=== PATIENT | male | born 1955 | race Caucasian/White ===

== ENCOUNTER 2015-10-15 21:12 | Inpatient (IN) | payer MEDICAID, OTHER ==
[~2015-10-15] VITALS: Ht 188 cm; Wt 82.5 kg
[~2015-10-15 21:12] MED LIST: ATOR80TA41 PO; CARV6.25 PO; CEPH500C3 PO; CLIN150 PO; ECASA81 PO; ENAL5 PO; FURO20 PO; ISOS60 PO; KCL20 PO; LACT PO; LEVEMIR SQ; MAGN400 PO; TICA90 PO
[2015-10-15 21:17] VITALS: BP 162/108; PULSE 96; RESP 18; TEMP 97.8; O2SAT 98
[2015-10-15] MEDS ORDERED: SODIUM CHLOR 0.9% 1000 ML INJ 1,000 ML IV SCH ×2 (21:20→23:30)
[2015-10-15 21:25] VITALS: O2SAT 100
[2015-10-15 21:26] VITALS: RESP 18; O2SAT 99
[2015-10-15] MEDS ORDERED: SODIUM CHLORIDE 0.9% FLUSH 5 ML FLUSH IVF PRN (21:30)
[2015-10-15 21:33] LABS: BLOOD GAS BASE EXCESS -1.2 mmol/L (-2-2); BLOOD GAS CARBOXYHEMOGLOBIN 1.5 % (0-4); BLOOD GAS HCO3 23 mmol/L (22-26); BLOOD GAS METHEMOGLOBIN 1.9 % (0-2); BLOOD GAS O2 HGB SATURATION 94 % (90-100); BLOOD GAS OXYGEN CONTENT 14.5 Vol % (12.0-20.0); BLOOD GAS PCO2 37 mmHg (38-42); BLOOD GAS PO2 86 mmHG (61-120); BLOOD GAS TOTAL HGB 10.9 G/DL (12.0-16.0); CRITICAL VALUE NO; DRAW SITE RT RADIAL; LITER FLOW 2 L/M; NUMBER OF ARTERIAL PUNCTURES 1; OXYGEN DEVICE NASAL CANNULA; STAT YES; TEMP CORR TO 98.6; ULNAR PULSE PRESENT
[2015-10-15 21:43] LABS: BASOPHIL # 0.1 TH/MM3 (0-0.2); BASOPHIL % 0.5 % (0.0-2.0); EOSINOPHIL # 0.2 TH/MM3 (0-0.4); EOSINOPHIL % 2.4 % (0.0-4.0); HEMATOCRIT 32.4 % (39.0-51.0); HEMO FLAGS DIFF FINAL; LYMPH % 8.6 % (9.0-44.0); LYMPHOCYTE # 0.9 TH/MM3 (1.0-4.8); MEAN CORPUSCULAR HEMOGLOBIN 26.7 PG (27.0-34.0); MEAN CORPUSCULAR HGB CONC 31.8 % (32.0-36.0); MONO % 8.9 % (0.0-8.0); NEUT % 79.6 % (16.0-70.0); PLATELET COUNT 168 TH/MM3 (150-450); RED BLOOD COUNT 3.86 MIL/MM3 (4.50-5.90); RED CELL DISTRIBUTION WIDTH 15.1 % (11.6-17.2)
[2015-10-15 21:53] LABS: INTERNATIONAL NORMALIZED RATIO 1.3 RATIO; PROTHROMBIN TIME - PATIENT 13.1 SEC (9.8-11.4)
--- NOTE | 2015-10-15 21:53 | RADRPT ---
EXAM DATE/TIME: 10/15/2015 21:36 [facility] COMPARISON: CHEST SINGLE AP, September 12, 2015, 3:05. INDICATIONS : Shortness of breath. MEDICAL HISTORY : Cardiovascular disease. Congestive heart failure. Hypertension SURGICAL HISTORY : CABG. ENCOUNTER: Initial ACUITY: 1 day PAIN SCORE: 0/10 LOCATION: Bilateral chest FINDINGS: Moderate severity cardiomegaly is similar to prior examination. There is indistinctness of the centr al bronchopulmonary markings and some peribronchial thickening. No focal areas of consolidation is s een. Both hemidiaphragms are well delineated. Evidence of prior median sternotomy with displacement and discontinuity of the superior sternal wire suture. CONCLUSION: Stable cardiomegaly. Engorgement of the central bronchopulmonary markings suggests possible pulmonar y venous hypertension. No consolidative infiltrates seen. Daryl Varner MD on October 15, 2015 at 21:50 Board Certified Radiologist. This report was verified electronically.
--- NOTE | 2015-10-15 21:54 | PD ---
HPI Chief Complaint: Altered Mental Status Time Seen by Provider: 21:21 Travel History International Travel<30 days: No Contact w/Intl Traveler<30days: No Traveled to known affect area: No History of Present Illness HPI This is a 60 years old male with unknown past medical history who presents today by [facility] with complaint of altered mental status after he was found on the floor in the house by family member. Per [facility] report patient's GCS was 14 on arrival. After patient received oxygen and IV fluids he seems to improve to GCS of 15. The [facility] noted that the patient lives in very poor home environment. Strong urine smell present. Per family members patient was found on the floor next to the liter box 1 hour prior to EMS arrival. On arrival patient was awake and alert. Patient and family members are unable to specifically state how long patient being on the floor. On my evaluation patient appears awake and alert but not oriented. He does not remember the time or the mechanism of the fall. Patient denies pain. He appears to be short of breath with Kussmaul type breathing. However patient denies difficulty breathing. Per EMS report BG [id number], rest of the vital signs stable. 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 Left lower extremity with ulcer and skin bullae present, appears infected. No fevers on initial evaluation. Patient has mid chest scar possibly from previous cardiac surgery. No trauma to the head. PFSH Past Medical History Arthritis: No Asthma: No Anxiety: No Depression: No Heart Rhythm Problems: No Cancer: No Cardiovascular Problems: Yes (HTN) High Cholesterol: Yes Chest Pain: Yes Congestive Heart Failure: Yes COPD: No Cerebrovascular Accident: No Coronary Artery Disease: Yes Diabetes: Yes Diminished Hearing: No Endocrine: Yes GERD: No Genitourinary: Yes Hepatitis: No Hiatal Hernia: No Hypertension: Yes Immune Disorder: No Implanted Vascular Access Dvce: Yes Kidney Stones: Yes Musculoskeletal: No Neurologic: No Psychiatric: No Reproductive: No Respiratory: Yes Migraines: No Myocardial Infarction: Yes Renal Failure: No Seizures: No Sleep Apnea: No Thyroid Disease: No Past Surgical History Abdominal Surgery: No AICD: No Arteriovenous Shunt: No Body Medical Devices: PLASTIC IN THROAT,STERNAL WIRES Cardiac Surgery: Yes (cabg x4 2003,stent 2013) Coronary Artery Bypass Graft: Yes (x 4 02/01) Ear Surgery: No Endocrine Surgery: No Eye Surgery: No Genitourinary Surgery: No Gynecologic Surgery: No Insulin Pump: No Joint Replacement: No Neurologic Surgery: No Oral Surgery: Yes Pacemaker: No Thoracic Surgery: Yes Other Surgery: Yes (BKA right leg) Family History Family Hypercholesterolemia: Yes Social History Alcohol Use: No Tobacco Use: No Substance Use: No Allergies-Medications (Allergen,Severity, Reaction): Coded Allergies: Pen-Vee K (Verified Allergy, Severe, THROAT SWELLS, 09/12/15) Penicillin (Verified Allergy, Unknown, SWELLING, 09/12/15) Uncoded Allergies: aspartame (Adverse Reaction, Severe, severe nose bleed, 10/24/13) Reported Meds & Prescriptions Reported Meds & Active Scripts Active Lactinex (Lactobacillus Acidophilus) 1 Tab Tab 1 Tab PO BID 31 Days Lasix 20 Mg Tab (Furosemide) 20 Mg Tab 20 Mg PO BID@09,18 31 Days Lipitor 80 Mg Tab (Atorvastatin) 80 Mg Tab 80 Mg PO DAILY 31 Days Levemir (Insulin Detemir) Inj 10 Units SQ HS 31 Days Kcl 20 Meq Tab (Potassium Chloride) 20 Meq Tabcr 20 Meq PO BID 30 Days Mag-Ox 400 Mg Tab (Magnesium Oxide) 400 Mg Tab 400 Mg PO Q12HR 30 Days Vasotec 5 Mg Tab (Enalapril Maleate) 5 Mg Tab 2.5 Mg PO BID 30 Days Ecotrin (Aspirin) 81 Mg Tabec 81 Mg PO DAILY 30 Days Imdur 60 Mg (Isosorbide Mononitrate) 60 Mg Tabcr 60 Mg PO DAILY@07 30 Days Coreg 6.25 mg (Carvedilol) 6.25 Mg Tab 12.5 Mg PO Q12HR 30 Days Review of Systems ROS negative x 10: except as stated in HPI Physical Exam Narrative GENERAL: Awake, alert, semi-oriented. Very poor hygiene, strong urine smell present. Cat litter allover patient's body. Patient is in mild respiratory discomfort, he is having Kussmaul type breathing. Vital signs reviewed O2 98% on 2L oxygen. SKIN: No rashes, ecchymoses or lesions. Cool and dry. Mid chest vertical well healed scar. HEAD: Atraumatic. Normocephalic. No temporal or scalp tenderness. EYES: Pupils equal round and reactive. Extraocular motions intact. No scleral icterus. No injection or drainage. ENT: Nose without bleeding, purulent drainage or septal hematoma. Throat without erythema, tonsillar hypertrophy or exudate. Uvula midline. Airway patent. NECK: Trachea midline. No JVD or lymphadenopathy. Supple, nontender, no meningeal signs. CARDIOVASCULAR: Regular rate and rhythm without murmurs, gallops, or rubs. RESPIRATORY: Clear to auscultation. Breath sounds equal bilaterally. No wheezes , rales, or rhonchi. Heavy and fast lip breathing GASTROINTESTINAL: Abdomen obese, soft, non-tender, nondistended. No hepato- splenomegaly, or palpable masses. No guarding. MUSCULOSKELETAL: Right BKA; nonhealing open wound to anterior left lower extremity anterior johnson NEUROLOGICAL: Awake, alert, semi-oriented. He is able to state year and month, full name correctly. Unable to recall events leading to ER visit. Normal speech. Cranial nerves II-XII are grossly intact. Normal symmetrical facial movements, no facial droop. No arms drift or limbs ataxia. Normal finger to nose test bilateral. Pinprick tests normal to arms, legs and face. No dysarthria noted. Motor and sensory grossly within normal limits. Data Data Last Documented VS Vital Signs Date Time Temp Pulse Resp B/P Pulse Ox O2 Delivery O2 Flow Rate FiO2 10/15/15 21:26 18 99 Nasal Cannula 2 10/15/15 21:17 97.8 96 162/108 Orders Electrocardiogram (10/15/15 21:17) Complete Blood Count With Diff (10/15/15 21:17) Comprehensive Metabolic Panel (10/15/15 21:17) Creatine Kinase (Cpk) (10/15/15 21:17) Ckmb (Isoenzyme) Profile (10/15/15 21:17) Troponin I (10/15/15 21:17) Prothrombin Time / Inr (Pt) (10/15/15 21:17) Arterial Blood Gas (Abg) (10/15/15 21:17) Blood Culture (10/15/15 21:17) Urinalysis - C+S If Indicated (10/15/15 21:17) Thyroid Stimulating Hormone (10/15/15 21:17) Wound Culture And Gram Stain (10/15/15 21:17) Chest, Single Ap (10/15/15 21:17) Ct Brain W/O Iv Contrast(Rout) (10/15/15 21:17) Iv Access Insert/Monitor (10/15/15 21:17) Ecg Monitoring (10/15/15 21:17) Oxygen Administration (10/15/15 21:17) Oximetry (10/15/15 21:17) Lactic Acid (10/15/15 21:17) Sodium Chlor 0.9% 1000 Ml Inj (Ns 1000 M (10/15/15 21:20) Sodium Chloride 0.9% Flush (Ns Flush) (10/15/15 21:30) Cath For Specimen (10/15/15 21:21) CKMB (10/15/15 21:25) CKMB% (10/15/15 21:25) Labs Laboratory Tests Test 10/15/15 10/15/15 10/15/15 21:22 21:25 22:15 Blood Gas Puncture Site RT RADIAL Blood Gas Patient Temperature 98.6 Blood Gas HCO3 23 mmol/L Blood Gas Base Excess -1.2 mmol/L Blood Gas Oxygen Saturation 94 % Arterial Blood pH 7.41 Arterial Blood Partial 37 mmHg Pressure CO2 Arterial Blood Partial 86 mmHG Pressure O2 Arterial Blood Oxygen Content 14.5 Vol % Arterial Blood 1.5 % Carboxyhemoglobin Arterial Blood Methemoglobin 1.9 % Blood Gas Hemoglobin 10.9 G/DL Oxygen Delivery Device NASAL CANNULA Blood Gas Liter Flow 2 L/M White Blood Count 10.0 TH/MM3 Red Blood Count 3.86 MIL/MM3 Hemoglobin 10.3 GM/DL Hematocrit 32.4 % Mean Corpuscular Volume 84.0 FL Mean Corpuscular Hemoglobin 26.7 PG Mean Corpuscular Hemoglobin 31.8 % Concent Red Cell Distribution Width 15.1 % Platelet Count 168 TH/MM3 Mean Platelet Volume 8.4 FL Neutrophils (%) (Auto) 79.6 % Lymphocytes (%) (Auto) 8.6 % Monocytes (%) (Auto) 8.9 % Eosinophils (%) (Auto) 2.4 % Basophils (%) (Auto) 0.5 % Neutrophils # (Auto) 8.0 TH/MM3 Lymphocytes # (Auto) 0.9 TH/MM3 Monocytes # (Auto) 0.9 TH/MM3 Eosinophils # (Auto) 0.2 TH/MM3 Basophils # (Auto) 0.1 TH/MM3 CBC Comment DIFF FINAL Differential Comment Prothrombin Time 13.1 SEC Prothromb Time International 1.3 RATIO Ratio Sodium Level 147 MEQ/L Potassium Level 3.8 MEQ/L Chloride Level 113 MEQ/L Carbon Dioxide Level 25.6 MEQ/L Anion Gap 8 MEQ/L Blood Urea Nitrogen 22 MG/DL Creatinine 1.78 MG/DL Estimat Glomerular Filtration 39 ML/MIN Rate Random Glucose 157 MG/DL Lactic Acid Level 1.8 mmol/L Calcium Level 7.7 MG/DL Total Bilirubin 0.7 MG/DL Aspartate Amino Transf 25 U/L (AST/SGOT) Alanine Aminotransferase 19 U/L (ALT/SGPT) Alkaline Phosphatase 87 U/L Total Creatine Kinase 883 U/L Creatine Kinase MB 4.4 NG/ML Creatine Kinase MB % 0.5 % Troponin I 0.13 NG/ML Total Protein 6.1 GM/DL Albumin 2.8 GM/DL Thyroid Stimulating Hormone 2.720 uIU/ML 3rd Gen Urine Color YELLOW Urine Turbidity HAZY Urine pH 6.0 Urine Specific Bradley 1.027 Urine Protein 300 mg/dL Urine Glucose (UA) TRACE mg/dL Urine Ketones NEG mg/dL Urine Occult Blood MOD Urine Nitrite NEG Urine Bilirubin NEG Urine Urobilinogen LESS THAN 2.0 MG/DL Urine Leukocyte Esterase NEG Urine RBC 2 /hpf Urine WBC 2 /hpf Urine Squamous Epithelial 1 /hpf Cells Urine Calcium Oxalate Crystals FEW /hpf Urine Bacteria RARE /hpf Urine Hyaline Casts 10 /lpf Urine Mucus FEW /lpf Microscopic Urinalysis Comment CULT NOT INDICATED MDM Medical Decision Making Medical Screen Exam Complete: Yes Emergency Medical Condition: Yes Medical Record Reviewed: Yes Interpretation(s) Last Impressions Head CT 10/15/152116 Signed Impressions: Service Date/Time: September 21:47 - CONCLUSION: 1. No evidence of hemorrhage or mass effect. 2. Lacunar infarct right thalamus, left basal ganglia and adjacent to the left lateral ventricular body. 3. No skull fracture seen. Daryl Varner MD Chest X-Ray 10/15/152116 Signed Impressions: Service Date/Time: September 21:36 - CONCLUSION: Stable cardiomegaly. Engorgement of the central bronchopulmonary markings suggests possible pulmonary venous hypertension. No consolidative infiltrates seen. Daryl Varner MD Laboratory Tests Test 10/15/15 10/15/15 10/15/15 21:22 21:25 22:15 Blood Gas Puncture Site RT RADIAL Blood Gas Patient Temperature 98.6 Blood Gas HCO3 23 mmol/L Blood Gas Base Excess -1.2 mmol/L Blood Gas Oxygen Saturation 94 % Arterial Blood pH 7.41 Arterial Blood Partial 37 mmHg Pressure CO2 Arterial Blood Partial 86 mmHG Pressure O2 Arterial Blood Oxygen Content 14.5 Vol % Arterial Blood 1.5 % Carboxyhemoglobin Arterial Blood Methemoglobin 1.9 % Blood Gas Hemoglobin 10.9 G/DL Oxygen Delivery Device NASAL CANNULA Blood Gas Liter Flow 2 L/M White Blood Count 10.0 TH/MM3 Red Blood Count 3.86 MIL/MM3 Hemoglobin 10.3 GM/DL Hematocrit 32.4 % Mean Corpuscular Volume 84.0 FL Mean Corpuscular Hemoglobin 26.7 PG Mean Corpuscular Hemoglobin 31.8 % Concent Red Cell Distribution Width 15.1 % Platelet Count 168 TH/MM3 Mean Platelet Volume 8.4 FL Neutrophils (%) (Auto) 79.6 % Lymphocytes (%) (Auto) 8.6 % Monocytes (%) (Auto) 8.9 % Eosinophils (%) (Auto) 2.4 % Basophils (%) (Auto) 0.5 % Neutrophils # (Auto) 8.0 TH/MM3 Lymphocytes # (Auto) 0.9 TH/MM3 Monocytes # (Auto) 0.9 TH/MM3 Eosinophils # (Auto) 0.2 TH/MM3 Basophils # (Auto) 0.1 TH/MM3 CBC Comment DIFF FINAL Differential Comment Prothrombin Time 13.1 SEC Prothromb Time International 1.3 RATIO Ratio Sodium Level 147 MEQ/L Potassium Level 3.8 MEQ/L Chloride Level 113 MEQ/L Carbon Dioxide Level 25.6 MEQ/L Anion Gap 8 MEQ/L Blood Urea Nitrogen 22 MG/DL Creatinine 1.78 MG/DL Estimat Glomerular Filtration 39 ML/MIN Rate Random Glucose 157 MG/DL Lactic Acid Level 1.8 mmol/L Calcium Level 7.7 MG/DL Total Bilirubin 0.7 MG/DL Aspartate Amino Transf 25 U/L (AST/SGOT) Alanine Aminotransferase 19 U/L (ALT/SGPT) Alkaline Phosphatase 87 U/L Total Creatine Kinase 883 U/L Creatine Kinase MB 4.4 NG/ML Creatine Kinase MB % 0.5 % Troponin I 0.13 NG/ML Total Protein 6.1 GM/DL Albumin 2.8 GM/DL Thyroid Stimulating Hormone 2.720 uIU/ML 3rd Gen Urine Color YELLOW Urine Turbidity HAZY Urine pH 6.0 Urine Specific Bradley 1.027 Urine Protein 300 mg/dL Urine Glucose (UA) TRACE mg/dL Urine Ketones NEG mg/dL Urine Occult Blood MOD Urine Nitrite NEG Urine Bilirubin NEG Urine Urobilinogen LESS THAN 2.0 MG/DL Urine Leukocyte Esterase NEG Urine RBC 2 /hpf Urine WBC 2 /hpf Urine Squamous Epithelial 1 /hpf Cells Urine Calcium Oxalate Crystals FEW /hpf Urine Bacteria RARE /hpf Urine Hyaline Casts 10 /lpf Urine Mucus FEW /lpf Microscopic Urinalysis Comment CULT NOT INDICATED Differential Diagnosis Sepsis versus pneumonia versus CVA versus CHF exacerbation versus ACS versus dehydration versus electrolyte abnormalities versus intracranial abnormalities versus hypoglycemia versus rhabdomyolysis versus CKD versus UTI Narrative Course Per EMR review patient has history of diabetes, CHF, he is noncompliant with medications. He also was admitted in August of this year for the left lower extremity diabetic ulcer. Blood work initiated and includes CBC, CMP, CPK, lactic acid, blood cultures and ABG ordered. Wound cultures collected from the left lower extremity. Chest x-ray and CT head without IV contrast ordered. EKG showed sinus rhythm with ventricular rate 94, no ST elevations. ABG showed pH 7.4, carbon dioxide 37, otherwise normal. CBC revealed no leukocytosis WBC 10.0. Lactic acid 1.8. Coagulation panel unremarkable. Chest x-ray showed stable cardiomegaly, possible pulmonary hypertension. CT head with 3 areas of lacunar infarct, possibly old when compared to the previous imaging, otherwise no acute hemorrhage or mass. CPK elevated 883, troponin elevated 0.13. Creatinine seems to be at the patient 's baseline 1.78. I have discussed this case with my attending physician Dr. Momin who is aware of patient's history, findings and agreed with plan to admit patient to inpatient services for further evaluation. Admitting physician paged. Admitting Information Admitting Physician Requests: Admit Diagnosis: mild rabdo, elevated troponin, generalized weakness, fall Ameena Castillo Oct 15, 2015 21:54
[2015-10-15 22:07] LABS: ANION GAP 8 MEQ/L (5-15); AST (GOT) 25 U/L (15-37); BICARBONATE 25.6 MEQ/L (21.0-32.0); BLOOD UREA NITROGEN 22 MG/DL (7-18); CHLORIDE 113 MEQ/L (98-107); GLOMERULAR FILTRATION RATE 39 ML/MIN (>89); POTASSIUM 3.8 MEQ/L (3.5-5.1); SODIUM (NA) 147 MEQ/L (136-145)
[2015-10-15 22:17] LABS: ALKALINE PHOSPHATASE 87 U/L (45-117); ALT (GPT) 19 U/L (12-78); CREATINE KINASE 883 U/L (39-308); TOTAL BILIRUBIN ADULT 0.7 MG/DL (0.2-1.0)
--- NOTE | 2015-10-15 22:20 | RADRPT ---
EXAM DATE/TIME: 10/15/2015 21:47 [facility] COMPARISON: CT BRAIN W/O CONTRAST, December 18, 2014, 2:54. INDICATIONS : Fall last night. RADIATION DOSE: 50.12 CTDIvol (mGy) MEDICAL HISTORY : Hypertension. SURGICAL HISTORY : None. ENCOUNTER: Initial ACUITY: 1 day PAIN SCALE: 0/10 LOCATION: cranial TECHNIQUE: Multiple contiguous axial images were obtained of the head. Using automated exposure control and adj ustment of the mA and/or kV according to patient size, radiation dose was kept as low as reasonably a chievable to obtain optimal diagnostic quality images. FINDINGS: CEREBRUM: The ventricles and sulci are prominent characteristic of diffuse central and cortical atrophy, stable in severity from prior exam. There are 3 new focal areas of low density present, right medial thala mus, left basal ganglia and along the left margin of the body of the lateral ventricle causing ex vac uo enlargement of the ventricular wall; his findings suggest old infarctions which have occurred sinc e the prior examination November 2014. No evidence of acute blood products or mass effect. No extra-a xial fluid collections. POSTERIOR FOSSA: The cerebellum and brainstem are intact. The 4th ventricle is midline. The cerebellopontine angle i s unremarkable. EXTRACRANIAL: The visualized portion of the orbits is intact. Minimal mucosal thickening in both maxillary sinuses without air-fluid levels. The maxillary sinus disease is similar in appearance to prior CT. SKULL: The calvaria is intact. No evidence of skull fracture. CONCLUSION: 1. No evidence of hemorrhage or mass effect. 2. Lacunar infarct right thalamus, left basal ganglia and adjacent to the left lateral ventricular harman dy. 3. No skull fracture seen. Daryl Varner MD on October 15, 2015 at 22:14 Board Certified Radiologist. This report was verified electronically.
[2015-10-15 22:30] LABS: CKMB 4.4 NG/ML (0.5-3.6)
[2015-10-15 22:41] LABS: BACTERIA, URINE RARE /hpf; BLOOD, URINE MOD (NEG); CALCIUM OXALATE CRYSTALS,URINE FEW /hpf; COMMENT (UR) CULT NOT INDICATED; CULTURE IF INDICATED CULT NOT INDICATED; GLUCOSE,URINE TRACE mg/dL (NEG); HYALINE CAST, URINE 10 /lpf (RARE); KETONE, URINE NEG (NEG); MUCUS URINE FEW /lpf (OCC); NITRITE,URINE NEG (NEG); SQUAMOUS EPITHELIAL CELL URINE 1 /hpf (0-5); URINE COLOR YELLOW (YELLW/STRAW)
[2015-10-15 23:00] VITALS: BP 159/85; PULSE 95; RESP 18; O2SAT 93
[2015-10-15 23:19] LABS: MEAN CORPUSCULAR HGB CONC 30.7 % (32.0-36.0)
--- NOTE | 2015-10-15 23:24 | HHI.HP ---
HPI Service [facility] Primary Care Physician Unknown Admission Diagnosis mild rabdo, elevated troponin, generalized weakness, fall Diagnoses: Chief Complaint: Fall, confusion. Travel History International Travel<30 Days: No Contact w/Intl Traveler <30 Da: No Traveled to Known Affected Are: No History of Present Illness Mr. Amado is a 60 year old male with a history of ischemic cardiomyopathy (EF 35-40%), CABG, stent placement who was found on the floor by family members and subsequently brought to the ED for altered mental status. GCS 14 on arrival, improved to 15 with oxygen and IV fluids. Per EMS, patient's living condition at home is very poor. Patient is alert, oriented to self and place. He is unable to give any meaningful history. He denies any chest pain, SOB, fever, chills. On arrival, BP 162/108, RR 18, Pulse 96, T 97.8, 96-98% saturation on 2L of O2 via nasal cannula. CBC shows wbc 10, Hgb 10.3, Hct 32.4, Plt 168. BMP shows Na 147, K+ 3.8, BUN 22, Creatinine 1.78, Glucose 157, CPK 883, troponin 0.13. Head CT was unremarkable for acute findings. Cardiac history: - 12/18/2014 cardiac catheter status post stent placement 2.512 mm to proximal left circumflex - 04/30/2015 Echocardiogram EF 35-40% diffuse hypokinesis area Review of Systems ROS Limitations: Clinical Condition, Altered Mental Status (Reliable ROS cannot be obtained because patient is lethargic, drowsy. ) Past Family Social History Past Medical History Coronary artery disease Hypertension Hyperlipidemia Diabetes mellitus Congestive heart failure Obesity Peripheral arterial disease Obstructive sleep apnea Past Surgical History CABG 4 vessel Left kidney stent Patient had a trach as a child Right BKA Allergies: Coded Allergies: Pen-Vee K (Verified Allergy, Severe, THROAT SWELLS, 10/15/15) Penicillin (Verified Allergy, Unknown, SWELLING, 10/15/15) Uncoded Allergies: aspartame (Adverse Reaction, Severe, severe nose bleed, 10/24/13) Family History non contributory. Social History No tobacco, alcohol, drugs Physical Exam Vital Signs Vital Signs Date Time Temp Pulse Resp B/P Pulse Ox O2 Delivery O2 Flow Rate FiO2 10/15/15 23:00 95 18 159/85 93 Room Air 10/15/15 21:26 18 99 Nasal Cannula 2 10/15/15 21:25 98 Nasal Cannula 2 10/15/15 21:17 97.8 96 18 162/108 98 Physical Exam GENERAL: This is a well-nourished, well-developed patient, in no apparent distress. SKIN: No rashes, ecchymoses or lesions. Cool and dry. HEAD: Atraumatic. Normocephalic. No temporal or scalp tenderness. EYES: Pupils equal round and reactive. No scleral icterus. No injection or drainage. ENT: Nose without bleeding, purulent drainage or septal hematoma. Airway patent. NECK: Trachea midline. No JVD or lymphadenopathy. Supple, nontender, no meningeal signs. CARDIOVASCULAR: Regular rate and rhythm without murmurs, gallops, or rubs. RESPIRATORY: Clear to auscultation. Breath sounds equal bilaterally. No wheezes , rales, or rhonchi. GASTROINTESTINAL: Abdomen soft, non-tender, nondistended. No guarding. MUSCULOSKELETAL: Extremities without clubbing, cyanosis. Right BKA noted. Left lower ext with cellulitis, draining. NEUROLOGICAL: Awake and alert. Cranial nerves II through XII intact. No focal deficits. Normal speech. Laboratory Laboratory Tests Test 10/15/15 10/15/15 10/15/15 21:22 21:25 22:15 Blood Gas Puncture Site RT RADIAL Blood Gas Patient Temperature 98.6 Blood Gas HCO3 23 Blood Gas Base Excess -1.2 Blood Gas Oxygen Saturation 94 Arterial Blood pH 7.41 Arterial Blood Partial 37 Pressure CO2 Arterial Blood Partial 86 Pressure O2 Arterial Blood Oxygen Content 14.5 Arterial Blood 1.5 Carboxyhemoglobin Arterial Blood Methemoglobin 1.9 Blood Gas Hemoglobin 10.9 Oxygen Delivery Device NASAL CANNULA Blood Gas Liter Flow 2 White Blood Count 10.0 Red Blood Count 3.86 Hemoglobin 10.3 Hematocrit 32.4 Mean Corpuscular Volume 84.0 Mean Corpuscular Hemoglobin 26.7 Mean Corpuscular Hemoglobin 31.8 Concent Red Cell Distribution Width 15.1 Platelet Count 168 Mean Platelet Volume 8.4 Neutrophils (%) (Auto) 79.6 Lymphocytes (%) (Auto) 8.6 Monocytes (%) (Auto) 8.9 Eosinophils (%) (Auto) 2.4 Basophils (%) (Auto) 0.5 Neutrophils # (Auto) 8.0 Lymphocytes # (Auto) 0.9 Monocytes # (Auto) 0.9 Eosinophils # (Auto) 0.2 Basophils # (Auto) 0.1 CBC Comment DIFF FINAL Differential Comment Prothrombin Time 13.1 Prothromb Time International 1.3 Ratio Sodium Level 147 Potassium Level 3.8 Chloride Level 113 Carbon Dioxide Level 25.6 Anion Gap 8 Blood Urea Nitrogen 22 Creatinine 1.78 Estimat Glomerular Filtration 39 Rate Random Glucose 157 Lactic Acid Level 1.8 Calcium Level 7.7 Total Bilirubin 0.7 Aspartate Amino Transf 25 (AST/SGOT) Alanine Aminotransferase 19 (ALT/SGPT) Alkaline Phosphatase 87 Total Creatine Kinase 883 Creatine Kinase MB 4.4 Creatine Kinase MB % 0.5 Troponin I 0.13 Total Protein 6.1 Albumin 2.8 Thyroid Stimulating Hormone 2.720 3rd Gen Urine Color YELLOW Urine Turbidity HAZY Urine pH 6.0 Urine Specific [place] 1.027 Urine Protein 300 Urine Glucose (UA) TRACE Urine Ketones NEG Urine Occult Blood MOD Urine Nitrite NEG Urine Bilirubin NEG Urine Urobilinogen LESS THAN 2.0 Urine Leukocyte Esterase NEG Urine RBC 2 Urine WBC 2 Urine Squamous Epithelial 1 Cells Urine Calcium Oxalate Crystals FEW Urine Bacteria RARE Urine Hyaline Casts 10 Urine Mucus FEW Microscopic Urinalysis Comment CULT NOT INDICATED Date/Time Procedure Status Source Growth 10/15/15 21:40 Aerobic Blood Culture Received Blood Peripheral Pending 10/15/15 21:40 Anaerobic Blood Culture Received Blood Peripheral Pending 10/15/15 21:20 Gram Stain Received Wound Leg Pending 10/15/15 21:20 Wound Culture Received Wound Leg Pending Result Diagram: 10/15/15212410/15/152124 Imaging Last Impressions Head CT 10/15/152116 Signed Impressions: Service Date/Time: September 21:47 - CONCLUSION: 1. No evidence of hemorrhage or mass effect. 2. Lacunar infarct right thalamus, left basal ganglia and adjacent to the left lateral ventricular body. 3. No skull fracture seen. Daryl Varner MD Chest X-Ray 10/15/152116 Signed Impressions: Service Date/Time: September 21:36 - CONCLUSION: Stable cardiomegaly. Engorgement of the central bronchopulmonary markings suggests possible pulmonary venous hypertension. No consolidative infiltrates seen. Daryl Varner MD Assessment and Plan Problem List: (1) Altered mental status Status: Acute (2) Cellulitis Status: Acute (3) Non-ST elevation PR (NSTEMI) Status: Acute (4) Ischemic cardiomyopathy Status: Acute (5) Diabetes mellitus type 2 in obese Status: Acute (6) S/P BKA (below knee amputation) unilateral Status: Acute Assessment and Plan Mr. Amdao is a 60 year old male with a history of DM, ischemic cardiomyopathy who was brought to the hospital after he was unresponsive on the floor. CT head is unremarkable for any acute findings. Troponin 0.13. No chest pain. - Acute mental status change - Per ED, GCS improved to 15 with supportive treatments. - Patient is now alert, oriented to person and place. May benefit from placement. - Cellulitis of the left lower ext. - Purulent skin lesions on the left lower ext. - Will start patient on Vancomycin - pharmacy to dose. - NSTEMI - No chest pain. Likely due to non-cardiac reasons. We will follow two more troponins. - Diabetes mellitus - Long acting insulin and PRN sliding scale insulin. Full code. Heparin SQ. Physician Certification 2 Midnight Certification Type: Admission for Inpatient Services Order for Inpatient Services The services are ordered in accordance with Medicare regulations or non- Medicare payer requirements, as applicable. In the case of services not specified as inpatient-only, they are appropriately provided as inpatient services in accordance with the 2-midnight benchmark. Estimated LOS (days): 2 days is the estimated time the patient will need to remain in the hospital, assuming treatment plan goals are met and no additional complications. Post-Hospital Plan: Home Bacilio Carr DO Oct 15, 2015 23:24
[2015-10-15] MEDS ORDERED: ONDANSETRON HCL 4 MG/2 ML VIAL IVP PRN (23:30)
[2015-10-15] MEDS ORDERED: BISACODYL 10 MG SUPP PR PRN (23:30)
[2015-10-15] MEDS ORDERED: MAGNESIUM HYDROXIDE SUSP 30 ML CUP PO PRN (23:30)
[2015-10-15] MEDS ORDERED: SODIUM CHLORIDE 0.9% FLUSH 5 ML FLUSH FLUSH PRN (23:30)
[2015-10-15] MEDS ORDERED: NALOXONE HCL 0.4 MG/ML AMP IV PRN (23:30)
[2015-10-16] VITALS (9 sets, daily range): BP systolic 117–175; BP diastolic 67–104; PULSE 73–99; RESP 17–24; TEMP 96.2–98.4; O2SAT 96–100
--- NOTE | 2015-10-16 00:17 | PD ---
Physical Exam Date Seen by Provider: Oct 15, 2015 Narrative Please see physician emergency room physician assistant's documentation. Briefly this is a 60-year-old male who fell yesterday and unfortunately was on the floor until tonight. He presents via EMS. Data Data Last Documented VS Vital Signs Date Time Temp Pulse Resp B/P Pulse Ox O2 Delivery O2 Flow Rate FiO2 10/15/15 23:00 95 18 159/85 93 Room Air 10/15/15 21:26 2 10/15/15 21:17 97.8 Orders Electrocardiogram (10/15/15 21:17) Complete Blood Count With Diff (10/15/15 21:17) Comprehensive Metabolic Panel (10/15/15 21:17) Creatine Kinase (Cpk) (10/15/15 21:17) Ckmb (Isoenzyme) Profile (10/15/15 21:17) Troponin I (10/15/15 21:17) Prothrombin Time / Inr (Pt) (10/15/15 21:17) Arterial Blood Gas (Abg) (10/15/15 21:17) Blood Culture (10/15/15 21:17) Urinalysis - C+S If Indicated (10/15/15 21:17) Thyroid Stimulating Hormone (10/15/15 21:17) Wound Culture And Gram Stain (10/15/15 21:17) Chest, Single Ap (10/15/15 21:17) Ct Brain W/O Iv Contrast(Rout) (10/15/15 21:17) Iv Access Insert/Monitor (10/15/15 21:17) Ecg Monitoring (10/15/15 21:17) Oxygen Administration (10/15/15 21:17) Oximetry (10/15/15 21:17) Lactic Acid (10/15/15 21:17) Sodium Chlor 0.9% 1000 Ml Inj (Ns 1000 M (10/15/15 21:20) Sodium Chloride 0.9% Flush (Ns Flush) (10/15/15 21:30) Cath For Specimen (10/15/15 21:21) CKMB (10/15/15 21:25) CKMB% (10/15/15 21:25) Admit Order (Ed Use Only) (10/15/15 23:14) Labs Laboratory Tests Test 10/15/15 10/15/15 10/15/15 21:22 21:25 22:15 Blood Gas Puncture Site RT RADIAL Blood Gas Patient Temperature 98.6 Blood Gas HCO3 23 mmol/L Blood Gas Base Excess -1.2 mmol/L Blood Gas Oxygen Saturation 94 % Arterial Blood pH 7.41 Arterial Blood Partial 37 mmHg Pressure CO2 Arterial Blood Partial 86 mmHG Pressure O2 Arterial Blood Oxygen Content 14.5 Vol % Arterial Blood 1.5 % Carboxyhemoglobin Arterial Blood Methemoglobin 1.9 % Blood Gas Hemoglobin 10.9 G/DL Oxygen Delivery Device NASAL CANNULA Blood Gas Liter Flow 2 L/M White Blood Count 10.0 TH/MM3 Red Blood Count 3.86 MIL/MM3 Hemoglobin 10.3 GM/DL Hematocrit 32.4 % Mean Corpuscular Volume 84.0 FL Mean Corpuscular Hemoglobin 26.7 PG Mean Corpuscular Hemoglobin 31.8 % Concent Red Cell Distribution Width 15.1 % Platelet Count 168 TH/MM3 Mean Platelet Volume 8.4 FL Neutrophils (%) (Auto) 79.6 % Lymphocytes (%) (Auto) 8.6 % Monocytes (%) (Auto) 8.9 % Eosinophils (%) (Auto) 2.4 % Basophils (%) (Auto) 0.5 % Neutrophils # (Auto) 8.0 TH/MM3 Lymphocytes # (Auto) 0.9 TH/MM3 Monocytes # (Auto) 0.9 TH/MM3 Eosinophils # (Auto) 0.2 TH/MM3 Basophils # (Auto) 0.1 TH/MM3 CBC Comment DIFF FINAL Differential Comment Prothrombin Time 13.1 SEC Prothromb Time International 1.3 RATIO Ratio Sodium Level 147 MEQ/L Potassium Level 3.8 MEQ/L Chloride Level 113 MEQ/L Carbon Dioxide Level 25.6 MEQ/L Anion Gap 8 MEQ/L Blood Urea Nitrogen 22 MG/DL Creatinine 1.78 MG/DL Estimat Glomerular Filtration 39 ML/MIN Rate Random Glucose 157 MG/DL Lactic Acid Level 1.8 mmol/L Calcium Level 7.7 MG/DL Total Bilirubin 0.7 MG/DL Aspartate Amino Transf 25 U/L (AST/SGOT) Alanine Aminotransferase 19 U/L (ALT/SGPT) Alkaline Phosphatase 87 U/L Total Creatine Kinase 883 U/L Creatine Kinase MB 4.4 NG/ML Creatine Kinase MB % 0.5 % Troponin I 0.13 NG/ML Total Protein 6.1 GM/DL Albumin 2.8 GM/DL Thyroid Stimulating Hormone 2.720 uIU/ML 3rd Gen Urine Color YELLOW Urine Turbidity HAZY Urine pH 6.0 Urine Specific [place] 1.027 Urine Protein 300 mg/dL Urine Glucose (UA) TRACE mg/dL Urine Ketones NEG mg/dL Urine Occult Blood MOD Urine Nitrite NEG Urine Bilirubin NEG Urine Urobilinogen LESS THAN 2.0 MG/DL Urine Leukocyte Esterase NEG Urine RBC 2 /hpf Urine WBC 2 /hpf Urine Squamous Epithelial 1 /hpf Cells Urine Calcium Oxalate Crystals FEW /hpf Urine Bacteria RARE /hpf Urine Hyaline Casts 10 /lpf Urine Mucus FEW /lpf Microscopic Urinalysis Comment CULT NOT INDICATED MDM Medical Record Reviewed: Yes Differential Diagnosis EKG shows sinus rhythm with a rate of 94. No acute ST elevation CBC reviewed CMP reviewedelevated sodium, chloride, creatinine. Lactate within normal limits Total creatinine kinase elevated next line troponin 0.13 TSH within normal limits ABG reviewed Urinalysis reviewed Last [address] 10/15/152116 Signed Impressions: Service Date/Time: September 21:47 - CONCLUSION: 1. No evidence of hemorrhage or mass effect. 2. Lacunar infarct right thalamus, left basal ganglia and adjacent to the left lateral ventricular body. 3. No skull fracture seen. Daryl Varner MD Chest X-Ray 10/15/152116 Signed Impressions: Service Date/Time: September 21:36 - CONCLUSION: Stable cardiomegaly. Engorgement of the central bronchopulmonary markings suggests possible pulmonary venous hypertension. No consolidative infiltrates seen. Daryl Varner MD Narrative Course I, Dr. Momin, have reviewed the advance practice practitioner's documentation and am in agreement. I met with the patient face to face, made the diagnosis, and the medical decision making was done by me. *My assessment and Findings: This is a 60-year-old male who presents after falling and being on the floor for several hours. Patient was placed on a surveillance system monitor. IV access was established. Labs, imaging were performed. Patient was given IV fluid rehydration. He denies any chest pain or shortness of breath. He will certainly need to be admitted for further evaluation and care. Admitting Information Admitting Physician Requests: Admit Diagnosis: Mild Rhabdomyolysis, Elevated Troponin, General Weakness Ashley Momin MD Oct 16, 2015 00:17
[2015-10-16] MEDS ORDERED: ASPIRIN 325 MG TAB PO ONE (00:30)
[2015-10-16] MEDS ORDERED: hydrALAZINE HCL 20 MG/ML VIAL IV PUSH ONE (00:45)
[2015-10-16] MEDS ORDERED: SODIUM CHLOR 0.9% 1000 ML INJ 1,000 ML IV SCH (02:22)
[2015-10-16] MEDS ORDERED: Vancomycin Consult Pharmacy 1 EA XX SCH (02:30)
[2015-10-16] MEDS ORDERED: VANCOMYCIN 1,500 MG/NS 500 ML IV ONE (03:00)
[2015-10-16 03:45] LABS: AUTOMATED NEUTROPHIL # 8.4 TH/MM3 (1.8-7.7); BASOPHIL % 0.2 % (0.0-2.0); EOSINOPHIL # 0.2 TH/MM3 (0-0.4); EOSINOPHIL % 2.1 % (0.0-4.0); HEMATOCRIT 37.8 % (39.0-51.0); HEMO FLAGS DIFF FINAL; LYMPH % 6.1 % (9.0-44.0); LYMPHOCYTE # 0.6 TH/MM3 (1.0-4.8); MEAN CELL VOLUME 86.1 FL (80.0-100.0); MEAN CORPUSCULAR HEMOGLOBIN 26.5 PG (27.0-34.0); MONO % 8.1 % (0.0-8.0); NEUT % 83.5 % (16.0-70.0); PLATELET COUNT 160 TH/MM3 (150-450); RED BLOOD COUNT 4.39 MIL/MM3 (4.50-5.90); RED CELL DISTRIBUTION WIDTH 15.4 % (11.6-17.2); WHITE BLOOD COUNT 10.1 TH/MM3 (4.0-11.0)
[2015-10-16 04:16] LABS: BICARBONATE 18.5 MEQ/L (21.0-32.0); POTASSIUM 3.7 MEQ/L (3.5-5.1)
[2015-10-16] MEDS: ISOSORBIDE MONONITRATE 60 MG TAB PO SCH ×2 (06:31→08:56)
[2015-10-16] MEDS: HEPARIN SODIUM - SQ 10,000 UNITS/ML VIAL SQ SCH ×2 (08:56→23:33)
[2015-10-16] MEDS: SODIUM CHLORIDE 0.9% FLUSH 5 ML FLUSH FLUSH SCH ×2 (08:56→23:33)
[2015-10-16] MEDS: ASPIRIN EC 81 MG TABEC PO SCH (08:56)
[2015-10-16] MEDS: CARVEDILOL 12.5 MG TAB PO SCH ×2 (08:56→23:33)
[2015-10-16] MEDS: ATORVASTATIN 80 MG TAB PO SCH (08:56)
[2015-10-16] MEDS ORDERED: cefTRIAXone INJ 2,000 MG in SODIUM CHLORIDE 0.9% INJ 100 ML IV SCH (18:00)
--- NOTE | 2015-10-16 18:09 | EKG ---
Date Performed: 10/15/2015 Time Performed: 22:19:22 PTAGE: 60 years EKG: Sinus rhythm . Left anterior fascicular block IV conduction defect Possible septal infarct - age undetermined Late ral ST-T changes may be due to myocardial ischemia Since previous tracing, no significant change note d Abnormal ECG PREVIOUS TRACING : 04/29/2015 20.35 DOCTOR: Yasmine Velasquez Interpretating Date/Time 10/16/2015 18:06:56
--- NOTE | 2015-10-16 19:07 | HHI.PR ---
Subjective Remarks D/w RN, pt has been alert, though mentally slow all day. Eating/drinking well. No family has been by to see him. Patient states he lives with his sister. He denies pain. Otherwise is a poor historian. He does endorse that he feels confused. Objective Vitals Vital Signs Date Time Temp Pulse Resp B/P Pulse Ox O2 Delivery O2 Flow Rate FiO2 10/16/15 16:50 98.0 75 22 117/67 100 10/16/15 12:00 96.2 81 24 122/74 98 10/16/15 10:00 82 121/74 10/16/15 08:00 98.4 96 20 175/104 99 10/16/15 03:00 96.9 99 18 165/81 99 10/16/15 01:00 92 18 166/89 96 Nasal Cannula 2 10/15/15 23:00 95 18 159/85 93 Room Air 10/15/15 21:26 18 99 Nasal Cannula 2 10/15/15 21:25 98 Nasal Cannula 2 10/15/15 21:25 100 Nasal Cannula 2.00 10/15/15 21:17 97.8 96 18 162/108 98 I/O 10/15/15 10/15/15 10/15/15 10/16/15 10/16/15 10/16/15 07:00 15:00 23:00 07:00 15:00 23:00 Intake Total 120 ml Balance 120 ml Intake Oral 120 ml # Voids 1 2 # Bowel Movements 1 Result Diagram: 10/16/15 0329 10/16/15 0329 Objective Remarks GENERAL: Dissheveled CM patient in NAD. SKIN: Warm and dry. HEAD: Normocephalic. EYES: No scleral icterus. No injection or drainage. NECK: Supple, trachea midline. No JVD or lymphadenopathy. CARDIOVASCULAR: Regular rate and rhythm without murmurs, gallops, or rubs. RESPIRATORY: Breath sounds equal bilaterally. No accessory muscle use. GASTROINTESTINAL: Abdomen soft, non-tender, nondistended. EXTREMITIES: No cyanosis, or edema. s/p remote right BKA. LLE with 1+ edema, several shallow venous stasis ulcerations, no significant cellulitis. NEUROLOGICAL: Awake, alert, and oriented to self, year. Speech and mentation slow. Non-focal; feeding himself. Poor eye contact. A/P Problem List: (1) Cellulitis Status: Acute (2) Ischemic cardiomyopathy Status: Chronic (3) Diabetes mellitus type 2 in obese Status: Chronic (4) S/P BKA (below knee amputation) unilateral Status: Chronic (5) Acute metabolic encephalopathy Status: Acute (6) Bacteremia Status: Acute (7) Chronic systolic (congestive) heart failure Status: Chronic Assessment and Plan Mr. Amado is a 60 year old male with a history of DM, ischemic cardiomyopathy who was brought to the hospital after he was unresponsive on the floor. - Cellulitis of the left lower ext. with staph coag neg bacteremia. - Chronic venous stasis ulcers on the left lower ext. . Clinically improved today cellulitis resolving. - Cont patient on Vancomycin - pharmacy to dose. Add rocephin. -collect 2 more blood cultures today. - Acute metabolic encephalopathy - Per ED, GCS improved to 15 with supportive treatments. -CT head is unremarkable for any acute findings. - Mentation still slow today - not oriented to month/place - uncertain baseline mental status? Continue treatment of underlying medical conditions -pt states he lives with sister - will need to contact family - Mild elevation of troponin without upward trend in the setting of CKD - No chest pain. Likely due to non-cardiac reasons. - CKD stage 3 associated with T2DM - stable overnight. -Metabolic acidosis due to CKD - repeat BMP a.m. -Cardiomyopathy/chronic systolic CHF LVEF 35% on echo 03/2015 - HLIV. currently no exacerbation. - Diabetes mellitus - cont long acting insulin levemir 10 units sq hs, add novolog low SSi. -PAD Full code. Heparin SQ. Tamra Suazo MD Oct 16, 2015 19:07
[2015-10-16] MEDS: INSULIN DETEMIR 100 UNITS/ML VIAL SQ SCH (23:34)
[2015-10-16] MEDS: VANCOMYCIN INJ 1,750 MG in SODIUM CHLORID 0.9% 500 ML INJ 500 ML IV SCH (23:36)
[2015-10-17] VITALS: BP 135/85; PULSE 79; RESP 18; TEMP 98.2; O2SAT 99
[2015-10-17 04:10] VITALS: BP 118/82; PULSE 73; RESP 24; TEMP 97.8; O2SAT 98
[2015-10-17] MEDS: ISOSORBIDE MONONITRATE 60 MG TAB PO SCH (06:17)
[2015-10-17] MEDS ORDERED: DEXTROSE 50% IN WATER 50 ML VIAL(D50) IV PRN (08:15)
[2015-10-17] MEDS ORDERED: GLUCAGON 1 MG/ML VIAL IM/SQ PRN (08:15)
[2015-10-17 08:44] VITALS: BP 135/94; PULSE 78; RESP 18; TEMP 96.6; O2SAT 98
[2015-10-17] MEDS: SODIUM CHLORIDE 0.9% FLUSH 5 ML FLUSH FLUSH SCH (09:00)
[2015-10-17] MEDS: HEPARIN SODIUM - SQ 10,000 UNITS/ML VIAL SQ SCH ×2 (09:05→23:08)
[2015-10-17] MEDS: ATORVASTATIN 80 MG TAB PO SCH (09:05)
[2015-10-17] MEDS: ASPIRIN EC 81 MG TABEC PO SCH (09:05)
[2015-10-17] MEDS: CARVEDILOL 12.5 MG TAB PO SCH ×2 (09:05→23:07)
[2015-10-17] MEDS: INSULIN ASPART SUPPLEMENTAL SCALE SQ SCH ×3 (10:51→21:00)
--- NOTE | 2015-10-17 11:41 | HHI.PR ---
Subjective Remarks Patient states he feels confused. He thinks he is in [place]. VSS. Pt denies pain. Objective Vitals Vital Signs Date Time Temp Pulse Resp B/P Pulse Ox O2 Delivery O2 Flow Rate FiO2 10/17/15 08:44 96.6 78 18 135/94 98 10/17/15 04:10 97.8 73 24 118/82 98 10/17/15 00:00 98.2 79 18 135/85 99 10/16/15 20:47 98 Nasal Cannula 3.00 10/16/15 20:00 98.0 77 17 136/80 99 10/16/15 19:00 73 10/16/15 16:50 98.0 75 22 117/67 100 10/16/15 12:00 96.2 81 24 122/74 98 I/O 10/16/15 10/16/15 10/16/15 10/17/15 10/17/15 10/17/15 07:00 15:00 23:00 07:00 15:00 23:00 Intake Total 120 ml 240 ml 25 ml Balance 120 ml 240 ml 25 ml Intake Oral 120 ml 240 ml 25 ml # Voids 1 2 2 1 # Bowel Movements 1 0 Result Diagram: 10/16/15 0329 10/16/15 0329 Objective Remarks GENERAL: Dissheveled CM patient in NAD. SKIN: Warm and dry. HEAD: Normocephalic. EYES: No scleral icterus. No injection or drainage. NECK: Supple, trachea midline. No JVD or lymphadenopathy. CARDIOVASCULAR: Regular rate and rhythm without murmurs, gallops, or rubs. RESPIRATORY: Breath sounds equal bilaterally. No accessory muscle use. GASTROINTESTINAL: Abdomen soft, non-tender, nondistended. EXTREMITIES: No cyanosis, or edema. s/p remote right BKA. LLE with 1+ edema, several shallow venous stasis ulcerations on anterior calve, no significant cellulitis. NEUROLOGICAL: Awake, alert, and oriented to self, year. Speech and mentation slow. Non-focal; feeding himself. Poor eye contact. A/P Problem List: (1) Cellulitis Status: Acute (2) Ischemic cardiomyopathy Status: Chronic (3) Diabetes mellitus type 2 in obese Status: Chronic (4) S/P BKA (below knee amputation) unilateral Status: Chronic (5) Acute metabolic encephalopathy Status: Acute (6) Bacteremia Status: Acute (7) Chronic systolic (congestive) heart failure Status: Chronic Assessment and Plan Mr. Amado is a 60 year old male with a history of DM, ischemic cardiomyopathy who was brought to the hospital after he was unresponsive on the floor. - Cellulitis of the left lower ext. with staph coag neg bacteremia in 4/4 tubes. - Chronic venous stasis ulcers on the left lower ext. . Clinically improved today cellulitis resolving. - Cont patient on Vancomycin - pharmacy to dose. Add rocephin. -f/u 2 more blood cultures today. -consult infectious disease for the bacteremia - Acute metabolic encephalopathy - Per ED, GCS improved to 15 with supportive treatments. -CT head is unremarkable for any acute findings. - Mentation still slow today - not oriented to month/place - uncertain baseline mental status? Continue treatment of underlying medical conditions -pt states he lives with sister - I called his sister [employer] at number listed today - however no answer, and voicemail was full - Mild elevation of troponin without upward trend in the setting of CKD - No chest pain. Likely due to CKD. - CKD stage 3 associated with T2DM - stable. -Metabolic acidosis due to CKD -BMP pending. -Cardiomyopathy/chronic systolic CHF LVEF 35% on echo 03/2015 - HLIV. currently no exacerbation. cont coreg, asa, lipitor - Diabetes mellitus - cont long acting insulin levemir 10 units sq hs, novolog low SSi. -PAD -cont asa Full code. Heparin SQ. Tamra Suazo MD Oct 17, 2015 11:41
[2015-10-17 12:00] VITALS: BP 154/73; PULSE 76; RESP 18; TEMP 97.3; O2SAT 97
--- NOTE | 2015-10-17 12:54 | PD.CONS ---
History of Present Illness Service Infectious disease Consult Requested By Dr Dasia Suazo Reason for Consult Evaluate patient with cellulitis, and possible blood culture Primary Care Physician Unknown Diagnoses: History of Present Illness Patient seen and examined. Records reviewed. Patient is a very poor historian Patient is a 60-year-old male, lives at home with his sister, brought to the hospital after he was found on the floor. He is apparently confused and lethargic. In the ambulance patient's mental status improved somewhat after he was given some IV fluids and supplemental oxygen. There was no mention of any fever or chills or sweats at home. He was found to have some wounds in his left leg, and it's unclear as to how long he has had those wounds. He is complaining of pain in the left leg wounds. He is also complaining of some shortness of breath. Since admission he has not been febrile. His mental status shows him to be awake, but he is still very confused. He had 2 blood cultures done in the emergency room and they are now reported as growing coag- negative staph, final ID is still pending. There was a wound culture taken from the left leg and it is reported as growing staph aureus, and gram-negative rubens. Infectious disease consultation has been requested to evaluate the patient for his possible blood culture. Review of Systems Constitutional: DENIES: Fever, Chills Eyes: DENIES: Eye pain Ears, nose, mouth, throat: DENIES: Nasal discharge, Oral lesions, Throat pain, Ear Pain, Sinus Pain, Toothache Respiratory: COMPLAINS OF: Shortness of breath, DENIES: Cough Cardiovascular: DENIES: Chest pain, Palpitations Gastrointestinal: DENIES: Abdominal pain, Diarrhea, Nausea, Vomiting Genitourinary: DENIES: Dysuria Musculoskeletal: COMPLAINS OF: Muscle aches Integumentary: DENIES: Rash Neurologic: DENIES: Headache Psychiatric: COMPLAINS OF: Confusion Past Family Social History Allergies: Coded Allergies: Pen-Vee K (Verified Allergy, Severe, THROAT SWELLS, 10/15/15) Penicillin (Verified Allergy, Unknown, SWELLING, 10/15/15) Uncoded Allergies: aspartame (Adverse Reaction, Severe, severe nose bleed, 10/24/13) Past Medical History Coronary artery disease Hypertension Hyperlipidemia Diabetes mellitus Congestive heart failure Obesity Peripheral arterial disease Obstructive sleep apnea Past Surgical History CABG 4 vessel Left kidney stent Patient had a trach as a child Right BKA Active Ordered Medications Aspirin Lipitor Dulcolax Rocephin Coreg Heparin Insulin Imdur MOM Zofran Vancomycin Social History No smoking history No alcohol abuse No drug use Physical Exam Vital Signs Vital Signs Date Time Temp Pulse Resp B/P Pulse Ox O2 Delivery O2 Flow Rate FiO2 10/17/15 08:44 96.6 78 18 135/94 98 10/17/15 04:10 97.8 73 24 118/82 98 10/17/15 00:00 98.2 79 18 135/85 99 10/16/15 20:47 98 Nasal Cannula 3.00 10/16/15 20:00 98.0 77 17 136/80 99 10/16/15 19:00 73 10/16/15 16:50 98.0 75 22 117/67 100 Physical Exam GENERAL: Patient is a well-nourished, well-developed male, awake and laert, confused, looks mildly dyspneic at rest and with occasional audible wheezing SKIN: Warm and dry. No generalized rash and no evidence of embolic lesions. HEAD, EYES, EARS, NOSE AND THROAT : Atraumatic. Normocephalic. [place] conjunctiva. No petechia or subconjunctival hemorrhage. Pupils equal and round. No scleral icterus. No injection or drainage. EOM full and intact. No nasal discharge. No sinus tenderness. Poor dentition. Has moist oral mucosa. No oral lesions noted. NECK: Trachea midline. Supple and not tender, no meningeal signs. No lymphadenopathy. CARDIOVASCULAR: Regular rate and rhythm. No loud murmur, no rub heard. RESPIRATORY: Clear to auscultation. Breath sounds equal bilaterally. Has few rhonchi on the left side. Decreased breath sounds at the bases. ABDOMEN: Soft, non-tender, nondistended. Bowel sounds present and normoactive. No guarding. No rebound. No organomegaly. EXTREMITIES: No clubbing, cyanosis, or edema. No calf tenderness. He has a well-healed R BKA stump. His left foot is cool with some light purplish pinkish discoloration. He has superficial ulcers on the distal one third of his left leg anteriorly with purulent drainage. There is very mild redness around it. He also has some superficial ulcers on his left knee with a little bit of fibrous exudate noted. No significant drainage noted. No odor. NEUROLOGICAL: Awake and alert. He knows his age, doesn't know that he is at [facility], and cannot tell me the year. Cranial nerves grossly intact. Motor grossly within normal limits PSYCH: Flat affect, calm and cooperative LINE: Peripheral IV with no evidence of infection Laboratory Date/Time Procedure Status Source Growth 10/16/15 18:19 Aerobic Blood Culture - Preliminary Resulted Blood Peripheral NO GROWTH IN 1 DAY 10/16/15 18:19 Anaerobic Blood Culture - Preliminary Resulted Blood Peripheral NO GROWTH IN 1 DAY 10/15/15 21:20 Gram Stain - Final Resulted Wound Leg 10/15/15 21:20 Wound Culture - Preliminary Resulted Staphylococcus Aureus Gram Negative Rubens Result Diagram: 10/16/159 10/16/15328 Imaging RADIOLOGY STUDIES/FILMS REVIEWED Head CT 10/15/152116 Signed Impressions: Service Date/Time: September 21:47 - CONCLUSION: 1. No evidence of hemorrhage or mass effect. 2. Lacunar infarct right thalamus, left basal ganglia and adjacent to the left lateral ventricular body. 3. No skull fracture seen. Daryl Varner MD Chest X-Ray 10/15/152116 Signed Impressions: Service Date/Time: September 21:36 - CONCLUSION: Stable cardiomegaly. Engorgement of the central bronchopulmonary markings suggests possible pulmonary venous hypertension. No consolidative infiltrates seen. Daryl Varner MD Assessment and Plan Assessment and Plan IMPRESSION Positive BC x 2 with Coag Neg Staph, final ID pending, ?significance Infected superifical wounds L leg, C/S Staph aureus and GNR - ?stasis ulcers ?PVD Prob with venous insufficiency CHF, CAD SOB, ?CHF Allergy to PCN, tolerating cephalosporins RECOMMENDATION Follow cultures Continue vancomycin Change Rocephin to Cipro, since in some cases of stasis ulcers, Pseudomonas can play a role Adjust antibiotics once the wound culture is available I will order wound care to the left lower extremity wounds Further recommendations to follow once cultures are finalize I will also order chest x-ray to evaluate his shortness of breath Monitor progress I will follow along with you Thank you for this consultation Yojana Messina MD Oct 17, 2015 12:54
--- NOTE | 2015-10-17 14:03 | RADRPT ---
EXAM DATE/TIME: 10/17/2015 13:27 [facility] COMPARISON: CHEST SINGLE AP, October 15, 2015, 21:36. INDICATIONS : Shortness of breath, wheezing. MEDICAL HISTORY : Congestive heart failure. Hypercholesterolemia. Myocardial infarction. Coronaryartery disease. Hyperl ipidemia. Peripheral arterial disease. Obesity. Obstructive sleep apnea. Hypertension. Dyspnea. Renal calculi. Diabetes. SURGICAL HISTORY : CABG. Left kidney stent. ENCOUNTER: Initial ACUITY: 2 months PAIN SCORE: 0/10 LOCATION: Bilateral chest FINDINGS: Cardiomegaly and median sternotomy wires. Clear lungs. Degenerative changes of the spine. CONCLUSION: No acute disease. Justin Kaplan MD on October 17, 2015 at 14:01 Board Certified Radiologist. This report was verified electronically.
[2015-10-17] MEDS: CIPROFLOXACIN 750 MG TAB PO SCH ×2 (15:45→23:07)
[2015-10-17] MEDS: COLLAGENASE OINT 30 GM TUBE TOP SCH (15:45)
[2015-10-17 16:48] VITALS: BP 134/85; PULSE 77; RESP 18; TEMP 96.4; O2SAT 99
[2015-10-17 20:15] VITALS: BP 159/99; PULSE 79; RESP 24; TEMP 97.8; O2SAT 94
[2015-10-17] MEDS: INSULIN DETEMIR 100 UNITS/ML VIAL SQ SCH (23:08)
[2015-10-18] VITALS (7 sets, daily range): BP systolic 128–175; BP diastolic 77–104; PULSE 68–81; RESP 14–24; TEMP 96.3–98; O2SAT 94–100
[2015-10-18] MEDS: VANCOMYCIN INJ 1,750 MG in SODIUM CHLORID 0.9% 500 ML INJ 500 ML IV SCH (01:07)
[2015-10-18] MEDS: ISOSORBIDE MONONITRATE 60 MG TAB PO SCH (06:38)
[2015-10-18] MEDS: INSULIN ASPART SUPPLEMENTAL SCALE SQ SCH ×4 (07:00→21:00)
[2015-10-18] MEDS: ATORVASTATIN 80 MG TAB PO SCH (09:02)
[2015-10-18] MEDS: CIPROFLOXACIN 750 MG TAB PO SCH ×2 (09:03→20:33)
[2015-10-18] MEDS: ASPIRIN EC 81 MG TABEC PO SCH (09:03)
[2015-10-18] MEDS: CARVEDILOL 12.5 MG TAB PO SCH ×2 (09:03→20:33)
[2015-10-18] MEDS: HEPARIN SODIUM - SQ 10,000 UNITS/ML VIAL SQ SCH ×2 (09:03→20:34)
[2015-10-18] MEDS: COLLAGENASE OINT 30 GM TUBE TOP SCH (09:03)
--- NOTE | 2015-10-18 11:35 | HHI.PR ---
Subjective Remarks Patient denies pain or dyspnea today. Objective Vitals Vital Signs Date Time Temp Pulse Resp B/P Pulse Ox O2 Delivery O2 Flow Rate FiO2 10/18/15 08:38 96.5 68 18 137/89 100 10/18/15 04:00 96.8 72 20 143/81 96 10/18/15 00:00 96.3 81 24 175/104 96 10/17/15 20:38 21 10/17/15 20:15 97.8 79 24 159/99 94 10/17/15 16:48 96.4 77 18 134/85 99 10/17/15 12:00 97.3 76 18 154/73 97 I/O 10/17/15 10/17/15 10/17/15 10/18/15 10/18/15 10/18/15 07:00 15:00 23:00 07:00 15:00 23:00 Intake Total 25 ml 840 ml 480 ml 120 ml Balance 25 ml 840 ml 480 ml 120 ml Intake Oral 25 ml 840 ml 480 ml 120 ml # Voids 1 3 1 2 Result Diagram: 10/16/15 0329 10/16/15 0329 Objective Remarks GENERAL: CM patient in NAD. SKIN: Warm and dry. HEAD: Normocephalic. EYES: No scleral icterus. No injection or drainage. NECK: Supple, trachea midline. No JVD or lymphadenopathy. CARDIOVASCULAR: Regular rate and rhythm without murmurs, gallops, or rubs. RESPIRATORY: Breath sounds equal bilaterally. No accessory muscle use. GASTROINTESTINAL: Abdomen soft, non-tender, nondistended. EXTREMITIES: No cyanosis, or edema. s/p remote right BKA. LLE with 1+ edema, several shallow venous stasis ulcerations on anterior calve, no significant cellulitis. NEUROLOGICAL: Awake, alert, and oriented to place, self, year. Speech and mentation slow. Nonfocal. A/P Problem List: (1) Cellulitis Status: Acute (2) Ischemic cardiomyopathy Status: Chronic (3) Diabetes mellitus type 2 in obese Status: Chronic (4) S/P BKA (below knee amputation) unilateral Status: Chronic (5) Acute metabolic encephalopathy Status: Acute (6) Bacteremia Status: Acute (7) Chronic systolic (congestive) heart failure Status: Chronic Assessment and Plan Mr. Amado is a 60 year old male with a history of DM, ischemic cardiomyopathy who was brought to the hospital after he was unresponsive on the floor. - Cellulitis of the left lower ext. with staph coag neg bacteremia in 4/4 tubes. Staph haemolyticus in aerobic. - Chronic venous stasis ulcers on the left lower ext. . Clinically improved- cellulitis resolved. - Cont patient on Vancomycin - pharmacy to dose and cipro per ID. -f/u repeat blood cultures from 10/15 - no growth to date -wound cultures - MSSA, Serratia marcescens -consult infectious disease for the bacteremia - Acute metabolic encephalopathy - Per ED, GCS improved to 15 with supportive treatments. -CT head was unremarkable for any acute findings. - Mentation still slow today but improving, -oriented to place, but not year - uncertain baseline mental status? Continue treatment of underlying medical conditions -pt states he lives with sister and will return there at discharge- I called his sister Tigist at number listed today again - however no answer, and voicemail was full - Mild elevation of troponin without upward trend in the setting of CKD - No chest pain. Likely due to CKD. - CKD stage 3 associated with T2DM - stable. -Metabolic acidosis due to CKD -Cardiomyopathy/chronic systolic CHF LVEF 35% on echo 03/2015 - currently no exacerbation. cont coreg, asa, lipitor. - Diabetes mellitus - cont long acting insulin levemir 10 units sq hs, novolog low SSi. accucheks controlled. -PAD -cont asa Full code. Heparin SQ. Tamra Suazo MD Oct 18, 2015 11:35
--- NOTE | 2015-10-18 13:37 | HHI.IDPN ---
Subjective Subjective Remarks Notes reviewed Temps ok No new (+) BC Wound C/S with MSSA and Serratia BC with Staph hemolyticus - has diff sensitivity Not SOB CXR clear Antibiotics Vancomycin Cipro Lines Peripheral IV Past Medical History Coronary artery disease Hypertension Hyperlipidemia Diabetes mellitus Congestive heart failure Obesity Peripheral arterial disease Obstructive sleep apnea Past Surgical History CABG 4 vessel Left kidney stent Patient had a trach as a child Right BKA Allergies: Coded Allergies: Pen-Vee K (Verified Allergy, Severe, THROAT SWELLS, 10/15/15) Penicillin (Verified Allergy, Unknown, SWELLING, 10/15/15) Uncoded Allergies: aspartame (Adverse Reaction, Severe, severe nose bleed, 10/24/13) Objective . Vital Signs Date Time Temp Pulse Resp B/P Pulse Ox O2 Delivery O2 Flow Rate FiO2 10/18/15 12:50 97.3 69 14 128/77 100 10/18/15 08:38 96.5 68 18 137/89 100 10/18/15 04:00 96.8 72 20 143/81 96 10/18/15 00:00 96.3 81 24 175/104 96 10/17/15 20:38 21 10/17/15 20:15 97.8 79 24 159/99 94 10/17/15 16:48 96.4 77 18 134/85 99 10/17/15 10/17/15 10/18/15 15:00 23:00 07:00 Intake Total 840 ml 480 ml 120 ml Balance 840 ml 480 ml 120 ml Intake Oral 840 ml 480 ml 120 ml # Voids 3 1 2 . Microbiology Date/Time Procedure Status Source Growth 10/15/15 21:20 Aerobic Blood Culture - Final Complete Blood Peripheral Staphylococcus Haemolyticus 10/15/15 21:20 Anaerobic Blood Culture - Final Complete Staph Sp Coagulase Negative 10/15/15 21:20 Gram Stain - Final Complete Wound Leg 10/15/15 21:20 Wound Culture - Final Complete Staphylococcus Aureus Serratia Marcescens 10/15/15 21:40 Aerobic Blood Culture - Final Complete Blood Peripheral Staphylococcus Haemolyticus 10/15/15 21:40 Anaerobic Blood Culture - Final Complete Staph Sp Coagulase Negative 10/16/15 18:15 Aerobic Blood Culture - Preliminary Resulted Blood Peripheral NO GROWTH IN 2 DAYS 10/16/15 18:15 Anaerobic Blood Culture - Preliminary Resulted Blood Peripheral NO GROWTH IN 2 DAYS 10/16/15 18:19 Aerobic Blood Culture - Preliminary Resulted Blood Peripheral NO GROWTH IN 2 DAYS 10/16/15 18:19 Anaerobic Blood Culture - Preliminary Resulted Blood Peripheral NO GROWTH IN 2 DAYS Imaging Chest X-Ray 10/17/15 0000 Signed Impressions: Service Date/Time: Saturday, October 17, 2015 13:27 - CONCLUSION: No acute disease. Justin Kaplan MD Head CT 10/15/152116 Signed Impressions: Service Date/Time: September 21:47 - CONCLUSION: 1. No evidence of hemorrhage or mass effect. 2. Lacunar infarct right thalamus, left basal ganglia and adjacent to the left lateral ventricular body. 3. No skull fracture seen. Daryl Varner MD Physical Exam GENERAL: awake and laert, more oriented today, not SOB. SKIN: Warm and dry. No generalized rash and no evidence of embolic lesions. HEENT: [place] conjunctiva. No petechia or subconjunctival hemorrhage. No scleral icterus. Poor dentition. Has moist oral mucosa. NECK: Trachea midline. Supple and not tender, no meningeal signs. No lymphadenopathy. CARDIOVASCULAR: Regular rate and rhythm. No loud murmur, no rub heard. RESPIRATORY: Clear to auscultation. Breath sounds equal bilaterally. Decreased breath sounds at the bases. ABDOMEN: Soft, non-tender, nondistended. No guarding. No rebound. No organomegaly. EXTREMITIES: No clubbing, cyanosis, or edema. No calf tenderness. He has a well-healed R BKA stump. His left foot is cool with some light purplish pinkish discoloration. He has dry intact dressing to his L leg NEUROLOGICAL: Awake and alert. Oriented to place, time. Cranial nerves grossly intact. Motor grossly within normal limits PSYCH: calm and cooperative LINE: Peripheral IV with no evidence of infection Assessment & Plan Remarks IMPRESSION Positive BC x 2 with Staph hemolyticus, different sensitivity, prob contaminant Infected superifical wounds L leg, C/S Staph aureus and MSSA - ?stasis ulcers ?PVD Prob with venous insufficiency CHF, CAD SOB, ?CHF Allergy to PCN, tolerating cephalosporins RECOMMENDATION Follow cultures Continue vancomycin Continue Cipro Continue wound care If continues to improve, will change to oral Abx Monitor progress Yojana Messina MD Oct 18, 2015 13:37
[2015-10-18] MEDS: INSULIN DETEMIR 100 UNITS/ML VIAL SQ SCH (20:36)
[2015-10-18] MEDS ORDERED: PHARMACY ORDERED LAB XX ONE (23:45)
[2015-10-19] VITALS (8 sets, daily range): BP systolic 137–164; BP diastolic 84–101; PULSE 70–76; RESP 15–20; TEMP 95.5–97; O2SAT 90–99
[2015-10-19] MEDS: VANCOMYCIN INJ 1,750 MG in SODIUM CHLORID 0.9% 500 ML INJ 500 ML IV SCH ×3 (02:20)
[2015-10-19] MEDS: INSULIN ASPART SUPPLEMENTAL SCALE SQ SCH ×4 (06:02→21:00)
[2015-10-19] MEDS: ISOSORBIDE MONONITRATE 60 MG TAB PO SCH (06:08)
[2015-10-19] MEDS: ASPIRIN EC 81 MG TABEC PO SCH (08:37)
[2015-10-19] MEDS: CARVEDILOL 12.5 MG TAB PO SCH ×2 (08:38→22:43)
[2015-10-19] MEDS: ATORVASTATIN 80 MG TAB PO SCH (08:38)
[2015-10-19] MEDS: CIPROFLOXACIN 750 MG TAB PO SCH ×2 (08:38→22:43)
[2015-10-19] MEDS: HEPARIN SODIUM - SQ 10,000 UNITS/ML VIAL SQ SCH ×2 (08:39→22:43)
[2015-10-19] MEDS: COLLAGENASE OINT 30 GM TUBE TOP SCH (09:00)
[2015-10-19] MEDS ORDERED: RESP: ALBUTEROL 2.5 MG/IPRATROPIUM 0.5 MG NEB (SCH) NEB ONE (10:00)
--- NOTE | 2015-10-19 10:23 | HHI.PR ---
Subjective Remarks Patient's RN was concerned the patient had audible wheezing about 30 minutes ago. Sats 99% on 2 liters. Patient currently sleeping but wakes up, denies pain. Does endorse dyspnea. Objective Vitals Vital Signs Date Time Temp Pulse Resp B/P Pulse Ox O2 Delivery O2 Flow Rate FiO2 10/19/15 08:04 97.0 70 20 137/91 94 10/19/15 04:05 96.7 75 15 164/101 96 10/19/15 00:05 96.7 76 15 161/94 96 10/18/15 21:04 98 21 10/18/15 20:10 97.5 74 16 151/97 94 10/18/15 16:33 98.0 68 15 139/85 100 10/18/15 12:50 97.3 69 14 128/77 100 I/O 10/18/15 10/18/15 10/18/15 10/19/15 10/19/15 10/19/15 06:59 14:59 22:59 06:59 14:59 22:59 Intake Total 120 ml 480 ml 240 ml Balance 120 ml 480 ml 240 ml Intake Oral 120 ml 480 ml 240 ml # Voids 2 2 2 2 # Bowel Movements 0 Result Diagram: 10/16/1532810/16/15328 Objective Remarks GENERAL: CM patient in NAD. SKIN: Warm and dry. HEAD: Normocephalic. EYES: No scleral icterus. No injection or drainage. NECK: Supple, trachea midline. No JVD or lymphadenopathy. CARDIOVASCULAR: Regular rate and rhythm without murmurs, gallops, or rubs. RESPIRATORY: Breath sounds equal bilaterally. No wheezing rales or rhonchi. He is breathing deeply but does not appear to be in distress. GASTROINTESTINAL: Abdomen soft, non-tender, nondistended. EXTREMITIES: No cyanosis, or edema. s/p remote right BKA. LLE with 1+ edema, several shallow venous stasis ulcerations on anterior calve, no cellulitis. NEUROLOGICAL: Sleeping, but easily awakens, Awake, alert, and oriented to place , self. Speech and mentation slow. Nonfocal. A/P Problem List: (1) Cellulitis Status: Acute (2) Ischemic cardiomyopathy Status: Chronic (3) Diabetes mellitus type 2 in obese Status: Chronic (4) S/P BKA (below knee amputation) unilateral Status: Chronic (5) Acute metabolic encephalopathy Status: Acute (6) Bacteremia Status: Acute (7) Chronic systolic (congestive) heart failure Status: Chronic (8) Venous stasis ulcer of left lower extremity Status: Chronic (9) Shortness of breath Status: Acute Assessment and Plan Mr. Amado is a 60 year old male with a history of DM, ischemic cardiomyopathy who was brought to the hospital after he was unresponsive on the floor. - Cellulitis of the left lower ext. with staph coag neg bacteremia in 4/4 tubes. Staph haemolyticus in aerobic, contaminant likely. - Chronic venous stasis ulcers on the left lower ext. . Clinically improved- cellulitis resolved. - repeat blood cultures from 10/15 - no growth to date -wound cultures - MSSA, Serratia marcescens -Discussed with Dr. Messina/ID - DC vancomycin, treat with keflex and cipro for 10 days. -Wheezing this morning reported by RN - pt endorses dyspnea. On exam no wheezing , breathing deeply while sleeping however no apparent distress. Will check ABG and cxr. - Acute metabolic encephalopathy - improving. baseline neuro status unknown but I suspect chronic cognitive impairment. - Per ED, GCS improved to 15 with supportive treatments. -CT head was unremarkable for any acute findings. - Mentation still slow today but improving, -oriented to place, but not year - uncertain baseline mental status? Continue treatment of underlying medical conditions -pt states he lives with sister and will return there at discharge- I called his sister Tigist at number listed today again (3rd time) - however no answer, and voicemail was full - have asked CM for assistance in contacting the sister. - Mild elevation of troponin without upward trend in the setting of CKD - No chest pain. Likely due to CKD. - CKD stage 3 associated with T2DM - stable. -Metabolic acidosis due to CKD -Cardiomyopathy/chronic systolic CHF LVEF 35% on echo 03/2015 - currently no exacerbation. cont coreg, asa, lipitor. - Diabetes mellitus - cont long acting insulin levemir 10 units sq hs, novolog low SSi. accucheks controlled. -PAD -cont asa Full code. Heparin SQ. Discharge Planning SNF vs HHC tomorrow if sister can be located. Tamra Suazo MD Oct 19, 2015 10:23
[2015-10-19 10:39] LABS: BLOOD GAS BASE EXCESS -2.8 mmol/L (-2-2); BLOOD GAS CARBOXYHEMOGLOBIN 1.4 % (0-4); BLOOD GAS HCO3 21 mmol/L (22-26); BLOOD GAS METHEMOGLOBIN 0.6 % (0-2); BLOOD GAS O2 HGB SATURATION 95 % (90-100); BLOOD GAS OXYGEN CONTENT 14.6 Vol % (12.0-20.0); BLOOD GAS PCO2 35 mmHg (38-42); BLOOD GAS PO2 84 mmHg (61-120); BLOOD GAS TOTAL HGB 10.9 G/DL (12.0-16.0); CRITICAL VALUE NO; DRAW SITE RT RADIAL; FIO2 21 %; NUMBER OF ARTERIAL PUNCTURES 1; STAT YES; TEMP CORR TO 98.6; ULNAR PULSE PRESENT
--- NOTE | 2015-10-19 10:44 | RADRPT ---
EXAM DATE/TIME: 10/19/2015 10:17 [facility] COMPARISON: CHEST SINGLE AP, October 17, 2015, 13:27. INDICATIONS: Short of breath MEDICAL HISTORY: Congestive heart failure. SURGICAL HISTORY: CABG. ENCOUNTER: Subsequent ACUITY: 4 - 6 days PAIN SCORE: Non-responsive. LOCATION: Bilateral chest FINDINGS: The patient is status post sternotomy in the past. The heart size is enlarged. There is some minimal patchy density identified at the bases. The mid and upper lungs are relatively clear. CONCLUSION: 1. Cardiomegaly. 2. Minimal patchy areas of atelectasis at the bases. Camacho Santana MD on October 19, 2015 at 10:38 Board Certified Radiologist. This report was verified electronically.
[2015-10-19] MEDS ORDERED: DUONI NEB (10:59)
[2015-10-19] MEDS ORDERED: LACT PO (10:59)
[2015-10-19] MEDS ORDERED: CEPH500 PO (10:59)
[2015-10-19] MEDS ORDERED: CIPR750 PO (10:59)
--- NOTE | 2015-10-19 11:56 | HHI.IDPN ---
Subjective Subjective Remarks Notes reviewed Temps ok No new (+) BC Wound C/S with MSSA and Serratia BC with Staph hemolyticus - has diff sensitivity Lethargic Has pulled out his IV mulitple times Antibiotics Vancomycin Cipro Lines Peripheral IV Past Medical History Coronary artery disease Hypertension Hyperlipidemia Diabetes mellitus Congestive heart failure Obesity Peripheral arterial disease Obstructive sleep apnea Past Surgical History CABG 4 vessel Left kidney stent Patient had a trach as a child Right BKA Allergies: Coded Allergies: Pen-Vee K (Verified Allergy, Severe, THROAT SWELLS, 10/15/15) Penicillin (Verified Allergy, Unknown, SWELLING, 10/15/15) Uncoded Allergies: aspartame (Adverse Reaction, Severe, severe nose bleed, 10/24/13) Objective . Vital Signs Date Time Temp Pulse Resp B/P Pulse Ox O2 Delivery O2 Flow Rate FiO2 10/19/15 10:30 99 Nasal Cannula 3.00 10/19/15 08:04 97.0 70 20 137/91 94 10/19/15 04:05 96.7 75 15 164/101 96 10/19/15 00:05 96.7 76 15 161/94 96 10/18/15 21:04 98 21 10/18/15 20:10 97.5 74 16 151/97 94 10/18/15 16:33 98.0 68 15 139/85 100 10/18/15 12:50 97.3 69 14 128/77 100 10/18/15 10/18/15 10/19/15 15:00 23:00 07:00 Intake Total 480 ml 240 ml Balance 480 ml 240 ml Intake Oral 480 ml 240 ml # Voids 2 2 2 # Bowel Movements 0 . Microbiology Date/Time Procedure Status Source Growth 10/16/15 18:15 Aerobic Blood Culture - Preliminary Resulted Blood Peripheral NO GROWTH IN 3 DAYS 10/16/15 18:15 Anaerobic Blood Culture - Preliminary Resulted Blood Peripheral NO GROWTH IN 3 DAYS 10/16/15 18:19 Aerobic Blood Culture - Preliminary Resulted Blood Peripheral NO GROWTH IN 3 DAYS 10/16/15 18:19 Anaerobic Blood Culture - Preliminary Resulted Blood Peripheral NO GROWTH IN 3 DAYS Imaging Chest X-Ray 10/17/15 0000 Signed Impressions: Service Date/Time: Saturday, October 17, 2015 13:27 - CONCLUSION: No acute disease. Justin Kaplan MD Head CT 10/15/152116 Signed Impressions: Service Date/Time: September 21:47 - CONCLUSION: 1. No evidence of hemorrhage or mass effect. 2. Lacunar infarct right thalamus, left basal ganglia and adjacent to the left lateral ventricular body. 3. No skull fracture seen. Daryl Varner MD Physical Exam GENERAL: Lethargic SKIN: Warm and dry. No generalized rash and no evidence of embolic lesions. HEENT: [place] conjunctiva. No scleral icterus. Has moist oral mucosa. NECK: Supple and not tender, no meningeal signs. No lymphadenopathy. CARDIOVASCULAR: Regular rate and rhythm. No loud murmur, no rub heard. RESPIRATORY: Decreased breath sounds at the bases. ABDOMEN: Soft, non-tender, nondistended. No guarding. No rebound. No organomegaly. EXTREMITIES: No clubbing, cyanosis, or edema. No calf tenderness. He has a well-healed R BKA stump. Leg wounds better, no purulence, has red baseHis left foot is cool with some light purplish pinkish discoloration. He has dry intact dressing to his L leg LINE: Peripheral IV with no evidence of infection Assessment & Plan Remarks IMPRESSION Positive BC x 2 with Staph hemolyticus, different sensitivity, likely contaminant Infected superifical wounds L leg, C/S Staph aureus and MSSA - ?stasis ulcers ?PVD Prob with venous insufficiency CHF, CAD SOB, ?CHF Allergy to PCN, tolerating cephalosporins RECOMMENDATION Follow cultures Change to Keflex an Cipro Continue wound care Monitor progress D/W RN D/W Yojana Gagnon MD Oct 19, 2015 11:56
[2015-10-19 12:20] LABS: POTASSIUM 4.3 MEQ/L (3.5-5.1)
[2015-10-19] MEDS: RESP: ALBUTEROL 2.5 MG/IPRATROPIUM 0.5 MG NEB (SCH) NEB ×3 (13:15→19:50)
[2015-10-19] MEDS: CEPHALEXIN MONOHYDRATE 500 MG CAP PO SCH ×2 (15:28→22:43)
[2015-10-19] MEDS: SODIUM CHLORIDE 0.9% FLUSH 5 ML FLUSH FLUSH SCH (21:00)
[2015-10-19] MEDS: INSULIN DETEMIR 100 UNITS/ML VIAL SQ SCH (22:49)
[2015-10-19] MEDS ORDERED: PHARMACY ORDERED LAB XX ONE (23:45)
[2015-10-20] VITALS (10 sets, daily range): BP systolic 126–193; BP diastolic 84–100; PULSE 72–100; RESP 20–24; TEMP 92–98.1; O2SAT 92–98
[2015-10-20] MEDS: ISOSORBIDE MONONITRATE 60 MG TAB PO SCH (06:09)
[2015-10-20] MEDS: CEPHALEXIN MONOHYDRATE 500 MG CAP PO SCH ×3 (06:10→22:49)
[2015-10-20] MEDS: INSULIN ASPART SUPPLEMENTAL SCALE SQ SCH ×4 (06:13→21:00)
[2015-10-20] MEDS: RESP: ALBUTEROL 2.5 MG/IPRATROPIUM 0.5 MG NEB (SCH) NEB ×4 (08:40→19:40)
[2015-10-20] MEDS: ENALAPRIL MALEATE 2.5 MG TAB PO SCH ×2 (09:00→21:07)
[2015-10-20] MEDS: SODIUM CHLORIDE 0.9% FLUSH 5 ML FLUSH FLUSH SCH ×2 (09:00→21:00)
[2015-10-20] MEDS: COLLAGENASE OINT 30 GM TUBE TOP SCH (09:00)
--- NOTE | 2015-10-20 09:03 | HHI.PR ---
Subjective Remarks Patient laying in bed, ate breakfast. Objective Vitals Vital Signs Date Time Temp Pulse Resp B/P Pulse Ox O2 Delivery O2 Flow Rate FiO2 10/20/15 08:42 93 21 10/20/15 08:08 96.5 100 20 163/97 94 10/20/15 06:30 88 156/97 10/20/15 04:00 96.1 96 20 176/100 95 193/98 10/20/15 00:00 98.0 75 20 151/91 95 10/19/15 20:00 97.0 76 20 143/88 90 10/19/15 19:50 93 21 10/19/15 16:59 95.5 76 20 157/84 96 10/19/15 12:04 96.0 70 20 142/85 98 10/19/15 10:30 99 Nasal Cannula 3.00 I/O 10/19/15 10/19/15 10/19/15 10/20/15 10/20/15 10/20/15 07:00 15:00 23:00 07:00 15:00 23:00 Intake Total 480 ml 60 ml Balance 480 ml 60 ml Intake Oral 480 ml 60 ml # Voids 2 5 2 # Bowel Movements 0 1 Result Diagram: 10/16/15 0329 10/19/15 1144 Objective Remarks GENERAL: CM patient in NAD. SKIN: Warm and dry. HEAD: Normocephalic. EYES: No scleral icterus. No injection or drainage. NECK: Supple, trachea midline. No JVD or lymphadenopathy. CARDIOVASCULAR: Regular rate and rhythm without murmurs, gallops, or rubs. RESPIRATORY: Breath sounds equal bilaterally. No wheezing rales or rhonchi. GASTROINTESTINAL: Abdomen soft, non-tender, nondistended. EXTREMITIES: No cyanosis, or edema. s/p remote right BKA. LLE with 1+ edema, several shallow venous stasis ulcerations on anterior calve, no cellulitis. NEUROLOGICAL: Awake, alert, and oriented to self and only. Speech and mentation slow. Nonfocal. A/P Problem List: (1) Cellulitis Status: Resolved (2) Ischemic cardiomyopathy Status: Chronic (3) Diabetes mellitus type 2 in obese Status: Chronic (4) S/P BKA (below knee amputation) unilateral Status: Chronic (5) Acute metabolic encephalopathy Status: Acute (6) Bacteremia Status: Resolved (7) Chronic systolic (congestive) heart failure Status: Chronic (8) Venous stasis ulcer of left lower extremity Status: Chronic (9) Shortness of breath Status: Chronic Assessment and Plan Mr. Amado is a 60 year old male with a history of DM, ischemic cardiomyopathy who was brought to the hospital after he was unresponsive on the floor at home by a family member. - Cellulitis of the left lower ext. with staph coag neg bacteremia in 4/4 tubes. Staph haemolyticus in aerobic tubes, with different sensitivities, contaminant likely. - Chronic venous stasis ulcers on the left lower ext. . Clinically improved- cellulitis resolved. - repeat blood cultures from 10/15 - no growth to date -wound cultures - MSSA, Serratia marcescens -Discussed with Dr. Messina/ID on 10/18 - treat with keflex and cipro for 10 days (vancomycin DCed). Stop date 10/26. -Intermittent wheezing - lungs clear - has upper airway sounds. Stable on NC. Cxr - atelectasis. ABG OK. Cont duonebs. Check swallow eval. - Acute metabolic encephalopathy - improving. baseline neuro status unknown but I suspect chronic cognitive impairment/dementia. - Per ED, GCS improved to 15 with supportive treatments. -CT head was unremarkable for any acute findings. - Mentation still slow --oriented to place, but not year - uncertain baseline mental status? Continue treatment of underlying medical conditions -Unable to have MRI - due to no family being available to take history. - Mild elevation of troponin without upward trend in the setting of CKD - No chest pain. Likely due to CKD. - CKD stage 3 associated with T2DM - cr with mild increase today, repeat BMP in a.m. hold lasix. -Hypernatremia - repeat BMP in a.m. -Metabolic acidosis due to CKD -Cardiomyopathy/chronic systolic CHF LVEF 35% on echo 03/2015 - currently no exacerbation. cont coreg, asa, lipitor. resume lasix 20 mg PO BID if cr stable in a.m. - Diabetes mellitus - cont long acting insulin levemir 10 units sq hs, novolog low SSi. accucheks controlled. -PAD -cont asa Full code. Heparin SQ. Discharge Planning Can be discharged to SNF once family member (sister Tigist) can be located for consent. Multiple attempts to call her have been unsuccessful - voicemail is full. Discussed with case consultant. Problem Qualifiers (1) Cellulitis: Tamra Suazo MD Oct 20, 2015 09:02
[2015-10-20] MEDS: ASPIRIN EC 81 MG TABEC PO SCH ×2 (10:22→10:32)
[2015-10-20] MEDS: ATORVASTATIN 80 MG TAB PO SCH ×2 (10:22→10:33)
[2015-10-20] MEDS: CARVEDILOL 12.5 MG TAB PO SCH ×2 (10:22→21:08)
[2015-10-20] MEDS: HEPARIN SODIUM - SQ 10,000 UNITS/ML VIAL SQ SCH ×2 (10:23→21:08)
[2015-10-20] MEDS: CIPROFLOXACIN 750 MG TAB PO SCH ×2 (10:33→21:07)
--- NOTE | 2015-10-20 12:49 | RADRPT ---
EXAM DATE/TIME: 10/20/2015 12:10 [facility] COMPARISON: No previous studies available for comparison. INDICATIONS : Altered mental status. MEDICAL HISTORY : Hypertension. Diabetes mellitus type 2. Congestive heart failure. PVD SURGICAL HISTORY : CABG Cardiac stent, Rt BKA ENCOUNTER: Subsequent ACUITY: 1 week PAIN SCORE: Nonresponsive. LOCATION: cranial TECHNIQUE: Multiplanar, multisequence MRI of the brain was performed without contrast. FINDINGS: The diffusion restriction images demonstrate abnormal signal extending from the right cerebral pedunc le into the right thalamus. This would be consistent with an area of acute/subacute cortical infarct. There is a second punctate area of increased T2 signal within the left thalamus as well. This may re present T2 shine through as it is evident on the heavily T2-weighted image sequences however, a punct ate left thalamic infarct is not excluded. The ventricles are normal in size and configuration. No abnormal intra-or extra-axial fluid collectio ns are seen. No mass lesion is identified. The appearance of the posterior fossa is unremarkable. The visualized sinus and orbit are intact. CONCLUSION: 1. Acute cortical infarct extending from the right cerebral peduncle up through the pelvis. 2. A focal area of increased T2 signal in the left thalamus this may represent a punctate area of inf arct on the left as well. 3. Microvascular ischemic demyelinative change Tomas Clay MD on October 20, 2015 at 12:44 Board Certified Radiologist. This report was verified electronically.
[2015-10-20 14:40] LABS: BICARBONATE 26.5 MEQ/L (21.0-32.0); POTASSIUM 4.5 MEQ/L (3.5-5.1)
--- NOTE | 2015-10-20 18:26 | MB ---
cc: KAMILAH TURNER M.D. DATE OF CONSULTATION 10/20/15 REASON FOR CONSULTATION Stroke HISTORY OF PRESENT ILLNESS Mr. Amado is a 60-year-old man who has a history of ischemic cardiomyopathy who was found on the floor by family members with decreased responsiveness, came with altered minutes mental status. [place] coma scale on arrival was 14. No focal deficits identified. PAST MEDICAL HISTORY 1. Coronary artery disease, 2. Hypertension, 3. Cardiomyopathy with an EF of 35-40% 4. Coronary artery bypass graft, cardiac stent placement, 5. Hyperlipidemia, 6. Congestive heart failure 7. Sleep apnea 8. Left kidney stent 9. Right [id number] amputation ALLERGIES PEN VK PENICILLIN ASPARTAME MEDICATIONS Current medications 1. Vasotec 2.5 mg b.i.d. 2. Keflex 500 mg q.8 h. 3. Plavix 75 mg daily. 4. Cipro 750 mg q.12 h. 5. Insulin 10 units subcu q.h.s. 6. Aspirin 81 mg daily. 7. Atorvastatin 80 mg daily. 8. Coreg 12.5 mg b.i.d. 9. Subcu Heparin 5000 units b.i.d. 10. Imdur 60 mg daily. 11. Zofran p.r.n. 12. Dulcolax as needed 13. Milk of Magnesia as needed 14. Narcan as needed NEUROLOGIC EXAMINATION VITAL SIGNS: Blood pressure 126/89, pulse 72, respirations are 20, temperature is 97.2, degrees. higher cortical function - he is lethargic but arousable. Speech is extremely dysarthric with minimal speech output. He does follow simple commands. Cranial nerves: The extraocular movements are minimal. Pupils equal, reactive. There is no facial asymmetry. On motor exam, he has no gross focal deficits. Reflexes are 2+ symmetric. IMAGING STUDIES He had an MRI of the brain done today showing acute infarction in the right cerebral peduncle up to the pelvis, a small infarction in the left thalamus as probable, there is microvascular ischemic demyelinization, no evidence of any hemorrhage is seen. CT of the brain - no acute changes. He has chronic ischemic demyelinization LABORATORY DATA The white count is 10,100, hemoglobin 11.6, hematocrit 37.8%, platelet count is 160,000. Sodium is 147, potassium 4.5, chloride 114, CO2 26.5, the BUN is 38, creatinine 1.75, GFR is 40, glucose is 155, PT 13.1, INR 1.3. CARDIOLOGY STUDIES EKG - left anterior fascicular block, possible septal infarct age indeterminate. IMPRESSION Right cerebral peduncle/thalamic stroke and also possible left thalamic stroke versus artifact. The patient does have evidence of a cardiomyopathy and possible cardioembolic source. RECOMMENDATIONS For now, would continue the Plavix and aspirin therapy. I would like to get a carotid ultrasound as well as an echocardiogram. Consider long-term anticoagulation. However, because of the possibility of cardioembolic source given his cardiomyopathy, I would not anticoagulate at this time because of the potential hemorrhagic conversion of the stroke. We will also check a lipid panel. I would also like to get an MRA of the arteries in the neck and in the brain. MD ISSA [place]/ /5:41 PM /6:08 PM
[2015-10-20 20:15] LABS: HDL CHOLESTEROL 23.5 MG/DL (40.0-60.0)
[2015-10-20] MEDS: INSULIN DETEMIR 100 UNITS/ML VIAL SQ SCH (21:08)
[2015-10-21] VITALS (7 sets, daily range): BP systolic 141–180; BP diastolic 81–94; PULSE 70–76; RESP 18–22; TEMP 95.4–98.2; O2SAT 92–100
[2015-10-21] MEDS: ISOSORBIDE MONONITRATE 60 MG TAB PO SCH (05:55)
[2015-10-21] MEDS: CEPHALEXIN MONOHYDRATE 500 MG CAP PO SCH ×3 (05:55→21:36)
[2015-10-21] MEDS: INSULIN ASPART SUPPLEMENTAL SCALE SQ SCH ×4 (06:04→21:00)
[2015-10-21] MEDS ORDERED: LORazepam 2 MG/ML VIAL IV PUSH PRN (08:15)
[2015-10-21] MEDS: SODIUM CHLORIDE 0.9% FLUSH 5 ML FLUSH FLUSH SCH ×2 (09:00→21:00)
[2015-10-21] MEDS: COLLAGENASE OINT 30 GM TUBE TOP SCH (09:00)
[2015-10-21] MEDS: RESP: ALBUTEROL 2.5 MG/IPRATROPIUM 0.5 MG NEB (SCH) NEB ×4 (09:05→21:04)
[2015-10-21 09:42] LABS: BICARBONATE 27.1 MEQ/L (21.0-32.0); HDL CHOLESTEROL 26.2 MG/DL (40.0-60.0); POTASSIUM 4.4 MEQ/L (3.5-5.1)
[2015-10-21] MEDS: CARVEDILOL 12.5 MG TAB PO SCH ×2 (09:58→21:26)
[2015-10-21] MEDS: CLOPIDOGREL 75 MG TAB PO SCH (09:58)
[2015-10-21] MEDS: CIPROFLOXACIN 750 MG TAB PO SCH ×2 (09:59→21:26)
[2015-10-21] MEDS: ENALAPRIL MALEATE 2.5 MG TAB PO SCH ×2 (09:59→21:26)
[2015-10-21] MEDS: HEPARIN SODIUM - SQ 10,000 UNITS/ML VIAL SQ SCH ×2 (10:07→21:26)
[2015-10-21] MEDS ORDERED: GADOBENATE DIM PF 529 MG/ML 20ML VIAL (for RAD MRI) IV ONE (13:19)
[2015-10-21] MEDS: RESP: ALBUTEROL 2.5 MG/IPRATROPIUM 0.5 MG NEB (PRN) NEB (13:22)
--- NOTE | 2015-10-21 13:44 | RADRPT ---
EXAM DATE/TIME: 10/21/2015 12:52 [facility] COMPARISON: MRI BRAIN W/O CONTRAST, October 20, 2015, 12:10. INDICATIONS : Altered mental status. MEDICAL HISTORY : Hypertension. Diabetes mellitus type 2. Congestive heart failure. PVD SURGICAL HISTORY : CABG Cardiac stents, Rt BKA ENCOUNTER: Subsequent ACUITY: 1 week PAIN SCORE: Nonresponsive. LOCATION: cranial Please note a normal MRA of the brain does not entirely exclude the possibility of a small aneurysm, nor the possibility of distal intracranial vessel disease. TECHNIQUE: 3D time of flight MRA was performed. Source images, multiplanar STS MIP, and 3D volume MIP reconstru ctions were reviewed. FINDINGS: There is excellent visualization of the major intracranial arteries out to the second-order branch ve ssels. There is no evidence for aneurysm, vessel truncation or stenosis, and no evidence for vascula r malformation. CONCLUSION: Unremarkable MRA of the brain. Abiodun Hall MD on October 21, 2015 at 13:41 Board Certified Radiologist. This report was verified electronically.
--- NOTE | 2015-10-21 13:49 | RADRPT ---
EXAM DATE/TIME: 10/21/2015 12:52 [facility] COMPARISON: No previous studies available for comparison. INDICATIONS : Altered mental status. CONTRAST: 20 cc Omniscan (gadodiamide) IV MEDICAL HISTORY : Hypertension. Diabetes mellitus type 2. Congestive heart failure. PVD SURGICAL HISTORY : CABG CARDIAC STENT, RT BKA ENCOUNTER: Subsequent ACUITY: 1 week PAIN SCORE: Nonresponsive. LOCATION: cranial Percent stenosis is calculated using the diameter of the stenotic region over the diameter of the nor mal distal internal carotid artery. TECHNIQUE: Bolus infused MRA of the extracranial circulation was performed using a neurovascular coil. Post pro cessing was performed including rotationg subvolume maximum intensity projections of each carotid art patricia, rotating full volume maximum intensity projections of both carotid arteries, sagittal and mesa l sliding thin slab reformations of each carotid artery, and left oblique sliding thin slab reformati on through the aortic arch to include the origin of the arch branch vessels. FINDINGS: AORTIC ARCH: There is a three vessel origin of the great vessels from the aorta. No evidence of ostial narrowing. RIGHT CAROTID: The common carotid artery is intact. The carotid bulb has a normal configuration without ulceration or narrowing. The internal carotid artery lumen is smooth without stenosis. There is some tortuosity of the internal carotid artery. The external carotid artery is intact. LEFT CAROTID: The common carotid artery is intact. The carotid bulb has a normal configuration without ulceration or narrowing. The internal carotid artery lumen is smooth without stenosis. There is some tortuosity of the internal carotid artery. The external carotid artery is intact. VERTEBRALS: The vertebral arteries are patent bilaterally. Multiple nonspecific vessels are seen in the soft tiss ues posterior to the right vertebral artery. CONCLUSION: . 1. Unremarkable MRA of the carotid arteries bilaterally. 2. Nonspecific possible collateral vessels in the soft tissues posterior to the right vertebral arter y. The right verbal artery appears to be patent. If clinically indicated, a CTA could be performed fo r further evaluation. Abiodun Hall MD on October 21, 2015 at 13:42 Board Certified Radiologist. This report was verified electronically.
--- NOTE | 2015-10-21 16:16 | HHI.PR ---
Subjective Remarks tells me he feels ok. trying to sweet pickle maker food he dropped on his bed. answers no to my questions, denies any chest pain, sob,nausea or vomiting Objective Vitals Vital Signs Date Time Temp Pulse Resp B/P Pulse Ox O2 Delivery O2 Flow Rate FiO2 10/21/15 12:00 97.8 75 18 165/94 92 10/21/15 09:13 97 Nasal Cannula 2.00 10/21/15 07:57 97.9 76 20 143/89 95 10/21/15 04:49 97.0 75 22 141/84 100 10/20/15 23:48 98.1 85 20 154/86 95 10/20/15 20:10 97.4 83 21 142/84 94 10/20/15 19:42 98 Nasal Cannula 2.00 10/20/15 16:33 97.2 72 20 126/89 94 I/O 10/20/15 10/20/15 10/20/15 10/21/15 10/21/15 10/21/15 07:00 15:00 23:00 07:00 15:00 23:00 Intake Total 60 ml 360 ml 620 ml Balance 60 ml 360 ml 620 ml Intake Oral 60 ml 360 ml 620 ml # Voids 2 5 1 # Bowel Movements 1 Result Diagram: 10/21/15 0725 Imaging Last Impressions Neck Magnetic Resonance Angiography 10/21/15 0000 Signed Impressions: Service Date/Time: Wednesday, October 21, 2015 12:52 - CONCLUSION: . 1. Unremarkable MRA of the carotid arteries bilaterally. 2. Nonspecific possible collateral vessels in the soft tissues posterior to the right vertebral artery. The right verbal artery appears to be patent. If clinically indicated, a CTA could be performed for further evaluation. Abiodun Hall MD Head Magnetic Resonance Angiography 10/21/15 0000 Signed Impressions: Service Date/Time: Wednesday, October 21, 2015 12:52 - CONCLUSION: Unremarkable MRA of the brain. Abiodun Hall MD Brain MRI 10/20/15 0000 Signed Impressions: Service Date/Time: Tuesday, October 20, 2015 12:10 - CONCLUSION: 1. Acute cortical infarct extending from the right cerebral peduncle up through the pelvis. 2. A focal area of increased T2 signal in the left thalamus this may represent a punctate area of infarct on the left as well. 3. Microvascular ischemic demyelinative change Tomas Clay MD Chest X-Ray 10/19/15 0000 Signed Impressions: Service Date/Time: Monday, October 19, 2015 10:17 - CONCLUSION: 1. Cardiomegaly. 2. Minimal patchy areas of atelectasis at the bases. Camacho Santana MD Head CT 10/15/157 Signed Impressions: Service Date/Time: September 21:47 - CONCLUSION: 1. No evidence of hemorrhage or mass effect. 2. Lacunar infarct right thalamus, left basal ganglia and adjacent to the left lateral ventricular body. 3. No skull fracture seen. Daryl Varner MD Objective Remarks GENERAL: CM patient in NAD. EYES: No scleral icterus. No injection or drainage. NECK: Supple, trachea midline. No JVD or lymphadenopathy. CARDIOVASCULAR: Regular rate and rhythm without murmurs RESPIRATORY: Breath sounds equal bilaterally. No wheezing GASTROINTESTINAL: Abdomen soft, non-tender, nondistended. EXTREMITIES: No cyanosis, or edema. s/p remote right BKA. LLE with 1+ edema, several shallow venous stasis ulcerations on anterior calve, no cellulitis. dressing in place NEUROLOGICAL: Awake, alert, and oriented to self and only. Speech and mentation slow only answers w yes or no. Nonfocal. A/P Problem List: (1) Cellulitis Status: Resolved (2) Ischemic cardiomyopathy Status: Chronic (3) Diabetes mellitus type 2 in obese Status: Chronic (4) S/P BKA (below knee amputation) unilateral Status: Chronic (5) Acute metabolic encephalopathy Status: Acute (6) Bacteremia Status: Resolved (7) Chronic systolic (congestive) heart failure Status: Chronic (8) Venous stasis ulcer of left lower extremity Status: Chronic (9) Shortness of breath Status: Chronic Assessment and Plan Mr. Amado is a 60 year old male with a history of DM, ischemic cardiomyopathy who was brought to the hospital after he was unresponsive on the floor at home by a family member. - Cellulitis of the left lower ext. with staph coag neg bacteremia in 4/4 tubes. Staph haemolyticus in aerobic tubes, with different sensitivities, contaminant likely. - Chronic venous stasis ulcers on the left lower ext. . Clinically improved- cellulitis resolved. - repeat blood cultures from 10/15 - no growth to date -wound cultures - MSSA, Serratia marcescens - Dr. Messina/ID was on case and recommended treating with keflex and cipro for 10 days (vancomycin DCed). Stop date 10/26. -Intermittent wheezing - lungs clear - has upper airway sounds. Stable on NC. Cxr - atelectasis. ABG OK. Cont duonebs. Check swallow eval. - Acute metabolic encephalopathy - improving. baseline neuro status unknown but I suspect chronic cognitive impairment/dementia. - Per ED, GCS improved to 15 with supportive treatments. -CT head was unremarkable for any acute findings. - Mentation still slow --oriented to place, but not year - uncertain baseline mental status? Continue treatment of underlying medical conditions -MRI showed acute cortical infarct from right cerebral pedicle up through pelvis. MRA of head and neck unremarkable. Neurology following. on ASA and plavix - Mild elevation of troponin without upward trend in the setting of CKD - No chest pain. Likely due to CKD. - CKD stage 3 associated with T2DM - cr increased today to 1.81, hold lasix. -Hypernatremia - stable. repeat BMP in a.m. -Metabolic acidosis due to CKD -Cardiomyopathy/chronic systolic CHF LVEF 35% on echo 03/2015 - currently no exacerbation. cont coreg, asa, lipitor. hold lasix 20 mg PO BID. cautious w fluids. fluid restriction in place - Diabetes mellitus - cont long acting insulin levemir 10 units sq hs, novolog low SSi. accucheks controlled. -PAD -cont asa Full code. Heparin SQ. Discharge Planning Per CM's note, sister would like pt to be discharged home once stable. Problem Qualifiers (1) Cellulitis: Micki Gamble MD Oct 21, 2015 16:16
--- NOTE | 2015-10-21 16:40 | HHI.IDPN ---
Subjective Subjective Remarks Notes reviewed Temps ok Clinically stable No new (+) BC Wound C/S with MSSA and Serratia BC with Staph hemolyticus - has diff sensitivity Antibiotics Keflex Cipro Lines Peripheral IV Past Medical History Coronary artery disease Hypertension Hyperlipidemia Diabetes mellitus Congestive heart failure Obesity Peripheral arterial disease Obstructive sleep apnea Past Surgical History CABG 4 vessel Left kidney stent Patient had a trach as a child Right BKA Allergies: Coded Allergies: Pen-Vee K (Verified Allergy, Severe, THROAT SWELLS, 10/15/15) Penicillin (Verified Allergy, Unknown, SWELLING, 10/15/15) Uncoded Allergies: aspartame (Adverse Reaction, Severe, severe nose bleed, 10/24/13) Objective . Vital Signs Date Time Temp Pulse Resp B/P Pulse Ox O2 Delivery O2 Flow Rate FiO2 10/21/15 16:00 98.2 70 21 180/81 94 10/21/15 12:00 97.8 75 18 165/94 92 10/21/15 09:13 97 Nasal Cannula 2.00 10/21/15 07:57 97.9 76 20 143/89 95 10/21/15 04:49 97.0 75 22 141/84 100 10/20/15 23:48 98.1 85 20 154/86 95 10/20/15 20:10 97.4 83 21 142/84 94 10/20/15 19:42 98 Nasal Cannula 2.00 10/20/15 10/20/15 10/21/15 15:00 23:00 07:00 Intake Total 360 ml 620 ml Balance 360 ml 620 ml Intake Oral 360 ml 620 ml # Voids 5 1 . Laboratory Tests Test 10/20/15 10/21/15 13:07 07:25 Sodium Level 147 MEQ/L 147 MEQ/L Potassium Level 4.5 MEQ/L 4.4 MEQ/L Chloride Level 114 MEQ/L 113 MEQ/L Carbon Dioxide Level 26.5 MEQ/L 27.1 MEQ/L Anion Gap 7 MEQ/L 7 MEQ/L Blood Urea Nitrogen 38 MG/DL 38 MG/DL Creatinine 1.75 MG/DL 1.81 MG/DL Estimat Glomerular Filtration 40 ML/MIN 38 ML/MIN Rate Random Glucose 155 MG/DL 128 MG/DL Calcium Level 8.7 MG/DL 8.8 MG/DL Triglycerides Level 85 MG/DL 69 MG/DL Cholesterol Level 93 MG/DL 84 MG/DL LDL Cholesterol 53 MG/DL 44 MG/DL HDL Cholesterol 23.5 MG/DL 26.2 MG/DL Cholesterol/HDL Ratio 3.95 RATIO 3.20 RATIO Imaging Chest X-Ray 10/17/15 0000 Signed Impressions: Service Date/Time: Saturday, October 17, 2015 13:27 - CONCLUSION: No acute disease. Justin Kaplan MD Head CT 10/15/152116 Signed Impressions: Service Date/Time: September 21:47 - CONCLUSION: 1. No evidence of hemorrhage or mass effect. 2. Lacunar infarct right thalamus, left basal ganglia and adjacent to the left lateral ventricular body. 3. No skull fracture seen. Daryl Varner MD Physical Exam GENERAL: Lethargic SKIN: Warm and dry. No generalized rash HEENT: [place] conjunctiva. No scleral icterus. NECK: Supple and not tender, no meningeal signs. CARDIOVASCULAR: Regular rate and rhythm. No loud murmur, no rub heard. RESPIRATORY: Decreased breath sounds at the bases. ABDOMEN: Soft, non-tender, nondistended. No guarding. No rebound. No organomegaly. EXTREMITIES: No clubbing, cyanosis, or edema. No calf tenderness. He has a well-healed R BKA stump. Leg wounds better, no purulence, has red base LINE: Peripheral IV with no evidence of infection Assessment & Plan Remarks IMPRESSION Positive BC x 2 with Staph hemolyticus, different sensitivity, likely contaminant Infected superifical wounds L leg, C/S Staph aureus and MSSA - ?stasis ulcers ?PVD Prob with venous insufficiency CHF, CAD SOB, ?CHF Allergy to PCN, tolerating cephalosporins RECOMMENDATION Continue Keflex an Cipro - end date placed in [place] Continue wound care Clinically stable from ID standpoint I will see available prn I will be OOT 10/21-10/24 Other ID MD available if needed D/W RN D/W Yojana Gagnon MD Oct 21, 2015 16:40
--- NOTE | 2015-10-21 16:42 | EC ---
Study Study Date:10/21/2015 STUDY CONCLUSIONS SUMMARY - Procedure narrative: Transthoracic echocardiography. Image quality was very poor. Scanning was performed from the parasternal, apical, and subcostal acoustic windows. - Left ventricle: The cavity size was mildly dilated. Wall thickness was normal. Systolic function was very difficult to assess, possibly severely reduced. The ejection fraction is very roughly estimated at 35%. Wall motion was exceedingly difficult to assess. The septum appears severely hypokinetic. The anterior wall is very poorly visualized; it may be hypokinetic as well. The lateral wall is also not well visualized. The inferior and posterior menezes appear to be emma normally. - Aortic valve: Trileaflet; mild leaflet sclerosis. - Mitral valve: Trace regurgitation. - Left atrium: The atrium was mildly dilated. - Tricuspid valve: Trace regurgitation. - Pulmonary arteries: PA peak pressure: 39mm Hg (S). If LV function is below 40, please consider prescribing an ACEI or ARB or document rationale for non-use. PROCEDURE DATA STUDY STATUS: Elective. Procedure: Transthoracic echocardiography. Image quality was very poor. Scanning was performed from the parasternal, apical, and subcostal acoustic windows. Study completion: The patient tolerated the procedure well. Transthoracic echocardiography. M-mode, complete 2D, complete spectral Doppler, and color Doppler. Patient status: Inpatient. CARDIAC ANATOMY LEFT VENTRICLE: The cavity size was mildly dilated. Wall thickness was normal. Systolic function was very difficult to assess, possibly severely reduced. The ejection fraction is very roughly estimated at 35%. Wall motion was exceedingly difficult to assess. The septum appears severely hypokinetic. The anterior wall is very poorly visualized; it may be hypokinetic as well. The lateral wall is also not well visualized. The inferior and posterior menezes appear to be emma normally. AORTIC VALVE: Trileaflet; mild leaflet sclerosis. Doppler: Transvalvular velocity was within the normal range. There was no stenosis. No regurgitation. AORTA: Aortic root: The aortic root was normal in size. MITRAL VALVE: Structurally normal valve. Doppler: Transvalvular velocity was within the normal range. There was no evidence for stenosis. Trace regurgitation. Valve area by pressure half-time: 8.46cm^2. Mean gradient: 2mm Hg (D). Peak gradient: 6mm Hg (D). LEFT ATRIUM: The atrium was mildly dilated. RIGHT VENTRICLE: The cavity size was normal. Wall thickness was normal. PULMONIC VALVE: Doppler: Transvalvular velocity was within the normal range. There was no evidence for stenosis. No regurgitation. TRICUSPID VALVE: Structurally normal valve. Doppler: Transvalvular velocity was within the normal range. Trace regurgitation. PULMONARY ARTERY: The main pulmonary artery was normal-sized. Systolic pressure was within the normal range. RIGHT ATRIUM: The atrium was normal in size. PERICARDIUM: There was no pericardial effusion. SYSTEMIC VEINS: Inferior vena cava: The vessel was normal in size. BASIC MEASUREMENTS ADULT Normal Left ventricle LV internal dimension, ED, chordal level, *55.9 mm 43-52 PLAX LV posterior wall thickness, ED 11.2 mm IVS/LVPW ratio, ED 0.95 <1.3 Ventricular septum Septal thickness, ED 10.6 mm Left atrium Anterior-posterior dimension 34 mm Right ventricle RV internal dimension, ED, PLAX 19.3 mm 19-38 DOPPLER MEASUREMENTS ADULT Normal Main pulmonary artery Pressure, S *39 mm Hg =30 Aortic valve VTI, S 28.5 cm Mitral valve Peak E-wave velocity 126 cm/s Mean velocity, D 65.5 cm/s Pressure half-time 26 ms Mean gradient, D 2 mm Hg Peak gradient, D 6 mm Hg Valve area, pressure half-time 8.46 cm^2 Tricuspid valve Regurgitant peak velocity 119 cm/s Peak RV-RA gradient, S 6 mm Hg Maximal regurgitant velocity 119 cm/s Systemic veins Estimated CVP 10 mm Hg Right ventricle RV pressure, S *39 mm Hg <30 Pulmonic valve Acceleration time 120 ms LEGEND: Mean values are shown as u=mean value. Asterisk (*) rubin values outside specified normal range. Prepared and signed by Fab Melchor [id number]
[2015-10-21] MEDS: INSULIN DETEMIR 100 UNITS/ML VIAL SQ SCH (21:27)
[2015-10-22] VITALS (11 sets, daily range): BP systolic 131–155; BP diastolic 75–96; PULSE 66–95; RESP 18–28; TEMP 96.1–98.2; O2SAT 94–100
[2015-10-22] MEDS: CEPHALEXIN MONOHYDRATE 500 MG CAP PO SCH ×3 (06:42→20:43)
[2015-10-22] MEDS: ISOSORBIDE MONONITRATE 60 MG TAB PO SCH (06:49)
[2015-10-22] MEDS: INSULIN ASPART SUPPLEMENTAL SCALE SQ SCH ×4 (06:53→20:43)
[2015-10-22 08:04] LABS: AUTOMATED NEUTROPHIL # 6.4 TH/MM3 (1.8-7.7); BASOPHIL % 0.3 % (0.0-2.0); EOSINOPHIL # 0.4 TH/MM3 (0-0.4); HEMATOCRIT 30.9 % (39.0-51.0); HEMO FLAGS DIFF FINAL; LYMPH % 7.3 % (9.0-44.0); LYMPHOCYTE # 0.6 TH/MM3 (1.0-4.8); MEAN CELL VOLUME 85.1 FL (80.0-100.0); MEAN CORPUSCULAR HEMOGLOBIN 27.7 PG (27.0-34.0); MEAN CORPUSCULAR HGB CONC 32.5 % (32.0-36.0); NEUT % 79.4 % (16.0-70.0); PLATELET COUNT 169 TH/MM3 (150-450); RED BLOOD COUNT 3.63 MIL/MM3 (4.50-5.90); RED CELL DISTRIBUTION WIDTH 15.3 % (11.6-17.2); WHITE BLOOD COUNT 8.1 TH/MM3 (4.0-11.0)
[2015-10-22 08:25] LABS: BICARBONATE 28.5 MEQ/L (21.0-32.0); MAGNESIUM 1.6 MG/DL (1.5-2.5); POTASSIUM 4.6 MEQ/L (3.5-5.1)
[2015-10-22] MEDS: RESP: ALBUTEROL 2.5 MG/IPRATROPIUM 0.5 MG NEB (SCH) NEB ×4 (08:38→19:55)
[2015-10-22] MEDS: HEPARIN SODIUM - SQ 10,000 UNITS/ML VIAL SQ SCH ×2 (08:39→20:42)
[2015-10-22] MEDS: CIPROFLOXACIN 750 MG TAB PO SCH ×2 (08:42→20:43)
[2015-10-22] MEDS: ASPIRIN EC 81 MG TABEC PO SCH (08:42)
[2015-10-22] MEDS: ENALAPRIL MALEATE 2.5 MG TAB PO SCH ×2 (08:42→20:42)
[2015-10-22] MEDS: CARVEDILOL 12.5 MG TAB PO SCH ×2 (08:42→20:43)
[2015-10-22] MEDS: CLOPIDOGREL 75 MG TAB PO SCH (08:42)
[2015-10-22] MEDS: ATORVASTATIN 80 MG TAB PO SCH (08:42)
[2015-10-22] MEDS: SODIUM CHLORIDE 0.9% FLUSH 5 ML FLUSH FLUSH SCH ×2 (08:43→20:43)
[2015-10-22] MEDS: COLLAGENASE OINT 30 GM TUBE TOP SCH (08:43)
[2015-10-22] MEDS ORDERED: SODIUM CHLOR 0.45% 1000 ML INJ 1,000 ML IV SCH (13:00)
--- NOTE | 2015-10-22 13:35 | HHI.PR ---
Subjective Remarks Pt sleeping and hard to wake up however, after painful stimuli he does open his eyes and looks around. grumbles some noise. Per RN, this morning he was more alert and was doing fine. overnight he was agitated and was trying to pull of his holter monitor. thats the reason he was placed on restraints. no other concerns at this time. Objective Vitals Vital Signs Date Time Temp Pulse Resp B/P Pulse Ox O2 Delivery O2 Flow Rate FiO2 10/22/15 12:00 97.7 66 18 131/80 97 10/22/15 08:40 94 Nasal Cannula 3.00 10/22/15 08:00 98.2 75 20 148/75 98 10/22/15 04:29 96.1 72 18 139/84 100 10/22/15 00:11 97.8 73 21 141/96 95 10/21/15 21:04 97 Nasal Cannula 3.00 10/21/15 20:25 95.4 75 21 152/94 98 10/21/15 16:00 98.2 70 21 180/81 94 I/O 10/21/15 10/21/15 10/21/15 10/22/15 10/22/15 10/22/15 07:00 15:00 23:00 07:00 15:00 23:00 Intake Total 240 ml 240 ml Balance 240 ml 240 ml Intake Oral 240 ml 240 ml # Voids 1 3 2 # Bowel Movements 0 Result Diagram: 10/22/15 0738 10/22/15 0738 Imaging Last Impressions Neck Magnetic Resonance Angiography 10/21/15 0000 Signed Impressions: Service Date/Time: Wednesday, October 21, 2015 12:52 - CONCLUSION: . 1. Unremarkable MRA of the carotid arteries bilaterally. 2. Nonspecific possible collateral vessels in the soft tissues posterior to the right vertebral artery. The right verbal artery appears to be patent. If clinically indicated, a CTA could be performed for further evaluation. Abiodun Hall MD Head Magnetic Resonance Angiography 10/21/15 0000 Signed Impressions: Service Date/Time: Wednesday, October 21, 2015 12:52 - CONCLUSION: Unremarkable MRA of the brain. Abiodun Hall MD Brain MRI 10/20/15 0000 Signed Impressions: Service Date/Time: Tuesday, October 20, 2015 12:10 - CONCLUSION: 1. Acute cortical infarct extending from the right cerebral peduncle up through the pelvis. 2. A focal area of increased T2 signal in the left thalamus this may represent a punctate area of infarct on the left as well. 3. Microvascular ischemic demyelinative change Tomas Clay MD Chest X-Ray 10/19/15 0000 Signed Impressions: Service Date/Time: Monday, October 19, 2015 10:17 - CONCLUSION: 1. Cardiomegaly. 2. Minimal patchy areas of atelectasis at the bases. Camacho Santana MD Head CT 10/15/157 Signed Impressions: Service Date/Time: September 21:47 - CONCLUSION: 1. No evidence of hemorrhage or mass effect. 2. Lacunar infarct right thalamus, left basal ganglia and adjacent to the left lateral ventricular body. 3. No skull fracture seen. Daryl Varner MD Objective Remarks GENERAL: CM patient in NAD. EYES: No scleral icterus. No injection or drainage. NECK: Supple, trachea midline. No JVD or lymphadenopathy. CARDIOVASCULAR: Regular rate and rhythm without murmurs RESPIRATORY: Breath sounds equal bilaterally. No wheezing GASTROINTESTINAL: Abdomen soft, non-tender, nondistended. EXTREMITIES: No cyanosis, or edema. s/p right BKA. LLE with 1+ edema, several shallow venous stasis ulcerations on anterior calve, no cellulitis. dressing in place NEUROLOGICAL: sleepy but after painful stimuli does wake up and looks around. only mumbles at this time. moves left upper extremity w stimulation A/P Problem List: (1) Cellulitis Status: Resolved (2) Ischemic cardiomyopathy Status: Chronic (3) Diabetes mellitus type 2 in obese Status: Chronic (4) S/P BKA (below knee amputation) unilateral Status: Chronic (5) Acute metabolic encephalopathy Status: Acute (6) Bacteremia Status: Resolved (7) Chronic systolic (congestive) heart failure Status: Chronic (8) Venous stasis ulcer of left lower extremity Status: Chronic (9) Shortness of breath Status: Chronic Assessment and Plan Mr. Amado is a 60 year old male with a history of DM, ischemic cardiomyopathy who was brought to the hospital after he was unresponsive on the floor at home by a family member. - Cellulitis of the left lower ext. with staph coag neg bacteremia in 4/4 tubes. Staph haemolyticus in aerobic tubes, with different sensitivities, contaminant likely. - Chronic venous stasis ulcers on the left lower ext. . Clinically improved- cellulitis resolved. - repeat blood cultures from 10/15 - no growth to date -wound cultures - MSSA, Serratia marcescens - Dr. Messina/ID was on case and recommended treating with keflex and cipro for 10 days (vancomycin DCed). Stop date 10/26. -Intermittent wheezing - lungs clear - has upper airway sounds. Stable on NC. Cxr - atelectasis. ABG OK. Cont duonebs. Check swallow eval. - Acute metabolic encephalopathy - improving. baseline neuro status unknown but there is suspicion of chronic cognitive impairment/dementia. - Per ED, GCS improved to 15 with supportive treatments. -CT head was unremarkable for any acute findings. - uncertain baseline mental status? Continue treatment of underlying medical conditions -MRI showed acute cortical infarct from right cerebral pedicle up through pelvis. MRA of head and neck unremarkable. Neurology following. on ASA and plavix Pt had a 9 run beat of Vtach. will get a cardiology consult at this time for further recs. Will repeat MRI, STAT, as pt is difficult to arouse (has not received any sedatives) and this is new compared to yesterday when I evaluated him. - Mild elevation of troponin without upward trend in the setting of CKD - No chest pain. Likely due to CKD. - CKD stage 3 associated with T2DM - cr increased today to 1.81, hold lasix. -Hypernatremia - increased to 149. give 100ml water po TID (caution w fluids as pt's EF was 35% on ECHO) -Metabolic acidosis due to CKD -Cardiomyopathy/chronic systolic CHF LVEF 35% on echo 03/2015 - currently no exacerbation. cont coreg, asa, lipitor. hold lasix 20 mg PO BID. cautious w fluids. fluid restriction in place - Diabetes mellitus - cont long acting insulin levemir 10 units sq hs, novolog low SSi. accucheks controlled. -PAD -cont asa Full code. Heparin SQ. Discharge Planning Per CM's note, sister would like pt to be discharged home once stable. CM has been having trouble speaking w sister as apparently she no longer has a phone and will only call CM and hasn't left a new phone number for CM to reach out to her. Problem Qualifiers (1) Cellulitis: Micki Gamble MD Oct 22, 2015 13:35
--- NOTE | 2015-10-22 15:25 | RADRPT ---
EXAM DATE/TIME: 10/22/2015 14:38 [facility] COMPARISON: MRI BRAIN W/O CONTRAST, October 20, 2015, 12:10. INDICATIONS : New decreased level of consciousness. MEDICAL HISTORY : Hypertension. Diabetes mellitus type 2. Congestive heart failure. PVD SURGICAL HISTORY : CABG Coronary artery stent. Right BKA. ENCOUNTER: Subsequent ACUITY: 3 day PAIN SCORE: 0/10 LOCATION: head. TECHNIQUE: Multiplanar, multisequence MRI of the brain was performed without contrast. FINDINGS: CEREBRUM: There is mild cerebral atrophy. Image quality is degraded by motion artifact. There is increased flai r and T2 signal in the right basal ganglia associated with restricted diffusion. The signal change in the right cerebral peduncle has nearly normalized. No evidence of midline shift, mass lesion, or he morrhage. No extraaxial fluid collections are seen. The pituitary gland and suprasellar cistern are normal in configuration. WHITE MATTER: There is mild scattered periventricular and subcortical white matter signal change identical to the p rior study. POSTERIOR FOSSA: The cerebellum and brainstem demonstrate no acute finding. The 4th ventricle is midline. The cerebel lopontine angle is unremarkable. The cerebellar tonsils are normal in position. DIFFUSION IMAGING: There is a stable focal area of restricted diffusion in the left basal ganglia. EXTRACRANIAL: The visualized portions of the orbits and paranasal sinuses are unremarkable. CONCLUSION: 1. No significant interval change is identified. There is stable restricted diffusion in the left bas al ganglia representing an area of recent ischemia. There are no findings to indicate hemorrhagic tra nsformation. The previously documented signal change within the right cerebral peduncle has nearly no rmalized. 2. Stable chronic white matter changes. Camacho Culp MD on October 22, 2015 at 15:17 Board Certified Radiologist. This report was verified electronically.
--- NOTE | 2015-10-22 17:14 | MB ---
cc: ANTONIA MARTIN MD DATE OF CONSULTATION 10/22/15 REASON FOR CONSULTATION Ventricular tachycardia HISTORY OF PRESENT ILLNESS Mr. Amado is a 60-year-old man whom I am seeing for a service consultation regarding his V-tach. He has a known history of a prior coronary artery bypass graft and ischemic cardiomyopathy. The patient has today is minimally responsive and unable to give a history, thus, the history is per the records. Apparently, this admission began on 10/15/15 when he presented with mild Rhabdomyolysis and generalized weakness after a fall. This was apparently complicated by altered mental status. He was found to have purulent cellulitis of the left lower extremity and has been on antibiotics per ID. PAST MEDICAL HISTORY 1. Prior coronary artery bypass graft, subsequent stenting of the proximal circumflex in 2014 2. Systolic heart failure, 3. Ischemic cardiomyopathy with EF 35%. 4. PAD with a right BKA. 5. Hypertension, 6. Hyperlipidemia, 7. Diabetes, 8. Congestive heart failure 9. Obesity. PAST SURGICAL HISTORY 1. Coronary artery bypass graft 2. Left kidney stent 3. Right BKA ALLERGIES PEN VK PENICILLIN MEDICATIONS Current per the record. FAMILY HISTORY AND SOCIAL HISTORY AND REVIEW OF SYSTEMS Unable. PHYSICAL EXAMINATION VITAL SIGNS: 97.7, 66, 18, 131/80 GENERAL: He is minimally responsive. He is in no apparent distress. LUNGS: Bilaterally clear to auscultation. CARDIOVASCULAR: Normal S1 and S2. I did not appreciate any murmurs, rubs or gallops. ABDOMEN: Soft EXTREMITIES: The right lower extremity is amputated. CARDIOLOGY STUDIES 1. Telemetry does show multiple runs of wide complex irregular tachycardiac. This is most likely DVT given his history, though atrial fibrillation with aberrancy cannot be excluded as it is quite irregular. At this point, I would continue with medical management as she is not a revascularization candidate. He is on a beta-brown. Of note, nursing indicates that while his family does call in to check on the patient, we are able to contact them since the numbers that they leave with us do not go through. 2. Cellulitis - the patient is being continued on antibiotics through 10/26 3. Mental status changes - this is being managed by the primary team. 4. Ischemic cardiomyopathy - the patient is on a beta brown and DIALLO inhibitor. Consideration may be given towards ICD when he is able to consent and free of infection. As well, he is a poor candidate for a device secondary to long-term compliance issues. Additionally, it is difficult to discern if the patient would consider this. Ayehsa Toure/ /3:27 PM /4:55 PM
--- NOTE | 2015-10-22 18:31 | HHI.PR ---
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 Plan will require skilled nursing anticoagulation Diagnosis/Plan: Subjective Subjective Comments No acute events reported pt was lethargic earlier today but now is more alert Active Medications Current Medications Medications (Trade) Dose Ordered Sig/Estuardo Route Start Time Stop Time Status Last Admin (NS Flush) 2 ml UNSCH PRN FLUSH 10/15/15 23:30 (NS Flush) 2 ml BID FLUSH 10/16/15 09:00 10/17/15 09:00 (Zofran Inj) 4 mg Q6H PRN IVP 10/15/15 23:30 (Dulcolax Supp) 10 mg DAILY PRN MN 10/15/15 23:30 (Milk Of Magnesia Liq) 30 ml Q12H PRN PO 10/15/15 23:30 10/19/15 22:43 (Narcan Inj) 0.4 mg UNSCH PRN IV 10/15/15 23:30 (Ecotrin Ec) 81 mg DAILY PO 10/16/15 09:00 10/22/15 08:42 (Lipitor) 80 mg DAILY PO 10/16/15 09:00 10/22/15 08:42 (Coreg) 12.5 mg BID PO 10/16/15 09:00 10/22/15 08:42 (Levemir Inj) 10 units HS SQ 10/16/15 21:00 10/21/15 21:27 (Imdur) 60 mg DAILY@07 PO 10/16/15 07:00 10/22/15 06:49 (Heparin Inj) 5,000 units Q12HR SQ 10/16/15 09:00 10/22/15 08:39 (D50w (Vial) Inj) 25 ml UNSCH PRN IV 10/17/15 08:15 (Glucagon Inj) 1 mg UNSCH PRN IM/SQ 10/17/15 08:15 (Santyl Oint) 1 applic DAILY TOP 10/17/15 15:00 10/22/15 08:43 (Vasotec) 2.5 mg BID PO 10/20/15 09:00 10/22/15 08:42 (Keflex) 500 mg Q8HR PO 10/20/15 14:00 10/27/15 15:00 10/22/15 16:02 (Cipro) 750 mg Q12HR PO 10/20/15 09:00 10/27/15 19:00 10/22/15 08:42 (Plavix) 75 mg DAILY PO 10/21/15 09:00 10/22/15 08:42 (Ativan Inj) 0.5 mg ONCE PRN IV PUSH 10/21/15 08:15 10/28/15 08:14 10/21/15 12:01 Allergies Allergies Coded Allergies Pen-Vee K (Verified Allergy, Severe, THROAT SWELLS, 10/15/15) Penicillin (Verified Allergy, Unknown, SWELLING, 10/15/15) Uncoded Allergies aspartame ( Adverse Reaction, Severe, severe nose bleed, 10/24/13) Exam I&O / VS 10/21/15 10/21/15 10/22/15 15:00 23:00 07:00 Intake Total 240 ml 240 ml Balance 240 ml 240 ml Intake Oral 240 ml 240 ml # Voids 3 2 # Bowel Movements 0 Vital Signs Date Time Temp Pulse Resp B/P Pulse Ox O2 Delivery O2 Flow Rate FiO2 10/22/15 16:46 97 Nasal Cannula 2.00 10/22/15 16:00 97.8 84 19 155/89 94 10/22/15 13:40 66 10/22/15 12:00 97.7 66 18 131/80 97 10/22/15 09:00 95 10/22/15 08:40 94 Nasal Cannula 3.00 10/22/15 08:00 98.2 75 20 148/75 98 10/22/15 04:29 96.1 72 18 139/84 100 10/22/15 00:11 97.8 73 21 141/96 95 10/21/15 21:04 97 Nasal Cannula 3.00 10/21/15 20:25 95.4 75 21 152/94 98 Exam Comments alert, speech is normal, follows commands PERRL. EOM--intact no facial asymetry motor --no gross focal deficits Objective Radiology Results MRI brain today is stable with left BG/thalamic cva. improvement in changes seen in right cerebral peduncle. MRA brain and neck are normal Micro and Labs Laboratory Tests Test 10/22/15 07:38 White Blood Count 8.1 Red Blood Count 3.63 Hemoglobin 10.0 Hematocrit 30.9 Mean Corpuscular Volume 85.1 Mean Corpuscular Hemoglobin 27.7 Mean Corpuscular Hemoglobin 32.5 Concent Red Cell Distribution Width 15.3 Platelet Count 169 Mean Platelet Volume 8.1 Neutrophils (%) (Auto) 79.4 Lymphocytes (%) (Auto) 7.3 Monocytes (%) (Auto) 8.0 Eosinophils (%) (Auto) 5.0 Basophils (%) (Auto) 0.3 Neutrophils # (Auto) 6.4 Lymphocytes # (Auto) 0.6 Monocytes # (Auto) 0.6 Eosinophils # (Auto) 0.4 Basophils # (Auto) 0.0 CBC Comment DIFF FINAL Differential Comment Sodium Level 149 Potassium Level 4.6 Chloride Level 114 Carbon Dioxide Level 28.5 Anion Gap 7 Blood Urea Nitrogen 37 Creatinine 1.64 Estimat Glomerular Filtration 43 Rate Random Glucose 107 Calcium Level 8.6 Magnesium Level 1.6 Balbir Estrella PhD Oct 22, 2015 18:31
[2015-10-22] MEDS: INSULIN DETEMIR 100 UNITS/ML VIAL SQ SCH (20:43)
[2015-10-23] VITALS: BP 133/82; PULSE 70; RESP 18; TEMP 95.8; O2SAT 99
[2015-10-23] MEDS: WARFARIN SOD 5 MG TAB PO SCH (00:30)
[2015-10-23 04:00] VITALS: BP 149/95; PULSE 71; RESP 18; TEMP 95.9; O2SAT 97
[2015-10-23] MEDS: CEPHALEXIN MONOHYDRATE 500 MG CAP PO SCH ×3 (05:29→22:00)
[2015-10-23] MEDS: INSULIN ASPART SUPPLEMENTAL SCALE SQ SCH ×4 (05:30→22:00)
[2015-10-23] MEDS: ISOSORBIDE MONONITRATE 60 MG TAB PO SCH (05:30)
[2015-10-23 08:08] VITALS: BP 142/94; PULSE 76; RESP 20; TEMP 96.1; O2SAT 96
[2015-10-23 08:24] LABS: BICARBONATE 27.9 MEQ/L (21.0-32.0); MAGNESIUM 1.6 MG/DL (1.5-2.5); POTASSIUM 4.2 MEQ/L (3.5-5.1)
[2015-10-23] MEDS: RESP: ALBUTEROL 2.5 MG/IPRATROPIUM 0.5 MG NEB (SCH) NEB (08:57)
[2015-10-23 08:59] VITALS: O2SAT 99
[2015-10-23] MEDS: SODIUM CHLORIDE 0.9% FLUSH 5 ML FLUSH FLUSH SCH ×2 (09:00→21:00)
[2015-10-23] MEDS: ENALAPRIL MALEATE 2.5 MG TAB PO SCH ×2 (09:00→21:00)
[2015-10-23] MEDS: COLLAGENASE OINT 30 GM TUBE TOP SCH (09:00)
[2015-10-23] MEDS: CLOPIDOGREL 75 MG TAB PO SCH (09:43)
[2015-10-23] MEDS: HEPARIN SODIUM - SQ 10,000 UNITS/ML VIAL SQ SCH ×2 (09:44→21:00)
[2015-10-23] MEDS: ATORVASTATIN 80 MG TAB PO SCH (09:44)
[2015-10-23] MEDS: CARVEDILOL 12.5 MG TAB PO SCH ×2 (09:44→21:00)
[2015-10-23] MEDS: CIPROFLOXACIN 750 MG TAB PO SCH ×2 (09:44→21:00)
[2015-10-23] MEDS: ASPIRIN EC 81 MG TABEC PO SCH (09:44)
[2015-10-23 12:00] VITALS: BP 152/84; PULSE 77; RESP 17; TEMP 96.8; O2SAT 93
[2015-10-23] MEDS: RESP: ALBUTEROL 2.5 MG/IPRATROPIUM 0.5 MG NEB (PRN) NEB (12:03)
--- NOTE | 2015-10-23 15:14 | HHI.PR ---
Subjective Remarks Pt more alert today, trying to eat lunch. answer mainly w yes or no and denies any pain or discomfort. Objective Vitals Vital Signs Date Time Temp Pulse Resp B/P Pulse Ox O2 Delivery O2 Flow Rate FiO2 10/23/15 12:00 96.8 77 17 152/84 93 10/23/15 08:59 99 Nasal Cannula 1.00 10/23/15 08:08 96.1 76 20 142/94 96 10/23/15 04:00 95.9 71 18 149/95 97 10/23/15 00:00 95.8 70 18 133/82 99 10/22/15 20:00 96.7 80 28 149/84 96 10/22/15 19:55 98 Nasal Cannula 2.00 10/22/15 16:46 97 Nasal Cannula 2.00 10/22/15 16:00 97.8 84 19 155/89 94 I/O 10/22/15 10/22/15 10/22/15 10/23/15 10/23/15 10/23/15 07:00 15:00 23:00 07:00 15:00 23:00 Intake Total 240 ml 480 ml 150 ml 360 ml Balance 240 ml 480 ml 150 ml 360 ml Intake Oral 240 ml 480 ml 150 ml 360 ml # Voids 2 3 3 5 # Bowel Movements 0 0 0 Result Diagram: 10/22/15 0738 10/23/15 0659 Imaging Last Impressions Brain MRI 10/22/15 0000 Signed Impressions: Service Date/Time: September 14:38 - CONCLUSION: 1. No significant interval change is identified. There is stable restricted diffusion in the left basal ganglia representing an area of recent ischemia. There are no findings to indicate hemorrhagic transformation. The previously documented signal change within the right cerebral peduncle has nearly normalized. 2. Stable chronic white matter changes. Camacho Culp MD Neck Magnetic Resonance Angiography 10/21/15 0000 Signed Impressions: Service Date/Time: Wednesday, October 21, 2015 12:52 - CONCLUSION: . 1. Unremarkable MRA of the carotid arteries bilaterally. 2. Nonspecific possible collateral vessels in the soft tissues posterior to the right vertebral artery. The right verbal artery appears to be patent. If clinically indicated, a CTA could be performed for further evaluation. Abiodun Hall MD Head Magnetic Resonance Angiography 10/21/15 0000 Signed Impressions: Service Date/Time: Wednesday, October 21, 2015 12:52 - CONCLUSION: Unremarkable MRA of the brain. Abiodun Hall MD Chest X-Ray 10/19/15 0000 Signed Impressions: Service Date/Time: Monday, October 19, 2015 10:17 - CONCLUSION: 1. Cardiomegaly. 2. Minimal patchy areas of atelectasis at the bases. Camacho Santana MD Head CT 10/15/152116 Signed Impressions: Service Date/Time: September 21:47 - CONCLUSION: 1. No evidence of hemorrhage or mass effect. 2. Lacunar infarct right thalamus, left basal ganglia and adjacent to the left lateral ventricular body. 3. No skull fracture seen. Daryl Varner MD Objective Remarks GENERAL: CM patient in NAD. EYES: No scleral icterus. No injection or drainage. NECK: Supple, trachea midline. No JVD or lymphadenopathy. CARDIOVASCULAR: Regular rate and rhythm without murmurs RESPIRATORY: Breath sounds equal bilaterally. No wheezing GASTROINTESTINAL: Abdomen soft, non-tender, nondistended. EXTREMITIES: No cyanosis, or edema. s/p right BKA. LLE with 1+ edema, several shallow venous stasis ulcerations on anterior calve, no cellulitis. dressing in place NEUROLOGICAL: More alert today. moves extremities upon command A/P Problem List: (1) Cellulitis Status: Resolved (2) Ischemic cardiomyopathy Status: Chronic (3) Diabetes mellitus type 2 in obese Status: Chronic (4) S/P BKA (below knee amputation) unilateral Status: Chronic (5) Acute metabolic encephalopathy Status: Acute (6) Bacteremia Status: Resolved (7) Chronic systolic (congestive) heart failure Status: Chronic (8) Venous stasis ulcer of left lower extremity Status: Chronic (9) Shortness of breath Status: Chronic Assessment and Plan Mr. Amado is a 60 year old male with a history of DM, ischemic cardiomyopathy who was brought to the hospital after he was unresponsive on the floor at home by a family member. - Cellulitis of the left lower ext. with staph coag neg bacteremia in 4/4 tubes. Staph haemolyticus in aerobic tubes, with different sensitivities, contaminant likely. - Chronic venous stasis ulcers on the left lower ext. . Clinically improved- cellulitis resolved. - repeat blood cultures from 10/15 - no growth to date -wound cultures - MSSA, Serratia marcescens - Dr. Messina/ID was on case and recommended treating with keflex and cipro for 10 days (vancomycin DCed). Stop date 10/26. -Intermittent wheezing - resolved. - Acute metabolic encephalopathy - improving. baseline neuro status unknown but there is suspicion of chronic cognitive impairment/dementia. - Per ED, GCS improved to 15 with supportive treatments. -CT head was unremarkable for any acute findings. - uncertain baseline mental status? Continue treatment of underlying medical conditions -MRI showed acute cortical infarct from right cerebral pedicle up through pelvis. MRA of head and neck unremarkable. Neurology following. on ASA and plavix. repeat MRI brain didn't show any worsening problem Pt had a 9 run beat of Vtach. Cardiology evaluated pt and recommends medical management. - Mild elevation of troponin without upward trend in the setting of CKD - No chest pain. Likely due to CKD. - CKD stage 3 associated with T2DM - cr increased today to 1.44, continue to hold lasix. -Hypernatremia - down to 147. continue 100ml water po TID (caution w fluids as pt's EF was 35% on ECHO). Continue to Monitor Na levels -Metabolic acidosis due to CKD -Cardiomyopathy/chronic systolic CHF LVEF 35% on echo 03/2015 - currently no exacerbation. cont coreg, asa, lipitor. hold lasix 20 mg PO BID. cautious w fluids. fluid restriction in place - Diabetes mellitus - cont long acting insulin levemir 10 units sq hs, novolog low SSi. accucheks controlled. -PAD -cont asa Full code. Heparin SQ. Discharge Planning Per CM's note, family wants to take patient home. Per PT's assessment, Pt recommends rehab as he requires total assist for transfer and EZ lift as well. Continue PT while pt is here. Monitor Na levels and creatinine levels. Problem Qualifiers (1) Cellulitis: Micki Gamble MD Oct 23, 2015 15:14
--- NOTE | 2015-10-23 17:44 | HM ---
Date Performed: 10/20/2015 Time Performed: 17:40:00 HOOKUP DATE: 10/20/15 05:40:00 PM Tue ANALYSIS START TIME: 10/20/2015 5:45:00 PM ANALYSIS END TIME: 10/21/2015 4:25:26 AM PATIENT AGE: 60 PATIENT HEIGHT: 74 PATIENT WEIGHT: 274 DRUG LIST: Room 1527 PATIENT DIAGNOSIS: General Weakness/Elevated Troponin TEST NARRATIVE: The patient's average heart rate was 77 BPM. Heart rates greater than 120 B PM were noted < 1% of the time. No episodes of bradycardia were noted. No pauses exceeding 2.0 s econds were noted. 232 ventricular ectopics, which represented < 1% of the total beat count, were noted. The highest ventricular ectopic frequency occurred from 12:00 AM to 01:00 AM Wed. During th is time 32 VE(s) occurred. Ventricular ectopics were observed as 230 isolated beat(s) and as 1 coupl et(s). No runs were noted. 33 supraventricular ectopics, which represented < 1% of the total gisselle t count, were noted. The highest supraventricular ectopic frequency occurred from 10:00 PM to 11:00 PM Tue. During this time 20 SVE(s) occurred. No episodes of ST depression (defined as -1.0 mm or more) were noted in channel 1. No episodes of ST depression (defined as -1.0 mm or more) were noted in channel 2. No episodes of ST depression (defined as -1.0 mm or more) were noted in channel 3. TEST INTERPRETATION: No symptoms are noted and no significant pauses are present. The underlying rhythm is normal sinus with a range of 69 to 164 beats per minute. Occasional premature atrial and v entricular contractions are seen. Rare atrial runs are seen of up to 5 to 10 seconds. There is a 16 b eat wide complex run, which could be ventricular in origin. Signed by : Amado Johnson
--- NOTE | 2015-10-23 19:45 | HHI.PR ---
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 Plan will require penitentiary anticoagulation start coumadin and monitor inr stop plavix and aspirin when inr >2 Diagnosis/Plan: Subjective Subjective Comments No acute events reported Active Medications Current Medications Medications (Trade) Dose Ordered Sig/Estuardo Route Start Time Stop Time Status Last Admin (NS Flush) 2 ml UNSCH PRN FLUSH 10/15/15 23:30 (NS Flush) 2 ml BID FLUSH 10/16/15 09:00 10/22/15 20:43 (Zofran Inj) 4 mg Q6H PRN IVP 10/15/15 23:30 (Dulcolax Supp) 10 mg DAILY PRN MN 10/15/15 23:30 (Milk Of Magnesia Liq) 30 ml Q12H PRN PO 10/15/15 23:30 10/19/15 22:43 (Narcan Inj) 0.4 mg UNSCH PRN IV 10/15/15 23:30 (Ecotrin Ec) 81 mg DAILY PO 10/16/15 09:00 10/23/15 09:44 (Lipitor) 80 mg DAILY PO 10/16/15 09:00 10/23/15 09:44 (Coreg) 12.5 mg BID PO 10/16/15 09:00 10/23/15 09:44 (Levemir Inj) 10 units HS SQ 10/16/15 21:00 10/22/15 20:43 (Imdur) 60 mg DAILY@07 PO 10/16/15 07:00 10/23/15 05:30 (Heparin Inj) 5,000 units Q12HR SQ 10/16/15 09:00 10/23/15 09:44 (D50w (Vial) Inj) 25 ml UNSCH PRN IV 10/17/15 08:15 (Glucagon Inj) 1 mg UNSCH PRN IM/SQ 10/17/15 08:15 (Santyl Oint) 1 applic DAILY TOP 10/17/15 15:00 10/23/15 09:00 (Vasotec) 2.5 mg BID PO 10/20/15 09:00 10/23/15 09:00 (Keflex) 500 mg Q8HR PO 10/20/15 14:00 10/27/15 15:00 10/23/15 13:01 (Cipro) 750 mg Q12HR PO 10/20/15 09:00 10/27/15 19:00 10/23/15 09:44 (Plavix) 75 mg DAILY PO 10/21/15 09:00 10/23/15 09:43 Allergies Allergies Coded Allergies Pen-Vee K (Verified Allergy, Severe, THROAT SWELLS, 10/15/15) Penicillin (Verified Allergy, Unknown, SWELLING, 10/15/15) Uncoded Allergies aspartame ( Adverse Reaction, Severe, severe nose bleed, 10/24/13) Exam I&O / VS 10/22/15 10/22/15 10/23/15 15:00 23:00 07:00 Intake Total 480 ml 150 ml Balance 480 ml 150 ml Intake Oral 480 ml 150 ml # Voids 3 3 # Bowel Movements 0 0 Vital Signs Date Time Temp Pulse Resp B/P Pulse Ox O2 Delivery O2 Flow Rate FiO2 10/23/15 12:00 96.8 77 17 152/84 93 10/23/15 08:59 99 Nasal Cannula 1.00 10/23/15 08:08 96.1 76 20 142/94 96 10/23/15 04:00 95.9 71 18 149/95 97 10/23/15 00:00 95.8 70 18 133/82 99 10/22/15 20:00 96.7 80 28 149/84 96 10/22/15 19:55 98 Nasal Cannula 2.00 Exam Comments alert, speech is normal, follows commands PERRL. EOM--intact no facial asymetry motor --no gross focal deficits Objective Micro and Labs Laboratory Tests Test 10/23/15 06:59 Sodium Level 147 Potassium Level 4.2 Chloride Level 114 Carbon Dioxide Level 27.9 Anion Gap 5 Blood Urea Nitrogen 33 Creatinine 1.44 Estimat Glomerular Filtration 50 Rate Random Glucose 102 Calcium Level 8.6 Magnesium Level 1.6 Balbir Estrella PhD Oct 23, 2015 19:45
[2015-10-23 20:00] VITALS: BP 160/93; PULSE 81; RESP 20; TEMP 96.7; O2SAT 97
[2015-10-23 21:29] LABS: INTERNATIONAL NORMALIZED RATIO 1.2 RATIO; PROTHROMBIN TIME - PATIENT 12.5 SEC (9.8-11.4)
[2015-10-23] MEDS: INSULIN DETEMIR 100 UNITS/ML VIAL SQ SCH (22:00)
[2015-10-24] VITALS (8 sets, daily range): BP systolic 141–169; BP diastolic 73–102; PULSE 74–80; RESP 16–21; TEMP 95.1–97.7; O2SAT 93–97
[2015-10-24] MEDS: CEPHALEXIN MONOHYDRATE 500 MG CAP PO SCH ×3 (06:00→21:04)
[2015-10-24] MEDS: ISOSORBIDE MONONITRATE 60 MG TAB PO SCH (07:00)
[2015-10-24 07:54] LABS: INTERNATIONAL NORMALIZED RATIO 1.2 RATIO; PROTHROMBIN TIME - PATIENT 12.8 SEC (9.8-11.4)
[2015-10-24 08:07] LABS: BICARBONATE 25.5 MEQ/L (21.0-32.0); POTASSIUM 4.2 MEQ/L (3.5-5.1)
[2015-10-24] MEDS: CARVEDILOL 12.5 MG TAB PO SCH ×2 (08:36→20:53)
[2015-10-24] MEDS: ASPIRIN EC 81 MG TABEC PO SCH (08:36)
[2015-10-24] MEDS: CIPROFLOXACIN 750 MG TAB PO SCH ×2 (08:36→20:53)
[2015-10-24] MEDS: CLOPIDOGREL 75 MG TAB PO SCH (08:37)
[2015-10-24] MEDS: ENALAPRIL MALEATE 2.5 MG TAB PO SCH ×2 (08:37→20:53)
[2015-10-24] MEDS: ATORVASTATIN 80 MG TAB PO SCH (08:40)
[2015-10-24] MEDS: HEPARIN SODIUM - SQ 10,000 UNITS/ML VIAL SQ SCH ×2 (08:57→20:54)
[2015-10-24] MEDS: SODIUM CHLORIDE 0.9% FLUSH 5 ML FLUSH FLUSH SCH ×2 (08:57→20:59)
[2015-10-24] MEDS: COLLAGENASE OINT 30 GM TUBE TOP SCH (08:58)
--- NOTE | 2015-10-24 10:21 | HHI.PR ---
Subjective Remarks Mr. Amado is a 60 year old male with a history of ischemic cardiomyopathy (EF 35-40%), CABG, stent placement who was found on the floor by family members and subsequently brought to the ED for altered mental status 10/24/15-patient seen and examined; afebrile and denies any left lower extremities pain Objective Vitals Vital Signs Date Time Temp Pulse Resp B/P Pulse Ox O2 Delivery O2 Flow Rate FiO2 10/24/15 08:15 95.5 80 16 169/102 94 10/24/15 04:00 96.9 79 21 162/99 93 10/24/15 00:00 96.9 75 20 163/98 94 10/23/15 20:00 96.7 81 20 160/93 97 10/23/15 12:00 96.8 77 17 152/84 93 I/O 10/23/15 10/23/15 10/23/15 10/24/15 10/24/15 10/24/15 06:59 14:59 22:59 06:59 14:59 22:59 Intake Total 150 ml 360 ml Balance 150 ml 360 ml Intake Oral 150 ml 360 ml # Voids 5 1 1 # Bowel Movements 0 Result Diagram: 10/22/15 0738 10/24/15 0656 Imaging Last Impressions Brain MRI 10/22/15 0000 Signed Impressions: Service Date/Time: September 14:38 - CONCLUSION: 1. No significant interval change is identified. There is stable restricted diffusion in the left basal ganglia representing an area of recent ischemia. There are no findings to indicate hemorrhagic transformation. The previously documented signal change within the right cerebral peduncle has nearly normalized. 2. Stable chronic white matter changes. Camacho Culp MD Neck Magnetic Resonance Angiography 10/21/15 0000 Signed Impressions: Service Date/Time: Wednesday, October 21, 2015 12:52 - CONCLUSION: . 1. Unremarkable MRA of the carotid arteries bilaterally. 2. Nonspecific possible collateral vessels in the soft tissues posterior to the right vertebral artery. The right verbal artery appears to be patent. If clinically indicated, a CTA could be performed for further evaluation. Abiodun Hall MD Head Magnetic Resonance Angiography 10/21/15 0000 Signed Impressions: Service Date/Time: Wednesday, October 21, 2015 12:52 - CONCLUSION: Unremarkable MRA of the brain. Abiodun Hall MD Chest X-Ray 10/19/15 0000 Signed Impressions: Service Date/Time: Monday, October 19, 2015 10:17 - CONCLUSION: 1. Cardiomegaly. 2. Minimal patchy areas of atelectasis at the bases. Camacho Santana MD Head CT 10/15/15 2117 Signed Impressions: Service Date/Time: September 21:47 - CONCLUSION: 1. No evidence of hemorrhage or mass effect. 2. Lacunar infarct right thalamus, left basal ganglia and adjacent to the left lateral ventricular body. 3. No skull fracture seen. Daryl Varner MD Objective Remarks GENERAL: Well-nourished, well-developed patient. EYES: No scleral icterus. No injection or drainage. NECK: Supple, trachea midline. No JVD or lymphadenopathy. CARDIOVASCULAR: Regular rate and rhythm without murmurs RESPIRATORY: Breath sounds equal bilaterally. No wheezing GASTROINTESTINAL: Abdomen soft, non-tender, nondistended. EXTREMITIES: No cyanosis, or edema. s/p right BKA. LLE with 1+ edema, several shallow venous stasis ulcerations on anterior calve, no cellulitis. dressing in place BACK: Nontender without obvious deformity. No CVA tenderness. A/P Problem List: (1) Cellulitis Status: Resolved (2) Ischemic cardiomyopathy Status: Chronic (3) Diabetes mellitus type 2 in obese Status: Chronic (4) S/P BKA (below knee amputation) unilateral Status: Chronic (5) Acute metabolic encephalopathy Status: Acute (6) Bacteremia Status: Resolved (7) Chronic systolic (congestive) heart failure Status: Chronic (8) Venous stasis ulcer of left lower extremity Status: Chronic (9) Shortness of breath Status: Chronic Assessment and Plan 60-year-old male with - Cellulitis of the left lower ext. with staph coag neg bacteremia in 4/4 tubes. Staph haemolyticus in aerobic tubes, with different sensitivities, contaminant likely. - Chronic venous stasis ulcers on the left lower ext. . Clinically improved- cellulitis resolved. - repeat blood cultures from 10/15 - no growth to date -wound cultures - MSSA, Serratia marcescens - Dr. Messina/TISHA was on case and recommended treating with keflex and cipro for 10 days (vancomycin DCed). Stop date 10/26. -Intermittent wheezing - resolved. - Acute metabolic encephalopathy - improved. baseline neuro status unknown but there is suspicion of chronic cognitive impairment/dementia. -CT head was unremarkable for any acute findings. - Continue treatment of underlying medical conditions -MRI showed acute cortical infarct from right cerebral pedicle up through pelvis. MRA of head and neck unremarkable. Neurology following. on ASA and plavix. repeat MRI brain didn't show any worsening problem Pt had a 9 run beat of Vtach. Cardiology evaluated pt and recommends medical management. - Mild elevation of troponin without upward trend in the setting of CKD - No chest pain. Likely due to CKD. - CKD stage 3 associated with T2DM - continue to hold lasix. -Hypernatremia - down to 147. continue 100ml water po TID (caution w fluids as pt's EF was 35% on ECHO). Continue to Monitor Na levels -Metabolic acidosis due to CKD -Cardiomyopathy/chronic systolic CHF LVEF 35% on echo 03/2015 - currently no exacerbation.Increase Coreg to 25mg BID and cont asa, Lipitor. hold Lasix 20 mg PO BID. give extra Coreg 12.5mg PO X 1 now.cautious w fluids. fluid restriction in place - Diabetes mellitus - cont long acting insulin Levemir 10 units sq HS, Novolog low SSI. Accu chek controlled. -PAD -cont asa Full code. Heparin SQ. Problem Qualifiers (1) Cellulitis: Jakub Quevedo MD Oct 24, 2015 10:21
[2015-10-24] MEDS: INSULIN ASPART SUPPLEMENTAL SCALE SQ SCH ×3 (11:00→21:00)
[2015-10-24] MEDS ORDERED: CARVEDILOL 12.5 MG TAB PO ONE (11:00)
[2015-10-24] MEDS: WARFARIN SOD 5 MG TAB PO SCH (16:32)
[2015-10-24] MEDS: INSULIN DETEMIR 100 UNITS/ML VIAL SQ SCH (21:04)
[2015-10-25] VITALS (7 sets, daily range): BP systolic 149–179; BP diastolic 83–101; PULSE 73–77; RESP 16–20; TEMP 95.7–97.6; O2SAT 92–99
[2015-10-25 04:54] LABS: AUTOMATED NEUTROPHIL # 5.9 TH/MM3 (1.8-7.7); BASOPHIL % 0.4 % (0.0-2.0); EOSINOPHIL # 0.2 TH/MM3 (0-0.4); EOSINOPHIL % 2.4 % (0.0-4.0); HEMO FLAGS DIFF FINAL; LYMPH % 8.7 % (9.0-44.0); LYMPHOCYTE # 0.6 TH/MM3 (1.0-4.8); MEAN CELL VOLUME 83.9 FL (80.0-100.0); MEAN CORPUSCULAR HEMOGLOBIN 27.1 PG (27.0-34.0); MEAN CORPUSCULAR HGB CONC 32.3 % (32.0-36.0); MONO % 6.1 % (0.0-8.0); NEUT % 82.4 % (16.0-70.0); PLATELET COUNT 172 TH/MM3 (150-450); RED BLOOD COUNT 3.93 MIL/MM3 (4.50-5.90); RED CELL DISTRIBUTION WIDTH 15.2 % (11.6-17.2); WHITE BLOOD COUNT 7.2 TH/MM3 (4.0-11.0)
[2015-10-25 05:14] LABS: BICARBONATE 27.4 MEQ/L (21.0-32.0); POTASSIUM 4.2 MEQ/L (3.5-5.1)
[2015-10-25] MEDS: INSULIN ASPART SUPPLEMENTAL SCALE SQ SCH ×4 (06:18→21:00)
[2015-10-25] MEDS: CEPHALEXIN MONOHYDRATE 500 MG CAP PO SCH ×3 (06:18→20:24)
[2015-10-25] MEDS: ISOSORBIDE MONONITRATE 60 MG TAB PO SCH (06:18)
[2015-10-25] MEDS: RESP: ALBUTEROL 2.5 MG/IPRATROPIUM 0.5 MG NEB (PRN) NEB (08:14)
[2015-10-25] MEDS: ASPIRIN EC 81 MG TABEC PO SCH (08:29)
[2015-10-25] MEDS: ATORVASTATIN 80 MG TAB PO SCH (08:29)
[2015-10-25] MEDS: CARVEDILOL 12.5 MG TAB PO SCH ×2 (08:29→20:23)
[2015-10-25] MEDS: HEPARIN SODIUM - SQ 10,000 UNITS/ML VIAL SQ SCH ×2 (08:29→20:30)
[2015-10-25] MEDS: CIPROFLOXACIN 750 MG TAB PO SCH ×2 (08:30→20:24)
[2015-10-25] MEDS: ENALAPRIL MALEATE 2.5 MG TAB PO SCH ×2 (08:30→20:24)
[2015-10-25] MEDS: CLOPIDOGREL 75 MG TAB PO SCH (08:30)
[2015-10-25] MEDS: SODIUM CHLORIDE 0.9% FLUSH 5 ML FLUSH FLUSH SCH ×2 (08:31→20:30)
[2015-10-25] MEDS: COLLAGENASE OINT 30 GM TUBE TOP SCH (08:31)
--- NOTE | 2015-10-25 09:21 | HHI.PR ---
Subjective Remarks Mr. Amado is a 60 year old male with a history of ischemic cardiomyopathy (EF 35-40%), CABG, stent placement who was found on the floor by family members and subsequently brought to the ED for altered mental status 10/24/15-patient seen and examined; afebrile and denies any left lower extremities pain 10/25/15-patient seen and examined, appears short of breath and confused this morning. Afebrile Objective Vitals Vital Signs Date Time Temp Pulse Resp B/P Pulse Ox O2 Delivery O2 Flow Rate FiO2 10/25/15 08:50 96.2 77 20 173/101 99 10/25/15 08:17 96 Nasal Cannula 2.00 10/25/15 04:00 97.6 76 18 162/97 92 10/24/15 23:45 97.7 74 20 141/98 94 10/24/15 21:33 96 Nasal Cannula 2.50 10/24/15 20:09 97.3 78 18 166/101 93 10/24/15 16:39 96.0 74 20 141/73 97 10/24/15 11:50 95.1 79 20 157/97 96 I/O 10/24/15 10/24/15 10/24/15 10/25/15 10/25/15 10/25/15 07:00 15:00 23:00 07:00 15:00 23:00 Intake Total 360 ml 50 ml Balance 360 ml 50 ml Intake Oral 360 ml 50 ml # Voids 1 2 2 2 # Bowel Movements 0 0 Result Diagram: 10/25/15 0401 10/25/15 0401 Imaging Last Impressions Brain MRI 10/22/15 0000 Signed Impressions: Service Date/Time: September 14:38 - CONCLUSION: 1. No significant interval change is identified. There is stable restricted diffusion in the left basal ganglia representing an area of recent ischemia. There are no findings to indicate hemorrhagic transformation. The previously documented signal change within the right cerebral peduncle has nearly normalized. 2. Stable chronic white matter changes. Camacho Culp MD Neck Magnetic Resonance Angiography 10/21/15 0000 Signed Impressions: Service Date/Time: Wednesday, October 21, 2015 12:52 - CONCLUSION: . 1. Unremarkable MRA of the carotid arteries bilaterally. 2. Nonspecific possible collateral vessels in the soft tissues posterior to the right vertebral artery. The right verbal artery appears to be patent. If clinically indicated, a CTA could be performed for further evaluation. Abiodun Hall MD Head Magnetic Resonance Angiography 10/21/15 0000 Signed Impressions: Service Date/Time: Wednesday, October 21, 2015 12:52 - CONCLUSION: Unremarkable MRA of the brain. Abiodun Hall MD Chest X-Ray 10/19/15 0000 Signed Impressions: Service Date/Time: Monday, October 19, 2015 10:17 - CONCLUSION: 1. Cardiomegaly. 2. Minimal patchy areas of atelectasis at the bases. Camacho Santana MD Head CT 10/15/152116 Signed Impressions: Service Date/Time: September 21:47 - CONCLUSION: 1. No evidence of hemorrhage or mass effect. 2. Lacunar infarct right thalamus, left basal ganglia and adjacent to the left lateral ventricular body. 3. No skull fracture seen. Daryl Varner MD Objective Remarks GENERAL: Well-nourished, well-developed patient. EYES: No scleral icterus. No injection or drainage. NECK: Supple, trachea midline. No JVD or lymphadenopathy. CARDIOVASCULAR: Regular rate and rhythm without murmurs RESPIRATORY: Breath sounds equal bilaterally. No wheezing GASTROINTESTINAL: Abdomen soft, non-tender, nondistended. EXTREMITIES: No cyanosis, or edema. s/p right BKA. LLE with 1+ edema, several shallow venous stasis ulcerations on anterior calve, no cellulitis. dressing in place BACK: Nontender without obvious deformity. No CVA tenderness. A/P Problem List: (1) Cellulitis Status: Resolved (2) Ischemic cardiomyopathy Status: Chronic (3) Diabetes mellitus type 2 in obese Status: Chronic (4) S/P BKA (below knee amputation) unilateral Status: Chronic (5) Acute metabolic encephalopathy Status: Acute (6) Bacteremia Status: Resolved (7) Chronic systolic (congestive) heart failure Status: Chronic (8) Venous stasis ulcer of left lower extremity Status: Chronic (9) Shortness of breath Status: Chronic Assessment and Plan 60-year-old male with - Cellulitis of the left lower ext. with staph coag neg bacteremia in 4/4 tubes. Staph haemolyticus in aerobic tubes, with different sensitivities, contaminant likely. - Chronic venous stasis ulcers on the left lower ext. . Clinically improved- cellulitis resolved. - repeat blood cultures from 10/15 - no growth to date -wound cultures - MSSA, Serratia marcescens - Dr. Messina/TISHA ff; On Keflex and Cipro for 10 days (vancomycin DCed). Stop date 10/26. - Acute metabolic encephalopathy - improved. baseline neuro status unknown but there is suspicion of chronic cognitive impairment/dementia. -CT head was unremarkable for any acute findings. - Continue treatment of underlying medical conditions -MRI showed acute cortical infarct from right cerebral pedicle up through pelvis. MRA of head and neck unremarkable. Neurology following. on ASA and plavix. repeat MRI brain didn't show any worsening problem Pt had a 9 run beat of Vtach. Cardiology evaluated pt and recommends medical management. - Mild elevation of troponin without upward trend in the setting of CKD - No chest pain. Likely due to CKD. - CKD stage 3 associated with T2DM - continue to hold lasix. -Hypernatremia - down to 147. continue 100ml water po TID (caution w fluids as pt's EF was 35% on ECHO). Continue to Monitor Na levels -Metabolic acidosis due to CKD ; resolved -Cardiomyopathy/chronic systolic CHF LVEF 35% on echo 03/2015 - currently no exacerbation.on Coreg 25mg BID and cont asa, Lipitor. hold Lasix 20 mg PO BID.cautious w fluids. fluid restriction in place - Diabetes mellitus - cont long acting insulin Levemir 10 units sq HS, Novolog low SSI. Accu chek controlled. -PAD -cont asa -shortness of breath: CXR to rule out pulmonary congestion versus infiltrate, duo Neb scheduled and when necessary Full code. Heparin SQ. Problem Qualifiers (1) Cellulitis: Jkaub Quevedo MD Oct 25, 2015 09:21
[2015-10-25 10:04] LABS: INTERNATIONAL NORMALIZED RATIO 1.3 RATIO
--- NOTE | 2015-10-25 10:22 | RADRPT ---
EXAM DATE/TIME: 10/25/2015 09:35 [facility] COMPARISON: CHEST SINGLE AP, October 19, 2015, 10:17. INDICATIONS : Shortness of breath. MEDICAL HISTORY : Congestive heart failure. SURGICAL HISTORY : CABG. ENCOUNTER: Subsequent ACUITY: 2 weeks PAIN SCORE: 0/10 LOCATION: Bilateral chest FINDINGS: The heart is enlarged. Very mild interstitial edema persists. Sternal wires from previous biopsy ar e noted. There is no pneumothorax. The most superior wire is fractured. CONCLUSION: Mild to moderate congestive failure, relatively stable in the interval. Didier Clay MD FACR on October 25, 2015 at 10:13 Board Certified Radiologist. This report was verified electronically.
[2015-10-25] MEDS: RESP: ALBUTEROL 2.5 MG/IPRATROPIUM 0.5 MG NEB (SCH) NEB ×2 (13:32→19:30)
[2015-10-25] MEDS: WARFARIN SOD 5 MG TAB PO SCH (16:31)
[2015-10-25] MEDS: INSULIN DETEMIR 100 UNITS/ML VIAL SQ SCH (22:27)
[2015-10-26] VITALS (8 sets, daily range): BP systolic 140–159; BP diastolic 77–97; PULSE 63–80; RESP 18–22; TEMP 96.2–97; O2SAT 95–100
[2015-10-26] MEDS: ISOSORBIDE MONONITRATE 60 MG TAB PO SCH (05:52)
[2015-10-26] MEDS: CEPHALEXIN MONOHYDRATE 500 MG CAP PO SCH ×3 (05:52→20:52)
[2015-10-26] MEDS: INSULIN ASPART SUPPLEMENTAL SCALE SQ SCH ×4 (06:16→20:54)
[2015-10-26 07:14] LABS: INTERNATIONAL NORMALIZED RATIO 1.6 RATIO; PROTHROMBIN TIME - PATIENT 17.1 SEC (9.8-11.4)
[2015-10-26] MEDS: RESP: ALBUTEROL 2.5 MG/IPRATROPIUM 0.5 MG NEB (SCH) NEB ×3 (07:39→21:25)
[2015-10-26] MEDS: ASPIRIN EC 81 MG TABEC PO SCH (08:53)
[2015-10-26] MEDS: ATORVASTATIN 80 MG TAB PO SCH (08:53)
[2015-10-26] MEDS: CARVEDILOL 12.5 MG TAB PO SCH ×2 (08:53→20:53)
[2015-10-26] MEDS: HEPARIN SODIUM - SQ 10,000 UNITS/ML VIAL SQ SCH ×2 (08:54→20:54)
[2015-10-26] MEDS: ENALAPRIL MALEATE 2.5 MG TAB PO SCH ×2 (08:54→20:52)
[2015-10-26] MEDS: CLOPIDOGREL 75 MG TAB PO SCH (08:54)
[2015-10-26] MEDS: CIPROFLOXACIN 750 MG TAB PO SCH ×2 (08:54→20:52)
[2015-10-26] MEDS: SODIUM CHLORIDE 0.9% FLUSH 5 ML FLUSH FLUSH SCH ×2 (09:00→20:52)
[2015-10-26] MEDS: COLLAGENASE OINT 30 GM TUBE TOP SCH (09:03)
--- NOTE | 2015-10-26 09:26 | HHI.PR ---
Subjective Remarks Mr. Amado is a 60 year old male with a history of ischemic cardiomyopathy (EF 35-40%), CABG, stent placement who was found on the floor by family members and subsequently brought to the ED for altered mental status 10/24/15-patient seen and examined; afebrile and denies any left lower extremities pain 10/25/15-patient seen and examined, appears short of breath and confused this morning. Afebrile 10/26/15-patient seen and examined; appears confused, oriented to self but not to place and date. Afebrile Objective Vitals Vital Signs Date Time Temp Pulse Resp B/P Pulse Ox O2 Delivery O2 Flow Rate FiO2 10/26/15 08:00 96.5 75 22 140/77 95 10/26/15 07:39 95 21 10/26/15 04:05 96.7 68 18 159/93 97 10/26/15 00:00 96.2 71 18 141/83 98 10/25/15 20:02 96.9 73 18 179/98 95 10/25/15 19:30 92 Nasal Cannula 2.00 10/25/15 16:25 95.7 74 16 163/93 99 10/25/15 11:48 95.8 73 19 149/83 96 I/O 10/25/15 10/25/15 10/25/15 10/26/15 10/26/15 10/26/15 07:00 15:00 23:00 07:00 15:00 23:00 Intake Total 50 ml Output Total 2 ml Balance 50 ml -2 ml Intake Oral 50 ml Output Urine Total 2 ml # Voids 2 1 1 2 # Bowel Movements 0 1 0 Result Diagram: 10/25/15 0401 10/25/15 0401 Imaging Last Impressions Chest X-Ray 10/25/15 0000 Signed Impressions: Service Date/Time: Sunday, October 25, 2015 09:35 - CONCLUSION: Mild to moderate congestive failure, relatively stable in the interval. Didier Clay MD FACR Brain MRI 10/22/15 0000 Signed Impressions: Service Date/Time: September 14:38 - CONCLUSION: 1. No significant interval change is identified. There is stable restricted diffusion in the left basal ganglia representing an area of recent ischemia. There are no findings to indicate hemorrhagic transformation. The previously documented signal change within the right cerebral peduncle has nearly normalized. 2. Stable chronic white matter changes. Camacho Culp MD Neck Magnetic Resonance Angiography 10/21/15 Signed Impressions: Service Date/Time: Wednesday, October 21, 2015 12:52 - CONCLUSION: . 1. Unremarkable MRA of the carotid arteries bilaterally. 2. Nonspecific possible collateral vessels in the soft tissues posterior to the right vertebral artery. The right verbal artery appears to be patent. If clinically indicated, a CTA could be performed for further evaluation. Abiodun Hall MD Head Magnetic Resonance Angiography 10/21/15 Signed Impressions: Service Date/Time: Wednesday, October 21, 2015 12:52 - CONCLUSION: Unremarkable MRA of the brain. Abiodun Hall MD Head CT 10/15/152116 Signed Impressions: Service Date/Time: September 21:47 - CONCLUSION: 1. No evidence of hemorrhage or mass effect. 2. Lacunar infarct right thalamus, left basal ganglia and adjacent to the left lateral ventricular body. 3. No skull fracture seen. Daryl Varner MD Objective Remarks GENERAL: Well-nourished, well-developed patient. EYES: No scleral icterus. No injection or drainage. NECK: Supple, trachea midline. No JVD or lymphadenopathy. CARDIOVASCULAR: Regular rate and rhythm without murmurs RESPIRATORY: Breath sounds equal bilaterally. No wheezing GASTROINTESTINAL: Abdomen soft, non-tender, nondistended. EXTREMITIES: No cyanosis, or edema. s/p right BKA. LLE with 1+ edema, several shallow venous stasis ulcerations on anterior calve, no cellulitis. dressing in place BACK: Nontender without obvious deformity. No CVA tenderness. A/P Problem List: (1) Cellulitis Status: Resolved (2) Ischemic cardiomyopathy Status: Chronic (3) Diabetes mellitus type 2 in obese Status: Chronic (4) S/P BKA (below knee amputation) unilateral Status: Chronic (5) Acute metabolic encephalopathy Status: Acute (6) Bacteremia Status: Resolved (7) Chronic systolic (congestive) heart failure Status: Chronic (8) Venous stasis ulcer of left lower extremity Status: Chronic (9) Shortness of breath Status: Chronic Assessment and Plan 60-year-old male with - Cellulitis of the left lower ext. with staph coag neg bacteremia in 4/4 tubes. Staph haemolyticus in aerobic tubes, with different sensitivities, contaminant likely. - Chronic venous stasis ulcers on the left lower ext. . Clinically improved- cellulitis resolved. - repeat blood cultures from 10/15 - no growth to date -wound cultures - MSSA, Serratia marcescens - Dr. Messina/ID ff; On Keflex and Cipro for 10 days (vancomycin DCed). Stop date 10/26. - Acute metabolic encephalopathy - improved. baseline neuro status unknown but there is suspicion of chronic cognitive impairment/dementia. -CT head was unremarkable for any acute findings. - Continue treatment of underlying medical conditions -MRI showed acute cortical infarct from right cerebral pedicle up through pelvis. MRA of head and neck unremarkable. Neurology following. on ASA and plavix. repeat MRI brain didn't show any worsening problem Pt had a 9 run beat of Vtach. Cardiology evaluated pt and recommends medical management. - Mild elevation of troponin without upward trend in the setting of CKD - No chest pain. Likely due to CKD. - CKD stage 3 associated with T2DM - continue to hold lasix. -Hypernatremia - improving -Metabolic acidosis due to CKD ; resolved -Cardiomyopathy/chronic systolic CHF LVEF 35% on echo 03/2015 - currently no exacerbation.on Coreg 25mg BID and cont asa, Lipitor. hold Lasix 20 mg PO BID. give Lasix 40 mg IV 1 secondary to evidence of mild pulmonary congestion on chest x-ray. Restart Lasix 20 by mouth twice a day starting tomorrow 10/27/15 - Diabetes mellitus - cont long acting insulin Levemir 10 units sq HS, Novolog low SSI. Accu chek controlled. -PAD -cont asa -shortness of breath: CXR to rule out pulmonary congestion versus infiltrate, duo Neb scheduled and when necessary Encephalopathy: Check ammonia level and treat accordingly Full code. Heparin SQ. Problem Qualifiers (1) Cellulitis: Jakub Quevedo MD Oct 26, 2015 09:26
[2015-10-26] MEDS ORDERED: FUROSEMIDE 40 MG/4 ML VIAL IV PUSH ONE (09:30)
[2015-10-26] MEDS: WARFARIN SOD 5 MG TAB PO SCH (17:26)
[2015-10-26] MEDS: INSULIN DETEMIR 100 UNITS/ML VIAL SQ SCH (20:54)
[2015-10-27] VITALS (8 sets, daily range): BP systolic 131–182; BP diastolic 81–100; PULSE 70–77; RESP 18–21; TEMP 96.8–97.9; O2SAT 93–100
[2015-10-27] MEDS: CEPHALEXIN MONOHYDRATE 500 MG CAP PO SCH ×2 (06:05→14:06)
[2015-10-27] MEDS: ISOSORBIDE MONONITRATE 60 MG TAB PO SCH (06:05)
[2015-10-27] MEDS: INSULIN ASPART SUPPLEMENTAL SCALE SQ SCH ×4 (06:11→20:38)
[2015-10-27 08:08] LABS: INTERNATIONAL NORMALIZED RATIO 2.4 RATIO; PROTHROMBIN TIME - PATIENT 26.7 SEC (9.8-11.4)
[2015-10-27 08:32] LABS: ALKALINE PHOSPHATASE 151 U/L (45-117); ALT (GPT) 36 U/L (12-78); ANION GAP 9 MEQ/L (5-15); AST (GOT) 25 U/L (15-37); BICARBONATE 31.4 MEQ/L (21.0-32.0); BLOOD UREA NITROGEN 32 MG/DL (7-18); CHLORIDE 109 MEQ/L (98-107); GLOMERULAR FILTRATION RATE 41 ML/MIN (>89); SODIUM (NA) 149 MEQ/L (136-145); TOTAL BILIRUBIN ADULT 0.5 MG/DL (0.2-1.0)
[2015-10-27] MEDS: ATORVASTATIN 80 MG TAB PO SCH (08:50)
[2015-10-27] MEDS: CARVEDILOL 12.5 MG TAB PO SCH ×2 (08:50→20:34)
[2015-10-27] MEDS: CIPROFLOXACIN 750 MG TAB PO SCH (08:50)
[2015-10-27] MEDS: CLOPIDOGREL 75 MG TAB PO SCH (08:50)
[2015-10-27] MEDS: HEPARIN SODIUM - SQ 10,000 UNITS/ML VIAL SQ SCH ×2 (08:51→20:34)
[2015-10-27] MEDS: ENALAPRIL MALEATE 2.5 MG TAB PO SCH ×2 (08:51→20:34)
[2015-10-27] MEDS: SODIUM CHLORIDE 0.9% FLUSH 5 ML FLUSH FLUSH SCH ×2 (08:51→20:38)
[2015-10-27] MEDS: COLLAGENASE OINT 30 GM TUBE TOP SCH (08:51)
[2015-10-27] MEDS: ASPIRIN EC 81 MG TABEC PO SCH (08:51)
[2015-10-27] MEDS: RESP: ALBUTEROL 2.5 MG/IPRATROPIUM 0.5 MG NEB (SCH) NEB ×3 (09:00→19:38)
--- NOTE | 2015-10-27 10:14 | HHI.PR ---
Subjective Remarks Mr. Amado is a 60 year old male with a history of ischemic cardiomyopathy (EF 35-40%), CABG, stent placement who was found on the floor by family members and subsequently brought to the ED for altered mental status 10/24/15-patient seen and examined; afebrile and denies any left lower extremities pain 10/25/15-patient seen and examined, appears short of breath and confused this morning. Afebrile 10/26/15-patient seen and examined; appears confused, oriented to self but not to place and date. Afebrile 10/27/15-patient seen and examined; still confused however alert to self and place. VS stable. Aspiration? Objective Vitals Vital Signs Date Time Temp Pulse Resp B/P Pulse Ox O2 Delivery O2 Flow Rate FiO2 10/27/15 09:39 96.8 74 18 168/86 97 10/27/15 09:01 99 Nasal Cannula 4.00 10/27/15 05:45 97.0 73 21 182/100 94 10/27/15 00:30 96.9 70 20 165/99 98 10/26/15 21:25 100 Nasal Cannula 2.00 10/26/15 20:45 97.0 80 21 147/97 98 10/26/15 16:00 97.0 71 22 148/95 95 10/26/15 12:00 96.2 63 22 140/95 95 I/O 10/26/15 10/26/15 10/26/15 10/27/15 10/27/15 10/27/15 07:00 15:00 23:00 07:00 15:00 23:00 Intake Total 480 ml 400 ml 100 ml Output Total 2 ml Balance -2 ml 480 ml 400 ml 100 ml Intake Oral 480 ml 400 ml 100 ml Output Urine Total 2 ml # Voids 2 2 3 # Bowel Movements 0 0 0 Result Diagram: 10/25/15 0401 10/27/15 0644 Imaging Last Impressions Chest X-Ray 10/25/15 0000 Signed Impressions: Service Date/Time: Sunday, October 25, 2015 09:35 - CONCLUSION: Mild to moderate congestive failure, relatively stable in the interval. Didier Clay MD FACR Brain MRI 10/22/15 0000 Signed Impressions: Service Date/Time: September 14:38 - CONCLUSION: 1. No significant interval change is identified. There is stable restricted diffusion in the left basal ganglia representing an area of recent ischemia. There are no findings to indicate hemorrhagic transformation. The previously documented signal change within the right cerebral peduncle has nearly normalized. 2. Stable chronic white matter changes. Camacho Culp MD Neck Magnetic Resonance Angiography 10/21/15 0000 Signed Impressions: Service Date/Time: Wednesday, October 21, 2015 12:52 - CONCLUSION: . 1. Unremarkable MRA of the carotid arteries bilaterally. 2. Nonspecific possible collateral vessels in the soft tissues posterior to the right vertebral artery. The right verbal artery appears to be patent. If clinically indicated, a CTA could be performed for further evaluation. Abiodun Hall MD Head Magnetic Resonance Angiography 10/21/15 0000 Signed Impressions: Service Date/Time: Wednesday, October 21, 2015 12:52 - CONCLUSION: Unremarkable MRA of the brain. Abiodun Hall MD Head CT 10/15/152116 Signed Impressions: Service Date/Time: September 21:47 - CONCLUSION: 1. No evidence of hemorrhage or mass effect. 2. Lacunar infarct right thalamus, left basal ganglia and adjacent to the left lateral ventricular body. 3. No skull fracture seen. Daryl Varner MD Objective Remarks GENERAL: Well-nourished, well-developed patient. EYES: No scleral icterus. No injection or drainage. NECK: Supple, trachea midline. No JVD or lymphadenopathy. CARDIOVASCULAR: Regular rate and rhythm without murmurs RESPIRATORY: Breath sounds equal bilaterally. No wheezing GASTROINTESTINAL: Abdomen soft, non-tender, nondistended. EXTREMITIES: No cyanosis, or edema. s/p right BKA. LLE with 1+ edema, several shallow venous stasis ulcerations on anterior calve, no cellulitis. dressing in place BACK: Nontender without obvious deformity. No CVA tenderness. A/P Problem List: (1) Cellulitis Status: Resolved (2) Ischemic cardiomyopathy Status: Chronic (3) Diabetes mellitus type 2 in obese Status: Chronic (4) S/P BKA (below knee amputation) unilateral Status: Chronic (5) Acute metabolic encephalopathy Status: Acute (6) Bacteremia Status: Resolved (7) Chronic systolic (congestive) heart failure Status: Chronic (8) Venous stasis ulcer of left lower extremity Status: Chronic (9) Shortness of breath Status: Chronic Assessment and Plan 60-year-old male with - Cellulitis of the left lower ext. with staph coag neg bacteremia in 4/4 tubes. Staph haemolyticus in aerobic tubes, with different sensitivities, contaminant likely. - Chronic venous stasis ulcers on the left lower ext. . Clinically improved- cellulitis resolved. - repeat blood cultures from 10/15 - no growth to date -wound cultures - MSSA, Serratia marcescens - Dr. Messina/ID ff; On Keflex and Cipro for 10 days (vancomycin DCed). Stop date today 10/26. - Acute metabolic encephalopathy - improved. baseline neuro status unknown but there is suspicion of chronic cognitive impairment/dementia. -CT head was unremarkable for any acute findings. - Continue treatment of underlying medical conditions -MRI showed acute cortical infarct from right cerebral pedicle up through pelvis. MRA of head and neck unremarkable. Neurology following. on ASA and plavix. repeat MRI brain didn't show any worsening problem Pt had a 9 run beat of Vtach. Cardiology evaluated pt and recommends medical management. - Mild elevation of troponin without upward trend in the setting of CKD - No chest pain. Likely due to CKD. - CKD stage 3 associated with T2DM - continue to hold lasix. -Hypernatremia - improving -Metabolic acidosis due to CKD ; resolved -Cardiomyopathy/chronic systolic CHF LVEF 35% on echo 03/2015 - currently no exacerbation.on Coreg 25mg BID and cont asa, Lipitor. hold Lasix 20 mg PO BID. give Lasix 40 mg IV 1 secondary to evidence of mild pulmonary congestion on chest x-ray. Restart Lasix 20 by mouth twice a day starting tomorrow 10/27/15 - Diabetes mellitus - cont long acting insulin Levemir 10 units sq HS, Novolog low SSI. Accu chek controlled. -PAD -cont asa -shortness of breath: CXR to rule out pulmonary congestion versus infiltrate, duo Neb scheduled and when necessary Encephalopathy:may be 2/2 suspicion of chronic cognitive impairment/dementia however Mildly elevated ammonia level ; Obtain Modified barium swallow to r/o aspiration Full code. Heparin SQ. Problem Qualifiers (1) Cellulitis: Jakub Quevedo MD Oct 27, 2015 10:14
--- NOTE | 2015-10-27 11:28 | RADRPT ---
EXAM DATE/TIME: 10/27/2015 00:00 [facility] COMPARISON: No previous studies available for comparison. INDICATIONS : Dysphagia, possible aspiration. FLUORO TIME: 3.9 minutes CONTRAST: Dose as prescribed by speech pathologist. MEDICAL HISTORY : Myocardial infarction. SURGICAL HISTORY : None. ENCOUNTER: Initial ACUITY: 1 day PAIN SCORE: Non-responsive. LOCATION: esophagus. FINDINGS: A modified barium swallow was performed with speech pathology. Patient was given a variety of liquids to swallow. There was delayed swallowing mechanism with pooling in the vallecula. No evidence of penetration or a spiration. For a full detailed report, see report by the speech pathologist. CONCLUSION: Negative for penetration or aspiration. Please see speech pathology report. Tai Cohen MD on October 27, 2015 at 11:24 Board Certified Radiologist. This report was verified electronically.
[2015-10-27] MEDS: WARFARIN SOD 5 MG TAB PO SCH (16:16)
[2015-10-27] MEDS: INSULIN DETEMIR 100 UNITS/ML VIAL SQ SCH (20:34)
[2015-10-28] MEDS: ISOSORBIDE MONONITRATE 60 MG TAB PO SCH (05:55)
[2015-10-28] MEDS: INSULIN ASPART SUPPLEMENTAL SCALE SQ SCH ×4 (05:58→21:00)
[2015-10-28 07:25] LABS: AUTOMATED NEUTROPHIL # 7.3 TH/MM3 (1.8-7.7); BASOPHIL % 0.3 % (0.0-2.0); EOSINOPHIL # 0.4 TH/MM3 (0-0.4); HEMATOCRIT 34.3 % (39.0-51.0); HEMO FLAGS DIFF FINAL; LYMPHOCYTE # 0.7 TH/MM3 (1.0-4.8); MEAN CELL VOLUME 85.9 FL (80.0-100.0); MEAN CORPUSCULAR HEMOGLOBIN 27.4 PG (27.0-34.0); MEAN CORPUSCULAR HGB CONC 31.9 % (32.0-36.0); MONO % 7.3 % (0.0-8.0); NEUT % 80.4 % (16.0-70.0); PLATELET COUNT 136 TH/MM3 (150-450); RED CELL DISTRIBUTION WIDTH 15.7 % (11.6-17.2); WHITE BLOOD COUNT 9.1 TH/MM3 (4.0-11.0)
[2015-10-28 07:29] LABS: INTERNATIONAL NORMALIZED RATIO 3.1 RATIO
[2015-10-28 07:39] VITALS: O2SAT 98
[2015-10-28] MEDS: RESP: ALBUTEROL 2.5 MG/IPRATROPIUM 0.5 MG NEB (SCH) NEB ×3 (07:39→20:42)
[2015-10-28 07:51] LABS: ALKALINE PHOSPHATASE 128 U/L (45-117); ALT (GPT) 30 U/L (12-78); ANION GAP 6 MEQ/L (5-15); AST (GOT) 18 U/L (15-37); BICARBONATE 32.7 MEQ/L (21.0-32.0); BLOOD UREA NITROGEN 31 MG/DL (7-18); CHLORIDE 110 MEQ/L (98-107); GLOMERULAR FILTRATION RATE 45 ML/MIN (>89); POTASSIUM 4.2 MEQ/L (3.5-5.1); SODIUM (NA) 149 MEQ/L (136-145); TOTAL BILIRUBIN ADULT 0.3 MG/DL (0.2-1.0)
[2015-10-28 08:12] VITALS: BP 126/80; PULSE 66; RESP 14; TEMP 97.6; O2SAT 100
[2015-10-28] MEDS: ATORVASTATIN 80 MG TAB PO SCH (08:34)
[2015-10-28] MEDS: CLOPIDOGREL 75 MG TAB PO SCH (08:35)
[2015-10-28] MEDS: ENALAPRIL MALEATE 2.5 MG TAB PO SCH ×2 (08:35→21:14)
[2015-10-28] MEDS: ASPIRIN EC 81 MG TABEC PO SCH (08:35)
[2015-10-28] MEDS: CARVEDILOL 12.5 MG TAB PO SCH ×2 (08:35→21:14)
[2015-10-28] MEDS: HEPARIN SODIUM - SQ 10,000 UNITS/ML VIAL SQ SCH ×2 (08:39→21:15)
[2015-10-28] MEDS: SODIUM CHLORIDE 0.9% FLUSH 5 ML FLUSH FLUSH SCH ×2 (08:44→21:17)
--- NOTE | 2015-10-28 09:00 | HHI.PR ---
Subjective Remarks Mr. Amado is a 60 year old male with a history of ischemic cardiomyopathy (EF 35-40%), CABG, stent placement who was found on the floor by family members and subsequently brought to the ED for altered mental status 10/24/15-patient seen and examined; afebrile and denies any left lower extremities pain 10/25/15-patient seen and examined, appears short of breath and confused this morning. Afebrile 10/26/15-patient seen and examined; appears confused, oriented to self but not to place and date. Afebrile 10/27/15-patient seen and examined; still confused however alert to self and place. VS stable. Aspiration? 10/28/15-patient seen and examined; much more alert today and states he would like to go home. Afebrile. taking PO well. case discussed with RN Objective Vitals Vital Signs Date Time Temp Pulse Resp B/P Pulse Ox O2 Delivery O2 Flow Rate FiO2 10/28/15 08:12 97.6 66 14 126/80 100 10/28/15 07:39 98 Nasal Cannula 2.00 10/27/15 21:00 97.0 77 20 162/93 100 10/27/15 19:38 93 Nasal Cannula 2.00 10/27/15 15:42 97.4 73 18 131/81 99 10/27/15 12:00 97.9 70 18 150/86 97 10/27/15 09:39 96.8 74 18 168/86 97 10/27/15 09:01 99 Nasal Cannula 4.00 I/O 10/27/15 10/27/15 10/27/15 10/28/15 10/28/15 10/28/15 07:00 15:00 23:00 07:00 15:00 23:00 Intake Total 100 ml 240 ml 400 ml 0 ml Balance 100 ml 240 ml 400 ml 0 ml Intake Oral 100 ml 240 ml 400 ml 0 ml # Voids 3 2 1 # Bowel Movements 0 0 0 Result Diagram: 10/28/15 0659 10/28/1559 Imaging Last Impressions Modified Barium Swallow 10/27/15 0000 Signed Impressions: Service Date/Time: Tuesday, October 27, 2015 00:00 - CONCLUSION: Negative for penetration or aspiration. Please see speech pathology report. Tai Cohen MD Chest X-Ray 10/25/15 Signed Impressions: Service Date/Time: Sunday, October 25, 2015 09:35 - CONCLUSION: Mild to moderate congestive failure, relatively stable in the interval. Didier Clay MD FACR Brain MRI 10/22/15 Signed Impressions: Service Date/Time: September 14:38 - CONCLUSION: 1. No significant interval change is identified. There is stable restricted diffusion in the left basal ganglia representing an area of recent ischemia. There are no findings to indicate hemorrhagic transformation. The previously documented signal change within the right cerebral peduncle has nearly normalized. 2. Stable chronic white matter changes. Camacho Culp MD Neck Magnetic Resonance Angiography 10/21/15 Signed Impressions: Service Date/Time: Wednesday, October 21, 2015 12:52 - CONCLUSION: . 1. Unremarkable MRA of the carotid arteries bilaterally. 2. Nonspecific possible collateral vessels in the soft tissues posterior to the right vertebral artery. The right verbal artery appears to be patent. If clinically indicated, a CTA could be performed for further evaluation. Abiodun Hall MD Head Magnetic Resonance Angiography 10/21/15 Signed Impressions: Service Date/Time: Wednesday, October 21, 2015 12:52 - CONCLUSION: Unremarkable MRA of the brain. Abiodun Hall MD Head CT 10/15/152116 Signed Impressions: Service Date/Time: September 21:47 - CONCLUSION: 1. No evidence of hemorrhage or mass effect. 2. Lacunar infarct right thalamus, left basal ganglia and adjacent to the left lateral ventricular body. 3. No skull fracture seen. Daryl Varner MD Objective Remarks GENERAL: Well-nourished, well-developed patient. EYES: No scleral icterus. No injection or drainage. NECK: Supple, trachea midline. No JVD or lymphadenopathy. CARDIOVASCULAR: Regular rate and rhythm without murmurs RESPIRATORY: Breath sounds equal bilaterally. No wheezing GASTROINTESTINAL: Abdomen soft, non-tender, nondistended. EXTREMITIES: No cyanosis, or edema. s/p right BKA. LLE with 1+ edema, several shallow venous stasis ulcerations on anterior calve, no cellulitis. dressing in place BACK: Nontender without obvious deformity. No CVA tenderness. A/P Problem List: (1) Cellulitis Status: Resolved (2) Ischemic cardiomyopathy Status: Chronic (3) Diabetes mellitus type 2 in obese Status: Chronic (4) S/P BKA (below knee amputation) unilateral Status: Chronic (5) Acute metabolic encephalopathy Status: Acute (6) Bacteremia Status: Resolved (7) Chronic systolic (congestive) heart failure Status: Chronic (8) Venous stasis ulcer of left lower extremity Status: Chronic (9) Shortness of breath Status: Chronic (10) CVA (cerebral vascular accident) Status: Acute Assessment and Plan 60-year-old male with - Cellulitis of the left lower ext. with staph coag neg bacteremia in 4/4 tubes. Staph haemolyticus in aerobic tubes, with different sensitivities, contaminant likely. - Chronic venous stasis ulcers on the left lower ext. . Clinically improved- cellulitis resolved. - repeat blood cultures from 10/15 - no growth to date -wound cultures - MSSA, Serratia marcescens - Dr. Messina/TISHA ff; On Keflex and Cipro for 10 days (vancomycin DCed) and completed 10/26. -Bilateral CVA:MRI showed acute cortical infarct from right cerebral pedicle up through pelvis. MRA of head and neck unremarkable. Neurology following. d/c ASA and Plavix.Continue with Statin,Coumadin and monitor INR/PT - Acute metabolic encephalopathy - improved. baseline neuro status unknown but there is suspicion of chronic cognitive impairment/dementia. -CT head was unremarkable for any acute findings. - Continue treatment of underlying medical conditions -MRI showed acute cortical infarct from right cerebral pedicle up through pelvis. MRA of head and neck unremarkable. Neurology following. d/c ASA and plavix.Continue with Coumadin and monitor INR/PT Pt had a 9 run beat of Vtach. Cardiology evaluated pt and recommends medical management. - Mild elevation of troponin without upward trend in the setting of CKD - No chest pain. Likely due to CKD. - CKD stage 3 associated with T2DM - continue to hold lasix. -Hypernatremia - improving -Metabolic acidosis due to CKD ; resolved -Cardiomyopathy/chronic systolic CHF LVEF 35% on echo 03/2015 - currently no exacerbation.on Coreg 25mg BID and cont asa, Lipitor. Restart Lasix 20 by mouth twice a day - Diabetes mellitus - cont long acting insulin Levemir 10 units sq HS, Novolog low SSI. Accu chek controlled. -PAD -s/p ASA -shortness of breath: CXR to rule out pulmonary congestion versus infiltrate, duo Neb scheduled and when necessary Encephalopathy:Resolved ; Modified barium swallow 10/27/15 negative Full code. Heparin SQ. Discharge Planning discharge home with [facility] Problem Qualifiers (1) Cellulitis: Jakub Quevedo MD Oct 28, 2015 09:00
--- NOTE | 2015-10-28 09:01 | HHI.FF ---
Face to Face Verification Diagnosis: (1) Cellulitis (2) Noncompliance (3) Diabetes (4) CVA (cerebral vascular accident) Physical Therapy Order: Evaluate and Treat Home Health Nursing Order: Wound care and dressing changes Instructions: INR/PT monitoring M-W- I have seen patient Bobby Amado on 10/28/15. My clinical findings support the need for the requested home health care services because: Patient has SOB I certify that my clinical findings support that this patient is homebound because: Poor cardiac reserve Jakub Quevedo MD Oct 28, 2015 09:01
[2015-10-28] MEDS ORDERED: CLOP75 PO (09:04)
[2015-10-28] MEDS ORDERED: COUM5TAB PO (09:04)
[2015-10-28] MEDS ORDERED: CARV12.5 PO (09:04)
--- NOTE | 2015-10-28 09:56 | HHI.DS ---
Discharge Summary Admission Date Oct 15, 2015 at 23:15 Discharge Date: Oct 28, 2015 Admitting Diagnosis mild rabdo, elevated troponin, generalized weakness, fall (1) Cellulitis (2) Ischemic cardiomyopathy (3) Diabetes mellitus type 2 in obese (4) S/P BKA (below knee amputation) unilateral (5) Acute metabolic encephalopathy (6) Bacteremia (7) Chronic systolic (congestive) heart failure (8) Venous stasis ulcer of left lower extremity (9) Shortness of breath (10) CVA (cerebral vascular accident) Procedures None Brief History - From Admission Mr. Amado is a 60 year old male with a history of ischemic cardiomyopathy (EF 35-40%), CABG, stent placement who was found on the floor by family members and subsequently brought to the ED for altered mental status. GCS 14 on arrival, improved to 15 with oxygen and IV fluids. Per EMS, patient's living condition at home is very poor. Patient is alert, oriented to self and place. He is unable to give any meaningful history. He denies any chest pain, SOB, fever, chills. On arrival, BP 162/108, RR 18, Pulse 96, T 97.8, 96-98% saturation on 2L of O2 via nasal cannula. CBC shows wbc 10, Hgb 10.3, Hct 32.4, Plt 168. BMP shows Na 147, K+ 3.8, BUN 22, Creatinine 1.78, Glucose 157, CPK 883, troponin 0.13. Head CT was unremarkable for acute findings. Cardiac history: - 12/18/2014 cardiac catheter status post stent placement 2.512 mm to proximal left circumflex - 04/30/2015 Echocardiogram EF 35-40% diffuse hypokinesis area CBC/BMP: 10/28/15 0659 10/28/15 0659 Significant Findings Laboratory Tests Test 10/26/15 10/26/15 10/27/15 10/28/15 06:26 11:10 06:44 06:59 Prothrombin Time 17.1 SEC 26.7 SEC 35.0 SEC (9.8-11.4) (9.8-11.4) (9.8-11.4) Ammonia 35 MCMOL/L 35 MCMOL/L (11-32) (11-32) Sodium Level 149 MEQ/L 149 MEQ/L (136-145) (136-145) Chloride Level 109 MEQ/L 110 MEQ/L (98-107) (98-107) Blood Urea Nitrogen 32 MG/DL (7-18) 31 MG/DL (7-18) Creatinine 1.72 MG/DL 1.59 MG/DL (0.60-1.30) (0.60-1.30) Estimat Glomerular Filtration 41 ML/MIN (>89) 45 ML/MIN (>89) Rate Calcium Level 8.3 MG/DL 8.0 MG/DL (8.5-10.1) (8.5-10.1) Alkaline Phosphatase 151 U/L 128 U/L (45-117) (45-117) Albumin 3.1 GM/DL 2.9 GM/DL (3.4-5.0) (3.4-5.0) Red Blood Count 4.00 MIL/MM3 (4.50-5.90) Hemoglobin 10.9 GM/DL (13.0-17.0) Hematocrit 34.3 % (39.0-51.0) Mean Corpuscular Hemoglobin 31.9 % Concent (32.0-36.0) Platelet Count 136 TH/MM3 (150-450) Neutrophils (%) (Auto) 80.4 % (16.0-70.0) Lymphocytes (%) (Auto) 8.0 % (9.0-44.0) Lymphocytes # (Auto) 0.7 TH/MM3 (1.0-4.8) Carbon Dioxide Level 32.7 MEQ/L (21.0-32.0) Total Protein 6.2 GM/DL (6.4-8.2) Imaging Last Impressions Modified Barium Swallow 10/27/15 0000 Signed Impressions: Service Date/Time: Tuesday, October 27, 2015 00:00 - CONCLUSION: Negative for penetration or aspiration. Please see speech pathology report. Tai Cohen MD Chest X-Ray 10/25/15 0000 Signed Impressions: Service Date/Time: Sunday, October 25, 2015 09:35 - CONCLUSION: Mild to moderate congestive failure, relatively stable in the interval. Didier Clay MD FACR Brain MRI 10/22/15 0000 Signed Impressions: Service Date/Time: September 14:38 - CONCLUSION: 1. No significant interval change is identified. There is stable restricted diffusion in the left basal ganglia representing an area of recent ischemia. There are no findings to indicate hemorrhagic transformation. The previously documented signal change within the right cerebral peduncle has nearly normalized. 2. Stable chronic white matter changes. Camacho Culp MD Neck Magnetic Resonance Angiography 10/21/15 0000 Signed Impressions: Service Date/Time: Wednesday, October 21, 2015 12:52 - CONCLUSION: . 1. Unremarkable MRA of the carotid arteries bilaterally. 2. Nonspecific possible collateral vessels in the soft tissues posterior to the right vertebral artery. The right verbal artery appears to be patent. If clinically indicated, a CTA could be performed for further evaluation. Abiodun Hall MD Head Magnetic Resonance Angiography 10/21/15 Signed Impressions: Service Date/Time: Wednesday, October 21, 2015 12:52 - CONCLUSION: Unremarkable MRA of the brain. Abiodun Hall MD Head CT 10/15/152116 Signed Impressions: Service Date/Time: September 21:47 - CONCLUSION: 1. No evidence of hemorrhage or mass effect. 2. Lacunar infarct right thalamus, left basal ganglia and adjacent to the left lateral ventricular body. 3. No skull fracture seen. Daryl Varner MD PE at Discharge GENERAL: Well-nourished, well-developed patient. EYES: No scleral icterus. No injection or drainage. NECK: Supple, trachea midline. No JVD or lymphadenopathy. CARDIOVASCULAR: Regular rate and rhythm without murmurs RESPIRATORY: Breath sounds equal bilaterally. No wheezing GASTROINTESTINAL: Abdomen soft, non-tender, nondistended. EXTREMITIES: No cyanosis, or edema. s/p right BKA. LLE with 1+ edema, several shallow venous stasis ulcerations on anterior calve, no cellulitis. dressing in place BACK: Nontender without obvious deformity. No CVA tenderness. Hospital Course - Cellulitis of the left lower ext. with staph coag neg bacteremia in 4/4 tubes. Staph haemolyticus in aerobic tubes, with different sensitivities, contaminant likely. - Chronic venous stasis ulcers on the left lower ext. . Clinically improved- cellulitis resolved. - repeat blood cultures from 10/15 - no growth to date -wound cultures - MSSA, Serratia marcescens - Dr. Messina/TISHA ff; On Keflex and Cipro for 10 days (vancomycin DCed) and completed 10/26. -Bilateral CVA:MRI showed acute cortical infarct from right cerebral pedicle up through pelvis. MRA of head and neck unremarkable. Neurology following. d/c ASA and Plavix.Continue with Statin,Coumadin and monitor INR/PT - Acute metabolic encephalopathy - improved. baseline neuro status unknown but there is suspicion of chronic cognitive impairment/dementia. -CT head was unremarkable for any acute findings. - Continue treatment of underlying medical conditions -MRI showed acute cortical infarct from right cerebral pedicle up through pelvis. MRA of head and neck unremarkable. Neurology following. d/c ASA and plavix.Continue with Coumadin and monitor INR/PT Pt had a 9 run beat of Vtach. Cardiology evaluated pt and recommends medical management. - Mild elevation of troponin without upward trend in the setting of CKD - No chest pain. Likely due to CKD. - CKD stage 3 associated with T2DM - continue to hold lasix. -Hypernatremia - improving -Metabolic acidosis due to CKD ; resolved -Cardiomyopathy/chronic systolic CHF LVEF 35% on echo 03/2015 - currently no exacerbation.on Coreg 25mg BID and cont asa, Lipitor. Restart Lasix 20 by mouth twice a day - Diabetes mellitus - cont long acting insulin Levemir 10 units sq HS, Novolog low SSI. Accu chek controlled. -PAD -s/p ASA -shortness of breath: CXR to rule out pulmonary congestion versus infiltrate, duo Neb scheduled and when necessary Encephalopathy:Resolved ; Modified barium swallow 10/27/15 negative Full code. Heparin SQ Pt Condition on Discharge: Stable Discharge Disposition: Disch w/ Home Health Serv Discharge Time: <= 30 minutes Discharge Instructions DIET: Follow Instructions for: Diabetic Diet Activities you can perform: Regular-No Restrictions Follow up Referrals: PCP Follow-up - 2-3 Days New Orders: PT/INR - 2-3 Days New Medications: Albuterol/Ipratropium (Resp: Albuterol/Ipratropium 2.5 Mg/0.5 Mg) 1 Amp Nebu 1 AMPULE NEB QID NEB Dyspnea Days 30 ML Carvedilol 12.5 mg (Coreg 12.5 mg) 12.5 Mg Tab 25 MG PO BID hypertension Days 31 TAB Warfarin Sod (Coumadin) 5 Mg Tab 5 MG PO DAILY@1600 OAC Days 31 TAB Continued Medications: Atorvastatin (Lipitor 80 Mg Tab) 80 Mg Tab 80 MG PO DAILY hlp Days 31 TAB Enalapril Maleate (Vasotec 5 Mg Tab) 5 Mg Tab 2.5 MG PO BID Prevent Heart Failure Days 30 TAB Furosemide (Lasix 20 Mg Tab) 20 Mg Tab 20 MG PO BID@09,18 chf Days 31 TAB Insulin Detemir (Levemir) Inj 10 UNITS SQ HS dm2 Days 31 INJECTION Isosorbide Mononitrate (Imdur 60 Mg) 60 Mg Tabcr 60 MG PO DAILY@07 heart Days 30 TAB.SR Lactobacillus Acidophilus (Lactinex) 1 Tab Tab 1 TAB PO BID probiotics Days 31 TAB (This prescription has been renewed) Magnesium Oxide (Mag-Ox 400 Mg Tab) 400 Mg Tab 400 MG PO Q12HR Electrolyte Replacement Days 30 TAB Potassium Chloride (Kcl 20 Meq Tab) 20 Meq Tabcr 20 MEQ PO BID Electrolyte Replacement Days 30 TAB.SR Discontinued Medications: Aspirin (Ecotrin) 81 Mg Tabec 81 MG PO DAILY Prevent Blood Clot Days 30 TAB.EC Carvedilol 6.25 mg (Coreg 6.25 mg) 6.25 Mg Tab 12.5 MG PO Q12HR heart Days 30 TAB Jakub Quevedo MD Oct 28, 2015 09:56
--- NOTE | 2015-10-28 11:13 | HHI.PR ---
Addendum to Inpatient Note Addendum Reason: Additional Documentation Additional Information the family of the patient has been refusing discharge to SNF and only wants home ; however per case investigator after she talked to the Insurance who did not think this would be a safe discharge home as we have mentioned to the family; I will hold discharge home with [facility] and have PT see the patient 7days/week Jakub Quevedo MD Oct 28, 2015 11:13
[2015-10-28 12:07] VITALS: BP 136/73; PULSE 73; RESP 16; TEMP 97.3; O2SAT 95
[2015-10-28] MEDS: COLLAGENASE OINT 30 GM TUBE TOP SCH (14:00)
[2015-10-28] MEDS: WARFARIN SOD 5 MG TAB PO SCH (16:00)
[2015-10-28] MEDS ORDERED: LORazepam 1 MG TAB PO ONE (16:30)
[2015-10-28 16:37] VITALS: BP 146/94; PULSE 69; RESP 15; TEMP 96.7; O2SAT 90
[2015-10-28 20:00] VITALS: BP 167/87; PULSE 77; RESP 24; TEMP 97.1; O2SAT 92
[2015-10-28 20:42] VITALS: O2SAT 90
[2015-10-28] MEDS: INSULIN DETEMIR 100 UNITS/ML VIAL SQ SCH (21:16)
[2015-10-29] VITALS (7 sets, daily range): BP systolic 120–142; BP diastolic 64–85; PULSE 67–82; RESP 16–20; TEMP 95.5–97.3; O2SAT 92–98
[2015-10-29] MEDS: ISOSORBIDE MONONITRATE 60 MG TAB PO SCH (06:37)
[2015-10-29] MEDS: INSULIN ASPART SUPPLEMENTAL SCALE SQ SCH ×4 (06:50→22:30)
[2015-10-29 07:49] LABS: INTERNATIONAL NORMALIZED RATIO 2.4 RATIO; PROTHROMBIN TIME - PATIENT 25.8 SEC (9.8-11.4)
[2015-10-29] MEDS: RESP: ALBUTEROL 2.5 MG/IPRATROPIUM 0.5 MG NEB (SCH) NEB (08:07)
[2015-10-29] MEDS: SODIUM CHLORIDE 0.9% FLUSH 5 ML FLUSH FLUSH SCH ×2 (09:00→22:28)
[2015-10-29] MEDS: ATORVASTATIN 80 MG TAB PO SCH (09:07)
[2015-10-29] MEDS: ENALAPRIL MALEATE 2.5 MG TAB PO SCH ×2 (09:07→22:28)
[2015-10-29] MEDS: CARVEDILOL 12.5 MG TAB PO SCH ×2 (09:08→22:28)
[2015-10-29] MEDS: HEPARIN SODIUM - SQ 10,000 UNITS/ML VIAL SQ SCH ×2 (09:13→22:27)
[2015-10-29] MEDS: COLLAGENASE OINT 30 GM TUBE TOP SCH (09:13)
--- NOTE | 2015-10-29 11:55 | HHI.PR ---
Subjective Remarks Mr. Amado is a 60 year old male with a history of ischemic cardiomyopathy (EF 35-40%), CABG, stent placement who was found on the floor by family members and subsequently brought to the ED for altered mental status 10/24/15-patient seen and examined; afebrile and denies any left lower extremities pain 10/25/15-patient seen and examined, appears short of breath and confused this morning. Afebrile 10/26/15-patient seen and examined; appears confused, oriented to self but not to place and date. Afebrile 10/27/15-patient seen and examined; still confused however alert to self and place. VS stable. Aspiration? 10/28/15-patient seen and examined; much more alert today and states he would like to go home. Afebrile. taking PO well. case discussed with RN 10/29/15-patient seen and examined; patient appears confused but not agitated. + Shortness of breath; he is also bitting his tongue bleeding from the gums Objective Vitals Vital Signs Date Time Temp Pulse Resp B/P Pulse Ox O2 Delivery O2 Flow Rate FiO2 10/29/15 08:23 97.3 67 20 125/64 98 10/29/15 08:09 92 Nasal Cannula 2.00 10/29/15 06:00 97.3 67 18 123/72 98 10/29/15 00:00 97.1 67 18 120/70 97 10/28/15 20:42 90 Nasal Cannula 2.00 10/28/15 20:00 97.1 77 24 167/87 92 10/28/15 16:37 96.7 69 15 146/94 90 10/28/15 12:07 97.3 73 16 136/73 95 I/O 10/28/15 10/28/15 10/28/15 10/29/15 10/29/15 10/29/15 06:59 14:59 22:59 06:59 14:59 22:59 Intake Total 0 ml 560 ml 120 ml 50 ml Balance 0 ml 560 ml 120 ml 50 ml Intake Oral 0 ml 560 ml 120 ml 50 ml # Voids 1 4 1 1 # Bowel Movements 0 0 Result Diagram: 10/28/1559 10/28/15658 Objective Remarks GENERAL: Well-nourished, well-developed patient. EYES: No scleral icterus. No injection or drainage. NECK: Supple, trachea midline. No JVD or lymphadenopathy. CARDIOVASCULAR: Regular rate and rhythm without murmurs RESPIRATORY: Breath sounds equal bilaterally. No wheezing GASTROINTESTINAL: Abdomen soft, non-tender, nondistended. EXTREMITIES: No cyanosis, or edema. s/p right BKA. LLE with 1+ edema, several shallow venous stasis ulcerations on anterior calve, no cellulitis. dressing in place BACK: Nontender without obvious deformity. No CVA tenderness. Procedures None A/P Problem List: (1) Cellulitis Status: Resolved (2) Ischemic cardiomyopathy Status: Chronic (3) Diabetes mellitus type 2 in obese Status: Chronic (4) S/P BKA (below knee amputation) unilateral Status: Chronic (5) Acute metabolic encephalopathy Status: Acute (6) Bacteremia Status: Resolved (7) Chronic systolic (congestive) heart failure Status: Chronic (8) Venous stasis ulcer of left lower extremity Status: Chronic (9) Shortness of breath Status: Chronic (10) CVA (cerebral vascular accident) Status: Acute Assessment and Plan 60-year-old male with - Cellulitis of the left lower ext. with staph coag neg bacteremia in 4/4 tubes. Staph haemolyticus in aerobic tubes, with different sensitivities, contaminant likely. - Chronic venous stasis ulcers on the left lower ext. . Clinically improved- cellulitis resolved. -wound cultures - MSSA, Serratia marcescens - Dr. [place]/ID ff; On Keflex and Cipro for 10 days (vancomycin DCed) and completed 10/26. -Bilateral CVA:MRI showed acute cortical infarct from right cerebral pedicle up through pelvis. MRA of head and neck unremarkable. Neurology following. s/p ASA and Plavix.Continue with Statin,Coumadin and monitor INR/PT - Acute metabolic encephalopathy - baseline neuro status unknown but there is suspicion of chronic cognitive impairment/dementia. -CT head was unremarkable for any acute findings. - Check NH3 level - Mild elevation of troponin without upward trend in the setting of CKD - No chest pain. Likely due to CKD. - CKD stage 3 associated with T2DM - continue to hold lasix. -Hypernatremia - improving -Metabolic acidosis due to CKD ; resolved -Cardiomyopathy/chronic systolic CHF LVEF 35% on echo 03/2015 - currently no exacerbation.on Coreg 25mg BID and cont asa, Lipitor. Restart Lasix 20 by mouth twice a day - Diabetes mellitus - cont long acting insulin Levemir 10 units sq HS, Novolog low SSI. Accu chek controlled. -PAD -s/p ASA -shortness of breath: CXR pending to rule out pulmonary congestion versus infiltrate, duo Neb scheduled and when necessary Full code. Heparin SQ. -Physical deconditioning: PT daily Discharge Planning discharge home with [facility] Problem Qualifiers (1) Cellulitis: Jakub Quevedo MD Oct 29, 2015 11:55
[2015-10-29] MEDS ORDERED: PHENOL 1.4% SOLN 180 ML BTL MT PRN (12:00)
--- NOTE | 2015-10-29 13:03 | RADRPT ---
EXAM DATE/TIME: 10/29/2015 12:43 [facility] COMPARISON: CHEST SINGLE AP, October 15, 2015, 21:36. BA SWALLOW W/SPEECH PATHOLOGY, October 27, 2015, 0:00. INDICATIONS : Short of breath. MEDICAL HISTORY : Congestive heart failure. SURGICAL HISTORY : CABG. ENCOUNTER: Subsequent ACUITY: 1 month PAIN SCORE: Non-responsive. LOCATION: Bilateral chest FINDINGS: The examination demonstrates the heart to be mildly enlarged. Patient is post median sternotomy. Ther e is mild diffuse interstitial prominence but no overt congestive failure. No pleural effusion is see n. No focal or segmental pneumonia is present. CONCLUSION: 1. The heart is mildly enlarged. There is interstitial prominence suggesting pulmonary venous congest ion but no overt congestive failure. Chest is similar to previous exam dated 10/15/15. Tomas Clay MD on October 29, 2015 at 12:59 Board Certified Radiologist. This report was verified electronically.
[2015-10-29] MEDS ORDERED: LACTULOSE SYRUP 20 GM/30 ML CUP PO ONE ×2 (22:00→23:45)
[2015-10-29] MEDS: INSULIN DETEMIR 100 UNITS/ML VIAL SQ SCH (22:29)
[2015-10-29] MEDS ORDERED: FUROSEMIDE 40 MG/4 ML VIAL IV PUSH ONE (23:45)
[2015-10-30] VITALS (8 sets, daily range): BP systolic 130–166; BP diastolic 69–103; PULSE 75–89; RESP 20–22; TEMP 96–99.9; O2SAT 78–98
[2015-10-30] MEDS ORDERED: CALCIUM CARBONATE 500 MG CHEWABLE TAB CHEW PRN (05:30)
[2015-10-30] MEDS: INSULIN ASPART SUPPLEMENTAL SCALE SQ SCH ×4 (07:00→20:58)
[2015-10-30] MEDS: ISOSORBIDE MONONITRATE 60 MG TAB PO SCH (07:15)
[2015-10-30 08:41] LABS: AUTOMATED NEUTROPHIL # 12.6 TH/MM3 (1.8-7.7); BASOPHIL % 0.3 % (0.0-2.0); EOSINOPHIL # 0.2 TH/MM3 (0-0.4); EOSINOPHIL % 1.6 % (0.0-4.0); HEMATOCRIT 31.5 % (39.0-51.0); HEMO FLAGS DIFF FINAL; LYMPH % 4.7 % (9.0-44.0); LYMPHOCYTE # 0.7 TH/MM3 (1.0-4.8); MEAN CELL VOLUME 84.2 FL (80.0-100.0); MEAN CORPUSCULAR HEMOGLOBIN 26.2 PG (27.0-34.0); MEAN CORPUSCULAR HGB CONC 31.1 % (32.0-36.0); MONO % 4.6 % (0.0-8.0); NEUT % 88.8 % (16.0-70.0); PLATELET COUNT 134 TH/MM3 (150-450); RED BLOOD COUNT 3.74 MIL/MM3 (4.50-5.90); RED CELL DISTRIBUTION WIDTH 15.5 % (11.6-17.2); WHITE BLOOD COUNT 14.2 TH/MM3 (4.0-11.0)
[2015-10-30 08:54] LABS: INTERNATIONAL NORMALIZED RATIO 1.8 RATIO; PROTHROMBIN TIME - PATIENT 19.4 SEC (9.8-11.4)
[2015-10-30] MEDS: COLLAGENASE OINT 30 GM TUBE TOP SCH (09:00)
[2015-10-30] MEDS: SODIUM CHLORIDE 0.9% FLUSH 5 ML FLUSH FLUSH SCH ×2 (09:00→21:05)
[2015-10-30 09:12] LABS: ALKALINE PHOSPHATASE 128 U/L (45-117); ALT (GPT) 24 U/L (12-78); ANION GAP 6 MEQ/L (5-15); AST (GOT) 13 U/L (15-37); BICARBONATE 30.9 MEQ/L (21.0-32.0); BLOOD UREA NITROGEN 33 MG/DL (7-18); CHLORIDE 109 MEQ/L (98-107); GLOMERULAR FILTRATION RATE 50 ML/MIN (>89); POTASSIUM 3.8 MEQ/L (3.5-5.1); SODIUM (NA) 146 MEQ/L (136-145); TOTAL BILIRUBIN ADULT 0.6 MG/DL (0.2-1.0)
[2015-10-30] MEDS: CARVEDILOL 12.5 MG TAB PO SCH ×2 (09:21→20:57)
[2015-10-30] MEDS: ENALAPRIL MALEATE 2.5 MG TAB PO SCH ×2 (09:21→20:57)
[2015-10-30] MEDS: ATORVASTATIN 80 MG TAB PO SCH (09:21)
--- NOTE | 2015-10-30 12:38 | HHI.PR ---
Subjective Remarks Follow-up encephalopathy. Patient is awake and confused oriented to person only. His only complaint is shortness of breath currently on room air. According to nursing staff, patient was playing with his feces. Yesterday he bit his tongue as well as oxygen tubing. Unable to leave message with sister Tigist her VM has not been set up Objective Vitals Vital Signs Date Time Temp Pulse Resp B/P Pulse Ox O2 Delivery O2 Flow Rate FiO2 10/30/15 08:25 96.8 75 20 140/69 96 10/30/15 05:04 20 131/79 78 10/30/15 04:00 96.0 80 21 161/97 93 10/30/15 00:05 96.1 87 22 166/103 98 10/29/15 20:26 97.0 82 20 135/76 96 10/29/15 17:16 95.5 73 16 142/85 95 I/O 10/29/15 10/29/15 10/29/15 10/30/15 10/30/15 10/30/15 07:00 15:00 23:00 07:00 15:00 23:00 Intake Total 50 ml 480 ml 240 ml Output Total 200 ml Balance 50 ml 480 ml 40 ml Intake Oral 50 ml 480 ml 240 ml Output Urine Total 200 ml # Voids 1 1 1 3 # Bowel Movements 2 3 Result Diagram: 10/30/15 0812 10/30/15 0812 Imaging Last 48 hours Impressions Chest X-Ray 10/29/15 0000 Signed Impressions: Service Date/Time: September 12:43 - CONCLUSION: 1. The heart is mildly enlarged. There is interstitial prominence suggesting pulmonary venous congestion but no overt congestive failure. Chest is similar to previous exam dated 10/15/15. Tomas Clay MD Objective Remarks GENERAL: Well-nourished, well-developed patient in no apparent distress. SKIN: Warm and dry. HEAD: Atraumatic. Normocephalic. EYES: Pupils equal and round. No scleral icterus. No injection or drainage. ENT: No nasal bleeding or discharge. Mucous membranes pink and moist. NECK: Trachea midline. No JVD. CARDIOVASCULAR: Regular rate and rhythm. RESPIRATORY: No accessory muscle use. Decreased Breath sounds equal bilaterally. GASTROINTESTINAL: Abdomen soft, non-tender, nondistended. MUSCULOSKELETAL: Extremities without clubbing, cyanosis, or edema. Right BKA. Left leg with healing wound. No drainage NEUROLOGICAL: Awake and alert. No obvious cranial nerve deficits. Motor grossly within normal limits. Five out of 5 muscle strength in the arms and legs. Normal speech. Cooperative Procedures None A/P Problem List: (1) Cellulitis Status: Resolved (2) Ischemic cardiomyopathy Status: Chronic (3) Diabetes mellitus type 2 in obese Status: Chronic (4) S/P BKA (below knee amputation) unilateral Status: Chronic (5) Acute metabolic encephalopathy Status: Acute (6) Bacteremia Status: Resolved (7) Chronic systolic (congestive) heart failure Status: Chronic (8) Venous stasis ulcer of left lower extremity Status: Chronic (9) Shortness of breath Status: Chronic (10) CVA (cerebral vascular accident) Status: Acute Assessment and Plan 60-year-old male with Leukocytosis. No fever. Repeat chest x-ray with pulmonary congestion. Obtain urinalysis. Blood cultures if febrile. Repeat CBC in the morning Cellulitis of the left lower ext. with staph coag neg bacteremia in 4/4 tubes. Staph haemolyticus in aerobic tubes, with different sensitivities, contaminant likely. - Chronic venous stasis ulcers on the left lower ext. . Clinically improved- cellulitis resolved. -wound cultures - MSSA, Serratia marcescens - Dr. Messina/TISHA ff; On Keflex and Cipro for 10 days (vancomycin DCed) and completed 10/26. Bilateral CVA:MRI showed acute cortical infarct. MRA of head and neck unremarkable. Neurology following. s/p ASA and Plavix. Continue with Statin, Coumadin and monitor INR/PT Acute metabolic encephalopathy - baseline neuro status unknown but there is suspicion of chronic cognitive impairment/dementia. -CT head was unremarkable for any acute findings. -Mildly elevated NH3 level. Continue lactulose as needed already had 5 BM today. Check sonogram. -Consult psychiatry. Geodon as needed Mild elevation of troponin without upward trend in the setting of CKD - No chest pain. Likely due to CKD. CKD stage 3 likely diabetic nephropathy-improving. Avoid nephrotoxins Hypernatremia - improving Metabolic acidosis due to CKD ; resolved Cardiomyopathy/chronic systolic CHF LVEF 35% on echo 03/2015 - currently no exacerbation. Ct Coreg 25mg BID and enalapril. Lasix IV as needed. Cardiology following to consider AICD Diabetes mellitus A1c 7.5- cont long acting insulin Levemir 10 units sq HS, Novolog low SSI. Accu chek controlled. PAD -stable on NovoLog Physical deconditioning: PT following DVT prophylaxis with Coumadin Discharge Planning He is not stable for discharge Problem Qualifiers (1) Cellulitis: Claudio Moon MD Oct 30, 2015 12:38
[2015-10-30] MEDS ORDERED: FUROSEMIDE 20 MG/2 ML VIAL IV PUSH ONE (12:45)
[2015-10-30] MEDS ORDERED: ZIPRASIDONE MESYLATE 20 MG VIAL IM PRN (13:00)
[2015-10-30] MEDS: WARFARIN SOD 5 MG TAB PO SCH (16:21)
--- NOTE | 2015-10-30 20:03 | RADRPT ---
EXAM DATE/TIME: 10/30/2015 17:29 [facility] COMPARISON: No previous studies available for comparison. INDICATIONS : Abnormal lab values. MEDICAL HISTORY : Myocardial infarction. Hypercholesterolemia. Diabetes mellitus type 2. Hypertension. CHF. CAD. Kidney stones. SURGICAL HISTORY : CABG. Right below knee amputation. ENCOUNTER: Initial ACUITY: 1 day PAIN SCORE: Nonresponsive. LOCATION: Right upper quadrant MEASUREMENTS: LIVER: 21.8 cm length COMMON DUCT: 5 mm RIGHT KIDNEY: 12.9 x 5.3 x 6.1 cm SPLEEN: 14.9 cm length FINDINGS: LIVER: Normal echotexture without focal lesion or ductal dilatation. COMMON DUCT: No intraluminal mass or stone visualized. GALLBLADDER: Cholelithiasis with probable gallbladder sludge PANCREAS: The visualized portions are within normal limits. RIGHT KIDNEY: No hydronephrosis, stone or mass. SPLEEN: No focal lesion. CONCLUSION: 1. Cholelithiasis with probable gallbladder sludge and mild gallbladder distention. 2. Splenomegaly. Sameer Alexandra MD on October 30, 2015 at 19:58 Board Certified Radiologist. This report was verified electronically.
[2015-10-30] MEDS: INSULIN DETEMIR 100 UNITS/ML VIAL SQ SCH (20:58)
[2015-10-31] VITALS (9 sets, daily range): BP systolic 96–124; BP diastolic 60–77; PULSE 79–89; RESP 18–22; TEMP 96.8–100.6; O2SAT 93–98
[2015-10-31] MEDS: INSULIN ASPART SUPPLEMENTAL SCALE SQ SCH ×4 (06:02→21:00)
[2015-10-31] MEDS: ISOSORBIDE MONONITRATE 60 MG TAB PO SCH (06:02)
[2015-10-31] MEDS: ATORVASTATIN 80 MG TAB PO SCH (08:12)
[2015-10-31] MEDS: COLLAGENASE OINT 30 GM TUBE TOP SCH (08:13)
[2015-10-31] MEDS: CARVEDILOL 12.5 MG TAB PO SCH ×2 (08:13→22:04)
[2015-10-31] MEDS: SODIUM CHLORIDE 0.9% FLUSH 5 ML FLUSH FLUSH SCH ×2 (08:13→22:00)
[2015-10-31] MEDS: ENALAPRIL MALEATE 2.5 MG TAB PO SCH ×2 (08:13→22:04)
[2015-10-31 09:10] LABS: AUTOMATED NEUTROPHIL # 20.2 TH/MM3 (1.8-7.7); BASOPHIL % 0.1 % (0.0-2.0); EOSINOPHIL # 0.1 TH/MM3 (0-0.4); EOSINOPHIL % 0.4 % (0.0-4.0); HEMATOCRIT 28.5 % (39.0-51.0); HEMO FLAGS DIFF FINAL; LYMPH % 1.8 % (9.0-44.0); LYMPHOCYTE # 0.4 TH/MM3 (1.0-4.8); MEAN CELL VOLUME 84.6 FL (80.0-100.0); MEAN CORPUSCULAR HGB CONC 31.9 % (32.0-36.0); MONO % 4.1 % (0.0-8.0); NEUT % 93.6 % (16.0-70.0); PLATELET COUNT 109 TH/MM3 (150-450); RED BLOOD COUNT 3.37 MIL/MM3 (4.50-5.90); WHITE BLOOD COUNT 21.6 TH/MM3 (4.0-11.0)
[2015-10-31 09:12] LABS: INTERNATIONAL NORMALIZED RATIO 1.7 RATIO; PROTHROMBIN TIME - PATIENT 18.4 SEC (9.8-11.4)
[2015-10-31 09:29] LABS: BICARBONATE 32.3 MEQ/L (21.0-32.0); MAGNESIUM 1.5 MG/DL (1.5-2.5); POTASSIUM 3.6 MEQ/L (3.5-5.1)
--- NOTE | 2015-10-31 11:04 | RADRPT ---
EXAM DATE/TIME: 10/31/2015 10:47 [facility] COMPARISON: CHEST SINGLE AP, October 29, 2015, 12:43. INDICATIONS : Shortness of breath. MEDICAL HISTORY : Congestive heart failure. SURGICAL HISTORY : CABG. ENCOUNTER: Subsequent ACUITY: 3 weeks PAIN SCORE: 0/10 LOCATION: Bilateral chest FINDINGS: A single view of the chest demonstrates cardiomegaly and bibasilar densities. Diminished lung volumes . Previous CABG. The cardiomediastinal contours are unremarkable. Osseous structures are intact. CONCLUSION: Cardiomegaly with bibasilar atelectasis. Jakub Chandra MD on October 31, 2015 at 11:01 Board Certified Radiologist. This report was verified electronically.
[2015-10-31] MEDS ORDERED: RESP: ALBUTEROL 0.63 MG/3 ML NEB (PRN) NEB (11:30)
--- NOTE | 2015-10-31 14:32 | PD.CONS ---
Provisional Diagnosis Admission Date Oct 15, 2015 at 23:15 [place]. Delirium due to multiple medical issues F0.5 History of Present Illness Service Psychiatry Consult Requested By Attending Ayesha Reason for Consult Assessment Primary Care Physician Unknown HPI Patient is a 60-year-old obese white male admitted for multiple metabolic issues asked see because patient noted to been playing with feces by staff yesterday. Patient seen today with RN Ana patient is alert though diffusely confused with marked thought blocking is manipulation all of his responses. Review of the EMR shows no prior psychiatric contact. In any event concerning the multiple metabolic issues and the encephalopathic problems that he has I feel he low dose of scheduled Haldol might be beneficial with his behavior with the cancellation of the Geodon. Thanks for consult continue to follow Review of Systems Other Please see [email or web address] review of systems Past Family Social History Coded Allergies: Pen-Vee K (Verified Allergy, Severe, THROAT SWELLS, 10/15/15) Penicillin (Verified Allergy, Unknown, SWELLING, 10/15/15) Uncoded Allergies: aspartame (Adverse Reaction, Severe, severe nose bleed, 10/24/13) Past Medical History Unknown at this time Active Scripts Warfarin Sod (Coumadin)5 Mg Tab5 Mg PO DAILY@1600 31 Days Prov:Jakub Quevedo MD 10/28/15 Clopidogrel Bisulfate (Plavix)75 Mg Tab75 Mg PO DAILY 31 Days Prov:Jakub Quevedo MD 10/28/15 Carvedilol 12.5 mg (Coreg 12.5 mg)12.5 Mg Tab25 Mg PO BID 31 Days Prov:Jakub Quevedo MD 10/28/15 Ciprofloxacin (Ciprofloxacin HCl)750 Mg Yug591 Mg PO Q12HR 9 Days Prov:Tamra Suazo MD 10/19/15 Cephalexin Monohydrate (Keflex 500 mg Cap)500 Mg Vwe515 Mg PO Q8HR 9 Days Prov:Tamra Suazo MD 10/19/15 Albuterol/Ipratropium (Resp: Albuterol/Ipratropium 2.5 Mg/0.5 Mg)1 Amp Nebu1 Ampule NEB QID NEB 30 Days Prov:Tamra Suazo MD 10/19/15 Lactobacillus Acidophilus (Lactinex)1 Tab Tab1 Tab PO BID 31 Days Prov:Tamra Suazo MD 10/19/15 Furosemide (Lasix 20 Mg Tab)20 Mg Tab20 Mg PO BID@18 31 Days Prov:Jakub Quevedo MD 09/16/15 Atorvastatin (Lipitor 80 Mg Tab)80 Mg Tab80 Mg PO DAILY 31 Days Prov:Jakub Quevedo MD 09/16/15 Insulin Detemir (Levemir) Inj10 Units SQ HS 31 Days Prov:Jakub Quevedo MD 09/16/15 Potassium Chloride (Kcl 20 Meq Tab)20 Meq Tabcr20 Meq PO BID 30 Days Prov:Claudio Moon MD 05/02/15 Magnesium Oxide (Mag-Ox 400 Mg Tab)400 Mg Hcp142 Mg PO Q12HR 30 Days Prov:Claudio Moon MD 05/02/15 Enalapril Maleate (Vasotec 5 Mg Tab)5 Mg Tab2.5 Mg PO BID 30 Days Prov:Claudio Moon MD 05/02/15 Aspirin (Ecotrin)81 Mg Tabec81 Mg PO DAILY 30 Days Prov:Claudio Moon MD 05/02/15 Isosorbide Mononitrate (Imdur 60 Mg)60 Mg Tabcr60 Mg PO DAILY@07 30 Days Prov:Pastor Lu MD 12/26/14 Carvedilol 6.25 mg (Coreg 6.25 mg)6.25 Mg Tab12.5 Mg PO Q12HR 30 Days Prov:Pastor Lu MD 12/26/14 Current Medications Medications (Trade) Dose Ordered Sig/Estuardo Route Start Time Stop Time Status Last Admin (NS Flush) 2 ml UNSCH PRN FLUSH 10/15/15 23:30 (NS Flush) 2 ml BID FLUSH 10/16/15 09:00 10/31/15 08:13 (Zofran Inj) 4 mg Q6H PRN IVP 10/15/15 23:30 (Dulcolax Supp) 10 mg DAILY PRN [place] 10/15/15 23:30 (Narcan Inj) 0.4 mg UNSCH PRN IV 10/15/15 23:30 (Lipitor) 80 mg DAILY PO 10/16/15 09:00 10/31/15 08:12 (Levemir Inj) 10 units HS SQ 10/16/15 21:00 10/30/15 20:58 (Imdur) 60 mg DAILY@07 PO 10/16/15 07:00 10/31/15 06:02 (D50w (Vial) Inj) 25 ml UNSCH PRN IV 10/17/15 08:15 (Glucagon Inj) 1 mg UNSCH PRN IM/SQ 10/17/15 08:15 (Santyl Oint) 1 applic DAILY TOP 10/17/15 15:00 10/30/15 09:00 (Vasotec) 2.5 mg BID PO 10/20/15 09:00 10/30/15 20:57 (Coumadin) 5 mg DAILY@1600 PO 10/23/15 23:00 10/30/15 16:21 (Coreg) 25 mg BID PO 10/24/15 21:00 10/30/15 20:57 Phenol 2 spray 2 spray Q2H PRN MT 10/29/15 12:00 (Coumadin Consult Pharmacy) 0 ml @ 0 mls/hr UNSCH XX 10/30/15 05:30 (Tylenol) 650 mg Q4H PRN PO 10/30/15 05:30 (Colace) 100 mg BID PRN PO 10/30/15 05:30 (Tums Chew) 1,000 mg TID PRN CHEW 10/30/15 05:30 (Catapres) 0.1 mg Q6H PRN PO 10/30/15 05:30 (Geodon Inj) 10 mg BID PRN IM 10/30/15 13:00 Family History Unknown at this time that appears patient was found on the floor in his home by family member Social History See above Patient's Strengths (min. 2) Appears patient has strong family support [facility] Physical Exam Physical Exam Please see [facility] assessments Mental Status Mental Status Patient alert confused obese white male weighing calmly in bed RN present throughout session. Patient showing marked thought blocking responses are garbled and at times indecipherable. Though he does have intense eye contact with what appears to be attempts at cooperating General Marked thought blocking unintelligible responses Attitude Toward Examiner Attempting to cooperate Mood Somewhat irritable Affect increase intensity and range Speech Garbled Memory Will to ascertain due to encephalopathy Perception (Hallucinations) Unable to ascertain due to encephalopathy Thought Process Unable to ascertain due to encephalopathy appears quite confused Suicidal/Homicidal Thoughts Able to ascertain Problem List: (1) Delirium secondary to multiple medical problems ICD Code: F05 Assessment & Plan Estimated LOS: days patient appears quite delirious significant encephalopathic issues would suggest scheduled Haldol as opposed to the Geodon Discharge Planning To be determined by [facility] services Request HC Surrog/Guard Advoc?: Yes Camacho Ashraf MD Oct 31, 2015 14:31
--- NOTE | 2015-10-31 16:21 | HHI.PR ---
Subjective Remarks Follow-up encephalopathy. No bizarre behavior today. He also denies cough and shortness of breath. Discussed with RN Objective Vitals Vital Signs Date Time Temp Pulse Resp B/P Pulse Ox O2 Delivery O2 Flow Rate FiO2 10/31/15 13:34 98.7 80 22 110/77 96 10/31/15 08:39 98.4 79 20 96/65 96 10/31/15 04:10 96.8 81 18 124/69 97 10/31/15 00:20 97.0 89 22 113/60 98 10/30/15 20:10 99.9 89 20 141/73 95 10/30/15 16:24 98.5 81 20 150/81 90 I/O 10/30/15 10/30/15 10/30/15 10/31/15 10/31/15 10/31/15 07:00 15:00 23:00 07:00 15:00 23:00 Intake Total 680 ml 120 ml Balance 680 ml 120 ml Intake Oral 680 ml 120 ml # Voids 3 3 2 1 # Bowel Movements 3 3 1 Result Diagram: 10/31/15 0809 10/31/15 0809 Imaging Last Impressions Chest X-Ray 10/31/15 0000 Signed Impressions: Service Date/Time: Saturday, October 31, 2015 10:47 - CONCLUSION: Cardiomegaly with bibasilar atelectasis. Jakub Chandra MD Liver Ultrasound 10/30/15 0000 Signed Impressions: Service Date/Time: Friday, October 30, 2015 17:29 - CONCLUSION: 1. Cholelithiasis with probable gallbladder sludge and mild gallbladder distention. 2. Splenomegaly. Sameer Alexandra MD Modified Barium Swallow 10/27/15 0000 Signed Impressions: Service Date/Time: Tuesday, October 27, 2015 00:00 - CONCLUSION: Negative for penetration or aspiration. Please see speech pathology report. Tai Cohen MD Brain MRI 10/22/15 0000 Signed Impressions: Service Date/Time: September 14:38 - CONCLUSION: 1. No significant interval change is identified. There is stable restricted diffusion in the left basal ganglia representing an area of recent ischemia. There are no findings to indicate hemorrhagic transformation. The previously documented signal change within the right cerebral peduncle has nearly normalized. 2. Stable chronic white matter changes. Camacho Culp MD Neck Magnetic Resonance Angiography 10/21/15 0000 Signed Impressions: Service Date/Time: Wednesday, October 21, 2015 12:52 - CONCLUSION: . 1. Unremarkable MRA of the carotid arteries bilaterally. 2. Nonspecific possible collateral vessels in the soft tissues posterior to the right vertebral artery. The right verbal artery appears to be patent. If clinically indicated, a CTA could be performed for further evaluation. Abiodun Hall MD Head Magnetic Resonance Angiography 10/21/15 Signed Impressions: Service Date/Time: Wednesday, October 21, 2015 12:52 - CONCLUSION: Unremarkable MRA of the brain. Abiodun Hall MD Head CT 10/15/152116 Signed Impressions: Service Date/Time: September 21:47 - CONCLUSION: 1. No evidence of hemorrhage or mass effect. 2. Lacunar infarct right thalamus, left basal ganglia and adjacent to the left lateral ventricular body. 3. No skull fracture seen. Daryl Varner MD Objective Remarks GENERAL: Well-nourished, well-developed patient in no apparent distress. SKIN: Warm and dry. HEAD: Atraumatic. Normocephalic. EYES: Pupils equal and round. No scleral icterus. No injection or drainage. ENT: No nasal bleeding or discharge. Mucous membranes pink and moist. NECK: Trachea midline. No JVD. CARDIOVASCULAR: Regular rate and rhythm. RESPIRATORY: No accessory muscle use. Decreased Breath sounds equal bilaterally. GASTROINTESTINAL: Abdomen soft, non-tender, nondistended. MUSCULOSKELETAL: Extremities without clubbing, cyanosis, or edema. Right BKA. Left leg with healing wound. No drainage NEUROLOGICAL: Awake and alert. No obvious cranial nerve deficits. Motor grossly within normal limits. Five out of 5 muscle strength in the arms and legs. Normal speech. Calm and cooperative Procedures None A/P Problem List: (1) Cellulitis Status: Resolved (2) Ischemic cardiomyopathy Status: Chronic (3) Diabetes mellitus type 2 in obese Status: Chronic (4) S/P BKA (below knee amputation) unilateral Status: Chronic (5) Acute metabolic encephalopathy Status: Acute (6) Bacteremia Status: Resolved (7) Chronic systolic (congestive) heart failure Status: Chronic (8) Venous stasis ulcer of left lower extremity Status: Chronic (9) Shortness of breath Status: Chronic (10) CVA (cerebral vascular accident) Status: Acute Assessment and Plan 60-year-old male with Leukocytosis. Worse today. No fever. Repeat chest x-ray without infiltrate. Obtain urinalysis RN to do straight catheterization. Blood cultures also obtained. Repeat CBC in the morning Cellulitis of the left lower ext. with staph coag neg bacteremia in 4/4 tubes. Staph haemolyticus in aerobic tubes, with different sensitivities, contaminant likely. - Chronic venous stasis ulcers on the left lower ext. Clinically improved- cellulitis resolved. - wound cultures - MSSA, Serratia marcescens - Dr. Messina/ID ff; On Keflex and Cipro for 10 days (vancomycin DCed) and completed 10/26. Bilateral CVA:MRI showed acute cortical infarct. MRA of head and neck unremarkable. Neurology following. s/p ASA and Plavix. Continue with Statin, Coumadin and monitor INR/PT 1.7 today Acute metabolic encephalopathy - baseline neuro status unknown but there is suspicion of chronic cognitive impairment/dementia. -CT head was unremarkable for any acute findings. -Mildly elevated NH3 level. Continue lactulose. Liver sonogram with gallstone and sludge -Consulted psychiatry who started Haldol and discontinue Geodon Mild elevation of troponin without upward trend in the setting of CKD - No chest pain. Likely due to CKD. CKD stage 3 likely diabetic creatinine worse likely from diuretics yesterday. Avoid nephrotoxins. Repeat BMP in the morning Hypernatremia -stable Metabolic acidosis due to CKD ; resolved Cardiomyopathy/chronic systolic CHF LVEF 35% on echo 03/2015 - currently no exacerbation. Ct Coreg 25mg BID and enalapril. Lasix IV as needed. Cardiology following to consider AICD Diabetes mellitus A1c 7.5- cont long acting insulin Levemir 10 units sq HS, Novolog low SSI. Accu check controlled. PAD -stable on NovoLog Physical deconditioning: PT following DVT prophylaxis with Coumadin Discharge Planning He is not stable for discharge Problem Qualifiers (1) Cellulitis: Claudio Moon MD Oct 31, 2015 16:21
[2015-10-31] MEDS: RESP: ALBUTEROL 0.63 MG/3 ML NEB (SCH) NEB ×2 (16:42→19:30)
[2015-10-31 17:43] LABS: BACTERIA, URINE FEW /hpf; BLOOD, URINE NEG (NEG); COMMENT (UR) CULT NOT INDICATED; CULTURE IF INDICATED CULT NOT INDICATED; GLUCOSE,URINE NEG (NEG); KETONE, URINE NEG (NEG); NITRITE,URINE NEG (NEG); SQUAMOUS EPITHELIAL CELL URINE <1 /hpf (0-5); URINE COLOR YELLOW (YELLW/STRAW)
[2015-10-31] MEDS: NYSTATIN 100,000 U/GM PWD 15 GM BTL TOPICAL SCH (18:17)
[2015-10-31] MEDS: HALOPERIDOL 2 MG TAB PO SCH (18:18)
[2015-10-31] MEDS: WARFARIN SOD 5 MG TAB PO SCH (18:18)
--- NOTE | 2015-10-31 19:14 | RADRPT ---
EXAM DATE/TIME: 10/31/2015 18:38 [place] COMPARISON: CHEST SINGLE AP, October 31, 2015, 10:47. INDICATIONS : Shortness of breath. MEDICAL HISTORY : Congestive heart failure. SURGICAL HISTORY : CABG. ENCOUNTER: Subsequent ACUITY: 3 weeks PAIN SCORE: Non-responsive. LOCATION: Bilateral chest FINDINGS: Heart is enlarged. Mild interstitial edema is present. Minimal bibasilar parenchymal changes are no kate. Sternal wire is evident. CONCLUSION: Mild interstitial edema persists. Didier Clay MD FACR on October 31, 2015 at 19:08 Board Certified Radiologist. This report was verified electronically.
[2015-10-31] MEDS: CLINDAMYCIN INJ 600 MG in SODIUM CHLORIDE 0.9% INJ 100 ML IV SCH (20:56)
[2015-10-31] MEDS: INSULIN DETEMIR 100 UNITS/ML VIAL SQ SCH (22:05)
[2015-11-01] VITALS (8 sets, daily range): BP systolic 98–126; BP diastolic 62–81; PULSE 69–92; RESP 16–22; TEMP 95.6–99; O2SAT 93–98
[2015-11-01] MEDS: CLINDAMYCIN INJ 600 MG in SODIUM CHLORIDE 0.9% INJ 100 ML IV SCH ×4 (03:04→20:00)
[2015-11-01] MEDS: RESP: ALBUTEROL 0.63 MG/3 ML NEB (SCH) NEB ×4 (04:00→22:02)
[2015-11-01] MEDS: INSULIN ASPART SUPPLEMENTAL SCALE SQ SCH ×4 (06:31→21:00)
[2015-11-01] MEDS: ISOSORBIDE MONONITRATE 60 MG TAB PO SCH (06:31)
[2015-11-01] MEDS: CARVEDILOL 12.5 MG TAB PO SCH ×2 (08:57→22:47)
[2015-11-01] MEDS: HALOPERIDOL 2 MG TAB PO SCH ×3 (08:57→16:43)
[2015-11-01] MEDS: SODIUM CHLORIDE 0.9% FLUSH 5 ML FLUSH FLUSH SCH ×2 (08:57→21:00)
[2015-11-01] MEDS: ATORVASTATIN 80 MG TAB PO SCH (08:58)
[2015-11-01] MEDS: NYSTATIN 100,000 U/GM PWD 15 GM BTL TOPICAL SCH (08:58)
[2015-11-01] MEDS: ENALAPRIL MALEATE 2.5 MG TAB PO SCH ×2 (08:58→22:47)
[2015-11-01 09:54] LABS: AUTOMATED NEUTROPHIL # 11.8 TH/MM3 (1.8-7.7); BASOPHIL % 0.1 % (0.0-2.0); EOSINOPHIL # 0.3 TH/MM3 (0-0.4); EOSINOPHIL % 2.1 % (0.0-4.0); INTERNATIONAL NORMALIZED RATIO 1.5 RATIO; LYMPH % 5.6 % (9.0-44.0); LYMPHOCYTE # 0.8 TH/MM3 (1.0-4.8); MEAN CELL VOLUME 84.5 FL (80.0-100.0); MEAN CORPUSCULAR HGB CONC 31.9 % (32.0-36.0); MONO % 5.6 % (0.0-8.0); NEUT % 86.6 % (16.0-70.0); PLATELET COUNT 97 TH/MM3 (150-450); PROTHROMBIN TIME - PATIENT 16.3 SEC (9.8-11.4); RED BLOOD COUNT 3.08 MIL/MM3 (4.50-5.90); RED CELL DISTRIBUTION WIDTH 15.9 % (11.6-17.2); WHITE BLOOD COUNT 13.7 TH/MM3 (4.0-11.0)
[2015-11-01 09:56] LABS: HEMO FLAGS AUTO DIFF
[2015-11-01 10:10] LABS: BICARBONATE 32.9 MEQ/L (21.0-32.0); MAGNESIUM 1.6 MG/DL (1.5-2.5); POTASSIUM 3.5 MEQ/L (3.5-5.1)
[2015-11-01 10:42] LABS: SCAN/DIFF AUTO DIFF CONFIRMED
[2015-11-01] MEDS ORDERED: WARFARIN SOD 6 MG TAB PO SCH (16:00)
--- NOTE | 2015-11-01 16:05 | HHI.PR ---
Subjective Remarks Follow-up dysphagia. Patient downgraded to pured diet with nectar thick liquids per speech therapy. Appears drowsy but no cough or choking episodes. Tmax 100.6 Objective Vitals Vital Signs Date Time Temp Pulse Resp B/P Pulse Ox O2 Delivery O2 Flow Rate FiO2 11/01/15 12:29 97.4 69 16 98/62 95 11/01/15 08:44 97 Nasal Cannula 2.00 11/01/15 08:11 97.3 74 16 121/68 94 11/01/15 04:25 98.5 92 22 126/73 93 11/01/15 00:10 99.0 79 19 111/69 98 10/31/15 20:15 100.6 86 20 108/67 95 10/31/15 19:33 98 Nasal Cannula 3.00 10/31/15 18:00 93 Nasal Cannula 3.00 10/31/15 16:48 98 Nasal Cannula 3.00 10/31/15 16:31 99.3 80 20 104/67 95 I/O 10/31/15 10/31/15 10/31/15 11/01/15 11/01/15 11/01/15 07:00 15:00 23:00 07:00 15:00 23:00 Intake Total 240 ml 120 ml Balance 240 ml 120 ml Intake Oral 240 ml 120 ml # Voids 1 3 2 2 # Bowel Movements 1 0 Result Diagram: 11/01/1581211/01/15812 Objective Remarks GENERAL: Well-nourished, well-developed patient in no apparent distress. SKIN: Warm and dry. HEAD: Atraumatic. Normocephalic. EYES: Pupils equal and round. No scleral icterus. No injection or drainage. ENT: No nasal bleeding or discharge. Mucous membranes pink and moist. NECK: Trachea midline. No JVD. CARDIOVASCULAR: Regular rate and rhythm. RESPIRATORY: No accessory muscle use. Decreased Breath sounds equal bilaterally. GASTROINTESTINAL: Abdomen soft, non-tender, nondistended. MUSCULOSKELETAL: Extremities without clubbing, cyanosis, or edema. Right BKA. Left leg with healing wound. No drainage NEUROLOGICAL: Drowsy but easily arousable following commands . No obvious cranial nerve deficits. Motor grossly within normal limits. Five out of 5 muscle strength in the arms and legs. Normal speech. Calm and cooperative Procedures None A/P Problem List: (1) Cellulitis Status: Resolved (2) Ischemic cardiomyopathy Status: Chronic (3) Diabetes mellitus type 2 in obese Status: Chronic (4) S/P BKA (below knee amputation) unilateral Status: Chronic (5) Acute metabolic encephalopathy Status: Acute (6) Bacteremia Status: Resolved (7) Chronic systolic (congestive) heart failure Status: Chronic (8) Venous stasis ulcer of left lower extremity Status: Chronic (9) Shortness of breath Status: Chronic (10) CVA (cerebral vascular accident) Status: Acute Assessment and Plan 60-year-old male with Sepsis. Leukocytosis improved today. Repeat chest x-ray with no acute findings. Repeat urinalysis negative. Continue clindamycin for aspiration Cellulitis of the left lower ext. with staph coag neg bacteremia in 4/4 tubes. Staph haemolyticus in aerobic tubes, with different sensitivities, contaminant likely. - Chronic venous stasis ulcers on the left lower ext. Clinically improved- cellulitis resolved. - wound cultures - MSSA, Serratia marcescens - Dr. Messina/TISHA ff; On Keflex and Cipro for 10 days (vancomycin DCed) and completed 10/26. Bilateral CVA:MRI showed acute cortical infarct. MRA of head and neck unremarkable. Neurology following. S/p ASA and Plavix. Continue with Statin, Coumadin and monitor INR/PT keep INR between 2 and 3 Acute metabolic encephalopathy - baseline neuro status unknown but there is suspicion of chronic cognitive impairment/dementia. -CT head was unremarkable for any acute findings. -Mildly elevated NH3 level. Continue lactulose. Liver sonogram with gallstone and sludge -Consulted psychiatry who started Haldol and discontinue Geodon Mild elevation of troponin without upward trend in the setting of CKD - No chest pain. Likely due to CKD. CKD stage 3 likely diabetic creatinine worse likely from diuretics. Avoid nephrotoxins. Repeat BMP in the morning Hypernatremia -stable Metabolic acidosis due to CKD ; resolved Cardiomyopathy/chronic systolic CHF LVEF 35% on echo 03/2015 - currently no exacerbation. Ct Coreg 25mg BID and enalapril. Lasix IV as needed. Cardiology following to consider AICD Diabetes mellitus A1c 7.5- cont long acting insulin Levemir 10 units sq HS, Novolog low SSI. Accu check controlled. PAD -stable on NovoLog Physical deconditioning: PT following. Out of bed to chair 3 times a day. Fall precautions DVT prophylaxis with Coumadin Discharge Planning He is not stable for discharge Problem Qualifiers (1) Cellulitis: Claudio Moon MD Nov 01, 2015 16:04
[2015-11-01] MEDS: INSULIN DETEMIR 100 UNITS/ML VIAL SQ SCH (21:00)
[2015-11-02] VITALS (8 sets, daily range): BP systolic 121–143; BP diastolic 75–81; PULSE 70–73; RESP 16–20; TEMP 96.1–98.6; O2SAT 93–99
[2015-11-02] MEDS: CLINDAMYCIN INJ 600 MG in SODIUM CHLORIDE 0.9% INJ 100 ML IV SCH ×3 (03:00→12:32)
[2015-11-02] MEDS: RESP: ALBUTEROL 0.63 MG/3 ML NEB (SCH) NEB ×4 (03:17→21:16)
[2015-11-02] MEDS: ISOSORBIDE MONONITRATE 60 MG TAB PO SCH (05:50)
[2015-11-02] MEDS: INSULIN ASPART SUPPLEMENTAL SCALE SQ SCH ×4 (05:56→21:00)
[2015-11-02 07:00] LABS: AUTOMATED NEUTROPHIL # 6.8 TH/MM3 (1.8-7.7); BASOPHIL % 0.4 % (0.0-2.0); EOSINOPHIL # 0.4 TH/MM3 (0-0.4); EOSINOPHIL % 4.9 % (0.0-4.0); HEMATOCRIT 28.6 % (39.0-51.0); HEMO FLAGS DIFF FINAL; LYMPH % 8.2 % (9.0-44.0); LYMPHOCYTE # 0.7 TH/MM3 (1.0-4.8); MEAN CELL VOLUME 83.8 FL (80.0-100.0); MEAN CORPUSCULAR HEMOGLOBIN 27.2 PG (27.0-34.0); MEAN CORPUSCULAR HGB CONC 32.5 % (32.0-36.0); MONO % 6.7 % (0.0-8.0); NEUT % 79.8 % (16.0-70.0); PLATELET COUNT 109 TH/MM3 (150-450); RED BLOOD COUNT 3.42 MIL/MM3 (4.50-5.90); RED CELL DISTRIBUTION WIDTH 15.9 % (11.6-17.2); WHITE BLOOD COUNT 8.6 TH/MM3 (4.0-11.0)
[2015-11-02 07:03] LABS: INTERNATIONAL NORMALIZED RATIO 2.1 RATIO; PROTHROMBIN TIME - PATIENT 23.2 SEC (9.8-11.4)
[2015-11-02 07:25] LABS: BICARBONATE 29.9 MEQ/L (21.0-32.0); MAGNESIUM 1.7 MG/DL (1.5-2.5); POTASSIUM 3.8 MEQ/L (3.5-5.1)
[2015-11-02] MEDS: HALOPERIDOL 2 MG TAB PO SCH ×3 (08:18→17:08)
[2015-11-02] MEDS: CARVEDILOL 12.5 MG TAB PO SCH ×2 (08:18→22:19)
[2015-11-02] MEDS: ENALAPRIL MALEATE 2.5 MG TAB PO SCH ×2 (08:18→22:19)
[2015-11-02] MEDS: ATORVASTATIN 80 MG TAB PO SCH (08:18)
[2015-11-02] MEDS: NYSTATIN 100,000 U/GM PWD 15 GM BTL TOPICAL SCH (08:19)
[2015-11-02] MEDS: SODIUM CHLORIDE 0.9% FLUSH 5 ML FLUSH FLUSH SCH ×2 (08:19→22:19)
[2015-11-02] MEDS ORDERED: WARFARIN SOD 5 MG TAB PO SCH (16:00)
--- NOTE | 2015-11-02 16:27 | HHI.PR ---
Subjective Remarks F/u aspiration. Denies SOB and choking episodes. Bala RN Objective Vitals Vital Signs Date Time Temp Pulse Resp B/P Pulse Ox O2 Delivery O2 Flow Rate FiO2 11/02/15 16:09 98 Nasal Cannula 2.00 11/02/15 13:24 98.6 70 18 121/76 97 11/02/15 10:01 93 Nasal Cannula 2.00 11/02/15 08:36 97.6 72 19 125/75 98 11/02/15 04:15 97.9 72 20 143/81 99 11/02/15 00:30 96.1 72 20 123/78 95 11/01/15 22:03 98 Nasal Cannula 2.00 11/01/15 20:15 97.7 73 20 124/81 95 11/01/15 17:21 95.6 77 18 118/68 97 I/O 11/01/15 11/01/15 11/01/15 11/02/15 11/02/15 11/02/15 07:00 15:00 23:00 07:00 15:00 23:00 Intake Total 360 ml Balance 360 ml Intake Oral 360 ml # Voids 2 5 2 Result Diagram: 11/02/1528 11/02/15627 Objective Remarks GENERAL: Well-nourished, well-developed patient in no apparent distress. SKIN: Warm and dry. HEAD: Atraumatic. Normocephalic. EYES: Pupils equal and round. No scleral icterus. No injection or drainage. ENT: No nasal bleeding or discharge. Mucous membranes pink and moist. NECK: Trachea midline. No JVD. CARDIOVASCULAR: Regular rate and rhythm. RESPIRATORY: No accessory muscle use. Decreased Breath sounds equal bilaterally. GASTROINTESTINAL: Abdomen soft, non-tender, nondistended. MUSCULOSKELETAL: Extremities without clubbing, cyanosis, or edema. Right BKA. Left leg with healing wound. No drainage NEUROLOGICAL: Awake and alert following commands . No obvious cranial nerve deficits. Motor grossly within normal limits. Five out of 5 muscle strength in the arms and legs. Normal speech. Calm and cooperative Procedures None A/P Problem List: (1) Cellulitis Status: Resolved (2) Ischemic cardiomyopathy Status: Chronic (3) Diabetes mellitus type 2 in obese Status: Chronic (4) S/P BKA (below knee amputation) unilateral Status: Chronic (5) Acute metabolic encephalopathy Status: Acute (6) Bacteremia Status: Resolved (7) Chronic systolic (congestive) heart failure Status: Chronic (8) Venous stasis ulcer of left lower extremity Status: Chronic (9) Shortness of breath Status: Chronic (10) CVA (cerebral vascular accident) Status: Acute Assessment and Plan 60-year-old male with Sepsis. Leukocytosis improved today. Repeat chest x-ray with no acute findings. Repeat urinalysis negative. Continue clindamycin switch to po for aspiration Cellulitis of the left lower ext. with staph coag neg bacteremia in 4/4 tubes. Staph haemolyticus in aerobic tubes, with different sensitivities, contaminant likely. - Chronic venous stasis ulcers on the left lower ext. Clinically improved- cellulitis resolved. - wound cultures - MSSA, Serratia marcescens - Dr. Messina/TISHA ff; On Keflex and Cipro for 10 days (vancomycin DCed) and completed 10/26. Bilateral CVA:MRI showed acute cortical infarct. MRA of head and neck unremarkable. Neurology following. S/p ASA and Plavix. Continue with Statin, Coumadin and monitor INR/PT keep INR between 2 and 3 Acute metabolic encephalopathy - baseline neuro status unknown but there is suspicion of chronic cognitive impairment/dementia. -CT head was unremarkable for any acute findings. -Mildly elevated NH3 level. Continue lactulose. Liver sonogram with gallstone and sludge -Consulted psychiatry who started Haldol and discontinued Geodon. Improving behavior but still on restraints to prevent disruption of care Mild elevation of troponin without upward trend in the setting of CKD - No chest pain. Likely due to CKD. CKD stage 3 likely diabetic and from diuretics. Improving. Avoid nephrotoxins. Repeat BMP in the morning Hypernatremia -stable Metabolic acidosis due to CKD ; resolved Cardiomyopathy/chronic systolic CHF LVEF 35% on echo 03/2015 - currently no exacerbation. Ct Coreg 25mg BID and enalapril. Lasix IV as needed. Cardiology following to consider AICD Diabetes mellitus A1c 7.5- cont long acting insulin Levemir 10 units sq HS, Novolog low SSI. Accu check controlled. PAD -stable on NovoLog Physical deconditioning: PT following. Out of bed to chair 3 times a day. Fall precautions DVT prophylaxis with Coumadin Discharge Planning He is not stable for discharge Problem Qualifiers (1) Cellulitis: Claudio Moon MD Nov 02, 2015 16:26
[2015-11-02] MEDS: CLINDAMYCIN 150 MG CAP PO SCH ×2 (17:07→23:09)
[2015-11-02] MEDS: DOCUSATE SODIUM 100 MG CAP PO PRN (22:19)
[2015-11-02] MEDS: INSULIN DETEMIR 100 UNITS/ML VIAL SQ SCH (22:20)
[2015-11-03] VITALS (8 sets, daily range): BP systolic 133–159; BP diastolic 82–97; PULSE 68–70; RESP 14–18; TEMP 96.6–98.9; O2SAT 90–100
[2015-11-03] MEDS: RESP: ALBUTEROL 0.63 MG/3 ML NEB (SCH) NEB ×4 (05:06→21:04)
[2015-11-03] MEDS: CLINDAMYCIN 150 MG CAP PO SCH ×3 (05:32→16:55)
[2015-11-03] MEDS: ISOSORBIDE MONONITRATE 60 MG TAB PO SCH (05:32)
[2015-11-03] MEDS: INSULIN ASPART SUPPLEMENTAL SCALE SQ SCH ×4 (05:33→21:00)
[2015-11-03] MEDS ORDERED: LACTULOSE SYRUP 20 GM/30 ML CUP PO PRN (05:45)
[2015-11-03 08:35] LABS: INTERNATIONAL NORMALIZED RATIO 2.6 RATIO
[2015-11-03 08:36] LABS: PROTHROMBIN TIME - PATIENT 28.6 SEC (9.8-11.4)
[2015-11-03] MEDS: ATORVASTATIN 80 MG TAB PO SCH (08:42)
[2015-11-03] MEDS: HALOPERIDOL 2 MG TAB PO SCH ×3 (08:42→16:55)
[2015-11-03] MEDS: DOCUSATE SODIUM 50 MG/SENNA 8.6 MG TAB PO SCH ×2 (08:42→22:10)
[2015-11-03] MEDS: CARVEDILOL 12.5 MG TAB PO SCH ×2 (08:42→22:09)
[2015-11-03] MEDS: SODIUM CHLORIDE 0.9% FLUSH 5 ML FLUSH FLUSH SCH ×2 (08:43→21:00)
[2015-11-03] MEDS: ENALAPRIL MALEATE 2.5 MG TAB PO SCH ×2 (08:43→22:10)
[2015-11-03] MEDS: NYSTATIN 100,000 U/GM PWD 15 GM BTL TOPICAL SCH (08:43)
[2015-11-03 08:54] LABS: BICARBONATE 32.6 MEQ/L (21.0-32.0); MAGNESIUM 2.1 MG/DL (1.5-2.5); POTASSIUM 4.1 MEQ/L (3.5-5.1)
--- NOTE | 2015-11-03 13:09 | HHI.PR ---
Subjective Remarks Follow-up acute kidney injury. Patient voiding. He was out of bed to chair for several hours. Had a hard time waking him up. He received Haldol. Discussed with RN stable vital signs and not hypoglycemic. Also discussed with case management Objective Vitals Vital Signs Date Time Temp Pulse Resp B/P Pulse Ox O2 Delivery O2 Flow Rate FiO2 11/03/15 11:28 96.6 68 14 135/87 90 11/03/15 09:58 97 Nasal Cannula 2.00 11/03/15 08:06 98.3 70 14 159/97 90 11/03/15 04:48 97.2 69 18 135/85 98 11/03/15 00:37 97.7 69 18 133/82 98 11/02/15 20:21 97.6 73 16 142/81 95 11/02/15 16:31 98.3 71 20 121/76 95 11/02/15 16:09 98 Nasal Cannula 2.00 11/02/15 13:24 98.6 70 18 121/76 97 I/O 11/02/15 11/02/15 11/02/15 11/03/15 11/03/15 11/03/15 06:59 14:59 22:59 06:59 14:59 22:59 Intake Total 480 ml Balance 480 ml Intake Oral 480 ml # Voids 2 3 4 # Bowel Movements 0 Result Diagram: 11/02/15 0628 11/03/15 0757 Objective Remarks GENERAL: Well-nourished, well-developed patient in no apparent distress. SKIN: Warm and dry. HEAD: Atraumatic. Normocephalic. EYES: Pupils equal and round. No scleral icterus. No injection or drainage. ENT: No nasal bleeding or discharge. Mucous membranes pink and moist. NECK: Trachea midline. No JVD. CARDIOVASCULAR: Regular rate and rhythm. RESPIRATORY: No accessory muscle use. Decreased Breath sounds equal bilaterally. GASTROINTESTINAL: Abdomen soft, non-tender, nondistended. MUSCULOSKELETAL: Extremities without clubbing, cyanosis, or edema. Right BKA. Left leg with healing wound. No drainage NEUROLOGICAL: Lethargic but arousable following commands. No obvious cranial nerve deficits. Motor grossly within normal limits. Five out of 5 muscle strength in the arms and legs. Normal speech. Procedures None A/P Problem List: (1) Cellulitis Status: Resolved (2) Ischemic cardiomyopathy Status: Chronic (3) Diabetes mellitus type 2 in obese Status: Chronic (4) S/P BKA (below knee amputation) unilateral Status: Chronic (5) Acute metabolic encephalopathy Status: Acute (6) Bacteremia Status: Resolved (7) Chronic systolic (congestive) heart failure Status: Chronic (8) Venous stasis ulcer of left lower extremity Status: Chronic (9) Shortness of breath Status: Chronic (10) CVA (cerebral vascular accident) Status: Acute Assessment and Plan 60-year-old male with Sepsis. Leukocytosis improved today. Repeat chest x-ray with no acute findings. Repeat urinalysis negative. Continue clindamycin switch to po for aspiration until November 06 Cellulitis of the left lower ext. with staph coag neg bacteremia in 4/4 tubes. Staph haemolyticus in aerobic tubes, with different sensitivities, contaminant likely. - Chronic venous stasis ulcers on the left lower ext. Clinically improved- cellulitis resolved. - wound cultures - MSSA, Serratia marcescens - Dr. Mesisna/TISHA ff; On Keflex and Cipro for 10 days (vancomycin DCed) and completed 10/26. Bilateral CVA:MRI showed acute cortical infarct. MRA of head and neck unremarkable. Neurology following. S/p ASA and Plavix. Continue with Statin, Coumadin and monitor INR/PT keep INR between 2 and 3. INR 2.6 Acute metabolic encephalopathy - baseline neuro status unknown but there is suspicion of chronic cognitive impairment/dementia. -CT head was unremarkable for any acute findings. -Mildly elevated NH3 level. Continue lactulose. Liver sonogram with gallstone and sludge -Consulted psychiatry who started Haldol and discontinued Geodon. Improving behavior will discontinue restraints Mild elevation of troponin without upward trend in the setting of CKD - No chest pain. Likely due to CKD. CKD stage 4 likely diabetic and from diuretics. Improving better than baseline. Avoid nephrotoxins. Repeat BMP in the morning Hypernatremia -stable Metabolic acidosis due to CKD ; resolved Cardiomyopathy/chronic systolic CHF LVEF 35% on echo 03/2015 - currently no exacerbation. Ct Coreg 25mg BID and enalapril. Lasix IV as needed. Cardiology following to consider AICD Diabetes mellitus A1c 7.5- cont long acting insulin Levemir 10 units sq HS, Novolog low SSI. Accu check controlled. PAD -stable on NovoLog Physical deconditioning: PT following. Out of bed to chair 3 times a day. Fall precautions DVT prophylaxis with Coumadin Discharge Planning Possible discharge in the morning Problem Qualifiers (1) Cellulitis: Claudio Moon MD Nov 03, 2015 13:09
[2015-11-03] MEDS ORDERED: PERI8.6T PO (13:15)
[2015-11-03] MEDS ORDERED: COUM4TAB PO (13:15)
[2015-11-03] MEDS ORDERED: HALO2TAB PO (13:15)
[2015-11-03] MEDS ORDERED: CLIN150 PO (13:15)
[2015-11-03] MEDS ORDERED: WARFARIN SOD 3 MG TAB PO SCH (16:00)
[2015-11-04] VITALS (8 sets, daily range): BP systolic 118–169; BP diastolic 69–99; PULSE 70–91; RESP 16–22; TEMP 96–97.9; O2SAT 91–98
[2015-11-04] MEDS: CLINDAMYCIN 150 MG CAP PO SCH ×4 (00:45→17:21)
[2015-11-04] MEDS: RESP: ALBUTEROL 0.63 MG/3 ML NEB (SCH) NEB ×4 (03:23→21:26)
[2015-11-04] MEDS: INSULIN ASPART SUPPLEMENTAL SCALE SQ SCH ×4 (05:55→21:45)
[2015-11-04] MEDS: ISOSORBIDE MONONITRATE 60 MG TAB PO SCH (06:24)
[2015-11-04] MEDS: SODIUM CHLORIDE 0.9% FLUSH 5 ML FLUSH FLUSH SCH ×2 (09:00→21:00)
[2015-11-04] MEDS: ENALAPRIL MALEATE 2.5 MG TAB PO SCH ×2 (09:15→21:43)
[2015-11-04] MEDS: POLYETHYLENE GLYCOL 17 GM PKG PO SCH (09:15)
[2015-11-04] MEDS: HALOPERIDOL 2 MG TAB PO SCH ×3 (09:15→17:21)
[2015-11-04] MEDS: DOCUSATE SODIUM 50 MG/SENNA 8.6 MG TAB PO SCH ×2 (09:15→21:43)
[2015-11-04] MEDS: CARVEDILOL 12.5 MG TAB PO SCH ×2 (09:15→21:43)
[2015-11-04] MEDS: ATORVASTATIN 80 MG TAB PO SCH (09:15)
[2015-11-04] MEDS: LACTULOSE SYRUP 20 GM/30 ML CUP PO SCH (09:16)
[2015-11-04] MEDS: NYSTATIN 100,000 U/GM PWD 15 GM BTL TOPICAL SCH (09:16)
[2015-11-04 10:10] LABS: INTERNATIONAL NORMALIZED RATIO 2.6 RATIO; PROTHROMBIN TIME - PATIENT 28.5 SEC (9.8-11.4)
--- NOTE | 2015-11-04 14:57 | HHI.PR ---
Subjective Remarks Seen for encephalopathy. He is more awake today oriented to person and place. No agitation. Discussed with RN Objective Vitals Vital Signs Date Time Temp Pulse Resp B/P Pulse Ox O2 Delivery O2 Flow Rate FiO2 11/04/15 13:43 97.0 71 18 118/69 93 11/04/15 08:40 96.8 75 17 155/89 95 11/04/15 08:36 98 Nasal Cannula 2.00 11/04/15 04:28 97.7 70 20 157/89 95 11/04/15 00:04 97.9 91 22 159/99 95 11/03/15 20:50 98.9 70 18 144/89 100 11/03/15 16:39 98.3 68 16 139/82 97 11/03/15 16:21 98 Nasal Cannula 2.00 I/O 11/03/15 11/03/15 11/03/15 11/04/15 11/04/15 11/04/15 07:00 15:00 23:00 07:00 15:00 23:00 Intake Total 425 ml Output Total 350 ml Balance 75 ml Intake Oral 425 ml Output Urine Total 350 ml # Voids 4 3 # Bowel Movements 0 0 0 Result Diagram: 11/02/15 0628 11/03/15 0757 Objective Remarks GENERAL: Well-nourished, well-developed patient in no apparent distress. SKIN: Warm and dry. HEAD: Atraumatic. Normocephalic. EYES: Pupils equal and round. No scleral icterus. No injection or drainage. ENT: No nasal bleeding or discharge. Mucous membranes pink and moist. NECK: Trachea midline. No JVD. CARDIOVASCULAR: Regular rate and rhythm. RESPIRATORY: No accessory muscle use. Decreased Breath sounds equal bilaterally. GASTROINTESTINAL: Abdomen soft, non-tender, nondistended. MUSCULOSKELETAL: Extremities without clubbing, cyanosis, or edema. Right BKA. Left leg with healing wound. No drainage NEUROLOGICAL: Awake and oriented to person and place following commands. No obvious cranial nerve deficits. Motor grossly within normal limits. Five out of 5 muscle strength in the arms and legs. Normal speech. Procedures None A/P Problem List: (1) Cellulitis Status: Resolved (2) Ischemic cardiomyopathy Status: Chronic (3) Diabetes mellitus type 2 in obese Status: Chronic (4) S/P BKA (below knee amputation) unilateral Status: Chronic (5) Acute metabolic encephalopathy Status: Acute (6) Bacteremia Status: Resolved (7) Chronic systolic (congestive) heart failure Status: Chronic (8) Venous stasis ulcer of left lower extremity Status: Chronic (9) Shortness of breath Status: Chronic (10) CVA (cerebral vascular accident) Status: Acute Assessment and Plan 60-year-old male with Sepsis. Leukocytosis improved. Repeat chest x-ray with no acute findings. Repeat urinalysis negative. Continue clindamycin switched to po for aspiration until November 06 Cellulitis of the left lower ext. with staph coag neg bacteremia in 4/4 tubes. Staph haemolyticus in aerobic tubes, with different sensitivities, contaminant likely. - Chronic venous stasis ulcers on the left lower ext. Clinically improved- cellulitis resolved. - wound cultures - MSSA, Serratia marcescens - Dr. Messina/TISHA ff; On Keflex and Cipro for 10 days (vancomycin DCed) and completed 10/26. Bilateral CVA:MRI showed acute cortical infarct. MRA of head and neck unremarkable. Neurology following. S/p ASA and Plavix. Continue with Statin, Coumadin and monitor INR/PT keep INR between 2 and 3. Acute metabolic encephalopathy - baseline neuro status unknown but there is suspicion of chronic cognitive impairment/dementia. -CT head was unremarkable for any acute findings. -Mildly elevated NH3 level. Continue lactulose. Liver sonogram with gallstone and sludge -Consulted psychiatry who started Haldol and discontinued Geodon. Improving behavior discontinue the restraints since 11/03/15 Mild elevation of troponin without upward trend in the setting of CKD - No chest pain. Likely due to CKD. CKD stage 4 likely diabetic and from diuretics. Improving better than baseline. Avoid nephrotoxins. Repeat BMP Hypernatremia -stable Metabolic acidosis due to CKD ; resolved Cardiomyopathy/chronic systolic CHF LVEF 35% on echo 03/2015 - currently no exacerbation. Ct Coreg 25mg BID and enalapril. Lasix IV as needed. Cardiology following to consider AICD Diabetes mellitus A1c 7.5- cont long acting insulin Levemir 10 units sq HS, Novolog low SSI. Accu check controlled. PAD -stable on NovoLog Physical deconditioning: PT following. Out of bed to chair 3 times a day. Fall precautions DVT prophylaxis with Coumadin Discharge Planning Stable for dc to SNF pending insurance authorization Problem Qualifiers (1) Cellulitis: Claudio Moon MD Nov 04, 2015 14:57
--- NOTE | 2015-11-04 15:32 | HHI.DS ---
Discharge Summary Admission Date Oct 15, 2015 at 23:15 Discharge Date: Nov 09, 2015 Admitting Diagnosis mild rabdo, elevated troponin, generalized weakness, fall (1) Cellulitis Diagnosis: Principal (2) Ischemic cardiomyopathy Diagnosis: Principal (3) Diabetes mellitus type 2 in obese Diagnosis: Secondary (4) S/P BKA (below knee amputation) unilateral Diagnosis: Secondary (5) Acute metabolic encephalopathy Diagnosis: Principal (6) Bacteremia Diagnosis: Principal (7) Chronic systolic (congestive) heart failure Diagnosis: Principal (8) Venous stasis ulcer of left lower extremity Diagnosis: Secondary (9) Shortness of breath Diagnosis: Principal (10) CVA (cerebral vascular accident) Diagnosis: Secondary Procedures None Brief History - From Admission Mr. Amado is a 60 year old male with a history of ischemic cardiomyopathy (EF 35-40%), CABG, stent placement who was found on the floor by family members and subsequently brought to the ED for altered mental status. GCS 14 on arrival, improved to 15 with oxygen and IV fluids. Per EMS, patient's living condition at home is very poor. Patient is alert, oriented to self and place. He is unable to give any meaningful history. He denies any chest pain, SOB, fever, chills. On arrival, BP 162/108, RR 18, Pulse 96, T 97.8, 96-98% saturation on 2L of O2 via nasal cannula. CBC shows wbc 10, Hgb 10.3, Hct 32.4, Plt 168. BMP shows Na 147, K+ 3.8, BUN 22, Creatinine 1.78, Glucose 157, CPK 883, troponin 0.13. Head CT was unremarkable for acute findings. Cardiac history: - 12/18/2014 cardiac catheter status post stent placement 2.512 mm to proximal left circumflex - 04/30/2015 Echocardiogram EF 35-40% diffuse hypokinesis area CBC/BMP: 11/02/15 0628 11/03/15 0757 Significant Findings Laboratory Tests Test 11/02/15 11/03/15 11/04/15 06:28 07:57 09:02 Red Blood Count 3.42 MIL/MM3 (4.50-5.90) Hemoglobin 9.3 GM/DL (13.0-17.0) Hematocrit 28.6 % (39.0-51.0) Platelet Count 109 TH/MM3 (150-450) Neutrophils (%) (Auto) 79.8 % (16.0-70.0) Lymphocytes (%) (Auto) 8.2 % (9.0-44.0) Eosinophils (%) (Auto) 4.9 % (0.0-4.0) Lymphocytes # (Auto) 0.7 TH/MM3 (1.0-4.8) Prothrombin Time 23.2 SEC 28.6 SEC 28.5 SEC (9.8-11.4) (9.8-11.4) (9.8-11.4) Sodium Level 148 MEQ/L 148 MEQ/L (136-145) (136-145) Chloride Level 110 MEQ/L 110 MEQ/L (98-107) (98-107) Blood Urea Nitrogen 41 MG/DL (7-18) 38 MG/DL (7-18) Creatinine 1.57 MG/DL 1.54 MG/DL (0.60-1.30) (0.60-1.30) Estimat Glomerular Filtration 45 ML/MIN (>89) 46 ML/MIN (>89) Rate Calcium Level 8.0 MG/DL 8.2 MG/DL (8.5-10.1) (8.5-10.1) Carbon Dioxide Level 32.6 MEQ/L (21.0-32.0) Random Glucose 121 MG/DL (74-106) Imaging Last Impressions Chest X-Ray 10/31/15 0000 Signed Impressions: Service Date/Time: Saturday, October 31, 2015 18:38 - CONCLUSION: Mild interstitial edema persists. Didier Clay MD FACR Liver Ultrasound 10/30/15 0000 Signed Impressions: Service Date/Time: Friday, October 30, 2015 17:29 - CONCLUSION: 1. Cholelithiasis with probable gallbladder sludge and mild gallbladder distention. 2. Splenomegaly. Sameer Alexandra MD Modified Barium Swallow 10/27/15 0000 Signed Impressions: Service Date/Time: Tuesday, October 27, 2015 00:00 - CONCLUSION: Negative for penetration or aspiration. Please see speech pathology report. Tai Cohen MD Brain MRI 10/22/15 Signed Impressions: Service Date/Time: September 14:38 - CONCLUSION: 1. No significant interval change is identified. There is stable restricted diffusion in the left basal ganglia representing an area of recent ischemia. There are no findings to indicate hemorrhagic transformation. The previously documented signal change within the right cerebral peduncle has nearly normalized. 2. Stable chronic white matter changes. Camacho Culp MD Neck Magnetic Resonance Angiography 10/21/15 Signed Impressions: Service Date/Time: Wednesday, October 21, 2015 12:52 - CONCLUSION: . 1. Unremarkable MRA of the carotid arteries bilaterally. 2. Nonspecific possible collateral vessels in the soft tissues posterior to the right vertebral artery. The right verbal artery appears to be patent. If clinically indicated, a CTA could be performed for further evaluation. Abiodun Hall MD Head Magnetic Resonance Angiography 10/21/15 Signed Impressions: Service Date/Time: Wednesday, October 21, 2015 12:52 - CONCLUSION: Unremarkable MRA of the brain. Abiodun Hall MD Head CT 10/15/152116 Signed Impressions: Service Date/Time: September 21:47 - CONCLUSION: 1. No evidence of hemorrhage or mass effect. 2. Lacunar infarct right thalamus, left basal ganglia and adjacent to the left lateral ventricular body. 3. No skull fracture seen. Daryl Varner MD PE at Discharge GENERAL: Well-nourished, well-developed patient in no apparent distress. SKIN: Warm and dry. HEAD: Atraumatic. Normocephalic. EYES: Pupils equal and round. No scleral icterus. No injection or drainage. ENT: No nasal bleeding or discharge. Mucous membranes pink and moist. NECK: Trachea midline. No JVD. CARDIOVASCULAR: Regular rate and rhythm. RESPIRATORY: No accessory muscle use. Decreased Breath sounds equal bilaterally. GASTROINTESTINAL: Abdomen soft, non-tender, nondistended. MUSCULOSKELETAL: Extremities without clubbing, cyanosis, or edema. Right BKA. Left leg with healing wound. No drainage NEUROLOGICAL: Awake and oriented to person and place following commands. No obvious cranial nerve deficits. Motor grossly within normal limits. Five out of 5 muscle strength in the arms and legs. Normal speech. Hospital Course 60-year-old male with Sepsis. Leukocytosis improved. Repeat chest x-ray with no acute findings. Repeat urinalysis negative. Status post clindamycin for aspiration Cellulitis of the left lower ext. with staph coag neg bacteremia in 4/4 tubes. Staph haemolyticus in aerobic tubes, with different sensitivities, contaminant likely. - Chronic venous stasis ulcers on the left lower ext. Clinically improved- cellulitis resolved. - wound cultures - MSSA, Serratia marcescens - Dr. Messina/TISHA ff; was on Keflex and Cipro for 10 days (vancomycin DCed) and completed 10/26. Bilateral CVA:MRI showed acute cortical infarct. MRA of head and neck unremarkable. Neurology following. S/p ASA and Plavix. Continue with Statin, Coumadin and monitor INR/PT keep INR between 2 and 3. INR 2.3 Acute metabolic encephalopathy - baseline neuro status unknown but there is suspicion of chronic cognitive impairment/dementia. -CT head was unremarkable for any acute findings. -Mildly elevated NH3 level. Continue lactulose. Liver sonogram with gallstone and sludge -Consulted psychiatry who started Haldol and discontinued Geodon. Improving behavior discontinued restraints since 11/03/15 Mild elevation of troponin without upward trend in the setting of CKD - No chest pain. Likely due to CKD. CKD stage 4 likely diabetic and from diuretics. Improving better than baseline creatinine 1.27. Avoid nephrotoxins. Monitor BMP Hypernatremia -stable Metabolic acidosis due to CKD ; resolved Cardiomyopathy/chronic systolic CHF LVEF 35% on echo 03/2015. Denies shortness of breath. Compensated. Ct Coreg 25mg BID and enalapril. Lasix IV as needed. Cardiology following to consider AICD Hypertension. Improving after increasing enalapril to 5 mg twice a day. Diabetes mellitus A1c 7.5- cont long acting insulin Levemir 10 units sq HS, Novolog low SSI. Accu check controlled. PAD -stable on NovoLog Physical deconditioning: PT following. Out of bed to chair 3 times a day. Fall precautions DVT prophylaxis with Coumadin Pt Condition on Discharge: Stable Discharge Disposition: Disch w/ Home Health Serv Discharge Time: > 30 minutes Discharge Instructions DIET: Follow Instructions for: Diabetic Diet Speech Therapy-Diet Recommends: Honey Thickened Liquids, Pureed Activities you can perform: Regular-No Restrictions Activities to Avoid: Driving Follow up Referrals: PCP Follow-up - 2-3 Days New Orders: BASIC METABOLIC PROF - 2-3 Days PT/INR - 2-3 Days New Medications: Albuterol/Ipratropium (Resp: Albuterol/Ipratropium 2.5 Mg/0.5 Mg) 1 Amp Nebu 1 AMPULE NEB QID NEB Dyspnea Days 30 ML Carvedilol 12.5 mg (Coreg 12.5 mg) 12.5 Mg Tab 25 MG PO BID hypertension Days 31 TAB Clindamycin Hcl (Cleocin) 150 Mg Cap 150 MG PO Q6HR dc date 11/07/15 Infection Days 4 CAP Enalapril Maleate (Vasotec 5 Mg Tab) 5 Mg Tab 5 MG PO BID Blood Pressure Management Days 30 TAB Haloperidol (Haldol) 2 Mg Tab 2 MG PO TID Control Mood Swing Days 30 TAB Sennosides-Docusate Sodium (Haydee-Colace 8.6-50 mg) 1 Tab Tab 2 TAB PO BID Prevent Constipation Days 30 TAB Warfarin Sod (Coumadin) 4 Mg Tab 4 MG PO DAILY@16 Prevent Blood Clot Days 30 TAB Continued Medications: Atorvastatin (Lipitor 80 Mg Tab) 80 Mg Tab 80 MG PO DAILY hlp Days 31 TAB Furosemide (Lasix 20 Mg Tab) 20 Mg Tab 20 MG PO BID@09,18 chf Days 31 TAB Isosorbide Mononitrate (Imdur 60 Mg) 60 Mg Tabcr 60 MG PO DAILY@07 heart Days 30 TAB.SR Lactobacillus Acidophilus (Lactinex) 1 Tab Tab 1 TAB PO BID probiotics Days 31 TAB (This prescription has been renewed) Magnesium Oxide (Mag-Ox 400 Mg Tab) 400 Mg Tab 400 MG PO Q12HR Electrolyte Replacement Days 30 TAB Potassium Chloride (Kcl 20 Meq Tab) 20 Meq Tabcr 20 MEQ PO BID Electrolyte Replacement Days 30 TAB.SR Discontinued Medications: Aspirin (Ecotrin) 81 Mg Tabec 81 MG PO DAILY Prevent Blood Clot Days 30 TAB.EC Carvedilol 6.25 mg (Coreg 6.25 mg) 6.25 Mg Tab 12.5 MG PO Q12HR heart Days 30 TAB Enalapril Maleate (Vasotec 5 Mg Tab) 5 Mg Tab 2.5 MG PO BID Prevent Heart Failure Days 30 TAB Insulin Detemir (Levemir) Inj 10 UNITS SQ HS dm2 Days 31 INJECTION Claudio Moon MD Nov 04, 2015 15:32 Claudio Moon MD Nov 04, 2015 15:32
[2015-11-04] MEDS: WARFARIN SOD 4 MG TAB PO SCH (16:15)
[2015-11-05] VITALS (7 sets, daily range): BP systolic 144–175; BP diastolic 88–99; PULSE 68–76; RESP 18–20; TEMP 96.4–98.4; O2SAT 92–99
[2015-11-05] MEDS: CLINDAMYCIN 150 MG CAP PO SCH ×5 (00:17→23:51)
[2015-11-05] MEDS: RESP: ALBUTEROL 0.63 MG/3 ML NEB (SCH) NEB ×4 (03:58→21:29)
[2015-11-05] MEDS: ISOSORBIDE MONONITRATE 60 MG TAB PO SCH (05:50)
[2015-11-05] MEDS: INSULIN ASPART SUPPLEMENTAL SCALE SQ SCH ×4 (05:51→21:08)
[2015-11-05 08:13] LABS: INTERNATIONAL NORMALIZED RATIO 2.3 RATIO; PROTHROMBIN TIME - PATIENT 25.4 SEC (9.8-11.4)
[2015-11-05] MEDS: SODIUM CHLORIDE 0.9% FLUSH 5 ML FLUSH FLUSH SCH ×2 (09:00→21:00)
[2015-11-05] MEDS: ENALAPRIL MALEATE 5 MG TAB PO SCH ×2 (09:06→21:05)
[2015-11-05] MEDS: LACTULOSE SYRUP 20 GM/30 ML CUP PO SCH (09:06)
[2015-11-05] MEDS: ATORVASTATIN 80 MG TAB PO SCH (09:06)
[2015-11-05] MEDS: CARVEDILOL 12.5 MG TAB PO SCH ×2 (09:06→21:05)
[2015-11-05] MEDS: POLYETHYLENE GLYCOL 17 GM PKG PO SCH (09:06)
[2015-11-05] MEDS: DOCUSATE SODIUM 50 MG/SENNA 8.6 MG TAB PO SCH ×2 (09:07→21:00)
[2015-11-05] MEDS: HALOPERIDOL 2 MG TAB PO SCH ×3 (09:07→17:01)
[2015-11-05] MEDS: NYSTATIN 100,000 U/GM PWD 15 GM BTL TOPICAL SCH (09:07)
--- NOTE | 2015-11-05 10:30 | HHI.PR ---
Subjective Remarks Follow-up hypertension. BP elevated denies headache or dizziness. He is calm and participated with physical therapy states he is at baseline. Refuses to wear telemetry. Discussed with RN in dependency case manager Objective Vitals Vital Signs Date Time Temp Pulse Resp B/P Pulse Ox O2 Delivery O2 Flow Rate FiO2 11/05/15 08:00 98.4 75 20 164/94 95 11/05/15 07:34 98 Nasal Cannula 2.00 11/05/15 04:00 97.5 72 20 175/99 99 11/05/15 00:00 97.7 68 18 144/88 92 11/04/15 21:26 97 Nasal Cannula 2.00 11/04/15 20:00 97.3 70 20 155/93 91 11/04/15 16:00 96.0 72 16 169/93 96 11/04/15 13:43 97.0 71 18 118/69 93 I/O 11/04/15 11/04/15 11/04/15 11/05/15 11/05/15 11/05/15 07:00 15:00 23:00 07:00 15:00 23:00 Intake Total 720 ml 200 ml 50 ml Balance 720 ml 200 ml 50 ml Intake Oral 720 ml 200 ml 50 ml # Voids 3 1 2 1 # Bowel Movements 0 1 1 Result Diagram: 11/02/15 0628 11/03/15 0757 Objective Remarks GENERAL: Well-nourished, well-developed patient in no apparent distress on 2 L nasal cannula. SKIN: Warm and dry. HEAD: Atraumatic. Normocephalic. EYES: Pupils equal and round. No scleral icterus. No injection or drainage. ENT: No nasal bleeding or discharge. Mucous membranes pink and moist. NECK: Trachea midline. No JVD. CARDIOVASCULAR: Regular rate and rhythm. RESPIRATORY: No accessory muscle use. Decreased Breath sounds equal bilaterally. GASTROINTESTINAL: Abdomen soft, non-tender, nondistended. MUSCULOSKELETAL: Extremities without clubbing, cyanosis, or edema. Right BKA. Left leg with healing wound. No drainage NEUROLOGICAL: Awake and oriented to person and place following commands. No obvious cranial nerve deficits. Motor grossly within normal limits. Five out of 5 muscle strength in the arms and legs. Normal speech. Procedures None A/P Problem List: (1) Cellulitis Status: Resolved (2) Ischemic cardiomyopathy Status: Chronic (3) Diabetes mellitus type 2 in obese Status: Chronic (4) S/P BKA (below knee amputation) unilateral Status: Chronic (5) Acute metabolic encephalopathy Status: Acute (6) Bacteremia Status: Resolved (7) Chronic systolic (congestive) heart failure Status: Chronic (8) Venous stasis ulcer of left lower extremity Status: Chronic (9) Shortness of breath Status: Chronic (10) CVA (cerebral vascular accident) Status: Acute Assessment and Plan 60-year-old male with Sepsis. Leukocytosis improved. Repeat chest x-ray with no acute findings. Repeat urinalysis negative. Continue clindamycin switched to po for aspiration until November 06 Cellulitis of the left lower ext. with staph coag neg bacteremia in 4/4 tubes. Staph haemolyticus in aerobic tubes, with different sensitivities, contaminant likely. - Chronic venous stasis ulcers on the left lower ext. Clinically improved- cellulitis resolved. - wound cultures - MSSA, Serratia marcescens - Dr. Messina/TISHA ff; On Keflex and Cipro for 10 days (vancomycin DCed) and completed 10/26. Bilateral CVA:MRI showed acute cortical infarct. MRA of head and neck unremarkable. Neurology following. S/p ASA and Plavix. Continue with Statin, Coumadin and monitor INR/PT keep INR between 2 and 3. Acute metabolic encephalopathy - baseline neuro status unknown but there is suspicion of chronic cognitive impairment/dementia. -CT head was unremarkable for any acute findings. -Mildly elevated NH3 level. Continue lactulose. Liver sonogram with gallstone and sludge -Consulted psychiatry who started Haldol and discontinued Geodon. Improving behavior discontinued restraints since 11/03/15 Mild elevation of troponin without upward trend in the setting of CKD - No chest pain. Likely due to CKD. CKD stage 4 likely diabetic and from diuretics. Improving better than baseline. Avoid nephrotoxins. Repeat BMP in the morning Hypernatremia -stable Metabolic acidosis due to CKD ; resolved Cardiomyopathy/chronic systolic CHF LVEF 35% on echo 03/2015 - currently no exacerbation. Ct Coreg 25mg BID and enalapril. Lasix IV as needed. Cardiology following to consider AICD Hypertension. Not well controlled. Increase enalapril to 5 mg twice a day. Diabetes mellitus A1c 7.5- cont long acting insulin Levemir 10 units sq HS, Novolog low SSI. Accu check controlled. PAD -stable on NovoLog Physical deconditioning: PT following. Out of bed to chair 3 times a day. Fall precautions DVT prophylaxis with Coumadin Discharge Planning Stable for dc to SNF pending insurance authorization Problem Qualifiers (1) Cellulitis: Claudio Moon MD Nov 05, 2015 10:30
[2015-11-05] MEDS ORDERED: ENAL5 PO (10:33)
[2015-11-05] MEDS: WARFARIN SOD 4 MG TAB PO SCH (16:57)
[2015-11-06] VITALS (8 sets, daily range): BP systolic 135–196; BP diastolic 86–120; PULSE 68–80; RESP 18–22; TEMP 95.7–97.6; O2SAT 92–99
[2015-11-06] MEDS: RESP: ALBUTEROL 0.63 MG/3 ML NEB (SCH) NEB ×4 (03:44→21:28)
[2015-11-06] MEDS: INSULIN ASPART SUPPLEMENTAL SCALE SQ SCH ×4 (05:52→21:00)
[2015-11-06] MEDS: ISOSORBIDE MONONITRATE 60 MG TAB PO SCH (05:52)
[2015-11-06] MEDS: CLINDAMYCIN 150 MG CAP PO SCH ×4 (05:52→23:44)
[2015-11-06 07:43] LABS: INTERNATIONAL NORMALIZED RATIO 2.2 RATIO; PROTHROMBIN TIME - PATIENT 23.9 SEC (9.8-11.4)
[2015-11-06 08:00] LABS: BICARBONATE 31.7 MEQ/L (21.0-32.0); MAGNESIUM 1.7 MG/DL (1.5-2.5); POTASSIUM 3.8 MEQ/L (3.5-5.1)
[2015-11-06] MEDS: ATORVASTATIN 80 MG TAB PO SCH (08:26)
[2015-11-06] MEDS: CARVEDILOL 12.5 MG TAB PO SCH ×2 (08:26→21:40)
[2015-11-06] MEDS: ENALAPRIL MALEATE 5 MG TAB PO SCH ×2 (08:26→21:40)
[2015-11-06] MEDS: HALOPERIDOL 2 MG TAB PO SCH ×3 (08:26→17:23)
[2015-11-06] MEDS: DOCUSATE SODIUM 50 MG/SENNA 8.6 MG TAB PO SCH ×2 (08:26→21:40)
[2015-11-06] MEDS: LACTULOSE SYRUP 20 GM/30 ML CUP PO SCH (08:27)
[2015-11-06] MEDS: SODIUM CHLORIDE 0.9% FLUSH 5 ML FLUSH FLUSH SCH ×2 (08:27→21:00)
[2015-11-06] MEDS: POLYETHYLENE GLYCOL 17 GM PKG PO SCH (08:27)
[2015-11-06] MEDS: NYSTATIN 100,000 U/GM PWD 15 GM BTL TOPICAL SCH (08:27)
--- NOTE | 2015-11-06 11:10 | HHI.PR ---
Subjective Remarks Seen for heart failure. Complains of shortness of breath denies chest pain, fever, chills and nausea. Discussed with RN, on 2 L nasal cannula Objective Vitals Vital Signs Date Time Temp Pulse Resp B/P Pulse Ox O2 Delivery O2 Flow Rate FiO2 11/06/15 08:01 96 Nasal Cannula 2.00 11/06/15 08:00 96.9 80 20 152/87 99 11/06/15 04:00 97.3 69 18 159/88 97 11/06/15 00:00 97.6 68 20 161/98 97 11/05/15 21:31 98 Nasal Cannula 2.00 11/05/15 20:00 96.4 76 20 158/90 96 11/05/15 12:00 97.1 68 20 149/90 92 I/O 11/05/15 11/05/15 11/05/15 11/06/15 11/06/15 11/06/15 07:00 15:00 23:00 07:00 15:00 23:00 Intake Total 50 ml 360 ml 200 ml Balance 50 ml 360 ml 200 ml Intake Oral 50 ml 360 ml 200 ml # Voids 1 3 2 # Bowel Movements 1 2 Result Diagram: 11/02/15 0628 11/06/15 0537 Objective Remarks GENERAL: Well-nourished, well-developed patient in no apparent distress on 2 L nasal cannula. SKIN: Warm and dry. HEAD: Atraumatic. Normocephalic. EYES: Pupils equal and round. No scleral icterus. No injection or drainage. ENT: No nasal bleeding or discharge. Mucous membranes pink and moist. NECK: Trachea midline. No JVD. CARDIOVASCULAR: Regular rate and rhythm. RESPIRATORY: No accessory muscle use. Decreased Breath sounds equal bilaterally. GASTROINTESTINAL: Abdomen soft, non-tender, nondistended. MUSCULOSKELETAL: Extremities without clubbing, cyanosis, or edema. Right BKA. Left leg with healing wound. No drainage NEUROLOGICAL: Awake and oriented to person and place. No obvious cranial nerve deficits. Motor grossly within normal limits. Five out of 5 muscle strength in the arms and legs. Normal speech. Procedures None A/P Problem List: (1) Cellulitis Status: Resolved (2) Ischemic cardiomyopathy Status: Chronic (3) Diabetes mellitus type 2 in obese Status: Chronic (4) S/P BKA (below knee amputation) unilateral Status: Chronic (5) Acute metabolic encephalopathy Status: Acute (6) Bacteremia Status: Resolved (7) Chronic systolic (congestive) heart failure Status: Chronic (8) Venous stasis ulcer of left lower extremity Status: Chronic (9) Shortness of breath Status: Chronic (10) CVA (cerebral vascular accident) Status: Acute Assessment and Plan 60-year-old male with Sepsis. Leukocytosis improved. Repeat chest x-ray with no acute findings. Repeat urinalysis negative. Continue clindamycin switched to po for aspiration until November 06 Cellulitis of the left lower ext. with staph coag neg bacteremia in 4/4 tubes. Staph haemolyticus in aerobic tubes, with different sensitivities, contaminant likely. - Chronic venous stasis ulcers on the left lower ext. Clinically improved- cellulitis resolved. - wound cultures - MSSA, Serratia marcescens - Dr. Messina/ID ff; On Keflex and Cipro for 10 days (vancomycin DCed) and completed 10/26. Bilateral CVA:MRI showed acute cortical infarct. MRA of head and neck unremarkable. Neurology following. S/p ASA and Plavix. Continue with Statin, Coumadin and monitor INR/PT keep INR between 2 and 3. Acute metabolic encephalopathy - baseline neuro status unknown but there is suspicion of chronic cognitive impairment/dementia. -CT head was unremarkable for any acute findings. -Mildly elevated NH3 level. Continue lactulose. Liver sonogram with gallstone and sludge -Consulted psychiatry who started Haldol and discontinued Geodon. Improving behavior discontinued restraints since 11/03/15 Mild elevation of troponin without upward trend in the setting of CKD - No chest pain. Likely due to CKD. CKD stage 4 likely diabetic and from diuretics. Improving better than baseline creatinine 1.27. Avoid nephrotoxins. Monitor BMP Hypernatremia -stable Metabolic acidosis due to CKD ; resolved Cardiomyopathy/chronic systolic CHF LVEF 35% on echo 03/2015. Complaining of shortness of breath on 2 L nasal cannula. Check chest x-ray. Ct Coreg 25mg BID and enalapril. Lasix IV as needed. Cardiology following to consider AICD Hypertension. Improving after increasing enalapril to 5 mg twice a day. Diabetes mellitus A1c 7.5- cont long acting insulin Levemir 10 units sq HS, Novolog low SSI. Accu check controlled. PAD -stable on NovoLog Physical deconditioning: PT following. Out of bed to chair 3 times a day. Fall precautions DVT prophylaxis with Coumadin Discharge Planning Stable for dc to SNF pending insurance authorization Problem Qualifiers (1) Cellulitis: Claudio Moon MD Nov 06, 2015 11:10
--- NOTE | 2015-11-06 12:13 | RADRPT ---
EXAM DATE/TIME: 11/06/2015 11:35 [facility] COMPARISON: CHEST SINGLE AP, October 31, 2015, 18:38. INDICATIONS : Dyspnea. Pt. c/o shortness of breath. MEDICAL HISTORY : Congestive heart failure. SURGICAL HISTORY : CABG. ENCOUNTER: Subsequent ACUITY: 3 weeks PAIN SCORE: 0/10 LOCATION: Bilateral FINDINGS: The lungs are clear.The heart is minimally enlarged. The pulmonary vascularity is normal. There is no evidence for infiltrate or failure. The portion of the bony skeleton visualized is unremarkable. CONCLUSION: Compensated cardiomegaly, history of bypass otherwise negative. Superior most sternal wire is fractured. Didier Clay MD FACR on November 06, 2015 at 12:09 Board Certified Radiologist. This report was verified electronically.
[2015-11-06] MEDS: WARFARIN SOD 4 MG TAB PO SCH (16:33)
[2015-11-06] MEDS: cloNIDine HCL 0.1 MG TAB PO PRN (21:40)
[2015-11-07] VITALS (8 sets, daily range): BP systolic 94–188; BP diastolic 67–110; PULSE 69–76; RESP 18–20; TEMP 95.6–97.6; O2SAT 94–98
[2015-11-07] MEDS: RESP: ALBUTEROL 0.63 MG/3 ML NEB (SCH) NEB ×4 (03:09→20:39)
[2015-11-07] MEDS: INSULIN ASPART SUPPLEMENTAL SCALE SQ SCH ×4 (05:58→21:00)
[2015-11-07] MEDS: ISOSORBIDE MONONITRATE 60 MG TAB PO SCH (05:58)
[2015-11-07] MEDS: CLINDAMYCIN 150 MG CAP PO SCH ×2 (05:58→12:51)
[2015-11-07] MEDS: cloNIDine HCL 0.1 MG TAB PO PRN (06:04)
[2015-11-07] MEDS: LACTULOSE SYRUP 20 GM/30 ML CUP PO SCH (08:06)
[2015-11-07] MEDS: ENALAPRIL MALEATE 5 MG TAB PO SCH ×2 (08:06→21:04)
[2015-11-07] MEDS: ATORVASTATIN 80 MG TAB PO SCH (08:06)
[2015-11-07] MEDS: HALOPERIDOL 2 MG TAB PO SCH ×3 (08:07→17:11)
[2015-11-07] MEDS: POLYETHYLENE GLYCOL 17 GM PKG PO SCH (08:07)
[2015-11-07] MEDS: NYSTATIN 100,000 U/GM PWD 15 GM BTL TOPICAL SCH (08:07)
[2015-11-07] MEDS: CARVEDILOL 12.5 MG TAB PO SCH ×2 (08:07→21:04)
[2015-11-07] MEDS: SODIUM CHLORIDE 0.9% FLUSH 5 ML FLUSH FLUSH SCH ×2 (08:07→21:00)
[2015-11-07] MEDS: DOCUSATE SODIUM 50 MG/SENNA 8.6 MG TAB PO SCH ×2 (08:07→21:04)
[2015-11-07 08:13] LABS: INTERNATIONAL NORMALIZED RATIO 2.3 RATIO; PROTHROMBIN TIME - PATIENT 24.8 SEC (9.8-11.4)
--- NOTE | 2015-11-07 15:05 | HHI.PR ---
Subjective Remarks Seen for heart failure. Denies shortness of breath. Discussed with RN Objective Vitals Vital Signs Date Time Temp Pulse Resp B/P Pulse Ox O2 Delivery O2 Flow Rate FiO2 11/07/15 11:42 95.8 76 18 128/76 96 11/07/15 08:49 94 11/07/15 07:52 96.4 71 20 137/95 97 11/07/15 04:00 97.6 73 20 188/110 95 11/07/15 00:00 97.5 69 20 117/67 96 11/06/15 20:00 97.6 76 22 196/120 92 11/06/15 20:00 Nasal Cannula 2.00 11/06/15 15:49 98 Nasal Cannula 2.00 11/06/15 15:30 95.9 70 20 148/88 99 I/O 11/06/15 11/06/15 11/06/15 11/07/15 11/07/15 11/07/15 07:00 15:00 23:00 07:00 15:00 23:00 Intake Total 200 ml 360 ml 360 ml 120 ml 30 ml Balance 200 ml 360 ml 360 ml 120 ml 30 ml Intake Oral 200 ml 360 ml 360 ml 120 ml 30 ml IV Total 0 ml # Voids 2 2 2 2 2 # Bowel Movements 0 1 Result Diagram: 11/06/15 0537 Objective Remarks GENERAL: Well-nourished, well-developed patient in no apparent distress on room air SKIN: Warm and dry. HEAD: Atraumatic. Normocephalic. EYES: Pupils equal and round. No scleral icterus. No injection or drainage. ENT: No nasal bleeding or discharge. Mucous membranes pink and moist. NECK: Trachea midline. No JVD. CARDIOVASCULAR: Regular rate and rhythm. RESPIRATORY: No accessory muscle use. Decreased Breath sounds equal bilaterally. GASTROINTESTINAL: Abdomen soft, non-tender, nondistended. MUSCULOSKELETAL: Extremities without clubbing, cyanosis, or edema. Right BKA. Left leg with healing wound. No drainage NEUROLOGICAL: Awake and oriented to person and place. No obvious cranial nerve deficits. Motor grossly within normal limits. Five out of 5 muscle strength in the arms and legs. Normal speech. Procedures None A/P Problem List: (1) Cellulitis Status: Resolved (2) Ischemic cardiomyopathy Status: Chronic (3) Diabetes mellitus type 2 in obese Status: Chronic (4) S/P BKA (below knee amputation) unilateral Status: Chronic (5) Acute metabolic encephalopathy Status: Acute (6) Bacteremia Status: Resolved (7) Chronic systolic (congestive) heart failure Status: Chronic (8) Venous stasis ulcer of left lower extremity Status: Chronic (9) Shortness of breath Status: Chronic (10) CVA (cerebral vascular accident) Status: Acute Assessment and Plan 60-year-old male with Sepsis. Leukocytosis improved. Repeat chest x-ray with no acute findings. Repeat urinalysis negative. Continue clindamycin switched to po for aspiration until November 06 today Cellulitis of the left lower ext. with staph coag neg bacteremia in 4/4 tubes. Staph haemolyticus in aerobic tubes, with different sensitivities, contaminant likely. - Chronic venous stasis ulcers on the left lower ext. Clinically improved- cellulitis resolved. - wound cultures - MSSA, Serratia marcescens - Dr. Messina/ID ff; On Keflex and Cipro for 10 days (vancomycin DCed) and completed 10/26. Bilateral CVA:MRI showed acute cortical infarct. MRA of head and neck unremarkable. Neurology following. S/p ASA and Plavix. Continue with Statin, Coumadin and monitor INR/PT keep INR between 2 and 3. Acute metabolic encephalopathy - baseline neuro status unknown but there is suspicion of chronic cognitive impairment/dementia. -CT head was unremarkable for any acute findings. -Mildly elevated NH3 level. Continue lactulose. Liver sonogram with gallstone and sludge -Consulted psychiatry who started Haldol and discontinued Geodon. Improving behavior discontinued restraints since 11/03/15 Mild elevation of troponin without upward trend in the setting of CKD - No chest pain. Likely due to CKD. CKD stage 4 likely diabetic and from diuretics. Improving better than baseline creatinine 1.27. Avoid nephrotoxins. Monitor BMP Hypernatremia -stable Metabolic acidosis due to CKD ; resolved Cardiomyopathy/chronic systolic CHF LVEF 35% on echo 03/2015. Denies shortness of breath. Compensated. Ct Coreg 25mg BID and enalapril. Lasix IV as needed. Cardiology following to consider AICD Hypertension. Improving after increasing enalapril to 5 mg twice a day. Diabetes mellitus A1c 7.5- cont long acting insulin Levemir 10 units sq HS, Novolog low SSI. Accu check controlled. PAD -stable on NovoLog Physical deconditioning: PT following. Out of bed to chair 3 times a day. Fall precautions DVT prophylaxis with Coumadin Discharge Planning Stable for dc to SNF pending insurance authorization Problem Qualifiers (1) Cellulitis: Claudio Moon MD Nov 07, 2015 15:05
[2015-11-07] MEDS: WARFARIN SOD 4 MG TAB PO SCH (17:10)
[2015-11-08] VITALS (7 sets, daily range): BP systolic 115–162; BP diastolic 66–97; PULSE 65–81; RESP 17–20; TEMP 96–98.7; O2SAT 95–100
[2015-11-08] MEDS: RESP: ALBUTEROL 0.63 MG/3 ML NEB (SCH) NEB (04:00)
[2015-11-08 05:42] LABS: INTERNATIONAL NORMALIZED RATIO 2.3 RATIO; PROTHROMBIN TIME - PATIENT 25.2 SEC (9.8-11.4)
[2015-11-08] MEDS: ISOSORBIDE MONONITRATE 60 MG TAB PO SCH (05:43)
[2015-11-08] MEDS: INSULIN ASPART SUPPLEMENTAL SCALE SQ SCH ×4 (05:43→20:52)
[2015-11-08] MEDS: CARVEDILOL 12.5 MG TAB PO SCH ×2 (07:19→20:51)
[2015-11-08] MEDS: LACTULOSE SYRUP 20 GM/30 ML CUP PO SCH (07:19)
[2015-11-08] MEDS: ENALAPRIL MALEATE 5 MG TAB PO SCH ×2 (07:19→20:51)
[2015-11-08] MEDS: HALOPERIDOL 2 MG TAB PO SCH ×3 (07:19→17:13)
[2015-11-08] MEDS: DOCUSATE SODIUM 50 MG/SENNA 8.6 MG TAB PO SCH ×2 (07:20→20:51)
[2015-11-08] MEDS: NYSTATIN 100,000 U/GM PWD 15 GM BTL TOPICAL SCH (07:20)
[2015-11-08] MEDS: ATORVASTATIN 80 MG TAB PO SCH (07:20)
[2015-11-08] MEDS: SODIUM CHLORIDE 0.9% FLUSH 5 ML FLUSH FLUSH SCH ×2 (07:24→20:51)
[2015-11-08] MEDS: POLYETHYLENE GLYCOL 17 GM PKG PO SCH (07:24)
--- NOTE | 2015-11-08 09:31 | HHI.PR ---
Subjective Remarks Seen for heart failure. States he is doing okay. Stable on nasal cannula. Discussed with RN Objective Vitals Vital Signs Date Time Temp Pulse Resp B/P Pulse Ox O2 Delivery O2 Flow Rate FiO2 11/08/15 07:52 96.4 73 17 121/73 100 11/08/15 04:42 96.4 69 19 152/83 100 11/08/15 00:24 97.2 65 20 135/82 100 11/07/15 21:01 96.1 76 19 138/86 98 11/07/15 20:40 94 21 11/07/15 20:00 Nasal Cannula 2.00 11/07/15 15:42 95.6 72 20 146/94 94 11/07/15 11:42 95.8 76 18 128/76 96 I/O 11/07/15 11/07/15 11/07/15 11/08/15 11/08/15 11/08/15 07:00 15:00 23:00 07:00 15:00 23:00 Intake Total 120 ml 30 ml 0 ml Balance 120 ml 30 ml 0 ml Intake Oral 120 ml 30 ml IV Total 0 ml 0 ml # Voids 2 2 1 1 # Bowel Movements 1 1 Result Diagram: 11/06/15 0537 Objective Remarks GENERAL: Well-nourished, well-developed patient in no apparent distress on 1 L nasal cannula SKIN: Warm and dry. HEAD: Atraumatic. Normocephalic. EYES: Pupils equal and round. No scleral icterus. No injection or drainage. ENT: No nasal bleeding or discharge. Mucous membranes pink and moist. NECK: Trachea midline. No JVD. CARDIOVASCULAR: Regular rate and rhythm. RESPIRATORY: No accessory muscle use. Decreased Breath sounds equal bilaterally. GASTROINTESTINAL: Abdomen soft, non-tender, nondistended. MUSCULOSKELETAL: Extremities without clubbing, cyanosis, or edema. Right BKA. Left leg with healing wound. No drainage NEUROLOGICAL: Awake and oriented to person and place. No obvious cranial nerve deficits. Motor grossly within normal limits. Five out of 5 muscle strength in the arms and legs. Normal speech. Procedures None A/P Problem List: (1) Cellulitis Status: Resolved (2) Ischemic cardiomyopathy Status: Chronic (3) Diabetes mellitus type 2 in obese Status: Chronic (4) S/P BKA (below knee amputation) unilateral Status: Chronic (5) Acute metabolic encephalopathy Status: Acute (6) Bacteremia Status: Resolved (7) Chronic systolic (congestive) heart failure Status: Chronic (8) Venous stasis ulcer of left lower extremity Status: Chronic (9) Shortness of breath Status: Chronic (10) CVA (cerebral vascular accident) Status: Acute Assessment and Plan 60-year-old male with Sepsis. Leukocytosis improved. Repeat chest x-ray with no acute findings. Repeat urinalysis negative. Status post clindamycin for aspiration Cellulitis of the left lower ext. with staph coag neg bacteremia in 4/4 tubes. Staph haemolyticus in aerobic tubes, with different sensitivities, contaminant likely. - Chronic venous stasis ulcers on the left lower ext. Clinically improved- cellulitis resolved. - wound cultures - MSSA, Serratia marcescens - Dr. Messina/TISHA ff; was on Keflex and Cipro for 10 days (vancomycin DCed) and completed 10/26. Bilateral CVA:MRI showed acute cortical infarct. MRA of head and neck unremarkable. Neurology following. S/p ASA and Plavix. Continue with Statin, Coumadin and monitor INR/PT keep INR between 2 and 3. INR 2.3 Acute metabolic encephalopathy - baseline neuro status unknown but there is suspicion of chronic cognitive impairment/dementia. -CT head was unremarkable for any acute findings. -Mildly elevated NH3 level. Continue lactulose. Liver sonogram with gallstone and sludge -Consulted psychiatry who started Haldol and discontinued Geodon. Improving behavior discontinued restraints since 11/03/15 Mild elevation of troponin without upward trend in the setting of CKD - No chest pain. Likely due to CKD. CKD stage 4 likely diabetic and from diuretics. Improving better than baseline creatinine 1.27. Avoid nephrotoxins. Monitor BMP Hypernatremia -stable Metabolic acidosis due to CKD ; resolved Cardiomyopathy/chronic systolic CHF LVEF 35% on echo 03/2015. Denies shortness of breath. Compensated. Ct Coreg 25mg BID and enalapril. Lasix IV as needed. Cardiology following to consider AICD Hypertension. Improving after increasing enalapril to 5 mg twice a day. Diabetes mellitus A1c 7.5- cont long acting insulin Levemir 10 units sq HS, Novolog low SSI. Accu check controlled. PAD -stable on NovoLog Physical deconditioning: PT following. Out of bed to chair 3 times a day. Fall precautions DVT prophylaxis with Coumadin Discharge Planning Stable for dc to SNF pending insurance authorization Problem Qualifiers (1) Cellulitis: Claudio Moon MD Nov 08, 2015 09:31
[2015-11-08] MEDS: WARFARIN SOD 4 MG TAB PO SCH (16:21)
[2015-11-09] VITALS (8 sets, daily range): BP systolic 122–164; BP diastolic 70–98; PULSE 74–78; RESP 18–22; TEMP 96.5–98.6; O2SAT 95–98
[2015-11-09] MEDS: INSULIN ASPART SUPPLEMENTAL SCALE SQ SCH ×4 (05:54→20:34)
[2015-11-09] MEDS: ISOSORBIDE MONONITRATE 60 MG TAB PO SCH (06:10)
[2015-11-09 08:26] LABS: PROTHROMBIN TIME - PATIENT 31.1 SEC (9.8-11.4)
[2015-11-09 08:27] LABS: INTERNATIONAL NORMALIZED RATIO 2.8 RATIO
[2015-11-09] MEDS: POLYETHYLENE GLYCOL 17 GM PKG PO SCH (09:00)
[2015-11-09] MEDS: SODIUM CHLORIDE 0.9% FLUSH 5 ML FLUSH FLUSH SCH ×2 (09:00→20:33)
[2015-11-09] MEDS: DOCUSATE SODIUM 50 MG/SENNA 8.6 MG TAB PO SCH ×2 (09:24→20:34)
[2015-11-09] MEDS: ATORVASTATIN 80 MG TAB PO SCH (09:25)
[2015-11-09] MEDS: CARVEDILOL 12.5 MG TAB PO SCH ×2 (09:26→20:34)
[2015-11-09] MEDS: HALOPERIDOL 2 MG TAB PO SCH ×3 (09:26→20:05)
[2015-11-09] MEDS: ENALAPRIL MALEATE 5 MG TAB PO SCH ×2 (09:26→20:34)
[2015-11-09] MEDS: LACTULOSE SYRUP 20 GM/30 ML CUP PO SCH (09:27)
[2015-11-09] MEDS: NYSTATIN 100,000 U/GM PWD 15 GM BTL TOPICAL SCH (09:28)
--- NOTE | 2015-11-09 20:31 | HHI.PR ---
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 Plan will require halfway anticoagulation Diagnosis/Plan: Subjective Subjective Comments No acute events reported Active Medications Current Medications Medications (Trade) Dose Ordered Sig/Estuardo Route Start Time Stop Time Status Last Admin (NS Flush) 2 ml UNSCH PRN FLUSH 10/15/15 23:30 (NS Flush) 2 ml BID FLUSH 10/16/15 09:00 11/03/15 08:43 (Zofran Inj) 4 mg Q6H PRN IVP 10/15/15 23:30 (Dulcolax Supp) 10 mg DAILY PRN [place] 10/15/15 23:30 11/04/15 13:56 (Narcan Inj) 0.4 mg UNSCH PRN IV 10/15/15 23:30 (Lipitor) 80 mg DAILY PO 10/16/15 09:00 11/09/15 09:25 (Levemir Inj) 10 units HS SQ 10/16/15 21:00 Hold 11/02/15 22:20 (Imdur) 60 mg DAILY@07 PO 10/16/15 07:00 11/09/15 06:10 (D50w (Vial) Inj) 25 ml UNSCH PRN IV 10/17/15 08:15 (Glucagon Inj) 1 mg UNSCH PRN IM/SQ 10/17/15 08:15 (Coreg) 25 mg BID PO 10/24/15 21:00 11/09/15 09:26 Phenol 2 spray 2 spray Q2H PRN MT 10/29/15 12:00 (Coumadin Consult Pharmacy) 0 ml @ 0 mls/hr UNSCH XX 10/30/15 05:30 (Tylenol) 650 mg Q4H PRN PO 10/30/15 05:30 (Colace) 100 mg BID PRN PO 10/30/15 05:30 11/02/15 22:19 (Tums Chew) 1,000 mg TID PRN CHEW 10/30/15 05:30 (Catapres) 0.1 mg Q6H PRN PO 10/30/15 05:30 11/07/15 06:04 (Haldol) 2 mg TID PO 10/31/15 18:00 11/09/15 20:05 (Mycostatin Powder) 1 applic DAILY TOPICAL 10/31/15 18:00 11/09/15 09:28 (Haydee-Colace) 2 tab BID PO 11/03/15 09:00 11/09/15 09:24 (Lactulose Liq) 30 ml TID PRN PO 11/03/15 05:45 (Coumadin) 4 mg DAILY@16 PO 11/04/15 16:00 Hold 11/08/15 16:21 (Lactulose Liq) 30 ml DAILY PO 11/04/15 09:00 11/09/15 09:27 (Miralax) 17 gm DAILY PO 11/04/15 09:00 11/07/15 08:07 (Vasotec) 5 mg BID PO 11/05/15 09:00 11/09/15 09:26 Allergies Allergies Coded Allergies Pen-Vee K (Verified Allergy, Severe, THROAT SWELLS, 10/15/15) Penicillin (Verified Allergy, Unknown, SWELLING, 10/15/15) Uncoded Allergies aspartame ( Adverse Reaction, Severe, severe nose bleed, 10/24/13) Exam I&O / VS 11/08/15 11/08/15 11/09/15 15:00 23:00 07:00 Intake Total 120 ml Balance 120 ml Intake Oral 120 ml # Voids 3 3 # Bowel Movements 1 0 0 Vital Signs Date Time Temp Pulse Resp B/P Pulse Ox O2 Delivery O2 Flow Rate FiO2 11/09/15 19:30 Nasal Cannula 2.00 11/09/15 19:11 98 Nasal Cannula 2.00 11/09/15 16:35 98.5 74 18 133/88 98 11/09/15 12:20 96.5 74 18 122/70 98 11/09/15 09:20 Nasal Cannula 2.00 11/09/15 09:19 98 Nasal Cannula 2.00 11/09/15 08:30 97.4 75 18 131/75 97 11/09/15 04:30 98.6 77 18 164/98 95 11/09/15 00:17 98.4 74 18 156/91 98 Exam Comments alert, speech is normal, follows commands PERRL. EOM--intact no facial asymetry motor --no gross focal deficits Objective Micro and Labs Laboratory Tests Test 11/09/15 07:17 Prothrombin Time 31.1 Prothromb Time International 2.8 Ratio Sameer,Balbir A. PhD Nov 09, 2015 20:31
--- NOTE | 2015-11-09 21:05 | HHI.PR ---
Subjective Remarks Patient seen this morning. No acute complaints. Discussed with nursing. Objective Vital Signs Date Time Temp Pulse Resp B/P Pulse Ox O2 Delivery O2 Flow Rate FiO2 11/09/15 19:30 Nasal Cannula 2.00 11/09/15 19:11 98 Nasal Cannula 2.00 11/09/15 16:35 98.5 74 18 133/88 98 11/09/15 12:20 96.5 74 18 122/70 98 11/09/15 09:20 Nasal Cannula 2.00 11/09/15 09:19 98 Nasal Cannula 2.00 11/09/15 08:30 97.4 75 18 131/75 97 11/09/15 04:30 98.6 77 18 164/98 95 11/09/15 00:17 98.4 74 18 156/91 98 I/O 11/08/15 11/08/15 11/08/15 11/09/15 11/09/15 11/09/15 07:00 15:00 23:00 07:00 15:00 23:00 Intake Total 0 ml 120 ml 240 ml Output Total 200 ml Balance 0 ml 120 ml 40 ml Intake Oral 120 ml 240 ml IV Total 0 ml Output Urine Total 200 ml # Voids 1 3 3 # Bowel Movements 1 0 0 1 Result Diagram: 11/06/15 0537 A/P Assessment and Plan 60-year-old male with //Sepsis. resolved. -Leukocytosis improved. Repeat chest x-ray with no acute findings. Repeat urinalysis negative. Status post clindamycin for aspiration //Cellulitis of the left lower ext. resolved. with staph coag neg bacteremia in 4/4 tubes. Staph haemolyticus in aerobic tubes , with different sensitivities, contaminant likely. - Chronic venous stasis ulcers on the left lower ext. Clinically improved- cellulitis resolved. - wound cultures - MSSA, Serratia marcescens - Dr. Messina/ID ff; was on Keflex and Cipro for 10 days (vancomycin DCed) and completed 10/26. //Bilateral CVA:MRI showed acute cortical infarct. MRA of head and neck unremarkable. Neurology following. S/p ASA and Plavix. Continue with Statin, Coumadin and monitor INR/PT keep INR between 2 and 3. //Acute metabolic encephalopathy - baseline neuro status unknown but there is suspicion of chronic cognitive impairment/dementia. -CT head was unremarkable for any acute findings. -Mildly elevated NH3 level. Continue lactulose. Liver sonogram with gallstone and sludge -Consulted psychiatry who started Haldol and discontinued Geodon. Improving behavior discontinued restraints since 11/03/15 //Mild elevation of troponin without upward trend in the setting of CKD - No chest pain. Likely due to CKD. //CKD stage 4 likely diabetic and from diuretics. Improving better than baseline creatinine 1.27. Avoid nephrotoxins. Monitor BMP //Hypernatremia -stable //Metabolic acidosis due to CKD ; resolved //Cardiomyopathy/chronic systolic CHF LVEF 35% on echo 03/2015. Denies shortness of breath. Compensated. Ct Coreg 25mg BID and enalapril. Lasix IV as needed. -Cardiology following to consider AICD when patient is able to consent. Currently unable to consent. //Hypertension. Improving after increasing enalapril to 5 mg twice a day. //Diabetes mellitus A1c 7.5- cont long acting insulin Levemir 10 units sq HS, Novolog low SSI. Accu check controlled. //PAD -stable on NovoLog //Physical deconditioning: PT following. Out of bed to chair 3 times a day. Fall precautions //DVT prophylaxis with Coumadin Discharge Planning snf pending insurance approval. Appreciate case management assistance. Pastor Lu MD Nov 09, 2015 21:05
[2015-11-10 01:02] VITALS: BP 146/90; PULSE 71; RESP 16; TEMP 96.4; O2SAT 97
[2015-11-10] MEDS: ISOSORBIDE MONONITRATE 60 MG TAB PO SCH (06:12)
[2015-11-10] MEDS: INSULIN ASPART SUPPLEMENTAL SCALE SQ SCH ×4 (06:12→21:00)
[2015-11-10 06:25] VITALS: BP 156/92; PULSE 73; RESP 18; TEMP 95.7; O2SAT 97
[2015-11-10 08:12] VITALS: BP 152/91; PULSE 75; RESP 18; TEMP 96.2; O2SAT 98
[2015-11-10 08:30] LABS: INTERNATIONAL NORMALIZED RATIO 2.2 RATIO; PROTHROMBIN TIME - PATIENT 23.5 SEC (9.8-11.4)
[2015-11-10] MEDS: ATORVASTATIN 80 MG TAB PO SCH (08:34)
[2015-11-10] MEDS: DOCUSATE SODIUM 50 MG/SENNA 8.6 MG TAB PO SCH ×2 (08:34→21:14)
[2015-11-10] MEDS: ENALAPRIL MALEATE 5 MG TAB PO SCH ×2 (08:34→21:15)
[2015-11-10] MEDS: CARVEDILOL 12.5 MG TAB PO SCH ×2 (08:34→21:15)
[2015-11-10] MEDS: HALOPERIDOL 2 MG TAB PO SCH ×3 (08:34→18:20)
[2015-11-10] MEDS: LACTULOSE SYRUP 20 GM/30 ML CUP PO SCH (08:34)
[2015-11-10] MEDS: SODIUM CHLORIDE 0.9% FLUSH 5 ML FLUSH FLUSH SCH ×2 (08:35→21:00)
[2015-11-10] MEDS: POLYETHYLENE GLYCOL 17 GM PKG PO SCH (08:35)
[2015-11-10 11:50] VITALS: BP 132/77; PULSE 77; RESP 18; TEMP 95.5; O2SAT 93
[2015-11-10] MEDS: NYSTATIN 100,000 U/GM PWD 15 GM BTL TOPICAL SCH (13:11)
[2015-11-10 16:13] VITALS: BP 132/83; PULSE 69; RESP 17; TEMP 96.2; O2SAT 97
[2015-11-10] MEDS: WARFARIN SOD 3 MG TAB PO SCH (18:19)
[2015-11-10 20:00] VITALS: BP 146/91; PULSE 78; RESP 20; TEMP 96.6; O2SAT 96
--- NOTE | 2015-11-10 22:19 | HHI.PR ---
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 Plan will require snf anticoagulation Diagnosis/Plan: Subjective Subjective Comments No acute events reported Active Medications Current Medications Medications (Trade) Dose Ordered Sig/Estuardo Route Start Time Stop Time Status Last Admin (NS Flush) 2 ml UNSCH PRN FLUSH 10/15/15 23:30 (NS Flush) 2 ml BID FLUSH 10/16/15 09:00 11/03/15 08:43 (Zofran Inj) 4 mg Q6H PRN IVP 10/15/15 23:30 (Dulcolax Supp) 10 mg DAILY PRN [place] 10/15/15 23:30 11/04/15 13:56 (Narcan Inj) 0.4 mg UNSCH PRN IV 10/15/15 23:30 (Lipitor) 80 mg DAILY PO 10/16/15 09:00 11/10/15 08:34 (Levemir Inj) 10 units HS SQ 10/16/15 21:00 Hold 11/02/15 22:20 (Imdur) 60 mg DAILY@07 PO 10/16/15 07:00 11/10/15 06:12 (D50w (Vial) Inj) 25 ml UNSCH PRN IV 10/17/15 08:15 (Glucagon Inj) 1 mg UNSCH PRN IM/SQ 10/17/15 08:15 (Coreg) 25 mg BID PO 10/24/15 21:00 11/10/15 21:15 Phenol 2 spray 2 spray Q2H PRN MT 10/29/15 12:00 (Coumadin Consult Pharmacy) 0 ml @ 0 mls/hr UNSCH XX 10/30/15 05:30 (Tylenol) 650 mg Q4H PRN PO 10/30/15 05:30 (Colace) 100 mg BID PRN PO 10/30/15 05:30 11/02/15 22:19 (Tums Chew) 1,000 mg TID PRN CHEW 10/30/15 05:30 (Catapres) 0.1 mg Q6H PRN PO 10/30/15 05:30 11/07/15 06:04 (Haldol) 2 mg TID PO 10/31/15 18:00 11/10/15 18:20 (Mycostatin Powder) 1 applic DAILY TOPICAL 10/31/15 18:00 11/10/15 13:11 ([place]-Colace) 2 tab BID PO 11/03/15 09:00 11/10/15 21:14 (Lactulose Liq) 30 ml TID PRN PO 11/03/15 05:45 (Lactulose Liq) 30 ml DAILY PO 11/04/15 09:00 11/10/15 08:34 (Miralax) 17 gm DAILY PO 11/04/15 09:00 11/07/15 08:07 (Vasotec) 5 mg BID PO 11/05/15 09:00 11/10/15 21:15 (Coumadin) 3 mg DAILY@16 PO 11/10/15 16:00 11/10/15 18:19 Allergies Allergies Coded Allergies Pen-Vee K (Verified Allergy, Severe, THROAT SWELLS, 10/15/15) Penicillin (Verified Allergy, Unknown, SWELLING, 10/15/15) Uncoded Allergies aspartame ( Adverse Reaction, Severe, severe nose bleed, 10/24/13) Exam I&O / VS 11/09/15 11/09/15 11/10/15 15:00 23:00 07:00 Intake Total 240 ml Output Total 200 ml Balance 40 ml Intake Oral 240 ml Output Urine Total 200 ml # Voids 2 2 # Bowel Movements 1 0 1 Vital Signs Date Time Temp Pulse Resp B/P Pulse Ox O2 Delivery O2 Flow Rate FiO2 11/10/15 19:30 Nasal Cannula 2.00 11/10/15 16:13 96.2 69 17 132/83 97 11/10/15 12:25 Nasal Cannula 2.00 11/10/15 11:50 95.5 77 18 132/77 93 11/10/15 08:45 Nasal Cannula 2.00 11/10/15 08:12 96.2 75 18 152/91 98 11/10/15 06:25 95.7 73 18 156/92 97 11/10/15 01:02 96.4 71 16 146/90 97 Exam Comments alert, speech is normal, follows commands PERRL. EOM--intact no facial asymetry motor --no gross focal deficits Objective Micro and Labs Laboratory Tests Test 11/10/15 07:59 Prothrombin Time 23.5 Prothromb Time International 2.2 Ratio Balbir Estrella PhD MD Nov 10, 2015 22:19
--- NOTE | 2015-11-10 23:43 | HHI.PR ---
Subjective Remarks patient seen this afternoon. Again, no acute complaints. No chest pain or shortness of breath. Objective Vital Signs Date Time Temp Pulse Resp B/P Pulse Ox O2 Delivery O2 Flow Rate FiO2 11/10/15 20:00 96.6 78 20 146/91 96 11/10/15 19:30 Nasal Cannula 2.00 11/10/15 16:13 96.2 69 17 132/83 97 11/10/15 12:25 Nasal Cannula 2.00 11/10/15 11:50 95.5 77 18 132/77 93 11/10/15 08:45 Nasal Cannula 2.00 11/10/15 08:12 96.2 75 18 152/91 98 11/10/15 06:25 95.7 73 18 156/92 97 11/10/15 01:02 96.4 71 16 146/90 97 I/O 11/09/15 11/09/15 11/09/15 11/10/15 11/10/15 11/10/15 07:00 15:00 23:00 07:00 15:00 23:00 Intake Total 120 ml 240 ml 360 ml Output Total 200 ml Balance 120 ml 40 ml 360 ml Intake Oral 120 ml 240 ml 360 ml Output Urine Total 200 ml # Voids 3 2 2 2 # Bowel Movements 0 1 0 1 1 Result Diagram: 11/06/15 0537 Objective Remarks GENERAL: Well-nourished, well-developed patient.patient is alert, disoriented. Appears pleasant. Trying to get out of bed. Alert and nursing for assistance. SKIN: Warm and dry. HEAD: Normocephalic. EYES: No scleral icterus. No injection or drainage. NECK: Supple, trachea midline. No JVD or lymphadenopathy. CARDIOVASCULAR: Regular rate and rhythm without murmurs, gallops, or rubs. RESPIRATORY: Breath sounds equal bilaterally. No accessory muscle use. GASTROINTESTINAL: Abdomen soft, non-tender, nondistended. MUSCULOSKELETAL: No cyanosis, or edema. BACK: Nontender without obvious deformity. No CVA tenderness. A/P Assessment and Plan 60-year-old male with //Sepsis. resolved. -Leukocytosis improved. Repeat chest x-ray with no acute findings. Repeat urinalysis negative. Status post clindamycin for aspiration //Cellulitis of the left lower ext. resolved. with staph coag neg bacteremia in 4/4 tubes. Staph haemolyticus in aerobic tubes , with different sensitivities, contaminant likely. - Chronic venous stasis ulcers on the left lower ext. Clinically improved- cellulitis resolved. - wound cultures - MSSA, Serratia marcescens - Dr. Messina/ID ff; was on Keflex and Cipro for 10 days (vancomycin DCed) and completed 10/26. //Bilateral CVA:MRI showed acute cortical infarct. MRA of head and neck unremarkable. Neurology following. S/p ASA and Plavix. Continue with Statin, Coumadin and monitor INR/PT keep INR between 2 and 3. //Acute metabolic encephalopathy - baseline neuro status unknown but there is suspicion of chronic cognitive impairment/dementia. -CT head was unremarkable for any acute findings. -Mildly elevated NH3 level. Continue lactulose. Liver sonogram with gallstone and sludge -Consulted psychiatry who started Haldol and discontinued Geodon. Improving behavior discontinued restraints since 11/03/15 //Mild elevation of troponin without upward trend in the setting of CKD - No chest pain. Likely due to CKD. //CKD stage 4 likely diabetic and from diuretics. Improving better than baseline creatinine 1.27. Avoid nephrotoxins. Monitor BMP //Hypernatremia -stable //Metabolic acidosis due to CKD ; resolved //Cardiomyopathy/chronic systolic CHF LVEF 35% on echo 03/2015. Denies shortness of breath. Compensated. Ct Coreg 25mg BID and enalapril. Lasix IV as needed. -Cardiology following to consider AICD when patient is able to consent. Currently unable to consent. //Hypertension. Improving after increasing enalapril to 5 mg twice a day. //Diabetes mellitus A1c 7.5- cont long acting insulin Levemir 10 units sq HS, Novolog low SSI. Accu check controlled. //PAD -stable on NovoLog //Physical deconditioning: PT following. Out of bed to chair 3 times a day. Fall precautions //DVT prophylaxis with Coumadin Discharge Planning snf pending insurance approval. Appreciate case management assistance. Pastor Lu MD Nov 10, 2015 23:43
[2015-11-11] VITALS (8 sets, daily range): BP systolic 123–153; BP diastolic 72–93; PULSE 75–109; RESP 18–20; TEMP 95.6–96.5; O2SAT 93–99
[2015-11-11] MEDS: ISOSORBIDE MONONITRATE 60 MG TAB PO SCH (06:04)
[2015-11-11] MEDS: INSULIN ASPART SUPPLEMENTAL SCALE SQ SCH ×4 (06:07→21:00)
[2015-11-11] MEDS: SODIUM CHLORIDE 0.9% FLUSH 5 ML FLUSH FLUSH SCH ×2 (09:00→20:17)
[2015-11-11] MEDS: NYSTATIN 100,000 U/GM PWD 15 GM BTL TOPICAL SCH (09:00)
[2015-11-11 09:25] LABS: INTERNATIONAL NORMALIZED RATIO 1.8 RATIO; PROTHROMBIN TIME - PATIENT 18.7 SEC (9.8-11.4)
[2015-11-11] MEDS: LACTULOSE SYRUP 20 GM/30 ML CUP PO SCH (11:33)
[2015-11-11] MEDS: POLYETHYLENE GLYCOL 17 GM PKG PO SCH (11:34)
[2015-11-11] MEDS: ENALAPRIL MALEATE 5 MG TAB PO SCH ×2 (11:34→20:17)
[2015-11-11] MEDS: ATORVASTATIN 80 MG TAB PO SCH (11:34)
[2015-11-11] MEDS: CARVEDILOL 12.5 MG TAB PO SCH ×2 (11:34→20:17)
[2015-11-11] MEDS: HALOPERIDOL 2 MG TAB PO SCH ×3 (11:34→17:14)
[2015-11-11] MEDS: DOCUSATE SODIUM 50 MG/SENNA 8.6 MG TAB PO SCH ×2 (11:35→20:17)
[2015-11-11] MEDS: WARFARIN SOD 3 MG TAB PO SCH (17:13)
--- NOTE | 2015-11-11 23:34 | HHI.PR ---
Subjective Remarks patient seen this morning. No events overnight. Denies any acute complaints. No chest pain or shortness of breath. Objective Vital Signs Date Time Temp Pulse Resp B/P Pulse Ox O2 Delivery O2 Flow Rate FiO2 11/11/15 22:39 95 21 11/11/15 20:00 96.3 109 20 145/93 96 11/11/15 16:09 95.9 79 20 140/88 93 11/11/15 12:12 96.5 79 18 123/72 96 11/11/15 09:30 97 21 11/11/15 08:09 95.6 78 18 130/83 98 11/11/15 07:00 Nasal Cannula 2.00 11/11/15 06:15 96.5 81 18 149/91 98 11/11/15 00:41 96.3 75 20 153/90 99 I/O 11/10/15 11/10/15 11/10/15 11/11/15 11/11/15 11/11/15 07:00 15:00 23:00 07:00 15:00 23:00 Intake Total 360 ml 480 ml Balance 360 ml 480 ml Intake Oral 360 ml 480 ml # Voids 2 2 3 4 3 # Bowel Movements 1 1 0 0 1 Objective Remarks GENERAL: Well-nourished, well-developed patient.is alert, disoriented. Appears pleasant. sitting up in bed at nursing station. HEAD: Normocephalic. EYES: No scleral icterus. No injection or drainage. NECK: Supple, trachea midline. No JVD or lymphadenopathy. CARDIOVASCULAR: Regular rate and rhythm without murmurs, gallops, or rubs. RESPIRATORY: Breath sounds equal bilaterally. No accessory muscle use. GASTROINTESTINAL: Abdomen soft, non-tender, nondistended. MUSCULOSKELETAL: No cyanosis, or edema. BACK: Nontender without obvious deformity. No CVA tenderness. A/P Assessment and Plan 60-year-old male with //Sepsis. resolved. -Leukocytosis improved. Repeat chest x-ray with no acute findings. Repeat urinalysis negative. Status post clindamycin for aspiration //Cellulitis of the left lower ext. resolved. with staph coag neg bacteremia in 4/4 tubes. Staph haemolyticus in aerobic tubes , with different sensitivities, contaminant likely. - Chronic venous stasis ulcers on the left lower ext. Clinically improved- cellulitis resolved. - wound cultures - MSSA, Serratia marcescens - Dr. Messina/ID ff; was on Keflex and Cipro for 10 days (vancomycin DCed) and completed 10/26. //Bilateral CVA:MRI showed acute cortical infarct. MRA of head and neck unremarkable. Neurology following. S/p ASA and Plavix. Continue with Statin, Coumadin and monitor INR/PT keep INR between 2 and 3. //Acute metabolic encephalopathy - baseline neuro status unknown but there is suspicion of chronic cognitive impairment/dementia. -CT head was unremarkable for any acute findings. -Mildly elevated NH3 level. Continue lactulose. Liver sonogram with gallstone and sludge -Consulted psychiatry who started Haldol and discontinued Geodon. Improving behavior discontinued restraints since 11/03/15 //Mild elevation of troponin without upward trend in the setting of CKD - No chest pain. Likely due to CKD. //CKD stage 4 likely diabetic and from diuretics. Improving better than baseline creatinine 1.27. Avoid nephrotoxins. Monitor BMP //Hypernatremia -stable //Metabolic acidosis due to CKD ; resolved //Cardiomyopathy/chronic systolic CHF LVEF 35% on echo 03/2015. Denies shortness of breath. Compensated. Ct Coreg 25mg BID and enalapril. Lasix IV as needed. -Cardiology following to consider AICD when patient is able to consent. Currently unable to consent. //Hypertension. Improving after increasing enalapril to 5 mg twice a day. //Diabetes mellitus A1c 7.5- cont long acting insulin Levemir 10 units sq HS, Novolog low SSI. Accu check controlled. //PAD -stable on NovoLog //Physical deconditioning: PT following. Out of bed to chair 3 times a day. Fall precautions //DVT prophylaxis with Coumadin Discharge Planning snf pending insurance approval. Appreciate case management assistance. Pastor Lu MD Nov 11, 2015 23:34
[2015-11-12] VITALS (7 sets, daily range): BP systolic 112–173; BP diastolic 66–92; PULSE 71–82; RESP 14–20; TEMP 96.3–98; O2SAT 92–99
[2015-11-12] MEDS: ISOSORBIDE MONONITRATE 60 MG TAB PO SCH (06:12)
[2015-11-12] MEDS: INSULIN ASPART SUPPLEMENTAL SCALE SQ SCH ×5 (06:15→21:00)
[2015-11-12 08:49] LABS: INTERNATIONAL NORMALIZED RATIO 1.5 RATIO; PROTHROMBIN TIME - PATIENT 15.3 SEC (9.8-11.4)
[2015-11-12] MEDS: NYSTATIN 100,000 U/GM PWD 15 GM BTL TOPICAL SCH (09:00)
[2015-11-12] MEDS: SODIUM CHLORIDE 0.9% FLUSH 5 ML FLUSH FLUSH SCH ×2 (09:00→21:00)
[2015-11-12] MEDS: DOCUSATE SODIUM 50 MG/SENNA 8.6 MG TAB PO SCH ×2 (09:47→21:50)
[2015-11-12] MEDS: LACTULOSE SYRUP 20 GM/30 ML CUP PO SCH (09:47)
[2015-11-12] MEDS: ENALAPRIL MALEATE 5 MG TAB PO SCH ×2 (09:48→21:50)
[2015-11-12] MEDS: CARVEDILOL 12.5 MG TAB PO SCH ×2 (09:48→21:49)
[2015-11-12] MEDS: POLYETHYLENE GLYCOL 17 GM PKG PO SCH (09:48)
[2015-11-12] MEDS: HALOPERIDOL 2 MG TAB PO SCH ×2 (09:48→13:00)
[2015-11-12] MEDS: ATORVASTATIN 80 MG TAB PO SCH (09:48)
[2015-11-12] MEDS ORDERED: WARFARIN SOD 4 MG TAB PO ONE (16:00)
--- NOTE | 2015-11-12 23:52 | HHI.PR ---
Subjective Remarks patient seen this afternoon around 1 PM. Sitting up at nursing station reading newspaper. Denies any complaints. No chest pain or shortness of breath. no issues per nursing. Objective Vital Signs Date Time Temp Pulse Resp B/P Pulse Ox O2 Delivery O2 Flow Rate FiO2 11/12/15 20:00 97.1 80 17 137/85 92 11/12/15 16:07 98.0 71 20 118/74 95 11/12/15 13:55 98 21 11/12/15 11:49 98.0 82 20 112/66 99 11/12/15 07:46 96.9 78 14 116/78 98 11/12/15 04:00 96.3 80 20 94 11/12/15 00:00 96.5 75 20 173/92 95 I/O 11/11/15 11/11/15 11/11/15 11/12/15 11/12/15 11/12/15 07:00 15:00 23:00 07:00 15:00 23:00 Intake Total 480 ml 120 ml 60 ml 625 ml Output Total 200 ml 800 ml Balance 480 ml 120 ml -140 ml -175 ml Intake Oral 480 ml 120 ml 60 ml 625 ml Output Urine Total 200 ml 800 ml # Voids 4 3 2 # Bowel Movements 0 1 0 0 0 1 Objective Remarks GENERAL: Well-nourished, well-developed patient.is alert, disoriented. Appears pleasant. sitting up in recliner at nursing station HEAD: Normocephalic. EYES: No scleral icterus. No injection or drainage. NECK: Supple, trachea midline. No JVD or lymphadenopathy. CARDIOVASCULAR: Regular rate and rhythm without murmurs, gallops, or rubs. RESPIRATORY: Breath sounds equal bilaterally. No accessory muscle use. GASTROINTESTINAL: Abdomen soft, non-tender, nondistended. MUSCULOSKELETAL: No cyanosis, or edema. BACK: Nontender without obvious deformity. No CVA tenderness. A/P Assessment and Plan 60-year-old male with //Sepsis. resolved. -Leukocytosis improved. Repeat chest x-ray with no acute findings. Repeat urinalysis negative. Status post clindamycin for aspiration //Cellulitis of the left lower ext. resolved. with staph coag neg bacteremia in 4/4 tubes. Staph haemolyticus in aerobic tubes , with different sensitivities, contaminant likely. - Chronic venous stasis ulcers on the left lower ext. Clinically improved- cellulitis resolved. - wound cultures - MSSA, Serratia marcescens - Dr. Messina/ID ff; was on Keflex and Cipro for 10 days (vancomycin DCed) and completed 10/26. //Bilateral CVA:MRI showed acute cortical infarct. MRA of head and neck unremarkable. Neurology following. S/p ASA and Plavix. Continue with Statin, Coumadin and monitor INR/PT keep INR between 2 and 3. //Acute metabolic encephalopathy - baseline neuro status unknown but there is suspicion of chronic cognitive impairment/dementia. -CT head was unremarkable for any acute findings. -Mildly elevated NH3 level. Continue lactulose. Liver sonogram with gallstone and sludge -Consulted psychiatry who started Haldol and discontinued Geodon. Improving behavior discontinued restraints since 11/03/15 //Mild elevation of troponin without upward trend in the setting of CKD - No chest pain. Likely due to CKD. //CKD stage 4 likely diabetic and from diuretics. Improving better than baseline creatinine 1.27. Avoid nephrotoxins. Monitor BMP //Hypernatremia -stable //Metabolic acidosis due to CKD ; resolved //Cardiomyopathy/chronic systolic CHF LVEF 35% on echo 03/2015. Denies shortness of breath. Compensated. Ct Coreg 25mg BID and enalapril. Lasix IV as needed. -Cardiology following to consider AICD when patient is able to consent. Currently unable to consent. //Hypertension. Improving after increasing enalapril to 5 mg twice a day. //Diabetes mellitus A1c 7.5- cont long acting insulin Levemir 10 units sq HS, Novolog low SSI. Accu check controlled. //PAD -stable on NovoLog //Physical deconditioning: PT following. Out of bed to chair 3 times a day. Fall precautions //DVT prophylaxis with Coumadin Discharge Planning snf pending insurance approval. Appreciate case management assistance. Pastor Lu MD Nov 12, 2015 23:52
[2015-11-13] VITALS: BP 126/79; PULSE 74; RESP 17; TEMP 96.9; O2SAT 96
[2015-11-13 04:00] VITALS: BP 148/75; PULSE 75; RESP 17; TEMP 96.8; O2SAT 94
[2015-11-13] MEDS: INSULIN ASPART SUPPLEMENTAL SCALE SQ SCH ×4 (06:38→21:00)
[2015-11-13] MEDS: ISOSORBIDE MONONITRATE 60 MG TAB PO SCH (06:38)
[2015-11-13 08:46] VITALS: BP 110/66; PULSE 62; RESP 14; TEMP 98.6; O2SAT 92
[2015-11-13 08:53] LABS: INTERNATIONAL NORMALIZED RATIO 1.4 RATIO; PROTHROMBIN TIME - PATIENT 14.8 SEC (9.8-11.4)
[2015-11-13] MEDS: SODIUM CHLORIDE 0.9% FLUSH 5 ML FLUSH FLUSH SCH ×2 (09:00→21:00)
[2015-11-13] MEDS: POLYETHYLENE GLYCOL 17 GM PKG PO SCH ×2 (09:00→09:07)
[2015-11-13] MEDS: DOCUSATE SODIUM 50 MG/SENNA 8.6 MG TAB PO SCH ×3 (09:00→21:28)
[2015-11-13] MEDS: LACTULOSE SYRUP 20 GM/30 ML CUP PO SCH ×2 (09:00→09:07)
[2015-11-13] MEDS: CARVEDILOL 12.5 MG TAB PO SCH ×2 (09:07→21:28)
[2015-11-13] MEDS: ATORVASTATIN 80 MG TAB PO SCH (09:07)
[2015-11-13] MEDS: HALOPERIDOL 2 MG TAB PO SCH ×4 (09:08→17:03)
[2015-11-13] MEDS: NYSTATIN 100,000 U/GM PWD 15 GM BTL TOPICAL SCH (09:08)
[2015-11-13] MEDS: ENALAPRIL MALEATE 5 MG TAB PO SCH ×2 (09:08→21:28)
[2015-11-13 12:51] VITALS: BP 93/55; PULSE 78; RESP 20; TEMP 98.9; O2SAT 94
--- NOTE | 2015-11-13 15:33 | HHI.PR ---
Subjective Remarks patient seen this afternoon around noon while sitting at nursing station. Eating lunch. Denies any chest pain or shortness of breath. Objective Vital Signs Date Time Temp Pulse Resp B/P Pulse Ox O2 Delivery O2 Flow Rate FiO2 11/13/15 12:51 98.9 78 20 93/55 94 11/13/15 09:00 Room Air 11/13/15 08:46 98.6 62 14 110/66 92 11/13/15 04:00 96.8 75 17 148/75 94 11/13/15 00:00 96.9 74 17 126/79 96 11/12/15 20:00 97.1 80 17 137/85 92 11/12/15 16:07 98.0 71 20 118/74 95 I/O 11/12/15 11/12/15 11/12/15 11/13/15 11/13/15 11/13/15 06:59 14:59 22:59 06:59 14:59 22:59 Intake Total 60 ml 625 ml 120 ml 60 ml 1200 ml Output Total 200 ml 800 ml 800 ml Balance -140 ml -175 ml 120 ml 60 ml 400 ml Intake Oral 60 ml 625 ml 120 ml 60 ml 1200 ml Output Urine Total 200 ml 800 ml 800 ml # Voids 2 2 # Bowel Movements 0 0 2 1 1 Objective Remarks GENERAL: Well-nourished, well-developed patient.is alert, disoriented. Appears pleasant. sitting up in recliner at nursing station. Eating. Exam otherwise unchanged. HEAD: Normocephalic. EYES: No scleral icterus. No injection or drainage. NECK: Supple, trachea midline. No JVD or lymphadenopathy. CARDIOVASCULAR: Regular rate and rhythm without murmurs, gallops, or rubs. RESPIRATORY: Breath sounds equal bilaterally. No accessory muscle use. GASTROINTESTINAL: Abdomen soft, non-tender, nondistended. MUSCULOSKELETAL: No cyanosis, or edema. BACK: Nontender without obvious deformity. No CVA tenderness. A/P Assessment and Plan 60-year-old male with //Sepsis. resolved. -Leukocytosis improved. Repeat chest x-ray with no acute findings. Repeat urinalysis negative. Status post clindamycin for aspiration //Cellulitis of the left lower ext. resolved. with staph coag neg bacteremia in 4/4 tubes. Staph haemolyticus in aerobic tubes , with different sensitivities, contaminant likely. - Chronic venous stasis ulcers on the left lower ext. Clinically improved- cellulitis resolved. - wound cultures - MSSA, Serratia marcescens - Dr. Messina/ID ff; was on Keflex and Cipro for 10 days (vancomycin DCed) and completed 10/26. //Bilateral CVA:MRI showed acute cortical infarct. MRA of head and neck unremarkable. Neurology following. S/p ASA and Plavix. Continue with Statin, Coumadin and monitor INR/PT keep INR between 2 and 3. //Acute metabolic encephalopathy - baseline neuro status unknown but there is suspicion of chronic cognitive impairment/dementia. -CT head was unremarkable for any acute findings. -Mildly elevated NH3 level. Continue lactulose. Liver sonogram with gallstone and sludge -Consulted psychiatry who started Haldol and discontinued Geodon. Improving behavior discontinued restraints since 11/03/15 //Mild elevation of troponin without upward trend in the setting of CKD - No chest pain. Likely due to CKD. //CKD stage 4 likely diabetic and from diuretics. Improving better than baseline creatinine 1.27. Avoid nephrotoxins. Monitor BMP //Hypernatremia -stable //Metabolic acidosis due to CKD ; resolved //Cardiomyopathy/chronic systolic CHF LVEF 35% on echo 03/2015. Denies shortness of breath. Compensated. Ct Coreg 25mg BID and enalapril. Lasix IV as needed. -Cardiology following to consider AICD when patient is able to consent. Currently unable to consent. //Hypertension. Improving after increasing enalapril to 5 mg twice a day. //Diabetes mellitus A1c 7.5- cont long acting insulin Levemir 10 units sq HS, Novolog low SSI. Accu check controlled. //PAD -stable on NovoLog //Physical deconditioning: PT following. Out of bed to chair 3 times a day. Fall precautions //DVT prophylaxis with Coumadin Discharge Planning snf pending insurance approval. Appreciate case management assistance. Pastor Lu MD Nov 13, 2015 15:33
[2015-11-13 16:00] VITALS: BP 140/78; PULSE 80; RESP 16; TEMP 97.2; O2SAT 93
[2015-11-13] MEDS: WARFARIN SOD 1 MG TAB PO SCH (16:10)
[2015-11-13] MEDS: WARFARIN SOD 2.5 MG TAB PO SCH (16:10)
[2015-11-13] MEDS ORDERED: WARFARIN SOD 1 MG TAB PO ONE (16:30)
--- NOTE | 2015-11-13 17:46 | HHI.PR ---
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 Plan will require long-term anticoagulation Diagnosis/Plan: Subjective Subjective Comments No acute events reported No headache No chest pain No dyspnea Active Medications Current Medications Medications (Trade) Dose Ordered Sig/Estuardo Route Start Time Stop Time Status Last Admin (NS Flush) 2 ml UNSCH PRN FLUSH 10/15/15 23:30 (NS Flush) 2 ml BID FLUSH 10/16/15 09:00 11/11/15 09:00 (Zofran Inj) 4 mg Q6H PRN IVP 10/15/15 23:30 (Dulcolax Supp) 10 mg DAILY PRN KS 10/15/15 23:30 11/04/15 13:56 (Narcan Inj) 0.4 mg UNSCH PRN IV 10/15/15 23:30 (Lipitor) 80 mg DAILY PO 10/16/15 09:00 11/13/15 09:07 (Levemir Inj) 10 units HS SQ 10/16/15 21:00 Hold 11/02/15 22:20 (Imdur) 60 mg DAILY@07 PO 10/16/15 07:00 11/13/15 06:38 (D50w (Vial) Inj) 25 ml UNSCH PRN IV 10/17/15 08:15 (Glucagon Inj) 1 mg UNSCH PRN IM/SQ 10/17/15 08:15 (Coreg) 25 mg BID PO 10/24/15 21:00 11/13/15 09:07 Phenol 2 spray 2 spray Q2H PRN MT 10/29/15 12:00 (Coumadin Consult Pharmacy) 0 ml @ 0 mls/hr UNSCH XX 10/30/15 05:30 (Tylenol) 650 mg Q4H PRN PO 10/30/15 05:30 (Colace) 100 mg BID PRN PO 10/30/15 05:30 11/02/15 22:19 (Tums Chew) 1,000 mg TID PRN CHEW 10/30/15 05:30 (Catapres) 0.1 mg Q6H PRN PO 10/30/15 05:30 11/07/15 06:04 (Haldol) 2 mg TID PO 10/31/15 18:00 11/13/15 17:03 (Mycostatin Powder) 1 applic DAILY TOPICAL 10/31/15 18:00 11/13/15 09:08 (Haydee-Colace) 2 tab BID PO 11/03/15 09:00 11/12/15 21:50 (Lactulose Liq) 30 ml TID PRN PO 11/03/15 05:45 (Lactulose Liq) 30 ml DAILY PO 11/04/15 09:00 11/12/15 09:47 (Miralax) 17 gm DAILY PO 11/04/15 09:00 11/12/15 09:48 (Vasotec) 5 mg BID PO 11/05/15 09:00 11/13/15 09:08 (Coumadin) 2.5 mg DAILY@1600 PO 11/13/15 16:00 11/13/15 16:10 (Coumadin) 1 mg DAILY@1600 PO 11/13/15 16:00 11/13/15 16:10 Allergies Allergies Coded Allergies Pen-Vee K (Verified Allergy, Severe, THROAT SWELLS, 10/15/15) Penicillin (Verified Allergy, Unknown, SWELLING, 10/15/15) Uncoded Allergies aspartame ( Adverse Reaction, Severe, severe nose bleed, 10/24/13) Exam I&O / VS 11/12/15 11/12/15 11/13/15 14:59 22:59 06:59 Intake Total 625 ml 120 ml 60 ml Output Total 800 ml Balance -175 ml 120 ml 60 ml Intake Oral 625 ml 120 ml 60 ml Output Urine Total 800 ml # Voids 2 2 # Bowel Movements 0 2 1 Vital Signs Date Time Temp Pulse Resp B/P Pulse Ox O2 Delivery O2 Flow Rate FiO2 11/13/15 16:00 97.2 80 16 140/78 93 11/13/15 12:51 98.9 78 20 93/55 94 11/13/15 09:00 Room Air 11/13/15 08:46 98.6 62 14 110/66 92 11/13/15 04:00 96.8 75 17 148/75 94 11/13/15 00:00 96.9 74 17 126/79 96 11/12/15 20:00 97.1 80 17 137/85 92 Exam Comments alert, speech is normal, follows commands PERRL. EOM--intact no facial asymetry motor --no gross focal deficits Objective Micro and Labs Laboratory Tests Test 11/13/15 07:30 Prothrombin Time 14.8 Prothromb Time International 1.4 Ratio Balbir Estrella PhD Nov 13, 2015 17:46
[2015-11-13 20:54] VITALS: BP 120/65; PULSE 73; RESP 18; TEMP 96.9; O2SAT 97
[2015-11-14 00:07] VITALS: BP 105/69; PULSE 72; RESP 18; TEMP 96.7; O2SAT 96
[2015-11-14 04:00] VITALS: BP 126/70; PULSE 78; RESP 18; TEMP 96; O2SAT 95
[2015-11-14] MEDS: INSULIN ASPART SUPPLEMENTAL SCALE SQ SCH ×4 (06:55→20:34)
[2015-11-14] MEDS: ISOSORBIDE MONONITRATE 60 MG TAB PO SCH (06:56)
[2015-11-14 07:58] LABS: AUTOMATED NEUTROPHIL # 5.3 TH/MM3 (1.8-7.7); BASOPHIL % 0.4 % (0.0-2.0); EOSINOPHIL # 0.6 TH/MM3 (0-0.4); EOSINOPHIL % 7.1 % (0.0-4.0); HEMATOCRIT 34.5 % (39.0-51.0); HEMO FLAGS DIFF FINAL; LYMPH % 17.6 % (9.0-44.0); LYMPHOCYTE # 1.4 TH/MM3 (1.0-4.8); MEAN CELL VOLUME 82.2 FL (80.0-100.0); MEAN CORPUSCULAR HEMOGLOBIN 26.7 PG (27.0-34.0); MEAN CORPUSCULAR HGB CONC 32.5 % (32.0-36.0); MONO % 9.1 % (0.0-8.0); NEUT % 65.8 % (16.0-70.0); PLATELET COUNT 158 TH/MM3 (150-450); RED BLOOD COUNT 4.19 MIL/MM3 (4.50-5.90); RED CELL DISTRIBUTION WIDTH 16.1 % (11.6-17.2); WHITE BLOOD COUNT 8.1 TH/MM3 (4.0-11.0)
[2015-11-14 07:59] LABS: INTERNATIONAL NORMALIZED RATIO 1.6 RATIO; PROTHROMBIN TIME - PATIENT 16.4 SEC (9.8-11.4)
[2015-11-14 08:15] LABS: ALT (GPT) 16 U/L (12-78); ANION GAP 6 MEQ/L (5-15); AST (GOT) 14 U/L (15-37); BLOOD UREA NITROGEN 15 MG/DL (7-18); CHLORIDE 109 MEQ/L (98-107); GLOMERULAR FILTRATION RATE 51 ML/MIN (>89); POTASSIUM 3.7 MEQ/L (3.5-5.1); SODIUM (NA) 143 MEQ/L (136-145)
[2015-11-14 08:18] LABS: ALKALINE PHOSPHATASE 102 U/L (45-117); TOTAL BILIRUBIN ADULT 0.5 MG/DL (0.2-1.0)
[2015-11-14 08:53] VITALS: BP 139/80; PULSE 76; RESP 19; TEMP 97; O2SAT 94
[2015-11-14] MEDS: DOCUSATE SODIUM 50 MG/SENNA 8.6 MG TAB PO SCH ×2 (09:00→20:34)
[2015-11-14] MEDS: SODIUM CHLORIDE 0.9% FLUSH 5 ML FLUSH FLUSH SCH ×2 (09:00→20:35)
[2015-11-14] MEDS: NYSTATIN 100,000 U/GM PWD 15 GM BTL TOPICAL SCH (09:26)
[2015-11-14] MEDS: LACTULOSE SYRUP 20 GM/30 ML CUP PO SCH (09:26)
[2015-11-14] MEDS: ATORVASTATIN 80 MG TAB PO SCH (09:26)
[2015-11-14] MEDS: POLYETHYLENE GLYCOL 17 GM PKG PO SCH (09:26)
[2015-11-14] MEDS: CARVEDILOL 12.5 MG TAB PO SCH ×2 (09:26→20:34)
[2015-11-14] MEDS: ENALAPRIL MALEATE 5 MG TAB PO SCH ×2 (09:26→20:34)
[2015-11-14] MEDS: HALOPERIDOL 2 MG TAB PO SCH ×3 (09:26→17:07)
[2015-11-14 13:25] VITALS: BP 95/62; PULSE 71; RESP 18; TEMP 96.8; O2SAT 98
[2015-11-14] MEDS ORDERED: WARFARIN SOD 2 MG TAB PO ONE (16:00)
[2015-11-14 16:41] VITALS: BP 140/90; PULSE 75; RESP 20; TEMP 96.7; O2SAT 97
[2015-11-14] MEDS: WARFARIN SOD 2.5 MG TAB PO SCH (17:07)
--- NOTE | 2015-11-14 18:47 | HHI.PR ---
Subjective Remarks Patient seen this afternoon around 2 PM. Nothing in bed. Wakes for exam. Denies any chest pain or shortness of breath. Denies any pain. Called later by nursing report that he is trying to get out of bed, requests something at night for agitation. Seroquel at bedtime when necessary ordered. Recommend keeping patient awake with lights on, windows open entire day, then will sleep better at night. Objective Vital Signs Date Time Temp Pulse Resp B/P Pulse Ox O2 Delivery O2 Flow Rate FiO2 11/14/15 16:41 96.7 75 20 140/90 97 11/14/15 13:25 96.8 71 18 95/62 98 11/14/15 08:53 97.0 76 19 139/80 94 11/14/15 08:21 Room Air 11/14/15 04:00 96.0 78 18 126/70 95 11/14/15 00:07 96.7 72 18 105/69 96 11/13/15 20:54 96.9 73 18 120/65 97 I/O 11/13/15 11/13/15 11/13/15 11/14/15 11/14/15 11/14/15 07:00 15:00 23:00 07:00 15:00 23:00 Intake Total 60 ml 1200 ml 240 ml 250 ml 240 ml Output Total 800 ml Balance 60 ml 400 ml 240 ml 250 ml 240 ml Intake Oral 60 ml 1200 ml 240 ml 250 ml 240 ml Output Urine Total 800 ml # Voids 2 0 2 # Bowel Movements 1 1 0 0 Result Diagram: 11/14/15 0619 11/14/15618 Objective Remarks GENERAL: Well-nourished, well-developed patient.is alert, disoriented. Lying in bed. Sleeping. Wakes for exam. Exam otherwise unchanged. HEAD: Normocephalic. EYES: No scleral icterus. No injection or drainage. NECK: Supple, trachea midline. No JVD or lymphadenopathy. CARDIOVASCULAR: Regular rate and rhythm without murmurs, gallops, or rubs. RESPIRATORY: Breath sounds equal bilaterally. No accessory muscle use. GASTROINTESTINAL: Abdomen soft, non-tender, nondistended. MUSCULOSKELETAL: No cyanosis, or edema. BACK: Nontender without obvious deformity. No CVA tenderness. A/P Assessment and Plan 60-year-old male with //Sepsis. resolved. -Leukocytosis improved. Repeat chest x-ray with no acute findings. Repeat urinalysis negative. Status post clindamycin for aspiration //Cellulitis of the left lower ext. resolved. with staph coag neg bacteremia in 4/4 tubes. Staph haemolyticus in aerobic tubes , with different sensitivities, contaminant likely. - Chronic venous stasis ulcers on the left lower ext. Clinically improved- cellulitis resolved. - wound cultures - MSSA, Serratia marcescens - Dr. Messina/ID ff; was on Keflex and Cipro for 10 days (vancomycin DCed) and completed 10/26. //Bilateral CVA:MRI showed acute cortical infarct. MRA of head and neck unremarkable. Neurology following. S/p ASA and Plavix. Continue with Statin, Coumadin and monitor INR/PT keep INR between 2 and 3. //Acute metabolic encephalopathy - baseline neuro status unknown but there is suspicion of chronic cognitive impairment/dementia. -CT head was unremarkable for any acute findings. -Mildly elevated NH3 level. Continue lactulose. Liver sonogram with gallstone and sludge -Consulted psychiatry who started Haldol and discontinued Geodon. Improving behavior discontinued restraints since 11/03/15 -Added Seroquel 50 mg at bedtime when necessary on 11/13. //Mild elevation of troponin without upward trend in the setting of CKD - No chest pain. Likely due to CKD. //CKD stage 4 likely diabetic and from diuretics. Improving better than baseline creatinine 1.27. Avoid nephrotoxins. Monitor BMP //Hypernatremia -stable //Metabolic acidosis due to CKD ; resolved //Cardiomyopathy/chronic systolic CHF LVEF 35% on echo 03/2015. Denies shortness of breath. Compensated. Ct Coreg 25mg BID and enalapril. Lasix IV as needed. -Cardiology following to consider AICD when patient is able to consent. Currently unable to consent. //Hypertension. Improving after increasing enalapril to 5 mg twice a day. //Diabetes mellitus A1c 7.5- cont long acting insulin Levemir 10 units sq HS, Novolog low SSI. Accu check controlled. //PAD -stable on NovoLog //Physical deconditioning: PT following. Out of bed to chair 3 times a day. Fall precautions //DVT prophylaxis with Coumadin Discharge Planning snf pending insurance approval. Appreciate case management assistance. Pastor Lu MD Nov 14, 2015 18:47
[2015-11-14 20:00] VITALS: BP 125/75; PULSE 75; RESP 18; TEMP 98.1; O2SAT 99
[2015-11-15] VITALS: BP 118/64; PULSE 68; RESP 18; TEMP 98.3; O2SAT 96
[2015-11-15 04:00] VITALS: BP 131/90; PULSE 71; RESP 20; TEMP 96.7; O2SAT 97
[2015-11-15] MEDS: INSULIN ASPART SUPPLEMENTAL SCALE SQ SCH ×4 (05:34→20:13)
[2015-11-15 08:00] VITALS: BP 124/78; PULSE 77; RESP 20; TEMP 96.7; O2SAT 97
[2015-11-15 08:23] LABS: INTERNATIONAL NORMALIZED RATIO 1.9 RATIO; PROTHROMBIN TIME - PATIENT 20.9 SEC (9.8-11.4)
[2015-11-15] MEDS: CARVEDILOL 12.5 MG TAB PO SCH ×2 (08:54→20:13)
[2015-11-15] MEDS: HALOPERIDOL 2 MG TAB PO SCH ×3 (08:54→17:20)
[2015-11-15] MEDS: ATORVASTATIN 80 MG TAB PO SCH (08:54)
[2015-11-15] MEDS: POLYETHYLENE GLYCOL 17 GM PKG PO SCH (08:55)
[2015-11-15] MEDS: SODIUM CHLORIDE 0.9% FLUSH 5 ML FLUSH FLUSH SCH ×2 (08:55→20:13)
[2015-11-15] MEDS: ENALAPRIL MALEATE 5 MG TAB PO SCH ×2 (08:55→20:13)
[2015-11-15] MEDS: LACTULOSE SYRUP 20 GM/30 ML CUP PO SCH (08:55)
[2015-11-15] MEDS: DOCUSATE SODIUM 50 MG/SENNA 8.6 MG TAB PO SCH ×2 (08:55→20:13)
[2015-11-15] MEDS: NYSTATIN 100,000 U/GM PWD 15 GM BTL TOPICAL SCH (08:56)
[2015-11-15 12:00] VITALS: BP 96/55; PULSE 83; RESP 18; TEMP 97.6; O2SAT 95
[2015-11-15 16:00] VITALS: BP 114/61; PULSE 84; RESP 19; TEMP 96.6; O2SAT 96
[2015-11-15] MEDS ORDERED: WARFARIN SOD 2 MG TAB PO ONE (16:00)
[2015-11-15] MEDS: WARFARIN SOD 1 MG TAB PO SCH (16:00)
[2015-11-15] MEDS: WARFARIN SOD 2.5 MG TAB PO SCH (17:20)
--- NOTE | 2015-11-15 19:21 | HHI.PR ---
Subjective Remarks Patient seen this afternoon around 3 PM. Sitting up at nursing station. Denies any pain, denies chest pain or shortness of breath. Objective Vital Signs Date Time Temp Pulse Resp B/P Pulse Ox O2 Delivery O2 Flow Rate FiO2 11/15/15 16:00 96.6 84 19 114/61 96 11/15/15 12:00 97.6 83 18 96/55 95 11/15/15 08:00 96.7 77 20 124/78 97 11/15/15 04:00 96.7 71 20 131/90 97 11/15/15 00:00 98.3 68 18 118/64 96 11/14/15 20:00 98.1 75 18 125/75 99 11/14/15 19:29 Room Air I/O 11/14/15 11/14/15 11/14/15 11/15/15 11/15/15 11/15/15 07:00 15:00 23:00 07:00 15:00 23:00 Intake Total 250 ml 240 ml 120 ml 550 ml Balance 250 ml 240 ml 120 ml 550 ml Intake Oral 250 ml 240 ml 120 ml 550 ml # Voids 2 2 4 # Bowel Movements 0 1 Result Diagram: 11/14/1561811/14/15618 Objective Remarks GENERAL: Well-nourished, well-developed patient.is alert, disoriented. Sitting up at nursing station. Exam otherwise unchanged. HEAD: Normocephalic. EYES: No scleral icterus. No injection or drainage. NECK: Supple, trachea midline. No JVD or lymphadenopathy. CARDIOVASCULAR: Regular rate and rhythm without murmurs, gallops, or rubs. RESPIRATORY: Breath sounds equal bilaterally. No accessory muscle use. GASTROINTESTINAL: Abdomen soft, non-tender, nondistended. MUSCULOSKELETAL: No cyanosis, or edema. BACK: Nontender without obvious deformity. No CVA tenderness. A/P Assessment and Plan 60-year-old male with //Sepsis. resolved. -Leukocytosis improved. Repeat chest x-ray with no acute findings. Repeat urinalysis negative. Status post clindamycin for aspiration //Cellulitis of the left lower ext. resolved. with staph coag neg bacteremia in 4/4 tubes. Staph haemolyticus in aerobic tubes , with different sensitivities, contaminant likely. - Chronic venous stasis ulcers on the left lower ext. Clinically improved- cellulitis resolved. - wound cultures - MSSA, Serratia marcescens - Dr. Messina/ID ff; was on Keflex and Cipro for 10 days (vancomycin DCed) and completed 10/26. //Bilateral CVA:MRI showed acute cortical infarct. MRA of head and neck unremarkable. Neurology following. S/p ASA and Plavix. Continue with Statin, Coumadin and monitor INR/PT keep INR between 2 and 3. //Acute metabolic encephalopathy - baseline neuro status unknown but there is suspicion of chronic cognitive impairment/dementia. -CT head was unremarkable for any acute findings. -Mildly elevated NH3 level. Continue lactulose. Liver sonogram with gallstone and sludge -Consulted psychiatry who started Haldol and discontinued Geodon. Improving behavior discontinued restraints since 11/03/15 -Added Seroquel 50 mg at bedtime when necessary on 11/13. //Mild elevation of troponin without upward trend in the setting of CKD - No chest pain. Likely due to CKD. //CKD stage 4 likely diabetic and from diuretics. Improving better than baseline creatinine 1.27. Avoid nephrotoxins. Monitor BMP //Hypernatremia -stable //Metabolic acidosis due to CKD ; resolved //Cardiomyopathy/chronic systolic CHF LVEF 35% on echo 03/2015. Denies shortness of breath. Compensated. Ct Coreg 25mg BID and enalapril. Lasix IV as needed. -Cardiology following to consider AICD when patient is able to consent. Currently unable to consent. //Hypertension. Improving after increasing enalapril to 5 mg twice a day. //Diabetes mellitus A1c 7.5- cont long acting insulin Levemir 10 units sq HS, Novolog low SSI. Accu check controlled. //PAD -stable on NovoLog //Physical deconditioning: PT following. Out of bed to chair 3 times a day. Fall precautions //DVT prophylaxis with Coumadin Discharge Planning snf pending insurance approval. Appreciate case management assistance. Pastor Lu MD Nov 15, 2015 19:21
[2015-11-15 20:00] VITALS: BP 125/76; PULSE 82; RESP 18; TEMP 98; O2SAT 96
[2015-11-16 00:05] VITALS: BP 123/74; PULSE 74; RESP 18; TEMP 97; O2SAT 96
[2015-11-16 04:14] VITALS: BP 153/92; PULSE 78; RESP 18; TEMP 97.2; O2SAT 98
[2015-11-16] MEDS: INSULIN ASPART SUPPLEMENTAL SCALE SQ SCH ×4 (04:17→20:30)
[2015-11-16] MEDS: ISOSORBIDE MONONITRATE 60 MG TAB PO SCH ×2 (04:18→04:23)
[2015-11-16 08:23] VITALS: BP 144/79; PULSE 70; RESP 18; TEMP 96.6; O2SAT 96
[2015-11-16] MEDS: NYSTATIN 100,000 U/GM PWD 15 GM BTL TOPICAL SCH (09:00)
[2015-11-16] MEDS: LACTULOSE SYRUP 20 GM/30 ML CUP PO SCH (09:00)
[2015-11-16] MEDS: SODIUM CHLORIDE 0.9% FLUSH 5 ML FLUSH FLUSH SCH ×2 (09:00→21:00)
[2015-11-16] MEDS: POLYETHYLENE GLYCOL 17 GM PKG PO SCH (10:27)
[2015-11-16] MEDS: ENALAPRIL MALEATE 5 MG TAB PO SCH ×2 (10:29→23:27)
[2015-11-16] MEDS: CARVEDILOL 12.5 MG TAB PO SCH ×2 (10:29→23:26)
[2015-11-16] MEDS: ATORVASTATIN 80 MG TAB PO SCH (10:29)
[2015-11-16] MEDS: DOCUSATE SODIUM 50 MG/SENNA 8.6 MG TAB PO SCH ×2 (10:29→23:27)
[2015-11-16] MEDS: HALOPERIDOL 2 MG TAB PO SCH ×3 (10:36→17:11)
[2015-11-16 11:46] VITALS: BP 120/68; PULSE 18; RESP 18; TEMP 97; O2SAT 96
[2015-11-16] MEDS ORDERED: WARFARIN SOD 2 MG TAB PO ONE (16:00)
[2015-11-16] MEDS ORDERED: WARFARIN SOD 2.5 MG TAB PO ONE (16:00)
[2015-11-16 16:22] VITALS: BP 127/79; PULSE 74; RESP 20; TEMP 97.4; O2SAT 97
[2015-11-16] MEDS: QUEtiapine FUMARATE 25 MG TAB PO PRN (17:44)
--- NOTE | 2015-11-16 19:03 | HHI.PR ---
Subjective Remarks Patient seen this morning. Sitting up at nursing station. Denies any pain. Denies any shortness of breath. No complaints. Discussed with nursing. Objective Vital Signs Date Time Temp Pulse Resp B/P Pulse Ox O2 Delivery O2 Flow Rate FiO2 11/16/15 16:22 97.4 74 20 127/79 97 11/16/15 11:46 97.0 18 18 120/68 96 11/16/15 08:23 96.6 70 18 144/79 96 11/16/15 04:23 Room Air 11/16/15 04:14 97.2 78 18 153/92 98 11/16/15 00:05 97.0 74 18 123/74 96 11/15/15 21:18 Room Air 11/15/15 20:00 98.0 82 18 125/76 96 I/O 11/15/15 11/15/15 11/15/15 11/16/15 11/16/15 11/16/15 07:00 15:00 23:00 07:00 15:00 23:00 Intake Total 120 ml 550 ml 0 ml 0 ml 420 ml Balance 120 ml 550 ml 0 ml 0 ml 420 ml Intake Oral 120 ml 550 ml 420 ml IV Total 0 ml 0 ml # Voids 2 4 3 # Bowel Movements 1 1 Result Diagram: 11/14/1561811/14/15618 Objective Remarks GENERAL: Well-nourished, well-developed patient.is alert, disoriented. Sitting up at nursing station. Exam unchanged. HEAD: Normocephalic. EYES: No scleral icterus. No injection or drainage. NECK: Supple, trachea midline. No JVD or lymphadenopathy. CARDIOVASCULAR: Regular rate and rhythm without murmurs, gallops, or rubs. RESPIRATORY: Breath sounds equal bilaterally. No accessory muscle use. GASTROINTESTINAL: Abdomen soft, non-tender, nondistended. MUSCULOSKELETAL: No cyanosis, or edema. BACK: Nontender without obvious deformity. No CVA tenderness. A/P Assessment and Plan 60-year-old male with //Sepsis. resolved. -Leukocytosis improved. Repeat chest x-ray with no acute findings. Repeat urinalysis negative. Status post clindamycin for aspiration //Cellulitis of the left lower ext. resolved. with staph coag neg bacteremia in 4/4 tubes. Staph haemolyticus in aerobic tubes , with different sensitivities, contaminant likely. - Chronic venous stasis ulcers on the left lower ext. Clinically improved- cellulitis resolved. - wound cultures - MSSA, Serratia marcescens - Dr. Messina/ID ff; was on Keflex and Cipro for 10 days (vancomycin DCed) and completed 10/26. //Bilateral CVA:MRI showed acute cortical infarct. MRA of head and neck unremarkable. Neurology following. S/p ASA and Plavix. Continue with Statin, Coumadin and monitor INR/PT keep INR between 2 and 3. //Acute metabolic encephalopathy - baseline neuro status unknown but there is suspicion of chronic cognitive impairment/dementia. -CT head was unremarkable for any acute findings. -Mildly elevated NH3 level. Continue lactulose. Liver sonogram with gallstone and sludge -Consulted psychiatry who started Haldol and discontinued Geodon. Improving behavior discontinued restraints since 11/03/15 -Added Seroquel 50 mg at bedtime when necessary on 11/13. //Mild elevation of troponin without upward trend in the setting of CKD - No chest pain. Likely due to CKD. //CKD stage 4 likely diabetic and from diuretics. Improving better than baseline creatinine 1.27. Avoid nephrotoxins. Monitor BMP //Hypernatremia -stable //Metabolic acidosis due to CKD ; resolved //Cardiomyopathy/chronic systolic CHF LVEF 35% on echo 03/2015. Denies shortness of breath. Compensated. Ct Coreg 25mg BID and enalapril. Lasix IV as needed. -Cardiology following to consider AICD when patient is able to consent. Currently unable to consent. //Hypertension. Improving after increasing enalapril to 5 mg twice a day. //Diabetes mellitus A1c 7.5- cont long acting insulin Levemir 10 units sq HS, Novolog low SSI. Accu check controlled. //PAD -stable on NovoLog //Physical deconditioning: PT following. Out of bed to chair 3 times a day. Fall precautions //DVT prophylaxis with Coumadin Discharge Planning snf pending insurance approval. Appreciate case management assistance. Pastor Lu MD Nov 16, 2015 19:03
[2015-11-16 20:56] VITALS: BP 131/81; PULSE 77; RESP 19; TEMP 98.1; O2SAT 98
[2015-11-17] VITALS: BP 162/91; PULSE 75; RESP 18; TEMP 96.6; O2SAT 95
[2015-11-17 04:00] VITALS: BP 156/98; PULSE 79; RESP 21; TEMP 96.8; O2SAT 93
[2015-11-17] MEDS: INSULIN ASPART SUPPLEMENTAL SCALE SQ SCH ×4 (06:35→20:14)
[2015-11-17] MEDS: ISOSORBIDE MONONITRATE 60 MG TAB PO SCH (07:11)
[2015-11-17 08:26] VITALS: BP 99/61; PULSE 75; RESP 22; TEMP 96.3; O2SAT 97
[2015-11-17] MEDS: SODIUM CHLORIDE 0.9% FLUSH 5 ML FLUSH FLUSH SCH ×2 (08:29→20:09)
[2015-11-17] MEDS: DOCUSATE SODIUM 50 MG/SENNA 8.6 MG TAB PO SCH ×2 (08:32→20:10)
[2015-11-17] MEDS: HALOPERIDOL 2 MG TAB PO SCH ×3 (08:32→17:45)
[2015-11-17] MEDS: ENALAPRIL MALEATE 5 MG TAB PO SCH ×2 (08:32→20:11)
[2015-11-17] MEDS: NYSTATIN 100,000 U/GM PWD 15 GM BTL TOPICAL SCH (08:32)
[2015-11-17] MEDS: LACTULOSE SYRUP 20 GM/30 ML CUP PO SCH (08:32)
[2015-11-17] MEDS: ATORVASTATIN 80 MG TAB PO SCH (08:32)
[2015-11-17] MEDS: CARVEDILOL 12.5 MG TAB PO SCH ×2 (08:32→20:14)
[2015-11-17] MEDS: POLYETHYLENE GLYCOL 17 GM PKG PO SCH (08:32)
[2015-11-17 11:08] LABS: INTERNATIONAL NORMALIZED RATIO 2.5 RATIO; PROTHROMBIN TIME - PATIENT 27.1 SEC (9.8-11.4)
[2015-11-17 12:12] VITALS: BP 154/85; PULSE 72; RESP 22; TEMP 96.6; O2SAT 96
[2015-11-17] MEDS ORDERED: WARFARIN SOD 2.5 MG TAB PO SCH (16:00)
[2015-11-17] MEDS ORDERED: WARFARIN SOD 1 MG TAB PO SCH (16:00)
[2015-11-17] MEDS ORDERED: WARFARIN SOD 3 MG TAB PO SCH (16:00)
[2015-11-17 17:06] VITALS: BP 124/78; PULSE 78; RESP 16; TEMP 97.5; O2SAT 98
[2015-11-17] MEDS: WARFARIN SOD 2.5 MG TAB PO SCH (17:45)
--- NOTE | 2015-11-17 18:37 | HHI.PR ---
Subjective Remarks patient seen around noon today. participating with physical therapy. denies any pain. Denies any nausea. Good appetite. No issues per discussion with nursing Objective Vital Signs Date Time Temp Pulse Resp B/P Pulse Ox O2 Delivery O2 Flow Rate FiO2 11/17/15 17:06 97.5 78 16 124/78 98 11/17/15 12:12 96.6 72 22 154/85 96 11/17/15 08:26 96.3 75 22 99/61 97 11/17/15 07:33 Room Air 11/17/15 04:00 96.8 79 21 156/98 93 11/17/15 00:00 96.6 75 18 162/91 95 11/16/15 20:56 98.1 77 19 131/81 98 11/16/15 20:00 Room Air I/O 11/16/15 11/16/15 11/16/15 11/17/15 11/17/15 11/17/15 06:59 14:59 22:59 06:59 14:59 22:59 Intake Total 0 ml 420 ml 0 ml 720 ml Output Total 500 ml Balance 0 ml 420 ml 0 ml 220 ml Intake Oral 420 ml 720 ml IV Total 0 ml 0 ml Output Urine Total 500 ml # Voids 3 0 1 # Bowel Movements 1 1 Result Diagram: 11/14/1561811/14/15618 Objective Remarks GENERAL: Well-nourished, well-developed patient.is alert, disoriented. sitting up in bed. Examotherwise unchanged. HEAD: Normocephalic. EYES: No scleral icterus. No injection or drainage. NECK: Supple, trachea midline. No JVD or lymphadenopathy. CARDIOVASCULAR: Regular rate and rhythm without murmurs, gallops, or rubs. RESPIRATORY: Breath sounds equal bilaterally. No accessory muscle use. GASTROINTESTINAL: Abdomen soft, non-tender, nondistended. MUSCULOSKELETAL: No cyanosis, or edema. BACK: Nontender without obvious deformity. No CVA tenderness. A/P Assessment and Plan 60-year-old male with //Sepsis. resolved. -Leukocytosis improved. Repeat chest x-ray with no acute findings. Repeat urinalysis negative. Status post clindamycin for aspiration //Cellulitis of the left lower ext. resolved. with staph coag neg bacteremia in 4/4 tubes. Staph haemolyticus in aerobic tubes , with different sensitivities, contaminant likely. - Chronic venous stasis ulcers on the left lower ext. Clinically improved- cellulitis resolved. - wound cultures - MSSA, Serratia marcescens - Dr. Messina/ID ff; was on Keflex and Cipro for 10 days (vancomycin DCed) and completed 10/26. //Bilateral CVA:MRI showed acute cortical infarct. MRA of head and neck unremarkable. Neurology following. S/p ASA and Plavix. Continue with Statin, Coumadin and monitor INR/PT keep INR between 2 and 3. //Acute metabolic encephalopathy - baseline neuro status unknown but there is suspicion of chronic cognitive impairment/dementia. -CT head was unremarkable for any acute findings. -Mildly elevated NH3 level. Continue lactulose. Liver sonogram with gallstone and sludge -Consulted psychiatry who started Haldol and discontinued Geodon. Improving behavior discontinued restraints since 11/03/15 -Added Seroquel 50 mg at bedtime when necessary on 11/13. //Mild elevation of troponin without upward trend in the setting of CKD - No chest pain. Likely due to CKD. //CKD stage 4 likely diabetic and from diuretics. Improving better than baseline creatinine 1.27. Avoid nephrotoxins. Monitor BMP //Hypernatremia -stable //Metabolic acidosis due to CKD ; resolved //Cardiomyopathy/chronic systolic CHF LVEF 35% on echo 03/2015. Denies shortness of breath. Compensated. Ct Coreg 25mg BID and enalapril. Lasix IV as needed. -Cardiology following to consider AICD when patient is able to consent. Currently unable to consent. //Hypertension. Improving after increasing enalapril to 5 mg twice a day. //Diabetes mellitus A1c 7.5- cont long acting insulin Levemir 10 units sq HS, Novolog low SSI. Accu check controlled. //PAD -stable on NovoLog //Physical deconditioning: PT following. Out of bed to chair 3 times a day. Fall precautions //DVT prophylaxis with Coumadin Discharge Planning snf pending acceptance. Difficulties with facilities accepting insurance per case management Pastor Lu MD Nov 17, 2015 18:37
[2015-11-17] MEDS: QUEtiapine FUMARATE 25 MG TAB PO PRN (20:11)
[2015-11-17 21:45] VITALS: BP 172/94; PULSE 81; RESP 20; TEMP 97; O2SAT 96
[2015-11-18 00:45] VITALS: BP 118/83; PULSE 71; RESP 20; TEMP 96.9; O2SAT 97
[2015-11-18 05:30] VITALS: BP 150/96; PULSE 77; RESP 18; TEMP 97; O2SAT 98
[2015-11-18] MEDS: ISOSORBIDE MONONITRATE 60 MG TAB PO SCH (07:02)
[2015-11-18] MEDS: INSULIN ASPART SUPPLEMENTAL SCALE SQ SCH ×4 (07:02→21:00)
[2015-11-18 08:15] VITALS: BP 108/70; PULSE 74; RESP 18; TEMP 96.5; O2SAT 96
[2015-11-18] MEDS: DOCUSATE SODIUM 50 MG/SENNA 8.6 MG TAB PO SCH ×2 (09:00→21:36)
[2015-11-18] MEDS: ENALAPRIL MALEATE 5 MG TAB PO SCH ×2 (09:00→21:00)
[2015-11-18] MEDS: POLYETHYLENE GLYCOL 17 GM PKG PO SCH (09:00)
[2015-11-18] MEDS: CARVEDILOL 12.5 MG TAB PO SCH ×2 (09:00→21:00)
[2015-11-18] MEDS: ATORVASTATIN 80 MG TAB PO SCH (09:00)
[2015-11-18] MEDS: NYSTATIN 100,000 U/GM PWD 15 GM BTL TOPICAL SCH (09:00)
[2015-11-18] MEDS: LACTULOSE SYRUP 20 GM/30 ML CUP PO SCH (09:00)
[2015-11-18] MEDS: HALOPERIDOL 2 MG TAB PO SCH ×3 (09:00→18:49)
[2015-11-18] MEDS: SODIUM CHLORIDE 0.9% FLUSH 5 ML FLUSH FLUSH SCH ×2 (09:47→21:00)
[2015-11-18 10:57] LABS: INTERNATIONAL NORMALIZED RATIO 2.5 RATIO; PROTHROMBIN TIME - PATIENT 27.3 SEC (9.8-11.4)
[2015-11-18 12:03] VITALS: BP_SYST 72; BP_SYST 85; BP_DIAS 50; BP_DIAS 52; PULSE 76; RESP 18; TEMP 95.9; O2SAT 98
[2015-11-18] MEDS: WARFARIN SOD 2.5 MG TAB PO SCH (16:30)
[2015-11-18 16:38] VITALS: BP 128/87; PULSE 86; RESP 18; TEMP 97; O2SAT 100
--- NOTE | 2015-11-18 17:45 | HHI.PR ---
Subjective Remarks Patient seen today around noon. Sitting up in chair at nursing station. no complaints. denies pain. Objective Vital Signs Date Time Temp Pulse Resp B/P Pulse Ox O2 Delivery O2 Flow Rate FiO2 11/18/15 16:38 97.0 86 18 128/87 100 11/18/15 12:03 95.9 76 18 72/52 98 85/50 11/18/15 08:15 96.5 74 18 108/70 96 11/18/15 07:00 Room Air 11/18/15 05:30 97.0 77 18 150/96 98 11/18/15 00:45 96.9 71 20 118/83 97 11/17/15 22:30 Room Air 11/17/15 21:45 97.0 81 20 172/94 96 I/O 11/17/15 11/17/15 11/17/15 11/18/15 11/18/15 11/18/15 07:00 15:00 23:00 07:00 15:00 23:00 Intake Total 0 ml 1070 ml 100 ml 120 ml Output Total 500 ml Balance 0 ml 570 ml 100 ml 120 ml Intake Oral 1070 ml 100 ml 120 ml IV Total 0 ml Output Urine Total 500 ml # Voids 1 1 1 2 # Bowel Movements 1 0 1 Result Diagram: 11/14/1561811/14/15618 Objective Remarks GENERAL: Well-nourished, well-developed patient.is alert, disoriented. sitting up in chair at nursing station. Exam stable HEAD: Normocephalic. EYES: No scleral icterus. No injection or drainage. NECK: Supple, trachea midline. No JVD or lymphadenopathy. CARDIOVASCULAR: Regular rate and rhythm without murmurs, gallops, or rubs. RESPIRATORY: Breath sounds equal bilaterally. No accessory muscle use. GASTROINTESTINAL: Abdomen soft, non-tender, nondistended. MUSCULOSKELETAL: No cyanosis, or edema. BACK: Nontender without obvious deformity. No CVA tenderness. A/P Assessment and Plan 60-year-old male with //Sepsis. resolved. -Leukocytosis improved. Repeat chest x-ray with no acute findings. Repeat urinalysis negative. Status post clindamycin for aspiration //Cellulitis of the left lower ext. resolved. with staph coag neg bacteremia in 4/4 tubes. Staph haemolyticus in aerobic tubes , with different sensitivities, contaminant likely. - Chronic venous stasis ulcers on the left lower ext. Clinically improved- cellulitis resolved. - wound cultures - MSSA, Serratia marcescens - Dr. Messina/ID ff; was on Keflex and Cipro for 10 days (vancomycin DCed) and completed 10/26. //Bilateral CVA:MRI showed acute cortical infarct. MRA of head and neck unremarkable. Neurology following. S/p ASA and Plavix. Continue with Statin, Coumadin and monitor INR/PT keep INR between 2 and 3. //Acute metabolic encephalopathy - baseline neuro status unknown but there is suspicion of chronic cognitive impairment/dementia. -CT head was unremarkable for any acute findings. -Mildly elevated NH3 level. Continue lactulose. Liver sonogram with gallstone and sludge -Consulted psychiatry who started Haldol and discontinued Geodon. Improving behavior discontinued restraints since 11/03/15 -Added Seroquel 50 mg at bedtime when necessary on 11/13. //Mild elevation of troponin without upward trend in the setting of CKD - No chest pain. Likely due to CKD. //CKD stage 4 likely diabetic and from diuretics. Improving better than baseline creatinine 1.27. Avoid nephrotoxins. Monitor BMP //Hypernatremia -stable //Metabolic acidosis due to CKD ; resolved //Cardiomyopathy/chronic systolic CHF LVEF 35% on echo 03/2015. Denies shortness of breath. Compensated. Ct Coreg 25mg BID and enalapril. Lasix IV as needed. -Cardiology following to consider AICD when patient is able to consent. Currently unable to consent. //Hypertension. Improving after increasing enalapril to 5 mg twice a day. //Diabetes mellitus A1c 7.5- cont long acting insulin Levemir 10 units sq HS, Novolog low SSI. Accu check controlled. //PAD -stable on NovoLog //Physical deconditioning: PT following. Out of bed to chair 3 times a day. Fall precautions //DVT prophylaxis with Coumadin Discharge Planning snf pending acceptance. Difficulties with facilities accepting insurance per case management Pastor Lu MD Nov 18, 2015 17:45
[2015-11-18 20:47] VITALS: BP 101/57; PULSE 82; RESP 17; TEMP 97.6; O2SAT 99
[2015-11-19 00:41] VITALS: BP 138/78; PULSE 86; RESP 18; TEMP 97.3; O2SAT 98
[2015-11-19 04:42] VITALS: BP 126/72; PULSE 87; RESP 19; TEMP 100; O2SAT 97
[2015-11-19] MEDS: ISOSORBIDE MONONITRATE 60 MG TAB PO SCH (06:36)
[2015-11-19] MEDS: INSULIN ASPART SUPPLEMENTAL SCALE SQ SCH ×4 (06:42→20:04)
[2015-11-19] MEDS: ENALAPRIL MALEATE 5 MG TAB PO SCH ×3 (07:53→21:31)
[2015-11-19] MEDS: ATORVASTATIN 80 MG TAB PO SCH (07:54)
[2015-11-19] MEDS: HALOPERIDOL 2 MG TAB PO SCH (07:54)
[2015-11-19] MEDS: CARVEDILOL 12.5 MG TAB PO SCH ×3 (07:54→21:31)
[2015-11-19] MEDS: DOCUSATE SODIUM 50 MG/SENNA 8.6 MG TAB PO SCH ×2 (07:54→20:03)
[2015-11-19] MEDS: POLYETHYLENE GLYCOL 17 GM PKG PO SCH (07:54)
[2015-11-19] MEDS: LACTULOSE SYRUP 20 GM/30 ML CUP PO SCH (07:54)
[2015-11-19] MEDS: NYSTATIN 100,000 U/GM PWD 15 GM BTL TOPICAL SCH (07:55)
[2015-11-19] MEDS: SODIUM CHLORIDE 0.9% FLUSH 5 ML FLUSH FLUSH SCH ×2 (07:55→20:03)
[2015-11-19 08:09] VITALS: BP 116/72; PULSE 87; RESP 18; TEMP 97.3; O2SAT 93
[2015-11-19 10:12] LABS: PROTHROMBIN TIME - PATIENT 21.1 SEC (9.8-11.4)
[2015-11-19 12:11] VITALS: BP 110/71; PULSE 78; RESP 20; TEMP 97.4; O2SAT 98
[2015-11-19 16:12] VITALS: BP 110/60; PULSE 77; RESP 18; TEMP 97.1; O2SAT 98
--- NOTE | 2015-11-19 16:46 | HHI.PR ---
Subjective Remarks Mr. Amado appears to be mildly confused. However, he follows commands appropriately. No fever, chills. Tolerating diet well. Objective Vitals Vital Signs Date Time Temp Pulse Resp B/P Pulse Ox O2 Delivery O2 Flow Rate FiO2 11/19/15 12:11 97.4 78 20 110/71 98 11/19/15 08:09 97.3 87 18 116/72 93 11/19/15 07:00 Room Air 11/19/15 04:42 100.0 87 19 126/72 97 11/19/15 00:41 97.3 86 18 138/78 98 11/19/15 00:00 Room Air 11/18/15 21:00 Room Air 11/18/15 20:47 97.6 82 17 101/57 99 I/O 11/18/15 11/18/15 11/18/15 11/19/15 11/19/15 11/19/15 07:00 15:00 23:00 07:00 15:00 23:00 Intake Total 100 ml 800 ml 680 ml Balance 100 ml 800 ml 680 ml Intake Oral 100 ml 800 ml 680 ml # Voids 1 4 0 # Bowel Movements 0 1 0 Imaging Last Impressions Chest X-Ray 11/06/15 0000 Signed Impressions: Service Date/Time: Friday, November 06, 2015 11:35 - CONCLUSION: Compensated cardiomegaly, history of bypass otherwise negative. Superior most sternal wire is fractured. Didier Clay MD FACR Liver Ultrasound 10/30/15 0000 Signed Impressions: Service Date/Time: Friday, October 30, 2015 17:29 - CONCLUSION: 1. Cholelithiasis with probable gallbladder sludge and mild gallbladder distention. 2. Splenomegaly. Sameer Alexandra MD Modified Barium Swallow 10/27/15 0000 Signed Impressions: Service Date/Time: Tuesday, October 27, 2015 00:00 - CONCLUSION: Negative for penetration or aspiration. Please see speech pathology report. Tai Cohen MD Brain MRI 10/22/15 0000 Signed Impressions: Service Date/Time: September 14:38 - CONCLUSION: 1. No significant interval change is identified. There is stable restricted diffusion in the left basal ganglia representing an area of recent ischemia. There are no findings to indicate hemorrhagic transformation. The previously documented signal change within the right cerebral peduncle has nearly normalized. 2. Stable chronic white matter changes. Camacho Culp MD Neck Magnetic Resonance Angiography 10/21/15 Signed Impressions: Service Date/Time: Wednesday, October 21, 2015 12:52 - CONCLUSION: . 1. Unremarkable MRA of the carotid arteries bilaterally. 2. Nonspecific possible collateral vessels in the soft tissues posterior to the right vertebral artery. The right verbal artery appears to be patent. If clinically indicated, a CTA could be performed for further evaluation. Abiodun Hall MD Head Magnetic Resonance Angiography 10/21/15 Signed Impressions: Service Date/Time: Wednesday, October 21, 2015 12:52 - CONCLUSION: Unremarkable MRA of the brain. Abiodun Hall MD Head CT 10/15/152116 Signed Impressions: Service Date/Time: September 21:47 - CONCLUSION: 1. No evidence of hemorrhage or mass effect. 2. Lacunar infarct right thalamus, left basal ganglia and adjacent to the left lateral ventricular body. 3. No skull fracture seen. Daryl Varner MD Objective Remarks GENERAL: Well-nourished, well-developed patient. Alert, oriented to person. SKIN: Warm and dry. HEAD: Normocephalic. EYES: No scleral icterus. No injection or drainage. NECK: Supple, trachea midline. No JVD or lymphadenopathy. CARDIOVASCULAR: Regular rate and rhythm without murmurs, gallops, or rubs. RESPIRATORY: Breath sounds equal bilaterally. No accessory muscle use. GASTROINTESTINAL: Abdomen soft, non-tender, nondistended. MUSCULOSKELETAL: No cyanosis, or edema. Right sided BKA. BACK: Nontender without obvious deformity. No CVA tenderness. Procedures None A/P Problem List: (1) Cellulitis Status: Resolved (2) Ischemic cardiomyopathy Status: Chronic (3) Diabetes mellitus type 2 in obese Status: Chronic (4) S/P BKA (below knee amputation) unilateral Status: Chronic (5) Acute metabolic encephalopathy Status: Acute (6) Bacteremia Status: Resolved (7) Chronic systolic (congestive) heart failure Status: Chronic (8) Venous stasis ulcer of left lower extremity Status: Chronic (9) Shortness of breath Status: Chronic (10) CVA (cerebral vascular accident) Status: Acute Assessment and Plan 60-year-old male with - Sepsis. resolved. - Leukocytosis improved. Repeat chest x-ray with no acute findings. Repeat urinalysis negative. Status post clindamycin for aspiration - Cellulitis of the left lower ext. resolved. with staph coag neg bacteremia in 4/4 tubes. Staph haemolyticus in aerobic tubes , with different sensitivities, contaminant likely. - Chronic venous stasis ulcers on the left lower ext. Clinically improved- cellulitis resolved. - wound cultures - MSSA, Serratia marcescens - Dr. Messina/[facility] ff; was on Keflex and Cipro for 10 days (vancomycin DCed) and completed 10/26. - Bilateral CVA:MRI showed acute cortical infarct. MRA of head and neck unremarkable. Neurology following. S/p ASA and Plavix. Continue with Statin, Coumadin and monitor INR/PT keep INR between 2 and 3. - Acute metabolic encephalopathy - baseline neuro status unknown but there is suspicion of chronic cognitive impairment/dementia. -CT head was unremarkable for any acute findings. -Mildly elevated NH3 level. Continue lactulose. Liver sonogram with gallstone and sludge -Consulted psychiatry who started Haldol and discontinued Geodon. Improving behavior discontinued restraints since 11/03/15 -Added Seroquel 50 mg at bedtime when necessary on 11/13. - Mild elevation of troponin without upward trend in the setting of CKD - No chest pain. Likely due to CKD. - CKD stage 4 likely diabetic and from diuretics. Improving better than baseline creatinine 1.27. Avoid nephrotoxins. Monitor BMP - Hypernatremia -stable - Metabolic acidosis due to CKD ; resolved - Cardiomyopathy/chronic systolic CHF LVEF 35% on echo 03/2015. Denies shortness of breath. Compensated. Ct Coreg 25mg BID and enalapril. Lasix IV as needed. -Cardiology following to consider AICD when patient is able to consent. Currently unable to consent. - Hypertension. Improving after increasing enalapril to 5 mg twice a day. - Diabetes mellitus A1c 7.5- cont long acting insulin Levemir 10 units sq HS, Novolog low SSI. Accu check controlled. - PAD -stable on NovoLog - Physical deconditioning: PT following. Out of bed to chair 3 times a day. Fall precautions - DVT prophylaxis with Coumadin Discharge Planning snf pending acceptance. Difficulties with facilities accepting insurance per case management Problem Qualifiers (1) Cellulitis: Bacilio Carr 21, 2016 16:46
[2015-11-19] MEDS: WARFARIN SOD 2.5 MG TAB PO SCH (16:57)
[2015-11-19] MEDS: HALOPERIDOL 5 MG TAB PO SCH (20:32)
[2015-11-19 20:35] VITALS: BP 183/89; PULSE 83; RESP 19; TEMP 96.2; O2SAT 96
[2015-11-20 00:25] VITALS: BP 131/91; PULSE 80; RESP 19; TEMP 96.6; O2SAT 94
[2015-11-20 04:25] VITALS: BP 156/91; PULSE 87; RESP 19; TEMP 96.7; O2SAT 95
[2015-11-20] MEDS: ISOSORBIDE MONONITRATE 60 MG TAB PO SCH (06:29)
[2015-11-20] MEDS: INSULIN ASPART SUPPLEMENTAL SCALE SQ SCH ×4 (06:40→21:00)
[2015-11-20 06:49] LABS: INTERNATIONAL NORMALIZED RATIO 1.6 RATIO; PROTHROMBIN TIME - PATIENT 17.1 SEC (9.8-11.4)
[2015-11-20] MEDS: CARVEDILOL 12.5 MG TAB PO SCH ×2 (08:00→21:38)
[2015-11-20 08:11] VITALS: BP 100/55; PULSE 82; RESP 20; TEMP 95.7; O2SAT 95
[2015-11-20] MEDS: SODIUM CHLORIDE 0.9% FLUSH 5 ML FLUSH FLUSH SCH ×2 (08:45→21:00)
[2015-11-20] MEDS: HALOPERIDOL 5 MG TAB PO SCH ×2 (09:00→21:38)
[2015-11-20] MEDS: DOCUSATE SODIUM 50 MG/SENNA 8.6 MG TAB PO SCH ×2 (09:00→21:38)
[2015-11-20] MEDS: ENALAPRIL MALEATE 5 MG TAB PO SCH ×2 (09:00→21:38)
[2015-11-20] MEDS: NYSTATIN 100,000 U/GM PWD 15 GM BTL TOPICAL SCH (09:00)
[2015-11-20] MEDS: ATORVASTATIN 80 MG TAB PO SCH (09:00)
[2015-11-20] MEDS: LACTULOSE SYRUP 20 GM/30 ML CUP PO SCH (09:01)
[2015-11-20] MEDS: POLYETHYLENE GLYCOL 17 GM PKG PO SCH (09:02)
[2015-11-20 12:10] VITALS: BP 118/73; PULSE 78; RESP 20; TEMP 96.3; O2SAT 96
--- NOTE | 2015-11-20 12:24 | HHI.PR ---
Subjective Remarks Patient is doing well. No acute concerns. Waiting for a placement. Objective Vitals Vital Signs Date Time Temp Pulse Resp B/P Pulse Ox O2 Delivery O2 Flow Rate FiO2 11/20/15 08:11 95.7 82 20 100/55 95 11/20/15 07:50 Room Air 11/20/15 04:25 96.7 87 19 156/91 95 11/20/15 00:25 96.6 80 19 131/91 94 11/19/15 20:35 96.2 83 19 183/89 96 11/19/15 20:30 Room Air 11/19/15 16:12 97.1 77 18 110/60 98 I/O 11/19/15 11/19/15 11/19/15 11/20/15 11/20/15 11/20/15 07:00 15:00 23:00 07:00 15:00 23:00 Intake Total 680 ml 480 ml 580 ml 220 ml Output Total 0 ml Balance 680 ml 480 ml 580 ml 220 ml Intake Oral 680 ml 480 ml 580 ml 220 ml Output Urine Total 0 ml Bladder Scan Volume Amount 11 ml # Voids 0 3 2 3 # Bowel Movements 0 1 0 0 Objective Remarks GENERAL: Well-nourished, well-developed patient. Alert, oriented to person. SKIN: Warm and dry. HEAD: Normocephalic. EYES: No scleral icterus. No injection or drainage. NECK: Supple, trachea midline. No JVD or lymphadenopathy. CARDIOVASCULAR: Regular rate and rhythm without murmurs, gallops, or rubs. RESPIRATORY: Breath sounds equal bilaterally. No accessory muscle use. GASTROINTESTINAL: Abdomen soft, non-tender, nondistended. MUSCULOSKELETAL: No cyanosis, or edema. Right sided BKA. BACK: Nontender without obvious deformity. No CVA tenderness. Procedures None A/P Problem List: (1) Cellulitis Status: Resolved (2) Ischemic cardiomyopathy Status: Chronic (3) Diabetes mellitus type 2 in obese Status: Chronic (4) S/P BKA (below knee amputation) unilateral Status: Chronic (5) Acute metabolic encephalopathy Status: Acute (6) Bacteremia Status: Resolved (7) Chronic systolic (congestive) heart failure Status: Chronic (8) Venous stasis ulcer of left lower extremity Status: Chronic (9) Shortness of breath Status: Chronic (10) CVA (cerebral vascular accident) Status: Acute Assessment and Plan 60-year-old male with - Sepsis. resolved. - Leukocytosis improved. Repeat chest x-ray with no acute findings. Repeat urinalysis negative. Status post clindamycin for aspiration - Cellulitis of the left lower ext. resolved. with staph coag neg bacteremia in 4/4 tubes. Staph haemolyticus in aerobic tubes , with different sensitivities, contaminant likely. - Chronic venous stasis ulcers on the left lower ext. Clinically improved- cellulitis resolved. - wound cultures - MSSA, Serratia marcescens - Dr. Messina/ID ff; was on Keflex and Cipro for 10 days (vancomycin DCed) and completed 10/26. - Bilateral CVA:MRI showed acute cortical infarct. MRA of head and neck unremarkable. Neurology following. S/p ASA and Plavix. Continue with Statin, Coumadin and monitor INR/PT keep INR between 2 and 3. - Acute metabolic encephalopathy - baseline neuro status unknown but there is suspicion of chronic cognitive impairment/dementia. -CT head was unremarkable for any acute findings. -Mildly elevated NH3 level. Continue lactulose. Liver sonogram with gallstone and sludge -Consulted psychiatry who started Haldol and discontinued Geodon. Improving behavior discontinued restraints since 11/03/15 -Added Seroquel 50 mg at bedtime when necessary on 11/13. - Mild elevation of troponin without upward trend in the setting of CKD - No chest pain. Likely due to CKD. - CKD stage 4 likely diabetic and from diuretics. Improving better than baseline creatinine 1.27. Avoid nephrotoxins. Monitor BMP - Hypernatremia -stable - Metabolic acidosis due to CKD ; resolved - Cardiomyopathy/chronic systolic CHF LVEF 35% on echo 03/2015. Denies shortness of breath. Compensated. Ct Coreg 25mg BID and enalapril. Lasix IV as needed. -Cardiology following to consider AICD when patient is able to consent. Currently unable to consent. - Hypertension. Improving after increasing enalapril to 5 mg twice a day. - Diabetes mellitus A1c 7.5- cont long acting insulin Levemir 10 units sq HS, Novolog low SSI. Accu check controlled. - PAD -stable on NovoLog - Physical deconditioning: PT following. Out of bed to chair 3 times a day. Fall precautions - DVT prophylaxis with Coumadin Discharge Planning snf pending acceptance. Difficulties with facilities accepting insurance per case management Problem Qualifiers (1) Cellulitis: Bacilio Carr DO Nov 20, 2015 12:24
[2015-11-20] MEDS ORDERED: WARFARIN SOD 3 MG TAB PO SCH (16:00)
[2015-11-20 16:09] VITALS: BP 136/81; PULSE 78; RESP 22; TEMP 97; O2SAT 98
[2015-11-20 20:00] VITALS: BP 138/74; PULSE 77; RESP 20; TEMP 99.5; O2SAT 99
[2015-11-21] VITALS (7 sets, daily range): BP systolic 94–138; BP diastolic 53–87; PULSE 72–80; RESP 16–20; TEMP 96–98; O2SAT 93–100
[2015-11-21 04:44] LABS: INTERNATIONAL NORMALIZED RATIO 1.5 RATIO; PROTHROMBIN TIME - PATIENT 15.8 SEC (9.8-11.4)
[2015-11-21] MEDS: ISOSORBIDE MONONITRATE 60 MG TAB PO SCH (06:43)
[2015-11-21] MEDS: INSULIN ASPART SUPPLEMENTAL SCALE SQ SCH ×4 (06:43→22:57)
[2015-11-21] MEDS: SODIUM CHLORIDE 0.9% FLUSH 5 ML FLUSH FLUSH SCH ×2 (09:00→21:00)
[2015-11-21] MEDS: NYSTATIN 100,000 U/GM PWD 15 GM BTL TOPICAL SCH (09:00)
[2015-11-21] MEDS: ENALAPRIL MALEATE 5 MG TAB PO SCH ×4 (09:00→22:56)
[2015-11-21] MEDS: CARVEDILOL 12.5 MG TAB PO SCH ×4 (09:00→22:56)
[2015-11-21] MEDS: LACTULOSE SYRUP 20 GM/30 ML CUP PO SCH (09:27)
[2015-11-21] MEDS: ATORVASTATIN 80 MG TAB PO SCH (09:27)
[2015-11-21] MEDS: DOCUSATE SODIUM 50 MG/SENNA 8.6 MG TAB PO SCH ×2 (09:27→22:56)
[2015-11-21] MEDS: HALOPERIDOL 5 MG TAB PO SCH ×2 (09:28→21:00)
[2015-11-21] MEDS: POLYETHYLENE GLYCOL 17 GM PKG PO SCH (09:28)
--- NOTE | 2015-11-21 09:47 | HHI.PR ---
Subjective Remarks Mr. Amado has no complains, sitting by the nursing station. Tolerating diet well. Objective Vitals Vital Signs Date Time Temp Pulse Resp B/P Pulse Ox O2 Delivery O2 Flow Rate FiO2 11/21/15 09:30 72 112/68 11/21/15 08:00 96.4 73 18 116/80 97 11/21/15 04:00 96.4 76 20 138/87 96 11/21/15 00:00 96.0 77 20 102/71 97 11/20/15 20:00 99.5 77 20 138/74 99 11/20/15 19:26 Room Air 11/20/15 16:09 97.0 78 22 136/81 98 11/20/15 12:10 96.3 78 20 118/73 96 I/O 11/20/15 11/20/15 11/20/15 11/21/15 11/21/15 11/21/15 07:00 15:00 23:00 07:00 15:00 23:00 Intake Total 220 ml 480 ml 240 ml 240 ml Balance 220 ml 480 ml 240 ml 240 ml Intake Oral 220 ml 480 ml 240 ml 240 ml Bladder Scan Volume Amount 11 ml # Voids 3 3 1 2 # Bowel Movements 0 0 0 0 Imaging Last Impressions Chest X-Ray 11/06/15 0000 Signed Impressions: Service Date/Time: Friday, November 06, 2015 11:35 - CONCLUSION: Compensated cardiomegaly, history of bypass otherwise negative. Superior most sternal wire is fractured. Didier Clay MD FACR Liver Ultrasound 10/30/15 0000 Signed Impressions: Service Date/Time: Friday, October 30, 2015 17:29 - CONCLUSION: 1. Cholelithiasis with probable gallbladder sludge and mild gallbladder distention. 2. Splenomegaly. Sameer Alexandra MD Modified Barium Swallow 10/27/15 0000 Signed Impressions: Service Date/Time: Tuesday, October 27, 2015 00:00 - CONCLUSION: Negative for penetration or aspiration. Please see speech pathology report. Tai Cohen MD Brain MRI 10/22/15 0000 Signed Impressions: Service Date/Time: September 14:38 - CONCLUSION: 1. No significant interval change is identified. There is stable restricted diffusion in the left basal ganglia representing an area of recent ischemia. There are no findings to indicate hemorrhagic transformation. The previously documented signal change within the right cerebral peduncle has nearly normalized. 2. Stable chronic white matter changes. Camacho Culp MD Neck Magnetic Resonance Angiography 10/21/15 Signed Impressions: Service Date/Time: Wednesday, October 21, 2015 12:52 - CONCLUSION: . 1. Unremarkable MRA of the carotid arteries bilaterally. 2. Nonspecific possible collateral vessels in the soft tissues posterior to the right vertebral artery. The right verbal artery appears to be patent. If clinically indicated, a CTA could be performed for further evaluation. Abiodun Hall MD Head Magnetic Resonance Angiography 10/21/15 Signed Impressions: Service Date/Time: Wednesday, October 21, 2015 12:52 - CONCLUSION: Unremarkable MRA of the brain. Abiodun Hall MD Head CT 10/15/152116 Signed Impressions: Service Date/Time: September 21:47 - CONCLUSION: 1. No evidence of hemorrhage or mass effect. 2. Lacunar infarct right thalamus, left basal ganglia and adjacent to the left lateral ventricular body. 3. No skull fracture seen. Daryl Varner MD Objective Remarks GENERAL: Well-nourished, well-developed patient. Alert, oriented to person. SKIN: Warm and dry. HEAD: Normocephalic. EYES: No scleral icterus. No injection or drainage. NECK: Supple, trachea midline. No JVD or lymphadenopathy. CARDIOVASCULAR: Regular rate and rhythm without murmurs, gallops, or rubs. RESPIRATORY: Breath sounds equal bilaterally. No accessory muscle use. GASTROINTESTINAL: Abdomen soft, non-tender, nondistended. MUSCULOSKELETAL: No cyanosis, or edema. Right sided BKA. BACK: Nontender without obvious deformity. No CVA tenderness. Procedures None A/P Problem List: (1) Cellulitis Status: Resolved (2) Ischemic cardiomyopathy Status: Chronic (3) Diabetes mellitus type 2 in obese Status: Chronic (4) S/P BKA (below knee amputation) unilateral Status: Chronic (5) Acute metabolic encephalopathy Status: Acute (6) Bacteremia Status: Resolved (7) Chronic systolic (congestive) heart failure Status: Chronic (8) Venous stasis ulcer of left lower extremity Status: Chronic (9) Shortness of breath Status: Chronic (10) CVA (cerebral vascular accident) Status: Acute Assessment and Plan 60-year-old male with - Sepsis. resolved. - Leukocytosis improved. Repeat chest x-ray with no acute findings. Repeat urinalysis negative. Status post clindamycin for aspiration - Cellulitis of the left lower ext. resolved. with staph coag neg bacteremia in 4/4 tubes. Staph haemolyticus in aerobic tubes , with different sensitivities, contaminant likely. - Chronic venous stasis ulcers on the left lower ext. Clinically improved- cellulitis resolved. - wound cultures - MSSA, Serratia marcescens - Dr. Messina/TISHA ff; was on Keflex and Cipro for 10 days (vancomycin DCed) and completed 10/26. - Bilateral CVA:MRI showed acute cortical infarct. MRA of head and neck unremarkable. Neurology following. S/p ASA and Plavix. Continue with Statin, Coumadin and monitor INR/PT keep INR between 2 and 3. - Acute metabolic encephalopathy - baseline neuro status unknown but there is suspicion of chronic cognitive impairment/dementia. -CT head was unremarkable for any acute findings. -Mildly elevated NH3 level. Continue lactulose. Liver sonogram with gallstone and sludge -Consulted psychiatry who started Haldol and discontinued Geodon. Improving behavior discontinued restraints since 11/03/15 -Added Seroquel 50 mg at bedtime when necessary on 11/13. - Mild elevation of troponin without upward trend in the setting of CKD - No chest pain. Likely due to CKD. - CKD stage 4 likely diabetic and from diuretics. Improving better than baseline creatinine 1.27. Avoid nephrotoxins. Monitor BMP - Hypernatremia -stable - Metabolic acidosis due to CKD ; resolved - Cardiomyopathy/chronic systolic CHF LVEF 35% on echo 03/2015. Denies shortness of breath. Compensated. Ct Coreg 25mg BID and enalapril. Lasix IV as needed. -Cardiology following to consider AICD when patient is able to consent. Currently unable to consent. - Hypertension. Improving after increasing enalapril to 5 mg twice a day. - Diabetes mellitus A1c 7.5- cont long acting insulin Levemir 10 units sq HS, Novolog low SSI. Accu check controlled. - PAD -stable on NovoLog - Physical deconditioning: PT following. Out of bed to chair 3 times a day. Fall precautions - DVT prophylaxis with Coumadin Discharge Planning snf pending acceptance. Difficulties with facilities accepting insurance per case management Problem Qualifiers (1) Cellulitis: Bacilio Carr DO Nov 21, 2015 09:47
[2015-11-21] MEDS ORDERED: WARFARIN SOD 4 MG TAB PO ONE (16:00)
[2015-11-22 00:20] VITALS: BP 126/79; PULSE 75; RESP 20; TEMP 98.3; O2SAT 97
[2015-11-22 04:00] VITALS: BP 130/83; PULSE 72; RESP 20; TEMP 98; O2SAT 96
[2015-11-22] MEDS: INSULIN ASPART SUPPLEMENTAL SCALE SQ SCH ×3 (07:00→21:00)
[2015-11-22 07:21] LABS: INTERNATIONAL NORMALIZED RATIO 1.6 RATIO; PROTHROMBIN TIME - PATIENT 17.4 SEC (9.8-11.4)
[2015-11-22] MEDS: ISOSORBIDE MONONITRATE 60 MG TAB PO SCH (07:33)
[2015-11-22 08:20] VITALS: BP 118/71; PULSE 77; RESP 14; TEMP 96.8; O2SAT 96
[2015-11-22] MEDS: HALOPERIDOL 5 MG TAB PO SCH ×2 (09:00→23:21)
[2015-11-22] MEDS: SODIUM CHLORIDE 0.9% FLUSH 5 ML FLUSH FLUSH SCH ×2 (09:00→21:00)
[2015-11-22] MEDS: NYSTATIN 100,000 U/GM PWD 15 GM BTL TOPICAL SCH (09:00)
[2015-11-22] MEDS: DOCUSATE SODIUM 50 MG/SENNA 8.6 MG TAB PO SCH ×2 (09:54→23:21)
[2015-11-22] MEDS: LACTULOSE SYRUP 20 GM/30 ML CUP PO SCH (09:54)
[2015-11-22] MEDS: ENALAPRIL MALEATE 5 MG TAB PO SCH ×2 (09:54→23:21)
[2015-11-22] MEDS: CARVEDILOL 12.5 MG TAB PO SCH ×2 (09:54→23:20)
[2015-11-22] MEDS: POLYETHYLENE GLYCOL 17 GM PKG PO SCH (09:55)
[2015-11-22] MEDS: ATORVASTATIN 80 MG TAB PO SCH (09:55)
--- NOTE | 2015-11-22 10:36 | HHI.PR ---
Subjective Remarks Mr. Amado is doing well. No fever, chills. Denies any acute concerns. Objective Vitals Vital Signs Date Time Temp Pulse Resp B/P Pulse Ox O2 Delivery O2 Flow Rate FiO2 11/22/15 08:20 96.8 77 14 118/71 96 11/22/15 04:00 98.0 72 20 130/83 96 11/22/15 00:20 98.3 75 20 126/79 97 11/21/15 20:00 97.5 80 16 123/77 93 11/21/15 16:00 96.6 76 18 94/53 100 11/21/15 12:00 98.0 80 18 136/82 97 I/O 11/21/15 11/21/15 11/21/15 11/22/15 11/22/15 11/22/15 07:00 15:00 23:00 07:00 15:00 23:00 Intake Total 240 ml 450 ml 220 ml Balance 240 ml 450 ml 220 ml Intake Oral 240 ml 450 ml 220 ml # Voids 2 2 1 # Bowel Movements 0 0 Imaging Last Impressions Chest X-Ray 11/06/15 0000 Signed Impressions: Service Date/Time: Friday, November 06, 2015 11:35 - CONCLUSION: Compensated cardiomegaly, history of bypass otherwise negative. Superior most sternal wire is fractured. Didier Clay MD FACR Liver Ultrasound 10/30/15 0000 Signed Impressions: Service Date/Time: Friday, October 30, 2015 17:29 - CONCLUSION: 1. Cholelithiasis with probable gallbladder sludge and mild gallbladder distention. 2. Splenomegaly. Sameer Alexandra MD Modified Barium Swallow 10/27/15 0000 Signed Impressions: Service Date/Time: Tuesday, October 27, 2015 00:00 - CONCLUSION: Negative for penetration or aspiration. Please see speech pathology report. Tai Cohen MD Brain MRI 10/22/15 0000 Signed Impressions: Service Date/Time: September 14:38 - CONCLUSION: 1. No significant interval change is identified. There is stable restricted diffusion in the left basal ganglia representing an area of recent ischemia. There are no findings to indicate hemorrhagic transformation. The previously documented signal change within the right cerebral peduncle has nearly normalized. 2. Stable chronic white matter changes. Camacho Culp MD Neck Magnetic Resonance Angiography 10/21/15 0000 Signed Impressions: Service Date/Time: Wednesday, October 21, 2015 12:52 - CONCLUSION: . 1. Unremarkable MRA of the carotid arteries bilaterally. 2. Nonspecific possible collateral vessels in the soft tissues posterior to the right vertebral artery. The right verbal artery appears to be patent. If clinically indicated, a CTA could be performed for further evaluation. Abiodun Hall MD Head Magnetic Resonance Angiography 10/21/15 Signed Impressions: Service Date/Time: Wednesday, October 21, 2015 12:52 - CONCLUSION: Unremarkable MRA of the brain. Abiodun Hall MD Head CT 10/15/152116 Signed Impressions: Service Date/Time: September 21:47 - CONCLUSION: 1. No evidence of hemorrhage or mass effect. 2. Lacunar infarct right thalamus, left basal ganglia and adjacent to the left lateral ventricular body. 3. No skull fracture seen. Daryl Varner MD Objective Remarks GENERAL: Well-nourished, well-developed patient. Alert, oriented to person. SKIN: Warm and dry. HEAD: Normocephalic. EYES: No scleral icterus. No injection or drainage. NECK: Supple, trachea midline. No JVD or lymphadenopathy. CARDIOVASCULAR: Regular rate and rhythm without murmurs, gallops, or rubs. RESPIRATORY: Breath sounds equal bilaterally. No accessory muscle use. GASTROINTESTINAL: Abdomen soft, non-tender, nondistended. MUSCULOSKELETAL: No cyanosis, or edema. Right sided BKA. BACK: Nontender without obvious deformity. No CVA tenderness. Procedures None A/P Problem List: (1) Cellulitis Status: Resolved (2) Ischemic cardiomyopathy Status: Chronic (3) Diabetes mellitus type 2 in obese Status: Chronic (4) S/P BKA (below knee amputation) unilateral Status: Chronic (5) Acute metabolic encephalopathy Status: Acute (6) Bacteremia Status: Resolved (7) Chronic systolic (congestive) heart failure Status: Chronic (8) Venous stasis ulcer of left lower extremity Status: Chronic (9) Shortness of breath Status: Chronic (10) CVA (cerebral vascular accident) Status: Acute Assessment and Plan 60-year-old male with - Sepsis. resolved. - Leukocytosis improved. Repeat chest x-ray with no acute findings. Repeat urinalysis negative. Status post clindamycin for aspiration - Cellulitis of the left lower ext. resolved. with staph coag neg bacteremia in 4/4 tubes. Staph haemolyticus in aerobic tubes , with different sensitivities, contaminant likely. - Chronic venous stasis ulcers on the left lower ext. Clinically improved- cellulitis resolved. - wound cultures - MSSA, Serratia marcescens - Dr. Messina/TISHA ff; was on Keflex and Cipro for 10 days (vancomycin DCed) and completed 10/26. - Bilateral CVA:MRI showed acute cortical infarct. MRA of head and neck unremarkable. Neurology following. S/p ASA and Plavix. Continue with Statin, Coumadin and monitor INR/PT keep INR between 2 and 3. - Acute metabolic encephalopathy - baseline neuro status unknown but there is suspicion of chronic cognitive impairment/dementia. -CT head was unremarkable for any acute findings. -Mildly elevated NH3 level. Continue lactulose. Liver sonogram with gallstone and sludge -Consulted psychiatry who started Haldol and discontinued Geodon. Improving behavior discontinued restraints since 11/03/15 -Added Seroquel 50 mg at bedtime when necessary on 11/13. - Mild elevation of troponin without upward trend in the setting of CKD - No chest pain. Likely due to CKD. - CKD stage 4 likely diabetic and from diuretics. Improving better than baseline creatinine 1.27. Avoid nephrotoxins. Monitor BMP - Hypernatremia -stable - Metabolic acidosis due to CKD ; resolved - Cardiomyopathy/chronic systolic CHF LVEF 35% on echo 03/2015. Denies shortness of breath. Compensated. Ct Coreg 25mg BID and enalapril. Lasix IV as needed. -Cardiology following to consider AICD when patient is able to consent. Currently unable to consent. - Hypertension. Improving after increasing enalapril to 5 mg twice a day. - Diabetes mellitus A1c 7.5- cont long acting insulin Levemir 10 units sq HS, Novolog low SSI. Accu check controlled. - PAD -stable on NovoLog - Physical deconditioning: PT following. Out of bed to chair 3 times a day. Fall precautions - DVT prophylaxis with Coumadin Discharge Planning snf pending acceptance. Difficulties with facilities accepting insurance per case management Problem Qualifiers (1) Cellulitis: Bacilio Carr DO Nov 22, 2015 10:36
[2015-11-22 12:34] VITALS: BP 128/83; PULSE 78; RESP 15; TEMP 96.6; O2SAT 96
[2015-11-22] MEDS: HALOPERIDOL LACTATE 5 MG/ML AMP IM PRN (15:53)
[2015-11-22] MEDS: WARFARIN SOD 4 MG TAB PO SCH (15:53)
[2015-11-22] MEDS ORDERED: WARFARIN SOD 3 MG TAB PO SCH (16:00)
[2015-11-22 17:10] VITALS: BP 137/89; PULSE 76; RESP 20; TEMP 96.9; O2SAT 95
[2015-11-22 20:51] VITALS: BP 136/84; PULSE 77; RESP 18; TEMP 98.2; O2SAT 94
[2015-11-23 00:23] VITALS: BP 158/99; PULSE 81; RESP 22; TEMP 98.6; O2SAT 98
[2015-11-23 03:59] VITALS: BP 125/77; PULSE 71; RESP 20; TEMP 98.6; O2SAT 94
[2015-11-23] MEDS: INSULIN ASPART SUPPLEMENTAL SCALE SQ SCH ×4 (06:46→21:00)
[2015-11-23] MEDS: ISOSORBIDE MONONITRATE 60 MG TAB PO SCH (06:51)
[2015-11-23 08:00] VITALS: BP 124/76; PULSE 76; RESP 20; TEMP 96.6; O2SAT 98
[2015-11-23 08:34] LABS: INTERNATIONAL NORMALIZED RATIO 2.3 RATIO; PROTHROMBIN TIME - PATIENT 25.4 SEC (9.8-11.4)
[2015-11-23] MEDS: CARVEDILOL 12.5 MG TAB PO SCH ×2 (08:40→22:36)
[2015-11-23] MEDS: POLYETHYLENE GLYCOL 17 GM PKG PO SCH (08:40)
[2015-11-23] MEDS: LACTULOSE SYRUP 20 GM/30 ML CUP PO SCH (08:40)
[2015-11-23] MEDS: DOCUSATE SODIUM 50 MG/SENNA 8.6 MG TAB PO SCH ×2 (08:40→22:36)
[2015-11-23] MEDS: HALOPERIDOL 5 MG TAB PO SCH ×2 (08:41→22:36)
[2015-11-23] MEDS: ATORVASTATIN 80 MG TAB PO SCH (08:41)
[2015-11-23] MEDS: ENALAPRIL MALEATE 5 MG TAB PO SCH ×2 (08:41→21:00)
[2015-11-23] MEDS: NYSTATIN 100,000 U/GM PWD 15 GM BTL TOPICAL SCH (08:42)
[2015-11-23] MEDS: SODIUM CHLORIDE 0.9% FLUSH 5 ML FLUSH FLUSH SCH ×2 (08:42→21:00)
--- NOTE | 2015-11-23 09:58 | HHI.PR ---
Subjective Remarks Mr. Amado is doing well. No acute concerns. States he is tolerating diet well. Discussed with CM today - they are going to contact [facility] again today. Objective Vitals Vital Signs Date Time Temp Pulse Resp B/P Pulse Ox O2 Delivery O2 Flow Rate FiO2 11/23/15 08:00 96.6 76 20 124/76 98 11/23/15 03:59 98.6 71 20 125/77 94 11/23/15 00:23 98.6 81 22 158/99 98 11/22/15 20:51 98.2 77 18 136/84 94 11/22/15 17:10 96.9 76 20 137/89 95 11/22/15 12:34 96.6 78 15 128/83 96 I/O 11/22/15 11/22/15 11/22/15 11/23/15 11/23/15 11/23/15 07:00 15:00 23:00 07:00 15:00 23:00 Intake Total 220 ml 240 ml 240 ml 720 ml Balance 220 ml 240 ml 240 ml 720 ml Intake Oral 220 ml 240 ml 240 ml 720 ml # Voids 1 3 6 # Bowel Movements 2 1 Imaging Last Impressions Chest X-Ray 11/06/15 0000 Signed Impressions: Service Date/Time: Friday, November 06, 2015 11:35 - CONCLUSION: Compensated cardiomegaly, history of bypass otherwise negative. Superior most sternal wire is fractured. Didier Clay MD FACR Liver Ultrasound 10/30/15 0000 Signed Impressions: Service Date/Time: Friday, October 30, 2015 17:29 - CONCLUSION: 1. Cholelithiasis with probable gallbladder sludge and mild gallbladder distention. 2. Splenomegaly. Sameer Alexandra MD Modified Barium Swallow 10/27/15 0000 Signed Impressions: Service Date/Time: Tuesday, October 27, 2015 00:00 - CONCLUSION: Negative for penetration or aspiration. Please see speech pathology report. Tai Cohen MD Brain MRI 10/22/15 0000 Signed Impressions: Service Date/Time: September 14:38 - CONCLUSION: 1. No significant interval change is identified. There is stable restricted diffusion in the left basal ganglia representing an area of recent ischemia. There are no findings to indicate hemorrhagic transformation. The previously documented signal change within the right cerebral peduncle has nearly normalized. 2. Stable chronic white matter changes. Camacho Culp MD Neck Magnetic Resonance Angiography 10/21/15 Signed Impressions: Service Date/Time: Wednesday, October 21, 2015 12:52 - CONCLUSION: . 1. Unremarkable MRA of the carotid arteries bilaterally. 2. Nonspecific possible collateral vessels in the soft tissues posterior to the right vertebral artery. The right verbal artery appears to be patent. If clinically indicated, a CTA could be performed for further evaluation. Abiodun Hall MD Head Magnetic Resonance Angiography 10/21/15 Signed Impressions: Service Date/Time: Wednesday, October 21, 2015 12:52 - CONCLUSION: Unremarkable MRA of the brain. Abiodun Hall MD Head CT 10/15/152116 Signed Impressions: Service Date/Time: September 21:47 - CONCLUSION: 1. No evidence of hemorrhage or mass effect. 2. Lacunar infarct right thalamus, left basal ganglia and adjacent to the left lateral ventricular body. 3. No skull fracture seen. Daryl Varner MD Objective Remarks GENERAL: Well-nourished, well-developed patient. Alert, oriented to person. SKIN: Warm and dry. HEAD: Normocephalic. EYES: No scleral icterus. No injection or drainage. NECK: Supple, trachea midline. No JVD or lymphadenopathy. CARDIOVASCULAR: Regular rate and rhythm without murmurs, gallops, or rubs. RESPIRATORY: Breath sounds equal bilaterally. No accessory muscle use. GASTROINTESTINAL: Abdomen soft, non-tender, nondistended. MUSCULOSKELETAL: No cyanosis, or edema. Right sided BKA. BACK: Nontender without obvious deformity. No CVA tenderness. Procedures None A/P Problem List: (1) Cellulitis Status: Resolved (2) Ischemic cardiomyopathy Status: Chronic (3) Diabetes mellitus type 2 in obese Status: Chronic (4) S/P BKA (below knee amputation) unilateral Status: Chronic (5) Acute metabolic encephalopathy Status: Acute (6) Bacteremia Status: Resolved (7) Chronic systolic (congestive) heart failure Status: Chronic (8) Venous stasis ulcer of left lower extremity Status: Chronic (9) Shortness of breath Status: Chronic (10) CVA (cerebral vascular accident) Status: Acute Assessment and Plan 60-year-old male with - Sepsis. resolved. - Leukocytosis improved. Repeat chest x-ray with no acute findings. Repeat urinalysis negative. Status post clindamycin for aspiration - Cellulitis of the left lower ext. resolved. - with staph coag neg bacteremia in 4/4 tubes. Staph haemolyticus in aerobic tubes, with different sensitivities, contaminant likely. - Chronic venous stasis ulcers on the left lower ext. Clinically improved- cellulitis resolved. - wound cultures - MSSA, Serratia marcescens - Dr. Messina/TISHA ff; was on Keflex and Cipro for 10 days (vancomycin DCed) and completed 10/26. - Bilateral CVA:MRI showed acute cortical infarct. MRA of head and neck unremarkable. Neurology following. S/p ASA and Plavix. Continue with Statin, Coumadin and monitor INR/PT keep INR between 2 and 3. - Acute metabolic encephalopathy - baseline neuro status unknown but there is suspicion of chronic cognitive impairment/dementia. -CT head was unremarkable for any acute findings. -Mildly elevated NH3 level. Continue lactulose. Liver sonogram with gallstone and sludge -Consulted psychiatry who started Haldol and discontinued Geodon. Improving behavior discontinued restraints since 11/03/15 -Added Seroquel 50 mg at bedtime when necessary on 11/13. - Mild elevation of troponin without upward trend in the setting of CKD - No chest pain. Likely due to CKD. - CKD stage 4 likely diabetic and from diuretics. Improving better than baseline creatinine 1.27. Avoid nephrotoxins. Monitor BMP - Hypernatremia -stable - Metabolic acidosis due to CKD ; resolved - Cardiomyopathy/chronic systolic CHF LVEF 35% on echo 03/2015. Denies shortness of breath. Compensated. Ct Coreg 25mg BID and enalapril. Lasix IV as needed. -Cardiology following to consider AICD when patient is able to consent. Currently unable to consent. - Hypertension. Improving after increasing enalapril to 5 mg twice a day. - Diabetes mellitus A1c 7.5- cont long acting insulin Levemir 10 units sq HS, Novolog low SSI. Accu check controlled. - PAD -stable on NovoLog - Physical deconditioning: PT following. Out of bed to chair 3 times a day. Fall precautions - DVT prophylaxis with Coumadin Discharge Planning snf pending acceptance. DCF will be contacted again by CM today. Problem Qualifiers (1) Cellulitis: Bacilio Carr DO Nov 23, 2015 09:58
[2015-11-23 13:26] VITALS: BP 93/55; PULSE 76; RESP 20; TEMP 95.8; O2SAT 99
[2015-11-23 16:07] VITALS: BP 108/65; PULSE 78; RESP 20; TEMP 95.4; O2SAT 97
[2015-11-23] MEDS: WARFARIN SOD 4 MG TAB PO SCH (16:11)
[2015-11-23 20:30] VITALS: BP 156/91; PULSE 82; RESP 19; TEMP 97; O2SAT 98
[2015-11-23] MEDS: QUEtiapine FUMARATE 25 MG TAB PO PRN (22:37)
[2015-11-24] VITALS (7 sets, daily range): BP systolic 84–150; BP diastolic 57–89; PULSE 78–88; RESP 17–23; TEMP 96–97.8; O2SAT 96–98
[2015-11-24] MEDS: INSULIN ASPART SUPPLEMENTAL SCALE SQ SCH ×4 (06:49→21:00)
[2015-11-24] MEDS: ISOSORBIDE MONONITRATE 60 MG TAB PO SCH (06:51)
[2015-11-24] MEDS: DOCUSATE SODIUM 50 MG/SENNA 8.6 MG TAB PO SCH ×2 (08:40→21:00)
[2015-11-24] MEDS: LACTULOSE SYRUP 20 GM/30 ML CUP PO SCH (08:40)
[2015-11-24] MEDS: ATORVASTATIN 80 MG TAB PO SCH (08:40)
[2015-11-24] MEDS: HALOPERIDOL 5 MG TAB PO SCH ×2 (08:40→21:00)
[2015-11-24] MEDS: POLYETHYLENE GLYCOL 17 GM PKG PO SCH (08:40)
[2015-11-24] MEDS: SODIUM CHLORIDE 0.9% FLUSH 5 ML FLUSH FLUSH SCH ×2 (08:41→21:00)
[2015-11-24] MEDS: ENALAPRIL MALEATE 5 MG TAB PO SCH ×2 (08:41→21:14)
[2015-11-24] MEDS: CARVEDILOL 12.5 MG TAB PO SCH ×2 (08:41→21:11)
[2015-11-24] MEDS: NYSTATIN 100,000 U/GM PWD 15 GM BTL TOPICAL SCH (08:41)
[2015-11-24 09:19] LABS: INTERNATIONAL NORMALIZED RATIO 2.9 RATIO; PROTHROMBIN TIME - PATIENT 31.8 SEC (9.8-11.4)
--- NOTE | 2015-11-24 10:09 | HHI.PR ---
Subjective Remarks Ms. Amado is doing well. No acute concerns. Denies any fever, chills. Objective Vitals Vital Signs Date Time Temp Pulse Resp B/P Pulse Ox O2 Delivery O2 Flow Rate FiO2 11/24/15 07:52 97.8 80 18 94/60 96 11/24/15 05:30 97.7 88 23 150/80 96 11/24/15 00:00 96.9 80 22 144/89 96 11/23/15 20:30 97.0 82 19 156/91 98 11/23/15 16:07 95.4 78 20 108/65 97 11/23/15 13:26 95.8 76 20 93/55 99 I/O 11/23/15 11/23/15 11/23/15 11/24/15 11/24/15 11/24/15 07:00 15:00 23:00 07:00 15:00 23:00 Intake Total 720 ml 670 ml 0 ml 60 ml Balance 720 ml 670 ml 0 ml 60 ml Intake Oral 720 ml 670 ml 0 ml 60 ml # Voids 6 3 2 # Bowel Movements 1 3 1 Objective Remarks GENERAL: Well-nourished, well-developed patient. Alert, oriented to person. SKIN: Warm and dry. HEAD: Normocephalic. EYES: No scleral icterus. No injection or drainage. NECK: Supple, trachea midline. No JVD or lymphadenopathy. CARDIOVASCULAR: Regular rate and rhythm without murmurs, gallops, or rubs. RESPIRATORY: Breath sounds equal bilaterally. No accessory muscle use. GASTROINTESTINAL: Abdomen soft, non-tender, nondistended. MUSCULOSKELETAL: No cyanosis, or edema. Right sided BKA. BACK: Nontender without obvious deformity. No CVA tenderness. Procedures None A/P Problem List: (1) Cellulitis Status: Resolved (2) Ischemic cardiomyopathy Status: Chronic (3) Diabetes mellitus type 2 in obese Status: Chronic (4) S/P BKA (below knee amputation) unilateral Status: Chronic (5) Acute metabolic encephalopathy Status: Acute (6) Bacteremia Status: Resolved (7) Chronic systolic (congestive) heart failure Status: Chronic (8) Venous stasis ulcer of left lower extremity Status: Chronic (9) Shortness of breath Status: Chronic (10) CVA (cerebral vascular accident) Status: Acute Assessment and Plan 60-year-old male with - Sepsis. resolved. - Leukocytosis improved. Repeat chest x-ray with no acute findings. Repeat urinalysis negative. Status post clindamycin for aspiration - BP was on the lower side today - systolic in the 90s. Repeat BP was improved to 104 systolic. - Cellulitis of the left lower ext. resolved. - with staph coag neg bacteremia in 4/4 tubes. Staph haemolyticus in aerobic tubes, with different sensitivities, contaminant likely. - Chronic venous stasis ulcers on the left lower ext. Clinically improved- cellulitis resolved. - wound cultures - MSSA, Serratia marcescens - Dr. Messina/ID ff; was on Keflex and Cipro for 10 days (vancomycin DCed) and completed 10/26. - Bilateral CVA:MRI showed acute cortical infarct. MRA of head and neck unremarkable. Neurology following. S/p ASA and Plavix. Continue with Statin, Coumadin and monitor INR/PT keep INR between 2 and 3. - Acute metabolic encephalopathy - baseline neuro status unknown but there is suspicion of chronic cognitive impairment/dementia. -CT head was unremarkable for any acute findings. -Mildly elevated NH3 level. Continue lactulose. Liver sonogram with gallstone and sludge -Consulted psychiatry who started Haldol and discontinued Geodon. Improving behavior discontinued restraints since 11/03/15 -Added Seroquel 50 mg at bedtime when necessary on 11/13. - Mild elevation of troponin without upward trend in the setting of CKD - No chest pain. Likely due to CKD. - CKD stage 4 likely diabetic and from diuretics. Improving better than baseline creatinine 1.27. Avoid nephrotoxins. Monitor BMP - Hypernatremia -stable - Metabolic acidosis due to CKD ; resolved - Cardiomyopathy/chronic systolic CHF LVEF 35% on echo 03/2015. Denies shortness of breath. Compensated. Ct Coreg 25mg BID and enalapril. Lasix IV as needed. -Cardiology following to consider AICD when patient is able to consent. Currently unable to consent. - Hypertension. Improving after increasing enalapril to 5 mg twice a day. - Diabetes mellitus A1c 7.5- cont long acting insulin Levemir 10 units sq HS, Novolog low SSI. Accu check controlled. - PAD -stable on NovoLog - Physical deconditioning: PT following. Out of bed to chair 3 times a day. Fall precautions - DVT prophylaxis with Coumadin Discharge Planning snf pending acceptance. DCF will be contacted again by CM today. Problem Qualifiers (1) Cellulitis: Bacilio Carr DO Nov 24, 2015 10:09
[2015-11-25] VITALS: BP 123/74; PULSE 75; RESP 15; TEMP 96.9; O2SAT 96
[2015-11-25 04:30] VITALS: BP 140/84; PULSE 71; RESP 20; TEMP 97; O2SAT 99
[2015-11-25] MEDS: INSULIN ASPART SUPPLEMENTAL SCALE SQ SCH ×2 (06:32→11:00)
[2015-11-25] MEDS: ISOSORBIDE MONONITRATE 60 MG TAB PO SCH (06:32)
[2015-11-25 07:49] LABS: PROTHROMBIN TIME - PATIENT 28.9 SEC (9.8-11.4)
[2015-11-25 07:52] LABS: INTERNATIONAL NORMALIZED RATIO 2.6 RATIO
[2015-11-25 08:08] VITALS: BP 148/94; PULSE 78; RESP 17; TEMP 96; O2SAT 96
[2015-11-25] MEDS: NYSTATIN 100,000 U/GM PWD 15 GM BTL TOPICAL SCH (09:00)
[2015-11-25] MEDS: HALOPERIDOL 5 MG TAB PO SCH ×2 (09:00→20:42)
[2015-11-25] MEDS: ENALAPRIL MALEATE 5 MG TAB PO SCH ×2 (09:25→20:42)
[2015-11-25] MEDS: CARVEDILOL 12.5 MG TAB PO SCH ×2 (09:25→20:42)
[2015-11-25] MEDS: DOCUSATE SODIUM 50 MG/SENNA 8.6 MG TAB PO SCH ×2 (09:25→20:42)
[2015-11-25] MEDS: ATORVASTATIN 80 MG TAB PO SCH (09:25)
[2015-11-25] MEDS: POLYETHYLENE GLYCOL 17 GM PKG PO SCH (09:25)
[2015-11-25] MEDS: SODIUM CHLORIDE 0.9% FLUSH 5 ML FLUSH FLUSH SCH ×2 (09:26→20:42)
[2015-11-25] MEDS: LACTULOSE SYRUP 20 GM/30 ML CUP PO SCH (09:26)
--- NOTE | 2015-11-25 10:49 | HHI.PR ---
Subjective Remarks The patient has no acute complaints today. He is still pleasantly confused and only oriented to self. He has been eating and drinking well. Objective Vitals Vital Signs Date Time Temp Pulse Resp B/P Pulse Ox O2 Delivery O2 Flow Rate FiO2 11/25/15 08:08 96.0 78 17 148/94 96 11/25/15 04:30 97.0 71 20 140/84 99 11/25/15 00:00 96.9 75 15 123/74 96 11/24/15 20:00 97.6 81 18 115/71 98 11/24/15 16:00 96.8 78 19 115/72 96 11/24/15 11:54 96.0 80 17 84/57 97 93/58 I/O 11/24/15 11/24/15 11/24/15 11/25/15 11/25/15 11/25/15 07:00 15:00 23:00 07:00 15:00 23:00 Intake Total 0 ml 430 ml 400 ml 400 ml Balance 0 ml 430 ml 400 ml 400 ml Intake Oral 0 ml 430 ml 400 ml 400 ml # Voids 2 2 1 1 # Bowel Movements 1 0 1 0 Imaging Last Impressions Chest X-Ray 11/06/15 0000 Signed Impressions: Service Date/Time: Friday, November 06, 2015 11:35 - CONCLUSION: Compensated cardiomegaly, history of bypass otherwise negative. Superior most sternal wire is fractured. Didier Clay MD FACR Liver Ultrasound 10/30/15 0000 Signed Impressions: Service Date/Time: Friday, October 30, 2015 17:29 - CONCLUSION: 1. Cholelithiasis with probable gallbladder sludge and mild gallbladder distention. 2. Splenomegaly. Sameer Alexandra MD Modified Barium Swallow 10/27/15 0000 Signed Impressions: Service Date/Time: Tuesday, October 27, 2015 00:00 - CONCLUSION: Negative for penetration or aspiration. Please see speech pathology report. Tai Cohen MD Brain MRI 10/22/15 0000 Signed Impressions: Service Date/Time: September 14:38 - CONCLUSION: 1. No significant interval change is identified. There is stable restricted diffusion in the left basal ganglia representing an area of recent ischemia. There are no findings to indicate hemorrhagic transformation. The previously documented signal change within the right cerebral peduncle has nearly normalized. 2. Stable chronic white matter changes. Camacho Culp MD Neck Magnetic Resonance Angiography 10/21/15 Signed Impressions: Service Date/Time: Wednesday, October 21, 2015 12:52 - CONCLUSION: . 1. Unremarkable MRA of the carotid arteries bilaterally. 2. Nonspecific possible collateral vessels in the soft tissues posterior to the right vertebral artery. The right verbal artery appears to be patent. If clinically indicated, a CTA could be performed for further evaluation. Abiodun Hall MD Head Magnetic Resonance Angiography 10/21/15 Signed Impressions: Service Date/Time: Wednesday, October 21, 2015 12:52 - CONCLUSION: Unremarkable MRA of the brain. Abiodun Hall MD Head CT 10/15/152116 Signed Impressions: Service Date/Time: September 21:47 - CONCLUSION: 1. No evidence of hemorrhage or mass effect. 2. Lacunar infarct right thalamus, left basal ganglia and adjacent to the left lateral ventricular body. 3. No skull fracture seen. Daryl Varner MD Objective Remarks GENERAL: Well-developed well-nourished. In no acute distress. SKIN: Warm and dry. Left ankle with a superficial lesion with a clean dressing. HEENT: Normocephalic. Pupils equal and round. Mucous membranes pink and moist. CARDIOVASCULAR: Regular rate and rhythm. No murmur appreciated. RESPIRATORY: No accessory muscle use. Clear to auscultation. Breath sounds equal bilaterally. GASTROINTESTINAL: Abdomen soft, non-tender, nondistended. Bowel sounds x4. MUSCULOSKELETAL: Right BKA. No clubbing or cyanosis. No edema. NEUROLOGICAL: Awake and alert. No focal neurological deficits. Moves upper and lower extremities spontaneously. Normal speech. PSYCHIATRIC: Pleasantly confused mood and affect; insight and judgment poor. Procedures None A/P Problem List: (1) Cellulitis Status: Resolved (2) Ischemic cardiomyopathy Status: Chronic (3) Diabetes mellitus type 2 in obese Status: Chronic (4) S/P BKA (below knee amputation) unilateral Status: Chronic (5) Acute metabolic encephalopathy Status: Acute (6) Bacteremia Status: Resolved (7) Chronic systolic (congestive) heart failure Status: Chronic (8) Venous stasis ulcer of left lower extremity Status: Chronic (9) Shortness of breath Status: Chronic (10) CVA (cerebral vascular accident) Status: Acute Assessment and Plan 60-year-old male with - Sepsis. resolved. - Leukocytosis improved. Repeat chest x-ray with no acute findings. Repeat urinalysis negative. Status post clindamycin for aspiration - Cellulitis of the left lower ext. resolved. - with staph coag neg bacteremia in 4/4 tubes. Staph haemolyticus in aerobic tubes, with different sensitivities, contaminant likely. - Chronic venous stasis ulcers on the left lower ext. Clinically improved- cellulitis resolved. - wound cultures - MSSA, Serratia marcescens - Dr. Messina/ID ff; was on Keflex and Cipro for 10 days (vancomycin DCed) and completed 10/26. - Bilateral CVA:MRI showed acute cortical infarct. MRA of head and neck unremarkable. Neurology following. S/p ASA and Plavix. Continue with Statin, Coumadin and monitor INR/PT keep INR between 2 and 3. - Acute metabolic encephalopathy - baseline neuro status unknown but there is suspicion of chronic cognitive impairment/dementia. -CT head was unremarkable for any acute findings. -Mildly elevated NH3 level. Continue lactulose. Liver sonogram with gallstone and sludge -Consulted psychiatry who started Haldol and discontinued Geodon. Improving behavior discontinued restraints since 11/03/15 -Added Seroquel 50 mg at bedtime when necessary on 11/13. - Mild elevation of troponin without upward trend in the setting of CKD/CHF - No chest pain. Likely due to CKD/CHF. 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 Chronic, stable. Avoid nephrotoxins. Monitor BMP - Hypernatremia -stable - Metabolic acidosis due to CKD ; resolved - Cardiomyopathy/chronic systolic CHF LVEF 35% on echo 03/2015. Denies shortness of breath. Compensated. Ct Coreg 25mg BID and enalapril. Lasix IV as needed. -Cardiology following to consider AICD when patient is able to consent. Currently unable to consent. - Hypertension. Chronic, controlled. Continue enalapril and carvedilol - Diabetes mellitus: In August A1c 7.5. Levemir has been held since 11/01, discontinue. Patient has not required SSI for 3 days. Check hemoglobin A1c and consider discontinuing insulin. - PAD -stable. Continue above meds - Physical deconditioning: PT following. Out of bed to chair 3 times a day. Fall precautions - DVT prophylaxis with Coumadin Discussed with patient, RN, Dr. Carr Discharge Planning Patient is a difficult placement issue, discussed with case management Problem Qualifiers (1) Cellulitis: Lars Rich Nov 25, 2015 10:49 Bacilio Carr DO Nov 25, 2015 11:37
[2015-11-25 12:00] VITALS: BP 120/79; PULSE 77; RESP 18; TEMP 96.1; O2SAT 96
[2015-11-25 16:00] VITALS: BP 124/77; PULSE 76; RESP 18; TEMP 96.9; O2SAT 99
[2015-11-25] MEDS: WARFARIN SOD 4 MG TAB PO SCH (17:35)
[2015-11-25 18:44] LABS: HEMOGLOBIN A1b 0.8 %; HEMOGLOBIN LA1C 2.1 %; HEMOGLOBIN P3 4.2 %
[2015-11-25 20:28] VITALS: BP 144/95; PULSE 80; RESP 16; TEMP 98; O2SAT 93
[2015-11-26] VITALS: BP 112/75; PULSE 79; RESP 18; TEMP 97.8; O2SAT 97
[2015-11-26] MEDS: ISOSORBIDE MONONITRATE 60 MG TAB PO SCH (06:30)
[2015-11-26] MEDS: SODIUM CHLORIDE 0.9% FLUSH 5 ML FLUSH FLUSH SCH ×3 (09:00→21:00)
[2015-11-26 09:18] VITALS: BP 159/92; PULSE 76; RESP 18; TEMP 96.5; O2SAT 96
[2015-11-26] MEDS: DOCUSATE SODIUM 50 MG/SENNA 8.6 MG TAB PO SCH ×2 (09:27→22:24)
[2015-11-26] MEDS: ATORVASTATIN 80 MG TAB PO SCH (09:27)
[2015-11-26] MEDS: LACTULOSE SYRUP 20 GM/30 ML CUP PO SCH (09:28)
[2015-11-26] MEDS: HALOPERIDOL 5 MG TAB PO SCH ×2 (09:28→22:23)
[2015-11-26] MEDS: ENALAPRIL MALEATE 5 MG TAB PO SCH ×2 (09:28→22:24)
[2015-11-26] MEDS: POLYETHYLENE GLYCOL 17 GM PKG PO SCH (09:28)
[2015-11-26] MEDS: CARVEDILOL 12.5 MG TAB PO SCH ×2 (09:28→22:23)
[2015-11-26] MEDS: NYSTATIN 100,000 U/GM PWD 15 GM BTL TOPICAL SCH (09:42)
[2015-11-26 12:55] VITALS: BP 92/51; PULSE 75; RESP 18; TEMP 97.8; O2SAT 98
--- NOTE | 2015-11-26 15:17 | HHI.PR ---
Subjective Remarks Mr. Amado is doing well. No acute concerns. Tolerating diet well. No fever, chills. Objective Vitals Vital Signs Date Time Temp Pulse Resp B/P Pulse Ox O2 Delivery O2 Flow Rate FiO2 11/26/15 12:55 97.8 75 18 92/51 98 11/26/15 09:18 96.5 76 18 159/92 96 11/26/15 00:00 97.8 79 18 112/75 97 11/25/15 20:28 98.0 80 16 144/95 93 11/25/15 16:00 96.9 76 18 124/77 99 I/O 11/25/15 11/25/15 11/25/15 11/26/15 11/26/15 11/26/15 07:00 15:00 23:00 07:00 15:00 23:00 Intake Total 400 ml 480 ml 480 ml Output Total 400 ml Balance 400 ml 480 ml -400 ml 480 ml Intake Oral 400 ml 480 ml 480 ml Output Urine Total 400 ml # Voids 1 2 1 2 # Bowel Movements 0 0 1 Imaging Last Impressions Chest X-Ray 11/06/15 0000 Signed Impressions: Service Date/Time: Friday, November 06, 2015 11:35 - CONCLUSION: Compensated cardiomegaly, history of bypass otherwise negative. Superior most sternal wire is fractured. Didier Clay MD FACR Liver Ultrasound 10/30/15 0000 Signed Impressions: Service Date/Time: Friday, October 30, 2015 17:29 - CONCLUSION: 1. Cholelithiasis with probable gallbladder sludge and mild gallbladder distention. 2. Splenomegaly. Sameer Alexandra MD Modified Barium Swallow 10/27/15 0000 Signed Impressions: Service Date/Time: Tuesday, October 27, 2015 00:00 - CONCLUSION: Negative for penetration or aspiration. Please see speech pathology report. Tai Cohen MD Brain MRI 10/22/15 0000 Signed Impressions: Service Date/Time: September 14:38 - CONCLUSION: 1. No significant interval change is identified. There is stable restricted diffusion in the left basal ganglia representing an area of recent ischemia. There are no findings to indicate hemorrhagic transformation. The previously documented signal change within the right cerebral peduncle has nearly normalized. 2. Stable chronic white matter changes. Camacho Culp MD Neck Magnetic Resonance Angiography 10/21/15 0000 Signed Impressions: Service Date/Time: Wednesday, October 21, 2015 12:52 - CONCLUSION: . 1. Unremarkable MRA of the carotid arteries bilaterally. 2. Nonspecific possible collateral vessels in the soft tissues posterior to the right vertebral artery. The right verbal artery appears to be patent. If clinically indicated, a CTA could be performed for further evaluation. Abiodun Hall MD Head Magnetic Resonance Angiography 10/21/15 Signed Impressions: Service Date/Time: Wednesday, October 21, 2015 12:52 - CONCLUSION: Unremarkable MRA of the brain. Abiodun Hall MD Head CT 10/15/152116 Signed Impressions: Service Date/Time: September 21:47 - CONCLUSION: 1. No evidence of hemorrhage or mass effect. 2. Lacunar infarct right thalamus, left basal ganglia and adjacent to the left lateral ventricular body. 3. No skull fracture seen. Daryl Varner MD Objective Remarks GENERAL: Well-nourished, well-developed patient. Alert, oriented to person. SKIN: Warm and dry. HEAD: Normocephalic. EYES: No scleral icterus. No injection or drainage. NECK: Supple, trachea midline. No JVD or lymphadenopathy. CARDIOVASCULAR: Regular rate and rhythm without murmurs, gallops, or rubs. RESPIRATORY: Breath sounds equal bilaterally. No accessory muscle use. GASTROINTESTINAL: Abdomen soft, non-tender, nondistended. MUSCULOSKELETAL: No cyanosis, or edema. Right sided BKA. BACK: Nontender without obvious deformity. No CVA tenderness. Procedures None A/P Problem List: (1) Cellulitis Status: Resolved (2) Ischemic cardiomyopathy Status: Chronic (3) Diabetes mellitus type 2 in obese Status: Chronic (4) S/P BKA (below knee amputation) unilateral Status: Chronic (5) Acute metabolic encephalopathy Status: Acute (6) Bacteremia Status: Resolved (7) Chronic systolic (congestive) heart failure Status: Chronic (8) Venous stasis ulcer of left lower extremity Status: Chronic (9) Shortness of breath Status: Chronic (10) CVA (cerebral vascular accident) Status: Acute Assessment and Plan 60-year-old male with - Sepsis. resolved. - Leukocytosis improved. Repeat chest x-ray with no acute findings. Repeat urinalysis negative. Status post clindamycin for aspiration - Cellulitis of the left lower ext. resolved. - with staph coag neg bacteremia in 4/4 tubes. Staph haemolyticus in aerobic tubes, with different sensitivities, contaminant likely. - Chronic venous stasis ulcers on the left lower ext. Clinically improved- cellulitis resolved. - wound cultures - MSSA, Serratia marcescens - Dr. Messina/ID ff; was on Keflex and Cipro for 10 days (vancomycin DCed) and completed 10/26. - Bilateral CVA:MRI showed acute cortical infarct. MRA of head and neck unremarkable. Neurology following. S/p ASA and Plavix. Continue with Statin, Coumadin and monitor INR/PT keep INR between 2 and 3. - Acute metabolic encephalopathy - baseline neuro status unknown but there is suspicion of chronic cognitive impairment/dementia. -CT head was unremarkable for any acute findings. -Mildly elevated NH3 level. Continue lactulose. Liver sonogram with gallstone and sludge -Consulted psychiatry who started Haldol and discontinued Geodon. Improving behavior discontinued restraints since 11/03/15 -Added Seroquel 50 mg at bedtime when necessary on 11/13. - Mild elevation of troponin without upward trend in the setting of CKD - No chest pain. Likely due to CKD. - CKD stage 4 likely diabetic and from diuretics. Improving better than baseline creatinine 1.27. Avoid nephrotoxins. - Hypernatremia -stable - Metabolic acidosis due to CKD ; resolved - Cardiomyopathy/chronic systolic CHF LVEF 35% on echo 03/2015. Denies shortness of breath. Compensated. Ct Coreg 25mg BID and enalapril. Lasix IV as needed. -Cardiology following to consider AICD when patient is able to consent. Currently unable to consent. - Hypertension. Improving after increasing enalapril to 5 mg twice a day. - Diabetes mellitus A1c 7.5- cont long acting insulin Levemir 10 units sq HS, Novolog low SSI. Accu check controlled. - PAD -stable on NovoLog - Physical deconditioning: PT following. Out of bed to chair 3 times a day. Fall precautions - DVT prophylaxis with Coumadin Discharge Planning snf pending acceptance. DCF will be contacted again by CM today. Problem Qualifiers (1) Cellulitis: Bacilio Carr DO Nov 26, 2015 15:17
[2015-11-26] MEDS: WARFARIN SOD 4 MG TAB PO SCH (15:58)
[2015-11-26 16:00] VITALS: BP 131/85; PULSE 82; RESP 18; TEMP 96.7; O2SAT 100
[2015-11-26 20:23] VITALS: BP 149/97; PULSE 83; RESP 18; TEMP 96.8; O2SAT 98
[2015-11-27] VITALS (9 sets, daily range): BP systolic 86–162; BP diastolic 61–94; PULSE 72–77; RESP 16–20; TEMP 95.1–97.8; O2SAT 95–99
[2015-11-27] MEDS: ISOSORBIDE MONONITRATE 60 MG TAB PO SCH (06:38)
[2015-11-27] MEDS: DOCUSATE SODIUM 50 MG/SENNA 8.6 MG TAB PO SCH ×2 (09:00→23:35)
[2015-11-27] MEDS: LACTULOSE SYRUP 20 GM/30 ML CUP PO SCH (09:00)
[2015-11-27] MEDS: POLYETHYLENE GLYCOL 17 GM PKG PO SCH (09:00)
[2015-11-27] MEDS: SODIUM CHLORIDE 0.9% FLUSH 5 ML FLUSH FLUSH SCH ×2 (09:00→21:00)
[2015-11-27 09:03] LABS: INTERNATIONAL NORMALIZED RATIO 2.5 RATIO; PROTHROMBIN TIME - PATIENT 27.4 SEC (9.8-11.4)
[2015-11-27] MEDS: ATORVASTATIN 80 MG TAB PO SCH (09:07)
[2015-11-27] MEDS: ENALAPRIL MALEATE 5 MG TAB PO SCH ×2 (09:07→23:31)
[2015-11-27] MEDS: CARVEDILOL 12.5 MG TAB PO SCH ×2 (09:08→23:32)
[2015-11-27] MEDS: NYSTATIN 100,000 U/GM PWD 15 GM BTL TOPICAL SCH (09:08)
[2015-11-27] MEDS: HALOPERIDOL 5 MG TAB PO SCH ×2 (09:08→23:31)
--- NOTE | 2015-11-27 11:24 | HHI.PR ---
Subjective Remarks Mr. Amado is doing well. No acute concerns. Waiting for placement. Objective Vitals Vital Signs Date Time Temp Pulse Resp B/P Pulse Ox O2 Delivery O2 Flow Rate FiO2 11/27/15 08:27 96 11/27/15 08:00 96.5 72 19 156/92 97 11/27/15 04:56 95.3 73 19 142/88 95 11/27/15 01:41 16 154/84 98 11/27/15 00:43 97.8 77 20 162/94 97 11/26/15 20:23 96.8 83 18 149/97 98 11/26/15 16:00 96.7 82 18 131/85 100 11/26/15 12:55 97.8 75 18 92/51 98 I/O 11/26/15 11/26/15 11/26/15 11/27/15 11/27/15 11/27/15 07:00 15:00 23:00 07:00 15:00 23:00 Intake Total 480 ml Output Total 400 ml Balance -400 ml 480 ml Intake Oral 480 ml Output Urine Total 400 ml # Voids 2 1 0 # Bowel Movements 1 0 0 Objective Remarks GENERAL: Well-nourished, well-developed patient. Alert, oriented to person. SKIN: Warm and dry. HEAD: Normocephalic. EYES: No scleral icterus. No injection or drainage. NECK: Supple, trachea midline. No JVD or lymphadenopathy. CARDIOVASCULAR: Regular rate and rhythm without murmurs, gallops, or rubs. RESPIRATORY: Breath sounds equal bilaterally. No accessory muscle use. GASTROINTESTINAL: Abdomen soft, non-tender, nondistended. MUSCULOSKELETAL: No cyanosis, or edema. Right sided BKA. BACK: Nontender without obvious deformity. No CVA tenderness. Procedures None A/P Problem List: (1) Cellulitis Status: Resolved (2) Ischemic cardiomyopathy Status: Chronic (3) Diabetes mellitus type 2 in obese Status: Chronic (4) S/P BKA (below knee amputation) unilateral Status: Chronic (5) Acute metabolic encephalopathy Status: Acute (6) Bacteremia Status: Resolved (7) Chronic systolic (congestive) heart failure Status: Chronic (8) Venous stasis ulcer of left lower extremity Status: Chronic (9) Shortness of breath Status: Chronic (10) CVA (cerebral vascular accident) Status: Acute Assessment and Plan 60-year-old male with - Sepsis. resolved. - Leukocytosis improved. Repeat chest x-ray with no acute findings. Repeat urinalysis negative. Status post clindamycin for aspiration - Cellulitis of the left lower ext. resolved. - with staph coag neg bacteremia in 4/4 tubes. Staph haemolyticus in aerobic tubes, with different sensitivities, contaminant likely. - Chronic venous stasis ulcers on the left lower ext. Clinically improved- cellulitis resolved. - wound cultures - MSSA, Serratia marcescens - Dr. Messina/ID ff; was on Keflex and Cipro for 10 days (vancomycin DCed) and completed 10/26. - Bilateral CVA:MRI showed acute cortical infarct. MRA of head and neck unremarkable. Neurology following. S/p ASA and Plavix. Continue with Statin, Coumadin and monitor INR/PT keep INR between 2 and 3. - Acute metabolic encephalopathy - baseline neuro status unknown but there is suspicion of chronic cognitive impairment/dementia. -CT head was unremarkable for any acute findings. -Mildly elevated NH3 level. Continue lactulose. Liver sonogram with gallstone and sludge -Consulted psychiatry who started Haldol and discontinued Geodon. Improving behavior discontinued restraints since 11/03/15 -Added Seroquel 50 mg at bedtime when necessary on 11/13. - Mild elevation of troponin without upward trend in the setting of CKD - No chest pain. Likely due to CKD. - CKD stage 4 likely diabetic and from diuretics. Improving better than baseline creatinine 1.27. Avoid nephrotoxins. - Hypernatremia -stable - Metabolic acidosis due to CKD ; resolved - Cardiomyopathy/chronic systolic CHF LVEF 35% on echo 03/2015. Denies shortness of breath. Compensated. Ct Coreg 25mg BID and enalapril. Lasix IV as needed. -Cardiology following to consider AICD when patient is able to consent. Currently unable to consent. - Hypertension. Improving after increasing enalapril to 5 mg twice a day. - Diabetes mellitus A1c 7.5- cont long acting insulin Levemir 10 units sq HS, Novolog low SSI. Accu check controlled. - PAD -stable on NovoLog - Physical deconditioning: PT following. Out of bed to chair 3 times a day. Fall precautions - DVT prophylaxis with Coumadin Discharge Planning snf pending acceptance. DCF is involved. Problem Qualifiers (1) Cellulitis: Bacilio Carr DO Nov 27, 2015 11:24
[2015-11-27] MEDS: WARFARIN SOD 4 MG TAB PO SCH (16:11)
[2015-11-27] MEDS: DOCUSATE SODIUM 100 MG CAP PO PRN (23:31)
[2015-11-28] VITALS (7 sets, daily range): BP systolic 88–153; BP diastolic 66–90; PULSE 70–85; RESP 16–18; TEMP 96.4–97.8; O2SAT 96–100
[2015-11-28] MEDS: ISOSORBIDE MONONITRATE 60 MG TAB PO SCH (06:42)
[2015-11-28] MEDS: LACTULOSE SYRUP 20 GM/30 ML CUP PO SCH (09:00)
[2015-11-28] MEDS: NYSTATIN 100,000 U/GM PWD 15 GM BTL TOPICAL SCH (09:00)
[2015-11-28] MEDS: HALOPERIDOL 5 MG TAB PO SCH ×2 (09:00→20:28)
[2015-11-28] MEDS: POLYETHYLENE GLYCOL 17 GM PKG PO SCH (09:00)
[2015-11-28] MEDS: ATORVASTATIN 80 MG TAB PO SCH (09:50)
[2015-11-28] MEDS: ENALAPRIL MALEATE 5 MG TAB PO SCH ×2 (09:50→20:28)
[2015-11-28] MEDS: CARVEDILOL 12.5 MG TAB PO SCH ×2 (09:50→20:28)
[2015-11-28] MEDS: DOCUSATE SODIUM 50 MG/SENNA 8.6 MG TAB PO SCH ×2 (09:51→20:29)
[2015-11-28 11:03] LABS: INTERNATIONAL NORMALIZED RATIO 2.8 RATIO
--- NOTE | 2015-11-28 11:20 | HHI.PR ---
Subjective Remarks Mr. Amado reports no acute concerns. PT worked with patient today. He is tolerating diet well. Objective Vitals Vital Signs Date Time Temp Pulse Resp B/P Pulse Ox O2 Delivery O2 Flow Rate FiO2 11/28/15 08:09 96.5 75 18 135/87 96 11/28/15 04:00 96.4 71 18 139/88 97 11/28/15 01:02 73 18 142/90 97 11/28/15 00:00 96.8 81 11/27/15 21:10 96.1 73 18 149/92 98 11/27/15 20:00 96.1 77 18 149/92 98 11/27/15 16:22 95.5 74 20 104/65 97 11/27/15 12:10 95.1 75 20 86/61 99 I/O 11/27/15 11/27/15 11/27/15 11/28/15 11/28/15 11/28/15 07:00 15:00 23:00 07:00 15:00 23:00 Intake Total 270 ml 240 ml Balance 270 ml 240 ml Intake Oral 270 ml 240 ml # Voids 0 3 2 1 # Bowel Movements 0 1 1 Imaging Last Impressions Chest X-Ray 11/06/15 0000 Signed Impressions: Service Date/Time: Friday, November 06, 2015 11:35 - CONCLUSION: Compensated cardiomegaly, history of bypass otherwise negative. Superior most sternal wire is fractured. Didier Clay MD FACR Liver Ultrasound 10/30/15 0000 Signed Impressions: Service Date/Time: Friday, October 30, 2015 17:29 - CONCLUSION: 1. Cholelithiasis with probable gallbladder sludge and mild gallbladder distention. 2. Splenomegaly. Sameer Alexandra MD Modified Barium Swallow 10/27/15 0000 Signed Impressions: Service Date/Time: Tuesday, October 27, 2015 00:00 - CONCLUSION: Negative for penetration or aspiration. Please see speech pathology report. Tai Cohen MD Brain MRI 10/22/15 0000 Signed Impressions: Service Date/Time: September 14:38 - CONCLUSION: 1. No significant interval change is identified. There is stable restricted diffusion in the left basal ganglia representing an area of recent ischemia. There are no findings to indicate hemorrhagic transformation. The previously documented signal change within the right cerebral peduncle has nearly normalized. 2. Stable chronic white matter changes. Camacho Culp MD Neck Magnetic Resonance Angiography 10/21/15 Signed Impressions: Service Date/Time: Wednesday, October 21, 2015 12:52 - CONCLUSION: . 1. Unremarkable MRA of the carotid arteries bilaterally. 2. Nonspecific possible collateral vessels in the soft tissues posterior to the right vertebral artery. The right verbal artery appears to be patent. If clinically indicated, a CTA could be performed for further evaluation. Abiodun Hall MD Head Magnetic Resonance Angiography 10/21/15 Signed Impressions: Service Date/Time: Wednesday, October 21, 2015 12:52 - CONCLUSION: Unremarkable MRA of the brain. Abiodun Hall MD Head CT 10/15/152116 Signed Impressions: Service Date/Time: September 21:47 - CONCLUSION: 1. No evidence of hemorrhage or mass effect. 2. Lacunar infarct right thalamus, left basal ganglia and adjacent to the left lateral ventricular body. 3. No skull fracture seen. Daryl Varner MD Objective Remarks GENERAL: Well-nourished, well-developed patient. Alert, oriented to person. SKIN: Warm and dry. HEAD: Normocephalic. EYES: No scleral icterus. No injection or drainage. NECK: Supple, trachea midline. No JVD or lymphadenopathy. CARDIOVASCULAR: Regular rate and rhythm without murmurs, gallops, or rubs. RESPIRATORY: Breath sounds equal bilaterally. No accessory muscle use. GASTROINTESTINAL: Abdomen soft, non-tender, nondistended. MUSCULOSKELETAL: No cyanosis, or edema. Right sided BKA. BACK: Nontender without obvious deformity. No CVA tenderness. Procedures None A/P Problem List: (1) Cellulitis Status: Resolved (2) Ischemic cardiomyopathy Status: Chronic (3) Diabetes mellitus type 2 in obese Status: Chronic (4) S/P BKA (below knee amputation) unilateral Status: Chronic (5) Acute metabolic encephalopathy Status: Acute (6) Bacteremia Status: Resolved (7) Chronic systolic (congestive) heart failure Status: Chronic (8) Venous stasis ulcer of left lower extremity Status: Chronic (9) Shortness of breath Status: Chronic (10) CVA (cerebral vascular accident) Status: Acute Assessment and Plan 60-year-old male with - Sepsis. resolved. - Leukocytosis improved. Repeat chest x-ray with no acute findings. Repeat urinalysis negative. Status post clindamycin for aspiration - Cellulitis of the left lower ext. resolved. - with staph coag neg bacteremia in 4/4 tubes. Staph haemolyticus in aerobic tubes, with different sensitivities, contaminant likely. - Chronic venous stasis ulcers on the left lower ext. Clinically improved- cellulitis resolved. - wound cultures - MSSA, Serratia marcescens - Dr. Messina/TISHA ff; was on Keflex and Cipro for 10 days (vancomycin DCed) and completed 10/26. - Bilateral CVA:MRI showed acute cortical infarct. MRA of head and neck unremarkable. Neurology following. S/p ASA and Plavix. Continue with Statin, Coumadin and monitor INR/PT keep INR between 2 and 3. - Acute metabolic encephalopathy - baseline neuro status unknown but there is suspicion of chronic cognitive impairment/dementia. -CT head was unremarkable for any acute findings. -Mildly elevated NH3 level. Continue lactulose. Liver sonogram with gallstone and sludge -Consulted psychiatry who started Haldol and discontinued Geodon. Improving behavior discontinued restraints since 11/03/15 -Added Seroquel 50 mg at bedtime when necessary on 11/13. - Mild elevation of troponin without upward trend in the setting of CKD - No chest pain. Likely due to CKD. - Diabetic mellitus - Glucose was well controlled. We discontinued all insulin. - Will do BID accu-check. If needed, we will start low long acting insulin and sliding scale insulin. - CKD stage 4 likely diabetic and from diuretics. Improving better than baseline creatinine 1.27. Avoid nephrotoxins. - Hypernatremia -stable - Metabolic acidosis due to CKD ; resolved - Cardiomyopathy/chronic systolic CHF LVEF 35% on echo 03/2015. Denies shortness of breath. Compensated. Ct Coreg 25mg BID and enalapril. Lasix IV as needed. - Cardiology evaluated patient to consider AICD when patient is able to consent. Currently unable to consent. - Hypertension. Improving after increasing enalapril to 5 mg twice a day. - Physical deconditioning: PT following. Out of bed to chair 3 times a day. Fall precautions - DVT prophylaxis with Coumadin Discharge Planning snf pending acceptance. [facility] has been contacted to help with placement. Problem Qualifiers (1) Cellulitis: Bacilio Carr DO Nov 28, 2015 11:20
[2015-11-28] MEDS: WARFARIN SOD 3 MG TAB PO SCH (16:33)
[2015-11-28] MEDS: SODIUM CHLORIDE 0.9% FLUSH 5 ML FLUSH FLUSH SCH (20:29)
[2015-11-29] VITALS: BP_SYST 124; BP_SYST 145; BP_DIAS 65; BP_DIAS 86; PULSE 65; PULSE 73; RESP 18; TEMP 97.3; TEMP 97.5; O2SAT 96; O2SAT 99
[2015-11-29] MEDS: ISOSORBIDE MONONITRATE 60 MG TAB PO SCH (06:09)
[2015-11-29 08:06] VITALS: BP 143/76; PULSE 76; RESP 18; TEMP 96.7; O2SAT 96
[2015-11-29] MEDS: NYSTATIN 100,000 U/GM PWD 15 GM BTL TOPICAL SCH (09:00)
[2015-11-29] MEDS: POLYETHYLENE GLYCOL 17 GM PKG PO SCH (09:00)
--- NOTE | 2015-11-29 09:23 | HHI.PR ---
Subjective Remarks Mr. Amado is doing well. Has no acute concerns. Denies any fever, chills. Tolerating diet well. Objective Vitals Vital Signs Date Time Temp Pulse Resp B/P Pulse Ox O2 Delivery O2 Flow Rate FiO2 11/29/15 08:06 96.7 76 18 143/76 96 11/29/15 00:00 97.3 73 18 145/86 96 11/28/15 20:00 97.6 85 18 153/80 98 11/28/15 16:11 96.9 70 16 88/67 100 11/28/15 12:09 97.8 74 18 100/66 97 I/O 11/28/15 11/28/15 11/28/15 11/29/15 11/29/15 11/29/15 07:00 15:00 23:00 07:00 15:00 23:00 Intake Total 480 ml 240 ml 90 ml Balance 480 ml 240 ml 90 ml Intake Oral 480 ml 240 ml 90 ml # Voids 1 3 # Bowel Movements 0 Imaging Last Impressions Chest X-Ray 11/06/15 0000 Signed Impressions: Service Date/Time: Friday, November 06, 2015 11:35 - CONCLUSION: Compensated cardiomegaly, history of bypass otherwise negative. Superior most sternal wire is fractured. Didier Clay MD FACR Liver Ultrasound 10/30/15 0000 Signed Impressions: Service Date/Time: Friday, October 30, 2015 17:29 - CONCLUSION: 1. Cholelithiasis with probable gallbladder sludge and mild gallbladder distention. 2. Splenomegaly. Sameer Alexandra MD Modified Barium Swallow 10/27/15 0000 Signed Impressions: Service Date/Time: Tuesday, October 27, 2015 00:00 - CONCLUSION: Negative for penetration or aspiration. Please see speech pathology report. Tai Cohen MD Brain MRI 10/22/15 0000 Signed Impressions: Service Date/Time: September 14:38 - CONCLUSION: 1. No significant interval change is identified. There is stable restricted diffusion in the left basal ganglia representing an area of recent ischemia. There are no findings to indicate hemorrhagic transformation. The previously documented signal change within the right cerebral peduncle has nearly normalized. 2. Stable chronic white matter changes. Camacho Culp MD Neck Magnetic Resonance Angiography 10/21/15 0000 Signed Impressions: Service Date/Time: Wednesday, October 21, 2015 12:52 - CONCLUSION: . 1. Unremarkable MRA of the carotid arteries bilaterally. 2. Nonspecific possible collateral vessels in the soft tissues posterior to the right vertebral artery. The right verbal artery appears to be patent. If clinically indicated, a CTA could be performed for further evaluation. Abiodun Hall MD Head Magnetic Resonance Angiography 10/21/15 0000 Signed Impressions: Service Date/Time: Wednesday, October 21, 2015 12:52 - CONCLUSION: Unremarkable MRA of the brain. Abiodun Hall MD Head CT 10/15/152116 Signed Impressions: Service Date/Time: September 21:47 - CONCLUSION: 1. No evidence of hemorrhage or mass effect. 2. Lacunar infarct right thalamus, left basal ganglia and adjacent to the left lateral ventricular body. 3. No skull fracture seen. Daryl Varner MD Objective Remarks GENERAL: Well-nourished, well-developed patient. Alert, oriented to person. SKIN: Warm and dry. HEAD: Normocephalic. EYES: No scleral icterus. No injection or drainage. NECK: Supple, trachea midline. No JVD or lymphadenopathy. CARDIOVASCULAR: Regular rate and rhythm without murmurs, gallops, or rubs. RESPIRATORY: Breath sounds equal bilaterally. No accessory muscle use. GASTROINTESTINAL: Abdomen soft, non-tender, nondistended. MUSCULOSKELETAL: No cyanosis, or edema. Right sided BKA. BACK: Nontender without obvious deformity. No CVA tenderness. Procedures None A/P Problem List: (1) Cellulitis Status: Resolved (2) Ischemic cardiomyopathy Status: Chronic (3) Diabetes mellitus type 2 in obese Status: Chronic (4) S/P BKA (below knee amputation) unilateral Status: Chronic (5) Acute metabolic encephalopathy Status: Acute (6) Bacteremia Status: Resolved (7) Chronic systolic (congestive) heart failure Status: Chronic (8) Venous stasis ulcer of left lower extremity Status: Chronic (9) Shortness of breath Status: Chronic (10) CVA (cerebral vascular accident) Status: Acute Assessment and Plan 10/15/2015: Mr. Amado is a 60 year old male with a history of ischemic cardiomyopathy (EF 35-40%), CABG, stent placement who was found on the floor by family members and subsequently brought to the ED for altered mental status. - Sepsis. resolved. - Leukocytosis improved. Repeat chest x-ray with no acute findings. Repeat urinalysis negative. Status post clindamycin for aspiration - Cellulitis of the left lower ext. resolved. - with staph coag neg bacteremia in 4/4 tubes. Staph haemolyticus in aerobic tubes, with different sensitivities, contaminant likely. - Chronic venous stasis ulcers on the left lower ext. Clinically improved- cellulitis resolved. - wound cultures - MSSA, Serratia marcescens - Dr. Messina/TISHA ff; was on Keflex and Cipro for 10 days (vancomycin DCed) and completed 10/26. - Bilateral CVA:MRI showed acute cortical infarct. MRA of head and neck unremarkable. Neurology following. Was on ASA and Plavix. - Continue with Statin, Coumadin and monitor INR/PT keep INR between 2 and 3. - Acute metabolic encephalopathy - baseline neuro status unknown but there is suspicion of chronic cognitive impairment/dementia. -CT head was unremarkable for any acute findings. -Mildly elevated NH3 level. Continue lactulose. Liver sonogram with gallstone and sludge -Consulted psychiatry who started Haldol and discontinued Geodon. Improving behavior discontinued restraints since 11/03/15 -Added Seroquel 50 mg at bedtime when necessary on 11/13. - Mild elevation of troponin without upward trend in the setting of CKD - No chest pain. Likely due to CKD. - Diabetic mellitus - Glucose was well controlled. We discontinued all insulin. - Will do BID accu-check. If needed, we will start low long acting insulin and sliding scale insulin. - CKD stage 4 likely diabetic and from diuretics. Improving better than baseline creatinine 1.27. Avoid nephrotoxins. - Hypernatremia -stable - Metabolic acidosis due to CKD ; resolved - Cardiomyopathy/chronic systolic CHF LVEF 35% on echo 03/2015. Denies shortness of breath. Compensated. Continue Coreg 25mg BID and enalapril. - Cardiology evaluated patient to consider AICD when patient is able to consent. Currently unable to consent. - Hypertension. Improving after increasing enalapril to 5 mg twice a day. - Physical deconditioning: PT following. Out of bed to chair 3 times a day. Fall precautions - DVT prophylaxis with Coumadin Discharge Planning snf pending acceptance. [facility] has been contacted to help with placement. Problem Qualifiers (1) Cellulitis: Bacilio Carr DO Nov 29, 2015 09:23
[2015-11-29] MEDS: CARVEDILOL 12.5 MG TAB PO SCH ×2 (09:28→22:35)
[2015-11-29] MEDS: ATORVASTATIN 80 MG TAB PO SCH (09:28)
[2015-11-29] MEDS: DOCUSATE SODIUM 50 MG/SENNA 8.6 MG TAB PO SCH ×2 (09:29→22:36)
[2015-11-29] MEDS: LACTULOSE SYRUP 20 GM/30 ML CUP PO SCH (09:29)
[2015-11-29] MEDS: ENALAPRIL MALEATE 5 MG TAB PO SCH ×2 (09:34→21:00)
[2015-11-29] MEDS: HALOPERIDOL 5 MG TAB PO SCH ×2 (09:34→22:35)
[2015-11-29 09:44] LABS: AUTOMATED NEUTROPHIL # 9.8 TH/MM3 (1.8-7.7); BASOPHIL # 0.1 TH/MM3 (0-0.2); BASOPHIL % 0.4 % (0.0-2.0); EOSINOPHIL # 0.4 TH/MM3 (0-0.4); EOSINOPHIL % 2.9 % (0.0-4.0); HEMATOCRIT 38.8 % (39.0-51.0); HEMO FLAGS DIFF FINAL; LYMPH % 11.8 % (9.0-44.0); LYMPHOCYTE # 1.5 TH/MM3 (1.0-4.8); MEAN CELL VOLUME 80.7 FL (80.0-100.0); MEAN CORPUSCULAR HEMOGLOBIN 25.8 PG (27.0-34.0); MONO % 6.2 % (0.0-8.0); NEUT % 78.7 % (16.0-70.0); PLATELET COUNT 197 TH/MM3 (150-450); RED BLOOD COUNT 4.81 MIL/MM3 (4.50-5.90); RED CELL DISTRIBUTION WIDTH 16.3 % (11.6-17.2); WHITE BLOOD COUNT 12.4 TH/MM3 (4.0-11.0)
[2015-11-29 09:53] LABS: INTERNATIONAL NORMALIZED RATIO 3.1 RATIO; PROTHROMBIN TIME - PATIENT 34.9 SEC (9.8-11.4)
[2015-11-29 10:06] LABS: BICARBONATE 27.3 MEQ/L (21.0-32.0); POTASSIUM 4.3 MEQ/L (3.5-5.1)
[2015-11-29 12:09] VITALS: BP 71/50; PULSE 76; RESP 16; TEMP 96.2; O2SAT 97
[2015-11-29 16:11] VITALS: BP 85/58; PULSE 79; RESP 16; TEMP 96.3; O2SAT 99
[2015-11-29 20:00] VITALS: BP 128/82; PULSE 61; RESP 18; TEMP 97.9; O2SAT 96
[2015-11-29] MEDS: SODIUM CHLORIDE 0.9% FLUSH 5 ML FLUSH FLUSH SCH (21:00)
[2015-11-30] VITALS: BP 124/65; PULSE 65; RESP 18; TEMP 97.5; O2SAT 96
[2015-11-30 04:00] VITALS: BP 123/57; PULSE 58; RESP 18; TEMP 97; O2SAT 97
[2015-11-30] MEDS: ISOSORBIDE MONONITRATE 60 MG TAB PO SCH (06:36)
[2015-11-30 07:59] LABS: INTERNATIONAL NORMALIZED RATIO 2.7 RATIO; PROTHROMBIN TIME - PATIENT 29.7 SEC (9.8-11.4)
[2015-11-30] MEDS: POLYETHYLENE GLYCOL 17 GM PKG PO SCH (08:19)
[2015-11-30] MEDS: CARVEDILOL 12.5 MG TAB PO SCH ×2 (08:19→20:51)
[2015-11-30] MEDS: ENALAPRIL MALEATE 5 MG TAB PO SCH ×2 (08:19→20:52)
[2015-11-30] MEDS: ATORVASTATIN 80 MG TAB PO SCH (08:19)
[2015-11-30] MEDS: DOCUSATE SODIUM 50 MG/SENNA 8.6 MG TAB PO SCH ×2 (08:19→20:51)
[2015-11-30] MEDS: HALOPERIDOL 5 MG TAB PO SCH ×2 (08:19→20:52)
[2015-11-30] MEDS: LACTULOSE SYRUP 20 GM/30 ML CUP PO SCH (08:20)
[2015-11-30 08:31] VITALS: BP 147/85; PULSE 78; RESP 18; TEMP 96.8; O2SAT 97
[2015-11-30] MEDS: NYSTATIN 100,000 U/GM PWD 15 GM BTL TOPICAL SCH (09:00)
[2015-11-30 11:55] VITALS: BP 84/50; PULSE 77; RESP 18; TEMP 97.1; O2SAT 96
--- NOTE | 2015-11-30 15:12 | HHI.PR ---
Subjective Remarks The pt was resting comfortably in bed. No acute complaints. No concerns from nursing. Objective Vitals Vital Signs Date Time Temp Pulse Resp B/P Pulse Ox O2 Delivery O2 Flow Rate FiO2 11/30/15 11:55 97.1 77 18 84/50 96 11/30/15 08:31 96.8 78 18 147/85 97 11/30/15 04:00 97.0 58 18 123/57 97 11/30/15 00:00 97.5 65 18 124/65 96 11/29/15 20:00 97.9 61 18 128/82 96 11/29/15 16:11 96.3 79 16 85/58 99 I/O 11/29/15 11/29/15 11/29/15 11/30/15 11/30/15 11/30/15 07:00 15:00 23:00 07:00 15:00 23:00 Intake Total 90 ml 360 ml 120 ml Balance 90 ml 360 ml 120 ml Intake Oral 90 ml 360 ml 120 ml # Voids 3 3 3 # Bowel Movements 0 1 Result Diagram: 11/29/15 0842 11/29/15 0842 Imaging Last Impressions Chest X-Ray 11/06/15 0000 Signed Impressions: Service Date/Time: Friday, November 06, 2015 11:35 - CONCLUSION: Compensated cardiomegaly, history of bypass otherwise negative. Superior most sternal wire is fractured. Didier Clay MD FACR Liver Ultrasound 10/30/15 0000 Signed Impressions: Service Date/Time: Friday, October 30, 2015 17:29 - CONCLUSION: 1. Cholelithiasis with probable gallbladder sludge and mild gallbladder distention. 2. Splenomegaly. Sameer Alexandra MD Modified Barium Swallow 10/27/15 0000 Signed Impressions: Service Date/Time: Tuesday, October 27, 2015 00:00 - CONCLUSION: Negative for penetration or aspiration. Please see speech pathology report. Tai Cohen MD Brain MRI 10/22/15 0000 Signed Impressions: Service Date/Time: September 14:38 - CONCLUSION: 1. No significant interval change is identified. There is stable restricted diffusion in the left basal ganglia representing an area of recent ischemia. There are no findings to indicate hemorrhagic transformation. The previously documented signal change within the right cerebral peduncle has nearly normalized. 2. Stable chronic white matter changes. Camacho Culp MD Neck Magnetic Resonance Angiography 10/21/15 0000 Signed Impressions: Service Date/Time: Wednesday, October 21, 2015 12:52 - CONCLUSION: . 1. Unremarkable MRA of the carotid arteries bilaterally. 2. Nonspecific possible collateral vessels in the soft tissues posterior to the right vertebral artery. The right verbal artery appears to be patent. If clinically indicated, a CTA could be performed for further evaluation. Abiodun Hall MD Head Magnetic Resonance Angiography 10/21/15 0000 Signed Impressions: Service Date/Time: Wednesday, October 21, 2015 12:52 - CONCLUSION: Unremarkable MRA of the brain. Abiodun Hall MD Head CT 10/15/152116 Signed Impressions: Service Date/Time: September 21:47 - CONCLUSION: 1. No evidence of hemorrhage or mass effect. 2. Lacunar infarct right thalamus, left basal ganglia and adjacent to the left lateral ventricular body. 3. No skull fracture seen. Daryl Varner MD Objective Remarks GENERAL: Well-nourished, well-developed patient. Alert, oriented to person. SKIN: Warm and dry. HEAD: Normocephalic. EYES: No scleral icterus. No injection or drainage. NECK: Supple, trachea midline. No JVD or lymphadenopathy. CARDIOVASCULAR: Regular rate and rhythm without murmurs, gallops, or rubs. RESPIRATORY: Breath sounds equal bilaterally. No accessory muscle use. GASTROINTESTINAL: Abdomen soft, non-tender, nondistended. MUSCULOSKELETAL: No cyanosis, or edema. Right sided BKA. BACK: Nontender without obvious deformity. No CVA tenderness. Procedures None Medications and IVs Current Medications Medications (Trade) Dose Ordered Sig/Estuardo Route Start Time Stop Time Status Last Admin (NS Flush) 2 ml UNSCH PRN FLUSH 10/15/15 23:30 (NS Flush) 2 ml BID FLUSH 10/16/15 09:00 11/25/15 09:26 (Zofran Inj) 4 mg Q6H PRN IVP 10/15/15 23:30 (Dulcolax Supp) 10 mg DAILY PRN LA 10/15/15 23:30 11/04/15 13:56 (Narcan Inj) 0.4 mg UNSCH PRN IV 10/15/15 23:30 (Lipitor) 80 mg DAILY PO 10/16/15 09:00 11/30/15 08:19 (Imdur) 60 mg DAILY@07 PO 10/16/15 07:00 11/30/15 06:36 Phenol 2 spray 2 spray Q2H PRN MT 10/29/15 12:00 (Coumadin Consult Pharmacy) 0 ml @ 0 mls/hr UNSCH XX 10/30/15 05:30 (Tylenol) 650 mg Q4H PRN PO 10/30/15 05:30 (Colace) 100 mg BID PRN PO 10/30/15 05:30 11/27/15 23:31 (Tums Chew) 1,000 mg TID PRN CHEW 10/30/15 05:30 (Catapres) 0.1 mg Q6H PRN PO 10/30/15 05:30 11/07/15 06:04 (Mycostatin Powder) 1 applic DAILY TOPICAL 10/31/15 18:00 11/29/15 09:00 ([place]dee-Colace) 2 tab BID PO 11/03/15 09:00 11/30/15 08:19 (Lactulose Liq) 30 ml TID PRN PO 11/03/15 05:45 (Lactulose Liq) 30 ml DAILY PO 11/04/15 09:00 11/30/15 08:20 (Miralax) 17 gm DAILY PO 11/04/15 09:00 11/30/15 08:19 (SEROquel) 50 mg HS PRN PO 11/14/15 18:45 11/23/15 22:37 (Haldol) 5 mg BID PO 11/19/15 21:00 11/30/15 08:19 (Haldol Inj) 2 mg Q8H PRN IM 11/19/15 10:45 11/22/15 15:53 (Coreg) 25 mg BID PO 11/21/15 11:16 11/30/15 08:19 (Vasotec) 5 mg BID PO 11/21/15 11:17 11/30/15 08:19 (Coumadin) 3 mg DAILY@1600 PO 11/28/15 16:00 11/28/15 16:33 A/P Problem List: (1) Cellulitis Status: Resolved (2) Ischemic cardiomyopathy Status: Chronic (3) Diabetes mellitus type 2 in obese Status: Chronic (4) S/P BKA (below knee amputation) unilateral Status: Chronic (5) Acute metabolic encephalopathy Status: Acute (6) Bacteremia Status: Resolved (7) Chronic systolic (congestive) heart failure Status: Chronic (8) Venous stasis ulcer of left lower extremity Status: Chronic (9) Shortness of breath Status: Chronic (10) CVA (cerebral vascular accident) Status: Acute Assessment and Plan 10/15/2015: Mr. Amado is a 60 year old male with a history of ischemic cardiomyopathy (EF 35-40%), CABG, stent placement who was found on the floor by family members and subsequently brought to the ED for altered mental status. - Sepsis. resolved. - Leukocytosis improved. Repeat chest x-ray with no acute findings. Repeat urinalysis negative. Status post clindamycin for aspiration - Cellulitis of the left lower ext. resolved. - with staph coag neg bacteremia in 4/4 tubes. Staph haemolyticus in aerobic tubes, with different sensitivities, contaminant likely. - Chronic venous stasis ulcers on the left lower ext. Clinically improved- cellulitis resolved. - wound cultures - MSSA, Serratia marcescens - Dr. Messina/ID ff; was on Keflex and Cipro for 10 days (vancomycin DCed) and completed 10/26. - Bilateral CVA:MRI showed acute cortical infarct. MRA of head and neck unremarkable. Neurology following. Was on ASA and Plavix. - Continue with Statin, Coumadin and monitor INR/PT keep INR between 2 and 3. - Acute metabolic encephalopathy - baseline neuro status unknown but there is suspicion of chronic cognitive impairment/dementia. -CT head was unremarkable for any acute findings. -Mildly elevated NH3 level. Continue lactulose. Liver sonogram with gallstone and sludge -Consulted psychiatry who started Haldol and discontinued Geodon. Improving behavior discontinued restraints since 11/03/15 -Added Seroquel 50 mg at bedtime when necessary on 11/13. - Mild elevation of troponin without upward trend in the setting of CKD - No chest pain. Likely due to CKD. - Diabetic mellitus - Glucose was well controlled. We discontinued all insulin. - Will do BID accu-check. If needed, we will start low long acting insulin and sliding scale insulin. - CKD stage 4 likely diabetic and from diuretics. Improving better than baseline creatinine 1.27. Avoid nephrotoxins. - Hypernatremia -stable - Metabolic acidosis due to CKD ; resolved - Cardiomyopathy/chronic systolic CHF LVEF 35% on echo 03/2015. Denies shortness of breath. Compensated. Continue Coreg 25mg BID and enalapril. - Cardiology evaluated patient to consider AICD when patient is able to consent. Currently unable to consent. - Hypertension. Improving after increasing enalapril to 5 mg twice a day. - Physical deconditioning: PT following. Out of bed to chair 3 times a day. Fall precautions - DVT prophylaxis with Coumadin Discharge Planning Awaiting clinical improvement. Problem Qualifiers (1) Cellulitis: Thiago Parada DO Nov 30, 2015 15:12
[2015-11-30 16:31] VITALS: BP 130/80; PULSE 78; RESP 18; TEMP 96.9; O2SAT 94
[2015-11-30 20:03] VITALS: BP 145/86; PULSE 76; RESP 20; TEMP 98.2; O2SAT 99
[2015-11-30] MEDS: SODIUM CHLORIDE 0.9% FLUSH 5 ML FLUSH FLUSH SCH (20:53)
[2015-12-01 00:54] VITALS: BP 147/83; PULSE 69; RESP 20; TEMP 97.8; O2SAT 94
[2015-12-01] MEDS: ISOSORBIDE MONONITRATE 60 MG TAB PO SCH (06:09)
[2015-12-01 07:51] LABS: INTERNATIONAL NORMALIZED RATIO 2.3 RATIO; PROTHROMBIN TIME - PATIENT 24.8 SEC (9.8-11.4)
[2015-12-01 07:55] VITALS: BP 123/84; PULSE 70; RESP 17; TEMP 97.6; O2SAT 96
[2015-12-01] MEDS: HALOPERIDOL 5 MG TAB PO SCH ×2 (09:00→21:38)
[2015-12-01] MEDS: ENALAPRIL MALEATE 5 MG TAB PO SCH ×2 (09:00→21:00)
[2015-12-01] MEDS: POLYETHYLENE GLYCOL 17 GM PKG PO SCH (09:00)
[2015-12-01] MEDS: SODIUM CHLORIDE 0.9% FLUSH 5 ML FLUSH FLUSH SCH ×2 (09:00→21:00)
[2015-12-01] MEDS: LACTULOSE SYRUP 20 GM/30 ML CUP PO SCH (09:44)
[2015-12-01] MEDS: DOCUSATE SODIUM 50 MG/SENNA 8.6 MG TAB PO SCH ×2 (09:45→21:37)
[2015-12-01] MEDS: CARVEDILOL 12.5 MG TAB PO SCH ×2 (09:45→21:37)
[2015-12-01] MEDS: ATORVASTATIN 80 MG TAB PO SCH (09:45)
--- NOTE | 2015-12-01 11:52 | HHI.PR ---
Subjective Remarks The pt was sitting out in the nursing station. No complaints other than a stiff neck. He says he has been having bowel movements. Objective Vitals Vital Signs Date Time Temp Pulse Resp B/P Pulse Ox O2 Delivery O2 Flow Rate FiO2 12/01/15 07:55 97.6 70 17 123/84 96 12/01/15 00:54 97.8 69 20 147/83 94 11/30/15 20:03 98.2 76 20 145/86 99 11/30/15 16:31 96.9 78 18 130/80 94 11/30/15 11:55 97.1 77 18 84/50 96 I/O 11/30/15 11/30/15 11/30/15 12/01/15 12/01/15 12/01/15 07:00 15:00 23:00 07:00 15:00 23:00 Intake Total 120 ml Balance 120 ml Intake Oral 120 ml # Voids 3 3 # Bowel Movements 1 Result Diagram: 11/29/15 0842 11/29/15 0842 Imaging Last Impressions Chest X-Ray 11/06/15 0000 Signed Impressions: Service Date/Time: Friday, November 06, 2015 11:35 - CONCLUSION: Compensated cardiomegaly, history of bypass otherwise negative. Superior most sternal wire is fractured. Didier Clay MD FACR Liver Ultrasound 10/30/15 0000 Signed Impressions: Service Date/Time: Friday, October 30, 2015 17:29 - CONCLUSION: 1. Cholelithiasis with probable gallbladder sludge and mild gallbladder distention. 2. Splenomegaly. Sameer Alexandra MD Modified Barium Swallow 10/27/15 0000 Signed Impressions: Service Date/Time: Tuesday, October 27, 2015 00:00 - CONCLUSION: Negative for penetration or aspiration. Please see speech pathology report. Tai Cohen MD Brain MRI 10/22/15 0000 Signed Impressions: Service Date/Time: September 14:38 - CONCLUSION: 1. No significant interval change is identified. There is stable restricted diffusion in the left basal ganglia representing an area of recent ischemia. There are no findings to indicate hemorrhagic transformation. The previously documented signal change within the right cerebral peduncle has nearly normalized. 2. Stable chronic white matter changes. Camacho Culp MD Neck Magnetic Resonance Angiography 10/21/15 0000 Signed Impressions: Service Date/Time: Wednesday, October 21, 2015 12:52 - CONCLUSION: . 1. Unremarkable MRA of the carotid arteries bilaterally. 2. Nonspecific possible collateral vessels in the soft tissues posterior to the right vertebral artery. The right verbal artery appears to be patent. If clinically indicated, a CTA could be performed for further evaluation. Abiodun Hall MD Head Magnetic Resonance Angiography 10/21/15 0000 Signed Impressions: Service Date/Time: Wednesday, October 21, 2015 12:52 - CONCLUSION: Unremarkable MRA of the brain. Abiodun Hall MD Head CT 10/15/152116 Signed Impressions: Service Date/Time: September 21:47 - CONCLUSION: 1. No evidence of hemorrhage or mass effect. 2. Lacunar infarct right thalamus, left basal ganglia and adjacent to the left lateral ventricular body. 3. No skull fracture seen. Daryl Varner MD Objective Remarks GENERAL: Well-nourished, well-developed patient. Alert, oriented to person. SKIN: Warm and dry. HEAD: Normocephalic. EYES: No scleral icterus. No injection or drainage. NECK: Supple, trachea midline. No JVD or lymphadenopathy. CARDIOVASCULAR: Regular rate and rhythm without murmurs, gallops, or rubs. RESPIRATORY: Breath sounds equal bilaterally. No accessory muscle use. GASTROINTESTINAL: Abdomen soft, non-tender, nondistended. MUSCULOSKELETAL: No cyanosis, or edema. Right sided BKA. BACK: Nontender without obvious deformity. No CVA tenderness. Procedures None Medications and IVs Current Medications Medications (Trade) Dose Ordered Sig/Estuardo Route Start Time Stop Time Status Last Admin (NS Flush) 2 ml UNSCH PRN FLUSH 10/15/15 23:30 (NS Flush) 2 ml BID FLUSH 10/16/15 09:00 11/25/15 09:26 (Zofran Inj) 4 mg Q6H PRN IVP 10/15/15 23:30 (Dulcolax Supp) 10 mg DAILY PRN NM 10/15/15 23:30 11/04/15 13:56 (Narcan Inj) 0.4 mg UNSCH PRN IV 10/15/15 23:30 (Lipitor) 80 mg DAILY PO 10/16/15 09:00 8/2/16 09:45 (Imdur) 60 mg DAILY@07 PO 10/16/15 07:00 12/01/15 06:09 Phenol 2 spray 2 spray Q2H PRN MT 10/29/15 12:00 (Coumadin Consult Pharmacy) 0 ml @ 0 mls/hr UNSCH XX 10/30/15 05:30 (Tylenol) 650 mg Q4H PRN PO 10/30/15 05:30 (Colace) 100 mg BID PRN PO 10/30/15 05:30 11/27/15 23:31 (Tums Chew) 1,000 mg TID PRN CHEW 10/30/15 05:30 (Catapres) 0.1 mg Q6H PRN PO 10/30/15 05:30 11/07/15 06:04 (Mycostatin Powder) 1 applic DAILY TOPICAL 10/31/15 18:00 11/30/15 09:00 (Haydee-Colace) 2 tab BID PO 11/03/15 09:00 12/01/15 09:45 (Lactulose Liq) 30 ml TID PRN PO 11/03/15 05:45 (Lactulose Liq) 30 ml DAILY PO 11/04/15 09:00 12/01/15 09:44 (Miralax) 17 gm DAILY PO 11/04/15 09:00 11/30/15 08:19 (SEROquel) 50 mg HS PRN PO 11/14/15 18:45 11/23/15 22:37 (Haldol) 5 mg BID PO 11/19/15 21:00 12/01/15 09:00 (Haldol Inj) 2 mg Q8H PRN IM 11/19/15 10:45 11/22/15 15:53 (Coreg) 25 mg BID PO 11/21/15 11:16 12/01/15 09:45 (Vasotec) 5 mg BID PO 11/21/15 11:17 12/01/15 09:00 (Coumadin) 3 mg DAILY@1600 PO 11/28/15 16:00 11/28/15 16:33 A/P Problem List: (1) Cellulitis Status: Resolved (2) Ischemic cardiomyopathy Status: Chronic (3) Diabetes mellitus type 2 in obese Status: Chronic (4) S/P BKA (below knee amputation) unilateral Status: Chronic (5) Acute metabolic encephalopathy Status: Acute (6) Bacteremia Status: Resolved (7) Chronic systolic (congestive) heart failure Status: Chronic (8) Venous stasis ulcer of left lower extremity Status: Chronic (9) Shortness of breath Status: Chronic (10) CVA (cerebral vascular accident) Status: Acute Assessment and Plan 10/15/2015: Mr. Amado is a 60 year old male with a history of ischemic cardiomyopathy (EF 35-40%), CABG, stent placement who was found on the floor by family members and subsequently brought to the ED for altered mental status. - Sepsis. resolved. - Leukocytosis improved. Repeat chest x-ray with no acute findings. Repeat urinalysis negative. Status post clindamycin for aspiration - Cellulitis of the left lower ext. resolved. - with staph coag neg bacteremia in 4/4 tubes. Staph haemolyticus in aerobic tubes, with different sensitivities, contaminant likely. - Chronic venous stasis ulcers on the left lower ext. Clinically improved- cellulitis resolved. - wound cultures - MSSA, Serratia marcescens - Dr. Messina/TISHA ff; was on Keflex and Cipro for 10 days (vancomycin DCed) and completed 10/26. - Bilateral CVA:MRI showed acute cortical infarct. MRA of head and neck unremarkable. Neurology following. Was on ASA and Plavix. - Continue with Statin, Coumadin and monitor INR/PT keep INR between 2 and 3. - Acute metabolic encephalopathy - baseline neuro status unknown but there is suspicion of chronic cognitive impairment/dementia. -CT head was unremarkable for any acute findings. -Mildly elevated NH3 level. Continue lactulose. Liver sonogram with gallstone and sludge -Consulted psychiatry who started Haldol and discontinued Geodon. Improving behavior discontinued restraints since 11/03/15 -Added Seroquel 50 mg at bedtime when necessary on 11/13. - Mild elevation of troponin without upward trend in the setting of CKD - No chest pain. Likely due to CKD. - Diabetic mellitus - Glucose was well controlled. We discontinued all insulin. - Will do BID accu-check. If needed, we will start low long acting insulin and sliding scale insulin. - CKD stage 4 likely diabetic and from diuretics. Improving better than baseline creatinine 1.27. Avoid nephrotoxins. - Hypernatremia -stable - Metabolic acidosis due to CKD ; resolved - Cardiomyopathy/chronic systolic CHF LVEF 35% on echo 03/2015. Denies shortness of breath. Compensated. Continue Coreg 25mg BID and enalapril. - Cardiology evaluated patient to consider AICD when patient is able to consent. Currently unable to consent. - Hypertension. Improving after increasing enalapril to 5 mg twice a day. - Physical deconditioning: PT following. Out of bed to chair 3 times a day. Fall precautions - DVT prophylaxis with Coumadin Discharge Planning Awaiting clinical improvement. Problem Qualifiers (1) Cellulitis: Thiago Parada DO Dec 01, 2015 11:52
[2015-12-01 12:00] VITALS: BP_SYST 84; BP_SYST 95; BP_DIAS 51; BP_DIAS 54; PULSE 84; RESP 18; TEMP 96.5; O2SAT 94
[2015-12-01 16:00] VITALS: BP 145/90; PULSE 80; RESP 16; TEMP 96.8; O2SAT 97
[2015-12-01] MEDS: WARFARIN SOD 3 MG TAB PO SCH ×2 (17:38→17:42)
[2015-12-01] MEDS: NYSTATIN 100,000 U/GM PWD 15 GM BTL TOPICAL SCH (17:40)
[2015-12-01 20:46] VITALS: BP 133/76; PULSE 84; RESP 20; TEMP 96; O2SAT 94
[2015-12-02] VITALS: BP 136/86; PULSE 76; RESP 20; TEMP 96.9; O2SAT 99
[2015-12-02 04:25] VITALS: BP 135/87; PULSE 75; RESP 20; TEMP 96.3; O2SAT 97
[2015-12-02] MEDS: ISOSORBIDE MONONITRATE 60 MG TAB PO SCH (06:21)
[2015-12-02 08:00] VITALS: BP 165/102; PULSE 77; RESP 16; TEMP 97.3; O2SAT 95
[2015-12-02] MEDS: POLYETHYLENE GLYCOL 17 GM PKG PO SCH (08:52)
[2015-12-02] MEDS: ATORVASTATIN 80 MG TAB PO SCH (08:52)
[2015-12-02] MEDS: CARVEDILOL 12.5 MG TAB PO SCH ×2 (08:52→20:06)
[2015-12-02] MEDS: LACTULOSE SYRUP 20 GM/30 ML CUP PO SCH (08:52)
[2015-12-02] MEDS: DOCUSATE SODIUM 50 MG/SENNA 8.6 MG TAB PO SCH ×2 (08:52→20:06)
[2015-12-02] MEDS: HALOPERIDOL 5 MG TAB PO SCH ×2 (08:52→20:07)
[2015-12-02] MEDS: SODIUM CHLORIDE 0.9% FLUSH 5 ML FLUSH FLUSH SCH ×2 (08:53→20:07)
[2015-12-02] MEDS: ENALAPRIL MALEATE 5 MG TAB PO SCH ×2 (08:53→20:07)
[2015-12-02] MEDS: NYSTATIN 100,000 U/GM PWD 15 GM BTL TOPICAL SCH (08:56)
[2015-12-02 09:31] LABS: INTERNATIONAL NORMALIZED RATIO 2.2 RATIO; PROTHROMBIN TIME - PATIENT 23.7 SEC (9.8-11.4)
--- NOTE | 2015-12-02 11:02 | HHI.PR ---
Subjective Remarks Mr. Amado is a 60 year old male with a history of ischemic cardiomyopathy (EF 35-40%), CABG, stent placement who was found on the floor by family members and subsequently brought to the ED for altered mental status. 12/02/15 -Patient seen and examined. He was seen by the nursing station. No acute event overnight. Currently afebrile. Objective Vitals Vital Signs Date Time Temp Pulse Resp B/P Pulse Ox O2 Delivery O2 Flow Rate FiO2 12/02/15 08:00 97.3 77 16 165/102 95 12/02/15 04:25 96.3 75 20 135/87 97 12/02/15 00:00 96.9 76 20 136/86 99 12/01/15 20:46 96.0 84 20 133/76 94 12/01/15 16:00 96.8 80 16 145/90 97 12/01/15 12:00 96.5 84 18 95/51 94 84/54 I/O 12/01/15 12/01/15 12/01/15 12/02/15 12/02/15 12/02/15 06:59 14:59 22:59 06:59 14:59 22:59 Intake Total 240 ml 240 ml Balance 240 ml 240 ml Intake Oral 240 ml 240 ml # Voids 3 1 0 # Bowel Movements 0 1 0 Result Diagram: 11/29/15 0842 11/29/15 0842 Imaging Last Impressions Chest X-Ray 11/06/15 0000 Signed Impressions: Service Date/Time: Friday, November 06, 2015 11:35 - CONCLUSION: Compensated cardiomegaly, history of bypass otherwise negative. Superior most sternal wire is fractured. Didier lCay MD FACR Liver Ultrasound 10/30/15 0000 Signed Impressions: Service Date/Time: Friday, October 30, 2015 17:29 - CONCLUSION: 1. Cholelithiasis with probable gallbladder sludge and mild gallbladder distention. 2. Splenomegaly. Sameer Alexandra MD Modified Barium Swallow 10/27/15 0000 Signed Impressions: Service Date/Time: Tuesday, October 27, 2015 00:00 - CONCLUSION: Negative for penetration or aspiration. Please see speech pathology report. Tai Cohen MD Brain MRI 10/22/15 0000 Signed Impressions: Service Date/Time: September 14:38 - CONCLUSION: 1. No significant interval change is identified. There is stable restricted diffusion in the left basal ganglia representing an area of recent ischemia. There are no findings to indicate hemorrhagic transformation. The previously documented signal change within the right cerebral peduncle has nearly normalized. 2. Stable chronic white matter changes. Camacho Culp MD Neck Magnetic Resonance Angiography 10/21/15 0000 Signed Impressions: Service Date/Time: Wednesday, October 21, 2015 12:52 - CONCLUSION: . 1. Unremarkable MRA of the carotid arteries bilaterally. 2. Nonspecific possible collateral vessels in the soft tissues posterior to the right vertebral artery. The right verbal artery appears to be patent. If clinically indicated, a CTA could be performed for further evaluation. Abiodun Hall MD Head Magnetic Resonance Angiography 10/21/15 0000 Signed Impressions: Service Date/Time: Wednesday, October 21, 2015 12:52 - CONCLUSION: Unremarkable MRA of the brain. Abiodun Hall MD Head CT 10/15/152116 Signed Impressions: Service Date/Time: September 21:47 - CONCLUSION: 1. No evidence of hemorrhage or mass effect. 2. Lacunar infarct right thalamus, left basal ganglia and adjacent to the left lateral ventricular body. 3. No skull fracture seen. Daryl Varner MD Objective Remarks GENERAL: Well-nourished, well-developed patient. EYES: No scleral icterus. No injection or drainage. NECK: Supple, trachea midline. No JVD or lymphadenopathy. CARDIOVASCULAR: Regular rate and rhythm without murmurs RESPIRATORY: Breath sounds equal bilaterally. No wheezing GASTROINTESTINAL: Abdomen soft, non-tender, nondistended. EXTREMITIES: No cyanosis, or edema. s/p right BKA. LLE with 1+ edema, several shallow venous stasis ulcerations on anterior calve, no cellulitis. BACK: Nontender without obvious deformity. No CVA tenderness. Procedures None A/P Problem List: (1) Cellulitis Status: Resolved (2) Ischemic cardiomyopathy Status: Chronic (3) Diabetes mellitus type 2 in obese Status: Chronic (4) S/P BKA (below knee amputation) unilateral Status: Chronic (5) Acute metabolic encephalopathy Status: Acute (6) Bacteremia Status: Resolved (7) Chronic systolic (congestive) heart failure Status: Chronic (8) Venous stasis ulcer of left lower extremity Status: Chronic (9) Shortness of breath Status: Chronic (10) CVA (cerebral vascular accident) Status: Acute Assessment and Plan 60-year-old male with - Sepsis. resolved. - Leukocytosis improved. Repeat chest x-ray with no acute findings. Repeat urinalysis negative. Status post clindamycin for aspiration - Cellulitis of the left lower ext. resolved. - with staph coag neg bacteremia in 4/4 tubes. Staph haemolyticus in aerobic tubes, with different sensitivities, contaminant likely. - Chronic venous stasis ulcers on the left lower ext. Clinically improved- cellulitis resolved. - wound cultures - MSSA, Serratia marcescens - Dr. Messina/TISHA ff; was on Keflex and Cipro for 10 days (vancomycin DCed) and completed 10/26. - Bilateral CVA:MRI showed acute cortical infarct. MRA of head and neck unremarkable. Neurology following. Was on ASA and Plavix. - Continue Statin, Coumadin and monitor INR/PT keep INR between 2 and 3. - Acute metabolic encephalopathy - baseline neuro status unknown but there is suspicion of chronic cognitive impairment/dementia. -CT head was unremarkable for any acute findings. -Mildly elevated NH3 level. Continue lactulose. Liver sonogram with gallstone and sludge -Consulted psychiatry who started Haldol and discontinued Geodon. Improving behavior discontinued restraints since 11/03/15 -Added Seroquel 50 mg at bedtime when necessary on 11/13. - Mild elevation of troponin without upward trend in the setting of CKD - No chest pain. Likely due to CKD. - Diabetic mellitus - Glucose was well controlled. We discontinued all insulin. - Will do BID accu-check. If needed, we will start low long acting insulin and sliding scale insulin. - CKD stage 4 likely diabetic and from diuretics. Improving better than baseline creatinine 1.27. Avoid nephrotoxins. - Hypernatremia -stable - Metabolic acidosis due to CKD ; resolved - Cardiomyopathy/chronic systolic CHF LVEF 35% on echo 03/2015. Denies shortness of breath. Compensated. Continue Coreg 25mg BID and enalapril. - Cardiology evaluated patient to consider AICD when patient is able to consent. Currently unable to consent. - Hypertension. on Coreg 25 mg twice a day ,enalapril 5 mg twice a day. - Physical deconditioning: PT following. Out of bed to chair 3 times a day. Fall precautions - DVT prophylaxis with Coumadin Discharge Planning discharge home with [facility] Problem Qualifiers (1) Cellulitis: Jakub Quevedo MD Dec 02, 2015 11:02
[2015-12-02 12:00] VITALS: BP 90/62; PULSE 82; RESP 16; TEMP 95.8; O2SAT 95
[2015-12-02 16:00] VITALS: BP 90/57; PULSE 73; RESP 16; TEMP 96.3; O2SAT 94
[2015-12-02] MEDS: WARFARIN SOD 3 MG TAB PO SCH (16:53)
[2015-12-02 20:00] VITALS: BP 115/65; PULSE 77; RESP 21; TEMP 97.1; O2SAT 96
[2015-12-03] VITALS: BP 116/78; PULSE 80; RESP 20; TEMP 97.5; O2SAT 96
[2015-12-03 04:00] VITALS: BP 153/93; PULSE 77; RESP 20; TEMP 96.5; O2SAT 97
[2015-12-03] MEDS: ISOSORBIDE MONONITRATE 60 MG TAB PO SCH (06:13)
[2015-12-03 07:04] LABS: INTERNATIONAL NORMALIZED RATIO 2.5 RATIO; PROTHROMBIN TIME - PATIENT 27.4 SEC (9.8-11.4)
[2015-12-03 08:00] VITALS: BP 145/85; PULSE 76; RESP 16; TEMP 96.3; O2SAT 94
[2015-12-03] MEDS: ENALAPRIL MALEATE 5 MG TAB PO SCH (09:00)
[2015-12-03] MEDS: SODIUM CHLORIDE 0.9% FLUSH 5 ML FLUSH FLUSH SCH ×2 (09:00→21:00)
[2015-12-03] MEDS: POLYETHYLENE GLYCOL 17 GM PKG PO SCH (09:08)
[2015-12-03] MEDS: DOCUSATE SODIUM 50 MG/SENNA 8.6 MG TAB PO SCH ×2 (09:08→21:07)
[2015-12-03] MEDS: ATORVASTATIN 80 MG TAB PO SCH (09:08)
[2015-12-03] MEDS: LACTULOSE SYRUP 20 GM/30 ML CUP PO SCH (09:08)
[2015-12-03] MEDS: CARVEDILOL 12.5 MG TAB PO SCH ×2 (09:08→21:07)
[2015-12-03] MEDS: NYSTATIN 100,000 U/GM PWD 15 GM BTL TOPICAL SCH (09:09)
--- NOTE | 2015-12-03 09:34 | HHI.PR ---
Subjective Remarks Mr. Amado is a 60 year old male with a history of ischemic cardiomyopathy (EF 35-40%), CABG, stent placement who was found on the floor by family members and subsequently brought to the ED for altered mental status. 12/02/15 -Patient seen and examined. He was seen by the nursing station. No acute event overnight. Currently afebrile. 12/03/15-patient seen and examined. Alert and oriented 2. Patient with cloudy urine also looked episode of urinary retention. Currently afebrile. BP with some ups and low readings. Objective Vitals Vital Signs Date Time Temp Pulse Resp B/P Pulse Ox O2 Delivery O2 Flow Rate FiO2 12/03/15 08:00 96.3 76 16 145/85 94 12/03/15 04:00 96.5 77 20 153/93 97 12/03/15 00:00 97.5 80 20 116/78 96 12/02/15 20:00 97.1 77 21 115/65 96 12/02/15 16:00 96.3 73 16 90/57 94 12/02/15 12:00 95.8 82 16 90/62 95 I/O 12/02/15 12/02/15 12/02/15 12/03/15 12/03/15 12/03/15 07:00 15:00 23:00 07:00 15:00 23:00 Intake Total 240 ml 360 ml 120 ml Balance 240 ml 360 ml 120 ml Intake Oral 240 ml 360 ml 120 ml Bladder Scan Volume Amount 468 ml # Voids 0 2 1 0 # Bowel Movements 0 1 1 1 Result Diagram: 11/29/15 0842 11/29/15 0842 Objective Remarks GENERAL: Well-nourished, well-developed patient. EYES: No scleral icterus. No injection or drainage. NECK: Supple, trachea midline. No JVD or lymphadenopathy. CARDIOVASCULAR: Regular rate and rhythm without murmurs RESPIRATORY: Breath sounds equal bilaterally. No wheezing GASTROINTESTINAL: Abdomen soft, non-tender, nondistended. EXTREMITIES: No cyanosis, or edema. s/p right BKA. LLE with 1+ edema, several shallow venous stasis ulcerations on anterior calve, no cellulitis. BACK: Nontender without obvious deformity. No CVA tenderness. Procedures None A/P Problem List: (1) Cellulitis Status: Resolved (2) Ischemic cardiomyopathy Status: Chronic (3) Diabetes mellitus type 2 in obese Status: Chronic (4) S/P BKA (below knee amputation) unilateral Status: Chronic (5) Acute metabolic encephalopathy Status: Acute (6) Bacteremia Status: Resolved (7) Chronic systolic (congestive) heart failure Status: Chronic (8) Venous stasis ulcer of left lower extremity Status: Chronic (9) Shortness of breath Status: Chronic (10) CVA (cerebral vascular accident) Status: Acute Assessment and Plan 60-year-old male with - Sepsis. resolved. - Leukocytosis improved. Repeat chest x-ray with no acute findings. Repeat urinalysis negative. Status post clindamycin for aspiration - Cellulitis of the left lower ext. resolved. - with staph coag neg bacteremia in 4/4 tubes. Staph haemolyticus in aerobic tubes, with different sensitivities, contaminant likely. - Chronic venous stasis ulcers on the left lower ext. Clinically improved- cellulitis resolved. - wound cultures - MSSA, Serratia marcescens - Dr. Messina/TISHA ff; was on Keflex and Cipro for 10 days (vancomycin DCed) and completed 10/26. - Bilateral CVA:MRI showed acute cortical infarct. MRA of head and neck unremarkable. Neurology following. Was on ASA and Plavix. - Continue Statin, Coumadin and monitor INR/PT keep INR between 2 and 3. - Acute metabolic encephalopathy - baseline neuro status unknown but there is suspicion of chronic cognitive impairment/dementia. -CT head was unremarkable for any acute findings. -Mildly elevated NH3 level. Continue lactulose. Liver sonogram with gallstone and sludge -Consulted psychiatry who started Haldol and discontinued Geodon. Improving behavior discontinued restraints since 11/03/15 -Added Seroquel 50 mg at bedtime when necessary on 11/13. - Mild elevation of troponin without upward trend in the setting of CKD - No chest pain. Likely due to CKD. - Diabetic mellitus - Glucose was well controlled. We discontinued all insulin. - accu-check. If needed, we will start low long acting insulin and sliding scale insulin. - CKD stage 4 likely diabetic and from diuretics. Improving better than baseline creatinine 1.27. Avoid nephrotoxins. - Hypernatremia -stable - Metabolic acidosis due to CKD ; resolved - Cardiomyopathy/chronic systolic CHF LVEF 35% on echo 03/2015. Denies shortness of breath. Compensated. Continue Coreg 25mg BID and enalapril. - Cardiology evaluated patient to consider AICD when patient is able to consent. Currently unable to consent. - Hypertension. Currently on Coreg 25 mg twice a day ,enalapril 5 mg twice a day; however due to episode of low BPs will decrease Coreg to 12.5 mg twice a day and enalapril to 5 mg once a day. - Physical deconditioning: PT following. Out of bed to chair 3 times a day. Fall precautions -Rule out UTI: Check UA and treat accordingly. - DVT prophylaxis with Coumadin Discharge Planning discharge home with [facility] Problem Qualifiers (1) Cellulitis: Jakub Quevedo MD Dec 03, 2015 09:33
[2015-12-03] MEDS: HALOPERIDOL 5 MG TAB PO SCH ×2 (09:35→21:07)
[2015-12-03 12:00] VITALS: BP 90/52; PULSE 77; RESP 16; TEMP 95.5; O2SAT 97
[2015-12-03] MEDS: WARFARIN SOD 3 MG TAB PO SCH (15:15)
[2015-12-03 16:00] VITALS: BP 93/54; PULSE 79; RESP 16; TEMP 95.8; O2SAT 98
[2015-12-03 17:11] LABS: BLOOD, URINE NEG (NEG); CALCIUM OXALATE CRYSTALS,URINE RARE /hpf; COMMENT (UR) CULT NOT INDICATED; CULTURE IF INDICATED CULT NOT INDICATED; GLUCOSE,URINE NEG (NEG); KETONE, URINE NEG (NEG); MUCUS URINE FEW /lpf (OCC); NITRITE,URINE NEG (NEG); SQUAMOUS EPITHELIAL CELL URINE 1 /hpf (0-5); URINE COLOR YELLOW (YELLW/STRAW)
[2015-12-03 20:00] VITALS: BP 170/99; PULSE 80; RESP 18; TEMP 97; O2SAT 97
[2015-12-04] VITALS: BP 166/93; PULSE 71; RESP 16; TEMP 95.8; O2SAT 97
[2015-12-04 04:00] VITALS: BP 159/92; PULSE 73; RESP 16; TEMP 96.4; O2SAT 99
[2015-12-04] MEDS: ISOSORBIDE MONONITRATE 60 MG TAB PO SCH (06:12)
[2015-12-04] MEDS: ATORVASTATIN 80 MG TAB PO SCH (07:55)
[2015-12-04] MEDS: LACTULOSE SYRUP 20 GM/30 ML CUP PO SCH (07:55)
[2015-12-04] MEDS: DOCUSATE SODIUM 50 MG/SENNA 8.6 MG TAB PO SCH ×2 (07:55→20:11)
[2015-12-04] MEDS: HALOPERIDOL 5 MG TAB PO SCH ×2 (08:00→20:12)
[2015-12-04] MEDS: NYSTATIN 100,000 U/GM PWD 15 GM BTL TOPICAL SCH (08:03)
[2015-12-04 08:47] LABS: INTERNATIONAL NORMALIZED RATIO 2.5 RATIO; PROTHROMBIN TIME - PATIENT 27.3 SEC (9.8-11.4)
[2015-12-04 08:52] VITALS: BP 79/59; PULSE 79; RESP 17; TEMP 97.5; O2SAT 97
[2015-12-04] MEDS: POLYETHYLENE GLYCOL 17 GM PKG PO SCH (09:00)
[2015-12-04] MEDS: CARVEDILOL 12.5 MG TAB PO SCH ×2 (09:00→20:11)
[2015-12-04] MEDS: ENALAPRIL MALEATE 5 MG TAB PO SCH (09:00)
[2015-12-04] MEDS: SODIUM CHLORIDE 0.9% FLUSH 5 ML FLUSH FLUSH SCH ×2 (09:00→20:12)
--- NOTE | 2015-12-04 11:41 | HHI.PR ---
Subjective Remarks Mr. Amado is a 60 year old male with a history of ischemic cardiomyopathy (EF 35-40%), CABG, stent placement who was found on the floor by family members and subsequently brought to the ED for altered mental status. 12/02/15 -Patient seen and examined. He was seen by the nursing station. No acute event overnight. Currently afebrile. 12/03/15-patient seen and examined. Alert and oriented 2. Patient with cloudy urine also looked episode of urinary retention. Currently afebrile. BP with some ups and low readings. 12/04/15-patient seen and examined. No acute event overnight. Had low BP this morning however patient is symptomatic. Currently afebrile Objective Vitals Vital Signs Date Time Temp Pulse Resp B/P Pulse Ox O2 Delivery O2 Flow Rate FiO2 12/04/15 08:52 97.5 79 17 79/59 97 12/04/15 04:00 96.4 73 16 159/92 99 12/04/15 00:00 95.8 71 16 166/93 97 12/03/15 20:00 97.0 80 18 170/99 97 12/03/15 16:00 95.8 79 16 93/54 98 12/03/15 12:00 95.5 77 16 90/52 97 I/O 12/03/15 12/03/15 12/03/15 12/04/15 12/04/15 12/04/15 07:00 15:00 23:00 07:00 15:00 23:00 Intake Total 120 ml 120 ml 120 ml Output Total 425 ml 0 ml Balance 120 ml 120 ml -425 ml 120 ml Intake Oral 120 ml 120 ml 120 ml Output Urine Total 425 ml Stool Total 0 ml Bladder Scan Volume Amount 468 ml # Voids 0 2 2 4 # Bowel Movements 1 1 Objective Remarks GENERAL: Well-nourished, well-developed patient. EYES: No scleral icterus. No injection or drainage. NECK: Supple, trachea midline. No JVD or lymphadenopathy. CARDIOVASCULAR: Regular rate and rhythm without murmurs RESPIRATORY: Breath sounds equal bilaterally. No wheezing GASTROINTESTINAL: Abdomen soft, non-tender, nondistended. EXTREMITIES: No cyanosis, or edema. s/p right BKA. LLE with 1+ edema, several shallow venous stasis ulcerations on anterior calve, no cellulitis. BACK: Nontender without obvious deformity. No CVA tenderness. Procedures None A/P Problem List: (1) Cellulitis Status: Resolved (2) Ischemic cardiomyopathy Status: Chronic (3) Diabetes mellitus type 2 in obese Status: Chronic (4) S/P BKA (below knee amputation) unilateral Status: Chronic (5) Acute metabolic encephalopathy Status: Acute (6) Bacteremia Status: Resolved (7) Chronic systolic (congestive) heart failure Status: Chronic (8) Venous stasis ulcer of left lower extremity Status: Chronic (9) Shortness of breath Status: Chronic (10) CVA (cerebral vascular accident) Status: Acute Assessment and Plan 60-year-old male with - Sepsis. resolved. - Leukocytosis improved. Repeat chest x-ray with no acute findings. Repeat urinalysis negative. Status post clindamycin for aspiration - Cellulitis of the left lower ext. resolved. - with staph coag neg bacteremia in 4/4 tubes. Staph haemolyticus in aerobic tubes, with different sensitivities, contaminant likely. - Chronic venous stasis ulcers on the left lower ext. Clinically improved- cellulitis resolved. - wound cultures - MSSA, Serratia marcescens - Dr. Messina/ID ff; was on Keflex and Cipro for 10 days (vancomycin DCed) and completed 10/26. - Bilateral CVA:MRI showed acute cortical infarct. MRA of head and neck unremarkable. Neurology following. Was on ASA and Plavix. - Continue Statin, Coumadin and monitor INR/PT keep INR between 2 and 3. - Acute metabolic encephalopathy - baseline neuro status unknown but there is suspicion of chronic cognitive impairment/dementia. -CT head was unremarkable for any acute findings. -Mildly elevated NH3 level. Continue lactulose. Liver sonogram with gallstone and sludge -Consulted psychiatry who started Haldol and discontinued Geodon. Improving behavior discontinued restraints since 11/03/15 -Added Seroquel 50 mg at bedtime when necessary on 11/13. - Mild elevation of troponin without upward trend in the setting of CKD - No chest pain. Likely due to CKD. - Diabetic mellitus - Glucose was well controlled. We discontinued all insulin. - accu-check. If needed, we will start low long acting insulin and sliding scale insulin. - CKD stage 4 likely diabetic and from diuretics. Improving and monitor BUN and creatinine in a.m. Avoid nephrotoxins. - Hypernatremia -stable - Metabolic acidosis due to CKD ; resolved - Cardiomyopathy/chronic systolic CHF LVEF 35% on echo 03/2015. Compensated. Continue Coreg 12.5mg BID and enalapril. - Cardiology evaluated patient to consider AICD when patient is able to consent. Currently unable to consent. - Hypertension. Currently on Coreg 12.5 mg twice a day ,enalapril 5 mg daily. Continue to monitor BP - Physical deconditioning: PT following. Out of bed to chair 3 times a day. Fall precautions -Rule out UTI: Check UA and treat accordingly. - DVT prophylaxis with Coumadin Discharge Planning discharge home with [facility] Problem Qualifiers (1) Cellulitis: Jakub Quevedo MD Dec 04, 2015 11:41
[2015-12-04 12:50] VITALS: BP 93/55; PULSE 81; RESP 16; TEMP 97.7; O2SAT 96
[2015-12-04 16:35] VITALS: BP 90/63; PULSE 85; RESP 15; TEMP 98.1; O2SAT 98
[2015-12-04] MEDS: WARFARIN SOD 3 MG TAB PO SCH (16:45)
[2015-12-04 20:12] VITALS: BP 110/60; PULSE 91; RESP 16; TEMP 98.5; O2SAT 95
[2015-12-05] VITALS: BP 102/67; PULSE 89; RESP 18; TEMP 98.5; O2SAT 95
[2015-12-05 05:17] VITALS: BP 156/96; PULSE 74; RESP 18; TEMP 97; O2SAT 95
[2015-12-05] MEDS: ISOSORBIDE MONONITRATE 60 MG TAB PO SCH (06:09)
[2015-12-05 08:14] LABS: AUTOMATED NEUTROPHIL # 8.5 TH/MM3 (1.8-7.7); BASOPHIL % 0.4 % (0.0-2.0); EOSINOPHIL # 0.3 TH/MM3 (0-0.4); EOSINOPHIL % 3.1 % (0.0-4.0); HEMATOCRIT 36.1 % (39.0-51.0); HEMO FLAGS DIFF FINAL; LYMPHOCYTE # 1.5 TH/MM3 (1.0-4.8); MEAN CELL VOLUME 80.5 FL (80.0-100.0); MEAN CORPUSCULAR HEMOGLOBIN 26.3 PG (27.0-34.0); MEAN CORPUSCULAR HGB CONC 32.7 % (32.0-36.0); MONO % 7.9 % (0.0-8.0); NEUT % 75.6 % (16.0-70.0); PLATELET COUNT 164 TH/MM3 (150-450); RED BLOOD COUNT 4.48 MIL/MM3 (4.50-5.90); RED CELL DISTRIBUTION WIDTH 15.8 % (11.6-17.2); WHITE BLOOD COUNT 11.2 TH/MM3 (4.0-11.0)
[2015-12-05 08:20] LABS: INTERNATIONAL NORMALIZED RATIO 2.7 RATIO; PROTHROMBIN TIME - PATIENT 29.8 SEC (9.8-11.4)
[2015-12-05 08:31] LABS: BICARBONATE 26.8 MEQ/L (21.0-32.0); POTASSIUM 4.3 MEQ/L (3.5-5.1)
[2015-12-05 08:46] VITALS: BP 137/87; PULSE 77; RESP 18; TEMP 96.4; O2SAT 100
[2015-12-05] MEDS: ATORVASTATIN 80 MG TAB PO SCH (09:00)
[2015-12-05] MEDS: LACTULOSE SYRUP 20 GM/30 ML CUP PO SCH (09:00)
[2015-12-05] MEDS: HALOPERIDOL 5 MG TAB PO SCH ×2 (09:00→20:45)
[2015-12-05] MEDS: SODIUM CHLORIDE 0.9% FLUSH 5 ML FLUSH FLUSH SCH ×2 (09:00→20:46)
[2015-12-05] MEDS: DOCUSATE SODIUM 50 MG/SENNA 8.6 MG TAB PO SCH ×2 (09:00→20:45)
[2015-12-05] MEDS: POLYETHYLENE GLYCOL 17 GM PKG PO SCH (09:00)
[2015-12-05] MEDS: CARVEDILOL 12.5 MG TAB PO SCH ×2 (09:00→20:46)
[2015-12-05] MEDS: ENALAPRIL MALEATE 5 MG TAB PO SCH (09:00)
[2015-12-05] MEDS: NYSTATIN 100,000 U/GM PWD 15 GM BTL TOPICAL SCH (09:00)
--- NOTE | 2015-12-05 10:04 | HHI.PR ---
Subjective Remarks Mr. Amado is a 60 year old male with a history of ischemic cardiomyopathy (EF 35-40%), CABG, stent placement who was found on the floor by family members and subsequently brought to the ED for altered mental status. 12/02/15 -Patient seen and examined. He was seen by the nursing station. No acute event overnight. Currently afebrile. 12/03/15-patient seen and examined. Alert and oriented 2. Patient with cloudy urine also looked episode of urinary retention. Currently afebrile. BP with some ups and low readings. 12/04/15-patient seen and examined. No acute event overnight. Had low BP this morning however patient is symptomatic. Currently afebrile 12/05/15-patient seen and examined. BP now stable and no acute event overnight per nurse report Objective Vitals Vital Signs Date Time Temp Pulse Resp B/P Pulse Ox O2 Delivery O2 Flow Rate FiO2 12/05/15 08:46 96.4 77 18 137/87 100 12/05/15 05:17 97.0 74 18 156/96 95 12/05/15 00:00 98.5 89 18 102/67 95 12/04/15 20:12 98.5 91 16 110/60 95 12/04/15 16:35 98.1 85 15 90/63 98 12/04/15 12:50 97.7 81 16 93/55 96 I/O 12/04/15 12/04/15 12/04/15 12/05/15 12/05/15 12/05/15 07:00 15:00 23:00 07:00 15:00 23:00 Intake Total 120 ml 840 ml 200 ml Output Total 0 ml 400 ml Balance 120 ml 440 ml 200 ml Intake Oral 120 ml 840 ml 200 ml Output Urine Total 400 ml Stool Total 0 ml # Voids 4 1 2 # Bowel Movements 2 1 Result Diagram: 12/05/15 0722 12/05/15 0728 Objective Remarks GENERAL: Well-nourished, well-developed patient. EYES: No scleral icterus. No injection or drainage. NECK: Supple, trachea midline. No JVD or lymphadenopathy. CARDIOVASCULAR: Regular rate and rhythm without murmurs RESPIRATORY: Breath sounds equal bilaterally. No wheezing GASTROINTESTINAL: Abdomen soft, non-tender, nondistended. EXTREMITIES: No cyanosis, or edema. s/p right BKA. LLE with 1+ edema, several shallow venous stasis ulcerations on anterior calve, no cellulitis. BACK: Nontender without obvious deformity. No CVA tenderness. Procedures None A/P Problem List: (1) Cellulitis Status: Resolved (2) Ischemic cardiomyopathy Status: Chronic (3) Diabetes mellitus type 2 in obese Status: Chronic (4) S/P BKA (below knee amputation) unilateral Status: Chronic (5) Acute metabolic encephalopathy Status: Acute (6) Bacteremia Status: Resolved (7) Chronic systolic (congestive) heart failure Status: Chronic (8) Venous stasis ulcer of left lower extremity Status: Chronic (9) Shortness of breath Status: Chronic (10) CVA (cerebral vascular accident) Status: Acute Assessment and Plan 60-year-old male with - Sepsis. resolved. - Leukocytosis improved. Repeat chest x-ray with no acute findings. Repeat urinalysis negative. Status post clindamycin for aspiration - Cellulitis of the left lower ext. resolved. - with staph coag neg bacteremia in 4/4 tubes. Staph haemolyticus in aerobic tubes, with different sensitivities, contaminant likely. - Chronic venous stasis ulcers on the left lower ext. Clinically improved- cellulitis resolved. - wound cultures - MSSA, Serratia marcescens - Dr. Messina/TISHA ff; was on Keflex and Cipro for 10 days (vancomycin DCed) and completed 10/26. - Bilateral CVA:MRI showed acute cortical infarct. MRA of head and neck unremarkable. Neurology following. Was on ASA and Plavix. - Continue Statin, Coumadin and monitor INR/PT keep INR between 2 and 3. - Acute metabolic encephalopathy - baseline neuro status unknown but there is suspicion of chronic cognitive impairment/dementia. -CT head was unremarkable for any acute findings. -Mildly elevated NH3 level. Continue lactulose. Liver sonogram with gallstone and sludge -Consulted psychiatry who started Haldol and discontinued Geodon. Improving behavior discontinued restraints since 11/03/15 -Added Seroquel 50 mg at bedtime when necessary on 11/13. - Mild elevation of troponin without upward trend in the setting of CKD - No chest pain. Likely due to CKD. - Diabetic mellitus - Glucose was well controlled. We discontinued all insulin. - accu-check. If needed, we will start low long acting insulin and sliding scale insulin. - CKD stage 4 likely diabetic and from diuretics. Improving and monitor BUN and creatinine in a.m. Avoid nephrotoxins. - Hypernatremia -stable - Metabolic acidosis due to CKD ; resolved - Cardiomyopathy/chronic systolic CHF LVEF 35% on echo 03/2015. Compensated. Continue Coreg 12.5mg BID and enalapril. - Cardiology evaluated patient to consider AICD when patient is able to consent. Currently unable to consent. - Hypertension. Normotensive. Currently on Coreg 12.5 mg twice a day ,enalapril 5 mg daily. Continue to monitor BP - Physical deconditioning: PT following. Out of bed to chair 3 times a day. Fall precautions -Rule out UTI: Check UA and treat accordingly. - DVT prophylaxis with Coumadin Discharge Planning discharge home with [facility] Problem Qualifiers (1) Cellulitis: Jakub Quevedo MD Dec 05, 2015 10:04
[2015-12-05 12:23] VITALS: BP 92/72; PULSE 80; RESP 18; TEMP 97.8; O2SAT 100
[2015-12-05 15:55] VITALS: BP 138/82; PULSE 81; RESP 18; TEMP 97; O2SAT 98
[2015-12-05] MEDS: WARFARIN SOD 3 MG TAB PO SCH (16:19)
[2015-12-05 19:51] VITALS: BP 134/77; PULSE 78; RESP 20; TEMP 97.4; O2SAT 98
[2015-12-06] VITALS (9 sets, daily range): BP systolic 66–146; BP diastolic 50–82; PULSE 72–86; RESP 12–20; TEMP 95.7–97.7; O2SAT 93–100
[2015-12-06] MEDS: ISOSORBIDE MONONITRATE 60 MG TAB PO SCH (05:54)
[2015-12-06 08:39] LABS: INTERNATIONAL NORMALIZED RATIO 3.2 RATIO; PROTHROMBIN TIME - PATIENT 35.5 SEC (9.8-11.4)
[2015-12-06] MEDS: ATORVASTATIN 80 MG TAB PO SCH (08:47)
[2015-12-06] MEDS: SODIUM CHLORIDE 0.9% FLUSH 5 ML FLUSH FLUSH SCH ×2 (08:48→20:42)
[2015-12-06] MEDS: HALOPERIDOL 5 MG TAB PO SCH ×2 (08:48→20:42)
[2015-12-06] MEDS: POLYETHYLENE GLYCOL 17 GM PKG PO SCH (08:48)
[2015-12-06] MEDS: LACTULOSE SYRUP 20 GM/30 ML CUP PO SCH (08:48)
[2015-12-06] MEDS: CARVEDILOL 12.5 MG TAB PO SCH ×2 (08:48→20:42)
[2015-12-06] MEDS: ENALAPRIL MALEATE 5 MG TAB PO SCH (08:49)
[2015-12-06] MEDS: DOCUSATE SODIUM 50 MG/SENNA 8.6 MG TAB PO SCH ×2 (08:49→20:42)
[2015-12-06] MEDS: NYSTATIN 100,000 U/GM PWD 15 GM BTL TOPICAL SCH (08:50)
--- NOTE | 2015-12-06 09:44 | HHI.PR ---
Subjective Remarks Mr. Amado is a 60 year old male with a history of ischemic cardiomyopathy (EF 35-40%), CABG, stent placement who was found on the floor by family members and subsequently brought to the ED for altered mental status. 12/02/15 -Patient seen and examined. He was seen by the nursing station. No acute event overnight. Currently afebrile. 12/03/15-patient seen and examined. Alert and oriented 2. Patient with cloudy urine also looked episode of urinary retention. Currently afebrile. BP with some ups and low readings. 12/04/15-patient seen and examined. No acute event overnight. Had low BP this morning however patient is symptomatic. Currently afebrile 12/05/15-patient seen and examined. BP now stable and no acute event overnight per nurse report 12/06/15-patient seen and examined. Stable and no acute event overnight. Afebrile Objective Vitals Vital Signs Date Time Temp Pulse Resp B/P Pulse Ox O2 Delivery O2 Flow Rate FiO2 12/06/15 09:03 97.1 80 16 113/82 98 12/06/15 06:09 97.5 78 14 146/76 98 12/06/15 00:00 97.7 72 12 116/81 93 12/05/15 19:51 97.4 78 20 134/77 98 12/05/15 15:55 97.0 81 18 138/82 98 12/05/15 12:23 97.8 80 18 92/72 100 I/O 12/05/15 12/05/15 12/05/15 12/06/15 12/06/15 12/06/15 07:00 15:00 23:00 07:00 15:00 23:00 Intake Total 200 ml 360 ml 0 ml Balance 200 ml 360 ml 0 ml Intake Oral 200 ml 360 ml IV Total 0 ml # Voids 2 2 # Bowel Movements 1 Result Diagram: 12/05/1572112/05/15727 Objective Remarks GENERAL: Well-nourished, well-developed patient. EYES: No scleral icterus. No injection or drainage. NECK: Supple, trachea midline. No JVD or lymphadenopathy. CARDIOVASCULAR: Regular rate and rhythm without murmurs RESPIRATORY: Breath sounds equal bilaterally. No wheezing GASTROINTESTINAL: Abdomen soft, non-tender, nondistended. EXTREMITIES: No cyanosis, or edema. s/p right BKA. LLE with 1+ edema, several shallow venous stasis ulcerations on anterior calve, no cellulitis. BACK: Nontender without obvious deformity. No CVA tenderness. Procedures None A/P Problem List: (1) Cellulitis Status: Resolved (2) Ischemic cardiomyopathy Status: Chronic (3) Diabetes mellitus type 2 in obese Status: Chronic (4) S/P BKA (below knee amputation) unilateral Status: Chronic (5) Acute metabolic encephalopathy Status: Acute (6) Bacteremia Status: Resolved (7) Chronic systolic (congestive) heart failure Status: Chronic (8) Venous stasis ulcer of left lower extremity Status: Chronic (9) Shortness of breath Status: Chronic (10) CVA (cerebral vascular accident) Status: Acute Assessment and Plan 60-year-old male with - Sepsis. resolved. - Cellulitis of the left lower ext. resolved. - with staph coag neg bacteremia in 4/4 tubes. Staph haemolyticus in aerobic tubes, with different sensitivities, contaminant likely. - Chronic venous stasis ulcers on the left lower ext. Clinically improved- cellulitis resolved. - wound cultures - MSSA, Serratia marcescens - Dr. Messina/ID ff; was on Keflex and Cipro for 10 days (vancomycin DCed) and completed 10/26. - Bilateral CVA:MRI showed acute cortical infarct. MRA of head and neck unremarkable. Neurology following. Was on ASA and Plavix. - Continue Statin, Coumadin and monitor INR/PT keep INR between 2 and 3. - Acute metabolic encephalopathy - baseline neuro status unknown but there is suspicion of chronic cognitive impairment/dementia. -CT head was unremarkable for any acute findings. -Mildly elevated NH3 level. Continue lactulose. Liver sonogram with gallstone and sludge -Consulted psychiatry who started Haldol and discontinued Geodon. Improving behavior discontinued restraints since 11/03/15 -Added Seroquel 50 mg at bedtime when necessary on 11/13. - Mild elevation of troponin without upward trend in the setting of CKD - No chest pain. Likely due to CKD. - Diabetic mellitus - Glucose was well controlled. We discontinued all insulin. - accu-check. If needed, we will start low long acting insulin and sliding scale insulin. - CKD stage 4 likely diabetic and from diuretics. Improving and monitor BUN and creatinine in a.m. Avoid nephrotoxins. - Hypernatremia -stable - Metabolic acidosis due to CKD ; resolved - Cardiomyopathy/chronic systolic CHF LVEF 35% on echo 03/2015. Compensated. Continue Coreg 12.5mg BID and enalapril. - Cardiology evaluated patient to consider AICD when patient is able to consent. Currently unable to consent. - Hypertension. Normotensive. Currently on Coreg 12.5 mg twice a day ,enalapril 5 mg daily. Continue to monitor BP - Physical deconditioning: PT following. Out of bed to chair 3 times a day. Fall precautions -UA obtain however with only trace leukocyte esterase and few WBC therefore ruling out UTI. - DVT prophylaxis with Coumadin Discharge Planning discharge home with [facility] Problem Qualifiers (1) Cellulitis: Jakub Quevedo MD Dec 06, 2015 09:44
[2015-12-07 04:12] VITALS: BP 133/75; PULSE 75; RESP 20; TEMP 97.8; O2SAT 96
[2015-12-07] MEDS: ISOSORBIDE MONONITRATE 60 MG TAB PO SCH (06:19)
[2015-12-07 07:14] LABS: INTERNATIONAL NORMALIZED RATIO 2.9 RATIO; PROTHROMBIN TIME - PATIENT 32.4 SEC (9.8-11.4)
[2015-12-07 08:34] VITALS: BP 143/94; PULSE 78; RESP 19; TEMP 96.7; O2SAT 97
[2015-12-07] MEDS: NYSTATIN 100,000 U/GM PWD 15 GM BTL TOPICAL SCH (09:00)
[2015-12-07] MEDS: SODIUM CHLORIDE 0.9% FLUSH 5 ML FLUSH FLUSH SCH ×2 (09:00→21:00)
[2015-12-07] MEDS: HALOPERIDOL 5 MG TAB PO SCH ×2 (09:00→22:25)
[2015-12-07] MEDS: DOCUSATE SODIUM 50 MG/SENNA 8.6 MG TAB PO SCH ×2 (09:00→22:24)
[2015-12-07] MEDS: ENALAPRIL MALEATE 5 MG TAB PO SCH (09:00)
[2015-12-07] MEDS: LACTULOSE SYRUP 20 GM/30 ML CUP PO SCH (09:30)
[2015-12-07] MEDS: ATORVASTATIN 80 MG TAB PO SCH (09:30)
[2015-12-07] MEDS: CARVEDILOL 12.5 MG TAB PO SCH ×2 (09:30→22:24)
[2015-12-07] MEDS: POLYETHYLENE GLYCOL 17 GM PKG PO SCH (09:31)
[2015-12-07 12:00] VITALS: BP 89/54; PULSE 74; RESP 18; TEMP 95.9; O2SAT 98
--- NOTE | 2015-12-07 12:01 | HHI.PR ---
Subjective Remarks Mr. Amado is a 60 year old male with a history of ischemic cardiomyopathy (EF 35-40%), CABG, stent placement who was found on the floor by family members and subsequently brought to the ED for altered mental status. 12/02/15 -Patient seen and examined. He was seen by the nursing station. No acute event overnight. Currently afebrile. 12/03/15-patient seen and examined. Alert and oriented 2. Patient with cloudy urine also looked episode of urinary retention. Currently afebrile. BP with some ups and low readings. 12/04/15-patient seen and examined. No acute event overnight. Had low BP this morning however patient is symptomatic. Currently afebrile 12/05/15-patient seen and examined. BP now stable and no acute event overnight per nurse report 12/06/15-patient seen and examined. Stable and no acute event overnight. Afebrile 12/07/15-patient seen and examined;NOt much of an appetite; no chest pain or SOB Objective Vitals Vital Signs Date Time Temp Pulse Resp B/P Pulse Ox O2 Delivery O2 Flow Rate FiO2 12/07/15 08:34 96.7 78 19 143/94 97 12/07/15 04:12 97.8 75 20 133/75 96 12/06/15 23:55 96.3 76 18 124/69 95 12/06/15 20:00 96.8 86 20 125/71 99 12/06/15 18:20 96.1 82 14 102/70 100 12/06/15 13:58 100/80 12/06/15 13:07 88/62 12/06/15 12:45 95.7 80 16 69/50 95 66/52 I/O 12/06/15 12/06/15 12/06/15 12/07/15 12/07/15 12/07/15 07:00 15:00 23:00 07:00 15:00 23:00 Intake Total 0 ml 357 ml 240 ml Balance 0 ml 357 ml 240 ml Intake Oral 357 ml 240 ml IV Total 0 ml # Voids 1 1 Result Diagram: 12/05/1522 12/05/15 0728 Objective Remarks GENERAL: Well-nourished, well-developed patient and sitting by the nursing station EYES: No scleral icterus. No injection or drainage. NECK: Supple, trachea midline. No JVD or lymphadenopathy. CARDIOVASCULAR: Regular rate and rhythm without murmurs RESPIRATORY: Breath sounds equal bilaterally. No wheezing GASTROINTESTINAL: Abdomen soft, non-tender, nondistended. EXTREMITIES: No cyanosis, or edema. s/p right BKA. LLE with 1+ edema, several shallow venous stasis ulcerations on anterior calve, no cellulitis. BACK: Nontender without obvious deformity. No CVA tenderness. Procedures None A/P Problem List: (1) Cellulitis Status: Resolved (2) Ischemic cardiomyopathy Status: Chronic (3) Diabetes mellitus type 2 in obese Status: Chronic (4) S/P BKA (below knee amputation) unilateral Status: Chronic (5) Acute metabolic encephalopathy Status: Acute (6) Bacteremia Status: Resolved (7) Chronic systolic (congestive) heart failure Status: Chronic (8) Venous stasis ulcer of left lower extremity Status: Chronic (9) Shortness of breath Status: Chronic (10) CVA (cerebral vascular accident) Status: Acute Assessment and Plan 60-year-old male with - Sepsis. resolved. - Cellulitis of the left lower ext. resolved. - with staph coag neg bacteremia in 4/4 tubes. Staph haemolyticus in aerobic tubes, with different sensitivities, contaminant likely. - Chronic venous stasis ulcers on the left lower ext. Clinically improved- cellulitis resolved. - wound cultures - MSSA, Serratia marcescens - Dr. Messina/TISHA ff; was on Keflex and Cipro for 10 days (vancomycin DCed) and completed 10/26. - Bilateral CVA:MRI showed acute cortical infarct. MRA of head and neck unremarkable. Neurology following. Was on ASA and Plavix. - Continue Statin, Coumadin and monitor INR/PT keep INR between 2 and 3. - Acute metabolic encephalopathy - baseline neuro status unknown but there is suspicion of chronic cognitive impairment/dementia. -CT head was unremarkable for any acute findings. -Mildly elevated NH3 level. Continue lactulose. Liver sonogram with gallstone and sludge -Consulted psychiatry who started Haldol and discontinued Geodon. Improving behavior discontinued restraints since 11/03/15 -Added Seroquel 50 mg at bedtime when necessary on 11/13. - Mild elevation of troponin without upward trend in the setting of CKD - No chest pain. Likely due to CKD. - Diabetic mellitus - Glucose was well controlled. We discontinued all insulin. - accu-check. If needed, we will start low long acting insulin and sliding scale insulin. - CKD stage 4 likely diabetic and from diuretics. Improving and monitor BUN and creatinine in a.m. Avoid nephrotoxins. - Hypernatremia -stable - Metabolic acidosis due to CKD ; resolved - Cardiomyopathy/chronic systolic CHF LVEF 35% on echo 03/2015. Compensated. Continue Coreg 12.5mg BID and enalapril. - Cardiology evaluated patient to consider AICD when patient is able to consent. Currently unable to consent. - Hypertension. Normotensive. Currently on Coreg 12.5 mg twice a day ,enalapril 5 mg daily. Continue to monitor BP - Physical deconditioning: PT following. Out of bed to chair 3 times a day. Fall precautions -UA obtained however with only trace leukocyte esterase and few WBC therefore ruled out UTI. -Poor appetite:Reconsult speech therapy for swallow eval - DVT prophylaxis with Coumadin Discharge Planning discharge home with [facility] Problem Qualifiers (1) Cellulitis: Jakub Quevedo MD Dec 07, 2015 12:01
[2015-12-07 16:40] VITALS: BP 87/47; PULSE 78; RESP 18; TEMP 96.8; O2SAT 97
[2015-12-07 21:45] VITALS: BP 142/65; PULSE 74; RESP 20; TEMP 97.1; O2SAT 95
[2015-12-08 00:20] VITALS: BP 139/84; PULSE 78; RESP 16; TEMP 97.2; O2SAT 95
[2015-12-08 04:26] VITALS: BP 118/72; PULSE 69; RESP 20; TEMP 97.3; O2SAT 97
[2015-12-08] MEDS: ISOSORBIDE MONONITRATE 60 MG TAB PO SCH (06:08)
[2015-12-08 08:15] VITALS: BP 120/76; PULSE 73; RESP 18; TEMP 96.9; O2SAT 95
[2015-12-08 08:25] LABS: INTERNATIONAL NORMALIZED RATIO 2.8 RATIO
[2015-12-08] MEDS: DOCUSATE SODIUM 50 MG/SENNA 8.6 MG TAB PO SCH ×2 (09:00→21:51)
[2015-12-08] MEDS: NYSTATIN 100,000 U/GM PWD 15 GM BTL TOPICAL SCH (09:00)
[2015-12-08] MEDS: SODIUM CHLORIDE 0.9% FLUSH 5 ML FLUSH FLUSH SCH ×2 (09:00→21:49)
[2015-12-08] MEDS: ENALAPRIL MALEATE 5 MG TAB PO SCH (09:00)
[2015-12-08] MEDS: HALOPERIDOL 5 MG TAB PO SCH (09:00)
[2015-12-08] MEDS: POLYETHYLENE GLYCOL 17 GM PKG PO SCH (10:00)
[2015-12-08] MEDS: CARVEDILOL 12.5 MG TAB PO SCH ×2 (10:02→21:00)
[2015-12-08] MEDS: ATORVASTATIN 80 MG TAB PO SCH (10:02)
[2015-12-08] MEDS: LACTULOSE SYRUP 20 GM/30 ML CUP PO SCH (10:03)
[2015-12-08 12:15] VITALS: BP 97/68; PULSE 80; RESP 18; TEMP 96; O2SAT 96
--- NOTE | 2015-12-08 12:16 | HHI.PR ---
Subjective Remarks Mr. Amado is a 60 year old male with a history of ischemic cardiomyopathy (EF 35-40%), CABG, stent placement who was found on the floor by family members and subsequently brought to the ED for altered mental status. 12/02/15 -Patient seen and examined. He was seen by the nursing station. No acute event overnight. Currently afebrile. 12/03/15-patient seen and examined. Alert and oriented 2. Patient with cloudy urine also looked episode of urinary retention. Currently afebrile. BP with some ups and low readings. 12/04/15-patient seen and examined. No acute event overnight. Had low BP this morning however patient is symptomatic. Currently afebrile 12/05/15-patient seen and examined. BP now stable and no acute event overnight per nurse report 12/06/15-patient seen and examined. Stable and no acute event overnight. Afebrile 12/07/15-patient seen and examined;NOt much of an appetite; no chest pain or SOB 12/08/15-patient seen and examined; head tremors and initially thought to also have hand tremors however resolved during my exam. Low BP post treatment for hypertension. Now on regular diet past swallow eval this morning. Objective Vitals Vital Signs Date Time Temp Pulse Resp B/P Pulse Ox O2 Delivery O2 Flow Rate FiO2 12/08/15 08:15 96.9 73 18 120/76 95 12/08/15 04:26 97.3 69 20 118/72 97 12/08/15 00:20 97.2 78 16 139/84 95 12/07/15 21:45 97.1 74 20 142/65 95 12/07/15 16:40 96.8 78 18 87/47 97 I/O 12/07/15 12/07/15 12/07/15 12/08/15 12/08/15 12/08/15 07:00 15:00 23:00 07:00 15:00 23:00 Intake Total 240 ml 150 ml 270 ml 100 ml Balance 240 ml 150 ml 270 ml 100 ml Intake Oral 240 ml 150 ml 270 ml 100 ml # Voids 1 2 0 2 # Bowel Movements 0 0 Result Diagram: 12/05/15 0722 12/05/15 0728 Objective Remarks GENERAL: Well-nourished, well-developed patient and sitting by the nursing station SKIN: Scaly erythematous flakes on his face EYES: No scleral icterus. No injection or drainage. NECK: Supple, trachea midline. No JVD or lymphadenopathy. CARDIOVASCULAR: Regular rate and rhythm without murmurs RESPIRATORY: Breath sounds equal bilaterally. No wheezing GASTROINTESTINAL: Abdomen soft, non-tender, nondistended. EXTREMITIES: No cyanosis, or edema. s/p right BKA. LLE with 1+ edema, several shallow venous stasis ulcerations on anterior calve, no cellulitis. BACK: Nontender without obvious deformity. No CVA tenderness. Procedures None A/P Problem List: (1) Cellulitis Status: Resolved (2) Ischemic cardiomyopathy Status: Chronic (3) Diabetes mellitus type 2 in obese Status: Chronic (4) S/P BKA (below knee amputation) unilateral Status: Chronic (5) Acute metabolic encephalopathy Status: Acute (6) Bacteremia Status: Resolved (7) Chronic systolic (congestive) heart failure Status: Chronic (8) Venous stasis ulcer of left lower extremity Status: Chronic (9) Shortness of breath Status: Chronic (10) CVA (cerebral vascular accident) Status: Acute (11) Seborrheic dermatitis Status: Acute Assessment and Plan 60-year-old male with - Sepsis. resolved. - Cellulitis of the left lower ext. resolved. - with staph coag neg bacteremia in 4/4 tubes. Staph haemolyticus in aerobic tubes, with different sensitivities, contaminant likely. - Chronic venous stasis ulcers on the left lower ext. Clinically improved- cellulitis resolved. - wound cultures - MSSA, Serratia marcescens - Dr. Messina/TISHA ff; was on Keflex and Cipro for 10 days (vancomycin DCed) and completed 10/26. - Bilateral CVA:MRI showed acute cortical infarct. MRA of head and neck unremarkable. Neurology following. Was on ASA and Plavix. - Continue Statin, Coumadin and monitor INR/PT keep INR between 2 and 3. - Acute metabolic encephalopathy - baseline neuro status unknown but there is suspicion of chronic cognitive impairment/dementia. -CT head was unremarkable for any acute findings. -Mildly elevated NH3 level. Continue lactulose. Liver sonogram with gallstone and sludge -Hold Haldol secondary to tremors. Improving behavior discontinued restraints since 11/03/15 -Continue Seroquel 50 mg at bedtime when necessary on 11/13. - Mild elevation of troponin without upward trend in the setting of CKD - No chest pain. Likely due to CKD. - Diabetic mellitus - Glucose was well controlled. We discontinued all insulin. - accu-check. If needed, we will start low long acting insulin and sliding scale insulin. - CKD stage 4 likely diabetic and from diuretics. Improving and monitor BUN and creatinine in a.m. Avoid nephrotoxins. - Hypernatremia -stable - Metabolic acidosis due to CKD ; resolved - Cardiomyopathy/chronic systolic CHF LVEF 35% on echo 03/2015. Compensated. Continue Coreg 12.5mg BID and enalapril. - Cardiology evaluated patient to consider AICD when patient is able to consent. Currently unable to consent. - Hypertension. Normotensive. Currently on Coreg 12.5 mg twice a day ,enalapril 5 mg daily. Continue to monitor BP - Physical deconditioning: PT following. Out of bed to chair 3 times a day. Fall precautions -UA obtained however with only trace leukocyte esterase and few WBC therefore ruled out UTI. -Poor appetite: Passed swallow eval, now on regular diet -Seborrheic dermatitis: Treat with betamethasone dipropionate topical - DVT prophylaxis with Coumadin Discharge Planning discharge home with [facility] Problem Qualifiers (1) Cellulitis: Jakub Quevedo MD Dec 08, 2015 12:15
[2015-12-08 16:18] VITALS: BP 115/75; PULSE 84; RESP 18; TEMP 97.7; O2SAT 98
[2015-12-08 20:15] VITALS: BP 104/72; PULSE 85; RESP 18; TEMP 98.1; O2SAT 100
[2015-12-08] MEDS: BETAMETHASONE DIPROPIONATE 0.05% OINT 15 GM TUBE TOP SCH (21:00)
[2015-12-09] VITALS: BP 110/64; PULSE 89; RESP 18; TEMP 97; O2SAT 100
[2015-12-09 04:00] VITALS: BP 113/67; PULSE 79; RESP 18; TEMP 97; O2SAT 96
[2015-12-09] MEDS: ISOSORBIDE MONONITRATE 60 MG TAB PO SCH (06:15)
[2015-12-09 08:00] VITALS: BP 146/93; PULSE 80; RESP 18; TEMP 96.9; O2SAT 97
[2015-12-09 08:35] LABS: INTERNATIONAL NORMALIZED RATIO 2.2 RATIO; PROTHROMBIN TIME - PATIENT 23.7 SEC (9.8-11.4)
[2015-12-09] MEDS: NYSTATIN 100,000 U/GM PWD 15 GM BTL TOPICAL SCH (09:00)
[2015-12-09] MEDS: BETAMETHASONE DIPROPIONATE 0.05% OINT 15 GM TUBE TOP SCH ×2 (09:00→21:00)
[2015-12-09] MEDS: ENALAPRIL MALEATE 5 MG TAB PO SCH (09:00)
[2015-12-09] MEDS: POLYETHYLENE GLYCOL 17 GM PKG PO SCH (09:00)
[2015-12-09] MEDS: SODIUM CHLORIDE 0.9% FLUSH 5 ML FLUSH FLUSH SCH ×2 (09:00→21:00)
[2015-12-09] MEDS: DOCUSATE SODIUM 50 MG/SENNA 8.6 MG TAB PO SCH ×2 (09:49→21:01)
[2015-12-09] MEDS: ATORVASTATIN 80 MG TAB PO SCH (09:49)
[2015-12-09] MEDS: LACTULOSE SYRUP 20 GM/30 ML CUP PO SCH (09:49)
[2015-12-09] MEDS: CARVEDILOL 12.5 MG TAB PO SCH ×2 (09:49→21:01)
--- NOTE | 2015-12-09 11:27 | HHI.PR ---
Subjective Remarks Mr. Amado is a 60 year old male with a history of ischemic cardiomyopathy (EF 35-40%), CABG, stent placement who was found on the floor by family members and subsequently brought to the ED for altered mental status. 12/02/15 -Patient seen and examined. He was seen by the nursing station. No acute event overnight. Currently afebrile. 12/03/15-patient seen and examined. Alert and oriented 2. Patient with cloudy urine also looked episode of urinary retention. Currently afebrile. BP with some ups and low readings. 12/04/15-patient seen and examined. No acute event overnight. Had low BP this morning however patient is symptomatic. Currently afebrile 12/05/15-patient seen and examined. BP now stable and no acute event overnight per nurse report 12/06/15-patient seen and examined. Stable and no acute event overnight. Afebrile 12/07/15-patient seen and examined;NOt much of an appetite; no chest pain or SOB 12/08/15-patient seen and examined; head tremors and initially thought to also have hand tremors however resolved during my exam. Low BP post treatment for hypertension. Now on regular diet past swallow eval this morning. 12/09/15-patient seen and examined; head and hand tremor resolved. BP within normal limit. Currently afebrile. Objective Vitals Vital Signs Date Time Temp Pulse Resp B/P Pulse Ox O2 Delivery O2 Flow Rate FiO2 12/09/15 08:00 96.9 80 18 146/93 97 12/09/15 04:00 97.0 79 18 113/67 96 12/09/15 00:00 97.0 89 18 110/64 100 12/08/15 20:15 98.1 85 18 104/72 100 12/08/15 16:18 97.7 84 18 115/75 98 12/08/15 12:15 96.0 80 18 97/68 96 I/O 12/08/15 12/08/15 12/08/15 12/09/15 12/09/15 12/09/15 07:00 15:00 23:00 07:00 15:00 23:00 Intake Total 100 ml 480 ml 720 ml Output Total 0 ml Balance 100 ml 480 ml 720 ml Intake Oral 100 ml 480 ml 720 ml Output Urine Total 0 ml # Voids 2 2 1 # Bowel Movements 0 0 Result Diagram: 12/05/15 0722 12/05/15 0728 Objective Remarks GENERAL: Well-nourished, well-developed patient and sitting by the nursing station SKIN: Scaly erythematous flakes on his face EYES: No scleral icterus. No injection or drainage. NECK: Supple, trachea midline. No JVD or lymphadenopathy. CARDIOVASCULAR: Regular rate and rhythm without murmurs RESPIRATORY: Breath sounds equal bilaterally. No wheezing GASTROINTESTINAL: Abdomen soft, non-tender, nondistended. EXTREMITIES: No cyanosis, or edema. s/p right BKA. LLE with 1+ edema, several shallow venous stasis ulcerations on anterior calve, no cellulitis. BACK: Nontender without obvious deformity. No CVA tenderness. Procedures None A/P Problem List: (1) Cellulitis Status: Resolved (2) Ischemic cardiomyopathy Status: Chronic (3) Diabetes mellitus type 2 in obese Status: Chronic (4) S/P BKA (below knee amputation) unilateral Status: Chronic (5) Acute metabolic encephalopathy Status: Acute (6) Bacteremia Status: Resolved (7) Chronic systolic (congestive) heart failure Status: Chronic (8) Venous stasis ulcer of left lower extremity Status: Chronic (9) Shortness of breath Status: Chronic (10) CVA (cerebral vascular accident) Status: Acute (11) Seborrheic dermatitis Status: Acute Assessment and Plan 60-year-old male with - Sepsis. resolved. - Cellulitis of the left lower ext. resolved. - with staph coag neg bacteremia in 4/4 tubes. Staph haemolyticus in aerobic tubes, with different sensitivities, contaminant likely. - Chronic venous stasis ulcers on the left lower ext. Clinically improved- cellulitis resolved. - wound cultures - MSSA, Serratia marcescens - Dr. Messina/ID ff; was on Keflex and Cipro for 10 days (vancomycin DCed) and completed 10/26. - Bilateral CVA:MRI showed acute cortical infarct. MRA of head and neck unremarkable. Neurology following. Was on ASA and Plavix. - Continue Statin, Coumadin and monitor INR/PT keep INR between 2 and 3. - Acute metabolic encephalopathy - baseline neuro status unknown but there is suspicion of chronic cognitive impairment/dementia. -CT head was unremarkable for any acute findings. -Mildly elevated NH3 level. Continue lactulose. Liver sonogram with gallstone and sludge -Hold Haldol secondary to tremors. Improving behavior discontinued restraints since 11/03/15 -Continue Seroquel 50 mg at bedtime when necessary on 11/13. - Mild elevation of troponin without upward trend in the setting of CKD - No chest pain. Likely due to CKD. - Diabetic mellitus - Glucose was well controlled. We discontinued all insulin. - accu-check. If needed, we will start low long acting insulin and sliding scale insulin. - CKD stage 4 likely diabetic and from diuretics. Improving and monitor BUN and creatinine in a.m. Avoid nephrotoxins. - Hypernatremia -stable - Metabolic acidosis due to CKD ; resolved - Cardiomyopathy/chronic systolic CHF LVEF 35% on echo 03/2015. Compensated. Continue Coreg 12.5mg BID and enalapril. - Cardiology evaluated patient to consider AICD when patient is able to consent. Currently unable to consent. - Hypertension. Normotensive. Currently on Coreg 12.5 mg twice a day ,enalapril 5 mg daily. Continue to monitor BP - Physical deconditioning: PT following. Out of bed to chair 3 times a day. Fall precautions -UA obtained however with only trace leukocyte esterase and few WBC therefore ruled out UTI. -Poor appetite: Passed swallow eval, now on regular diet -Seborrheic dermatitis: Continue with betamethasone dipropionate topical - DVT prophylaxis with Coumadin Discharge Planning discharge home with [facility] Problem Qualifiers (1) Cellulitis: Jakub Quevedo MD Dec 09, 2015 11:27
[2015-12-09 12:00] VITALS: BP 148/95; PULSE 87; RESP 20; TEMP 97.6; O2SAT 95
[2015-12-09 16:00] VITALS: BP 116/53; PULSE 83; RESP 20; TEMP 97; O2SAT 96
[2015-12-09] MEDS ORDERED: WARFARIN SOD 2 MG TAB PO SCH (16:00)
[2015-12-09 20:00] VITALS: BP 105/67; PULSE 76; RESP 18; TEMP 96.9; O2SAT 97
[2015-12-10] VITALS: BP 120/68; PULSE 78; RESP 18; TEMP 97; O2SAT 97
[2015-12-10 04:00] VITALS: BP 125/76; PULSE 73; RESP 18; TEMP 97.3; O2SAT 97
[2015-12-10] MEDS: ISOSORBIDE MONONITRATE 60 MG TAB PO SCH (06:08)
[2015-12-10] MEDS: DOCUSATE SODIUM 50 MG/SENNA 8.6 MG TAB PO SCH ×2 (07:55→23:15)
[2015-12-10] MEDS: LACTULOSE SYRUP 20 GM/30 ML CUP PO SCH (07:56)
[2015-12-10] MEDS: CARVEDILOL 12.5 MG TAB PO SCH ×2 (07:56→23:15)
[2015-12-10] MEDS: ATORVASTATIN 80 MG TAB PO SCH (07:56)
[2015-12-10] MEDS: ENALAPRIL MALEATE 5 MG TAB PO SCH (07:56)
[2015-12-10] MEDS: BETAMETHASONE DIPROPIONATE 0.05% OINT 15 GM TUBE TOP SCH ×2 (07:57→23:17)
[2015-12-10] MEDS: POLYETHYLENE GLYCOL 17 GM PKG PO SCH (07:57)
[2015-12-10] MEDS: NYSTATIN 100,000 U/GM PWD 15 GM BTL TOPICAL SCH (07:57)
[2015-12-10] MEDS: SODIUM CHLORIDE 0.9% FLUSH 5 ML FLUSH FLUSH SCH ×2 (07:57→21:00)
[2015-12-10 08:43] VITALS: BP 118/70; PULSE 103; RESP 20; TEMP 96.7; O2SAT 97
[2015-12-10 09:13] LABS: INTERNATIONAL NORMALIZED RATIO 1.5 RATIO; PROTHROMBIN TIME - PATIENT 15.9 SEC (9.8-11.4)
--- NOTE | 2015-12-10 09:59 | HHI.PR ---
Subjective Remarks Mr. Amado is a 60 year old male with a history of ischemic cardiomyopathy (EF 35-40%), CABG, stent placement who was found on the floor by family members and subsequently brought to the ED for altered mental status. 12/02/15 -Patient seen and examined. He was seen by the nursing station. No acute event overnight. Currently afebrile. 12/03/15-patient seen and examined. Alert and oriented 2. Patient with cloudy urine also looked episode of urinary retention. Currently afebrile. BP with some ups and low readings. 12/04/15-patient seen and examined. No acute event overnight. Had low BP this morning however patient is symptomatic. Currently afebrile 12/05/15-patient seen and examined. BP now stable and no acute event overnight per nurse report 12/06/15-patient seen and examined. Stable and no acute event overnight. Afebrile 12/07/15-patient seen and examined;NOt much of an appetite; no chest pain or SOB 12/08/15-patient seen and examined; head tremors and initially thought to also have hand tremors however resolved during my exam. Low BP post treatment for hypertension. Now on regular diet past swallow eval this morning. 12/09/15-patient seen and examined; head and hand tremor resolved. BP within normal limit. Currently afebrile. 12/10/15-patient seen and examined. No acute event overnight and stable Objective Vitals Vital Signs Date Time Temp Pulse Resp B/P Pulse Ox O2 Delivery O2 Flow Rate FiO2 12/10/15 08:43 96.7 103 20 118/70 97 12/10/15 04:00 97.3 73 18 125/76 97 12/10/15 00:00 97.0 78 18 120/68 97 12/09/15 20:00 96.9 76 18 105/67 97 12/09/15 16:00 97.0 83 20 116/53 96 12/09/15 12:00 97.6 87 20 148/95 95 I/O 12/09/15 12/09/15 12/09/15 12/10/15 12/10/15 12/10/15 07:00 15:00 23:00 07:00 15:00 23:00 Intake Total 960 ml 240 ml Balance 960 ml 240 ml Intake Oral 960 ml 240 ml # Voids 1 7 2 # Bowel Movements 2 Objective Remarks GENERAL: Well-nourished, well-developed patient and sitting by the nursing station SKIN: Scaly erythematous flakes on his face EYES: No scleral icterus. No injection or drainage. NECK: Supple, trachea midline. No JVD or lymphadenopathy. CARDIOVASCULAR: Regular rate and rhythm without murmurs RESPIRATORY: Breath sounds equal bilaterally. No wheezing GASTROINTESTINAL: Abdomen soft, non-tender, nondistended. EXTREMITIES: No cyanosis, or edema. s/p right BKA. LLE with 1+ edema, several shallow venous stasis ulcerations on anterior calve, no cellulitis. BACK: Nontender without obvious deformity. No CVA tenderness. Procedures None A/P Problem List: (1) Cellulitis Status: Resolved (2) Ischemic cardiomyopathy Status: Chronic (3) Diabetes mellitus type 2 in obese Status: Chronic (4) S/P BKA (below knee amputation) unilateral Status: Chronic (5) Acute metabolic encephalopathy Status: Acute (6) Bacteremia Status: Resolved (7) Chronic systolic (congestive) heart failure Status: Chronic (8) Venous stasis ulcer of left lower extremity Status: Chronic (9) Shortness of breath Status: Chronic (10) CVA (cerebral vascular accident) Status: Acute (11) Seborrheic dermatitis Status: Acute Assessment and Plan 60-year-old male with - Sepsis. resolved. - Cellulitis of the left lower ext. resolved. - with staph coag neg bacteremia in 4/4 tubes. Staph haemolyticus in aerobic tubes, with different sensitivities, contaminant likely. - Chronic venous stasis ulcers on the left lower ext. Clinically improved- cellulitis resolved. - wound cultures - MSSA, Serratia marcescens - Dr. Messina/TISHA ff; was on Keflex and Cipro for 10 days (vancomycin DCed) and completed 10/26. - Bilateral CVA:MRI showed acute cortical infarct. MRA of head and neck unremarkable. Neurology following. Was on ASA and Plavix. - Continue Statin, Coumadin and monitor INR/PT keep INR between 2 and 3. - Acute metabolic encephalopathy - baseline neuro status unknown but there is suspicion of chronic cognitive impairment/dementia. -CT head was unremarkable for any acute findings. -Mildly elevated NH3 level. Continue lactulose. Liver sonogram with gallstone and sludge -Hold Haldol secondary to tremors. Improving behavior discontinued restraints since 11/03/15 -Continue Seroquel 50 mg at bedtime when necessary on 11/13. - Mild elevation of troponin without upward trend in the setting of CKD - No chest pain. Likely due to CKD. - Diabetic mellitus - Glucose was well controlled. We discontinued all insulin. - accu-check. If needed, we will start low long acting insulin and sliding scale insulin. - CKD stage 4 likely diabetic and from diuretics. Improving and monitor BUN and creatinine in a.m. Avoid nephrotoxins. - Hypernatremia -stable - Metabolic acidosis due to CKD ; resolved - Cardiomyopathy/chronic systolic CHF LVEF 35% on echo 03/2015. Compensated. Continue Coreg 12.5mg BID and enalapril. - Cardiology evaluated patient to consider AICD when patient is able to consent. Currently unable to consent. - Hypertension. Normotensive. Currently on Coreg 12.5 mg twice a day ,enalapril 5 mg daily. Continue to monitor BP - Physical deconditioning: PT following. Out of bed to chair 3 times a day. Fall precautions -UA obtained however with only trace leukocyte esterase and few WBC therefore ruled out UTI. -Poor appetite: Passed swallow eval, now on regular diet -Seborrheic dermatitis: Continue with betamethasone dipropionate topical - DVT prophylaxis with Coumadin Discharge Planning discharge home with [facility] Problem Qualifiers (1) Cellulitis: Jakub Quevedo MD Dec 10, 2015 09:59
[2015-12-10 11:58] VITALS: BP 99/67; PULSE 85; RESP 20; TEMP 97.7; O2SAT 99
[2015-12-10 15:54] VITALS: BP 138/77; PULSE 82; RESP 20; TEMP 97.2; O2SAT 96
[2015-12-10] MEDS ORDERED: WARFARIN SOD 3 MG TAB PO SCH (16:00)
[2015-12-10 20:35] VITALS: BP 158/89; PULSE 72; RESP 20; TEMP 98.6; O2SAT 97
[2015-12-11] VITALS (7 sets, daily range): BP systolic 99–178; BP diastolic 66–108; PULSE 72–84; RESP 20; TEMP 96–98.5; O2SAT 94–98
[2015-12-11] MEDS: ISOSORBIDE MONONITRATE 60 MG TAB PO SCH (05:54)
[2015-12-11 07:18] LABS: INTERNATIONAL NORMALIZED RATIO 1.3 RATIO; PROTHROMBIN TIME - PATIENT 13.8 SEC (9.8-11.4)
[2015-12-11] MEDS: ATORVASTATIN 80 MG TAB PO SCH (07:59)
[2015-12-11] MEDS: CARVEDILOL 12.5 MG TAB PO SCH ×2 (07:59→21:35)
[2015-12-11] MEDS: POLYETHYLENE GLYCOL 17 GM PKG PO SCH (08:00)
[2015-12-11] MEDS: DOCUSATE SODIUM 50 MG/SENNA 8.6 MG TAB PO SCH ×2 (08:00→21:35)
[2015-12-11] MEDS: NYSTATIN 100,000 U/GM PWD 15 GM BTL TOPICAL SCH (08:00)
[2015-12-11] MEDS: LACTULOSE SYRUP 20 GM/30 ML CUP PO SCH (08:00)
[2015-12-11] MEDS: ENALAPRIL MALEATE 5 MG TAB PO SCH (08:00)
[2015-12-11] MEDS: SODIUM CHLORIDE 0.9% FLUSH 5 ML FLUSH FLUSH SCH ×2 (08:01→21:00)
[2015-12-11] MEDS: BETAMETHASONE DIPROPIONATE 0.05% OINT 15 GM TUBE TOP SCH ×2 (08:01→21:36)
--- NOTE | 2015-12-11 10:08 | HHI.PR ---
Subjective Remarks Mr. Amado is a 60 year old male with a history of ischemic cardiomyopathy (EF 35-40%), CABG, stent placement who was found on the floor by family members and subsequently brought to the ED for altered mental status. 12/02/15 -Patient seen and examined. He was seen by the nursing station. No acute event overnight. Currently afebrile. 12/03/15-patient seen and examined. Alert and oriented 2. Patient with cloudy urine also looked episode of urinary retention. Currently afebrile. BP with some ups and low readings. 12/04/15-patient seen and examined. No acute event overnight. Had low BP this morning however patient is symptomatic. Currently afebrile 12/05/15-patient seen and examined. BP now stable and no acute event overnight per nurse report 12/06/15-patient seen and examined. Stable and no acute event overnight. Afebrile 12/07/15-patient seen and examined;NOt much of an appetite; no chest pain or SOB 12/08/15-patient seen and examined; head tremors and initially thought to also have hand tremors however resolved during my exam. Low BP post treatment for hypertension. Now on regular diet past swallow eval this morning. 12/09/15-patient seen and examined; head and hand tremor resolved. BP within normal limit. Currently afebrile. 12/10/15-patient seen and examined. No acute event overnight and stable 12/11/15-patient seen and examined; complains of nausea but no emesis. BP stable Objective Vitals Vital Signs Date Time Temp Pulse Resp B/P Pulse Ox O2 Delivery O2 Flow Rate FiO2 12/11/15 08:28 96.0 72 20 178/108 95 12/11/15 04:00 96.7 74 20 160/88 94 12/11/15 01:27 151/95 12/11/15 00:00 98.5 82 20 162/101 96 12/10/15 20:35 98.6 72 20 158/89 97 12/10/15 15:54 97.2 82 20 138/77 96 12/10/15 11:58 97.7 85 20 99/67 99 I/O 12/10/15 12/10/15 12/10/15 12/11/15 12/11/15 12/11/15 06:59 14:59 22:59 06:59 14:59 22:59 Intake Total 240 ml 480 ml 120 ml 240 ml Balance 240 ml 480 ml 120 ml 240 ml Intake Oral 240 ml 480 ml 120 ml 240 ml # Voids 2 4 1 # Bowel Movements 1 1 Objective Remarks GENERAL: Well-nourished, well-developed patient and sitting by the nursing station SKIN: Scaly erythematous flakes on his face EYES: No scleral icterus. No injection or drainage. NECK: Supple, trachea midline. No JVD or lymphadenopathy. CARDIOVASCULAR: Regular rate and rhythm without murmurs RESPIRATORY: Breath sounds equal bilaterally. No wheezing GASTROINTESTINAL: Abdomen soft, non-tender, nondistended. EXTREMITIES: No cyanosis, or edema. s/p right BKA. LLE with 1+ edema, several shallow venous stasis ulcerations on anterior calve, no cellulitis. BACK: Nontender without obvious deformity. No CVA tenderness. Procedures None A/P Problem List: (1) Cellulitis Status: Resolved (2) Ischemic cardiomyopathy Status: Chronic (3) Diabetes mellitus type 2 in obese Status: Chronic (4) S/P BKA (below knee amputation) unilateral Status: Chronic (5) Acute metabolic encephalopathy Status: Acute (6) Bacteremia Status: Resolved (7) Chronic systolic (congestive) heart failure Status: Chronic (8) Venous stasis ulcer of left lower extremity Status: Chronic (9) Shortness of breath Status: Chronic (10) CVA (cerebral vascular accident) Status: Acute (11) Seborrheic dermatitis Status: Acute Assessment and Plan 60-year-old male with - Sepsis. resolved. - Cellulitis of the left lower ext. resolved. - with staph coag neg bacteremia in 4/4 tubes. Staph haemolyticus in aerobic tubes, with different sensitivities, contaminant likely. - Chronic venous stasis ulcers on the left lower ext. Clinically improved- cellulitis resolved. - wound cultures - MSSA, Serratia marcescens - Dr. Messina/TISHA ff; was on Keflex and Cipro for 10 days (vancomycin DCed) and completed 10/26. - Bilateral CVA:MRI showed acute cortical infarct. MRA of head and neck unremarkable. Neurology following. Was on ASA and Plavix. - Continue Statin, Coumadin and monitor INR/PT keep INR between 2 and 3. - Acute metabolic encephalopathy - baseline neuro status unknown but there is suspicion of chronic cognitive impairment/dementia. -CT head was unremarkable for any acute findings. -Mildly elevated NH3 level. Continue lactulose. Liver sonogram with gallstone and sludge -Hold Haldol secondary to tremors. Improving behavior discontinued restraints since 11/03/15 -Continue Seroquel 50 mg at bedtime when necessary on 11/13. - Mild elevation of troponin without upward trend in the setting of CKD - No chest pain. Likely due to CKD. - Diabetic mellitus - Glucose was well controlled. We discontinued all insulin. - accu-check. If needed, we will start low long acting insulin and sliding scale insulin. - CKD stage 4 likely diabetic and from diuretics. Improving and monitor BUN and creatinine in a.m. Avoid nephrotoxins. - Hypernatremia -stable - Metabolic acidosis due to CKD ; resolved - Cardiomyopathy/chronic systolic CHF LVEF 35% on echo 03/2015. Compensated. Continue Coreg 12.5mg BID and enalapril. - Cardiology evaluated patient to consider AICD when patient is able to consent. Currently unable to consent. - Hypertension. Normotensive. Currently on Coreg 12.5 mg twice a day ,enalapril 5 mg daily. Continue to monitor BP - Physical deconditioning: PT following. Out of bed to chair 3 times a day. Fall precautions -UA obtained however with only trace leukocyte esterase and few WBC therefore ruled out UTI. -Poor appetite: Passed swallow eval, now on regular diet -Nausea: Continue anti-emetic. -Seborrheic dermatitis: Continue with betamethasone dipropionate topical - DVT prophylaxis with Coumadin Discharge Planning discharge home with [facility] Problem Qualifiers (1) Cellulitis: Jakub Quevedo MD Dec 11, 2015 09:31
[2015-12-11] MEDS ORDERED: WARFARIN SOD 2 MG TAB PO SCH (16:00)
[2015-12-11] MEDS ORDERED: WARFARIN SOD 4 MG TAB PO SCH (16:00)
[2015-12-12] VITALS (7 sets, daily range): BP systolic 119–157; BP diastolic 69–93; PULSE 76–80; RESP 17–20; TEMP 97.1–98.1; O2SAT 95–99
[2015-12-12] MEDS: ISOSORBIDE MONONITRATE 60 MG TAB PO SCH (06:04)
[2015-12-12] MEDS: CARVEDILOL 12.5 MG TAB PO SCH ×2 (08:09→20:54)
[2015-12-12] MEDS: LACTULOSE SYRUP 20 GM/30 ML CUP PO SCH (08:09)
[2015-12-12] MEDS: DOCUSATE SODIUM 50 MG/SENNA 8.6 MG TAB PO SCH ×2 (08:09→20:54)
[2015-12-12] MEDS: ATORVASTATIN 80 MG TAB PO SCH (08:09)
[2015-12-12] MEDS: POLYETHYLENE GLYCOL 17 GM PKG PO SCH (08:09)
[2015-12-12] MEDS: ENALAPRIL MALEATE 5 MG TAB PO SCH (08:09)
[2015-12-12] MEDS: SODIUM CHLORIDE 0.9% FLUSH 5 ML FLUSH FLUSH SCH ×2 (08:12→20:54)
[2015-12-12] MEDS: NYSTATIN 100,000 U/GM PWD 15 GM BTL TOPICAL SCH (08:12)
[2015-12-12] MEDS: BETAMETHASONE DIPROPIONATE 0.05% OINT 15 GM TUBE TOP SCH ×2 (08:12→20:54)
[2015-12-12 08:27] LABS: INTERNATIONAL NORMALIZED RATIO 1.3 RATIO; PROTHROMBIN TIME - PATIENT 13.3 SEC (9.8-11.4)
--- NOTE | 2015-12-12 09:58 | HHI.PR ---
Subjective Remarks Mr. Amado is a 60 year old male with a history of ischemic cardiomyopathy (EF 35-40%), CABG, stent placement who was found on the floor by family members and subsequently brought to the ED for altered mental status. 12/02/15 -Patient seen and examined. He was seen by the nursing station. No acute event overnight. Currently afebrile. 12/03/15-patient seen and examined. Alert and oriented 2. Patient with cloudy urine also looked episode of urinary retention. Currently afebrile. BP with some ups and low readings. 12/04/15-patient seen and examined. No acute event overnight. Had low BP this morning however patient is symptomatic. Currently afebrile 12/05/15-patient seen and examined. BP now stable and no acute event overnight per nurse report 12/06/15-patient seen and examined. Stable and no acute event overnight. Afebrile 12/07/15-patient seen and examined;NOt much of an appetite; no chest pain or SOB 12/08/15-patient seen and examined; head tremors and initially thought to also have hand tremors however resolved during my exam. Low BP post treatment for hypertension. Now on regular diet past swallow eval this morning. 12/09/15-patient seen and examined; head and hand tremor resolved. BP within normal limit. Currently afebrile. 12/10/15-patient seen and examined. No acute event overnight and stable 12/11/15-patient seen and examined; complains of nausea but no emesis. BP stable 12/12/15-patient seen and examined; BP Labile; and denies any chest pain or shortness of breath. Afebrile and no acute event overnight Objective Vitals Vital Signs Date Time Temp Pulse Resp B/P Pulse Ox O2 Delivery O2 Flow Rate FiO2 12/12/15 08:08 97.8 78 17 142/92 96 12/12/15 04:00 97.3 78 20 157/93 96 12/12/15 00:00 98.0 79 20 156/87 95 12/11/15 20:00 96.3 80 20 143/88 95 12/11/15 16:15 98.1 84 20 105/66 98 12/11/15 12:05 98.3 79 20 99/67 95 I/O 8/1212/11/15 12/11/15 12/12/15 12/12/15 12/12/15 07:00 15:00 23:00 07:00 15:00 23:00 Intake Total 240 ml 900 ml 60 ml Balance 240 ml 900 ml 60 ml Intake Oral 240 ml 900 ml 60 ml # Voids 1 3 2 # Bowel Movements 1 1 1 Objective Remarks GENERAL: Well-nourished, well-developed patient and sitting by the nursing station SKIN: Scaly erythematous flakes on his face EYES: No scleral icterus. No injection or drainage. NECK: Supple, trachea midline. No JVD or lymphadenopathy. CARDIOVASCULAR: Regular rate and rhythm without murmurs RESPIRATORY: Breath sounds equal bilaterally. No wheezing GASTROINTESTINAL: Abdomen soft, non-tender, nondistended. EXTREMITIES: No cyanosis, or edema. s/p right BKA. LLE with 1+ edema, several shallow venous stasis ulcerations on anterior calve, no cellulitis. BACK: Nontender without obvious deformity. No CVA tenderness. Procedures None A/P Problem List: (1) Cellulitis Status: Resolved (2) Ischemic cardiomyopathy Status: Chronic (3) Diabetes mellitus type 2 in obese Status: Chronic (4) S/P BKA (below knee amputation) unilateral Status: Chronic (5) Acute metabolic encephalopathy Status: Acute (6) Bacteremia Status: Resolved (7) Chronic systolic (congestive) heart failure Status: Chronic (8) Venous stasis ulcer of left lower extremity Status: Chronic (9) Shortness of breath Status: Chronic (10) CVA (cerebral vascular accident) Status: Acute (11) Seborrheic dermatitis Status: Acute Assessment and Plan 60-year-old male with - Sepsis. resolved. - Cellulitis of the left lower ext. resolved. - with staph coag neg bacteremia in 4/4 tubes. Staph haemolyticus in aerobic tubes, with different sensitivities, contaminant likely. - Chronic venous stasis ulcers on the left lower ext. Clinically improved- cellulitis resolved. - wound cultures - MSSA, Serratia marcescens - Dr. Messina/TISHA ff; was on Keflex and Cipro for 10 days (vancomycin DCed) and completed 10/26. - Bilateral CVA:MRI showed acute cortical infarct. MRA of head and neck unremarkable. Neurology following. Was on ASA and Plavix. - Continue Statin, Coumadin and monitor INR/PT keep INR between 2 and 3. - Acute metabolic encephalopathy - baseline neuro status unknown but there is suspicion of chronic cognitive impairment/dementia. -CT head was unremarkable for any acute findings. -Mildly elevated NH3 level. Continue lactulose. Liver sonogram with gallstone and sludge -Hold Haldol secondary to tremors. Improving behavior discontinued restraints since 11/03/15 -Continue Seroquel 50 mg at bedtime when necessary on 11/13. - Mild elevation of troponin without upward trend in the setting of CKD - No chest pain. Likely due to CKD. - Diabetic mellitus - Glucose was well controlled. We discontinued all insulin. - accu-check. If needed, we will start low long acting insulin and sliding scale insulin. - CKD stage 4 likely diabetic and from diuretics. Improving and monitor BUN and creatinine in a.m. Avoid nephrotoxins. - Hypernatremia -stable - Metabolic acidosis due to CKD ; resolved - Cardiomyopathy/chronic systolic CHF LVEF 35% on echo 03/2015. Compensated. Continue Coreg 12.5mg BID and enalapril. - Cardiology evaluated patient to consider AICD when patient is able to consent. Currently unable to consent. - Hypertension. BP Labile. Increase Coreg to 25 mg twice a day , continue enalapril 5 mg daily. We will give extra Coreg 12.5 mg 1 now today. Continue to monitor BP - Physical deconditioning: PT following. Out of bed to chair 3 times a day. Fall precautions -UA obtained however with only trace leukocyte esterase and few WBC therefore ruled out UTI. -Poor appetite: Passed swallow eval, now on regular diet -Nausea: Continue anti-emetic. -Seborrheic dermatitis: Continue with betamethasone dipropionate topical - DVT prophylaxis with Coumadin Check CBC, BMP in a.m. Problem Qualifiers (1) Cellulitis: Jakub Quevedo MD Dec 12, 2015 09:58
[2015-12-12] MEDS ORDERED: CARVEDILOL 12.5 MG TAB PO ONE (10:00)
[2015-12-12] MEDS ORDERED: WARFARIN SOD 3 MG TAB PO SCH (16:00)
[2015-12-12] MEDS ORDERED: WARFARIN SOD 5 MG TAB PO ONE (16:00)
[2015-12-13 00:25] VITALS: BP 137/78; PULSE 83; RESP 19; TEMP 98.1; O2SAT 97
[2015-12-13 04:10] VITALS: BP 139/90; PULSE 79; RESP 19; TEMP 96.3; O2SAT 96
[2015-12-13] MEDS: ISOSORBIDE MONONITRATE 60 MG TAB PO SCH (05:32)
[2015-12-13 07:22] LABS: AUTOMATED NEUTROPHIL # 7.9 TH/MM3 (1.8-7.7); BASOPHIL # 0.1 TH/MM3 (0-0.2); BASOPHIL % 0.6 % (0.0-2.0); EOSINOPHIL # 0.4 TH/MM3 (0-0.4); EOSINOPHIL % 3.5 % (0.0-4.0); HEMATOCRIT 37.1 % (39.0-51.0); HEMO FLAGS DIFF FINAL; LYMPH % 16.3 % (9.0-44.0); LYMPHOCYTE # 1.8 TH/MM3 (1.0-4.8); MEAN CELL VOLUME 80.7 FL (80.0-100.0); MEAN CORPUSCULAR HEMOGLOBIN 26.3 PG (27.0-34.0); MEAN CORPUSCULAR HGB CONC 32.6 % (32.0-36.0); MONO % 6.7 % (0.0-8.0); NEUT % 72.9 % (16.0-70.0); PLATELET COUNT 172 TH/MM3 (150-450); RED BLOOD COUNT 4.59 MIL/MM3 (4.50-5.90); RED CELL DISTRIBUTION WIDTH 16.6 % (11.6-17.2); WHITE BLOOD COUNT 10.8 TH/MM3 (4.0-11.0)
[2015-12-13 07:38] LABS: INTERNATIONAL NORMALIZED RATIO 1.5 RATIO; PROTHROMBIN TIME - PATIENT 16.1 SEC (9.8-11.4)
[2015-12-13 07:50] LABS: BICARBONATE 25.4 MEQ/L (21.0-32.0); POTASSIUM 4.3 MEQ/L (3.5-5.1)
[2015-12-13 08:05] VITALS: BP 101/67; PULSE 83; RESP 18; TEMP 96.7; O2SAT 99
[2015-12-13] MEDS: CARVEDILOL 12.5 MG TAB PO SCH ×2 (08:08→22:42)
[2015-12-13] MEDS: ENALAPRIL MALEATE 5 MG TAB PO SCH (08:08)
[2015-12-13] MEDS: SODIUM CHLORIDE 0.9% FLUSH 5 ML FLUSH FLUSH SCH ×2 (08:08→21:00)
[2015-12-13] MEDS: POLYETHYLENE GLYCOL 17 GM PKG PO SCH (08:09)
[2015-12-13] MEDS: ATORVASTATIN 80 MG TAB PO SCH (08:09)
[2015-12-13] MEDS: DOCUSATE SODIUM 50 MG/SENNA 8.6 MG TAB PO SCH ×2 (08:09→22:42)
[2015-12-13] MEDS: NYSTATIN 100,000 U/GM PWD 15 GM BTL TOPICAL SCH (08:15)
[2015-12-13] MEDS: BETAMETHASONE DIPROPIONATE 0.05% OINT 15 GM TUBE TOP SCH ×2 (08:15→21:00)
[2015-12-13] MEDS: LACTULOSE SYRUP 20 GM/30 ML CUP PO SCH (08:15)
--- NOTE | 2015-12-13 10:44 | HHI.PR ---
Subjective Remarks Mr. Amado is a 60 year old male with a history of ischemic cardiomyopathy (EF 35-40%), CABG, stent placement who was found on the floor by family members and subsequently brought to the ED for altered mental status. 12/02/15 -Patient seen and examined. He was seen by the nursing station. No acute event overnight. Currently afebrile. 12/03/15-patient seen and examined. Alert and oriented 2. Patient with cloudy urine also looked episode of urinary retention. Currently afebrile. BP with some ups and low readings. 12/04/15-patient seen and examined. No acute event overnight. Had low BP this morning however patient is symptomatic. Currently afebrile 12/05/15-patient seen and examined. BP now stable and no acute event overnight per nurse report 12/06/15-patient seen and examined. Stable and no acute event overnight. Afebrile 12/07/15-patient seen and examined;NOt much of an appetite; no chest pain or SOB 12/08/15-patient seen and examined; head tremors and initially thought to also have hand tremors however resolved during my exam. Low BP post treatment for hypertension. Now on regular diet past swallow eval this morning. 12/09/15-patient seen and examined; head and hand tremor resolved. BP within normal limit. Currently afebrile. 12/10/15-patient seen and examined. No acute event overnight and stable 12/11/15-patient seen and examined; complains of nausea but no emesis. BP stable 12/12/15-patient seen and examined; BP Labile; and denies any chest pain or shortness of breath. Afebrile and no acute event overnight 12/13/15-patient seen and examined; currently normotensive and afebrile; no acute event overnight and resting comfortably in bed Objective Vitals Vital Signs Date Time Temp Pulse Resp B/P Pulse Ox O2 Delivery O2 Flow Rate FiO2 12/13/15 08:05 96.7 83 18 101/67 99 12/13/15 04:10 96.3 79 19 139/90 96 12/13/15 00:25 98.1 83 19 137/78 97 12/12/15 20:26 97.3 80 19 148/69 97 12/12/15 16:00 97.1 80 19 119/78 97 12/12/15 12:46 76 129/80 95 12/12/15 12:00 98.1 76 20 131/79 99 I/O 12/12/15 12/12/15 12/12/15 12/13/15 12/13/15 12/13/15 07:00 15:00 23:00 07:00 15:00 23:00 Intake Total 60 ml 480 ml 760 ml Balance 60 ml 480 ml 760 ml Intake Oral 60 ml 480 ml 760 ml # Voids 2 3 4 # Bowel Movements 1 0 0 Result Diagram: 12/13/15 0712/13/15700 Objective Remarks GENERAL: Well-nourished, well-developed patient and resting in bed SKIN: Scaly erythematous flakes on his face EYES: No scleral icterus. No injection or drainage. NECK: Supple, trachea midline. No JVD or lymphadenopathy. CARDIOVASCULAR: Regular rate and rhythm without murmurs RESPIRATORY: Breath sounds equal bilaterally. No wheezing GASTROINTESTINAL: Abdomen soft, non-tender, nondistended. EXTREMITIES: No cyanosis, or edema. s/p right BKA. LLE with 1+ edema, several shallow venous stasis ulcerations on anterior calve, no cellulitis. BACK: Nontender without obvious deformity. No CVA tenderness. Procedures None A/P Problem List: (1) Cellulitis Status: Resolved (2) Ischemic cardiomyopathy Status: Chronic (3) Diabetes mellitus type 2 in obese Status: Chronic (4) S/P BKA (below knee amputation) unilateral Status: Chronic (5) Acute metabolic encephalopathy Status: Resolved (6) Bacteremia Status: Resolved (7) Chronic systolic (congestive) heart failure Status: Chronic (8) Venous stasis ulcer of left lower extremity Status: Chronic (9) Shortness of breath Status: Chronic (10) CVA (cerebral vascular accident) Status: Chronic (11) Seborrheic dermatitis Status: Resolved Assessment and Plan 60-year-old male with - Sepsis. resolved. - Cellulitis of the left lower ext. resolved. - with staph coag neg bacteremia in 4/4 tubes. Staph haemolyticus in aerobic tubes, with different sensitivities, contaminant likely. - Chronic venous stasis ulcers on the left lower ext. Clinically improved- cellulitis resolved. - wound cultures - MSSA, Serratia marcescens - Dr. Dimayuga/ID ff; was on Keflex and Cipro for 10 days (vancomycin DCed) and completed 10/26. - Bilateral CVA:MRI showed acute cortical infarct. MRA of head and neck unremarkable. Neurology following. Was on ASA and Plavix. - Continue Statin, Coumadin and monitor INR/PT keep INR between 2 and 3. - Acute metabolic encephalopathy - baseline neuro status unknown but there is suspicion of chronic cognitive impairment/dementia. -CT head was unremarkable for any acute findings. -Mildly elevated NH3 level. Continue lactulose. Liver sonogram with gallstone and sludge -Hold Haldol secondary to tremors. Improving behavior discontinued restraints since 11/03/15 -Continue Seroquel 50 mg at bedtime when necessary on 11/13. - Mild elevation of troponin without upward trend in the setting of CKD - No chest pain. Likely due to CKD. Now stable - Diabetic mellitus - Glucose was well controlled. We discontinued all insulin. - accu-check. If needed, we will start low long acting insulin and sliding scale insulin. - Acute on CKD stage 4 likely diabetic and from diuretics. Start Gentle IV fluid hydration and monitor BUN and creatinine. Avoid nephrotoxins. - Hypernatremia -stable - Metabolic acidosis due to CKD ; resolved - Cardiomyopathy/chronic systolic CHF LVEF 35% on echo 03/2015. Compensated. Continue Coreg 12.5mg BID and enalapril. - Cardiology evaluated patient to consider AICD when patient is able to consent. Currently unable to consent. - Hypertension. Currently normotensive on Coreg 25 mg twice a day , enalapril 5 mg daily. Continue to monitor BP - Physical deconditioning: PT following. Out of bed to chair 3 times a day. Fall precautions -UA obtained however with only trace leukocyte esterase and few WBC therefore ruled out UTI. -Poor appetite: Passed swallow eval, now on regular diet -Seborrheic dermatitis: Improving, Continue with betamethasone dipropionate topical - DVT prophylaxis with Coumadin Problem Qualifiers (1) Cellulitis: Jakub Quevedo MD Dec 13, 2015 10:44
[2015-12-13 12:16] VITALS: BP 92/65; PULSE 85; RESP 18; TEMP 97.4; O2SAT 95
[2015-12-13] MEDS: SODIUM CHLOR 0.9% 1000 ML INJ 1,000 ML IV SCH ×2 (13:56→16:19)
[2015-12-13 16:00] VITALS: BP 106/58; PULSE 79; RESP 19; TEMP 97.8; O2SAT 94
[2015-12-13] MEDS ORDERED: WARFARIN SOD 5 MG TAB PO ONE (16:00)
[2015-12-13 20:15] VITALS: BP 139/90; PULSE 93; RESP 17; TEMP 97.4; O2SAT 93
[2015-12-14 00:35] VITALS: BP 131/85; PULSE 78; RESP 17; TEMP 96; O2SAT 97
[2015-12-14] MEDS: SODIUM CHLOR 0.9% 1000 ML INJ 1,000 ML IV SCH ×3 (02:33→23:40)
[2015-12-14 04:25] VITALS: BP 139/67; PULSE 77; RESP 17; TEMP 97.4; O2SAT 96
[2015-12-14] MEDS: ISOSORBIDE MONONITRATE 60 MG TAB PO SCH (06:19)
[2015-12-14 08:39] VITALS: BP 110/63; PULSE 78; RESP 18; TEMP 97; O2SAT 95
[2015-12-14 08:49] LABS: INTERNATIONAL NORMALIZED RATIO 1.8 RATIO; PROTHROMBIN TIME - PATIENT 19.6 SEC (9.8-11.4)
[2015-12-14 08:54] LABS: POTASSIUM 4.2 MEQ/L (3.5-5.1)
[2015-12-14] MEDS: ENALAPRIL MALEATE 5 MG TAB PO SCH ×2 (09:00→23:37)
[2015-12-14] MEDS: POLYETHYLENE GLYCOL 17 GM PKG PO SCH (09:00)
[2015-12-14] MEDS: CARVEDILOL 12.5 MG TAB PO SCH ×2 (09:55→23:37)
[2015-12-14] MEDS: DOCUSATE SODIUM 50 MG/SENNA 8.6 MG TAB PO SCH ×2 (09:55→23:37)
[2015-12-14] MEDS: ATORVASTATIN 80 MG TAB PO SCH (09:55)
[2015-12-14] MEDS: SODIUM CHLORIDE 0.9% FLUSH 5 ML FLUSH FLUSH SCH ×2 (09:56→21:00)
[2015-12-14] MEDS: LACTULOSE SYRUP 20 GM/30 ML CUP PO SCH (09:56)
[2015-12-14] MEDS: NYSTATIN 100,000 U/GM PWD 15 GM BTL TOPICAL SCH (09:59)
--- NOTE | 2015-12-14 12:20 | HHI.PR ---
Subjective Remarks Patient seen and examined at the nurse's station. Discussed with RN, patient is sometimes confused, no acute issues. He is eating lunch and is upset that he got finished today. He remains pleasantly confused. He has no complaints today. He denies any fevers or chills. Objective Vitals Vital Signs Date Time Temp Pulse Resp B/P Pulse Ox O2 Delivery O2 Flow Rate FiO2 12/14/15 08:39 97.0 78 18 110/63 95 12/14/15 04:25 97.4 77 17 139/67 96 12/14/15 00:35 96.0 78 17 131/85 97 12/13/15 20:15 97.4 93 17 139/90 93 12/13/15 16:00 97.8 79 19 106/58 94 12/13/15 12:16 97.4 85 18 92/65 95 I/O 12/13/15 12/13/15 12/13/15 12/14/15 12/14/15 12/14/15 07:00 15:00 23:00 07:00 15:00 23:00 Intake Total 760 ml 600 ml 1536 ml 1007 ml Balance 760 ml 600 ml 1536 ml 1007 ml Intake Oral 760 ml 600 ml 680 ml 120 ml IV Total 856 ml 887 ml # Voids 4 3 2 2 # Bowel Movements 0 0 1 1 Result Diagram: 12/13/15 0701 12/14/15 0655 Objective Remarks GENERAL: Well-developed well-nourished. In no acute distress. SKIN: Warm and dry. HEENT: Normocephalic. Pupils equal and round. Mucous membranes pink and moist. CARDIOVASCULAR: Regular rate and rhythm. No murmur appreciated. RESPIRATORY: No accessory muscle use. Clear to auscultation. Breath sounds equal bilaterally. GASTROINTESTINAL: Abdomen soft, non-tender, nondistended. Bowel sounds x4. MUSCULOSKELETAL: Right BKA. No clubbing or cyanosis. No edema. NEUROLOGICAL: Awake and alert. No focal neurological deficits. Moves upper and lower extremities spontaneously. Normal speech. PSYCHIATRIC: Pleasantly confused mood and affect; insight and judgment poor. Procedures None A/P Problem List: (1) Cellulitis Status: Resolved (2) Ischemic cardiomyopathy Status: Chronic (3) Diabetes mellitus type 2 in obese Status: Chronic (4) S/P BKA (below knee amputation) unilateral Status: Chronic (5) Acute metabolic encephalopathy Status: Resolved (6) Bacteremia Status: Resolved (7) Chronic systolic (congestive) heart failure Status: Chronic (8) Venous stasis ulcer of left lower extremity Status: Chronic (9) Shortness of breath Status: Chronic (10) CVA (cerebral vascular accident) Status: Chronic (11) Seborrheic dermatitis Status: Resolved Assessment and Plan 60-year-old male with - Sepsis. resolved. Repeat blood cultures from 10/15 and 10/30 with no growth. - Cellulitis of the left lower ext. resolved. - with staph coag neg bacteremia in 4/4 tubes. Staph haemolyticus in aerobic tubes, with different sensitivities, contaminant likely. - Chronic venous stasis ulcers on the left lower ext. Clinically improved- cellulitis resolved. - wound cultures - MSSA, Serratia marcescens - Dr. Messina/ID ff; was on Keflex and Cipro for 10 days (vancomycin DCed) and completed 10/26. - Bilateral CVA:MRI showed acute cortical infarct. MRA of head and neck unremarkable. Neurology following. S/p ASA and Plavix. Continue with Statin. Continue Coumadin and monitor INR/PT keep INR between 2 and 3, pharmacy consulted for assistance with management. - Acute metabolic encephalopathy - baseline neuro status unknown but there is suspicion of chronic cognitive impairment/dementia. -CT head was unremarkable for any acute findings. -Mildly elevated NH3 level. Continue lactulose. Liver sonogram with gallstone and sludge -Consulted psychiatry who started Haldol and discontinued Geodon. Improving behavior discontinued restraints since 11/03/15 -Continue Seroquel 50 mg at bedtime when necessary added on 11/13. - Mild elevation of troponin without upward trend in the setting of CKD/CHF - No chest pain. Likely due to CKD/CHF. 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 Chronic, stable. Avoid nephrotoxins. Monitor BMP - Hypernatremia -stable - Metabolic acidosis due to CKD ; resolved - Cardiomyopathy/chronic systolic CHF LVEF 35% on echo 03/2015. Denies shortness of breath. Compensated. Ct Coreg 25mg BID and enalapril. Lasix IV as needed. -Cardiology following to consider AICD when patient is able to consent. Currently unable to consent. - Hypertension. Chronic, controlled. Continue enalapril and carvedilol - Diabetic mellitus - Glucose was well controlled. We discontinued all insulin. - accu-check. If needed, we will start low long acting insulin and sliding scale insulin. - PAD -stable. Continue above meds - Physical deconditioning: PT following. Out of bed to chair 3 times a day. Fall precautions - DVT prophylaxis with Coumadin Discharge Planning Patient is a difficult placement issue,case management assisting Problem Qualifiers (1) Cellulitis: Lars Rich Dec 14, 2015 12:20 Jennifer Sánchez MD Dec 14, 2015 13:44
[2015-12-14 12:46] VITALS: BP 98/76; PULSE 83; RESP 18; TEMP 98; O2SAT 95
[2015-12-14] MEDS ORDERED: POLYETHYLENE GLYCOL 17 GM PKG PO PRN (17:00)
[2015-12-14 18:45] VITALS: BP 127/79; PULSE 80; RESP 18; TEMP 96.9; O2SAT 96
[2015-12-14 20:00] VITALS: BP 129/69; PULSE 84; RESP 20; TEMP 98.7; O2SAT 98
[2015-12-14] MEDS: BETAMETHASONE DIPROPIONATE 0.05% OINT 15 GM TUBE TOP SCH (23:38)
[2015-12-15] VITALS (7 sets, daily range): BP systolic 93–163; BP diastolic 53–92; PULSE 72–79; RESP 17–20; TEMP 95.5–98.4; O2SAT 95–99
[2015-12-15] MEDS: SODIUM CHLOR 0.9% 1000 ML INJ 1,000 ML IV SCH ×3 (02:45→23:29)
[2015-12-15 06:07] LABS: INTERNATIONAL NORMALIZED RATIO 2.3 RATIO; PROTHROMBIN TIME - PATIENT 25.1 SEC (9.8-11.4)
[2015-12-15] MEDS: ISOSORBIDE MONONITRATE 60 MG TAB PO SCH (06:15)
[2015-12-15] MEDS: NYSTATIN 100,000 U/GM PWD 15 GM BTL TOPICAL SCH (09:00)
[2015-12-15] MEDS: BETAMETHASONE DIPROPIONATE 0.05% OINT 15 GM TUBE TOP SCH ×2 (09:00→23:35)
[2015-12-15] MEDS ORDERED: PILL SPLITTER OTHER PRN (09:15)
[2015-12-15] MEDS: SODIUM CHLORIDE 0.9% FLUSH 5 ML FLUSH FLUSH SCH ×2 (09:17→23:23)
[2015-12-15] MEDS: DOCUSATE SODIUM 50 MG/SENNA 8.6 MG TAB PO SCH ×2 (09:17→23:23)
[2015-12-15] MEDS: LACTULOSE SYRUP 20 GM/30 ML CUP PO SCH (09:17)
[2015-12-15] MEDS: ATORVASTATIN 80 MG TAB PO SCH (09:17)
[2015-12-15] MEDS: CARVEDILOL 12.5 MG TAB PO SCH ×2 (09:23→23:23)
--- NOTE | 2015-12-15 14:24 | HHI.PR ---
Subjective Remarks Patient sleeping in bed upon arrival. No issues reported. He's been eating and drinking well. Denies any fevers or chills. Denies any pain. Objective Vitals Vital Signs Date Time Temp Pulse Resp B/P Pulse Ox O2 Delivery O2 Flow Rate FiO2 12/15/15 12:00 98.4 72 18 93/53 99 12/15/15 08:51 97.1 72 18 146/85 97 12/15/15 06:24 96.2 72 20 163/92 95 12/15/15 00:00 97.2 79 20 147/86 96 12/14/15 20:00 98.7 84 20 129/69 98 12/14/15 18:45 96.9 80 18 127/79 96 I/O 12/14/15 12/14/15 12/14/15 12/15/15 12/15/15 12/15/15 07:00 15:00 23:00 07:00 15:00 23:00 Intake Total 1007 ml 1160 ml 240 ml Balance 1007 ml 1160 ml 240 ml Intake Oral 120 ml 720 ml 240 ml IV Total 887 ml 440 ml # Voids 2 1 3 3 # Bowel Movements 1 2 0 0 Result Diagram: 12/13/15 0701 12/14/15 0655 Objective Remarks GENERAL: Well-developed well-nourished. In no acute distress. SKIN: Warm and dry. Scaly skin of the face. Left lower extremity with a few small shallow ulcerations. HEENT: Normocephalic. Pupils equal and round. Mucous membranes pink and moist. CARDIOVASCULAR: Regular rate and rhythm. No murmur appreciated. RESPIRATORY: No accessory muscle use. Clear to auscultation. Breath sounds equal bilaterally. GASTROINTESTINAL: Abdomen soft, non-tender, nondistended. Bowel sounds x4. MUSCULOSKELETAL: Right BKA. No clubbing or cyanosis. No edema. NEUROLOGICAL: Awake and alert. No focal neurological deficits. Moves upper and lower extremities spontaneously. Normal speech. PSYCHIATRIC: Pleasantly confused mood and affect; insight and judgment poor. Procedures None A/P Problem List: (1) Cellulitis Status: Resolved (2) Ischemic cardiomyopathy Status: Chronic (3) Diabetes mellitus type 2 in obese Status: Chronic (4) S/P BKA (below knee amputation) unilateral Status: Chronic (5) Acute metabolic encephalopathy Status: Resolved (6) Bacteremia Status: Resolved (7) Chronic systolic (congestive) heart failure Status: Chronic (8) Venous stasis ulcer of left lower extremity Status: Chronic (9) Shortness of breath Status: Chronic (10) CVA (cerebral vascular accident) Status: Chronic (11) Seborrheic dermatitis Status: Resolved Assessment and Plan 60-year-old male with - Sepsis. resolved. Repeat blood cultures from 10/15 and 10/30 with no growth. - Cellulitis of the left lower ext. resolved. - with staph coag neg bacteremia in 4/4 tubes. Staph haemolyticus in aerobic tubes, with different sensitivities, contaminant likely. - Chronic venous stasis ulcers on the left lower ext. Clinically improved- cellulitis resolved. - wound cultures - MSSA, Serratia marcescens - Dr. Messina/TISHA ff; was on Keflex and Cipro for 10 days (vancomycin DCed) and completed 10/26. - Bilateral CVA:MRI showed acute cortical infarct. MRA of head and neck unremarkable. Neurology following. S/p ASA and Plavix. Continue with Statin. Continue Coumadin and monitor INR/PT keep INR between 2 and 3, pharmacy consulted for assistance with management. - Acute metabolic encephalopathy - baseline neuro status unknown but there is suspicion of chronic cognitive impairment/dementia. -CT head was unremarkable for any acute findings. -Mildly elevated NH3 level. Continue lactulose. Liver sonogram with gallstone and sludge -Consulted psychiatry who started Haldol and discontinued Geodon. Improving behavior discontinued restraints since 11/03/15 -Continue Seroquel 50 mg at bedtime when necessary added on 11/13. - Mild elevation of troponin without upward trend in the setting of CKD/CHF - No chest pain. Likely due to CKD/CHF. 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 Chronic, stable. Avoid nephrotoxins. Monitor BMP - Hypernatremia -stable - Metabolic acidosis due to CKD ; resolved - Cardiomyopathy/chronic systolic CHF LVEF 35% on echo 03/2015. Denies shortness of breath. Compensated. Ct Coreg 25mg BID and enalapril. Lasix IV as needed. -Cardiology following to consider AICD when patient is able to consent. Currently unable to consent. - Hypertension. Chronic, controlled. Continue enalapril and carvedilol - Diabetic mellitus - Glucose was well controlled. We discontinued all insulin. - accu-check. If needed, we will start low long acting insulin and sliding scale insulin. - PAD -stable. Continue above meds - Physical deconditioning: PT following. Out of bed to chair 3 times a day. Fall precautions - DVT prophylaxis with Coumadin Discharge Planning Patient is a difficult placement issue,case management assisting Problem Qualifiers (1) Cellulitis: Lars Rich Dec 15, 2015 14:24
[2015-12-15] MEDS ORDERED: WARFARIN SOD 1 MG TAB PO SCH (16:00)
[2015-12-15] MEDS: ENALAPRIL MALEATE 5 MG TAB PO SCH (23:23)
[2015-12-16] MEDS: SODIUM CHLOR 0.9% 1000 ML INJ 1,000 ML IV SCH ×3 (04:26→18:45)
[2015-12-16 04:37] VITALS: BP 118/70; PULSE 70; RESP 18; TEMP 98.6; O2SAT 96
[2015-12-16 06:08] LABS: INTERNATIONAL NORMALIZED RATIO 2.2 RATIO; PROTHROMBIN TIME - PATIENT 23.8 SEC (9.8-11.4)
[2015-12-16] MEDS: ISOSORBIDE MONONITRATE 60 MG TAB PO SCH (06:32)
[2015-12-16] MEDS: CARVEDILOL 12.5 MG TAB PO SCH ×2 (07:58→22:28)
[2015-12-16] MEDS: DOCUSATE SODIUM 50 MG/SENNA 8.6 MG TAB PO SCH ×2 (07:58→22:28)
[2015-12-16] MEDS: LACTULOSE SYRUP 20 GM/30 ML CUP PO SCH (07:59)
[2015-12-16] MEDS: ATORVASTATIN 80 MG TAB PO SCH (07:59)
[2015-12-16] MEDS: SODIUM CHLORIDE 0.9% FLUSH 5 ML FLUSH FLUSH SCH ×2 (07:59→22:29)
[2015-12-16 08:00] VITALS: BP 142/83; PULSE 76; RESP 20; TEMP 96.8; O2SAT 99
[2015-12-16] MEDS: NYSTATIN 100,000 U/GM PWD 15 GM BTL TOPICAL SCH (09:00)
[2015-12-16] MEDS: BETAMETHASONE DIPROPIONATE 0.05% OINT 15 GM TUBE TOP SCH ×2 (09:00→22:30)
[2015-12-16 12:00] VITALS: BP 140/68; PULSE 75; RESP 20; TEMP 98.2; O2SAT 96
--- NOTE | 2015-12-16 14:09 | HHI.PR ---
Subjective Remarks Follow up for CVA with encephalopathy. The patient is seen lying in bed with eyes closed, opens upon me entering the room. States he's tired today so he decided to lay down for a nap. He ate lunch, tolerated well. He has no medical complaints including no pain, headache, cough, chest pain, shortness of breath, or abdominal complaints. However has not had a BM in 2 days, he states sometimes he goes 2-3 days without a BM. He denies any abdominal pain, nausea, vomiting. Objective Vitals Vital Signs Date Time Temp Pulse Resp B/P Pulse Ox O2 Delivery O2 Flow Rate FiO2 12/16/15 12:00 98.2 75 20 140/68 96 12/16/15 08:00 96.8 76 20 142/83 99 12/16/15 04:37 98.6 70 18 118/70 96 12/15/15 23:19 95.5 72 20 97/ 95 12/15/15 20:21 97.9 75 20 112/72 98 12/15/15 15:23 96.3 73 17 139/81 97 I/O 12/15/15 12/15/15 12/15/15 12/16/15 12/16/15 12/16/15 07:00 15:00 23:00 07:00 15:00 23:00 Intake Total 480 ml 600 ml Balance 480 ml 600 ml Intake Oral 480 ml 600 ml # Voids 3 2 5 # Bowel Movements 0 0 0 Result Diagram: 12/13/15 0701 12/14/15 0655 Imaging Last Impressions Chest X-Ray 11/06/15 0000 Signed Impressions: Service Date/Time: Friday, November 06, 2015 11:35 - CONCLUSION: Compensated cardiomegaly, history of bypass otherwise negative. Superior most sternal wire is fractured. Didier Clay MD FACR Liver Ultrasound 10/30/15 0000 Signed Impressions: Service Date/Time: Friday, October 30, 2015 17:29 - CONCLUSION: 1. Cholelithiasis with probable gallbladder sludge and mild gallbladder distention. 2. Splenomegaly. Sameer Alexandra MD Modified Barium Swallow 10/27/15 0000 Signed Impressions: Service Date/Time: Tuesday, October 27, 2015 00:00 - CONCLUSION: Negative for penetration or aspiration. Please see speech pathology report. Tai Cohen MD Brain MRI 10/22/15 Signed Impressions: Service Date/Time: September 14:38 - CONCLUSION: 1. No significant interval change is identified. There is stable restricted diffusion in the left basal ganglia representing an area of recent ischemia. There are no findings to indicate hemorrhagic transformation. The previously documented signal change within the right cerebral peduncle has nearly normalized. 2. Stable chronic white matter changes. Camacho Culp MD Neck Magnetic Resonance Angiography 10/21/15 Signed Impressions: Service Date/Time: Wednesday, October 21, 2015 12:52 - CONCLUSION: . 1. Unremarkable MRA of the carotid arteries bilaterally. 2. Nonspecific possible collateral vessels in the soft tissues posterior to the right vertebral artery. The right verbal artery appears to be patent. If clinically indicated, a CTA could be performed for further evaluation. Abiodun Hall MD Head Magnetic Resonance Angiography 10/21/15 Signed Impressions: Service Date/Time: Wednesday, October 21, 2015 12:52 - CONCLUSION: Unremarkable MRA of the brain. Abiodun Hall MD Head CT 10/15/152116 Signed Impressions: Service Date/Time: September 21:47 - CONCLUSION: 1. No evidence of hemorrhage or mass effect. 2. Lacunar infarct right thalamus, left basal ganglia and adjacent to the left lateral ventricular body. 3. No skull fracture seen. Daryl Varner MD Objective Remarks GENERAL: Well-nourished, well-developed elderly bearded male patient in [facility]. SKIN: Warm and dry. No rash. LLE with few superficial ulcerations, healing, with scabs. HEAD: Normocephalic. Atraumatic. NECK: Supple. Trachea midline. CARDIOVASCULAR: Regular rate and rhythm. S1, S2 noted. No murmur appreciated. RESPIRATORY: No accessory muscle use. Clear to auscultation. Breath sounds equal bilaterally. GASTROINTESTINAL: Abdomen soft, non-tender, nondistended. Normoactive bowel sounds x4. MUSCULOSKELETAL: Chronic Right BKA. Extremities without clubbing, cyanosis, or edema. NEUROLOGICAL: Awake and alert. No obvious cranial nerve deficits. Motor grossly within normal limits. 5/5 muscle strength in bilateral upper and lower extremities. Normal speech. PSYCHIATRIC: Appropriate mood and affect; insight and judgment poor. Procedures None Medications and IVs Current Medications Medications (Trade) Dose Ordered Sig/Estuardo Route Start Time Stop Time Status Last Admin (NS Flush) 2 ml UNSCH PRN FLUSH 10/15/15 23:30 (NS Flush) 2 ml BID FLUSH 10/16/15 09:00 12/16/15 07:59 (Zofran Inj) 4 mg Q6H PRN IVP 10/15/15 23:30 (Dulcolax Supp) [address] 10/15/15 23:30 11/04/15 13:56 (Narcan Inj) 0.4 mg UNSCH PRN IV 10/15/15 23:30 (Lipitor) 80 mg DAILY PO 10/16/15 09:00 12/16/15 07:59 (Imdur) 60 mg DAILY@07 PO 10/16/15 07:00 12/16/15 06:32 Phenol 2 spray 2 spray Q2H PRN MT 10/29/15 12:00 (Coumadin Consult Pharmacy) 0 ml @ 0 mls/hr UNSCH XX 10/30/15 05:30 (Tylenol) 650 mg Q4H PRN PO 10/30/15 05:30 (Colace) 100 mg BID PRN PO 10/30/15 05:30 11/27/15 23:31 (Tums Chew) 1,000 mg TID PRN CHEW 10/30/15 05:30 (Catapres) 0.1 mg Q6H PRN PO 10/30/15 05:30 11/07/15 06:04 (Mycostatin Powder) 1 applic DAILY TOPICAL 10/31/15 18:00 12/16/15 09:00 (Haydee-Colace) 2 tab BID PO 11/03/15 09:00 12/16/15 07:58 (Lactulose Liq) 30 ml TID PRN PO 11/03/15 05:45 (Lactulose Liq) 30 ml DAILY PO 11/04/15 09:00 12/16/15 07:59 (SEROquel) 50 mg HS PRN PO 11/14/15 18:45 11/23/15 22:37 (Haldol) 5 mg BID PO 11/19/15 21:00 Hold 12/08/15 09:00 (Haldol Inj) 2 mg Q8H PRN IM 11/19/15 10:45 11/22/15 15:53 (Diprosone 0.05% Ointment) 1 applic BID TOP 12/08/15 12:30 12/16/15 09:00 Carvedilol 25 mg 25 mg BID PO 12/12/15 21:00 12/16/15 07:58 (NS 1000 ml Inj) 1,000 ml @ 125 mls/hr Q8H IV 12/13/15 10:45 12/16/15 10:45 (Vasotec) 5 mg HS PO 12/14/15 21:00 12/15/15 23:23 (Miralax) 17 gm DAILY PRN PO 12/14/15 17:00 (Coumadin) 3 mg DAILY@16 PO 12/16/15 16:00 (Pill Splitter) 1 ea UNSCH PRN OTHER 12/15/15 09:15 Urinary Catheter: No Vascular Central Line Catheter: No A/P Problem List: (1) Cellulitis Status: Resolved (2) Ischemic cardiomyopathy Status: Chronic (3) Diabetes mellitus type 2 in obese Status: Chronic (4) S/P BKA (below knee amputation) unilateral Status: Chronic (5) Acute metabolic encephalopathy Status: Resolved (6) Bacteremia Status: Resolved (7) Chronic systolic (congestive) heart failure Status: Chronic (8) Venous stasis ulcer of left lower extremity Status: Chronic (9) Shortness of breath Status: Chronic (10) CVA (cerebral vascular accident) Status: Chronic (11) Seborrheic dermatitis Status: Resolved Assessment and Plan 60-year-old male with - Sepsis secondary to cellulitis and bacteremia. S/p IV abx. - Repeat blood cultures from 10/15 and 10/30 with no growth. - Resolved. - Cellulitis of the left lower extremity - with staph coag neg bacteremia in 4/4 tubes. Staph haemolyticus in aerobic tubes, with different sensitivities, contaminant likely. - Chronic venous stasis ulcers on the left lower ext. Clinically improved- cellulitis resolved. - wound cultures - MSSA, Serratia marcescens - Dr. Messina/ID ff; was on Keflex and Cipro for 10 days (vancomycin DCed) and completed 10/26. - Resolved. - Bilateral CVA:MRI showed acute cortical infarct. MRA of head and neck unremarkable. Neurology following. S/p ASA and Plavix. -Continue with Statin. -Continue Coumadin and monitor INR/PT keep INR between 2 and 3, pharmacy consulted for assistance with management. - Acute metabolic encephalopathy - baseline neuro status unknown but there is suspicion of chronic cognitive impairment/dementia. -CT head was unremarkable for any acute findings. -Mildly elevated NH3 level. Continue lactulose. Liver sonogram with gallstone and sludge -Consulted psychiatry who started Haldol and discontinued Geodon. Improving behavior discontinued restraints since 11/03/15 -Continue Seroquel 50 mg at bedtime prn added on 11/13. - Mild elevation of troponin without upward trend in the setting of CKD/CHF - No chest pain. -Likely due to CKD/CHF. 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 Chronic, stable. -Avoid nephrotoxins. -Monitor BMP - Hypernatremia - Na 147 upon arrival -Na 143 now, resolved. - Metabolic acidosis due to CKD ; resolved - Cardiomyopathy/chronic systolic CHF LVEF 35% on echo 03/2015. Denies shortness of breath. Compensated. Ct Coreg 25mg BID and enalapril. Lasix IV as needed. -Cardiology following to consider AICD when patient is able to consent. -Currently unable to consent. - Hypertension. Chronic, controlled. Continue enalapril and carvedilol - Diabetic mellitus - Glucose was well controlled. We discontinued all insulin. -accu-checks discontinued as patient's blood sugar well controlled and Hgb A1c 6.9. -continue diet control - PAD -stable. Continue above meds - Physical deconditioning: PT following. Out of bed to chair 3 times a day. Fall precautions - DVT prophylaxis with Coumadin Discharge Planning Patient is difficult discharge, heel caser assisting. Problem Qualifiers (1) Cellulitis: Rosaura Patel PA-C Dec 16, 2015 14:09 Micki Gamble MD Dec 17, 2015 16:12
[2015-12-16] MEDS: WARFARIN SOD 3 MG TAB PO SCH (15:14)
[2015-12-16 16:00] VITALS: BP 139/90; PULSE 73; RESP 20; TEMP 97.3; O2SAT 99
[2015-12-16 20:14] VITALS: BP 154/84; PULSE 78; RESP 20; TEMP 98.2; O2SAT 97
[2015-12-16] MEDS: ENALAPRIL MALEATE 5 MG TAB PO SCH (22:28)
[2015-12-17 00:26] VITALS: BP 167/98; PULSE 75; RESP 20; TEMP 97.6; O2SAT 97
[2015-12-17] MEDS: SODIUM CHLOR 0.9% 1000 ML INJ 1,000 ML IV SCH (02:45)
[2015-12-17 04:00] VITALS: BP 149/91; PULSE 72; RESP 18; TEMP 96.2; O2SAT 95
[2015-12-17] MEDS: ISOSORBIDE MONONITRATE 60 MG TAB PO SCH (06:17)
[2015-12-17 07:57] VITALS: BP 178/106; PULSE 76; RESP 15; TEMP 96.3; O2SAT 98
[2015-12-17 08:06] LABS: INTERNATIONAL NORMALIZED RATIO 2.3 RATIO; PROTHROMBIN TIME - PATIENT 25.1 SEC (9.8-11.4)
[2015-12-17] MEDS ORDERED: ENAL5 PO (08:09)
[2015-12-17] MEDS ORDERED: LACT20SO4 PO (08:09)
[2015-12-17] MEDS ORDERED: BETA.05%T TOP (08:09)
[2015-12-17] MEDS ORDERED: WARF3 PO (08:09)
[2015-12-17] MEDS ORDERED: NYSTT TOPICAL (08:09)
[2015-12-17] MEDS ORDERED: LASI20TA PO (08:11)
[2015-12-17] MEDS: BETAMETHASONE DIPROPIONATE 0.05% OINT 15 GM TUBE TOP SCH ×2 (09:00→20:28)
[2015-12-17] MEDS: NYSTATIN 100,000 U/GM PWD 15 GM BTL TOPICAL SCH (09:00)
[2015-12-17] MEDS: LACTULOSE SYRUP 20 GM/30 ML CUP PO SCH (09:00)
[2015-12-17] MEDS: DOCUSATE SODIUM 50 MG/SENNA 8.6 MG TAB PO SCH ×2 (09:00→20:26)
[2015-12-17] MEDS: SODIUM CHLORIDE 0.9% FLUSH 5 ML FLUSH FLUSH SCH ×2 (09:00→20:26)
[2015-12-17] MEDS: ATORVASTATIN 80 MG TAB PO SCH (09:00)
[2015-12-17] MEDS: CARVEDILOL 12.5 MG TAB PO SCH ×2 (09:00→20:26)
--- NOTE | 2015-12-17 11:14 | HHI.PR ---
Subjective Remarks Follow up for CVA with encephalopathy. Patient seen with Ezio RN and MEDICINE ASSISTANT at bedside. The patient has no medical complaints, denies fevers, headache, cough, congestion, chest pain, shortness of breath, or abdominal pains. He states he is eating well. Vital signs stable. Objective Vitals Vital Signs Date Time Temp Pulse Resp B/P Pulse Ox O2 Delivery O2 Flow Rate FiO2 12/17/15 07:57 96.3 76 15 178/106 98 12/17/15 04:00 96.2 72 18 149/91 95 12/17/15 00:26 97.6 75 20 167/98 97 12/16/15 20:14 98.2 78 20 154/84 97 12/16/15 16:00 97.3 73 20 139/90 99 12/16/15 12:00 98.2 75 20 140/68 96 I/O 12/16/15 12/16/15 12/16/15 12/17/15 12/17/15 12/17/15 07:00 15:00 23:00 07:00 15:00 23:00 Intake Total 600 ml 360 ml 120 ml 120 ml Balance 600 ml 360 ml 120 ml 120 ml Intake Oral 600 ml 360 ml 120 ml 120 ml # Voids 5 1 1 2 # Bowel Movements 0 0 0 Result Diagram: 12/13/15 0701 12/14/15 0655 Imaging Last Impressions Chest X-Ray 11/06/15 0000 Signed Impressions: Service Date/Time: Friday, November 06, 2015 11:35 - CONCLUSION: Compensated cardiomegaly, history of bypass otherwise negative. Superior most sternal wire is fractured. Didier Clay MD FACR Liver Ultrasound 10/30/15 0000 Signed Impressions: Service Date/Time: Friday, October 30, 2015 17:29 - CONCLUSION: 1. Cholelithiasis with probable gallbladder sludge and mild gallbladder distention. 2. Splenomegaly. Sameer Alexandra MD Modified Barium Swallow 10/27/15 0000 Signed Impressions: Service Date/Time: Tuesday, October 27, 2015 00:00 - CONCLUSION: Negative for penetration or aspiration. Please see speech pathology report. Tai Cohen MD Brain MRI 10/22/15 0000 Signed Impressions: Service Date/Time: September 14:38 - CONCLUSION: 1. No significant interval change is identified. There is stable restricted diffusion in the left basal ganglia representing an area of recent ischemia. There are no findings to indicate hemorrhagic transformation. The previously documented signal change within the right cerebral peduncle has nearly normalized. 2. Stable chronic white matter changes. Camacho Culp MD Neck Magnetic Resonance Angiography 10/21/15 0000 Signed Impressions: Service Date/Time: Wednesday, October 21, 2015 12:52 - CONCLUSION: . 1. Unremarkable MRA of the carotid arteries bilaterally. 2. Nonspecific possible collateral vessels in the soft tissues posterior to the right vertebral artery. The right verbal artery appears to be patent. If clinically indicated, a CTA could be performed for further evaluation. Abiodun Hall MD Head Magnetic Resonance Angiography 10/21/15 0000 Signed Impressions: Service Date/Time: Wednesday, October 21, 2015 12:52 - CONCLUSION: Unremarkable MRA of the brain. Abiodun Hall MD Head CT 10/15/152116 Signed Impressions: Service Date/Time: September 21:47 - CONCLUSION: 1. No evidence of hemorrhage or mass effect. 2. Lacunar infarct right thalamus, left basal ganglia and adjacent to the left lateral ventricular body. 3. No skull fracture seen. Daryl Varner MD Objective Remarks GENERAL: Well-nourished, well-developed elderly bearded male patient in [facility]. SKIN: Warm and dry. No rash. LLE with few superficial ulcerations, healing, with scabs. HEAD: Normocephalic. Atraumatic. NECK: Supple. Trachea midline. CARDIOVASCULAR: Regular rate and rhythm. S1, S2 noted. No murmur appreciated. RESPIRATORY: No accessory muscle use. Clear to auscultation. Breath sounds equal bilaterally. GASTROINTESTINAL: Abdomen soft, non-tender, nondistended. Normoactive bowel sounds x4. MUSCULOSKELETAL: Chronic Right BKA. Extremities without clubbing, cyanosis, or edema. NEUROLOGICAL: Awake and alert. No obvious cranial nerve deficits. Motor grossly within normal limits. 5/5 muscle strength in bilateral upper and lower extremities. Normal speech. PSYCHIATRIC: Appropriate mood and affect; insight and judgment poor. Procedures None Medications and IVs Current Medications Medications (Trade) Dose Ordered Sig/Estuardo Route Start Time Stop Time Status Last Admin (NS Flush) 2 ml UNSCH PRN FLUSH 10/15/15 23:30 (NS Flush) 2 ml BID FLUSH 10/16/15 09:00 12/16/15 22:29 (Zofran Inj) 4 mg Q6H PRN IVP 10/15/15 23:30 (Dulcolax Supp) 10 mg DAILY PRN WA 10/15/15 23:30 11/04/15 13:56 (Narcan Inj) 0.4 mg UNSCH PRN IV 10/15/15 23:30 (Lipitor) 80 mg DAILY PO 10/16/15 09:00 12/16/15 07:59 (Imdur) 60 mg DAILY@07 PO 10/16/15 07:00 12/17/15 06:17 Phenol 2 spray 2 spray Q2H PRN MT 10/29/15 12:00 (Coumadin Consult Pharmacy) 0 ml @ 0 mls/hr UNSCH XX 10/30/15 05:30 (Tylenol) 650 mg Q4H PRN PO 10/30/15 05:30 (Colace) 100 mg BID PRN PO 10/30/15 05:30 11/27/15 23:31 (Tums Chew) 1,000 mg TID PRN CHEW 10/30/15 05:30 (Catapres) 0.1 mg Q6H PRN PO 10/30/15 05:30 11/07/15 06:04 (Mycostatin Powder) 1 applic DAILY TOPICAL 10/31/15 18:00 12/16/15 09:00 (Haydee-Colace) 2 tab BID PO 11/03/15 09:00 12/16/15 22:28 (Lactulose Liq) 30 ml TID PRN PO 11/03/15 05:45 (Lactulose Liq) 30 ml DAILY PO 11/04/15 09:00 12/16/15 07:59 (SEROquel) 50 mg HS PRN PO 11/14/15 18:45 11/23/15 22:37 (Haldol) 5 mg BID PO 11/19/15 21:00 Hold 12/08/15 09:00 (Haldol Inj) 2 mg Q8H PRN IM 11/19/15 10:45 11/22/15 15:53 (Diprosone 0.05% Ointment) 1 applic BID TOP 12/08/15 12:30 12/16/15 22:30 Carvedilol 25 mg 25 mg BID PO 12/12/15 21:00 12/16/15 22:28 (NS 1000 ml Inj) 1,000 ml @ 125 mls/hr Q8H IV 12/13/15 10:45 12/16/15 10:45 (Vasotec) 5 mg HS PO 12/14/15 21:00 12/16/15 22:28 (Miralax) 17 gm DAILY PRN PO 12/14/15 17:00 (Coumadin) 3 mg DAILY@16 PO 12/16/15 16:00 12/16/15 15:14 (Pill Splitter) 1 ea UNSCH PRN OTHER 12/15/15 09:15 Urinary Catheter: No Vascular Central Line Catheter: No A/P Problem List: (1) Cellulitis Status: Resolved (2) Ischemic cardiomyopathy Status: Chronic (3) Diabetes mellitus type 2 in obese Status: Chronic (4) S/P BKA (below knee amputation) unilateral Status: Chronic (5) Acute metabolic encephalopathy Status: Resolved (6) Bacteremia Status: Resolved (7) Chronic systolic (congestive) heart failure Status: Chronic (8) Venous stasis ulcer of left lower extremity Status: Chronic (9) Shortness of breath Status: Chronic (10) CVA (cerebral vascular accident) Status: Chronic (11) Seborrheic dermatitis Status: Resolved Assessment and Plan 60-year-old male with - Sepsis secondary to cellulitis and bacteremia. S/p IV abx. - Repeat blood cultures from 10/15 and 10/30 with no growth. - Resolved. - Cellulitis of the left lower extremity - with staph coag neg bacteremia in 4/4 tubes. Staph haemolyticus in aerobic tubes, with different sensitivities, contaminant likely. - Chronic venous stasis ulcers on the left lower ext. Clinically improved- cellulitis resolved. - wound cultures - MSSA, Serratia marcescens - Dr. Messina/TISHA ff; was on Keflex and Cipro for 10 days (vancomycin DCed) and completed 10/26. - Resolved. - Bilateral CVA:MRI showed acute cortical infarct. MRA of head and neck unremarkable. Neurology following. S/p ASA and Plavix. -Continue with Statin. -Continue Coumadin and monitor INR/PT keep INR between 2 and 3, pharmacy consulted for assistance with management. - Acute metabolic encephalopathy - baseline neuro status unknown but there is suspicion of chronic cognitive impairment/dementia. -CT head was unremarkable for any acute findings. -Mildly elevated NH3 level. Continue lactulose. Liver sonogram with gallstone and sludge -Consulted psychiatry who started Haldol and discontinued Geodon. Improving behavior discontinued restraints since 11/03/15 -Continue Seroquel 50 mg at bedtime prn added on 11/13 however patient has not taken this since 11/22 -resolved. - Mild elevation of troponin without upward trend in the setting of CKD/CHF - No chest pain. -Likely due to CKD/CHF. 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 Chronic, stable. -Avoid nephrotoxins. -Monitor BMP - Hypernatremia - Na 147 upon arrival -Na 143 now, resolved. - Metabolic acidosis due to CKD ; resolved - Cardiomyopathy/chronic systolic CHF LVEF 35% on echo 03/2015. Denies shortness of breath. Compensated. Ct Coreg 25mg BID and enalapril. Lasix as needed. -Cardiology following to consider AICD when patient is able to consent. -Currently unable to consent. - Hypertension. Chronic, controlled. Continue enalapril and carvedilol - Diabetic mellitus - Glucose was well controlled. We discontinued all insulin. -accu-checks discontinued as patient's blood sugar well controlled and Hgb A1c 6.9. -continue diet control - PAD -stable. Continue above meds - Physical deconditioning: PT following. Out of bed to chair 3 times a day. Fall precautions - DVT prophylaxis with Coumadin Discharge Planning Discussed with case management, possible discharge to [facility] today. Discussed with Dr. Gamble, [id number] signed and prescriptions updated today. 1210hrs: Discussed again with case mgr Tia, plan for discharge to [facility] likely tomorrow. She requested I hold off on the discharge order until this is finalized. Another CM will follow up tomorrow morning. Problem Qualifiers (1) Cellulitis: Rosaura Patel PA-C Dec 17, 2015 11:14 Micki Gamble MD Dec 17, 2015 16:17
[2015-12-17 12:02] VITALS: BP 101/61; PULSE 82; RESP 17; TEMP 96.7; O2SAT 98
[2015-12-17] MEDS: WARFARIN SOD 3 MG TAB PO SCH (16:00)
[2015-12-17 16:46] VITALS: BP 122/66; PULSE 78; RESP 15; TEMP 96.5; O2SAT 94
[2015-12-17] MEDS: HALOPERIDOL LACTATE 5 MG/ML AMP IM PRN (17:56)
[2015-12-17 20:00] VITALS: BP 143/87; PULSE 79; RESP 19; TEMP 98; O2SAT 96
[2015-12-17] MEDS: ENALAPRIL MALEATE 5 MG TAB PO SCH (20:26)
[2015-12-18] VITALS (7 sets, daily range): BP systolic 115–164; BP diastolic 76–97; PULSE 72–80; RESP 18–22; TEMP 96.5–97.7; O2SAT 96–98
[2015-12-18] MEDS: ISOSORBIDE MONONITRATE 60 MG TAB PO SCH (06:19)
[2015-12-18 07:19] LABS: PROTHROMBIN TIME - PATIENT 21.4 SEC (9.8-11.4)
[2015-12-18] MEDS: LACTULOSE SYRUP 20 GM/30 ML CUP PO SCH (09:00)
[2015-12-18] MEDS: SODIUM CHLORIDE 0.9% FLUSH 5 ML FLUSH FLUSH SCH ×2 (09:00→21:00)
[2015-12-18] MEDS: CARVEDILOL 12.5 MG TAB PO SCH ×2 (09:46→22:22)
[2015-12-18] MEDS: ATORVASTATIN 80 MG TAB PO SCH (09:46)
[2015-12-18] MEDS: DOCUSATE SODIUM 50 MG/SENNA 8.6 MG TAB PO SCH ×2 (09:46→22:23)
[2015-12-18] MEDS: NYSTATIN 100,000 U/GM PWD 15 GM BTL TOPICAL SCH (09:57)
[2015-12-18] MEDS: BETAMETHASONE DIPROPIONATE 0.05% OINT 15 GM TUBE TOP SCH ×2 (09:57→21:00)
--- NOTE | 2015-12-18 12:25 | HHI.DS ---
Discharge Summary Admission Date Oct 15, 2015 at 23:15 Discharge Date: Dec 18, 2015 Admitting Diagnosis mild rabdo, elevated troponin, generalized weakness, fall (1) Cellulitis Diagnosis: Principal (2) Ischemic cardiomyopathy Diagnosis: Secondary (3) Diabetes mellitus type 2 in obese Diagnosis: Secondary (4) S/P BKA (below knee amputation) unilateral Diagnosis: Secondary (5) Acute metabolic encephalopathy Diagnosis: Principal (6) Bacteremia Diagnosis: Principal (7) Chronic systolic (congestive) heart failure Diagnosis: Secondary (8) Venous stasis ulcer of left lower extremity Diagnosis: Secondary (9) CVA (cerebral vascular accident) Diagnosis: Secondary (10) Seborrheic dermatitis Diagnosis: Secondary Procedures None Brief History - From Admission Mr. Amado is a 60 year old male with a history of ischemic cardiomyopathy (EF 35-40%), CABG, stent placement who was found on the floor by family members and subsequently brought to the ED for altered mental status. GCS 14 on arrival, improved to 15 with oxygen and IV fluids. Per EMS, patient's living condition at home is very poor. Patient is alert, oriented to self and place. He is unable to give any meaningful history. He denies any chest pain, SOB, fever, chills. On arrival, BP 162/108, RR 18, Pulse 96, T 97.8, 96-98% saturation on 2L of O2 via nasal cannula. CBC shows wbc 10, Hgb 10.3, Hct 32.4, Plt 168. BMP shows Na 147, K+ 3.8, BUN 22, Creatinine 1.78, Glucose 157, CPK 883, troponin 0.13. Head CT was unremarkable for acute findings. Cardiac history: - 12/18/2014 cardiac catheter status post stent placement 2.512 mm to proximal left circumflex - 04/30/2015 Echocardiogram EF 35-40% diffuse hypokinesis area CBC/BMP: 12/14/15 0655 Significant Findings Laboratory Tests Test 12/16/15 12/17/15 12/18/15 05:43 07:35 06:55 Prothrombin Time 23.8 SEC 25.1 SEC 21.4 SEC (9.8-11.4) (9.8-11.4) (9.8-11.4) PE at Discharge GENERAL: Well-nourished, well-developed elderly bearded male patient in [place]. SKIN: Warm and dry. No rash. LLE with few superficial ulcerations, healing, with scabs. HEAD: Normocephalic. Atraumatic. NECK: Supple. Trachea midline. CARDIOVASCULAR: Regular rate and rhythm. S1, S2 noted. No murmur appreciated. RESPIRATORY: No accessory muscle use. Clear to auscultation. Breath sounds equal bilaterally. GASTROINTESTINAL: Abdomen soft, non-tender, nondistended. Normoactive bowel sounds x4. MUSCULOSKELETAL: Chronic Right BKA. Extremities without clubbing, cyanosis, or edema. NEUROLOGICAL: Awake and alert. No obvious cranial nerve deficits. Motor grossly within normal limits. 5/5 muscle strength in bilateral upper and lower extremities. Normal speech. PSYCHIATRIC: Appropriate mood and affect; insight and judgment poor. Pt update on day of discharge The patient is doing well today. No acute complaints. Agreeable to go to SNF. Plan of care discussed with RN, case management, and Dr. Gamble. Hospital Course 60-year-old male with - Sepsis secondary to cellulitis and bacteremia. S/p IV abx. - Repeat blood cultures from 10/15 and 10/30 with no growth. - Resolved. - Cellulitis of the left lower extremity - with staph coag neg bacteremia in 4/4 tubes. Staph haemolyticus in aerobic tubes, with different sensitivities, contaminant likely. - Chronic venous stasis ulcers on the left lower ext. Clinically improved- cellulitis resolved. - wound cultures - MSSA, Serratia marcescens - Dr. Messina/ID ff; was on Keflex and Cipro for 10 days (vancomycin DCed) and completed 10/26. - Resolved. - Bilateral CVA:MRI showed acute cortical infarct. MRA of head and neck unremarkable. Neurology following. S/p ASA and Plavix. -Continue with Statin. -Continue Coumadin 3 mg daily and monitor INR/PT keep INR between 2 and 3, pharmacy consulted for assistance with management. - Acute metabolic encephalopathy - baseline neuro status unknown but there is suspicion of chronic cognitive impairment/dementia. -CT head was unremarkable for any acute findings. -Mildly elevated NH3 level. Continue lactulose. Liver sonogram with gallstone and sludge -Consulted psychiatry who started Haldol and discontinued Geodon. Improving behavior discontinued restraints since 11/03/15 -Continue Seroquel 50 mg at bedtime prn added on 11/13 however patient has not taken this since 11/22 -resolved. - Mild elevation of troponin without upward trend in the setting of CKD/CHF - No chest pain. -Likely due to CKD/CHF. 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 Chronic, stable. -Avoid nephrotoxins. -Monitor BMP - Hypernatremia - Na 147 upon arrival -Na 143 now, resolved. - Metabolic acidosis due to CKD ; resolved - Cardiomyopathy/chronic systolic CHF LVEF 35% on echo 03/2015. Denies shortness of breath. Compensated. Ct Coreg 25mg BID and enalapril. Lasix as needed. -Cardiology following to consider AICD when patient is able to consent. -Currently unable to consent. - Hypertension. Chronic, controlled. Continue enalapril and carvedilol - Diabetic mellitus - Glucose was well controlled. We discontinued all insulin. -accu-checks discontinued as patient's blood sugar well controlled and Hgb A1c 6.9. -continue diet control - PAD -stable. Continue above meds - Physical deconditioning: PT following. Out of bed to chair 3 times a day. Fall precautions Pt Condition on Discharge: Stable Discharge Disposition: Discharge to SNF Discharge Time: > 30 minutes Discharge Instructions DIET: Follow Instructions for: Diabetic Diet Speech Therapy-Diet Recommends: Mechanical Soft, Chopped Meat w/Gravy Additional Diet Instructions: 2 g of sodium daily Fluid Restrictions: 1.5L/day Activities you can perform: Regular-No Restrictions Activities to Avoid: Driving Follow up Referrals: PCP Follow-up - 2-3 Days New Orders: BASIC METABOLIC PROF - 2-3 Days PT/INR - 2-3 Days New Medications: Furosemide (Lasix) 20 Mg Tab 20 MG PO DAILY PRN SHORTNESS OF BREATH Days 30 Ref 0 TAB Betamethasone Dip (Diprosone 0.05% Ointment) 15 Applic/15 Gm Oint 1 APPLIC TOP BID Days 10 TUBE Carvedilol 12.5 mg (Coreg 12.5 mg) 12.5 Mg Tab 25 MG PO BID hypertension Days 31 TAB Enalapril Maleate (Vasotec 5 Mg Tab) 5 Mg Tab 5 MG PO HS Blood Pressure Management Days 30 TAB Lactulose (Lactulose) 30 Ml Syrp 30 ML PO DAILY Days 30 ML Nystatin (Nystop) 15 Applic/15 Gm Powd 1 APPLIC TOPICAL DAILY Days 20 CONTAINER Sennosides-Docusate Sodium (Haydee-Colace 8.6-50 mg) 1 Tab Tab 2 TAB PO BID Prevent Constipation Days 30 TAB Warfarin Sod (Coumadin) 3 Mg Tab 3 MG PO DAILY@16 Days 30 TAB Continued Medications: Atorvastatin (Lipitor 80 Mg Tab) 80 Mg Tab 80 MG PO DAILY hlp Days 31 TAB Isosorbide Mononitrate (Imdur 60 Mg) 60 Mg Tabcr 60 MG PO DAILY@07 heart Days 30 TAB.SR Lactobacillus Acidophilus (Lactinex) 1 Tab Tab 1 TAB PO BID probiotics Days 31 TAB (This prescription has been renewed) Discontinued Medications: Aspirin (Ecotrin) 81 Mg Tabec 81 MG PO DAILY Prevent Blood Clot Days 30 TAB.EC Carvedilol 6.25 mg (Coreg 6.25 mg) 6.25 Mg Tab 12.5 MG PO Q12HR heart Days 30 TAB Enalapril Maleate (Vasotec 5 Mg Tab) 5 Mg Tab 2.5 MG PO BID Prevent Heart Failure Days 30 TAB Furosemide (Lasix 20 Mg Tab) 20 Mg Tab 20 MG PO BID@09,18 chf Days 31 TAB Insulin Detemir (Levemir) Inj 10 UNITS SQ HS dm2 Days 31 INJECTION Magnesium Oxide (Mag-Ox 400 Mg Tab) 400 Mg Tab 400 MG PO Q12HR Electrolyte Replacement Days 30 TAB Potassium Chloride (Kcl 20 Meq Tab) 20 Meq Tabcr 20 MEQ PO BID Electrolyte Replacement Days 30 TAB.SR Lars Rich Dec 18, 2015 12:25 Micki Gamble MD Dec 18, 2015 17:36
[2015-12-18] MEDS: WARFARIN SOD 3 MG TAB PO SCH (16:38)
[2015-12-18] MEDS: ENALAPRIL MALEATE 5 MG TAB PO SCH (22:23)
[2015-12-19 04:07] VITALS: BP 170/85; PULSE 76; RESP 18; TEMP 97.2; O2SAT 98
[2015-12-19] MEDS: ISOSORBIDE MONONITRATE 60 MG TAB PO SCH (05:44)
[2015-12-19 07:41] LABS: PROTHROMBIN TIME - PATIENT 21.9 SEC (9.8-11.4)
[2015-12-19 08:00] VITALS: BP 128/80; PULSE 72; RESP 22; TEMP 98; O2SAT 96
[2015-12-19] MEDS: LACTULOSE SYRUP 20 GM/30 ML CUP PO SCH (09:09)
[2015-12-19] MEDS: BETAMETHASONE DIPROPIONATE 0.05% OINT 15 GM TUBE TOP SCH ×2 (09:10→21:40)
[2015-12-19] MEDS: NYSTATIN 100,000 U/GM PWD 15 GM BTL TOPICAL SCH (09:10)
[2015-12-19] MEDS: DOCUSATE SODIUM 50 MG/SENNA 8.6 MG TAB PO SCH ×2 (09:10→21:40)
[2015-12-19] MEDS: CARVEDILOL 12.5 MG TAB PO SCH ×2 (09:10→21:40)
[2015-12-19] MEDS: ATORVASTATIN 80 MG TAB PO SCH (09:10)
[2015-12-19] MEDS: SODIUM CHLORIDE 0.9% FLUSH 5 ML FLUSH FLUSH SCH ×2 (09:11→21:00)
[2015-12-19] MEDS: HALOPERIDOL LACTATE 5 MG/ML AMP IM PRN (11:45)
[2015-12-19 12:00] VITALS: BP 102/62; PULSE 79; RESP 22; TEMP 97.8; O2SAT 97
--- NOTE | 2015-12-19 13:02 | HHI.PR ---
Subjective Remarks Apparently the patient was not able to be sent to SNF yesterday secondary to a paperwork issue. Discussed with RN, and the patient issues. The patient states he is doing "lousy" currently because he needs to have a bowel movement and needs some help. Otherwise the patient has no acute complaints today. Objective Vitals Vital Signs Date Time Temp Pulse Resp B/P Pulse Ox O2 Delivery O2 Flow Rate FiO2 12/19/15 08:00 98.0 72 22 128/80 96 12/19/15 04:07 97.2 76 18 170/85 98 12/18/15 23:00 97.5 80 19 142/90 96 12/18/15 19:20 97.2 78 18 143/76 96 12/18/15 16:00 96.5 79 20 115/79 98 I/O 12/18/15 12/18/15 12/18/15 12/19/15 12/19/15 12/19/15 07:00 15:00 23:00 07:00 15:00 23:00 Intake Total 100 ml 480 ml Output Total 500 ml 250 ml Balance -400 ml 230 ml Intake Oral 100 ml 480 ml Output Urine Total 500 ml 250 ml # Voids 1 1 # Bowel Movements 1 Objective Remarks GENERAL: Well-developed well-nourished. In no acute distress. SKIN: Warm and dry. Scaly skin of the face. Left lower extremity with a few small shallow ulcerations. HEENT: Normocephalic. Pupils equal and round. Mucous membranes pink and moist. CARDIOVASCULAR: Regular rate and rhythm. No murmur appreciated. RESPIRATORY: No accessory muscle use. Clear to auscultation. Breath sounds equal bilaterally. GASTROINTESTINAL: Abdomen soft, non-tender, nondistended. Bowel sounds x4. MUSCULOSKELETAL: Right BKA. No clubbing or cyanosis. No edema. NEUROLOGICAL: Awake and alert. No focal neurological deficits. Moves upper and lower extremities spontaneously. Normal speech. PSYCHIATRIC: Pleasantly confused mood and affect; insight and judgment poor. Procedures None A/P Problem List: (1) Cellulitis Status: Resolved (2) Ischemic cardiomyopathy Status: Chronic (3) Diabetes mellitus type 2 in obese Status: Chronic (4) S/P BKA (below knee amputation) unilateral Status: Chronic (5) Acute metabolic encephalopathy Status: Resolved (6) Bacteremia Status: Resolved (7) Chronic systolic (congestive) heart failure Status: Chronic (8) Venous stasis ulcer of left lower extremity Status: Chronic (9) CVA (cerebral vascular accident) Status: Chronic (10) Seborrheic dermatitis Status: Resolved Assessment and Plan 60-year-old male with - Sepsis secondary to cellulitis and bacteremia. S/p IV abx. - Repeat blood cultures from 10/15 and 10/30 with no growth. - Resolved. - Cellulitis of the left lower extremity - with staph coag neg bacteremia in 4/4 tubes. Staph haemolyticus in aerobic tubes, with different sensitivities, contaminant likely. - Chronic venous stasis ulcers on the left lower ext. Clinically improved- cellulitis resolved. - wound cultures - MSSA, Serratia marcescens - Dr. Messina/TISHA ff; was on Keflex and Cipro for 10 days (vancomycin DCed) and completed 10/26. - Resolved. - Bilateral CVA:MRI showed acute cortical infarct. MRA of head and neck unremarkable. Neurology following. S/p ASA and Plavix. -Continue with Statin. -Continue Coumadin 3 mg daily and monitor INR/PT keep INR between 2 and 3, pharmacy consulted for assistance with management. - Acute metabolic encephalopathy - baseline neuro status unknown but there is suspicion of chronic cognitive impairment/dementia. -CT head was unremarkable for any acute findings. -Mildly elevated NH3 level. Continue lactulose. Liver sonogram with gallstone and sludge -Consulted psychiatry who started Haldol and discontinued Geodon. Improving behavior discontinued restraints since 11/03/15 -Continue Seroquel 50 mg at bedtime prn added on 11/13 however patient has not taken this since 11/22 -resolved. - Mild elevation of troponin without upward trend in the setting of CKD/CHF - No chest pain. -Likely due to CKD/CHF. 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 Chronic, stable. -Avoid nephrotoxins. -Monitor BMP - Hypernatremia - Na 147 upon arrival -Na 143 now, resolved. - Metabolic acidosis due to CKD ; resolved - Cardiomyopathy/chronic systolic CHF LVEF 35% on echo 03/2015. Denies shortness of breath. Compensated. Ct Coreg 25mg BID and enalapril. Lasix as needed. -Cardiology following to consider AICD when patient is able to consent. -Currently unable to consent. - Hypertension. Chronic, controlled. Continue enalapril and carvedilol - Diabetic mellitus - Glucose was well controlled. We discontinued all insulin. -accu-checks discontinued as patient's blood sugar well controlled and Hgb A1c 6.9. -continue diet control - PAD -stable. Continue above meds - Physical deconditioning: PT following. Out of bed to chair 3 times a day. Fall precautions - DVT prophylaxis with Coumadin Discharge Planning Discharge to SNF when arranged. Problem Qualifiers (1) Cellulitis: Lars Rich Dec 19, 2015 13:02 Micki Gamble MD Dec 19, 2015 13:14
[2015-12-19 16:00] VITALS: BP 156/92; PULSE 83; RESP 20; TEMP 98; O2SAT 99
[2015-12-19] MEDS: WARFARIN SOD 3 MG TAB PO SCH (16:42)
[2015-12-19 20:00] VITALS: BP 147/76; PULSE 83; RESP 18; TEMP 98.4; O2SAT 93
[2015-12-19] MEDS: ENALAPRIL MALEATE 5 MG TAB PO SCH (21:40)
[2015-12-20] VITALS: BP 144/82; PULSE 77; RESP 18; TEMP 97.3; O2SAT 95
[2015-12-20 04:00] VITALS: BP 129/77; PULSE 77; RESP 18; TEMP 97.7; O2SAT 94
[2015-12-20] MEDS: ISOSORBIDE MONONITRATE 60 MG TAB PO SCH (06:20)
[2015-12-20 07:32] LABS: INTERNATIONAL NORMALIZED RATIO 1.9 RATIO; PROTHROMBIN TIME - PATIENT 20.5 SEC (9.8-11.4)
[2015-12-20] MEDS: DOCUSATE SODIUM 50 MG/SENNA 8.6 MG TAB PO SCH ×2 (09:00→21:41)
[2015-12-20] MEDS: LACTULOSE SYRUP 20 GM/30 ML CUP PO SCH (09:00)
[2015-12-20] MEDS: SODIUM CHLORIDE 0.9% FLUSH 5 ML FLUSH FLUSH SCH ×2 (09:00→21:00)
[2015-12-20 09:05] VITALS: BP 123/86; PULSE 78; RESP 18; TEMP 96.6; O2SAT 96
[2015-12-20] MEDS: CARVEDILOL 12.5 MG TAB PO SCH ×2 (09:08→21:41)
[2015-12-20] MEDS: ATORVASTATIN 80 MG TAB PO SCH (09:08)
[2015-12-20] MEDS: NYSTATIN 100,000 U/GM PWD 15 GM BTL TOPICAL SCH (09:09)
[2015-12-20] MEDS: BETAMETHASONE DIPROPIONATE 0.05% OINT 15 GM TUBE TOP SCH ×2 (09:09→21:41)
--- NOTE | 2015-12-20 11:39 | HHI.PR ---
Subjective Remarks No acute events overnight. The patient just reports being sleepy this morning, states he was up for breakfast today, also had a BM this morning. Denies any medical complaints. Awaiting placement. Vital signs stable. Objective Vitals Vital Signs Date Time Temp Pulse Resp B/P Pulse Ox O2 Delivery O2 Flow Rate FiO2 12/20/15 09:05 96.6 78 18 123/86 96 12/20/15 04:00 97.7 77 18 129/77 94 12/20/15 00:00 97.3 77 18 144/82 95 12/19/15 20:00 98.4 83 18 147/76 93 12/19/15 16:00 98.0 83 20 156/92 99 12/19/15 12:00 97.8 79 22 102/62 97 I/O 12/19/15 12/19/15 12/19/15 12/20/15 12/20/15 12/20/15 07:00 15:00 23:00 07:00 15:00 23:00 Intake Total 320 ml 120 ml 60 ml Balance 320 ml 120 ml 60 ml Intake Oral 320 ml 120 ml 60 ml # Voids 3 0 1 # Bowel Movements 0 0 0 Imaging Last Impressions Chest X-Ray 11/06/15 0000 Signed Impressions: Service Date/Time: Friday, November 06, 2015 11:35 - CONCLUSION: Compensated cardiomegaly, history of bypass otherwise negative. Superior most sternal wire is fractured. Didier Clay MD FACR Liver Ultrasound 10/30/15 0000 Signed Impressions: Service Date/Time: Friday, October 30, 2015 17:29 - CONCLUSION: 1. Cholelithiasis with probable gallbladder sludge and mild gallbladder distention. 2. Splenomegaly. Sameer Alexandra MD Modified Barium Swallow 10/27/15 0000 Signed Impressions: Service Date/Time: Tuesday, October 27, 2015 00:00 - CONCLUSION: Negative for penetration or aspiration. Please see speech pathology report. Tai Cohen MD Brain MRI 10/22/15 0000 Signed Impressions: Service Date/Time: September 14:38 - CONCLUSION: 1. No significant interval change is identified. There is stable restricted diffusion in the left basal ganglia representing an area of recent ischemia. There are no findings to indicate hemorrhagic transformation. The previously documented signal change within the right cerebral peduncle has nearly normalized. 2. Stable chronic white matter changes. Camacho Culp MD Neck Magnetic Resonance Angiography 10/21/15 0000 Signed Impressions: Service Date/Time: Wednesday, October 21, 2015 12:52 - CONCLUSION: . 1. Unremarkable MRA of the carotid arteries bilaterally. 2. Nonspecific possible collateral vessels in the soft tissues posterior to the right vertebral artery. The right verbal artery appears to be patent. If clinically indicated, a CTA could be performed for further evaluation. Abiodun Hall MD Head Magnetic Resonance Angiography 10/21/15 Signed Impressions: Service Date/Time: Wednesday, October 21, 2015 12:52 - CONCLUSION: Unremarkable MRA of the brain. Abiodun Hall MD Head CT 10/15/152116 Signed Impressions: Service Date/Time: September 21:47 - CONCLUSION: 1. No evidence of hemorrhage or mass effect. 2. Lacunar infarct right thalamus, left basal ganglia and adjacent to the left lateral ventricular body. 3. No skull fracture seen. Daryl Varner MD Objective Remarks GENERAL: Well-nourished, well-developed elderly male patient in [facility]. SKIN: Warm and dry. No rash. HEAD: Normocephalic. Atraumatic. NECK: Supple. Trachea midline. CARDIOVASCULAR: Regular rate and rhythm. S1, S2 noted. No murmur appreciated. RESPIRATORY: No accessory muscle use. Clear to auscultation. Breath sounds equal bilaterally. GASTROINTESTINAL: Abdomen soft, non-tender, nondistended. Normoactive bowel sounds x4. MUSCULOSKELETAL: Chronic Right BKA. Extremities without clubbing, cyanosis, or edema. NEUROLOGICAL: Awake and alert. No obvious cranial nerve deficits. Motor grossly within normal limits. Moves all extremities spontaneously. Normal speech. PSYCHIATRIC: Appropriate mood and affect; insight and judgment poor. Procedures None Medications and IVs Current Medications Medications (Trade) Dose Ordered Sig/Estuardo Route Start Time Stop Time Status Last Admin (NS Flush) 2 ml UNSCH PRN FLUSH 10/15/15 23:30 (NS Flush) 2 ml BID FLUSH 10/16/15 09:00 12/19/15 09:11 (Zofran Inj) 4 mg Q6H PRN IVP 10/15/15 23:30 (Dulcolax Supp) 10 mg DAILY PRN [place] 10/15/15 23:30 11/04/15 13:56 (Narcan Inj) 0.4 mg UNSCH PRN IV 10/15/15 23:30 (Lipitor) 80 mg DAILY PO 10/16/15 09:00 12/20/15 09:08 (Imdur) 60 mg DAILY@07 PO 10/16/15 07:00 12/20/15 06:20 Phenol 2 spray 2 spray Q2H PRN MT 10/29/15 12:00 (Coumadin Consult Pharmacy) 0 ml @ 0 mls/hr UNSCH XX 10/30/15 05:30 (Tylenol) 650 mg Q4H PRN PO 10/30/15 05:30 (Colace) 100 mg BID PRN PO 10/30/15 05:30 11/27/15 23:31 (Tums Chew) 1,000 mg TID PRN CHEW 10/30/15 05:30 (Catapres) 0.1 mg Q6H PRN PO 10/30/15 05:30 11/07/15 06:04 (Mycostatin Powder) 1 applic DAILY TOPICAL 10/31/15 18:00 12/20/15 09:09 (Haydee-Colace) 2 tab BID PO 11/03/15 09:00 12/19/15 21:40 (Lactulose Liq) 30 ml TID PRN PO 11/03/15 05:45 (Lactulose Liq) 30 ml DAILY PO 11/04/15 09:00 12/19/15 09:09 (SEROquel) 50 mg HS PRN PO 11/14/15 18:45 11/23/15 22:37 (Haldol) 5 mg BID PO 11/19/15 21:00 Hold 12/08/15 09:00 (Haldol Inj) 2 mg Q8H PRN IM 11/19/15 10:45 12/19/15 11:45 (Diprosone 0.05% Ointment) 1 applic BID TOP 12/08/15 12:30 12/20/15 09:09 (Coreg) 25 mg BID PO 12/12/15 21:00 12/20/15 09:08 (Vasotec) 5 mg HS PO 12/14/15 21:00 12/19/15 21:40 (Miralax) 17 gm DAILY PRN PO 12/14/15 17:00 (Coumadin) 3 mg DAILY@16 PO 12/16/15 16:00 12/19/15 16:42 (Pill Splitter) 1 ea UNSCH PRN OTHER 12/15/15 09:15 Urinary Catheter: No Vascular Central Line Catheter: No A/P Problem List: (1) Cellulitis Status: Resolved (2) Ischemic cardiomyopathy Status: Chronic (3) Diabetes mellitus type 2 in obese Status: Chronic (4) S/P BKA (below knee amputation) unilateral Status: Chronic (5) Acute metabolic encephalopathy Status: Resolved (6) Bacteremia Status: Resolved (7) Chronic systolic (congestive) heart failure Status: Chronic (8) Venous stasis ulcer of left lower extremity Status: Chronic (9) CVA (cerebral vascular accident) Status: Chronic (10) Seborrheic dermatitis Status: Resolved Assessment and Plan 60-year-old male with - Sepsis secondary to cellulitis and bacteremia. S/p IV abx. - Repeat blood cultures from 10/15 and 10/30 with no growth. - Resolved. - Cellulitis of the left lower extremity - with staph coag neg bacteremia in 4/4 tubes. Staph haemolyticus in aerobic tubes, with different sensitivities, contaminant likely. - Chronic venous stasis ulcers on the left lower ext. Clinically improved- cellulitis resolved. - wound cultures - MSSA, Serratia marcescens - Dr. Messina/ID ff; was on Keflex and Cipro for 10 days (vancomycin DCed) and completed 10/26. - Resolved. - Bilateral CVA:MRI showed acute cortical infarct. MRA of head and neck unremarkable. Neurology following. S/p ASA and Plavix. -Continue with Statin. -Continue Coumadin and monitor INR/PT keep INR between 2 and 3, pharmacy consulted for assistance with management. - Acute metabolic encephalopathy - baseline neuro status unknown but there is suspicion of chronic cognitive impairment/dementia. -CT head was unremarkable for any acute findings. -Mildly elevated NH3 level. Continue lactulose. Liver sonogram with gallstone and sludge -Consulted psychiatry who started Haldol and discontinued Geodon. Improving behavior discontinued restraints since 11/03/15 -Continue Seroquel 50 mg at bedtime prn added on 11/13 however patient has not taken this since 11/22 -resolved. - Mild elevation of troponin without upward trend in the setting of CKD/CHF - No chest pain. -Likely due to CKD/CHF. 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 Chronic, stable. -Avoid nephrotoxins. -Monitor BMP - Hypernatremia - Na 147 upon arrival -Na 143 now, resolved. - Metabolic acidosis due to CKD ; resolved - Cardiomyopathy/chronic systolic CHF LVEF 35% on echo 03/2015. Denies shortness of breath. Compensated. Ct Coreg 25mg BID and enalapril. Lasix as needed. -Cardiology following to consider AICD when patient is able to consent. -Currently unable to consent. - Hypertension. Chronic, controlled. Continue enalapril and carvedilol - Diabetic mellitus - Glucose was well controlled. We discontinued all insulin. -accu-checks discontinued as patient's blood sugar well controlled and Hgb A1c 6.9. -continue diet control - PAD -stable. Continue above meds - Physical deconditioning: PT following. Out of bed to chair 3 times a day. Fall precautions - DVT prophylaxis with Coumadin Discharge Planning Case management assisting with discharge plans. Apparently the patient was denied at [facility]. Problem Qualifiers (1) Cellulitis: Rosaura Patel PA-C Dec 20, 2015 11:39 Micki Gamble MD Dec 20, 2015 13:31
[2015-12-20 14:34] VITALS: BP 138/85; PULSE 74; RESP 19; TEMP 96.8; O2SAT 95
[2015-12-20] MEDS: WARFARIN SOD 3 MG TAB PO SCH (16:00)
[2015-12-20 16:43] VITALS: BP 156/87; PULSE 80; RESP 18; TEMP 98.2; O2SAT 95
[2015-12-20 20:00] VITALS: BP 142/87; PULSE 78; RESP 18; TEMP 97.3; O2SAT 95
[2015-12-20] MEDS: ENALAPRIL MALEATE 5 MG TAB PO SCH (21:40)
[2015-12-21] VITALS: BP 150/86; PULSE 77; RESP 18; TEMP 97.9; O2SAT 97
[2015-12-21 04:00] VITALS: BP 152/84; PULSE 78; RESP 20; TEMP 97.4; O2SAT 95
[2015-12-21] MEDS: ISOSORBIDE MONONITRATE 60 MG TAB PO SCH (06:16)
[2015-12-21 08:00] VITALS: BP 161/68; PULSE 86; RESP 22; TEMP 98.1; O2SAT 96
[2015-12-21 08:21] LABS: INTERNATIONAL NORMALIZED RATIO 1.5 RATIO; PROTHROMBIN TIME - PATIENT 16.1 SEC (9.8-11.4)
[2015-12-21] MEDS: LACTULOSE SYRUP 20 GM/30 ML CUP PO SCH (08:38)
[2015-12-21] MEDS: CARVEDILOL 12.5 MG TAB PO SCH ×2 (08:38→20:06)
[2015-12-21] MEDS: ATORVASTATIN 80 MG TAB PO SCH (08:38)
[2015-12-21] MEDS: DOCUSATE SODIUM 50 MG/SENNA 8.6 MG TAB PO SCH ×2 (08:38→20:07)
[2015-12-21] MEDS: BETAMETHASONE DIPROPIONATE 0.05% OINT 15 GM TUBE TOP SCH ×2 (08:40→20:07)
[2015-12-21] MEDS: SODIUM CHLORIDE 0.9% FLUSH 5 ML FLUSH FLUSH SCH ×2 (08:40→20:08)
[2015-12-21] MEDS: NYSTATIN 100,000 U/GM PWD 15 GM BTL TOPICAL SCH (08:40)
[2015-12-21 12:00] VITALS: BP 94/64; PULSE 75; RESP 17; TEMP 95.6; O2SAT 98
--- NOTE | 2015-12-21 13:08 | HHI.PR ---
Subjective Remarks The patient is seen sitting upright in chair at nurses station eating lunch, [employer] assisting. No acute events overnight. He has no specific medical complaints. Denies headache, chest pain, shortness of breath, abdominal or urinary complaints. Objective Vitals Vital Signs Date Time Temp Pulse Resp B/P Pulse Ox O2 Delivery O2 Flow Rate FiO2 12/21/15 12:00 95.6 75 17 94/64 98 12/21/15 08:00 98.1 86 22 161/68 96 12/21/15 04:00 97.4 78 20 152/84 95 12/21/15 00:00 97.9 77 18 150/86 97 12/20/15 20:00 97.3 78 18 142/87 95 12/20/15 16:43 98.2 80 18 156/87 95 12/20/15 14:34 96.8 74 19 138/85 95 I/O 12/20/15 12/20/15 12/20/15 12/21/15 12/21/15 12/21/15 07:00 15:00 23:00 07:00 15:00 23:00 Intake Total 60 ml 240 ml 240 ml 60 ml Balance 60 ml 240 ml 240 ml 60 ml Intake Oral 60 ml 240 ml 240 ml 60 ml # Voids 1 2 2 2 # Bowel Movements 0 1 0 0 Imaging Last Impressions Chest X-Ray 11/06/15 0000 Signed Impressions: Service Date/Time: Friday, November 06, 2015 11:35 - CONCLUSION: Compensated cardiomegaly, history of bypass otherwise negative. Superior most sternal wire is fractured. Didier Clay MD FACR Liver Ultrasound 10/30/15 0000 Signed Impressions: Service Date/Time: Friday, October 30, 2015 17:29 - CONCLUSION: 1. Cholelithiasis with probable gallbladder sludge and mild gallbladder distention. 2. Splenomegaly. Sameer Alexandra MD Modified Barium Swallow 10/27/15 0000 Signed Impressions: Service Date/Time: Tuesday, October 27, 2015 00:00 - CONCLUSION: Negative for penetration or aspiration. Please see speech pathology report. Tai Cohen MD Brain MRI 10/22/15 0000 Signed Impressions: Service Date/Time: September 14:38 - CONCLUSION: 1. No significant interval change is identified. There is stable restricted diffusion in the left basal ganglia representing an area of recent ischemia. There are no findings to indicate hemorrhagic transformation. The previously documented signal change within the right cerebral peduncle has nearly normalized. 2. Stable chronic white matter changes. Camacho Culp MD Neck Magnetic Resonance Angiography 10/21/15 0000 Signed Impressions: Service Date/Time: Wednesday, October 21, 2015 12:52 - CONCLUSION: . 1. Unremarkable MRA of the carotid arteries bilaterally. 2. Nonspecific possible collateral vessels in the soft tissues posterior to the right vertebral artery. The right verbal artery appears to be patent. If clinically indicated, a CTA could be performed for further evaluation. Abiodun Hall MD Head Magnetic Resonance Angiography 10/21/15 Signed Impressions: Service Date/Time: Wednesday, October 21, 2015 12:52 - CONCLUSION: Unremarkable MRA of the brain. Abiodun Hall MD Head CT 10/15/152116 Signed Impressions: Service Date/Time: September 21:47 - CONCLUSION: 1. No evidence of hemorrhage or mass effect. 2. Lacunar infarct right thalamus, left basal ganglia and adjacent to the left lateral ventricular body. 3. No skull fracture seen. Daryl Varner MD Objective Remarks GENERAL: Well-nourished, well-developed elderly male patient in [facility]. SKIN: Warm and dry. No rash. HEAD: Normocephalic. Atraumatic. CARDIOVASCULAR: Regular rate and rhythm. S1, S2 noted. No murmur appreciated. RESPIRATORY: No accessory muscle use. Clear to auscultation. Breath sounds equal bilaterally. GASTROINTESTINAL: Abdomen soft, non-tender, nondistended. Normoactive bowel sounds x4. MUSCULOSKELETAL: Chronic Right BKA. Extremities without clubbing, cyanosis, or edema. NEUROLOGICAL: Awake and alert. No obvious cranial nerve deficits. Motor grossly within normal limits. Moves all extremities spontaneously. Normal speech. PSYCHIATRIC: Appropriate mood and affect; insight and judgment poor. Procedures None Medications and IVs Current Medications Medications (Trade) Dose Ordered Sig/Estuardo Route Start Time Stop Time Status Last Admin (NS Flush) 2 ml UNSCH PRN FLUSH 10/15/15 23:30 (NS Flush) 2 ml BID FLUSH 10/16/15 09:00 12/21/15 08:40 (Zofran Inj) 4 mg Q6H PRN IVP 10/15/15 23:30 (Dulcolax Supp) 10 mg DAILY PRN NC 10/15/15 23:30 11/04/15 13:56 (Narcan Inj) 0.4 mg UNSCH PRN IV 10/15/15 23:30 (Lipitor) 80 mg DAILY PO 10/16/15 09:00 12/21/15 08:38 (Imdur) 60 mg DAILY@07 PO 10/16/15 07:00 12/21/15 06:16 Phenol 2 spray 2 spray Q2H PRN MT 10/29/15 12:00 (Coumadin Consult Pharmacy) 0 ml @ 0 mls/hr UNSCH XX 10/30/15 05:30 (Tylenol) 650 mg Q4H PRN PO 10/30/15 05:30 (Colace) 100 mg BID PRN PO 10/30/15 05:30 11/27/15 23:31 (Tums Chew) 1,000 mg TID PRN CHEW 10/30/15 05:30 (Catapres) 0.1 mg Q6H PRN PO 10/30/15 05:30 11/07/15 06:04 (Mycostatin Powder) 1 applic DAILY TOPICAL 10/31/15 18:00 12/21/15 08:40 (Haydee-Colace) 2 tab BID PO 11/03/15 09:00 12/21/15 08:38 (Lactulose Liq) 30 ml TID PRN PO 11/03/15 05:45 (Lactulose Liq) 30 ml DAILY PO 11/04/15 09:00 12/21/15 08:38 (SEROquel) 50 mg HS PRN PO 11/14/15 18:45 11/23/15 22:37 (Haldol) 5 mg BID PO 11/19/15 21:00 Hold 12/08/15 09:00 (Haldol Inj) 2 mg Q8H PRN IM 11/19/15 10:45 12/19/15 11:45 (Diprosone 0.05% Ointment) 1 applic BID TOP 12/08/15 12:30 12/21/15 08:40 (Coreg) 25 mg BID PO 12/12/15 21:00 12/21/15 08:38 (Vasotec) 5 mg HS PO 12/14/15 21:00 12/20/15 21:40 (Miralax) 17 gm DAILY PRN PO 12/14/15 17:00 (Coumadin) 3 mg DAILY@16 PO 12/16/15 16:00 12/19/15 16:42 (Pill Splitter) 1 ea UNSCH PRN OTHER 12/15/15 09:15 Urinary Catheter: No A/P Problem List: (1) Cellulitis Status: Resolved (2) Ischemic cardiomyopathy Status: Chronic (3) Diabetes mellitus type 2 in obese Status: Chronic (4) S/P BKA (below knee amputation) unilateral Status: Chronic (5) Acute metabolic encephalopathy Status: Resolved (6) Bacteremia Status: Resolved (7) Chronic systolic (congestive) heart failure Status: Chronic (8) Venous stasis ulcer of left lower extremity Status: Chronic (9) CVA (cerebral vascular accident) Status: Chronic (10) Seborrheic dermatitis Status: Resolved Assessment and Plan 60-year-old male with - Sepsis secondary to cellulitis and bacteremia. S/p IV abx. - Repeat blood cultures from 10/15 and 10/30 with no growth. - Resolved. - Cellulitis of the left lower extremity - with staph coag neg bacteremia in 4/4 tubes. Staph haemolyticus in aerobic tubes, with different sensitivities, contaminant likely. - Chronic venous stasis ulcers on the left lower ext. Clinically improved- cellulitis resolved. - wound cultures - MSSA, Serratia marcescens - Dr. Messina/TISHA ff; was on Keflex and Cipro for 10 days (vancomycin DCed) and completed 10/26. - Resolved. - Bilateral CVA:MRI showed acute cortical infarct. MRA of head and neck unremarkable. Neurology following. S/p ASA and Plavix. -Continue with Statin. -Continue Coumadin and monitor INR/PT keep INR between 2 and 3, pharmacy consulted for assistance with management. - Acute metabolic encephalopathy - baseline neuro status unknown but there is suspicion of chronic cognitive impairment/dementia. -CT head was unremarkable for any acute findings. -Mildly elevated NH3 level. Continue lactulose. Liver sonogram with gallstone and sludge -Consulted psychiatry who started Haldol and discontinued Geodon. Improving behavior discontinued restraints since 11/03/15 -Continue Seroquel 50 mg at bedtime prn added on 11/13 however patient has not taken this since 11/22 -resolved. - Mild elevation of troponin without upward trend in the setting of CKD/CHF - No chest pain. -Likely due to CKD/CHF. 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 Chronic, stable. -Avoid nephrotoxins. -Monitor BMP - Hypernatremia - Na 147 upon arrival -Na 143 now, resolved. - Metabolic acidosis due to CKD ; resolved - Cardiomyopathy/chronic systolic CHF LVEF 35% on echo 03/2015. Denies shortness of breath. Compensated. Ct Coreg 25mg BID and enalapril. Lasix as needed. -Cardiology following to consider AICD when patient is able to consent. -Currently unable to consent. - Hypertension. Chronic, controlled. Continue enalapril and carvedilol - Diabetic mellitus - Glucose was well controlled. We discontinued all insulin. -accu-checks discontinued as patient's blood sugar well controlled and Hgb A1c 6.9. -continue diet control - PAD -stable. Continue above meds - Physical deconditioning: PT following. Out of bed to chair 3 times a day. Fall precautions - DVT prophylaxis with Coumadin Discharge Planning Case management assisting with discharge plans. Apparently the patient was denied at [facility]. Problem Qualifiers (1) Cellulitis: Rosaura Patel PA-C Dec 21, 2015 13:08 Micki Gamble MD Dec 21, 2015 14:06
[2015-12-21 16:00] VITALS: BP 123/80; PULSE 75; RESP 16; TEMP 97.4; O2SAT 94
[2015-12-21] MEDS: WARFARIN SOD 3 MG TAB PO SCH (16:00)
[2015-12-21 20:00] VITALS: BP 150/95; PULSE 75; RESP 15; TEMP 97.7; O2SAT 94
[2015-12-21] MEDS: ENALAPRIL MALEATE 5 MG TAB PO SCH (20:06)
[2015-12-22 01:00] VITALS: BP 152/86; PULSE 76; RESP 15; TEMP 97; O2SAT 91
[2015-12-22] MEDS: ISOSORBIDE MONONITRATE 60 MG TAB PO SCH (05:29)
[2015-12-22 08:00] VITALS: BP 107/69; PULSE 85; RESP 18; TEMP 97; O2SAT 96
[2015-12-22] MEDS: SODIUM CHLORIDE 0.9% FLUSH 5 ML FLUSH FLUSH SCH ×2 (08:29→21:00)
[2015-12-22] MEDS: BETAMETHASONE DIPROPIONATE 0.05% OINT 15 GM TUBE TOP SCH ×2 (08:29→20:16)
[2015-12-22] MEDS: ATORVASTATIN 80 MG TAB PO SCH (08:29)
[2015-12-22] MEDS: CARVEDILOL 12.5 MG TAB PO SCH ×2 (08:29→20:14)
[2015-12-22] MEDS: DOCUSATE SODIUM 50 MG/SENNA 8.6 MG TAB PO SCH ×2 (08:29→20:15)
[2015-12-22] MEDS: LACTULOSE SYRUP 20 GM/30 ML CUP PO SCH (08:29)
[2015-12-22] MEDS: NYSTATIN 100,000 U/GM PWD 15 GM BTL TOPICAL SCH (08:30)
[2015-12-22 09:19] LABS: INTERNATIONAL NORMALIZED RATIO 1.4 RATIO; PROTHROMBIN TIME - PATIENT 14.9 SEC (9.8-11.4)
[2015-12-22 12:00] VITALS: BP 101/62; PULSE 90; RESP 18; TEMP 95.8; O2SAT 98
--- NOTE | 2015-12-22 13:18 | HHI.PR ---
Subjective Remarks The patient is seen sitting upright in chair at the nurses station. Ate lunch, tells me he ate potatoes but cannot recall the rest of his meal. He has been playing cards at the nurses station. RN reports he is much more alert and interactive than in previous weeks. Vitals signs stable. No acute events overnight. Objective Vitals Vital Signs Date Time Temp Pulse Resp B/P Pulse Ox O2 Delivery O2 Flow Rate FiO2 12/22/15 08:00 97.0 85 18 107/69 96 12/22/15 01:00 97.0 76 15 152/86 91 12/21/15 20:00 97.7 75 15 150/95 94 12/21/15 16:00 97.4 75 16 123/80 94 I/O 12/21/15 12/21/15 12/21/15 12/22/15 12/22/15 12/22/15 06:59 14:59 22:59 06:59 14:59 22:59 Intake Total 60 ml 240 ml Balance 60 ml 240 ml Intake Oral 60 ml 240 ml # Voids 2 3 # Bowel Movements 0 0 Imaging Last Impressions Chest X-Ray 11/06/15 0000 Signed Impressions: Service Date/Time: Friday, November 06, 2015 11:35 - CONCLUSION: Compensated cardiomegaly, history of bypass otherwise negative. Superior most sternal wire is fractured. Didier Clay MD FACR Liver Ultrasound 10/30/15 0000 Signed Impressions: Service Date/Time: Friday, October 30, 2015 17:29 - CONCLUSION: 1. Cholelithiasis with probable gallbladder sludge and mild gallbladder distention. 2. Splenomegaly. Sameer Alexandra MD Modified Barium Swallow 10/27/15 0000 Signed Impressions: Service Date/Time: Tuesday, October 27, 2015 00:00 - CONCLUSION: Negative for penetration or aspiration. Please see speech pathology report. Tai Cohen MD Brain MRI 10/22/15 0000 Signed Impressions: Service Date/Time: September 14:38 - CONCLUSION: 1. No significant interval change is identified. There is stable restricted diffusion in the left basal ganglia representing an area of recent ischemia. There are no findings to indicate hemorrhagic transformation. The previously documented signal change within the right cerebral peduncle has nearly normalized. 2. Stable chronic white matter changes. Camacho Culp MD Neck Magnetic Resonance Angiography 10/21/15 0000 Signed Impressions: Service Date/Time: Wednesday, October 21, 2015 12:52 - CONCLUSION: . 1. Unremarkable MRA of the carotid arteries bilaterally. 2. Nonspecific possible collateral vessels in the soft tissues posterior to the right vertebral artery. The right verbal artery appears to be patent. If clinically indicated, a CTA could be performed for further evaluation. Abiodun Hall MD Head Magnetic Resonance Angiography 10/21/15 0000 Signed Impressions: Service Date/Time: Wednesday, October 21, 2015 12:52 - CONCLUSION: Unremarkable MRA of the brain. Abiodun Hall MD Head CT 10/15/152116 Signed Impressions: Service Date/Time: September 21:47 - CONCLUSION: 1. No evidence of hemorrhage or mass effect. 2. Lacunar infarct right thalamus, left basal ganglia and adjacent to the left lateral ventricular body. 3. No skull fracture seen. Daryl Varner MD Objective Remarks GENERAL: Well-nourished, well-developed elderly male patient in [facility]. SKIN: Warm and dry. No rash. HEAD: Normocephalic. Atraumatic. CARDIOVASCULAR: Regular rate and rhythm. S1, S2 noted. No murmur appreciated. RESPIRATORY: No accessory muscle use. Clear to auscultation. Breath sounds equal bilaterally. GASTROINTESTINAL: Abdomen soft, non-tender, nondistended. Normoactive bowel sounds x4. MUSCULOSKELETAL: Chronic Right BKA. Extremities without clubbing, cyanosis, or edema. NEUROLOGICAL: Awake and alert. No obvious cranial nerve deficits. Motor grossly within normal limits. Moves all extremities spontaneously. Normal speech. PSYCHIATRIC: Appropriate mood and affect; insight and judgment limited. Procedures None Medications and IVs Current Medications Medications (Trade) Dose Ordered Sig/Estuardo Route Start Time Stop Time Status Last Admin (NS Flush) 2 ml UNSCH PRN FLUSH 10/15/15 23:30 (NS Flush) 2 ml BID FLUSH 10/16/15 09:00 12/21/15 08:40 (Zofran Inj) 4 mg Q6H PRN IVP 10/15/15 23:30 (Dulcolax Supp) 10 mg DAILY PRN DE 10/15/15 23:30 11/04/15 13:56 (Narcan Inj) 0.4 mg UNSCH PRN IV 10/15/15 23:30 (Lipitor) 80 mg DAILY PO 10/16/15 09:00 12/22/15 08:29 (Imdur) 60 mg DAILY@07 PO 10/16/15 07:00 12/22/15 05:29 Phenol 2 spray 2 spray Q2H PRN MT 10/29/15 12:00 (Coumadin Consult Pharmacy) 0 ml @ 0 mls/hr UNSCH XX 10/30/15 05:30 (Tylenol) 650 mg Q4H PRN PO 10/30/15 05:30 (Colace) 100 mg BID PRN PO 10/30/15 05:30 11/27/15 23:31 (Tums Chew) 1,000 mg TID PRN CHEW 10/30/15 05:30 (Catapres) 0.1 mg Q6H PRN PO 10/30/15 05:30 11/07/15 06:04 (Mycostatin Powder) 1 applic DAILY TOPICAL 10/31/15 18:00 12/22/15 08:30 (Haydee-Colace) 2 tab BID PO 11/03/15 09:00 12/22/15 08:29 (Lactulose Liq) 30 ml TID PRN PO 11/03/15 05:45 (Lactulose Liq) 30 ml DAILY PO 11/04/15 09:00 12/22/15 08:29 (SEROquel) 50 mg HS PRN PO 11/14/15 18:45 11/23/15 22:37 (Haldol) 5 mg BID PO 11/19/15 21:00 Hold 12/08/15 09:00 (Haldol Inj) 2 mg Q8H PRN IM 11/19/15 10:45 12/19/15 11:45 (Diprosone 0.05% Ointment) 1 applic BID TOP 12/08/15 12:30 12/22/15 08:29 (Coreg) 25 mg BID PO 12/12/15 21:00 12/21/15 20:06 (Vasotec) 5 mg HS PO 12/14/15 21:00 12/21/15 20:06 (Miralax) 17 gm DAILY PRN PO 12/14/15 17:00 (Coumadin) 3 mg DAILY@16 PO 12/16/15 16:00 12/21/15 16:00 (Pill Splitter) 1 ea UNSCH PRN OTHER 12/15/15 09:15 Urinary Catheter: No Vascular Central Line Catheter: No A/P Problem List: (1) Cellulitis Status: Resolved (2) Ischemic cardiomyopathy Status: Chronic (3) Diabetes mellitus type 2 in obese Status: Chronic (4) S/P BKA (below knee amputation) unilateral Status: Chronic (5) Acute metabolic encephalopathy Status: Resolved (6) Bacteremia Status: Resolved (7) Chronic systolic (congestive) heart failure Status: Chronic (8) Venous stasis ulcer of left lower extremity Status: Chronic (9) CVA (cerebral vascular accident) Status: Chronic (10) Seborrheic dermatitis Status: Resolved Assessment and Plan 60-year-old male with - Sepsis secondary to cellulitis and bacteremia. S/p IV abx. - Repeat blood cultures from 10/15 and 10/30 with no growth. - Resolved. - Cellulitis of the left lower extremity - with staph coag neg bacteremia in 4/4 tubes. Staph haemolyticus in aerobic tubes, with different sensitivities, contaminant likely. - Chronic venous stasis ulcers on the left lower ext. Clinically improved- cellulitis resolved. - wound cultures - MSSA, Serratia marcescens - Dr. Messina/TISHA ff; was on Keflex and Cipro for 10 days (vancomycin DCed) and completed 10/26. - Resolved. - Bilateral CVA:MRI showed acute cortical infarct. MRA of head and neck unremarkable. Neurology following. S/p ASA and Plavix. -Continue with Statin. -Continue Coumadin and monitor INR/PT keep INR between 2 and 3, pharmacy consulted for assistance with management. - Acute metabolic encephalopathy - baseline neuro status unknown but there is suspicion of chronic cognitive impairment/dementia. -CT head was unremarkable for any acute findings. -Mildly elevated NH3 level. Continue lactulose. Liver sonogram with gallstone and sludge -Consulted psychiatry who started Haldol and discontinued Geodon. Improving behavior discontinued restraints since 11/03/15 -Continue Seroquel 50 mg at bedtime prn added on 11/13 however patient has not taken this since 11/22 -resolved. - Mild elevation of troponin without upward trend in the setting of CKD/CHF - No chest pain. -Likely due to CKD/CHF. 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 Chronic, stable. -Avoid nephrotoxins. -Monitor BMP - Hypernatremia - Na 147 upon arrival -Na 143 now, resolved. - Metabolic acidosis due to CKD ; resolved - Cardiomyopathy/chronic systolic CHF LVEF 35% on echo 03/2015. Denies shortness of breath. Compensated. Ct Coreg 25mg BID and enalapril. Lasix as needed. -Cardiology following to consider AICD when patient is able to consent. -Currently unable to consent. - Hypertension. Chronic, controlled. Continue enalapril and carvedilol - Diabetic mellitus - Glucose was well controlled. We discontinued all insulin. -accu-checks discontinued as patient's blood sugar well controlled and Hgb A1c 6.9. -continue diet control - PAD -stable. Continue above meds - Physical deconditioning: PT following. Out of bed to chair 3 times a day. Fall precautions. Needs rehab placement. - DVT prophylaxis with Coumadin Discharge Planning Case management assisting with discharge plans, needs placement. Problem Qualifiers (1) Cellulitis: Rosaura Patel PA-C Dec 22, 2015 13:18
[2015-12-22] MEDS: HALOPERIDOL LACTATE 5 MG/ML AMP IM PRN (14:43)
[2015-12-22 16:00] VITALS: BP 106/69; PULSE 89; RESP 18; TEMP 96.5; O2SAT 98
[2015-12-22] MEDS: WARFARIN SOD 3 MG TAB PO SCH (16:07)
[2015-12-22] MEDS: ENALAPRIL MALEATE 5 MG TAB PO SCH (20:15)
[2015-12-22 20:33] VITALS: BP 149/85; PULSE 76; RESP 19; TEMP 98.7; O2SAT 100
[2015-12-23 00:02] VITALS: BP 165/90; PULSE 75; RESP 19; TEMP 98.9; O2SAT 96
[2015-12-23 04:25] VITALS: BP 158/54; PULSE 80; RESP 19; TEMP 96.5; O2SAT 99
[2015-12-23] MEDS: ISOSORBIDE MONONITRATE 60 MG TAB PO SCH (05:18)
[2015-12-23 06:24] LABS: INTERNATIONAL NORMALIZED RATIO 1.3 RATIO; PROTHROMBIN TIME - PATIENT 13.9 SEC (9.8-11.4)
[2015-12-23 08:00] VITALS: BP 109/62; PULSE 68; RESP 20; TEMP 97.1; O2SAT 94
[2015-12-23] MEDS: SODIUM CHLORIDE 0.9% FLUSH 5 ML FLUSH FLUSH SCH ×2 (09:00→21:00)
[2015-12-23] MEDS: BETAMETHASONE DIPROPIONATE 0.05% OINT 15 GM TUBE TOP SCH ×2 (09:00→21:32)
[2015-12-23] MEDS: NYSTATIN 100,000 U/GM PWD 15 GM BTL TOPICAL SCH (09:00)
[2015-12-23] MEDS: LACTULOSE SYRUP 20 GM/30 ML CUP PO SCH (09:59)
[2015-12-23] MEDS: DOCUSATE SODIUM 50 MG/SENNA 8.6 MG TAB PO SCH ×2 (09:59→21:27)
[2015-12-23] MEDS: ATORVASTATIN 80 MG TAB PO SCH (09:59)
[2015-12-23] MEDS: CARVEDILOL 12.5 MG TAB PO SCH ×2 (09:59→21:26)
[2015-12-23 12:00] VITALS: BP 105/70; PULSE 68; RESP 18; TEMP 97.8; O2SAT 98
--- NOTE | 2015-12-23 14:04 | HHI.PR ---
Subjective Remarks F/u for encephalopathy. The pt states he is doing "lousy" today because we will not let him go home to pay his rent. Once redirected, he is agreeable for SNF placement. He denies any acute medical c/o today. D/w RN, no issues. D/w case management, awaiting SNF approval and pt's sister to sign the paperwork for SNF. Objective Vitals Vital Signs Date Time Temp Pulse Resp B/P Pulse Ox O2 Delivery O2 Flow Rate FiO2 12/23/15 12:00 97.8 68 18 105/70 98 12/23/15 08:00 97.1 68 20 109/62 94 12/23/15 04:25 96.5 80 19 158/54 99 12/23/15 00:02 98.9 75 19 165/90 96 12/22/15 20:33 98.7 76 19 149/85 100 12/22/15 16:00 96.5 89 18 106/69 98 I/O 12/22/15 12/22/15 12/22/15 12/23/15 12/23/15 12/23/15 07:00 15:00 23:00 07:00 15:00 23:00 Intake Total 240 ml 380 ml 330 ml Balance 240 ml 380 ml 330 ml Intake Oral 240 ml 380 ml 330 ml # Voids 2 2 2 # Bowel Movements 0 0 Objective Remarks GENERAL: Well-developed well-nourished. In no acute distress. SKIN: Warm and dry. Scaly skin of the face. Left lower extremity with a few small shallow ulcerations. HEENT: Normocephalic. Pupils equal and round. Mucous membranes pink and moist. CARDIOVASCULAR: Regular rate and rhythm. No murmur appreciated. RESPIRATORY: No accessory muscle use. Clear to auscultation. Breath sounds equal bilaterally. GASTROINTESTINAL: Abdomen soft, non-tender, nondistended. Bowel sounds x4. MUSCULOSKELETAL: Right BKA. No clubbing or cyanosis. No edema. NEUROLOGICAL: Awake and alert. No focal neurological deficits. Moves upper and lower extremities spontaneously. Normal speech. PSYCHIATRIC: Pleasantly confused mood and affect; insight and judgment poor. Procedures None A/P Problem List: (1) Cellulitis Status: Resolved (2) Ischemic cardiomyopathy Status: Chronic (3) Diabetes mellitus type 2 in obese Status: Chronic (4) S/P BKA (below knee amputation) unilateral Status: Chronic (5) Acute metabolic encephalopathy Status: Resolved (6) Bacteremia Status: Resolved (7) Chronic systolic (congestive) heart failure Status: Chronic (8) Venous stasis ulcer of left lower extremity Status: Chronic (9) CVA (cerebral vascular accident) Status: Chronic (10) Seborrheic dermatitis Status: Resolved Assessment and Plan 60-year-old male with - Sepsis secondary to cellulitis and bacteremia. S/p IV abx. - Repeat blood cultures from 10/15 and 10/30 with no growth. - Resolved. - Cellulitis of the left lower extremity - with staph coag neg bacteremia in 4/4 tubes. Staph haemolyticus in aerobic tubes, with different sensitivities, contaminant likely. - Chronic venous stasis ulcers on the left lower ext. Clinically improved- cellulitis resolved. - wound cultures - MSSA, Serratia marcescens - Dr. Messina/TISHA ff; was on Keflex and Cipro for 10 days (vancomycin DCed) and completed 10/26. - Resolved. - Bilateral CVA:MRI showed acute cortical infarct. MRA of head and neck unremarkable. Neurology following. S/p ASA and Plavix. -Continue with Statin. -Continue Coumadin 3 mg daily and monitor INR/PT keep INR between 2 and 3, pharmacy consulted for assistance with management. - Acute metabolic encephalopathy - baseline neuro status unknown but there is suspicion of chronic cognitive impairment/dementia. -CT head was unremarkable for any acute findings. -Mildly elevated NH3 level. Continue lactulose. Liver sonogram with gallstone and sludge -Consulted psychiatry who started Haldol and discontinued Geodon. Improving behavior discontinued restraints since 11/03/15 -Continue Seroquel 50 mg at bedtime prn added on 11/13 however patient has not taken this since 11/22 -resolved. - Mild elevation of troponin without upward trend in the setting of CKD/CHF - No chest pain. -Likely due to CKD/CHF. 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 Chronic, stable. -Avoid nephrotoxins. -Monitor BMP - Hypernatremia - Na 147 upon arrival -Na 143 now, resolved. - Metabolic acidosis due to CKD ; resolved - Cardiomyopathy/chronic systolic CHF LVEF 35% on echo 03/2015. Denies shortness of breath. Compensated. Ct Coreg 25mg BID and enalapril. Lasix as needed. -Cardiology following to consider AICD when patient is able to consent. -Currently unable to consent. - Hypertension. Chronic, controlled. Continue enalapril and carvedilol - Diabetic mellitus - Glucose was well controlled. We discontinued all insulin. -accu-checks discontinued as patient's blood sugar well controlled and Hgb A1c 6.9. -continue diet control - PAD -stable. Continue above meds - Physical deconditioning: PT following. Out of bed to chair 3 times a day. Fall precautions - DVT prophylaxis with Coumadin Discharge Planning Discharge to SNF when arranged. Problem Qualifiers (1) Cellulitis: Lars Rich Dec 23, 2015 14:04
[2015-12-23 16:00] VITALS: BP 136/75; PULSE 86; RESP 19; TEMP 97.8; O2SAT 95
[2015-12-23] MEDS ORDERED: WARFARIN SOD 5 MG TAB PO SCH (16:00)
[2015-12-23 20:45] VITALS: BP 123/67; PULSE 79; RESP 20; TEMP 96.5; O2SAT 98
[2015-12-23] MEDS: ENALAPRIL MALEATE 5 MG TAB PO SCH (21:26)
[2015-12-24 00:19] VITALS: BP 120/78; PULSE 71; RESP 17; TEMP 98.9; O2SAT 97
[2015-12-24 04:25] VITALS: BP 135/84; PULSE 77; RESP 19; TEMP 96.6; O2SAT 97
[2015-12-24] MEDS: ISOSORBIDE MONONITRATE 60 MG TAB PO SCH (06:16)
[2015-12-24 08:04] LABS: INTERNATIONAL NORMALIZED RATIO 1.4 RATIO; PROTHROMBIN TIME - PATIENT 14.8 SEC (9.8-11.4)
[2015-12-24 08:40] VITALS: BP 124/78; PULSE 79; RESP 16; TEMP 96.5; O2SAT 97
--- NOTE | 2015-12-24 08:52 | HHI.PR ---
Subjective Remarks Mr. Amado is a 60 year old male with a history of ischemic cardiomyopathy (EF 35-40%), CABG, stent placement who was found on the floor by family members and subsequently brought to the ED for altered mental status Follow-up encephalopathy 12/24/15-patient seen and examined, no acute event overnight and currently afebrile. Patient is currently laying in bed Objective Vitals Vital Signs Date Time Temp Pulse Resp B/P Pulse Ox O2 Delivery O2 Flow Rate FiO2 12/24/15 08:40 96.5 79 16 124/78 97 12/24/15 04:25 96.6 77 19 135/84 97 12/24/15 00:19 98.9 71 17 120/78 97 12/23/15 20:45 96.5 79 20 123/67 98 12/23/15 16:00 97.8 86 19 136/75 95 12/23/15 12:00 97.8 68 18 105/70 98 I/O 12/23/15 12/23/15 12/23/15 12/24/15 12/24/15 12/24/15 06:59 14:59 22:59 06:59 14:59 22:59 Intake Total 330 ml 360 ml 650 ml 380 ml Balance 330 ml 360 ml 650 ml 380 ml Intake Oral 330 ml 360 ml 650 ml 380 ml # Voids 2 2 3 2 # Bowel Movements 0 0 0 Objective Remarks GENERAL: Well-nourished, well-developed patient and laying in bed SKIN: Scaly erythematous flakes on his face EYES: No scleral icterus. No injection or drainage. NECK: Supple, trachea midline. No JVD or lymphadenopathy. CARDIOVASCULAR: Regular rate and rhythm without murmurs RESPIRATORY: Breath sounds equal bilaterally. No wheezing GASTROINTESTINAL: Abdomen soft, non-tender, nondistended. EXTREMITIES: No cyanosis, or edema. s/p right BKA. LLE with 1+ edema, several shallow venous stasis ulcerations on anterior calve, no cellulitis. BACK: Nontender without obvious deformity. No CVA tenderness. Procedures None A/P Problem List: (1) Cellulitis Status: Resolved (2) Ischemic cardiomyopathy Status: Chronic (3) Diabetes mellitus type 2 in obese Status: Chronic (4) S/P BKA (below knee amputation) unilateral Status: Chronic (5) Acute metabolic encephalopathy Status: Resolved (6) Bacteremia Status: Resolved (7) Chronic systolic (congestive) heart failure Status: Chronic (8) Venous stasis ulcer of left lower extremity Status: Chronic (9) CVA (cerebral vascular accident) Status: Chronic (10) Seborrheic dermatitis Status: Resolved Assessment and Plan 60-year-old male with - Sepsis. resolved. - Cellulitis of the left lower ext. resolved. - with staph coag neg bacteremia in 4/4 tubes. Staph haemolyticus in aerobic tubes, with different sensitivities, contaminant likely. - Chronic venous stasis ulcers on the left lower ext. Clinically improved- cellulitis resolved. - wound cultures - MSSA, Serratia marcescens - Completed course of antibiotics - Bilateral CVA:MRI showed acute cortical infarct. MRA of head and neck unremarkable. Neurology following. Was on ASA and Plavix. - Continue Statin, Coumadin and monitor INR/PT keep INR between 2 and 3. - Acute metabolic encephalopathy - baseline neuro status unknown but there is suspicion of chronic cognitive impairment/dementia. -CT head was unremarkable for any acute findings. -Mildly elevated NH3 level. Continue lactulose. Liver sonogram with gallstone and sludge -Continue Seroquel 50 mg at bedtime when necessary on 11/13. - Diabetic mellitus - Glucose was well controlled. We discontinued all insulin. - accu-check. If needed, we will start low long acting insulin and sliding scale insulin. - Acute on CKD stage 4 likely diabetic and from diuretics. Stable and monitor BUN and creatinine. Avoid nephrotoxins. - Hypernatremia -stable - Metabolic acidosis due to CKD ; resolved - Cardiomyopathy/chronic systolic CHF LVEF 35% on echo 03/2015. Compensated. Continue Coreg 12.5mg BID and enalapril. - Cardiology evaluated patient to consider AICD when patient is able to consent. Currently unable to consent. - Hypertension. Currently normotensive on Coreg 25 mg twice a day , enalapril 5 mg daily. Continue to monitor BP - Physical deconditioning: PT following. Out of bed to chair 3 times a day. Fall precautions -Seborrheic dermatitis: Resolved with betamethasone dipropionate topical - DVT prophylaxis with Coumadin Discharge Planning Awaiting placement to SNF Problem Qualifiers (1) Cellulitis: Jakub Quevedo MD Dec 24, 2015 08:52
[2015-12-24] MEDS: SODIUM CHLORIDE 0.9% FLUSH 5 ML FLUSH FLUSH SCH ×2 (09:00→21:39)
[2015-12-24] MEDS: NYSTATIN 100,000 U/GM PWD 15 GM BTL TOPICAL SCH (09:00)
[2015-12-24] MEDS: LACTULOSE SYRUP 20 GM/30 ML CUP PO SCH (09:35)
[2015-12-24] MEDS: CARVEDILOL 12.5 MG TAB PO SCH ×2 (09:35→21:39)
[2015-12-24] MEDS: BETAMETHASONE DIPROPIONATE 0.05% OINT 15 GM TUBE TOP SCH ×2 (09:36→21:40)
[2015-12-24] MEDS: DOCUSATE SODIUM 50 MG/SENNA 8.6 MG TAB PO SCH ×2 (09:36→21:39)
[2015-12-24] MEDS: ATORVASTATIN 80 MG TAB PO SCH (09:36)
[2015-12-24 13:13] VITALS: BP 125/77; PULSE 76; RESP 16; TEMP 96.6; O2SAT 98
[2015-12-24] MEDS ORDERED: WARFARIN SOD 5 MG TAB PO SCH (16:00)
[2015-12-24] MEDS ORDERED: WARFARIN SOD 3 MG TAB PO SCH (16:00)
[2015-12-24 16:38] VITALS: BP_SYST 133; BP_SYST 155; BP_DIAS 81; PULSE 75; RESP 16; TEMP 98.1; O2SAT 95
[2015-12-24 20:00] VITALS: BP 109/66; PULSE 79; RESP 18; TEMP 96.5; O2SAT 99
[2015-12-24] MEDS: ENALAPRIL MALEATE 5 MG TAB PO SCH (21:39)
[2015-12-25] VITALS (7 sets, daily range): BP systolic 116–162; BP diastolic 73–99; PULSE 69–76; RESP 16–20; TEMP 96.7–98.2; O2SAT 96–98
[2015-12-25] MEDS: ISOSORBIDE MONONITRATE 60 MG TAB PO SCH (06:01)
[2015-12-25 08:37] LABS: INTERNATIONAL NORMALIZED RATIO 1.5 RATIO; PROTHROMBIN TIME - PATIENT 15.9 SEC (9.8-11.4)
[2015-12-25] MEDS: BETAMETHASONE DIPROPIONATE 0.05% OINT 15 GM TUBE TOP SCH ×2 (09:00→22:08)
[2015-12-25] MEDS: NYSTATIN 100,000 U/GM PWD 15 GM BTL TOPICAL SCH (09:00)
[2015-12-25] MEDS: SODIUM CHLORIDE 0.9% FLUSH 5 ML FLUSH FLUSH SCH ×2 (09:00→21:00)
--- NOTE | 2015-12-25 09:24 | HHI.PR ---
Subjective Remarks Mr. Amado is a 60 year old male with a history of ischemic cardiomyopathy (EF 35-40%), CABG, stent placement who was found on the floor by family members and subsequently brought to the ED for altered mental status Follow-up encephalopathy 12/24/15-patient seen and examined, no acute event overnight and currently afebrile. Patient is currently laying in bed 12/25/15-patient seen and examined; stable and no complaint.Afebrile Objective Vitals Vital Signs Date Time Temp Pulse Resp B/P Pulse Ox O2 Delivery O2 Flow Rate FiO2 12/25/15 09:13 96.8 76 16 125/79 97 12/25/15 06:46 97.5 73 18 124/84 97 12/25/15 00:00 98.2 74 20 116/73 97 12/24/15 20:00 96.5 79 18 109/66 99 12/24/15 16:38 98.1 75 16 133/81 95 12/24/15 13:13 96.6 76 16 125/77 98 I/O 12/24/15 12/24/15 12/24/15 12/25/15 12/25/15 12/25/15 07:00 15:00 23:00 07:00 15:00 23:00 Intake Total 380 ml 240 ml 480 ml Balance 380 ml 240 ml 480 ml Intake Oral 380 ml 240 ml 480 ml # Voids 2 1 3 2 # Bowel Movements 0 1 0 0 Objective Remarks GENERAL: Well-nourished, well-developed patient and laying in bed SKIN: Scaly erythematous flakes on his face EYES: No scleral icterus. No injection or drainage. NECK: Supple, trachea midline. No JVD or lymphadenopathy. CARDIOVASCULAR: Regular rate and rhythm without murmurs RESPIRATORY: Breath sounds equal bilaterally. No wheezing GASTROINTESTINAL: Abdomen soft, non-tender, nondistended. EXTREMITIES: No cyanosis, or edema. s/p right BKA. LLE with 1+ edema, several shallow venous stasis ulcerations on anterior calve, no cellulitis. BACK: Nontender without obvious deformity. No CVA tenderness. Procedures None A/P Problem List: (1) Cellulitis Status: Resolved (2) Ischemic cardiomyopathy Status: Chronic (3) Diabetes mellitus type 2 in obese Status: Chronic (4) S/P BKA (below knee amputation) unilateral Status: Chronic (5) Acute metabolic encephalopathy Status: Resolved (6) Bacteremia Status: Resolved (7) Chronic systolic (congestive) heart failure Status: Chronic (8) Venous stasis ulcer of left lower extremity Status: Chronic (9) CVA (cerebral vascular accident) Status: Chronic (10) Seborrheic dermatitis Status: Resolved Assessment and Plan 60-year-old male with - Sepsis. resolved. - Cellulitis of the left lower ext. resolved. - with staph coag neg bacteremia in 4/4 tubes. Staph haemolyticus in aerobic tubes, with different sensitivities, contaminant likely. - Chronic venous stasis ulcers on the left lower ext. Clinically improved- cellulitis resolved. - wound cultures - MSSA, Serratia marcescens - Completed course of antibiotics - Bilateral CVA:MRI showed acute cortical infarct. MRA of head and neck unremarkable. Neurology following. Was on ASA and Plavix. - Continue Statin, Coumadin and monitor INR/PT keep INR between 2 and 3. - Acute metabolic encephalopathy - baseline neuro status unknown but there is suspicion of chronic cognitive impairment/dementia. -CT head was unremarkable for any acute findings. -Mildly elevated NH3 level. Continue lactulose. Liver sonogram with gallstone and sludge -Continue Seroquel 50 mg at bedtime when necessary on 11/13. - Diabetic mellitus - Glucose was well controlled. We discontinued all insulin. - accu-check. If needed, we will start low long acting insulin and sliding scale insulin. - Acute on CKD stage 4 likely diabetic and from diuretics. Stable and monitor BUN and creatinine. Avoid nephrotoxins. - Hypernatremia -stable - Metabolic acidosis due to CKD ; resolved - Cardiomyopathy/chronic systolic CHF LVEF 35% on echo 03/2015. Compensated. Continue Coreg 12.5mg BID and enalapril. - Cardiology evaluated patient to consider AICD when patient is able to consent. Currently unable to consent. - Hypertension. Currently normotensive on Coreg 25 mg twice a day , enalapril 5 mg daily. Continue to monitor BP - Physical deconditioning: PT following. Out of bed to chair 3 times a day. Fall precautions -Seborrheic dermatitis: Resolved with betamethasone dipropionate topical - DVT prophylaxis with Coumadin Discharge Planning Awaiting placement to SNF Problem Qualifiers (1) Cellulitis: Jakub Quevedo MD Dec 25, 2015 09:24
[2015-12-25] MEDS: CARVEDILOL 12.5 MG TAB PO SCH ×2 (10:09→22:08)
[2015-12-25] MEDS: ATORVASTATIN 80 MG TAB PO SCH (10:10)
[2015-12-25] MEDS: LACTULOSE SYRUP 20 GM/30 ML CUP PO SCH (10:10)
[2015-12-25] MEDS: DOCUSATE SODIUM 50 MG/SENNA 8.6 MG TAB PO SCH ×2 (10:10→22:08)
[2015-12-25] MEDS ORDERED: WARFARIN SOD 3 MG TAB PO SCH (16:00)
[2015-12-25] MEDS ORDERED: WARFARIN SOD 5 MG TAB PO SCH (16:00)
[2015-12-25] MEDS: ENALAPRIL MALEATE 5 MG TAB PO SCH (22:08)
[2015-12-26 00:48] VITALS: BP 153/84; PULSE 74; RESP 20; TEMP 96.2; O2SAT 95
[2015-12-26 04:58] VITALS: BP 187/105; PULSE 76; RESP 20; TEMP 96.3; O2SAT 97
[2015-12-26] MEDS: ISOSORBIDE MONONITRATE 60 MG TAB PO SCH (06:31)
[2015-12-26 08:00] VITALS: BP 167/102; PULSE 76; RESP 18; TEMP 97.1; O2SAT 96
[2015-12-26 08:26] LABS: INTERNATIONAL NORMALIZED RATIO 1.8 RATIO; PROTHROMBIN TIME - PATIENT 19.4 SEC (9.8-11.4)
[2015-12-26] MEDS: NYSTATIN 100,000 U/GM PWD 15 GM BTL TOPICAL SCH (09:00)
[2015-12-26] MEDS: SODIUM CHLORIDE 0.9% FLUSH 5 ML FLUSH FLUSH SCH ×2 (09:00→21:00)
[2015-12-26] MEDS: LACTULOSE SYRUP 20 GM/30 ML CUP PO SCH ×2 (09:00→09:40)
[2015-12-26] MEDS: BETAMETHASONE DIPROPIONATE 0.05% OINT 15 GM TUBE TOP SCH ×2 (09:00→21:54)
[2015-12-26] MEDS: DOCUSATE SODIUM 50 MG/SENNA 8.6 MG TAB PO SCH ×2 (09:40→21:00)
[2015-12-26] MEDS: CARVEDILOL 12.5 MG TAB PO SCH ×2 (09:40→21:54)
[2015-12-26] MEDS: ATORVASTATIN 80 MG TAB PO SCH (09:40)
--- NOTE | 2015-12-26 09:41 | HHI.PR ---
Subjective Remarks Mr. Amado is a 60 year old male with a history of ischemic cardiomyopathy (EF 35-40%), CABG, stent placement who was found on the floor by family members and subsequently brought to the ED for altered mental status Follow-up encephalopathy 12/24/15-patient seen and examined, no acute event overnight and currently afebrile. Patient is currently laying in bed 12/25/15-patient seen and examined; stable and no complaint.Afebrile 12/26/15-patient seen and examined; BP slightly up, denies any chest pain or shortness of breath. No acute event overnight and currently afebrile Objective Vitals Vital Signs Date Time Temp Pulse Resp B/P Pulse Ox O2 Delivery O2 Flow Rate FiO2 12/26/15 08:00 97.1 76 18 167/102 96 12/26/15 04:58 96.3 76 20 187/105 97 12/26/15 00:48 96.2 74 20 153/84 95 12/25/15 20:46 97.5 69 20 135/82 96 12/25/15 17:13 96.7 76 16 162/99 96 12/25/15 13:15 97.0 74 16 118/73 96 12/25/15 11:19 98 I/O 12/25/15 12/25/15 12/25/15 12/26/15 12/26/15 12/26/15 06:59 14:59 22:59 06:59 14:59 22:59 Intake Total 360 ml Balance 360 ml Intake Oral 360 ml # Voids 3 0 2 # Bowel Movements 1 Objective Remarks GENERAL: Well-nourished, well-developed patient and laying in bed SKIN: Scaly erythematous flakes on his face EYES: No scleral icterus. No injection or drainage. NECK: Supple, trachea midline. No JVD or lymphadenopathy. CARDIOVASCULAR: Regular rate and rhythm without murmurs RESPIRATORY: Breath sounds equal bilaterally. No wheezing GASTROINTESTINAL: Abdomen soft, non-tender, nondistended. EXTREMITIES: No cyanosis, or edema. s/p right BKA. LLE with 1+ edema, several shallow venous stasis ulcerations on anterior calve, no cellulitis. BACK: Nontender without obvious deformity. No CVA tenderness. Procedures None A/P Problem List: (1) Cellulitis Status: Resolved (2) Ischemic cardiomyopathy Status: Chronic (3) Diabetes mellitus type 2 in obese Status: Chronic (4) S/P BKA (below knee amputation) unilateral Status: Chronic (5) Acute metabolic encephalopathy Status: Resolved (6) Bacteremia Status: Resolved (7) Chronic systolic (congestive) heart failure Status: Chronic (8) Venous stasis ulcer of left lower extremity Status: Chronic (9) CVA (cerebral vascular accident) Status: Chronic (10) Seborrheic dermatitis Status: Resolved Assessment and Plan 60-year-old male with - Sepsis. resolved. - Cellulitis of the left lower ext. resolved. - with staph coag neg bacteremia in 4/4 tubes. Staph haemolyticus in aerobic tubes, with different sensitivities, contaminant likely. - Chronic venous stasis ulcers on the left lower ext. Clinically improved- cellulitis resolved. - wound cultures - MSSA, Serratia marcescens - Completed course of antibiotics - Bilateral CVA:MRI showed acute cortical infarct. MRA of head and neck unremarkable. Neurology following. Was on ASA and Plavix. - Continue Statin, Coumadin and monitor INR/PT keep INR between 2 and 3. - Acute metabolic encephalopathy - baseline neuro status unknown but there is suspicion of chronic cognitive impairment/dementia. -CT head was unremarkable for any acute findings. -Mildly elevated NH3 level. Continue lactulose. Liver sonogram with gallstone and sludge -Continue Seroquel 50 mg at bedtime when necessary on 11/13. - Diabetic mellitus - Glucose was well controlled. We discontinued all insulin. - accu-check. If needed, we will start low long acting insulin and sliding scale insulin. - Acute on CKD stage 4 likely diabetic and from diuretics. Stable and monitor BUN and creatinine. Avoid nephrotoxins. - Hypernatremia -stable - Metabolic acidosis due to CKD ; resolved - Cardiomyopathy/chronic systolic CHF LVEF 35% on echo 03/2015. Compensated. Continue Coreg 12.5mg BID and enalapril. - Cardiology evaluated patient to consider AICD when patient is able to consent. Currently unable to consent. - Hypertension. Labile BP; on Coreg 25 mg twice a day , enalapril 5 mg daily. Will increase enalapril to 5 mg twice a day. Continue to monitor BP - Physical deconditioning: PT following. Out of bed to chair 3 times a day. Fall precautions -Seborrheic dermatitis: Resolved with betamethasone dipropionate topical - DVT prophylaxis with Coumadin Discharge Planning Awaiting placement to SNF Problem Qualifiers (1) Cellulitis: Jakub Quevedo MD Dec 26, 2015 09:41
[2015-12-26] MEDS ORDERED: ENALAPRIL MALEATE 5 MG TAB PO ONE (10:30)
[2015-12-26 12:00] VITALS: BP 101/65; PULSE 76; RESP 19; TEMP 96.4; O2SAT 99
[2015-12-26 16:00] VITALS: BP 134/85; PULSE 76; RESP 18; TEMP 97.5; O2SAT 98
[2015-12-26] MEDS ORDERED: WARFARIN SOD 5 MG TAB PO ONE (16:00)
[2015-12-26 20:45] VITALS: BP 138/91; PULSE 78; RESP 17; TEMP 96.8; O2SAT 95
[2015-12-26] MEDS: ENALAPRIL MALEATE 5 MG TAB PO SCH (21:54)
[2015-12-27] VITALS: BP 151/90; PULSE 79; RESP 16; TEMP 96.2; O2SAT 95
[2015-12-27 04:00] VITALS: BP 140/97; PULSE 73; RESP 17; TEMP 96.8; O2SAT 96
[2015-12-27] MEDS: ISOSORBIDE MONONITRATE 60 MG TAB PO SCH (06:23)
[2015-12-27 07:39] LABS: INTERNATIONAL NORMALIZED RATIO 2.2 RATIO; PROTHROMBIN TIME - PATIENT 23.4 SEC (9.8-11.4)
[2015-12-27 08:00] VITALS: BP 99/60; PULSE 75; RESP 18; TEMP 95.5; O2SAT 96
[2015-12-27] MEDS: CARVEDILOL 12.5 MG TAB PO SCH ×2 (08:37→22:18)
[2015-12-27] MEDS: ENALAPRIL MALEATE 5 MG TAB PO SCH ×2 (08:37→22:17)
[2015-12-27] MEDS: SODIUM CHLORIDE 0.9% FLUSH 5 ML FLUSH FLUSH SCH ×2 (09:00→21:00)
[2015-12-27] MEDS: NYSTATIN 100,000 U/GM PWD 15 GM BTL TOPICAL SCH (09:00)
[2015-12-27] MEDS: BETAMETHASONE DIPROPIONATE 0.05% OINT 15 GM TUBE TOP SCH ×2 (09:00→22:18)
--- NOTE | 2015-12-27 09:11 | HHI.PR ---
Subjective Remarks Mr. Amado is a 60 year old male with a history of ischemic cardiomyopathy (EF 35-40%), CABG, stent placement who was found on the floor by family members and subsequently brought to the ED for altered mental status Follow-up encephalopathy 12/24/15-patient seen and examined, no acute event overnight and currently afebrile. Patient is currently laying in bed 12/25/15-patient seen and examined; stable and no complaint.Afebrile 12/26/15-patient seen and examined; BP slightly up, denies any chest pain or shortness of breath. No acute event overnight and currently afebrile 12/27/15-patient seen and examined; stable and no complaints. Afebrile in no acute event overnight Objective Vitals Vital Signs Date Time Temp Pulse Resp B/P Pulse Ox O2 Delivery O2 Flow Rate FiO2 12/27/15 08:00 95.5 75 18 99/60 96 12/27/15 04:00 96.8 73 17 140/97 96 12/27/15 00:00 96.2 79 16 151/90 95 12/26/15 20:45 96.8 78 17 138/91 95 12/26/15 16:00 97.5 76 18 134/85 98 12/26/15 12:00 96.4 76 19 101/65 99 I/O 12/26/15 12/26/15 12/26/15 12/27/15 12/27/15 12/27/15 07:00 15:00 23:00 07:00 15:00 23:00 Intake Total 360 ml 240 ml 120 ml Output Total 1 ml Balance 359 ml 240 ml 120 ml Intake Oral 360 ml 240 ml 120 ml Stool Total 1 ml # Voids 2 4 2 2 # Bowel Movements 1 1 1 Objective Remarks GENERAL: Well-nourished, well-developed patient and laying in bed SKIN: Scaly erythematous flakes on his face EYES: No scleral icterus. No injection or drainage. NECK: Supple, trachea midline. No JVD or lymphadenopathy. CARDIOVASCULAR: Regular rate and rhythm without murmurs RESPIRATORY: Breath sounds equal bilaterally. No wheezing GASTROINTESTINAL: Abdomen soft, non-tender, nondistended. EXTREMITIES: No cyanosis, or edema. s/p right BKA. LLE with 1+ edema, several shallow venous stasis ulcerations on anterior calve, no cellulitis. BACK: Nontender without obvious deformity. No CVA tenderness. Procedures None A/P Problem List: (1) Cellulitis Status: Resolved (2) Ischemic cardiomyopathy Status: Chronic (3) Diabetes mellitus type 2 in obese Status: Chronic (4) S/P BKA (below knee amputation) unilateral Status: Chronic (5) Acute metabolic encephalopathy Status: Resolved (6) Bacteremia Status: Resolved (7) Chronic systolic (congestive) heart failure Status: Chronic (8) Venous stasis ulcer of left lower extremity Status: Chronic (9) CVA (cerebral vascular accident) Status: Chronic (10) Seborrheic dermatitis Status: Resolved Assessment and Plan 60-year-old male with - Sepsis. resolved. - Cellulitis of the left lower ext. resolved. - with staph coag neg bacteremia in 4/4 tubes. Staph haemolyticus in aerobic tubes, with different sensitivities, contaminant likely. - Chronic venous stasis ulcers on the left lower ext. Clinically improved- cellulitis resolved. - wound cultures - MSSA, Serratia marcescens - Completed course of antibiotics - Bilateral CVA:MRI showed acute cortical infarct. MRA of head and neck unremarkable. Neurology following. Was on ASA and Plavix. - Continue Statin, Coumadin and monitor INR/PT keep INR between 2 and 3. - Acute metabolic encephalopathy - baseline neuro status unknown but there is suspicion of chronic cognitive impairment/dementia. -CT head was unremarkable for any acute findings. -Mildly elevated NH3 level. Continue lactulose. Liver sonogram with gallstone and sludge -Continue Seroquel 50 mg at bedtime when necessary on 11/13. - Diabetic mellitus - Glucose was well controlled. We discontinued all insulin. - accu-check. If needed, we will start low long acting insulin and sliding scale insulin. - Acute on CKD stage 4 likely diabetic and from diuretics. Stable and monitor BUN and creatinine. Avoid nephrotoxins. - Hypernatremia -stable - Metabolic acidosis due to CKD ; resolved - Cardiomyopathy/chronic systolic CHF LVEF 35% on echo 03/2015. Compensated. Continue Coreg 12.5mg BID and enalapril. - Cardiology evaluated patient to consider AICD when patient is able to consent. Currently unable to consent. - Hypertension. Normotensive on on Coreg 25 mg twice a day , enalapril 5 mg twice a day. Continue to monitor BP - Physical deconditioning: PT following. Out of bed to chair 3 times a day. Fall precautions -Seborrheic dermatitis: Resolved with betamethasone dipropionate topical - DVT prophylaxis with Coumadin Discharge Planning Awaiting placement to SNF Problem Qualifiers (1) Cellulitis: Jakub Quevedo MD Dec 27, 2015 09:11
[2015-12-27] MEDS: DOCUSATE SODIUM 50 MG/SENNA 8.6 MG TAB PO SCH ×2 (09:37→21:00)
[2015-12-27] MEDS: ATORVASTATIN 80 MG TAB PO SCH (09:38)
[2015-12-27] MEDS: LACTULOSE SYRUP 20 GM/30 ML CUP PO SCH (09:38)
[2015-12-27 12:00] VITALS: BP 121/78; PULSE 73; RESP 18; TEMP 96.7; O2SAT 98
[2015-12-27 16:00] VITALS: BP 108/68; PULSE 64; RESP 18; TEMP 97.7; O2SAT 97
[2015-12-27] MEDS: WARFARIN SOD 4 MG TAB PO SCH (16:00)
[2015-12-28] VITALS: BP_SYST 143; BP_SYST 170; BP_DIAS 79; BP_DIAS 93; PULSE 76; PULSE 84; RESP 17; RESP 20; TEMP 97.8; TEMP 98.2; O2SAT 98
[2015-12-28 04:00] VITALS: BP 159/95; PULSE 130; RESP 20; TEMP 96.2; O2SAT 95
[2015-12-28] MEDS: ISOSORBIDE MONONITRATE 60 MG TAB PO SCH (06:26)
[2015-12-28 07:44] LABS: INTERNATIONAL NORMALIZED RATIO 2.1 RATIO; PROTHROMBIN TIME - PATIENT 22.4 SEC (9.8-11.4)
[2015-12-28 08:00] VITALS: BP 145/84; PULSE 75; RESP 16; TEMP 97; O2SAT 100
[2015-12-28] MEDS: SODIUM CHLORIDE 0.9% FLUSH 5 ML FLUSH FLUSH SCH ×2 (09:00→21:00)
[2015-12-28] MEDS: BETAMETHASONE DIPROPIONATE 0.05% OINT 15 GM TUBE TOP SCH ×2 (09:00→21:53)
[2015-12-28] MEDS: LACTULOSE SYRUP 20 GM/30 ML CUP PO SCH (09:00)
[2015-12-28] MEDS: NYSTATIN 100,000 U/GM PWD 15 GM BTL TOPICAL SCH (09:00)
--- NOTE | 2015-12-28 09:58 | HHI.PR ---
Subjective Remarks Mr. Amado is a 60 year old male with a history of ischemic cardiomyopathy (EF 35-40%), CABG, stent placement who was found on the floor by family members and subsequently brought to the ED for altered mental status Follow-up encephalopathy 12/24/15-patient seen and examined, no acute event overnight and currently afebrile. Patient is currently laying in bed 12/25/15-patient seen and examined; stable and no complaint.Afebrile 12/26/15-patient seen and examined; BP slightly up, denies any chest pain or shortness of breath. No acute event overnight and currently afebrile 12/27/15-patient seen and examined; stable and no complaints. Afebrile in no acute event overnight 12/28/15-patient seen and examined. No change. Vitals stable Objective Vitals Vital Signs Date Time Temp Pulse Resp B/P Pulse Ox O2 Delivery O2 Flow Rate FiO2 12/28/15 08:00 97.0 75 16 145/84 100 12/28/15 04:00 96.2 130 20 159/95 95 12/28/15 00:00 98.2 76 17 170/93 98 12/28/15 00:00 97.8 84 20 143/79 12/27/15 16:00 97.7 64 18 108/68 97 12/27/15 12:00 96.7 73 18 121/78 98 I/O 12/27/15 12/27/15 12/27/15 12/28/15 12/28/15 12/28/15 07:00 15:00 23:00 07:00 15:00 23:00 Intake Total 120 ml 480 ml 240 ml Output Total 900 ml Balance 120 ml 480 ml 240 ml -900 ml Intake Oral 120 ml 480 ml 240 ml Output Urine Total 900 ml # Voids 2 3 1 # Bowel Movements 1 0 1 Objective Remarks GENERAL: Well-nourished, well-developed patient and laying in bed SKIN: Scaly erythematous flakes on his face EYES: No scleral icterus. No injection or drainage. NECK: Supple, trachea midline. No JVD or lymphadenopathy. CARDIOVASCULAR: Regular rate and rhythm without murmurs RESPIRATORY: Breath sounds equal bilaterally. No wheezing GASTROINTESTINAL: Abdomen soft, non-tender, nondistended. EXTREMITIES: No cyanosis, or edema. s/p right BKA. LLE with 1+ edema, several shallow venous stasis ulcerations on anterior calve, no cellulitis. BACK: Nontender without obvious deformity. No CVA tenderness. Procedures None A/P Problem List: (1) Cellulitis Status: Resolved (2) Ischemic cardiomyopathy Status: Chronic (3) Diabetes mellitus type 2 in obese Status: Chronic (4) S/P BKA (below knee amputation) unilateral Status: Chronic (5) Acute metabolic encephalopathy Status: Resolved (6) Bacteremia Status: Resolved (7) Chronic systolic (congestive) heart failure Status: Chronic (8) Venous stasis ulcer of left lower extremity Status: Chronic (9) CVA (cerebral vascular accident) Status: Chronic (10) Seborrheic dermatitis Status: Resolved Assessment and Plan 60-year-old male with - Sepsis. resolved. - Cellulitis of the left lower ext. resolved. - with staph coag neg bacteremia in 4/4 tubes. Staph haemolyticus in aerobic tubes, with different sensitivities, contaminant likely. - Chronic venous stasis ulcers on the left lower ext. Clinically improved- cellulitis resolved. - wound cultures - MSSA, Serratia marcescens - Completed course of antibiotics - Bilateral CVA:MRI showed acute cortical infarct. MRA of head and neck unremarkable. Neurology following. Was on ASA and Plavix. - Continue Statin, Coumadin and monitor INR/PT keep INR between 2 and 3. - Acute metabolic encephalopathy - baseline neuro status unknown but there is suspicion of chronic cognitive impairment/dementia. -CT head was unremarkable for any acute findings. -Mildly elevated NH3 level. Continue lactulose. Liver sonogram with gallstone and sludge -Continue Seroquel 50 mg at bedtime when necessary on 11/13. - Diabetic mellitus - Glucose was well controlled. We discontinued all insulin. - accu-check. If needed, we will start low long acting insulin and sliding scale insulin. - Acute on CKD stage 4 likely diabetic and from diuretics. Stable and monitor BUN and creatinine. Avoid nephrotoxins. - Hypernatremia -stable - Metabolic acidosis due to CKD ; resolved - Cardiomyopathy/chronic systolic CHF LVEF 35% on echo 03/2015. Compensated. Continue Coreg 12.5mg BID and enalapril. - Cardiology evaluated patient to consider AICD when patient is able to consent. Currently unable to consent. - Hypertension. Normotensive on on Coreg 25 mg twice a day , enalapril 5 mg twice a day. Continue to monitor BP - Physical deconditioning: PT following. Out of bed to chair 3 times a day. Fall precautions -Seborrheic dermatitis: Resolved with betamethasone dipropionate topical - DVT prophylaxis with Coumadin Discharge Planning Awaiting placement to SNF Problem Qualifiers (1) Cellulitis: Jakub Quevedo MD Dec 28, 2015 09:58
[2015-12-28] MEDS: DOCUSATE SODIUM 50 MG/SENNA 8.6 MG TAB PO SCH ×2 (11:07→21:50)
[2015-12-28] MEDS: CARVEDILOL 12.5 MG TAB PO SCH ×2 (11:07→21:00)
[2015-12-28] MEDS: ENALAPRIL MALEATE 5 MG TAB PO SCH ×2 (11:07→21:00)
[2015-12-28] MEDS: ATORVASTATIN 80 MG TAB PO SCH (11:07)
[2015-12-28 12:00] VITALS: BP 82/55; PULSE 85; RESP 16; TEMP 96.7; O2SAT 99
[2015-12-28] MEDS: WARFARIN SOD 4 MG TAB PO SCH (16:38)
[2015-12-28 16:55] VITALS: BP 130/81; PULSE 76; RESP 16; TEMP 97.8; O2SAT 96
[2015-12-28 20:00] VITALS: BP 104/56; PULSE 80; RESP 18; TEMP 97.6; O2SAT 97
[2015-12-29 00:42] VITALS: BP 130/70; PULSE 76; RESP 18; TEMP 97.1; O2SAT 98
[2015-12-29 04:04] VITALS: BP 156/84; PULSE 71; RESP 16; TEMP 96.8; O2SAT 94
[2015-12-29] MEDS: ISOSORBIDE MONONITRATE 60 MG TAB PO SCH (06:36)
[2015-12-29 08:00] VITALS: BP 169/98; PULSE 77; RESP 16; TEMP 95.9; O2SAT 96
[2015-12-29 08:22] LABS: INTERNATIONAL NORMALIZED RATIO 2.2 RATIO; PROTHROMBIN TIME - PATIENT 23.9 SEC (9.8-11.4)
--- NOTE | 2015-12-29 08:52 | HHI.PR ---
Subjective Remarks Mr. Amado is a 60 year old male with a history of ischemic cardiomyopathy (EF 35-40%), CABG, stent placement who was found on the floor by family members and subsequently brought to the ED for altered mental status Follow-up encephalopathy 12/24/15-patient seen and examined, no acute event overnight and currently afebrile. Patient is currently laying in bed 12/25/15-patient seen and examined; stable and no complaint.Afebrile 12/26/15-patient seen and examined; BP slightly up, denies any chest pain or shortness of breath. No acute event overnight and currently afebrile 12/27/15-patient seen and examined; stable and no complaints. Afebrile in no acute event overnight 12/28/15-patient seen and examined. No change. Vitals stable 12/29/15-patient seen and examined; He is asking me if I could talk to his sister in order for him to be discharged home. No other issues Objective Vitals Vital Signs Date Time Temp Pulse Resp B/P Pulse Ox O2 Delivery O2 Flow Rate FiO2 12/29/15 04:04 96.8 71 16 156/84 94 12/29/15 00:42 97.1 76 18 130/70 98 12/28/15 20:00 97.6 80 18 104/56 97 12/28/15 16:55 97.8 76 16 130/81 96 12/28/15 12:00 96.7 85 16 82/55 99 I/O 12/28/15 12/28/15 12/28/15 12/29/15 12/29/15 12/29/15 06:59 14:59 22:59 06:59 14:59 22:59 Intake Total 240 ml 240 ml Output Total 900 ml Balance -900 ml 240 ml 240 ml Intake Oral 240 ml 240 ml Output Urine Total 900 ml # Voids 1 2 # Bowel Movements 1 Objective Remarks GENERAL: Well-nourished, well-developed patient and laying in bed SKIN: Scaly erythematous flakes on his face EYES: No scleral icterus. No injection or drainage. NECK: Supple, trachea midline. No JVD or lymphadenopathy. CARDIOVASCULAR: Regular rate and rhythm without murmurs RESPIRATORY: Breath sounds equal bilaterally. No wheezing GASTROINTESTINAL: Abdomen soft, non-tender, nondistended. EXTREMITIES: No cyanosis, or edema. s/p right BKA. LLE with 1+ edema, several shallow venous stasis ulcerations on anterior calve, no cellulitis. BACK: Nontender without obvious deformity. No CVA tenderness. Procedures None A/P Problem List: (1) Cellulitis Status: Resolved (2) Ischemic cardiomyopathy Status: Chronic (3) Diabetes mellitus type 2 in obese Status: Chronic (4) S/P BKA (below knee amputation) unilateral Status: Chronic (5) Acute metabolic encephalopathy Status: Resolved (6) Bacteremia Status: Resolved (7) Chronic systolic (congestive) heart failure Status: Chronic (8) Venous stasis ulcer of left lower extremity Status: Chronic (9) CVA (cerebral vascular accident) Status: Chronic (10) Seborrheic dermatitis Status: Resolved Assessment and Plan 60-year-old male with - Sepsis. resolved. - Cellulitis of the left lower ext. resolved. - with staph coag neg bacteremia in 4/4 tubes. Staph haemolyticus in aerobic tubes, with different sensitivities, contaminant likely. - Chronic venous stasis ulcers on the left lower ext. Clinically improved- cellulitis resolved. - wound cultures - MSSA, Serratia marcescens - Completed course of antibiotics - Bilateral CVA:MRI showed acute cortical infarct. MRA of head and neck unremarkable. Neurology following. Was on ASA and Plavix. - Continue Statin, Coumadin and monitor INR/PT keep INR between 2 and 3. - Acute metabolic encephalopathy - baseline neuro status unknown but there is suspicion of chronic cognitive impairment/dementia. -CT head was unremarkable for any acute findings. -Mildly elevated NH3 level. Continue lactulose. Liver sonogram with gallstone and sludge -Continue Seroquel 50 mg at bedtime when necessary on 11/13. - Diabetic mellitus - Glucose was well controlled. We discontinued all insulin. - accu-check. If needed, we will start low long acting insulin and sliding scale insulin. - Acute on CKD stage 4 likely diabetic and from diuretics. Stable and monitor BUN and creatinine. Avoid nephrotoxins. - Hypernatremia -stable - Metabolic acidosis due to CKD ; resolved - Cardiomyopathy/chronic systolic CHF LVEF 35% on echo 03/2015. Compensated. Continue Coreg 12.5mg BID and enalapril. - Cardiology evaluated patient to consider AICD when patient is able to consent. Currently unable to consent. - Hypertension. Normotensive on on Coreg 25 mg twice a day , enalapril 5 mg twice a day. Continue to monitor BP - Physical deconditioning: PT following. Out of bed to chair 3 times a day. Fall precautions -Seborrheic dermatitis: Resolved with betamethasone dipropionate topical - DVT prophylaxis with Coumadin Discharge Planning Awaiting placement to SNF Problem Qualifiers (1) Cellulitis: Jakub Quevedo MD Dec 29, 2015 08:52
[2015-12-29] MEDS: LACTULOSE SYRUP 20 GM/30 ML CUP PO SCH ×2 (09:00→09:07)
[2015-12-29] MEDS: SODIUM CHLORIDE 0.9% FLUSH 5 ML FLUSH FLUSH SCH ×2 (09:00→21:00)
[2015-12-29] MEDS: CARVEDILOL 12.5 MG TAB PO SCH ×2 (09:07→21:16)
[2015-12-29] MEDS: ENALAPRIL MALEATE 5 MG TAB PO SCH ×2 (09:07→21:16)
[2015-12-29] MEDS: ATORVASTATIN 80 MG TAB PO SCH (09:07)
[2015-12-29] MEDS: DOCUSATE SODIUM 50 MG/SENNA 8.6 MG TAB PO SCH ×2 (09:07→21:00)
[2015-12-29] MEDS: BETAMETHASONE DIPROPIONATE 0.05% OINT 15 GM TUBE TOP SCH ×2 (09:08→21:17)
[2015-12-29] MEDS: NYSTATIN 100,000 U/GM PWD 15 GM BTL TOPICAL SCH (09:09)
[2015-12-29 12:00] VITALS: BP 160/95; PULSE 75; RESP 18; TEMP 97.6; O2SAT 95
[2015-12-29 16:00] VITALS: BP 109/65; PULSE 89; RESP 18; TEMP 96.7; O2SAT 97
[2015-12-29] MEDS: WARFARIN SOD 4 MG TAB PO SCH ×2 (16:00→18:49)
[2015-12-29 20:00] VITALS: BP 134/81; PULSE 74; RESP 20; TEMP 97.4; O2SAT 99
[2015-12-30 00:22] VITALS: BP 136/88; PULSE 69; RESP 18; TEMP 96.6; O2SAT 97
[2015-12-30 05:43] VITALS: BP 130/76; PULSE 84; RESP 20; TEMP 96.3; O2SAT 97
[2015-12-30] MEDS: ISOSORBIDE MONONITRATE 60 MG TAB PO SCH (06:29)
[2015-12-30] MEDS: SODIUM CHLORIDE 0.9% FLUSH 5 ML FLUSH FLUSH SCH ×2 (07:34→21:00)
[2015-12-30] MEDS: ATORVASTATIN 80 MG TAB PO SCH (07:35)
[2015-12-30] MEDS: ENALAPRIL MALEATE 5 MG TAB PO SCH ×2 (07:35→21:00)
[2015-12-30] MEDS: CARVEDILOL 12.5 MG TAB PO SCH ×2 (07:35→21:00)
[2015-12-30] MEDS: DOCUSATE SODIUM 50 MG/SENNA 8.6 MG TAB PO SCH ×2 (07:36→22:05)
[2015-12-30] MEDS: LACTULOSE SYRUP 20 GM/30 ML CUP PO SCH (07:36)
[2015-12-30] MEDS: BETAMETHASONE DIPROPIONATE 0.05% OINT 15 GM TUBE TOP SCH ×2 (07:38→21:00)
[2015-12-30] MEDS: NYSTATIN 100,000 U/GM PWD 15 GM BTL TOPICAL SCH (07:39)
[2015-12-30 08:55] LABS: INTERNATIONAL NORMALIZED RATIO 2.3 RATIO; PROTHROMBIN TIME - PATIENT 25.7 SEC (9.8-11.4)
[2015-12-30 08:56] VITALS: BP 123/84; PULSE 79; RESP 20; TEMP 96.5; O2SAT 97
--- NOTE | 2015-12-30 10:30 | HHI.PR ---
Subjective Remarks Mr. Amado is a 60 year old male with a history of ischemic cardiomyopathy (EF 35-40%), CABG, stent placement who was found on the floor by family members and subsequently brought to the ED for altered mental status Follow-up encephalopathy 12/24/15-patient seen and examined, no acute event overnight and currently afebrile. Patient is currently laying in bed 12/25/15-patient seen and examined; stable and no complaint.Afebrile 12/26/15-patient seen and examined; BP slightly up, denies any chest pain or shortness of breath. No acute event overnight and currently afebrile 12/27/15-patient seen and examined; stable and no complaints. Afebrile in no acute event overnight 12/28/15-patient seen and examined. No change. Vitals stable 12/29/15-patient seen and examined; He is asking me if I could talk to his sister in order for him to be discharged home. No other issues 12/30/15-patient seen and examined. BP well controlled. No other issues Objective Vitals Vital Signs Date Time Temp Pulse Resp B/P Pulse Ox O2 Delivery O2 Flow Rate FiO2 12/30/15 08:56 96.5 79 20 123/84 97 12/30/15 05:43 96.3 84 20 130/76 97 12/30/15 00:22 96.6 69 18 136/88 97 12/29/15 20:00 97.4 74 20 134/81 99 12/29/15 16:00 96.7 89 18 109/65 97 12/29/15 12:00 97.6 75 18 160/95 95 I/O 12/29/15 12/29/15 12/29/15 12/30/15 12/30/15 12/30/15 07:00 15:00 23:00 07:00 15:00 23:00 Intake Total 480 ml 300 ml Output Total 275 ml Balance 205 ml 300 ml Intake Oral 480 ml 300 ml Output Urine Total 275 ml # Voids 3 2 1 # Bowel Movements 1 0 0 Objective Remarks GENERAL: Well-nourished, well-developed patient and laying in bed SKIN: Scaly erythematous flakes on his face EYES: No scleral icterus. No injection or drainage. NECK: Supple, trachea midline. No JVD or lymphadenopathy. CARDIOVASCULAR: Regular rate and rhythm without murmurs RESPIRATORY: Breath sounds equal bilaterally. No wheezing GASTROINTESTINAL: Abdomen soft, non-tender, nondistended. EXTREMITIES: No cyanosis, or edema. s/p right BKA. LLE with 1+ edema, several shallow venous stasis ulcerations on anterior calve, no cellulitis. BACK: Nontender without obvious deformity. No CVA tenderness. Procedures None A/P Problem List: (1) Cellulitis Status: Resolved (2) Ischemic cardiomyopathy Status: Chronic (3) Diabetes mellitus type 2 in obese Status: Chronic (4) S/P BKA (below knee amputation) unilateral Status: Chronic (5) Acute metabolic encephalopathy Status: Resolved (6) Bacteremia Status: Resolved (7) Chronic systolic (congestive) heart failure Status: Chronic (8) Venous stasis ulcer of left lower extremity Status: Chronic (9) CVA (cerebral vascular accident) Status: Chronic (10) Seborrheic dermatitis Status: Resolved Assessment and Plan 60-year-old male with - Sepsis. resolved. - Cellulitis of the left lower ext. resolved. - with staph coag neg bacteremia in 4/4 tubes. Staph haemolyticus in aerobic tubes, with different sensitivities, contaminant likely. - Chronic venous stasis ulcers on the left lower ext. Clinically improved- cellulitis resolved. - wound cultures - MSSA, Serratia marcescens - Completed course of antibiotics - Bilateral CVA:MRI showed acute cortical infarct. MRA of head and neck unremarkable. Neurology following. Was on ASA and Plavix. - Continue Statin, Coumadin and monitor INR/PT keep INR between 2 and 3. - Acute metabolic encephalopathy - baseline neuro status unknown but there is suspicion of chronic cognitive impairment/dementia. -CT head was unremarkable for any acute findings. -Mildly elevated NH3 level. Continue lactulose. Liver sonogram with gallstone and sludge -Continue Seroquel 50 mg at bedtime when necessary on 11/13. - Diabetic mellitus - Glucose was well controlled. We discontinued all insulin. - accu-check. If needed, we will start low long acting insulin and sliding scale insulin. - Acute on CKD stage 4 likely diabetic and from diuretics. Stable and monitor BUN and creatinine. Avoid nephrotoxins. - Hypernatremia -stable - Metabolic acidosis due to CKD ; resolved - Cardiomyopathy/chronic systolic CHF LVEF 35% on echo 03/2015. Compensated. Continue Coreg 12.5mg BID and enalapril. - Cardiology evaluated patient to consider AICD when patient is able to consent. Currently unable to consent. - Hypertension. Normotensive on on Coreg 25 mg twice a day , enalapril 5 mg twice a day. Continue to monitor BP - Physical deconditioning: PT following. Out of bed to chair 3 times a day. Fall precautions -Seborrheic dermatitis: Resolved with betamethasone dipropionate topical - DVT prophylaxis with Coumadin Discharge Planning Awaiting placement to SNF Problem Qualifiers (1) Cellulitis: Jakub Queveod MD Dec 30, 2015 10:30
[2015-12-30] MEDS ORDERED: ONDANSETRON ODT 4 MG TAB PO PRN (11:00)
[2015-12-30 12:40] VITALS: BP 85/58; PULSE 74; RESP 20; TEMP 97.2; O2SAT 98
[2015-12-30 16:56] VITALS: BP 107/62; PULSE 85; RESP 20; TEMP 97.3; O2SAT 98
[2015-12-30 20:00] VITALS: BP 100/67; PULSE 91; RESP 19; TEMP 97.8; O2SAT 98
[2015-12-31] VITALS: BP 104/56; PULSE 74; RESP 20; TEMP 97.6; O2SAT 96
[2015-12-31 06:08] VITALS: BP 132/83; PULSE 81; RESP 20; TEMP 96.2; O2SAT 93
[2015-12-31] MEDS: ISOSORBIDE MONONITRATE 60 MG TAB PO SCH (06:11)
[2015-12-31 07:49] LABS: INTERNATIONAL NORMALIZED RATIO 2.6 RATIO; PROTHROMBIN TIME - PATIENT 28.4 SEC (9.8-11.4)
[2015-12-31 08:42] VITALS: BP 117/72; PULSE 77; RESP 18; TEMP 95.8; O2SAT 97
[2015-12-31] MEDS: NYSTATIN 100,000 U/GM PWD 15 GM BTL TOPICAL SCH ×2 (09:00→22:43)
[2015-12-31] MEDS: BETAMETHASONE DIPROPIONATE 0.05% OINT 15 GM TUBE TOP SCH ×2 (09:00→22:43)
[2015-12-31] MEDS: SODIUM CHLORIDE 0.9% FLUSH 5 ML FLUSH FLUSH SCH ×2 (09:00→21:00)
[2015-12-31] MEDS: ATORVASTATIN 80 MG TAB PO SCH (09:57)
[2015-12-31] MEDS: ENALAPRIL MALEATE 5 MG TAB PO SCH ×2 (09:57→22:43)
[2015-12-31] MEDS: LACTULOSE SYRUP 20 GM/30 ML CUP PO SCH (09:57)
[2015-12-31] MEDS: DOCUSATE SODIUM 50 MG/SENNA 8.6 MG TAB PO SCH ×2 (09:58→22:42)
[2015-12-31] MEDS: CARVEDILOL 12.5 MG TAB PO SCH ×2 (09:58→22:42)
--- NOTE | 2015-12-31 11:26 | HHI.PR ---
Subjective Remarks Mr. Amado is a 60 year old male with a history of ischemic cardiomyopathy (EF 35-40%), CABG, stent placement who was found on the floor by family members and subsequently brought to the ED for altered mental status Follow-up encephalopathy 12/24/15-patient seen and examined, no acute event overnight and currently afebrile. Patient is currently laying in bed 12/25/15-patient seen and examined; stable and no complaint.Afebrile 12/26/15-patient seen and examined; BP slightly up, denies any chest pain or shortness of breath. No acute event overnight and currently afebrile 12/27/15-patient seen and examined; stable and no complaints. Afebrile in no acute event overnight 12/28/15-patient seen and examined. No change. Vitals stable 12/29/15-patient seen and examined; He is asking me if I could talk to his sister in order for him to be discharged home. No other issues 12/30/15-patient seen and examined. BP well controlled. No other issues 12/31/15-patient seen and examined. Resting and no acute event overnight. Currently afebrile. BP in range. Objective Vitals Vital Signs Date Time Temp Pulse Resp B/P Pulse Ox O2 Delivery O2 Flow Rate FiO2 12/31/15 08:42 95.8 77 18 117/72 97 12/31/15 06:08 96.2 81 20 132/83 93 12/31/15 00:00 97.6 74 20 104/56 96 12/30/15 20:00 97.8 91 19 100/67 98 12/30/15 16:56 97.3 85 20 107/62 98 12/30/15 12:40 97.2 74 20 85/58 98 I/O 12/30/15 12/30/15 12/30/15 12/31/15 12/31/15 12/31/15 07:00 15:00 23:00 07:00 15:00 23:00 Intake Total 240 ml Output Total 35 ml 2 ml 200 ml Balance 205 ml -2 ml -200 ml Intake Oral 240 ml Output Urine Total 35 ml 2 ml 200 ml # Voids 2 2 # Bowel Movements 0 0 0 Objective Remarks GENERAL: Well-nourished, well-developed patient and laying in bed SKIN: Scaly erythematous flakes on his face EYES: No scleral icterus. No injection or drainage. NECK: Supple, trachea midline. No JVD or lymphadenopathy. CARDIOVASCULAR: Regular rate and rhythm without murmurs RESPIRATORY: Breath sounds equal bilaterally. No wheezing GASTROINTESTINAL: Abdomen soft, non-tender, nondistended. EXTREMITIES: No cyanosis, or edema. s/p right BKA. LLE with 1+ edema, several shallow venous stasis ulcerations on anterior calve, no cellulitis. BACK: Nontender without obvious deformity. No CVA tenderness. Procedures None A/P Problem List: (1) Cellulitis Status: Resolved (2) Ischemic cardiomyopathy Status: Chronic (3) Diabetes mellitus type 2 in obese Status: Chronic (4) S/P BKA (below knee amputation) unilateral Status: Chronic (5) Acute metabolic encephalopathy Status: Resolved (6) Bacteremia Status: Resolved (7) Chronic systolic (congestive) heart failure Status: Chronic (8) Venous stasis ulcer of left lower extremity Status: Chronic (9) CVA (cerebral vascular accident) Status: Chronic (10) Seborrheic dermatitis Status: Resolved Assessment and Plan 60-year-old male with - Sepsis. resolved. - Cellulitis of the left lower ext. resolved. - with staph coag neg bacteremia in 4/4 tubes. Staph haemolyticus in aerobic tubes, with different sensitivities, contaminant likely. - Chronic venous stasis ulcers on the left lower ext. Clinically improved- cellulitis resolved. - wound cultures - MSSA, Serratia marcescens - Completed course of antibiotics - Bilateral CVA:MRI showed acute cortical infarct. MRA of head and neck unremarkable. Neurology following. Was on ASA and Plavix. - Continue Statin, Coumadin and monitor INR/PT keep INR between 2 and 3. - Acute metabolic encephalopathy - baseline neuro status unknown but there is suspicion of chronic cognitive impairment/dementia. -CT head was unremarkable for any acute findings. -Mildly elevated NH3 level. Continue lactulose. Liver sonogram with gallstone and sludge -Continue Seroquel 50 mg at bedtime when necessary on 11/13. - Diabetic mellitus - Glucose was well controlled. We discontinued all insulin. - accu-check. If needed, we will start low long acting insulin and sliding scale insulin. - Acute on CKD stage 4 likely diabetic and from diuretics. Stable and monitor BUN and creatinine. Avoid nephrotoxins. - Hypernatremia -stable - Metabolic acidosis due to CKD ; resolved - Cardiomyopathy/chronic systolic CHF LVEF 35% on echo 03/2015. Compensated. Continue Coreg 12.5mg BID and enalapril. - Cardiology evaluated patient to consider AICD when patient is able to consent. Currently unable to consent. - Hypertension. Normotensive on on Coreg 25 mg twice a day , enalapril 5 mg twice a day. Continue to monitor BP - Physical deconditioning: PT following. Out of bed to chair 3 times a day. Fall precautions -Seborrheic dermatitis: Resolved with betamethasone dipropionate topical - DVT prophylaxis with Coumadin Discharge Planning Awaiting placement to SNF Problem Qualifiers (1) Cellulitis: Jakub Quevedo MD Dec 31, 2015 11:26
[2015-12-31 12:24] VITALS: BP 149/90; PULSE 78; RESP 18; TEMP 96.8; O2SAT 98
[2015-12-31] MEDS ORDERED: WARFARIN SOD 3 MG TAB PO SCH (16:00)
[2015-12-31 16:38] VITALS: BP 122/77; PULSE 72; RESP 18; TEMP 96; O2SAT 95
[2015-12-31 20:00] VITALS: BP 123/78; PULSE 75; RESP 20; TEMP 96.7; O2SAT 95
[2016-01-01] VITALS: BP 122/64; PULSE 75; RESP 20; TEMP 96.6; O2SAT 97
[2016-01-01] MEDS: ISOSORBIDE MONONITRATE 60 MG TAB PO SCH (06:30)
[2016-01-01 06:32] VITALS: BP 137/86; PULSE 73; RESP 20; TEMP 96.6; O2SAT 95
[2016-01-01 07:26] LABS: PROTHROMBIN TIME - PATIENT 21.5 SEC (9.8-11.4)
[2016-01-01 08:00] VITALS: BP 153/87; PULSE 82; RESP 18; TEMP 98.2; O2SAT 96
[2016-01-01] MEDS: BETAMETHASONE DIPROPIONATE 0.05% OINT 15 GM TUBE TOP SCH ×2 (09:00→21:18)
[2016-01-01] MEDS: SODIUM CHLORIDE 0.9% FLUSH 5 ML FLUSH FLUSH SCH ×2 (09:00→21:00)
[2016-01-01] MEDS: ENALAPRIL MALEATE 5 MG TAB PO SCH ×2 (09:08→21:00)
[2016-01-01] MEDS: LACTULOSE SYRUP 20 GM/30 ML CUP PO SCH (09:08)
[2016-01-01] MEDS: ATORVASTATIN 80 MG TAB PO SCH (09:08)
[2016-01-01] MEDS: DOCUSATE SODIUM 50 MG/SENNA 8.6 MG TAB PO SCH ×2 (09:08→21:18)
[2016-01-01] MEDS: CARVEDILOL 12.5 MG TAB PO SCH ×2 (09:08→21:18)
--- NOTE | 2016-01-01 10:36 | HHI.PR ---
Subjective Remarks Mr. Amado is a 60 year old male with a history of ischemic cardiomyopathy (EF 35-40%), CABG, stent placement who was found on the floor by family members and subsequently brought to the ED for altered mental status Follow-up encephalopathy 12/24/15-patient seen and examined, no acute event overnight and currently afebrile. Patient is currently laying in bed 12/25/15-patient seen and examined; stable and no complaint.Afebrile 12/26/15-patient seen and examined; BP slightly up, denies any chest pain or shortness of breath. No acute event overnight and currently afebrile 12/27/15-patient seen and examined; stable and no complaints. Afebrile in no acute event overnight 12/28/15-patient seen and examined. No change. Vitals stable 12/29/15-patient seen and examined; He is asking me if I could talk to his sister in order for him to be discharged home. No other issues 12/30/15-patient seen and examined. BP well controlled. No other issues 12/31/15-patient seen and examined. Resting and no acute event overnight. Currently afebrile. BP in range. 01/01/16-patient seen and examined. States he feels lousy and would like to be discharged home. Vitals stable. Objective Vitals Vital Signs Date Time Temp Pulse Resp B/P Pulse Ox O2 Delivery O2 Flow Rate FiO2 01/01/16 08:00 98.2 82 18 153/87 96 01/01/16 06:32 96.6 73 20 137/86 95 01/01/16 00:00 96.6 75 20 122/64 97 12/31/15 20:00 96.7 75 20 123/78 95 12/31/15 16:38 96.0 72 18 122/77 95 12/31/15 12:24 96.8 78 18 149/90 98 I/O 12/31/15 12/31/15 12/31/15 01/01/16 01/01/16 01/01/16 07:00 15:00 23:00 07:00 15:00 23:00 Intake Total 240 ml 120 ml Output Total 200 ml 200 ml Balance -200 ml 240 ml 120 ml -200 ml Intake Oral 240 ml 120 ml Output Urine Total 200 ml 200 ml # Voids 2 2 2 # Bowel Movements 0 0 0 Objective Remarks GENERAL: Well-nourished, well-developed patient and laying in bed SKIN: Scaly erythematous flakes on his face EYES: No scleral icterus. No injection or drainage. NECK: Supple, trachea midline. No JVD or lymphadenopathy. CARDIOVASCULAR: Regular rate and rhythm without murmurs RESPIRATORY: Breath sounds equal bilaterally. No wheezing GASTROINTESTINAL: Abdomen soft, non-tender, nondistended. EXTREMITIES: No cyanosis, or edema. s/p right BKA. LLE with 1+ edema, several shallow venous stasis ulcerations on anterior calve, no cellulitis. BACK: Nontender without obvious deformity. No CVA tenderness. Procedures None A/P Problem List: (1) Cellulitis Status: Resolved (2) Ischemic cardiomyopathy Status: Chronic (3) Diabetes mellitus type 2 in obese Status: Chronic (4) S/P BKA (below knee amputation) unilateral Status: Chronic (5) Acute metabolic encephalopathy Status: Resolved (6) Bacteremia Status: Resolved (7) Chronic systolic (congestive) heart failure Status: Chronic (8) Venous stasis ulcer of left lower extremity Status: Chronic (9) CVA (cerebral vascular accident) Status: Chronic (10) Seborrheic dermatitis Status: Resolved Assessment and Plan 60-year-old male with - Sepsis. resolved. - Cellulitis of the left lower ext. resolved. - with staph coag neg bacteremia in 4/4 tubes. Staph haemolyticus in aerobic tubes, with different sensitivities, contaminant likely. - Chronic venous stasis ulcers on the left lower ext. Clinically improved- cellulitis resolved. - wound cultures - MSSA, Serratia marcescens - Completed course of antibiotics - Bilateral CVA:MRI showed acute cortical infarct. MRA of head and neck unremarkable. Neurology following. Was on ASA and Plavix. - Continue Statin, Coumadin and monitor INR/PT keep INR between 2 and 3. - Acute metabolic encephalopathy - baseline neuro status unknown but there is suspicion of chronic cognitive impairment/dementia. -CT head was unremarkable for any acute findings. -Mildly elevated NH3 level. Continue lactulose. Liver sonogram with gallstone and sludge -Continue Seroquel 50 mg at bedtime when necessary on 11/13. - Diabetic mellitus - Glucose was well controlled. We discontinued all insulin. - accu-check. If needed, we will start low long acting insulin and sliding scale insulin. - Acute on CKD stage 4 likely diabetic and from diuretics. Stable and monitor BUN and creatinine. Avoid nephrotoxins. - Hypernatremia -stable - Metabolic acidosis due to CKD ; resolved - Cardiomyopathy/chronic systolic CHF LVEF 35% on echo 03/2015. Compensated. Continue Coreg 12.5mg BID and enalapril. - Cardiology evaluated patient to consider AICD when patient is able to consent. Currently unable to consent. - Hypertension. Normotensive on on Coreg 25 mg twice a day , enalapril 5 mg twice a day. Continue to monitor BP - Physical deconditioning: PT following. Out of bed to chair 3 times a day. Fall precautions -Seborrheic dermatitis: Resolved with betamethasone dipropionate topical - DVT prophylaxis with Coumadin Discharge Planning Awaiting placement to SNF Problem Qualifiers (1) Cellulitis: Jakub Quevedo MD Jan 01, 2016 10:36
[2016-01-01 12:00] VITALS: BP 131/79; PULSE 86; RESP 18; TEMP 97.9; O2SAT 96
[2016-01-01 16:00] VITALS: BP 137/68; PULSE 68; RESP 17; TEMP 97.8; O2SAT 96
[2016-01-01] MEDS: WARFARIN SOD 4 MG TAB PO SCH (17:01)
[2016-01-01 20:56] VITALS: BP 103/66; PULSE 80; RESP 20; TEMP 97.4; O2SAT 96
[2016-01-02 00:42] VITALS: BP 108/64; PULSE 72; RESP 20; TEMP 97.9; O2SAT 95
[2016-01-02 04:53] VITALS: BP 158/91; PULSE 75; RESP 20; TEMP 96.7; O2SAT 98
[2016-01-02] MEDS: ISOSORBIDE MONONITRATE 60 MG TAB PO SCH (06:01)
--- NOTE | 2016-01-02 07:43 | HHI.PR ---
Subjective Remarks Mr. Amado is a 60 year old male with a history of ischemic cardiomyopathy (EF 35-40%), CABG, stent placement who was found on the floor by family members and subsequently brought to the ED for altered mental status Follow-up encephalopathy 12/24/15-patient seen and examined, no acute event overnight and currently afebrile. Patient is currently laying in bed 12/25/15-patient seen and examined; stable and no complaint.Afebrile 12/26/15-patient seen and examined; BP slightly up, denies any chest pain or shortness of breath. No acute event overnight and currently afebrile 12/27/15-patient seen and examined; stable and no complaints. Afebrile in no acute event overnight 12/28/15-patient seen and examined. No change. Vitals stable 12/29/15-patient seen and examined; He is asking me if I could talk to his sister in order for him to be discharged home. No other issues 12/30/15-patient seen and examined. BP well controlled. No other issues 12/31/15-patient seen and examined. Resting and no acute event overnight. Currently afebrile. BP in range. 01/01/16-patient seen and examined. States he feels lousy and would like to be discharged home. Vitals stable. 01/02/16-patient seen and examined, stable in no acute event overnight. Afebrile and denies any chest pain or shortness of breath. Objective Vitals Vital Signs Date Time Temp Pulse Resp B/P Pulse Ox O2 Delivery O2 Flow Rate FiO2 01/02/16 04:53 96.7 75 20 158/91 98 01/02/16 00:42 97.9 72 20 108/64 95 01/01/16 20:56 97.4 80 20 103/66 96 01/01/16 16:00 97.8 68 17 137/68 96 01/01/16 12:00 97.9 86 18 131/79 96 01/01/16 08:00 98.2 82 18 153/87 96 I/O 01/01/16 01/01/16 01/01/16 01/02/16 01/02/16 01/02/16 07:00 15:00 23:00 07:00 15:00 23:00 Intake Total 120 ml Output Total 200 ml 200 ml Balance -200 ml -200 ml 120 ml Intake Oral 120 ml Output Urine Total 200 ml 200 ml # Voids 0 # Bowel Movements 0 1 Objective Remarks GENERAL: Well-nourished, well-developed patient and laying in bed SKIN: Scaly erythematous flakes on his face EYES: No scleral icterus. No injection or drainage. NECK: Supple, trachea midline. No JVD or lymphadenopathy. CARDIOVASCULAR: Regular rate and rhythm without murmurs RESPIRATORY: Breath sounds equal bilaterally. No wheezing GASTROINTESTINAL: Abdomen soft, non-tender, nondistended. EXTREMITIES: No cyanosis, or edema. s/p right BKA. LLE with 1+ edema, several shallow venous stasis ulcerations on anterior calve, no cellulitis. BACK: Nontender without obvious deformity. No CVA tenderness. Procedures None A/P Problem List: (1) Cellulitis Status: Resolved (2) Ischemic cardiomyopathy Status: Chronic (3) Diabetes mellitus type 2 in obese Status: Chronic (4) S/P BKA (below knee amputation) unilateral Status: Chronic (5) Acute metabolic encephalopathy Status: Resolved (6) Bacteremia Status: Resolved (7) Chronic systolic (congestive) heart failure Status: Chronic (8) Venous stasis ulcer of left lower extremity Status: Chronic (9) CVA (cerebral vascular accident) Status: Chronic (10) Seborrheic dermatitis Status: Resolved Assessment and Plan 60-year-old male with - Sepsis. resolved. - Cellulitis of the left lower ext. resolved. - with staph coag neg bacteremia in 4/4 tubes. Staph haemolyticus in aerobic tubes, with different sensitivities, contaminant likely. - Chronic venous stasis ulcers on the left lower ext. Clinically improved- cellulitis resolved. - wound cultures - MSSA, Serratia marcescens - Completed course of antibiotics - Bilateral CVA:MRI showed acute cortical infarct. MRA of head and neck unremarkable. Neurology following. Was on ASA and Plavix. - Continue Statin, Coumadin and monitor INR/PT keep INR between 2 and 3. - Acute metabolic encephalopathy - baseline neuro status unknown but there is suspicion of chronic cognitive impairment/dementia. -CT head was unremarkable for any acute findings. -Mildly elevated NH3 level. Continue lactulose. Liver sonogram with gallstone and sludge -Continue Seroquel 50 mg at bedtime when necessary on 7/16. - Diabetic mellitus - Glucose was well controlled. We discontinued all insulin. - accu-check. If needed, we will start low long acting insulin and sliding scale insulin. - Acute on CKD stage 4 likely diabetic and from diuretics. Stable and monitor BUN and creatinine. Avoid nephrotoxins. - Hypernatremia -stable - Metabolic acidosis due to CKD ; resolved - Cardiomyopathy/chronic systolic CHF LVEF 35% on echo 03/2015. Compensated. Continue Coreg 12.5mg BID and enalapril. - Cardiology evaluated patient to consider AICD when patient is able to consent. Currently unable to consent. - Hypertension. Normotensive on on Coreg 25 mg twice a day , enalapril 5 mg twice a day. Continue to monitor BP - Physical deconditioning: PT following. Out of bed to chair 3 times a day. Fall precautions -Seborrheic dermatitis: Resolved with betamethasone dipropionate topical - DVT prophylaxis with Coumadin Discharge Planning Awaiting placement to SNF Problem Qualifiers (1) Cellulitis: Jakub Quevedo MD Jan 02, 2016 07:43
[2016-01-02 08:00] VITALS: BP 135/82; PULSE 71; RESP 17; TEMP 97.5; O2SAT 96
[2016-01-02 08:20] LABS: PROTHROMBIN TIME - PATIENT 22.1 SEC (9.8-11.4)
[2016-01-02] MEDS: DOCUSATE SODIUM 50 MG/SENNA 8.6 MG TAB PO SCH ×2 (09:00→21:25)
[2016-01-02] MEDS: SODIUM CHLORIDE 0.9% FLUSH 5 ML FLUSH FLUSH SCH ×2 (09:00→21:00)
[2016-01-02] MEDS: LACTULOSE SYRUP 20 GM/30 ML CUP PO SCH (09:00)
[2016-01-02] MEDS: ATORVASTATIN 80 MG TAB PO SCH (09:28)
[2016-01-02] MEDS: ENALAPRIL MALEATE 5 MG TAB PO SCH ×2 (09:28→21:25)
[2016-01-02] MEDS: NYSTATIN 100,000 U/GM PWD 15 GM BTL TOPICAL SCH (09:28)
[2016-01-02] MEDS: CARVEDILOL 12.5 MG TAB PO SCH ×2 (09:28→21:25)
[2016-01-02] MEDS: BETAMETHASONE DIPROPIONATE 0.05% OINT 15 GM TUBE TOP SCH ×2 (09:29→21:26)
[2016-01-02 12:00] VITALS: BP 118/69; PULSE 74; RESP 19; TEMP 97.7; O2SAT 95
[2016-01-02] MEDS: WARFARIN SOD 4 MG TAB PO SCH (15:19)
[2016-01-02 16:00] VITALS: BP 113/81; PULSE 77; RESP 19; TEMP 95.7; O2SAT 98
[2016-01-02 20:00] VITALS: BP 120/72; PULSE 86; RESP 18; TEMP 97; O2SAT 97
[2016-01-03 00:20] VITALS: BP 141/93; PULSE 84; RESP 20; TEMP 98.1; O2SAT 92
[2016-01-03 04:00] VITALS: BP 134/85; PULSE 83; RESP 20; TEMP 98.2; O2SAT 95
[2016-01-03] MEDS: ISOSORBIDE MONONITRATE 60 MG TAB PO SCH (06:31)
--- NOTE | 2016-01-03 06:41 | HHI.PR ---
Subjective Remarks Mr. Amado is a 60 year old male with a history of ischemic cardiomyopathy (EF 35-40%), CABG, stent placement who was found on the floor by family members and subsequently brought to the ED for altered mental status Follow-up encephalopathy 12/24/15-patient seen and examined, no acute event overnight and currently afebrile. Patient is currently laying in bed 12/25/15-patient seen and examined; stable and no complaint.Afebrile 12/26/15-patient seen and examined; BP slightly up, denies any chest pain or shortness of breath. No acute event overnight and currently afebrile 12/27/15-patient seen and examined; stable and no complaints. Afebrile in no acute event overnight 12/28/15-patient seen and examined. No change. Vitals stable 12/29/15-patient seen and examined; He is asking me if I could talk to his sister in order for him to be discharged home. No other issues 12/30/15-patient seen and examined. BP well controlled. No other issues 12/31/15-patient seen and examined. Resting and no acute event overnight. Currently afebrile. BP in range. 01/01/16-patient seen and examined. States he feels lousy and would like to be discharged home. Vitals stable. 01/02/16-patient seen and examined, stable in no acute event overnight. Afebrile and denies any chest pain or shortness of breath. 01/03/16-patient seen and examined. No complaint and no change. Stable and afebrile. Objective Vitals Vital Signs Date Time Temp Pulse Resp B/P Pulse Ox O2 Delivery O2 Flow Rate FiO2 01/03/16 04:00 98.2 83 20 134/85 95 01/03/16 00:20 98.1 84 20 141/93 92 01/02/16 20:00 97.0 86 18 120/72 97 01/02/16 20:00 97.0 86 18 120/72 97 01/02/16 16:00 95.7 77 19 113/81 98 01/02/16 12:00 97.7 74 19 118/69 95 01/02/16 08:00 97.5 71 17 135/82 96 I/O 9/3/16 9/07/1401/02/16 01/03/16 01/03/16 01/03/16 07:00 15:00 23:00 07:00 15:00 23:00 Intake Total 120 ml 480 ml 240 ml 80 ml Output Total 275 ml Balance 120 ml 480 ml 240 ml -195 ml Intake Oral 120 ml 480 ml 240 ml 80 ml Output Urine Total 275 ml # Voids 0 2 1 # Bowel Movements 1 Objective Remarks GENERAL: Well-nourished, well-developed patient and laying in bed SKIN: Scaly erythematous flakes on his face EYES: No scleral icterus. No injection or drainage. NECK: Supple, trachea midline. No JVD or lymphadenopathy. CARDIOVASCULAR: Regular rate and rhythm without murmurs RESPIRATORY: Breath sounds equal bilaterally. No wheezing GASTROINTESTINAL: Abdomen soft, non-tender, nondistended. EXTREMITIES: No cyanosis, or edema. s/p right BKA. LLE with 1+ edema, several shallow venous stasis ulcerations on anterior calve, no cellulitis. BACK: Nontender without obvious deformity. No CVA tenderness. Procedures None A/P Problem List: (1) Cellulitis Status: Resolved (2) Ischemic cardiomyopathy Status: Chronic (3) Diabetes mellitus type 2 in obese Status: Chronic (4) S/P BKA (below knee amputation) unilateral Status: Chronic (5) Acute metabolic encephalopathy Status: Resolved (6) Bacteremia Status: Resolved (7) Chronic systolic (congestive) heart failure Status: Chronic (8) Venous stasis ulcer of left lower extremity Status: Chronic (9) CVA (cerebral vascular accident) Status: Chronic (10) Seborrheic dermatitis Status: Resolved Assessment and Plan 60-year-old male with - Sepsis. resolved. - Cellulitis of the left lower ext. resolved. - with staph coag neg bacteremia in 4/4 tubes. Staph haemolyticus in aerobic tubes, with different sensitivities, contaminant likely. - Chronic venous stasis ulcers on the left lower ext. Clinically improved- cellulitis resolved. - wound cultures - MSSA, Serratia marcescens - Completed course of antibiotics - Bilateral CVA:MRI showed acute cortical infarct. MRA of head and neck unremarkable. Neurology following. Was on ASA and Plavix. - Continue Statin, Coumadin and monitor INR/PT keep INR between 2 and 3. - Acute metabolic encephalopathy - baseline neuro status unknown but there is suspicion of chronic cognitive impairment/dementia. -CT head was unremarkable for any acute findings. -Mildly elevated NH3 level. Continue lactulose. Liver sonogram with gallstone and sludge -Continue Seroquel 50 mg at bedtime when necessary on 11/13. - Diabetic mellitus - Glucose was well controlled. We discontinued all insulin. - accu-check. If needed, we will start low long acting insulin and sliding scale insulin. - Acute on CKD stage 4 likely diabetic and from diuretics. Stable and monitor BUN and creatinine. Avoid nephrotoxins. - Hypernatremia -stable - Metabolic acidosis due to CKD ; resolved - Cardiomyopathy/chronic systolic CHF LVEF 35% on echo 03/2015. Compensated. Continue Coreg 12.5mg BID and enalapril. - Cardiology evaluated patient to consider AICD when patient is able to consent. Currently unable to consent. - Hypertension. Normotensive on on Coreg 25 mg twice a day , enalapril 5 mg twice a day. Continue to monitor BP - Physical deconditioning: PT following. Out of bed to chair 3 times a day. Fall precautions -Seborrheic dermatitis: Resolved with betamethasone dipropionate topical - DVT prophylaxis with Coumadin Discharge Planning Awaiting placement to SNF Problem Qualifiers (1) Cellulitis: Jakub Quevedo MD Jan 03, 2016 06:41
[2016-01-03 07:26] LABS: PROTHROMBIN TIME - PATIENT 21.1 SEC (9.8-11.4)
[2016-01-03] MEDS: CARVEDILOL 12.5 MG TAB PO SCH ×2 (08:51→20:43)
[2016-01-03] MEDS: DOCUSATE SODIUM 50 MG/SENNA 8.6 MG TAB PO SCH ×2 (08:51→20:43)
[2016-01-03] MEDS: SODIUM CHLORIDE 0.9% FLUSH 5 ML FLUSH FLUSH SCH ×2 (08:51→20:43)
[2016-01-03] MEDS: ENALAPRIL MALEATE 5 MG TAB PO SCH ×2 (08:51→20:43)
[2016-01-03] MEDS: ATORVASTATIN 80 MG TAB PO SCH (08:51)
[2016-01-03] MEDS: LACTULOSE SYRUP 20 GM/30 ML CUP PO SCH (08:51)
[2016-01-03] MEDS: NYSTATIN 100,000 U/GM PWD 15 GM BTL TOPICAL SCH (08:52)
[2016-01-03] MEDS: BETAMETHASONE DIPROPIONATE 0.05% OINT 15 GM TUBE TOP SCH ×2 (08:52→20:44)
[2016-01-03 09:54] VITALS: BP 95/56; PULSE 74; RESP 20; TEMP 96.7; O2SAT 95
[2016-01-03 13:25] VITALS: BP 105/69; PULSE 79; RESP 20; TEMP 95.7
[2016-01-03] MEDS: WARFARIN SOD 4 MG TAB PO SCH (16:04)
[2016-01-03 16:23] VITALS: BP 129/82; PULSE 72; RESP 17; TEMP 97.9; O2SAT 95
[2016-01-03 20:00] VITALS: BP 105/67; PULSE 73; RESP 20; TEMP 96.5; O2SAT 97
[2016-01-04] VITALS: BP 137/69; PULSE 71; RESP 20; TEMP 96.1; O2SAT 96
[2016-01-04 04:00] VITALS: BP 158/95; PULSE 70; RESP 20; TEMP 95.9; O2SAT 97
[2016-01-04] MEDS: ISOSORBIDE MONONITRATE 60 MG TAB PO SCH (05:32)
[2016-01-04 08:07] VITALS: BP 134/84; PULSE 73; RESP 17; TEMP 95.7; O2SAT 98
[2016-01-04] MEDS: LACTULOSE SYRUP 20 GM/30 ML CUP PO SCH (08:30)
[2016-01-04] MEDS: ENALAPRIL MALEATE 5 MG TAB PO SCH ×2 (08:30→21:19)
[2016-01-04] MEDS: CARVEDILOL 12.5 MG TAB PO SCH ×2 (08:30→21:19)
[2016-01-04] MEDS: SODIUM CHLORIDE 0.9% FLUSH 5 ML FLUSH FLUSH SCH ×2 (08:30→21:00)
[2016-01-04] MEDS: ATORVASTATIN 80 MG TAB PO SCH (08:30)
[2016-01-04] MEDS: DOCUSATE SODIUM 50 MG/SENNA 8.6 MG TAB PO SCH ×2 (08:30→21:19)
[2016-01-04] MEDS: NYSTATIN 100,000 U/GM PWD 15 GM BTL TOPICAL SCH (08:31)
[2016-01-04] MEDS: BETAMETHASONE DIPROPIONATE 0.05% OINT 15 GM TUBE TOP SCH ×2 (08:32→21:20)
[2016-01-04 08:39] LABS: AUTOMATED NEUTROPHIL # 6.8 TH/MM3 (1.8-7.7); BASOPHIL % 0.4 % (0.0-2.0); EOSINOPHIL # 0.3 TH/MM3 (0-0.4); EOSINOPHIL % 3.5 % (0.0-4.0); HEMATOCRIT 34.2 % (39.0-51.0); HEMO FLAGS DIFF FINAL; LYMPH % 15.4 % (9.0-44.0); LYMPHOCYTE # 1.4 TH/MM3 (1.0-4.8); MEAN CELL VOLUME 80.2 FL (80.0-100.0); MEAN CORPUSCULAR HEMOGLOBIN 27.1 PG (27.0-34.0); MEAN CORPUSCULAR HGB CONC 33.8 % (32.0-36.0); MONO % 8.5 % (0.0-8.0); NEUT % 72.2 % (16.0-70.0); PLATELET COUNT 176 TH/MM3 (150-450); RED BLOOD COUNT 4.27 MIL/MM3 (4.50-5.90); RED CELL DISTRIBUTION WIDTH 17.4 % (11.6-17.2); WHITE BLOOD COUNT 9.4 TH/MM3 (4.0-11.0)
[2016-01-04 08:48] LABS: INTERNATIONAL NORMALIZED RATIO 1.5 RATIO; PROTHROMBIN TIME - PATIENT 15.8 SEC (9.8-11.4)
[2016-01-04 09:03] LABS: BICARBONATE 23.3 MEQ/L (21.0-32.0); POTASSIUM 4.2 MEQ/L (3.5-5.1)
--- NOTE | 2016-01-04 10:40 | HHI.PR ---
Subjective Remarks Seen today in follow-up for discharge planning. Patient status post cerebrovascular accident and with significant cognitive impairment. He is unable to go home and we're awaiting placement plans for this patient. Objective Vitals Vital Signs Date Time Temp Pulse Resp B/P Pulse Ox O2 Delivery O2 Flow Rate FiO2 01/04/16 08:07 95.7 73 17 134/84 98 01/04/16 04:00 95.9 70 20 158/95 97 01/04/16 00:00 96.1 71 20 137/69 96 01/03/16 20:00 96.5 73 20 105/67 97 01/03/16 16:23 97.9 72 17 129/82 95 01/03/16 13:25 95.7 79 20 105/69 I/O 01/03/16 01/03/16 01/03/16 01/04/16 01/04/16 01/04/16 07:00 15:00 23:00 07:00 15:00 23:00 Intake Total 80 ml 960 ml 120 ml 0 ml Output Total 275 ml 400 ml 0 ml Balance -195 ml 960 ml -280 ml 0 ml Intake Oral 80 ml 960 ml 120 ml 0 ml Output Urine Total 275 ml 400 ml 0 ml # Bowel Movements 0 Result Diagram: 01/04/1681601/04/16816 Objective Remarks GENERAL: This is a well-nourished, well-developed patient, in no apparent distress. CARDIOVASCULAR: Regular rate and rhythm without murmurs, gallops, or rubs. RESPIRATORY: Clear to auscultation. Breath sounds equal bilaterally. No wheezes , rales, or rhonchi. GASTROINTESTINAL: Abdomen soft, non-tender, nondistended. Normal active bowel sounds MUSCULOSKELETAL: Extremities without clubbing, cyanosis, or edema. NEURO: Alert, Procedures None A/P Assessment and Plan Patient is a 60-year-old gentleman was admitted to the hospital 10/14 with acute cortical infarct. 1. Acute cortical infarct, continue Coumadin. INR 1.5 today. Patient has been dismissed from physical therapy as he has reached maximum benefit 2. Hypertension, continue enalapril and Carbo Dial, currently controlled 3. Ischemic cardiomyopathy with an EF of 35%. Continue Coreg, imdur and enalapril, follow fluid balance. Lasix as needed. Consider AICD if patient able to consent (currently unable) 4. CKD, at baseline, continue to avoid nephrotoxic drugs 5. Diabetes mellitus type 2, currently controlled on diet, and globin A1c 6.9 Med list reviewed Discharge Planning Patient will need long-term care, case management aware barriers to discharge Trisha Lim MD Jan 04, 2016 10:40
[2016-01-04 12:23] VITALS: BP 135/80; PULSE 74; RESP 16; TEMP 96.7; O2SAT 96
[2016-01-04] MEDS ORDERED: WARFARIN SOD 6 MG TAB PO SCH (16:00)
[2016-01-04 16:06] VITALS: BP 124/79; PULSE 75; RESP 14; TEMP 96.9; O2SAT 98
[2016-01-04 19:56] VITALS: BP 133/74; PULSE 84; RESP 18; TEMP 97.6; O2SAT 95
[2016-01-05] VITALS (8 sets, daily range): BP systolic 117–152; BP diastolic 72–93; PULSE 72–94; RESP 17–20; TEMP 96–97.5; O2SAT 94–100
[2016-01-05] MEDS: ISOSORBIDE MONONITRATE 60 MG TAB PO SCH ×2 (06:42→06:45)
[2016-01-05] MEDS: NYSTATIN 100,000 U/GM PWD 15 GM BTL TOPICAL SCH (09:00)
[2016-01-05] MEDS: SODIUM CHLORIDE 0.9% FLUSH 5 ML FLUSH FLUSH SCH ×2 (09:00→21:00)
[2016-01-05] MEDS: DOCUSATE SODIUM 50 MG/SENNA 8.6 MG TAB PO SCH ×2 (09:00→22:56)
[2016-01-05] MEDS: BETAMETHASONE DIPROPIONATE 0.05% OINT 15 GM TUBE TOP SCH ×2 (09:00→22:57)
[2016-01-05 09:05] LABS: INTERNATIONAL NORMALIZED RATIO 1.5 RATIO; PROTHROMBIN TIME - PATIENT 16.1 SEC (9.8-11.4)
[2016-01-05] MEDS: CARVEDILOL 12.5 MG TAB PO SCH ×2 (09:26→22:56)
[2016-01-05] MEDS: ATORVASTATIN 80 MG TAB PO SCH (09:26)
[2016-01-05] MEDS: LACTULOSE SYRUP 20 GM/30 ML CUP PO SCH (09:26)
[2016-01-05] MEDS: ENALAPRIL MALEATE 5 MG TAB PO SCH ×2 (09:26→22:56)
--- NOTE | 2016-01-05 12:02 | HHI.PR ---
Subjective Remarks Follow up for CVA, awaiting safe discharge plan arrangements. The patient is seen sleeping in bed today, easily awakens to voice, however not talkative with me today. Denies any medical complaints by shaking his head "no". RN reports the patient has been grumpy lately, has stated that he's tired of being in the hospital. Otherwise no acute events. Vital signs stable. He's eating and drinking well. Objective Vitals Vital Signs Date Time Temp Pulse Resp B/P Pulse Ox O2 Delivery O2 Flow Rate FiO2 01/05/16 08:00 97.4 79 18 131/77 100 01/05/16 04:00 96.9 72 18 152/93 97 01/05/16 00:00 96.7 84 18 133/80 98 01/04/16 19:56 97.6 84 18 133/74 95 01/04/16 16:06 96.9 75 14 124/79 98 01/04/16 12:23 96.7 74 16 135/80 96 I/O 01/04/16 01/04/16 01/04/16 01/05/16 01/05/16 01/05/16 07:00 15:00 23:00 07:00 15:00 23:00 Intake Total 0 ml 1100 ml 680 ml 60 ml Output Total 0 ml Balance 0 ml 1100 ml 680 ml 60 ml Intake Oral 0 ml 1100 ml 680 ml 60 ml Output Urine Total 0 ml # Voids 2 2 1 # Bowel Movements 0 0 0 Result Diagram: 01/04/16 0817 01/04/16 0817 Imaging Last Impressions Chest X-Ray 11/06/15 0000 Signed Impressions: Service Date/Time: Friday, November 06, 2015 11:35 - CONCLUSION: Compensated cardiomegaly, history of bypass otherwise negative. Superior most sternal wire is fractured. Didier Clay MD FACR Liver Ultrasound 10/30/15 0000 Signed Impressions: Service Date/Time: Friday, October 30, 2015 17:29 - CONCLUSION: 1. Cholelithiasis with probable gallbladder sludge and mild gallbladder distention. 2. Splenomegaly. Sameer Alexandra MD Modified Barium Swallow 10/27/15 0000 Signed Impressions: Service Date/Time: Tuesday, October 27, 2015 00:00 - CONCLUSION: Negative for penetration or aspiration. Please see speech pathology report. Tai Cohen MD Brain MRI 10/22/15 0000 Signed Impressions: Service Date/Time: September 14:38 - CONCLUSION: 1. No significant interval change is identified. There is stable restricted diffusion in the left basal ganglia representing an area of recent ischemia. There are no findings to indicate hemorrhagic transformation. The previously documented signal change within the right cerebral peduncle has nearly normalized. 2. Stable chronic white matter changes. Camacho Culp MD Neck Magnetic Resonance Angiography 10/21/15 0000 Signed Impressions: Service Date/Time: Wednesday, October 21, 2015 12:52 - CONCLUSION: . 1. Unremarkable MRA of the carotid arteries bilaterally. 2. Nonspecific possible collateral vessels in the soft tissues posterior to the right vertebral artery. The right verbal artery appears to be patent. If clinically indicated, a CTA could be performed for further evaluation. Abiodun Hall MD Head Magnetic Resonance Angiography 10/21/15 Signed Impressions: Service Date/Time: Wednesday, October 21, 2015 12:52 - CONCLUSION: Unremarkable MRA of the brain. Abiodun Hall MD Head CT 10/15/152116 Signed Impressions: Service Date/Time: September 21:47 - CONCLUSION: 1. No evidence of hemorrhage or mass effect. 2. Lacunar infarct right thalamus, left basal ganglia and adjacent to the left lateral ventricular body. 3. No skull fracture seen. Daryl Varner MD Objective Remarks GENERAL: Well-nourished, well-developed elderly male patient in [facility]. SKIN: Warm and dry. No rash. HEAD: Normocephalic. Atraumatic. CARDIOVASCULAR: Regular rate and rhythm. S1, S2 noted. No murmur appreciated. RESPIRATORY: No accessory muscle use. Clear to auscultation. Breath sounds equal bilaterally. GASTROINTESTINAL: Abdomen soft, non-tender, nondistended. Normoactive bowel sounds x4. MUSCULOSKELETAL: Chronic Right BKA. Extremities without clubbing, cyanosis, or edema. NEUROLOGICAL: Awake and alert. No obvious cranial nerve deficits. Motor grossly within normal limits. Moves all extremities spontaneously. PSYCHIATRIC: Appropriate mood and affect; insight and judgment limited. Procedures None Medications and IVs Current Medications Medications (Trade) Dose Ordered Sig/Estuardo Route Start Time Stop Time Status Last Admin (NS Flush) 2 ml UNSCH PRN FLUSH 10/15/15 23:30 (NS Flush) 2 ml BID FLUSH 10/16/15 09:00 12/30/15 07:34 (Lipitor) 80 mg DAILY PO 10/16/15 09:00 01/05/16 09:26 Isosorbide Mononitrate 60 mg 60 mg DAILY@07 PO 10/16/15 07:00 01/04/16 05:32 (Coumadin Consult Pharmacy) 0 ml @ 0 mls/hr UNSCH XX 10/30/15 05:30 (Tylenol) 650 mg Q4H PRN PO 10/30/15 05:30 (Tums Chew) 1,000 mg TID PRN CHEW 10/30/15 05:30 (Catapres) 0.1 mg Q6H PRN PO 10/30/15 05:30 11/07/15 06:04 (Mycostatin Powder) 1 applic DAILY TOPICAL 10/31/15 18:00 01/05/16 09:00 (Haydee-Colace) 2 tab BID PO 11/03/15 09:00 01/05/16 09:00 (Lactulose Liq) 30 ml DAILY PO 11/04/15 09:00 01/05/16 09:26 (Diprosone 0.05% Ointment) 1 applic BID TOP 12/08/15 12:30 01/05/16 09:00 (Coreg) 25 mg BID PO 12/12/15 21:00 01/05/16 09:26 (Miralax) 17 gm DAILY PRN PO 12/14/15 17:00 (Pill Splitter) 1 ea UNSCH PRN OTHER 12/15/15 09:15 (Vasotec) 5 mg BID PO 12/26/15 21:00 01/05/16 09:26 (Zofran Odt) 4 mg Q4H PRN PO 12/30/15 11:00 (Coumadin) 4 mg DAILY@16 PO 01/06/16 16:00 (Coumadin) 6 mg ONCE PO 01/05/16 16:00 01/05/16 21:00 Urinary Catheter: No A/P Problem List: (1) Cellulitis Status: Resolved (2) Ischemic cardiomyopathy Status: Chronic (3) Diabetes mellitus type 2 in obese Status: Chronic (4) S/P BKA (below knee amputation) unilateral Status: Chronic (5) Acute metabolic encephalopathy Status: Resolved (6) Bacteremia Status: Resolved (7) Chronic systolic (congestive) heart failure Status: Chronic (8) Venous stasis ulcer of left lower extremity Status: Chronic (9) CVA (cerebral vascular accident) Status: Chronic (10) Seborrheic dermatitis Status: Resolved Assessment and Plan 60-year-old male with: - Bilateral CVA: MRI 10/20/15 showed Acute Cortical Infarct. MRA of head and neck unremarkable. Neurology following. Continue Statin and Coumadin. Keep INR between 2-3, pharmacy consulted for assistance with management. - Sepsis secondary to cellulitis and bacteremia. S/p IV abx. Repeat blood cultures from 10/15 and 10/30 with no growth. Resolved. - Cellulitis of LLE: Chronic venous stasis ulcers on LLE. Wound cultures MSSA, Serratia marcescens. Dr. Messina/ID ff; was on Keflex and Cipro for 10 days, completed 10/26. Resolved. - Acute metabolic encephalopathy - baseline neuro status unknown but there is suspicion of chronic cognitive impairment/dementia. CT head negative. Mildly elevated NH3 level, Continue lactulose. Improving behavior discontinued restraints since 11/03/15. Resolved. - Mild elevation of troponin without upward trend in the setting of CKD/CHF - No chest pain. Likely due to CKD/CHF. 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 Chronic, stable. Avoid nephrotoxins. - Hypernatremia - Na 147 upon arrival. Na 143 now, Resolved. - Metabolic acidosis due to CKD ; resolved - Cardiomyopathy/chronic systolic CHF: LVEF 35% on echo 03/2015. Compensated. Ct Coreg 25mg BID and enalapril. Lasix as needed. Cardiology considered AICD when patient is able to consent (currently unable). - Hypertension. Chronic, controlled. Continue enalapril and carvedilol - Diabetic mellitus - Glucose was well controlled. Discontinued all insulin. Diabetic diet. Accu-checks discontinued as patient's blood sugar well controlled , Hgb A1c 6.9. - PAD -stable. Continue above meds - Physical deconditioning: PT following. Out of bed to chair 3 times a day. Fall precautions. Needs rehab placement. - DVT prophylaxis with Coumadin Discharge Planning Case management assisting with discharge plans, needs placement. Problem Qualifiers (1) Cellulitis: Rosaura Patel PA-C Jan 05, 2016 12:02 Trisha Lim MD Jan 05, 2016 13:27
--- NOTE | 2016-01-05 14:00 | HHI.PR ---
Addendum To [facility] Progress Not Reason for addendum: Additonal documentation (1 discuss with case management with family (Mable/Tigist at [phone]) I did discuss the severity of his debilitation from the stroke and the need for skilled long-term care. The family is unwilling to agree to this he may be a candidate for discharge to hospice care.) Trisha Lim MD Jan 05, 2016 13:59
[2016-01-05] MEDS ORDERED: WARFARIN SOD 6 MG TAB PO SCH (16:00)
[2016-01-05] MEDS ORDERED: WARFARIN SOD 4 MG TAB PO SCH (16:00)
[2016-01-06 04:53] VITALS: BP 129/93; PULSE 85; RESP 18; TEMP 96.6; O2SAT 97
[2016-01-06] MEDS: ISOSORBIDE MONONITRATE 60 MG TAB PO SCH (06:33)
[2016-01-06 08:00] VITALS: BP 112/72; PULSE 79; RESP 18; TEMP 96.2; O2SAT 97
[2016-01-06] MEDS: SODIUM CHLORIDE 0.9% FLUSH 5 ML FLUSH FLUSH SCH ×2 (09:00→21:00)
[2016-01-06] MEDS: NYSTATIN 100,000 U/GM PWD 15 GM BTL TOPICAL SCH (09:00)
[2016-01-06] MEDS: BETAMETHASONE DIPROPIONATE 0.05% OINT 15 GM TUBE TOP SCH (09:00)
[2016-01-06] MEDS: DOCUSATE SODIUM 50 MG/SENNA 8.6 MG TAB PO SCH ×2 (09:57→21:00)
[2016-01-06] MEDS: LACTULOSE SYRUP 20 GM/30 ML CUP PO SCH (09:57)
[2016-01-06] MEDS: ENALAPRIL MALEATE 5 MG TAB PO SCH (09:57)
[2016-01-06] MEDS: ATORVASTATIN 80 MG TAB PO SCH (09:57)
[2016-01-06] MEDS: CARVEDILOL 12.5 MG TAB PO SCH (09:57)
[2016-01-06 11:07] LABS: INTERNATIONAL NORMALIZED RATIO 1.9 RATIO; PROTHROMBIN TIME - PATIENT 20.1 SEC (9.8-11.4)
--- NOTE | 2016-01-06 11:29 | HHI.PR ---
Subjective Remarks Patient seen and evaluated in follow-up for stroke with significant cognitive impairment. Still working on discharge planning. Discussed with sister yesterday Objective Vitals Vital Signs Date Time Temp Pulse Resp B/P Pulse Ox O2 Delivery O2 Flow Rate FiO2 01/06/16 08:00 96.2 79 18 112/72 97 01/06/16 04:53 96.6 85 18 129/93 97 01/05/16 23:16 96.0 94 20 94 01/05/16 20:39 97.3 75 17 136/82 96 01/05/16 17:33 97.5 78 18 137/87 97 01/05/16 13:26 97.4 75 18 117/72 95 I/O 01/05/16 01/05/16 01/05/16 01/06/16 01/06/16 01/06/16 07:00 15:00 23:00 07:00 15:00 23:00 Intake Total 60 ml 120 ml 400 ml Balance 60 ml 120 ml 400 ml Intake Oral 60 ml 120 ml 400 ml # Voids 1 2 3 # Bowel Movements 0 1 0 Result Diagram: 01/04/1681601/04/1617 Objective Remarks GENERAL: This is a well-nourished, well-developed patient, in no apparent distress. CARDIOVASCULAR: Regular rate and rhythm without murmurs, gallops, or rubs. RESPIRATORY: Clear to auscultation. Breath sounds equal bilaterally. No wheezes , rales, or rhonchi. GASTROINTESTINAL: Abdomen soft, non-tender, nondistended. Normal active bowel sounds MUSCULOSKELETAL: Extremities without clubbing, cyanosis, or edema. NEURO: Alert, Procedures None A/P Assessment and Plan Hospital day 83 for this unfortunate gentleman. Patient is a 60-year-old gentleman was admitted to the hospital 10/14 with acute cortical infarct. 1. Acute cortical infarct, continue Coumadin. INR 1.5 today. Patient has been dismissed from physical therapy as he has reached maximum benefit 2. Hypertension, continue enalapril and Carbo Dial, currently controlled 3. Ischemic cardiomyopathy with an EF of 35%. Continue Coreg, imdur and enalapril, follow fluid balance. Lasix as needed. Consider AICD if patient able to consent (currently unable) 4. CKD, at baseline, continue to avoid nephrotoxic drugs 5. Diabetes mellitus type 2, currently controlled on diet, and globin A1c 6.9 Discharge Planning Patient will need long-term care, case management aware barriers to discharge Trisha Lim MD Jan 06, 2016 11:29
[2016-01-06 12:00] VITALS: BP 95/52; PULSE 81; RESP 16; TEMP 95.5; O2SAT 95
[2016-01-06] MEDS: WARFARIN SOD 4 MG TAB PO SCH (15:33)
[2016-01-06 16:00] VITALS: BP 111/70; PULSE 77; RESP 16; TEMP 96.2; O2SAT 96
[2016-01-06 20:45] VITALS: BP 127/62; PULSE 80; RESP 20; TEMP 96.9; O2SAT 98
[2016-01-07] MEDS: CARVEDILOL 12.5 MG TAB PO SCH ×3 (00:04→21:50)
[2016-01-07] MEDS: ENALAPRIL MALEATE 5 MG TAB PO SCH ×3 (00:05→21:50)
[2016-01-07] MEDS: BETAMETHASONE DIPROPIONATE 0.05% OINT 15 GM TUBE TOP SCH ×3 (00:07→21:00)
[2016-01-07 00:59] VITALS: BP 155/76; PULSE 84; RESP 20; TEMP 97.2; O2SAT 96
[2016-01-07 04:50] VITALS: BP 158/93; PULSE 74; RESP 20; TEMP 96.5; O2SAT 96
[2016-01-07] MEDS: ISOSORBIDE MONONITRATE 60 MG TAB PO SCH (06:54)
[2016-01-07 08:12] VITALS: BP 108/72; PULSE 72; RESP 14; TEMP 96.1; O2SAT 96
[2016-01-07] MEDS: ATORVASTATIN 80 MG TAB PO SCH (08:50)
[2016-01-07] MEDS: SODIUM CHLORIDE 0.9% FLUSH 5 ML FLUSH FLUSH SCH ×2 (08:50→21:00)
[2016-01-07] MEDS: LACTULOSE SYRUP 20 GM/30 ML CUP PO SCH ×2 (08:50→09:00)
[2016-01-07] MEDS: DOCUSATE SODIUM 50 MG/SENNA 8.6 MG TAB PO SCH ×2 (08:50→21:50)
[2016-01-07] MEDS: NYSTATIN 100,000 U/GM PWD 15 GM BTL TOPICAL SCH (08:50)
[2016-01-07 09:48] LABS: INTERNATIONAL NORMALIZED RATIO 2.1 RATIO; PROTHROMBIN TIME - PATIENT 22.7 SEC (9.8-11.4)
--- NOTE | 2016-01-07 11:56 | HHI.PR ---
Subjective Remarks Patient seen and evaluated in follow-up for stroke and discharge planning. Discussed with [facility] nurse and no events and no complaints and no change condition. Objective Vitals Vital Signs Date Time Temp Pulse Resp B/P Pulse Ox O2 Delivery O2 Flow Rate FiO2 01/07/16 08:12 96.1 72 14 108/72 96 01/07/16 04:50 96.5 74 20 158/93 96 01/07/16 00:59 97.2 84 20 155/76 96 01/06/16 20:45 96.9 80 20 127/62 98 01/06/16 16:00 96.2 77 16 111/70 96 01/06/16 12:00 95.5 81 16 95/52 95 I/O 01/06/16 01/06/16 01/06/16 01/07/16 01/07/16 01/07/16 07:00 15:00 23:00 07:00 15:00 23:00 Intake Total 400 ml 720 ml 240 ml Balance 400 ml 720 ml 240 ml Intake Oral 400 ml 720 ml 240 ml # Voids 3 3 2 # Bowel Movements 0 1 1 1 Result Diagram: 01/04/1681601/04/16816 Objective Remarks GENERAL: This is a well-nourished, well-developed patient, in no apparent distress. CARDIOVASCULAR: Regular rate and rhythm without murmurs, gallops, or rubs. RESPIRATORY: Clear to auscultation. Breath sounds equal bilaterally. No wheezes , rales, or rhonchi. Procedures None A/P Problem List: (1) Cellulitis Status: Resolved (2) Ischemic cardiomyopathy Status: Chronic (3) Diabetes mellitus type 2 in obese Status: Chronic (4) S/P BKA (below knee amputation) unilateral Status: Chronic (5) Acute metabolic encephalopathy Status: Resolved (6) Bacteremia Status: Resolved (7) Chronic systolic (congestive) heart failure Status: Chronic (8) Venous stasis ulcer of left lower extremity Status: Chronic (9) CVA (cerebral vascular accident) Status: Chronic (10) Seborrheic dermatitis Status: Resolved Assessment and Plan Hospital day 84 for this unfortunate gentleman. Patient is a 60-year-old gentleman was admitted to the hospital 10/14 with acute cortical infarct. 1. Acute cortical infarct, continue Coumadin. INR 2.1 today. Patient has been dismissed from physical therapy as he has reached maximum benefit 2. Hypertension, continue enalapril and Carbo Dial, currently controlled 3. Ischemic cardiomyopathy with an EF of 35%. Continue Coreg, imdur and enalapril, follow fluid balance. Lasix as needed. Consider AICD if patient able to consent (currently unable) 4. CKD, at baseline, continue to avoid nephrotoxic drugs 5. Diabetes mellitus type 2, currently controlled on diet, and globin A1c 6.9 Discharge Planning Patient will need long-term care, case management aware barriers to discharge Problem Qualifiers (1) Cellulitis: Trisha Lim MD Jan 07, 2016 11:56
[2016-01-07 12:13] VITALS: BP 112/65; PULSE 73; RESP 18; TEMP 94.5; O2SAT 96
[2016-01-07] MEDS: WARFARIN SOD 4 MG TAB PO SCH (16:06)
[2016-01-07 16:59] VITALS: BP 138/76; PULSE 79; RESP 16; TEMP 96.9; O2SAT 98
[2016-01-07 20:00] VITALS: BP 130/68; PULSE 84; RESP 20; TEMP 97.5; O2SAT 99
[2016-01-08] VITALS (7 sets, daily range): BP systolic 106–174; BP diastolic 68–96; PULSE 71–86; RESP 16–20; TEMP 95.4–97.7; O2SAT 80–98
[2016-01-08] MEDS: ISOSORBIDE MONONITRATE 60 MG TAB PO SCH (06:13)
[2016-01-08 08:00] LABS: INTERNATIONAL NORMALIZED RATIO 2.1 RATIO; PROTHROMBIN TIME - PATIENT 23.2 SEC (9.8-11.4)
[2016-01-08] MEDS: ATORVASTATIN 80 MG TAB PO SCH (09:00)
[2016-01-08] MEDS: NYSTATIN 100,000 U/GM PWD 15 GM BTL TOPICAL SCH (09:00)
[2016-01-08] MEDS: ENALAPRIL MALEATE 5 MG TAB PO SCH ×2 (09:00→21:47)
[2016-01-08] MEDS: DOCUSATE SODIUM 50 MG/SENNA 8.6 MG TAB PO SCH ×2 (09:00→21:47)
[2016-01-08] MEDS: CARVEDILOL 12.5 MG TAB PO SCH ×2 (09:00→21:48)
[2016-01-08] MEDS: BETAMETHASONE DIPROPIONATE 0.05% OINT 15 GM TUBE TOP SCH ×2 (09:00→21:00)
[2016-01-08] MEDS: SODIUM CHLORIDE 0.9% FLUSH 5 ML FLUSH FLUSH SCH ×2 (09:00→21:00)
[2016-01-08] MEDS: LACTULOSE SYRUP 20 GM/30 ML CUP PO SCH (09:00)
--- NOTE | 2016-01-08 11:15 | HHI.PR ---
Subjective Remarks Patient is seen and evaluated today in follow-up for stroke and discharge planning. No new events. Patient home and resting Objective Vitals Vital Signs Date Time Temp Pulse Resp B/P Pulse Ox O2 Delivery O2 Flow Rate FiO2 01/08/16 08:00 95.4 79 18 106/68 94 01/08/16 04:00 97.2 72 20 138/83 98 01/08/16 00:24 97.5 71 20 122/76 97 01/07/16 20:00 97.5 84 20 130/68 99 01/07/16 16:59 96.9 79 16 138/76 98 01/07/16 12:13 94.5 73 18 112/65 96 I/O 01/07/16 01/07/16 01/07/16 01/08/16 01/08/16 01/08/16 07:00 15:00 23:00 07:00 15:00 23:00 Intake Total 400 ml 120 ml Output Total 200 ml 200 ml Balance 400 ml -80 ml -200 ml Intake Oral 400 ml 120 ml Output Urine Total 200 ml 200 ml # Voids 1 # Bowel Movements 1 2 0 0 Result Diagram: 01/04/1681601/04/16816 Objective Remarks GENERAL: This is a well-nourished, well-developed patient, in no apparent distress. CARDIOVASCULAR: Regular rate and rhythm without murmurs, gallops, or rubs. RESPIRATORY: Clear to auscultation. Breath sounds equal bilaterally. No wheezes , rales, or rhonchi. Procedures None A/P Assessment and Plan Hospital day 85 for this unfortunate gentleman. Patient is a 60-year-old gentleman was admitted to the hospital 10/14 with acute cortical infarct. 1. Acute cortical infarct, continue Coumadin. INR 2.1 today. Patient has been dismissed from physical therapy as he has reached maximum benefit 2. Hypertension, continue enalapril and Carbo Dial, currently controlled 3. Ischemic cardiomyopathy with an EF of 35%. Continue Coreg, imdur and enalapril, follow fluid balance. Lasix as needed. Consider AICD if patient able to consent (currently unable) 4. CKD, at baseline, continue to avoid nephrotoxic drugs 5. Diabetes mellitus type 2, currently controlled on diet, and globin A1c 6.9 Discharge Planning Patient will need long-term care, case management aware barriers to discharge Trisha Lim MD Jan 08, 2016 11:15
[2016-01-08] MEDS: WARFARIN SOD 4 MG TAB PO SCH (16:13)
[2016-01-09 00:50] VITALS: BP 140/87; PULSE 70; RESP 18; TEMP 96.7; O2SAT 97
[2016-01-09 04:43] VITALS: BP 141/85; PULSE 67; RESP 18; TEMP 97.8; O2SAT 95
[2016-01-09] MEDS: ISOSORBIDE MONONITRATE 60 MG TAB PO SCH (05:40)
[2016-01-09 08:25] VITALS: BP 135/81; PULSE 71; RESP 18; TEMP 97.1; O2SAT 98
[2016-01-09] MEDS: LACTULOSE SYRUP 20 GM/30 ML CUP PO SCH (09:00)
[2016-01-09] MEDS: BETAMETHASONE DIPROPIONATE 0.05% OINT 15 GM TUBE TOP SCH ×2 (09:00→20:07)
[2016-01-09] MEDS: SODIUM CHLORIDE 0.9% FLUSH 5 ML FLUSH FLUSH SCH ×2 (09:00→20:06)
[2016-01-09] MEDS: DOCUSATE SODIUM 50 MG/SENNA 8.6 MG TAB PO SCH ×2 (09:32→20:06)
[2016-01-09] MEDS: ENALAPRIL MALEATE 5 MG TAB PO SCH ×2 (09:32→20:06)
[2016-01-09] MEDS: NYSTATIN 100,000 U/GM PWD 15 GM BTL TOPICAL SCH (09:32)
[2016-01-09] MEDS: CARVEDILOL 12.5 MG TAB PO SCH ×2 (09:32→20:06)
[2016-01-09] MEDS: ATORVASTATIN 80 MG TAB PO SCH (09:32)
[2016-01-09 09:47] LABS: INTERNATIONAL NORMALIZED RATIO 2.1 RATIO; PROTHROMBIN TIME - PATIENT 22.8 SEC (9.8-11.4)
--- NOTE | 2016-01-09 11:07 | HHI.PR ---
Subjective Remarks Patient seen and evaluated in follow-up for discharge planning after stroke with severe debilitation. No new complaints today. Doing well on room more alert today Objective Vitals Vital Signs Date Time Temp Pulse Resp B/P Pulse Ox O2 Delivery O2 Flow Rate FiO2 01/09/16 08:25 97.1 71 18 135/81 98 01/09/16 04:43 97.8 67 18 141/85 95 01/09/16 00:50 96.7 70 18 140/87 97 01/08/16 20:00 97.7 75 16 130/86 97 01/08/16 17:00 152/87 80 01/08/16 16:00 96.9 86 16 174/96 97 01/08/16 12:00 97.5 81 18 171/86 96 I/O 01/08/16 01/08/16 01/08/16 01/09/16 01/09/16 01/09/16 07:00 15:00 23:00 07:00 15:00 23:00 Output Total 200 ml Balance -200 ml Output Urine Total 200 ml # Bowel Movements 0 Objective Remarks GENERAL: This is a well-nourished, well-developed patient, in no apparent distress. CARDIOVASCULAR: Regular rate and rhythm without murmurs, gallops, or rubs. RESPIRATORY: Clear to auscultation. Breath sounds equal bilaterally. No wheezes , rales, or rhonchi. GASTROINTESTINAL: Abdomen soft, non-tender, nondistended. Normal active bowel sounds MUSCULOSKELETAL: right BKA, Extremities without clubbing, cyanosis, or edema. NEURO: Alert & Oriented to person, situation Procedures None A/P Assessment and Plan Hospital day 86 for this unfortunate gentleman. Patient is a 60-year-old gentleman was admitted to the hospital 10/14 with acute cortical infarct. 1. Acute cortical infarct, continue Coumadin. INR 2.1 today. Patient has been dismissed from physical therapy as he has reached maximum benefit 2. Hypertension, continue enalapril and Carbo Dial, currently controlled 3. Ischemic cardiomyopathy with an EF of 35%. Continue Coreg, imdur and enalapril, follow fluid balance. Lasix as needed. Consider AICD if patient able to consent (currently unable) 4. CKD, at baseline, continue to avoid nephrotoxic drugs 5. Diabetes mellitus type 2, currently controlled on diet, and globin A1c 6.9 Discharge Planning Patient will need long-term care, case management aware barriers to discharge Trisha Lim MD Jan 09, 2016 11:06
[2016-01-09 12:31] VITALS: BP 125/80; PULSE 79; RESP 17; TEMP 97.1; O2SAT 97
[2016-01-09 16:00] VITALS: BP 109/73; PULSE 78; RESP 18; TEMP 98.1; O2SAT 96
[2016-01-09] MEDS: WARFARIN SOD 4 MG TAB PO SCH (16:36)
[2016-01-09 20:00] VITALS: BP 137/89; PULSE 77; RESP 18; TEMP 97.6; O2SAT 96
[2016-01-10] VITALS (8 sets, daily range): BP systolic 73–144; BP diastolic 55–87; PULSE 71–86; RESP 18; TEMP 96.8–98; O2SAT 95–98
[2016-01-10] MEDS: ISOSORBIDE MONONITRATE 60 MG TAB PO SCH (05:13)
[2016-01-10] MEDS: SODIUM CHLORIDE 0.9% FLUSH 5 ML FLUSH FLUSH SCH ×2 (08:14→20:27)
[2016-01-10] MEDS: LACTULOSE SYRUP 20 GM/30 ML CUP PO SCH ×2 (08:16→08:24)
[2016-01-10] MEDS: ATORVASTATIN 80 MG TAB PO SCH (08:17)
[2016-01-10] MEDS: BETAMETHASONE DIPROPIONATE 0.05% OINT 15 GM TUBE TOP SCH ×2 (08:17→20:27)
[2016-01-10] MEDS: DOCUSATE SODIUM 50 MG/SENNA 8.6 MG TAB PO SCH ×2 (08:17→20:27)
[2016-01-10] MEDS: NYSTATIN 100,000 U/GM PWD 15 GM BTL TOPICAL SCH (08:17)
[2016-01-10] MEDS: CARVEDILOL 12.5 MG TAB PO SCH ×2 (08:17→20:27)
[2016-01-10] MEDS: ENALAPRIL MALEATE 5 MG TAB PO SCH ×2 (08:17→20:26)
[2016-01-10 09:55] LABS: INTERNATIONAL NORMALIZED RATIO 2.4 RATIO; PROTHROMBIN TIME - PATIENT 25.9 SEC (9.8-11.4)
--- NOTE | 2016-01-10 09:56 | HHI.PR ---
Subjective Remarks Patient seen today in follow-up for discharge planning, no new events. Patient seen with [facility] for personal hygiene. Objective Vitals Vital Signs Date Time Temp Pulse Resp B/P Pulse Ox O2 Delivery O2 Flow Rate FiO2 01/10/16 08:11 96.8 75 18 120/78 98 01/10/16 04:00 98.0 71 18 144/79 98 01/10/16 00:00 97.3 72 18 128/86 95 01/09/16 20:00 97.6 77 18 137/89 96 01/09/16 16:00 98.1 78 18 109/73 96 01/09/16 12:31 97.1 79 17 125/80 97 I/O 01/09/16 01/09/16 01/09/16 01/10/16 01/10/16 01/10/16 07:00 15:00 23:00 07:00 15:00 23:00 Intake Total 480 ml 360 ml Output Total 300 ml Balance 180 ml 360 ml Intake Oral 480 ml 360 ml Output Urine Total 300 ml # Voids 3 Objective Remarks GENERAL: This is a well-nourished, well-developed patient, in no apparent distress. CARDIOVASCULAR: Regular rate and rhythm without murmurs, gallops, or rubs. RESPIRATORY: Clear to auscultation. Breath sounds equal bilaterally. No wheezes , rales, or rhonchi. GASTROINTESTINAL: Abdomen soft, non-tender, nondistended. Normal active bowel sounds MUSCULOSKELETAL: right BKA, Extremities without clubbing, cyanosis, or edema. NEURO: Alert & Oriented to person, situation Procedures None A/P Assessment and Plan Hospital day 87 for this unfortunate gentleman. Patient is a 60-year-old gentleman was admitted to the hospital 10/14 with acute cortical infarct. 1. Acute cortical infarct, continue Coumadin. INR 2.1 today. Patient has been dismissed from physical therapy as he has reached maximum benefit 2. Hypertension, continue enalapril and Carbo Dial, currently controlled 3. Ischemic cardiomyopathy with an EF of 35%. Continue Coreg, imdur and enalapril, follow fluid balance. Lasix as needed. Consider AICD if patient able to consent (currently unable) 4. CKD, at baseline, continue to avoid nephrotoxic drugs 5. Diabetes mellitus type 2, currently controlled on diet, and globin A1c 6.9 Discharge Planning Patient will need long-term care, case management aware barriers to discharge Trisha Lim MD Jan 10, 2016 09:56
[2016-01-10] MEDS: WARFARIN SOD 4 MG TAB PO SCH (17:33)
[2016-01-11] VITALS: BP 137/72; PULSE 72; RESP 18; TEMP 97; O2SAT 98
[2016-01-11 04:00] VITALS: BP 156/82; PULSE 77; RESP 18; TEMP 97.4; O2SAT 96
[2016-01-11 08:00] VITALS: BP 121/74; PULSE 79; RESP 18; TEMP 99.1; O2SAT 97
[2016-01-11] MEDS: SODIUM CHLORIDE 0.9% FLUSH 5 ML FLUSH FLUSH SCH (09:00)
[2016-01-11] MEDS: ENALAPRIL MALEATE 5 MG TAB PO SCH (09:00)
[2016-01-11] MEDS: LACTULOSE SYRUP 20 GM/30 ML CUP PO SCH (09:25)
[2016-01-11] MEDS: CARVEDILOL 12.5 MG TAB PO SCH ×2 (09:26→22:23)
[2016-01-11] MEDS: NYSTATIN 100,000 U/GM PWD 15 GM BTL TOPICAL SCH (09:26)
[2016-01-11] MEDS: ATORVASTATIN 80 MG TAB PO SCH (09:26)
[2016-01-11] MEDS: DOCUSATE SODIUM 50 MG/SENNA 8.6 MG TAB PO SCH ×2 (09:26→22:23)
[2016-01-11] MEDS: BETAMETHASONE DIPROPIONATE 0.05% OINT 15 GM TUBE TOP SCH ×2 (09:27→22:23)
[2016-01-11 10:54] LABS: INTERNATIONAL NORMALIZED RATIO 2.2 RATIO; PROTHROMBIN TIME - PATIENT 24.3 SEC (9.8-11.4)
[2016-01-11 12:00] VITALS: BP 133/81; PULSE 80; RESP 18; TEMP 98.4; O2SAT 96
--- NOTE | 2016-01-11 13:32 | HHI.PR ---
Subjective Remarks Patient seen and evaluated today in follow up for low BP. Better today with meds adjustment. Patient comfortable. Objective Vitals Vital Signs Date Time Temp Pulse Resp B/P Pulse Ox O2 Delivery O2 Flow Rate FiO2 01/11/16 12:00 98.4 80 18 133/81 96 01/11/16 08:00 99.1 79 18 121/74 97 01/11/16 04:00 97.4 77 18 156/82 96 01/11/16 00:00 97.0 72 18 137/72 98 01/10/16 20:00 97.1 74 18 142/71 98 01/10/16 16:00 97.8 73 18 110/72 97 I/O 01/10/16 01/10/16 01/10/16 01/11/16 01/11/16 01/11/16 07:00 15:00 23:00 07:00 15:00 23:00 Intake Total 360 ml 360 ml 480 ml 120 ml Output Total 300 ml Balance 360 ml 60 ml 480 ml 120 ml Intake Oral 360 ml 360 ml 480 ml 120 ml Output Urine Total 300 ml # Voids 3 3 2 # Bowel Movements 1 1 Objective Remarks GENERAL: This is a well-nourished, well-developed patient, in no apparent distress. CARDIOVASCULAR: Regular rate and rhythm without murmurs, gallops, or rubs. RESPIRATORY: Clear to auscultation. Breath sounds equal bilaterally. No wheezes , rales, or rhonchi. GASTROINTESTINAL: Abdomen soft, non-tender, nondistended. Normal active bowel sounds MUSCULOSKELETAL: right BKA, Extremities without clubbing, cyanosis, or edema. NEURO: Alert & Oriented to person, situation Procedures None A/P Problem List: (1) Cellulitis Status: Resolved (2) Ischemic cardiomyopathy Status: Chronic (3) Diabetes mellitus type 2 in obese Status: Chronic (4) S/P BKA (below knee amputation) unilateral Status: Chronic (5) Acute metabolic encephalopathy Status: Resolved (6) Bacteremia Status: Resolved (7) Chronic systolic (congestive) heart failure Status: Chronic (8) Venous stasis ulcer of left lower extremity Status: Chronic (9) CVA (cerebral vascular accident) Status: Chronic (10) Seborrheic dermatitis Status: Resolved Assessment and Plan Hospital day 88 for this unfortunate gentleman. Patient is a 60-year-old gentleman was admitted to the hospital 6/16 with acute cortical infarct. 1. Acute cortical infarct, continue Coumadin. INR 2.2 today. recheck weekly.Patient has been dismissed from physical therapy as he has reached maximum benefit 2. Hypertension, continue to adjust meds due to orthostatic hypotension 3. Ischemic cardiomyopathy with an EF of 35%. Continue Coreg, imdur and enalapril, follow fluid balance. Lasix as needed. Consider AICD if patient able to consent (currently unable) 4. CKD, at baseline, continue to avoid nephrotoxic drugs 5. Diabetes mellitus type 2, currently controlled on diet, and Hg A1c 6.9 Discharge Planning Patient will need long-term care, case management aware barriers to discharge Problem Qualifiers (1) Cellulitis: Trisha Lim MD Jan 11, 2016 13:32
[2016-01-11 16:00] VITALS: BP 128/80; PULSE 76; RESP 20; TEMP 96; O2SAT 95
[2016-01-11] MEDS: WARFARIN SOD 4 MG TAB PO SCH (16:17)
[2016-01-11 20:05] VITALS: BP 124/72; PULSE 72; RESP 20; TEMP 97.9; O2SAT 98
[2016-01-11] MEDS: ISOSORBIDE MONONITRATE 60 MG TAB PO SCH (22:23)
[2016-01-12] VITALS: BP 110/71; PULSE 71; RESP 20; TEMP 96.3; O2SAT 100
[2016-01-12 03:55] VITALS: BP 160/87; PULSE 75; RESP 19; TEMP 97.1; O2SAT 99
[2016-01-12 08:06] VITALS: BP 149/88; PULSE 74; RESP 20; TEMP 96.3; O2SAT 95
[2016-01-12] MEDS: NYSTATIN 100,000 U/GM PWD 15 GM BTL TOPICAL SCH (09:00)
[2016-01-12] MEDS: SODIUM CHLORIDE 0.9% FLUSH 5 ML FLUSH FLUSH SCH ×2 (09:00→21:00)
[2016-01-12] MEDS: BETAMETHASONE DIPROPIONATE 0.05% OINT 15 GM TUBE TOP SCH ×2 (09:00→21:56)
[2016-01-12] MEDS: CARVEDILOL 12.5 MG TAB PO SCH ×2 (10:19→21:55)
[2016-01-12] MEDS: ATORVASTATIN 80 MG TAB PO SCH (10:19)
[2016-01-12] MEDS: ENALAPRIL MALEATE 2.5 MG TAB PO SCH (10:19)
[2016-01-12] MEDS: DOCUSATE SODIUM 50 MG/SENNA 8.6 MG TAB PO SCH ×2 (10:19→21:56)
[2016-01-12] MEDS: LACTULOSE SYRUP 20 GM/30 ML CUP PO SCH (10:20)
--- NOTE | 2016-01-12 10:42 | HHI.PR ---
Subjective Remarks Pt doing well. Denies any chest pain, SOB, nausea or vomiting. wondering when he will be discharged. Objective Vitals Vital Signs Date Time Temp Pulse Resp B/P Pulse Ox O2 Delivery O2 Flow Rate FiO2 01/12/16 08:06 96.3 74 20 149/88 95 01/12/16 03:55 97.1 75 19 160/87 99 01/12/16 00:00 96.3 71 20 110/71 100 01/11/16 20:05 97.9 72 20 124/72 98 01/11/16 16:00 96.0 76 20 128/80 95 01/11/16 12:00 98.4 80 18 133/81 96 I/O 01/11/16 01/11/16 01/11/16 01/12/16 01/12/16 01/12/16 06:59 14:59 22:59 06:59 14:59 22:59 Intake Total 120 ml 360 ml 360 ml Balance 120 ml 360 ml 360 ml Intake Oral 120 ml 360 ml 360 ml IV Total 0 ml # Voids 2 0 # Bowel Movements 1 2 0 Imaging Last Impressions Chest X-Ray 11/06/15 0000 Signed Impressions: Service Date/Time: Friday, November 06, 2015 11:35 - CONCLUSION: Compensated cardiomegaly, history of bypass otherwise negative. Superior most sternal wire is fractured. iDdier Clay MD FACR Liver Ultrasound 10/30/15 0000 Signed Impressions: Service Date/Time: Friday, October 30, 2015 17:29 - CONCLUSION: 1. Cholelithiasis with probable gallbladder sludge and mild gallbladder distention. 2. Splenomegaly. Sameer Alexandra MD Modified Barium Swallow 10/27/15 0000 Signed Impressions: Service Date/Time: Tuesday, October 27, 2015 00:00 - CONCLUSION: Negative for penetration or aspiration. Please see speech pathology report. Tai Cohen MD Brain MRI 10/22/15 0000 Signed Impressions: Service Date/Time: September 14:38 - CONCLUSION: 1. No significant interval change is identified. There is stable restricted diffusion in the left basal ganglia representing an area of recent ischemia. There are no findings to indicate hemorrhagic transformation. The previously documented signal change within the right cerebral peduncle has nearly normalized. 2. Stable chronic white matter changes. Camacho Culp MD Neck Magnetic Resonance Angiography 10/21/15 0000 Signed Impressions: Service Date/Time: Wednesday, October 21, 2015 12:52 - CONCLUSION: . 1. Unremarkable MRA of the carotid arteries bilaterally. 2. Nonspecific possible collateral vessels in the soft tissues posterior to the right vertebral artery. The right verbal artery appears to be patent. If clinically indicated, a CTA could be performed for further evaluation. Abiodun Hall MD Head Magnetic Resonance Angiography 10/21/15 0000 Signed Impressions: Service Date/Time: Wednesday, October 21, 2015 12:52 - CONCLUSION: Unremarkable MRA of the brain. Abiodun Hall MD Head CT 10/15/152116 Signed Impressions: Service Date/Time: September 21:47 - CONCLUSION: 1. No evidence of hemorrhage or mass effect. 2. Lacunar infarct right thalamus, left basal ganglia and adjacent to the left lateral ventricular body. 3. No skull fracture seen. Daryl Varner MD Objective Remarks GENERAL: This is a well-nourished, well-developed patient, in no apparent distress. CARDIOVASCULAR: Regular rate and rhythm without murmurs. RESPIRATORY: Clear to auscultation. Breath sounds equal bilaterally. No wheezes. GASTROINTESTINAL: Abdomen soft, non-tender, nondistended. Normal active bowel sounds MUSCULOSKELETAL: right BKA, Extremities without edema. NEURO: Alert & Oriented to person, situation Procedures None A/P Problem List: (1) Cellulitis Status: Resolved (2) Ischemic cardiomyopathy Status: Chronic (3) Diabetes mellitus type 2 in obese Status: Chronic (4) S/P BKA (below knee amputation) unilateral Status: Chronic (5) Acute metabolic encephalopathy Status: Resolved (6) Bacteremia Status: Resolved (7) Chronic systolic (congestive) heart failure Status: Chronic (8) Venous stasis ulcer of left lower extremity Status: Chronic (9) CVA (cerebral vascular accident) Status: Chronic (10) Seborrheic dermatitis Status: Resolved Assessment and Plan Hospital day 89 for this unfortunate gentleman. Patient is a 60-year-old gentleman was admitted to the hospital 10/14 with acute cortical infarct. 1. Acute cortical infarct, continue Coumadin. INR 2.2 yesterday. recheck weekly.Patient has been dismissed from physical therapy as he has reached maximum benefit 2. Hypertension, continue to adjust meds due to orthostatic hypotension 3. Ischemic cardiomyopathy with an EF of 35%. Continue Coreg, imdur and enalapril, follow fluid balance. Lasix as needed. Consider AICD if patient able to consent (currently unable) 4. CKD, at baseline, continue to avoid nephrotoxic drugs 5. Diabetes mellitus type 2, currently controlled on diet, and Hg A1c 6.9 Discharge Planning Patient will need long-term care, case management aware barriers to discharge. I did discuss w CM today and still no placement yet. Appreciate assistance Problem Qualifiers (1) Cellulitis: Micki Gamble MD Jan 12, 2016 10:42
[2016-01-12 11:53] VITALS: BP 145/91; PULSE 80; RESP 20; TEMP 96.3; O2SAT 97
[2016-01-12] MEDS: WARFARIN SOD 4 MG TAB PO SCH (16:00)
[2016-01-12 20:10] VITALS: BP 107/66; PULSE 73; RESP 19; TEMP 97.9; O2SAT 20; O2SAT 98
[2016-01-12] MEDS: ISOSORBIDE MONONITRATE 60 MG TAB PO SCH (21:56)
[2016-01-13] VITALS (7 sets, daily range): BP systolic 124–136; BP diastolic 70–82; PULSE 70–75; RESP 18; TEMP 96–98.1; O2SAT 96–100
[2016-01-13] MEDS: LACTULOSE SYRUP 20 GM/30 ML CUP PO SCH (08:52)
[2016-01-13] MEDS: DOCUSATE SODIUM 50 MG/SENNA 8.6 MG TAB PO SCH ×2 (08:52→21:55)
[2016-01-13] MEDS: SODIUM CHLORIDE 0.9% FLUSH 5 ML FLUSH FLUSH SCH (08:52)
[2016-01-13] MEDS: ENALAPRIL MALEATE 2.5 MG TAB PO SCH (08:53)
[2016-01-13] MEDS: ATORVASTATIN 80 MG TAB PO SCH (08:53)
[2016-01-13] MEDS: CARVEDILOL 12.5 MG TAB PO SCH ×2 (08:53→21:55)
[2016-01-13] MEDS: BETAMETHASONE DIPROPIONATE 0.05% OINT 15 GM TUBE TOP SCH ×2 (08:53→21:56)
[2016-01-13] MEDS: NYSTATIN 100,000 U/GM PWD 15 GM BTL TOPICAL SCH (08:54)
--- NOTE | 2016-01-13 14:02 | HHI.PR ---
Subjective Remarks Feels ok, no concerns, at lunch. no chest pain, SOB, n/v. Pt watching cartoons Objective Vitals Vital Signs Date Time Temp Pulse Resp B/P Pulse Ox O2 Delivery O2 Flow Rate FiO2 01/13/16 12:00 96.0 73 18 127/82 96 01/13/16 08:41 98 01/13/16 08:00 96.2 75 18 125/70 99 01/13/16 04:31 98.1 72 18 124/72 96 01/13/16 00:05 97.8 70 18 130/75 96 01/12/16 20:10 97.9 73 19 107/66 98 I/O 01/12/16 01/12/16 01/12/16 01/13/16 01/13/16 01/13/16 07:00 15:00 23:00 07:00 15:00 23:00 Intake Total 960 ml Balance 960 ml Intake Oral 960 ml # Voids 1 Imaging Last Impressions Chest X-Ray 11/06/15 0000 Signed Impressions: Service Date/Time: Friday, November 06, 2015 11:35 - CONCLUSION: Compensated cardiomegaly, history of bypass otherwise negative. Superior most sternal wire is fractured. Didier Clay MD FACR Liver Ultrasound 10/30/15 0000 Signed Impressions: Service Date/Time: Friday, October 30, 2015 17:29 - CONCLUSION: 1. Cholelithiasis with probable gallbladder sludge and mild gallbladder distention. 2. Splenomegaly. Sameer Alexandra MD Modified Barium Swallow 10/27/15 0000 Signed Impressions: Service Date/Time: Tuesday, October 27, 2015 00:00 - CONCLUSION: Negative for penetration or aspiration. Please see speech pathology report. Tai Cohen MD Brain MRI 10/22/15 0000 Signed Impressions: Service Date/Time: September 14:38 - CONCLUSION: 1. No significant interval change is identified. There is stable restricted diffusion in the left basal ganglia representing an area of recent ischemia. There are no findings to indicate hemorrhagic transformation. The previously documented signal change within the right cerebral peduncle has nearly normalized. 2. Stable chronic white matter changes. Camacho Culp MD Neck Magnetic Resonance Angiography 10/21/15 0000 Signed Impressions: Service Date/Time: Wednesday, October 21, 2015 12:52 - CONCLUSION: . 1. Unremarkable MRA of the carotid arteries bilaterally. 2. Nonspecific possible collateral vessels in the soft tissues posterior to the right vertebral artery. The right verbal artery appears to be patent. If clinically indicated, a CTA could be performed for further evaluation. Abiodun Hall MD Head Magnetic Resonance Angiography 10/21/15 0000 Signed Impressions: Service Date/Time: Wednesday, October 21, 2015 12:52 - CONCLUSION: Unremarkable MRA of the brain. Abiodun Hall MD Head CT 10/15/152116 Signed Impressions: Service Date/Time: September 21:47 - CONCLUSION: 1. No evidence of hemorrhage or mass effect. 2. Lacunar infarct right thalamus, left basal ganglia and adjacent to the left lateral ventricular body. 3. No skull fracture seen. Daryl Varner MD Objective Remarks GENERAL: This is a well-nourished, well-developed patient, in no apparent distress. CARDIOVASCULAR: Regular rate and rhythm without murmurs. RESPIRATORY: Clear to auscultation. Breath sounds equal bilaterally. No wheezes. GASTROINTESTINAL: Abdomen soft, non-tender, nondistended. Normal active bowel sounds MUSCULOSKELETAL: right BKA, Extremities without edema. NEURO: Alert & Oriented to person, situation Procedures None A/P Problem List: (1) Cellulitis Status: Resolved (2) Ischemic cardiomyopathy Status: Chronic (3) Diabetes mellitus type 2 in obese Status: Chronic (4) S/P BKA (below knee amputation) unilateral Status: Chronic (5) Acute metabolic encephalopathy Status: Resolved (6) Bacteremia Status: Resolved (7) Chronic systolic (congestive) heart failure Status: Chronic (8) Venous stasis ulcer of left lower extremity Status: Chronic (9) CVA (cerebral vascular accident) Status: Chronic (10) Seborrheic dermatitis Status: Resolved Assessment and Plan Hospital day 90 for this unfortunate gentleman. Patient is a 60-year-old gentleman was admitted to the hospital 10/14 with acute cortical infarct. 1. Acute cortical infarct, continue Coumadin. INR 2.2 01/10. recheck weekly.Patient has been dismissed from physical therapy as he has reached maximum benefit 2. Hypertension, continue to adjust meds due to orthostatic hypotension 3. Ischemic cardiomyopathy with an EF of 35%. Continue Coreg, imdur and enalapril, follow fluid balance. Lasix as needed. Consider AICD if patient able to consent (currently unable) 4. CKD, at baseline, continue to avoid nephrotoxic drugs 5. Diabetes mellitus type 2, currently controlled on diet, and Hg A1c 6.9 Discharge Planning Patient will need long-term care, case management aware barriers to discharge. I did discuss w CM today and still no placement yet. Appreciate assistance Problem Qualifiers (1) Cellulitis: Micki Gamble MD Jan 13, 2016 14:02
[2016-01-13] MEDS: WARFARIN SOD 4 MG TAB PO SCH (15:46)
[2016-01-13] MEDS: EUCERIN CREAM 120 GM JAR TOPICAL SCH (21:55)
[2016-01-13] MEDS: ISOSORBIDE MONONITRATE 60 MG TAB PO SCH (21:56)
[2016-01-14] VITALS (7 sets, daily range): BP systolic 80–122; BP diastolic 52–79; PULSE 75–86; RESP 17–20; TEMP 96.8–97.3; O2SAT 94–99
[2016-01-14] MEDS: NYSTATIN 100,000 U/GM PWD 15 GM BTL TOPICAL SCH (09:00)
[2016-01-14] MEDS: SODIUM CHLORIDE 0.9% FLUSH 5 ML FLUSH FLUSH SCH ×2 (09:00→21:06)
[2016-01-14] MEDS: BETAMETHASONE DIPROPIONATE 0.05% OINT 15 GM TUBE TOP SCH ×2 (09:00→21:02)
[2016-01-14 09:46] LABS: INTERNATIONAL NORMALIZED RATIO 1.8 RATIO; PROTHROMBIN TIME - PATIENT 18.9 SEC (9.8-11.4)
[2016-01-14] MEDS: ATORVASTATIN 80 MG TAB PO SCH (10:04)
[2016-01-14] MEDS: CARVEDILOL 12.5 MG TAB PO SCH ×2 (10:04→21:02)
[2016-01-14] MEDS: LACTULOSE SYRUP 20 GM/30 ML CUP PO SCH (10:04)
[2016-01-14] MEDS: ENALAPRIL MALEATE 2.5 MG TAB PO SCH (10:05)
[2016-01-14] MEDS: DOCUSATE SODIUM 50 MG/SENNA 8.6 MG TAB PO SCH ×2 (10:05→21:00)
[2016-01-14] MEDS: EUCERIN CREAM 120 GM JAR TOPICAL SCH ×2 (10:07→21:04)
--- NOTE | 2016-01-14 14:08 | HHI.PR ---
Addendum to Inpatient Note Addendum Reason: Additional Documentation Additional Information Pt has no complaints. Not interested in his lunch for now. Denies any CP/SOB/N/V Exam unchanged from yesterday Plan same as yesterday. discussed w CM regarding d/c planning and still no placement available. Micki Gamble MD Jan 14, 2016 14:08
[2016-01-14] MEDS: WARFARIN SOD 5 MG TAB PO SCH (16:00)
[2016-01-14] MEDS ORDERED: WARFARIN SOD 2 MG TAB PO ONE (16:00)
[2016-01-14] MEDS: ISOSORBIDE MONONITRATE 60 MG TAB PO SCH (21:02)
[2016-01-15] VITALS: BP 113/73; PULSE 74; RESP 18; TEMP 97; O2SAT 93
[2016-01-15 04:00] VITALS: BP 113/72; PULSE 74; RESP 20; TEMP 97; O2SAT 96
[2016-01-15 08:00] VITALS: BP 108/68; PULSE 75; RESP 17; TEMP 98.6; O2SAT 95
[2016-01-15] MEDS: SODIUM CHLORIDE 0.9% FLUSH 5 ML FLUSH FLUSH SCH ×2 (09:00→21:00)
[2016-01-15] MEDS: BETAMETHASONE DIPROPIONATE 0.05% OINT 15 GM TUBE TOP SCH ×2 (09:00→21:00)
[2016-01-15] MEDS: NYSTATIN 100,000 U/GM PWD 15 GM BTL TOPICAL SCH (09:00)
[2016-01-15] MEDS: ATORVASTATIN 80 MG TAB PO SCH (09:00)
[2016-01-15] MEDS: DOCUSATE SODIUM 50 MG/SENNA 8.6 MG TAB PO SCH ×2 (09:46→21:00)
[2016-01-15] MEDS: LACTULOSE SYRUP 20 GM/30 ML CUP PO SCH (09:46)
[2016-01-15] MEDS: EUCERIN CREAM 120 GM JAR TOPICAL SCH ×2 (09:47→21:00)
[2016-01-15] MEDS: ENALAPRIL MALEATE 2.5 MG TAB PO SCH (09:47)
[2016-01-15] MEDS: CARVEDILOL 12.5 MG TAB PO SCH ×2 (09:47→20:40)
[2016-01-15 12:00] VITALS: BP 131/82; PULSE 74; RESP 18; TEMP 97.6; O2SAT 96
--- NOTE | 2016-01-15 13:32 | HHI.PR ---
Subjective Remarks Follow-up for INR INR subtherapeutic, no bleeding, no complaints. No chest pain or shortness of breath. Stable. Objective Vitals Vital Signs Date Time Temp Pulse Resp B/P Pulse Ox O2 Delivery O2 Flow Rate FiO2 01/15/16 12:00 97.6 74 18 131/82 96 01/15/16 08:00 98.6 75 17 108/68 95 01/15/16 04:00 97.0 74 20 113/72 96 01/15/16 00:00 97.0 74 18 113/73 93 01/14/16 20:00 97.0 85 20 112/79 97 01/14/16 16:36 97.3 75 18 107/73 99 I/O 01/14/16 01/14/16 01/14/16 01/15/16 01/15/16 01/15/16 07:00 15:00 23:00 07:00 15:00 23:00 Intake Total 360 ml 220 ml Output Total 300 ml Balance 60 ml 220 ml Intake Oral 360 ml 220 ml Output Urine Total 300 ml # Voids 2 # Bowel Movements 1 2 Objective Remarks GENERAL: Not in distress, calm. CARDIOVASCULAR: Regular rate and rhythm without murmurs. RESPIRATORY: Clear to auscultation. Breath sounds equal bilaterally. No wheezes. GASTROINTESTINAL: Abdomen soft, non-tender, nondistended. MUSCULOSKELETAL: right BKA, Extremities without edema. NEURO: Alert & Oriented to person, and place but not to time, moves extremities. Procedures None A/P Problem List: (1) Cellulitis Status: Resolved (2) Ischemic cardiomyopathy Status: Chronic (3) Diabetes mellitus type 2 in obese Status: Chronic (4) S/P BKA (below knee amputation) unilateral Status: Chronic (5) Acute metabolic encephalopathy Status: Resolved (6) Bacteremia Status: Resolved (7) Chronic systolic (congestive) heart failure Status: Chronic (8) Venous stasis ulcer of left lower extremity Status: Chronic (9) CVA (cerebral vascular accident) Status: Chronic (10) Seborrheic dermatitis Status: Resolved Assessment and Plan Hospital day 90 for this unfortunate gentleman. Patient is a 60-year-old gentleman was admitted to the hospital 10/14 with acute cortical infarct. 1. Acute cortical infarct, continue Coumadin. INR subtherapeutic, recheck INR tomorrow. If stable, may Recheck weekly.Patient has been dismissed from physical therapy as he has reached maximum benefit 2. Hypertension, continue to adjust meds due to orthostatic hypotension 3. Ischemic cardiomyopathy with an EF of 35%. Continue Coreg, imdur and enalapril, follow fluid balance. Lasix as needed. Consider AICD if patient able to consent (currently unable) 4. CKD, at baseline, continue to avoid nephrotoxic drugs 5. Diabetes mellitus type 2, currently controlled on diet, and Hg A1c 6.9 Discharge Planning Patient will need long-term care, case management aware barriers to discharge. I did discuss w CM today and still no placement yet. Appreciate assistance Problem Qualifiers (1) Cellulitis: Marino Benitez MD Jan 15, 2016 13:32
[2016-01-15 15:20] VITALS: BP 143/86; PULSE 73; RESP 17; TEMP 96.5; O2SAT 96
[2016-01-15] MEDS: WARFARIN SOD 5 MG TAB PO SCH (16:41)
[2016-01-15 20:00] VITALS: BP 143/84; PULSE 79; RESP 20; TEMP 97.4; O2SAT 95
[2016-01-15] MEDS: ISOSORBIDE MONONITRATE 60 MG TAB PO SCH (20:40)
[2016-01-16] VITALS: BP 107/74; PULSE 72; RESP 20; TEMP 96.9; O2SAT 93
[2016-01-16 04:00] VITALS: BP 126/79; PULSE 72; RESP 20; TEMP 96.5; O2SAT 95
[2016-01-16 06:40] LABS: PROTHROMBIN TIME - PATIENT 22.1 SEC (9.8-11.4)
[2016-01-16 08:00] VITALS: BP 128/79; PULSE 72; RESP 20; TEMP 97.4; O2SAT 98
[2016-01-16] MEDS: BETAMETHASONE DIPROPIONATE 0.05% OINT 15 GM TUBE TOP SCH ×2 (09:00→21:51)
[2016-01-16] MEDS: NYSTATIN 100,000 U/GM PWD 15 GM BTL TOPICAL SCH (09:00)
[2016-01-16] MEDS: SODIUM CHLORIDE 0.9% FLUSH 5 ML FLUSH FLUSH SCH ×2 (09:00→21:00)
[2016-01-16] MEDS: EUCERIN CREAM 120 GM JAR TOPICAL SCH ×2 (09:00→21:52)
[2016-01-16] MEDS: ATORVASTATIN 80 MG TAB PO SCH (10:08)
[2016-01-16] MEDS: DOCUSATE SODIUM 50 MG/SENNA 8.6 MG TAB PO SCH ×2 (10:08→21:48)
[2016-01-16] MEDS: CARVEDILOL 12.5 MG TAB PO SCH ×2 (10:09→21:48)
[2016-01-16] MEDS: ENALAPRIL MALEATE 2.5 MG TAB PO SCH (10:09)
[2016-01-16] MEDS: LACTULOSE SYRUP 20 GM/30 ML CUP PO SCH (10:09)
[2016-01-16 12:00] VITALS: BP 128/80; PULSE 76; RESP 20; TEMP 97; O2SAT 95
--- NOTE | 2016-01-16 13:16 | HHI.PR ---
Subjective Remarks Follow CVA No overnight events, eating lunch. Objective Vitals Vital Signs Date Time Temp Pulse Resp B/P Pulse Ox O2 Delivery O2 Flow Rate FiO2 01/16/16 12:00 97.0 76 20 128/80 95 01/16/16 08:00 97.4 72 20 128/79 98 01/16/16 04:00 96.5 72 20 126/79 95 01/16/16 00:00 96.9 72 20 107/74 93 01/15/16 20:00 97.4 79 20 143/84 95 01/15/16 15:20 96.5 73 17 143/86 96 I/O 01/15/16 01/15/16 01/15/16 01/16/16 01/16/16 01/16/16 07:00 15:00 23:00 07:00 15:00 23:00 Intake Total 240 ml 360 ml Output Total 200 ml Balance 40 ml 360 ml Intake Oral 240 ml 360 ml Output Urine Total 200 ml # Voids 2 3 # Bowel Movements 2 0 Objective Remarks GENERAL: Not in distress, calm. CARDIOVASCULAR: Regular rate and rhythm without murmurs. RESPIRATORY: Clear to auscultation. Breath sounds equal bilaterally. No wheezes. GASTROINTESTINAL: Abdomen soft, non-tender, nondistended. MUSCULOSKELETAL: right BKA, Extremities without edema. NEURO: Alert & Oriented to person, and place but not to time, moves extremities. Procedures None A/P Problem List: (1) Cellulitis Status: Resolved (2) Ischemic cardiomyopathy Status: Chronic (3) Diabetes mellitus type 2 in obese Status: Chronic (4) S/P BKA (below knee amputation) unilateral Status: Chronic (5) Acute metabolic encephalopathy Status: Resolved (6) Bacteremia Status: Resolved (7) Chronic systolic (congestive) heart failure Status: Chronic (8) Venous stasis ulcer of left lower extremity Status: Chronic (9) CVA (cerebral vascular accident) Status: Chronic (10) Seborrheic dermatitis Status: Resolved Assessment and Plan Hospital day 90 for this unfortunate gentleman. Patient is a 60-year-old gentleman was admitted to the hospital 10/14 with acute cortical infarct. 1. Acute cortical infarct, continue Coumadin. INR subtherapeutic, recheck INR tomorrow. If stable, may Recheck weekly.Patient has been dismissed from physical therapy as he has reached maximum benefit 2. Hypertension, continue to adjust meds due to orthostatic hypotension 3. Ischemic cardiomyopathy with an EF of 35%. Continue Coreg, imdur and enalapril, follow fluid balance. Lasix as needed. Consider AICD if patient able to consent (currently unable) 4. CKD, at baseline, continue to avoid nephrotoxic drugs 5. Diabetes mellitus type 2, currently controlled on diet, and Hg A1c 6.9 01/16/16 No overnight events, no complaints. No chest pain or shortness of breath. No change in management. As above. Discharge Planning Patient will need long-term care, case management aware barriers to discharge. I did discuss w CM today and still no placement yet. Appreciate assistance Problem Qualifiers (1) Cellulitis: Marino Benitez MD Jan 16, 2016 13:16
[2016-01-16 16:00] VITALS: BP 158/87; PULSE 81; RESP 20; TEMP 97.4; O2SAT 95
[2016-01-16] MEDS: WARFARIN SOD 5 MG TAB PO SCH (17:40)
[2016-01-16 20:00] VITALS: BP 127/74; PULSE 74; RESP 20; TEMP 96.3; O2SAT 97
[2016-01-16] MEDS: ISOSORBIDE MONONITRATE 60 MG TAB PO SCH (21:47)
[2016-01-17 00:25] VITALS: BP 106/68; PULSE 75; RESP 20; TEMP 96; O2SAT 94
[2016-01-17 05:42] VITALS: BP 103/65; PULSE 73; RESP 20; TEMP 96.5; O2SAT 96
[2016-01-17 07:57] VITALS: BP 124/77; PULSE 75; RESP 16; TEMP 96.1; O2SAT 95
[2016-01-17] MEDS: SODIUM CHLORIDE 0.9% FLUSH 5 ML FLUSH FLUSH SCH ×2 (09:00→21:00)
[2016-01-17] MEDS: BETAMETHASONE DIPROPIONATE 0.05% OINT 15 GM TUBE TOP SCH ×2 (09:34→21:36)
[2016-01-17] MEDS: CARVEDILOL 12.5 MG TAB PO SCH ×2 (09:34→21:37)
[2016-01-17] MEDS: DOCUSATE SODIUM 50 MG/SENNA 8.6 MG TAB PO SCH ×2 (09:34→21:37)
[2016-01-17] MEDS: LACTULOSE SYRUP 20 GM/30 ML CUP PO SCH (09:34)
[2016-01-17] MEDS: ENALAPRIL MALEATE 2.5 MG TAB PO SCH (09:34)
[2016-01-17] MEDS: EUCERIN CREAM 120 GM JAR TOPICAL SCH ×2 (09:34→21:36)
[2016-01-17] MEDS: ATORVASTATIN 80 MG TAB PO SCH (09:34)
[2016-01-17] MEDS: NYSTATIN 100,000 U/GM PWD 15 GM BTL TOPICAL SCH (09:34)
--- NOTE | 2016-01-17 11:35 | HHI.PR ---
Subjective Remarks No overnight events, a breakfast. Sleepy but arousable. Objective Vitals Vital Signs Date Time Temp Pulse Resp B/P Pulse Ox O2 Delivery O2 Flow Rate FiO2 01/17/16 07:57 96.1 75 16 124/77 95 01/17/16 05:42 96.5 73 20 103/65 96 01/17/16 00:25 96.0 75 20 106/68 94 01/16/16 20:00 96.3 74 20 127/74 97 01/16/16 16:00 97.4 81 20 158/87 95 01/16/16 12:00 97.0 76 20 128/80 95 I/O 01/16/16 01/16/16 01/16/16 01/17/16 01/17/16 01/17/16 07:00 15:00 23:00 07:00 15:00 23:00 Intake Total 360 ml 480 ml 240 ml Output Total 400 ml 200 ml 200 ml Balance 360 ml 80 ml 40 ml -200 ml Intake Oral 360 ml 480 ml 240 ml Output Urine Total 400 ml 200 ml 200 ml # Voids 3 # Bowel Movements 0 0 0 Objective Remarks GENERAL: Not in distress, calm. CARDIOVASCULAR: Regular rate and rhythm without murmurs. RESPIRATORY: Clear to auscultation. Breath sounds equal bilaterally. No wheezes. GASTROINTESTINAL: Abdomen soft, non-tender MUSCULOSKELETAL: right BKA, Extremities without edema. NEURO: Alert & Oriented to person, and place but not to time, moves extremities. Procedures None A/P Problem List: (1) Cellulitis Status: Resolved (2) Ischemic cardiomyopathy Status: Chronic (3) Diabetes mellitus type 2 in obese Status: Chronic (4) S/P BKA (below knee amputation) unilateral Status: Chronic (5) Acute metabolic encephalopathy Status: Resolved (6) Bacteremia Status: Resolved (7) Chronic systolic (congestive) heart failure Status: Chronic (8) Venous stasis ulcer of left lower extremity Status: Chronic (9) CVA (cerebral vascular accident) Status: Chronic (10) Seborrheic dermatitis Status: Resolved Assessment and Plan Hospital day 90 for this unfortunate gentleman. Patient is a 60-year-old gentleman was admitted to the hospital 10/14 with acute cortical infarct. 1. Acute cortical infarct, continue Coumadin. INR subtherapeutic, recheck INR tomorrow. If stable, may Recheck weekly.Patient has been dismissed from physical therapy as he has reached maximum benefit 2. Hypertension, continue to adjust meds due to orthostatic hypotension 3. Ischemic cardiomyopathy with an EF of 35%. Continue Coreg, imdur and enalapril, follow fluid balance. Lasix as needed. Consider AICD if patient able to consent (currently unable) 4. CKD, at baseline, continue to avoid nephrotoxic drugs 5. Diabetes mellitus type 2, currently controlled on diet, and Hg A1c 6.9 01/16/16 No overnight events, no complaints. No chest pain or shortness of breath. No change in management. As above. 01/17/16 No overnight events, a breakfast. Sleepy but arousable. No change in management, awaiting placement Discharge Planning Patient will need long-term care, case management aware barriers to discharge. I did discuss w CM today and still no placement yet. Appreciate assistance Problem Qualifiers (1) Cellulitis: Marino Benitez MD Jan 17, 2016 11:35
[2016-01-17 12:00] VITALS: BP 134/77; PULSE 66; RESP 18; TEMP 97.8; O2SAT 95
[2016-01-17 16:00] VITALS: BP 164/88; PULSE 81; RESP 17; TEMP 98.1; O2SAT 97
[2016-01-17] MEDS: WARFARIN SOD 5 MG TAB PO SCH (16:00)
[2016-01-17 20:00] VITALS: BP 153/86; PULSE 85; RESP 18; TEMP 97.8; O2SAT 97
[2016-01-17] MEDS: ISOSORBIDE MONONITRATE 60 MG TAB PO SCH (21:37)
[2016-01-18] VITALS (7 sets, daily range): BP systolic 94–164; BP diastolic 60–94; PULSE 71–84; RESP 16–19; TEMP 96.8–98.6; O2SAT 93–97
[2016-01-18] MEDS: ATORVASTATIN 80 MG TAB PO SCH (08:47)
[2016-01-18] MEDS: CARVEDILOL 12.5 MG TAB PO SCH ×2 (08:47→20:29)
[2016-01-18] MEDS: LACTULOSE SYRUP 20 GM/30 ML CUP PO SCH (08:47)
[2016-01-18] MEDS: DOCUSATE SODIUM 50 MG/SENNA 8.6 MG TAB PO SCH ×2 (08:47→20:29)
[2016-01-18] MEDS: ENALAPRIL MALEATE 2.5 MG TAB PO SCH (08:47)
[2016-01-18] MEDS: BETAMETHASONE DIPROPIONATE 0.05% OINT 15 GM TUBE TOP SCH ×2 (08:48→20:30)
[2016-01-18] MEDS: SODIUM CHLORIDE 0.9% FLUSH 5 ML FLUSH FLUSH SCH ×2 (08:48→20:29)
[2016-01-18] MEDS: NYSTATIN 100,000 U/GM PWD 15 GM BTL TOPICAL SCH (08:48)
[2016-01-18] MEDS: EUCERIN CREAM 120 GM JAR TOPICAL SCH ×2 (08:48→20:30)
[2016-01-18 10:49] LABS: INTERNATIONAL NORMALIZED RATIO 1.8 RATIO; PROTHROMBIN TIME - PATIENT 19.6 SEC (9.8-11.4)
--- NOTE | 2016-01-18 14:49 | HHI.PR ---
Subjective Remarks Patient seen today around 11 AM. He denies any pain. Says he feels well. Discussed with nursing. No acute issues. Objective Vital Signs Date Time Temp Pulse Resp B/P Pulse Ox O2 Delivery O2 Flow Rate FiO2 01/18/16 12:30 96.8 71 19 124/61 96 01/18/16 07:59 97.8 75 16 121/71 96 01/18/16 04:00 97.3 75 16 94/60 95 01/18/16 00:20 97.8 84 16 134/83 96 01/17/16 20:00 97.8 85 18 153/86 97 01/17/16 16:00 98.1 81 17 164/88 97 I/O 01/17/16 01/17/16 01/17/16 01/18/16 01/18/16 01/18/16 07:00 15:00 23:00 07:00 15:00 23:00 Intake Total 480 ml 240 ml 100 ml Output Total 200 ml 450 ml 200 ml Balance -200 ml 30 ml 40 ml 100 ml Intake Oral 480 ml 240 ml 100 ml Output Urine Total 200 ml 450 ml 200 ml # Voids 2 # Bowel Movements 0 0 Objective Remarks GENERAL: Sitting up in bed. Appears comfortable. Alert and oriented to person and place, not to date or year. SKIN: Warm and dry. HEAD: Normocephalic. EYES: No scleral icterus. No injection or drainage. NECK: Supple, trachea midline. No JVD. CARDIOVASCULAR: Regular rate and rhythm without murmurs, gallops, or rubs. RESPIRATORY: Breath sounds equal bilaterally. No accessory muscle use. GASTROINTESTINAL: Abdomen soft, non-tender, nondistended. MUSCULOSKELETAL: No cyanosis, or edema. Right below the knee amputation, healed well. No peripheral edema. No active cellulitis. Signs of chronic venous stasis. BACK: Nontender without obvious deformity. No CVA tenderness. A/P Assessment and Plan 60-year-old male hospital day 90. Admitted 10/14 with acute cortical infarct. //Bilateral CVA:MRI showed acute cortical infarct. MRA of head and neck unremarkable. //Suspected dementia - S/p ASA and Plavix. Continue with Statin, Coumadin and monitor INR/PT keep INR between 2 and 3. -Discharged from physical therapy as he has reached maximum benefit area Continue to transfer with nursing as able. //Ischemic Cardiomyopathy/chronic systolic CHF LVEF 35% on echo 03/2015. Denies shortness of breath. Compensated. -Continue Coreg, Imdur, enalapril. -Could consider AICD if patient is able to consent. -Currently unable to consent. -Continue to follow fluid status. //Hypertension. -Currently stable on current regimen. Continue to monitor. //Diabetes mellitus A1c 6.9. -Controlled on diet alone. //Chronic kidney disease. STAGE 4. At baseline. -Avoid nephrotoxic drugs. Monitor intermittently. //DVT prophylaxis with Coumadin Discharge Planning Discussed case with case management today. Has not been accepted to long-term care yet. Appreciate case management assistance. Pastor Lu MD Jan 18, 2016 14:49
[2016-01-18] MEDS: WARFARIN SOD 5 MG TAB PO SCH (15:28)
[2016-01-18] MEDS: ISOSORBIDE MONONITRATE 60 MG TAB PO SCH (20:29)
[2016-01-19 04:37] VITALS: BP 115/71; PULSE 73; RESP 18; TEMP 97.1; O2SAT 94
[2016-01-19] MEDS: ENALAPRIL MALEATE 2.5 MG TAB PO SCH (07:55)
[2016-01-19] MEDS: CARVEDILOL 12.5 MG TAB PO SCH ×2 (07:55→21:44)
[2016-01-19] MEDS: ATORVASTATIN 80 MG TAB PO SCH (07:56)
[2016-01-19] MEDS: EUCERIN CREAM 120 GM JAR TOPICAL SCH ×2 (07:56→21:44)
[2016-01-19] MEDS: DOCUSATE SODIUM 50 MG/SENNA 8.6 MG TAB PO SCH ×2 (07:56→21:44)
[2016-01-19] MEDS: BETAMETHASONE DIPROPIONATE 0.05% OINT 15 GM TUBE TOP SCH ×2 (07:56→21:44)
[2016-01-19] MEDS: NYSTATIN 100,000 U/GM PWD 15 GM BTL TOPICAL SCH (07:56)
[2016-01-19] MEDS: LACTULOSE SYRUP 20 GM/30 ML CUP PO SCH (07:56)
[2016-01-19 08:00] VITALS: BP 108/69; PULSE 72; RESP 20; TEMP 96.6; O2SAT 96
[2016-01-19 08:41] LABS: INTERNATIONAL NORMALIZED RATIO 2.3 RATIO; PROTHROMBIN TIME - PATIENT 24.7 SEC (9.8-11.4)
[2016-01-19] MEDS: SODIUM CHLORIDE 0.9% FLUSH 5 ML FLUSH FLUSH SCH ×2 (09:00→21:00)
[2016-01-19 12:00] VITALS: BP 147/83; PULSE 70; RESP 18; TEMP 95.5; O2SAT 96
[2016-01-19] MEDS: WARFARIN SOD 5 MG TAB PO SCH (15:57)
[2016-01-19 16:00] VITALS: BP 137/87; PULSE 75; RESP 20; TEMP 98.3; O2SAT 98
--- NOTE | 2016-01-19 17:36 | HHI.PR ---
Subjective Remarks Patient seen today around noon. Says he is feeling well. Denies any chest pain or shortness of breath. Discussed with nursing. No acute issues. Objective Vital Signs Date Time Temp Pulse Resp B/P Pulse Ox O2 Delivery O2 Flow Rate FiO2 01/19/16 16:00 98.3 75 20 137/87 98 01/19/16 12:00 95.5 70 18 147/83 96 01/19/16 08:00 96.6 72 20 108/69 96 01/19/16 04:37 97.1 73 18 115/71 94 01/18/16 23:39 97.6 73 18 118/78 93 01/18/16 19:57 97.4 77 18 136/94 95 I/O 01/18/16 01/18/16 01/18/16 01/19/16 01/19/16 01/19/16 07:00 15:00 23:00 07:00 15:00 23:00 Intake Total 100 ml 240 ml Output Total 400 ml 200 ml 200 ml 600 ml Balance 100 ml -400 ml -200 ml -200 ml -360 ml Intake Oral 100 ml 240 ml Output Urine Total 400 ml 200 ml 200 ml 600 ml # Voids 2 0 # Bowel Movements 1 0 1 Objective Remarks GENERAL: Sitting up in bed. Appears comfortable. Alert and oriented to person and place, not to date or year. Exam is unchanged from previously. SKIN: Warm and dry. HEAD: Normocephalic. EYES: No scleral icterus. No injection or drainage. NECK: Supple, trachea midline. No JVD. CARDIOVASCULAR: Regular rate and rhythm without murmurs, gallops, or rubs. RESPIRATORY: Breath sounds equal bilaterally. No accessory muscle use. GASTROINTESTINAL: Abdomen soft, non-tender, nondistended. MUSCULOSKELETAL: No cyanosis, or edema. Right below the knee amputation, healed well. No peripheral edema. No active cellulitis. Signs of chronic venous stasis. BACK: Nontender without obvious deformity. No CVA tenderness. A/P Assessment and Plan 60-year-old male hospital day 90. Admitted 10/14 with acute cortical infarct. //Bilateral CVA:MRI showed acute cortical infarct. MRA of head and neck unremarkable. //Suspected dementia - S/p ASA and Plavix. Continue with Statin, Coumadin and monitor INR/PT keep INR between 2 and 3. -Discharged from physical therapy as he has reached maximum benefit area Continue to transfer with nursing as able. //Ischemic Cardiomyopathy/chronic systolic CHF LVEF 35% on echo 03/2015. Denies shortness of breath. Compensated. -Continue Coreg, Imdur, enalapril. -Could consider AICD if patient is able to consent. -Currently unable to consent. -Continue to follow fluid status. //Hypertension. -Currently stable on current regimen. Continue to monitor. //Diabetes mellitus A1c 6.9. -Controlled on diet alone. //Chronic kidney disease. STAGE 4. At baseline. -Avoid nephrotoxic drugs. Monitor intermittently. //DVT prophylaxis with Coumadin 01/18. No acute changes. Case management working on discharge. Appreciate assistance. Discharge Planning Discussed case with case management today. Has not been accepted to long-term care yet. Appreciate case management assistance. Pastor Lu MD Jan 19, 2016 17:35
[2016-01-19 20:00] VITALS: BP 150/83; PULSE 80; RESP 17; TEMP 98.1; O2SAT 96
[2016-01-19] MEDS: ISOSORBIDE MONONITRATE 60 MG TAB PO SCH (21:44)
[2016-01-20 00:19] VITALS: BP 114/65; PULSE 71; RESP 18; TEMP 97.1; O2SAT 93
[2016-01-20 04:00] VITALS: BP 113/67; PULSE 72; RESP 18; TEMP 97.1; O2SAT 98
[2016-01-20 08:41] LABS: INTERNATIONAL NORMALIZED RATIO 2.4 RATIO; PROTHROMBIN TIME - PATIENT 26.9 SEC (9.8-11.4)
[2016-01-20 08:46] VITALS: BP 143/86; PULSE 71; RESP 18; TEMP 95.6; O2SAT 97
[2016-01-20] MEDS: CARVEDILOL 12.5 MG TAB PO SCH ×2 (10:37→22:39)
[2016-01-20] MEDS: ENALAPRIL MALEATE 2.5 MG TAB PO SCH (10:38)
[2016-01-20] MEDS: ATORVASTATIN 80 MG TAB PO SCH (10:38)
[2016-01-20] MEDS: EUCERIN CREAM 120 GM JAR TOPICAL SCH ×2 (10:40→22:45)
[2016-01-20] MEDS: BETAMETHASONE DIPROPIONATE 0.05% OINT 15 GM TUBE TOP SCH ×2 (10:40→22:44)
[2016-01-20] MEDS: NYSTATIN 100,000 U/GM PWD 15 GM BTL TOPICAL SCH (10:40)
[2016-01-20] MEDS: LACTULOSE SYRUP 20 GM/30 ML CUP PO SCH (10:41)
[2016-01-20] MEDS: DOCUSATE SODIUM 50 MG/SENNA 8.6 MG TAB PO SCH ×2 (10:41→22:38)
[2016-01-20] MEDS: SODIUM CHLORIDE 0.9% FLUSH 5 ML FLUSH FLUSH SCH ×2 (10:42→21:00)
[2016-01-20 12:39] VITALS: BP 148/91; PULSE 73; RESP 18; TEMP 97.6; O2SAT 98
--- NOTE | 2016-01-20 14:31 | HHI.PR ---
Subjective Remarks Follow up for CVA, awaiting placement. The patient is seen lying in bed, resting , easily awakens to voice. He has no medical complaints. He states he is eating well. Denies any nausea, abdominal pain, or constipation. Denies fevers or chills. Denies cough, chest pain, or shortness of breath. Vital signs stable. Objective Vitals Vital Signs Date Time Temp Pulse Resp B/P Pulse Ox O2 Delivery O2 Flow Rate FiO2 01/20/16 12:39 97.6 73 18 148/91 98 01/20/16 08:46 95.6 71 18 143/86 97 01/20/16 04:00 97.1 72 18 113/67 98 01/20/16 00:19 97.1 71 18 114/65 93 01/19/16 20:00 98.1 80 17 150/83 96 01/19/16 16:00 98.3 75 20 137/87 98 I/O 01/19/16 01/19/16 01/19/16 01/20/16 01/20/16 01/20/16 07:00 15:00 23:00 07:00 15:00 23:00 Intake Total 240 ml 240 ml 120 ml Output Total 200 ml 600 ml 200 ml 200 ml Balance -200 ml -360 ml 40 ml -80 ml Intake Oral 240 ml 240 ml 120 ml Output Urine Total 200 ml 600 ml 200 ml 200 ml # Voids 1 # Bowel Movements 1 0 Imaging Last Impressions Chest X-Ray 11/06/15 0000 Signed Impressions: Service Date/Time: Friday, November 06, 2015 11:35 - CONCLUSION: Compensated cardiomegaly, history of bypass otherwise negative. Superior most sternal wire is fractured. Didier Clay MD FACR Liver Ultrasound 10/30/15 0000 Signed Impressions: Service Date/Time: Friday, October 30, 2015 17:29 - CONCLUSION: 1. Cholelithiasis with probable gallbladder sludge and mild gallbladder distention. 2. Splenomegaly. Sameer Alexandra MD Modified Barium Swallow 10/27/15 0000 Signed Impressions: Service Date/Time: Tuesday, October 27, 2015 00:00 - CONCLUSION: Negative for penetration or aspiration. Please see speech pathology report. Tai Cohen MD Brain MRI 10/22/15 0000 Signed Impressions: Service Date/Time: September 14:38 - CONCLUSION: 1. No significant interval change is identified. There is stable restricted diffusion in the left basal ganglia representing an area of recent ischemia. There are no findings to indicate hemorrhagic transformation. The previously documented signal change within the right cerebral peduncle has nearly normalized. 2. Stable chronic white matter changes. Camacho Culp MD Neck Magnetic Resonance Angiography 10/21/15 0000 Signed Impressions: Service Date/Time: Wednesday, October 21, 2015 12:52 - CONCLUSION: . 1. Unremarkable MRA of the carotid arteries bilaterally. 2. Nonspecific possible collateral vessels in the soft tissues posterior to the right vertebral artery. The right verbal artery appears to be patent. If clinically indicated, a CTA could be performed for further evaluation. Abiodun Hall MD Head Magnetic Resonance Angiography 10/21/15 0000 Signed Impressions: Service Date/Time: Wednesday, October 21, 2015 12:52 - CONCLUSION: Unremarkable MRA of the brain. Abiodun Hall MD Head CT 10/15/152116 Signed Impressions: Service Date/Time: September 21:47 - CONCLUSION: 1. No evidence of hemorrhage or mass effect. 2. Lacunar infarct right thalamus, left basal ganglia and adjacent to the left lateral ventricular body. 3. No skull fracture seen. Daryl Varner MD Objective Remarks GENERAL: Well-nourished, well-developed elderly male patient in [facility]. SKIN: Warm and dry. No rash. HEAD: Normocephalic. Atraumatic. CARDIOVASCULAR: Regular rate and rhythm. S1, S2 noted. No murmur appreciated. RESPIRATORY: No accessory muscle use. Clear to auscultation. Breath sounds equal bilaterally. GASTROINTESTINAL: Abdomen soft, non-tender, nondistended. Normoactive bowel sounds x4. MUSCULOSKELETAL: Chronic Right BKA, well-healed. Extremities without clubbing, cyanosis, or edema. NEUROLOGICAL: Awake and alert, oriented to person and place, not month/year. No obvious cranial nerve deficits. Motor grossly within normal limits. Moves all extremities spontaneously. PSYCHIATRIC: Appropriate mood and affect; insight and judgment limited. Procedures None Medications and IVs Current Medications Medications (Trade) Dose Ordered Sig/Estuardo Route Start Time Stop Time Status Last Admin (NS Flush) 2 ml UNSCH PRN FLUSH 10/15/15 23:30 (NS Flush) 2 ml BID FLUSH 10/16/15 09:00 01/20/16 10:42 Atorvastatin Calcium 80 mg 80 mg DAILY PO 10/16/15 09:00 01/20/16 10:38 (Coumadin Consult Pharmacy) 0 ml @ 0 mls/hr UNSCH XX 10/30/15 05:30 (Tylenol) 650 mg Q4H PRN PO 10/30/15 05:30 (Tums Chew) 1,000 mg TID PRN CHEW 10/30/15 05:30 (Catapres) 0.1 mg Q6H PRN PO 10/30/15 05:30 11/07/15 06:04 (Mycostatin Powder) 1 applic DAILY TOPICAL 10/31/15 18:00 01/20/16 10:40 (Haydee-Colace) 2 tab BID PO 11/03/15 09:00 01/20/16 10:41 (Lactulose Liq) 30 ml DAILY PO 11/04/15 09:00 01/20/16 10:41 (Diprosone 0.05% Ointment) 1 applic BID TOP 12/08/15 12:30 01/20/16 10:40 (Coreg) 25 mg BID PO 12/12/15 21:00 01/20/16 10:37 (Miralax) 17 gm DAILY PRN PO 12/14/15 17:00 (Pill Splitter) 1 ea UNSCH PRN OTHER 12/15/15 09:15 (Zofran Odt) 4 mg Q4H PRN PO 12/30/15 11:00 (Imdur) 60 mg HS PO 01/11/16 21:00 01/19/16 21:44 (Vasotec) 2.5 mg DAILY PO 01/12/16 09:00 01/20/16 10:38 (Eucerin Cream) 1 applic Q12HR TOPICAL 01/13/16 21:00 01/20/16 10:40 (Coumadin) 5 mg DAILY@16 PO 01/14/16 16:00 01/19/16 15:57 Urinary Catheter: No Vascular Central Line Catheter: No A/P Problem List: (1) Cellulitis Status: Resolved (2) Ischemic cardiomyopathy Status: Chronic (3) Diabetes mellitus type 2 in obese Status: Chronic (4) S/P BKA (below knee amputation) unilateral Status: Chronic (5) Acute metabolic encephalopathy Status: Resolved (6) Bacteremia Status: Resolved (7) Chronic systolic (congestive) heart failure Status: Chronic (8) Venous stasis ulcer of left lower extremity Status: Chronic (9) CVA (cerebral vascular accident) Status: Chronic (10) Seborrheic dermatitis Status: Resolved Assessment and Plan 60-year-old male admitted 10/14 with acute cortical infarct Bilateral CVA with Suspected Dementia: MRI 10/20/15 showed Acute Cortical Infarct. MRA of head and neck unremarkable. -S/p ASA and Plavix. Continue with Statin, Coumadin and monitor INR/PT, keep INR between 2 and 3. -Discharged from physical therapy as he has reached maximum benefit here -Continue to transfer with nursing as able Ischemic Cardiomyopathy/chronic systolic CHF LVEF 35% on echo 03/2015. Denies shortness of breath. Compensated. -Continue Coreg, Imdur, enalapril. -Could consider AICD if patient is able to consent however currently unable -Continue to follow fluid status. CKD stage 4: suspect diabetic nephropathy. Chronic, stable. -Avoid nephrotoxins. -Monitor with BMP periodically Hypertension. Chronic, controlled. -Continue enalapril and carvedilol. -Continue to monitor BP and adjust antihypertensives as needed. Diabetic mellitus: Glucose was well controlled on diet alone. Discontinued all insulin. Accu-checks discontinued as patient's blood sugar well controlled, Hgb A1c 6.9. -diabetic diet Sepsis secondary to cellulitis and bacteremia. S/p IV abx. Repeat blood cultures from 10/15 and 10/30 with no growth. Resolved. Cellulitis of LLE: Chronic venous stasis ulcers on LLE. Wound cultures MSSA, Serratia marcescens. Dr. Messina/ID ff; was on Keflex and Cipro for 10 days, completed 10/26. Resolved. PAD -stable. Continue above meds DVT prophylaxis with Coumadin Discharge Planning Case management assisting with discharge planning, needs placement. Problem Qualifiers (1) Cellulitis: oRsaura Patel PA-C Jan 20, 2016 14:31
[2016-01-20] MEDS: WARFARIN SOD 5 MG TAB PO SCH (16:00)
[2016-01-20 16:17] VITALS: BP 121/73; PULSE 74; RESP 16; TEMP 96.8; O2SAT 98
[2016-01-20 20:00] VITALS: BP 121/71; PULSE 72; RESP 20; TEMP 96.5; O2SAT 96
[2016-01-20] MEDS: ISOSORBIDE MONONITRATE 60 MG TAB PO SCH (22:39)
[2016-01-21 00:14] VITALS: BP_SYST 65; PULSE 73; RESP 20; TEMP 96.1; O2SAT 97
[2016-01-21 04:00] VITALS: BP 119/76; PULSE 73; RESP 20; TEMP 96.6; O2SAT 96
[2016-01-21 07:48] LABS: INTERNATIONAL NORMALIZED RATIO 2.2 RATIO; PROTHROMBIN TIME - PATIENT 24.3 SEC (9.8-11.4)
[2016-01-21 08:06] VITALS: BP 101/64; PULSE 72; RESP 18; TEMP 96.8; O2SAT 96
[2016-01-21] MEDS: CARVEDILOL 12.5 MG TAB PO SCH ×2 (10:22→21:00)
[2016-01-21] MEDS: LACTULOSE SYRUP 20 GM/30 ML CUP PO SCH (10:22)
[2016-01-21] MEDS: DOCUSATE SODIUM 50 MG/SENNA 8.6 MG TAB PO SCH ×2 (10:23→21:00)
[2016-01-21] MEDS: ENALAPRIL MALEATE 2.5 MG TAB PO SCH (10:23)
[2016-01-21] MEDS: ATORVASTATIN 80 MG TAB PO SCH (10:23)
[2016-01-21] MEDS: EUCERIN CREAM 120 GM JAR TOPICAL SCH ×2 (10:24→23:50)
[2016-01-21] MEDS: NYSTATIN 100,000 U/GM PWD 15 GM BTL TOPICAL SCH (10:24)
[2016-01-21] MEDS: SODIUM CHLORIDE 0.9% FLUSH 5 ML FLUSH FLUSH SCH ×2 (10:24→21:00)
[2016-01-21] MEDS: BETAMETHASONE DIPROPIONATE 0.05% OINT 15 GM TUBE TOP SCH ×2 (10:24→23:51)
--- NOTE | 2016-01-21 11:13 | HHI.PR ---
Subjective Remarks Follow up for CVA, awaiting placement. The patient states he feels "lousy" today , when asked why, he states because he's not taking any medications because he' s nauseous. Denies fever/chills, vomiting, abdominal pain, constipation or diarrhea. Last BM 2 days ago, patient states this is normal for him. RN reports he did refuse medications today even after offering zofran for his nausea. LANGUAGE ASSISTANT also reporting the patient only wants to eat soup, refusing to eat anything else. No other medical complaints reported at this time. Objective Vitals Vital Signs Date Time Temp Pulse Resp B/P Pulse Ox O2 Delivery O2 Flow Rate FiO2 01/21/16 08:06 96.8 72 18 101/64 96 01/21/16 04:00 96.6 73 20 119/76 96 01/21/16 00:14 96.1 73 20 65/ 97 01/20/16 20:00 96.5 72 20 121/71 96 01/20/16 16:17 96.8 74 16 121/73 98 01/20/16 12:39 97.6 73 18 148/91 98 I/O 01/20/16 01/20/16 01/20/16 01/21/16 01/21/16 01/21/16 07:00 15:00 23:00 07:00 15:00 23:00 Intake Total 120 ml 240 ml 240 ml 60 ml Output Total 200 ml 200 ml Balance -80 ml 40 ml 240 ml 60 ml Intake Oral 120 ml 240 ml 240 ml 60 ml Output Urine Total 200 ml 200 ml # Voids 1 1 1 # Bowel Movements 0 0 0 Imaging Last Impressions Chest X-Ray 11/06/15 0000 Signed Impressions: Service Date/Time: Friday, November 06, 2015 11:35 - CONCLUSION: Compensated cardiomegaly, history of bypass otherwise negative. Superior most sternal wire is fractured. Didier Clay MD FACR Liver Ultrasound 10/30/15 0000 Signed Impressions: Service Date/Time: Friday, October 30, 2015 17:29 - CONCLUSION: 1. Cholelithiasis with probable gallbladder sludge and mild gallbladder distention. 2. Splenomegaly. Sameer Alexandra MD Modified Barium Swallow 10/27/15 0000 Signed Impressions: Service Date/Time: Tuesday, October 27, 2015 00:00 - CONCLUSION: Negative for penetration or aspiration. Please see speech pathology report. Tai Cohen MD Brain MRI 10/22/15 0000 Signed Impressions: Service Date/Time: September 14:38 - CONCLUSION: 1. No significant interval change is identified. There is stable restricted diffusion in the left basal ganglia representing an area of recent ischemia. There are no findings to indicate hemorrhagic transformation. The previously documented signal change within the right cerebral peduncle has nearly normalized. 2. Stable chronic white matter changes. Camacho Culp MD Neck Magnetic Resonance Angiography 10/21/15 0000 Signed Impressions: Service Date/Time: Wednesday, October 21, 2015 12:52 - CONCLUSION: . 1. Unremarkable MRA of the carotid arteries bilaterally. 2. Nonspecific possible collateral vessels in the soft tissues posterior to the right vertebral artery. The right verbal artery appears to be patent. If clinically indicated, a CTA could be performed for further evaluation. Abiodun Hall MD Head Magnetic Resonance Angiography 10/21/15 Signed Impressions: Service Date/Time: Wednesday, October 21, 2015 12:52 - CONCLUSION: Unremarkable MRA of the brain. Abiodun Hall MD Head CT 10/15/152116 Signed Impressions: Service Date/Time: September 21:47 - CONCLUSION: 1. No evidence of hemorrhage or mass effect. 2. Lacunar infarct right thalamus, left basal ganglia and adjacent to the left lateral ventricular body. 3. No skull fracture seen. Daryl Varner MD Objective Remarks GENERAL: Well-nourished, well-developed elderly male patient in [facility]. SKIN: Warm and dry. No rash. HEAD: Normocephalic. Atraumatic. CARDIOVASCULAR: Regular rate and rhythm. S1, S2 noted. No murmur appreciated. RESPIRATORY: No accessory muscle use. Clear to auscultation. Breath sounds equal bilaterally. GASTROINTESTINAL: Abdomen soft, non-tender, nondistended. Normoactive bowel sounds x4. MUSCULOSKELETAL: Chronic Right BKA, well-healed. Extremities without clubbing, cyanosis, or edema. NEUROLOGICAL: Awake and alert, oriented to person and place, not month/year. No obvious cranial nerve deficits. Motor grossly within normal limits. Moves all extremities spontaneously. PSYCHIATRIC: Appropriate mood and affect; insight and judgment limited. Procedures None Medications and IVs Current Medications Medications (Trade) Dose Ordered Sig/Estuardo Route Start Time Stop Time Status Last Admin (NS Flush) 2 ml UNSCH PRN FLUSH 10/15/15 23:30 (NS Flush) 2 ml BID FLUSH 10/16/15 09:00 01/21/16 10:24 Atorvastatin Calcium 80 mg 80 mg DAILY PO 10/16/15 09:00 01/21/16 10:23 (Coumadin Consult Pharmacy) 0 ml @ 0 mls/hr UNSCH XX 10/30/15 05:30 (Tylenol) 650 mg Q4H PRN PO 10/30/15 05:30 (Tums Chew) 1,000 mg TID PRN CHEW 10/30/15 05:30 (Catapres) 0.1 mg Q6H PRN PO 10/30/15 05:30 11/07/15 06:04 (Mycostatin Powder) 1 applic DAILY TOPICAL 10/31/15 18:00 01/21/16 10:24 (Haydee-Colace) 2 tab BID PO 11/03/15 09:00 01/21/16 10:23 (Lactulose Liq) 30 ml DAILY PO 11/04/15 09:00 01/21/16 10:22 (Diprosone 0.05% Ointment) 1 applic BID TOP 12/08/15 12:30 01/21/16 10:24 (Coreg) 25 mg BID PO 12/12/15 21:00 01/21/16 10:22 (Miralax) 17 gm DAILY PRN PO 12/14/15 17:00 (Pill Splitter) 1 ea UNSCH PRN OTHER 12/15/15 09:15 (Zofran Odt) 4 mg Q4H PRN PO 12/30/15 11:00 (Imdur) 60 mg HS PO 01/11/16 21:00 01/20/16 22:39 (Vasotec) 2.5 mg DAILY PO 01/12/16 09:00 01/21/16 10:23 (Eucerin Cream) 1 applic Q12HR TOPICAL 01/13/16 21:00 01/21/16 10:24 (Coumadin) 5 mg DAILY@16 PO 01/14/16 16:00 01/19/16 15:57 Urinary Catheter: No Vascular Central Line Catheter: No A/P Problem List: (1) Cellulitis Status: Resolved (2) Ischemic cardiomyopathy Status: Chronic (3) Diabetes mellitus type 2 in obese Status: Chronic (4) S/P BKA (below knee amputation) unilateral Status: Chronic (5) Acute metabolic encephalopathy Status: Resolved (6) Bacteremia Status: Resolved (7) Chronic systolic (congestive) heart failure Status: Chronic (8) Venous stasis ulcer of left lower extremity Status: Chronic (9) CVA (cerebral vascular accident) Status: Chronic (10) Seborrheic dermatitis Status: Resolved Assessment and Plan 60-year-old male admitted 10/14 with acute cortical infarct Bilateral CVA with Suspected Dementia: MRI 10/20/15 showed Acute Cortical Infarct. MRA of head and neck unremarkable. -S/p ASA and Plavix. Continue with Statin, Coumadin and monitor INR/PT, keep INR between 2 and 3. -Discharged from physical therapy as he has reached maximum benefit here -Continue to transfer with nursing as able Ischemic Cardiomyopathy/chronic systolic CHF LVEF 35% on echo 03/2015. Denies shortness of breath. Compensated. -Continue Coreg, Imdur, enalapril. -Could consider AICD if patient is able to consent however currently unable -Continue to follow fluid status. CKD stage 4: suspect diabetic nephropathy. Chronic, stable. -Avoid nephrotoxins. -Monitor with BMP periodically Hypertension. Chronic, controlled. -Continue enalapril and carvedilol. -Continue to monitor BP and adjust antihypertensives as needed. Diabetic mellitus: Glucose was well controlled on diet alone. Discontinued all insulin. Accu-checks discontinued as patient's blood sugar well controlled, Hgb A1c 6.9. -diabetic diet Sepsis secondary to cellulitis and bacteremia. S/p IV abx. Repeat blood cultures from 10/15 and 10/30 with no growth. Resolved. Cellulitis of LLE: Chronic venous stasis ulcers on LLE. Wound cultures MSSA, Serratia marcescens. Dr. Messina/ID ff; was on Keflex and Cipro for 10 days, completed 10/26. Resolved. PAD -stable. Continue above meds Poor Oral Intake: new today 01/20. Discussed with RN and LANGUAGE ASSISTANT. Patient only wants to eat soup and is refusing all medications. Reinforced to the patient that the medications are very important for his heart however still refusing. -check CBC/BMP tomorrow am -monitor INR, may need to give Lovenox, today INR therapeutic if patient continues to refuse Coumadin -consider consulting psychiatry DVT prophylaxis with Coumadin Discharge Planning Case management assisting with discharge planning, needs placement. Problem Qualifiers (1) Cellulitis: Rosaura Patel PA-C Jan 21, 2016 11:13
[2016-01-21 12:35] VITALS: BP 140/86; PULSE 77; RESP 19; TEMP 97.4; O2SAT 96
[2016-01-21 15:38] VITALS: BP 124/83; PULSE 73; RESP 19; TEMP 95.7; O2SAT 96
[2016-01-21] MEDS: WARFARIN SOD 5 MG TAB PO SCH (16:00)
[2016-01-21 20:00] VITALS: BP 168/95; PULSE 86; RESP 20; TEMP 96.5; O2SAT 99
[2016-01-21] MEDS: ISOSORBIDE MONONITRATE 60 MG TAB PO SCH (21:00)
[2016-01-22] VITALS: BP 156/93; PULSE 75; RESP 18; TEMP 97; O2SAT 98
[2016-01-22 04:00] VITALS: BP 157/89; PULSE 73; RESP 18; TEMP 96.3; O2SAT 97
[2016-01-22 08:06] VITALS: BP 145/95; PULSE 75; RESP 19; TEMP 95.1; O2SAT 96
[2016-01-22 08:18] LABS: AUTOMATED NEUTROPHIL # 6.3 TH/MM3 (1.8-7.7); BASOPHIL % 0.4 % (0.0-2.0); EOSINOPHIL # 0.3 TH/MM3 (0-0.4); EOSINOPHIL % 3.9 % (0.0-4.0); HEMATOCRIT 33.8 % (39.0-51.0); HEMO FLAGS DIFF FINAL; LYMPH % 16.9 % (9.0-44.0); LYMPHOCYTE # 1.5 TH/MM3 (1.0-4.8); MEAN CELL VOLUME 78.9 FL (80.0-100.0); MEAN CORPUSCULAR HEMOGLOBIN 27.6 PG (27.0-34.0); MONO % 8.5 % (0.0-8.0); NEUT % 70.3 % (16.0-70.0); PLATELET COUNT 167 TH/MM3 (150-450); RED BLOOD COUNT 4.29 MIL/MM3 (4.50-5.90); RED CELL DISTRIBUTION WIDTH 16.7 % (11.6-17.2)
[2016-01-22] MEDS: CARVEDILOL 12.5 MG TAB PO SCH ×3 (08:21→22:22)
[2016-01-22] MEDS: SODIUM CHLORIDE 0.9% FLUSH 5 ML FLUSH FLUSH SCH ×2 (08:21→21:00)
[2016-01-22] MEDS: LACTULOSE SYRUP 20 GM/30 ML CUP PO SCH (08:21)
[2016-01-22] MEDS: ATORVASTATIN 80 MG TAB PO SCH ×2 (08:21→11:49)
[2016-01-22] MEDS: DOCUSATE SODIUM 50 MG/SENNA 8.6 MG TAB PO SCH ×3 (08:21→21:00)
[2016-01-22] MEDS: ENALAPRIL MALEATE 2.5 MG TAB PO SCH ×2 (08:22→11:49)
[2016-01-22] MEDS: BETAMETHASONE DIPROPIONATE 0.05% OINT 15 GM TUBE TOP SCH ×2 (08:23→21:00)
[2016-01-22] MEDS: EUCERIN CREAM 120 GM JAR TOPICAL SCH ×3 (08:24→21:00)
[2016-01-22] MEDS: NYSTATIN 100,000 U/GM PWD 15 GM BTL TOPICAL SCH (08:24)
[2016-01-22 08:50] LABS: BICARBONATE 24.7 MEQ/L (21.0-32.0)
[2016-01-22 11:31] LABS: PROTHROMBIN TIME - PATIENT 21.2 SEC (9.8-11.4)
[2016-01-22 11:37] VITALS: BP 150/85; PULSE 77; RESP 20; TEMP 97.2; O2SAT 94
[2016-01-22] MEDS: WARFARIN SOD 5 MG TAB PO SCH (15:10)
[2016-01-22 15:48] VITALS: BP 120/75; PULSE 76; RESP 18; TEMP 97.2; O2SAT 94
[2016-01-22 20:00] VITALS: BP 130/73; PULSE 78; RESP 18; TEMP 98.6; O2SAT 97
--- NOTE | 2016-01-22 22:09 | HHI.PR ---
Subjective Remarks patient seen today around 11 AM. Discussed with nursing. He has been refusing his medications. I discussed this further with patient. He says he is refusing his medications because he has an uncomfortable feeling in his lower abdomen in the suprapubic region. He denies any difficulty urinating. Denies any dysuria. Bladder scan ordered and discussed with nursing. No bowel movement since 01/18. discussed with patient that in his medications are not causing any uncomfortable feeling in his lower abdomen, and he agreed to take his medications. He took all his medications this morning except for lactulose. Cathartics ordered. Objective Vital Signs Date Time Temp Pulse Resp B/P Pulse Ox O2 Delivery O2 Flow Rate FiO2 01/22/16 20:00 98.6 78 18 130/73 97 01/22/16 15:48 97.2 76 18 120/75 94 01/22/16 11:37 97.2 77 20 150/85 94 01/22/16 08:06 95.1 75 19 145/95 96 01/22/16 04:00 96.3 73 18 157/89 97 01/22/16 00:00 97.0 75 18 156/93 98 I/O 01/21/16 01/21/16 01/21/16 01/22/16 01/22/16 01/22/16 07:00 15:00 23:00 07:00 15:00 23:00 Intake Total 60 ml 360 ml 120 ml 120 ml 360 ml Output Total 200 ml 325 ml 200 ml Balance 60 ml 160 ml 120 ml 120 ml 35 ml -200 ml Intake Oral 60 ml 360 ml 120 ml 120 ml 360 ml Output Urine Total 200 ml 325 ml 200 ml # Voids 1 0 0 1 2 # Bowel Movements 0 0 0 Result Diagram: 01/22/1630 01/22/16 0630 Objective Remarks GENERAL: Sitting up in bed. Appears comfortable. Alert and oriented to person and place, not to date or year. SKIN: Warm and dry. HEAD: Normocephalic. EYES: No scleral icterus. No injection or drainage. NECK: Supple, trachea midline. No JVD. CARDIOVASCULAR: Regular rate and rhythm without murmurs, gallops, or rubs. RESPIRATORY: Breath sounds equal bilaterally. No accessory muscle use. GASTROINTESTINAL: Abdomen soft, non-tender, nondistended. positive bowel sounds. No rebound or guarding. MUSCULOSKELETAL: No cyanosis, or edema. Right below the knee amputation, healed well. No peripheral edema. No active cellulitis. Signs of chronic venous stasis. BACK: Nontender without obvious deformity. No CVA tenderness. A/P Assessment and Plan 60-year-old male hospital day 90. Admitted 10/14 with acute cortical infarct. //Bilateral CVA:MRI showed acute cortical infarct. MRA of head and neck unremarkable. //Suspected dementia - S/p ASA and Plavix. Continue with Statin, Coumadin and monitor INR/PT keep INR between 2 and 3. -Discharged from physical therapy as he has reached maximum benefit area Continue to transfer with nursing as able. //Ischemic Cardiomyopathy/chronic systolic CHF LVEF 35% on echo 03/2015. Denies shortness of breath. Compensated. -Continue Coreg, Imdur, enalapril. -Could consider AICD if patient is able to consent. -Currently unable to consent. -Continue to follow fluid status. //Hypertension. -Currently stable on current regimen. Continue to monitor. //Diabetes mellitus A1c 6.9. -Controlled on diet alone. //Chronic kidney disease. STAGE 4. At baseline. -Avoid nephrotoxic drugs. Monitor intermittently. //patient refusing medications on 01/21. Resolved in the morning after reasoning with the patient.refusing further medications. Patient does have history of agitation and psychotic behavior in the past. We will start Seroquel //lower abdominal pain. Benign exam.. possibly secondary to constipation. cathartics ordered.Ordered bladder scan, post void residualnot resulted yet. //DVT prophylaxis with Coumadin 01/18. No acute changes. Case management working on discharge. Appreciate assistance. Discharge Planning Has not been accepted to long-term care yet. Appreciate case management assistance. Pastor Lu MD Jan 22, 2016 22:09
[2016-01-22] MEDS ORDERED: DOCUSATE SODIUM 50 MG/SENNA 8.6 MG TAB PO ONE (22:15)
[2016-01-22] MEDS: ISOSORBIDE MONONITRATE 60 MG TAB PO SCH (22:22)
[2016-01-23 01:00] VITALS: BP 71/55; PULSE 80; RESP 20; TEMP 97; O2SAT 95
[2016-01-23 06:00] VITALS: BP 107/70; PULSE 74; RESP 20; TEMP 98; O2SAT 96
[2016-01-23 08:00] VITALS: BP 97/60; PULSE 74; RESP 18; TEMP 97.2; O2SAT 95
[2016-01-23] MEDS: CARVEDILOL 12.5 MG TAB PO SCH ×2 (08:07→21:13)
[2016-01-23] MEDS: ENALAPRIL MALEATE 2.5 MG TAB PO SCH (08:07)
[2016-01-23] MEDS: ATORVASTATIN 80 MG TAB PO SCH (08:09)
[2016-01-23] MEDS: BETAMETHASONE DIPROPIONATE 0.05% OINT 15 GM TUBE TOP SCH ×2 (08:10→21:15)
[2016-01-23] MEDS: DOCUSATE SODIUM 50 MG/SENNA 8.6 MG TAB PO SCH ×2 (08:10→21:13)
[2016-01-23] MEDS: NYSTATIN 100,000 U/GM PWD 15 GM BTL TOPICAL SCH (08:10)
[2016-01-23] MEDS: LACTULOSE SYRUP 20 GM/30 ML CUP PO SCH ×2 (08:10→08:15)
[2016-01-23] MEDS: QUEtiapine FUMARATE 25 MG TAB PO SCH ×2 (08:10→21:13)
[2016-01-23] MEDS: EUCERIN CREAM 120 GM JAR TOPICAL SCH ×2 (08:10→21:14)
[2016-01-23] MEDS: SODIUM CHLORIDE 0.9% FLUSH 5 ML FLUSH FLUSH SCH ×2 (08:15→21:00)
[2016-01-23 09:47] LABS: INTERNATIONAL NORMALIZED RATIO 1.8 RATIO; PROTHROMBIN TIME - PATIENT 19.7 SEC (9.8-11.4)
[2016-01-23 12:00] VITALS: BP 95/58; PULSE 71; RESP 17; TEMP 97.4; O2SAT 98
--- NOTE | 2016-01-23 14:54 | HHI.PR ---
Subjective Remarks Follow for CVA No overnight events, no complaints. Mental status about the same, no improvement. Objective Vitals Vital Signs Date Time Temp Pulse Resp B/P Pulse Ox O2 Delivery O2 Flow Rate FiO2 01/23/16 12:00 97.4 71 17 95/58 98 01/23/16 08:00 97.2 74 18 97/60 95 01/23/16 06:00 98.0 74 20 107/70 96 01/23/16 01:00 97.0 80 20 71/55 95 01/22/16 20:00 98.6 78 18 130/73 97 01/22/16 15:48 97.2 76 18 120/75 94 I/O 01/22/16 01/22/16 01/22/16 01/23/16 01/23/16 01/23/16 07:00 15:00 23:00 07:00 15:00 23:00 Intake Total 120 ml 360 ml 370 ml Output Total 325 ml 200 ml Balance 120 ml 35 ml -200 ml 370 ml Intake Oral 120 ml 360 ml 370 ml Output Urine Total 325 ml 200 ml # Voids 1 2 3 # Bowel Movements 0 Result Diagram: 01/22/1630 01/22/16 0630 Objective Remarks GENERAL: Not in distress, calm. CARDIOVASCULAR: Regular rate and rhythm without murmurs. RESPIRATORY: Clear to auscultation. Breath sounds equal bilaterally. No wheezes. GASTROINTESTINAL: Abdomen soft, non-tender MUSCULOSKELETAL: right BKA, Extremities without edema. NEURO: Alert & Oriented to person, and place but not to time, moves extremities. Sleeping but easily arousable. Procedures None A/P Problem List: (1) Cellulitis Status: Resolved (2) Ischemic cardiomyopathy Status: Chronic (3) Diabetes mellitus type 2 in obese Status: Chronic (4) S/P BKA (below knee amputation) unilateral Status: Chronic (5) Acute metabolic encephalopathy Status: Resolved (6) Bacteremia Status: Resolved (7) Chronic systolic (congestive) heart failure Status: Chronic (8) Venous stasis ulcer of left lower extremity Status: Chronic (9) CVA (cerebral vascular accident) Status: Chronic (10) Seborrheic dermatitis Status: Resolved Assessment and Plan 60-year-old male hospital day 90. Admitted 10/14 with acute cortical infarct. Bilateral CVA:MRI showed acute cortical infarct. MRA of head and neck unremarkable. Suspected dementia - S/p ASA and Plavix. Continue with Statin, Coumadin and monitor INR/PT keep INR between 2 and 3. Subtherapeutic today. -Discharged from physical therapy as he has reached maximum benefit area Continue to transfer with nursing as able. Ischemic Cardiomyopathy/chronic systolic CHF LVEF 35% on echo 03/2015. Denies shortness of breath. Compensated. -Continue Coreg, Imdur, enalapril. -Could consider AICD if patient is able to consent. -Currently unable to consent. -Continue to follow fluid status. Hypertension. -Currently stable on current regimen. Continue to monitor. Diabetes mellitus A1c 6.9. -Controlled on diet alone. Chronic kidney disease. STAGE 4. At baseline. -Avoid nephrotoxic drugs. Monitor intermittently. Agitation and psychotic behavior-patient sometimes refusing medications, continue Seroquel for now. lower abdominal pain. Benign exam, resolved DVT prophylaxis with Coumadin Discharge Planning Patient will need long-term care, case management aware barriers to discharge. Problem Qualifiers (1) Cellulitis: Marino Benitez MD Jan 23, 2016 14:53
[2016-01-23] MEDS: WARFARIN SOD 5 MG TAB PO SCH (15:54)
[2016-01-23 16:00] VITALS: BP 127/79; PULSE 73; RESP 17; TEMP 96.6; O2SAT 92
[2016-01-23] MEDS ORDERED: WARFARIN SOD 1 MG TAB PO ONE (16:00)
[2016-01-23 20:00] VITALS: BP 163/103; PULSE 76; RESP 18; TEMP 97; O2SAT 97
[2016-01-23] MEDS: ISOSORBIDE MONONITRATE 60 MG TAB PO SCH (21:13)
[2016-01-23] MEDS: cloNIDine HCL 0.1 MG TAB PO PRN (21:13)
[2016-01-24 00:50] VITALS: BP 85/57; PULSE 68; RESP 20; TEMP 97.2; O2SAT 93
[2016-01-24 04:00] VITALS: BP 127/78; PULSE 70; RESP 18; TEMP 98; O2SAT 94
[2016-01-24 07:43] LABS: INTERNATIONAL NORMALIZED RATIO 1.9 RATIO; PROTHROMBIN TIME - PATIENT 20.8 SEC (9.8-11.4)
[2016-01-24] MEDS: SODIUM CHLORIDE 0.9% FLUSH 5 ML FLUSH FLUSH SCH ×2 (07:57→21:10)
[2016-01-24] MEDS: CARVEDILOL 12.5 MG TAB PO SCH ×2 (07:58→21:10)
[2016-01-24] MEDS: QUEtiapine FUMARATE 25 MG TAB PO SCH ×2 (07:58→21:10)
[2016-01-24] MEDS: ENALAPRIL MALEATE 2.5 MG TAB PO SCH (07:58)
[2016-01-24] MEDS: LACTULOSE SYRUP 20 GM/30 ML CUP PO SCH (07:58)
[2016-01-24] MEDS: DOCUSATE SODIUM 50 MG/SENNA 8.6 MG TAB PO SCH ×2 (07:59→21:10)
[2016-01-24] MEDS: ATORVASTATIN 80 MG TAB PO SCH (07:59)
[2016-01-24 08:00] VITALS: BP 138/86; PULSE 61; RESP 18; TEMP 98.2; O2SAT 99
[2016-01-24] MEDS: BETAMETHASONE DIPROPIONATE 0.05% OINT 15 GM TUBE TOP SCH ×2 (08:06→21:11)
[2016-01-24] MEDS: NYSTATIN 100,000 U/GM PWD 15 GM BTL TOPICAL SCH (08:06)
[2016-01-24] MEDS: EUCERIN CREAM 120 GM JAR TOPICAL SCH ×2 (08:06→21:11)
--- NOTE | 2016-01-24 11:15 | HHI.PR ---
Subjective Remarks Follow-up for CVA. The patient has no acute complaints. He denies any pain. He states he's been eating and drinking well. Denies any abdominal discomfort. Discussed with RN, the patient had a bowel movement this morning, no other issues. Objective Vitals Vital Signs Date Time Temp Pulse Resp B/P Pulse Ox O2 Delivery O2 Flow Rate FiO2 01/24/16 08:00 98.2 61 18 138/86 99 01/24/16 04:00 98.0 70 18 127/78 94 01/24/16 00:50 97.2 68 20 85/57 93 01/23/16 20:00 97.0 76 18 163/103 97 01/23/16 16:00 96.6 73 17 127/79 92 01/23/16 12:00 97.4 71 17 95/58 98 I/O 01/23/16 01/23/16 01/23/16 01/24/16 01/24/16 01/24/16 07:00 15:00 23:00 07:00 15:00 23:00 Intake Total 370 ml 200 ml Balance 370 ml 200 ml Intake Oral 370 ml 200 ml # Voids 3 1 Result Diagram: 01/22/1662901/22/16 0630 Objective Remarks GENERAL: Well-developed well-nourished. In no acute distress. SKIN: Warm and dry. Scaly skin of the face. HEENT: Normocephalic. Pupils equal and round. CARDIOVASCULAR: Regular rate and rhythm. No murmur appreciated. RESPIRATORY: No accessory muscle use. Clear to auscultation. Breath sounds equal bilaterally. GASTROINTESTINAL: Abdomen soft, non-tender, nondistended. Bowel sounds x4. MUSCULOSKELETAL: Right BKA. No clubbing or cyanosis. No edema. NEUROLOGICAL: Awake and alert. Moves upper and lower extremities spontaneously. Normal speech. PSYCHIATRIC: Pleasantly confused mood and affect; insight and judgment poor. Procedures None A/P Problem List: (1) Cellulitis Status: Resolved (2) Ischemic cardiomyopathy Status: Chronic (3) Diabetes mellitus type 2 in obese Status: Chronic (4) S/P BKA (below knee amputation) unilateral Status: Chronic (5) Acute metabolic encephalopathy Status: Resolved (6) Bacteremia Status: Resolved (7) Chronic systolic (congestive) heart failure Status: Chronic (8) Venous stasis ulcer of left lower extremity Status: Chronic (9) CVA (cerebral vascular accident) Status: Chronic (10) Seborrheic dermatitis Status: Resolved Assessment and Plan 60-year-old male with Admitted 10/14 with acute cortical infarct - Bilateral CVA:MRI showed acute cortical infarct. MRA of head and neck unremarkable. Neurology following. S/p ASA and Plavix. -Continue with Statin. -Continue Coumadin 3 mg daily and monitor INR/PT keep INR between 2 and 3, pharmacy consulted for assistance with management. -PT signed off. Continue OT and transfer with nursing as able Ischemic Cardiomyopathy/chronic systolic CHF LVEF 35% on echo 03/2015. Denies shortness of breath. Compensated. -Continue Coreg, Imdur, enalapril. -Could consider AICD if patient is able to consent. -Currently unable to consent. -Fluid and sodium restrictions, follow volume status. 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 -Avoid nephrotoxins. -Monitor BMP intermittently - Diabetic mellitus - Glucose was well controlled. We discontinued all insulin. -accu-checks discontinued as patient's blood sugar well controlled and Hgb A1c 6.9. -continue diet control - PAD -stable. Continue above meds Intermittent agitation -tolerating Seroquel Constipation-on cathartics and laxity of daily. MiraLAX as needed. -Bowel movement 01/23 - DVT prophylaxis with Coumadin Discharge Planning Discharge to SNF when arranged. Problem Qualifiers (1) Cellulitis: (2) S/P BKA (below knee amputation) unilateral: Qualified Code: Z89.511 - S/P BKA (below knee amputation) unilateral, right (3) CVA (cerebral vascular accident): Qualified Code: I63.9 - Cerebrovascular accident (CVA), unspecified mechanism Lars Rich Jan 24, 2016 11:15
[2016-01-24 12:00] VITALS: BP 93/58; PULSE 73; RESP 18; TEMP 96.4; O2SAT 98
[2016-01-24] MEDS: WARFARIN SOD 5 MG TAB PO SCH (15:41)
[2016-01-24 16:00] VITALS: BP 95/64; PULSE 81; RESP 18; TEMP 98; O2SAT 99
[2016-01-24] MEDS ORDERED: WARFARIN SOD 1 MG TAB PO ONE (16:00)
[2016-01-24] MEDS: ISOSORBIDE MONONITRATE 60 MG TAB PO SCH (21:10)
[2016-01-25] VITALS (7 sets, daily range): BP systolic 123–139; BP diastolic 74–88; PULSE 68–86; RESP 16–20; TEMP 96.4–98.7; O2SAT 97–99
[2016-01-25] MEDS: DOCUSATE SODIUM 50 MG/SENNA 8.6 MG TAB PO SCH ×2 (09:01→20:32)
[2016-01-25] MEDS: LACTULOSE SYRUP 20 GM/30 ML CUP PO SCH (09:01)
[2016-01-25] MEDS: ENALAPRIL MALEATE 2.5 MG TAB PO SCH (09:01)
[2016-01-25] MEDS: ATORVASTATIN 80 MG TAB PO SCH (09:01)
[2016-01-25] MEDS: QUEtiapine FUMARATE 25 MG TAB PO SCH ×2 (09:01→20:32)
[2016-01-25] MEDS: CARVEDILOL 12.5 MG TAB PO SCH ×2 (09:01→20:32)
[2016-01-25 09:34] LABS: INTERNATIONAL NORMALIZED RATIO 2.3 RATIO; PROTHROMBIN TIME - PATIENT 24.9 SEC (9.8-11.4)
--- NOTE | 2016-01-25 14:23 | HHI.PR ---
Subjective Remarks Follow up for CVA, awaiting placement. The patient has no complaints today. Denies any headache, lightheadedness, chest pain, cough, shortness of breath, or abdominal complaints. He reports a BM last night, stool formed, no diarrhea. He is eating well and taking his medications per the nurse. Vital signs stable. Objective Vitals Vital Signs Date Time Temp Pulse Resp B/P Pulse Ox O2 Delivery O2 Flow Rate FiO2 01/25/16 12:04 96.8 68 18 126/83 99 01/25/16 07:29 96.4 72 20 136/88 99 01/25/16 04:00 97.0 79 18 139/86 97 01/25/16 02:00 97.0 79 18 139/86 97 01/25/16 00:00 98.7 86 16 131/74 98 01/24/16 16:00 98.0 81 18 95/64 99 I/O 01/24/16 01/24/16 01/24/16 01/25/16 01/25/16 01/25/16 07:00 15:00 23:00 07:00 15:00 23:00 Intake Total 680 ml 175 ml Balance 680 ml 175 ml Intake Oral 680 ml 175 ml # Voids 1 1 0 # Bowel Movements 1 1 Result Diagram: 01/22/1630 01/22/16 0630 Objective Remarks GENERAL: Well-nourished, well-developed elderly male patient in [facility]. SKIN: Warm and dry. No rash. HEAD: Normocephalic. Atraumatic. CARDIOVASCULAR: Regular rate and rhythm. S1, S2 noted. No murmur appreciated. RESPIRATORY: No accessory muscle use. Clear to auscultation. Breath sounds equal bilaterally. GASTROINTESTINAL: Abdomen soft, non-tender, nondistended. Normoactive bowel sounds x4. MUSCULOSKELETAL: Chronic Right BKA, well-healed. Extremities without clubbing, cyanosis, or edema. NEUROLOGICAL: Awake and alert, oriented to person and place, not month/year. No obvious cranial nerve deficits. Motor grossly within normal limits. Moves all extremities spontaneously. PSYCHIATRIC: Appropriate mood and affect; insight and judgment limited. Procedures None Medications and IVs Current Medications Medications (Trade) Dose Ordered Sig/Estuardo Route Start Time Stop Time Status Last Admin (NS Flush) 2 ml UNSCH PRN FLUSH 10/15/15 23:30 (NS Flush) 2 ml BID FLUSH 10/16/15 09:00 01/24/16 21:10 Atorvastatin Calcium 80 mg 80 mg DAILY PO 10/16/15 09:00 01/25/16 09:01 (Coumadin Consult Pharmacy) 0 ml @ 0 mls/hr UNSCH XX 10/30/15 05:30 (Tylenol) 650 mg Q4H PRN PO 10/30/15 05:30 (Tums Chew) 1,000 mg TID PRN CHEW 10/30/15 05:30 (Catapres) 0.1 mg Q6H PRN PO 10/30/15 05:30 01/23/16 21:13 (Mycostatin Powder) 1 applic DAILY TOPICAL 10/31/15 18:00 01/24/16 08:06 (Haydee-Colace) 2 tab BID PO 11/03/15 09:00 01/25/16 09:01 (Lactulose Liq) 30 ml DAILY PO 11/04/15 09:00 01/25/16 09:01 (Diprosone 0.05% Ointment) 1 applic BID TOP 12/08/15 12:30 01/24/16 21:11 (Coreg) 25 mg BID PO 12/12/15 21:00 01/25/16 09:01 (Miralax) 17 gm DAILY PRN PO 12/14/15 17:00 01/24/16 07:59 (Pill Splitter) 1 ea UNSCH PRN OTHER 12/15/15 09:15 (Zofran Odt) 4 mg Q4H PRN PO 12/30/15 11:00 (Imdur) 60 mg HS PO 01/11/16 21:00 01/24/16 21:10 (Vasotec) 2.5 mg DAILY PO 01/12/16 09:00 01/25/16 09:01 (Eucerin Cream) 1 applic Q12HR TOPICAL 01/13/16 21:00 01/24/16 21:11 (Coumadin) 5 mg DAILY@16 PO 01/14/16 16:00 01/24/16 15:41 (SEROquel) 25 mg BID PO 01/23/16 09:00 01/25/16 09:01 Urinary Catheter: No Vascular Central Line Catheter: No A/P Problem List: (1) Cellulitis Status: Resolved (2) Ischemic cardiomyopathy Status: Chronic (3) Diabetes mellitus type 2 in obese Status: Chronic (4) S/P BKA (below knee amputation) unilateral Status: Chronic (5) Acute metabolic encephalopathy Status: Resolved (6) Bacteremia Status: Resolved (7) Chronic systolic (congestive) heart failure Status: Chronic (8) Venous stasis ulcer of left lower extremity Status: Chronic (9) CVA (cerebral vascular accident) Status: Chronic (10) Seborrheic dermatitis Status: Resolved Assessment and Plan 60-year-old male admitted 10/14 with acute cortical infarct Bilateral CVA with Suspected Dementia: MRI 10/20/15 showed Acute Cortical Infarct. MRA of head and neck unremarkable. S/p ASA and Plavix. -Continue with Statin, Coumadin and monitor INR/PT, keep INR between 2 and 3. -Discharged from physical therapy as he has reached maximum benefit here -Continue OT and transfer with nursing as able Ischemic Cardiomyopathy/chronic systolic CHF LVEF 35% on echo 03/2015. Denies shortness of breath. Compensated. -Continue Coreg, Imdur, enalapril. -Could consider AICD if patient is able to consent however currently unable -Fluid and sodium restrictions, follow volume status. CKD stage 4: suspect diabetic nephropathy. Chronic, stable. -Avoid nephrotoxins. -Monitor with BMP periodically Hypertension. Chronic, controlled. -Continue enalapril and carvedilol. -Continue to monitor BP and adjust antihypertensives as needed. Diabetic mellitus: Glucose was well controlled on diet alone. Discontinued all insulin. -Accu-checks discontinued as patient's blood sugar well controlled, Hgb A1c 6.9. -diabetic diet Sepsis secondary to cellulitis and bacteremia. S/p IV abx. Repeat blood cultures from 10/15 and 10/30 with no growth. Resolved. Cellulitis of LLE: Chronic venous stasis ulcers on LLE. Wound cultures MSSA, Serratia marcescens. Dr. Messina/TISHA ff; was on Keflex and Cipro for 10 days, completed 10/26. Resolved. PAD -stable. Continue above meds Intermittent Agitation: patient intermittently refusing meds, however now resolved. -doing well, continue on seroquel Constipation-on cathartics and laxity of daily. MiraLAX as needed. -Bowel movement 01/24 DVT prophylaxis with Coumadin Discharge Planning Case management assisting with discharge planning, needs placement. Problem Qualifiers (1) Cellulitis: (2) S/P BKA (below knee amputation) unilateral: Qualified Code: Z89.511 - S/P BKA (below knee amputation) unilateral, right (3) CVA (cerebral vascular accident): Qualified Code: I63.9 - Cerebrovascular accident (CVA), unspecified mechanism Rosaura Patel PA-C Jan 25, 2016 14:22
[2016-01-25] MEDS: WARFARIN SOD 5 MG TAB PO SCH (15:22)
[2016-01-25] MEDS: ISOSORBIDE MONONITRATE 60 MG TAB PO SCH (20:32)
[2016-01-25] MEDS: SODIUM CHLORIDE 0.9% FLUSH 5 ML FLUSH FLUSH SCH (20:44)
[2016-01-25] MEDS: EUCERIN CREAM 120 GM JAR TOPICAL SCH (21:00)
[2016-01-25] MEDS: BETAMETHASONE DIPROPIONATE 0.05% OINT 15 GM TUBE TOP SCH (21:00)
[2016-01-26 00:09] VITALS: BP 100/63; PULSE 75; RESP 18; TEMP 96.2; O2SAT 96
[2016-01-26 05:15] VITALS: BP 87/52; PULSE 71; RESP 18; TEMP 97.4; O2SAT 98
[2016-01-26] MEDS: DOCUSATE SODIUM 50 MG/SENNA 8.6 MG TAB PO SCH ×2 (07:52→20:45)
[2016-01-26] MEDS: ATORVASTATIN 80 MG TAB PO SCH (07:53)
[2016-01-26] MEDS: LACTULOSE SYRUP 20 GM/30 ML CUP PO SCH (07:54)
[2016-01-26] MEDS: QUEtiapine FUMARATE 25 MG TAB PO SCH ×2 (07:54→20:45)
[2016-01-26] MEDS: ENALAPRIL MALEATE 2.5 MG TAB PO SCH (07:55)
[2016-01-26] MEDS: CARVEDILOL 12.5 MG TAB PO SCH ×2 (07:55→20:45)
[2016-01-26] MEDS: SODIUM CHLORIDE 0.9% FLUSH 5 ML FLUSH FLUSH SCH ×3 (07:55→20:46)
[2016-01-26] MEDS: EUCERIN CREAM 120 GM JAR TOPICAL SCH ×2 (07:56→20:46)
[2016-01-26] MEDS: BETAMETHASONE DIPROPIONATE 0.05% OINT 15 GM TUBE TOP SCH ×2 (07:56→20:46)
[2016-01-26] MEDS: NYSTATIN 100,000 U/GM PWD 15 GM BTL TOPICAL SCH (07:57)
[2016-01-26 08:00] VITALS: BP 131/81; PULSE 72; RESP 18; TEMP 96; O2SAT 98
[2016-01-26 08:46] LABS: INTERNATIONAL NORMALIZED RATIO 2.3 RATIO; PROTHROMBIN TIME - PATIENT 25.7 SEC (9.8-11.4)
[2016-01-26 12:00] VITALS: BP 133/80; PULSE 70; RESP 18; TEMP 96; O2SAT 97
--- NOTE | 2016-01-26 14:14 | HHI.PR ---
Subjective Remarks Follow up for CVA, awaiting placement. The patient states he is not having a good day because he was told that the hospital is out of ice cream. He otherwise denies any other medical complaints. He is tolerating his meals. Denies chest pain, cough, SOB, abdominal pain, nausea, or constipation. Discussed with RN who will try to provide ice cream. Objective Vitals Vital Signs Date Time Temp Pulse Resp B/P Pulse Ox O2 Delivery O2 Flow Rate FiO2 01/26/16 12:00 96.0 70 18 133/80 97 01/26/16 08:00 96.0 72 18 131/81 98 01/26/16 05:15 97.4 71 18 87/52 98 01/26/16 00:09 96.2 75 18 100/63 96 01/25/16 20:14 97.5 75 18 128/82 97 01/25/16 16:07 96.9 72 18 123/75 97 I/O 01/25/16 01/25/16 01/25/16 01/26/16 01/26/16 01/26/16 07:00 15:00 23:00 07:00 15:00 23:00 Intake Total 480 ml 240 ml Output Total 200 ml 200 ml Balance 480 ml 40 ml -200 ml Intake Oral 480 ml 240 ml Output Urine Total 200 ml 200 ml # Voids 0 1 # Bowel Movements 0 Result Diagram: 01/22/16 0630 01/22/16 0630 Objective Remarks GENERAL: Well-nourished, well-developed elderly male patient in [facility]. SKIN: Warm and dry. No rash. Mild superficial abrasion to left distal anterior johnson, covered with Tegaderm, no surrounding warmth or erythema. HEAD: Normocephalic. Atraumatic. CARDIOVASCULAR: Regular rate and rhythm. S1, S2 noted. No murmur appreciated. RESPIRATORY: No accessory muscle use. Clear to auscultation. Breath sounds equal bilaterally. GASTROINTESTINAL: Abdomen soft, non-tender, nondistended. Normoactive bowel sounds x4. MUSCULOSKELETAL: Chronic Right BKA, well-healed. Extremities without clubbing, cyanosis, or edema. NEUROLOGICAL: Awake and alert, oriented to person and place, not month/year. No obvious cranial nerve deficits. Motor grossly within normal limits. Moves all extremities spontaneously. PSYCHIATRIC: Appropriate mood and affect; insight and judgment limited. Procedures None Medications and IVs Current Medications Medications (Trade) Dose Ordered Sig/Estuardo Route Start Time Stop Time Status Last Admin (NS Flush) 2 ml UNSCH PRN FLUSH 10/15/15 23:30 (NS Flush) 2 ml BID FLUSH 10/16/15 09:00 01/24/16 21:10 Atorvastatin Calcium 80 mg 80 mg DAILY PO 10/16/15 09:00 01/26/16 07:53 (Coumadin Consult Pharmacy) 0 ml @ 0 mls/hr UNSCH XX 10/30/15 05:30 (Tylenol) 650 mg Q4H PRN PO 10/30/15 05:30 (Tums Chew) 1,000 mg TID PRN CHEW 10/30/15 05:30 (Catapres) 0.1 mg Q6H PRN PO 10/30/15 05:30 01/23/16 21:13 (Mycostatin Powder) 1 applic DAILY TOPICAL 10/31/15 18:00 01/26/16 07:57 (Haydee-Colace) 2 tab BID PO 11/03/15 09:00 01/26/16 07:52 (Lactulose Liq) 30 ml DAILY PO 11/04/15 09:00 01/25/16 09:01 (Diprosone 0.05% Ointment) 1 applic BID TOP 12/08/15 12:30 01/26/16 07:56 (Coreg) 25 mg BID PO 12/12/15 21:00 01/26/16 07:55 (Miralax) 17 gm DAILY PRN PO 12/14/15 17:00 01/24/16 07:59 (Pill Splitter) 1 ea UNSCH PRN OTHER 12/15/15 09:15 (Zofran Odt) 4 mg Q4H PRN PO 12/30/15 11:00 (Imdur) 60 mg HS PO 01/11/16 21:00 01/25/16 20:32 (Vasotec) 2.5 mg DAILY PO 01/12/16 09:00 01/26/16 07:55 (Eucerin Cream) 1 applic Q12HR TOPICAL 01/13/16 21:00 01/26/16 07:56 (Coumadin) 5 mg DAILY@16 PO 01/14/16 16:00 01/25/16 15:22 (SEROquel) 25 mg BID PO 01/23/16 09:00 01/26/16 07:54 Urinary Catheter: No Vascular Central Line Catheter: No A/P Problem List: (1) Cellulitis Status: Resolved (2) Ischemic cardiomyopathy Status: Chronic (3) Diabetes mellitus type 2 in obese Status: Chronic (4) S/P BKA (below knee amputation) unilateral Status: Chronic (5) Acute metabolic encephalopathy Status: Resolved (6) Bacteremia Status: Resolved (7) Chronic systolic (congestive) heart failure Status: Chronic (8) Venous stasis ulcer of left lower extremity Status: Chronic (9) CVA (cerebral vascular accident) Status: Chronic (10) Seborrheic dermatitis Status: Resolved Assessment and Plan 60-year-old male admitted 10/14 with acute cortical infarct Bilateral CVA with Suspected Dementia: MRI 10/20/15 showed Acute Cortical Infarct. MRA of head and neck unremarkable. S/p ASA and Plavix. -Continue with Statin, Coumadin and monitor INR/PT, keep INR between 2 and 3. -Discharged from physical therapy as he has reached maximum benefit here -Continue OT and transfer with nursing as able Ischemic Cardiomyopathy/chronic systolic CHF LVEF 35% on echo 03/2015. Denies shortness of breath. Compensated. -Continue Coreg, Imdur, enalapril. -Could consider AICD if patient is able to consent however currently unable -Fluid and sodium restrictions, follow volume status. CKD stage 4: suspect diabetic nephropathy. Chronic, stable. -Avoid nephrotoxins. -Monitor with BMP periodically Hypertension. Chronic, controlled. -Continue enalapril and carvedilol. -Continue to monitor BP and adjust antihypertensives as needed. Diabetic mellitus: Glucose was well controlled on diet alone. Discontinued all insulin. -Accu-checks discontinued as patient's blood sugar well controlled, Hgb A1c 6.9. -diabetic diet Sepsis secondary to cellulitis and bacteremia. S/p IV abx. Repeat blood cultures from 10/15 and 10/30 with no growth. Resolved. Cellulitis of LLE: Chronic venous stasis ulcers on LLE. Wound cultures MSSA, Serratia marcescens. Dr. Messina/[facility] ff; was on Keflex and Cipro for 10 days, completed 10/26. Resolved. PAD -stable. Continue above meds Intermittent Agitation: patient intermittently refusing meds, however now resolved. -doing well, continue on seroquel Constipation-on cathartics and laxity of daily. MiraLAX as needed. -continue to monitor for bowel movements DVT prophylaxis with Coumadin Discharge Planning Case management assisting with discharge planning, needs placement. Problem Qualifiers (1) Cellulitis: (2) S/P BKA (below knee amputation) unilateral: Qualified Code: Z89.511 - S/P BKA (below knee amputation) unilateral, right (3) CVA (cerebral vascular accident): Qualified Code: I63.9 - Cerebrovascular accident (CVA), unspecified mechanism Rosaura Patel PA-C Jan 26, 2016 14:14
[2016-01-26 16:00] VITALS: BP 127/68; PULSE 78; RESP 20; TEMP 97.2; O2SAT 98
[2016-01-26] MEDS: WARFARIN SOD 5 MG TAB PO SCH (16:05)
[2016-01-26 20:00] VITALS: BP 138/82; PULSE 75; RESP 17; TEMP 96.8; O2SAT 98
[2016-01-26] MEDS: ISOSORBIDE MONONITRATE 60 MG TAB PO SCH (20:44)
[2016-01-27] VITALS (7 sets, daily range): BP systolic 92–154; BP diastolic 53–90; PULSE 63–79; RESP 16–20; TEMP 95.9–97.9; O2SAT 92–100
[2016-01-27] MEDS: NYSTATIN 100,000 U/GM PWD 15 GM BTL TOPICAL SCH (09:00)
[2016-01-27] MEDS: SODIUM CHLORIDE 0.9% FLUSH 5 ML FLUSH FLUSH SCH ×2 (09:00→21:00)
[2016-01-27] MEDS: LACTULOSE SYRUP 20 GM/30 ML CUP PO SCH (09:00)
[2016-01-27] MEDS: BETAMETHASONE DIPROPIONATE 0.05% OINT 15 GM TUBE TOP SCH ×2 (09:00→22:17)
[2016-01-27] MEDS: EUCERIN CREAM 120 GM JAR TOPICAL SCH ×2 (09:00→22:16)
[2016-01-27] MEDS: ATORVASTATIN 80 MG TAB PO SCH (09:36)
[2016-01-27] MEDS: ENALAPRIL MALEATE 2.5 MG TAB PO SCH (09:36)
[2016-01-27] MEDS: QUEtiapine FUMARATE 25 MG TAB PO SCH ×2 (09:36→22:18)
[2016-01-27] MEDS: CARVEDILOL 12.5 MG TAB PO SCH ×2 (09:36→21:00)
[2016-01-27] MEDS: DOCUSATE SODIUM 50 MG/SENNA 8.6 MG TAB PO SCH ×2 (09:37→21:00)
[2016-01-27 09:52] LABS: PROTHROMBIN TIME - PATIENT 22.1 SEC (9.8-11.4)
--- NOTE | 2016-01-27 11:08 | HHI.PR ---
Subjective Remarks Follow-up for CVA, awaiting placement. The patient is doing well today. He has no complaints this time. He got to eat ice cream this morning. Objective Vitals Vital Signs Date Time Temp Pulse Resp B/P Pulse Ox O2 Delivery O2 Flow Rate FiO2 01/27/16 08:00 96.1 74 20 154/90 96 01/27/16 07:57 92 01/27/16 04:00 97.9 63 18 100/53 98 01/27/16 00:11 96.8 79 16 92/60 96 01/26/16 20:00 96.8 75 17 138/82 98 01/26/16 16:00 97.2 78 20 127/68 98 01/26/16 12:00 96.0 70 18 133/80 97 I/O 01/26/16 01/26/16 01/26/16 01/27/16 01/27/16 01/27/16 07:00 15:00 23:00 07:00 15:00 23:00 Intake Total 478 ml 120 ml Output Total 200 ml 200 ml 300 ml Balance -200 ml 278 ml -180 ml Intake Oral 478 ml 120 ml Output Urine Total 200 ml 200 ml 300 ml # Voids 0 # Bowel Movements 0 Objective Remarks GENERAL: Well-developed well-nourished. In no acute distress. SKIN: Warm and dry. Scaly skin of the face. Mild superficial abrasion to left distal anterior johnson, covered with Tegaderm, no surrounding warmth or erythema. HEENT: Normocephalic. Pupils equal and round. CARDIOVASCULAR: Regular rate and rhythm. No murmur appreciated. RESPIRATORY: No accessory muscle use. Clear to auscultation. Breath sounds equal bilaterally. GASTROINTESTINAL: Abdomen soft, non-tender, nondistended. Bowel sounds x4. MUSCULOSKELETAL: Right BKA. No clubbing or cyanosis. No edema. NEUROLOGICAL: Awake and alert. Moves upper and lower extremities spontaneously. Normal speech. PSYCHIATRIC: Pleasantly confused mood and affect; insight and judgment poor. Procedures None A/P Problem List: (1) Cellulitis Status: Resolved (2) Ischemic cardiomyopathy Status: Chronic (3) Diabetes mellitus type 2 in obese Status: Chronic (4) S/P BKA (below knee amputation) unilateral Status: Chronic (5) Acute metabolic encephalopathy Status: Resolved (6) Bacteremia Status: Resolved (7) Chronic systolic (congestive) heart failure Status: Chronic (8) Venous stasis ulcer of left lower extremity Status: Chronic (9) CVA (cerebral vascular accident) Status: Chronic (10) Seborrheic dermatitis Status: Resolved Assessment and Plan 60-year-old male with Admitted 10/14 with acute cortical infarct - Bilateral CVA:MRI showed acute cortical infarct. MRA of head and neck unremarkable. Neurology following. S/p ASA and Plavix. -Continue with Statin. -Continue Coumadin 3 mg daily and monitor INR/PT keep INR between 2 and 3, pharmacy consulted for assistance with management. -Discharged from physical therapy as he has reached maximum benefit here. Continue OT and transfer with nursing as able Ischemic Cardiomyopathy/chronic systolic CHF LVEF 35% on echo 03/2015. Denies shortness of breath. Compensated. -Continue Coreg, Imdur, enalapril. -Could consider AICD if patient is able to consent, however patient is currently unable to consent -Fluid and sodium restrictions, follow volume status. 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 -Avoid nephrotoxins. -Monitor BMP intermittently - Diabetic mellitus - Glucose was well controlled. All insulin discontinued. -accu-checks discontinued as patient's blood sugar well controlled and Hgb A1c 6.9. -continue diet control - PAD -stable. Continue above meds Intermittent agitation -Doing well, tolerating Seroquel Constipation-on cathartics and laxity to daily. MiraLAX as needed. -Monitor - DVT prophylaxis with Coumadin Discharge Planning Discharge to SNF when arranged. Problem Qualifiers (1) Cellulitis: (2) S/P BKA (below knee amputation) unilateral: Qualified Code: Z89.511 - S/P BKA (below knee amputation) unilateral, right (3) CVA (cerebral vascular accident): Qualified Code: I63.9 - Cerebrovascular accident (CVA), unspecified mechanism Lars Rich Jan 27, 2016 11:07
[2016-01-27] MEDS: WARFARIN SOD 5 MG TAB PO SCH (18:29)
[2016-01-27] MEDS: ISOSORBIDE MONONITRATE 60 MG TAB PO SCH (21:00)
[2016-01-28 00:08] VITALS: BP 157/98; PULSE 65; RESP 20; TEMP 97.2; O2SAT 95
[2016-01-28 04:54] VITALS: BP 158/95; PULSE 75; RESP 18; TEMP 96.9; O2SAT 97
[2016-01-28 07:55] LABS: INTERNATIONAL NORMALIZED RATIO 2.1 RATIO; PROTHROMBIN TIME - PATIENT 22.2 SEC (9.8-11.4)
[2016-01-28 08:20] VITALS: BP 173/96; PULSE 79; RESP 20; TEMP 96.9; O2SAT 98
[2016-01-28] MEDS: QUEtiapine FUMARATE 25 MG TAB PO SCH ×2 (09:00→21:49)
[2016-01-28] MEDS: DOCUSATE SODIUM 50 MG/SENNA 8.6 MG TAB PO SCH ×2 (09:00→21:49)
[2016-01-28] MEDS: SODIUM CHLORIDE 0.9% FLUSH 5 ML FLUSH FLUSH SCH ×2 (09:00→21:00)
[2016-01-28] MEDS: LACTULOSE SYRUP 20 GM/30 ML CUP PO SCH (09:00)
[2016-01-28] MEDS: ATORVASTATIN 80 MG TAB PO SCH (09:00)
[2016-01-28] MEDS: ENALAPRIL MALEATE 2.5 MG TAB PO SCH (10:18)
[2016-01-28] MEDS: CARVEDILOL 12.5 MG TAB PO SCH ×2 (10:18→21:49)
[2016-01-28] MEDS: BETAMETHASONE DIPROPIONATE 0.05% OINT 15 GM TUBE TOP SCH ×2 (10:23→21:50)
[2016-01-28] MEDS: EUCERIN CREAM 120 GM JAR TOPICAL SCH ×2 (10:24→21:50)
[2016-01-28] MEDS: NYSTATIN 100,000 U/GM PWD 15 GM BTL TOPICAL SCH (10:24)
[2016-01-28 12:00] VITALS: BP 152/89; PULSE 80; RESP 20; TEMP 96.4; O2SAT 98
--- NOTE | 2016-01-28 12:36 | HHI.PR ---
Subjective Remarks Follow-up for CVA. The patient has no acute complaints today. He denies any pain, has been eating well, normal BMs. RN reports that patient has been intermittently refusing some of his medications. The patient states he doesn't want take any medications because some make him nauseated. He also refuses any nausea medication. He denies any vomiting. After further discussion, he does agree to take some medication that'll help prevent another stroke. Objective Vitals Vital Signs Date Time Temp Pulse Resp B/P Pulse Ox O2 Delivery O2 Flow Rate FiO2 01/28/16 08:20 96.9 79 20 173/96 98 01/28/16 04:54 96.9 75 18 158/95 97 01/28/16 00:08 97.2 65 20 157/98 95 01/27/16 20:54 97.5 75 18 130/75 98 01/27/16 15:04 96.3 69 20 124/82 98 I/O 01/27/16 01/27/16 01/27/16 01/28/16 01/28/16 01/28/16 07:00 15:00 23:00 07:00 15:00 23:00 Intake Total 360 ml Output Total 200 ml Balance 360 ml -200 ml Intake Oral 360 ml Output Urine Total 200 ml # Voids 0 0 # Bowel Movements 0 0 Objective Remarks GENERAL: Well-developed well-nourished. In no acute distress. SKIN: Warm and dry. Scaly skin of the face. Mild superficial abrasion to left distal anterior johnson, covered with Tegaderm, no surrounding warmth or erythema. HEENT: Normocephalic. Pupils equal and round. CARDIOVASCULAR: Regular rate and rhythm. No murmur appreciated. RESPIRATORY: No accessory muscle use. Clear to auscultation. Breath sounds equal bilaterally. GASTROINTESTINAL: Abdomen soft, non-tender, nondistended. Bowel sounds x4. MUSCULOSKELETAL: Right BKA. No clubbing or cyanosis. No edema. NEUROLOGICAL: Awake and alert. Moves upper and lower extremities spontaneously. Normal speech. PSYCHIATRIC: Pleasantly confused mood and affect; insight and judgment poor. Procedures None A/P Problem List: (1) Cellulitis Status: Resolved (2) Ischemic cardiomyopathy Status: Chronic (3) Diabetes mellitus type 2 in obese Status: Chronic (4) S/P BKA (below knee amputation) unilateral Status: Chronic (5) Acute metabolic encephalopathy Status: Resolved (6) Bacteremia Status: Resolved (7) Chronic systolic (congestive) heart failure Status: Chronic (8) Venous stasis ulcer of left lower extremity Status: Chronic (9) CVA (cerebral vascular accident) Status: Chronic (10) Seborrheic dermatitis Status: Resolved Assessment and Plan 60-year-old male with Admitted 10/14 with acute cortical infarct - Bilateral CVA:MRI showed acute cortical infarct. MRA of head and neck unremarkable. Neurology following. S/p ASA and Plavix. -Continue with Statin. -Continue Coumadin 3 mg daily and monitor INR/PT keep INR between 2 and 3, pharmacy consulted for assistance with management. -Discharged from physical therapy as he has reached maximum benefit here. Continue OT and transfer with nursing as able Ischemic Cardiomyopathy/chronic systolic CHF LVEF 35% on echo 03/2015. Denies shortness of breath. Compensated. -Continue Coreg, Imdur, enalapril. -Could consider AICD if patient is able to consent, however patient is currently unable to consent -Fluid and sodium restrictions, follow volume status. 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 -Avoid nephrotoxins. -Monitor BMP intermittently - Diabetic mellitus - Glucose was well controlled. All insulin discontinued. -accu-checks discontinued as patient's blood sugar well controlled and Hgb A1c 6.9. -continue diet control - PAD -stable. Continue above meds Intermittent agitation -Continue Seroquel -01/27 strongly emphasized compliance with medications Constipation-on cathartics and laxity to daily. MiraLAX as needed. -Monitor - DVT prophylaxis with Coumadin Discharge Planning Discharge to SNF when arranged. Discussed with case management. Problem Qualifiers (1) Cellulitis: (2) S/P BKA (below knee amputation) unilateral: Qualified Code: Z89.511 - S/P BKA (below knee amputation) unilateral, right (3) CVA (cerebral vascular accident): Qualified Code: I63.9 - Cerebrovascular accident (CVA), unspecified mechanism Lars Rich Jan 28, 2016 12:36
[2016-01-28 16:04] VITALS: BP 120/87; PULSE 72; RESP 20; TEMP 95.5; O2SAT 98
[2016-01-28] MEDS: WARFARIN SOD 5 MG TAB PO SCH (17:49)
[2016-01-28 20:00] VITALS: BP 125/82; PULSE 80; RESP 18; TEMP 97.3; O2SAT 96
[2016-01-28] MEDS: ISOSORBIDE MONONITRATE 60 MG TAB PO SCH (21:50)
[2016-01-29] VITALS: BP 152/97; PULSE 72; RESP 18; TEMP 97.3; O2SAT 96
[2016-01-29 05:19] VITALS: BP 123/73; PULSE 67; RESP 18; TEMP 97.3; O2SAT 99
[2016-01-29 07:54] LABS: INTERNATIONAL NORMALIZED RATIO 2.1 RATIO
[2016-01-29 08:07] VITALS: BP 133/85; PULSE 65; RESP 18; TEMP 95.7; O2SAT 98
[2016-01-29] MEDS: QUEtiapine FUMARATE 25 MG TAB PO SCH ×2 (09:00→21:43)
[2016-01-29] MEDS: LACTULOSE SYRUP 20 GM/30 ML CUP PO SCH (09:00)
[2016-01-29] MEDS: EUCERIN CREAM 120 GM JAR TOPICAL SCH ×2 (09:00→21:45)
[2016-01-29] MEDS: NYSTATIN 100,000 U/GM PWD 15 GM BTL TOPICAL SCH (09:00)
[2016-01-29] MEDS: ATORVASTATIN 80 MG TAB PO SCH (09:00)
[2016-01-29] MEDS: DOCUSATE SODIUM 50 MG/SENNA 8.6 MG TAB PO SCH ×2 (09:00→21:43)
[2016-01-29] MEDS: BETAMETHASONE DIPROPIONATE 0.05% OINT 15 GM TUBE TOP SCH ×2 (09:00→21:45)
[2016-01-29] MEDS: CARVEDILOL 12.5 MG TAB PO SCH ×2 (09:00→21:43)
[2016-01-29] MEDS: SODIUM CHLORIDE 0.9% FLUSH 5 ML FLUSH FLUSH SCH ×2 (09:00→21:00)
[2016-01-29 12:10] VITALS: BP 145/84; PULSE 66; RESP 20; TEMP 95.6; O2SAT 98
[2016-01-29] MEDS: ENALAPRIL MALEATE 2.5 MG TAB PO SCH (15:29)
[2016-01-29] MEDS: WARFARIN SOD 5 MG TAB PO SCH (15:29)
[2016-01-29 16:00] VITALS: BP 141/87; PULSE 71; RESP 18; TEMP 96.7; O2SAT 98
--- NOTE | 2016-01-29 16:13 | HHI.PR ---
Subjective Remarks Follow up for CVA. The patient states he feels "lousy" today. States he didn't get any ice cream today. He continues to refuse some of his medications intermittently. Again discussed importance of him taking his medications regularly. He agrees to keep taking his meds. Otherwise, he denies any other medical complaints, denies fevers/chills, headache, chest pain, shortness of breath, abdominal pain, constipation or diarrhea. Objective Vitals Vital Signs Date Time Temp Pulse Resp B/P Pulse Ox O2 Delivery O2 Flow Rate FiO2 01/29/16 12:10 95.6 66 20 145/84 98 01/29/16 08:07 95.7 65 18 133/85 98 01/29/16 05:19 97.3 67 18 123/73 99 01/29/16 00:00 97.3 72 18 152/97 96 01/28/16 20:00 97.3 80 18 125/82 96 I/O 01/28/16 01/28/16 01/28/16 01/29/16 01/29/16 01/29/16 07:00 15:00 23:00 07:00 15:00 23:00 Intake Total 420 ml 240 ml 240 ml Output Total 200 ml 750 ml 200 ml 250 ml Balance -200 ml -330 ml 40 ml -10 ml Intake Oral 420 ml 240 ml 240 ml Output Urine Total 200 ml 750 ml 200 ml 250 ml # Voids 0 # Bowel Movements 0 0 0 0 Objective Remarks GENERAL: Well-nourished, well-developed elderly male patient in [facility]. SKIN: Warm and dry. No rash. Mild superficial abrasion to left distal anterior johnson, covered with Tegaderm, no surrounding warmth or erythema. HEAD: Normocephalic. Atraumatic. CARDIOVASCULAR: Regular rate and rhythm. S1, S2 noted. No murmur appreciated. RESPIRATORY: No accessory muscle use. Clear to auscultation. Breath sounds equal bilaterally. GASTROINTESTINAL: Abdomen soft, non-tender, nondistended. Normoactive bowel sounds x4. MUSCULOSKELETAL: Chronic Right BKA, well-healed. Extremities without clubbing, cyanosis, or edema. NEUROLOGICAL: Awake and alert, oriented to person and place, not month/year. No obvious cranial nerve deficits. Motor grossly within normal limits. Moves all extremities spontaneously. PSYCHIATRIC: Pleasant. Appropriate mood and affect; insight and judgment limited. Procedures None Medications and IVs Current Medications Medications (Trade) Dose Ordered Sig/Estuardo Route Start Time Stop Time Status Last Admin (NS Flush) 2 ml UNSCH PRN FLUSH 10/15/15 23:30 (NS Flush) 2 ml BID FLUSH 10/16/15 09:00 01/24/16 21:10 Atorvastatin Calcium 80 mg 80 mg DAILY PO 10/16/15 09:00 01/27/16 09:36 (Coumadin Consult Pharmacy) 0 ml @ 0 mls/hr UNSCH XX 10/30/15 05:30 (Tylenol) 650 mg Q4H PRN PO 10/30/15 05:30 (Tums Chew) 1,000 mg TID PRN CHEW 10/30/15 05:30 (Catapres) 0.1 mg Q6H PRN PO 10/30/15 05:30 01/23/16 21:13 (Mycostatin Powder) 1 applic DAILY TOPICAL 10/31/15 18:00 01/28/16 10:24 (Haydee-Colace) 2 tab BID PO 11/03/15 09:00 01/28/16 21:49 (Lactulose Liq) 30 ml DAILY PO 11/04/15 09:00 01/25/16 09:01 (Diprosone 0.05% Ointment) 1 applic BID TOP 12/08/15 12:30 01/28/16 21:50 (Coreg) 25 mg BID PO 12/12/15 21:00 01/28/16 21:49 (Miralax) 17 gm DAILY PRN PO 12/14/15 17:00 01/24/16 07:59 (Pill Splitter) 1 ea UNSCH PRN OTHER 12/15/15 09:15 (Zofran Odt) 4 mg Q4H PRN PO 12/30/15 11:00 (Imdur) 60 mg HS PO 01/11/16 21:00 01/28/16 21:50 (Vasotec) 2.5 mg DAILY PO 01/12/16 09:00 01/29/16 15:29 (Eucerin Cream) 1 applic Q12HR TOPICAL 01/13/16 21:00 01/28/16 21:50 (Coumadin) 5 mg DAILY@16 PO 9/15/16 16:00 01/29/16 15:29 (SEROquel) 25 mg BID PO 01/23/16 09:00 01/28/16 21:49 Urinary Catheter: No Vascular Central Line Catheter: No A/P Problem List: (1) Cellulitis ICD Code: L03.90 Status: Resolved (2) Ischemic cardiomyopathy ICD Code: I25.5 Status: Chronic (3) Diabetes mellitus type 2 in obese ICD Code: E11.9 Status: Chronic (4) S/P BKA (below knee amputation) unilateral ICD Code: Z89.519 Status: Chronic (5) Acute metabolic encephalopathy ICD Code: G93.41 Status: Resolved (6) Bacteremia ICD Code: R78.81 Status: Resolved (7) Chronic systolic (congestive) heart failure ICD Code: I50.22 Status: Chronic (8) Venous stasis ulcer of left lower extremity ICD Code: I83.029 Status: Chronic (9) CVA (cerebral vascular accident) ICD Code: I63.9 Status: Chronic (10) Seborrheic dermatitis ICD Code: L21.9 Status: Resolved Assessment and Plan 60-year-old male admitted 10/14 with acute cortical infarct Bilateral CVA with Suspected Dementia: MRI 10/20/15 showed Acute Cortical Infarct. MRA of head and neck unremarkable. S/p ASA and Plavix. -Continue with Statin, Coumadin and monitor INR/PT, keep INR between 2 and 3 (pharmacy assisting) -Discharged from physical therapy as he has reached maximum benefit here -Continue OT and transfer with nursing as able Ischemic Cardiomyopathy/chronic systolic CHF LVEF 35% on echo 03/2015. Denies shortness of breath. Compensated. -Continue Coreg, Imdur, enalapril. -Could consider AICD if patient is able to consent however currently unable -Fluid and sodium restrictions, follow volume status. CKD stage 4: suspect diabetic nephropathy. Chronic, stable. -Avoid nephrotoxins. -Monitor with BMP periodically Hypertension. Chronic, controlled. -Continue enalapril and carvedilol. -Continue to monitor BP and adjust antihypertensives as needed. Diabetic mellitus: Glucose was well controlled on diet alone. Discontinued all insulin. -Accu-checks discontinued as patient's blood sugar well controlled, Hgb A1c 6.9. -diabetic diet Sepsis secondary to cellulitis and bacteremia. S/p IV abx. Repeat blood cultures from 10/15 and 10/30 with no growth. Resolved. Cellulitis of LLE: Chronic venous stasis ulcers on LLE. Wound cultures MSSA, Serratia marcescens. Dr. Messina/TISHA ff; was on Keflex and Cipro for 10 days, completed 10/26. Resolved. PAD -stable. Continue above meds Intermittent Agitation: patient intermittently refusing meds, however now resolved. -doing well, continue on seroquel -01/28 again discussed importance of compliance with medications Constipation-on cathartics and laxity of daily. MiraLAX as needed. -continue to monitor for bowel movements DVT prophylaxis with Coumadin Discharge Planning Case management assisting with discharge planning, needs placement. Problem Qualifiers (1) Cellulitis: (2) S/P BKA (below knee amputation) unilateral: Qualified Code: Z89.511 - S/P BKA (below knee amputation) unilateral, right (3) CVA (cerebral vascular accident): Qualified Code: I63.9 - Cerebrovascular accident (CVA), unspecified mechanism Rosaura Patel PA-C Jan 29, 2016 16:13
[2016-01-29 20:00] VITALS: BP 170/96; PULSE 75; RESP 18; TEMP 97.6; O2SAT 99
[2016-01-29] MEDS: ISOSORBIDE MONONITRATE 60 MG TAB PO SCH (21:43)
[2016-01-30 00:12] VITALS: BP 133/88; PULSE 77; RESP 18; TEMP 97.4; O2SAT 97
[2016-01-30 04:28] VITALS: BP 100/77; PULSE 68; RESP 18; TEMP 97.6; O2SAT 93
[2016-01-30 06:41] LABS: INTERNATIONAL NORMALIZED RATIO 2.4 RATIO; PROTHROMBIN TIME - PATIENT 26.1 SEC (9.8-11.4)
[2016-01-30 08:38] VITALS: BP 132/84; PULSE 66; RESP 18; TEMP 97.2; O2SAT 99
[2016-01-30] MEDS: SODIUM CHLORIDE 0.9% FLUSH 5 ML FLUSH FLUSH SCH ×2 (09:00→21:00)
[2016-01-30] MEDS: ENALAPRIL MALEATE 2.5 MG TAB PO SCH (09:25)
[2016-01-30] MEDS: CARVEDILOL 12.5 MG TAB PO SCH ×2 (09:25→21:25)
[2016-01-30] MEDS: DOCUSATE SODIUM 50 MG/SENNA 8.6 MG TAB PO SCH ×2 (09:25→21:25)
[2016-01-30] MEDS: LACTULOSE SYRUP 20 GM/30 ML CUP PO SCH (09:25)
[2016-01-30] MEDS: ATORVASTATIN 80 MG TAB PO SCH (09:25)
[2016-01-30] MEDS: QUEtiapine FUMARATE 25 MG TAB PO SCH ×2 (09:25→21:25)
[2016-01-30] MEDS: BETAMETHASONE DIPROPIONATE 0.05% OINT 15 GM TUBE TOP SCH ×2 (09:26→21:28)
[2016-01-30] MEDS: EUCERIN CREAM 120 GM JAR TOPICAL SCH ×2 (09:26→21:28)
[2016-01-30] MEDS: NYSTATIN 100,000 U/GM PWD 15 GM BTL TOPICAL SCH (09:26)
[2016-01-30 12:00] VITALS: BP 144/96; PULSE 73; RESP 20; TEMP 96.3; O2SAT 97
--- NOTE | 2016-01-30 13:13 | HHI.PR ---
Subjective Remarks Follow up for CVA. The patient again states he feels "lousy" today. When asked why, he states "because they tell me I can't do things". CUSTOMER ADVISOR reports patient trying to get out of bed on his own to get some pants from the closet however there were no pants in the closet. The patient states he is eating well, happy now that he is getting ice cream. However, he reports no BM in 3 days, and actual last documented BM was on 01/23. Patient receives lactulose every morning with no relief. Will change Miralax from prn to scheduled and order Milk of Mag prn. The patient denies any abdominal pain, nausea, or vomiting. He has no other medical complaints at this time. Objective Vitals Vital Signs Date Time Temp Pulse Resp B/P Pulse Ox O2 Delivery O2 Flow Rate FiO2 01/30/16 12:00 96.3 73 20 144/96 97 01/30/16 08:38 97.2 66 18 132/84 99 01/30/16 04:28 97.6 68 18 100/77 93 01/30/16 00:12 97.4 77 18 133/88 97 01/29/16 20:00 97.6 75 18 170/96 99 01/29/16 16:00 96.7 71 18 141/87 98 I/O 01/29/16 01/29/16 01/29/16 01/30/16 01/30/16 01/30/16 07:00 15:00 23:00 07:00 15:00 23:00 Intake Total 240 ml 360 ml 120 ml Output Total 250 ml 300 ml 300 ml Balance -10 ml 360 ml 120 ml -300 ml -300 ml Intake Oral 240 ml 360 ml 120 ml Output Urine Total 250 ml 300 ml 300 ml # Voids 3 0 # Bowel Movements 0 0 0 Objective Remarks GENERAL: Well-nourished, well-developed elderly male patient in [facility]. SKIN: Warm and dry. No rash. Mild superficial abrasion to left distal anterior johnson, covered with Tegaderm, no surrounding warmth or erythema. HEAD: Normocephalic. Atraumatic. CARDIOVASCULAR: Regular rate and rhythm. S1, S2 noted. No murmur appreciated. RESPIRATORY: No accessory muscle use. Clear to auscultation. Breath sounds equal bilaterally. GASTROINTESTINAL: Abdomen soft, non-tender, nondistended. Normoactive bowel sounds x4. MUSCULOSKELETAL: Chronic Right BKA, well-healed. Extremities without clubbing, cyanosis, or edema. NEUROLOGICAL: Awake and alert, oriented to person and place, not month/year. No obvious cranial nerve deficits. Motor grossly within normal limits. Moves all extremities spontaneously. PSYCHIATRIC: Pleasant. Appropriate mood and affect; insight and judgment limited. Procedures None Medications and IVs Current Medications Medications (Trade) Dose Ordered Sig/Estuardo Route Start Time Stop Time Status Last Admin (NS Flush) 2 ml UNSCH PRN FLUSH 10/15/15 23:30 (NS Flush) 2 ml BID FLUSH 10/16/15 09:00 01/24/16 21:10 Atorvastatin Calcium 80 mg 80 mg DAILY PO 10/16/15 09:00 01/30/16 09:25 (Coumadin Consult Pharmacy) 0 ml @ 0 mls/hr UNSCH XX 10/30/15 05:30 (Tylenol) 650 mg Q4H PRN PO 10/30/15 05:30 (Tums Chew) 1,000 mg TID PRN CHEW 10/30/15 05:30 (Catapres) 0.1 mg Q6H PRN PO 10/30/15 05:30 01/23/16 21:13 (Mycostatin Powder) 1 applic DAILY TOPICAL 10/31/15 18:00 01/30/16 09:26 (Geni-Colace) 2 tab BID PO 11/03/15 09:00 01/30/16 09:25 (Lactulose Liq) 30 ml DAILY PO 11/04/15 09:00 01/30/16 09:25 (Diprosone 0.05% Ointment) 1 applic BID TOP 12/08/15 12:30 01/30/16 09:26 (Coreg) 25 mg BID PO 12/12/15 21:00 01/30/16 09:25 (Miralax) 17 gm DAILY PRN PO 12/14/15 17:00 01/24/16 07:59 (Pill Splitter) 1 ea UNSCH PRN OTHER 12/15/15 09:15 (Zofran Odt) 4 mg Q4H PRN PO 12/30/15 11:00 (Imdur) 60 mg HS PO 01/11/16 21:00 01/29/16 21:43 (Vasotec) 2.5 mg DAILY PO 01/12/16 09:00 01/30/16 09:25 (Eucerin Cream) 1 applic Q12HR TOPICAL 01/13/16 21:00 01/30/16 09:26 (Coumadin) 5 mg DAILY@16 PO 01/14/16 16:00 01/29/16 15:29 (SEROquel) 25 mg BID PO 01/23/16 09:00 01/30/16 09:25 Urinary Catheter: No Vascular Central Line Catheter: No A/P Problem List: (1) Cellulitis ICD Code: L03.90 Status: Resolved (2) Ischemic cardiomyopathy ICD Code: I25.5 Status: Chronic (3) Diabetes mellitus type 2 in obese ICD Code: E11.9 Status: Chronic (4) S/P BKA (below knee amputation) unilateral ICD Code: Z89.519 Status: Chronic (5) Acute metabolic encephalopathy ICD Code: G93.41 Status: Resolved (6) Bacteremia ICD Code: R78.81 Status: Resolved (7) Chronic systolic (congestive) heart failure ICD Code: I50.22 Status: Chronic (8) Venous stasis ulcer of left lower extremity ICD Code: I83.029 Status: Chronic (9) CVA (cerebral vascular accident) ICD Code: I63.9 Status: Chronic (10) Seborrheic dermatitis ICD Code: L21.9 Status: Resolved Assessment and Plan 60-year-old male admitted 10/14 with acute cortical infarct Bilateral CVA with Suspected Dementia: MRI 10/20/15 showed Acute Cortical Infarct. MRA of head and neck unremarkable. S/p ASA and Plavix. -Continue with Statin, Coumadin and monitor INR/PT, keep INR between 2 and 3 (pharmacy assisting) -Discharged from physical therapy as he has reached maximum benefit here -Continue OT and transfer with nursing as able Ischemic Cardiomyopathy/chronic systolic CHF LVEF 35% on echo 03/2015. Denies shortness of breath. Compensated. -Continue Coreg, Imdur, enalapril. -Could consider AICD if patient is able to consent however currently unable -Fluid and sodium restrictions, follow volume status. CKD stage 4: suspect diabetic nephropathy. Chronic, stable. -Avoid nephrotoxins. -Monitor with BMP periodically Hypertension. Chronic, controlled. -Continue enalapril and carvedilol. -Continue to monitor BP and adjust antihypertensives as needed. Diabetic mellitus: Glucose was well controlled on diet alone. Discontinued all insulin. -Accu-checks discontinued as patient's blood sugar well controlled, Hgb A1c 6.9. -diabetic diet Sepsis secondary to cellulitis and bacteremia. S/p IV abx. Repeat blood cultures from 10/15 and 10/30 with no growth. Resolved. Cellulitis of LLE: Chronic venous stasis ulcers on LLE. Wound cultures MSSA, Serratia marcescens. Dr. Messina/[facility] ff; was on Keflex and Cipro for 10 days, completed 10/26. Resolved. PAD -stable. Continue above meds Intermittent Agitation: patient intermittently refusing meds, however now resolved. -doing well, continue on seroquel -01/28 again discussed importance of compliance with medications Constipation-on cathartics and laxity of daily. MiraLAX as needed. -01/29, no BM in at least 3 days per patient, none documented since 01/23. Receiving geni-colace bid and lactulose daily, however will schedule Miralax daily and added Milk of Mag prn. DVT prophylaxis with Coumadin Discharge Planning Case management assisting with discharge planning, needs placement. Problem Qualifiers (1) Cellulitis: (2) S/P BKA (below knee amputation) unilateral: Qualified Code: Z89.511 - S/P BKA (below knee amputation) unilateral, right (3) CVA (cerebral vascular accident): Qualified Code: I63.9 - Cerebrovascular accident (CVA), unspecified mechanism Rosaura Patel PA-C Jan 30, 2016 13:13
[2016-01-30] MEDS: POLYETHYLENE GLYCOL 17 GM PKG PO SCH (15:00)
[2016-01-30] MEDS: WARFARIN SOD 5 MG TAB PO SCH (15:00)
[2016-01-30 15:57] VITALS: BP 150/83; PULSE 73; RESP 20; TEMP 96.7; O2SAT 96
[2016-01-30] MEDS: MAGNESIUM HYDROXIDE SUSP 30 ML CUP PO PRN (16:42)
[2016-01-30 20:51] VITALS: BP 106/68; PULSE 80; RESP 20; TEMP 98.5; O2SAT 98
[2016-01-30] MEDS: ISOSORBIDE MONONITRATE 60 MG TAB PO SCH (21:25)
[2016-01-31 00:53] VITALS: BP 108/64; PULSE 76; RESP 18; TEMP 98.6; O2SAT 98
[2016-01-31 04:27] VITALS: BP 102/58; PULSE 72; RESP 16; TEMP 96.6; O2SAT 96
[2016-01-31 07:21] LABS: INTERNATIONAL NORMALIZED RATIO 2.7 RATIO; PROTHROMBIN TIME - PATIENT 29.5 SEC (9.8-11.4)
[2016-01-31 08:00] VITALS: BP 105/69; PULSE 71; RESP 20; TEMP 96.2; O2SAT 94
[2016-01-31] MEDS: SODIUM CHLORIDE 0.9% FLUSH 5 ML FLUSH FLUSH SCH ×2 (08:16→21:00)
[2016-01-31] MEDS: QUEtiapine FUMARATE 25 MG TAB PO SCH ×2 (08:16→22:26)
[2016-01-31] MEDS: DOCUSATE SODIUM 50 MG/SENNA 8.6 MG TAB PO SCH ×2 (08:16→22:20)
[2016-01-31] MEDS: ATORVASTATIN 80 MG TAB PO SCH (08:16)
[2016-01-31] MEDS: POLYETHYLENE GLYCOL 17 GM PKG PO SCH (08:16)
[2016-01-31] MEDS: NYSTATIN 100,000 U/GM PWD 15 GM BTL TOPICAL SCH (08:17)
[2016-01-31] MEDS: ENALAPRIL MALEATE 2.5 MG TAB PO SCH (08:17)
[2016-01-31] MEDS: EUCERIN CREAM 120 GM JAR TOPICAL SCH ×2 (08:17→22:23)
[2016-01-31] MEDS: BETAMETHASONE DIPROPIONATE 0.05% OINT 15 GM TUBE TOP SCH ×2 (08:17→22:23)
[2016-01-31] MEDS: LACTULOSE SYRUP 20 GM/30 ML CUP PO SCH (08:18)
[2016-01-31] MEDS: CARVEDILOL 12.5 MG TAB PO SCH ×2 (08:20→21:00)
[2016-01-31 12:00] VITALS: BP 92/64; PULSE 75; RESP 20; TEMP 96.9; O2SAT 96
--- NOTE | 2016-01-31 13:59 | HHI.PR ---
Subjective Remarks Follow-up for CVA. The patient has no acute complaints today except that he wants to get out of here, he does not really elaborate. No change. Objective Vitals Vital Signs Date Time Temp Pulse Resp B/P Pulse Ox O2 Delivery O2 Flow Rate FiO2 01/31/16 12:00 96.9 75 20 92/64 96 01/31/16 08:00 96.2 71 20 105/69 94 01/31/16 04:27 96.6 72 16 102/58 96 01/31/16 00:53 98.6 76 18 108/64 98 01/30/16 20:51 98.5 80 20 106/68 98 01/30/16 15:57 96.7 73 20 150/83 96 I/O 01/30/16 01/30/16 01/30/16 01/31/16 01/31/16 01/31/16 07:00 15:00 23:00 07:00 15:00 23:00 Intake Total 120 ml 100 ml 0 ml Output Total 300 ml 300 ml 150 ml Balance -300 ml -180 ml -50 ml 0 ml Intake Oral 120 ml 100 ml 0 ml Output Urine Total 300 ml 300 ml 150 ml # Voids 0 0 # Bowel Movements 0 0 Objective Remarks GENERAL: Well-developed well-nourished. In no acute distress. SKIN: Warm and dry. Scaly skin of the face. HEENT: Normocephalic. Pupils equal and round. CARDIOVASCULAR: Regular rate and rhythm. No murmur appreciated. RESPIRATORY: No accessory muscle use. Clear to auscultation. Breath sounds equal bilaterally. GASTROINTESTINAL: Abdomen soft, non-tender, nondistended. Bowel sounds x4. MUSCULOSKELETAL: Right BKA. No clubbing or cyanosis. No edema. NEUROLOGICAL: Awake and alert. Moves upper and lower extremities spontaneously. Normal speech. PSYCHIATRIC: Pleasantly confused mood and affect; insight and judgment poor. Procedures None A/P Problem List: (1) Cellulitis ICD Code: L03.90 Status: Resolved (2) Ischemic cardiomyopathy ICD Code: I25.5 Status: Chronic (3) Diabetes mellitus type 2 in obese ICD Code: E11.9 Status: Chronic (4) S/P BKA (below knee amputation) unilateral ICD Code: Z89.519 Status: Chronic (5) Acute metabolic encephalopathy ICD Code: G93.41 Status: Resolved (6) Bacteremia ICD Code: R78.81 Status: Resolved (7) Chronic systolic (congestive) heart failure ICD Code: I50.22 Status: Chronic (8) Venous stasis ulcer of left lower extremity ICD Code: I83.029 Status: Chronic (9) CVA (cerebral vascular accident) ICD Code: I63.9 Status: Chronic (10) Seborrheic dermatitis ICD Code: L21.9 Status: Resolved Assessment and Plan 60-year-old male with Admitted 10/14 with acute cortical infarct - Bilateral CVA:MRI showed acute cortical infarct. MRA of head and neck unremarkable. Neurology following. S/p ASA and Plavix. -Continue with Statin. -Continue Coumadin 3 mg daily and monitor INR/PT keep INR between 2 and 3, pharmacy consulted for assistance with management. -Discharged from physical therapy as he has reached maximum benefit here. Continue OT and transfer with nursing as able Ischemic Cardiomyopathy/chronic systolic CHF LVEF 35% on echo 03/2015. Denies shortness of breath. Compensated. -Continue Coreg, Imdur, enalapril. -Could consider AICD if patient is able to consent, however patient is currently unable to consent -Fluid and sodium restrictions, follow volume status. 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 -Avoid nephrotoxins. -Monitor BMP intermittently - Diabetic mellitus - Glucose was well controlled. All insulin discontinued. -accu-checks discontinued as patient's blood sugar well controlled and Hgb A1c 6.9. -continue diet control - PAD -stable. Continue above meds Intermittent agitation -Continue Seroquel -01/30 currently the patient is taking his medications Constipation-on cathartics and laxatives daily. Milk of magnesia as needed. -BM recorded on 10/29. Continue to monitor - DVT prophylaxis with Coumadin Discharge Planning Discharge to SNF when arranged. Problem Qualifiers (1) Cellulitis: (2) S/P BKA (below knee amputation) unilateral: Qualified Code: Z89.511 - S/P BKA (below knee amputation) unilateral, right (3) CVA (cerebral vascular accident): Qualified Code: I63.9 - Cerebrovascular accident (CVA), unspecified mechanism Lars Rich Jan 31, 2016 13:59
[2016-01-31] MEDS: MAGNESIUM HYDROXIDE SUSP 30 ML CUP PO PRN (15:43)
[2016-01-31] MEDS: WARFARIN SOD 5 MG TAB PO SCH (15:44)
[2016-01-31 15:51] VITALS: BP 94/65; PULSE 53; RESP 18; TEMP 98.4; O2SAT 93
[2016-01-31 20:25] VITALS: BP 104/75; PULSE 78; RESP 18; TEMP 99; O2SAT 97
[2016-01-31] MEDS: ISOSORBIDE MONONITRATE 60 MG TAB PO SCH (21:00)
[2016-02-01 00:13] VITALS: BP 119/66; PULSE 88; RESP 20; TEMP 97.2; O2SAT 99
[2016-02-01 04:00] VITALS: BP 98/66; PULSE 66; RESP 18; TEMP 96.1; O2SAT 100
[2016-02-01 08:09] LABS: INTERNATIONAL NORMALIZED RATIO 2.7 RATIO; PROTHROMBIN TIME - PATIENT 29.8 SEC (9.8-11.4)
[2016-02-01 08:20] VITALS: BP 125/62; PULSE 73; RESP 16; TEMP 96.5; O2SAT 99
[2016-02-01] MEDS: NYSTATIN 100,000 U/GM PWD 15 GM BTL TOPICAL SCH (09:00)
[2016-02-01] MEDS: SODIUM CHLORIDE 0.9% FLUSH 5 ML FLUSH FLUSH SCH ×2 (09:00→21:00)
[2016-02-01] MEDS: LACTULOSE SYRUP 20 GM/30 ML CUP PO SCH (09:00)
[2016-02-01] MEDS: BETAMETHASONE DIPROPIONATE 0.05% OINT 15 GM TUBE TOP SCH ×2 (09:00→21:19)
[2016-02-01] MEDS: EUCERIN CREAM 120 GM JAR TOPICAL SCH ×2 (09:00→21:20)
[2016-02-01] MEDS: ENALAPRIL MALEATE 2.5 MG TAB PO SCH (09:49)
[2016-02-01] MEDS: ATORVASTATIN 80 MG TAB PO SCH (09:49)
[2016-02-01] MEDS: QUEtiapine FUMARATE 25 MG TAB PO SCH ×2 (09:49→21:19)
[2016-02-01] MEDS: CARVEDILOL 12.5 MG TAB PO SCH ×2 (09:49→21:18)
[2016-02-01] MEDS: POLYETHYLENE GLYCOL 17 GM PKG PO SCH (09:50)
[2016-02-01] MEDS: DOCUSATE SODIUM 50 MG/SENNA 8.6 MG TAB PO SCH ×2 (09:50→21:19)
[2016-02-01 12:34] VITALS: BP 137/74; PULSE 75; RESP 17; TEMP 98.2; O2SAT 96
--- NOTE | 2016-02-01 13:13 | HHI.PR ---
Subjective Remarks Follow-up for CVA. The patient has no acute complaints today. He states that he's been out of bed with nursing. He states she's been eating and stooling well. Objective Vitals Vital Signs Date Time Temp Pulse Resp B/P Pulse Ox O2 Delivery O2 Flow Rate FiO2 02/01/16 12:34 98.2 75 17 137/74 96 02/01/16 08:20 96.5 73 16 125/62 99 02/01/16 04:00 96.1 66 18 98/66 100 02/01/16 00:13 97.2 88 20 119/66 99 01/31/16 20:25 99.0 78 18 104/75 97 01/31/16 15:51 98.4 53 18 94/65 93 I/O 01/31/16 01/31/16 01/31/16 02/01/16 02/01/16 02/01/16 07:00 15:00 23:00 07:00 15:00 23:00 Intake Total 0 ml 240 ml Output Total 200 ml 200 ml Balance 0 ml 40 ml -200 ml Intake Oral 0 ml 240 ml Output Urine Total 200 ml Emesis 200 ml # Voids 0 # Bowel Movements 0 1 Objective Remarks GENERAL: Well-developed well-nourished. In no acute distress. SKIN: Warm and dry. Scaly skin of the face. HEENT: Normocephalic. Pupils equal and round. CARDIOVASCULAR: Regular rate and rhythm. No murmur appreciated. RESPIRATORY: No accessory muscle use. Clear to auscultation. Breath sounds equal bilaterally. GASTROINTESTINAL: Abdomen soft, non-tender, nondistended. Bowel sounds x4. MUSCULOSKELETAL: Right BKA. No clubbing or cyanosis. No edema. NEUROLOGICAL: Awake and alert. Moves upper and lower extremities spontaneously. Normal speech. PSYCHIATRIC: Pleasantly confused mood and affect; insight and judgment poor. Procedures None A/P Problem List: (1) Cellulitis ICD Code: L03.90 Status: Resolved (2) Ischemic cardiomyopathy ICD Code: I25.5 Status: Chronic (3) Diabetes mellitus type 2 in obese ICD Code: E11.9 Status: Chronic (4) S/P BKA (below knee amputation) unilateral ICD Code: Z89.519 Status: Chronic (5) Acute metabolic encephalopathy ICD Code: G93.41 Status: Resolved (6) Bacteremia ICD Code: R78.81 Status: Resolved (7) Chronic systolic (congestive) heart failure ICD Code: I50.22 Status: Chronic (8) Venous stasis ulcer of left lower extremity ICD Code: I83.029 Status: Chronic (9) CVA (cerebral vascular accident) ICD Code: I63.9 Status: Chronic (10) Seborrheic dermatitis ICD Code: L21.9 Status: Resolved Assessment and Plan 60-year-old male with Admitted 10/14 with acute cortical infarct - Bilateral CVA:MRI showed acute cortical infarct. MRA of head and neck unremarkable. Neurology following. S/p ASA and Plavix. -Continue with Statin. -Continue Coumadin 3 mg daily and monitor INR/PT keep INR between 2 and 3, pharmacy consulted for assistance with management. -Discharged from PT and OT as he has reached maximum benefit here. Out of bed with nursing as able Ischemic Cardiomyopathy/chronic systolic CHF LVEF 35% on echo 03/2015. Denies shortness of breath. Compensated. -Continue Coreg, Imdur, enalapril. -Could consider AICD if patient is able to consent, however patient is currently unable to consent -Fluid and sodium restrictions, follow volume status. 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 -Avoid nephrotoxins. -Monitor BMP intermittently - Diabetic mellitus - Glucose was well controlled. All insulin discontinued. -accu-checks discontinued as patient's blood sugar well controlled and Hgb A1c 6.9. -continue diet control - PAD -stable. Continue above meds Intermittent agitation -Continue Seroquel -01/31 compliant with meds today Constipation-on cathartics and laxatives daily. Milk of magnesia as needed. -BM recorded on 10/29. Continue to monitor - DVT prophylaxis with Coumadin Discharge Planning Discharge to SNF when arranged. Problem Qualifiers (1) Cellulitis: (2) S/P BKA (below knee amputation) unilateral: Qualified Code: Z89.511 - S/P BKA (below knee amputation) unilateral, right (3) CVA (cerebral vascular accident): Qualified Code: I63.9 - Cerebrovascular accident (CVA), unspecified mechanism Lars Rich Feb 01, 2016 13:13
[2016-02-01] MEDS: WARFARIN SOD 5 MG TAB PO SCH ×2 (16:00→17:43)
[2016-02-01 16:46] VITALS: BP 93/58; PULSE 72; RESP 17; TEMP 97.6; O2SAT 97
[2016-02-01 20:27] VITALS: BP 131/75; PULSE 76; RESP 18; TEMP 97.9; O2SAT 95
[2016-02-01] MEDS: ISOSORBIDE MONONITRATE 60 MG TAB PO SCH (21:18)
[2016-02-02 00:07] VITALS: BP 130/64; PULSE 69; RESP 19; TEMP 98.1; O2SAT 95
[2016-02-02 05:00] VITALS: BP 148/89; PULSE 69; RESP 19; TEMP 97.7; O2SAT 94
[2016-02-02 06:22] LABS: INTERNATIONAL NORMALIZED RATIO 2.3 RATIO; PROTHROMBIN TIME - PATIENT 24.8 SEC (9.8-11.4)
[2016-02-02 08:00] VITALS: BP 151/89; PULSE 70; RESP 18; TEMP 97.1; O2SAT 95
[2016-02-02] MEDS: DOCUSATE SODIUM 50 MG/SENNA 8.6 MG TAB PO SCH ×2 (08:31→22:32)
[2016-02-02] MEDS: QUEtiapine FUMARATE 25 MG TAB PO SCH ×2 (08:31→22:32)
[2016-02-02] MEDS: POLYETHYLENE GLYCOL 17 GM PKG PO SCH (08:31)
[2016-02-02] MEDS: ENALAPRIL MALEATE 2.5 MG TAB PO SCH (08:31)
[2016-02-02] MEDS: CARVEDILOL 12.5 MG TAB PO SCH ×2 (08:31→22:32)
[2016-02-02] MEDS: ATORVASTATIN 80 MG TAB PO SCH (08:31)
[2016-02-02] MEDS: SODIUM CHLORIDE 0.9% FLUSH 5 ML FLUSH FLUSH SCH ×2 (08:32→21:00)
[2016-02-02] MEDS: LACTULOSE SYRUP 20 GM/30 ML CUP PO SCH (08:32)
[2016-02-02] MEDS: BETAMETHASONE DIPROPIONATE 0.05% OINT 15 GM TUBE TOP SCH ×2 (09:00→22:33)
[2016-02-02] MEDS: EUCERIN CREAM 120 GM JAR TOPICAL SCH ×2 (09:00→22:33)
[2016-02-02] MEDS: NYSTATIN 100,000 U/GM PWD 15 GM BTL TOPICAL SCH (09:00)
--- NOTE | 2016-02-02 09:37 | HHI.PR ---
Subjective Remarks no complains, smiling and interactive voiding and moving bowels spontaneously Objective Vitals Vital Signs Date Time Temp Pulse Resp B/P Pulse Ox O2 Delivery O2 Flow Rate FiO2 02/02/16 08:00 97.1 70 18 151/89 95 02/02/16 05:00 97.7 69 19 148/89 94 02/02/16 00:07 98.1 69 19 130/64 95 02/01/16 20:27 97.9 76 18 131/75 95 02/01/16 16:46 97.6 72 17 93/58 97 02/01/16 12:34 98.2 75 17 137/74 96 I/O 02/01/16 02/01/16 02/01/16 02/02/16 02/02/16 02/02/16 07:00 15:00 23:00 07:00 15:00 23:00 Intake Total 480 ml Output Total 950 ml 500 ml Balance 480 ml -950 ml -500 ml Intake Oral 480 ml Output Urine Total 950 ml 500 ml # Voids 3 1 # Bowel Movements 0 Imaging Last Impressions Chest X-Ray 11/06/15 0000 Signed Impressions: Service Date/Time: Friday, November 06, 2015 11:35 - CONCLUSION: Compensated cardiomegaly, history of bypass otherwise negative. Superior most sternal wire is fractured. Didier Clay MD FACR Liver Ultrasound 10/30/15 0000 Signed Impressions: Service Date/Time: Friday, October 30, 2015 17:29 - CONCLUSION: 1. Cholelithiasis with probable gallbladder sludge and mild gallbladder distention. 2. Splenomegaly. Sameer Alexandra MD Modified Barium Swallow 10/27/15 0000 Signed Impressions: Service Date/Time: Tuesday, October 27, 2015 00:00 - CONCLUSION: Negative for penetration or aspiration. Please see speech pathology report. Tai Cohen MD Brain MRI 10/22/15 0000 Signed Impressions: Service Date/Time: September 14:38 - CONCLUSION: 1. No significant interval change is identified. There is stable restricted diffusion in the left basal ganglia representing an area of recent ischemia. There are no findings to indicate hemorrhagic transformation. The previously documented signal change within the right cerebral peduncle has nearly normalized. 2. Stable chronic white matter changes. Camacho Culp MD Neck Magnetic Resonance Angiography 10/21/15 0000 Signed Impressions: Service Date/Time: Wednesday, October 21, 2015 12:52 - CONCLUSION: . 1. Unremarkable MRA of the carotid arteries bilaterally. 2. Nonspecific possible collateral vessels in the soft tissues posterior to the right vertebral artery. The right verbal artery appears to be patent. If clinically indicated, a CTA could be performed for further evaluation. Abiodun Hall MD Head Magnetic Resonance Angiography 10/21/15 Signed Impressions: Service Date/Time: Wednesday, October 21, 2015 12:52 - CONCLUSION: Unremarkable MRA of the brain. Abiodun Hall MD Head CT 10/15/152116 Signed Impressions: Service Date/Time: September 21:47 - CONCLUSION: 1. No evidence of hemorrhage or mass effect. 2. Lacunar infarct right thalamus, left basal ganglia and adjacent to the left lateral ventricular body. 3. No skull fracture seen. Daryl Varner MD Objective Remarks GENERAL: awake and alert SKIN: Warm and dry. HEAD: Normocephalic. EYES: No scleral icterus. No injection or drainage. NECK: Supple, trachea midline. No JVD or lymphadenopathy. CARDIOVASCULAR: Regular rate and rhythm without murmurs, gallops, or rubs. RESPIRATORY: Breath sounds equal bilaterally. No accessory muscle use. GASTROINTESTINAL: Abdomen soft, non-tender, nondistended. MUSCULOSKELETAL: right BKA stump well healed, left tibial surface with small erythematous area BACK: Nontender without obvious deformity. No CVA tenderness. Procedures None A/P Problem List: (1) Cellulitis ICD Code: L03.90 Status: Resolved (2) Ischemic cardiomyopathy ICD Code: I25.5 Status: Chronic (3) Diabetes mellitus type 2 in obese ICD Code: E11.9 Status: Chronic (4) S/P BKA (below knee amputation) unilateral ICD Code: Z89.519 Status: Chronic (5) Acute metabolic encephalopathy ICD Code: G93.41 Status: Resolved (6) Bacteremia ICD Code: R78.81 Status: Resolved (7) Chronic systolic (congestive) heart failure ICD Code: I50.22 Status: Chronic (8) Venous stasis ulcer of left lower extremity ICD Code: I83.029 Status: Chronic (9) CVA (cerebral vascular accident) ICD Code: I63.9 Status: Chronic (10) Seborrheic dermatitis ICD Code: L21.9 Status: Resolved Assessment and Plan 60-year-old male with Admitted 10/14 with acute cortical infarct - Bilateral CVA:MRI showed acute cortical infarct. MRA of head and neck unremarkable. Neurology following. S/p ASA and Plavix. -Continue with Statin. -Continue Coumadin 3 mg daily and monitor INR/PT keep INR between 2 and 3, pharmacy ff -Discharged from PT and OT as he has reached maximum benefit here. Out of bed with nursing as able Ischemic Cardiomyopathy/chronic systolic CHF LVEF 35% on echo 03/2015. Denies shortness of breath. Compensated. -Continue Coreg, Imdur, enalapril. -Could consider AICD if patient is able to consent, however patient is currently unable to consent -Fluid and sodium restrictions, follow volume status. 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 -Avoid nephrotoxins. -Monitor BMP intermittently - left tibial surface- with superficial wound with mild erythema Bacitracin bid - Diabetic mellitus - Glucose was well controlled. All insulin discontinued. -accu-checks discontinued as patient's blood sugar well controlled and Hgb A1c 6.9. -continue diet control - PAD -stable. Continue above meds - Intermittent agitation -Continue Seroquel Constipation-on cathartics and laxatives daily. Milk of magnesia as needed. -BM recorded on 10/29. Continue to monitor - DVT prophylaxis - patient on Coumadin Problem Qualifiers (1) Cellulitis: (2) S/P BKA (below knee amputation) unilateral: Qualified Code: Z89.511 - S/P BKA (below knee amputation) unilateral, right (3) CVA (cerebral vascular accident): Qualified Code: I63.9 - Cerebrovascular accident (CVA), unspecified mechanism Chinyere Soriano MD Feb 02, 2016 09:37
[2016-02-02] MEDS: BACITRACIN TOP OINT 15 GM TUBE TOP SCH ×3 (11:00→22:33)
[2016-02-02 12:00] VITALS: BP 139/89; PULSE 66; RESP 20; TEMP 95.5; O2SAT 98
[2016-02-02 16:00] VITALS: BP 148/87; PULSE 70; RESP 18; TEMP 96.1; O2SAT 98
[2016-02-02] MEDS: WARFARIN SOD 5 MG TAB PO SCH (16:00)
[2016-02-02 20:00] VITALS: BP 153/89; PULSE 72; RESP 18; TEMP 98.4; O2SAT 94; O2SAT 98
[2016-02-02] MEDS: ISOSORBIDE MONONITRATE 60 MG TAB PO SCH (22:32)
[2016-02-03 01:00] VITALS: BP 115/80; PULSE 75; RESP 19; TEMP 96.9; O2SAT 97
[2016-02-03 04:00] VITALS: BP 110/68
[2016-02-03] MEDS: BACITRACIN TOP OINT 15 GM TUBE TOP SCH ×3 (06:17→22:04)
[2016-02-03 08:43] VITALS: BP 99/64; PULSE 101; RESP 20; TEMP 96.5; O2SAT 96
[2016-02-03] MEDS: SODIUM CHLORIDE 0.9% FLUSH 5 ML FLUSH FLUSH SCH ×2 (09:00→21:00)
[2016-02-03] MEDS: ATORVASTATIN 80 MG TAB PO SCH (09:37)
[2016-02-03] MEDS: POLYETHYLENE GLYCOL 17 GM PKG PO SCH (09:37)
[2016-02-03] MEDS: CARVEDILOL 12.5 MG TAB PO SCH ×2 (09:37→22:04)
[2016-02-03] MEDS: LACTULOSE SYRUP 20 GM/30 ML CUP PO SCH (09:37)
[2016-02-03] MEDS: DOCUSATE SODIUM 50 MG/SENNA 8.6 MG TAB PO SCH ×2 (09:37→21:00)
[2016-02-03] MEDS: ENALAPRIL MALEATE 2.5 MG TAB PO SCH (09:37)
[2016-02-03] MEDS: QUEtiapine FUMARATE 25 MG TAB PO SCH ×2 (09:37→22:03)
[2016-02-03] MEDS: NYSTATIN 100,000 U/GM PWD 15 GM BTL TOPICAL SCH (09:38)
[2016-02-03] MEDS: EUCERIN CREAM 120 GM JAR TOPICAL SCH ×2 (09:38→22:04)
[2016-02-03] MEDS: BETAMETHASONE DIPROPIONATE 0.05% OINT 15 GM TUBE TOP SCH ×2 (09:38→22:04)
[2016-02-03 12:00] VITALS: BP 84/58; PULSE 79; RESP 20; TEMP 97.8; O2SAT 97
[2016-02-03] MEDS: WARFARIN SOD 5 MG TAB PO SCH (16:00)
[2016-02-03 16:05] VITALS: BP 88/61; PULSE 73; RESP 20; TEMP 97; O2SAT 98
--- NOTE | 2016-02-03 16:12 | HHI.PR ---
Subjective Remarks Follow up for CVA, awaiting placement. The patient is seen sleeping in bed. He has no medical complaints. States he's eating well. Having BMs. He's taking his medications. BP low, will place hold parameters on medications. Objective Vitals Vital Signs Date Time Temp Pulse Resp B/P Pulse Ox O2 Delivery O2 Flow Rate FiO2 02/03/16 16:05 97.0 73 20 88/61 98 02/03/16 12:00 97.8 79 20 84/58 97 02/03/16 08:43 96.5 101 20 99/64 96 02/03/16 04:00 110/68 Manual Cuff/Palpation Automatic Cuff 02/03/16 01:00 96.9 75 19 115/80 97 02/02/16 20:00 98.4 72 18 153/89 98 I/O 02/02/16 02/02/16 02/02/16 02/03/16 02/03/16 02/03/16 07:00 15:00 23:00 07:00 15:00 23:00 Intake Total 480 ml 380 ml Output Total 500 ml 200 ml 950 ml 175 ml Balance -500 ml 280 ml -950 ml 205 ml Intake Oral 480 ml 380 ml Output Urine Total 500 ml 200 ml 950 ml 175 ml # Voids 1 # Bowel Movements 0 3 Objective Remarks GENERAL: Well-nourished, well-developed elderly male patient in [facility]. SKIN: Warm and dry. No rash. Mild superficial abrasion to left distal anterior johnson, covered with Tegaderm, no surrounding warmth or erythema. HEAD: Normocephalic. Atraumatic. CARDIOVASCULAR: Regular rate and rhythm. S1, S2 noted. No murmur appreciated. RESPIRATORY: No accessory muscle use. Clear to auscultation. Breath sounds equal bilaterally. GASTROINTESTINAL: Abdomen soft, non-tender, nondistended. Normoactive bowel sounds x4. MUSCULOSKELETAL: Chronic Right BKA, well-healed. Extremities without clubbing, cyanosis, or edema. NEUROLOGICAL: Awake and alert, oriented to person and place, not month/year. No obvious cranial nerve deficits. Motor grossly within normal limits. Moves all extremities spontaneously. PSYCHIATRIC: Pleasant. Appropriate mood and affect; insight and judgment limited. Procedures None Medications and IVs Current Medications Medications (Trade) Dose Ordered Sig/Estuardo Route Start Time Stop Time Status Last Admin (NS Flush) 2 ml UNSCH PRN FLUSH 10/15/15 23:30 (NS Flush) 2 ml BID FLUSH 10/16/15 09:00 01/24/16 21:10 Atorvastatin Calcium 80 mg 80 mg DAILY PO 10/16/15 09:00 02/03/16 09:37 (Coumadin Consult Pharmacy) 0 ml @ 0 mls/hr UNSCH XX 10/30/15 05:30 (Tylenol) 650 mg Q4H PRN PO 10/30/15 05:30 (Tums Chew) 1,000 mg TID PRN CHEW 10/30/15 05:30 (Catapres) 0.1 mg Q6H PRN PO 10/30/15 05:30 01/23/16 21:13 (Mycostatin Powder) 1 applic DAILY TOPICAL 10/31/15 18:00 02/03/16 09:38 (Haydee-Colace) 2 tab BID PO 11/03/15 09:00 02/03/16 09:37 (Lactulose Liq) 30 ml DAILY PO 11/04/15 09:00 02/03/16 09:37 (Diprosone 0.05% Ointment) 1 applic BID TOP 12/08/15 12:30 02/03/16 09:38 (Coreg) 25 mg BID PO 12/12/15 21:00 02/03/16 09:37 (Pill Splitter) 1 ea UNSCH PRN OTHER 12/15/15 09:15 (Zofran Odt) 4 mg Q4H PRN PO 12/30/15 11:00 (Imdur) 60 mg HS PO 01/11/16 21:00 02/02/16 22:32 (Vasotec) 2.5 mg DAILY PO 01/12/16 09:00 02/03/16 09:37 (Eucerin Cream) 1 applic Q12HR TOPICAL 01/13/16 21:00 02/03/16 09:38 (Coumadin) 5 mg DAILY@16 PO 01/14/16 16:00 02/02/16 16:00 (SEROquel) 25 mg BID PO 01/23/16 09:00 02/03/16 09:37 (Miralax) 17 gm DAILY PO 01/30/16 13:30 02/03/16 09:37 (Milk Of Magnesia Liq) 30 ml Q6H PRN PO 01/30/16 13:15 01/31/16 15:43 (Baciguent Oint) 1 applic Q8HR TOP 02/02/16 11:00 02/03/16 14:03 Urinary Catheter: No Vascular Central Line Catheter: No A/P Problem List: (1) Cellulitis ICD Code: L03.90 Status: Resolved (2) Ischemic cardiomyopathy ICD Code: I25.5 Status: Chronic (3) Diabetes mellitus type 2 in obese ICD Code: E11.9 Status: Chronic (4) S/P BKA (below knee amputation) unilateral ICD Code: Z89.519 Status: Chronic (5) Acute metabolic encephalopathy ICD Code: G93.41 Status: Resolved (6) Bacteremia ICD Code: R78.81 Status: Resolved (7) Chronic systolic (congestive) heart failure ICD Code: I50.22 Status: Chronic (8) Venous stasis ulcer of left lower extremity ICD Code: I83.029 Status: Chronic (9) CVA (cerebral vascular accident) ICD Code: I63.9 Status: Chronic (10) Seborrheic dermatitis ICD Code: L21.9 Status: Resolved Assessment and Plan 60-year-old male admitted 10/14 with acute cortical infarct Bilateral CVA with Suspected Dementia: MRI 10/20/15 showed Acute Cortical Infarct. MRA of head and neck unremarkable. S/p ASA and Plavix. -Continue with Statin, Coumadin and monitor INR/PT, keep INR between 2 and 3 (pharmacy assisting) -Discharged from PT and OT as he has reached maximum benefit here -Continue transfers with nursing as able, up to chair tid Ischemic Cardiomyopathy/chronic systolic CHF LVEF 35% on echo 03/2015. Denies shortness of breath. Compensated. -Continue Coreg, Imdur, enalapril. -Could consider AICD if patient is able to consent however currently unable -Fluid and sodium restrictions, follow volume status. CKD stage 4: suspect diabetic nephropathy. Chronic, stable. -Avoid nephrotoxins. -Monitor with BMP periodically Hypertension. Chronic, controlled. -Continue enalapril and carvedilol. -Continue to monitor BP and adjust antihypertensives as needed. Diabetic mellitus: Glucose was well controlled on diet alone. Discontinued all insulin. -Accu-checks discontinued as patient's blood sugar well controlled, Hgb A1c 6.9. -diabetic diet Sepsis secondary to cellulitis and bacteremia. S/p IV abx. Repeat blood cultures from 10/15 and 10/30 with no growth. Resolved. Cellulitis of LLE: Chronic venous stasis ulcers on LLE. Wound cultures MSSA, Serratia marcescens. Dr. Messina/ID ff; was on Keflex and Cipro for 10 days, completed 10/26. Resolved. PAD -stable. Continue above meds Intermittent Agitation: patient intermittently refusing meds, however now resolved. -doing well, continue on seroquel -01/28 again discussed importance of compliance with medications Constipation-on Haydee-Colace and MiraLAX daily. Milk of mag prn. Having bowel movements. Resolved for now. Left Anterior Tibial Superficial Abrasion: has some mild erythema -Bacitracin bid -Monitor for improvement DVT prophylaxis with Coumadin Discharge Planning Case management assisting with discharge planning, needs placement. Problem Qualifiers (1) Cellulitis: (2) S/P BKA (below knee amputation) unilateral: Qualified Code: Z89.511 - S/P BKA (below knee amputation) unilateral, right (3) CVA (cerebral vascular accident): Qualified Code: I63.9 - Cerebrovascular accident (CVA), unspecified mechanism Rosaura Patel PA-C Feb 03, 2016 16:12
[2016-02-03 20:00] VITALS: BP 123/72; PULSE 81; RESP 20; TEMP 95.8; O2SAT 99
[2016-02-03] MEDS: ISOSORBIDE MONONITRATE 60 MG TAB PO SCH (22:04)
[2016-02-04 00:28] VITALS: BP 100/59; PULSE 74; RESP 18; TEMP 96.2; O2SAT 97
[2016-02-04 04:16] VITALS: BP 115/71; PULSE 70; RESP 18; TEMP 96.1; O2SAT 96
[2016-02-04] MEDS: BACITRACIN TOP OINT 15 GM TUBE TOP SCH ×3 (05:02→20:59)
[2016-02-04 07:30] LABS: INTERNATIONAL NORMALIZED RATIO 1.8 RATIO; PROTHROMBIN TIME - PATIENT 19.6 SEC (9.8-11.4)
[2016-02-04 08:21] VITALS: BP 150/81; PULSE 70; RESP 18; TEMP 97.3; O2SAT 95
[2016-02-04] MEDS: SODIUM CHLORIDE 0.9% FLUSH 5 ML FLUSH FLUSH SCH ×2 (08:44→20:50)
[2016-02-04] MEDS: LACTULOSE SYRUP 20 GM/30 ML CUP PO SCH (08:46)
[2016-02-04] MEDS: CARVEDILOL 12.5 MG TAB PO SCH ×2 (08:46→20:49)
[2016-02-04] MEDS: POLYETHYLENE GLYCOL 17 GM PKG PO SCH (08:46)
[2016-02-04] MEDS: DOCUSATE SODIUM 50 MG/SENNA 8.6 MG TAB PO SCH ×2 (08:47→20:56)
[2016-02-04] MEDS: QUEtiapine FUMARATE 25 MG TAB PO SCH ×2 (08:47→20:50)
[2016-02-04] MEDS: ENALAPRIL MALEATE 2.5 MG TAB PO SCH (08:53)
[2016-02-04] MEDS: EUCERIN CREAM 120 GM JAR TOPICAL SCH ×2 (08:53→20:58)
[2016-02-04] MEDS: ATORVASTATIN 80 MG TAB PO SCH (08:54)
[2016-02-04] MEDS: NYSTATIN 100,000 U/GM PWD 15 GM BTL TOPICAL SCH ×2 (08:54→09:00)
[2016-02-04] MEDS: BETAMETHASONE DIPROPIONATE 0.05% OINT 15 GM TUBE TOP SCH ×2 (08:54→20:58)
--- NOTE | 2016-02-04 09:56 | HHI.PR ---
Subjective Remarks no complains of headache, fecer or chills, no leg pains Objective Vitals Vital Signs Date Time Temp Pulse Resp B/P Pulse Ox O2 Delivery O2 Flow Rate FiO2 02/04/16 08:21 97.3 70 18 150/81 95 02/04/16 04:16 96.1 70 18 115/71 96 02/04/16 00:28 96.2 74 18 100/59 97 02/03/16 20:00 95.8 81 20 123/72 99 02/03/16 16:05 97.0 73 20 88/61 98 02/03/16 12:00 97.8 79 20 84/58 97 I/O 02/03/16 02/03/16 02/03/16 02/04/16 02/04/16 02/04/16 07:00 15:00 23:00 07:00 15:00 23:00 Intake Total 380 ml 480 ml Output Total 950 ml 175 ml Balance -950 ml 205 ml 480 ml Intake Oral 380 ml 480 ml Output Urine Total 950 ml 175 ml # Voids 2 # Bowel Movements 3 0 Imaging Last Impressions Chest X-Ray 11/06/15 0000 Signed Impressions: Service Date/Time: Friday, November 06, 2015 11:35 - CONCLUSION: Compensated cardiomegaly, history of bypass otherwise negative. Superior most sternal wire is fractured. Didier Clay MD FACR Liver Ultrasound 10/30/15 0000 Signed Impressions: Service Date/Time: Friday, October 30, 2015 17:29 - CONCLUSION: 1. Cholelithiasis with probable gallbladder sludge and mild gallbladder distention. 2. Splenomegaly. Sameer Alexandra MD Modified Barium Swallow 10/27/15 0000 Signed Impressions: Service Date/Time: Tuesday, October 27, 2015 00:00 - CONCLUSION: Negative for penetration or aspiration. Please see speech pathology report. Tai Cohen MD Brain MRI 10/22/15 0000 Signed Impressions: Service Date/Time: September 14:38 - CONCLUSION: 1. No significant interval change is identified. There is stable restricted diffusion in the left basal ganglia representing an area of recent ischemia. There are no findings to indicate hemorrhagic transformation. The previously documented signal change within the right cerebral peduncle has nearly normalized. 2. Stable chronic white matter changes. Camacho Culp MD Neck Magnetic Resonance Angiography 10/21/15 0000 Signed Impressions: Service Date/Time: Wednesday, October 21, 2015 12:52 - CONCLUSION: . 1. Unremarkable MRA of the carotid arteries bilaterally. 2. Nonspecific possible collateral vessels in the soft tissues posterior to the right vertebral artery. The right verbal artery appears to be patent. If clinically indicated, a CTA could be performed for further evaluation. Abiodun Hall MD Head Magnetic Resonance Angiography 10/21/15 0000 Signed Impressions: Service Date/Time: Wednesday, October 21, 2015 12:52 - CONCLUSION: Unremarkable MRA of the brain. Abiodun Hall MD Head CT 10/15/152116 Signed Impressions: Service Date/Time: September 21:47 - CONCLUSION: 1. No evidence of hemorrhage or mass effect. 2. Lacunar infarct right thalamus, left basal ganglia and adjacent to the left lateral ventricular body. 3. No skull fracture seen. Daryl Varner MD Objective Remarks GENERAL: awake and alert SKIN: Warm and dry. HEAD: Normocephalic. EYES: No scleral icterus. No injection or drainage. NECK: Supple, trachea midline. No JVD or lymphadenopathy. CARDIOVASCULAR: Regular rate and rhythm without murmurs, gallops, or rubs. RESPIRATORY: Breath sounds equal bilaterally. No accessory muscle use. GASTROINTESTINAL: Abdomen soft, non-tender, nondistended. MUSCULOSKELETAL: right BKA stump well healed, left tibial surface with small erythematous area BACK: Nontender without obvious deformity. No CVA tenderness. Procedures None A/P Problem List: (1) Cellulitis ICD Code: L03.90 Status: Resolved (2) Ischemic cardiomyopathy ICD Code: I25.5 Status: Chronic (3) Diabetes mellitus type 2 in obese ICD Code: E11.9 Status: Chronic (4) S/P BKA (below knee amputation) unilateral ICD Code: Z89.519 Status: Chronic (5) Acute metabolic encephalopathy ICD Code: G93.41 Status: Resolved (6) Bacteremia ICD Code: R78.81 Status: Resolved (7) Chronic systolic (congestive) heart failure ICD Code: I50.22 Status: Chronic (8) Venous stasis ulcer of left lower extremity ICD Code: I83.029 Status: Chronic (9) CVA (cerebral vascular accident) ICD Code: I63.9 Status: Chronic (10) Seborrheic dermatitis ICD Code: L21.9 Status: Resolved Assessment and Plan 60-year-old male with Admitted 10/14 with acute cortical infarct - Bilateral CVA:MRI showed acute cortical infarct. MRA of head and neck unremarkable. Neurology following. S/p ASA and Plavix. -Continue with Statin. -Continue Coumadin 3 mg daily and monitor INR/PT keep INR between 2 and 3, Pharmacy ff- subtherapeutic today -Discharged from PT and OT as he has reached maximum benefit here. Out of bed with nursing as able Ischemic Cardiomyopathy/chronic systolic CHF LVEF 35% on echo 03/2015. Denies shortness of breath. Compensated. -Continue Coreg, Imdur, enalapril. -Could consider AICD if patient is able to consent, however patient is currently unable to consent -Fluid and sodium restrictions, follow volume status. 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 -Avoid nephrotoxins. -Monitor BMP intermittently - left tibial surface- with superficial wound with mild erythema Bacitracin bid - Diabetic mellitus - Glucose was well controlled. All insulin discontinued. -accu-checks discontinued as patient's blood sugar well controlled and Hgb A1c 6.9. -continue diet control - PAD -stable. Continue above meds - Intermittent agitation- improved -Continue Seroquel Constipation-on cathartics and laxatives daily. Milk of magnesia as needed. Continue to monitor - DVT prophylaxis - patient on Coumadin Problem Qualifiers (1) Cellulitis: (2) S/P BKA (below knee amputation) unilateral: Qualified Code: Z89.511 - S/P BKA (below knee amputation) unilateral, right (3) CVA (cerebral vascular accident): Qualified Code: I63.9 - Cerebrovascular accident (CVA), unspecified mechanism Chinyere Soriano MD Feb 04, 2016 09:55
[2016-02-04 11:33] VITALS: BP 110/70; PULSE 69; RESP 18; TEMP 95.7; O2SAT 98
[2016-02-04 15:47] VITALS: BP 93/59; PULSE 66; RESP 16; TEMP 96.8; O2SAT 97
[2016-02-04] MEDS: WARFARIN SOD 5 MG TAB PO SCH (16:00)
[2016-02-04 20:00] VITALS: BP 154/89; PULSE 69; RESP 20; TEMP 95.8; O2SAT 97
[2016-02-04] MEDS: ISOSORBIDE MONONITRATE 60 MG TAB PO SCH (20:50)
[2016-02-05] VITALS: BP 115/65; PULSE 70; RESP 20; TEMP 96.6; O2SAT 98
[2016-02-05 04:00] VITALS: BP 111/58; PULSE 69; RESP 20; TEMP 96; O2SAT 96
[2016-02-05] MEDS: BACITRACIN TOP OINT 15 GM TUBE TOP SCH ×3 (05:57→20:27)
[2016-02-05 07:52] VITALS: BP 111/55; PULSE 68; RESP 16; TEMP 95.6; O2SAT 98
[2016-02-05] MEDS: SODIUM CHLORIDE 0.9% FLUSH 5 ML FLUSH FLUSH SCH ×2 (09:00→20:12)
[2016-02-05] MEDS: LACTULOSE SYRUP 20 GM/30 ML CUP PO SCH (09:00)
[2016-02-05] MEDS: POLYETHYLENE GLYCOL 17 GM PKG PO SCH (09:00)
[2016-02-05] MEDS: ATORVASTATIN 80 MG TAB PO SCH (09:05)
[2016-02-05] MEDS: CARVEDILOL 12.5 MG TAB PO SCH ×2 (09:06→20:12)
[2016-02-05] MEDS: ENALAPRIL MALEATE 2.5 MG TAB PO SCH (09:06)
[2016-02-05] MEDS: DOCUSATE SODIUM 50 MG/SENNA 8.6 MG TAB PO SCH ×2 (09:07→20:30)
[2016-02-05] MEDS: QUEtiapine FUMARATE 25 MG TAB PO SCH ×2 (09:07→20:12)
[2016-02-05] MEDS: BETAMETHASONE DIPROPIONATE 0.05% OINT 15 GM TUBE TOP SCH ×2 (09:09→20:27)
[2016-02-05] MEDS: EUCERIN CREAM 120 GM JAR TOPICAL SCH ×2 (09:09→20:27)
[2016-02-05] MEDS: NYSTATIN 100,000 U/GM PWD 15 GM BTL TOPICAL SCH (09:09)
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
[2016-02-05 11:41] VITALS: BP 92/50; PULSE 76; RESP 20; TEMP 96.4; O2SAT 96
[2016-02-05 15:40] VITALS: BP 105/59; PULSE 73; RESP 20; TEMP 96.9; O2SAT 95
[2016-02-05] MEDS: WARFARIN SOD 5 MG TAB PO SCH (16:00)
[2016-02-05 20:00] VITALS: BP 134/78; PULSE 76; RESP 18; TEMP 98.2; O2SAT 93
[2016-02-05] MEDS: ISOSORBIDE MONONITRATE 60 MG TAB PO SCH (20:12)
[2016-02-06] VITALS: BP 102/68; PULSE 74; RESP 18; TEMP 96.6; O2SAT 96
[2016-02-06 04:00] VITALS: BP 137/74; PULSE 73; RESP 18; TEMP 98; O2SAT 97
[2016-02-06] MEDS: BACITRACIN TOP OINT 15 GM TUBE TOP SCH ×3 (06:23→23:02)
[2016-02-06 08:00] VITALS: BP 128/78; PULSE 97; RESP 18; TEMP 98.1; O2SAT 98
[2016-02-06 08:27] LABS: INTERNATIONAL NORMALIZED RATIO 2.3 RATIO; PROTHROMBIN TIME - PATIENT 25.4 SEC (9.8-11.4)
[2016-02-06] MEDS: NYSTATIN 100,000 U/GM PWD 15 GM BTL TOPICAL SCH ×2 (09:00→11:03)
[2016-02-06] MEDS: SODIUM CHLORIDE 0.9% FLUSH 5 ML FLUSH FLUSH SCH ×2 (09:00→21:00)
[2016-02-06] MEDS: LACTULOSE SYRUP 20 GM/30 ML CUP PO SCH (09:00)
[2016-02-06] MEDS: POLYETHYLENE GLYCOL 17 GM PKG PO SCH (09:00)
[2016-02-06] MEDS: DOCUSATE SODIUM 50 MG/SENNA 8.6 MG TAB PO SCH ×2 (09:00→23:00)
[2016-02-06] MEDS: QUEtiapine FUMARATE 25 MG TAB PO SCH ×2 (11:01→23:00)
[2016-02-06] MEDS: ATORVASTATIN 80 MG TAB PO SCH (11:01)
[2016-02-06] MEDS: CARVEDILOL 12.5 MG TAB PO SCH ×2 (11:02→23:00)
[2016-02-06] MEDS: ENALAPRIL MALEATE 2.5 MG TAB PO SCH (11:02)
[2016-02-06] MEDS: EUCERIN CREAM 120 GM JAR TOPICAL SCH ×2 (11:03→23:02)
[2016-02-06] MEDS: BETAMETHASONE DIPROPIONATE 0.05% OINT 15 GM TUBE TOP SCH ×2 (11:03→23:02)
[2016-02-06 11:58] VITALS: BP 150/77; PULSE 79; RESP 18; TEMP 97.8; O2SAT 96
[2016-02-06 16:00] VITALS: BP 148/68; PULSE 74; RESP 18; TEMP 97.6; O2SAT 98
[2016-02-06] MEDS: WARFARIN SOD 5 MG TAB PO SCH (16:00)
--- NOTE | 2016-02-06 17:15 | HHI.PR ---
Subjective Remarks status unchanged Objective Vitals Vital Signs Date Time Temp Pulse Resp B/P Pulse Ox O2 Delivery O2 Flow Rate FiO2 02/06/16 16:00 97.6 74 18 148/68 98 02/06/16 11:58 97.8 79 18 150/77 96 02/06/16 08:00 98.1 97 18 128/78 98 02/06/16 04:00 98.0 73 18 137/74 97 02/06/16 00:00 96.6 74 18 102/68 96 02/05/16 20:00 98.2 76 18 134/78 93 I/O 02/05/16 02/05/16 02/05/16 02/06/16 02/06/16 02/06/16 07:00 15:00 23:00 07:00 15:00 23:00 Intake Total 480 ml 120 ml Output Total 500 ml 200 ml 450 ml Balance -20 ml -80 ml -450 ml Intake Oral 480 ml 120 ml Output Urine Total 500 ml 200 ml 450 ml Imaging Last Impressions Chest X-Ray 11/06/15 0000 Signed Impressions: Service Date/Time: Friday, November 06, 2015 11:35 - CONCLUSION: Compensated cardiomegaly, history of bypass otherwise negative. Superior most sternal wire is fractured. Didier Clay MD FACR Liver Ultrasound 10/30/15 0000 Signed Impressions: Service Date/Time: Friday, October 30, 2015 17:29 - CONCLUSION: 1. Cholelithiasis with probable gallbladder sludge and mild gallbladder distention. 2. Splenomegaly. Sameer Alexandra MD Modified Barium Swallow 10/27/15 0000 Signed Impressions: Service Date/Time: Tuesday, October 27, 2015 00:00 - CONCLUSION: Negative for penetration or aspiration. Please see speech pathology report. Tai Cohen MD Brain MRI 10/22/15 0000 Signed Impressions: Service Date/Time: September 14:38 - CONCLUSION: 1. No significant interval change is identified. There is stable restricted diffusion in the left basal ganglia representing an area of recent ischemia. There are no findings to indicate hemorrhagic transformation. The previously documented signal change within the right cerebral peduncle has nearly normalized. 2. Stable chronic white matter changes. Camacho Culp MD Neck Magnetic Resonance Angiography 10/21/15 0000 Signed Impressions: Service Date/Time: Wednesday, October 21, 2015 12:52 - CONCLUSION: . 1. Unremarkable MRA of the carotid arteries bilaterally. 2. Nonspecific possible collateral vessels in the soft tissues posterior to the right vertebral artery. The right verbal artery appears to be patent. If clinically indicated, a CTA could be performed for further evaluation. Abiodun Hall MD Head Magnetic Resonance Angiography 10/21/15 0000 Signed Impressions: Service Date/Time: Wednesday, October 21, 2015 12:52 - CONCLUSION: Unremarkable MRA of the brain. Abiodun Hall MD Head CT 10/15/152116 Signed Impressions: Service Date/Time: September 21:47 - CONCLUSION: 1. No evidence of hemorrhage or mass effect. 2. Lacunar infarct right thalamus, left basal ganglia and adjacent to the left lateral ventricular body. 3. No skull fracture seen. Daryl Varner MD Objective Remarks GENERAL: awake and alert, oriented to person SKIN: Warm and dry. HEAD: Normocephalic. EYES: No scleral icterus. No injection or drainage. NECK: Supple, trachea midline. No JVD or lymphadenopathy. CARDIOVASCULAR: Regular rate and rhythm without murmurs, gallops, or rubs. RESPIRATORY: Breath sounds equal bilaterally. No accessory muscle use. GASTROINTESTINAL: Abdomen soft, non-tender, nondistended. MUSCULOSKELETAL: right BKA stump well healed, left tibial surface with small erythematous area- improved - healed, good range of motions both knees BACK: Nontender without obvious deformity. No CVA tenderness. Procedures None A/P Problem List: (1) Cellulitis ICD Code: L03.90 Status: Resolved (2) Ischemic cardiomyopathy ICD Code: I25.5 Status: Chronic (3) Diabetes mellitus type 2 in obese ICD Code: E11.9 Status: Chronic (4) S/P BKA (below knee amputation) unilateral ICD Code: Z89.519 Status: Chronic (5) Acute metabolic encephalopathy ICD Code: G93.41 Status: Resolved (6) Bacteremia ICD Code: R78.81 Status: Resolved (7) Chronic systolic (congestive) heart failure ICD Code: I50.22 Status: Chronic (8) Venous stasis ulcer of left lower extremity ICD Code: I83.029 Status: Chronic (9) CVA (cerebral vascular accident) ICD Code: I63.9 Status: Chronic (10) Seborrheic dermatitis ICD Code: L21.9 Status: Resolved Assessment and Plan 60-year-old male with Admitted 10/14 with acute cortical infarct - Bilateral CVA:MRI showed acute cortical infarct. MRA of head and neck unremarkable. Neurology following. S/p ASA and Plavix. -Continue with Statin. -Continue Coumadin 3 mg daily and monitor INR/PT keep INR between 2 and 3, Pharmacy ff- -Discharged from PT and OT as he has reached maximum benefit here. Out of bed with nursing as able Ischemic Cardiomyopathy/chronic systolic CHF LVEF 35% on echo 03/2015. Denies shortness of breath. Compensated. -Continue Coreg, Imdur, enalapril. -Could consider AICD if patient is able to consent, however patient is currently unable to consent -Fluid and sodium restrictions, follow volume status. 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 -Avoid nephrotoxins. -Monitor BMP intermittently - left tibial surface- with superficial wound with mild erythema- improving Bacitracin bid - Diabetic mellitus - Glucose was well controlled. All insulin discontinued. -accu-checks discontinued as patient's blood sugar well controlled and Hgb A1c 6.9. -continue diet control - PAD -stable. Continue above meds - Intermittent agitation- improved -Continue Seroquel Constipation-on cathartics and laxatives daily. Milk of magnesia as needed. Continue to monitor - DVT prophylaxis - patient on Coumadin Problem Qualifiers (1) Cellulitis: (2) S/P BKA (below knee amputation) unilateral: Qualified Code: Z89.511 - S/P BKA (below knee amputation) unilateral, right (3) CVA (cerebral vascular accident): Qualified Code: I63.9 - Cerebrovascular accident (CVA), unspecified mechanism Chinyere Soriano MD Feb 06, 2016 17:15
[2016-02-06 19:30] VITALS: BP 115/77; PULSE 82; RESP 20; TEMP 97; O2SAT 98
[2016-02-06] MEDS: ISOSORBIDE MONONITRATE 60 MG TAB PO SCH (23:00)
[2016-02-07] VITALS (7 sets, daily range): BP systolic 92–122; BP diastolic 58–71; PULSE 68–82; RESP 18–20; TEMP 97–98.1; O2SAT 96–98
[2016-02-07] MEDS: BACITRACIN TOP OINT 15 GM TUBE TOP SCH ×3 (07:06→22:32)
[2016-02-07] MEDS: QUEtiapine FUMARATE 25 MG TAB PO SCH ×2 (08:41→22:31)
[2016-02-07] MEDS: LACTULOSE SYRUP 20 GM/30 ML CUP PO SCH (08:41)
[2016-02-07] MEDS: ATORVASTATIN 80 MG TAB PO SCH (08:41)
[2016-02-07] MEDS: ENALAPRIL MALEATE 2.5 MG TAB PO SCH ×2 (08:41→08:47)
[2016-02-07] MEDS: DOCUSATE SODIUM 50 MG/SENNA 8.6 MG TAB PO SCH ×2 (08:41→22:32)
[2016-02-07] MEDS: SODIUM CHLORIDE 0.9% FLUSH 5 ML FLUSH FLUSH SCH ×2 (08:41→21:00)
[2016-02-07] MEDS: POLYETHYLENE GLYCOL 17 GM PKG PO SCH (08:41)
[2016-02-07] MEDS: CARVEDILOL 12.5 MG TAB PO SCH ×2 (08:41→22:31)
[2016-02-07] MEDS: EUCERIN CREAM 120 GM JAR TOPICAL SCH ×2 (08:42→22:32)
[2016-02-07] MEDS: BETAMETHASONE DIPROPIONATE 0.05% OINT 15 GM TUBE TOP SCH ×2 (08:42→22:32)
[2016-02-07] MEDS: NYSTATIN 100,000 U/GM PWD 15 GM BTL TOPICAL SCH (08:42)
--- NOTE | 2016-02-07 11:21 | HHI.PR ---
Subjective Remarks states he feels lousy but denies any pain Objective Vitals Vital Signs Date Time Temp Pulse Resp B/P Pulse Ox O2 Delivery O2 Flow Rate FiO2 02/07/16 08:06 98.1 73 18 99/61 96 02/07/16 06:41 70 19 98/61 98 02/07/16 04:00 97.0 68 20 92/58 98 02/07/16 00:00 97.0 82 18 121/71 97 02/06/16 19:30 97.0 82 20 115/77 98 02/06/16 16:00 97.6 74 18 148/68 98 02/06/16 11:58 97.8 79 18 150/77 96 I/O 02/06/16 02/06/16 02/06/16 02/07/16 02/07/16 02/07/16 07:00 15:00 23:00 07:00 15:00 23:00 Intake Total 480 ml Output Total 450 ml 800 ml Balance -450 ml 480 ml -800 ml Intake Oral 480 ml Output Urine Total 450 ml 800 ml # Voids 3 3 # Bowel Movements 0 Imaging Last Impressions Chest X-Ray 11/06/15 0000 Signed Impressions: Service Date/Time: Friday, November 06, 2015 11:35 - CONCLUSION: Compensated cardiomegaly, history of bypass otherwise negative. Superior most sternal wire is fractured. Didier Clay MD FACR Liver Ultrasound 10/30/15 0000 Signed Impressions: Service Date/Time: Friday, October 30, 2015 17:29 - CONCLUSION: 1. Cholelithiasis with probable gallbladder sludge and mild gallbladder distention. 2. Splenomegaly. Sameer Alexandra MD Modified Barium Swallow 10/27/15 0000 Signed Impressions: Service Date/Time: Tuesday, October 27, 2015 00:00 - CONCLUSION: Negative for penetration or aspiration. Please see speech pathology report. Tai Cohen MD Brain MRI 10/22/15 0000 Signed Impressions: Service Date/Time: September 14:38 - CONCLUSION: 1. No significant interval change is identified. There is stable restricted diffusion in the left basal ganglia representing an area of recent ischemia. There are no findings to indicate hemorrhagic transformation. The previously documented signal change within the right cerebral peduncle has nearly normalized. 2. Stable chronic white matter changes. Camacho Culp MD Neck Magnetic Resonance Angiography 10/21/15 0000 Signed Impressions: Service Date/Time: Wednesday, October 21, 2015 12:52 - CONCLUSION: . 1. Unremarkable MRA of the carotid arteries bilaterally. 2. Nonspecific possible collateral vessels in the soft tissues posterior to the right vertebral artery. The right verbal artery appears to be patent. If clinically indicated, a CTA could be performed for further evaluation. Abiodun Hall MD Head Magnetic Resonance Angiography 10/21/15 0000 Signed Impressions: Service Date/Time: Wednesday, October 21, 2015 12:52 - CONCLUSION: Unremarkable MRA of the brain. Abiodun Hall MD Head CT 10/15/152116 Signed Impressions: Service Date/Time: September 21:47 - CONCLUSION: 1. No evidence of hemorrhage or mass effect. 2. Lacunar infarct right thalamus, left basal ganglia and adjacent to the left lateral ventricular body. 3. No skull fracture seen. Daryl Varner MD Objective Remarks GENERAL: awake and alert, oriented to person and year SKIN: Warm and dry. HEAD: Normocephalic. EYES: No scleral icterus. No injection or drainage. NECK: Supple, trachea midline. No JVD or lymphadenopathy. CARDIOVASCULAR: Regular rate and rhythm without murmurs, gallops, or rubs. RESPIRATORY: Breath sounds equal bilaterally. No accessory muscle use. GASTROINTESTINAL: Abdomen soft, non-tender, nondistended. MUSCULOSKELETAL: right BKA stump well healed, left tibial surface with small erythematous area- improved - healed, good range of motions both knees posterior aspect of the left leg- mild erythema BACK: Nontender without obvious deformity. No CVA tenderness. Procedures None A/P Problem List: (1) Cellulitis ICD Code: L03.90 Status: Resolved (2) Ischemic cardiomyopathy ICD Code: I25.5 Status: Chronic (3) Diabetes mellitus type 2 in obese ICD Code: E11.9 Status: Chronic (4) S/P BKA (below knee amputation) unilateral ICD Code: Z89.519 Status: Chronic (5) Acute metabolic encephalopathy ICD Code: G93.41 Status: Resolved (6) Bacteremia ICD Code: R78.81 Status: Resolved (7) Chronic systolic (congestive) heart failure ICD Code: I50.22 Status: Chronic (8) Venous stasis ulcer of left lower extremity ICD Code: I83.029 Status: Chronic (9) CVA (cerebral vascular accident) ICD Code: I63.9 Status: Chronic (10) Seborrheic dermatitis ICD Code: L21.9 Status: Resolved Assessment and Plan 60-year-old male with Admitted 10/14 with acute cortical infarct - Bilateral CVA:MRI showed acute cortical infarct. MRA of head and neck unremarkable. Neurology following. S/p ASA and Plavix. -Continue with Statin. -Continue Coumadin 3 mg daily and monitor INR/PT keep INR between 2 and 3, Pharmacy ff- -Discharged from PT and OT as he has reached maximum benefit here. Out of bed with nursing as able Ischemic Cardiomyopathy/chronic systolic CHF LVEF 35% on echo 03/2015. Denies shortness of breath. Compensated. -Continue Coreg, Imdur, enalapril. -Could consider AICD if patient is able to consent, however patient is currently unable to consent -Fluid and sodium restrictions, follow volume status. 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 -Avoid nephrotoxins. -Monitor BMP intermittently - left tibial surface- with superficial wound - improving posterior aspect with erythema- avoid pressure Bacitracin bid discussed with him- avoid pressure- elevate leg consider starting an antibiotic if no improvement - Diabetic mellitus - Glucose was well controlled. All insulin discontinued. -accu-checks discontinued as patient's blood sugar well controlled and Hgb A1c 6.9. -continue diet control - PAD -stable. Continue above meds - Intermittent agitation- improved -Continue Seroquel Constipation-on cathartics and laxatives daily. Milk of magnesia as needed. Continue to monitor - DVT prophylaxis - patient on Coumadin Problem Qualifiers (1) Cellulitis: (2) S/P BKA (below knee amputation) unilateral: Qualified Code: Z89.511 - S/P BKA (below knee amputation) unilateral, right (3) CVA (cerebral vascular accident): Qualified Code: I63.9 - Cerebrovascular accident (CVA), unspecified mechanism Chinyere Soriano MD Feb 07, 2016 11:21
[2016-02-07] MEDS: WARFARIN SOD 5 MG TAB PO SCH (16:59)
[2016-02-07] MEDS: ISOSORBIDE MONONITRATE 60 MG TAB PO SCH (22:31)
[2016-02-08] VITALS (7 sets, daily range): BP systolic 106–140; BP diastolic 54–83; PULSE 63–78; RESP 16–20; TEMP 96.7–98.1; O2SAT 96–100
[2016-02-08] MEDS: BACITRACIN TOP OINT 15 GM TUBE TOP SCH ×3 (06:06→21:44)
[2016-02-08] MEDS: SODIUM CHLORIDE 0.9% FLUSH 5 ML FLUSH FLUSH SCH ×2 (09:00→21:00)
[2016-02-08] MEDS: LACTULOSE SYRUP 20 GM/30 ML CUP PO SCH ×2 (09:00→09:03)
[2016-02-08] MEDS: ENALAPRIL MALEATE 2.5 MG TAB PO SCH (09:03)
[2016-02-08] MEDS: POLYETHYLENE GLYCOL 17 GM PKG PO SCH (09:03)
[2016-02-08] MEDS: QUEtiapine FUMARATE 25 MG TAB PO SCH ×2 (09:03→21:43)
[2016-02-08] MEDS: DOCUSATE SODIUM 50 MG/SENNA 8.6 MG TAB PO SCH ×2 (09:03→21:43)
[2016-02-08] MEDS: CARVEDILOL 12.5 MG TAB PO SCH ×2 (09:03→21:43)
[2016-02-08] MEDS: ATORVASTATIN 80 MG TAB PO SCH (09:03)
[2016-02-08] MEDS: BETAMETHASONE DIPROPIONATE 0.05% OINT 15 GM TUBE TOP SCH ×2 (09:06→21:44)
[2016-02-08] MEDS: EUCERIN CREAM 120 GM JAR TOPICAL SCH ×2 (09:06→21:44)
[2016-02-08] MEDS: NYSTATIN 100,000 U/GM PWD 15 GM BTL TOPICAL SCH (09:06)
[2016-02-08 10:16] LABS: INTERNATIONAL NORMALIZED RATIO 2.4 RATIO; PROTHROMBIN TIME - PATIENT 25.8 SEC (9.8-11.4)
--- NOTE | 2016-02-08 16:19 | HHI.PR ---
Subjective Remarks no pain complains but states "I dont care, feel lousy" Objective Vitals Vital Signs Date Time Temp Pulse Resp B/P Pulse Ox O2 Delivery O2 Flow Rate FiO2 02/08/16 12:00 97.7 70 18 106/54 98 02/08/16 08:01 98.1 63 16 136/78 96 02/08/16 07:56 96 02/08/16 04:00 97.6 67 20 121/71 96 02/08/16 00:00 97.4 78 18 123/68 99 02/07/16 20:45 97.6 78 18 120/66 98 02/07/16 20:00 97.9 81 18 122/67 98 I/O 02/07/16 02/07/16 02/07/16 02/08/16 02/08/16 02/08/16 07:00 15:00 23:00 07:00 15:00 23:00 Intake Total 60 ml 60 ml 360 ml Output Total 800 ml Balance -800 ml 60 ml 60 ml 360 ml Intake Oral 60 ml 60 ml 360 ml IV Total 0 ml Output Urine Total 800 ml # Voids 3 2 Imaging Last Impressions Chest X-Ray 11/06/15 0000 Signed Impressions: Service Date/Time: Friday, November 06, 2015 11:35 - CONCLUSION: Compensated cardiomegaly, history of bypass otherwise negative. Superior most sternal wire is fractured. Didier Clay MD FACR Liver Ultrasound 10/30/15 0000 Signed Impressions: Service Date/Time: Friday, October 30, 2015 17:29 - CONCLUSION: 1. Cholelithiasis with probable gallbladder sludge and mild gallbladder distention. 2. Splenomegaly. Sameer Alexandra MD Modified Barium Swallow 10/27/15 0000 Signed Impressions: Service Date/Time: Tuesday, October 27, 2015 00:00 - CONCLUSION: Negative for penetration or aspiration. Please see speech pathology report. Tai Cohen MD Brain MRI 10/22/15 0000 Signed Impressions: Service Date/Time: September 14:38 - CONCLUSION: 1. No significant interval change is identified. There is stable restricted diffusion in the left basal ganglia representing an area of recent ischemia. There are no findings to indicate hemorrhagic transformation. The previously documented signal change within the right cerebral peduncle has nearly normalized. 2. Stable chronic white matter changes. Camacho Culp MD Neck Magnetic Resonance Angiography 10/21/15 0000 Signed Impressions: Service Date/Time: Wednesday, October 21, 2015 12:52 - CONCLUSION: . 1. Unremarkable MRA of the carotid arteries bilaterally. 2. Nonspecific possible collateral vessels in the soft tissues posterior to the right vertebral artery. The right verbal artery appears to be patent. If clinically indicated, a CTA could be performed for further evaluation. Abiodun Hall MD Head Magnetic Resonance Angiography 10/21/15 0000 Signed Impressions: Service Date/Time: Wednesday, October 21, 2015 12:52 - CONCLUSION: Unremarkable MRA of the brain. Abiodun Hall MD Head CT 10/15/152116 Signed Impressions: Service Date/Time: September 21:47 - CONCLUSION: 1. No evidence of hemorrhage or mass effect. 2. Lacunar infarct right thalamus, left basal ganglia and adjacent to the left lateral ventricular body. 3. No skull fracture seen. Daryl Varner MD Objective Remarks GENERAL: awake and alert, oriented x 3 SKIN: Warm and dry. HEAD: Normocephalic. EYES: No scleral icterus. No injection or drainage. NECK: Supple, trachea midline. No JVD or lymphadenopathy. CARDIOVASCULAR: Regular rate and rhythm without murmurs, gallops, or rubs. RESPIRATORY: Breath sounds equal bilaterally. No accessory muscle use. GASTROINTESTINAL: Abdomen soft, non-tender, nondistended. MUSCULOSKELETAL: right BKA stump well healed, left tibial surface with small erythematous area- improved - healed, good range of motions both knees posterior aspect of the left leg- mild erythema BACK: Nontender without obvious deformity. No CVA tenderness. Procedures None A/P Problem List: (1) Cellulitis ICD Code: L03.90 Status: Resolved (2) Ischemic cardiomyopathy ICD Code: I25.5 Status: Chronic (3) Diabetes mellitus type 2 in obese ICD Code: E11.9 Status: Chronic (4) S/P BKA (below knee amputation) unilateral ICD Code: Z89.519 Status: Chronic (5) Acute metabolic encephalopathy ICD Code: G93.41 Status: Resolved (6) Bacteremia ICD Code: R78.81 Status: Resolved (7) Chronic systolic (congestive) heart failure ICD Code: I50.22 Status: Chronic (8) Venous stasis ulcer of left lower extremity ICD Code: I83.029 Status: Chronic (9) CVA (cerebral vascular accident) ICD Code: I63.9 Status: Chronic (10) Seborrheic dermatitis ICD Code: L21.9 Status: Resolved Assessment and Plan 60-year-old male with Admitted 10/14 with acute cortical infarct - Bilateral CVA:MRI showed acute cortical infarct. MRA of head and neck unremarkable. Neurology following. S/p ASA and Plavix. -Continue with Statin. -Continue Coumadin 3 mg daily and monitor INR/PT keep INR between 2 and 3, Pharmacy ff- -Discharged from PT and OT as he has reached maximum benefit here. Out of bed with nursing as able Ischemic Cardiomyopathy/chronic systolic CHF LVEF 35% on echo 03/2015. Denies shortness of breath. Compensated. -Continue Coreg, Imdur, enalapril. -Could consider AICD if patient is able to consent, however patient is currently unable to consent -Fluid and sodium restrictions, follow volume status. 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 -Avoid nephrotoxins. -Monitor BMP intermittently - left tibial surface- with superficial wound - improving posterior aspect with erythema- avoid pressure Bacitracin bid discussed with him- avoid pressure- elevate leg - Diabetic mellitus - Glucose was well controlled. All insulin discontinued. -accu-checks discontinued as patient's blood sugar well controlled and Hgb A1c 6.9. -continue diet control - PAD -stable. Continue above meds - Intermittent agitation- improved -Continue Seroquel Constipation-on cathartics and laxatives daily. Milk of magnesia as needed. Continue to monitor - DVT prophylaxis - patient on Coumadin DC planning- [facility] Problem Qualifiers (1) Cellulitis: (2) S/P BKA (below knee amputation) unilateral: Qualified Code: Z89.511 - S/P BKA (below knee amputation) unilateral, right (3) CVA (cerebral vascular accident): Qualified Code: I63.9 - Cerebrovascular accident (CVA), unspecified mechanism Chinyere Soriano MD Feb 08, 2016 16:19
[2016-02-08] MEDS: WARFARIN SOD 5 MG TAB PO SCH (16:28)
[2016-02-08] MEDS: ISOSORBIDE MONONITRATE 60 MG TAB PO SCH (21:43)
[2016-02-09] VITALS: BP 90/52; PULSE 75; RESP 18; TEMP 96.6; O2SAT 96
[2016-02-09 04:00] VITALS: BP 105/66; PULSE 69; RESP 18; TEMP 96.4; O2SAT 99
[2016-02-09] MEDS: BACITRACIN TOP OINT 15 GM TUBE TOP SCH ×3 (05:38→21:10)
[2016-02-09 07:56] VITALS: BP 96/61; PULSE 73; RESP 16; TEMP 97; O2SAT 98
[2016-02-09] MEDS: CARVEDILOL 12.5 MG TAB PO SCH ×2 (08:43→21:07)
[2016-02-09] MEDS: QUEtiapine FUMARATE 25 MG TAB PO SCH ×2 (08:44→21:07)
[2016-02-09] MEDS: ENALAPRIL MALEATE 2.5 MG TAB PO SCH (08:44)
[2016-02-09] MEDS: DOCUSATE SODIUM 50 MG/SENNA 8.6 MG TAB PO SCH ×2 (08:44→21:07)
[2016-02-09] MEDS: LACTULOSE SYRUP 20 GM/30 ML CUP PO SCH (08:45)
[2016-02-09] MEDS: ATORVASTATIN 80 MG TAB PO SCH (08:45)
[2016-02-09] MEDS: POLYETHYLENE GLYCOL 17 GM PKG PO SCH (08:45)
[2016-02-09] MEDS: SODIUM CHLORIDE 0.9% FLUSH 5 ML FLUSH FLUSH SCH ×2 (08:46→21:00)
[2016-02-09] MEDS: EUCERIN CREAM 120 GM JAR TOPICAL SCH ×2 (08:50→21:10)
[2016-02-09] MEDS: BETAMETHASONE DIPROPIONATE 0.05% OINT 15 GM TUBE TOP SCH ×2 (08:50→21:11)
[2016-02-09] MEDS: NYSTATIN 100,000 U/GM PWD 15 GM BTL TOPICAL SCH (08:50)
[2016-02-09 11:34] VITALS: BP 124/75; PULSE 76; RESP 18; TEMP 98.1; O2SAT 99
--- NOTE | 2016-02-09 13:02 | HHI.PR ---
Subjective Remarks pleasant and cooperative today oriented x 3- states his anme, "[place]", "2016" ff commands Objective Vitals Vital Signs Date Time Temp Pulse Resp B/P Pulse Ox O2 Delivery O2 Flow Rate FiO2 02/09/16 11:34 98.1 76 18 124/75 99 02/09/16 07:56 97.0 73 16 96/61 98 02/09/16 04:00 96.4 69 18 105/66 99 02/09/16 00:00 96.6 75 18 90/52 96 02/08/16 20:00 97.6 72 18 140/83 100 02/08/16 16:00 96.7 76 18 123/76 96 I/O 02/08/16 02/08/16 02/08/16 02/09/16 02/09/16 02/09/16 07:00 15:00 23:00 07:00 15:00 23:00 Intake Total 360 ml 480 ml 120 ml Output Total 200 ml Balance 360 ml 280 ml 120 ml Intake Oral 360 ml 480 ml 120 ml Output Urine Total 200 ml # Voids 2 1 # Bowel Movements 0 0 Imaging Last Impressions Chest X-Ray 11/06/15 0000 Signed Impressions: Service Date/Time: Friday, November 06, 2015 11:35 - CONCLUSION: Compensated cardiomegaly, history of bypass otherwise negative. Superior most sternal wire is fractured. Didier Clay MD FACR Liver Ultrasound 10/30/15 0000 Signed Impressions: Service Date/Time: Friday, October 30, 2015 17:29 - CONCLUSION: 1. Cholelithiasis with probable gallbladder sludge and mild gallbladder distention. 2. Splenomegaly. Sameer Alexandra MD Modified Barium Swallow 10/27/15 0000 Signed Impressions: Service Date/Time: Tuesday, October 27, 2015 00:00 - CONCLUSION: Negative for penetration or aspiration. Please see speech pathology report. Tai Cohen MD Brain MRI 10/22/15 0000 Signed Impressions: Service Date/Time: September 14:38 - CONCLUSION: 1. No significant interval change is identified. There is stable restricted diffusion in the left basal ganglia representing an area of recent ischemia. There are no findings to indicate hemorrhagic transformation. The previously documented signal change within the right cerebral peduncle has nearly normalized. 2. Stable chronic white matter changes. Camacho Culp MD Neck Magnetic Resonance Angiography 10/21/15 0000 Signed Impressions: Service Date/Time: Wednesday, October 21, 2015 12:52 - CONCLUSION: . 1. Unremarkable MRA of the carotid arteries bilaterally. 2. Nonspecific possible collateral vessels in the soft tissues posterior to the right vertebral artery. The right verbal artery appears to be patent. If clinically indicated, a CTA could be performed for further evaluation. Abiodun Hall MD Head Magnetic Resonance Angiography 10/21/15 0000 Signed Impressions: Service Date/Time: Wednesday, October 21, 2015 12:52 - CONCLUSION: Unremarkable MRA of the brain. Abiodun Hall MD Head CT 10/15/152116 Signed Impressions: Service Date/Time: September 21:47 - CONCLUSION: 1. No evidence of hemorrhage or mass effect. 2. Lacunar infarct right thalamus, left basal ganglia and adjacent to the left lateral ventricular body. 3. No skull fracture seen. Daryl Varner MD Objective Remarks GENERAL: awake and alert, oriented x 3 SKIN: Warm and dry. HEAD: Normocephalic. EYES: No scleral icterus. No injection or drainage. NECK: Supple, trachea midline. No JVD or lymphadenopathy. CARDIOVASCULAR: Regular rate and rhythm without murmurs, gallops, or rubs. RESPIRATORY: Breath sounds equal bilaterally. No accessory muscle use. GASTROINTESTINAL: Abdomen soft, non-tender, nondistended. MUSCULOSKELETAL: right BKA stump well healed, left tibial surface with small erythematous area- improved - healed, good range of motions both knees posterior aspect of the left leg- mild erythema- improving BACK: Nontender without obvious deformity. No CVA tenderness. Procedures None A/P Problem List: (1) Cellulitis ICD Code: L03.90 Status: Resolved (2) Ischemic cardiomyopathy ICD Code: I25.5 Status: Chronic (3) Diabetes mellitus type 2 in obese ICD Code: E11.9 Status: Chronic (4) S/P BKA (below knee amputation) unilateral ICD Code: Z89.519 Status: Chronic (5) Acute metabolic encephalopathy ICD Code: G93.41 Status: Resolved (6) Bacteremia ICD Code: R78.81 Status: Resolved (7) Chronic systolic (congestive) heart failure ICD Code: I50.22 Status: Chronic (8) Venous stasis ulcer of left lower extremity ICD Code: I83.029 Status: Chronic (9) CVA (cerebral vascular accident) ICD Code: I63.9 Status: Chronic (10) Seborrheic dermatitis ICD Code: L21.9 Status: Resolved Assessment and Plan 60-year-old male with Admitted 10/14 with acute cortical infarct - Bilateral CVA:MRI showed acute cortical infarct. MRA of head and neck unremarkable. Neurology following. S/p ASA and Plavix. -Continue with Statin. -Continue Coumadin 3 mg daily and monitor INR/PT keep INR between 2 and 3, Pharmacy ff- -Discharged from PT and OT as he has reached maximum benefit here. Out of bed with nursing as able Ischemic Cardiomyopathy/chronic systolic CHF LVEF 35% on echo 03/2015. Denies shortness of breath. Compensated. -Continue Coreg, Imdur, enalapril. -Could consider AICD if patient is able to consent, however patient is currently unable to consent -Fluid and sodium restrictions, follow volume status. 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 -Avoid nephrotoxins. -Monitor BMP intermittently - left tibial surface- with superficial wound - improving posterior aspect with erythema- avoid pressure Bacitracin bid discussed with him- avoid pressure- elevate leg - Diabetic mellitus - Glucose was well controlled. All insulin discontinued. -accu-checks discontinued as patient's blood sugar well controlled and Hgb A1c 6.9. -continue diet control - PAD -stable. Continue above meds - Intermittent agitation- improved -Continue Seroquel- adjust Constipation-on cathartics and laxatives daily. Milk of magnesia as needed. Continue to monitor - DVT prophylaxis - patient on Coumadin DC planning- [facility] Problem Qualifiers (1) Cellulitis: (2) S/P BKA (below knee amputation) unilateral: Qualified Code: Z89.511 - S/P BKA (below knee amputation) unilateral, right (3) CVA (cerebral vascular accident): Qualified Code: I63.9 - Cerebrovascular accident (CVA), unspecified mechanism Chinyere Sroiano MD Feb 09, 2016 13:02
[2016-02-09] MEDS: WARFARIN SOD 5 MG TAB PO SCH ×2 (16:00→21:07)
[2016-02-09 16:25] VITALS: BP 125/81; PULSE 74; RESP 18; TEMP 96.9; O2SAT 96
[2016-02-09 20:48] VITALS: BP 133/85; PULSE 73; RESP 18; TEMP 97.8; O2SAT 98
[2016-02-09] MEDS: ISOSORBIDE MONONITRATE 60 MG TAB PO SCH (21:07)
[2016-02-10] VITALS (7 sets, daily range): BP systolic 104–166; BP diastolic 59–88; PULSE 66–96; RESP 15–20; TEMP 96.4–98.2; O2SAT 96–99
[2016-02-10] MEDS: BACITRACIN TOP OINT 15 GM TUBE TOP SCH ×3 (06:43→22:00)
[2016-02-10 07:42] LABS: INTERNATIONAL NORMALIZED RATIO 2.5 RATIO; PROTHROMBIN TIME - PATIENT 27.2 SEC (9.8-11.4)
[2016-02-10] MEDS: CARVEDILOL 12.5 MG TAB PO SCH ×2 (09:00→21:00)
[2016-02-10] MEDS: POLYETHYLENE GLYCOL 17 GM PKG PO SCH (09:00)
[2016-02-10] MEDS: ENALAPRIL MALEATE 2.5 MG TAB PO SCH (09:00)
[2016-02-10] MEDS: NYSTATIN 100,000 U/GM PWD 15 GM BTL TOPICAL SCH (09:00)
[2016-02-10] MEDS: ATORVASTATIN 80 MG TAB PO SCH (09:00)
[2016-02-10] MEDS: DOCUSATE SODIUM 50 MG/SENNA 8.6 MG TAB PO SCH ×2 (09:00→21:00)
[2016-02-10] MEDS: LACTULOSE SYRUP 20 GM/30 ML CUP PO SCH (09:00)
[2016-02-10] MEDS: EUCERIN CREAM 120 GM JAR TOPICAL SCH ×2 (09:00→21:00)
[2016-02-10] MEDS: SODIUM CHLORIDE 0.9% FLUSH 5 ML FLUSH FLUSH SCH ×2 (09:00→21:00)
[2016-02-10] MEDS: QUEtiapine FUMARATE 25 MG TAB PO SCH ×2 (09:00→21:00)
[2016-02-10] MEDS: BETAMETHASONE DIPROPIONATE 0.05% OINT 15 GM TUBE TOP SCH ×2 (09:00→21:00)
--- NOTE | 2016-02-10 11:08 | HHI.PR ---
Subjective Remarks Patient has no new complaints. He knows he is in a hospital but could not tell me which hospital. He believes it's 1916 and the month is "20". No other issues overnight. Objective Vitals Vital Signs Date Time Temp Pulse Resp B/P Pulse Ox O2 Delivery O2 Flow Rate FiO2 02/10/16 09:07 96.6 72 18 116/65 98 02/10/16 04:03 96.6 70 18 109/64 96 02/10/16 01:14 97.8 71 18 109/59 96 02/09/16 20:48 97.8 73 18 133/85 98 02/09/16 16:25 96.9 74 18 125/81 96 02/09/16 11:34 98.1 76 18 124/75 99 I/O 02/09/16 02/09/16 02/09/16 02/10/16 02/10/16 02/10/16 07:00 15:00 23:00 07:00 15:00 23:00 Intake Total 120 ml 720 ml Output Total 650 ml 400 ml Balance 120 ml 70 ml -400 ml Intake Oral 120 ml 720 ml Output Urine Total 650 ml 400 ml # Voids 1 1 # Bowel Movements 0 1 1 Imaging Last Impressions Chest X-Ray 11/06/15 0000 Signed Impressions: Service Date/Time: Friday, November 06, 2015 11:35 - CONCLUSION: Compensated cardiomegaly, history of bypass otherwise negative. Superior most sternal wire is fractured. Didier Clay MD FACR Liver Ultrasound 10/30/15 0000 Signed Impressions: Service Date/Time: Friday, October 30, 2015 17:29 - CONCLUSION: 1. Cholelithiasis with probable gallbladder sludge and mild gallbladder distention. 2. Splenomegaly. Sameer Alexandra MD Modified Barium Swallow 10/27/15 0000 Signed Impressions: Service Date/Time: Tuesday, October 27, 2015 00:00 - CONCLUSION: Negative for penetration or aspiration. Please see speech pathology report. Tai Cohen MD Brain MRI 10/22/15 0000 Signed Impressions: Service Date/Time: September 14:38 - CONCLUSION: 1. No significant interval change is identified. There is stable restricted diffusion in the left basal ganglia representing an area of recent ischemia. There are no findings to indicate hemorrhagic transformation. The previously documented signal change within the right cerebral peduncle has nearly normalized. 2. Stable chronic white matter changes. Camacho Culp MD Neck Magnetic Resonance Angiography 10/21/15 0000 Signed Impressions: Service Date/Time: Wednesday, October 21, 2015 12:52 - CONCLUSION: . 1. Unremarkable MRA of the carotid arteries bilaterally. 2. Nonspecific possible collateral vessels in the soft tissues posterior to the right vertebral artery. The right verbal artery appears to be patent. If clinically indicated, a CTA could be performed for further evaluation. Abiodun Hall MD Head Magnetic Resonance Angiography 10/21/15 Signed Impressions: Service Date/Time: Wednesday, October 21, 2015 12:52 - CONCLUSION: Unremarkable MRA of the brain. Abiodun Hall MD Head CT 10/15/152116 Signed Impressions: Service Date/Time: September 21:47 - CONCLUSION: 1. No evidence of hemorrhage or mass effect. 2. Lacunar infarct right thalamus, left basal ganglia and adjacent to the left lateral ventricular body. 3. No skull fracture seen. Daryl Varner MD Objective Remarks GENERAL: Well-nourished male in no acute distress. CARDIOVASCULAR: Regular rate and rhythm without murmurs, gallops, or rubs. RESPIRATORY: Breath sounds equal bilaterally. No accessory muscle use. GASTROINTESTINAL: Abdomen soft, non-tender, nondistended. MUSCULOSKELETAL: right BKA stump well healed. Neuro/Psych: Alert of self and location but confused about dates and situation. Procedures None A/P Problem List: (1) Cellulitis ICD Code: L03.90 Status: Resolved (2) Ischemic cardiomyopathy ICD Code: I25.5 Status: Chronic (3) Diabetes mellitus type 2 in obese ICD Code: E11.9 Status: Chronic (4) S/P BKA (below knee amputation) unilateral ICD Code: Z89.519 Status: Chronic (5) Acute metabolic encephalopathy ICD Code: G93.41 Status: Resolved (6) Bacteremia ICD Code: R78.81 Status: Resolved (7) Chronic systolic (congestive) heart failure ICD Code: I50.22 Status: Chronic (8) Venous stasis ulcer of left lower extremity ICD Code: I83.029 Status: Chronic (9) CVA (cerebral vascular accident) ICD Code: I63.9 Status: Chronic (10) Seborrheic dermatitis ICD Code: L21.9 Status: Resolved Assessment and Plan 60-year-old male with admitted 10/14 with acute cortical infarct. Patient remains with significant cognitive deficit. - Bilateral CVA:MRI showed acute cortical infarct. MRA of head and neck unremarkable. Neurology following. S/p ASA and Plavix. -Continue with Statin. -Continue Coumadin 3 mg daily and monitor INR/PT keep INR between 2 and 3, Pharmacy ff- -Discharged from PT and OT as he has reached maximum benefit here. Out of bed with nursing as able Ischemic Cardiomyopathy/chronic systolic CHF LVEF 35% on echo 03/2015. Denies shortness of breath. Compensated. -Continue Coreg, Imdur, enalapril. -Could consider AICD if patient is able to consent, however patient is currently unable to consent -Fluid and sodium restrictions, follow volume status. 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 -Avoid nephrotoxins. -Monitor BMP intermittently - left tibial surface- with superficial wound - improving posterior aspect with erythema- avoid pressure Bacitracin bid discussed with him- avoid pressure- elevate leg - Diabetic mellitus - Glucose was well controlled. All insulin discontinued. -accu-checks discontinued as patient's blood sugar well controlled and Hgb A1c 6.9. -continue diet control - PAD -stable. Continue above meds - Intermittent agitation- improved -Continue Seroquel- adjust Constipation-on cathartics and laxatives daily. Milk of magnesia as needed. Continue to monitor - DVT prophylaxis - patient on Coumadin Problem Qualifiers (1) Cellulitis: (2) S/P BKA (below knee amputation) unilateral: Qualified Code: Z89.511 - S/P BKA (below knee amputation) unilateral, right (3) CVA (cerebral vascular accident): Qualified Code: I63.9 - Cerebrovascular accident (CVA), unspecified mechanism Tika Robles MD Feb 10, 2016 11:08
[2016-02-10] MEDS: WARFARIN SOD 5 MG TAB PO SCH (16:00)
[2016-02-10] MEDS: ISOSORBIDE MONONITRATE 60 MG TAB PO SCH (21:00)
[2016-02-11 01:18] VITALS: BP 148/91; PULSE 73; RESP 18; TEMP 98.8; O2SAT 98
[2016-02-11 04:06] VITALS: BP 142/80; PULSE 76; RESP 18; TEMP 98.3; O2SAT 100
[2016-02-11] MEDS: BACITRACIN TOP OINT 15 GM TUBE TOP SCH ×3 (06:00→22:00)
[2016-02-11 08:24] VITALS: BP 129/84; PULSE 76; RESP 17; TEMP 97.6; O2SAT 97
[2016-02-11] MEDS: NYSTATIN 100,000 U/GM PWD 15 GM BTL TOPICAL SCH (09:00)
[2016-02-11] MEDS: SODIUM CHLORIDE 0.9% FLUSH 5 ML FLUSH FLUSH SCH ×2 (09:00→21:00)
[2016-02-11] MEDS: BETAMETHASONE DIPROPIONATE 0.05% OINT 15 GM TUBE TOP SCH ×2 (09:00→21:00)
[2016-02-11] MEDS: EUCERIN CREAM 120 GM JAR TOPICAL SCH ×2 (09:00→21:00)
[2016-02-11] MEDS: QUEtiapine FUMARATE 25 MG TAB PO SCH ×2 (09:20→18:00)
[2016-02-11] MEDS: CARVEDILOL 12.5 MG TAB PO SCH ×2 (09:20→21:00)
[2016-02-11] MEDS: ENALAPRIL MALEATE 2.5 MG TAB PO SCH (09:20)
[2016-02-11] MEDS: LACTULOSE SYRUP 20 GM/30 ML CUP PO SCH (09:20)
[2016-02-11] MEDS: POLYETHYLENE GLYCOL 17 GM PKG PO SCH (09:20)
[2016-02-11] MEDS: DOCUSATE SODIUM 50 MG/SENNA 8.6 MG TAB PO SCH ×2 (09:20→21:00)
[2016-02-11] MEDS: ATORVASTATIN 80 MG TAB PO SCH (09:21)
--- NOTE | 2016-02-11 11:56 | HHI.PR ---
Subjective Remarks Patient more agitated today per RN. He is seen laying in bed. Still confused. Objective Vitals Vital Signs Date Time Temp Pulse Resp B/P Pulse Ox O2 Delivery O2 Flow Rate FiO2 02/11/16 08:24 97.6 76 17 129/84 97 02/11/16 04:06 98.3 76 18 142/80 100 02/11/16 01:18 98.8 73 18 148/91 98 02/10/16 21:51 97.8 75 20 147/88 98 02/10/16 18:33 96.5 76 18 166/69 99 02/10/16 13:30 96.4 66 18 144/88 97 I/O 02/10/16 02/10/16 02/10/16 02/11/16 02/11/16 02/11/16 06:59 14:59 22:59 06:59 14:59 22:59 Intake Total 120 ml 220 ml 0 ml Output Total 300 ml 250 ml Balance -180 ml -30 ml 0 ml Intake Oral 120 ml 220 ml 0 ml Output Urine Total 300 ml 250 ml # Voids 1 0 # Bowel Movements 1 0 0 Objective Remarks GENERAL: Well-nourished male in no acute distress. CARDIOVASCULAR: Regular rate and rhythm without murmurs, gallops, or rubs. RESPIRATORY: Breath sounds equal bilaterally. No accessory muscle use. GASTROINTESTINAL: Abdomen soft, non-tender, nondistended. MUSCULOSKELETAL: right BKA stump well healed. Neuro/Psych: Alert of self and location but confused about dates and situation. Procedures None A/P Problem List: (1) Cellulitis ICD Code: L03.90 Status: Resolved (2) Ischemic cardiomyopathy ICD Code: I25.5 Status: Chronic (3) Diabetes mellitus type 2 in obese ICD Code: E11.9 Status: Chronic (4) S/P BKA (below knee amputation) unilateral ICD Code: Z89.519 Status: Chronic (5) Acute metabolic encephalopathy ICD Code: G93.41 Status: Resolved (6) Bacteremia ICD Code: R78.81 Status: Resolved (7) Chronic systolic (congestive) heart failure ICD Code: I50.22 Status: Chronic (8) Venous stasis ulcer of left lower extremity ICD Code: I83.029 Status: Chronic (9) CVA (cerebral vascular accident) ICD Code: I63.9 Status: Chronic (10) Seborrheic dermatitis ICD Code: L21.9 Status: Resolved Assessment and Plan 60-year-old male with admitted 10/14 with acute cortical infarct. Patient remains with significant cognitive deficit. - Bilateral CVA:MRI showed acute cortical infarct. MRA of head and neck unremarkable. Neurology following. S/p ASA and Plavix. -Continue with Statin. -Continue Coumadin 3 mg daily and monitor INR/PT keep INR between 2 and 3, Pharmacy ff- -Discharged from PT and OT as he has reached maximum benefit here. Out of bed with nursing as able Ischemic Cardiomyopathy/chronic systolic CHF LVEF 35% on echo 03/2015. Denies shortness of breath. Compensated. -Continue Coreg, Imdur, enalapril. -Could consider AICD if patient is able to consent, however patient is currently unable to consent -Fluid and sodium restrictions, follow volume status. 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 -Avoid nephrotoxins. -Monitor BMP intermittently - left tibial surface- with superficial wound - improving posterior aspect with erythema- avoid pressure Bacitracin bid discussed with him- avoid pressure- elevate leg - Diabetic mellitus - Glucose was well controlled. All insulin discontinued. -accu-checks discontinued as patient's blood sugar well controlled and Hgb A1c 6.9. -continue diet control - PAD -stable. Continue above meds - Intermittent agitation- -Continue Seroquel- Increase to 25 mg TID. Constipation-on cathartics and laxatives daily. Milk of magnesia as needed. Continue to monitor - DVT prophylaxis - patient on Coumadin Problem Qualifiers (1) Cellulitis: (2) S/P BKA (below knee amputation) unilateral: Qualified Code: Z89.511 - S/P BKA (below knee amputation) unilateral, right (3) CVA (cerebral vascular accident): Qualified Code: I63.9 - Cerebrovascular accident (CVA), unspecified mechanism Tika Robles MD Feb 11, 2016 11:56
[2016-02-11 12:07] VITALS: BP 128/80; PULSE 80; RESP 16; TEMP 96.4; O2SAT 96
[2016-02-11] MEDS: WARFARIN SOD 5 MG TAB PO SCH (16:00)
[2016-02-11 16:11] VITALS: BP 144/84; PULSE 85; RESP 17; TEMP 97.8; O2SAT 97
[2016-02-11] MEDS: ISOSORBIDE MONONITRATE 60 MG TAB PO SCH (21:00)
[2016-02-12] VITALS: BP 129/79; PULSE 74; RESP 16; TEMP 97; O2SAT 97
[2016-02-12 04:00] VITALS: BP 138/91; PULSE 72; RESP 18; TEMP 97; O2SAT 98
[2016-02-12] MEDS: BACITRACIN TOP OINT 15 GM TUBE TOP SCH ×3 (06:00→21:49)
[2016-02-12 07:29] LABS: INTERNATIONAL NORMALIZED RATIO 2.1 RATIO; PROTHROMBIN TIME - PATIENT 22.2 SEC (9.8-11.4)
[2016-02-12 08:02] VITALS: BP 126/77; PULSE 72; RESP 18; TEMP 96.8; O2SAT 98
[2016-02-12] MEDS: ENALAPRIL MALEATE 2.5 MG TAB PO SCH (09:00)
[2016-02-12] MEDS: DOCUSATE SODIUM 50 MG/SENNA 8.6 MG TAB PO SCH ×2 (09:00→21:00)
[2016-02-12] MEDS: POLYETHYLENE GLYCOL 17 GM PKG PO SCH (09:00)
[2016-02-12] MEDS: QUEtiapine FUMARATE 25 MG TAB PO SCH ×3 (09:00→18:00)
[2016-02-12] MEDS: SODIUM CHLORIDE 0.9% FLUSH 5 ML FLUSH FLUSH SCH ×2 (09:00→21:00)
[2016-02-12] MEDS: LACTULOSE SYRUP 20 GM/30 ML CUP PO SCH (09:00)
--- NOTE | 2016-02-12 09:32 | HHI.PR ---
Subjective Remarks Patient states GI of an upset stomach yesterday after eating eggs. He is feeling much better now. No other complaints. Objective Vitals Vital Signs Date Time Temp Pulse Resp B/P Pulse Ox O2 Delivery O2 Flow Rate FiO2 02/12/16 08:02 96.8 72 18 126/77 98 02/12/16 04:00 97.0 72 18 138/91 98 02/12/16 00:00 97.0 74 16 129/79 97 02/11/16 16:11 97.8 85 17 144/84 97 02/11/16 12:07 96.4 80 16 128/80 96 I/O 02/11/16 02/11/16 02/11/16 02/12/16 02/12/16 02/12/16 07:00 15:00 23:00 07:00 15:00 23:00 Intake Total 0 ml 360 ml 450 ml 240 ml Output Total 300 ml 400 ml Balance 0 ml 60 ml 50 ml 240 ml Intake Oral 0 ml 360 ml 450 ml 240 ml Output Urine Total 300 ml 400 ml # Voids 0 2 # Bowel Movements 0 0 0 Imaging Last Impressions Chest X-Ray 11/06/15 0000 Signed Impressions: Service Date/Time: Friday, November 06, 2015 11:35 - CONCLUSION: Compensated cardiomegaly, history of bypass otherwise negative. Superior most sternal wire is fractured. Didier Clay MD FACR Liver Ultrasound 10/30/15 0000 Signed Impressions: Service Date/Time: Friday, October 30, 2015 17:29 - CONCLUSION: 1. Cholelithiasis with probable gallbladder sludge and mild gallbladder distention. 2. Splenomegaly. Sameer Alexandra MD Modified Barium Swallow 10/27/15 0000 Signed Impressions: Service Date/Time: Tuesday, October 27, 2015 00:00 - CONCLUSION: Negative for penetration or aspiration. Please see speech pathology report. Tai Cohen MD Brain MRI 10/22/15 0000 Signed Impressions: Service Date/Time: September 14:38 - CONCLUSION: 1. No significant interval change is identified. There is stable restricted diffusion in the left basal ganglia representing an area of recent ischemia. There are no findings to indicate hemorrhagic transformation. The previously documented signal change within the right cerebral peduncle has nearly normalized. 2. Stable chronic white matter changes. Camacho Culp MD Neck Magnetic Resonance Angiography 10/21/15 0000 Signed Impressions: Service Date/Time: Wednesday, October 21, 2015 12:52 - CONCLUSION: . 1. Unremarkable MRA of the carotid arteries bilaterally. 2. Nonspecific possible collateral vessels in the soft tissues posterior to the right vertebral artery. The right verbal artery appears to be patent. If clinically indicated, a CTA could be performed for further evaluation. Abiodun Hall MD Head Magnetic Resonance Angiography 10/21/15 Signed Impressions: Service Date/Time: Wednesday, October 21, 2015 12:52 - CONCLUSION: Unremarkable MRA of the brain. Abiodun Hall MD Head CT 10/15/152116 Signed Impressions: Service Date/Time: September 21:47 - CONCLUSION: 1. No evidence of hemorrhage or mass effect. 2. Lacunar infarct right thalamus, left basal ganglia and adjacent to the left lateral ventricular body. 3. No skull fracture seen. Daryl Varner MD Objective Remarks GENERAL: Well-nourished male in no acute distress. CARDIOVASCULAR: Regular rate and rhythm without murmurs, gallops, or rubs. RESPIRATORY: Breath sounds equal bilaterally. No accessory muscle use. GASTROINTESTINAL: Abdomen soft, non-tender, nondistended. MUSCULOSKELETAL: right BKA stump well healed. Neuro/Psych: Alert of self and location but confused about dates and situation. Procedures None A/P Problem List: (1) Cellulitis ICD Code: L03.90 Status: Resolved (2) Ischemic cardiomyopathy ICD Code: I25.5 Status: Chronic (3) Diabetes mellitus type 2 in obese ICD Code: E11.9 Status: Chronic (4) S/P BKA (below knee amputation) unilateral ICD Code: Z89.519 Status: Chronic (5) Acute metabolic encephalopathy ICD Code: G93.41 Status: Resolved (6) Bacteremia ICD Code: R78.81 Status: Resolved (7) Chronic systolic (congestive) heart failure ICD Code: I50.22 Status: Chronic (8) Venous stasis ulcer of left lower extremity ICD Code: I83.029 Status: Chronic (9) CVA (cerebral vascular accident) ICD Code: I63.9 Status: Chronic (10) Seborrheic dermatitis ICD Code: L21.9 Status: Resolved Assessment and Plan 60-year-old male with admitted 10/14 with acute cortical infarct. Patient remains with significant cognitive deficit. - Bilateral CVA:MRI showed acute cortical infarct. MRA of head and neck unremarkable. Neurology following. S/p ASA and Plavix. -Continue with Statin. -Continue Coumadin 3 mg daily and monitor INR/PT keep INR between 2 and 3, Pharmacy ff- -Discharged from PT and OT as he has reached maximum benefit here. Out of bed with nursing as able Ischemic Cardiomyopathy/chronic systolic CHF LVEF 35% on echo 03/2015. Denies shortness of breath. Compensated. -Continue Coreg, Imdur, enalapril. -Could consider AICD if patient is able to consent, however patient is currently unable to consent -Fluid and sodium restrictions, follow volume status. 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 -Avoid nephrotoxins. -Monitor BMP intermittently - left tibial surface- with superficial wound - improving posterior aspect with erythema- avoid pressure Bacitracin bid discussed with him- avoid pressure- elevate leg - Diabetic mellitus - Glucose was well controlled. All insulin discontinued. -accu-checks discontinued as patient's blood sugar well controlled and Hgb A1c 6.9. -continue diet control - PAD -stable. Continue above meds - Intermittent agitation- -Continue Seroquel- Increase to 25 mg TID. Constipation-on cathartics and laxatives daily. Milk of magnesia as needed. Continue to monitor - DVT prophylaxis - patient on Coumadin Discharge Planning Needs placement. Case management following. Problem Qualifiers (1) Cellulitis: (2) S/P BKA (below knee amputation) unilateral: Qualified Code: Z89.511 - S/P BKA (below knee amputation) unilateral, right (3) CVA (cerebral vascular accident): Qualified Code: I63.9 - Cerebrovascular accident (CVA), unspecified mechanism Tika Robles MD Feb 12, 2016 09:32
[2016-02-12] MEDS: CARVEDILOL 12.5 MG TAB PO SCH ×2 (10:29→21:49)
[2016-02-12] MEDS: ATORVASTATIN 80 MG TAB PO SCH (10:29)
[2016-02-12] MEDS: EUCERIN CREAM 120 GM JAR TOPICAL SCH ×2 (10:30→21:49)
[2016-02-12] MEDS: BETAMETHASONE DIPROPIONATE 0.05% OINT 15 GM TUBE TOP SCH ×2 (10:30→21:49)
[2016-02-12] MEDS: NYSTATIN 100,000 U/GM PWD 15 GM BTL TOPICAL SCH (10:30)
[2016-02-12 11:55] VITALS: BP 134/81; PULSE 76; RESP 18; TEMP 95.9; O2SAT 99
[2016-02-12 15:53] VITALS: BP 135/84; PULSE 76; RESP 18; TEMP 98; O2SAT 98
[2016-02-12] MEDS: WARFARIN SOD 5 MG TAB PO SCH (16:00)
[2016-02-12 20:00] VITALS: BP 146/88; PULSE 89; RESP 18; TEMP 97.6; O2SAT 95
[2016-02-12] MEDS: ISOSORBIDE MONONITRATE 60 MG TAB PO SCH (21:49)
[2016-02-13 00:16] VITALS: BP 102/60; PULSE 85; RESP 18; TEMP 97.5; O2SAT 93
[2016-02-13 04:00] VITALS: BP 137/84; PULSE 81; RESP 18; TEMP 97.4; O2SAT 97
[2016-02-13] MEDS: BACITRACIN TOP OINT 15 GM TUBE TOP SCH ×3 (05:39→22:05)
[2016-02-13 08:16] VITALS: BP 106/70; PULSE 70; RESP 20; TEMP 96; O2SAT 100
[2016-02-13] MEDS: LACTULOSE SYRUP 20 GM/30 ML CUP PO SCH (09:00)
[2016-02-13] MEDS: POLYETHYLENE GLYCOL 17 GM PKG PO SCH ×2 (09:00→09:18)
[2016-02-13] MEDS: ATORVASTATIN 80 MG TAB PO SCH (09:17)
[2016-02-13] MEDS: ENALAPRIL MALEATE 2.5 MG TAB PO SCH (09:17)
[2016-02-13] MEDS: DOCUSATE SODIUM 50 MG/SENNA 8.6 MG TAB PO SCH ×2 (09:17→22:10)
[2016-02-13] MEDS: QUEtiapine FUMARATE 25 MG TAB PO SCH ×3 (09:17→17:40)
[2016-02-13] MEDS: CARVEDILOL 12.5 MG TAB PO SCH ×2 (09:18→21:00)
[2016-02-13] MEDS: NYSTATIN 100,000 U/GM PWD 15 GM BTL TOPICAL SCH (09:18)
[2016-02-13] MEDS: EUCERIN CREAM 120 GM JAR TOPICAL SCH ×2 (09:18→22:06)
[2016-02-13] MEDS: SODIUM CHLORIDE 0.9% FLUSH 5 ML FLUSH FLUSH SCH ×2 (09:20→21:00)
[2016-02-13] MEDS: BETAMETHASONE DIPROPIONATE 0.05% OINT 15 GM TUBE TOP SCH ×2 (09:22→22:06)
[2016-02-13 12:30] VITALS: BP 111/74; PULSE 73; RESP 20; TEMP 96.1; O2SAT 98
--- NOTE | 2016-02-13 13:06 | HHI.PR ---
Subjective Remarks Patient fell out of bed last night. No injuries reported. He is sleeping today and not want to be bothered. Objective Vitals Vital Signs Date Time Temp Pulse Resp B/P Pulse Ox O2 Delivery O2 Flow Rate FiO2 02/13/16 12:30 96.1 73 20 111/74 98 02/13/16 08:16 96.0 70 20 106/70 100 02/13/16 04:00 97.4 81 18 137/84 97 02/13/16 00:16 97.5 85 18 102/60 93 02/12/16 20:00 97.6 89 18 146/88 95 02/12/16 15:53 98.0 76 18 135/84 98 I/O 02/12/16 02/12/16 02/12/16 02/13/16 02/13/16 02/13/16 07:00 15:00 23:00 07:00 15:00 23:00 Intake Total 720 ml 360 ml 1230 ml Output Total 550 ml 300 ml 200 ml Balance 170 ml 60 ml 1030 ml Intake Oral 720 ml 360 ml 1230 ml Output Urine Total 550 ml 300 ml 200 ml # Voids 2 3 # Bowel Movements 0 Objective Remarks GENERAL: Well-nourished male in no acute distress. CARDIOVASCULAR: Regular rate and rhythm without murmurs, gallops, or rubs. RESPIRATORY: Breath sounds equal bilaterally. No accessory muscle use. GASTROINTESTINAL: Abdomen soft, non-tender, nondistended. MUSCULOSKELETAL: right BKA stump well healed. Neuro/Psych: Alert of self and location but confused about dates and situation. Procedures None A/P Problem List: (1) Cellulitis ICD Code: L03.90 Status: Resolved (2) Ischemic cardiomyopathy ICD Code: I25.5 Status: Chronic (3) Diabetes mellitus type 2 in obese ICD Code: E11.9 Status: Chronic (4) S/P BKA (below knee amputation) unilateral ICD Code: Z89.519 Status: Chronic (5) Acute metabolic encephalopathy ICD Code: G93.41 Status: Resolved (6) Bacteremia ICD Code: R78.81 Status: Resolved (7) Chronic systolic (congestive) heart failure ICD Code: I50.22 Status: Chronic (8) Venous stasis ulcer of left lower extremity ICD Code: I83.029 Status: Chronic (9) CVA (cerebral vascular accident) ICD Code: I63.9 Status: Chronic (10) Seborrheic dermatitis ICD Code: L21.9 Status: Resolved Assessment and Plan 60-year-old male with admitted 10/14 with acute cortical infarct. Patient remains with significant cognitive deficit. - Bilateral CVA:MRI showed acute cortical infarct. MRA of head and neck unremarkable. Neurology following. S/p ASA and Plavix. -Continue with Statin. -Continue Coumadin 3 mg daily and monitor INR/PT keep INR between 2 and 3, Pharmacy ff- -Discharged from PT and OT as he has reached maximum benefit here. Out of bed with nursing only. Patient was counseled to not get out of bed on his own. Ischemic Cardiomyopathy/chronic systolic CHF LVEF 35% on echo 03/2015. Denies shortness of breath. Compensated. -Continue Coreg, Imdur, enalapril. -Could consider AICD if patient is able to consent, however patient is currently unable to consent -Fluid and sodium restrictions, follow volume status. 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 -Avoid nephrotoxins. -Monitor BMP intermittently - left tibial surface- with superficial wound - improving posterior aspect with erythema- avoid pressure Bacitracin bid discussed with him- avoid pressure- elevate leg - Diabetic mellitus - Glucose was well controlled. All insulin discontinued. -accu-checks discontinued as patient's blood sugar well controlled and Hgb A1c 6.9. -continue diet control - PAD -stable. Continue above meds - Intermittent agitation- -Continue Seroquel- Increase to 25 mg TID. Constipation-on cathartics and laxatives daily. Milk of magnesia as needed. Continue to monitor - DVT prophylaxis - patient on Coumadin Discharge Planning Needs placement. Case management following. Problem Qualifiers (1) Cellulitis: (2) S/P BKA (below knee amputation) unilateral: Qualified Code: Z89.511 - S/P BKA (below knee amputation) unilateral, right (3) CVA (cerebral vascular accident): Qualified Code: I63.9 - Cerebrovascular accident (CVA), unspecified mechanism Tika Robles MD Feb 13, 2016 13:06
[2016-02-13] MEDS: WARFARIN SOD 5 MG TAB PO SCH (15:45)
[2016-02-13 16:00] VITALS: BP 106/67; PULSE 66; RESP 17; TEMP 97.1; O2SAT 97
[2016-02-13 20:46] VITALS: BP 99/61; PULSE 66; RESP 18; TEMP 98.8; O2SAT 99
[2016-02-13] MEDS: ISOSORBIDE MONONITRATE 60 MG TAB PO SCH (21:00)
[2016-02-14 00:09] VITALS: BP 113/74; PULSE 67; RESP 18; TEMP 96.5; O2SAT 99
[2016-02-14 04:32] VITALS: BP 104/62; PULSE 66; RESP 20; TEMP 96.7; O2SAT 97
[2016-02-14] MEDS: BACITRACIN TOP OINT 15 GM TUBE TOP SCH ×3 (06:03→22:16)
[2016-02-14 08:43] LABS: INTERNATIONAL NORMALIZED RATIO 1.7 RATIO; PROTHROMBIN TIME - PATIENT 17.8 SEC (9.8-11.4)
[2016-02-14] MEDS: POLYETHYLENE GLYCOL 17 GM PKG PO SCH (09:00)
[2016-02-14] MEDS: LACTULOSE SYRUP 20 GM/30 ML CUP PO SCH (09:00)
[2016-02-14] MEDS: QUEtiapine FUMARATE 25 MG TAB PO SCH ×5 (09:00→18:00)
[2016-02-14] MEDS: DOCUSATE SODIUM 50 MG/SENNA 8.6 MG TAB PO SCH ×3 (09:00→22:14)
[2016-02-14] MEDS: SODIUM CHLORIDE 0.9% FLUSH 5 ML FLUSH FLUSH SCH ×2 (09:08→21:00)
[2016-02-14] MEDS: ENALAPRIL MALEATE 2.5 MG TAB PO SCH (09:09)
[2016-02-14] MEDS: ATORVASTATIN 80 MG TAB PO SCH (09:10)
[2016-02-14] MEDS: CARVEDILOL 12.5 MG TAB PO SCH ×2 (09:10→22:13)
[2016-02-14] MEDS: NYSTATIN 100,000 U/GM PWD 15 GM BTL TOPICAL SCH (09:11)
[2016-02-14] MEDS: EUCERIN CREAM 120 GM JAR TOPICAL SCH ×2 (09:11→22:16)
[2016-02-14] MEDS: BETAMETHASONE DIPROPIONATE 0.05% OINT 15 GM TUBE TOP SCH ×2 (09:11→22:16)
[2016-02-14 09:24] VITALS: BP 128/72; PULSE 98; RESP 16; TEMP 97.2; O2SAT 98
[2016-02-14 13:07] VITALS: BP 120/71; PULSE 90; RESP 16; TEMP 97.9; O2SAT 98
[2016-02-14 16:33] VITALS: BP 120/75; PULSE 91; RESP 16; TEMP 97.2
[2016-02-14] MEDS: WARFARIN SOD 5 MG TAB PO SCH (16:51)
--- NOTE | 2016-02-14 16:51 | HHI.PR ---
Subjective Remarks No significant change in clinical status. He reports that he is feeling okay. Objective Vitals Vital Signs Date Time Temp Pulse Resp B/P Pulse Ox O2 Delivery O2 Flow Rate FiO2 02/14/16 16:33 97.2 91 16 120/75 02/14/16 13:07 97.9 90 16 120/71 98 02/14/16 09:24 97.2 98 16 128/72 98 02/14/16 04:32 96.7 66 20 104/62 97 02/14/16 00:09 96.5 67 18 113/74 99 02/13/16 20:46 98.8 66 18 99/61 99 I/O 02/13/16 02/13/16 02/13/16 02/14/16 02/14/16 02/14/16 07:00 15:00 23:00 07:00 15:00 23:00 Intake Total 1230 ml 240 ml 480 ml 0 ml 120 ml 360 ml Output Total 200 ml 250 ml 150 ml Balance 1030 ml -10 ml 480 ml 0 ml 120 ml 210 ml Intake Oral 1230 ml 240 ml 480 ml 0 ml 120 ml 360 ml Output Urine Total 200 ml 250 ml 150 ml # Voids 3 0 0 # Bowel Movements 0 0 Objective Remarks GENERAL: Well-nourished male in no acute distress. CARDIOVASCULAR: Regular rate and rhythm without murmurs, gallops, or rubs. RESPIRATORY: Breath sounds equal bilaterally. No accessory muscle use. GASTROINTESTINAL: Abdomen soft, non-tender, nondistended. MUSCULOSKELETAL: right BKA stump well healed. Neuro/Psych: Alert of self and location but confused about dates and situation. Procedures None A/P Problem List: (1) Cellulitis ICD Code: L03.90 Status: Resolved (2) Ischemic cardiomyopathy ICD Code: I25.5 Status: Chronic (3) Diabetes mellitus type 2 in obese ICD Code: E11.9 Status: Chronic (4) S/P BKA (below knee amputation) unilateral ICD Code: Z89.519 Status: Chronic (5) Acute metabolic encephalopathy ICD Code: G93.41 Status: Resolved (6) Bacteremia ICD Code: R78.81 Status: Resolved (7) Chronic systolic (congestive) heart failure ICD Code: I50.22 Status: Chronic (8) Venous stasis ulcer of left lower extremity ICD Code: I83.029 Status: Chronic (9) CVA (cerebral vascular accident) ICD Code: I63.9 Status: Chronic (10) Seborrheic dermatitis ICD Code: L21.9 Status: Resolved Assessment and Plan 60-year-old male with admitted 10/14 with acute cortical infarct. Patient remains with significant cognitive deficit. - Bilateral CVA:MRI showed acute cortical infarct. MRA of head and neck unremarkable. Neurology following. S/p ASA and Plavix. -Continue with Statin. -Continue Coumadin 3 mg daily and monitor INR/PT keep INR between 2 and 3, Pharmacy ff- -Discharged from PT and OT as he has reached maximum benefit here. Out of bed with nursing only. Patient was counseled to not get out of bed on his own. Ischemic Cardiomyopathy/chronic systolic CHF LVEF 35% on echo 03/2015. Denies shortness of breath. Compensated. -Continue Coreg, Imdur, enalapril. -Could consider AICD if patient is able to consent, however patient is currently unable to consent -Fluid and sodium restrictions, follow volume status. 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 -Avoid nephrotoxins. -Monitor BMP intermittently - left tibial surface- with superficial wound - improving posterior aspect with erythema- avoid pressure Bacitracin bid discussed with him- avoid pressure- elevate leg - Diabetic mellitus - Glucose was well controlled. All insulin discontinued. -accu-checks discontinued as patient's blood sugar well controlled and Hgb A1c 6.9. -continue diet control - PAD -stable. Continue above meds - Intermittent agitation- -Continue Seroquel- Increase to 25 mg TID. Constipation-on cathartics and laxatives daily. Milk of magnesia as needed. Continue to monitor - DVT prophylaxis - patient on Coumadin Discharge Planning Needs placement. Case management following. Problem Qualifiers (1) Cellulitis: (2) S/P BKA (below knee amputation) unilateral: Qualified Code: Z89.511 - S/P BKA (below knee amputation) unilateral, right (3) CVA (cerebral vascular accident): Qualified Code: I63.9 - Cerebrovascular accident (CVA), unspecified mechanism Tika Robles MD Feb 14, 2016 16:51
[2016-02-14 20:06] VITALS: BP 130/80; PULSE 82; RESP 18; TEMP 98.1; O2SAT 98
[2016-02-14] MEDS: ISOSORBIDE MONONITRATE 60 MG TAB PO SCH (22:13)
[2016-02-15 00:06] VITALS: BP 127/79; PULSE 78; RESP 18; TEMP 97.6; O2SAT 98
[2016-02-15 05:01] VITALS: BP 116/69; PULSE 70; RESP 18; TEMP 98.3; O2SAT 96
[2016-02-15] MEDS: BACITRACIN TOP OINT 15 GM TUBE TOP SCH ×3 (05:56→21:59)
[2016-02-15 08:33] VITALS: BP 128/77; PULSE 70; RESP 17; TEMP 96.5; O2SAT 98
[2016-02-15] MEDS: BETAMETHASONE DIPROPIONATE 0.05% OINT 15 GM TUBE TOP SCH ×2 (09:00→21:00)
[2016-02-15] MEDS: LACTULOSE SYRUP 20 GM/30 ML CUP PO SCH (09:00)
[2016-02-15] MEDS: NYSTATIN 100,000 U/GM PWD 15 GM BTL TOPICAL SCH (09:00)
[2016-02-15] MEDS: SODIUM CHLORIDE 0.9% FLUSH 5 ML FLUSH FLUSH SCH (09:00)
[2016-02-15] MEDS: EUCERIN CREAM 120 GM JAR TOPICAL SCH ×2 (09:00→21:00)
[2016-02-15] MEDS: ATORVASTATIN 80 MG TAB PO SCH (10:00)
[2016-02-15] MEDS: QUEtiapine FUMARATE 25 MG TAB PO SCH ×3 (10:00→18:00)
[2016-02-15] MEDS: POLYETHYLENE GLYCOL 17 GM PKG PO SCH (10:00)
[2016-02-15] MEDS: DOCUSATE SODIUM 50 MG/SENNA 8.6 MG TAB PO SCH ×2 (10:01→21:58)
[2016-02-15] MEDS: CARVEDILOL 12.5 MG TAB PO SCH ×2 (10:01→21:57)
[2016-02-15] MEDS: ENALAPRIL MALEATE 2.5 MG TAB PO SCH (10:02)
[2016-02-15 12:47] VITALS: BP 99/51; PULSE 76; RESP 16; TEMP 96.6; O2SAT 96
[2016-02-15] MEDS: WARFARIN SOD 5 MG TAB PO SCH (15:58)
[2016-02-15 16:57] VITALS: BP 94/56; PULSE 73; RESP 17; TEMP 97; O2SAT 99
--- NOTE | 2016-02-15 17:09 | HHI.PR ---
Subjective Remarks No change in the patients clinical status. He states that he is doing okay. Still confused. Objective Vitals Vital Signs Date Time Temp Pulse Resp B/P Pulse Ox O2 Delivery O2 Flow Rate FiO2 02/15/16 16:57 97.0 73 17 94/56 99 02/15/16 12:47 96.6 76 16 99/51 96 02/15/16 08:33 96.5 70 17 128/77 98 02/15/16 05:01 98.3 70 18 116/69 96 02/15/16 00:06 97.6 78 18 127/79 98 02/14/16 20:06 98.1 82 18 130/80 98 I/O 02/14/16 02/14/16 02/14/16 02/15/16 02/15/16 02/15/16 07:00 15:00 23:00 07:00 15:00 23:00 Intake Total 0 ml 120 ml 840 ml 0 ml 60 ml Output Total 575 ml Balance 0 ml 120 ml 265 ml 0 ml 60 ml Intake Oral 0 ml 120 ml 840 ml 0 ml 60 ml Output Urine Total 575 ml # Voids 0 0 # Bowel Movements 0 0 0 Objective Remarks GENERAL: Well-nourished male in no acute distress. CARDIOVASCULAR: Regular rate and rhythm without murmurs, gallops, or rubs. RESPIRATORY: Breath sounds equal bilaterally. No accessory muscle use. GASTROINTESTINAL: Abdomen soft, non-tender, nondistended. MUSCULOSKELETAL: right BKA stump well healed. Neuro/Psych: Alert of self and location but confused about dates and situation. Procedures None A/P Problem List: (1) Cellulitis ICD Code: L03.90 Status: Resolved (2) Ischemic cardiomyopathy ICD Code: I25.5 Status: Chronic (3) Diabetes mellitus type 2 in obese ICD Code: E11.9 Status: Chronic (4) S/P BKA (below knee amputation) unilateral ICD Code: Z89.519 Status: Chronic (5) Acute metabolic encephalopathy ICD Code: G93.41 Status: Resolved (6) Bacteremia ICD Code: R78.81 Status: Resolved (7) Chronic systolic (congestive) heart failure ICD Code: I50.22 Status: Chronic (8) Venous stasis ulcer of left lower extremity ICD Code: I83.029 Status: Chronic (9) CVA (cerebral vascular accident) ICD Code: I63.9 Status: Chronic (10) Seborrheic dermatitis ICD Code: L21.9 Status: Resolved Assessment and Plan 60-year-old male with admitted 10/14 with acute cortical infarct. Patient remains with significant cognitive deficit. - Bilateral CVA:MRI showed acute cortical infarct. MRA of head and neck unremarkable. Neurology following. S/p ASA and Plavix. -Continue with Statin. -Continue Coumadin 3 mg daily and monitor INR/PT keep INR between 2 and 3, Pharmacy ff- -Discharged from PT and OT as he has reached maximum benefit here. Out of bed with nursing only. Patient was counseled to not get out of bed on his own. Fall risk due to cognitive deficit Ischemic Cardiomyopathy/chronic systolic CHF LVEF 35% on echo 03/2015. Denies shortness of breath. Compensated. -Continue Coreg, Imdur, enalapril. -Could consider AICD if patient is able to consent, however patient is currently unable to consent -Fluid and sodium restrictions, follow volume status. 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 -Avoid nephrotoxins. -Monitor BMP intermittently - left tibial surface- with superficial wound - improving posterior aspect with erythema- avoid pressure Bacitracin bid discussed with him- avoid pressure- elevate leg - Diabetic mellitus - Glucose was well controlled. All insulin discontinued. -accu-checks discontinued as patient's blood sugar well controlled and Hgb A1c 6.9. -continue diet control - PAD -stable. Continue above meds - Intermittent agitation- -Continue Seroquel- Increase to 25 mg TID. Constipation-on cathartics and laxatives daily. Milk of magnesia as needed. Continue to monitor - DVT prophylaxis - patient on Coumadin Discharge Planning Needs placement. Case management following. Problem Qualifiers (1) Cellulitis: (2) S/P BKA (below knee amputation) unilateral: Qualified Code: Z89.511 - S/P BKA (below knee amputation) unilateral, right (3) CVA (cerebral vascular accident): Qualified Code: I63.9 - Cerebrovascular accident (CVA), unspecified mechanism Tika Robles MD Feb 15, 2016 17:09
[2016-02-15 20:00] VITALS: BP 116/68; PULSE 72; RESP 18; TEMP 96.9; O2SAT 98
[2016-02-15] MEDS: ISOSORBIDE MONONITRATE 60 MG TAB PO SCH (21:57)
[2016-02-16] VITALS: BP 93/66; PULSE 66; RESP 20; TEMP 95.8; O2SAT 98
[2016-02-16 05:30] VITALS: BP 102/62; PULSE 69; RESP 20; TEMP 97.5; O2SAT 94
[2016-02-16 07:45] VITALS: BP 127/64; PULSE 67; RESP 20; TEMP 96; O2SAT 98
[2016-02-16 08:49] LABS: INTERNATIONAL NORMALIZED RATIO 1.4 RATIO; PROTHROMBIN TIME - PATIENT 14.8 SEC (9.8-11.4)
[2016-02-16] MEDS: SODIUM CHLORIDE 0.9% FLUSH 5 ML FLUSH FLUSH SCH ×2 (09:00→21:00)
[2016-02-16] MEDS: DOCUSATE SODIUM 50 MG/SENNA 8.6 MG TAB PO SCH ×2 (09:26→21:25)
[2016-02-16] MEDS: LACTULOSE SYRUP 20 GM/30 ML CUP PO SCH (09:26)
[2016-02-16] MEDS: ENALAPRIL MALEATE 2.5 MG TAB PO SCH (09:26)
[2016-02-16] MEDS: POLYETHYLENE GLYCOL 17 GM PKG PO SCH (09:26)
[2016-02-16] MEDS: CARVEDILOL 12.5 MG TAB PO SCH ×2 (09:26→21:24)
[2016-02-16] MEDS: QUEtiapine FUMARATE 25 MG TAB PO SCH ×3 (09:26→17:27)
[2016-02-16] MEDS: ATORVASTATIN 80 MG TAB PO SCH (09:26)
[2016-02-16] MEDS: EUCERIN CREAM 120 GM JAR TOPICAL SCH ×2 (09:27→21:26)
[2016-02-16] MEDS: NYSTATIN 100,000 U/GM PWD 15 GM BTL TOPICAL SCH (09:27)
[2016-02-16] MEDS: BETAMETHASONE DIPROPIONATE 0.05% OINT 15 GM TUBE TOP SCH ×2 (09:28→21:27)
[2016-02-16 12:00] VITALS: BP 103/66; PULSE 66; RESP 20; TEMP 96.4; O2SAT 98
[2016-02-16] MEDS: BACITRACIN TOP OINT 15 GM TUBE TOP SCH ×2 (13:28→21:26)
--- NOTE | 2016-02-16 13:52 | HHI.PR ---
Subjective Remarks No change in clinical status. Patient says he feels lousy as usual but cannot offer any specific complaints. Objective Vitals Vital Signs Date Time Temp Pulse Resp B/P Pulse Ox O2 Delivery O2 Flow Rate FiO2 02/16/16 12:00 96.4 66 20 103/66 98 02/16/16 07:45 96.0 67 20 127/64 98 02/16/16 05:30 97.5 69 20 102/62 94 02/16/16 00:00 95.8 66 20 93/66 98 02/15/16 20:00 96.9 72 18 116/68 98 02/15/16 16:57 97.0 73 17 94/56 99 I/O 02/15/16 02/15/16 02/15/16 02/16/16 02/16/16 02/16/16 07:00 15:00 23:00 07:00 15:00 23:00 Intake Total 0 ml 60 ml 120 ml Output Total 0 ml 0 ml Balance 0 ml 60 ml 120 ml 0 ml Intake Oral 0 ml 60 ml 120 ml Output Urine Total 0 ml 0 ml # Voids 0 # Bowel Movements 0 0 Objective Remarks GENERAL: Well-nourished male in no acute distress. CARDIOVASCULAR: Regular rate and rhythm without murmurs, gallops, or rubs. RESPIRATORY: Breath sounds equal bilaterally. No accessory muscle use. GASTROINTESTINAL: Abdomen soft, non-tender, nondistended. MUSCULOSKELETAL: right BKA stump well healed. Neuro/Psych: Alert of self and location but confused about dates and situation. Procedures None A/P Problem List: (1) Cellulitis ICD Code: L03.90 Status: Resolved (2) Ischemic cardiomyopathy ICD Code: I25.5 Status: Chronic (3) Diabetes mellitus type 2 in obese ICD Code: E11.9 Status: Chronic (4) S/P BKA (below knee amputation) unilateral ICD Code: Z89.519 Status: Chronic (5) Acute metabolic encephalopathy ICD Code: G93.41 Status: Resolved (6) Bacteremia ICD Code: R78.81 Status: Resolved (7) Chronic systolic (congestive) heart failure ICD Code: I50.22 Status: Chronic (8) Venous stasis ulcer of left lower extremity ICD Code: I83.029 Status: Chronic (9) CVA (cerebral vascular accident) ICD Code: I63.9 Status: Chronic (10) Seborrheic dermatitis ICD Code: L21.9 Status: Resolved Assessment and Plan 60-year-old male with admitted 10/14 with acute cortical infarct. Patient remains with significant cognitive deficit. - Bilateral CVA:MRI showed acute cortical infarct. MRA of head and neck unremarkable. Neurology following. S/p ASA and Plavix. -Continue with Statin. -Continue Coumadin 3 mg daily and monitor INR/PT keep INR between 2 and 3, Pharmacy ff- -Discharged from PT and OT as he has reached maximum benefit here. Out of bed with nursing only. Patient was counseled to not get out of bed on his own. Fall risk due to cognitive deficit Ischemic Cardiomyopathy/chronic systolic CHF LVEF 35% on echo 03/2015. Denies shortness of breath. Compensated. -Continue Coreg, Imdur, enalapril. -Could consider AICD if patient is able to consent, however patient is currently unable to consent -Fluid and sodium restrictions, follow volume status. 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 -Avoid nephrotoxins. -Monitor BMP intermittently - left tibial surface- with superficial wound - improving posterior aspect with erythema- avoid pressure Bacitracin bid discussed with him- avoid pressure- elevate leg - Diabetic mellitus - Glucose was well controlled. All insulin discontinued. -accu-checks discontinued as patient's blood sugar well controlled and Hgb A1c 6.9. -continue diet control - PAD -stable. Continue above meds - Intermittent agitation- -Continue Seroquel- Increase to 25 mg TID. Constipation-on cathartics and laxatives daily. Milk of magnesia as needed. Continue to monitor - DVT prophylaxis - patient on Coumadin Discharge Planning Needs placement. Case management following. Problem Qualifiers (1) Cellulitis: (2) S/P BKA (below knee amputation) unilateral: Qualified Code: Z89.511 - S/P BKA (below knee amputation) unilateral, right (3) CVA (cerebral vascular accident): Qualified Code: I63.9 - Cerebrovascular accident (CVA), unspecified mechanism Tika Robles MD Feb 16, 2016 13:52
[2016-02-16 16:00] VITALS: BP 125/79; PULSE 69; RESP 20; TEMP 96.6; O2SAT 97
[2016-02-16] MEDS ORDERED: WARFARIN SOD 2.5 MG TAB PO SCH (16:00)
[2016-02-16] MEDS: WARFARIN SOD 5 MG TAB PO SCH (17:27)
[2016-02-16 20:00] VITALS: BP 118/73; PULSE 74; RESP 17; TEMP 96.9; O2SAT 99
[2016-02-16] MEDS: ISOSORBIDE MONONITRATE 60 MG TAB PO SCH (21:31)
[2016-02-17] VITALS: BP 86/58; PULSE 71; RESP 16; TEMP 97.4; O2SAT 94
[2016-02-17 04:00] VITALS: BP 100/72; PULSE 74; RESP 18; TEMP 97.1; O2SAT 97
[2016-02-17] MEDS: BACITRACIN TOP OINT 15 GM TUBE TOP SCH ×3 (06:43→21:53)
[2016-02-17 07:16] LABS: INTERNATIONAL NORMALIZED RATIO 1.4 RATIO; PROTHROMBIN TIME - PATIENT 14.7 SEC (9.8-11.4)
[2016-02-17] MEDS: ENALAPRIL MALEATE 2.5 MG TAB PO SCH (09:00)
[2016-02-17] MEDS: SODIUM CHLORIDE 0.9% FLUSH 5 ML FLUSH FLUSH SCH (09:00)
[2016-02-17 09:03] VITALS: BP 116/78; PULSE 72; RESP 15; TEMP 96.5; O2SAT 98
[2016-02-17] MEDS: POLYETHYLENE GLYCOL 17 GM PKG PO SCH (09:16)
[2016-02-17] MEDS: DOCUSATE SODIUM 50 MG/SENNA 8.6 MG TAB PO SCH ×2 (09:17→21:48)
[2016-02-17] MEDS: QUEtiapine FUMARATE 25 MG TAB PO SCH ×3 (09:17→17:11)
[2016-02-17] MEDS: CARVEDILOL 12.5 MG TAB PO SCH ×2 (09:17→21:47)
[2016-02-17] MEDS: ATORVASTATIN 40 MG TAB PO SCH (09:17)
[2016-02-17] MEDS: LACTULOSE SYRUP 20 GM/30 ML CUP PO SCH (09:17)
[2016-02-17] MEDS: EUCERIN CREAM 120 GM JAR TOPICAL SCH ×2 (09:22→21:53)
[2016-02-17] MEDS: BETAMETHASONE DIPROPIONATE 0.05% OINT 15 GM TUBE TOP SCH ×2 (09:22→21:52)
[2016-02-17] MEDS: NYSTATIN 100,000 U/GM PWD 15 GM BTL TOPICAL SCH ×2 (12:00→21:48)
--- NOTE | 2016-02-17 12:06 | HHI.PR ---
Subjective Remarks 61-year-old male who originally presented to the hospital because he was found on the floor by family members and brought to the hospital for altered mental status. Patient was found to have bilateral cerebral vascular accidents. Patient had workup and MRI confirmed CVA. Patient had full workup performed, neurology did follow patient recommended long-term anticoagulation. Patient was started on Coumadin, pharmacy is managing Coumadin dosing. Patient with chronic cognitive abnormalities since stroke. Case management has working diligently to find placement for discharge. However, they have been unsuccessful in locating a facility that would accept the patient or insurance. For that reason it was recommended that the patient be transferred to [place] for long-term care. Upon evaluating the patient he is orientated to person only. He states that even eating well, states that he would have a bowel movement, however medical records indicate no bowel movement in 7 days. Objective Vitals Vital Signs Date Time Temp Pulse Resp B/P Pulse Ox O2 Delivery O2 Flow Rate FiO2 02/17/16 09:03 96.5 72 15 116/78 98 02/17/16 04:00 97.1 74 18 100/72 97 02/17/16 00:00 97.4 71 16 86/58 94 02/16/16 20:00 96.9 74 17 118/73 99 02/16/16 16:00 96.6 69 20 125/79 97 02/16/16 12:00 96.4 66 20 103/66 98 I/O 02/16/16 02/16/16 02/16/16 02/17/16 02/17/16 02/17/16 07:00 15:00 23:00 07:00 15:00 23:00 Intake Total 600 ml 450 ml 590 ml Output Total 0 ml 250 ml 0 ml Balance 0 ml 350 ml 450 ml 590 ml Intake Oral 600 ml 450 ml 590 ml Output Urine Total 0 ml 250 ml 0 ml # Bowel Movements 0 0 0 Objective Remarks GENERAL: Well-developed, well-nourished, in no acute distress. alert and orientated to person only HEENT: Head is normocephalic without any lesions or masses noted. Facial features are symmetric. Eyes: Pupils equal round reactive to light. Extraocular muscles are intact. Conjunctivae were clear. NECK: Supple without any masses. Trachea midline no deviation. No JVD, CARDIAC: Regular rhythm, regular rate. S1/S2 are heard. No murmurs gallops or rubs. LUNGS: Clear to auscultation bilaterally. No wheeze, rhonchi or rales. No use of accessory muscles on inspiration or expiration. ABDOMEN: Soft, nontender. Nondistended. Bowel sounds heard in all 4 quadrants. No organomegaly or masses. Negative rebound, negative guarding. Patient has erythema in inguinal folds EXTREMITIES: No edema, pulses are equal bilaterally. No cyanosis or clubbing. Right [id number] amputation. Left foot and Multi-Podus boot, patient does have multiple skin tears, dry skin flaking off. NEUROLOGY: Mood and affect appear appropriate. Cranial nerves II through XII grossly intact. Moving all extremities, speech is clear Procedures None Urinary Catheter: No Vascular Central Line Catheter: No A/P Assessment and Plan 60-year-old male with admitted 10/14 with acute cortical infarct. Patient remains with significant cognitive deficit. Bilateral cerebrovascular accident, with persistent cognitive defect -MRI showed acute cortical infarct of the right cerebral peduncle to the pelvis , left thalamus punctate area of infarct -Neurology last seen patient on 11/13/15, recommended long-term anticoagulation -Continue with Statin. -Continue Coumadin 5 mg daily and monitor INR/PT keep INR between 2 and 3, pharmacy consult for dosing -Discharged from PT and OT as he has reached maximum benefit here. -Out of bed with nursing only. Patient was counseled to not get out of bed on his own. Fall risk due to cognitive deficit Ischemic Cardiomyopathy/chronic systolic CHF LVEF 35% on echo 03/2015. Denies shortness of breath. Compensated. -Continue Coreg, Imdur, enalapril. -Could consider AICD if patient is able to consent, however patient is currently unable to consent -Fluid and sodium restrictions, follow volume status. 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 -Avoid nephrotoxins. -Monitor BMP intermittently left tibial surface- with superficial wound - improving -posterior aspect with erythema avoid pressure Bacitracin bid Bacteremia with Staphylococcus hemolyticus, from wounds. Resolved -Follow blood cultures have been negative since 10/16/15 -Status post Keflex and Cipro management -Infectious disease managed patient Tinea cruris -Start nystatin powder twice daily for a week Diabetic mellitus - Glucose was well controlled. All insulin discontinued. -accu-checks discontinued as patient's blood sugar well controlled and Hgb A1c 6.9. -continue diet control Peripheral arterial disease-stable. -Continue anticoagulation Intermittent agitation- -Continue Seroquel 25 mg TID. May continue to adjust if needed Constipation, no documented bowel movement in 7 days -Obtain abdominal x-ray -Milk of magnesia as needed. -MiraLAX, lactulose, Haydee-Colace daily DVT prophylaxis - patient on Coumadin Discharge Planning Case management arranging discharge planning to longterm facility once a finding facility that'll accept the patient/insurance Truman Fulton Feb 17, 2016 12:06 Trisha Lim MD Feb 17, 2016 16:44
--- NOTE | 2016-02-17 13:54 | RADHPO ---
EXAM DATE/TIME: 02/17/2016 12:13 [facility] COMPARISON: No previous studies available for comparison. INDICATIONS : Constipation. MEDICAL HISTORY : Renal calculi. Congestive heart failure. Diabetic. CAD. SURGICAL HISTORY : CABG. ENCOUNTER: Subsequent ACUITY: 4 - 6 months PAIN SCORE: 0/10 LOCATION: abdomen FINDINGS: Supine view of the abdomen was performed. There is minimally prominent small bowel upper abdomen. Th ere is scattered stool in the colon. No free air seen. Prominent spurring is seen in the lumbar spine . No abnormal calcifications are seen. CONCLUSION: Moderate amount stool in the colon especially on the left side. There are some minimally prominent se gments of small bowel in the upper abdomen. Camacho Santana MD on February 17, 2016 at 13:47 Board Certified Radiologist. This report was verified electronically.
[2016-02-17 14:20] VITALS: BP 121/82; PULSE 74; RESP 15; TEMP 97.3; O2SAT 99
[2016-02-17] MEDS ORDERED: WARFARIN SOD 7.5 MG TAB PO ONE (16:00)
[2016-02-17 17:35] VITALS: BP 121/83; PULSE 73; RESP 15; TEMP 96.8; O2SAT 97
[2016-02-17 20:00] VITALS: BP 129/85; PULSE 75; RESP 20; TEMP 97.4; O2SAT 99
[2016-02-17] MEDS: ISOSORBIDE MONONITRATE 60 MG TAB PO SCH (21:48)
[2016-02-18] MEDS: BACITRACIN TOP OINT 15 GM TUBE TOP SCH ×3 (05:38→19:56)
[2016-02-18 07:17] LABS: INTERNATIONAL NORMALIZED RATIO 1.4 RATIO; PROTHROMBIN TIME - PATIENT 14.3 SEC (9.8-11.4)
[2016-02-18] MEDS: BETAMETHASONE DIPROPIONATE 0.05% OINT 15 GM TUBE TOP SCH ×2 (09:00→19:57)
[2016-02-18] MEDS: ENALAPRIL MALEATE 2.5 MG TAB PO SCH (09:00)
[2016-02-18] MEDS: CARVEDILOL 12.5 MG TAB PO SCH ×2 (09:21→19:56)
[2016-02-18] MEDS: ATORVASTATIN 40 MG TAB PO SCH (09:21)
[2016-02-18] MEDS: POLYETHYLENE GLYCOL 17 GM PKG PO SCH (09:21)
[2016-02-18] MEDS: LACTULOSE SYRUP 20 GM/30 ML CUP PO SCH (09:21)
[2016-02-18] MEDS: DOCUSATE SODIUM 50 MG/SENNA 8.6 MG TAB PO SCH ×2 (09:21→19:56)
[2016-02-18] MEDS: NYSTATIN 100,000 U/GM PWD 15 GM BTL TOPICAL SCH ×2 (09:22→19:56)
[2016-02-18] MEDS: EUCERIN CREAM 120 GM JAR TOPICAL SCH ×2 (09:22→19:57)
[2016-02-18] MEDS: QUEtiapine FUMARATE 25 MG TAB PO SCH ×2 (09:22→12:34)
--- NOTE | 2016-02-18 10:37 | HHI.PR ---
Subjective Remarks No acute complaints. Objective Vitals Vital Signs Date Time Temp Pulse Resp B/P Pulse Ox O2 Delivery O2 Flow Rate FiO2 02/17/16 20:00 97.4 75 20 129/85 99 Manual Cuff/Auscultation 02/17/16 17:35 96.8 73 15 121/83 97 02/17/16 14:20 97.3 74 15 121/82 99 I/O 02/17/16 02/17/16 02/17/16 02/18/16 02/18/16 02/18/16 07:00 15:00 23:00 07:00 15:00 23:00 Intake Total 590 ml 800 ml 60 ml Output Total 225 ml 275 ml Balance 590 ml 575 ml -215 ml Intake Oral 590 ml 800 ml 60 ml Output Urine Total 225 ml 275 ml # Voids 2 # Bowel Movements 0 Imaging Last Impressions Abdomen X-Ray 02/17/16 0000 Signed Impressions: Service Date/Time: Wednesday, February 17, 2016 12:13 - CONCLUSION: Moderate amount stool in the colon especially on the left side. There are some minimally prominent segments of small bowel in the upper abdomen. Camacho Santana MD Chest X-Ray 11/06/15 0000 Signed Impressions: Service Date/Time: Friday, November 06, 2015 11:35 - CONCLUSION: Compensated cardiomegaly, history of bypass otherwise negative. Superior most sternal wire is fractured. Didier Clay MD FACR Liver Ultrasound 10/30/15 0000 Signed Impressions: Service Date/Time: Friday, October 30, 2015 17:29 - CONCLUSION: 1. Cholelithiasis with probable gallbladder sludge and mild gallbladder distention. 2. Splenomegaly. Sameer Alexandra MD Modified Barium Swallow 10/27/15 0000 Signed Impressions: Service Date/Time: Tuesday, October 27, 2015 00:00 - CONCLUSION: Negative for penetration or aspiration. Please see speech pathology report. Tai Cohen MD Brain MRI 10/22/15 0000 Signed Impressions: Service Date/Time: September 14:38 - CONCLUSION: 1. No significant interval change is identified. There is stable restricted diffusion in the left basal ganglia representing an area of recent ischemia. There are no findings to indicate hemorrhagic transformation. The previously documented signal change within the right cerebral peduncle has nearly normalized. 2. Stable chronic white matter changes. Camacho Culp MD Neck Magnetic Resonance Angiography 10/21/15 0000 Signed Impressions: Service Date/Time: Wednesday, October 21, 2015 12:52 - CONCLUSION: . 1. Unremarkable MRA of the carotid arteries bilaterally. 2. Nonspecific possible collateral vessels in the soft tissues posterior to the right vertebral artery. The right verbal artery appears to be patent. If clinically indicated, a CTA could be performed for further evaluation. Abiodun Hall MD Head Magnetic Resonance Angiography 10/21/15 Signed Impressions: Service Date/Time: Wednesday, October 21, 2015 12:52 - CONCLUSION: Unremarkable MRA of the brain. Abiodun Hall MD Head CT [id number]/[id number] Signed Impressions: Service Date/Time: September 21:47 - CONCLUSION: 1. No evidence of hemorrhage or mass effect. 2. Lacunar infarct right thalamus, left basal ganglia and adjacent to the left lateral ventricular body. 3. No skull fracture seen. Daryl Varner MD Objective Remarks GENERAL: Well-nourished, well-developed male in no apparent distress. SKIN: Warm and dry. CARDIOVASCULAR: Regular rate and rhythm. RESPIRATORY: No accessory muscle use. Clear to auscultation. Breath sounds equal bilaterally. GASTROINTESTINAL: Normoactive bowel sounds. Abdomen soft, non-tender, nondistended. MUSCULOSKELETAL: Foam boot over L heel. NEUROLOGICAL: Awake and alert. Partially oriented. Normal speech. PSYCHIATRIC: Appropriate mood and affect. Procedures None Urinary Catheter: No Vascular Central Line Catheter: No A/P Problem List: (1) Cellulitis ICD Code: L03.90 Status: Resolved (2) Ischemic cardiomyopathy ICD Code: I25.5 Status: Chronic (3) Diabetes mellitus type 2 in obese ICD Code: E11.9 Status: Chronic (4) S/P BKA (below knee amputation) unilateral ICD Code: Z89.519 Status: Chronic (5) Acute metabolic encephalopathy ICD Code: G93.41 Status: Resolved (6) Bacteremia ICD Code: R78.81 Status: Resolved (7) Chronic systolic (congestive) heart failure ICD Code: I50.22 Status: Chronic (8) Venous stasis ulcer of left lower extremity ICD Code: I83.029 Status: Chronic (9) CVA (cerebral vascular accident) ICD Code: I63.9 Status: Chronic (10) Seborrheic dermatitis ICD Code: L21.9 Status: Resolved Assessment and Plan 60-year-old male with admitted 10/14 with acute cortical infarct. Patient remains with significant cognitive deficit. Bilateral cerebrovascular accident, with persistent cognitive defect -MRI showed acute cortical infarct of the right cerebral peduncle to the pelvis , left thalamus punctate area of infarct -Neurology last seen patient on 11/13/15, recommended long-term anticoagulation -Continue with Statin. -Continue Coumadin 5 mg daily and monitor INR/PT keep INR between 2 and 3, pharmacy consult for dosing; INR 1.4 today. -Discharged from PT and OT as he has reached maximum benefit here. -Out of bed with nursing only. Patient was counseled to not get out of bed on his own. Fall risk due to cognitive deficit Ischemic Cardiomyopathy/chronic systolic CHF LVEF 35% on echo 03/2015. Denies shortness of breath. Compensated. -Continue Coreg, Imdur, enalapril. -Could consider AICD if patient is able to consent, however patient is currently unable to consent -Fluid and sodium restrictions, follow volume status. Chronic kidney disease stage 3/4. -Avoid nephrotoxins. -New BMP today shows acute worsening with BUN 55 and Cr 2.0, prerenal. Will encourage by mouth hydration although still keep within 1500 mL/day limit due to CHF. Monitor BMP. left tibial surface- with superficial wound - improving -posterior aspect with erythema avoid pressure Bacitracin bid Bacteremia with Staphylococcus hemolyticus, from wounds. Resolved -Follow blood cultures have been negative since 10/16/15 -Status post Keflex and Cipro management -Infectious disease managed patient Tinea cruris -Nystatin powder twice daily for a week Diabetic mellitus - Glucose was well controlled. All insulin discontinued. -Accu-checks discontinued as patient's blood sugar well controlled and Hgb A1c 6.9. -continue diet control Peripheral arterial disease-stable. -Continue anticoagulation Intermittent agitation- -Continue Seroquel 25 mg TID. May continue to adjust if needed Constipation: no documented bowel movement in 8 days -Abdominal x-ray with moderate amount of stool in the colon on the left side; minimally prominent segments of small bowel in the upper abdomen -Milk of magnesia as needed. -MiraLAX, lactulose, Haydee-Colace scheduled daily but with no improvement -One time dose of magnesium citrate and Dulcolax suppository is ordered. Will avoid Fleets enema due to worsening renal function. DVT prophylaxis - patient on Coumadin Discharge Planning Have to have accepting SNF in order to get Medicaid. Case management following. Problem Qualifiers (1) Cellulitis: (2) S/P BKA (below knee amputation) unilateral: Qualified Code: Z89.511 - S/P BKA (below knee amputation) unilateral, right (3) CVA (cerebral vascular accident): Qualified Code: I63.9 - Cerebrovascular accident (CVA), unspecified mechanism Jennifer Mae Feb 18, 2016 10:36
[2016-02-18 10:53] LABS: POTASSIUM 4.5 MEQ/L (3.5-5.1)
[2016-02-18] MEDS ORDERED: BISACODYL 10 MG SUPP PR ONE (11:00)
[2016-02-18] MEDS ORDERED: WARFARIN SOD 2.5 MG TAB PO ONE (12:00)
[2016-02-18] MEDS ORDERED: MAGNESIUM CITRATE SOLN 300 ML BTL PO ONE (12:30)
--- NOTE | 2016-02-18 15:21 | HHI.PYPN ---
Subjective Remarks Patient was seen and reevaluated in the medical floor. Chart was extensively review, case was discussed with primary medical team and nursing staff. On evaluation patient is irritable, sarcastic, oppositional, but with redirection he can answer some questions and provides some information. He says that he feels fine, describes mood as normal. He reports good sleep, good appetite, fair level of energy. He denies suicidal or homicidal ideation. He denies anxiety and perceptual disturbances. No paranoia, delusions, aggressive behavior, agitation, internal preoccupation observe. Patient is disoriented in time and place. He thinks we are [place] in 1957. He would not cooperate with Mini-Mental state. As per nursing staff, Patient has been medication compliant , at times can be condensing and verbally hostile. Review of Systems Constitutional: DENIES: Diaphoretic episodes, Fatigue, Fever, Weight gain, Weight loss, Chills, Dizziness, Change in appetite, Night Sweats Ears, nose, mouth, throat: DENIES: Tinnitus, Hearing loss, Vertigo, Nasal discharge, Oral lesions, Throat pain, Hoarseness, Ear Pain, Running Nose, Epistaxis, Sinus Pain, Toothache, Odynophagia Respiratory: DENIES: Apneas, Cough, Snoring, Wheezing, Hemoptysis, Sputum production, Shortness of breath Cardiovascular: DENIES: Chest pain, Palpitations, Syncope, Dyspnea on Exertion , PND, Lower Extremity Edema, Orthopnea, Claudication Gastrointestinal: DENIES: Abdominal pain, Black stools, Bloody stools, Constipation, Diarrhea, Nausea, Vomiting, Difficulty Swallowing, Anorexia Musculoskeletal: DENIES: Joint pain, Muscle aches, Stiffness, Joint Swelling, Back pain, Neck pain Integumentary: DENIES: Abnormal pigmentation, Nail changes, Pruritus, Rash Neurologic: COMPLAINS OF: Abnormal gait Psychiatric: DENIES: Anxiety, Confusion, Mood changes, Depression, Hallucinations, Agitation, Suicidal Ideation, Homicidal Ideation, Delusions Objective Alert: Yes [place]: Person Mood: Angry, Oppositional Affect: Restricted Memory Intact: Remote, Comment (impaired) Hallucinations: Other (he denies) Delusions: No Delusion Type: Other (none) Suicidal: Ideation (he denies) Homicidal: Ideation (he denies) Insight/Judgement Poor Labs Test 02/18/16 06:00 Prothrombin Time 14.3 SEC Prothromb Time International 1.4 RATIO Ratio Sodium Level 141 MEQ/L Potassium Level 4.5 MEQ/L Chloride Level 109 MEQ/L Carbon Dioxide Level 24.0 MEQ/L Anion Gap 8 MEQ/L Blood Urea Nitrogen 55 MG/DL Creatinine 2.00 MG/DL Estimat Glomerular Filtration 34 ML/MIN Rate Random Glucose 106 MG/DL Calcium Level 8.5 MG/DL Vitals/IOs Vital Signs Date Time Temp Pulse Resp B/P Pulse Ox O2 Delivery O2 Flow Rate FiO2 02/17/16 20:00 97.4 75 20 129/85 99 Manual Cuff/Auscultation Intake and Output 02/17/16 02/17/16 02/18/16 08:00 16:00 00:00 Intake Total 590 ml 800 ml Output Total 225 ml Balance 590 ml 575 ml Problem List: (1) Delirium secondary to multiple medical problems Assessment & Plan: Evaluation patient scan of oppositional, persisting, irritable, he is disoriented in time and place, Mini-Mental state was unable to performed, but is evident the patient has severe cognitive impairment. Irritability, agitation, aggressive behavior are potential manifestations of acute delirium and neurocognitive impairment. We will increase the Seroquel to 50 mg in the morning and 100 mg at night. Patient does not need any immediate psychiatric intervention at this moment. There is no psychiatric indication for permanent placement in a living facility. ICD Code: F05 Assessment & Plan Estimated LOS: days Request HC Surrog/Guard Advoc?: Yes Ab Beard MD Feb 18, 2016 15:21
[2016-02-18] MEDS: WARFARIN SOD 5 MG TAB PO SCH (16:15)
[2016-02-18 17:52] VITALS: BP 123/80; PULSE 76; RESP 14; TEMP 96.4; O2SAT 98
[2016-02-18] MEDS: QUEtiapine FUMARATE 100 MG TAB PO SCH (19:55)
[2016-02-18] MEDS: ISOSORBIDE MONONITRATE 60 MG TAB PO SCH (19:56)
[2016-02-18 20:00] VITALS: BP 123/82; PULSE 72; RESP 20; TEMP 97.4; O2SAT 97
[2016-02-19 05:35] LABS: POTASSIUM 4.4 MEQ/L (3.5-5.1)
[2016-02-19 05:38] LABS: BICARBONATE 21.6 MEQ/L (21.0-32.0)
[2016-02-19] MEDS: BACITRACIN TOP OINT 15 GM TUBE TOP SCH ×3 (06:19→20:51)
[2016-02-19 08:00] VITALS: BP 101/65; PULSE 68; RESP 19; TEMP 97; O2SAT 94
[2016-02-19] MEDS: ENALAPRIL MALEATE 2.5 MG TAB PO SCH (09:00)
[2016-02-19] MEDS: CARVEDILOL 12.5 MG TAB PO SCH ×2 (09:00→20:50)
[2016-02-19] MEDS: BETAMETHASONE DIPROPIONATE 0.05% OINT 15 GM TUBE TOP SCH ×2 (09:00→21:00)
[2016-02-19] MEDS: LACTULOSE SYRUP 20 GM/30 ML CUP PO SCH (09:51)
[2016-02-19] MEDS: POLYETHYLENE GLYCOL 17 GM PKG PO SCH (09:51)
[2016-02-19] MEDS: QUEtiapine FUMARATE 25 MG TAB PO SCH (09:51)
[2016-02-19] MEDS: ATORVASTATIN 40 MG TAB PO SCH (09:51)
[2016-02-19] MEDS: DOCUSATE SODIUM 50 MG/SENNA 8.6 MG TAB PO SCH ×2 (09:51→20:50)
[2016-02-19] MEDS: EUCERIN CREAM 120 GM JAR TOPICAL SCH ×2 (09:52→20:51)
[2016-02-19] MEDS: NYSTATIN 100,000 U/GM PWD 15 GM BTL TOPICAL SCH ×2 (09:52→20:51)
[2016-02-19] MEDS: WARFARIN SOD 5 MG TAB PO SCH (15:17)
--- NOTE | 2016-02-19 15:41 | HHI.PR ---
Subjective Remarks Late entry. Patient evaluated this morning. No acute complaints. Objective Vitals Vital Signs Date Time Temp Pulse Resp B/P Pulse Ox O2 Delivery O2 Flow Rate FiO2 02/19/16 08:00 97.0 68 19 101/65 94 02/18/16 20:00 97.4 72 20 123/82 97 02/18/16 17:52 96.4 76 14 123/80 98 I/O 02/18/16 02/18/16 02/18/16 02/19/16 02/19/16 02/19/16 06:59 14:59 22:59 06:59 14:59 22:59 Intake Total 60 ml 860 ml 0 ml Output Total 275 ml 275 ml 400 ml Balance -215 ml 585 ml -400 ml Intake Oral 60 ml 860 ml 0 ml Output Urine Total 275 ml 275 ml 400 ml # Voids 8 1 # Bowel Movements 0 2 0 Result Diagram: 02/19/16 0507 Objective Remarks GENERAL: Well-nourished, well-developed male in no apparent distress. SKIN: Warm and dry. Scabbed wound L johnson. CARDIOVASCULAR: Regular rate and rhythm. RESPIRATORY: No accessory muscle use. Clear to auscultation. Breath sounds equal bilaterally. GASTROINTESTINAL: Abdomen soft, non-tender, nondistended. MUSCULOSKELETAL: Foam boot over L heel. NEUROLOGICAL: Awake and alert. Normal speech. PSYCHIATRIC: Appropriate mood and affect. Procedures None Urinary Catheter: No Vascular Central Line Catheter: No A/P Problem List: (1) Cellulitis ICD Code: L03.90 Status: Resolved (2) Ischemic cardiomyopathy ICD Code: I25.5 Status: Chronic (3) Diabetes mellitus type 2 in obese ICD Code: E11.9 Status: Chronic (4) S/P BKA (below knee amputation) unilateral ICD Code: Z89.519 Status: Chronic (5) Acute metabolic encephalopathy ICD Code: G93.41 Status: Resolved (6) Bacteremia ICD Code: R78.81 Status: Resolved (7) Chronic systolic (congestive) heart failure ICD Code: I50.22 Status: Chronic (8) Venous stasis ulcer of left lower extremity ICD Code: I83.029 Status: Chronic (9) CVA (cerebral vascular accident) ICD Code: I63.9 Status: Chronic (10) Seborrheic dermatitis ICD Code: L21.9 Status: Resolved Assessment and Plan 60-year-old male with admitted 10/14 with acute cortical infarct. Patient remains with significant cognitive deficit. Bilateral cerebrovascular accident, with persistent cognitive defect -MRI showed acute cortical infarct of the right cerebral peduncle to the pelvis , left thalamus punctate area of infarct -Neurology last seen patient on 11/13/15, recommended long-term anticoagulation -Continue with Statin. -Continue Coumadin 5 mg daily and monitor INR/PT keep INR between 2 and 3, pharmacy consult for dosing; INR 1.4 today. -Discharged from PT and OT as he has reached maximum benefit here. -Out of bed with nursing only. Patient was counseled to not get out of bed on his own. Fall risk due to cognitive deficit Ischemic Cardiomyopathy/chronic systolic CHF LVEF 35% on echo 03/2015. Denies shortness of breath. Compensated. -Continue Coreg, Imdur, enalapril. -Could consider AICD if patient is able to consent, however patient is currently unable to consent -Fluid and sodium restrictions, follow volume status. Chronic kidney disease stage 3/4. -Avoid nephrotoxins. -BMP 02/17 with acute worsening with BUN 55 and Cr 2.0, prerenal. BUN stable today and Cr improved to 1.80. Encourage by mouth hydration although still keep within 1500 mL/day limit due to CHF. Monitor BMP. Patient is not on diuretics. left tibial surface- with superficial wound - improving -posterior aspect with erythema avoid pressure Bacitracin bid Bacteremia with Staphylococcus hemolyticus, from wounds. Resolved -Follow blood cultures have been negative since 10/16/15 -Status post Keflex and Cipro management -Infectious disease managed patient Tinea cruris -Nystatin powder twice daily for a week Diabetic mellitus - Glucose was well controlled. All insulin discontinued. -Accu-checks discontinued as patient's blood sugar well controlled and Hgb A1c 6.9. -continue diet control Peripheral arterial disease-stable. -Continue anticoagulation Intermittent agitation- -Psychiatry reevaluated the patient on 02/17 and increased Seroquel to 50 mg in the morning and 100 mg qhs. Constipation: no documented bowel movement in 8 days -Abdominal x-ray with moderate amount of stool in the colon on the left side; minimally prominent segments of small bowel in the upper abdomen -Milk of magnesia as needed. -MiraLAX, lactulose, Haydee-Colace scheduled daily -One time dose of magnesium citrate and Dulcolax suppository were ordered yesterday resulting in 2 bowel movements. Monitor. Avoid Fleet's enema use due to renal function. DVT prophylaxis - patient on Coumadin Discharge Planning Have to have accepting SNF in order to get Medicaid. Case management following. Problem Qualifiers (1) Cellulitis: (2) S/P BKA (below knee amputation) unilateral: Qualified Code: Z89.511 - S/P BKA (below knee amputation) unilateral, right (3) CVA (cerebral vascular accident): Qualified Code: I63.9 - Cerebrovascular accident (CVA), unspecified mechanism Jennifer Mae Feb 19, 2016 15:41 Trisha Lim MD Feb 21, 2016 06:16
[2016-02-19 20:00] VITALS: BP 112/79; PULSE 77; RESP 18; TEMP 97.4; O2SAT 97
[2016-02-19] MEDS: QUEtiapine FUMARATE 100 MG TAB PO SCH (20:50)
[2016-02-19] MEDS: ISOSORBIDE MONONITRATE 60 MG TAB PO SCH (20:51)
[2016-02-20] MEDS: BACITRACIN TOP OINT 15 GM TUBE TOP SCH ×3 (05:57→22:00)
[2016-02-20 07:38] LABS: INTERNATIONAL NORMALIZED RATIO 1.5 RATIO; POTASSIUM 4.4 MEQ/L (3.5-5.1); PROTHROMBIN TIME - PATIENT 15.4 SEC (9.8-11.4)
[2016-02-20 07:42] LABS: BICARBONATE 22.7 MEQ/L (21.0-32.0)
[2016-02-20] MEDS: LACTULOSE SYRUP 20 GM/30 ML CUP PO SCH (07:56)
[2016-02-20] MEDS: QUEtiapine FUMARATE 25 MG TAB PO SCH (07:56)
[2016-02-20] MEDS: DOCUSATE SODIUM 50 MG/SENNA 8.6 MG TAB PO SCH ×2 (07:57→22:44)
[2016-02-20] MEDS: POLYETHYLENE GLYCOL 17 GM PKG PO SCH (07:57)
[2016-02-20] MEDS: ATORVASTATIN 40 MG TAB PO SCH (07:57)
[2016-02-20] MEDS: ENALAPRIL MALEATE 2.5 MG TAB PO SCH (07:57)
[2016-02-20] MEDS: CARVEDILOL 12.5 MG TAB PO SCH ×2 (07:57→22:44)
[2016-02-20] MEDS: NYSTATIN 100,000 U/GM PWD 15 GM BTL TOPICAL SCH ×2 (07:58→22:45)
[2016-02-20] MEDS: EUCERIN CREAM 120 GM JAR TOPICAL SCH ×2 (07:58→22:45)
[2016-02-20 08:00] VITALS: BP 165/102; PULSE 72; RESP 18; TEMP 97.4; O2SAT 98
--- NOTE | 2016-02-20 08:52 | HHI.PR ---
Subjective Remarks No acute complaints. No change in clinical status. Objective Vitals Vital Signs Date Time Temp Pulse Resp B/P Pulse Ox O2 Delivery O2 Flow Rate FiO2 02/19/16 20:00 97.4 77 18 112/79 97 I/O 02/19/16 02/19/16 02/19/16 02/20/16 02/20/16 02/20/16 07:00 15:00 23:00 07:00 15:00 23:00 Intake Total 0 ml 480 ml Output Total 400 ml 1 ml Balance -400 ml 479 ml Intake Oral 0 ml 480 ml IV Total 0 ml Output Urine Total 400 ml Stool Total 1 ml # Voids 1 2 2 # Bowel Movements 0 0 1 Result Diagram: 02/20/16 0630 Objective Remarks GENERAL: Well-nourished, well-developed male in no apparent distress. SKIN: Warm and dry. Scabbed wound L johnson. CARDIOVASCULAR: Regular rate and rhythm. RESPIRATORY: No accessory muscle use. Clear to auscultation. Breath sounds equal bilaterally. GASTROINTESTINAL: Abdomen soft, non-tender, nondistended. MUSCULOSKELETAL: Foam boot over L heel. Right BKA noted. No right lower extremity swelling. NEUROLOGICAL: Awake and alert. Normal speech. PSYCHIATRIC: Appropriate mood and affect. Procedures None Urinary Catheter: No Vascular Central Line Catheter: No A/P Problem List: (1) Cellulitis ICD Code: L03.90 Status: Resolved (2) Ischemic cardiomyopathy ICD Code: I25.5 Status: Chronic (3) Diabetes mellitus type 2 in obese ICD Code: E11.9 Status: Chronic (4) S/P BKA (below knee amputation) unilateral ICD Code: Z89.519 Status: Chronic (5) Acute metabolic encephalopathy ICD Code: G93.41 Status: Resolved (6) Bacteremia ICD Code: R78.81 Status: Resolved (7) Chronic systolic (congestive) heart failure ICD Code: I50.22 Status: Chronic (8) Venous stasis ulcer of left lower extremity ICD Code: I83.029 Status: Chronic (9) CVA (cerebral vascular accident) ICD Code: I63.9 Status: Chronic (10) Seborrheic dermatitis ICD Code: L21.9 Status: Resolved Assessment and Plan 60-year-old male with admitted 10/14 with acute cortical infarct. Patient remains with significant cognitive deficit. Bilateral cerebrovascular accident, with persistent cognitive defect -MRI showed acute cortical infarct of the right cerebral peduncle to the pelvis , left thalamus punctate area of infarct -Neurology last seen patient on 11/13/15, recommended long-term anticoagulation -Continue with Statin. -Continue Coumadin daily and monitor INR/PT keep INR between 2 and 3, pharmacy consult for dosing; INR 1.5 today. Coumadin dose increased today. -Discharged from PT and OT as he has reached maximum benefit here. -Out of bed with nursing only. Patient was counseled to not get out of bed on his own. Fall risk due to cognitive deficit Ischemic Cardiomyopathy/chronic systolic CHF LVEF 35% on echo 03/2015. Denies shortness of breath. Compensated. -Continue Coreg, Imdur, enalapril. -Could consider AICD if patient is able to consent, however patient is currently unable to consent -Fluid and sodium restrictions, follow volume status. Chronic kidney disease stage 3/4. -Avoid nephrotoxins. -BMP 02/17 with acute worsening with BUN 55 and Cr 2.0, prerenal. BUN/Cr improved today to 51/1.70. Nursing order to encourage by mouth hydration although still keep within 1500 mL/day limit due to CHF. Avoid IVF if possible. Recheck BMP tomorrow. Patient is not on diuretics. left tibial surface- with superficial wound - improving -posterior aspect with erythema avoid pressure Bacitracin bid Bacteremia with Staphylococcus hemolyticus, from wounds. Resolved -Follow blood cultures have been negative since 10/16/15 -Status post Keflex and Cipro management -Infectious disease managed patient Tinea cruris -Nystatin powder twice daily for a week Diabetic mellitus - Glucose was well controlled. All insulin discontinued. -Accu-checks discontinued as patient's blood sugar well controlled and Hgb A1c 6.9. -continue diet control Peripheral arterial disease-stable. -Continue anticoagulation Intermittent agitation- -Psychiatry reevaluated the patient on 02/17 and increased Seroquel to 50 mg in the morning and 100 mg qhs. Constipation: Improved -Abdominal x-ray 02/16 with moderate amount of stool in the colon on the left side; minimally prominent segments of small bowel in the upper abdomen -Milk of magnesia as needed. -MiraLAX, lactulose, Haydee-Colace scheduled daily -One time dose of magnesium citrate and Dulcolax suppository were administered on 02/17. Patient has had 3 BMs in past 48 hours. Monitor. DVT prophylaxis - patient on Coumadin Discharge Planning Have to have accepting SNF in order to get Medicaid, and must have someone to sign him in. Case management following. Problem Qualifiers (1) Cellulitis: (2) S/P BKA (below knee amputation) unilateral: Qualified Code: Z89.511 - S/P BKA (below knee amputation) unilateral, right (3) CVA (cerebral vascular accident): Qualified Code: I63.9 - Cerebrovascular accident (CVA), unspecified mechanism Jennifer Mae Feb 20, 2016 08:52 Trisha Lim MD Feb 21, 2016 06:17
[2016-02-20] MEDS: BETAMETHASONE DIPROPIONATE 0.05% OINT 15 GM TUBE TOP SCH ×2 (09:00→21:00)
[2016-02-20] MEDS ORDERED: WARFARIN SOD 2.5 MG TAB PO ONE (16:00)
[2016-02-20] MEDS: WARFARIN SOD 5 MG TAB PO SCH (17:23)
[2016-02-20 20:00] VITALS: BP 138/88; PULSE 72; RESP 18; TEMP 97.9; O2SAT 98
[2016-02-20] MEDS: ISOSORBIDE MONONITRATE 60 MG TAB PO SCH (22:44)
[2016-02-20] MEDS: QUEtiapine FUMARATE 100 MG TAB PO SCH (22:44)
[2016-02-21] VITALS: BP 101/77; PULSE 68; RESP 18; TEMP 96.2; O2SAT 96
[2016-02-21 07:17] LABS: POTASSIUM 4.4 MEQ/L (3.5-5.1)
[2016-02-21 07:18] LABS: INTERNATIONAL NORMALIZED RATIO 1.4 RATIO; PROTHROMBIN TIME - PATIENT 14.7 SEC (9.8-11.4)
[2016-02-21 07:19] LABS: BICARBONATE 23.6 MEQ/L (21.0-32.0)
[2016-02-21] MEDS: DOCUSATE SODIUM 50 MG/SENNA 8.6 MG TAB PO SCH ×2 (07:52→22:30)
[2016-02-21] MEDS: QUEtiapine FUMARATE 25 MG TAB PO SCH (07:52)
[2016-02-21] MEDS: ENALAPRIL MALEATE 2.5 MG TAB PO SCH (07:52)
[2016-02-21] MEDS: CARVEDILOL 12.5 MG TAB PO SCH ×2 (07:52→22:30)
[2016-02-21] MEDS: ATORVASTATIN 40 MG TAB PO SCH (07:53)
[2016-02-21] MEDS: BACITRACIN TOP OINT 15 GM TUBE TOP SCH ×2 (07:53→14:00)
[2016-02-21] MEDS: LACTULOSE SYRUP 20 GM/30 ML CUP PO SCH (07:53)
[2016-02-21] MEDS: POLYETHYLENE GLYCOL 17 GM PKG PO SCH (07:53)
[2016-02-21] MEDS: BETAMETHASONE DIPROPIONATE 0.05% OINT 15 GM TUBE TOP SCH ×2 (07:54→22:33)
[2016-02-21 08:00] VITALS: BP 105/78; PULSE 67; RESP 19; TEMP 97.6; O2SAT 96
[2016-02-21] MEDS: EUCERIN CREAM 120 GM JAR TOPICAL SCH ×2 (09:00→22:33)
[2016-02-21] MEDS: NYSTATIN 100,000 U/GM PWD 15 GM BTL TOPICAL SCH ×2 (09:00→22:33)
--- NOTE | 2016-02-21 09:50 | HHI.PR ---
Subjective Remarks States he was good until I turned the volume of the tv down. No other complaints. No change in clinical status. Objective Vitals Vital Signs Date Time Temp Pulse Resp B/P Pulse Ox O2 Delivery O2 Flow Rate FiO2 02/21/16 08:00 97.6 67 19 105/78 96 02/21/16 00:00 96.2 68 18 101/77 96 02/20/16 20:00 97.9 72 18 138/88 98 I/O 02/20/16 02/20/16 02/20/16 02/21/16 02/21/16 02/21/16 06:59 14:59 22:59 06:59 14:59 22:59 Intake Total 600 ml Output Total 550 ml Balance 50 ml Intake Oral 600 ml Output Urine Total 550 ml # Voids 2 # Bowel Movements 1 0 Result Diagram: 02/21/16 0600 Objective Remarks GENERAL: Well-nourished, well-developed male in no apparent distress. SKIN: Warm and dry. CARDIOVASCULAR: Regular rate and rhythm. RESPIRATORY: Limited anterior exam. No accessory muscle use. Clear to auscultation. Breath sounds equal bilaterally. GASTROINTESTINAL: Abdomen soft, non-tender, nondistended. MUSCULOSKELETAL: Foam boot over L heel. Right BKA noted. No lower extremity swelling. NEUROLOGICAL: Awake and alert. Normal speech. PSYCHIATRIC: Appropriate mood and affect. Procedures None Urinary Catheter: No Vascular Central Line Catheter: No A/P Problem List: (1) Cellulitis ICD Code: L03.90 Status: Resolved (2) Ischemic cardiomyopathy ICD Code: I25.5 Status: Chronic (3) Diabetes mellitus type 2 in obese ICD Code: E11.9 Status: Chronic (4) S/P BKA (below knee amputation) unilateral ICD Code: Z89.519 Status: Chronic (5) Acute metabolic encephalopathy ICD Code: G93.41 Status: Resolved (6) Bacteremia ICD Code: R78.81 Status: Resolved (7) Chronic systolic (congestive) heart failure ICD Code: I50.22 Status: Chronic (8) Venous stasis ulcer of left lower extremity ICD Code: I83.029 Status: Chronic (9) CVA (cerebral vascular accident) ICD Code: I63.9 Status: Chronic (10) Seborrheic dermatitis ICD Code: L21.9 Status: Resolved Assessment and Plan 60-year-old male with admitted 10/14 with acute cortical infarct. Patient remains with significant cognitive deficit. Bilateral cerebrovascular accident, with persistent cognitive defect -MRI showed acute cortical infarct of the right cerebral peduncle to the pelvis , left thalamus punctate area of infarct -Neurology last seen patient on 11/13/15, recommended long-term anticoagulation -Continue with Statin. -Continue 5 mg Coumadin daily and monitor INR/PT keep INR between 2 and 3. INR still low at 1.4 today s/p extra 2.5 mg dose administered yesterday. Pharmacy dosing coumadin. -Discharged from PT and OT as he has reached maximum benefit here. -Out of bed with nursing only. Patient was counseled to not get out of bed on his own. Fall risk due to cognitive deficit Ischemic Cardiomyopathy/chronic systolic CHF LVEF 35% on echo 03/2015. Denies shortness of breath. Compensated. -Continue Coreg, Imdur, enalapril. -Could consider AICD if patient is able to consent, however patient is currently unable to consent -Fluid and sodium restrictions, follow volume status. Chronic kidney disease stage 3/4. -Avoid nephrotoxins. -BMP 02/17 with acute worsening with BUN 55 and Cr 2.0, prerenal. BUN/Cr continuing to improve at 41/1.60 today. Nursing order to encourage by mouth hydration although still keep within 1500 mL/day limit due to CHF. Avoid IVF if possible. Patient is not on diuretics. left tibial surface- with superficial wound - improving -posterior aspect with erythema avoid pressure Bacitracin bid Bacteremia with Staphylococcus hemolyticus, from wounds. Resolved -Follow blood cultures have been negative since 10/16/15 -Status post Keflex and Cipro management -Infectious disease managed patient Tinea cruris -Nystatin powder twice daily for a week Diabetic mellitus - Glucose was well controlled. All insulin discontinued. -Accu-checks discontinued as patient's blood sugar well controlled and Hgb A1c 6.9. -continue diet control Peripheral arterial disease-stable. -Continue anticoagulation Intermittent agitation- -Psychiatry reevaluated the patient on 02/17 and increased Seroquel to 50 mg in the morning and 100 mg qhs. Constipation: Improved -Abdominal x-ray 02/16 with moderate amount of stool in the colon on the left side; minimally prominent segments of small bowel in the upper abdomen -Milk of magnesia as needed. -MiraLAX, lactulose, Haydee-Colace scheduled daily -One time dose of magnesium citrate and Dulcolax suppository were administered on 02/17 with 3 BMs following. Continue to monitor for recurrence. DVT prophylaxis -patient on Coumadin Discharge Planning Have to have accepting SNF in order to get Medicaid, and must have someone to sign him in. Case management following. Problem Qualifiers (1) Cellulitis: (2) S/P BKA (below knee amputation) unilateral: Qualified Code: Z89.511 - S/P BKA (below knee amputation) unilateral, right (3) CVA (cerebral vascular accident): Qualified Code: I63.9 - Cerebrovascular accident (CVA), unspecified mechanism Jennifer Mae Feb 21, 2016 09:50
[2016-02-21] MEDS: WARFARIN SOD 5 MG TAB PO SCH (14:39)
[2016-02-21] MEDS ORDERED: WARFARIN SOD 4 MG TAB PO ONE (16:00)
[2016-02-21 20:00] VITALS: BP 105/75; PULSE 81; RESP 18; TEMP 97.8; O2SAT 98
[2016-02-21] MEDS: ISOSORBIDE MONONITRATE 60 MG TAB PO SCH (22:30)
[2016-02-21] MEDS: QUEtiapine FUMARATE 100 MG TAB PO SCH (22:30)
[2016-02-22 07:00] LABS: INTERNATIONAL NORMALIZED RATIO 1.9 RATIO; PROTHROMBIN TIME - PATIENT 20.1 SEC (9.8-11.4)
[2016-02-22 08:25] VITALS: BP 125/81; PULSE 79; RESP 18; TEMP 98; O2SAT 98
[2016-02-22] MEDS: CARVEDILOL 12.5 MG TAB PO SCH ×2 (08:25→21:18)
[2016-02-22] MEDS: ENALAPRIL MALEATE 2.5 MG TAB PO SCH (08:25)
[2016-02-22] MEDS: ATORVASTATIN 40 MG TAB PO SCH (08:25)
[2016-02-22] MEDS: DOCUSATE SODIUM 50 MG/SENNA 8.6 MG TAB PO SCH ×2 (08:25→21:18)
[2016-02-22] MEDS: POLYETHYLENE GLYCOL 17 GM PKG PO SCH (08:25)
[2016-02-22] MEDS: EUCERIN CREAM 120 GM JAR TOPICAL SCH ×2 (08:26→21:21)
[2016-02-22] MEDS: NYSTATIN 100,000 U/GM PWD 15 GM BTL TOPICAL SCH ×2 (08:27→21:21)
[2016-02-22] MEDS: LACTULOSE SYRUP 20 GM/30 ML CUP PO SCH (08:39)
--- NOTE | 2016-02-22 10:25 | HHI.PR ---
Subjective Remarks No acute complaints. No change in clinical status. Objective Vitals Vital Signs Date Time Temp Pulse Resp B/P Pulse Ox O2 Delivery O2 Flow Rate FiO2 02/22/16 08:25 98.0 79 18 125/81 98 02/21/16 20:00 97.8 81 18 105/75 98 I/O 02/21/16 02/21/16 02/21/16 02/22/16 02/22/16 02/22/16 07:00 15:00 23:00 07:00 15:00 23:00 Intake Total 960 ml Output Total 600 ml 800 ml 850 ml Balance -600 ml 160 ml -850 ml Intake Oral 960 ml Output Urine Total 600 ml 800 ml 850 ml # Bowel Movements 0 Result Diagram: 02/21/16 0600 Objective Remarks GENERAL: Well-nourished, well-developed male in no apparent distress. SKIN: Warm and dry. CARDIOVASCULAR: Regular rate and rhythm. RESPIRATORY: Limited anterior exam. No accessory muscle use. Clear to auscultation. Breath sounds equal bilaterally. GASTROINTESTINAL: Abdomen soft, non-tender, nondistended. MUSCULOSKELETAL: Right BKA noted. No left lower extremity swelling. NEUROLOGICAL: Awake and alert. Normal speech. PSYCHIATRIC: Appropriate mood and affect. Procedures None Urinary Catheter: No Vascular Central Line Catheter: No A/P Problem List: (1) Cellulitis ICD Code: L03.90 Status: Resolved (2) Ischemic cardiomyopathy ICD Code: I25.5 Status: Chronic (3) Diabetes mellitus type 2 in obese ICD Code: E11.9 Status: Chronic (4) S/P BKA (below knee amputation) unilateral ICD Code: Z89.519 Status: Chronic (5) Acute metabolic encephalopathy ICD Code: G93.41 Status: Resolved (6) Bacteremia ICD Code: R78.81 Status: Resolved (7) Chronic systolic (congestive) heart failure ICD Code: I50.22 Status: Chronic (8) Venous stasis ulcer of left lower extremity ICD Code: I83.029 Status: Chronic (9) CVA (cerebral vascular accident) ICD Code: I63.9 Status: Chronic (10) Seborrheic dermatitis ICD Code: L21.9 Status: Resolved Assessment and Plan 60-year-old male with admitted 10/14 with acute cortical infarct. Patient remains with significant cognitive deficit. Bilateral cerebrovascular accident, with persistent cognitive defect -MRI showed acute cortical infarct of the right cerebral peduncle to the pelvis , left thalamus punctate area of infarct -Neurology last seen patient on 11/13/15, recommended long-term anticoagulation -Continue with Statin. -Continue Coumadin daily and monitor INR/PT keep INR between 2 and 3. INR improved to 1.9 today. Pharmacy dosing Coumadin. -Discharged from PT and OT as he has reached maximum benefit here. -Out of bed with nursing only. Patient was counseled to not get out of bed on his own. Fall risk due to cognitive deficit Ischemic Cardiomyopathy/chronic systolic CHF LVEF 35% on echo 03/2015. Denies shortness of breath. Compensated. -Continue Coreg, Imdur, enalapril. -Could consider AICD if patient is able to consent, however patient is currently unable to consent -Fluid and sodium restrictions, follow volume status. Chronic kidney disease stage 3/4. -Avoid nephrotoxins. -BMP 02/17 with acute worsening with BUN 55 and Cr 2.0, prerenal. BUN/Cr 02/20 at 41/1.60, likely baseline. Encourage by mouth hydration although still keep within 1500 mL/day limit due to CHF. left tibial surface- with superficial wound - improving -posterior aspect with erythema avoid pressure Bacitracin bid Bacteremia with Staphylococcus hemolyticus, from wounds. Resolved -Follow blood cultures have been negative since 10/16/15 -Status post Keflex and Cipro management -Infectious disease managed patient Tinea cruris -Nystatin powder twice daily for a week Diabetic mellitus - Glucose was well controlled. All insulin discontinued. -Accu-checks discontinued as patient's blood sugar well controlled and Hgb A1c 6.9. -continue diet control Peripheral arterial disease-stable. -Continue anticoagulation Intermittent agitation- -Psychiatry reevaluated the patient on 02/17 and increased Seroquel to 50 mg in the morning and 100 mg qhs. Constipation: Improved -Abdominal x-ray 02/16 with moderate amount of stool in the colon on the left side; minimally prominent segments of small bowel in the upper abdomen -MiraLAX and Haydee-Colace scheduled daily. Refusing scheduled Lactulose. -Milk of magnesia as needed. -One time dose of magnesium citrate and Dulcolax suppository were administered on 02/17 with 3 BMs following. -No BMs in the past 2 days. Will add Dulcolax suppository prn. DVT prophylaxis -patient on Coumadin Discharge Planning Have to have accepting SNF in order to get Medicaid, and must have someone to sign him in. Case management following. Problem Qualifiers (1) Cellulitis: (2) S/P BKA (below knee amputation) unilateral: Qualified Code: Z89.511 - S/P BKA (below knee amputation) unilateral, right (3) CVA (cerebral vascular accident): Qualified Code: I63.9 - Cerebrovascular accident (CVA), unspecified mechanism Jennifer Mae Feb 22, 2016 10:25
[2016-02-22] MEDS ORDERED: MAGNESIUM HYDROXIDE SUSP 30 ML CUP PO PRN (10:30)
[2016-02-22] MEDS: BETAMETHASONE DIPROPIONATE 0.05% OINT 15 GM TUBE TOP SCH ×2 (11:44→21:21)
[2016-02-22] MEDS: QUEtiapine FUMARATE 25 MG TAB PO SCH (11:44)
[2016-02-22] MEDS: BACITRACIN TOP OINT 15 GM TUBE TOP SCH ×2 (14:52→21:21)
[2016-02-22] MEDS: WARFARIN SOD 5 MG TAB PO SCH (16:00)
[2016-02-22 20:00] VITALS: BP 125/71; PULSE 78; RESP 20; TEMP 97.1; O2SAT 100
[2016-02-22] MEDS: ISOSORBIDE MONONITRATE 60 MG TAB PO SCH (21:18)
[2016-02-22] MEDS: QUEtiapine FUMARATE 100 MG TAB PO SCH (21:18)
[2016-02-23] MEDS: BACITRACIN TOP OINT 15 GM TUBE TOP SCH ×3 (06:08→23:00)
[2016-02-23 06:50] LABS: INTERNATIONAL NORMALIZED RATIO 2.4 RATIO; PROTHROMBIN TIME - PATIENT 26.6 SEC (9.8-11.4)
--- NOTE | 2016-02-23 08:37 | HHI.PR ---
Subjective Remarks Patient seen and examined today. Patient denies any new complaints. No change in clinical status. Objective Vitals Vital Signs Date Time Temp Pulse Resp B/P Pulse Ox O2 Delivery O2 Flow Rate FiO2 02/22/16 20:00 97.1 78 20 125/71 100 I/O 02/22/16 02/22/16 02/22/16 02/23/16 02/23/16 02/23/16 06:59 14:59 22:59 06:59 14:59 22:59 Intake Total 480 ml Output Total 850 ml 325 ml Balance -850 ml 480 ml -325 ml Intake Oral 480 ml Output Urine Total 850 ml 325 ml # Voids 3 # Bowel Movements 0 Result Diagram: 02/21/16 0600 Objective Remarks GENERAL: Well-developed, well-nourished, in no acute distress. alert and orientated to person HEENT: Head is normocephalic without any lesions or masses noted. Facial features are symmetric. Eyes: Pupils equal round reactive to light. Extraocular muscles are intact. Conjunctivae were clear. NECK: Supple without any masses. Trachea midline no deviation. No JVD, CARDIAC: Regular rhythm, regular rate. S1/S2 are heard. No murmurs gallops or rubs. LUNGS: Clear to auscultation bilaterally. No wheeze, rhonchi or rales. No use of accessory muscles on inspiration or expiration. ABDOMEN: Soft, nontender. Nondistended. Bowel sounds heard in all 4 quadrants. No organomegaly or masses. Negative rebound, negative guarding. Patient has erythema in inguinal folds EXTREMITIES: No edema, pulses are equal bilaterally. No cyanosis or clubbing. Right [id number]-[id number] amputation. Left foot and Multi-Podus boot, patient does have multiple skin tears, dry skin flaking off. NEUROLOGY: Mood and affect appear appropriate. Cranial nerves II through XII grossly intact. Moving all extremities, speech is clear Procedures None Urinary Catheter: No Vascular Central Line Catheter: No A/P Assessment and Plan 60-year-old male with admitted 10/14 with acute cortical infarct. Patient remains with significant cognitive deficit. Bilateral cerebrovascular accident, with persistent cognitive defect -MRI showed acute cortical infarct of the right cerebral peduncle to the pelvis , left thalamus punctate area of infarct -Neurology last seen patient on 11/13/15, recommended long-term anticoagulation -Continue with Statin. -Continue Coumadin 5 mg daily and monitor INR/PT keep INR between 2 and 3, pharmacy consult for dosing. INR today 2.4 -Discharged from PT and OT as he has reached maximum benefit here. -Out of bed with nursing only. Patient was counseled to not get out of bed on his own. Fall risk due to cognitive deficit Ischemic Cardiomyopathy/chronic systolic CHF LVEF 35% on echo 03/2015. Denies shortness of breath. Compensated. -Continue Coreg, Imdur, enalapril. -Could consider AICD if patient is able to consent, however patient is currently unable to consent -Fluid and sodium restrictions, follow volume status. 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 -Avoid nephrotoxins. -Monitor BMP intermittently left tibial surface- with superficial wound - improving -posterior aspect with erythema avoid pressure Bacitracin bid Bacteremia with Staphylococcus hemolyticus, from wounds. Resolved -Follow blood cultures have been negative since 10/16/15 -Status post Keflex and Cipro management -Infectious disease managed patient Tinea cruris -Nystatin powder twice daily for a week Diabetic mellitus - Glucose was well controlled. All insulin discontinued. -accu-checks discontinued as patient's blood sugar well controlled and Hgb A1c 6.9. -continue diet control Peripheral arterial disease-stable. -Continue anticoagulation Intermittent agitation- -Continue Seroquel 50 mg in the morning and 100 mg at night -Psychiatry reevaluated the patient on 02/17 Constipation, no documented bowel movement in 3 days -Abdominal x-ray 02/16 indicates moderate amount of stool in the colon on the left side. -Milk of magnesia as needed. -MiraLAX, lactulose, Haydee-Colace daily. Patient refusing lactulose, MiraLAX -Dulcolax as needed DVT prophylaxis - patient on Coumadin Discharge Planning Case management arranging discharge planning to longterm facility once a finding facility that'll accept the patient/insurance. Has accepting SNF in order to get Medicaid, and must have someone to sign him in. Case management following. Truman Fulton Feb 23, 2016 08:37
[2016-02-23] MEDS: QUEtiapine FUMARATE 25 MG TAB PO SCH (09:00)
[2016-02-23] MEDS: BETAMETHASONE DIPROPIONATE 0.05% OINT 15 GM TUBE TOP SCH ×2 (09:00→23:07)
[2016-02-23 10:08] VITALS: BP 110/91; PULSE 78; RESP 17; TEMP 98.2; O2SAT 96
[2016-02-23] MEDS: POLYETHYLENE GLYCOL 17 GM PKG PO SCH (10:40)
[2016-02-23] MEDS: LACTULOSE SYRUP 20 GM/30 ML CUP PO SCH (10:41)
[2016-02-23] MEDS: ATORVASTATIN 40 MG TAB PO SCH (10:41)
[2016-02-23] MEDS: ENALAPRIL MALEATE 2.5 MG TAB PO SCH (10:41)
[2016-02-23] MEDS: CARVEDILOL 12.5 MG TAB PO SCH ×2 (10:41→22:59)
[2016-02-23] MEDS: DOCUSATE SODIUM 50 MG/SENNA 8.6 MG TAB PO SCH ×2 (10:41→22:59)
[2016-02-23] MEDS: EUCERIN CREAM 120 GM JAR TOPICAL SCH ×2 (10:43→23:06)
[2016-02-23] MEDS: NYSTATIN 100,000 U/GM PWD 15 GM BTL TOPICAL SCH ×2 (10:43→23:12)
[2016-02-23] MEDS: WARFARIN SOD 5 MG TAB PO SCH (16:00)
[2016-02-23 20:00] VITALS: BP 134/82; PULSE 77; RESP 20; TEMP 96.9; O2SAT 98
[2016-02-23] MEDS: ISOSORBIDE MONONITRATE 60 MG TAB PO SCH (22:59)
[2016-02-23] MEDS: QUEtiapine FUMARATE 100 MG TAB PO SCH (22:59)
[2016-02-24] MEDS: BACITRACIN TOP OINT 15 GM TUBE TOP SCH ×3 (05:39→20:40)
[2016-02-24 08:44] LABS: INTERNATIONAL NORMALIZED RATIO 2.4 RATIO; PROTHROMBIN TIME - PATIENT 26.8 SEC (9.8-11.4)
[2016-02-24] MEDS: EUCERIN CREAM 120 GM JAR TOPICAL SCH ×2 (09:00→20:40)
[2016-02-24] MEDS: LACTULOSE SYRUP 20 GM/30 ML CUP PO SCH ×2 (09:00→12:30)
[2016-02-24] MEDS: QUEtiapine FUMARATE 25 MG TAB PO SCH (09:00)
[2016-02-24] MEDS: POLYETHYLENE GLYCOL 17 GM PKG PO SCH (09:00)
[2016-02-24] MEDS: ATORVASTATIN 40 MG TAB PO SCH ×2 (09:00→12:31)
[2016-02-24] MEDS: BETAMETHASONE DIPROPIONATE 0.05% OINT 15 GM TUBE TOP SCH ×2 (09:00→20:41)
[2016-02-24] MEDS: CARVEDILOL 12.5 MG TAB PO SCH ×3 (09:00→20:37)
[2016-02-24] MEDS: ENALAPRIL MALEATE 2.5 MG TAB PO SCH ×2 (09:00→12:30)
[2016-02-24] MEDS: DOCUSATE SODIUM 50 MG/SENNA 8.6 MG TAB PO SCH ×3 (09:00→20:37)
[2016-02-24] MEDS: NYSTATIN 100,000 U/GM PWD 15 GM BTL TOPICAL SCH (09:00)
--- NOTE | 2016-02-24 09:04 | HHI.PR ---
Subjective Remarks Patient seen and examined today. Patient denies any new complaints. No change in clinical status. Objective Vitals Vital Signs Date Time Temp Pulse Resp B/P Pulse Ox O2 Delivery O2 Flow Rate FiO2 02/23/16 20:00 96.9 77 20 134/82 98 02/23/16 10:08 98.2 78 17 110/91 96 I/O 02/23/16 02/23/16 02/23/16 02/24/16 02/24/16 02/24/16 07:00 15:00 23:00 07:00 15:00 23:00 Intake Total 240 ml 120 ml Output Total 325 ml 600 ml Balance -325 ml 240 ml -480 ml Intake Oral 240 ml 120 ml Output Urine Total 325 ml 600 ml # Voids 3 3 # Bowel Movements 0 0 0 Result Diagram: 02/21/16 0600 Objective Remarks GENERAL: Well-developed, well-nourished, in no acute distress. alert and orientated to person HEENT: Head is normocephalic without any lesions or masses noted. Facial features are symmetric. Eyes: Pupils equal round reactive to light. Extraocular muscles are intact. Conjunctivae were clear. NECK: Supple without any masses. Trachea midline no deviation. No JVD, CARDIAC: Regular rhythm, regular rate. S1/S2 are heard. No murmurs gallops or rubs. LUNGS: Clear to auscultation bilaterally. No wheeze, rhonchi or rales. No use of accessory muscles on inspiration or expiration. ABDOMEN: Soft, nontender. Nondistended. Bowel sounds heard in all 4 quadrants. No organomegaly or masses. Negative rebound, negative guarding. Patient has erythema in inguinal folds EXTREMITIES: No edema, pulses are equal bilaterally. No cyanosis or clubbing. Right [id number]-[id number] amputation. Left foot and Multi-Podus boot, patient does have multiple skin tears, dry skin flaking off. NEUROLOGY: Mood and affect appear appropriate. Cranial nerves II through XII grossly intact. Moving all extremities, speech is clear Procedures None Urinary Catheter: No Vascular Central Line Catheter: No A/P Assessment and Plan 60-year-old male with admitted 10/14 with acute cortical infarct. Patient remains with significant cognitive deficit. Bilateral cerebrovascular accident, with persistent cognitive defect -MRI showed acute cortical infarct of the right cerebral peduncle to the pelvis , left thalamus punctate area of infarct -Neurology last seen patient on 11/13/15, recommended long-term anticoagulation -Continue with Statin. -Continue Coumadin 5 mg daily and monitor INR/PT keep INR between 2 and 3, pharmacy consult for dosing. INR today 2.4 -Discharged from PT and OT as he has reached maximum benefit here. -Out of bed with nursing only. Patient was counseled to not get out of bed on his own. Fall risk due to cognitive deficit Ischemic Cardiomyopathy/chronic systolic CHF LVEF 35% on echo 03/2015. Denies shortness of breath. Compensated. -Continue Coreg, Imdur, enalapril. -Could consider AICD if patient is able to consent, however patient is currently unable to consent -Fluid and sodium restrictions, follow volume status. 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 -Avoid nephrotoxins. -Monitor BMP intermittently left tibial surface- with superficial wound - improving -posterior aspect with erythema avoid pressure Bacitracin bid Bacteremia with Staphylococcus hemolyticus, from wounds. Resolved -Follow blood cultures have been negative since 10/16/15 -Status post Keflex and Cipro management -Infectious disease managed patient Tinea cruris -Nystatin powder twice daily for a week Diabetic mellitus - Glucose was well controlled. All insulin discontinued. -accu-checks discontinued as patient's blood sugar well controlled and Hgb A1c 6.9. -continue diet control Peripheral arterial disease-stable. -Continue anticoagulation Intermittent agitation- -Continue Seroquel 50 mg in the morning and 100 mg at night -Psychiatry reevaluated the patient on 02/17 Constipation, no documented bowel movement in 4 days -Abdominal x-ray 02/16 indicates moderate amount of stool in the colon on the left side. -Milk of magnesia as needed. -MiraLAX, lactulose, Haydee-Colace daily, lactulose, MiraLAX -Dulcolax as needed DVT prophylaxis - patient on Coumadin Discharge Planning Case management arranging discharge planning to shelter facility once a finding facility that'll accept the patient/insurance. Has accepting SNF in order to get Medicaid, and must have someone to sign him in. Case management following. Truman Fulton Feb 24, 2016 09:04
[2016-02-24 14:08] VITALS: BP 142/91; PULSE 84; RESP 17; TEMP 98.5; O2SAT 98
[2016-02-24] MEDS: WARFARIN SOD 5 MG TAB PO SCH (16:00)
[2016-02-24] MEDS: QUEtiapine FUMARATE 100 MG TAB PO SCH (20:37)
[2016-02-24] MEDS: ISOSORBIDE MONONITRATE 60 MG TAB PO SCH (20:37)
[2016-02-25 00:26] VITALS: BP 132/57; PULSE 64; RESP 24; TEMP 96.5; O2SAT 96
[2016-02-25 04:00] VITALS: BP 132/57; PULSE 64; RESP 24; TEMP 96.5; O2SAT 96
[2016-02-25] MEDS: BACITRACIN TOP OINT 15 GM TUBE TOP SCH ×3 (05:23→21:26)
[2016-02-25 08:00] VITALS: BP 139/87; PULSE 73; RESP 16; TEMP 97.1; O2SAT 100
[2016-02-25] MEDS: DOCUSATE SODIUM 50 MG/SENNA 8.6 MG TAB PO SCH ×2 (08:42→21:25)
[2016-02-25] MEDS: LACTULOSE SYRUP 20 GM/30 ML CUP PO SCH (08:42)
[2016-02-25] MEDS: ENALAPRIL MALEATE 2.5 MG TAB PO SCH (08:43)
[2016-02-25] MEDS: CARVEDILOL 12.5 MG TAB PO SCH ×2 (08:43→21:00)
[2016-02-25] MEDS: ATORVASTATIN 40 MG TAB PO SCH (08:43)
[2016-02-25] MEDS: POLYETHYLENE GLYCOL 17 GM PKG PO SCH (08:43)
[2016-02-25] MEDS: EUCERIN CREAM 120 GM JAR TOPICAL SCH ×2 (09:00→21:26)
[2016-02-25] MEDS: BETAMETHASONE DIPROPIONATE 0.05% OINT 15 GM TUBE TOP SCH ×2 (09:00→21:26)
[2016-02-25] MEDS: QUEtiapine FUMARATE 25 MG TAB PO SCH (09:00)
--- NOTE | 2016-02-25 09:19 | HHI.PR ---
Subjective Remarks Patient seen and examined today. Patient denies any new complaints. Patient states he had a bowel movement yesterday. Nursing staff indicates that patient has been pocketing his medications in volume at the wall. She indicates that he spit his pills at her yesterday. Nursing also indicates the patient has not had a bowel movement. Objective Vitals Vital Signs Date Time Temp Pulse Resp B/P Pulse Ox O2 Delivery O2 Flow Rate FiO2 02/25/16 08:00 97.1 73 16 139/87 100 02/25/16 04:00 96.5 64 24 132/57 96 02/25/16 00:26 96.5 64 24 132/57 96 02/24/16 14:08 98.5 84 17 142/91 98 I/O 02/24/16 02/24/16 02/24/16 02/25/16 02/25/16 02/25/16 07:00 15:00 23:00 07:00 15:00 23:00 Intake Total 120 ml 700 ml 120 ml Output Total 600 ml 1100 ml 275 ml Balance -480 ml -400 ml -155 ml Intake Oral 120 ml 700 ml 120 ml Output Urine Total 600 ml 1100 ml 275 ml # Bowel Movements 0 Result Diagram: 02/21/16 0600 Objective Remarks GENERAL: Well-developed, well-nourished, in no acute distress. alert and orientated to person HEENT: Head is normocephalic without any lesions or masses noted. Facial features are symmetric. Eyes: Pupils equal round reactive to light. Extraocular muscles are intact. Conjunctivae were clear. NECK: Supple without any masses. Trachea midline no deviation. No JVD, CARDIAC: Regular rhythm, regular rate. S1/S2 are heard. No murmurs gallops or rubs. LUNGS: Clear to auscultation bilaterally. No wheeze, rhonchi or rales. No use of accessory muscles on inspiration or expiration. ABDOMEN: Soft, nontender. Nondistended. Bowel sounds heard in all 4 quadrants. No organomegaly or masses. Negative rebound, negative guarding. Patient has erythema in inguinal folds EXTREMITIES: No edema, pulses are equal bilaterally. No cyanosis or clubbing. Right xcwyd-[id number] amputation. Left foot and Multi-Podus boot, patient does have multiple skin tears, dry skin flaking off. NEUROLOGY: Mood and affect appear appropriate. Cranial nerves II through XII grossly intact. Moving all extremities, speech is clear Procedures None Urinary Catheter: No Vascular Central Line Catheter: No A/P Assessment and Plan 60-year-old male with admitted 10/14 with acute cortical infarct. Patient remains with significant cognitive deficit. Bilateral cerebrovascular accident, with persistent cognitive defect -MRI showed acute cortical infarct of the right cerebral peduncle to the pelvis , left thalamus punctate area of infarct -Neurology last seen patient on 11/13/15, recommended long-term anticoagulation -Continue with Statin. -Continue Coumadin 5 mg daily and monitor INR/PT keep INR between 2 and 3, pharmacy consult for dosing. INR 2.4 -Discharged from PT and OT as he has reached maximum benefit here. -Out of bed with nursing only. Patient was counseled to not get out of bed on his own. Fall risk due to cognitive deficit Ischemic Cardiomyopathy/chronic systolic CHF LVEF 35% on echo 03/2015. Denies shortness of breath. Compensated. -Continue Coreg, Imdur, enalapril. -Could consider AICD if patient is able to consent, however patient is currently unable to consent -Fluid and sodium restrictions, follow volume status. 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 -Avoid nephrotoxins. -Monitor BMP intermittently left tibial surface- with superficial wound - improving -posterior aspect with erythema avoid pressure Bacitracin bid Bacteremia with Staphylococcus hemolyticus, from wounds. Resolved -Follow blood cultures have been negative since 10/16/15 -Status post Keflex and Cipro management -Infectious disease managed patient Tinea cruris -Nystatin powder twice daily for a week Diabetic mellitus - Glucose was well controlled. All insulin discontinued. -accu-checks discontinued as patient's blood sugar well controlled and Hgb A1c 6.9. -continue diet control Peripheral arterial disease-stable. -Continue anticoagulation Intermittent agitation- -Continue Seroquel 50 mg in the morning and 100 mg at night -Psychiatry reevaluated the patient on 02/17 Constipation, no documented bowel movement in 5 days -Abdominal x-ray 02/16 indicates moderate amount of stool in the colon on the left side. -Milk of magnesia as needed. -MiraLAX, lactulose, Haydee-Colace daily, lactulose, MiraLAX -Dulcolax as needed DVT prophylaxis - patient on Coumadin Discharge Planning Case management arranging discharge planning to group home facility once a finding facility that'll accept the patient/insurance. Has accepting SNF in order to get Medicaid, and must have someone to sign him in. Case management following. 02/23 Pt remains in the hospital due to lack of accepting facility. Although pt has [facility] Medicaid for discharge plans, there is no SNF benefit, thus pt will have to be accepted [facility] pending. CM discussed pt with Codey Rich CM who is complex facilities planner. He is currently working on placement. CM following. Truman Fulton Feb 25, 2016 09:19
[2016-02-25] MEDS: WARFARIN SOD 5 MG TAB PO SCH (17:52)
[2016-02-25 20:00] VITALS: BP 102/62; PULSE 79; RESP 20; TEMP 98.2; O2SAT 99
[2016-02-25] MEDS: QUEtiapine FUMARATE 100 MG TAB PO SCH (21:25)
[2016-02-25] MEDS: ISOSORBIDE MONONITRATE 60 MG TAB PO SCH (21:26)
[2016-02-26] MEDS: BACITRACIN TOP OINT 15 GM TUBE TOP SCH ×3 (05:26→22:00)
[2016-02-26 08:00] VITALS: BP 120/69; PULSE 75; RESP 18; TEMP 96.9; O2SAT 96
[2016-02-26] MEDS: LACTULOSE SYRUP 20 GM/30 ML CUP PO SCH (08:50)
[2016-02-26] MEDS: POLYETHYLENE GLYCOL 17 GM PKG PO SCH (08:50)
[2016-02-26] MEDS: DOCUSATE SODIUM 50 MG/SENNA 8.6 MG TAB PO SCH ×2 (08:51→21:55)
[2016-02-26] MEDS: CARVEDILOL 12.5 MG TAB PO SCH ×2 (08:51→21:55)
[2016-02-26] MEDS: ATORVASTATIN 40 MG TAB PO SCH (08:51)
[2016-02-26] MEDS: ENALAPRIL MALEATE 2.5 MG TAB PO SCH (08:51)
[2016-02-26] MEDS: QUEtiapine FUMARATE 25 MG TAB PO SCH (08:51)
[2016-02-26] MEDS: EUCERIN CREAM 120 GM JAR TOPICAL SCH ×2 (09:01→21:56)
[2016-02-26] MEDS: BETAMETHASONE DIPROPIONATE 0.05% OINT 15 GM TUBE TOP SCH ×2 (09:01→21:55)
--- NOTE | 2016-02-26 09:15 | HHI.PR ---
Subjective Remarks Patient seen and examined today. Patient denies any new complaints. No change in clinical status. Objective Vitals Vital Signs Date Time Temp Pulse Resp B/P Pulse Ox O2 Delivery O2 Flow Rate FiO2 02/25/16 20:00 98.2 79 20 102/62 99 I/O 02/25/16 02/25/16 02/25/16 02/26/16 02/26/16 02/26/16 07:00 15:00 23:00 07:00 15:00 23:00 Intake Total 120 ml 660 ml 330 ml 60 ml Output Total 275 ml 750 ml 575 ml Balance -155 ml -90 ml -245 ml 60 ml Intake Oral 120 ml 660 ml 330 ml 60 ml Output Urine Total 275 ml 750 ml 575 ml # Voids 2 1 # Bowel Movements 1 0 Objective Remarks GENERAL: Well-developed, well-nourished, in no acute distress. alert and orientated to person HEENT: Head is normocephalic without any lesions or masses noted. Facial features are symmetric. Eyes: Pupils equal round reactive to light. Extraocular muscles are intact. Conjunctivae were clear. NECK: Supple without any masses. Trachea midline no deviation. No JVD, CARDIAC: Regular rhythm, regular rate. S1/S2 are heard. No murmurs gallops or rubs. LUNGS: Clear to auscultation bilaterally. No wheeze, rhonchi or rales. No use of accessory muscles on inspiration or expiration. ABDOMEN: Soft, nontender. Nondistended. Bowel sounds heard in all 4 quadrants. No organomegaly or masses. Negative rebound, negative guarding. Patient has erythema in inguinal folds EXTREMITIES: No edema, pulses are equal bilaterally. No cyanosis or clubbing. Right [id number]-[id number] amputation. Left foot and Multi-Podus boot, patient does have multiple skin tears, dry skin flaking off. NEUROLOGY: Mood and affect appear appropriate. Cranial nerves II through XII grossly intact. Moving all extremities, speech is clear Procedures None Urinary Catheter: No Vascular Central Line Catheter: No A/P Assessment and Plan 60-year-old male with admitted 10/14 with acute cortical infarct. Patient remains with significant cognitive deficit. Bilateral cerebrovascular accident, with persistent cognitive defect -MRI showed acute cortical infarct of the right cerebral peduncle to the pelvis , left thalamus punctate area of infarct -Neurology last seen patient on 11/13/15, recommended long-term anticoagulation -Continue with Statin. -Continue Coumadin 5 mg daily and monitor INR/PT keep INR between 2 and 3, pharmacy consult for dosing. INR 2.4 -Discharged from PT and OT as he has reached maximum benefit here. -Out of bed with nursing only. Patient was counseled to not get out of bed on his own. Fall risk due to cognitive deficit Ischemic Cardiomyopathy/chronic systolic CHF LVEF 35% on echo 03/2015. Denies shortness of breath. Compensated. -Continue Coreg, Imdur, enalapril. -Could consider AICD if patient is able to consent, however patient is currently unable to consent -Fluid and sodium restrictions, follow volume status. 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 -Avoid nephrotoxins. -Monitor BMP intermittently left tibial surface- with superficial wound - improving -posterior aspect with erythema avoid pressure Bacitracin bid Bacteremia with Staphylococcus hemolyticus, from wounds. Resolved -Follow blood cultures have been negative since 10/16/15 -Status post Keflex and Cipro management -Infectious disease managed patient Tinea cruris -Nystatin powder twice daily for a week Diabetic mellitus - Glucose was well controlled. All insulin discontinued. -accu-checks discontinued as patient's blood sugar well controlled and Hgb A1c 6.9. -continue diet control Peripheral arterial disease-stable. -Continue anticoagulation Intermittent agitation- -Continue Seroquel 50 mg in the morning and 100 mg at night -Psychiatry reevaluated the patient on 02/17 Constipation, documented bowel movement today -Abdominal x-ray 02/16 indicates moderate amount of stool in the colon on the left side. -Milk of magnesia as needed. -MiraLAX, lactulose, Haydee-Colace daily, lactulose, MiraLAX -Dulcolax as needed DVT prophylaxis - patient on Coumadin Discharge Planning Case management arranging discharge planning to [facility] facility once a finding facility that'll accept the patient/insurance. Has accepting SNF in order to get Medicaid, and must have someone to sign him in. Case management following. 02/23 Pt remains in the hospital due to lack of accepting facility. Although pt has [facility] Medicaid for discharge plans, there is no SNF benefit, thus pt will have to be accepted [facility] pending. CM discussed pt with Codey Rich CM who is complex funeral planner. He is currently working on placement. CM following. Truman Fulton Feb 26, 2016 09:15
[2016-02-26 12:00] VITALS: BP 124/70; PULSE 72; RESP 18; TEMP 97; O2SAT 96
[2016-02-26 16:00] VITALS: BP 118/70; PULSE 74; RESP 18; TEMP 97; O2SAT 96
[2016-02-26] MEDS: WARFARIN SOD 5 MG TAB PO SCH (16:54)
[2016-02-26 20:00] VITALS: BP 124/79; PULSE 83; RESP 18; TEMP 96.3; O2SAT 98
--- NOTE | 2016-02-26 20:52 | RADHPO ---
EXAM DATE/TIME: 02/26/2016 20:28 [place] COMPARISON: MRI BRAIN W/O CONTRAST, October 22, 2015, 14:38. CT BRAIN W/O CONTRAST, October 15, 2015, 21:47. INDICATIONS : Fall. Patient on blood thinners. RADIATION DOSE: 63.66 CTDIvol (mGy) MEDICAL HISTORY : Hypertension. Diabetes. SURGICAL HISTORY : None. ENCOUNTER: Initial ACUITY: 1 day PAIN SCALE: 5/10 LOCATION: cranial TECHNIQUE: Multiple contiguous axial images were obtained of the head. Using automated exposure control and adj ustment of the mA and/or kV according to patient size, radiation dose was kept as low as reasonably a chievable to obtain optimal diagnostic quality images. FINDINGS: CEREBRUM: The ventricles are normal for age. No evidence of midline shift, mass lesion, hemorrhage or acute in farction. No extra-axial fluid collections are seen. Old lacunar infarcts are seen of the bilateral basal ganglia. POSTERIOR FOSSA: The cerebellum and brainstem are intact. The 4th ventricle is midline. The cerebellopontine angle i s unremarkable. EXTRACRANIAL: The visualized portion of the orbits is intact. SKULL: The calvaria is intact. No evidence of skull fracture. CONCLUSION: No bleed or other acute intracranial abnormality demonstrated. Old ischemic changes. Camacho Lyon MD on February 26, 2016 at 20:49 Board Certified Radiologist. This report was verified electronically.
[2016-02-26] MEDS: ISOSORBIDE MONONITRATE 60 MG TAB PO SCH (21:54)
[2016-02-26] MEDS: QUEtiapine FUMARATE 100 MG TAB PO SCH (21:55)
[2016-02-27] MEDS: BACITRACIN TOP OINT 15 GM TUBE TOP SCH ×3 (06:14→20:48)
[2016-02-27 07:34] LABS: INTERNATIONAL NORMALIZED RATIO 2.4 RATIO; PROTHROMBIN TIME - PATIENT 26.3 SEC (9.8-11.4)
--- NOTE | 2016-02-27 08:12 | HHI.PR ---
Subjective Remarks Patient seen and examined today. Patient denies any new complaints. No change in clinical status. Objective Vitals Vital Signs Date Time Temp Pulse Resp B/P Pulse Ox O2 Delivery O2 Flow Rate FiO2 02/26/16 20:00 96.3 83 18 124/79 98 02/26/16 16:00 97.0 74 18 118/70 96 02/26/16 12:00 97.0 72 18 124/70 96 I/O 02/26/16 02/26/16 02/26/16 02/27/16 02/27/16 02/27/16 07:00 15:00 23:00 07:00 15:00 23:00 Intake Total 60 ml 0 ml 240 ml 120 ml Balance 60 ml 0 ml 240 ml 120 ml Intake Oral 60 ml 240 ml 120 ml IV Total 0 ml # Voids 1 0 1 # Bowel Movements 0 1 0 Objective Remarks GENERAL: Well-developed, well-nourished, in no acute distress. alert and orientated to person HEENT: Head is normocephalic without any lesions or masses noted. Facial features are symmetric. Eyes: Pupils equal round reactive to light. Extraocular muscles are intact. Conjunctivae were clear. NECK: Supple without any masses. Trachea midline no deviation. No JVD, CARDIAC: Regular rhythm, regular rate. S1/S2 are heard. No murmurs gallops or rubs. LUNGS: Clear to auscultation bilaterally. No wheeze, rhonchi or rales. No use of accessory muscles on inspiration or expiration. ABDOMEN: Soft, nontender. Nondistended. Bowel sounds heard in all 4 quadrants. No organomegaly or masses. Negative rebound, negative guarding. Patient has erythema in inguinal folds EXTREMITIES: No edema, pulses are equal bilaterally. No cyanosis or clubbing. Right [id number]-hcrl amputation. Left foot and Multi-Podus boot, patient does have multiple skin tears, dry skin flaking off. NEUROLOGY: Mood and affect appear appropriate. Cranial nerves II through XII grossly intact. Moving all extremities, speech is clear Procedures None Urinary Catheter: No Vascular Central Line Catheter: No A/P Assessment and Plan 60-year-old male with admitted 10/14 with acute cortical infarct. Patient remains with significant cognitive deficit. Bilateral cerebrovascular accident, with persistent cognitive defect -MRI showed acute cortical infarct of the right cerebral peduncle to the pelvis , left thalamus punctate area of infarct -Neurology last seen patient on 11/13/15, recommended long-term anticoagulation -Continue with Statin. -Continue Coumadin 5 mg daily and monitor INR/PT keep INR between 2 and 3, pharmacy consult for dosing. INR 2.4 -Reconsult PT/OT, patient will require intermittent therapy while he remains in the hospital so he does not decompensate -Out of bed with nursing only. Patient was counseled to not get out of bed on his own. Fall risk due to cognitive deficit Ischemic Cardiomyopathy/chronic systolic CHF LVEF 35% on echo 03/2015. Denies shortness of breath. Compensated. -Continue Coreg, Imdur, enalapril. -Could consider AICD if patient is able to consent, however patient is currently unable to consent -Fluid and sodium restrictions, follow volume status. 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 -Avoid nephrotoxins. -Monitor BMP intermittently left tibial surface- with superficial wound - improving -posterior aspect with erythema avoid pressure Bacitracin bid Bacteremia with Staphylococcus hemolyticus, from wounds. Resolved -Follow blood cultures have been negative since 10/16/15 -Status post Keflex and Cipro management -Infectious disease managed patient Tinea cruris -Nystatin powder twice daily for a week Diabetic mellitus - Glucose was well controlled. All insulin discontinued. -accu-checks discontinued as patient's blood sugar well controlled and Hgb A1c 6.9. -continue diet control Peripheral arterial disease-stable. -Continue anticoagulation Intermittent agitation- -Continue Seroquel 50 mg in the morning and 100 mg at night -Psychiatry reevaluated the patient on 02/17 Constipation, documented bowel movement today -Abdominal x-ray 02/16 indicates moderate amount of stool in the colon on the left side. -Milk of magnesia as needed. -MiraLAX, lactulose, Haydee-Colace daily, lactulose, MiraLAX -Dulcolax as needed DVT prophylaxis - patient on Coumadin Discharge Planning Case management arranging discharge planning to [facility] once a finding facility that'll accept the patient/insurance. Has accepting SNF in order to get Medicaid, and must have someone to sign him in. Case management following. 02/23 Pt remains in the hospital due to lack of accepting facility. Although pt has [facility] Medicaid for discharge plans, there is no SNF benefit, thus pt will have to be accepted ICP pending. CM discussed pt with Codey Rich CM who is complex workforce planner. He is currently working on placement. CM following. Truman Fulton Feb 27, 2016 08:12
[2016-02-27 08:58] VITALS: BP 106/69; PULSE 80; RESP 15; TEMP 97; O2SAT 96
[2016-02-27] MEDS: LACTULOSE SYRUP 20 GM/30 ML CUP PO SCH ×2 (09:00→09:58)
[2016-02-27] MEDS: EUCERIN CREAM 120 GM JAR TOPICAL SCH ×2 (09:00→20:47)
[2016-02-27] MEDS: ENALAPRIL MALEATE 2.5 MG TAB PO SCH (09:00)
[2016-02-27] MEDS: BETAMETHASONE DIPROPIONATE 0.05% OINT 15 GM TUBE TOP SCH ×2 (09:00→20:45)
[2016-02-27] MEDS: DOCUSATE SODIUM 50 MG/SENNA 8.6 MG TAB PO SCH ×3 (09:00→20:39)
[2016-02-27] MEDS: CARVEDILOL 12.5 MG TAB PO SCH ×2 (09:54→20:39)
[2016-02-27] MEDS: ATORVASTATIN 40 MG TAB PO SCH (09:55)
[2016-02-27] MEDS: QUEtiapine FUMARATE 25 MG TAB PO SCH (09:57)
[2016-02-27] MEDS: POLYETHYLENE GLYCOL 17 GM PKG PO SCH (09:58)
[2016-02-27] MEDS: WARFARIN SOD 5 MG TAB PO SCH (16:00)
[2016-02-27 20:00] VITALS: BP 131/87; PULSE 78; RESP 16; TEMP 98.7; O2SAT 97
[2016-02-27] MEDS: QUEtiapine FUMARATE 100 MG TAB PO SCH (20:39)
[2016-02-27] MEDS: ISOSORBIDE MONONITRATE 60 MG TAB PO SCH (20:39)
[2016-02-28] MEDS: BACITRACIN TOP OINT 15 GM TUBE TOP SCH ×3 (05:13→22:00)
[2016-02-28 08:00] VITALS: BP 118/79; PULSE 65; RESP 18; TEMP 96.9; O2SAT 99
--- NOTE | 2016-02-28 08:52 | HHI.PR ---
Subjective Remarks Patient seen and examined today. Patient denies any new complaints. No change in clinical status. Objective Vitals Vital Signs Date Time Temp Pulse Resp B/P Pulse Ox O2 Delivery O2 Flow Rate FiO2 02/27/16 20:00 98.7 78 16 131/87 97 02/27/16 08:58 97.0 80 15 106/69 96 I/O 02/27/16 02/27/16 02/27/16 02/28/16 02/28/16 02/28/16 07:00 15:00 23:00 07:00 15:00 23:00 Intake Total 120 ml 700 ml Output Total 225 ml 350 ml Balance 120 ml 475 ml -350 ml Intake Oral 120 ml 700 ml Output Urine Total 225 ml 350 ml # Voids 1 1 # Bowel Movements 0 Objective Remarks GENERAL: Well-developed, well-nourished, in no acute distress. alert and orientated to person HEENT: Head is normocephalic without any lesions or masses noted. Facial features are symmetric. Extraocular muscles are intact. Conjunctivae were clear. NECK: Supple without any masses. Trachea midline no deviation. No JVD, CARDIAC: Regular rhythm, regular rate. S1/S2 are heard. No murmurs gallops or rubs. LUNGS: Clear to auscultation bilaterally. No wheeze, rhonchi or rales. No use of accessory muscles on inspiration or expiration. ABDOMEN: Soft, nontender. Nondistended. Bowel sounds heard in all 4 quadrants. No organomegaly or masses. Negative rebound, negative guarding. Patient has erythema in inguinal folds EXTREMITIES: No edema, pulses are equal bilaterally. No cyanosis or clubbing. Right ailwz-php-vihe amputation. Left foot and Multi-Podus boot, patient does have multiple skin tears, dry skin flaking off. NEUROLOGY: Mood and affect appear appropriate. Cranial nerves II through XII grossly intact. Moving all extremities, speech is clear Procedures None Urinary Catheter: No Vascular Central Line Catheter: No A/P Assessment and Plan 60-year-old male with admitted 10/14 with acute cortical infarct. Patient remains with significant cognitive deficit. Bilateral cerebrovascular accident, with persistent cognitive defect -MRI showed acute cortical infarct of the right cerebral peduncle to the pelvis , left thalamus punctate area of infarct -Neurology last seen patient on 11/13/15, recommended long-term anticoagulation -Continue with Statin. -Continue Coumadin 5 mg daily and monitor INR/PT keep INR between 2 and 3, pharmacy consult for dosing. INR 2.4 -Reconsult PT/OT, patient will require intermittent therapy while he remains in the hospital so he does not decompensate -Out of bed with nursing only. Patient was counseled to not get out of bed on his own. Fall risk due to cognitive deficit Ischemic Cardiomyopathy/chronic systolic CHF LVEF 35% on echo 03/2015. Denies shortness of breath. Compensated. -Continue Coreg, Imdur, enalapril. -Could consider AICD if patient is able to consent, however patient is currently unable to consent -Fluid and sodium restrictions, follow volume status. 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 -Avoid nephrotoxins. -Monitor BMP intermittently left tibial surface- with superficial wound - improving -posterior aspect with erythema avoid pressure Bacitracin bid Bacteremia with Staphylococcus hemolyticus, from wounds. Resolved -Follow blood cultures have been negative since 10/16/15 -Status post Keflex and Cipro management -Infectious disease managed patient Tinea cruris -Nystatin powder twice daily for a week Diabetic mellitus - Glucose was well controlled. All insulin discontinued. -accu-checks discontinued as patient's blood sugar well controlled and Hgb A1c 6.9. -continue diet control Peripheral arterial disease-stable. -Continue anticoagulation Intermittent agitation- -Continue Seroquel 50 mg in the morning and 100 mg at night -Psychiatry reevaluated the patient on 02/17 Constipation, -Abdominal x-ray 02/16 indicates moderate amount of stool in the colon on the left side. -Milk of magnesia as needed. -MiraLAX, lactulose, Haydee-Colace daily, lactulose, MiraLAX -Dulcolax as needed DVT prophylaxis - patient on Coumadin Discharge Planning Case management arranging discharge planning to detention facility once a finding facility that'll accept the patient/insurance. Has accepting SNF in order to get Medicaid, and must have someone to sign him in. Case management following. 02/23 Pt remains in the hospital due to lack of accepting facility. Although pt has [facility] Medicaid for discharge plans, there is no SNF benefit, thus pt will have to be accepted ICP pending. CM discussed pt with Codey Rich CM who is complex regional planner. He is currently working on placement. CM following. Truman Fulton Feb 28, 2016 08:51
[2016-02-28] MEDS: LACTULOSE SYRUP 20 GM/30 ML CUP PO SCH (09:00)
[2016-02-28] MEDS: ATORVASTATIN 40 MG TAB PO SCH (09:57)
[2016-02-28] MEDS: POLYETHYLENE GLYCOL 17 GM PKG PO SCH (09:57)
[2016-02-28] MEDS: CARVEDILOL 12.5 MG TAB PO SCH ×2 (09:58→21:00)
[2016-02-28] MEDS: DOCUSATE SODIUM 50 MG/SENNA 8.6 MG TAB PO SCH ×2 (09:58→21:00)
[2016-02-28] MEDS: ENALAPRIL MALEATE 2.5 MG TAB PO SCH (09:58)
[2016-02-28] MEDS: QUEtiapine FUMARATE 25 MG TAB PO SCH (09:58)
[2016-02-28] MEDS: EUCERIN CREAM 120 GM JAR TOPICAL SCH ×2 (10:00→21:00)
[2016-02-28] MEDS: BETAMETHASONE DIPROPIONATE 0.05% OINT 15 GM TUBE TOP SCH ×2 (10:00→21:00)
[2016-02-28] MEDS: WARFARIN SOD 5 MG TAB PO SCH (17:13)
[2016-02-28 20:00] VITALS: BP 148/87; PULSE 79; RESP 20; TEMP 98.1; O2SAT 96
[2016-02-28] MEDS: ISOSORBIDE MONONITRATE 60 MG TAB PO SCH (21:00)
[2016-02-28] MEDS: QUEtiapine FUMARATE 100 MG TAB PO SCH (21:00)
[2016-02-29] MEDS: BACITRACIN TOP OINT 15 GM TUBE TOP SCH ×3 (05:35→20:49)
[2016-02-29 08:00] VITALS: BP 153/96; PULSE 74; RESP 20; TEMP 97.3; O2SAT 98
--- NOTE | 2016-02-29 08:01 | HHI.PR ---
Subjective Remarks Patient seen and examined today. Patient denies any new complaints. Patient states that he wants to get out of here. No change in clinical status Objective Vitals Vital Signs Date Time Temp Pulse Resp B/P Pulse Ox O2 Delivery O2 Flow Rate FiO2 02/28/16 20:00 98.1 79 20 148/87 96 02/28/16 08:00 96.9 65 18 118/79 99 I/O 02/28/16 02/28/16 02/28/16 02/29/16 02/29/16 02/29/16 07:00 15:00 23:00 07:00 15:00 23:00 Intake Total 625 ml Output Total 350 ml 850 ml 200 ml 250 ml Balance -350 ml -225 ml -200 ml -250 ml Intake Oral 625 ml IV Total 0 ml Output Urine Total 350 ml 850 ml 200 ml 250 ml # Bowel Movements 0 Objective Remarks GENERAL: Well-developed, well-nourished, in no acute distress. alert and orientated to person HEENT: Head is normocephalic without any lesions or masses noted. Facial features are symmetric. Extraocular muscles are intact. Conjunctivae were clear. NECK: Supple without any masses. Trachea midline no deviation. No JVD, CARDIAC: Regular rhythm, regular rate. S1/S2 are heard. No murmurs gallops or rubs. LUNGS: Clear to auscultation bilaterally. No wheeze, rhonchi or rales. No use of accessory muscles on inspiration or expiration. ABDOMEN: Soft, nontender. Nondistended. Bowel sounds heard in all 4 quadrants. No organomegaly or masses. Negative rebound, negative guarding. Patient has erythema in inguinal folds EXTREMITIES: No edema, pulses are equal bilaterally. No cyanosis or clubbing. Right tzvof-kih-fyon amputation. Left foot and Multi-Podus boot, patient does have multiple skin tears, dry skin flaking off. NEUROLOGY: Mood and affect appear appropriate. Cranial nerves II through XII grossly intact. Moving all extremities, speech is clear Procedures None Urinary Catheter: No Vascular Central Line Catheter: No A/P Assessment and Plan 60-year-old male with admitted 10/14 with acute cortical infarct. Patient remains with significant cognitive deficit. Bilateral cerebrovascular accident, with persistent cognitive defect -MRI showed acute cortical infarct of the right cerebral peduncle to the pelvis , left thalamus punctate area of infarct -Neurology last seen patient on 11/13/15, recommended long-term anticoagulation -Continue with Statin. -Continue Coumadin 5 mg daily and monitor INR/PT keep INR between 2 and 3, pharmacy consult for dosing. INR 2.4 -Reconsult PT/OT, patient will require intermittent therapy while he remains in the hospital so he does not decompensate -Out of bed with nursing only. Patient was counseled to not get out of bed on his own. Fall risk due to cognitive deficit Ischemic Cardiomyopathy/chronic systolic CHF LVEF 35% on echo 03/2015. Denies shortness of breath. Compensated. -Continue Coreg, Imdur, enalapril. -Could consider AICD if patient is able to consent, however patient is currently unable to consent -Fluid and sodium restrictions, follow volume status. 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 -Avoid nephrotoxins. -Monitor BMP intermittently left tibial surface- with superficial wound - improving -posterior aspect with erythema avoid pressure Bacitracin bid Bacteremia with Staphylococcus hemolyticus, from wounds. Resolved -Follow blood cultures have been negative since 10/16/15 -Status post Keflex and Cipro management -Infectious disease managed patient Diabetic mellitus - Glucose was well controlled. All insulin discontinued. -accu-checks discontinued as patient's blood sugar well controlled and Hgb A1c 6.9. -continue diet control Peripheral arterial disease-stable. -Continue anticoagulation Intermittent agitation- -Continue Seroquel 50 mg in the morning and 100 mg at night -Psychiatry reevaluated the patient on 02/17 Constipation, -Abdominal x-ray 02/16 indicates moderate amount of stool in the colon on the left side. -Milk of magnesia as needed. -MiraLAX, lactulose, Haydee-Colace daily, lactulose, MiraLAX -Dulcolax as needed DVT prophylaxis - patient on Coumadin Discharge Planning Case management arranging discharge planning to [facility] facility once a finding facility that'll accept the patient/insurance. Has accepting SNF in order to get Medicaid, and must have someone to sign him in. Case management following. 02/23 Pt remains in the hospital due to lack of accepting facility. Although pt has [facility] Medicaid for discharge plans, there is no SNF benefit, thus pt will have to be accepted [facility] pending. CM discussed pt with Codey Rich CM who is complex conservation planner. He is currently working on placement. CM following. Truman Fulton Feb 29, 2016 08:01
[2016-02-29] MEDS: ATORVASTATIN 40 MG TAB PO SCH (08:34)
[2016-02-29] MEDS: CARVEDILOL 12.5 MG TAB PO SCH ×2 (08:34→20:47)
[2016-02-29] MEDS: LACTULOSE SYRUP 20 GM/30 ML CUP PO SCH (08:34)
[2016-02-29] MEDS: ENALAPRIL MALEATE 2.5 MG TAB PO SCH (08:35)
[2016-02-29] MEDS: QUEtiapine FUMARATE 25 MG TAB PO SCH (08:35)
[2016-02-29] MEDS: POLYETHYLENE GLYCOL 17 GM PKG PO SCH (08:35)
[2016-02-29] MEDS: DOCUSATE SODIUM 50 MG/SENNA 8.6 MG TAB PO SCH ×2 (08:35→20:47)
[2016-02-29] MEDS: EUCERIN CREAM 120 GM JAR TOPICAL SCH ×2 (10:51→20:49)
[2016-02-29] MEDS: BETAMETHASONE DIPROPIONATE 0.05% OINT 15 GM TUBE TOP SCH ×2 (10:51→20:49)
[2016-02-29] MEDS: WARFARIN SOD 5 MG TAB PO SCH (14:40)
[2016-02-29 20:00] VITALS: BP 134/78; PULSE 85; RESP 18; TEMP 97.6; O2SAT 99
[2016-02-29] MEDS: ISOSORBIDE MONONITRATE 60 MG TAB PO SCH (20:47)
[2016-02-29] MEDS: QUEtiapine FUMARATE 100 MG TAB PO SCH (20:48)
[2016-03-01] MEDS: BACITRACIN TOP OINT 15 GM TUBE TOP SCH ×3 (05:38→20:42)
[2016-03-01 06:57] LABS: INTERNATIONAL NORMALIZED RATIO 1.3 RATIO; PROTHROMBIN TIME - PATIENT 13.1 SEC (9.8-11.4)
[2016-03-01 08:41] VITALS: BP 156/94; PULSE 73; RESP 18; TEMP 97; O2SAT 98
[2016-03-01] MEDS: DOCUSATE SODIUM 50 MG/SENNA 8.6 MG TAB PO SCH ×2 (09:00→20:40)
[2016-03-01] MEDS: BETAMETHASONE DIPROPIONATE 0.05% OINT 15 GM TUBE TOP SCH ×2 (09:00→20:42)
[2016-03-01] MEDS: CARVEDILOL 12.5 MG TAB PO SCH ×2 (09:00→20:40)
[2016-03-01] MEDS: ATORVASTATIN 40 MG TAB PO SCH (09:00)
[2016-03-01] MEDS: LACTULOSE SYRUP 20 GM/30 ML CUP PO SCH (09:00)
[2016-03-01] MEDS: EUCERIN CREAM 120 GM JAR TOPICAL SCH ×2 (09:00→20:42)
[2016-03-01] MEDS: ENALAPRIL MALEATE 2.5 MG TAB PO SCH (09:00)
[2016-03-01] MEDS: QUEtiapine FUMARATE 25 MG TAB PO SCH (09:00)
[2016-03-01] MEDS: POLYETHYLENE GLYCOL 17 GM PKG PO SCH (09:00)
--- NOTE | 2016-03-01 10:43 | HHI.PR ---
Subjective Remarks No acute complaints. No change in clinical status. Objective Vitals Vital Signs Date Time Temp Pulse Resp B/P Pulse Ox O2 Delivery O2 Flow Rate FiO2 03/01/16 08:41 97.0 73 18 156/94 98 02/29/16 20:00 97.6 85 18 134/78 99 I/O 02/29/16 02/29/16 02/29/16 03/01/16 03/01/16 03/01/16 06:59 14:59 22:59 06:59 14:59 22:59 Intake Total 930 ml 560 ml 240 ml Output Total 250 ml 150 ml 350 ml Balance -250 ml 930 ml 410 ml -110 ml Intake Oral 930 ml 560 ml 240 ml Output Urine Total 250 ml 150 ml 350 ml # Voids 2 1 Objective Remarks GENERAL: Well-nourished, well-developed male in no apparent distress. SKIN: Warm and dry. [place] scars to the left anterior tibia. Scabbed wound to left anterior knee. CARDIOVASCULAR: Regular rate and rhythm. RESPIRATORY: Limited anterior exam. No accessory muscle use. Clear to auscultation. Breath sounds equal bilaterally. GASTROINTESTINAL: Abdomen soft, non-tender, nondistended. MUSCULOSKELETAL: Right BKA noted without acute abnormalities. No left lower extremity swelling. NEUROLOGICAL: Awake and alert. Normal speech. Procedures None Urinary Catheter: No Vascular Central Line Catheter: No A/P Problem List: (1) Cellulitis ICD Code: L03.90 Status: Resolved (2) Ischemic cardiomyopathy ICD Code: I25.5 Status: Chronic (3) Diabetes mellitus type 2 in obese ICD Code: E11.9 Status: Chronic (4) S/P BKA (below knee amputation) unilateral ICD Code: Z89.519 Status: Chronic (5) Acute metabolic encephalopathy ICD Code: G93.41 Status: Resolved (6) Bacteremia ICD Code: R78.81 Status: Resolved (7) Chronic systolic (congestive) heart failure ICD Code: I50.22 Status: Chronic (8) Venous stasis ulcer of left lower extremity ICD Code: I83.029 Status: Chronic (9) CVA (cerebral vascular accident) ICD Code: I63.9 Status: Chronic (10) Seborrheic dermatitis ICD Code: L21.9 Status: Resolved Assessment and Plan 60-year-old male with admitted 10/14 with acute cortical infarct. Patient remains with significant cognitive deficit. Bilateral cerebrovascular accident, with persistent cognitive defect -MRI showed acute cortical infarct of the right cerebral peduncle to the pelvis , left thalamus punctate area of infarct -Neurology last seen patient on 11/13/15, recommended long-term anticoagulation -Continue with Statin. -Continue Coumadin daily and monitor INR/PT keep INR between 2 and 3. INR decreased to 1.3 today. Pharmacy dosing Coumadin. -Discharged from PT and OT as he has reached maximum benefit here. -Out of bed with nursing only. Patient was counseled to not get out of bed on his own. Fall risk due to cognitive deficit Ischemic Cardiomyopathy/chronic systolic CHF LVEF 35% on echo 03/2015. Denies shortness of breath. Compensated. -Continue Coreg, Imdur, enalapril. -Could consider AICD if patient is able to consent, however patient is currently unable to consent -Fluid and sodium restrictions, follow volume status. Chronic kidney disease stage 3/4. -Avoid nephrotoxins. -BMP 02/17 with acute worsening with BUN 55 and Cr 2.0, prerenal. BUN/Cr 02/20 at 41/1.60, likely baseline. Encouraged by mouth hydration although still keep within 1500 mL/day limit due to CHF. left tibial surface- with superficial wound - improving -posterior aspect with erythema avoid pressure Bacitracin bid Bacteremia with Staphylococcus hemolyticus, from wounds. Resolved -Follow blood cultures have been negative since 10/16/15 -Status post Keflex and Cipro management -Infectious disease managed patient Tinea cruris -Nystatin powder twice daily for a week Diabetic mellitus - Glucose was well controlled. All insulin discontinued. -Accu-checks discontinued as patient's blood sugar well controlled and Hgb A1c 6.9. -continue diet control Peripheral arterial disease-stable. -Continue anticoagulation Intermittent agitation- -Psychiatry reevaluated the patient on 02/17 and increased Seroquel to 50 mg in the morning and 100 mg qhs. Constipation: -Abdominal x-ray 02/16 with moderate amount of stool in the colon on the left side; minimally prominent segments of small bowel in the upper abdomen -Improved after medication, but now refusing scheduled MiraLAX, Haydee-Colace, and Lactulose. -Last BM documented 02/26; will encourage use of medication -Milk of magnesia, Dulcolax suppository as needed. DVT prophylaxis -patient on Coumadin Discharge Planning Have to have accepting SNF in order to get Medicaid, and must have someone to sign him in. Case management following. PT at rehab recommended. OT recommends 3-1 bedside commode, shower bench, and long-term care facility with restorative services. Problem Qualifiers (1) Cellulitis: (2) S/P BKA (below knee amputation) unilateral: Qualified Code: Z89.511 - S/P BKA (below knee amputation) unilateral, right (3) CVA (cerebral vascular accident): Qualified Code: I63.9 - Cerebrovascular accident (CVA), unspecified mechanism Jennifer Mae Mar 01, 2016 10:43
[2016-03-01] MEDS: WARFARIN SOD 5 MG TAB PO SCH (16:00)
[2016-03-01 20:00] VITALS: BP 146/93; PULSE 81; RESP 20; TEMP 98.4; O2SAT 97
[2016-03-01] MEDS: ISOSORBIDE MONONITRATE 60 MG TAB PO SCH (20:40)
[2016-03-01] MEDS: QUEtiapine FUMARATE 100 MG TAB PO SCH (20:41)
[2016-03-02] MEDS: BACITRACIN TOP OINT 15 GM TUBE TOP SCH ×3 (05:06→21:25)
[2016-03-02] MEDS: BETAMETHASONE DIPROPIONATE 0.05% OINT 15 GM TUBE TOP SCH ×2 (09:00→21:00)
[2016-03-02] MEDS: EUCERIN CREAM 120 GM JAR TOPICAL SCH ×2 (09:00→21:25)
--- NOTE | 2016-03-02 09:59 | HHI.PR ---
Subjective Remarks No acute complaints. Patient has been refusing his laxatives and when I asked him why he states he does not like how they make him feel but does not refer to any particular symptoms. He denies feeling constipated. Last bowel movement documented was 02/26. Objective Vitals Vital Signs Date Time Temp Pulse Resp B/P Pulse Ox O2 Delivery O2 Flow Rate FiO2 03/01/16 20:00 98.4 81 20 146/93 97 I/O 03/01/16 03/01/16 03/01/16 03/02/16 03/02/16 03/02/16 07:00 15:00 23:00 07:00 15:00 23:00 Intake Total 240 ml 740 ml 240 ml Output Total 350 ml 400 ml 600 ml Balance -110 ml 340 ml -360 ml Intake Oral 240 ml 740 ml 240 ml Output Urine Total 350 ml 400 ml 600 ml # Voids 2 2 # Bowel Movements 0 0 Imaging Last Impressions Head CT 02/26/16 0000 Signed Impressions: Service Date/Time: Friday, February 26, 2016 20:28 - CONCLUSION: No bleed or other acute intracranial abnormality demonstrated. Old ischemic changes. Camacho Lyon MD Abdomen X-Ray 02/17/16 0000 Signed Impressions: Service Date/Time: Wednesday, February 17, 2016 12:13 - CONCLUSION: Moderate amount stool in the colon especially on the left side. There are some minimally prominent segments of small bowel in the upper abdomen. Camacho Santana MD Chest X-Ray 11/06/15 0000 Signed Impressions: Service Date/Time: Friday, November 06, 2015 11:35 - CONCLUSION: Compensated cardiomegaly, history of bypass otherwise negative. Superior most sternal wire is fractured. Didier Clay MD FACR Liver Ultrasound 10/30/15 0000 Signed Impressions: Service Date/Time: Friday, October 30, 2015 17:29 - CONCLUSION: 1. Cholelithiasis with probable gallbladder sludge and mild gallbladder distention. 2. Splenomegaly. Sameer Alexandra MD Modified Barium Swallow 10/27/15 0000 Signed Impressions: Service Date/Time: Tuesday, October 27, 2015 00:00 - CONCLUSION: Negative for penetration or aspiration. Please see speech pathology report. Tai Cohen MD Brain MRI 10/22/15 0000 Signed Impressions: Service Date/Time: September 14:38 - CONCLUSION: 1. No significant interval change is identified. There is stable restricted diffusion in the left basal ganglia representing an area of recent ischemia. There are no findings to indicate hemorrhagic transformation. The previously documented signal change within the right cerebral peduncle has nearly normalized. 2. Stable chronic white matter changes. Camacho Culp MD Neck Magnetic Resonance Angiography 10/21/15 0000 Signed Impressions: Service Date/Time: Wednesday, October 21, 2015 12:52 - CONCLUSION: . 1. Unremarkable MRA of the carotid arteries bilaterally. 2. Nonspecific possible collateral vessels in the soft tissues posterior to the right vertebral artery. The right verbal artery appears to be patent. If clinically indicated, a CTA could be performed for further evaluation. Abiodun Hall MD Head Magnetic Resonance Angiography 10/21/15 0000 Signed Impressions: Service Date/Time: Wednesday, October 21, 2015 12:52 - CONCLUSION: Unremarkable MRA of the brain. Abiodun Hall MD Objective Remarks GENERAL: Well-nourished, well-developed male in no apparent distress sitting in recliner. SKIN: Warm and dry. CARDIOVASCULAR: Regular rate and rhythm. RESPIRATORY: No accessory muscle use. Clear to auscultation. Breath sounds equal bilaterally. GASTROINTESTINAL: Abdomen soft, non-tender, nondistended. NEUROLOGICAL: Awake and alert. Normal speech. Procedures None A/P Problem List: (1) Cellulitis ICD Code: L03.90 Status: Resolved (2) Ischemic cardiomyopathy ICD Code: I25.5 Status: Chronic (3) Diabetes mellitus type 2 in obese ICD Code: E11.9 Status: Chronic (4) S/P BKA (below knee amputation) unilateral ICD Code: Z89.519 Status: Chronic (5) Acute metabolic encephalopathy ICD Code: G93.41 Status: Resolved (6) Bacteremia ICD Code: R78.81 Status: Resolved (7) Chronic systolic (congestive) heart failure ICD Code: I50.22 Status: Chronic (8) Venous stasis ulcer of left lower extremity ICD Code: I83.029 Status: Chronic (9) CVA (cerebral vascular accident) ICD Code: I63.9 Status: Chronic (10) Seborrheic dermatitis ICD Code: L21.9 Status: Resolved Assessment and Plan 60-year-old male with admitted 6/16 with acute cortical infarct. Patient remains with significant cognitive deficit. Bilateral cerebrovascular accident, with persistent cognitive defect -MRI showed acute cortical infarct of the right cerebral peduncle to the pelvis , left thalamus punctate area of infarct -Neurology last seen patient on 11/13/15, recommended long-term anticoagulation -Continue with Statin. -Continue Coumadin daily and monitor INR/PT keep INR between 2 and 3. INR subtherapeutic yesterday. Pharmacy dosing Coumadin. -Discharged from PT and OT as he has reached maximum benefit here. -Out of bed with nursing only. Patient was counseled to not get out of bed on his own. Fall risk due to cognitive deficit Ischemic Cardiomyopathy/chronic systolic CHF LVEF 35% on echo 03/2015. Denies shortness of breath. Compensated. -Continue Coreg, Imdur, enalapril. -Could consider AICD if patient is able to consent, however patient is currently unable to consent -Fluid and sodium restrictions, follow volume status. Chronic kidney disease stage 3/4. -Avoid nephrotoxins. -BMP 02/17 with acute worsening with BUN 55 and Cr 2.0, prerenal. BUN/Cr 02/20 at 41/1.60, likely baseline. Encouraged by mouth hydration although still keep within 1500 mL/day limit due to CHF. left tibial surface- with superficial wound - improving -posterior aspect with erythema avoid pressure Bacitracin bid Bacteremia with Staphylococcus hemolyticus, from wounds. Resolved -Follow blood cultures have been negative since 10/16/15 -Status post Keflex and Cipro management -Infectious disease managed patient Tinea cruris -S/p Nystatin powder Diabetic mellitus - Glucose was well controlled. All insulin discontinued. -Accu-checks discontinued as patient's blood sugar well controlled and Hgb A1c 6.9. -continue diet control Peripheral arterial disease-stable. -Continue anticoagulation Intermittent agitation- -Psychiatry reevaluated the patient on 02/17 and increased Seroquel to 50 mg in the morning and 100 mg qhs. Constipation: -Abdominal x-ray 02/16 with moderate amount of stool in the colon on the left side; minimally prominent segments of small bowel in the upper abdomen -Improved after medication, but refused scheduled MiraLAX, Haydee-Colace, and Lactulose yesterday. -Last BM documented 02/26; I counseled patient today on importance of taking laxatives and he will try to take them today. -Milk of magnesia, Dulcolax suppository as needed. DVT prophylaxis -patient on Coumadin Discharge Planning Have to have accepting SNF in order to get Medicaid, and must have someone to sign him in. Case management following. PT at rehab recommended. OT recommends 3-1 bedside commode, shower bench, and long-term care facility with restorative services. Problem Qualifiers (1) Cellulitis: (2) S/P BKA (below knee amputation) unilateral: Qualified Code: Z89.511 - S/P BKA (below knee amputation) unilateral, right (3) CVA (cerebral vascular accident): Qualified Code: I63.9 - Cerebrovascular accident (CVA), unspecified mechanism Jennifer Mae Mar 02, 2016 09:59
[2016-03-02] MEDS: CARVEDILOL 12.5 MG TAB PO SCH ×2 (10:49→21:00)
[2016-03-02] MEDS: POLYETHYLENE GLYCOL 17 GM PKG PO SCH (10:49)
[2016-03-02] MEDS: LACTULOSE SYRUP 20 GM/30 ML CUP PO SCH (10:49)
[2016-03-02] MEDS: ATORVASTATIN 40 MG TAB PO SCH (10:49)
[2016-03-02] MEDS: ENALAPRIL MALEATE 2.5 MG TAB PO SCH (10:49)
[2016-03-02] MEDS: DOCUSATE SODIUM 50 MG/SENNA 8.6 MG TAB PO SCH ×2 (10:49→21:23)
[2016-03-02] MEDS: QUEtiapine FUMARATE 25 MG TAB PO SCH (10:49)
[2016-03-02 12:00] VITALS: BP 133/76; PULSE 86; RESP 18; TEMP 98.3; O2SAT 99
[2016-03-02] MEDS: WARFARIN SOD 5 MG TAB PO SCH ×2 (16:00→17:45)
[2016-03-02 20:00] VITALS: BP 100/66; PULSE 74; RESP 20; TEMP 97.9; O2SAT 99
[2016-03-02] MEDS: ISOSORBIDE MONONITRATE 60 MG TAB PO SCH (21:00)
[2016-03-02] MEDS: QUEtiapine FUMARATE 100 MG TAB PO SCH (21:23)
[2016-03-03] MEDS: BACITRACIN TOP OINT 15 GM TUBE TOP SCH ×3 (06:00→20:56)
[2016-03-03 06:36] LABS: INTERNATIONAL NORMALIZED RATIO 1.1 RATIO; PROTHROMBIN TIME - PATIENT 12.6 SEC (9.8-11.6)
[2016-03-03] MEDS: POLYETHYLENE GLYCOL 17 GM PKG PO SCH (09:00)
[2016-03-03] MEDS: QUEtiapine FUMARATE 25 MG TAB PO SCH (09:00)
[2016-03-03] MEDS: CARVEDILOL 12.5 MG TAB PO SCH ×2 (09:00→20:55)
[2016-03-03] MEDS: ATORVASTATIN 40 MG TAB PO SCH (09:00)
[2016-03-03] MEDS: DOCUSATE SODIUM 50 MG/SENNA 8.6 MG TAB PO SCH ×2 (09:00→20:55)
[2016-03-03] MEDS: ENALAPRIL MALEATE 2.5 MG TAB PO SCH (09:00)
[2016-03-03] MEDS: EUCERIN CREAM 120 GM JAR TOPICAL SCH ×2 (09:00→20:55)
[2016-03-03] MEDS: BETAMETHASONE DIPROPIONATE 0.05% OINT 15 GM TUBE TOP SCH ×2 (09:00→20:56)
[2016-03-03] MEDS: LACTULOSE SYRUP 20 GM/30 ML CUP PO SCH (09:00)
[2016-03-03] MEDS ORDERED: Custom Consult Pharmacy 1 EA OTHER SCH (11:00)
[2016-03-03] MEDS: ENOXAPARIN SODIUM 100 MG/ML SYRINGE SQ SCH (12:00)
[2016-03-03 18:18] VITALS: BP 121/80; PULSE 80; RESP 18; TEMP 97.9; O2SAT 99
--- NOTE | 2016-03-03 18:47 | HHI.PR ---
Subjective Remarks Late entry. Patient evaluated early this morning. Patient has refused to take his warfarin on several occasions. When I ask him why, he states it makes him nauseous and had vomiting but he is not a great historian and is trying to sleep while I'm talking to him. He said the same thing about the laxatives on a prior evaluation. Objective Vitals Vital Signs Date Time Temp Pulse Resp B/P Pulse Ox O2 Delivery O2 Flow Rate FiO2 03/03/16 18:18 97.9 80 18 121/80 99 03/02/16 20:00 97.9 74 20 100/66 99 I/O 03/02/16 03/02/16 03/02/16 03/03/16 03/03/16 03/03/16 07:00 15:00 23:00 07:00 15:00 23:00 Intake Total 240 ml 450 ml 0 ml 0 ml 440 ml Output Total 600 ml 0 ml 0 ml 500 ml Balance -360 ml 450 ml 0 ml 0 ml -60 ml Intake Oral 240 ml 450 ml 0 ml 0 ml 440 ml Output Urine Total 600 ml 0 ml 0 ml 500 ml # Voids 2 3 0 0 # Bowel Movements 0 0 0 0 Objective Remarks GENERAL: Well-nourished, well-developed male in no apparent distress. SKIN: Warm and dry. CARDIOVASCULAR: Regular rate and rhythm. RESPIRATORY: Limited anterior exam. No accessory muscle use. Clear to auscultation. Breath sounds equal bilaterally. GASTROINTESTINAL: Abdomen soft, non-tender, nondistended. NEUROLOGICAL: Normal speech. Procedures None Urinary Catheter: No Vascular Central Line Catheter: No A/P Problem List: (1) Cellulitis ICD Code: L03.90 Status: Resolved (2) Ischemic cardiomyopathy ICD Code: I25.5 Status: Chronic (3) Diabetes mellitus type 2 in obese ICD Code: E11.9 Status: Chronic (4) S/P BKA (below knee amputation) unilateral ICD Code: Z89.519 Status: Chronic (5) Acute metabolic encephalopathy ICD Code: G93.41 Status: Resolved (6) Bacteremia ICD Code: R78.81 Status: Resolved (7) Chronic systolic (congestive) heart failure ICD Code: I50.22 Status: Chronic (8) Venous stasis ulcer of left lower extremity ICD Code: I83.029 Status: Chronic (9) CVA (cerebral vascular accident) ICD Code: I63.9 Status: Chronic (10) Seborrheic dermatitis ICD Code: L21.9 Status: Resolved Assessment and Plan 60-year-old male with admitted 10/14 with acute cortical infarct. Patient remains with significant cognitive deficit. Bilateral cerebrovascular accident, with persistent cognitive defect -MRI showed acute cortical infarct of the right cerebral peduncle to the pelvis , left thalamus punctate area of infarct -Neurology last seen patient on 11/13/15, recommended long-term anticoagulation -Continue with Statin. -Discharged from PT and OT as he has reached maximum benefit here. -Out of bed with nursing only. Patient was counseled to not get out of bed on his own. Fall risk due to cognitive deficit -Patient has been on Coumadin, but has been refusing doses and INR is subtherapeutic. I spoke with pharmacist. Patient will be switched to Lovenox with renal dosing 90 mg subcutaneous daily. Ischemic Cardiomyopathy/chronic systolic CHF LVEF 35% on echo 03/2015. Denies shortness of breath. Compensated. -Continue Coreg, Imdur, enalapril. -Could consider AICD if patient is able to consent, however patient is currently unable to consent -Fluid and sodium restrictions, follow volume status. Chronic kidney disease stage 3/4. -Avoid nephrotoxins. -BMP 02/17 with acute worsening with BUN 55 and Cr 2.0, prerenal. BUN/Cr 02/20 at 41/1.60, likely baseline. Encouraged by mouth hydration although still keep within 1500 mL/day limit due to CHF. Medication noncompliance: Patient refuses all of his medications today. Discussed with Dr. Moon. Will order am CBC, BMP, and UA to rule out infection. Will reconsult psychiatry. left tibial surface- with superficial wound - improving -posterior aspect with erythema avoid pressure Bacitracin bid Bacteremia with Staphylococcus hemolyticus, from wounds. Resolved -Follow blood cultures have been negative since 10/16/15 -Status post Keflex and Cipro management -Infectious disease managed patient Tinea cruris -S/p Nystatin powder Diabetic mellitus - Glucose was well controlled. All insulin discontinued. -Accu-checks discontinued as patient's blood sugar well controlled and Hgb A1c 6.9. -continue diet control Peripheral arterial disease-stable. -Continue anticoagulation Intermittent agitation- -Psychiatry reevaluated the patient on 02/17 and increased Seroquel to 50 mg in the morning and 100 mg qhs. Constipation: -Abdominal x-ray 02/16 with moderate amount of stool in the colon on the left side; minimally prominent segments of small bowel in the upper abdomen -MiraLAX, Haydee-Colace, and Lactulose scheduled. -Milk of magnesia, Dulcolax suppository as needed. DVT prophylaxis -patient on Coumadin Discharge Planning Have to have accepting SNF in order to get Medicaid, and must have someone to sign him in. Case management following. PT at rehab recommended. OT recommends 3-1 bedside commode, shower bench, and long-term care facility with restorative services. Problem Qualifiers (1) Cellulitis: (2) S/P BKA (below knee amputation) unilateral: Qualified Code: Z89.511 - S/P BKA (below knee amputation) unilateral, right (3) CVA (cerebral vascular accident): Qualified Code: I63.9 - Cerebrovascular accident (CVA), unspecified mechanism Jennifer Mae Mar 03, 2016 18:46
[2016-03-03 20:00] VITALS: BP 123/76; PULSE 78; RESP 20; TEMP 97.5; O2SAT 99
[2016-03-03] MEDS: ISOSORBIDE MONONITRATE 60 MG TAB PO SCH (20:55)
[2016-03-03] MEDS: QUEtiapine FUMARATE 100 MG TAB PO SCH (20:55)
[2016-03-03 21:38] LABS: BLOOD, URINE NEG (NEG); GLUCOSE,URINE NEG (NEG); KETONE, URINE NEG (NEG); NITRITE,URINE NEG (NEG); PH, URINE 5.5 (5.0-8.5)
[2016-03-03 21:42] LABS: COMMENT (UR) CULT NOT INDICATED; CULTURE IF INDICATED CULT NOT INDICATED; RBC, URINE 0-2 /hpf (0-3); SQUAMOUS EPITHELIAL CELL URINE 0-5 /hpf (0-5); URINE COLOR YELLOW (YELLW/STRAW); WBC, URINE 0-2 /hpf (0-5)
[2016-03-04] MEDS: BACITRACIN TOP OINT 15 GM TUBE TOP SCH ×3 (05:43→21:20)
[2016-03-04 07:03] LABS: AUTOMATED NEUTROPHIL # 5.6 TH/MM3 (1.8-7.7); BASOPHIL % 0.4 % (0.0-2.0); EOSINOPHIL # 0.4 TH/MM3 (0-0.4); EOSINOPHIL % 4.4 % (0.0-4.0); HEMATOCRIT 26.4 % (39.0-51.0); HEMO FLAGS DIFF FINAL; LYMPH % 19.7 % (9.0-44.0); LYMPHOCYTE # 1.6 TH/MM3 (1.0-4.8); MEAN CELL VOLUME 84.3 FL (80.0-100.0); MEAN CORPUSCULAR HEMOGLOBIN 28.9 PG (27.0-34.0); MEAN CORPUSCULAR HGB CONC 34.3 % (32.0-36.0); MONO % 7.9 % (0.0-8.0); NEUT % 67.6 % (16.0-70.0); PLATELET COUNT 180 TH/MM3 (150-450); RED BLOOD COUNT 3.13 MIL/MM3 (4.50-5.90); RED CELL DISTRIBUTION WIDTH 14.4 % (11.6-17.2); WHITE BLOOD COUNT 8.2 TH/MM3 (4.0-11.0)
[2016-03-04 07:05] LABS: POTASSIUM 4.6 MEQ/L (3.5-5.1)
[2016-03-04 07:06] LABS: INTERNATIONAL NORMALIZED RATIO 1.1 RATIO; PROTHROMBIN TIME - PATIENT 12.4 SEC (9.8-11.6)
[2016-03-04 07:09] LABS: BICARBONATE 25.2 MEQ/L (21.0-32.0)
[2016-03-04] MEDS: CARVEDILOL 12.5 MG TAB PO SCH ×2 (08:08→21:20)
[2016-03-04] MEDS: ATORVASTATIN 40 MG TAB PO SCH (08:08)
[2016-03-04] MEDS: LACTULOSE SYRUP 20 GM/30 ML CUP PO SCH (08:08)
[2016-03-04] MEDS: QUEtiapine FUMARATE 25 MG TAB PO SCH (08:08)
[2016-03-04] MEDS: ENALAPRIL MALEATE 2.5 MG TAB PO SCH (08:08)
[2016-03-04] MEDS: POLYETHYLENE GLYCOL 17 GM PKG PO SCH (08:08)
[2016-03-04] MEDS: DOCUSATE SODIUM 50 MG/SENNA 8.6 MG TAB PO SCH ×2 (08:08→21:20)
[2016-03-04] MEDS: EUCERIN CREAM 120 GM JAR TOPICAL SCH ×2 (08:28→21:20)
[2016-03-04] MEDS: BETAMETHASONE DIPROPIONATE 0.05% OINT 15 GM TUBE TOP SCH ×2 (08:28→21:21)
[2016-03-04] MEDS: ENOXAPARIN SODIUM 100 MG/ML SYRINGE SQ SCH (11:15)
--- NOTE | 2016-03-04 11:31 | HHI.PYPN ---
Subjective Remarks Patient was seen and reevaluated in the medical floor in [place]. Case was discussed with primary medical team and nursing staff. Since yesterday patient has been refusing to take by mouth medication. Evaluation patient was found sleeping, arousable, superficially cooperative. He says that he feels fine, describes mood as ok. He reports good sleep, good appetite, fair level of energy. He denies suicidal or homicidal ideation. He denies anxiety and perceptual disturbances. No paranoia, delusions, aggressive behavior, agitation , internal preoccupation observe. Patient is disoriented in time and place. He states that he has been refusing his medication because medications aren't giving him nausea. When asked about which medications given and nausea, he says I don't know. Patient is unable to clarify what time, severity, intensity of nausea and other potential side effects. Review of Systems Other No significant changes since 02/18/2016 Objective Alert: Yes [place]: Person Mood: Angry, Calm Affect: Restricted Memory Intact: Remote, Comment (impaired) Hallucinations: Other (he denies) Delusions: No Delusion Type: Other (none) Suicidal: Ideation (he denies) Homicidal: Ideation (he denies) Insight/Judgement Poor Labs Test 03/03/16 03/04/16 20:30 06:15 Urine Color YELLOW Urine Turbidity CLEAR Urine pH 5.5 Urine Specific [place] 1.016 Urine Protein NEG mg/dL Urine Glucose (UA) NEG mg/dL Urine Ketones NEG mg/dL Urine Occult Blood NEG Urine Nitrite NEG Urine Bilirubin NEG Urine Leukocyte Esterase NEG Urine RBC 0-2 /hpf Urine WBC 0-2 /hpf Urine Squamous Epithelial 0-5 /hpf Cells Urine Bacteria NONE /hpf Microscopic Urinalysis Comment CULT NOT INDICATED White Blood Count 8.2 TH/MM3 Red Blood Count 3.13 MIL/MM3 Hemoglobin 9.1 GM/DL Hematocrit 26.4 % Mean Corpuscular Volume 84.3 FL Mean Corpuscular Hemoglobin 28.9 PG Mean Corpuscular Hemoglobin 34.3 % Concent Red Cell Distribution Width 14.4 % Platelet Count 180 TH/MM3 Mean Platelet Volume 7.1 FL Neutrophils (%) (Auto) 67.6 % Lymphocytes (%) (Auto) 19.7 % Monocytes (%) (Auto) 7.9 % Eosinophils (%) (Auto) 4.4 % Basophils (%) (Auto) 0.4 % Neutrophils # (Auto) 5.6 TH/MM3 Lymphocytes # (Auto) 1.6 TH/MM3 Monocytes # (Auto) 0.6 TH/MM3 Eosinophils # (Auto) 0.4 TH/MM3 Basophils # (Auto) 0.0 TH/MM3 CBC Comment DIFF FINAL Differential Comment Prothrombin Time 12.4 SEC Prothromb Time International 1.1 RATIO Ratio Sodium Level 143 MEQ/L Potassium Level 4.6 MEQ/L Chloride Level 110 MEQ/L Carbon Dioxide Level 25.2 MEQ/L Anion Gap 8 MEQ/L Blood Urea Nitrogen 37 MG/DL Creatinine 1.90 MG/DL Estimat Glomerular Filtration 36 ML/MIN Rate Random Glucose 87 MG/DL Calcium Level 8.6 MG/DL Vitals/IOs Vital Signs Date Time Temp Pulse Resp B/P Pulse Ox O2 Delivery O2 Flow Rate FiO2 03/03/16 20:00 97.5 78 20 123/76 99 Intake and Output 03/03/16 03/03/16 03/04/16 08:00 16:00 00:00 Intake Total 0 ml 680 ml Output Total 0 ml 500 ml Balance 0 ml 180 ml Problem List: (1) Delirium secondary to multiple medical problems Assessment & Plan: Note mood symptoms, anxiety, perceptual disturbances, agitation or aggressive behavior observed. Patient denies suicidal homicidal ideation. No changes in psychotropics, continues. Since patient has a gross cognitive impairment secondary to dementia and is unable to express understanding, appreciation of his medical illnesses and a clear choice, he does not have decision-making capacity to refuse medication. Recommend to reach healthcare by proxy or decision-making subrogate in order to clarify the name of treatment-medications. Would use alternative IM/IV medication in patient continues to. ICD Code: F05 Assessment & Plan Estimated LOS: days Request HC Surrog/Guard Advoc?: Yes Ab Beard MD Mar 04, 2016 11:31
[2016-03-04 15:22] VITALS: BP 108/65; PULSE 80; RESP 14; TEMP 96.9; O2SAT 99
--- NOTE | 2016-03-04 17:40 | HHI.PR ---
Subjective Remarks Late entry. Patient evaluated early this morning. Follow-up for patient with history of bilateral CVA, and persistent cognitive deficit. Patient has no acute complaints. Objective Vitals Vital Signs Date Time Temp Pulse Resp B/P Pulse Ox O2 Delivery O2 Flow Rate FiO2 03/04/16 15:22 96.9 80 14 108/65 99 03/03/16 20:00 97.5 78 20 123/76 99 03/03/16 18:18 97.9 80 18 121/80 99 I/O 03/03/16 03/03/16 03/03/16 03/04/16 03/04/16 03/04/16 07:00 15:00 23:00 07:00 15:00 23:00 Intake Total 0 ml 680 ml 240 ml Output Total 0 ml 500 ml Balance 0 ml 180 ml 240 ml Intake Oral 0 ml 680 ml 240 ml Output Urine Total 0 ml 500 ml # Voids 0 3 3 # Bowel Movements 0 0 0 Result Diagram: 03/04/1661403/04/16614 Objective Remarks GENERAL: Well-nourished, well-developed male in no apparent distress. SKIN: Warm and dry. CARDIOVASCULAR: Regular rate and rhythm. RESPIRATORY: Limited anterior exam. No accessory muscle use. Clear to auscultation. Breath sounds equal bilaterally. GASTROINTESTINAL: Abdomen soft, non-tender, nondistended. NEUROLOGICAL: Normal speech. Procedures None Urinary Catheter: No Vascular Central Line Catheter: No A/P Problem List: (1) Cellulitis ICD Code: L03.90 Status: Resolved (2) Ischemic cardiomyopathy ICD Code: I25.5 Status: Chronic (3) Diabetes mellitus type 2 in obese ICD Code: E11.9 Status: Chronic (4) S/P BKA (below knee amputation) unilateral ICD Code: Z89.519 Status: Chronic (5) Acute metabolic encephalopathy ICD Code: G93.41 Status: Resolved (6) Bacteremia ICD Code: R78.81 Status: Resolved (7) Chronic systolic (congestive) heart failure ICD Code: I50.22 Status: Chronic (8) Venous stasis ulcer of left lower extremity ICD Code: I83.029 Status: Chronic (9) CVA (cerebral vascular accident) ICD Code: I63.9 Status: Chronic (10) Seborrheic dermatitis ICD Code: L21.9 Status: Resolved Assessment and Plan 60-year-old male with admitted 6/16 with acute cortical infarct. Patient remains with significant cognitive deficit. Bilateral cerebrovascular accident, with persistent cognitive defect -MRI showed acute cortical infarct of the right cerebral peduncle to the pelvis , left thalamus punctate area of infarct -Neurology last seen patient on 11/13/15, recommended long-term anticoagulation -Continue with Statin. -Discharged from PT and OT as he has reached maximum benefit here. -Out of bed with nursing only. Patient was counseled to not get out of bed on his own. Fall risk due to cognitive deficit -Patient has been on Coumadin, but was refusing doses and INR is subtherapeutic. I spoke with pharmacist. Patient was switched to Lovenox with renal dosing 90 mg subcutaneous daily. Ischemic Cardiomyopathy/chronic systolic CHF LVEF 35% on echo 03/2015. Denies shortness of breath. Compensated. -Continue Coreg, Imdur, enalapril. -Could consider AICD if patient is able to consent, however patient is currently unable to consent -Fluid and sodium restrictions, follow volume status. Chronic kidney disease stage 3/4. -Avoid nephrotoxins. -BMP 02/17 with acute worsening with BUN 55 and Cr 2.0, prerenal. BUN/Cr 02/20 at 41/1.60, likely baseline. Encouraged by mouth hydration although still keep within 1500 mL/day limit due to CHF. New BMP with improved BUN of 37 but acutely worse Cr of 1.90. Medication noncompliance: Patient has been refusing the majority of his medications. Discussed with Dr. Moon. CBC with normal white blood cell count. UA 03/03 negative for infection. Psychiatry was consulted. I spoke with Dr. Beard, psychiatrist she states the patient is unable to make his own medical decisions. Advises IM or IV medications if necessary since the patient is refusing the majority of his po medications although he took his Seroquel this morning. -I tried to contact the patient's sister who is the POA but was unable to reach her. I spoke with Codey Rich, the case management associate who states that she does not have a phone and he has to call the sister's neighbor in order to speak with her. He states he is supposed to be meeting with sister and patient on Monday. He states that DCF was involved and stated that sister is able to make medical decisions, but he believes that she lacks comprehension. We will have to determine if patient's sister is competent to remain the patient's POA and make the patient's medical decisions. If not he will require a guardian. Will need to discuss possibility of an NG tube for medications versus hospice. Will still refrain from restarting Coumadin at this time since the patient will not take po meds. Patient did take his Imdur last night, but if refuses, will need to start on Nitropaste. Anemia: Hemoglobin is decreased at 9.1, previously 11.8 on 01/21. Although MCV normal at 84.3. left tibial surface- with superficial wound - improving -posterior aspect with erythema avoid pressure Bacitracin bid Bacteremia with Staphylococcus hemolyticus, from wounds. Resolved -Follow blood cultures have been negative since 10/16/15 -Status post Keflex and Cipro management -Infectious disease managed patient Tinea cruris -S/p Nystatin powder Diabetic mellitus - Glucose was well controlled. All insulin discontinued. -Accu-checks discontinued as patient's blood sugar well controlled and Hgb A1c 6.9. -continue diet control Peripheral arterial disease-stable. -Continue anticoagulation Intermittent agitation- -Psychiatry reevaluated the patient on 02/17 and increased Seroquel to 50 mg in the morning and 100 mg qhs. Constipation: -Abdominal x-ray 02/16 with moderate amount of stool in the colon on the left side; minimally prominent segments of small bowel in the upper abdomen -MiraLAX, Haydee-Colace, and Lactulose scheduled. -Milk of magnesia, Dulcolax suppository as needed. DVT prophylaxis -patient on Lovenox Discharge Planning Have to have accepting SNF in order to get Medicaid, and must have someone to sign him in. Case management following. PT at rehab recommended. OT recommends 3-1 bedside commode, shower bench, and long-term care facility with restorative services. Problem Qualifiers (1) Cellulitis: (2) S/P BKA (below knee amputation) unilateral: Qualified Code: Z89.511 - S/P BKA (below knee amputation) unilateral, right (3) CVA (cerebral vascular accident): Qualified Code: I63.9 - Cerebrovascular accident (CVA), unspecified mechanism Jennifer Mae Mar 04, 2016 17:39 Claudio Moon MD Mar 04, 2016 18:34
[2016-03-04 20:00] VITALS: BP 97/67; PULSE 78; RESP 18; TEMP 97.9; O2SAT 97
[2016-03-04] MEDS: QUEtiapine FUMARATE 100 MG TAB PO SCH (21:20)
[2016-03-04] MEDS: ISOSORBIDE MONONITRATE 60 MG TAB PO SCH (21:20)
[2016-03-05] VITALS: BP 97/67; PULSE 78; RESP 18; TEMP 97.9; O2SAT 97
[2016-03-05] MEDS: BACITRACIN TOP OINT 15 GM TUBE TOP SCH ×3 (06:00→22:14)
[2016-03-05 07:21] LABS: HEMATOCRIT 27.7 % (39.0-51.0); MEAN CELL VOLUME 84.3 FL (80.0-100.0); MEAN CORPUSCULAR HEMOGLOBIN 28.2 PG (27.0-34.0); MEAN CORPUSCULAR HGB CONC 33.4 % (32.0-36.0); PLATELET COUNT 178 TH/MM3 (150-450); RED BLOOD COUNT 3.29 MIL/MM3 (4.50-5.90); RED CELL DISTRIBUTION WIDTH 14.2 % (11.6-17.2); REVIEW FLAG FINAL; WHITE BLOOD COUNT 8.2 TH/MM3 (4.0-11.0)
[2016-03-05 08:00] VITALS: BP 103/64; PULSE 80; RESP 18; TEMP 97.9; O2SAT 98
[2016-03-05] MEDS: ENALAPRIL MALEATE 2.5 MG TAB PO SCH (09:00)
[2016-03-05] MEDS: CARVEDILOL 12.5 MG TAB PO SCH ×2 (09:00→22:13)
[2016-03-05] MEDS: DOCUSATE SODIUM 50 MG/SENNA 8.6 MG TAB PO SCH ×2 (09:42→22:13)
[2016-03-05] MEDS: ATORVASTATIN 40 MG TAB PO SCH (09:42)
[2016-03-05] MEDS: LACTULOSE SYRUP 20 GM/30 ML CUP PO SCH (09:42)
[2016-03-05] MEDS: QUEtiapine FUMARATE 25 MG TAB PO SCH (09:42)
[2016-03-05] MEDS: POLYETHYLENE GLYCOL 17 GM PKG PO SCH (09:42)
[2016-03-05] MEDS: EUCERIN CREAM 120 GM JAR TOPICAL SCH ×2 (09:43→22:13)
[2016-03-05] MEDS: BETAMETHASONE DIPROPIONATE 0.05% OINT 15 GM TUBE TOP SCH ×2 (09:44→21:00)
[2016-03-05] MEDS: ENOXAPARIN SODIUM 100 MG/ML SYRINGE SQ SCH (14:51)
--- NOTE | 2016-03-05 15:15 | HHI.PR ---
Subjective Remarks Follow-up for cognitive deficit s/p CVA, CKD, medication non-compliance. No acute complaints. No change in clinical status. Objective Vitals Vital Signs Date Time Temp Pulse Resp B/P Pulse Ox O2 Delivery O2 Flow Rate FiO2 03/05/16 08:00 97.9 80 18 103/64 98 03/05/16 00:00 97.9 78 18 97/67 97 03/04/16 20:00 97.9 78 18 97/67 97 03/04/16 15:22 96.9 80 14 108/65 99 I/O 03/04/16 03/04/16 03/04/16 03/05/16 03/05/16 03/05/16 07:00 15:00 23:00 07:00 15:00 23:00 Intake Total 240 ml 800 ml 240 ml Output Total 750 ml 400 ml Balance 240 ml 800 ml -510 ml -400 ml Intake Oral 240 ml 800 ml 240 ml Output Urine Total 750 ml 400 ml # Voids 3 3 3 # Bowel Movements 0 1 0 Result Diagram: 03/05/16 0537 03/05/16 0537 Objective Remarks GENERAL: Well-nourished, well-developed male in no apparent distress. SKIN: Warm and dry. CARDIOVASCULAR: Regular rate and rhythm. RESPIRATORY: Limited anterior exam. No accessory muscle use. Clear to auscultation. Breath sounds equal bilaterally. RR normal. GASTROINTESTINAL: Abdomen soft, non-tender, nondistended. NEUROLOGICAL: Does not speak much. Procedures None Urinary Catheter: No Vascular Central Line Catheter: No A/P Problem List: (1) Cellulitis ICD Code: L03.90 Status: Resolved (2) Ischemic cardiomyopathy ICD Code: I25.5 Status: Chronic (3) Diabetes mellitus type 2 in obese ICD Code: E11.9 Status: Chronic (4) S/P BKA (below knee amputation) unilateral ICD Code: Z89.519 Status: Chronic (5) Acute metabolic encephalopathy ICD Code: G93.41 Status: Resolved (6) Bacteremia ICD Code: R78.81 Status: Resolved (7) Chronic systolic (congestive) heart failure ICD Code: I50.22 Status: Chronic (8) Venous stasis ulcer of left lower extremity ICD Code: I83.029 Status: Chronic (9) CVA (cerebral vascular accident) ICD Code: I63.9 Status: Chronic (10) Seborrheic dermatitis ICD Code: L21.9 Status: Resolved (11) Anemia ICD Code: D64.9 Status: Chronic Assessment and Plan 60-year-old male with admitted 10/14 with acute cortical infarct. Patient remains with significant cognitive deficit. Bilateral cerebrovascular accident, with persistent cognitive defect -MRI showed acute cortical infarct of the right cerebral peduncle to the pelvis , left thalamus punctate area of infarct -Neurology last seen patient on 11/13/15, recommended long-term anticoagulation -Continue with Statin. -Discharged from PT and OT as he has reached maximum benefit here. -Out of bed with nursing only. Patient was counseled to not get out of bed on his own. Fall risk due to cognitive deficit -Patient was on Coumadin, but was refusing doses (c/o nausea, vomiting) and INR was subtherapeutic. I spoke with pharmacist. Patient was switched to Lovenox with renal dosing 90 mg subcutaneous daily. Pharmacy consulted to monitor renal function. Ischemic Cardiomyopathy/chronic systolic CHF LVEF 35% on echo 03/2015. Denies shortness of breath. Compensated. -Continue Coreg, Imdur, enalapril. -Could consider AICD if patient is able to consent, however patient is currently unable to consent -Fluid and sodium restrictions, follow volume status. Chronic kidney disease stage 3/4. -Avoid nephrotoxins. -BMP 02/17 with acute worsening with BUN 55 and Cr 2.0, prerenal. Improved but then worsened again with Cr 1.9 on 03/04-->improved 1.8 today. Medication noncompliance: Patient was refusing the majority of his medications, but took most of them today including the Lovenox. Will refrain from restarting Coumadin as patient reported nausea vomiting although he reported the same adverse reaction to laxatives. If Coumadin is restarted, will wait until compliance with medications including Lovenox is consistently occurring. -Psychiatry was consulted. I spoke with Dr. Beard, psychiatrist who states the patient is unable to make his own medical decisions. Advises IM or IV medications if necessary. -I tried to contact the patient's sister who is the POA but was unable to reach her. I spoke with Codey Rich, the binder caser who states that she does not have a phone and he has to call the sister's neighbor in order to speak with her. He states he is supposed to be meeting with sister and patient on Monday. He states that DCF was involved and stated that sister is able to make medical decisions, but he believes that she lacks comprehension. We will have to determine if patient's sister is competent to remain the patient's POA and make the patient's medical decisions. If not he will require a guardian. Will need to discuss possibility of an NG tube for medications versus hospice if he again becomes non-compliant. Anemia: Hemoglobin is decreased at 9.1-->9.3 today, previously 11.8 on 01/21. MCV normal. Likely anemia of chronic disease due to CKD. -Although unlikely to be iron deficiency could be early stage and due to acute worsening will order iron studies as well as TSH. left tibial surface- with superficial wound - improving -posterior aspect with erythema avoid pressure Bacitracin bid Bacteremia with Staphylococcus hemolyticus, from wounds. Resolved -Follow blood cultures have been negative since 10/16/15 -Status post Keflex and Cipro management -Infectious disease managed patient Tinea cruris -S/p Nystatin powder Diabetic mellitus - Glucose was well controlled. All insulin discontinued. -Accu-checks discontinued as patient's blood sugar well controlled and Hgb A1c 6.9. -continue diet control Peripheral arterial disease-stable. -Continue anticoagulation Intermittent agitation- -Psychiatry reevaluated the patient on 02/17 and increased Seroquel to 50 mg in the morning and 100 mg qhs. Constipation: -Abdominal x-ray 02/16 with moderate amount of stool in the colon on the left side; minimally prominent segments of small bowel in the upper abdomen -MiraLAX, Haydee-Colace, and Lactulose scheduled. -Milk of magnesia, Dulcolax suppository as needed. DVT prophylaxis -patient on Lovenox Discharge Planning Have to have accepting SNF in order to get Medicaid, and must have someone to sign him in. Case management following. PT at rehab recommended. OT recommends 3-1 bedside commode, shower bench, and long-term care facility with restorative services. Problem Qualifiers (1) Cellulitis: (2) S/P BKA (below knee amputation) unilateral: Qualified Code: Z89.511 - S/P BKA (below knee amputation) unilateral, right (3) CVA (cerebral vascular accident): Qualified Code: I63.9 - Cerebrovascular accident (CVA), unspecified mechanism Jennifer Mae Mar 05, 2016 15:15
[2016-03-05 20:00] VITALS: BP 118/78; PULSE 84; RESP 18; TEMP 98.1; O2SAT 84
[2016-03-05 21:08] LABS: FERRITIN 345 NG/ML (26-388); TRANSFERRIN IRON PROFILE 166 MG/DL (200-360)
[2016-03-05] MEDS: QUEtiapine FUMARATE 100 MG TAB PO SCH (22:12)
[2016-03-05] MEDS: ISOSORBIDE MONONITRATE 60 MG TAB PO SCH (22:13)
[2016-03-06] MEDS: BACITRACIN TOP OINT 15 GM TUBE TOP SCH ×3 (06:00→20:20)
[2016-03-06 08:00] VITALS: BP 126/88; PULSE 68; RESP 17; TEMP 97; O2SAT 94
[2016-03-06] MEDS: LACTULOSE SYRUP 20 GM/30 ML CUP PO SCH (08:29)
[2016-03-06] MEDS: POLYETHYLENE GLYCOL 17 GM PKG PO SCH (08:29)
[2016-03-06] MEDS: DOCUSATE SODIUM 50 MG/SENNA 8.6 MG TAB PO SCH ×2 (08:30→20:19)
[2016-03-06] MEDS: ENALAPRIL MALEATE 2.5 MG TAB PO SCH (08:30)
[2016-03-06] MEDS: QUEtiapine FUMARATE 25 MG TAB PO SCH (08:30)
[2016-03-06] MEDS: CARVEDILOL 12.5 MG TAB PO SCH ×2 (08:31→20:19)
[2016-03-06] MEDS: ATORVASTATIN 40 MG TAB PO SCH (08:31)
[2016-03-06] MEDS: EUCERIN CREAM 120 GM JAR TOPICAL SCH ×2 (08:32→20:20)
[2016-03-06] MEDS: FERROUS SULFATE 325 MG (65 MG ELEMENTAL IRON) TAB PO SCH (08:37)
[2016-03-06] MEDS: BETAMETHASONE DIPROPIONATE 0.05% OINT 15 GM TUBE TOP SCH ×2 (09:00→20:21)
--- NOTE | 2016-03-06 11:40 | HHI.PR ---
Subjective Remarks Follow-up for cognitive deficit status post bilateral CVA, CKD, medication non- compliance. No acute complaints. No change in clinical status. Objective Vitals Vital Signs Date Time Temp Pulse Resp B/P Pulse Ox O2 Delivery O2 Flow Rate FiO2 03/06/16 08:00 97.0 68 17 126/88 94 03/05/16 20:00 98.1 84 18 118/78 84 I/O 03/05/16 03/05/16 03/05/16 03/06/16 03/06/16 03/06/16 07:00 15:00 23:00 07:00 15:00 23:00 Intake Total 240 ml Output Total 750 ml 400 ml Balance -510 ml -400 ml Intake Oral 240 ml Output Urine Total 750 ml 400 ml # Voids 3 # Bowel Movements 0 Result Diagram: 03/05/16 0537 03/06/16 0748 Imaging Last Impressions Head CT 02/26/16 0000 Signed Impressions: Service Date/Time: Friday, February 26, 2016 20:28 - CONCLUSION: No bleed or other acute intracranial abnormality demonstrated. Old ischemic changes. Camacho Lyon MD Abdomen X-Ray 02/17/16 0000 Signed Impressions: Service Date/Time: Wednesday, February 17, 2016 12:13 - CONCLUSION: Moderate amount stool in the colon especially on the left side. There are some minimally prominent segments of small bowel in the upper abdomen. Camacho Santana MD Chest X-Ray 11/06/15 0000 Signed Impressions: Service Date/Time: Friday, November 06, 2015 11:35 - CONCLUSION: Compensated cardiomegaly, history of bypass otherwise negative. Superior most sternal wire is fractured. Didier Clay MD FACR Liver Ultrasound 10/30/15 0000 Signed Impressions: Service Date/Time: Friday, October 30, 2015 17:29 - CONCLUSION: 1. Cholelithiasis with probable gallbladder sludge and mild gallbladder distention. 2. Splenomegaly. Sameer Alexandra MD Modified Barium Swallow 10/27/15 0000 Signed Impressions: Service Date/Time: Tuesday, October 27, 2015 00:00 - CONCLUSION: Negative for penetration or aspiration. Please see speech pathology report. Tai Cohen MD Brain MRI 10/22/15 0000 Signed Impressions: Service Date/Time: September 14:38 - CONCLUSION: 1. No significant interval change is identified. There is stable restricted diffusion in the left basal ganglia representing an area of recent ischemia. There are no findings to indicate hemorrhagic transformation. The previously documented signal change within the right cerebral peduncle has nearly normalized. 2. Stable chronic white matter changes. Camacho Culp MD Neck Magnetic Resonance Angiography 10/21/15 0000 Signed Impressions: Service Date/Time: Wednesday, October 21, 2015 12:52 - CONCLUSION: . 1. Unremarkable MRA of the carotid arteries bilaterally. 2. Nonspecific possible collateral vessels in the soft tissues posterior to the right vertebral artery. The right verbal artery appears to be patent. If clinically indicated, a CTA could be performed for further evaluation. Abiodun Hall MD Head Magnetic Resonance Angiography 10/21/15 0000 Signed Impressions: Service Date/Time: Wednesday, October 21, 2015 12:52 - CONCLUSION: Unremarkable MRA of the brain. Abiodun Hall MD Objective Remarks GENERAL: Well-nourished, well-developed male in no apparent distress. SKIN: Warm and dry. L tibial surface healed with large area of pink scarring. CARDIOVASCULAR: Regular rate and rhythm. RESPIRATORY: Limited anterior exam. No accessory muscle use. Clear to auscultation. Breath sounds equal bilaterally. RR normal. GASTROINTESTINAL: Abdomen soft, non-tender, nondistended. MUSCULOSKELETAL: Right BKA without acute abnormality. NEUROLOGICAL: Awake and alert. Procedures None Urinary Catheter: No Vascular Central Line Catheter: No A/P Problem List: (1) Cellulitis ICD Code: L03.90 Status: Resolved (2) Ischemic cardiomyopathy ICD Code: I25.5 Status: Chronic (3) Diabetes mellitus type 2 in obese ICD Code: E11.9 Status: Chronic (4) S/P BKA (below knee amputation) unilateral ICD Code: Z89.519 Status: Chronic (5) Acute metabolic encephalopathy ICD Code: G93.41 Status: Resolved (6) Bacteremia ICD Code: R78.81 Status: Resolved (7) Chronic systolic (congestive) heart failure ICD Code: I50.22 Status: Chronic (8) Venous stasis ulcer of left lower extremity ICD Code: I83.029 Status: Chronic (9) CVA (cerebral vascular accident) ICD Code: I63.9 Status: Chronic (10) Seborrheic dermatitis ICD Code: L21.9 Status: Resolved (11) Anemia ICD Code: D64.9 Status: Chronic Assessment and Plan 60-year-old male with admitted 10/14 with acute cortical infarct. Patient remains with significant cognitive deficit. Bilateral cerebrovascular accident, with persistent cognitive defect -MRI showed acute cortical infarct of the right cerebral peduncle to the pelvis , left thalamus punctate area of infarct -Neurology last seen patient on 11/13/15, recommended long-term anticoagulation -Continue with Statin. -Discharged from PT and OT as he has reached maximum benefit here. -Out of bed with nursing only. Patient was counseled to not get out of bed on his own. Fall risk due to cognitive deficit -Patient was on Coumadin, but was refusing doses (c/o nausea, vomiting) and INR was subtherapeutic. I spoke with pharmacist. Patient was switched to Lovenox with renal dosing 90 mg subcutaneous daily. Pharmacy consulted to monitor renal function. Ischemic Cardiomyopathy/chronic systolic CHF LVEF 35% on echo 03/2015. Denies shortness of breath. Compensated. -Continue Coreg, Imdur, enalapril. -Could consider AICD if patient is able to consent, however patient is currently unable to consent -Fluid and sodium restrictions, follow volume status. Chronic kidney disease stage 3/4. -Avoid nephrotoxins. -BMP 02/17 with acute worsening with BUN 55 and Cr 2.0, prerenal. Improved but then worsened again with Cr 1.9 on 03/04-->stable at 1.8 today. Medication noncompliance: Patient was refusing the majority of his medications, so psychiatry was consulted. -I spoke with Dr. Beard, psychiatrist who states the patient is unable to make his own medical decisions. Advises IM or IV medications if necessary. -Patient has been compliant with his medications today aside from Lovenox. -Will refrain from restarting Coumadin as patient reported nausea vomiting although he reported the same adverse reaction to laxatives. If Coumadin is restarted, will wait until compliance with medications including Lovenox is consistently occurring. -I tried to contact the patient's sister who is the POA but was unable to reach her. I spoke with Codey Rich, the corrections caseworker who states that she does not have a phone and he has to call the sister's neighbor in order to speak with her. He states he is supposed to be meeting with sister and patient on Wednesday 03/07. He states that DCF was involved and stated that sister is able to make medical decisions, but he believes that she lacks comprehension. We will have to determine if patient's sister is competent to remain the patient's POA and make the patient's medical decisions. If not he will require a guardian. Will need to discuss possibility of an NG tube for medications versus hospice if he again becomes non-compliant. Anemia: Hemoglobin decreased to 9.3, previously 11.8 on 01/21. MCV normal. Decreased RBC count. RDW normal. Likely anemia of chronic disease due to CKD. -Iron studies reviewed with low Iron of 45, TIBC of 232, and % saturation of 19.4, with normal ferritin 345. This confirms ACD. Discussed with Dr. Moon who believes there may be an iron deficiency component as well. Patient to be started on Ferrous sulfate 325 mg by mouth daily. -Hemoccult ordered. left tibial surface- with superficial wound - improving -posterior aspect with erythema avoid pressure Bacitracin bid Bacteremia with Staphylococcus hemolyticus, from wounds. Resolved -Follow blood cultures have been negative since 10/16/15 -Status post Keflex and Cipro management -Infectious disease managed patient Tinea cruris -S/p Nystatin powder Diabetic mellitus - Glucose was well controlled. All insulin discontinued. -Accu-checks discontinued as patient's blood sugar well controlled and Hgb A1c 6.9. -continue diet control Peripheral arterial disease-stable. -Continue anticoagulation Intermittent agitation- -Psychiatry reevaluated the patient on 02/17 and increased Seroquel to 50 mg in the morning and 100 mg qhs. Constipation: -Abdominal x-ray 02/16 with moderate amount of stool in the colon on the left side; minimally prominent segments of small bowel in the upper abdomen -MiraLAX, Haydee-Colace, and Lactulose scheduled. -Milk of magnesia, Dulcolax suppository as needed. DVT prophylaxis -patient on Lovenox Discharge Planning Have to have accepting SNF in order to get Medicaid, and must have someone to sign him in. Case management following. PT at rehab recommended. OT recommends 3-1 bedside commode, shower bench, and long-term care facility with restorative services. Problem Qualifiers (1) Cellulitis: (2) S/P BKA (below knee amputation) unilateral: Qualified Code: Z89.511 - S/P BKA (below knee amputation) unilateral, right (3) CVA (cerebral vascular accident): Qualified Code: I63.9 - Cerebrovascular accident (CVA), unspecified mechanism Jennifer Mae Mar 06, 2016 11:40
[2016-03-06] MEDS: ENOXAPARIN SODIUM 100 MG/ML SYRINGE SQ SCH (12:00)
[2016-03-06 20:00] VITALS: BP 132/79; PULSE 69; RESP 18; TEMP 96.5; O2SAT 98
[2016-03-06] MEDS: QUEtiapine FUMARATE 100 MG TAB PO SCH (20:19)
[2016-03-06] MEDS: ISOSORBIDE MONONITRATE 60 MG TAB PO SCH (20:19)
[2016-03-07] VITALS: BP 128/82; PULSE 72; RESP 18; TEMP 97.8; O2SAT 97
[2016-03-07] MEDS: BACITRACIN TOP OINT 15 GM TUBE TOP SCH ×3 (06:27→22:20)
[2016-03-07 07:03] LABS: PROTHROMBIN TIME - PATIENT 11.4 SEC (9.8-11.6)
[2016-03-07] MEDS: EUCERIN CREAM 120 GM JAR TOPICAL SCH ×2 (09:00→22:20)
[2016-03-07] MEDS: DOCUSATE SODIUM 50 MG/SENNA 8.6 MG TAB PO SCH ×2 (09:00→22:19)
[2016-03-07] MEDS: LACTULOSE SYRUP 20 GM/30 ML CUP PO SCH (09:27)
[2016-03-07] MEDS: CARVEDILOL 12.5 MG TAB PO SCH ×2 (09:27→22:20)
[2016-03-07] MEDS: FERROUS SULFATE 325 MG (65 MG ELEMENTAL IRON) TAB PO SCH (09:27)
[2016-03-07] MEDS: ENALAPRIL MALEATE 2.5 MG TAB PO SCH (09:27)
[2016-03-07] MEDS: ATORVASTATIN 40 MG TAB PO SCH (09:27)
[2016-03-07] MEDS: QUEtiapine FUMARATE 25 MG TAB PO SCH (09:27)
[2016-03-07] MEDS: POLYETHYLENE GLYCOL 17 GM PKG PO SCH (09:29)
[2016-03-07 10:11] VITALS: BP 136/82; PULSE 75; RESP 15; TEMP 98.1; O2SAT 97
[2016-03-07] MEDS: ENOXAPARIN SODIUM 100 MG/ML SYRINGE SQ SCH (11:06)
[2016-03-07] MEDS ORDERED: LORazepam 2 MG/ML VIAL IV PUSH PRN (14:00)
--- NOTE | 2016-03-07 14:04 | HHI.PR ---
Subjective Remarks No acute complaints. Patient was trying to get out of the bed prior to my evaluation. I was informed By RN and CHARGEMASTER ANALYST that he keeps continuing to do this. When I asked the patient why he is trying to get up he says there is something interesting outside. Objective Vitals Vital Signs Date Time Temp Pulse Resp B/P Pulse Ox O2 Delivery O2 Flow Rate FiO2 03/07/16 10:11 98.1 75 15 136/82 97 03/07/16 00:00 97.8 72 18 128/82 97 03/06/16 20:00 96.5 69 18 132/79 98 Result Diagram: 03/05/16 0537 03/07/16 0615 Imaging Last Impressions Head CT 02/26/16 0000 Signed Impressions: Service Date/Time: Friday, February 26, 2016 20:28 - CONCLUSION: No bleed or other acute intracranial abnormality demonstrated. Old ischemic changes. Camacho Lyon MD Abdomen X-Ray 02/17/16 0000 Signed Impressions: Service Date/Time: Wednesday, February 17, 2016 12:13 - CONCLUSION: Moderate amount stool in the colon especially on the left side. There are some minimally prominent segments of small bowel in the upper abdomen. Camacho Santana MD Chest X-Ray 11/06/15 0000 Signed Impressions: Service Date/Time: Friday, November 06, 2015 11:35 - CONCLUSION: Compensated cardiomegaly, history of bypass otherwise negative. Superior most sternal wire is fractured. Didier Clay MD FACR Liver Ultrasound 10/30/15 0000 Signed Impressions: Service Date/Time: Friday, October 30, 2015 17:29 - CONCLUSION: 1. Cholelithiasis with probable gallbladder sludge and mild gallbladder distention. 2. Splenomegaly. Sameer Alexandra MD Modified Barium Swallow 10/27/15 0000 Signed Impressions: Service Date/Time: Tuesday, October 27, 2015 00:00 - CONCLUSION: Negative for penetration or aspiration. Please see speech pathology report. Tai Cohen MD Brain MRI 10/22/15 0000 Signed Impressions: Service Date/Time: September 14:38 - CONCLUSION: 1. No significant interval change is identified. There is stable restricted diffusion in the left basal ganglia representing an area of recent ischemia. There are no findings to indicate hemorrhagic transformation. The previously documented signal change within the right cerebral peduncle has nearly normalized. 2. Stable chronic white matter changes. Camacho Culp MD Neck Magnetic Resonance Angiography 10/21/15 0000 Signed Impressions: Service Date/Time: Wednesday, October 21, 2015 12:52 - CONCLUSION: . 1. Unremarkable MRA of the carotid arteries bilaterally. 2. Nonspecific possible collateral vessels in the soft tissues posterior to the right vertebral artery. The right verbal artery appears to be patent. If clinically indicated, a CTA could be performed for further evaluation. Abiodun Hall MD Head Magnetic Resonance Angiography 10/21/15 0000 Signed Impressions: Service Date/Time: Wednesday, October 21, 2015 12:52 - CONCLUSION: Unremarkable MRA of the brain. Abiodun Hall MD Objective Remarks GENERAL: Well-nourished, well-developed male in no apparent distress. SKIN: Warm and dry. CARDIOVASCULAR: Regular rate and rhythm. RESPIRATORY: Limited anterior exam. No accessory muscle use. Clear to auscultation. Breath sounds equal bilaterally. RR normal. GASTROINTESTINAL: Abdomen soft, non-tender, nondistended. NEUROLOGICAL: Awake and alert. Procedures None Urinary Catheter: No Vascular Central Line Catheter: No A/P Problem List: (1) Cellulitis ICD Code: L03.90 Status: Resolved (2) Ischemic cardiomyopathy ICD Code: I25.5 Status: Chronic (3) Diabetes mellitus type 2 in obese ICD Code: E11.9 Status: Chronic (4) S/P BKA (below knee amputation) unilateral ICD Code: Z89.519 Status: Chronic (5) Acute metabolic encephalopathy ICD Code: G93.41 Status: Resolved (6) Bacteremia ICD Code: R78.81 Status: Resolved (7) Chronic systolic (congestive) heart failure ICD Code: I50.22 Status: Chronic (8) Venous stasis ulcer of left lower extremity ICD Code: I83.029 Status: Chronic (9) CVA (cerebral vascular accident) ICD Code: I63.9 Status: Chronic (10) Seborrheic dermatitis ICD Code: L21.9 Status: Resolved (11) Anemia ICD Code: D64.9 Status: Chronic Assessment and Plan 60-year-old male with admitted 10/14 with acute cortical infarct. Patient remains with significant cognitive deficit. Bilateral cerebrovascular accident, with persistent cognitive defect -MRI showed acute cortical infarct of the right cerebral peduncle to the pelvis , left thalamus punctate area of infarct -Neurology last seen patient on 11/13/15, recommended long-term anticoagulation -Continue with Statin. -Discharged from PT and OT as he has reached maximum benefit here. -Out of bed with nursing only. Patient was counseled to not get out of bed on his own. Fall risk due to cognitive deficit -Patient was on Coumadin, but was refusing doses (c/o nausea, vomiting) and INR was subtherapeutic. I spoke with pharmacist. Patient was switched to Lovenox with renal dosing 90 mg subcutaneous daily. Pharmacy consulted to monitor renal function. Ischemic Cardiomyopathy/chronic systolic CHF LVEF 35% on echo 03/2015. Denies shortness of breath. Compensated. -Continue Coreg, Imdur, enalapril. -Could consider AICD if patient is able to consent, however patient is currently unable to consent -Fluid and sodium restrictions, follow volume status. Chronic kidney disease stage 3/4. -Avoid nephrotoxins. -BMP 02/17 with acute worsening with BUN 55 and Cr 2.0, prerenal. Improved but then worsened again with Cr 1.9 on 03/04-->BUN/Cr improved to 33/1.8 today. Medication noncompliance: Patient was refusing the majority of his medications, so psychiatry was consulted. -I spoke with Dr. Beard, psychiatrist who states the patient is unable to make his own medical decisions. Advises IM or IV medications if necessary. -Patient has been compliant with his medications today including Lovenox. -Dr. Moon restarted warfarin today, pharmacy consulted. -I tried to contact the patient's sister who is the POA but was unable to reach her. I spoke with Codey Rich, the manager rn case who states that she does not have a phone and he has to call the sister's neighbor in order to speak with her. He states he is supposed to be meeting with sister and patient on Wednesday 03/07. He states that DCF was involved and stated that sister is able to make medical decisions, but he believes that she lacks comprehension. We will have to determine if patient's sister is competent to remain the patient's POA and make the patient's medical decisions. If not he will require a guardian. Will need to discuss possibility of an NG tube for medications versus hospice if he again becomes non-compliant. Anemia: Hemoglobin had decreased to 9.3, previously 11.8 on 01/21. MCV normal. Decreased RBC count. RDW normal. Likely anemia of chronic disease due to CKD. -Iron studies reviewed with low Iron of 45, TIBC of 232, and % saturation of 19.4, with normal ferritin 345. This confirms ACD. Discussed with Dr. Moon who believes there may be an iron deficiency component as well. Patient to be started on Ferrous sulfate 325 mg by mouth daily. -Hemoccult ordered but never obtained, but hemoglobin improved to 10.1 today. left tibial surface- with superficial wound - improving -posterior aspect with erythema avoid pressure Bacitracin bid Bacteremia with Staphylococcus hemolyticus, from wounds. Resolved -Follow blood cultures have been negative since 10/16/15 -Status post Keflex and Cipro management -Infectious disease managed patient Tinea cruris -S/p Nystatin powder Diabetic mellitus - Glucose was well controlled. All insulin discontinued. -Accu-checks discontinued as patient's blood sugar well controlled and Hgb A1c 6.9. -continue diet control Peripheral arterial disease-stable. -Continue anticoagulation Intermittent agitation- -Psychiatry reevaluated the patient on 02/17 and increased Seroquel to 50 mg in the morning and 100 mg qhs. -Per RN, patient has been trying to get up OOB by himself multiple times which I have witnessed. Molina edmondson ordered. -Dr. Moon has ordered Ativan only as needed. Will avoid Haldol use at this time as patient is already on Seroquel. -CBC, CMP, UA ordered to rule out infection. WBC normal. Electrolytes normal. LFTs normal. UA pending. Constipation: -Abdominal x-ray 02/16 with moderate amount of stool in the colon on the left side; minimally prominent segments of small bowel in the upper abdomen -MiraLAX, Haydee-Colace, and Lactulose scheduled. -Milk of magnesia, Dulcolax suppository as needed. DVT prophylaxis -patient on Lovenox Discharge Planning Have to have accepting SNF in order to get Medicaid, and must have someone to sign him in. Case management following. PT at rehab recommended. OT recommends 3-1 bedside commode, shower bench, and long-term care facility with restorative services. Problem Qualifiers (1) Cellulitis: (2) S/P BKA (below knee amputation) unilateral: Qualified Code: Z89.511 - S/P BKA (below knee amputation) unilateral, right (3) CVA (cerebral vascular accident): Qualified Code: I63.9 - Cerebrovascular accident (CVA), unspecified mechanism Jennifer Mae Mar 07, 2016 14:04
[2016-03-07 14:54] LABS: CHLORIDE 109 MEQ/L (98-107); POTASSIUM 4.9 MEQ/L (3.5-5.1); SODIUM (NA) 142 MEQ/L (136-145)
[2016-03-07 14:58] LABS: ANION GAP 7 MEQ/L (5-15); BICARBONATE 26.5 MEQ/L (21.0-32.0); BLOOD UREA NITROGEN 33 MG/DL (7-18)
[2016-03-07 15:00] LABS: ALT (GPT) 16 U/L (12-78); AUTOMATED NEUTROPHIL # 6.2 TH/MM3 (1.8-7.7); BASOPHIL % 0.4 % (0.0-2.0); EOSINOPHIL # 0.3 TH/MM3 (0-0.4); EOSINOPHIL % 3.4 % (0.0-4.0); HEMATOCRIT 29.6 % (39.0-51.0); HEMO FLAGS DIFF FINAL; LYMPH % 13.1 % (9.0-44.0); LYMPHOCYTE # 1.1 TH/MM3 (1.0-4.8); MEAN CELL VOLUME 83.5 FL (80.0-100.0); MEAN CORPUSCULAR HEMOGLOBIN 28.5 PG (27.0-34.0); MEAN CORPUSCULAR HGB CONC 34.1 % (32.0-36.0); MONO % 6.9 % (0.0-8.0); NEUT % 76.2 % (16.0-70.0); PLATELET COUNT 201 TH/MM3 (150-450); RED BLOOD COUNT 3.55 MIL/MM3 (4.50-5.90); RED CELL DISTRIBUTION WIDTH 14.1 % (11.6-17.2); WHITE BLOOD COUNT 8.2 TH/MM3 (4.0-11.0)
[2016-03-07 15:01] LABS: AST (GOT) 15 U/L (15-37); GLOMERULAR FILTRATION RATE 39 ML/MIN (>89)
[2016-03-07 15:02] LABS: TOTAL BILIRUBIN ADULT 0.5 MG/DL (0.2-1.0)
[2016-03-07 15:04] LABS: ALKALINE PHOSPHATASE 94 U/L (45-117)
[2016-03-07] MEDS: WARFARIN SOD 5 MG TAB PO SCH (16:14)
[2016-03-07] MEDS: BETAMETHASONE DIPROPIONATE 0.05% OINT 15 GM TUBE TOP SCH ×2 (16:30→21:00)
[2016-03-07 17:16] LABS: BLOOD, URINE NEG (NEG); GLUCOSE,URINE NEG (NEG); KETONE, URINE NEG (NEG); NITRITE,URINE NEG (NEG); PH, URINE 5.5 (5.0-8.5)
[2016-03-07 17:20] LABS: METHOD OF COLLECTION CLEAN CATCH; URINE COLOR YELLOW (YELLW/STRAW)
[2016-03-07 17:46] LABS: BACTERIA, URINE MOD /hpf; COMMENT (UR) CULTURE INDICATED; COMMENT2 (UR) MUCOUS PRESENT; CULTURE IF INDICATED CULTURE INDICATED; HYALINE CAST, URINE 0-2 /lpf (RARE); RBC, URINE 0-3 /hpf (0-3); URIC ACID CRYSTALS, URINE MOD /hpf
[2016-03-07 20:00] VITALS: BP 133/77; PULSE 80; RESP 20; TEMP 96; O2SAT 96
[2016-03-07] MEDS: ISOSORBIDE MONONITRATE 60 MG TAB PO SCH (22:19)
[2016-03-07] MEDS: QUEtiapine FUMARATE 100 MG TAB PO SCH (22:20)
[2016-03-08 06:42] LABS: INTERNATIONAL NORMALIZED RATIO 1.1 RATIO
[2016-03-08] MEDS: BACITRACIN TOP OINT 15 GM TUBE TOP SCH ×3 (06:57→22:10)
--- NOTE | 2016-03-08 08:39 | HHI.PR ---
Subjective Remarks Patient seen and examined today. Patient not indicate any new complaints. No change in clinical status. Objective Vitals Vital Signs Date Time Temp Pulse Resp B/P Pulse Ox O2 Delivery O2 Flow Rate FiO2 03/07/16 20:00 96.0 80 20 133/77 96 03/07/16 10:11 98.1 75 15 136/82 97 I/O 03/07/16 03/07/16 03/07/16 03/08/16 03/08/16 03/08/16 07:00 15:00 23:00 07:00 15:00 23:00 Intake Total 60 ml Output Total 300 ml Balance -240 ml Intake Oral 60 ml Output Urine Total 300 ml # Voids 1 # Bowel Movements 0 Result Diagram: 03/07/16 1437 03/08/16 0525 Objective Remarks GENERAL: Well-developed, well-nourished, in no acute distress. alert and orientated to person HEENT: Head is normocephalic without any lesions or masses noted. Facial features are symmetric. Extraocular muscles are intact. Conjunctivae were clear. NECK: Supple without any masses. Trachea midline no deviation. No JVD, CARDIAC: Regular rhythm, regular rate. S1/S2 are heard. No murmurs gallops or rubs. LUNGS: Clear to auscultation bilaterally. No wheeze, rhonchi or rales. No use of accessory muscles on inspiration or expiration. ABDOMEN: Soft, nontender. Nondistended. Bowel sounds heard in all 4 quadrants. No organomegaly or masses. Negative rebound, negative guarding. Patient has erythema in inguinal folds EXTREMITIES: No edema, pulses are equal bilaterally. No cyanosis or clubbing. Right [id number] amputation. Left foot and Multi-Podus boot, patient does have multiple skin tears, dry skin flaking off. NEUROLOGY: Mood and affect appear appropriate. Cranial nerves II through XII grossly intact. Moving all extremities, speech is clear Procedures None Urinary Catheter: No Vascular Central Line Catheter: No A/P Assessment and Plan 60-year-old male with admitted 10/14 with acute cortical infarct. Patient remains with significant cognitive deficit. Bilateral cerebrovascular accident, with persistent cognitive defect -MRI showed acute cortical infarct of the right cerebral peduncle to the pelvis , left thalamus punctate area of infarct -Neurology last seen patient on 11/13/15, recommended long-term anticoagulation -Continue with Statin. -Continue Coumadin 5 mg daily and monitor INR/PT keep INR between 2 and 3, pharmacy consult for dosing. INR 1.3, patient started on Lovenox by pharmacy -Reconsulted PT/OT, patient will require intermittent therapy while he remains in the hospital so he does not decompensate -Out of bed with nursing only. Patient was counseled to not get out of bed on his own. Fall risk due to cognitive deficit Ischemic Cardiomyopathy/chronic systolic CHF LVEF 35% on echo 03/2015. Denies shortness of breath. Compensated. -Continue Coreg, Imdur, enalapril. -Could consider AICD if patient is able to consent, however patient is currently unable to consent -Fluid and sodium restrictions, follow volume status. 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 -Avoid nephrotoxins. -Monitor BMP intermittently left tibial surface- with superficial wound - improving -posterior aspect with erythema avoid pressure Bacitracin bid Medication noncompliance, intermittent Case discussed with psychiatry, case management We'll discuss with nursing staff, this has been a long-term issue and nursing staff has been able to put his medications in applesauce and orange juice, and the patient takes the medications when done that way. Patient did take all his medications yesterday. Anemia with iron deficiency, hemoglobin stable since admission Iron studies indicate iron 45, TIBC 232, ferritin 345 Patient started on ferrous sulfate 325 mg daily Continue monitor CBC intermittently Bacteremia with Staphylococcus hemolyticus, from wounds. Resolved -Follow blood cultures have been negative since 10/16/15 -Status post Keflex and Cipro management -Infectious disease managed patient Diabetic mellitus - Glucose was well controlled. All insulin discontinued. -accu-checks discontinued as patient's blood sugar well controlled and Hgb A1c 6.9. -continue diet control Peripheral arterial disease-stable. -Continue anticoagulation Intermittent agitation- workup done to rule out infectious source causing change in mentation -Continue Seroquel 50 mg in the morning and 100 mg at night -Psychiatry reevaluated the patient on 02/17 -Workup negative thus far except for leukocytes in the urine, however has increased epithelial cells indicating contamination. Await culture report before starting antibiotics Constipation, -Abdominal x-ray 02/16 indicates moderate amount of stool in the colon on the left side. -Milk of magnesia as needed. -MiraLAX, lactulose, Haydee-Colace daily, lactulose, MiraLAX -Dulcolax as needed DVT prophylaxis - patient on Coumadin Discharge Planning Case management arranging discharge [facility] jail facility once a finding facility that'll accept the patient/insurance. Has accepting SNF in order to get Medicaid, and must have someone to sign him in. Case management following. 02/23 Pt remains in the hospital due to lack of accepting facility. Although pt has [facility] Medicaid for discharge plans, there is no SNF benefit, thus pt will have to be accepted ICP pending. CM discussed pt with Codey Rich CM who is complex category planner. He is currently working on placement. CM following. Truman Fulton Mar 08, 2016 08:39
[2016-03-08] MEDS: EUCERIN CREAM 120 GM JAR TOPICAL SCH ×2 (09:00→22:10)
[2016-03-08] MEDS: BETAMETHASONE DIPROPIONATE 0.05% OINT 15 GM TUBE TOP SCH ×2 (09:00→22:09)
[2016-03-08] MEDS: POLYETHYLENE GLYCOL 17 GM PKG PO SCH (13:00)
[2016-03-08] MEDS: ENOXAPARIN SODIUM 100 MG/ML SYRINGE SQ SCH (13:00)
[2016-03-08] MEDS: CARVEDILOL 12.5 MG TAB PO SCH ×2 (13:01→22:09)
[2016-03-08] MEDS: FERROUS SULFATE 325 MG (65 MG ELEMENTAL IRON) TAB PO SCH (13:01)
[2016-03-08] MEDS: DOCUSATE SODIUM 50 MG/SENNA 8.6 MG TAB PO SCH ×2 (13:01→22:09)
[2016-03-08] MEDS: QUEtiapine FUMARATE 25 MG TAB PO SCH (13:01)
[2016-03-08] MEDS: ENALAPRIL MALEATE 2.5 MG TAB PO SCH (13:02)
[2016-03-08] MEDS: ATORVASTATIN 40 MG TAB PO SCH (13:02)
[2016-03-08] MEDS: LACTULOSE SYRUP 20 GM/30 ML CUP PO SCH (13:02)
[2016-03-08 13:17] VITALS: BP 129/90; PULSE 70; RESP 15; TEMP 96.3; O2SAT 97
[2016-03-08] MEDS: WARFARIN SOD 5 MG TAB PO SCH (16:27)
[2016-03-08 20:00] VITALS: BP 130/80; PULSE 70; RESP 20; TEMP 98.2; O2SAT 98
[2016-03-08] MEDS: QUEtiapine FUMARATE 100 MG TAB PO SCH (22:09)
[2016-03-08] MEDS: ISOSORBIDE MONONITRATE 60 MG TAB PO SCH (22:09)
[2016-03-09] MEDS: BACITRACIN TOP OINT 15 GM TUBE TOP SCH ×3 (06:00→20:57)
[2016-03-09 06:51] LABS: INTERNATIONAL NORMALIZED RATIO 1.1 RATIO; PROTHROMBIN TIME - PATIENT 12.1 SEC (9.8-11.6)
[2016-03-09 07:45] LABS: AUTOMATED NEUTROPHIL # 5.6 TH/MM3 (1.8-7.7); BASOPHIL % 0.6 % (0.0-2.0); EOSINOPHIL # 0.3 TH/MM3 (0-0.4); EOSINOPHIL % 3.7 % (0.0-4.0); HEMATOCRIT 26.2 % (39.0-51.0); HEMO FLAGS DIFF FINAL; LYMPH % 16.5 % (9.0-44.0); LYMPHOCYTE # 1.2 TH/MM3 (1.0-4.8); MEAN CELL VOLUME 83.9 FL (80.0-100.0); MEAN CORPUSCULAR HEMOGLOBIN 28.3 PG (27.0-34.0); MEAN CORPUSCULAR HGB CONC 33.8 % (32.0-36.0); MONO % 7.1 % (0.0-8.0); NEUT % 72.1 % (16.0-70.0); PLATELET COUNT 183 TH/MM3 (150-450); RED BLOOD COUNT 3.13 MIL/MM3 (4.50-5.90); WHITE BLOOD COUNT 7.6 TH/MM3 (4.0-11.0)
[2016-03-09 07:50] LABS: CHLORIDE 110 MEQ/L (98-107); POTASSIUM 4.7 MEQ/L (3.5-5.1); SODIUM (NA) 143 MEQ/L (136-145)
[2016-03-09 07:55] LABS: ANION GAP 7 MEQ/L (5-15); BICARBONATE 26.2 MEQ/L (21.0-32.0); BLOOD UREA NITROGEN 37 MG/DL (7-18)
[2016-03-09 07:58] LABS: ALT (GPT) 15 U/L (12-78); AST (GOT) 12 U/L (15-37); GLOMERULAR FILTRATION RATE 32 ML/MIN (>89)
[2016-03-09 07:59] LABS: TOTAL BILIRUBIN ADULT 0.3 MG/DL (0.2-1.0)
--- NOTE | 2016-03-09 07:59 | HHI.PR ---
Subjective Remarks Patient seen and examined today. Patient had been becoming more lethargic lately, nursing staff states that patient had decreased urinary output is only 75 cc overnight. He is not been eating and drinking. Objective Vitals Vital Signs Date Time Temp Pulse Resp B/P Pulse Ox O2 Delivery O2 Flow Rate FiO2 03/08/16 20:00 98.2 70 20 130/80 98 03/08/16 13:17 96.3 70 15 129/90 97 I/O 03/08/16 03/08/16 03/08/16 03/09/16 03/09/16 03/09/16 07:00 15:00 23:00 07:00 15:00 23:00 Intake Total 650 ml 120 ml 0 ml Output Total 75 ml 0 ml Balance 650 ml 45 ml 0 ml Intake Oral 650 ml 120 ml 0 ml Output Urine Total 75 ml 0 ml # Voids 1 1 0 # Bowel Movements 0 0 0 Result Diagram: 03/09/16 0555 03/09/16 0555 Objective Remarks GENERAL: Well-developed, well-nourished, in no acute distress. Lethargic and orientated to person HEENT: Head is normocephalic without any lesions or masses noted. Facial features are symmetric. Extraocular muscles are intact. Conjunctivae were clear. NECK: Supple without any masses. Trachea midline no deviation. No JVD, CARDIAC: Regular rhythm, regular rate. S1/S2 are heard. No murmurs gallops or rubs. LUNGS: Clear to auscultation bilaterally. No wheeze, rhonchi or rales. No use of accessory muscles on inspiration or expiration. ABDOMEN: Soft, nontender. Nondistended. Bowel sounds heard in all 4 quadrants. No organomegaly or masses. Negative rebound, negative guarding. EXTREMITIES: No edema, pulses are equal bilaterally. No cyanosis or clubbing. Right [id number] amputation. Left foot and Multi-Podus boot, NEUROLOGY: Mood and affect appear appropriate. Cranial nerves II through XII grossly intact. Moving all extremities, speech is clear Procedures None Urinary Catheter: No Vascular Central Line Catheter: No A/P Assessment and Plan 60-year-old male with admitted 10/14 with acute cortical infarct. Patient remains with significant cognitive deficit. Metabolic/infection encephalopathy -Patient with decreased mental status, increased lethargy, not eating or drinking as much, refusing to take medications -Etiology could include a combination of dehydration, worsening renal failure, urinary tract infection -Obtain CBC, CMP, ammonia level -Start IV fluids Urinary tract infection -Urine culture indicates greater than 100,000 gram-negative hector -Start Rocephin 1 g IV daily Bilateral cerebrovascular accident, with persistent cognitive defect -MRI showed acute cortical infarct of the right cerebral peduncle to the pelvis , left thalamus punctate area of infarct -Neurology last seen patient on 11/13/15, recommended long-term anticoagulation -Continue with Statin. -Continue Coumadin 5 mg daily and monitor INR/PT keep INR between 2 and 3, pharmacy consult for dosing. INR 1.1, patient started on Lovenox by pharmacy -Reconsulted PT/OT, patient will require intermittent therapy while he remains in the hospital so he does not decompensate -Out of bed with nursing only. Patient was counseled to not get out of bed on his own. Fall risk due to cognitive deficit Ischemic Cardiomyopathy/chronic systolic CHF LVEF 35% on echo 03/2015. Denies shortness of breath. Compensated. -Continue Coreg, Imdur, enalapril. -Could consider AICD if patient is able to consent, however patient is currently unable to consent -Fluid and sodium restrictions, follow volume status. Chronic kidney disease stage 3/4. Worsening -Likely due to poor by mouth intake -Avoid nephrotoxins. -Monitor BMP intermittently left tibial surface- with superficial wound - improving -posterior aspect with erythema avoid pressure Bacitracin bid Medication noncompliance, intermittent Case discussed with psychiatry, case management We'll discuss with nursing staff, this has been a long-term issue and nursing staff has been able to put his medications in applesauce and orange juice, and the patient takes the medications when done that way. Patient did take all his medications yesterday. Anemia with iron deficiency, hemoglobin stable since admission Iron studies indicate iron 45, TIBC 232, ferritin 345 Patient started on ferrous sulfate 325 mg daily Continue monitor CBC intermittently Bacteremia with Staphylococcus hemolyticus, from wounds. Resolved -Follow blood cultures have been negative since 10/16/15 -Status post Keflex and Cipro management -Infectious disease managed patient Diabetic mellitus - Glucose was well controlled. All insulin discontinued. -accu-checks discontinued as patient's blood sugar well controlled and Hgb A1c 6.9. -continue diet control Peripheral arterial disease-stable. -Continue anticoagulation Intermittent agitation- workup done to rule out infectious source causing change in mentation -Continue Seroquel 50 mg in the morning and 100 mg at night -Psychiatry reevaluated the patient on 02/17 -Workup negative thus far except for leukocytes in the urine, however has increased epithelial cells indicating contamination. Await culture report before starting antibiotics Constipation, -Abdominal x-ray 02/16 indicates moderate amount of stool in the colon on the left side. -Milk of magnesia as needed. -MiraLAX, lactulose, Haydee-Colace daily, lactulose, MiraLAX -Dulcolax as needed DVT prophylaxis - patient on Coumadin Discharge Planning Case management arranging discharge planning to jail facility once a finding facility that'll accept the patient/insurance. Has accepting SNF in order to get Medicaid, and must have someone to sign him in. Case management following. 02/23 Pt remains in the hospital due to lack of accepting facility. Although pt has [facility] Medicaid for discharge plans, there is no SNF benefit, thus pt will have to be accepted ICP pending. CM discussed pt with Codey Rich CM who is complex internet media planner. He is currently working on placement. CM following. Truman Fulton Mar 09, 2016 07:59
[2016-03-09 08:00] VITALS: BP 114/73; PULSE 71; RESP 18; TEMP 97.9; O2SAT 97
[2016-03-09 08:01] LABS: ALKALINE PHOSPHATASE 82 U/L (45-117)
[2016-03-09] MEDS: POLYETHYLENE GLYCOL 17 GM PKG PO SCH (08:04)
[2016-03-09] MEDS: CARVEDILOL 12.5 MG TAB PO SCH ×2 (08:04→20:52)
[2016-03-09] MEDS: LACTULOSE SYRUP 20 GM/30 ML CUP PO SCH ×3 (08:04→09:00)
[2016-03-09] MEDS: FERROUS SULFATE 325 MG (65 MG ELEMENTAL IRON) TAB PO SCH (08:05)
[2016-03-09] MEDS: ENALAPRIL MALEATE 2.5 MG TAB PO SCH (08:05)
[2016-03-09] MEDS: DOCUSATE SODIUM 50 MG/SENNA 8.6 MG TAB PO SCH ×2 (08:05→20:52)
[2016-03-09] MEDS: QUEtiapine FUMARATE 25 MG TAB PO SCH (08:05)
[2016-03-09] MEDS: BETAMETHASONE DIPROPIONATE 0.05% OINT 15 GM TUBE TOP SCH ×2 (08:06→20:57)
[2016-03-09] MEDS: ATORVASTATIN 40 MG TAB PO SCH (08:06)
[2016-03-09] MEDS: EUCERIN CREAM 120 GM JAR TOPICAL SCH ×2 (08:06→20:57)
[2016-03-09] MEDS: cefTRIAXone INJ 1,000 MG in SODIUM CHLORIDE 0.9% INJ 100 ML IV SCH (08:59)
[2016-03-09] MEDS: SODIUM CHLOR 0.9% 1000 ML INJ 1,000 ML IV SCH ×2 (08:59→15:28)
[2016-03-09] MEDS: ENOXAPARIN SODIUM 100 MG/ML SYRINGE SQ SCH (11:53)
[2016-03-09] MEDS ORDERED: WARFARIN SOD 7.5 MG TAB PO ONE (16:00)
[2016-03-09] MEDS: BISACODYL 10 MG SUPP PR PRN (16:16)
[2016-03-09] MEDS: QUEtiapine FUMARATE 100 MG TAB PO SCH (20:52)
[2016-03-09] MEDS: ISOSORBIDE MONONITRATE 60 MG TAB PO SCH (20:52)
[2016-03-10] MEDS: SODIUM CHLOR 0.9% 1000 ML INJ 1,000 ML IV SCH ×2 (04:21→10:09)
[2016-03-10 04:26] VITALS: BP 137/87; PULSE 74; RESP 18; TEMP 97.4; O2SAT 97
[2016-03-10 06:03] LABS: AUTOMATED NEUTROPHIL # 4.8 TH/MM3 (1.8-7.7); BASOPHIL % 0.4 % (0.0-2.0); EOSINOPHIL # 0.3 TH/MM3 (0-0.4); EOSINOPHIL % 4.2 % (0.0-4.0); HEMATOCRIT 26.6 % (39.0-51.0); HEMO FLAGS DIFF FINAL; LYMPH % 18.3 % (9.0-44.0); LYMPHOCYTE # 1.2 TH/MM3 (1.0-4.8); MEAN CELL VOLUME 84.8 FL (80.0-100.0); MONO % 7.6 % (0.0-8.0); NEUT % 69.5 % (16.0-70.0); PLATELET COUNT 187 TH/MM3 (150-450); RED BLOOD COUNT 3.14 MIL/MM3 (4.50-5.90); WHITE BLOOD COUNT 6.8 TH/MM3 (4.0-11.0)
[2016-03-10 06:14] LABS: POTASSIUM 4.7 MEQ/L (3.5-5.1)
[2016-03-10 06:15] LABS: INTERNATIONAL NORMALIZED RATIO 1.3 RATIO; PROTHROMBIN TIME - PATIENT 14.4 SEC (9.8-11.6)
[2016-03-10 06:18] LABS: MAGNESIUM 1.6 MG/DL (1.5-2.5)
[2016-03-10] MEDS: BACITRACIN TOP OINT 15 GM TUBE TOP SCH ×3 (06:35→20:50)
[2016-03-10 08:00] VITALS: BP 120/74; PULSE 80; RESP 18; TEMP 98.2; O2SAT 96
[2016-03-10] MEDS: POLYETHYLENE GLYCOL 17 GM PKG PO SCH (09:00)
[2016-03-10] MEDS: DOCUSATE SODIUM 50 MG/SENNA 8.6 MG TAB PO SCH ×2 (09:00→20:45)
--- NOTE | 2016-03-10 09:48 | HHI.PR ---
Subjective Remarks Patient seen and examined today. Patient is mildly more alert today than yesterday. Objective Vitals Vital Signs Date Time Temp Pulse Resp B/P Pulse Ox O2 Delivery O2 Flow Rate FiO2 03/10/16 08:00 98.2 80 18 120/74 96 03/10/16 04:26 97.4 74 18 137/87 97 I/O 03/09/16 03/09/16 03/09/16 03/10/16 03/10/16 03/10/16 07:00 15:00 23:00 07:00 15:00 23:00 Intake Total 0 ml 720 ml 1765 ml Output Total 0 ml 400 ml 700 ml Balance 0 ml -400 ml 20 ml 1765 ml Intake Oral 0 ml 720 ml 240 ml IV Total 1525 ml Output Urine Total 0 ml 400 ml 600 ml Stool Total 100 ml # Voids 0 4 5 # Bowel Movements 0 1 0 Result Diagram: 03/10/16 0533 03/10/16 0533 Objective Remarks GENERAL: Well-developed, well-nourished, in no acute distress. Lethargic and orientated to person HEENT: Head is normocephalic without any lesions or masses noted. Facial features are symmetric. Extraocular muscles are intact. Conjunctivae were clear. NECK: Supple without any masses. Trachea midline no deviation. No JVD, CARDIAC: Regular rhythm, regular rate. S1/S2 are heard. No murmurs gallops or rubs. LUNGS: Clear to auscultation bilaterally. No wheeze, rhonchi or rales. No use of accessory muscles on inspiration or expiration. ABDOMEN: Soft, nontender. Nondistended. Bowel sounds heard in all 4 quadrants. No organomegaly or masses. Negative rebound, negative guarding. EXTREMITIES: No edema, pulses are equal bilaterally. No cyanosis or clubbing. Right [id number] amputation. Left foot and Multi-Podus boot, NEUROLOGY: Mood and affect appear appropriate. Cranial nerves II through XII grossly intact. Moving all extremities, speech is clear Procedures None Urinary Catheter: No Vascular Central Line Catheter: No A/P Assessment and Plan 60-year-old male with admitted 10/14 with acute cortical infarct. Patient remains with significant cognitive deficit. Metabolic/infection encephalopathy, minimally improved -Patient with decreased mental status, increased lethargy, not eating or drinking as much, refusing to take medications -Etiology could include a combination of dehydration, worsening renal failure, urinary tract infection -Laboratory studies indicate mild worsening renal function -Continue IV fluids Urinary tract infection -Urine culture indicates Klebsiella pneumonia, Pseudomonas species -Continue Rocephin 1 g IV daily Bilateral cerebrovascular accident, with persistent cognitive defect -MRI showed acute cortical infarct of the right cerebral peduncle to the pelvis , left thalamus punctate area of infarct -Neurology last seen patient on 11/13/15, recommended long-term anticoagulation -Continue with Statin. -Continue Coumadin 5 mg daily and monitor INR/PT keep INR between 2 and 3, pharmacy consult for dosing. INR 1.1, patient started on Lovenox by pharmacy -Reconsulted PT/OT, patient will require intermittent therapy while he remains in the hospital so he does not decompensate -Out of bed with nursing only. Patient was counseled to not get out of bed on his own. Fall risk due to cognitive deficit Ischemic Cardiomyopathy/chronic systolic CHF LVEF 35% on echo 03/2015. Denies shortness of breath. Compensated. -Continue Coreg, Imdur, enalapril. -Could consider AICD if patient is able to consent, however patient is currently unable to consent -Fluid and sodium restrictions, follow volume status. Chronic kidney disease stage 3/4. Worsening -Likely due to poor by mouth intake, encourage water intake -Avoid nephrotoxins. -Monitor BMP intermittently left tibial surface- with superficial wound - improving -posterior aspect with erythema avoid pressure Bacitracin bid Medication noncompliance, intermittent Case discussed with psychiatry, case management We'll discuss with nursing staff, this has been a long-term issue and nursing staff has been able to put his medications in applesauce and orange juice, and the patient takes the medications when done that way. Patient did take all his medications yesterday. Anemia with iron deficiency, hemoglobin stable since admission Iron studies indicate iron 45, TIBC 232, ferritin 345 Patient started on ferrous sulfate 325 mg daily Continue monitor CBC intermittently Bacteremia with Staphylococcus hemolyticus, from wounds. Resolved -Follow blood cultures have been negative since 10/16/15 -Status post Keflex and Cipro management -Infectious disease managed patient Diabetic mellitus - Glucose was well controlled. All insulin discontinued. -accu-checks discontinued as patient's blood sugar well controlled and Hgb A1c 6.9. -continue diet control Peripheral arterial disease-stable. -Continue anticoagulation Intermittent agitation- workup done to rule out infectious source causing change in mentation -Continue Seroquel 50 mg in the morning and 100 mg at night -Psychiatry reevaluated the patient on 02/17 -Workup negative thus far except for leukocytes in the urine, however has increased epithelial cells indicating contamination. Await culture report before starting antibiotics Constipation, -Abdominal x-ray 02/16 indicates moderate amount of stool in the colon on the left side. -Milk of magnesia as needed. -MiraLAX, lactulose, Haydee-Colace daily, lactulose, MiraLAX -Dulcolax as needed DVT prophylaxis - patient on Coumadin Discharge Planning Case management arranging discharge planning to assisted facility once a finding facility that'll accept the patient/insurance. Has accepting SNF in order to get Medicaid, and must have someone to sign him in. Case management following. 02/23 Pt remains in the hospital due to lack of accepting facility. Although pt has [facility] Medicaid for discharge plans, there is no SNF benefit, thus pt will have to be accepted [facility] pending. CM discussed pt with Codey Rich CM who is complex community development planner. He is currently working on placement. CM following. Truman Fulton Mar 10, 2016 09:48
[2016-03-10] MEDS: LACTULOSE SYRUP 20 GM/30 ML CUP PO SCH (10:06)
[2016-03-10] MEDS: ATORVASTATIN 40 MG TAB PO SCH (10:06)
[2016-03-10] MEDS: CARVEDILOL 12.5 MG TAB PO SCH ×2 (10:06→20:45)
[2016-03-10] MEDS: FERROUS SULFATE 325 MG (65 MG ELEMENTAL IRON) TAB PO SCH (10:06)
[2016-03-10] MEDS: cefTRIAXone INJ 1,000 MG in SODIUM CHLORIDE 0.9% INJ 100 ML IV SCH (10:06)
[2016-03-10] MEDS: QUEtiapine FUMARATE 25 MG TAB PO SCH (10:06)
[2016-03-10] MEDS: ENALAPRIL MALEATE 2.5 MG TAB PO SCH (10:06)
[2016-03-10] MEDS: EUCERIN CREAM 120 GM JAR TOPICAL SCH ×2 (10:08→20:50)
[2016-03-10] MEDS: BETAMETHASONE DIPROPIONATE 0.05% OINT 15 GM TUBE TOP SCH ×2 (10:08→20:49)
[2016-03-10] MEDS: ENOXAPARIN SODIUM 100 MG/ML SYRINGE SQ SCH (10:13)
[2016-03-10] MEDS ORDERED: WARFARIN SOD 5 MG TAB PO SCH (16:00)
[2016-03-10] MEDS ORDERED: WARFARIN SOD 7.5 MG TAB PO ONE (16:00)
[2016-03-10 20:00] VITALS: BP 175/117; PULSE 90; RESP 18; TEMP 98.2; O2SAT 96
[2016-03-10] MEDS: ISOSORBIDE MONONITRATE 60 MG TAB PO SCH (20:44)
[2016-03-10] MEDS: QUEtiapine FUMARATE 100 MG TAB PO SCH (20:45)
[2016-03-11] MEDS: BACITRACIN TOP OINT 15 GM TUBE TOP SCH ×3 (05:50→21:08)
[2016-03-11 06:36] LABS: INTERNATIONAL NORMALIZED RATIO 1.6 RATIO; PROTHROMBIN TIME - PATIENT 17.9 SEC (9.8-11.6)
--- NOTE | 2016-03-11 07:59 | HHI.PR ---
Subjective Remarks Patient seen and examined today. Patient appears to be more alert today. Denies any new complaints. Objective Vitals Vital Signs Date Time Temp Pulse Resp B/P Pulse Ox O2 Delivery O2 Flow Rate FiO2 03/10/16 20:00 98.2 90 18 175/117 96 03/10/16 08:00 98.2 80 18 120/74 96 I/O 03/10/16 03/10/16 03/10/16 03/11/16 03/11/16 03/11/16 07:00 15:00 23:00 07:00 15:00 23:00 Intake Total 1765 ml 480 ml 800 ml Output Total 750 ml Balance 1765 ml 480 ml 50 ml Intake Oral 240 ml 480 ml IV Total 1525 ml 800 ml Output Urine Total 750 ml # Voids 5 3 # Bowel Movements 0 Result Diagram: 03/10/16 0533 03/10/16532 Objective Remarks GENERAL: Well-developed, well-nourished, in no acute distress. Alert and orientated to person HEENT: Head is normocephalic without any lesions or masses noted. Facial features are symmetric. Extraocular muscles are intact. Conjunctivae were clear. NECK: Supple without any masses. Trachea midline no deviation. No JVD, CARDIAC: Regular rhythm, regular rate. S1/S2 are heard. No murmurs gallops or rubs. LUNGS: Clear to auscultation bilaterally. No wheeze, rhonchi or rales. No use of accessory muscles on inspiration or expiration. ABDOMEN: Soft, nontender. Nondistended. Bowel sounds heard in all 4 quadrants. No organomegaly or masses. Negative rebound, negative guarding. EXTREMITIES: No edema, pulses are equal bilaterally. No cyanosis or clubbing. Right [id number] amputation. Left foot and Multi-Podus boot, NEUROLOGY: Mood and affect appear appropriate. Cranial nerves II through XII grossly intact. Moving all extremities, speech is clear Procedures None Urinary Catheter: No Vascular Central Line Catheter: No A/P Assessment and Plan 60-year-old male with admitted 10/14 with acute cortical infarct. Patient remains with significant cognitive deficit. Metabolic/infection encephalopathy, improving -Patient mentation is improving -Etiology included a combination of dehydration, worsening renal failure, urinary tract infection -Laboratory studies indicate mild worsening renal function -Continue IV fluids Urinary tract infection -Urine culture indicates Klebsiella pneumonia, Pseudomonas species -Continue Rocephin 1 g IV daily for 10 days Bilateral cerebrovascular accident, with persistent cognitive defect -MRI showed acute cortical infarct of the right cerebral peduncle to the pelvis , left thalamus punctate area of infarct -Neurology last seen patient on 11/13/15, recommended long-term anticoagulation -Continue with Statin. -Continue Coumadin 5 mg daily and monitor INR/PT keep INR between 2 and 3, pharmacy consult for dosing. INR 1.6, patient started on Lovenox by pharmacy -Reconsulted PT/OT, patient will require intermittent therapy while he remains in the hospital so he does not decompensate -Out of bed with nursing only. Patient was counseled to not get out of bed on his own. Fall risk due to cognitive deficit Ischemic Cardiomyopathy/chronic systolic CHF LVEF 35% on echo 03/2015. Denies shortness of breath. Compensated. -Continue Coreg, Imdur, enalapril. -Could consider AICD if patient is able to consent, however patient is currently unable to consent -Fluid and sodium restrictions, follow volume status. Chronic kidney disease stage 3/4. Worsening -Likely due to poor by mouth intake, encourage water intake -Avoid nephrotoxins. -Monitor BMP intermittently left tibial surface- with superficial wound - improving -posterior aspect with erythema avoid pressure Bacitracin bid Medication noncompliance, intermittent Case discussed with psychiatry, case management We'll discuss with nursing staff, this has been a long-term issue and nursing staff has been able to put his medications in applesauce and orange juice, and the patient takes the medications when done that way. Patient did take all his medications yesterday. Anemia with iron deficiency, hemoglobin stable since admission Iron studies indicate iron 45, TIBC 232, ferritin 345 Patient started on ferrous sulfate 325 mg daily Continue monitor CBC intermittently Bacteremia with Staphylococcus hemolyticus, from wounds. Resolved -Follow blood cultures have been negative since 10/16/15 -Status post Keflex and Cipro management -Infectious disease managed patient Diabetic mellitus - Glucose was well controlled. All insulin discontinued. -accu-checks discontinued as patient's blood sugar well controlled and Hgb A1c 6.9. -continue diet control Peripheral arterial disease-stable. -Continue anticoagulation Intermittent agitation- workup done to rule out infectious source causing change in mentation -Continue Seroquel 50 mg in the morning and 100 mg at night -Psychiatry reevaluated the patient on 02/17 -Workup negative thus far except for leukocytes in the urine, however has increased epithelial cells indicating contamination. Await culture report before starting antibiotics Constipation, -Abdominal x-ray 02/16 indicates moderate amount of stool in the colon on the left side. -Milk of magnesia as needed. -MiraLAX, lactulose, Haydee-Colace daily, lactulose, MiraLAX -Dulcolax as needed DVT prophylaxis - patient on Coumadin Discharge Planning Case management arranging discharge planning to halfway facility once a finding facility that'll accept the patient/insurance. Has accepting SNF in order to get Medicaid, and must have someone to sign him in. Case management following. 03/10/16 PATIENT REMAINS HOSPITALIZED DUE TO INABILITY TO PLACE PATIENT. EVEN THOUGH HE HAS [facility] INSURANCE, HE HAS NO SNF BENEFITS. PATIENT WOULD HAVE TO BE APPROVED FOR [facility] MEDICAID PENDING TO ENTER A FACILITY. AMBER HAS HAD AN ACUTE CORTICAL INFARCT AND HAS SIGNIFICANT COGNITIVE DEFICITS. EVELIA BEAUCHAMP LPN, CM IS WORKING ON SKILLED FACILITY PLACEMENT FOR PATIENT. AT THIS POINT PATIENT DOES NOT HAVE A RESPONSIBLE ALLIANCE PARTY TO SIGN HIM INTO A FACILITY. Truman Fulton Mar 11, 2016 07:58
[2016-03-11 08:00] VITALS: BP 151/96; PULSE 69; RESP 16; TEMP 96.9; O2SAT 98
[2016-03-11] MEDS: POLYETHYLENE GLYCOL 17 GM PKG PO SCH (09:00)
[2016-03-11] MEDS: ENALAPRIL MALEATE 2.5 MG TAB PO SCH (09:12)
[2016-03-11] MEDS: CARVEDILOL 12.5 MG TAB PO SCH ×2 (09:12→21:02)
[2016-03-11] MEDS: DOCUSATE SODIUM 50 MG/SENNA 8.6 MG TAB PO SCH ×2 (09:13→21:02)
[2016-03-11] MEDS: FERROUS SULFATE 325 MG (65 MG ELEMENTAL IRON) TAB PO SCH (09:14)
[2016-03-11] MEDS: QUEtiapine FUMARATE 25 MG TAB PO SCH (09:14)
[2016-03-11] MEDS: ATORVASTATIN 40 MG TAB PO SCH (09:15)
[2016-03-11] MEDS: cefTRIAXone INJ 1,000 MG in SODIUM CHLORIDE 0.9% INJ 100 ML IV SCH (09:17)
[2016-03-11] MEDS: LACTULOSE SYRUP 20 GM/30 ML CUP PO SCH (09:18)
[2016-03-11] MEDS: EUCERIN CREAM 120 GM JAR TOPICAL SCH ×2 (09:18→21:08)
[2016-03-11] MEDS: BETAMETHASONE DIPROPIONATE 0.05% OINT 15 GM TUBE TOP SCH ×2 (09:18→21:08)
[2016-03-11] MEDS: ENOXAPARIN SODIUM 100 MG/ML SYRINGE SQ SCH (09:19)
[2016-03-11] MEDS: SODIUM CHLOR 0.9% 1000 ML INJ 1,000 ML IV SCH ×3 (09:19→19:06)
[2016-03-11] MEDS: WARFARIN SOD 5 MG TAB PO SCH (16:36)
[2016-03-11] MEDS: QUEtiapine FUMARATE 100 MG TAB PO SCH (21:02)
[2016-03-11] MEDS: ISOSORBIDE MONONITRATE 60 MG TAB PO SCH (21:02)
[2016-03-12] MEDS: SODIUM CHLOR 0.9% 1000 ML INJ 1,000 ML IV SCH ×2 (05:26→12:01)
[2016-03-12] MEDS: BACITRACIN TOP OINT 15 GM TUBE TOP SCH ×3 (05:27→22:37)
[2016-03-12 07:14] LABS: INTERNATIONAL NORMALIZED RATIO 1.7 RATIO; PROTHROMBIN TIME - PATIENT 19.4 SEC (9.8-11.6)
--- NOTE | 2016-03-12 07:22 | HHI.PR ---
Subjective Remarks Patient seen and examined today, discussed with nursing staff, patient's mentation much improved, back to baseline with not taking his meds and spitting on nursing staff. Objective Vitals Vital Signs Date Time Temp Pulse Resp B/P Pulse Ox O2 Delivery O2 Flow Rate FiO2 03/11/16 08:00 96.9 69 16 151/96 98 I/O 03/11/16 03/11/16 03/11/16 03/12/16 03/12/16 03/12/16 06:59 14:59 22:59 06:59 14:59 22:59 Intake Total 690 ml 330 ml 400 ml Output Total 100 ml Balance 690 ml 230 ml 400 ml Intake Oral 690 ml 330 ml IV Total 400 ml Output Urine Total 100 ml # Voids 2 1 Result Diagram: 03/10/1653203/10/16532 Objective Remarks GENERAL: Well-developed, well-nourished, in no acute distress. Alert and orientated to person HEENT: Head is normocephalic without any lesions or masses noted. Facial features are symmetric. Extraocular muscles are intact. Conjunctivae were clear. NECK: Supple without any masses. Trachea midline no deviation. No JVD, CARDIAC: Regular rhythm, regular rate. S1/S2 are heard. No murmurs gallops or rubs. LUNGS: Clear to auscultation bilaterally. No wheeze, rhonchi or rales. No use of accessory muscles on inspiration or expiration. ABDOMEN: Soft, nontender. Nondistended. Bowel sounds heard in all 4 quadrants. No organomegaly or masses. Negative rebound, negative guarding. EXTREMITIES: No edema, pulses are equal bilaterally. No cyanosis or clubbing. Right [id number]-[id number] amputation. Left foot and Multi-Podus boot, NEUROLOGY: Mood and affect appear appropriate. Cranial nerves II through XII grossly intact. Moving all extremities, speech is clear Procedures None Urinary Catheter: No Vascular Central Line Catheter: No A/P Assessment and Plan 60-year-old male with admitted 10/14 with acute cortical infarct. Patient remains with significant cognitive deficit. Urinary tract infection -Urine culture indicates Klebsiella pneumonia, Pseudomonas species -Continue Rocephin 1 g IV daily for 10 days Bilateral cerebrovascular accident, with persistent cognitive defect -MRI showed acute cortical infarct of the right cerebral peduncle to the pelvis , left thalamus punctate area of infarct -Neurology last seen patient on 11/13/15, recommended long-term anticoagulation -Continue with Statin. -Continue Coumadin 5 mg daily and monitor INR/PT keep INR between 2 and 3, pharmacy consult for dosing. INR 1.6, patient started on Lovenox by pharmacy -Reconsulted PT/OT, patient will require intermittent therapy while he remains in the hospital so he does not decompensate -Out of bed with nursing only. Patient was counseled to not get out of bed on his own. Fall risk due to cognitive deficit Metabolic/infection encephalopathy, resolved -Patient mentation back to baseline -Etiology included a combination of dehydration, worsening renal failure, urinary tract infection -Laboratory studies indicated mild worsening renal function -Continue IV fluids Ischemic Cardiomyopathy/chronic systolic CHF LVEF 35% on echo 03/2015. Denies shortness of breath. Compensated. -Continue Coreg, Imdur, enalapril. -Could consider AICD if patient is able to consent, however patient is currently unable to consent -Fluid and sodium restrictions, follow volume status. Chronic kidney disease stage 3/4. Worsening -Likely due to poor by mouth intake, encourage water intake -Avoid nephrotoxins. -Monitor BMP intermittently left tibial surface- with superficial wound - improving -posterior aspect with erythema avoid pressure Bacitracin bid Medication noncompliance, intermittent Case discussed with psychiatry, case management We'll discuss with nursing staff, this has been a long-term issue and nursing staff has been able to put his medications in applesauce and orange juice, and the patient takes the medications when done that way. Patient did take all his medications yesterday. Anemia with iron deficiency, hemoglobin stable since admission Iron studies indicate iron 45, TIBC 232, ferritin 345 Patient started on ferrous sulfate 325 mg daily Continue monitor CBC intermittently Bacteremia with Staphylococcus hemolyticus, from wounds. Resolved -Follow blood cultures have been negative since 10/16/15 -Status post Keflex and Cipro management -Infectious disease managed patient Diabetic mellitus - Glucose was well controlled. All insulin discontinued. -accu-checks discontinued as patient's blood sugar well controlled and Hgb A1c 6.9. -continue diet control Peripheral arterial disease-stable. -Continue anticoagulation Intermittent agitation- workup done to rule out infectious source causing change in mentation -Continue Seroquel 50 mg in the morning and 100 mg at night -Psychiatry reevaluated the patient on 02/17 -Workup negative thus far except for leukocytes in the urine, however has increased epithelial cells indicating contamination. Await culture report before starting antibiotics Constipation, -Abdominal x-ray 02/16 indicates moderate amount of stool in the colon on the left side. -Milk of magnesia as needed. -MiraLAX, lactulose, Haydee-Colace daily, lactulose, MiraLAX -Dulcolax as needed DVT prophylaxis - patient on Coumadin Discharge Planning Case management arranging discharge planning to [facility] facility once a finding facility that'll accept the patient/insurance. Has accepting SNF in order to get Medicaid, and must have someone to sign him in. Case management following. 03/10/16 PATIENT REMAINS HOSPITALIZED DUE TO INABILITY TO PLACE PATIENT. EVEN THOUGH HE HAS [facility] INSURANCE, HE HAS NO SNF BENEFITS. PATIENT WOULD HAVE TO BE APPROVED FOR [facility] MEDICAID PENDING TO ENTER A FACILITY. AMBER HAS HAD AN ACUTE CORTICAL INFARCT AND HAS SIGNIFICANT COGNITIVE DEFICITS. EVELIA BEAUCHAMP LPN, CM IS WORKING ON SKILLED FACILITY PLACEMENT FOR PATIENT. AT THIS POINT PATIENT DOES NOT HAVE A RESPONSIBLE GREEN PARTY TO SIGN HIM INTO A FACILITY. Truman Fulton Mar 12, 2016 07:22
[2016-03-12 07:43] LABS: POTASSIUM 4.5 MEQ/L (3.5-5.1)
[2016-03-12 07:46] LABS: BICARBONATE 24.5 MEQ/L (21.0-32.0)
[2016-03-12 08:00] VITALS: BP 128/85; PULSE 81; RESP 17; TEMP 97.6; O2SAT 94
[2016-03-12] MEDS: cefTRIAXone INJ 1,000 MG in SODIUM CHLORIDE 0.9% INJ 100 ML IV SCH (08:00)
[2016-03-12] MEDS: EUCERIN CREAM 120 GM JAR TOPICAL SCH ×2 (09:00→22:36)
[2016-03-12] MEDS: BETAMETHASONE DIPROPIONATE 0.05% OINT 15 GM TUBE TOP SCH ×2 (09:00→22:34)
[2016-03-12] MEDS: POLYETHYLENE GLYCOL 17 GM PKG PO SCH (10:00)
[2016-03-12] MEDS: LACTULOSE SYRUP 20 GM/30 ML CUP PO SCH (10:00)
[2016-03-12] MEDS: CARVEDILOL 12.5 MG TAB PO SCH ×2 (10:01→22:33)
[2016-03-12] MEDS: DOCUSATE SODIUM 50 MG/SENNA 8.6 MG TAB PO SCH ×2 (10:01→22:33)
[2016-03-12] MEDS: ATORVASTATIN 40 MG TAB PO SCH (10:01)
[2016-03-12] MEDS: FERROUS SULFATE 325 MG (65 MG ELEMENTAL IRON) TAB PO SCH (10:01)
[2016-03-12] MEDS: QUEtiapine FUMARATE 25 MG TAB PO SCH (10:01)
[2016-03-12] MEDS: ENALAPRIL MALEATE 2.5 MG TAB PO SCH (10:01)
[2016-03-12] MEDS: ENOXAPARIN SODIUM 100 MG/ML SYRINGE SQ SCH (11:24)
[2016-03-12] MEDS: WARFARIN SOD 5 MG TAB PO SCH (15:40)
[2016-03-12 20:00] VITALS: BP 150/93; PULSE 79; RESP 19; TEMP 98; O2SAT 97
[2016-03-12] MEDS: ISOSORBIDE MONONITRATE 60 MG TAB PO SCH (22:32)
[2016-03-12] MEDS: QUEtiapine FUMARATE 100 MG TAB PO SCH (22:32)
[2016-03-13] MEDS: SODIUM CHLOR 0.9% 1000 ML INJ 1,000 ML IV SCH (05:48)
[2016-03-13] MEDS: BACITRACIN TOP OINT 15 GM TUBE TOP SCH ×3 (05:48→20:48)
[2016-03-13 07:26] LABS: INTERNATIONAL NORMALIZED RATIO 1.7 RATIO; PROTHROMBIN TIME - PATIENT 19.8 SEC (9.8-11.6)
[2016-03-13 08:00] VITALS: BP 142/95; PULSE 76; RESP 18; TEMP 98.8; O2SAT 100
--- NOTE | 2016-03-13 08:27 | HHI.PR ---
Subjective Remarks Patient seen and examined today. Patient mental status is much improved. Back to baseline. Objective Vitals Vital Signs Date Time Temp Pulse Resp B/P Pulse Ox O2 Delivery O2 Flow Rate FiO2 03/12/16 20:00 98.0 79 19 150/93 97 I/O 03/12/16 03/12/16 03/12/16 03/13/16 03/13/16 03/13/16 07:00 15:00 23:00 07:00 15:00 23:00 Intake Total 400 ml 280 ml 240 ml 120 ml Output Total 700 ml 400 ml Balance 400 ml -420 ml -160 ml 120 ml Intake Oral 280 ml 240 ml 120 ml IV Total 400 ml 0 ml Output Urine Total 700 ml 400 ml # Voids 2 1 # Bowel Movements 0 1 Result Diagram: 03/10/16 0533 03/12/16 0642 Objective Remarks GENERAL: Well-developed, well-nourished, in no acute distress. Alert and orientated to person HEENT: Head is normocephalic without any lesions or masses noted. Facial features are symmetric. Extraocular muscles are intact. Conjunctivae were clear. NECK: Supple without any masses. Trachea midline no deviation. No JVD, CARDIAC: Regular rhythm, regular rate. S1/S2 are heard. No murmurs gallops or rubs. LUNGS: Clear to auscultation bilaterally. No wheeze, rhonchi or rales. No use of accessory muscles on inspiration or expiration. ABDOMEN: Soft, nontender. Nondistended. Bowel sounds heard in all 4 quadrants. No organomegaly or masses. Negative rebound, negative guarding. EXTREMITIES: No edema, pulses are equal bilaterally. No cyanosis or clubbing. Right ifjoe-vbh-wsui amputation. Left foot and Multi-Podus boot, NEUROLOGY: Mood and affect appear appropriate. Cranial nerves II through XII grossly intact. Moving all extremities, speech is clear Procedures None Urinary Catheter: No Vascular Central Line Catheter: No A/P Assessment and Plan 60-year-old male with admitted 10/14 with acute cortical infarct. Patient remains with significant cognitive deficit. Urinary tract infection -Urine culture indicates Klebsiella pneumonia, Pseudomonas species -Continue Rocephin 1 g IV daily for 10 days Bilateral cerebrovascular accident, with persistent cognitive defect -MRI showed acute cortical infarct of the right cerebral peduncle to the pelvis , left thalamus punctate area of infarct -Neurology last seen patient on 11/13/15, recommended long-term anticoagulation -Continue with Statin. -Continue Coumadin 5 mg daily and monitor INR/PT keep INR between 2 and 3, pharmacy consult for dosing. INR 1.7, patient started on Lovenox by pharmacy -Reconsulted PT/OT, patient will require intermittent therapy while he remains in the hospital so he does not decompensate -Out of bed with nursing only. Patient was counseled to not get out of bed on his own. Fall risk due to cognitive deficit Metabolic/infection encephalopathy, resolved -Patient mentation back to baseline -Etiology included a combination of dehydration, worsening renal failure, urinary tract infection -Laboratory studies indicated mild worsening renal function -Continue IV fluids Ischemic Cardiomyopathy/chronic systolic CHF LVEF 35% on echo 03/2015. Denies shortness of breath. Compensated. -Continue Coreg, Imdur, enalapril. -Could consider AICD if patient is able to consent, however patient is currently unable to consent -Fluid and sodium restrictions, follow volume status. Chronic kidney disease stage 3/4. Back to baseline -Likely due to poor by mouth intake, encourage water intake -Avoid nephrotoxins. -Monitor BMP intermittently left tibial surface- with superficial wound - improving -posterior aspect with erythema avoid pressure Bacitracin bid Medication noncompliance, intermittent Case discussed with psychiatry, case management We'll discuss with nursing staff, this has been a long-term issue and nursing staff has been able to put his medications in applesauce and orange juice, and the patient takes the medications when done that way. Patient did take all his medications yesterday. Anemia with iron deficiency, hemoglobin stable since admission Iron studies indicate iron 45, TIBC 232, ferritin 345 Patient started on ferrous sulfate 325 mg daily Continue monitor CBC intermittently Bacteremia with Staphylococcus hemolyticus, from wounds. Resolved -Follow blood cultures have been negative since 10/16/15 -Status post Keflex and Cipro management -Infectious disease managed patient Diabetic mellitus - Glucose was well controlled. All insulin discontinued. -accu-checks discontinued as patient's blood sugar well controlled and Hgb A1c 6.9. -continue diet control Peripheral arterial disease-stable. -Continue anticoagulation Intermittent agitation- workup done to rule out infectious source causing change in mentation -Continue Seroquel 50 mg in the morning and 100 mg at night -Psychiatry reevaluated the patient on 02/17 -Workup negative thus far except for leukocytes in the urine, however has increased epithelial cells indicating contamination. Await culture report before starting antibiotics Constipation, -Abdominal x-ray 02/16 indicates moderate amount of stool in the colon on the left side. -Milk of magnesia as needed. -MiraLAX, lactulose, Haydee-Colace daily, lactulose, MiraLAX -Dulcolax as needed DVT prophylaxis - patient on Coumadin Discharge Planning Case management arranging discharge planning to nursing home facility once a finding facility that'll accept the patient/insurance. Has accepting SNF in order to get Medicaid, and must have someone to sign him in. Case management following. 03/10/16 PATIENT REMAINS HOSPITALIZED DUE TO INABILITY TO PLACE PATIENT. EVEN THOUGH HE HAS [facility] INSURANCE, HE HAS NO SNF BENEFITS. PATIENT WOULD HAVE TO BE APPROVED FOR [facility] MEDICAID PENDING TO ENTER A FACILITY. AMBER HAS HAD AN ACUTE CORTICAL INFARCT AND HAS SIGNIFICANT COGNITIVE DEFICITS. EVELIA BEAUCHAMP LPN, CM IS WORKING ON SKILLED FACILITY PLACEMENT FOR PATIENT. AT THIS POINT PATIENT DOES NOT HAVE A RESPONSIBLE GREEN PARTY TO SIGN HIM INTO A FACILITY. Truman Fulton Mar 13, 2016 08:27
[2016-03-13] MEDS: LACTULOSE SYRUP 20 GM/30 ML CUP PO SCH (09:00)
[2016-03-13] MEDS: cefTRIAXone INJ 1,000 MG in SODIUM CHLORIDE 0.9% INJ 100 ML IV SCH (09:58)
[2016-03-13] MEDS: FERROUS SULFATE 325 MG (65 MG ELEMENTAL IRON) TAB PO SCH (10:00)
[2016-03-13] MEDS: CARVEDILOL 12.5 MG TAB PO SCH ×2 (10:00→20:33)
[2016-03-13] MEDS: ENALAPRIL MALEATE 2.5 MG TAB PO SCH (10:00)
[2016-03-13] MEDS: DOCUSATE SODIUM 50 MG/SENNA 8.6 MG TAB PO SCH ×2 (10:00→20:49)
[2016-03-13] MEDS: POLYETHYLENE GLYCOL 17 GM PKG PO SCH (10:00)
[2016-03-13] MEDS: ATORVASTATIN 40 MG TAB PO SCH (10:00)
[2016-03-13] MEDS: EUCERIN CREAM 120 GM JAR TOPICAL SCH ×2 (10:01→20:48)
[2016-03-13] MEDS: QUEtiapine FUMARATE 25 MG TAB PO SCH (10:01)
[2016-03-13] MEDS: BETAMETHASONE DIPROPIONATE 0.05% OINT 15 GM TUBE TOP SCH ×2 (10:02→20:42)
[2016-03-13] MEDS ORDERED: WARFARIN SOD 2 MG TAB PO ONE (12:00)
[2016-03-13] MEDS: ENOXAPARIN SODIUM 100 MG/ML SYRINGE SQ SCH (12:42)
[2016-03-13] MEDS: WARFARIN SOD 5 MG TAB PO SCH (18:04)
[2016-03-13] MEDS: LORazepam 1 MG TAB PO PRN (18:04)
[2016-03-13 20:00] VITALS: BP 155/97; PULSE 84; RESP 20; TEMP 98.6; O2SAT 99
[2016-03-13] MEDS: CIPROFLOXACIN 250 MG TAB PO SCH (20:48)
[2016-03-13] MEDS: ISOSORBIDE MONONITRATE 60 MG TAB PO SCH (20:48)
[2016-03-13] MEDS: QUEtiapine FUMARATE 100 MG TAB PO SCH (20:49)
[2016-03-14] MEDS: BACITRACIN TOP OINT 15 GM TUBE TOP SCH ×2 (06:10→14:00)
[2016-03-14 08:00] VITALS: BP 144/91; PULSE 67; RESP 20; TEMP 96.6; O2SAT 99
[2016-03-14] MEDS: QUEtiapine FUMARATE 25 MG TAB PO SCH (08:24)
[2016-03-14] MEDS: CARVEDILOL 12.5 MG TAB PO SCH (08:25)
[2016-03-14] MEDS: DOCUSATE SODIUM 50 MG/SENNA 8.6 MG TAB PO SCH (08:25)
[2016-03-14] MEDS: LACTULOSE SYRUP 20 GM/30 ML CUP PO SCH (08:25)
[2016-03-14] MEDS: FERROUS SULFATE 325 MG (65 MG ELEMENTAL IRON) TAB PO SCH (08:25)
[2016-03-14] MEDS: ATORVASTATIN 40 MG TAB PO SCH (08:26)
[2016-03-14] MEDS: ENALAPRIL MALEATE 2.5 MG TAB PO SCH (08:26)
[2016-03-14] MEDS: POLYETHYLENE GLYCOL 17 GM PKG PO SCH (08:27)
[2016-03-14 08:48] LABS: INTERNATIONAL NORMALIZED RATIO 1.7 RATIO; PROTHROMBIN TIME - PATIENT 19.6 SEC (9.8-11.6)
--- NOTE | 2016-03-14 08:56 | HHI.PR ---
Subjective Remarks Patient seen and examined today. Patient denies any new complaints. 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 He can get himself out of this restraints, wrist restraints, get out of bed. They' re requesting posy bed. Objective Vitals Vital Signs Date Time Temp Pulse Resp B/P Pulse Ox O2 Delivery O2 Flow Rate FiO2 03/14/16 08:00 96.6 67 20 144/91 99 03/13/16 20:00 98.6 84 20 155/97 99 I/O 03/13/16 03/13/16 03/13/16 03/14/16 03/14/16 03/14/16 07:00 15:00 23:00 07:00 15:00 23:00 Intake Total 120 ml 60 ml 0 ml Output Total 225 ml 0 ml Balance 120 ml -165 ml 0 ml Intake Oral 120 ml 60 ml 0 ml Output Urine Total 225 ml 0 ml # Voids 1 1 # Bowel Movements 1 0 0 Result Diagram: 03/10/16 0533 03/12/16 0642 Objective Remarks GENERAL: Well-developed, well-nourished, in no acute distress. Alert and orientated to person HEENT: Head is normocephalic without any lesions or masses noted. Facial features are symmetric. Extraocular muscles are intact. Conjunctivae were clear. NECK: Supple without any masses. Trachea midline no deviation. No JVD, CARDIAC: Regular rhythm, regular rate. S1/S2 are heard. No murmurs gallops or rubs. LUNGS: Clear to auscultation bilaterally. No wheeze, rhonchi or rales. No use of accessory muscles on inspiration or expiration. ABDOMEN: Soft, nontender. Nondistended. Bowel sounds heard in all 4 quadrants. No organomegaly or masses. Negative rebound, negative guarding. EXTREMITIES: No edema, pulses are equal bilaterally. No cyanosis or clubbing. Right [id number] amputation. Left foot and Multi-Podus boot, NEUROLOGY: Mood and affect appear appropriate. Cranial nerves II through XII grossly intact. Moving all extremities, speech is clear Procedures None Urinary Catheter: No Vascular Central Line Catheter: No A/P Assessment and Plan 60-year-old male with admitted 10/14 with acute cortical infarct. Patient remains with significant cognitive deficit. Urinary tract infection -Urine culture indicates Klebsiella pneumonia, Pseudomonas species -Continue Rocephin 1 g IV daily for 10 days Bilateral cerebrovascular accident, with persistent cognitive defect -MRI showed acute cortical infarct of the right cerebral peduncle to the pelvis , left thalamus punctate area of infarct -Neurology last seen patient on 11/13/15, recommended long-term anticoagulation -Continue with Statin. -Continue Coumadin 5 mg daily and monitor INR/PT keep INR between 2 and 3, pharmacy consult for dosing. INR 1.7, patient started on Lovenox by pharmacy -Reconsulted PT/OT, patient will require intermittent therapy while he remains in the hospital so he does not decompensate -Out of bed with nursing only. Patient was counseled to not get out of bed on his own. Fall risk due to cognitive deficit -[place] been ordered -Psychiatry reconsulted for evaluation and appreciate recommendations on patient 's cognition, agitation -Increase Seroquel to 100 mg twice daily Metabolic/infection encephalopathy, resolved -Patient mentation back to baseline -Etiology included a combination of dehydration, worsening renal failure, urinary tract infection -Laboratory studies indicated mild worsening renal function -Continue IV fluids Ischemic Cardiomyopathy/chronic systolic CHF LVEF 35% on echo 03/2015. Denies shortness of breath. Compensated. -Continue Coreg, Imdur, enalapril. -Could consider AICD if patient is able to consent, however patient is currently unable to consent -Fluid and sodium restrictions, follow volume status. Chronic kidney disease stage 3/4. Back to baseline -Likely due to poor by mouth intake, encourage water intake -Avoid nephrotoxins. -Monitor BMP intermittently left tibial surface- with superficial wound - improving -posterior aspect with erythema avoid pressure Bacitracin bid Medication noncompliance, intermittent Case discussed with psychiatry, case management We'll discuss with nursing staff, this has been a long-term issue and nursing staff has been able to put his medications in applesauce and orange juice, and the patient takes the medications when done that way. Patient did take all his medications yesterday. Anemia with iron deficiency, hemoglobin stable since admission Iron studies indicate iron 45, TIBC 232, ferritin 345 Patient started on ferrous sulfate 325 mg daily Continue monitor CBC intermittently Bacteremia with Staphylococcus hemolyticus, from wounds. Resolved -Follow blood cultures have been negative since 10/16/15 -Status post Keflex and Cipro management -Infectious disease managed patient Diabetic mellitus - Glucose was well controlled. All insulin discontinued. -accu-checks discontinued as patient's blood sugar well controlled and Hgb A1c 6.9. -continue diet control Peripheral arterial disease-stable. -Continue anticoagulation Intermittent agitation- workup done to rule out infectious source causing change in mentation -Continue Seroquel 50 mg in the morning and 100 mg at night -Psychiatry reevaluated the patient on 02/17 -Workup negative thus far except for leukocytes in the urine, however has increased epithelial cells indicating contamination. Await culture report before starting antibiotics Constipation, -Abdominal x-ray 02/16 indicates moderate amount of stool in the colon on the left side. -Milk of magnesia as needed. -MiraLAX, lactulose, Haydee-Colace daily, lactulose, MiraLAX -Dulcolax as needed DVT prophylaxis - patient on Coumadin Discharge Planning Case management arranging discharge planning to retirement facility once a finding facility that'll accept the patient/insurance. Has accepting SNF in order to get Medicaid, and must have someone to sign him in. Case management following. 03/10/16 PATIENT REMAINS HOSPITALIZED DUE TO INABILITY TO PLACE PATIENT. EVEN THOUGH HE HAS [facility] INSURANCE, HE HAS NO SNF BENEFITS. PATIENT WOULD HAVE TO BE APPROVED FOR [facility] MEDICAID PENDING TO ENTER A FACILITY. AMBER HAS HAD AN ACUTE CORTICAL INFARCT AND HAS SIGNIFICANT COGNITIVE DEFICITS. EVELIA BEAUCHAMP LPN, CM IS WORKING ON SKILLED FACILITY PLACEMENT FOR PATIENT. AT THIS POINT PATIENT DOES NOT HAVE A RESPONSIBLE REPUBLICAN TO SIGN HIM INTO A FACILITY. Truman Fulton Mar 14, 2016 08:56
[2016-03-14] MEDS ORDERED: DILTIAZEM 125 MG/NS 100 ML IV SCH ×2 (09:00)
[2016-03-14] MEDS: EUCERIN CREAM 120 GM JAR TOPICAL SCH (09:00)
[2016-03-14] MEDS: CIPROFLOXACIN 250 MG TAB PO SCH (09:00)
[2016-03-14] MEDS: BETAMETHASONE DIPROPIONATE 0.05% OINT 15 GM TUBE TOP SCH (09:00)
[2016-03-14] MEDS: ENOXAPARIN SODIUM 100 MG/ML SYRINGE SQ SCH (12:00)
[2016-03-14] MEDS ORDERED: HALOPERIDOL LACTATE 5 MG/ML AMP IM PRN (14:00)
--- NOTE | 2016-03-14 14:12 | HHI.PYPN ---
Subjective Remarks Patient was examined and reevaluated at bedside, chart review, case discussed with nurse in charge. On evaluation patient continues to be confused, disoriented in time and place, he says that he is [place] he wished to go down and take his car to drive to [facility]. He describes his mood as fine, states that he is "here and enjoy cartoons in TV", no agitation, aggressive behavior, behavioral dysregulation is observed at this moment. Review of Systems Other No significant changes since 03/04/2016 Objective Alert: Yes [place]: Person Mood: Angry, Calm Affect: Restricted Memory Intact: Remote, Comment (impaired) Hallucinations: Other (he denies) Delusions: No Delusion Type: Other (none) Suicidal: Ideation (he denies) Homicidal: Ideation (he denies) Insight/Judgement Poor Labs Test 03/14/16 08:20 Prothrombin Time 19.6 SEC Prothromb Time International 1.7 RATIO Ratio Vitals/IOs Vital Signs Date Time Temp Pulse Resp B/P Pulse Ox O2 Delivery O2 Flow Rate FiO2 03/14/16 08:00 96.6 67 20 144/91 99 Intake and Output 03/13/16 03/13/16 03/14/16 08:00 16:00 00:00 Intake Total 120 ml 60 ml Output Total 225 ml Balance 120 ml -165 ml Problem List: (1) Delirium secondary to multiple medical problems Assessment & Plan: Patient continue to have episodes of aggressive behavior dysregulation, agitation in the context of severe cognitive impairment. At the moment of the evaluation today patient was calm, watching TV, pleasantly demented. As per nurse, at baseline, patient is usually like this, but at times , like this morning, wanted to leave the bed and wanted to leave the hospital. He took his Seroquel 100 mg and since then has been calm. We'll increase Seroquel 150 at bedtime and 100 mg a.m for behavior control, will add Haldol 2 mg IM every 8 hours when necessary aggressive behavior and agitation. Make sure QT interval is no longer than 480 ms. ICD Code: F05 Assessment & Plan Estimated LOS: days Request HC Surrog/Guard Advoc?: Yes Ab Beard MD Mar 14, 2016 14:12
[2016-03-14] MEDS: WARFARIN SOD 6 MG TAB PO SCH (16:00)
[2016-03-14 20:00] VITALS: BP 145/93; PULSE 77; RESP 20; TEMP 98; O2SAT 91
[2016-03-15] MEDS: CIPROFLOXACIN 250 MG TAB PO SCH ×3 (00:01→21:51)
[2016-03-15] MEDS: ISOSORBIDE MONONITRATE 60 MG TAB PO SCH ×2 (00:01→21:52)
[2016-03-15] MEDS: LORazepam 1 MG TAB PO PRN ×2 (00:01→10:07)
[2016-03-15] MEDS: CARVEDILOL 12.5 MG TAB PO SCH ×3 (00:01→21:51)
[2016-03-15] MEDS: QUEtiapine FUMARATE 100 MG TAB PO SCH ×2 (00:01→21:52)
[2016-03-15] MEDS: EUCERIN CREAM 120 GM JAR TOPICAL SCH ×3 (00:08→21:58)
[2016-03-15] MEDS: BACITRACIN TOP OINT 15 GM TUBE TOP SCH ×4 (00:09→21:59)
[2016-03-15] MEDS: BETAMETHASONE DIPROPIONATE 0.05% OINT 15 GM TUBE TOP SCH ×3 (00:09→21:59)
[2016-03-15 06:48] LABS: INTERNATIONAL NORMALIZED RATIO 1.9 RATIO; PROTHROMBIN TIME - PATIENT 21.3 SEC (9.8-11.6)
[2016-03-15 07:44] VITALS: BP 150/99; PULSE 71; RESP 20; TEMP 96.4; O2SAT 99
[2016-03-15] MEDS: LACTULOSE SYRUP 20 GM/30 ML CUP PO SCH (08:14)
[2016-03-15] MEDS: POLYETHYLENE GLYCOL 17 GM PKG PO SCH (08:14)
[2016-03-15] MEDS: ENALAPRIL MALEATE 2.5 MG TAB PO SCH (08:14)
[2016-03-15] MEDS: FERROUS SULFATE 325 MG (65 MG ELEMENTAL IRON) TAB PO SCH (08:14)
[2016-03-15] MEDS: DOCUSATE SODIUM 50 MG/SENNA 8.6 MG TAB PO SCH ×3 (08:15→21:52)
[2016-03-15] MEDS: QUEtiapine FUMARATE 25 MG TAB PO SCH (08:15)
[2016-03-15] MEDS: ATORVASTATIN 40 MG TAB PO SCH (08:15)
[2016-03-15] MEDS: ENOXAPARIN SODIUM 100 MG/ML SYRINGE SQ SCH (12:04)
--- NOTE | 2016-03-15 14:27 | HHI.PR ---
Subjective Remarks BP noted to be elevated Patient denies cp/sob denies diarrhea denies fevers/chills Objective Vitals Vital Signs Date Time Temp Pulse Resp B/P Pulse Ox O2 Delivery O2 Flow Rate FiO2 03/15/16 07:44 96.4 71 20 150/99 99 03/14/16 20:00 98.0 77 20 145/93 91 I/O 03/14/16 03/14/16 03/14/16 03/15/16 03/15/16 03/15/16 06:59 14:59 22:59 06:59 14:59 22:59 Intake Total 0 ml 330 ml 1600 ml 760 ml 980 ml Output Total 0 ml Balance 0 ml 330 ml 1600 ml 760 ml 980 ml Intake Oral 0 ml 330 ml 1600 ml 760 ml 980 ml IV Total 0 ml 0 ml Output Urine Total 0 ml # Voids 2 2 1 2 # Bowel Movements 0 0 0 Result Diagram: 03/12/16 0642 Imaging Last Impressions Head CT 02/26/16 0000 Signed Impressions: Service Date/Time: Friday, February 26, 2016 20:28 - CONCLUSION: No bleed or other acute intracranial abnormality demonstrated. Old ischemic changes. Camacho Lyon MD Abdomen X-Ray 02/17/16 0000 Signed Impressions: Service Date/Time: Wednesday, February 17, 2016 12:13 - CONCLUSION: Moderate amount stool in the colon especially on the left side. There are some minimally prominent segments of small bowel in the upper abdomen. Camacho Santana MD Chest X-Ray 11/06/15 0000 Signed Impressions: Service Date/Time: Friday, November 06, 2015 11:35 - CONCLUSION: Compensated cardiomegaly, history of bypass otherwise negative. Superior most sternal wire is fractured. Didier Clay MD FACR Liver Ultrasound 10/30/15 0000 Signed Impressions: Service Date/Time: Friday, October 30, 2015 17:29 - CONCLUSION: 1. Cholelithiasis with probable gallbladder sludge and mild gallbladder distention. 2. Splenomegaly. Sameer Alexandra MD Modified Barium Swallow 10/27/15 0000 Signed Impressions: Service Date/Time: Tuesday, October 27, 2015 00:00 - CONCLUSION: Negative for penetration or aspiration. Please see speech pathology report. Tai Cohen MD Brain MRI 10/22/15 0000 Signed Impressions: Service Date/Time: September 14:38 - CONCLUSION: 1. No significant interval change is identified. There is stable restricted diffusion in the left basal ganglia representing an area of recent ischemia. There are no findings to indicate hemorrhagic transformation. The previously documented signal change within the right cerebral peduncle has nearly normalized. 2. Stable chronic white matter changes. Camacho Culp MD Neck Magnetic Resonance Angiography 10/21/15 0000 Signed Impressions: Service Date/Time: Wednesday, October 21, 2015 12:52 - CONCLUSION: . 1. Unremarkable MRA of the carotid arteries bilaterally. 2. Nonspecific possible collateral vessels in the soft tissues posterior to the right vertebral artery. The right verbal artery appears to be patent. If clinically indicated, a CTA could be performed for further evaluation. Abiodun Hall MD Head Magnetic Resonance Angiography 10/21/15 0000 Signed Impressions: Service Date/Time: Wednesday, October 21, 2015 12:52 - CONCLUSION: Unremarkable MRA of the brain. Abiodun Hall MD Objective Remarks GENERAL: Well-developed, well-nourished, in no acute distress. NAD. Alert to person. HEENT: Head is normocephalic without any lesions or masses noted. Facial features are symmetric. Extraocular muscles are intact. Conjunctivae were clear. NECK: Supple without any masses. Trachea midline no deviation. No JVD, CARDIAC: Regular rhythm, regular rate. S1/S2 are heard. No murmurs gallops or rubs. LUNGS: Clear to auscultation bilaterally. No wheeze, rhonchi or rales. No use of accessory muscles on inspiration or expiration. ABDOMEN: Soft, nontender. Nondistended. Bowel sounds heard in all 4 quadrants. No organomegaly or masses. Negative rebound, negative guarding. EXTREMITIES: No edema, pulses are equal bilaterally. No cyanosis or clubbing. Right [id number] amputation. Left foot and Multi-Podus boot, NEUROLOGY: Mood and affect appear appropriate. Cranial nerves II through XII grossly intact. Moving all extremities, speech is clear Procedures None Medications and IVs Current Medications Medications (Trade) Dose Ordered Sig/Estuardo Route Start Time Stop Time Status Last Admin (Tylenol) 650 mg Q4H PRN PO 10/30/15 05:30 (Tums Chew) 1,000 mg TID PRN CHEW 10/30/15 05:30 (Haydee-Colace) 2 tab BID PO 11/03/15 09:00 03/15/16 08:15 (Lactulose Liq) 30 ml DAILY PO 11/04/15 09:00 03/15/16 08:14 (Diprosone 0.05% Ointment) 1 applic BID TOP 12/08/15 12:30 03/15/16 08:16 (Coreg) 25 mg BID PO 12/12/15 21:00 03/15/16 08:14 (Pill Splitter) 1 ea UNSCH PRN OTHER 12/15/15 09:15 (Zofran Odt) 4 mg Q4H PRN PO 12/30/15 11:00 (Imdur) 60 mg HS PO 01/11/16 21:00 03/15/16 00:01 (Vasotec) 2.5 mg DAILY PO 01/12/16 09:00 03/15/16 08:14 (Eucerin Cream) 1 applic Q12HR TOPICAL 01/13/16 21:00 03/15/16 08:16 (Miralax) 17 gm DAILY PO 01/30/16 13:30 03/15/16 08:14 (Baciguent Oint) 1 applic Q8HR TOP 02/02/16 11:00 03/15/16 06:04 (Lipitor) 80 mg DAILY PO 02/17/16 09:00 03/15/16 08:15 (Dulcolax Supp) [address] 02/22/16 10:30 03/09/16 16:16 Enoxaparin Sodium 90 mg 90 mg Q24H SQ 03/03/16 12:00 03/15/16 12:04 (Custom Consult Pharmacy) 0 ml @ 0 mls/hr UNSCH OTHER 03/03/16 11:00 Ferrous Sulfate 325 mg 325 mg DAILY PO 03/06/16 09:00 03/15/16 08:14 (Coumadin Consult Pharmacy) 0 ml @ 0 mls/hr UNSCH OTHER 03/07/16 05:45 (SEROquel) 100 mg DAILY PO 03/14/16 09:00 03/15/16 08:15 (Cipro) 250 mg Q12HR PO 03/13/16 21:00 03/19/16 20:59 03/15/16 08:14 (Ativan) 1 mg Q8H PRN PO 03/13/16 17:45 03/15/16 10:07 (Coumadin) 6 mg DAILY@16 PO 03/14/16 16:00 03/14/16 16:00 (Haldol Inj) 2 mg Q8HR PRN IM 03/14/16 14:00 (SEROquel) 150 mg HS PO 03/14/16 21:00 03/15/16 00:01 Urinary Catheter: No Vascular Central Line Catheter: No A/P Problem List: (1) Cellulitis ICD Code: L03.90 Status: Resolved (2) Ischemic cardiomyopathy ICD Code: I25.5 Status: Chronic (3) Diabetes mellitus type 2 in obese ICD Code: E11.9 Status: Chronic (4) S/P BKA (below knee amputation) unilateral ICD Code: Z89.519 Status: Chronic (5) Acute metabolic encephalopathy ICD Code: G93.41 Status: Resolved (6) Bacteremia ICD Code: R78.81 Status: Resolved (7) Chronic systolic (congestive) heart failure ICD Code: I50.22 Status: Chronic (8) Venous stasis ulcer of left lower extremity ICD Code: I83.029 Status: Chronic (9) CVA (cerebral vascular accident) ICD Code: I63.9 Status: Chronic (10) Seborrheic dermatitis ICD Code: L21.9 Status: Resolved (11) Anemia ICD Code: D64.9 Status: Chronic Assessment and Plan 60-year-old male with admitted 10/14 with acute cortical infarct. Patient remains with significant cognitive deficit. Urinary tract infection -Urine culture indicates Klebsiella pneumonia, Pseudomonas species -Patient started on Ciprofloxacin - continue for a total of 10 days. Bilateral cerebrovascular accident, with persistent cognitive defect -MRI showed acute cortical infarct of the right cerebral peduncle to the pelvis , left thalamus punctate area of infarct -Neurology last seen patient on 11/13/15, recommended long-term anticoagulation -Continue with Statin. -Continue Coumadin 5 mg daily and monitor INR/PT keep INR between 2 and 3, pharmacy consult for dosing. INR 1.7, patient started on Lovenox by pharmacy -Reconsulted PT/OT, patient will require intermittent therapy while he remains in the hospital so he does not decompensate -Out of bed with nursing only. Patient was counseled to not get out of bed on his own. Fall risk due to cognitive deficit -Psychiatry reconsulted for evaluation and appreciate recommendations on patient 's cognition, agitation -Increase Seroquel to 100 mg twice daily 03/15 continue on restraint with a [place] bed. Metabolic/infection encephalopathy, resolved -Patient mentation back to baseline -Etiology included a combination of dehydration, worsening renal failure, urinary tract infection -Laboratory studies indicated mild worsening renal function Ischemic Cardiomyopathy/chronic systolic CHF LVEF 35% on echo 03/2015. Denies shortness of breath. Compensated. -Continue Coreg, Imdur, enalapril. -Could consider AICD if patient is able to consent, however patient is currently unable to consent -Fluid and sodium restrictions, follow volume status. Chronic kidney disease stage 3/4. Back to baseline -Likely due to poor by mouth intake, encourage water intake -Avoid nephrotoxins. -Monitor BMP intermittently. 03/15 . Creatinine improving. Down to 1.50 today. Remove fluid restriction. left tibial surface- with superficial wound - improving -posterior aspect with erythema avoid pressure Bacitracin bid Medication noncompliance, intermittent Case discussed with psychiatry, case management We'll discuss with nursing staff, this has been a long-term issue and nursing staff has been able to put his medications in applesauce and orange juice, and the patient takes the medications when done that way. Patient did take all his medications yesterday. 03/15 Patient took all medications today. Anemia with iron deficiency, hemoglobin stable since admission Iron studies indicate iron 45, TIBC 232, ferritin 345 Patient started on ferrous sulfate 325 mg daily Continue monitor CBC intermittently Bacteremia with Staphylococcus hemolyticus, from wounds. Resolved -Follow blood cultures have been negative since 10/16/15 -Status post Keflex and Cipro management -Infectious disease managed patient Diabetic mellitus - Glucose was well controlled. All insulin discontinued. -accu-checks discontinued as patient's blood sugar well controlled and Hgb A1c 6.9. -continue diet control Peripheral arterial disease-stable. -Continue anticoagulation Intermittent agitation- workup done to rule out infectious source causing change in mentation -Continue Seroquel 50 mg in the morning and 100 mg at night -Psychiatry reevaluated the patient on 02/17 Constipation, -Abdominal x-ray 02/16 indicates moderate amount of stool in the colon on the left side. -Milk of magnesia as needed. -MiraLAX, lactulose, Haydee-Colace daily, lactulose, MiraLAX -Dulcolax as needed Hypertension - 03/15Patient currently on lisinopril 2.5 mg by mouth daily, carvedilol 25 mg by mouth twice a day. Blood pressure uncontrolled with systolic blood pressure in the 150s. I will start the patient on amlodipine 10 mg by mouth daily. DVT prophylaxis - patient on Coumadin Problem Qualifiers (1) Cellulitis: (2) S/P BKA (below knee amputation) unilateral: Qualified Code: Z89.511 - S/P BKA (below knee amputation) unilateral, right (3) CVA (cerebral vascular accident): Qualified Code: I63.9 - Cerebrovascular accident (CVA), unspecified mechanism Mil Smith MD Mar 15, 2016 14:27
[2016-03-15] MEDS ORDERED: amLODIPine BESYLATE 5 MG TAB PO SCH (15:30)
[2016-03-15] MEDS ORDERED: HYDROmorphone HCL PF 1 MG/ML VIAL IV PUSH PRN (15:30)
[2016-03-15] MEDS ORDERED: MORPHINE SULFATE 4 MG/ML INJ IV PUSH PRN (15:30)
[2016-03-15] MEDS: WARFARIN SOD 6 MG TAB PO SCH (16:47)
[2016-03-15 22:02] VITALS: BP 161/90; PULSE 72; RESP 18; TEMP 99.4; O2SAT 98
[2016-03-16] MEDS: BACITRACIN TOP OINT 15 GM TUBE TOP SCH ×3 (05:29→21:00)
[2016-03-16 06:43] LABS: INTERNATIONAL NORMALIZED RATIO 1.7 RATIO; PROTHROMBIN TIME - PATIENT 18.8 SEC (9.8-11.6)
[2016-03-16 09:00] VITALS: BP 140/84; PULSE 80; RESP 18; TEMP 97.8; O2SAT 100
[2016-03-16] MEDS: BETAMETHASONE DIPROPIONATE 0.05% OINT 15 GM TUBE TOP SCH ×2 (09:00→21:00)
[2016-03-16] MEDS: CIPROFLOXACIN 250 MG TAB PO SCH ×2 (09:00→20:59)
[2016-03-16] MEDS: EUCERIN CREAM 120 GM JAR TOPICAL SCH ×2 (09:00→21:00)
[2016-03-16] MEDS: ENALAPRIL MALEATE 2.5 MG TAB PO SCH (09:27)
[2016-03-16] MEDS: POLYETHYLENE GLYCOL 17 GM PKG PO SCH (09:27)
[2016-03-16] MEDS: LACTULOSE SYRUP 20 GM/30 ML CUP PO SCH (09:28)
[2016-03-16] MEDS: QUEtiapine FUMARATE 25 MG TAB PO SCH (09:28)
[2016-03-16] MEDS: ATORVASTATIN 40 MG TAB PO SCH (09:28)
[2016-03-16] MEDS: CARVEDILOL 12.5 MG TAB PO SCH ×2 (09:28→20:59)
[2016-03-16] MEDS: FERROUS SULFATE 325 MG (65 MG ELEMENTAL IRON) TAB PO SCH (09:29)
[2016-03-16] MEDS: DOCUSATE SODIUM 50 MG/SENNA 8.6 MG TAB PO SCH ×2 (09:29→20:59)
[2016-03-16] MEDS: ENOXAPARIN SODIUM 100 MG/ML SYRINGE SQ SCH (10:15)
--- NOTE | 2016-03-16 12:53 | HHI.PR ---
Subjective Remarks Patient has no complaints denies cp/sob eating well BP noted to be elevated Objective Vitals Vital Signs Date Time Temp Pulse Resp B/P Pulse Ox O2 Delivery O2 Flow Rate FiO2 03/16/16 09:00 97.8 80 18 140/84 100 03/15/16 22:02 99.4 72 18 161/90 98 I/O 03/15/16 03/15/16 03/15/16 03/16/16 03/16/16 03/16/16 07:00 15:00 23:00 07:00 15:00 23:00 Intake Total 760 ml 980 ml 480 ml 0 ml Output Total 100 ml Balance 760 ml 980 ml 380 ml 0 ml Intake Oral 760 ml 980 ml 480 ml IV Total 0 ml 0 ml 0 ml Output Urine Total 100 ml # Voids 1 2 1 1 # Bowel Movements 0 Result Diagram: 03/12/16 0642 Objective Remarks GENERAL: Well-developed, well-nourished, in no acute distress. NAD. Alert to person. HEENT: Head is normocephalic without any lesions or masses noted. Facial features are symmetric. Extraocular muscles are intact. Conjunctivae were clear. NECK: Supple without any masses. Trachea midline no deviation. No JVD, CARDIAC: Regular rhythm, regular rate. S1/S2 are heard. No murmurs gallops or rubs. LUNGS: Clear to auscultation bilaterally. No wheeze, rhonchi or rales. No use of accessory muscles on inspiration or expiration. ABDOMEN: Soft, nontender. Nondistended. Bowel sounds heard in all 4 quadrants. No organomegaly or masses. Negative rebound, negative guarding. EXTREMITIES: No edema, pulses are equal bilaterally. No cyanosis or clubbing. Right [id number] amputation. Left foot and Multi-Podus boot, NEUROLOGY: Mood and affect appear appropriate. Cranial nerves II through XII grossly intact. Moving all extremities, speech is clear Procedures None Medications and IVs Current Medications Medications (Trade) Dose Ordered Sig/Estuardo Route Start Time Stop Time Status Last Admin (Tylenol) 650 mg Q4H PRN PO 10/30/15 05:30 (Tums Chew) 1,000 mg TID PRN CHEW 10/30/15 05:30 (Haydee-Colace) 2 tab BID PO 11/03/15 09:00 03/16/16 20:59 (Lactulose Liq) 30 ml DAILY PO 11/04/15 09:00 03/16/16 09:28 (Diprosone 0.05% Ointment) 1 applic BID TOP 12/08/15 12:30 03/16/16 21:00 (Coreg) 25 mg BID PO 12/12/15 21:00 03/16/16 20:59 (Pill Splitter) 1 ea UNSCH PRN OTHER 12/15/15 09:15 (Zofran Odt) 4 mg Q4H PRN PO 12/30/15 11:00 (Imdur) 60 mg HS PO 01/11/16 21:00 03/16/16 20:59 (Vasotec) 2.5 mg DAILY PO 01/12/16 09:00 03/16/16 09:27 (Eucerin Cream) 1 applic Q12HR TOPICAL 01/13/16 21:00 03/16/16 21:00 (Miralax) 17 gm DAILY PO 01/30/16 13:30 03/16/16 09:27 (Baciguent Oint) 1 applic Q8HR TOP 02/02/16 11:00 03/16/16 21:00 (Lipitor) 80 mg DAILY PO 02/17/16 09:00 03/16/16 09:28 (Dulcolax Supp) 10 mg DAILY PRN VA 02/22/16 10:30 03/09/16 16:16 Enoxaparin Sodium 90 mg 90 mg Q24H SQ 03/03/16 12:00 03/16/16 10:15 (Custom Consult Pharmacy) 0 ml @ 0 mls/hr UNSCH OTHER 03/03/16 11:00 Ferrous Sulfate 325 mg 325 mg DAILY PO 03/06/16 09:00 03/16/16 09:29 (Coumadin Consult Pharmacy) 0 ml @ 0 mls/hr UNSCH OTHER 03/07/16 05:45 (SEROquel) 100 mg DAILY PO 03/14/16 09:00 03/16/16 09:28 (Cipro) 250 mg Q12HR PO 03/13/16 21:00 03/19/16 20:59 03/16/16 20:59 (Ativan) 1 mg Q8H PRN PO 03/13/16 17:45 03/15/16 10:07 (Haldol Inj) 2 mg Q8HR PRN IM 03/14/16 14:00 (SEROquel) 150 mg HS PO 03/14/16 21:00 03/16/16 20:59 (Norvasc) 10 mg DAILY PO 03/16/16 09:00 03/16/16 09:29 (Coumadin) 7.5 mg DAILY@16 PO 03/16/16 16:00 03/16/16 16:00 A/P Problem List: (1) Cellulitis ICD Code: L03.90 Status: Resolved (2) Ischemic cardiomyopathy ICD Code: I25.5 Status: Chronic (3) Diabetes mellitus type 2 in obese ICD Code: E11.9 Status: Chronic (4) S/P BKA (below knee amputation) unilateral ICD Code: Z89.519 Status: Chronic (5) Acute metabolic encephalopathy ICD Code: G93.41 Status: Resolved (6) Bacteremia ICD Code: R78.81 Status: Resolved (7) Chronic systolic (congestive) heart failure ICD Code: I50.22 Status: Chronic (8) Venous stasis ulcer of left lower extremity ICD Code: I83.029 Status: Chronic (9) CVA (cerebral vascular accident) ICD Code: I63.9 Status: Chronic (10) Seborrheic dermatitis ICD Code: L21.9 Status: Resolved (11) Anemia ICD Code: D64.9 Status: Chronic Assessment and Plan 60-year-old male with admitted 10/14 with acute cortical infarct. Patient remains with significant cognitive deficit. Urinary tract infection -Urine culture indicates Klebsiella pneumonia, Pseudomonas species -Patient started on Ciprofloxacin - continue for a total of 10 days. Bilateral cerebrovascular accident, with persistent cognitive defect -MRI showed acute cortical infarct of the right cerebral peduncle to the pelvis , left thalamus punctate area of infarct -Neurology last seen patient on 11/13/15, recommended long-term anticoagulation -Continue with Statin. -Continue Coumadin 5 mg daily and monitor INR/PT keep INR between 2 and 3, pharmacy consult for dosing. INR 1.7, patient started on Lovenox by pharmacy -Reconsulted PT/OT, patient will require intermittent therapy while he remains in the hospital so he does not decompensate -Out of bed with nursing only. Patient was counseled to not get out of bed on his own. Fall risk due to cognitive deficit -Psychiatry reconsulted for evaluation and appreciate recommendations on patient 's cognition, agitation -Increase Seroquel to 100 mg twice daily 03/15 continue on restraint with a [place] bed. Metabolic/infection encephalopathy, resolved -Patient mentation back to baseline -Etiology included a combination of dehydration, worsening renal failure, urinary tract infection -Laboratory studies indicated mild worsening renal function Ischemic Cardiomyopathy/chronic systolic CHF LVEF 35% on echo 03/2015. Denies shortness of breath. Compensated. -Continue Coreg, Imdur, enalapril. -Could consider AICD if patient is able to consent, however patient is currently unable to consent -Fluid and sodium restrictions, follow volume status. Chronic kidney disease stage 3/4. Back to baseline -Likely due to poor by mouth intake, encourage water intake -Avoid nephrotoxins. -Monitor BMP intermittently. 03/15 . Creatinine improving. Down to 1.50 today. Remove fluid restriction. left tibial surface- with superficial wound - improving -posterior aspect with erythema avoid pressure Bacitracin bid Medication noncompliance, intermittent Case discussed with psychiatry, case management We'll discuss with nursing staff, this has been a long-term issue and nursing staff has been able to put his medications in applesauce and orange juice, and the patient takes the medications when done that way. Patient did take all his medications yesterday. 03/15 Patient took all medications today. Anemia with iron deficiency, hemoglobin stable since admission Iron studies indicate iron 45, TIBC 232, ferritin 345 Patient started on ferrous sulfate 325 mg daily Continue monitor CBC intermittently Bacteremia with Staphylococcus hemolyticus, from wounds. Resolved -Follow blood cultures have been negative since 10/16/15 -Status post Keflex and Cipro management -Infectious disease managed patient Diabetic mellitus - Glucose was well controlled. All insulin discontinued. -accu-checks discontinued as patient's blood sugar well controlled and Hgb A1c 6.9. -continue diet control Peripheral arterial disease-stable. -Continue anticoagulation Intermittent agitation- workup done to rule out infectious source causing change in mentation -Continue Seroquel 50 mg in the morning and 100 mg at night -Psychiatry reevaluated the patient on 02/17 Constipation, -Abdominal x-ray 02/16 indicates moderate amount of stool in the colon on the left side. -Milk of magnesia as needed. -MiraLAX, lactulose, Haydee-Colace daily, lactulose, MiraLAX -Dulcolax as needed Hypertension - 03/15Patient currently on lisinopril 2.5 mg by mouth daily, carvedilol 25 mg by mouth twice a day. Blood pressure uncontrolled with systolic blood pressure in the 150s. I will start the patient on amlodipine 10 mg by mouth daily. DVT prophylaxis - patient on Coumadin Problem Qualifiers (1) Cellulitis: (2) S/P BKA (below knee amputation) unilateral: Qualified Code: Z89.511 - S/P BKA (below knee amputation) unilateral, right (3) CVA (cerebral vascular accident): Qualified Code: I63.9 - Cerebrovascular accident (CVA), unspecified mechanism Mil Smith MD Mar 16, 2016 12:53
[2016-03-16] MEDS: WARFARIN SOD 7.5 MG TAB PO SCH (16:00)
[2016-03-16 20:00] VITALS: BP 126/81; PULSE 75; RESP 18; TEMP 96.3; O2SAT 96
[2016-03-16] MEDS: QUEtiapine FUMARATE 100 MG TAB PO SCH (20:59)
[2016-03-16] MEDS: ISOSORBIDE MONONITRATE 60 MG TAB PO SCH (20:59)
[2016-03-17] MEDS: BACITRACIN TOP OINT 15 GM TUBE TOP SCH ×3 (06:00→20:10)
[2016-03-17 06:36] LABS: INTERNATIONAL NORMALIZED RATIO 1.9 RATIO; PROTHROMBIN TIME - PATIENT 21.4 SEC (9.8-11.6)
[2016-03-17] MEDS: LACTULOSE SYRUP 20 GM/30 ML CUP PO SCH (09:00)
[2016-03-17] MEDS: BETAMETHASONE DIPROPIONATE 0.05% OINT 15 GM TUBE TOP SCH ×2 (09:00→20:10)
[2016-03-17] MEDS: QUEtiapine FUMARATE 25 MG TAB PO SCH (10:20)
[2016-03-17] MEDS: FERROUS SULFATE 325 MG (65 MG ELEMENTAL IRON) TAB PO SCH (10:20)
[2016-03-17] MEDS: POLYETHYLENE GLYCOL 17 GM PKG PO SCH (10:20)
[2016-03-17] MEDS: ENALAPRIL MALEATE 2.5 MG TAB PO SCH (10:20)
[2016-03-17] MEDS: DOCUSATE SODIUM 50 MG/SENNA 8.6 MG TAB PO SCH ×2 (10:20→20:10)
[2016-03-17] MEDS: ATORVASTATIN 40 MG TAB PO SCH (10:20)
[2016-03-17] MEDS: CARVEDILOL 12.5 MG TAB PO SCH ×2 (10:20→20:10)
[2016-03-17] MEDS: ENOXAPARIN SODIUM 100 MG/ML SYRINGE SQ SCH (10:21)
[2016-03-17] MEDS: EUCERIN CREAM 120 GM JAR TOPICAL SCH ×2 (10:22→20:10)
[2016-03-17] MEDS: CIPROFLOXACIN 250 MG TAB PO SCH ×2 (10:30→20:10)
[2016-03-17 12:14] VITALS: BP 152/95; PULSE 76; RESP 16; TEMP 96.9; O2SAT 97
--- NOTE | 2016-03-17 12:21 | HHI.PR ---
Subjective Remarks patient has no complaints denies cp/sob afebrile no major overnight events Objective Vitals Vital Signs Date Time Temp Pulse Resp B/P Pulse Ox O2 Delivery O2 Flow Rate FiO2 03/17/16 12:14 96.9 76 16 152/95 97 03/16/16 20:00 96.3 75 18 126/81 96 I/O 03/16/16 03/16/16 03/16/16 03/17/16 03/17/16 03/17/16 06:59 14:59 22:59 06:59 14:59 22:59 Intake Total 0 ml 550 ml 450 ml Balance 0 ml 550 ml 450 ml Intake Oral 550 ml 450 ml IV Total 0 ml # Voids 1 2 # Bowel Movements 0 Imaging Last Impressions Head CT 02/26/16 0000 Signed Impressions: Service Date/Time: Friday, February 26, 2016 20:28 - CONCLUSION: No bleed or other acute intracranial abnormality demonstrated. Old ischemic changes. Camacho Lyon MD Abdomen X-Ray 02/17/16 0000 Signed Impressions: Service Date/Time: Wednesday, February 17, 2016 12:13 - CONCLUSION: Moderate amount stool in the colon especially on the left side. There are some minimally prominent segments of small bowel in the upper abdomen. Camacho Santana MD Chest X-Ray 11/06/15 0000 Signed Impressions: Service Date/Time: Friday, November 06, 2015 11:35 - CONCLUSION: Compensated cardiomegaly, history of bypass otherwise negative. Superior most sternal wire is fractured. Didier Clay MD FACR Liver Ultrasound 10/30/15 0000 Signed Impressions: Service Date/Time: Friday, October 30, 2015 17:29 - CONCLUSION: 1. Cholelithiasis with probable gallbladder sludge and mild gallbladder distention. 2. Splenomegaly. Sameer Alexandra MD Modified Barium Swallow 10/27/15 0000 Signed Impressions: Service Date/Time: Tuesday, October 27, 2015 00:00 - CONCLUSION: Negative for penetration or aspiration. Please see speech pathology report. Tai Cohen MD Brain MRI 10/22/15 0000 Signed Impressions: Service Date/Time: September 14:38 - CONCLUSION: 1. No significant interval change is identified. There is stable restricted diffusion in the left basal ganglia representing an area of recent ischemia. There are no findings to indicate hemorrhagic transformation. The previously documented signal change within the right cerebral peduncle has nearly normalized. 2. Stable chronic white matter changes. Camacho Culp MD Neck Magnetic Resonance Angiography 10/21/15 0000 Signed Impressions: Service Date/Time: Wednesday, October 21, 2015 12:52 - CONCLUSION: . 1. Unremarkable MRA of the carotid arteries bilaterally. 2. Nonspecific possible collateral vessels in the soft tissues posterior to the right vertebral artery. The right verbal artery appears to be patent. If clinically indicated, a CTA could be performed for further evaluation. Abiodun Hall MD Head Magnetic Resonance Angiography 10/21/15 0000 Signed Impressions: Service Date/Time: Wednesday, October 21, 2015 12:52 - CONCLUSION: Unremarkable MRA of the brain. Abiodun Hall MD Objective Remarks GENERAL: Well-developed, well-nourished, in no acute distress. NAD. Alert to person. HEENT: Head is normocephalic without any lesions or masses noted. Facial features are symmetric. Extraocular muscles are intact. Conjunctivae were clear. NECK: Supple without any masses. Trachea midline no deviation. No JVD, CARDIAC: Regular rhythm, regular rate. S1/S2 are heard. No murmurs gallops or rubs. LUNGS: Clear to auscultation bilaterally. No wheeze, rhonchi or rales. No use of accessory muscles on inspiration or expiration. ABDOMEN: Soft, nontender. Nondistended. Bowel sounds heard in all 4 quadrants. No organomegaly or masses. Negative rebound, negative guarding. EXTREMITIES: No edema, pulses are equal bilaterally. No cyanosis or clubbing. Right [id number]-[id number]-[id number] amputation. Left foot and Multi-Podus boot, NEUROLOGY: Mood and affect appear appropriate. Cranial nerves II through XII grossly intact. Moving all extremities, speech is clear Procedures None Urinary Catheter: No Vascular Central Line Catheter: No A/P Problem List: (1) Cellulitis ICD Code: L03.90 Status: Resolved (2) Ischemic cardiomyopathy ICD Code: I25.5 Status: Chronic (3) Diabetes mellitus type 2 in obese ICD Code: E11.9 Status: Chronic (4) S/P BKA (below knee amputation) unilateral ICD Code: Z89.519 Status: Chronic (5) Acute metabolic encephalopathy ICD Code: G93.41 Status: Resolved (6) Bacteremia ICD Code: R78.81 Status: Resolved (7) Chronic systolic (congestive) heart failure ICD Code: I50.22 Status: Chronic (8) Venous stasis ulcer of left lower extremity ICD Code: I83.029 Status: Chronic (9) CVA (cerebral vascular accident) ICD Code: I63.9 Status: Chronic (10) Seborrheic dermatitis ICD Code: L21.9 Status: Resolved (11) Anemia ICD Code: D64.9 Status: Chronic Assessment and Plan 60-year-old male with admitted 10/14 with acute cortical infarct. Patient remains with significant cognitive deficit. Urinary tract infection -Urine culture indicates Klebsiella pneumonia, Pseudomonas species -Patient started on Ciprofloxacin - continue for a total of 10 days. Bilateral cerebrovascular accident, with persistent cognitive defect -MRI showed acute cortical infarct of the right cerebral peduncle to the pelvis , left thalamus punctate area of infarct -Neurology last seen patient on 11/13/15, recommended long-term anticoagulation -Continue with Statin. -Continue Coumadin 5 mg daily and monitor INR/PT keep INR between 2 and 3, pharmacy consult for dosing. INR 1.7, patient started on Lovenox by pharmacy -Reconsulted PT/OT, patient will require intermittent therapy while he remains in the hospital so he does not decompensate -Out of bed with nursing only. Patient was counseled to not get out of bed on his own. Fall risk due to cognitive deficit -Psychiatry reconsulted for evaluation and appreciate recommendations on patient 's cognition, agitation -Increase Seroquel to 100 mg twice daily 03/15 continue on restraint with a [place] bed. 03/17 Patient's behavior seems to be improved. will DC mino bed and see how patient does. Metabolic/infection encephalopathy, resolved -Patient mentation back to baseline -Etiology included a combination of dehydration, worsening renal failure, urinary tract infection -Laboratory studies indicated mild worsening renal function Ischemic Cardiomyopathy/chronic systolic CHF LVEF 35% on echo 03/2015. Denies shortness of breath. Compensated. -Continue Coreg, Imdur, enalapril. -Could consider AICD if patient is able to consent, however patient is currently unable to consent -Fluid and sodium restrictions, follow volume status. Chronic kidney disease stage 3/4. Back to baseline -Likely due to poor by mouth intake, encourage water intake -Avoid nephrotoxins. -Monitor BMP intermittently. 03/15 . Creatinine improving. Down to 1.50 today. Remove fluid restriction. left tibial surface- with superficial wound - improving -posterior aspect with erythema avoid pressure Bacitracin bid Medication noncompliance, intermittent Case discussed with psychiatry, case management We'll discuss with nursing staff, this has been a long-term issue and nursing staff has been able to put his medications in applesauce and orange juice, and the patient takes the medications when done that way. Patient did take all his medications yesterday. 03/15 Patient took all medications today. Anemia with iron deficiency, hemoglobin stable since admission Iron studies indicate iron 45, TIBC 232, ferritin 345 Patient started on ferrous sulfate 325 mg daily Continue monitor CBC intermittently Bacteremia with Staphylococcus hemolyticus, from wounds. Resolved -Follow blood cultures have been negative since 10/16/15 -Status post Keflex and Cipro management -Infectious disease managed patient Diabetic mellitus - Glucose was well controlled. All insulin discontinued. -accu-checks discontinued as patient's blood sugar well controlled and Hgb A1c 6.9. -continue diet control Peripheral arterial disease-stable. -Continue anticoagulation Intermittent agitation- workup done to rule out infectious source causing change in mentation -Continue Seroquel 50 mg in the morning and 100 mg at night -Psychiatry reevaluated the patient on 02/17 Constipation, -Abdominal x-ray 02/16 indicates moderate amount of stool in the colon on the left side. -Milk of magnesia as needed. -MiraLAX, lactulose, Haydee-Colace daily, lactulose, MiraLAX -Dulcolax as needed Hypertension - 03/15Patient currently on lisinopril 2.5 mg by mouth daily, carvedilol 25 mg by mouth twice a day. Blood pressure uncontrolled with systolic blood pressure in the 150s. I will start the patient on amlodipine 10 mg by mouth daily. - 03/17 the pressure seems to be stable. Continue lisinopril, carvedilol and amlodipine. DVT prophylaxis - patient on Coumadin Problem Qualifiers (1) Cellulitis: (2) S/P BKA (below knee amputation) unilateral: Qualified Code: Z89.511 - S/P BKA (below knee amputation) unilateral, right (3) CVA (cerebral vascular accident): Qualified Code: I63.9 - Cerebrovascular accident (CVA), unspecified mechanism Mil Smith MD Mar 17, 2016 12:21
[2016-03-17] MEDS: WARFARIN SOD 7.5 MG TAB PO SCH ×2 (15:51→15:52)
[2016-03-17 20:00] VITALS: BP 142/91; PULSE 79; RESP 20; TEMP 97.4; O2SAT 98
[2016-03-17] MEDS: ISOSORBIDE MONONITRATE 60 MG TAB PO SCH (20:09)
[2016-03-17] MEDS: QUEtiapine FUMARATE 100 MG TAB PO SCH (20:10)
[2016-03-18] MEDS: BACITRACIN TOP OINT 15 GM TUBE TOP SCH ×3 (06:00→21:38)
[2016-03-18 07:42] LABS: INTERNATIONAL NORMALIZED RATIO 2.1 RATIO; PROTHROMBIN TIME - PATIENT 24.4 SEC (9.8-11.6)
[2016-03-18 08:00] VITALS: BP 136/80; PULSE 78; RESP 17; TEMP 98.2; O2SAT 95
[2016-03-18] MEDS: BETAMETHASONE DIPROPIONATE 0.05% OINT 15 GM TUBE TOP SCH ×2 (09:00→21:00)
[2016-03-18] MEDS: LACTULOSE SYRUP 20 GM/30 ML CUP PO SCH (09:00)
[2016-03-18] MEDS: ATORVASTATIN 40 MG TAB PO SCH (10:25)
[2016-03-18] MEDS: ENALAPRIL MALEATE 2.5 MG TAB PO SCH (10:25)
[2016-03-18] MEDS: POLYETHYLENE GLYCOL 17 GM PKG PO SCH (10:25)
[2016-03-18] MEDS: FERROUS SULFATE 325 MG (65 MG ELEMENTAL IRON) TAB PO SCH (10:25)
[2016-03-18] MEDS: DOCUSATE SODIUM 50 MG/SENNA 8.6 MG TAB PO SCH ×2 (10:25→21:35)
[2016-03-18] MEDS: CIPROFLOXACIN 250 MG TAB PO SCH ×2 (10:26→21:33)
[2016-03-18] MEDS: CARVEDILOL 12.5 MG TAB PO SCH ×2 (10:26→21:33)
[2016-03-18] MEDS: QUEtiapine FUMARATE 25 MG TAB PO SCH (10:26)
[2016-03-18] MEDS: EUCERIN CREAM 120 GM JAR TOPICAL SCH ×2 (10:27→21:38)
[2016-03-18] MEDS: ENOXAPARIN SODIUM 100 MG/ML SYRINGE SQ SCH (12:41)
--- NOTE | 2016-03-18 19:39 | HHI.PR ---
Subjective Remarks Entry patient seen earlier at 12 AM. No major overnight events. As per Norris patient refusing warfarin Patient denies chest pain or shortness of breath Objective Vitals Vital Signs Date Time Temp Pulse Resp B/P Pulse Ox O2 Delivery O2 Flow Rate FiO2 03/18/16 08:00 98.2 78 17 136/80 95 03/17/16 20:00 97.4 79 20 142/91 98 I/O 03/17/16 03/17/16 03/17/16 03/18/16 03/18/16 03/18/16 07:00 15:00 23:00 07:00 15:00 23:00 Intake Total 1200 ml 240 ml 240 ml Balance 1200 ml 240 ml 240 ml Intake Oral 1200 ml 240 ml 240 ml # Voids 3 1 # Bowel Movements 0 0 Imaging Last Impressions Head CT 02/26/16 0000 Signed Impressions: Service Date/Time: Friday, February 26, 2016 20:28 - CONCLUSION: No bleed or other acute intracranial abnormality demonstrated. Old ischemic changes. Camacho Lyon MD Abdomen X-Ray 02/17/16 0000 Signed Impressions: Service Date/Time: Wednesday, February 17, 2016 12:13 - CONCLUSION: Moderate amount stool in the colon especially on the left side. There are some minimally prominent segments of small bowel in the upper abdomen. Camacho Santana MD Chest X-Ray 11/06/15 0000 Signed Impressions: Service Date/Time: Friday, November 06, 2015 11:35 - CONCLUSION: Compensated cardiomegaly, history of bypass otherwise negative. Superior most sternal wire is fractured. Didier Clay MD FACR Liver Ultrasound 10/30/15 0000 Signed Impressions: Service Date/Time: Friday, October 30, 2015 17:29 - CONCLUSION: 1. Cholelithiasis with probable gallbladder sludge and mild gallbladder distention. 2. Splenomegaly. Sameer Alexandra MD Modified Barium Swallow 10/27/15 0000 Signed Impressions: Service Date/Time: Tuesday, October 27, 2015 00:00 - CONCLUSION: Negative for penetration or aspiration. Please see speech pathology report. Tai Cohen MD Brain MRI 10/22/15 0000 Signed Impressions: Service Date/Time: September 14:38 - CONCLUSION: 1. No significant interval change is identified. There is stable restricted diffusion in the left basal ganglia representing an area of recent ischemia. There are no findings to indicate hemorrhagic transformation. The previously documented signal change within the right cerebral peduncle has nearly normalized. 2. Stable chronic white matter changes. Camacho Culp MD Neck Magnetic Resonance Angiography 10/21/15 0000 Signed Impressions: Service Date/Time: Wednesday, October 21, 2015 12:52 - CONCLUSION: . 1. Unremarkable MRA of the carotid arteries bilaterally. 2. Nonspecific possible collateral vessels in the soft tissues posterior to the right vertebral artery. The right verbal artery appears to be patent. If clinically indicated, a CTA could be performed for further evaluation. Abiodun Hall MD Head Magnetic Resonance Angiography 10/21/15 0000 Signed Impressions: Service Date/Time: Wednesday, October 21, 2015 12:52 - CONCLUSION: Unremarkable MRA of the brain. Abiodun Hall MD Objective Remarks GENERAL: Well-developed, well-nourished, in no acute distress. NAD. Alert to person. HEENT: Head is normocephalic without any lesions or masses noted. Facial features are symmetric. Extraocular muscles are intact. Conjunctivae were clear. NECK: Supple without any masses. Trachea midline no deviation. No JVD, CARDIAC: Regular rhythm, regular rate. S1/S2 are heard. No murmurs gallops or rubs. LUNGS: Clear to auscultation bilaterally. No wheeze, rhonchi or rales. No use of accessory muscles on inspiration or expiration. ABDOMEN: Soft, nontender. Nondistended. Bowel sounds heard in all 4 quadrants. No organomegaly or masses. Negative rebound, negative guarding. EXTREMITIES: No edema, pulses are equal bilaterally. No cyanosis or clubbing. Right [id number] amputation. Left foot and Multi-Podus boot, NEUROLOGY: Mood and affect appear appropriate. Cranial nerves II through XII grossly intact. Moving all extremities, speech is clear Procedures None Medications and IVs Current Medications Medications (Trade) Dose Ordered Sig/Estuardo Route Start Time Stop Time Status Last Admin (Tylenol) 650 mg Q4H PRN PO 10/30/15 05:30 (Tums Chew) 1,000 mg TID PRN CHEW 10/30/15 05:30 (Haydee-Colace) 2 tab BID PO 11/03/15 09:00 11/18/16 10:25 (Lactulose Liq) 30 ml DAILY PO 11/04/15 09:00 03/16/16 09:28 (Diprosone 0.05% Ointment) 1 applic BID TOP 12/08/15 12:30 03/16/16 21:00 (Coreg) 25 mg BID PO 12/12/15 21:00 03/18/16 10:26 (Pill Splitter) 1 ea UNSCH PRN OTHER 12/15/15 09:15 03/17/16 10:25 (Zofran Odt) 4 mg Q4H PRN PO 12/30/15 11:00 (Imdur) 60 mg HS PO 01/11/16 21:00 03/17/16 20:09 (Vasotec) 2.5 mg DAILY PO 01/12/16 09:00 03/18/16 10:25 (Eucerin Cream) 1 applic Q12HR TOPICAL 01/13/16 21:00 03/18/16 10:27 (Miralax) 17 gm DAILY PO 01/30/16 13:30 03/18/16 10:25 (Baciguent Oint) 1 applic Q8HR TOP 02/02/16 11:00 03/18/16 12:42 (Lipitor) 80 mg DAILY PO 02/17/16 09:00 03/18/16 10:25 (Dulcolax Supp) 10 mg DAILY PRN AK 02/22/16 10:30 03/09/16 16:16 Enoxaparin Sodium 90 mg 90 mg Q24H SQ 03/03/16 12:00 Hold 03/18/16 12:41 (Custom Consult Pharmacy) 0 ml @ 0 mls/hr UNSCH OTHER 03/03/16 11:00 Ferrous Sulfate 325 mg 325 mg DAILY PO 03/06/16 09:00 03/18/16 10:25 (Coumadin Consult Pharmacy) 0 ml @ 0 mls/hr UNSCH OTHER 03/07/16 05:45 (SEROquel) 100 mg DAILY PO 03/14/16 09:00 03/18/16 10:26 (Cipro) 250 mg Q12HR PO 03/13/16 21:00 03/19/16 20:59 03/18/16 10:26 (Ativan) 1 mg Q8H PRN PO 03/13/16 17:45 03/15/16 10:07 (Haldol Inj) 2 mg Q8HR PRN IM 03/14/16 14:00 (SEROquel) 150 mg HS PO 03/14/16 21:00 03/17/16 20:10 (Norvasc) 10 mg DAILY PO 03/16/16 09:00 03/18/16 10:25 (Coumadin) 5 mg DAILY@16 PO 03/19/16 16:00 Urinary Catheter: No Vascular Central Line Catheter: No A/P Problem List: (1) Cellulitis ICD Code: L03.90 Status: Resolved (2) Ischemic cardiomyopathy ICD Code: I25.5 Status: Chronic (3) Diabetes mellitus type 2 in obese ICD Code: E11.9 Status: Chronic (4) S/P BKA (below knee amputation) unilateral ICD Code: Z89.519 Status: Chronic (5) Acute metabolic encephalopathy ICD Code: G93.41 Status: Resolved (6) Bacteremia ICD Code: R78.81 Status: Resolved (7) Chronic systolic (congestive) heart failure ICD Code: I50.22 Status: Chronic (8) Venous stasis ulcer of left lower extremity ICD Code: I83.029 Status: Chronic (9) CVA (cerebral vascular accident) ICD Code: I63.9 Status: Chronic (10) Seborrheic dermatitis ICD Code: L21.9 Status: Resolved (11) Anemia ICD Code: D64.9 Status: Chronic Assessment and Plan 60-year-old male with admitted 10/14 with acute cortical infarct. Patient remains with significant cognitive deficit. Urinary tract infection -Urine culture indicates Klebsiella pneumonia, Pseudomonas species -Patient started on Ciprofloxacin - continue for a total of 10 days. Bilateral cerebrovascular accident, with persistent cognitive defect -MRI showed acute cortical infarct of the right cerebral peduncle to the pelvis , left thalamus punctate area of infarct -Neurology last seen patient on 11/13/15, recommended long-term anticoagulation -Continue with Statin. -Continue Coumadin 5 mg daily and monitor INR/PT keep INR between 2 and 3, pharmacy consult for dosing. -Reconsulted PT/OT, patient will require intermittent therapy while he remains in the hospital so he does not decompensate -Out of bed with nursing only. Patient was counseled to not get out of bed on his own. Fall risk due to cognitive deficit -Psychiatry reconsulted for evaluation and appreciate recommendations on patient 's cognition, agitation -Increase Seroquel to 100 mg twice daily 03/15 continue on restraint with a [place] bed. 03/17 Patient's behavior seems to be improved. will DC mino bed and see how patient does. 03/18 patient not able to be calm without [place] bed. As per RN student requiring [place] bed Due to fall risk. INR 2.1. Patient is refusing warfarin, I discussed with the patient importance of him in compliant with taking warfarin, stated he was, take his warfarin. Continue to monitor PT/INR if it falls below 2 then he will need to be placed again on Lovenox. Metabolic/infection encephalopathy, resolved -Patient mentation back to baseline -Etiology included a combination of dehydration, worsening renal failure, urinary tract infection -Laboratory studies indicated mild worsening renal function Ischemic Cardiomyopathy/chronic systolic CHF LVEF 35% on echo 03/2015. Denies shortness of breath. Compensated. -Continue Coreg, Imdur, enalapril. -Could consider AICD if patient is able to consent, however patient is currently unable to consent -Fluid and sodium restrictions, follow volume status. Chronic kidney disease stage 3/4. Back to baseline -Likely due to poor by mouth intake, encourage water intake -Avoid nephrotoxins. -Monitor BMP intermittently. 03/15 . Creatinine improving. Down to 1.50 today. Remove fluid restriction. left tibial surface- with superficial wound - improving -posterior aspect with erythema avoid pressure Bacitracin bid Medication noncompliance, intermittent Case discussed with psychiatry, case management We'll discuss with nursing staff, this has been a long-term issue and nursing staff has been able to put his medications in applesauce and orange juice, and the patient takes the medications when done that way. Patient did take all his medications yesterday. 03/15 Patient took all medications today. Anemia with iron deficiency, hemoglobin stable since admission Iron studies indicate iron 45, TIBC 232, ferritin 345 Patient started on ferrous sulfate 325 mg daily Continue monitor CBC intermittently Bacteremia with Staphylococcus hemolyticus, from wounds. Resolved -Follow blood cultures have been negative since 10/16/15 -Status post Keflex and Cipro management -Infectious disease managed patient Diabetic mellitus - Glucose was well controlled. All insulin discontinued. -accu-checks discontinued as patient's blood sugar well controlled and Hgb A1c 6.9. -continue diet control Peripheral arterial disease-stable. -Continue anticoagulation Intermittent agitation- workup done to rule out infectious source causing change in mentation -Continue Seroquel 50 mg in the morning and 100 mg at night -Psychiatry reevaluated the patient on 02/17 Constipation, -Abdominal x-ray 02/16 indicates moderate amount of stool in the colon on the left side. -Milk of magnesia as needed. -MiraLAX, lactulose, Haydee-Colace daily, lactulose, MiraLAX -Dulcolax as needed Hypertension - 03/15Patient currently on lisinopril 2.5 mg by mouth daily, carvedilol 25 mg by mouth twice a day. Blood pressure uncontrolled with systolic blood pressure in the 150s. I will start the patient on amlodipine 10 mg by mouth daily. - 03/17 the pressure seems to be stable. Continue lisinopril, carvedilol and amlodipine. DVT prophylaxis - patient on Coumadin Problem Qualifiers (1) Cellulitis: (2) S/P BKA (below knee amputation) unilateral: Qualified Code: Z89.511 - S/P BKA (below knee amputation) unilateral, right (3) CVA (cerebral vascular accident): Qualified Code: I63.9 - Cerebrovascular accident (CVA), unspecified mechanism Mil Smith MD Mar 18, 2016 19:39
[2016-03-18 20:00] VITALS: BP 124/86; PULSE 73; RESP 18; TEMP 96.6; O2SAT 97
[2016-03-18] MEDS: ISOSORBIDE MONONITRATE 60 MG TAB PO SCH (21:35)
[2016-03-18] MEDS: QUEtiapine FUMARATE 100 MG TAB PO SCH (21:36)
[2016-03-19] MEDS: BACITRACIN TOP OINT 15 GM TUBE TOP SCH ×3 (06:20→21:54)
[2016-03-19 08:04] LABS: INTERNATIONAL NORMALIZED RATIO 1.8 RATIO; PROTHROMBIN TIME - PATIENT 20.9 SEC (9.8-11.6)
[2016-03-19 08:10] VITALS: BP 121/80; PULSE 73; RESP 14; TEMP 97.5; O2SAT 98
[2016-03-19] MEDS: BETAMETHASONE DIPROPIONATE 0.05% OINT 15 GM TUBE TOP SCH ×2 (09:00→21:00)
[2016-03-19] MEDS: LACTULOSE SYRUP 20 GM/30 ML CUP PO SCH (09:00)
[2016-03-19] MEDS: POLYETHYLENE GLYCOL 17 GM PKG PO SCH (09:20)
[2016-03-19] MEDS: ENALAPRIL MALEATE 2.5 MG TAB PO SCH (09:21)
[2016-03-19] MEDS: CIPROFLOXACIN 250 MG TAB PO SCH (09:22)
[2016-03-19] MEDS: DOCUSATE SODIUM 50 MG/SENNA 8.6 MG TAB PO SCH ×2 (09:22→21:48)
[2016-03-19] MEDS: ATORVASTATIN 40 MG TAB PO SCH (09:23)
[2016-03-19] MEDS: CARVEDILOL 12.5 MG TAB PO SCH ×2 (09:24→21:49)
[2016-03-19] MEDS: QUEtiapine FUMARATE 25 MG TAB PO SCH (09:25)
[2016-03-19] MEDS: FERROUS SULFATE 325 MG (65 MG ELEMENTAL IRON) TAB PO SCH (09:27)
[2016-03-19] MEDS: EUCERIN CREAM 120 GM JAR TOPICAL SCH ×2 (09:28→21:54)
--- NOTE | 2016-03-19 11:24 | HHI.PR ---
Subjective Remarks No major overnight events. Refused to take his warfarin. Denies any complaints Still requiring the mino bed denies cp/sob Objective Vitals Vital Signs Date Time Temp Pulse Resp B/P Pulse Ox O2 Delivery O2 Flow Rate FiO2 03/19/16 08:10 97.5 73 14 121/80 98 03/18/16 20:00 96.6 73 18 124/86 97 I/O 03/18/16 03/18/16 03/18/16 03/19/16 03/19/16 03/19/16 07:00 15:00 23:00 07:00 15:00 23:00 Intake Total 240 ml 240 ml Output Total 0 ml 100 ml Balance 240 ml 240 ml -100 ml Intake Oral 240 ml 240 ml Output Urine Total 0 ml 100 ml # Voids 1 # Bowel Movements 0 0 Imaging Last Impressions Head CT 02/26/16 0000 Signed Impressions: Service Date/Time: Friday, February 26, 2016 20:28 - CONCLUSION: No bleed or other acute intracranial abnormality demonstrated. Old ischemic changes. Camacho Lyon MD Abdomen X-Ray 02/17/16 0000 Signed Impressions: Service Date/Time: Wednesday, February 17, 2016 12:13 - CONCLUSION: Moderate amount stool in the colon especially on the left side. There are some minimally prominent segments of small bowel in the upper abdomen. Camacho Santana MD Chest X-Ray 11/06/15 0000 Signed Impressions: Service Date/Time: Friday, November 06, 2015 11:35 - CONCLUSION: Compensated cardiomegaly, history of bypass otherwise negative. Superior most sternal wire is fractured. Didier Clay MD FACR Liver Ultrasound 10/30/15 0000 Signed Impressions: Service Date/Time: Friday, October 30, 2015 17:29 - CONCLUSION: 1. Cholelithiasis with probable gallbladder sludge and mild gallbladder distention. 2. Splenomegaly. Sameer Alexandra MD Modified Barium Swallow 10/27/15 0000 Signed Impressions: Service Date/Time: Tuesday, October 27, 2015 00:00 - CONCLUSION: Negative for penetration or aspiration. Please see speech pathology report. Tai Cohen MD Brain MRI 10/22/15 0000 Signed Impressions: Service Date/Time: September 14:38 - CONCLUSION: 1. No significant interval change is identified. There is stable restricted diffusion in the left basal ganglia representing an area of recent ischemia. There are no findings to indicate hemorrhagic transformation. The previously documented signal change within the right cerebral peduncle has nearly normalized. 2. Stable chronic white matter changes. Camacho Culp MD Neck Magnetic Resonance Angiography 10/21/15 0000 Signed Impressions: Service Date/Time: Wednesday, October 21, 2015 12:52 - CONCLUSION: . 1. Unremarkable MRA of the carotid arteries bilaterally. 2. Nonspecific possible collateral vessels in the soft tissues posterior to the right vertebral artery. The right verbal artery appears to be patent. If clinically indicated, a CTA could be performed for further evaluation. Abiodun Hall MD Head Magnetic Resonance Angiography 10/21/15 0000 Signed Impressions: Service Date/Time: Wednesday, October 21, 2015 12:52 - CONCLUSION: Unremarkable MRA of the brain. Abiodun Hall MD Objective Remarks GENERAL: Well-developed, well-nourished, in no acute distress. NAD. Alert to person. HEENT: Head is normocephalic without any lesions or masses noted. Facial features are symmetric. Extraocular muscles are intact. Conjunctivae were clear. NECK: Supple without any masses. Trachea midline no deviation. No JVD, CARDIAC: Regular rhythm, regular rate. S1/S2 are heard. No murmurs gallops or rubs. LUNGS: Clear to auscultation bilaterally. No wheeze, rhonchi or rales. No use of accessory muscles on inspiration or expiration. ABDOMEN: Soft, nontender. Nondistended. Bowel sounds heard in all 4 quadrants. No organomegaly or masses. Negative rebound, negative guarding. EXTREMITIES: No edema, pulses are equal bilaterally. No cyanosis or clubbing. Right [id number] amputation. Left foot and Multi-Podus boot, NEUROLOGY: Mood and affect appear appropriate. Cranial nerves II through XII grossly intact. Moving all extremities, speech is clear Procedures None Medications and IVs Current Medications Medications (Trade) Dose Ordered Sig/Estuardo Route Start Time Stop Time Status Last Admin (Tylenol) 650 mg Q4H PRN PO 10/30/15 05:30 (Tums Chew) 1,000 mg TID PRN CHEW 10/30/15 05:30 (Haydee-Colace) 2 tab BID PO 11/03/15 09:00 03/19/16 09:22 (Lactulose Liq) 30 ml DAILY PO 11/04/15 09:00 03/16/16 09:28 (Diprosone 0.05% Ointment) 1 applic BID TOP 12/08/15 12:30 03/16/16 21:00 (Coreg) 25 mg BID PO 12/12/15 21:00 03/19/16 09:24 (Pill Splitter) 1 ea UNSCH PRN OTHER 12/15/15 09:15 03/17/16 10:25 (Zofran Odt) 4 mg Q4H PRN PO 12/30/15 11:00 (Imdur) 60 mg HS PO 01/11/16 21:00 03/18/16 21:35 (Vasotec) 2.5 mg DAILY PO 01/12/16 09:00 03/19/16 09:21 (Eucerin Cream) 1 applic Q12HR TOPICAL 01/13/16 21:00 03/19/16 09:28 (Miralax) 17 gm DAILY PO 01/30/16 13:30 03/19/16 09:20 (Baciguent Oint) 1 applic Q8HR TOP 02/02/16 11:00 03/19/16 12:45 (Lipitor) 80 mg DAILY PO 02/17/16 09:00 03/19/16 09:23 (Dulcolax Supp) 10 mg DAILY PRN AK 02/22/16 10:30 03/09/16 16:16 Enoxaparin Sodium 90 mg 90 mg Q24H SQ 03/03/16 12:00 03/19/16 12:45 (Custom Consult Pharmacy) 0 ml @ 0 mls/hr UNSCH OTHER 03/03/16 11:00 Ferrous Sulfate 325 mg 325 mg DAILY PO 03/06/16 09:00 03/19/16 09:27 (Coumadin Consult Pharmacy) 0 ml @ 0 mls/hr UNSCH OTHER 03/07/16 05:45 (SEROquel) 100 mg DAILY PO 03/14/16 09:00 03/19/16 09:25 (Cipro) 250 mg Q12HR PO 03/13/16 21:00 03/19/16 20:59 03/19/16 09:22 (Ativan) 1 mg Q8H PRN PO 03/13/16 17:45 03/15/16 10:07 (Haldol Inj) 2 mg Q8HR PRN IM 03/14/16 14:00 (SEROquel) 150 mg HS PO 03/14/16 21:00 03/18/16 21:36 (Norvasc) 10 mg DAILY PO 03/16/16 09:00 03/19/16 09:23 (Coumadin) 5 mg DAILY@16 PO 03/19/16 16:00 Urinary Catheter: No Vascular Central Line Catheter: No A/P Problem List: (1) Cellulitis ICD Code: L03.90 Status: Resolved (2) Ischemic cardiomyopathy ICD Code: I25.5 Status: Chronic (3) Diabetes mellitus type 2 in obese ICD Code: E11.9 Status: Chronic (4) S/P BKA (below knee amputation) unilateral ICD Code: Z89.519 Status: Chronic (5) Acute metabolic encephalopathy ICD Code: G93.41 Status: Resolved (6) Bacteremia ICD Code: R78.81 Status: Resolved (7) Chronic systolic (congestive) heart failure ICD Code: I50.22 Status: Chronic (8) Venous stasis ulcer of left lower extremity ICD Code: I83.029 Status: Chronic (9) CVA (cerebral vascular accident) ICD Code: I63.9 Status: Chronic (10) Seborrheic dermatitis ICD Code: L21.9 Status: Resolved (11) Anemia ICD Code: D64.9 Status: Chronic Assessment and Plan 60-year-old male with admitted 10/14 with acute cortical infarct. Patient remains with significant cognitive deficit. Urinary tract infection -Urine culture indicates Klebsiella pneumonia, Pseudomonas species -Patient started on Ciprofloxacin - continue for a total of 10 days. Bilateral cerebrovascular accident, with persistent cognitive defect -MRI showed acute cortical infarct of the right cerebral peduncle to the pelvis , left thalamus punctate area of infarct -Neurology last seen patient on 11/13/15, recommended long-term anticoagulation -Continue with Statin. -Continue Coumadin 5 mg daily and monitor INR/PT keep INR between 2 and 3, pharmacy consult for dosing. -Reconsulted PT/OT, patient will require intermittent therapy while he remains in the hospital so he does not decompensate -Out of bed with nursing only. Patient was counseled to not get out of bed on his own. Fall risk due to cognitive deficit -Psychiatry reconsulted for evaluation and appreciate recommendations on patient 's cognition, agitation -Increase Seroquel to 100 mg twice daily 03/15 continue on restraint with a [place] bed. 03/17 Patient's behavior seems to be improved. will DC mino bed and see how patient does. 03/18 patient not able to be calm without [place] bed. As per RN student requiring [place] bed Due to fall risk. INR 2.1. Patient is refusing warfarin, I discussed with the patient importance of him in compliant with taking warfarin, stated he was, take his warfarin. Continue to monitor PT/INR if it falls below 2 then he will need to be placed again on Lovenox. 03/19 INR 1.8 today. Patient refuses to take his Coumadin. I will resume Lovenox at therapeutic dose. Metabolic/infection encephalopathy, resolved -Patient mentation back to baseline -Etiology included a combination of dehydration, worsening renal failure, urinary tract infection -Laboratory studies indicated mild worsening renal function Ischemic Cardiomyopathy/chronic systolic CHF LVEF 35% on echo 03/2015. Denies shortness of breath. Compensated. -Continue Coreg, Imdur, enalapril. -Could consider AICD if patient is able to consent, however patient is currently unable to consent -Fluid and sodium restrictions, follow volume status. Chronic kidney disease stage 3/4. Back to baseline -Likely due to poor by mouth intake, encourage water intake -Avoid nephrotoxins. -Monitor BMP intermittently. 03/15 . Creatinine improving. Down to 1.50 today. Remove fluid restriction. left tibial surface- with superficial wound - improving -posterior aspect with erythema avoid pressure Bacitracin bid Medication noncompliance, intermittent Case discussed with psychiatry, case management We'll discuss with nursing staff, this has been a long-term issue and nursing staff has been able to put his medications in applesauce and orange juice, and the patient takes the medications when done that way. Patient did take all his medications yesterday. 03/15 Patient took all medications today. Anemia with iron deficiency, hemoglobin stable since admission Iron studies indicate iron 45, TIBC 232, ferritin 345 Patient started on ferrous sulfate 325 mg daily Continue monitor CBC intermittently Bacteremia with Staphylococcus hemolyticus, from wounds. Resolved -Follow blood cultures have been negative since 10/16/15 -Status post Keflex and Cipro management -Infectious disease managed patient Diabetic mellitus - Glucose was well controlled. All insulin discontinued. -accu-checks discontinued as patient's blood sugar well controlled and Hgb A1c 6.9. -continue diet control Peripheral arterial disease-stable. -Continue anticoagulation Intermittent agitation- workup done to rule out infectious source causing change in mentation -Continue Seroquel 50 mg in the morning and 100 mg at night -Psychiatry reevaluated the patient on 02/17 Constipation, -Abdominal x-ray 02/16 indicates moderate amount of stool in the colon on the left side. -Milk of magnesia as needed. -MiraLAX, lactulose, Haydee-Colace daily, lactulose, MiraLAX -Dulcolax as needed Hypertension - 03/15Patient currently on lisinopril 2.5 mg by mouth daily, carvedilol 25 mg by mouth twice a day. Blood pressure uncontrolled with systolic blood pressure in the 150s. I will start the patient on amlodipine 10 mg by mouth daily. - 03/17 the pressure seems to be stable. Continue lisinopril, carvedilol and amlodipine. DVT prophylaxis - patient on Coumadin Problem Qualifiers (1) Cellulitis: (2) S/P BKA (below knee amputation) unilateral: Qualified Code: Z89.511 - S/P BKA (below knee amputation) unilateral, right (3) CVA (cerebral vascular accident): Qualified Code: I63.9 - Cerebrovascular accident (CVA), unspecified mechanism Mil Smith MD Mar 19, 2016 11:24
[2016-03-19] MEDS: ENOXAPARIN SODIUM 100 MG/ML SYRINGE SQ SCH (12:45)
[2016-03-19] MEDS ORDERED: WARFARIN SOD 5 MG TAB PO SCH (16:00)
[2016-03-19] MEDS: QUEtiapine FUMARATE 100 MG TAB PO SCH (21:48)
[2016-03-19] MEDS: ISOSORBIDE MONONITRATE 60 MG TAB PO SCH (21:49)
[2016-03-19 22:04] VITALS: BP 143/79; PULSE 70; RESP 18; TEMP 97.9; O2SAT 97
[2016-03-20] MEDS: BACITRACIN TOP OINT 15 GM TUBE TOP SCH ×3 (05:33→22:00)
[2016-03-20 07:39] LABS: INTERNATIONAL NORMALIZED RATIO 1.6 RATIO; PROTHROMBIN TIME - PATIENT 18.4 SEC (9.8-11.6)
[2016-03-20 08:10] VITALS: BP 133/73; PULSE 77; RESP 16; TEMP 98; O2SAT 95
[2016-03-20] MEDS: BETAMETHASONE DIPROPIONATE 0.05% OINT 15 GM TUBE TOP SCH ×2 (09:00→21:00)
[2016-03-20] MEDS: LACTULOSE SYRUP 20 GM/30 ML CUP PO SCH (09:00)
[2016-03-20] MEDS: ENALAPRIL MALEATE 2.5 MG TAB PO SCH (09:09)
[2016-03-20] MEDS: FERROUS SULFATE 325 MG (65 MG ELEMENTAL IRON) TAB PO SCH (09:09)
[2016-03-20] MEDS: CARVEDILOL 12.5 MG TAB PO SCH ×2 (09:10→21:00)
[2016-03-20] MEDS: DOCUSATE SODIUM 50 MG/SENNA 8.6 MG TAB PO SCH ×2 (09:10→21:00)
[2016-03-20] MEDS: ATORVASTATIN 40 MG TAB PO SCH (09:11)
[2016-03-20] MEDS: QUEtiapine FUMARATE 25 MG TAB PO SCH (09:11)
[2016-03-20] MEDS: EUCERIN CREAM 120 GM JAR TOPICAL SCH ×2 (09:14→21:00)
[2016-03-20] MEDS: POLYETHYLENE GLYCOL 17 GM PKG PO SCH (09:15)
--- NOTE | 2016-03-20 11:43 | HHI.PR ---
Subjective Remarks no major overnight events patient denies cp/sob had episode of epistaxis yesterday - however this has resolved stable vital signs Objective Vitals Vital Signs Date Time Temp Pulse Resp B/P Pulse Ox O2 Delivery O2 Flow Rate FiO2 03/20/16 08:10 98.0 77 16 133/73 95 03/19/16 22:04 97.9 70 18 143/79 97 I/O 03/19/16 03/19/16 03/19/16 03/20/16 03/20/16 03/20/16 07:00 15:00 23:00 07:00 15:00 23:00 Output Total 100 ml 250 ml 700 ml Balance -100 ml -250 ml -700 ml Output Urine Total 100 ml 250 ml 700 ml # Voids 1 2 1 # Bowel Movements 0 1 Imaging Last Impressions Head CT 02/26/16 0000 Signed Impressions: Service Date/Time: Friday, February 26, 2016 20:28 - CONCLUSION: No bleed or other acute intracranial abnormality demonstrated. Old ischemic changes. Camacho Lyon MD Abdomen X-Ray 02/17/16 0000 Signed Impressions: Service Date/Time: Wednesday, February 17, 2016 12:13 - CONCLUSION: Moderate amount stool in the colon especially on the left side. There are some minimally prominent segments of small bowel in the upper abdomen. Camacho Santana MD Chest X-Ray 11/06/15 0000 Signed Impressions: Service Date/Time: Friday, November 06, 2015 11:35 - CONCLUSION: Compensated cardiomegaly, history of bypass otherwise negative. Superior most sternal wire is fractured. Didier Clay MD FACR Liver Ultrasound 10/30/15 0000 Signed Impressions: Service Date/Time: Friday, October 30, 2015 17:29 - CONCLUSION: 1. Cholelithiasis with probable gallbladder sludge and mild gallbladder distention. 2. Splenomegaly. Sameer Alexandra MD Modified Barium Swallow 10/27/15 0000 Signed Impressions: Service Date/Time: Tuesday, October 27, 2015 00:00 - CONCLUSION: Negative for penetration or aspiration. Please see speech pathology report. Tai Cohen MD Brain MRI 10/22/15 0000 Signed Impressions: Service Date/Time: September 14:38 - CONCLUSION: 1. No significant interval change is identified. There is stable restricted diffusion in the left basal ganglia representing an area of recent ischemia. There are no findings to indicate hemorrhagic transformation. The previously documented signal change within the right cerebral peduncle has nearly normalized. 2. Stable chronic white matter changes. Camacho Culp MD Neck Magnetic Resonance Angiography 10/21/15 0000 Signed Impressions: Service Date/Time: Wednesday, October 21, 2015 12:52 - CONCLUSION: . 1. Unremarkable MRA of the carotid arteries bilaterally. 2. Nonspecific possible collateral vessels in the soft tissues posterior to the right vertebral artery. The right verbal artery appears to be patent. If clinically indicated, a CTA could be performed for further evaluation. Abiodun Hall MD Head Magnetic Resonance Angiography 10/21/15 0000 Signed Impressions: Service Date/Time: Wednesday, October 21, 2015 12:52 - CONCLUSION: Unremarkable MRA of the brain. Abiodun Hall MD Objective Remarks GENERAL: Well-developed, well-nourished, in no acute distress. NAD. Alert to person. HEENT: Head is normocephalic without any lesions or masses noted. Facial features are symmetric. Extraocular muscles are intact. Conjunctivae were clear. NECK: Supple without any masses. Trachea midline no deviation. No JVD, CARDIAC: Regular rhythm, regular rate. S1/S2 are heard. No murmurs gallops or rubs. LUNGS: Clear to auscultation bilaterally. No wheeze, rhonchi or rales. No use of accessory muscles on inspiration or expiration. ABDOMEN: Soft, nontender. Nondistended. Bowel sounds heard in all 4 quadrants. No organomegaly or masses. Negative rebound, negative guarding. EXTREMITIES: No edema, pulses are equal bilaterally. No cyanosis or clubbing. Right [id number] amputation. Left foot and Multi-Podus boot, NEUROLOGY: Mood and affect appear appropriate. Cranial nerves II through XII grossly intact. Moving all extremities, speech is clear Procedures None Medications and IVs Current Medications Medications (Trade) Dose Ordered Sig/Estuardo Route Start Time Stop Time Status Last Admin (Tylenol) 650 mg Q4H PRN PO 10/30/15 05:30 (Tums Chew) 1,000 mg TID PRN CHEW 10/30/15 05:30 (Haydee-Colace) 2 tab BID PO 11/03/15 09:00 11/20/16 09:10 (Lactulose Liq) 30 ml DAILY PO 11/04/15 09:00 03/16/16 09:28 (Diprosone 0.05% Ointment) 1 applic BID TOP 12/08/15 12:30 03/16/16 21:00 (Coreg) 25 mg BID PO 12/12/15 21:00 03/20/16 09:10 (Pill Splitter) 1 ea UNSCH PRN OTHER 12/15/15 09:15 03/17/16 10:25 (Zofran Odt) 4 mg Q4H PRN PO 12/30/15 11:00 (Imdur) 60 mg HS PO 01/11/16 21:00 03/19/16 21:49 (Vasotec) 2.5 mg DAILY PO 01/12/16 09:00 03/20/16 09:09 (Eucerin Cream) 1 applic Q12HR TOPICAL 01/13/16 21:00 03/20/16 09:14 (Miralax) 17 gm DAILY PO 01/30/16 13:30 03/20/16 09:15 (Baciguent Oint) 1 applic Q8HR TOP 02/02/16 11:00 03/20/16 12:01 (Lipitor) 80 mg DAILY PO 02/17/16 09:00 03/20/16 09:11 (Dulcolax Supp) 10 mg DAILY PRN MO 02/22/16 10:30 03/09/16 16:16 Enoxaparin Sodium 90 mg 90 mg Q24H SQ 03/03/16 12:00 03/20/16 12:01 (Custom Consult Pharmacy) 0 ml @ 0 mls/hr UNSCH OTHER 03/03/16 11:00 Ferrous Sulfate 325 mg 325 mg DAILY PO 03/06/16 09:00 03/20/16 09:09 (Coumadin Consult Pharmacy) 0 ml @ 0 mls/hr UNSCH OTHER 03/07/16 05:45 (SEROquel) 100 mg DAILY PO 03/14/16 09:00 03/20/16 09:11 (Ativan) 1 mg Q8H PRN PO 03/13/16 17:45 03/15/16 10:07 (Haldol Inj) 2 mg Q8HR PRN IM 03/14/16 14:00 (SEROquel) 150 mg HS PO 03/14/16 21:00 03/19/16 21:48 (Norvasc) 10 mg DAILY PO 03/16/16 09:00 03/20/16 09:09 (Coumadin) 5 mg DAILY@16 PO 03/21/16 16:00 (Coumadin) 6 mg ONCE ONCE PO 03/20/16 16:00 03/20/16 16:01 Urinary Catheter: No Vascular Central Line Catheter: No A/P Problem List: (1) Cellulitis ICD Code: L03.90 Status: Resolved (2) Ischemic cardiomyopathy ICD Code: I25.5 Status: Chronic (3) Diabetes mellitus type 2 in obese ICD Code: E11.9 Status: Chronic (4) S/P BKA (below knee amputation) unilateral ICD Code: Z89.519 Status: Chronic (5) Acute metabolic encephalopathy ICD Code: G93.41 Status: Resolved (6) Bacteremia ICD Code: R78.81 Status: Resolved (7) Chronic systolic (congestive) heart failure ICD Code: I50.22 Status: Chronic (8) Venous stasis ulcer of left lower extremity ICD Code: I83.029 Status: Chronic (9) CVA (cerebral vascular accident) ICD Code: I63.9 Status: Chronic (10) Seborrheic dermatitis ICD Code: L21.9 Status: Resolved (11) Anemia ICD Code: D64.9 Status: Chronic Assessment and Plan 60-year-old male with admitted 10/14 with acute cortical infarct. Patient remains with significant cognitive deficit. Urinary tract infection -Urine culture indicates Klebsiella pneumonia, Pseudomonas species -Patient started on Ciprofloxacin - continue for a total of 10 days. Bilateral cerebrovascular accident, with persistent cognitive defect -MRI showed acute cortical infarct of the right cerebral peduncle to the pelvis , left thalamus punctate area of infarct -Neurology last seen patient on 11/13/15, recommended long-term anticoagulation -Continue with Statin. -Continue Coumadin 5 mg daily and monitor INR/PT keep INR between 2 and 3, pharmacy consult for dosing. -Reconsulted PT/OT, patient will require intermittent therapy while he remains in the hospital so he does not decompensate -Out of bed with nursing only. Patient was counseled to not get out of bed on his own. Fall risk due to cognitive deficit -Psychiatry reconsulted for evaluation and appreciate recommendations on patient 's cognition, agitation -Increase Seroquel to 100 mg twice daily 03/15 continue on restraint with a [place] bed. 03/17 Patient's behavior seems to be improved. will DC mino bed and see how patient does. 03/18 patient not able to be calm without [place] bed. As per RN student requiring [place] bed Due to fall risk. INR 2.1. Patient is refusing warfarin, I discussed with the patient importance of him in compliant with taking warfarin, stated he was, take his warfarin. Continue to monitor PT/INR if it falls below 2 then he will need to be placed again on Lovenox. 03/19 INR 1.8 today. Patient refuses to take his Coumadin. I will resume Lovenox at therapeutic dose. Metabolic/infection encephalopathy, resolved -Patient mentation back to baseline -Etiology included a combination of dehydration, worsening renal failure, urinary tract infection -Laboratory studies indicated mild worsening renal function Ischemic Cardiomyopathy/chronic systolic CHF LVEF 35% on echo 03/2015. Denies shortness of breath. Compensated. -Continue Coreg, Imdur, enalapril. -Could consider AICD if patient is able to consent, however patient is currently unable to consent -Fluid and sodium restrictions, follow volume status. Chronic kidney disease stage 3/4. Back to baseline -Likely due to poor by mouth intake, encourage water intake -Avoid nephrotoxins. -Monitor BMP intermittently. 03/15 . Creatinine improving. Down to 1.50 today. Remove fluid restriction. left tibial surface- with superficial wound - improving -posterior aspect with erythema avoid pressure Bacitracin bid Medication noncompliance, intermittent Case discussed with psychiatry, case management We'll discuss with nursing staff, this has been a long-term issue and nursing staff has been able to put his medications in applesauce and orange juice, and the patient takes the medications when done that way. Patient did take all his medications yesterday. 03/15 Patient took all medications today. Anemia with iron deficiency, hemoglobin stable since admission Iron studies indicate iron 45, TIBC 232, ferritin 345 Patient started on ferrous sulfate 325 mg daily Continue monitor CBC intermittently Bacteremia with Staphylococcus hemolyticus, from wounds. Resolved -Follow blood cultures have been negative since 10/16/15 -Status post Keflex and Cipro management -Infectious disease managed patient Diabetic mellitus - Glucose was well controlled. All insulin discontinued. -accu-checks discontinued as patient's blood sugar well controlled and Hgb A1c 6.9. -continue diet control Peripheral arterial disease-stable. -Continue anticoagulation Intermittent agitation- workup done to rule out infectious source causing change in mentation -Continue Seroquel 50 mg in the morning and 100 mg at night -Psychiatry reevaluated the patient on 02/17 Constipation, -Abdominal x-ray 02/16 indicates moderate amount of stool in the colon on the left side. -Milk of magnesia as needed. -MiraLAX, lactulose, Haydee-Colace daily, lactulose, MiraLAX -Dulcolax as needed Hypertension - 03/15Patient currently on lisinopril 2.5 mg by mouth daily, carvedilol 25 mg by mouth twice a day. Blood pressure uncontrolled with systolic blood pressure in the 150s. I will start the patient on amlodipine 10 mg by mouth daily. - 03/17 the pressure seems to be stable. Continue lisinopril, carvedilol and amlodipine. 03/20 Epistaxis - Check CBC to monitor hemoglobin. Likely due to nose picking. DVT prophylaxis - patient on Coumadin Problem Qualifiers (1) Cellulitis: (2) S/P BKA (below knee amputation) unilateral: Qualified Code: Z89.511 - S/P BKA (below knee amputation) unilateral, right (3) CVA (cerebral vascular accident): Qualified Code: I63.9 - Cerebrovascular accident (CVA), unspecified mechanism Mil Smith MD Mar 20, 2016 11:43
[2016-03-20] MEDS: ENOXAPARIN SODIUM 100 MG/ML SYRINGE SQ SCH (12:01)
[2016-03-20] MEDS ORDERED: WARFARIN SOD 6 MG TAB PO ONE (16:00)
[2016-03-20 20:00] VITALS: BP 149/76; PULSE 79; RESP 18; TEMP 98.2; O2SAT 99
[2016-03-20] MEDS: ISOSORBIDE MONONITRATE 60 MG TAB PO SCH (21:00)
[2016-03-20] MEDS: QUEtiapine FUMARATE 100 MG TAB PO SCH (21:00)
[2016-03-21] VITALS: BP 149/76; PULSE 79; RESP 18; TEMP 98.2; O2SAT 99
[2016-03-21] MEDS: BACITRACIN TOP OINT 15 GM TUBE TOP SCH ×3 (06:37→21:21)
[2016-03-21 08:31] LABS: HEMATOCRIT 30.5 % (39.0-51.0); MEAN CELL VOLUME 84.2 FL (80.0-100.0); MEAN CORPUSCULAR HEMOGLOBIN 27.6 PG (27.0-34.0); MEAN CORPUSCULAR HGB CONC 32.8 % (32.0-36.0); PLATELET COUNT 201 TH/MM3 (150-450); RED BLOOD COUNT 3.62 MIL/MM3 (4.50-5.90); RED CELL DISTRIBUTION WIDTH 13.9 % (11.6-17.2); REVIEW FLAG FINAL
[2016-03-21 08:38] LABS: POTASSIUM 4.1 MEQ/L (3.5-5.1)
[2016-03-21 08:41] LABS: BICARBONATE 25.3 MEQ/L (21.0-32.0); INTERNATIONAL NORMALIZED RATIO 1.7 RATIO; PROTHROMBIN TIME - PATIENT 19.2 SEC (9.8-11.6)
[2016-03-21] MEDS: ENALAPRIL MALEATE 2.5 MG TAB PO SCH ×2 (09:00→09:57)
[2016-03-21] MEDS: ATORVASTATIN 40 MG TAB PO SCH ×2 (09:00→09:57)
[2016-03-21] MEDS: QUEtiapine FUMARATE 25 MG TAB PO SCH ×2 (09:00→09:58)
[2016-03-21] MEDS: POLYETHYLENE GLYCOL 17 GM PKG PO SCH (09:00)
[2016-03-21] MEDS: BETAMETHASONE DIPROPIONATE 0.05% OINT 15 GM TUBE TOP SCH ×2 (09:00→21:00)
[2016-03-21] MEDS: FERROUS SULFATE 325 MG (65 MG ELEMENTAL IRON) TAB PO SCH ×2 (09:00→09:57)
[2016-03-21] MEDS: LACTULOSE SYRUP 20 GM/30 ML CUP PO SCH (09:00)
[2016-03-21] MEDS: DOCUSATE SODIUM 50 MG/SENNA 8.6 MG TAB PO SCH ×2 (09:00→21:20)
[2016-03-21] MEDS: EUCERIN CREAM 120 GM JAR TOPICAL SCH ×2 (09:00→21:21)
[2016-03-21] MEDS: CARVEDILOL 12.5 MG TAB PO SCH ×3 (09:00→21:20)
[2016-03-21 10:29] VITALS: BP 149/87; PULSE 85; RESP 20; TEMP 97.2; O2SAT 95
[2016-03-21] MEDS: ENOXAPARIN SODIUM 100 MG/ML SYRINGE SQ SCH (15:47)
[2016-03-21] MEDS ORDERED: WARFARIN SOD 5 MG TAB PO SCH (16:00)
--- NOTE | 2016-03-21 16:14 | HHI.PR ---
Subjective Remarks Follow-up for persistent cognitive deficit s/p CVA, hypertension. No acute complaints. Objective Vitals Vital Signs Date Time Temp Pulse Resp B/P Pulse Ox O2 Delivery O2 Flow Rate FiO2 03/21/16 10:29 97.2 85 20 149/87 95 03/21/16 00:00 98.2 79 18 149/76 99 03/20/16 20:00 98.2 79 18 149/76 99 I/O 03/20/16 03/20/16 03/20/16 03/21/16 03/21/16 03/21/16 06:59 14:59 22:59 06:59 14:59 22:59 Intake Total 600 ml Output Total 700 ml 350 ml Balance -700 ml -350 ml 600 ml Intake Oral 600 ml Output Urine Total 700 ml 350 ml # Voids 1 3 3 4 # Bowel Movements 0 1 Result Diagram: 03/21/16 0800 03/21/16 0800 Objective Remarks GENERAL: Well-nourished, well-developed male in no apparent distress in Dexter bed. SKIN: Warm and dry. CARDIOVASCULAR: Regular rate and rhythm. RESPIRATORY: Limited anterior exam. No accessory muscle use. Clear to auscultation. Breath sounds equal bilaterally. RR normal. GASTROINTESTINAL: Abdomen soft, non-tender, nondistended. MUSCULOSKELETAL: Right BKA stump. No lower extremity edema. NEUROLOGICAL: Awake and alert. PSYCHIATRIC: Calm mood. Appropriate. Procedures None Urinary Catheter: No Vascular Central Line Catheter: No A/P Problem List: (1) Cellulitis ICD Code: L03.90 Status: Resolved (2) Ischemic cardiomyopathy ICD Code: I25.5 Status: Chronic (3) Diabetes mellitus type 2 in obese ICD Code: E11.9 Status: Chronic (4) S/P BKA (below knee amputation) unilateral ICD Code: Z89.519 Status: Chronic (5) Acute metabolic encephalopathy ICD Code: G93.41 Status: Resolved (6) Bacteremia ICD Code: R78.81 Status: Resolved (7) Chronic systolic (congestive) heart failure ICD Code: I50.22 Status: Chronic (8) Venous stasis ulcer of left lower extremity ICD Code: I83.029 Status: Chronic (9) CVA (cerebral vascular accident) ICD Code: I63.9 Status: Chronic (10) Seborrheic dermatitis ICD Code: L21.9 Status: Resolved (11) Anemia ICD Code: D64.9 Status: Chronic (12) HTN (hypertension) ICD Code: I10 Status: Acute Assessment and Plan 60-year-old male with admitted 10/14 with acute cortical infarct. Patient remains with significant cognitive deficit. Bilateral cerebrovascular accident, with persistent cognitive defect -MRI showed acute cortical infarct of the right cerebral peduncle to the pelvis , left thalamus punctate area of infarct -Neurology last seen patient on 11/13/15, recommended long-term anticoagulation -Continue with Statin. -Discharged from PT and OT as he has reached maximum benefit here. -Out of bed with nursing only. Patient was counseled to not get out of bed on his own. Fall risk due to cognitive deficit -Patient was refusing warfarin doses and INR was subtherapeutic. Patient was switched to Lovenox with renal dosing 90 mg subcutaneous daily. Pharmacy consulted to monitor renal function. Warfarin was then restarted and patient has been more compliant. Still receiving Lovenox as INR today is 1.7. Check INR daily. Discontinue Lovenox when therapeutic. Ischemic Cardiomyopathy/chronic systolic CHF LVEF 35% on echo 03/2015. Denies shortness of breath. Compensated. -Continue medications as below. -Could consider AICD if patient is able to consent, however patient is currently unable to consent -Sodium restrictions, follow volume status. Hypertension: SBP was running in the 150's so Amlodipine 10 mg daily was initiated. BP this morning 149/87, but he has intermittent normal BP. - Continue Lisinopril 2.5 daily, carvedilol 25 bid, Imdur 60 daily, and amlodipine 10 mg daily. If continues to be elevated may need to add another medication. Have to be cautious with increasing Lisinopril due to Cr level. Chronic kidney disease stage 3/4. -Avoid nephrotoxins. -BMP 03/21 with acutely worse BUN 20 (03/12)-->34 today, but only mildly worse Cr 1.5-->1.6. -Encourage po hydration, being cautious of CHF. Medication noncompliance: Patient was refusing the majority of his medications, so psychiatry was consulted. -I spoke with Dr. Beard, psychiatrist who states the patient is unable to make his own medical decisions. Advises IM or IV medications if necessary. -Patient refused his Seroquel and Imdur last night. He refuses his scheduled laxatives. He has been compliant with his warfarin and Lovenox today. Anemia: Likely anemia of chronic disease due to CKD. Hemoglobin improved to 10. -Iron of 45, TIBC of 232, and % saturation of 19.4, with normal ferritin 345. -Discussed with attending who believes there may be an iron deficiency component as well. Continue Ferrous sulfate 325 mg by mouth daily. left tibial surface- with superficial wound - improving -posterior aspect with erythema avoid pressure Bacitracin bid Bacteremia with Staphylococcus hemolyticus, from wounds. Resolved -Follow blood cultures have been negative since 10/16/15 -Status post Keflex and Cipro management -Infectious disease managed patient Tinea cruris -S/p Nystatin powder Diabetic mellitus - Glucose was well controlled. All insulin discontinued. -Accu-checks discontinued as patient's blood sugar well controlled and Hgb A1c 6.9. -continue diet control Peripheral arterial disease-stable. -Continue anticoagulation Intermittent agitation: -Psychiatry reevaluated the patient on 02/17 and increased Seroquel to 50 mg in the morning and 100 mg qhs. -Per RN, patient was trying to get up OOB by himself multiple times which I have witnessed. Dexter vest ordered-->Dexter bed. -Ativan and Haldol prn Constipation: Had 1 BM over the past 24 hours. -Abdominal x-ray 02/16 with moderate amount of stool in the colon on the left side; minimally prominent segments of small bowel in the upper abdomen -Patient refused scheduled MiraLAX, Haydee-Colace, and Lactulose today. Encourage use. -Continue Dulcolax suppository as needed. DVT prophylaxis -patient on Lovenox Discharge Planning Have to have accepting SNF in order to get Medicaid, and must have someone to sign him in. Case management following. PT at rehab recommended. OT recommends 3-1 bedside commode, shower bench, and long-term care facility with restorative services. Problem Qualifiers (1) Cellulitis: (2) S/P BKA (below knee amputation) unilateral: Qualified Code: Z89.511 - S/P BKA (below knee amputation) unilateral, right (3) CVA (cerebral vascular accident): Qualified Code: I63.9 - Cerebrovascular accident (CVA), unspecified mechanism Jennifer Mae Mar 21, 2016 16:14 Jennifer Mae Mar 21, 2016 16:14
[2016-03-21 20:00] VITALS: BP 145/82; PULSE 80; RESP 18; TEMP 97.1; O2SAT 96
[2016-03-21] MEDS: QUEtiapine FUMARATE 100 MG TAB PO SCH (21:20)
[2016-03-21] MEDS: ISOSORBIDE MONONITRATE 60 MG TAB PO SCH (21:20)
[2016-03-22] MEDS: BACITRACIN TOP OINT 15 GM TUBE TOP SCH (06:00)
[2016-03-22] MEDS: ENALAPRIL MALEATE 2.5 MG TAB PO SCH (09:00)
[2016-03-22] MEDS: BETAMETHASONE DIPROPIONATE 0.05% OINT 15 GM TUBE TOP SCH (09:00)
[2016-03-22] MEDS: CARVEDILOL 12.5 MG TAB PO SCH ×2 (09:00→20:54)
--- NOTE | 2016-03-22 10:16 | HHI.PR ---
Subjective Remarks Patient seen and examined today. Patient denies any new complaints. Patient still requiring [place] bed Objective Vitals Vital Signs Date Time Temp Pulse Resp B/P Pulse Ox O2 Delivery O2 Flow Rate FiO2 03/21/16 20:00 97.1 80 18 145/82 96 03/21/16 10:29 97.2 85 20 149/87 95 I/O 03/21/16 03/21/16 03/21/16 03/22/16 03/22/16 03/22/16 06:59 14:59 22:59 06:59 14:59 22:59 Intake Total 600 ml Balance 600 ml Intake Oral 600 ml # Voids 3 4 # Bowel Movements 0 1 Result Diagram: 03/21/16 0800 03/21/16 0800 Objective Remarks GENERAL: Well-developed, well-nourished, in no acute distress. Alert and orientated to person HEENT: Head is normocephalic without any lesions or masses noted. Facial features are symmetric. Extraocular muscles are intact. Conjunctivae were clear. NECK: Supple without any masses. Trachea midline no deviation. No JVD, CARDIAC: Regular rhythm, regular rate. S1/S2 are heard. No murmurs gallops or rubs. LUNGS: Clear to auscultation bilaterally. No wheeze, rhonchi or rales. No use of accessory muscles on inspiration or expiration. ABDOMEN: Soft, nontender. Nondistended. Bowel sounds heard in all 4 quadrants. No organomegaly or masses. Negative rebound, negative guarding. EXTREMITIES: No edema, pulses are equal bilaterally. No cyanosis or clubbing. Right [id number] amputation. Left foot and Multi-Podus boot, NEUROLOGY: Mood and affect appear appropriate. Cranial nerves II through XII grossly intact. Moving all extremities, speech is clear Procedures None Urinary Catheter: No Vascular Central Line Catheter: No A/P Assessment and Plan 60-year-old male with admitted 10/14 with acute cortical infarct. Patient remains with significant cognitive deficit. Bilateral cerebrovascular accident, with persistent cognitive defect -MRI showed acute cortical infarct of the right cerebral peduncle to the pelvis , left thalamus punctate area of infarct -Neurology last seen patient on 11/13/15, recommended long-term anticoagulation -Continue with Statin. -Continue Coumadin 5 mg daily and monitor INR/PT keep INR between 2 and 3, pharmacy consult for dosing. INR 1.7, patient started on Lovenox by pharmacy -Reconsulted PT/OT, patient will require intermittent therapy while he remains in the hospital so he does not decompensate -Out of bed with nursing only. Patient was counseled to not get out of bed on his own. Fall risk due to cognitive deficit -[place] been ordered -Psychiatry reconsulted for evaluation and appreciate recommendations on patient 's cognition, agitation -Increase Seroquel to 100 mg twice daily Hypertension: Systolic blood pressure 121-149 Amlodipine 10 mg daily Lisinopril 2.5 daily, increase to 5 mg daily carvedilol 25 bid, Imdur 60 daily Metabolic/infection encephalopathy, resolved -Patient mentation back to baseline -Etiology included a combination of dehydration, worsening renal failure, urinary tract infection -Laboratory studies indicated mild worsening renal function -Continue IV fluids Urinary tract infection, resolved -Urine culture indicates Klebsiella pneumonia, Pseudomonas species -Complete Rocephin, Cipro Ischemic Cardiomyopathy/chronic systolic CHF LVEF 35% on echo 03/2015. Denies shortness of breath. Compensated. -Continue Coreg, Imdur, enalapril. -Could consider AICD if patient is able to consent, however patient is currently unable to consent -Fluid and sodium restrictions, follow volume status. Chronic kidney disease stage 3/4. Back to baseline -Likely due to poor by mouth intake, encourage water intake -Avoid nephrotoxins. -Monitor BMP intermittently left tibial surface- with superficial wound - improving -posterior aspect with erythema avoid pressure Bacitracin bid Medication noncompliance, intermittent Case discussed with psychiatry, case management We'll discuss with nursing staff, this has been a long-term issue and nursing staff has been able to put his medications in applesauce and orange juice, and the patient takes the medications when done that way. Patient did take all his medications yesterday. Anemia with iron deficiency, hemoglobin stable since admission Iron studies indicate iron 45, TIBC 232, ferritin 345 Patient started on ferrous sulfate 325 mg daily Continue monitor CBC intermittently Bacteremia with Staphylococcus hemolyticus, from wounds. Resolved -Follow blood cultures have been negative since 10/16/15 -Status post Keflex and Cipro management -Infectious disease managed patient Diabetic mellitus - Glucose was well controlled. All insulin discontinued. -accu-checks discontinued as patient's blood sugar well controlled and Hgb A1c 6.9. -continue diet control Peripheral arterial disease-stable. -Continue anticoagulation Intermittent agitation- workup done to rule out infectious source causing change in mentation -Continue Seroquel 100 mg in the morning and 150 mg at night -Psychiatry reevaluated the patient on 02/17 -Workup negative thus far except for leukocytes in the urine, however has increased epithelial cells indicating contamination. Await culture report before starting antibiotics Constipation, -Abdominal x-ray 02/16 indicates moderate amount of stool in the colon on the left side. -Milk of magnesia as needed. -MiraLAX, lactulose, Haydee-Colace daily, lactulose, MiraLAX -Dulcolax as needed DVT prophylaxis - patient on Coumadin Discharge Planning Case management arranging discharge planning to [facility] facility once a finding facility that'll accept the patient/insurance. Has accepting SNF in order to get Medicaid, and must have someone to sign him in. Case management following. 03/10/16 PATIENT REMAINS HOSPITALIZED DUE TO INABILITY TO PLACE PATIENT. EVEN THOUGH HE HAS [facility] INSURANCE, HE HAS NO SNF BENEFITS. PATIENT WOULD HAVE TO BE APPROVED FOR [facility] MEDICAID PENDING TO ENTER A FACILITY. [facility] HAS HAD AN ACUTE CORTICAL INFARCT AND HAS SIGNIFICANT COGNITIVE DEFICITS. EVELIA BEAUCHAMP LPN, CM IS WORKING ON SKILLED FACILITY PLACEMENT FOR PATIENT. AT THIS POINT PATIENT DOES NOT HAVE A RESPONSIBLE DEMOCRAT TO SIGN HIM INTO A FACILITY. Truman Fulton Mar 22, 2016 10:16 Pastor Lu MD Mar 22, 2016 17:17
[2016-03-22] MEDS: QUEtiapine FUMARATE 25 MG TAB PO SCH (11:43)
[2016-03-22] MEDS: ATORVASTATIN 40 MG TAB PO SCH (11:43)
[2016-03-22] MEDS: DOCUSATE SODIUM 50 MG/SENNA 8.6 MG TAB PO SCH ×2 (11:43→20:54)
[2016-03-22] MEDS: FERROUS SULFATE 325 MG (65 MG ELEMENTAL IRON) TAB PO SCH (11:43)
[2016-03-22] MEDS: LACTULOSE SYRUP 20 GM/30 ML CUP PO SCH (11:43)
[2016-03-22] MEDS: EUCERIN CREAM 120 GM JAR TOPICAL SCH ×2 (11:44→21:00)
[2016-03-22] MEDS: POLYETHYLENE GLYCOL 17 GM PKG PO SCH (11:44)
[2016-03-22] MEDS: ENOXAPARIN SODIUM 100 MG/ML SYRINGE SQ SCH (11:48)
[2016-03-22 13:51] VITALS: BP 99/56; PULSE 67; RESP 15; TEMP 96.7; O2SAT 94
[2016-03-22] MEDS ORDERED: WARFARIN SOD 7.5 MG TAB PO SCH (16:00)
[2016-03-22 20:00] VITALS: BP 149/90; PULSE 91; RESP 20; TEMP 98.1; O2SAT 97
[2016-03-22] MEDS: QUEtiapine FUMARATE 100 MG TAB PO SCH (20:53)
[2016-03-22] MEDS: ISOSORBIDE MONONITRATE 60 MG TAB PO SCH (20:54)
[2016-03-23 08:07] LABS: PROTHROMBIN TIME - PATIENT 22.5 SEC (9.8-11.6)
[2016-03-23 08:20] VITALS: BP 138/80; PULSE 78; RESP 18; TEMP 98.1; O2SAT 95
--- NOTE | 2016-03-23 08:24 | HHI.PR ---
Subjective Remarks Patient seen and examined today. Patient denies any new complaints. No change in clinical status. Objective Vitals Vital Signs Date Time Temp Pulse Resp B/P Pulse Ox O2 Delivery O2 Flow Rate FiO2 03/22/16 20:00 98.1 91 20 149/90 97 03/22/16 13:51 96.7 67 15 99/56 94 I/O 03/22/16 03/22/16 03/22/16 03/23/16 03/23/16 03/23/16 07:00 15:00 23:00 07:00 15:00 23:00 Intake Total 400 ml 240 ml 240 ml Output Total 250 ml Balance 150 ml 240 ml 240 ml Intake Oral 400 ml 240 ml 240 ml Output Urine Total 250 ml # Voids 1 2 # Bowel Movements 0 0 Result Diagram: 03/21/16 0800 03/21/16 0800 Objective Remarks GENERAL: Well-developed, well-nourished, in no acute distress. Alert and orientated to person HEENT: Head is normocephalic without any lesions or masses noted. Facial features are symmetric. Extraocular muscles are intact. Conjunctivae were clear. NECK: Supple without any masses. Trachea midline no deviation. No JVD, CARDIAC: Regular rhythm, regular rate. S1/S2 are heard. No murmurs gallops or rubs. LUNGS: Clear to auscultation bilaterally. No wheeze, rhonchi or rales. No use of accessory muscles on inspiration or expiration. ABDOMEN: Soft, nontender. Nondistended. Bowel sounds heard in all 4 quadrants. No organomegaly or masses. Negative rebound, negative guarding. EXTREMITIES: No edema, pulses are equal bilaterally. No cyanosis or clubbing. Right hwehv-srt-jegk amputation. Left foot and Multi-Podus boot, NEUROLOGY: Mood and affect appear appropriate. Cranial nerves II through XII grossly intact. Moving all extremities, speech is clear Procedures None Urinary Catheter: No Vascular Central Line Catheter: No A/P Assessment and Plan 60-year-old male with admitted 10/14 with acute cortical infarct. Patient remains with significant cognitive deficit. Bilateral cerebrovascular accident, with persistent cognitive defect -MRI showed acute cortical infarct of the right cerebral peduncle to the pelvis , left thalamus punctate area of infarct -Neurology last seen patient on 11/13/15, recommended long-term anticoagulation -Continue with Statin. -Continue Coumadin 5 mg daily and monitor INR/PT keep INR between 2 and 3, pharmacy consult for dosing. INR 1.7, patient started on Lovenox by pharmacy -Reconsulted PT/OT, patient will require intermittent therapy while he remains in the hospital so he does not decompensate -Out of bed with nursing only. Patient was counseled to not get out of bed on his own. Fall risk due to cognitive deficit -[place] been ordered -Psychiatry reconsulted for evaluation and appreciate recommendations on patient 's cognition, agitation -Seroquel 100 mg daily and 150 mg at bedtime Hypertension: Systolic blood pressure 63842 Amlodipine 10 mg daily Lisinopril 5 mg daily carvedilol 25 bid, Imdur 60 daily Metabolic/infection encephalopathy, resolved -Patient mentation back to baseline -Etiology included a combination of dehydration, worsening renal failure, urinary tract infection -Laboratory studies indicated mild worsening renal function -Continue IV fluids Urinary tract infection, resolved -Urine culture indicates Klebsiella pneumonia, Pseudomonas species -Complete Rocephin, Cipro Ischemic Cardiomyopathy/chronic systolic CHF LVEF 35% on echo 03/2015. Denies shortness of breath. Compensated. -Continue Coreg, Imdur, enalapril. -Could consider AICD if patient is able to consent, however patient is currently unable to consent -Fluid and sodium restrictions, follow volume status. Chronic kidney disease stage 3/4. Back to baseline -Likely due to poor by mouth intake, encourage water intake -Avoid nephrotoxins. -Monitor BMP intermittently left tibial surface- with superficial wound - improving -posterior aspect with erythema avoid pressure Bacitracin bid Medication noncompliance, intermittent Case discussed with psychiatry, case management We'll discuss with nursing staff, this has been a long-term issue and nursing staff has been able to put his medications in applesauce and orange juice, and the patient takes the medications when done that way. Patient did take all his medications yesterday. Anemia with iron deficiency, hemoglobin stable since admission Iron studies indicate iron 45, TIBC 232, ferritin 345 Patient started on ferrous sulfate 325 mg daily Continue monitor CBC intermittently Bacteremia with Staphylococcus hemolyticus, from wounds. Resolved -Follow blood cultures have been negative since 10/16/15 -Status post Keflex and Cipro management -Infectious disease managed patient Diabetic mellitus - Glucose was well controlled. All insulin discontinued. -accu-checks discontinued as patient's blood sugar well controlled and Hgb A1c 6.9. -continue diet control Peripheral arterial disease-stable. -Continue anticoagulation Intermittent agitation- workup done to rule out infectious source causing change in mentation -Continue Seroquel 100 mg in the morning and 150 mg at night -Psychiatry reevaluated the patient on 02/17 Constipation, -Abdominal x-ray 02/16 indicates moderate amount of stool in the colon on the left side. -Milk of magnesia as needed. -MiraLAX, lactulose, Haydee-Colace daily, lactulose, MiraLAX -Dulcolax as needed DVT prophylaxis - patient on Coumadin Discharge Planning Patient is medically stable and has been cleared for discharge from medical perspective. Case management [facility] once a finding facility that'll accept the patient/insurance. Has accepting SNF in order to get Medicaid, and must have someone to sign him in. Case management following. 03/23/16 0649 FOLLOWING TO FIND PLACEMENT FOR COLLECTIONS OFFICER. SISTER WILLING TO ASSIST PATIENT NEEDS TO BE CLEARED TO D/C. AND NEED ACCEPTING SNF. EVELIA BEAUCHAMP LPN/Truman Gaytan Mar 23, 2016 08:24
[2016-03-23] MEDS: QUEtiapine FUMARATE 25 MG TAB PO SCH (09:00)
[2016-03-23] MEDS: EUCERIN CREAM 120 GM JAR TOPICAL SCH ×2 (09:00→20:25)
[2016-03-23] MEDS: LACTULOSE SYRUP 20 GM/30 ML CUP PO SCH (10:00)
[2016-03-23] MEDS: ENALAPRIL MALEATE 5 MG TAB PO SCH (10:00)
[2016-03-23] MEDS: ATORVASTATIN 40 MG TAB PO SCH (10:01)
[2016-03-23] MEDS: CARVEDILOL 12.5 MG TAB PO SCH ×2 (10:01→20:23)
[2016-03-23] MEDS: FERROUS SULFATE 325 MG (65 MG ELEMENTAL IRON) TAB PO SCH (10:01)
[2016-03-23] MEDS: DOCUSATE SODIUM 50 MG/SENNA 8.6 MG TAB PO SCH ×2 (10:01→20:22)
[2016-03-23] MEDS: POLYETHYLENE GLYCOL 17 GM PKG PO SCH (10:02)
[2016-03-23] MEDS: ENOXAPARIN SODIUM 100 MG/ML SYRINGE SQ SCH (12:27)
[2016-03-23] MEDS ORDERED: WARFARIN SOD 6 MG TAB PO SCH (16:00)
[2016-03-23 20:00] VITALS: BP 137/80; PULSE 87; RESP 19; TEMP 97.4; O2SAT 97
[2016-03-23] MEDS: QUEtiapine FUMARATE 100 MG TAB PO SCH (20:23)
[2016-03-23] MEDS: ISOSORBIDE MONONITRATE 60 MG TAB PO SCH (20:24)
[2016-03-24 07:50] LABS: INTERNATIONAL NORMALIZED RATIO 2.2 RATIO; PROTHROMBIN TIME - PATIENT 24.9 SEC (9.8-11.6)
[2016-03-24 08:28] VITALS: BP 122/77; PULSE 77; RESP 14; TEMP 99.1; O2SAT 98
[2016-03-24] MEDS: FERROUS SULFATE 325 MG (65 MG ELEMENTAL IRON) TAB PO SCH (08:28)
[2016-03-24] MEDS: CARVEDILOL 12.5 MG TAB PO SCH ×2 (08:28→21:35)
[2016-03-24] MEDS: DOCUSATE SODIUM 50 MG/SENNA 8.6 MG TAB PO SCH ×2 (08:29→21:35)
[2016-03-24] MEDS: LACTULOSE SYRUP 20 GM/30 ML CUP PO SCH (08:29)
[2016-03-24] MEDS: ENALAPRIL MALEATE 5 MG TAB PO SCH (08:29)
[2016-03-24] MEDS: ATORVASTATIN 40 MG TAB PO SCH (08:29)
[2016-03-24] MEDS: POLYETHYLENE GLYCOL 17 GM PKG PO SCH (08:36)
[2016-03-24] MEDS: EUCERIN CREAM 120 GM JAR TOPICAL SCH ×2 (08:36→21:35)
--- NOTE | 2016-03-24 08:40 | HHI.PR ---
Subjective Remarks Patient seen and examined today. Patient denies any new complaints. No change in clinical status. Awaiting case hardener discharge planning Objective Vitals Vital Signs Date Time Temp Pulse Resp B/P Pulse Ox O2 Delivery O2 Flow Rate FiO2 03/24/16 08:28 99.1 77 14 122/77 98 03/23/16 20:00 97.4 87 19 137/80 97 I/O 03/23/16 03/23/16 03/23/16 03/24/16 03/24/16 03/24/16 07:00 15:00 23:00 07:00 15:00 23:00 Intake Total 240 ml 1020 ml 240 ml Output Total 300 ml Balance 240 ml 720 ml 240 ml Intake Oral 240 ml 1020 ml 240 ml Output Urine Total 300 ml # Voids 2 2 # Bowel Movements 1 0 Result Diagram: 03/21/16 0800 03/21/16 0800 Objective Remarks GENERAL: Well-developed, well-nourished, in no acute distress. Alert and orientated to person HEENT: Head is normocephalic without any lesions or masses noted. Facial features are symmetric. Extraocular muscles are intact. Conjunctivae were clear. NECK: Supple without any masses. Trachea midline no deviation. No JVD, CARDIAC: Regular rhythm, regular rate. S1/S2 are heard. No murmurs gallops or rubs. LUNGS: Clear to auscultation bilaterally. No wheeze, rhonchi or rales. No use of accessory muscles on inspiration or expiration. ABDOMEN: Soft, nontender. Nondistended. Bowel sounds heard in all 4 quadrants. No organomegaly or masses. Negative rebound, negative guarding. EXTREMITIES: No edema, pulses are equal bilaterally. No cyanosis or clubbing. Right oicjf-wjy-rwqw amputation. Left foot and Multi-Podus boot, NEUROLOGY: Mood and affect appear appropriate. Cranial nerves II through XII grossly intact. Moving all extremities, speech is clear Procedures None Urinary Catheter: No Vascular Central Line Catheter: No A/P Assessment and Plan 60-year-old male with admitted 10/14 with acute cortical infarct. Patient remains with significant cognitive deficit. Bilateral cerebrovascular accident, with persistent cognitive defect -MRI showed acute cortical infarct of the right cerebral peduncle to the pelvis , left thalamus punctate area of infarct -Neurology last seen patient on 11/13/15, recommended long-term anticoagulation -Continue with Statin. -Continue Coumadin 5 mg daily and monitor INR/PT keep INR between 2 and 3, pharmacy consult for dosing. INR 2.2, patient started on Lovenox by pharmacy -Reconsulted PT/OT, patient will require intermittent therapy while he remains in the hospital so he does not decompensate -Out of bed with nursing only. Patient was counseled to not get out of bed on his own. Fall risk due to cognitive deficit -[place] bed -Psychiatry reconsulted for evaluation and appreciate recommendations on patient 's cognition, agitation -Seroquel 100 mg daily and 150 mg at bedtime Hypertension: Systolic blood pressure 122-138 Amlodipine 10 mg daily Lisinopril 5 mg daily carvedilol 25 bid, Imdur 60 daily Metabolic/infection encephalopathy, resolved -Patient mentation back to baseline -Etiology included a combination of dehydration, worsening renal failure, urinary tract infection Urinary tract infection, resolved -Urine culture indicates Klebsiella pneumonia, Pseudomonas species -Complete Rocephin, Cipro Ischemic Cardiomyopathy/chronic systolic CHF LVEF 35% on echo 03/2015. Denies shortness of breath. Compensated. -Continue Coreg, Imdur, enalapril. -Could consider AICD if patient is able to consent, however patient is currently unable to consent -Fluid and sodium restrictions, follow volume status. Chronic kidney disease stage 3/4. Back to baseline -Avoid nephrotoxins. -Monitor BMP intermittently left tibial surface- with superficial wound -resolved Medication noncompliance, intermittent Case discussed with psychiatry, case management Discussed with nursing staff, this has been a long-term issue and nursing staff has been able to put his medications in applesauce and orange juice, and the patient takes the medications when done that way. Anemia with iron deficiency, hemoglobin stable since admission Iron studies indicate iron 45, TIBC 232, ferritin 345 Continue ferrous sulfate 325 mg daily Continue monitor CBC intermittently Bacteremia with Staphylococcus hemolyticus, from wounds. Resolved -Follow blood cultures have been negative since 10/16/15 -Status post Keflex and Cipro management -Infectious disease managed patient Diabetic mellitus - Glucose was well controlled. All insulin discontinued. -accu-checks discontinued as patient's blood sugar well controlled and Hgb A1c 6.9. -continue diet control Peripheral arterial disease-stable. -Continue anticoagulation Intermittent agitation- workup done to rule out infectious source causing change in mentation -Continue Seroquel 100 mg in the morning and 150 mg at night -Psychiatry reevaluated the patient on 02/17 Constipation, patient having bowel movement every other day -Abdominal x-ray 02/16 indicates moderate amount of stool in the colon on the left side. -Milk of magnesia as needed. -MiraLAX, lactulose, Haydee-Colace daily, lactulose, MiraLAX -Dulcolax as needed DVT prophylaxis - patient on Coumadin Discharge Planning Patient is medically stable and has been cleared for discharge from medical perspective. Case management arranging discharge planning to [facility] facility once a finding facility that'll accept the patient/insurance. Has accepting SNF in order to get Medicaid, and must have someone to sign him in. Case management following. 03/23/16 0649 FOLLOWING TO FIND PLACEMENT FOR RETIREMENT. SISTER WILLING TO ASSIST PATIENT NEEDS TO BE CLEARED TO D/C. AND NEED ACCEPTING SNF. EVELIA BEAUCHAMP LPN/Truman Gaytan Mar 24, 2016 08:40
[2016-03-24] MEDS: QUEtiapine FUMARATE 100 MG TAB PO SCH ×2 (09:30→21:34)
[2016-03-24] MEDS ORDERED: WARFARIN SOD 5 MG TAB PO SCH (16:00)
[2016-03-24 20:00] VITALS: BP 144/86; PULSE 80; RESP 20; TEMP 96.6; O2SAT 96
[2016-03-24] MEDS: ISOSORBIDE MONONITRATE 60 MG TAB PO SCH (21:34)
[2016-03-25 07:29] LABS: PROTHROMBIN TIME - PATIENT 22.8 SEC (9.8-11.6)
[2016-03-25 08:00] VITALS: BP 138/80; PULSE 82; RESP 18; TEMP 97.8; O2SAT 97
[2016-03-25] MEDS: CARVEDILOL 12.5 MG TAB PO SCH ×2 (09:00→21:12)
[2016-03-25] MEDS: EUCERIN CREAM 120 GM JAR TOPICAL SCH ×2 (09:00→21:15)
[2016-03-25] MEDS: POLYETHYLENE GLYCOL 17 GM PKG PO SCH (10:11)
[2016-03-25] MEDS: LACTULOSE SYRUP 20 GM/30 ML CUP PO SCH (10:12)
[2016-03-25] MEDS: QUEtiapine FUMARATE 100 MG TAB PO SCH ×2 (10:12→21:09)
[2016-03-25] MEDS: ENALAPRIL MALEATE 5 MG TAB PO SCH (10:12)
[2016-03-25] MEDS: DOCUSATE SODIUM 50 MG/SENNA 8.6 MG TAB PO SCH ×2 (10:12→21:13)
[2016-03-25] MEDS: ATORVASTATIN 40 MG TAB PO SCH (10:12)
[2016-03-25] MEDS: FERROUS SULFATE 325 MG (65 MG ELEMENTAL IRON) TAB PO SCH (10:13)
--- NOTE | 2016-03-25 11:26 | HHI.PR ---
Subjective Remarks Patient seen and examined today. Patient denies any new complaints. No change in clinical status. Awaiting case management for discharge planning Objective Vitals Vital Signs Date Time Temp Pulse Resp B/P Pulse Ox O2 Delivery O2 Flow Rate FiO2 03/25/16 08:00 97.8 82 18 138/80 97 03/24/16 20:00 96.6 80 20 144/86 96 I/O 03/24/16 03/24/16 03/24/16 03/25/16 03/25/16 03/25/16 06:59 14:59 22:59 06:59 14:59 22:59 Intake Total 240 ml 800 ml Balance 240 ml 800 ml Intake Oral 240 ml 800 ml # Voids 2 4 2 # Bowel Movements 0 0 Result Diagram: 03/21/16 0800 03/21/16 0800 Objective Remarks GENERAL: Well-developed, well-nourished, in no acute distress. Alert and orientated to person HEENT: Head is normocephalic without any lesions or masses noted. Facial features are symmetric. Extraocular muscles are intact. Conjunctivae were clear. NECK: Supple without any masses. Trachea midline no deviation. No JVD, CARDIAC: Regular rhythm, regular rate. S1/S2 are heard. No murmurs gallops or rubs. LUNGS: Clear to auscultation bilaterally. No wheeze, rhonchi or rales. No use of accessory muscles on inspiration or expiration. ABDOMEN: Soft, nontender. Nondistended. Bowel sounds heard in all 4 quadrants. No organomegaly or masses. Negative rebound, negative guarding. EXTREMITIES: No edema, pulses are equal bilaterally. No cyanosis or clubbing. Right qmqqf-biy-rmsi amputation. Left foot and Multi-Podus boot, NEUROLOGY: Mood and affect appear appropriate. Cranial nerves II through XII grossly intact. Moving all extremities, speech is clear Procedures None Urinary Catheter: No Vascular Central Line Catheter: No A/P Assessment and Plan 60-year-old male with admitted 10/14 with acute cortical infarct. Patient remains with significant cognitive deficit. Bilateral cerebrovascular accident, with persistent cognitive defect -MRI showed acute cortical infarct of the right cerebral peduncle to the pelvis , left thalamus punctate area of infarct -Neurology last seen patient on 11/13/15, recommended long-term anticoagulation -Continue with Statin. -Continue Coumadin 5 mg daily and monitor INR/PT keep INR between 2 and 3, pharmacy consult for dosing. INR 2.0, -Reconsulted PT/OT, patient will require intermittent therapy while he remains in the hospital so he does not decompensate -Out of bed with nursing only. Patient was counseled to not get out of bed on his own. Fall risk due to cognitive deficit -[place] bed, vest restraints while in chair -Psychiatry reconsulted for evaluation and appreciate recommendations on patient 's cognition, agitation -Seroquel 100 mg daily and 150 mg at bedtime Hypertension: Systolic blood pressure 122-144 Amlodipine 10 mg daily Lisinopril 5 mg daily carvedilol 25 bid, Imdur 60 daily Metabolic/infection encephalopathy, resolved -Patient mentation back to baseline -Etiology included a combination of dehydration, worsening renal failure, urinary tract infection Urinary tract infection, resolved -Urine culture indicates Klebsiella pneumonia, Pseudomonas species -Complete Rocephin, Cipro Ischemic Cardiomyopathy/chronic systolic CHF LVEF 35% on echo 03/2015. Denies shortness of breath. Compensated. -Continue Coreg, Imdur, enalapril. -Could consider AICD if patient is able to consent, however patient is currently unable to consent -Fluid and sodium restrictions, follow volume status. Chronic kidney disease stage 3/4. Back to baseline -Avoid nephrotoxins. -Monitor BMP intermittently left tibial surface- with superficial wound -resolved Medication noncompliance, intermittent Case discussed with psychiatry, case management Discussed with nursing staff, this has been a long-term issue and nursing staff has been able to put his medications in applesauce and orange juice, and the patient takes the medications when done that way. Anemia with iron deficiency, hemoglobin stable since admission Iron studies indicate iron 45, TIBC 232, ferritin 345 Continue ferrous sulfate 325 mg daily Continue monitor CBC intermittently Bacteremia with Staphylococcus hemolyticus, from wounds. Resolved -Follow blood cultures have been negative since 10/16/15 -Status post Keflex and Cipro management -Infectious disease managed patient Diabetic mellitus - Glucose was well controlled. All insulin discontinued. -accu-checks discontinued as patient's blood sugar well controlled and Hgb A1c 6.9. -continue diet control Peripheral arterial disease-stable. -Continue anticoagulation Intermittent agitation- workup done to rule out infectious source causing change in mentation, improved -Continue Seroquel 100 mg in the morning and 150 mg at night -Psychiatry reevaluated the patient on 02/17 Constipation, patient having bowel movement every other day -Abdominal x-ray 02/16 indicates moderate amount of stool in the colon on the left side. -Milk of magnesia as needed. -MiraLAX, lactulose, Haydee-Colace daily, lactulose, MiraLAX -Dulcolax as needed DVT prophylaxis - patient on Coumadin Discharge Planning Patient is medically stable and has been cleared for discharge from medical perspective. Case management arranging discharge planning to care home facility once a finding facility that'll accept the patient/insurance. Has accepting SNF in order to get Medicaid, and must have someone to sign him in. Case management following. 03/23/16 0649 FOLLOWING TO FIND PLACEMENT FOR [facility]. SISTER WILLING TO ASSIST PATIENT NEEDS TO BE CLEARED TO D/C. AND NEED ACCEPTING SNF. EVELIA BEAUCHAMP LPN/Truman Gaytan Mar 25, 2016 11:26
[2016-03-25] MEDS: WARFARIN SOD 6 MG TAB PO SCH (16:18)
[2016-03-25 20:00] VITALS: BP 121/79; PULSE 77; RESP 18; TEMP 98.1; O2SAT 98
[2016-03-25] MEDS: ISOSORBIDE MONONITRATE 60 MG TAB PO SCH (21:11)
[2016-03-26 06:57] LABS: INTERNATIONAL NORMALIZED RATIO 2.2 RATIO; PROTHROMBIN TIME - PATIENT 24.7 SEC (9.8-11.6)
[2016-03-26 08:00] VITALS: BP 130/81; PULSE 96; RESP 17; TEMP 98; O2SAT 96
[2016-03-26] MEDS: ENALAPRIL MALEATE 5 MG TAB PO SCH ×2 (09:00→12:29)
[2016-03-26] MEDS: QUEtiapine FUMARATE 100 MG TAB PO SCH ×3 (09:00→20:20)
[2016-03-26] MEDS: ATORVASTATIN 40 MG TAB PO SCH ×2 (09:00→12:28)
[2016-03-26] MEDS: FERROUS SULFATE 325 MG (65 MG ELEMENTAL IRON) TAB PO SCH ×2 (09:00→12:29)
[2016-03-26] MEDS: EUCERIN CREAM 120 GM JAR TOPICAL SCH ×2 (09:00→20:25)
[2016-03-26] MEDS: LACTULOSE SYRUP 20 GM/30 ML CUP PO SCH (09:00)
[2016-03-26] MEDS: CARVEDILOL 12.5 MG TAB PO SCH ×3 (09:00→20:19)
[2016-03-26] MEDS: POLYETHYLENE GLYCOL 17 GM PKG PO SCH ×2 (09:00→12:29)
[2016-03-26] MEDS: DOCUSATE SODIUM 50 MG/SENNA 8.6 MG TAB PO SCH ×3 (09:00→20:20)
--- NOTE | 2016-03-26 09:41 | HHI.PR ---
Subjective Remarks No acute complaints. No change in clinical status. Objective Vitals Vital Signs Date Time Temp Pulse Resp B/P Pulse Ox O2 Delivery O2 Flow Rate FiO2 03/26/16 08:00 98.0 96 17 130/81 96 03/25/16 20:00 98.1 77 18 121/79 98 I/O 03/25/16 03/25/16 03/25/16 03/26/16 03/26/16 03/26/16 07:00 15:00 23:00 07:00 15:00 23:00 Intake Total 650 ml 1060 ml 60 ml Output Total 0 ml Balance 650 ml 1060 ml 60 ml Intake Oral 650 ml 1060 ml 60 ml Stool Total 0 ml # Voids 2 3 5 2 # Bowel Movements 0 1 0 Objective Remarks GENERAL: Well-nourished, well-developed male in no apparent distress in [place] bed. SKIN: Warm and dry. CARDIOVASCULAR: Regular rate and rhythm. RESPIRATORY: Limited anterior exam. No accessory muscle use. Clear to auscultation. RR normal. GASTROINTESTINAL: Abdomen soft, non-tender, nondistended. MUSCULOSKELETAL: Right BKA stump. No lower extremity edema. NEUROLOGICAL: Sleeping when I enter the room, but arouses to voice. Procedures None Urinary Catheter: No Vascular Central Line Catheter: No A/P Problem List: (1) Cellulitis ICD Code: L03.90 Status: Resolved (2) Ischemic cardiomyopathy ICD Code: I25.5 Status: Chronic (3) Diabetes mellitus type 2 in obese ICD Code: E11.9 Status: Chronic (4) S/P BKA (below knee amputation) unilateral ICD Code: Z89.519 Status: Chronic (5) Acute metabolic encephalopathy ICD Code: G93.41 Status: Resolved (6) Bacteremia ICD Code: R78.81 Status: Resolved (7) Chronic systolic (congestive) heart failure ICD Code: I50.22 Status: Chronic (8) Venous stasis ulcer of left lower extremity ICD Code: I83.029 Status: Chronic (9) CVA (cerebral vascular accident) ICD Code: I63.9 Status: Chronic (10) Seborrheic dermatitis ICD Code: L21.9 Status: Resolved (11) Anemia ICD Code: D64.9 Status: Chronic (12) HTN (hypertension) ICD Code: I10 Status: Acute (13) UTI (urinary tract infection) ICD Code: N39.0 Status: Resolved Assessment and Plan 60-year-old male with admitted 10/14 with acute cortical infarct. Patient remains with significant cognitive deficit. Bilateral cerebrovascular accident, with persistent cognitive defect -MRI showed acute cortical infarct of the right cerebral peduncle to the pelvis , left thalamus punctate area of infarct -Neurology last seen patient on 11/13/15, recommended long-term anticoagulation -Continue with Statin. -PT/OT reconsulted. -Out of bed with nursing only. Patient was counseled to not get out of bed on his own. Fall risk due to cognitive deficit -Patient was refusing warfarin doses and INR was subtherapeutic. Patient was switched to Lovenox with renal dosing 90 mg subcutaneous daily. Pharmacy consulted to monitor renal function. Warfarin was then restarted and patient has been more compliant with it. INR is now therapeutic. Lovenox was discontinued. Ischemic Cardiomyopathy/chronic systolic CHF LVEF 35% on echo 03/2015. Denies shortness of breath. Compensated. -Continue medications as below. -Could consider AICD if patient is able to consent, however patient is currently unable to consent -Sodium restrictions, follow volume status. Metabolic/infection encephalopathy, resolved -Patient mentation back to baseline -Etiology included a combination of dehydration, worsening renal failure, urinary tract infection Urinary tract infection, resolved -Urine culture indicates Klebsiella pneumonia, Pseudomonas species -Completed Ngozi Bowman Hypertension: BP good this morning. -Lisinopril 2.5 daily -Carvedilol 25 bid -Imdur 60 daily -Amlodipine 10 mg daily Chronic kidney disease stage 3/4. -Avoid nephrotoxins. -BMP 03/21 with Cr 1.6 stable. -Encourage po hydration, being cautious of CHF. Medication noncompliance: Patient was refusing the majority of his medications, so psychiatry was consulted. -Dr. Beard, psychiatrist states the patient is unable to make his own medical decisions. Advises IM or IV medications if necessary. -Patient still intermittently refusing his medications. Compliance encouraged. Will monitor. Anemia: Likely anemia of chronic disease due to CKD. Hemoglobin improved to 10. -Iron of 45, TIBC of 232, and % saturation of 19.4, with normal ferritin 345. -Discussed with attending who believes there may be an iron deficiency component as well. Continue Ferrous sulfate 325 mg by mouth daily. left tibial surface- with superficial wound - improving -posterior aspect with erythema avoid pressure Bacitracin bid Bacteremia with Staphylococcus hemolyticus, from wounds. Resolved -Follow blood cultures have been negative since 10/16/15 -Status post Keflex and Cipro management -Infectious disease managed patient Tinea cruris -S/p Nystatin powder Diabetic mellitus - Glucose was well controlled. All insulin discontinued. -Accu-checks discontinued as patient's blood sugar well controlled and Hgb A1c 6.9. -continue diet control Peripheral arterial disease-stable. -Continue anticoagulation Intermittent agitation: -Psychiatry reevaluated the patient on 02/17 and increased Seroquel doses. -Patient was endangering himself by trying to get out of bed with lower leg amputation. Knott bed currently. -Ativan and Haldol prn Constipation: Had 1 BM over the past 24 hours. -Abdominal x-ray 02/16 with moderate amount of stool in the colon on the left side; minimally prominent segments of small bowel in the upper abdomen -MiraLAX, Haydee-Colace, and Lactulose. -Continue Dulcolax suppository as needed. DVT prophylaxis -patient on Lovenox Discharge Planning Awaiting placement. PT at rehab recommended. OT recommends 3-1 bedside commode , shower bench, and long-term care facility with restorative services. Problem Qualifiers (1) Cellulitis: (2) S/P BKA (below knee amputation) unilateral: Qualified Code: Z89.511 - S/P BKA (below knee amputation) unilateral, right (3) CVA (cerebral vascular accident): Qualified Code: I63.9 - Cerebrovascular accident (CVA), unspecified mechanism Jennifer Mae Mar 26, 2016 09:41
[2016-03-26] MEDS: WARFARIN SOD 6 MG TAB PO SCH ×2 (16:00→17:16)
[2016-03-26 20:00] VITALS: BP 140/82; PULSE 91; RESP 18; TEMP 97.5; O2SAT 97
[2016-03-26] MEDS: ISOSORBIDE MONONITRATE 60 MG TAB PO SCH (20:20)
[2016-03-27 08:00] VITALS: BP 111/81; PULSE 74; RESP 20; TEMP 95.8; O2SAT 92
[2016-03-27 08:11] LABS: PROTHROMBIN TIME - PATIENT 22.9 SEC (9.8-11.6)
[2016-03-27] MEDS: FERROUS SULFATE 325 MG (65 MG ELEMENTAL IRON) TAB PO SCH (09:00)
[2016-03-27] MEDS: ATORVASTATIN 40 MG TAB PO SCH (09:00)
[2016-03-27] MEDS: LACTULOSE SYRUP 20 GM/30 ML CUP PO SCH (09:00)
[2016-03-27] MEDS: ENALAPRIL MALEATE 5 MG TAB PO SCH (09:00)
[2016-03-27] MEDS: CARVEDILOL 12.5 MG TAB PO SCH ×2 (09:00→21:18)
[2016-03-27] MEDS: QUEtiapine FUMARATE 100 MG TAB PO SCH ×2 (09:00→21:18)
[2016-03-27] MEDS: DOCUSATE SODIUM 50 MG/SENNA 8.6 MG TAB PO SCH ×2 (09:00→21:19)
[2016-03-27] MEDS: POLYETHYLENE GLYCOL 17 GM PKG PO SCH (09:00)
--- NOTE | 2016-03-27 09:49 | HHI.PR ---
Subjective Remarks No acute complaints. No change in clinical status. Objective Vitals Vital Signs Date Time Temp Pulse Resp B/P Pulse Ox O2 Delivery O2 Flow Rate FiO2 03/27/16 08:00 95.8 74 20 111/81 92 03/26/16 20:00 97.5 91 18 140/82 97 I/O 03/26/16 03/26/16 03/26/16 03/27/16 03/27/16 03/27/16 06:59 14:59 22:59 06:59 14:59 22:59 Intake Total 60 ml 420 ml 60 ml 60 ml Output Total 0 ml 300 ml Balance 60 ml 420 ml -240 ml 60 ml Intake Oral 60 ml 420 ml 60 ml 60 ml Output Urine Total 300 ml Stool Total 0 ml # Voids 2 0 3 # Bowel Movements 0 0 Objective Remarks GENERAL: Well-nourished, well-developed male in no apparent distress in [place] bed. SKIN: Warm and dry. CARDIOVASCULAR: Regular rate and rhythm. RESPIRATORY: Limited anterior exam. No accessory muscle use. Clear to auscultation. RR normal. NEUROLOGICAL: Awake and alert. Procedures None Urinary Catheter: No Vascular Central Line Catheter: No A/P Problem List: (1) Cellulitis ICD Code: L03.90 Status: Resolved (2) Ischemic cardiomyopathy ICD Code: I25.5 Status: Chronic (3) Diabetes mellitus type 2 in obese ICD Code: E11.9 Status: Chronic (4) S/P BKA (below knee amputation) unilateral ICD Code: Z89.519 Status: Chronic (5) Acute metabolic encephalopathy ICD Code: G93.41 Status: Resolved (6) Bacteremia ICD Code: R78.81 Status: Resolved (7) Chronic systolic (congestive) heart failure ICD Code: I50.22 Status: Chronic (8) Venous stasis ulcer of left lower extremity ICD Code: I83.029 Status: Chronic (9) CVA (cerebral vascular accident) ICD Code: I63.9 Status: Chronic (10) Seborrheic dermatitis ICD Code: L21.9 Status: Resolved (11) Anemia ICD Code: D64.9 Status: Chronic (12) HTN (hypertension) ICD Code: I10 Status: Acute (13) UTI (urinary tract infection) ICD Code: N39.0 Status: Resolved Assessment and Plan 60-year-old male with admitted 10/14 with acute cortical infarct. Patient remains with significant cognitive deficit. Bilateral cerebrovascular accident, with persistent cognitive defect -MRI showed acute cortical infarct of the right cerebral peduncle to the pelvis , left thalamus punctate area of infarct -Neurology last seen patient on 11/13/15, recommended long-term anticoagulation -Continue with Statin. -PT/OT reconsulted. -Out of bed with nursing only. Patient was counseled to not get out of bed on his own. Fall risk due to cognitive deficit -Patient was refusing warfarin doses and INR was subtherapeutic. Patient was switched to Lovenox with renal dosing 90 mg subcutaneous daily. Pharmacy consulted to monitor renal function. Warfarin was then restarted as patient became more compliant. INR is now therapeutic and Lovenox was discontinued, but patient again refused warfarin yesterday. If patient refuses today, INR will likely become subtherapeutic and Lovenox will need to be restarted. Monitor INR. Ischemic Cardiomyopathy/chronic systolic CHF LVEF 35% on echo 03/2015. Denies shortness of breath. Compensated. -Continue medications as below. -Could consider AICD if patient is able to consent, however patient is currently unable to consent -Sodium restrictions, follow volume status. Metabolic/infection encephalopathy, resolved -Patient mentation back to baseline -Etiology included a combination of dehydration, worsening renal failure, urinary tract infection Urinary tract infection, resolved -Urine culture indicates Klebsiella pneumonia, Pseudomonas species -Completed Rocephin Cipro Hypertension: BP good this morning. -Lisinopril 2.5 daily -Carvedilol 25 bid -Imdur 60 daily -Amlodipine 10 mg daily Chronic kidney disease stage 3/4. -Avoid nephrotoxins. -BMP 03/21 with Cr 1.6 stable. -Encourage po hydration, being cautious of CHF. Medication noncompliance: Patient was refusing the majority of his medications, so psychiatry was consulted. -Dr. Beard, psychiatrist states the patient is unable to make his own medical decisions. Advises IM or IV medications if necessary. -Patient still intermittently refusing his medications. Compliance encouraged. Will monitor. Anemia: Likely anemia of chronic disease due to CKD. Hemoglobin improved to 10. -Iron of 45, TIBC of 232, and % saturation of 19.4, with normal ferritin 345. -Discussed with attending who believes there may be an iron deficiency component as well. Continue Ferrous sulfate 325 mg by mouth daily. left tibial surface- with superficial wound - improving -posterior aspect with erythema avoid pressure Bacitracin bid Bacteremia with Staphylococcus hemolyticus, from wounds. Resolved -Follow blood cultures have been negative since 10/16/15 -Status post Keflex and Cipro management -Infectious disease managed patient Tinea cruris -S/p Nystatin powder Diabetic mellitus - Glucose was well controlled. All insulin discontinued. -Accu-checks discontinued as patient's blood sugar well controlled and Hgb A1c 6.9. -continue diet control Peripheral arterial disease-stable. -Continue anticoagulation Intermittent agitation: -Psychiatry reevaluated the patient on 02/17 and increased Seroquel doses. -Patient was endangering himself by trying to get out of bed with lower leg amputation. [facility] bed currently. -Ativan and Haldol prn Constipation: -Abdominal x-ray 02/16 with moderate amount of stool in the colon on the left side; minimally prominent segments of small bowel in the upper abdomen -MiraLAX, Haydee-Colace, and Lactulose. -Continue Dulcolax suppository as needed. DVT prophylaxis -patient on Lovenox Discharge Planning Awaiting placement. PT at rehab recommended. OT recommends 3-1 bedside commode , shower bench, and long-term care facility with restorative services. Problem Qualifiers (1) Cellulitis: (2) S/P BKA (below knee amputation) unilateral: Qualified Code: Z89.511 - S/P BKA (below knee amputation) unilateral, right (3) CVA (cerebral vascular accident): Qualified Code: I63.9 - Cerebrovascular accident (CVA), unspecified mechanism Jennifer Mae Mar 27, 2016 09:49
[2016-03-27] MEDS: EUCERIN CREAM 120 GM JAR TOPICAL SCH ×2 (11:22→21:20)
[2016-03-27] MEDS: WARFARIN SOD 6 MG TAB PO SCH (16:36)
[2016-03-27 21:00] VITALS: BP 127/87; PULSE 84; RESP 18; TEMP 98.2; O2SAT 97
[2016-03-27] MEDS: ISOSORBIDE MONONITRATE 60 MG TAB PO SCH (21:19)
[2016-03-28 07:53] LABS: INTERNATIONAL NORMALIZED RATIO 1.4 RATIO; PROTHROMBIN TIME - PATIENT 16.2 SEC (9.8-11.6)
[2016-03-28 08:30] VITALS: BP 124/84; PULSE 71; RESP 18; TEMP 96.1; O2SAT 96
[2016-03-28] MEDS: POLYETHYLENE GLYCOL 17 GM PKG PO SCH (09:00)
[2016-03-28] MEDS: EUCERIN CREAM 120 GM JAR TOPICAL SCH ×2 (09:00→21:12)
--- NOTE | 2016-03-28 09:40 | HHI.PR ---
Subjective Remarks Follow-up for persistent cognitive deficit, medication noncompliance. No acute complaints. Objective Vitals Vital Signs Date Time Temp Pulse Resp B/P Pulse Ox O2 Delivery O2 Flow Rate FiO2 03/28/16 08:30 96.1 71 18 124/84 96 03/27/16 21:00 98.2 84 18 127/87 97 I/O 03/27/16 03/27/16 03/27/16 03/28/16 03/28/16 03/28/16 06:59 14:59 22:59 06:59 14:59 22:59 Intake Total 60 ml 720 ml Output Total 450 ml 600 ml Balance 60 ml 270 ml -600 ml Intake Oral 60 ml 720 ml Output Urine Total 450 ml 600 ml # Voids 3 3 1 # Bowel Movements 0 0 Objective Remarks GENERAL: Well-nourished, well-developed male in no apparent distress in [place] bed. SKIN: Warm and dry. CARDIOVASCULAR: Regular rate and rhythm. RESPIRATORY: Limited anterior exam. No accessory muscle use. Clear to auscultation. GASTROINTESTINAL: Abdomen soft, non-tender, non-distended. NEUROLOGICAL: Awake and alert. Procedures None Urinary Catheter: No Vascular Central Line Catheter: No A/P Problem List: (1) Cellulitis ICD Code: L03.90 Status: Resolved (2) Ischemic cardiomyopathy ICD Code: I25.5 Status: Chronic (3) Diabetes mellitus type 2 in obese ICD Code: E11.9 Status: Chronic (4) S/P BKA (below knee amputation) unilateral ICD Code: Z89.519 Status: Chronic (5) Acute metabolic encephalopathy ICD Code: G93.41 Status: Resolved (6) Bacteremia ICD Code: R78.81 Status: Resolved (7) Chronic systolic (congestive) heart failure ICD Code: I50.22 Status: Chronic (8) Venous stasis ulcer of left lower extremity ICD Code: I83.029 Status: Chronic (9) CVA (cerebral vascular accident) ICD Code: I63.9 Status: Chronic (10) Seborrheic dermatitis ICD Code: L21.9 Status: Resolved (11) Anemia ICD Code: D64.9 Status: Chronic (12) HTN (hypertension) ICD Code: I10 Status: Acute (13) UTI (urinary tract infection) ICD Code: N39.0 Status: Resolved Assessment and Plan 60-year-old male with admitted 10/14 with acute cortical infarct. Patient remains with significant cognitive deficit. Bilateral cerebrovascular accident, with persistent cognitive defect -MRI showed acute cortical infarct of the right cerebral peduncle to the pelvis , left thalamus punctate area of infarct -Neurology last seen patient on 11/13/15, recommended long-term anticoagulation -Continue with Statin. -PT/OT reconsulted. -Out of bed with nursing only. Patient was counseled to not get out of bed on his own. Fall risk due to cognitive deficit -Patient was refusing warfarin doses and INR was subtherapeutic. Patient was switched to Lovenox with renal dosing 90 mg subcutaneous daily. Warfarin was then restarted, but the patient again is intermittently noncompliant. He did not take warfarin yesterday. INR is now subtherapeutic at 1.4. Pharmacy to monitor dosing. If patient continues to be noncompliant, will have to restart Lovenox. I informed the patient of this. -RN informed to take patient out of [facility] during the day to avoid rhabdo. Ischemic Cardiomyopathy/chronic systolic CHF LVEF 35% on echo 03/2015. Denies shortness of breath. Compensated. -Continue medications as below. -Could consider AICD if patient is able to consent, however patient is currently unable to consent -Sodium restrictions, follow volume status. Metabolic/infection encephalopathy, resolved -Patient mentation back to baseline -Etiology included a combination of dehydration, worsening renal failure, urinary tract infection Urinary tract infection, resolved -Urine culture indicates Klebsiella pneumonia, Pseudomonas species -Completed Rocephin, Cipro Hypertension: BP good this morning. -Lisinopril 2.5 daily -Carvedilol 25 bid -Imdur 60 daily -Amlodipine 10 mg daily Chronic kidney disease stage 3/4. -Avoid nephrotoxins. -BMP 03/21 with Cr 1.6 stable. -Encourage po hydration, being cautious of CHF. Medication noncompliance: Patient was refusing the majority of his medications, so psychiatry was consulted. -Dr. Beard, psychiatrist states the patient is unable to make his own medical decisions. Advises IM or IV medications if necessary. -Patient still intermittently refusing his medications. Compliance encouraged. Will monitor. Anemia: Likely anemia of chronic disease due to CKD. Hemoglobin improved to 10. -Iron of 45, TIBC of 232, and % saturation of 19.4, with normal ferritin 345. -Discussed with attending who believes there may be an iron deficiency component as well. Continue Ferrous sulfate 325 mg by mouth daily. left tibial surface- with superficial wound - improving -posterior aspect with erythema avoid pressure Bacitracin bid Bacteremia with Staphylococcus hemolyticus, from wounds. Resolved -Follow blood cultures have been negative since 10/16/15 -Status post Keflex and Cipro management -Infectious disease managed patient Tinea cruris -S/p Nystatin powder Diabetic mellitus - Glucose was well controlled. All insulin discontinued. -Accu-checks discontinued as patient's blood sugar well controlled and Hgb A1c 6.9. -continue diet control Peripheral arterial disease-stable. -Continue anticoagulation Intermittent agitation: -Psychiatry reevaluated the patient on 02/17 and increased Seroquel doses. -Patient was endangering himself by trying to get out of bed with lower leg amputation. [facility] bed currently. -Ativan and Haldol prn Constipation: -Abdominal x-ray 02/16 with moderate amount of stool in the colon on the left side; minimally prominent segments of small bowel in the upper abdomen -MiraLAX, Haydee-Colace, and Lactulose. -Continue Dulcolax suppository as needed. DVT prophylaxis -patient on Lovenox Discharge Planning Awaiting placement. PT at rehab recommended. OT recommends 3-1 bedside commode , shower bench, and long-term care facility with restorative services. Problem Qualifiers (1) Cellulitis: (2) S/P BKA (below knee amputation) unilateral: Qualified Code: Z89.511 - S/P BKA (below knee amputation) unilateral, right (3) CVA (cerebral vascular accident): Qualified Code: I63.9 - Cerebrovascular accident (CVA), unspecified mechanism Jennifer Mae Mar 28, 2016 09:40
[2016-03-28] MEDS: ENALAPRIL MALEATE 5 MG TAB PO SCH (09:56)
[2016-03-28] MEDS: DOCUSATE SODIUM 50 MG/SENNA 8.6 MG TAB PO SCH ×3 (09:56→21:00)
[2016-03-28] MEDS: QUEtiapine FUMARATE 100 MG TAB PO SCH ×2 (09:56→20:53)
[2016-03-28] MEDS: FERROUS SULFATE 325 MG (65 MG ELEMENTAL IRON) TAB PO SCH (09:57)
[2016-03-28] MEDS: CARVEDILOL 12.5 MG TAB PO SCH ×2 (09:57→20:53)
[2016-03-28] MEDS: ATORVASTATIN 40 MG TAB PO SCH (09:57)
[2016-03-28] MEDS: LACTULOSE SYRUP 20 GM/30 ML CUP PO SCH (09:58)
[2016-03-28] MEDS: WARFARIN SOD 6 MG TAB PO SCH ×2 (17:09→20:54)
[2016-03-28 20:00] VITALS: BP 130/88; PULSE 71; RESP 18; TEMP 97.6; O2SAT 99
[2016-03-28] MEDS: ISOSORBIDE MONONITRATE 60 MG TAB PO SCH (20:53)
[2016-03-29 05:36] LABS: INTERNATIONAL NORMALIZED RATIO 1.4 RATIO; PROTHROMBIN TIME - PATIENT 15.5 SEC (9.8-11.6)
[2016-03-29] MEDS: DOCUSATE SODIUM 50 MG/SENNA 8.6 MG TAB PO SCH ×2 (09:00→20:50)
[2016-03-29] MEDS: ATORVASTATIN 40 MG TAB PO SCH (09:00)
[2016-03-29] MEDS: FERROUS SULFATE 325 MG (65 MG ELEMENTAL IRON) TAB PO SCH (09:00)
[2016-03-29] MEDS: LACTULOSE SYRUP 20 GM/30 ML CUP PO SCH (09:00)
[2016-03-29] MEDS: EUCERIN CREAM 120 GM JAR TOPICAL SCH ×2 (09:00→20:52)
[2016-03-29] MEDS: CARVEDILOL 12.5 MG TAB PO SCH ×2 (09:00→20:51)
[2016-03-29] MEDS: POLYETHYLENE GLYCOL 17 GM PKG PO SCH (09:00)
[2016-03-29] MEDS: QUEtiapine FUMARATE 100 MG TAB PO SCH ×2 (09:00→20:50)
[2016-03-29] MEDS: ENALAPRIL MALEATE 5 MG TAB PO SCH (09:00)
[2016-03-29 09:46] VITALS: BP 93/61; PULSE 72; RESP 16; TEMP 98.4; O2SAT 96
--- NOTE | 2016-03-29 10:05 | HHI.PR ---
Subjective Remarks Follow-up for persisting cognitive deficit, medication noncompliance. The RN informs me the patient refused his warfarin again yesterday but states he took his nighttime medications and requests that the warfarin be changed to nighttime. Objective Vitals Vital Signs Date Time Temp Pulse Resp B/P Pulse Ox O2 Delivery O2 Flow Rate FiO2 03/29/16 09:46 98.4 72 16 93/61 96 03/28/16 20:00 97.6 71 18 130/88 99 I/O 03/28/16 03/28/16 03/28/16 03/29/16 03/29/16 03/29/16 06:59 14:59 22:59 06:59 14:59 22:59 Intake Total 480 ml 400 ml Output Total 400 ml Balance 80 ml 400 ml Intake Oral 480 ml 400 ml Output Urine Total 400 ml # Voids 1 2 1 # Bowel Movements 0 Objective Remarks GENERAL: Well-nourished, well-developed male in no apparent distress in [place] bed. SKIN: Warm and dry. CARDIOVASCULAR: Regular rate and rhythm. RESPIRATORY: Limited anterior exam. No accessory muscle use. Clear to auscultation. GASTROINTESTINAL: Normoactive bowel sounds. Abdomen soft, non-tender, non- distended. MUSCULOSKELETAL: R BKA noted. No lower extremity edema bilaterally. NEUROLOGICAL: Awake and alert. Follows commands. Procedures None Urinary Catheter: No Vascular Central Line Catheter: No A/P Problem List: (1) Cellulitis ICD Code: L03.90 Status: Resolved (2) Ischemic cardiomyopathy ICD Code: I25.5 Status: Chronic (3) Diabetes mellitus type 2 in obese ICD Code: E11.9 Status: Chronic (4) S/P BKA (below knee amputation) unilateral ICD Code: Z89.519 Status: Chronic (5) Acute metabolic encephalopathy ICD Code: G93.41 Status: Resolved (6) Bacteremia ICD Code: R78.81 Status: Resolved (7) Chronic systolic (congestive) heart failure ICD Code: I50.22 Status: Chronic (8) Venous stasis ulcer of left lower extremity ICD Code: I83.029 Status: Chronic (9) CVA (cerebral vascular accident) ICD Code: I63.9 Status: Chronic (10) Seborrheic dermatitis ICD Code: L21.9 Status: Resolved (11) Anemia ICD Code: D64.9 Status: Chronic (12) HTN (hypertension) ICD Code: I10 Status: Acute (13) UTI (urinary tract infection) ICD Code: N39.0 Status: Resolved Assessment and Plan 60-year-old male with admitted 10/14 with acute cortical infarct. Patient remains with significant cognitive deficit. Bilateral cerebrovascular accident, with persistent cognitive defect -MRI showed acute cortical infarct of the right cerebral peduncle to the pelvis , left thalamus punctate area of infarct -Neurology last seen patient on 11/13/15, recommended long-term anticoagulation -Continue with Statin. -PT/OT reconsulted. -Out of bed with nursing only. Patient was counseled to not get out of bed on his own. Fall risk due to cognitive deficit -Patient was refusing warfarin doses and INR was subtherapeutic. Patient was switched to Lovenox with renal dosing 90 mg subcutaneous daily. Warfarin was then restarted, but the patient again is intermittently noncompliant. INR is now subtherapeutic at 1.4. Pharmacy to monitor dosing. RN states patient takes nighttime meds so warfarin will be changed to qhs. If patient continues to be noncompliant, will have to restart Lovenox. I informed the patient of this. -RN informed to take patient out of [facility] during the day to avoid rhabdo. Ischemic Cardiomyopathy/chronic systolic CHF LVEF 35% on echo 03/2015. Denies shortness of breath. Compensated. -Continue medications as below. -Could consider AICD if patient is able to consent, however patient is currently unable to consent -Sodium restrictions, follow volume status. Metabolic/infection encephalopathy, resolved -Patient mentation back to baseline -Etiology included a combination of dehydration, worsening renal failure, urinary tract infection Urinary tract infection, resolved -Urine culture indicates Klebsiella pneumonia, Pseudomonas species -Completed Rocephin, Cipro Hypertension: Patient actually hypotensive this morning with BP 93/61, map 72, and he did not take his carvedilol this morning. Monitor. -Lisinopril 2.5 daily -Carvedilol 25 bid -Imdur 60 daily -Amlodipine 10 mg daily Chronic kidney disease stage 3/4. -Avoid nephrotoxins. -BMP 03/21 with Cr 1.6 stable. -Encourage po hydration, being cautious of CHF. Medication noncompliance: Patient was refusing the majority of his medications, so psychiatry was consulted. -Dr. Beard, psychiatrist states the patient is unable to make his own medical decisions. Advises IM or IV medications if necessary. -Patient still intermittently refusing his medications. Compliance encouraged. Will monitor. Anemia: Likely anemia of chronic disease due to CKD. Hemoglobin improved to 10. -Iron of 45, TIBC of 232, and % saturation of 19.4, with normal ferritin 345. -Discussed with attending who believes there may be an iron deficiency component as well. Continue Ferrous sulfate 325 mg by mouth daily. left tibial surface- with superficial wound - improving -posterior aspect with erythema avoid pressure Bacitracin bid Bacteremia with Staphylococcus hemolyticus, from wounds. Resolved -Follow blood cultures have been negative since 10/16/15 -Status post Keflex and Cipro management -Infectious disease managed patient Tinea cruris -S/p Nystatin powder Diabetic mellitus - Glucose was well controlled. All insulin discontinued. -Accu-checks discontinued as patient's blood sugar well controlled and Hgb A1c 6.9. -continue diet control Peripheral arterial disease-stable. -Continue anticoagulation Intermittent agitation: -Psychiatry reevaluated the patient on 02/17 and increased Seroquel doses. -Patient was endangering himself by trying to get out of bed with lower leg amputation. [facility] bed currently. -Ativan and Haldol prn Constipation: -Abdominal x-ray 02/16 with moderate amount of stool in the colon on the left side; minimally prominent segments of small bowel in the upper abdomen -MiraLAX, Haydee-Colace, and Lactulose. -Continue Dulcolax suppository as needed. DVT prophylaxis -patient on Lovenox Discharge Planning Awaiting placement. PT at rehab recommended. OT recommends 3-1 bedside commode , shower bench, and long-term care facility with restorative services. Problem Qualifiers (1) Cellulitis: (2) S/P BKA (below knee amputation) unilateral: Qualified Code: Z89.511 - S/P BKA (below knee amputation) unilateral, right (3) CVA (cerebral vascular accident): Qualified Code: I63.9 - Cerebrovascular accident (CVA), unspecified mechanism Jennifer Mae Mar 29, 2016 10:05
[2016-03-29 20:00] VITALS: BP 149/86; PULSE 84; RESP 18; TEMP 97.6; O2SAT 100
[2016-03-29] MEDS: ISOSORBIDE MONONITRATE 60 MG TAB PO SCH (20:50)
[2016-03-29] MEDS ORDERED: WARFARIN SOD 6 MG TAB PO SCH (21:00)
[2016-03-30 06:44] LABS: INTERNATIONAL NORMALIZED RATIO 1.4 RATIO; PROTHROMBIN TIME - PATIENT 16.2 SEC (9.8-11.6)
[2016-03-30] MEDS: ATORVASTATIN 40 MG TAB PO SCH (08:09)
[2016-03-30] MEDS: POLYETHYLENE GLYCOL 17 GM PKG PO SCH (08:09)
[2016-03-30] MEDS: LACTULOSE SYRUP 20 GM/30 ML CUP PO SCH (08:09)
[2016-03-30] MEDS: CARVEDILOL 12.5 MG TAB PO SCH ×2 (08:09→22:28)
[2016-03-30] MEDS: QUEtiapine FUMARATE 100 MG TAB PO SCH ×2 (08:10→22:27)
[2016-03-30] MEDS: FERROUS SULFATE 325 MG (65 MG ELEMENTAL IRON) TAB PO SCH (08:10)
[2016-03-30] MEDS: DOCUSATE SODIUM 50 MG/SENNA 8.6 MG TAB PO SCH ×2 (08:10→22:22)
[2016-03-30] MEDS: ENALAPRIL MALEATE 5 MG TAB PO SCH (08:15)
[2016-03-30] MEDS: EUCERIN CREAM 120 GM JAR TOPICAL SCH ×2 (08:16→22:29)
--- NOTE | 2016-03-30 11:04 | HHI.PR ---
Subjective Remarks Follow-up for persistent cognitive deficit, medication noncompliance. No acute complaints. Objective Vitals Vital Signs Date Time Temp Pulse Resp B/P Pulse Ox O2 Delivery O2 Flow Rate FiO2 03/29/16 20:00 97.6 84 18 149/86 100 I/O 03/29/16 03/29/16 03/29/16 03/30/16 03/30/16 03/30/16 07:00 15:00 23:00 07:00 15:00 23:00 Intake Total 840 ml 780 ml 80 ml Output Total 350 ml Balance 840 ml 430 ml 80 ml Intake Oral 840 ml 780 ml 80 ml Output Urine Total 350 ml # Voids 1 3 1 Objective Remarks GENERAL: Well-nourished, well-developed male in no apparent distress in [place] bed. SKIN: Warm and dry. CARDIOVASCULAR: Regular rate and rhythm. RESPIRATORY: Limited anterior exam. No accessory muscle use. Clear to auscultation. GASTROINTESTINAL: Normoactive bowel sounds. Abdomen soft, non-tender, non- distended. NEUROLOGICAL: Awake and alert. Procedures None Urinary Catheter: No Vascular Central Line Catheter: No A/P Problem List: (1) Cellulitis ICD Code: L03.90 Status: Resolved (2) Ischemic cardiomyopathy ICD Code: I25.5 Status: Chronic (3) Diabetes mellitus type 2 in obese ICD Code: E11.9 Status: Chronic (4) S/P BKA (below knee amputation) unilateral ICD Code: Z89.519 Status: Chronic (5) Acute metabolic encephalopathy ICD Code: G93.41 Status: Resolved (6) Bacteremia ICD Code: R78.81 Status: Resolved (7) Chronic systolic (congestive) heart failure ICD Code: I50.22 Status: Chronic (8) Venous stasis ulcer of left lower extremity ICD Code: I83.029 Status: Chronic (9) CVA (cerebral vascular accident) ICD Code: I63.9 Status: Chronic (10) Seborrheic dermatitis ICD Code: L21.9 Status: Chronic (11) Anemia ICD Code: D64.9 Status: Chronic (12) HTN (hypertension) ICD Code: I10 Status: Acute (13) UTI (urinary tract infection) ICD Code: N39.0 Status: Resolved Assessment and Plan 60-year-old male with admitted 10/14 with acute cortical infarct. Patient remains with significant cognitive deficit. Bilateral cerebrovascular accident, with persistent cognitive defect -MRI showed acute cortical infarct of the right cerebral peduncle to the pelvis , left thalamus punctate area of infarct -Neurology last seen patient on 11/13/15, recommended long-term anticoagulation -Continue with Statin. -PT/OT reconsulted. -Out of bed with nursing only. Patient was counseled to not get out of bed on his own. Fall risk due to cognitive deficit -Patient was refusing warfarin doses and INR was subtherapeutic. Patient was switched to Lovenox with renal dosing 90 mg subcutaneous daily. Warfarin was then restarted, but the patient again is intermittently noncompliant. INR is now subtherapeutic at 1.4. RN states patient takes nighttime meds so warfarin was changed to qhs and the patient was compliant with medication last night. Pharmacy to adjust dosing. -RN informed to take patient out of [place] during the day to avoid rhabdo. Ischemic Cardiomyopathy/chronic systolic CHF LVEF 35% on echo 03/2015. Denies shortness of breath. Compensated. -Continue medications as below. -Could consider AICD if patient is able to consent, however patient is currently unable to consent -Sodium restrictions, follow volume status. Metabolic/infection encephalopathy, resolved -Patient mentation back to baseline -Etiology included a combination of dehydration, worsening renal failure, urinary tract infection Urinary tract infection, resolved -Urine culture indicates Klebsiella pneumonia, Pseudomonas species -Completed Rocephin, Cipro Hypertension: -Lisinopril 2.5 daily -Carvedilol 25 bid -Imdur 60 daily -Amlodipine 10 mg daily Chronic kidney disease stage 3/4. -Avoid nephrotoxins. -BMP 03/21 with Cr 1.6 stable. -Encourage po hydration, being cautious of CHF. Medication noncompliance: Patient was refusing the majority of his medications, so psychiatry was consulted. -Dr. Beard, psychiatrist states the patient is unable to make his own medical decisions. Advises IM or IV medications if necessary. -Patient still intermittently refusing his medications. Compliance encouraged. Will monitor. He took all of his medications today. Anemia: Likely anemia of chronic disease due to CKD. Hemoglobin improved to 10. -Iron of 45, TIBC of 232, and % saturation of 19.4, with normal ferritin 345. -Discussed with attending who believes there may be an iron deficiency component as well. Continue Ferrous sulfate 325 mg by mouth daily. left tibial surface- with superficial wound - improving -posterior aspect with erythema avoid pressure Bacitracin bid Bacteremia with Staphylococcus hemolyticus, from wounds. Resolved -Follow blood cultures have been negative since 10/16/15 -Status post Keflex and Cipro management -Infectious disease managed patient Tinea cruris -S/p Nystatin powder Diabetic mellitus - Glucose was well controlled. All insulin discontinued. -Accu-checks discontinued as patient's blood sugar well controlled and Hgb A1c 6.9. -continue diet control Peripheral arterial disease-stable. -Continue anticoagulation Intermittent agitation: -Psychiatry reevaluated the patient on 02/17 and increased Seroquel doses. -Patient was endangering himself by trying to get out of bed with lower leg amputation. [place] bed currently. -Ativan and Haldol prn Constipation: -Abdominal x-ray 02/16 with moderate amount of stool in the colon on the left side; minimally prominent segments of small bowel in the upper abdomen -MiraLAX, Haydee-Colace, and Lactulose. -Continue Dulcolax suppository as needed. DVT prophylaxis -patient on Lovenox Discharge Planning Awaiting placement. PT at rehab recommended. OT recommends 3-1 bedside commode , shower bench, and long-term care facility with restorative services. Problem Qualifiers (1) Cellulitis: (2) S/P BKA (below knee amputation) unilateral: Qualified Code: Z89.511 - S/P BKA (below knee amputation) unilateral, right (3) CVA (cerebral vascular accident): Qualified Code: I63.9 - Cerebrovascular accident (CVA), unspecified mechanism Jennifer Mae Mar 30, 2016 11:04
[2016-03-30 14:53] VITALS: BP 101/70; PULSE 80; RESP 14; TEMP 96.1; O2SAT 98
[2016-03-30 20:00] VITALS: BP 146/92; PULSE 79; RESP 20; TEMP 97.2; O2SAT 99
[2016-03-30] MEDS ORDERED: WARFARIN SOD 10 MG TAB PO ONE (21:00)
[2016-03-30] MEDS: ISOSORBIDE MONONITRATE 60 MG TAB PO SCH (22:25)
[2016-03-31 05:25] LABS: INTERNATIONAL NORMALIZED RATIO 1.4 RATIO; PROTHROMBIN TIME - PATIENT 15.7 SEC (9.8-11.6)
[2016-03-31] MEDS: QUEtiapine FUMARATE 100 MG TAB PO SCH ×2 (07:54→20:24)
[2016-03-31] MEDS: DOCUSATE SODIUM 50 MG/SENNA 8.6 MG TAB PO SCH ×2 (07:54→20:23)
[2016-03-31] MEDS: ATORVASTATIN 40 MG TAB PO SCH (07:54)
[2016-03-31] MEDS: LACTULOSE SYRUP 20 GM/30 ML CUP PO SCH (07:54)
[2016-03-31] MEDS: ENALAPRIL MALEATE 5 MG TAB PO SCH (07:54)
[2016-03-31] MEDS: POLYETHYLENE GLYCOL 17 GM PKG PO SCH (07:54)
[2016-03-31] MEDS: CARVEDILOL 12.5 MG TAB PO SCH ×2 (07:55→20:23)
[2016-03-31] MEDS: EUCERIN CREAM 120 GM JAR TOPICAL SCH ×2 (07:55→20:27)
[2016-03-31] MEDS: FERROUS SULFATE 325 MG (65 MG ELEMENTAL IRON) TAB PO SCH (07:55)
[2016-03-31 08:00] VITALS: BP 103/75; PULSE 76; RESP 20; TEMP 96.3; O2SAT 99
--- NOTE | 2016-03-31 11:05 | HHI.PR ---
Subjective Remarks Follow-up for persistent cognitive deficit. No acute complaints. No change in clinical status. Objective Vitals Vital Signs Date Time Temp Pulse Resp B/P Pulse Ox O2 Delivery O2 Flow Rate FiO2 03/31/16 08:00 96.3 76 20 103/75 99 03/30/16 20:00 97.2 79 20 146/92 99 03/30/16 14:53 96.1 80 14 101/70 98 I/O 03/30/16 03/30/16 03/30/16 03/31/16 03/31/16 03/31/16 06:59 14:59 22:59 06:59 14:59 22:59 Intake Total 80 ml 1720 ml 120 ml Output Total 400 ml Balance 80 ml 1320 ml 120 ml Intake Oral 80 ml 1720 ml 120 ml Output Urine Total 400 ml # Voids 1 7 3 # Bowel Movements 1 0 Objective Remarks GENERAL: Well-nourished, well-developed male in no apparent distress sitting in recliner eating. SKIN: Warm and dry. CARDIOVASCULAR: Regular rate and rhythm. RESPIRATORY: Limited anterior exam. No accessory muscle use. Clear to auscultation. GASTROINTESTINAL: Abdomen soft, non-tender, non-distended. NEUROLOGICAL: Awake and alert. Procedures None A/P Problem List: (1) Cellulitis ICD Code: L03.90 Status: Resolved (2) Ischemic cardiomyopathy ICD Code: I25.5 Status: Chronic (3) Diabetes mellitus type 2 in obese ICD Code: E11.9 Status: Chronic (4) S/P BKA (below knee amputation) unilateral ICD Code: Z89.519 Status: Chronic (5) Acute metabolic encephalopathy ICD Code: G93.41 Status: Resolved (6) Bacteremia ICD Code: R78.81 Status: Resolved (7) Chronic systolic (congestive) heart failure ICD Code: I50.22 Status: Chronic (8) Venous stasis ulcer of left lower extremity ICD Code: I83.029 Status: Chronic (9) CVA (cerebral vascular accident) ICD Code: I63.9 Status: Chronic (10) Seborrheic dermatitis ICD Code: L21.9 Status: Chronic (11) Anemia ICD Code: D64.9 Status: Chronic (12) HTN (hypertension) ICD Code: I10 Status: Acute (13) UTI (urinary tract infection) ICD Code: N39.0 Status: Resolved Assessment and Plan 60-year-old male with admitted 10/14 with acute cortical infarct. Patient remains with significant cognitive deficit. Bilateral cerebrovascular accident, with persistent cognitive defect -MRI showed acute cortical infarct of the right cerebral peduncle to the pelvis , left thalamus punctate area of infarct -Neurology last seen patient on 11/13/15, recommended long-term anticoagulation -Continue with Statin. -PT/OT reconsulted. -Out of bed with nursing only. Patient was counseled to not get out of bed on his own. Fall risk due to cognitive deficit -Patient was refusing warfarin doses and INR was subtherapeutic. Patient was switched to Lovenox with renal dosing 90 mg subcutaneous daily. Warfarin was then restarted, but the patient again is intermittently noncompliant. INR is still subtherapeutic at 1.4. Patient has been compliant with warfarin since it now given at night. Pharmacy to adjust dosing. -RN informed to take patient out of [place] during the day to avoid rhabdo. Ischemic Cardiomyopathy/chronic systolic CHF LVEF 35% on echo 03/2015. Denies shortness of breath. Compensated. -Continue medications as below. -Could consider AICD if patient is able to consent, however patient is currently unable to consent -Sodium restrictions, follow volume status. Metabolic/infection encephalopathy, resolved -Patient mentation back to baseline -Etiology included a combination of dehydration, worsening renal failure, urinary tract infection Urinary tract infection, resolved -Urine culture indicates Klebsiella pneumonia, Pseudomonas species -Completed Rocephin Cipro Hypertension: -Lisinopril 2.5 daily -Carvedilol 25 bid -Imdur 60 daily -Amlodipine 10 mg daily Chronic kidney disease stage 3/4. -Avoid nephrotoxins. -BMP 03/21 with Cr 1.6 stable. -Encourage po hydration, being cautious of CHF. Medication noncompliance: Patient was refusing the majority of his medications, so psychiatry was consulted. -Dr. Beard, psychiatrist states the patient is unable to make his own medical decisions. Advises IM or IV medications if necessary. -Patient still intermittently refusing his medications. Compliance encouraged. Will monitor. He took all of his medications today. Anemia: Likely anemia of chronic disease due to CKD. Hemoglobin improved to 10. -Iron of 45, TIBC of 232, and % saturation of 19.4, with normal ferritin 345. -Discussed with attending who believes there may be an iron deficiency component as well. Continue Ferrous sulfate 325 mg by mouth daily. left tibial surface- with superficial wound - improving -posterior aspect with erythema avoid pressure Bacitracin bid Bacteremia with Staphylococcus hemolyticus, from wounds. Resolved -Follow blood cultures have been negative since 10/16/15 -Status post Keflex and Cipro management -Infectious disease managed patient Tinea cruris -S/p Nystatin powder Diabetic mellitus - Glucose was well controlled. All insulin discontinued. -Accu-checks discontinued as patient's blood sugar well controlled and Hgb A1c 6.9. -continue diet control Peripheral arterial disease-stable. -Continue anticoagulation Intermittent agitation: -Psychiatry reevaluated the patient on 02/17 and increased Seroquel doses. -Patient was endangering himself by trying to get out of bed with lower leg amputation. [place] bed currently. -Ativan and Haldol prn Constipation: -Abdominal x-ray 02/16 with moderate amount of stool in the colon on the left side; minimally prominent segments of small bowel in the upper abdomen -MiraLAX, Haydee-Colace, and Lactulose. -Continue Dulcolax suppository as needed. DVT prophylaxis -patient on Lovenox Discharge Planning Awaiting placement. PT at rehab recommended. OT recommends 3-1 bedside commode , shower bench, and long-term care facility with restorative services. Problem Qualifiers (1) Cellulitis: (2) S/P BKA (below knee amputation) unilateral: Qualified Code: Z89.511 - S/P BKA (below knee amputation) unilateral, right (3) CVA (cerebral vascular accident): Qualified Code: I63.9 - Cerebrovascular accident (CVA), unspecified mechanism Jennifer Mae Mar 31, 2016 11:05
[2016-03-31 20:00] VITALS: BP 121/75; PULSE 88; RESP 18; TEMP 97.5; O2SAT 98
[2016-03-31] MEDS: ISOSORBIDE MONONITRATE 60 MG TAB PO SCH (20:23)
[2016-03-31] MEDS: WARFARIN SOD 6 MG TAB PO SCH (20:23)
[2016-03-31] MEDS ORDERED: WARFARIN SOD 4 MG TAB PO ONE (21:00)
[2016-04-01 06:40] LABS: INTERNATIONAL NORMALIZED RATIO 1.7 RATIO; PROTHROMBIN TIME - PATIENT 19.6 SEC (9.8-11.6)
[2016-04-01] MEDS: POLYETHYLENE GLYCOL 17 GM PKG PO SCH (07:59)
[2016-04-01 08:00] VITALS: BP 121/82; PULSE 81; RESP 16; TEMP 97; O2SAT 100
[2016-04-01] MEDS: CARVEDILOL 12.5 MG TAB PO SCH ×2 (08:00→19:49)
[2016-04-01] MEDS: ATORVASTATIN 40 MG TAB PO SCH (08:00)
[2016-04-01] MEDS: LACTULOSE SYRUP 20 GM/30 ML CUP PO SCH (08:00)
[2016-04-01] MEDS: QUEtiapine FUMARATE 100 MG TAB PO SCH ×2 (08:00→19:49)
[2016-04-01] MEDS: FERROUS SULFATE 325 MG (65 MG ELEMENTAL IRON) TAB PO SCH (08:00)
[2016-04-01] MEDS: DOCUSATE SODIUM 50 MG/SENNA 8.6 MG TAB PO SCH ×2 (08:00→19:50)
[2016-04-01] MEDS: ENALAPRIL MALEATE 5 MG TAB PO SCH (08:00)
[2016-04-01] MEDS: EUCERIN CREAM 120 GM JAR TOPICAL SCH ×2 (08:00→19:50)
--- NOTE | 2016-04-01 10:21 | HHI.PR ---
Subjective Remarks No acute complaints. No change in clinical status. Objective Vitals Vital Signs Date Time Temp Pulse Resp B/P Pulse Ox O2 Delivery O2 Flow Rate FiO2 04/01/16 08:00 97.0 81 16 121/82 100 03/31/16 20:00 97.5 88 18 121/75 98 I/O 03/31/16 03/31/16 03/31/16 04/01/16 04/01/16 04/01/16 07:00 15:00 23:00 07:00 15:00 23:00 Intake Total 120 ml 360 ml 0 ml 420 ml Balance 120 ml 360 ml 0 ml 420 ml Intake Oral 120 ml 360 ml 0 ml 420 ml # Voids 3 1 0 2 # Bowel Movements 0 0 0 0 Objective Remarks GENERAL: Well-nourished, well-developed male in no apparent distress sitting in recliner. SKIN: Warm and dry. CARDIOVASCULAR: Regular rate and rhythm. RESPIRATORY: Limited anterior exam. No accessory muscle use. Clear to auscultation. GASTROINTESTINAL: Abdomen soft, non-tender, non-distended. NEUROLOGICAL: Awake and alert. Procedures None Urinary Catheter: No Vascular Central Line Catheter: No A/P Problem List: (1) Cellulitis ICD Code: L03.90 Status: Resolved (2) Ischemic cardiomyopathy ICD Code: I25.5 Status: Chronic (3) Diabetes mellitus type 2 in obese ICD Code: E11.9 Status: Chronic (4) S/P BKA (below knee amputation) unilateral ICD Code: Z89.519 Status: Chronic (5) Acute metabolic encephalopathy ICD Code: G93.41 Status: Resolved (6) Bacteremia ICD Code: R78.81 Status: Resolved (7) Chronic systolic (congestive) heart failure ICD Code: I50.22 Status: Chronic (8) Venous stasis ulcer of left lower extremity ICD Code: I83.029 Status: Chronic (9) CVA (cerebral vascular accident) ICD Code: I63.9 Status: Chronic (10) Seborrheic dermatitis ICD Code: L21.9 Status: Chronic (11) Anemia ICD Code: D64.9 Status: Chronic (12) HTN (hypertension) ICD Code: I10 Status: Acute (13) UTI (urinary tract infection) ICD Code: N39.0 Status: Resolved Assessment and Plan 60-year-old male with admitted 6/16 with acute cortical infarct. Patient remains with significant cognitive deficit. Bilateral cerebrovascular accident, with persistent cognitive defect -MRI showed acute cortical infarct of the right cerebral peduncle to the pelvis , left thalamus punctate area of infarct -Neurology last seen patient on 11/13/15, recommended long-term anticoagulation -Continue with Statin. -PT/OT reconsulted. -Out of bed with nursing only. Patient was counseled to not get out of bed on his own. Fall risk due to cognitive deficit -Patient was refusing warfarin doses and INR was subtherapeutic. Patient was switched to Lovenox with renal dosing 90 mg subcutaneous daily. Warfarin was then restarted, but the patient again is intermittently noncompliant.Patient has been compliant with warfarin since it now given at night. INR is improved but still subtherapeutic at 1.7. Pharmacy to adjust dosing. -RN informed to take patient out of [place] during the day to avoid rhabdo. Ischemic Cardiomyopathy/chronic systolic CHF LVEF 35% on echo 03/2015. Denies shortness of breath. Compensated. -Continue medications as below. -Could consider AICD if patient is able to consent, however patient is currently unable to consent -Sodium restrictions, follow volume status. Metabolic/infection encephalopathy, resolved -Patient mentation back to baseline -Etiology included a combination of dehydration, worsening renal failure, urinary tract infection Urinary tract infection, resolved -Urine culture indicates Klebsiella pneumonia, Pseudomonas species -Completed Rocephin, Cipro Hypertension: -Lisinopril 2.5 daily -Carvedilol 25 bid -Imdur 60 daily -Amlodipine 10 mg daily Chronic kidney disease stage 3/4. -Avoid nephrotoxins. -BMP 03/21 with Cr 1.6 stable. -Encourage po hydration, being cautious of CHF. Medication noncompliance: Patient was refusing the majority of his medications, so psychiatry was consulted. -Dr. Beard, psychiatrist states the patient is unable to make his own medical decisions. Advises IM or IV medications if necessary. -Patient still intermittently refusing his medications. Compliance encouraged. Will monitor. Anemia: Likely anemia of chronic disease due to CKD. Hemoglobin improved to 10. -Iron of 45, TIBC of 232, and % saturation of 19.4, with normal ferritin 345. -Discussed with attending who believes there may be an iron deficiency component as well. Continue Ferrous sulfate 325 mg by mouth daily. left tibial surface- with superficial wound - improving -posterior aspect with erythema avoid pressure Bacitracin bid Bacteremia with Staphylococcus hemolyticus, from wounds. Resolved -Follow blood cultures have been negative since 10/16/15 -Status post Keflex and Cipro management -Infectious disease managed patient Tinea cruris -S/p treatment Diabetic mellitus - Glucose was well controlled. All insulin discontinued. -Accu-checks discontinued as patient's blood sugar well controlled and Hgb A1c 6.9. -Continue diet control Peripheral arterial disease-stable. -Continue anticoagulation Intermittent agitation: -Psychiatry reevaluated the patient on 02/17 and increased Seroquel doses. -Patient was endangering himself by trying to get out of bed with lower leg amputation. [place] bed currently. -Ativan and Haldol prn Constipation: -Abdominal x-ray 02/16 with moderate amount of stool in the colon on the left side; minimally prominent segments of small bowel in the upper abdomen -MiraLAX, Haydee-Colace, and Lactulose. -Continue Dulcolax suppository as needed. DVT prophylaxis -patient on Lovenox Discharge Planning Awaiting placement. PT at rehab recommended. OT recommends 3-1 bedside commode , shower bench, and long-term care facility with restorative services. Problem Qualifiers (1) Cellulitis: (2) S/P BKA (below knee amputation) unilateral: Qualified Code: Z89.511 - S/P BKA (below knee amputation) unilateral, right (3) CVA (cerebral vascular accident): Qualified Code: I63.9 - Cerebrovascular accident (CVA), unspecified mechanism Jennifer Mae Apr 01, 2016 10:21
[2016-04-01] MEDS: ISOSORBIDE MONONITRATE 60 MG TAB PO SCH (19:48)
[2016-04-01] MEDS: WARFARIN SOD 6 MG TAB PO SCH (19:48)
[2016-04-01 20:00] VITALS: BP 115/76; PULSE 92; RESP 20; TEMP 98.5; O2SAT 99
[2016-04-01] MEDS ORDERED: WARFARIN SOD 4 MG TAB PO ONE (21:00)
[2016-04-02 08:45] VITALS: BP 113/75; PULSE 80; RESP 20; TEMP 98.3; O2SAT 94
[2016-04-02] MEDS: CARVEDILOL 12.5 MG TAB PO SCH ×2 (08:48→20:50)
[2016-04-02] MEDS: FERROUS SULFATE 325 MG (65 MG ELEMENTAL IRON) TAB PO SCH (08:49)
[2016-04-02] MEDS: DOCUSATE SODIUM 50 MG/SENNA 8.6 MG TAB PO SCH ×2 (08:49→20:49)
[2016-04-02] MEDS: POLYETHYLENE GLYCOL 17 GM PKG PO SCH (08:49)
[2016-04-02] MEDS: EUCERIN CREAM 120 GM JAR TOPICAL SCH ×2 (08:49→20:51)
[2016-04-02] MEDS: ATORVASTATIN 40 MG TAB PO SCH (08:49)
[2016-04-02] MEDS: LACTULOSE SYRUP 20 GM/30 ML CUP PO SCH (08:49)
[2016-04-02] MEDS: ENALAPRIL MALEATE 5 MG TAB PO SCH (08:49)
[2016-04-02] MEDS: QUEtiapine FUMARATE 100 MG TAB PO SCH ×2 (08:49→20:50)
[2016-04-02 12:37] LABS: INTERNATIONAL NORMALIZED RATIO 2.2 RATIO; PROTHROMBIN TIME - PATIENT 24.7 SEC (9.8-11.6)
--- NOTE | 2016-04-02 13:53 | HHI.PR ---
Subjective Remarks Patient states he is "lousy" and when I ask why he states "everything". Objective Vitals Vital Signs Date Time Temp Pulse Resp B/P Pulse Ox O2 Delivery O2 Flow Rate FiO2 04/02/16 08:45 98.3 80 20 113/75 94 04/01/16 20:00 98.5 92 20 115/76 99 I/O 04/01/16 04/01/16 04/01/16 04/02/16 04/02/16 04/02/16 06:59 14:59 22:59 06:59 14:59 22:59 Intake Total 420 ml 360 ml 60 ml Output Total 600 ml 150 ml Balance 420 ml -240 ml -90 ml Intake Oral 420 ml 360 ml 60 ml Output Urine Total 600 ml 150 ml # Voids 2 2 # Bowel Movements 0 0 1 Objective Remarks GENERAL: Well-nourished, well-developed male in no apparent distress sitting in recliner. SKIN: Warm and dry. Abrasion right knee. [place] healed skin over L tibia. CARDIOVASCULAR: Regular rate and rhythm. RESPIRATORY: Limited anterior exam. No accessory muscle use. Clear to auscultation. GASTROINTESTINAL: Normoactive bowel sounds. Abdomen soft, non-tender, non- distended. MUSCULOSKELETAL: Right BKA. No lower extremity edema. NEUROLOGICAL: Awake and alert. Procedures None Urinary Catheter: No Vascular Central Line Catheter: No A/P Problem List: (1) Cellulitis ICD Code: L03.90 Status: Resolved (2) Ischemic cardiomyopathy ICD Code: I25.5 Status: Chronic (3) Diabetes mellitus type 2 in obese ICD Code: E11.9 Status: Chronic (4) S/P BKA (below knee amputation) unilateral ICD Code: Z89.519 Status: Chronic (5) Acute metabolic encephalopathy ICD Code: G93.41 Status: Resolved (6) Bacteremia ICD Code: R78.81 Status: Resolved (7) Chronic systolic (congestive) heart failure ICD Code: I50.22 Status: Chronic (8) Venous stasis ulcer of left lower extremity ICD Code: I83.029 Status: Chronic (9) CVA (cerebral vascular accident) ICD Code: I63.9 Status: Chronic (10) Seborrheic dermatitis ICD Code: L21.9 Status: Chronic (11) Anemia ICD Code: D64.9 Status: Chronic (12) HTN (hypertension) ICD Code: I10 Status: Acute (13) UTI (urinary tract infection) ICD Code: N39.0 Status: Resolved Assessment and Plan 60-year-old male with admitted 10/14 with acute cortical infarct. Patient remains with significant cognitive deficit. Bilateral cerebrovascular accident, with persistent cognitive defect -MRI showed acute cortical infarct of the right cerebral peduncle to the pelvis , left thalamus punctate area of infarct -Neurology last seen patient on 11/13/15, recommended long-term anticoagulation -Continue with Statin. -PT/OT reconsulted. -Out of bed with nursing only. Patient was counseled to not get out of bed on his own. Fall risk due to cognitive deficit -Patient was refusing warfarin doses and INR was subtherapeutic. Patient was switched to Lovenox with renal dosing 90 mg subcutaneous daily. Warfarin was then restarted; patient has been compliant with warfarin since it now given at night. INR is now therapeutic at 2.2. Monitor INR. Pharmacy to adjust dosing. -RN informed to take patient out of [place] during the day to avoid rhabdo. Ischemic Cardiomyopathy/chronic systolic CHF LVEF 35% on echo 03/2015. Denies shortness of breath. Compensated. -Continue medications as below. -Could consider AICD if patient is able to consent, however patient is currently unable to consent -Sodium restrictions, follow volume status. Metabolic/infection encephalopathy, resolved -Patient mentation back to baseline -Etiology included a combination of dehydration, worsening renal failure, urinary tract infection Urinary tract infection, resolved -Urine culture indicates Klebsiella pneumonia, Pseudomonas species -Completed Rocephin, Cipro Hypertension: -Lisinopril 2.5 daily -Carvedilol 25 bid -Imdur 60 daily -Amlodipine 10 mg daily Chronic kidney disease stage 3/4. -Avoid nephrotoxins. -BMP 03/21 with Cr 1.6 stable. -Encourage po hydration, being cautious of CHF. Medication noncompliance: Patient was refusing the majority of his medications, so psychiatry was consulted. -Dr. Beard, psychiatrist states the patient is unable to make his own medical decisions. Advises IM or IV medications if necessary. -Patient still intermittently refusing his medications. Compliance encouraged. Will monitor. Anemia: Likely anemia of chronic disease due to CKD. Hemoglobin improved to 10. -Iron of 45, TIBC of 232, and % saturation of 19.4, with normal ferritin 345. -Discussed with attending who believes there may be an iron deficiency component as well. Continue Ferrous sulfate 325 mg by mouth daily. left tibial surface- with superficial wound - improving -posterior aspect with erythema avoid pressure Bacitracin bid Bacteremia with Staphylococcus hemolyticus, from wounds. Resolved -Follow blood cultures have been negative since 10/16/15 -Status post Keflex and Cipro management -Infectious disease managed patient Tinea cruris -S/p treatment Diabetic mellitus - Glucose was well controlled. All insulin discontinued. -Accu-checks discontinued as patient's blood sugar well controlled and Hgb A1c 6.9. -Continue diet control Peripheral arterial disease-stable. -Continue anticoagulation Intermittent agitation: -Psychiatry reevaluated the patient on 02/17 and increased Seroquel doses. -Patient was endangering himself by trying to get out of bed with lower leg amputation. [place] bed currently. -Ativan and Haldol prn Constipation: -Abdominal x-ray 02/16 with moderate amount of stool in the colon on the left side; minimally prominent segments of small bowel in the upper abdomen -MiraLAX, Haydee-Colace, and Lactulose. -Continue Dulcolax suppository as needed. DVT prophylaxis -patient on Lovenox Discharge Planning Awaiting placement. PT at rehab recommended. OT recommends 3-1 bedside commode , shower bench, and long-term care facility with restorative services. Problem Qualifiers (1) Cellulitis: (2) S/P BKA (below knee amputation) unilateral: Qualified Code: Z89.511 - S/P BKA (below knee amputation) unilateral, right (3) CVA (cerebral vascular accident): Qualified Code: I63.9 - Cerebrovascular accident (CVA), unspecified mechanism Jennifer Mae Apr 02, 2016 13:53
[2016-04-02 20:00] VITALS: BP 102/69; PULSE 80; RESP 18; TEMP 97.6; O2SAT 96
[2016-04-02] MEDS: WARFARIN SOD 6 MG TAB PO SCH (20:49)
[2016-04-02] MEDS: ISOSORBIDE MONONITRATE 60 MG TAB PO SCH (20:49)
[2016-04-03 09:00] VITALS: BP 133/89; PULSE 72; RESP 16; TEMP 97.7; O2SAT 95
[2016-04-03] MEDS: EUCERIN CREAM 120 GM JAR TOPICAL SCH ×2 (09:00→21:15)
[2016-04-03] MEDS: CARVEDILOL 12.5 MG TAB PO SCH ×2 (09:17→21:00)
[2016-04-03] MEDS: LACTULOSE SYRUP 20 GM/30 ML CUP PO SCH (09:17)
[2016-04-03] MEDS: FERROUS SULFATE 325 MG (65 MG ELEMENTAL IRON) TAB PO SCH (09:17)
[2016-04-03] MEDS: QUEtiapine FUMARATE 100 MG TAB PO SCH ×2 (09:17→21:13)
[2016-04-03] MEDS: ATORVASTATIN 40 MG TAB PO SCH (09:17)
[2016-04-03] MEDS: POLYETHYLENE GLYCOL 17 GM PKG PO SCH (09:18)
[2016-04-03] MEDS: DOCUSATE SODIUM 50 MG/SENNA 8.6 MG TAB PO SCH ×2 (09:18→21:12)
[2016-04-03] MEDS: ENALAPRIL MALEATE 5 MG TAB PO SCH (09:22)
[2016-04-03 09:38] LABS: INTERNATIONAL NORMALIZED RATIO 2.1 RATIO; PROTHROMBIN TIME - PATIENT 23.6 SEC (9.8-11.6)
--- NOTE | 2016-04-03 11:28 | HHI.PR ---
Subjective Remarks Patient seen and examined today. Patient denies any new complaints. No change in clinical status. Objective Vitals Vital Signs Date Time Temp Pulse Resp B/P Pulse Ox O2 Delivery O2 Flow Rate FiO2 04/03/16 09:00 97.7 72 16 133/89 95 04/02/16 20:00 97.6 80 18 102/69 96 I/O 04/02/16 04/02/16 04/02/16 04/03/16 04/03/16 04/03/16 06:59 14:59 22:59 06:59 14:59 22:59 Intake Total 60 ml 0 ml 0 ml Output Total 150 ml Balance -90 ml 0 ml 0 ml Intake Oral 60 ml IV Total 0 ml 0 ml Output Urine Total 150 ml # Voids 2 3 1 # Bowel Movements 1 0 Objective Remarks GENERAL: Well-developed, well-nourished, in no acute distress. Alert and orientated to person HEENT: Head is normocephalic without any lesions or masses noted. Facial features are symmetric. Extraocular muscles are intact. Conjunctivae were clear. NECK: Supple without any masses. Trachea midline no deviation. No JVD, CARDIAC: Regular rhythm, regular rate. S1/S2 are heard. No murmurs gallops or rubs. LUNGS: Clear to auscultation bilaterally. No wheeze, rhonchi or rales. No use of accessory muscles on inspiration or expiration. ABDOMEN: Soft, nontender. Nondistended. Bowel sounds heard in all 4 quadrants. No organomegaly or masses. Negative rebound, negative guarding. EXTREMITIES: No edema, pulses are equal bilaterally. No cyanosis or clubbing. 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 Left foot and Multi-Podus boot, NEUROLOGY: Mood and affect appear appropriate. Cranial nerves II through XII grossly intact. Moving all extremities, speech is clear Procedures None Urinary Catheter: No Vascular Central Line Catheter: No A/P Assessment and Plan 60-year-old male with admitted 10/14 with acute cortical infarct. Patient remains with significant cognitive deficit. Bilateral cerebrovascular accident, with persistent cognitive defect -MRI showed acute cortical infarct of the right cerebral peduncle to the pelvis , left thalamus punctate area of infarct -Neurology last seen patient on 11/13/15, recommended long-term anticoagulation -Continue with Statin. -Continue Coumadin 5 mg daily and monitor INR/PT keep INR between 2 and 3, pharmacy consult for dosing. INR 2.1, -Reconsulted PT/OT, patient will require intermittent therapy while he remains in the hospital so he does not decompensate -Out of bed with nursing only. Patient was counseled to not get out of bed on his own. Fall risk due to cognitive deficit -[place] bed, vest restraints while in chair -Psychiatry reconsulted for evaluation and appreciate recommendations on patient 's cognition, agitation -Seroquel 100 mg daily and 150 mg at bedtime Hypertension: Systolic blood pressure 102-133, stable Amlodipine 10 mg daily Lisinopril 5 mg daily carvedilol 25 bid, Imdur 60 daily Ischemic Cardiomyopathy/chronic systolic CHF LVEF 35% on echo 03/2015. Denies shortness of breath. Compensated. -Continue Coreg, Imdur, enalapril. -Could consider AICD if patient is able to consent, however patient is currently unable to consent -Fluid and sodium restrictions, follow volume status. Chronic kidney disease stage 3/4. Stable -Avoid nephrotoxins. -Monitor BMP intermittently Anemia with iron deficiency, hemoglobin stable since admission Iron studies indicate iron 45, TIBC 232, ferritin 345 Continue ferrous sulfate 325 mg daily Continue monitor CBC intermittently Bacteremia with Staphylococcus hemolyticus, from wounds. Resolved -Follow blood cultures have been negative since 10/16/15 -Status post Keflex and Cipro management -Infectious disease managed patient Diabetic mellitus - Glucose was well controlled. All insulin discontinued. -accu-checks discontinued as patient's blood sugar well controlled and Hgb A1c 6.9. -continue diet control Peripheral arterial disease-stable. -Continue anticoagulation Intermittent agitation- workup done to rule out infectious source causing change in mentation, improved -Continue Seroquel 100 mg in the morning and 150 mg at night -Psychiatry reevaluated the patient on 02/17 Constipation, patient having bowel movement every other day -Abdominal x-ray 02/16 indicates moderate amount of stool in the colon on the left side. -Milk of magnesia as needed. -MiraLAX, lactulose, Haydee-Colace daily, lactulose, MiraLAX -Dulcolax as needed DVT prophylaxis - patient on Coumadin Discharge Planning Patient is medically stable and has been cleared for discharge from medical perspective. Case management arranging discharge planning to long-term facility once a finding facility that'll accept the patient/insurance. Has accepting SNF in order to get Medicaid, and must have someone to sign him in. Case management following. 03/23/16 0649 FOLLOWING TO FIND PLACEMENT FOR [employer] [employer] COORDINATOR. SISTER WILLING TO ASSIST PATIENT NEEDS TO BE CLEARED TO D/C. AND NEED ACCEPTING SNF. EVELIA BEAUCHAMP LPN/Truman Gaytan Apr 03, 2016 11:28
[2016-04-03 20:00] VITALS: BP_SYST 102; BP_SYST 117; BP_DIAS 74; BP_DIAS 77; PULSE 103; PULSE 85; RESP 18; TEMP 97.2; TEMP 98.2; O2SAT 96; O2SAT 97
[2016-04-03] MEDS: ISOSORBIDE MONONITRATE 60 MG TAB PO SCH (21:00)
[2016-04-03] MEDS: WARFARIN SOD 6 MG TAB PO SCH (21:14)
[2016-04-04 06:17] LABS: INTERNATIONAL NORMALIZED RATIO 2.1 RATIO; PROTHROMBIN TIME - PATIENT 24.4 SEC (9.8-11.6)
[2016-04-04] MEDS: POLYETHYLENE GLYCOL 17 GM PKG PO SCH (08:43)
[2016-04-04] MEDS: LACTULOSE SYRUP 20 GM/30 ML CUP PO SCH (08:44)
[2016-04-04] MEDS: CARVEDILOL 12.5 MG TAB PO SCH ×2 (08:44→20:52)
[2016-04-04] MEDS: FERROUS SULFATE 325 MG (65 MG ELEMENTAL IRON) TAB PO SCH (08:44)
[2016-04-04] MEDS: ENALAPRIL MALEATE 5 MG TAB PO SCH (08:45)
[2016-04-04] MEDS: QUEtiapine FUMARATE 100 MG TAB PO SCH ×2 (08:45→20:53)
[2016-04-04] MEDS: DOCUSATE SODIUM 50 MG/SENNA 8.6 MG TAB PO SCH ×2 (08:45→20:52)
[2016-04-04] MEDS: ATORVASTATIN 40 MG TAB PO SCH (08:46)
[2016-04-04] MEDS: EUCERIN CREAM 120 GM JAR TOPICAL SCH ×2 (08:51→20:54)
--- NOTE | 2016-04-04 09:13 | HHI.PR ---
Subjective Remarks Patient seen and examined today. Patient denies any new complaints. No change in clinical status. Objective Vitals Vital Signs Date Time Temp Pulse Resp B/P Pulse Ox O2 Delivery O2 Flow Rate FiO2 04/03/16 20:00 97.2 85 18 102/77 97 I/O 04/03/16 04/03/16 04/03/16 04/04/16 04/04/16 04/04/16 06:59 14:59 22:59 06:59 14:59 22:59 Intake Total 0 ml 0 ml 550 ml 150 ml Output Total 750 ml Balance 0 ml 0 ml 550 ml -600 ml Intake Oral 550 ml 150 ml IV Total 0 ml 0 ml Output Urine Total 750 ml # Voids 1 2 4 2 # Bowel Movements 0 Objective Remarks GENERAL: Well-developed, well-nourished, in no acute distress. Alert and orientated to person HEENT: Head is normocephalic without any lesions or masses noted. Facial features are symmetric. Extraocular muscles are intact. Conjunctivae were clear. NECK: Supple without any masses. Trachea midline no deviation. No JVD, CARDIAC: Regular rhythm, regular rate. S1/S2 are heard. No murmurs gallops or rubs. LUNGS: Clear to auscultation bilaterally. No wheeze, rhonchi or rales. No use of accessory muscles on inspiration or expiration. ABDOMEN: Soft, nontender. Nondistended. Bowel sounds heard in all 4 quadrants. No organomegaly or masses. Negative rebound, negative guarding. EXTREMITIES: No edema, pulses are equal bilaterally. No cyanosis or clubbing. Right dvebh-qnf-josr amputation. Left foot and Multi-Podus boot, NEUROLOGY: Mood and affect appear appropriate. Cranial nerves II through XII grossly intact. Moving all extremities, speech is clear Procedures None Urinary Catheter: No Vascular Central Line Catheter: No A/P Assessment and Plan 60-year-old male with admitted 10/14 with acute cortical infarct. Patient remains with significant cognitive deficit. Bilateral cerebrovascular accident, with persistent cognitive defect -MRI showed acute cortical infarct of the right cerebral peduncle to the pelvis , left thalamus punctate area of infarct -Neurology last seen patient on 11/13/15, recommended long-term anticoagulation -Continue with Statin. -Continue Coumadin 5 mg daily and monitor INR/PT keep INR between 2 and 3, pharmacy consult for dosing. INR 2.1, -Reconsulted PT/OT, patient will require intermittent therapy while he remains in the hospital so he does not decompensate -Out of bed with nursing only. Patient was counseled to not get out of bed on his own. Fall risk due to cognitive deficit -[place] bed, vest restraints while in chair -Psychiatry reconsulted for evaluation and appreciate recommendations on patient 's cognition, agitation -Seroquel 100 mg daily and 150 mg at bedtime Hypertension: Systolic blood pressure 102-133, stable Amlodipine 10 mg daily Lisinopril 5 mg daily carvedilol 25 bid, Imdur 60 daily Ischemic Cardiomyopathy/chronic systolic CHF LVEF 35% on echo 03/2015. Denies shortness of breath. Compensated. -Continue Coreg, Imdur, enalapril. -Could consider AICD if patient is able to consent, however patient is currently unable to consent -Fluid and sodium restrictions, follow volume status. Chronic kidney disease stage 3/4. Stable -Avoid nephrotoxins. -Monitor BMP intermittently Anemia with iron deficiency, hemoglobin stable since admission Iron studies indicate iron 45, TIBC 232, ferritin 345 Continue ferrous sulfate 325 mg daily Continue monitor CBC intermittently Bacteremia with Staphylococcus hemolyticus, from wounds. Resolved -Follow blood cultures have been negative since 10/16/15 -Status post Keflex and Cipro management -Infectious disease managed patient Diabetic mellitus - Glucose was well controlled. All insulin discontinued. -accu-checks discontinued as patient's blood sugar well controlled and Hgb A1c 6.9. -continue diet control Peripheral arterial disease-stable. -Continue anticoagulation Intermittent agitation- workup done to rule out infectious source causing change in mentation, improved -Continue Seroquel 100 mg in the morning and 150 mg at night -Psychiatry reevaluated the patient on 02/17 Constipation, patient having bowel movement every other day -Abdominal x-ray 02/16 indicates moderate amount of stool in the colon on the left side. -Milk of magnesia as needed. -MiraLAX, lactulose, Haydee-Colace daily, lactulose, MiraLAX -Dulcolax as needed DVT prophylaxis - patient on Coumadin Discharge Planning Patient is medically stable and has been cleared for discharge from medical perspective. Case management arranging discharge planning to nursing home facility once a finding facility that'll accept the patient/insurance. Has accepting SNF in order to get Medicaid, and must have someone to sign him in. Case management following. 03/23/16 0649 FOLLOWING TO FIND PLACEMENT FOR [facility]. SISTER WILLING TO ASSIST PATIENT NEEDS TO BE CLEARED TO D/C. AND NEED ACCEPTING SNF. EVELIA BEAUCHAMP LPN/Truman Gaytan Apr 04, 2016 09:13
[2016-04-04 09:34] VITALS: BP 144/100; PULSE 81; RESP 15; TEMP 97.7; O2SAT 98
[2016-04-04 20:00] VITALS: BP 140/93; PULSE 83; RESP 18; TEMP 98.9; O2SAT 98
[2016-04-04] MEDS: WARFARIN SOD 6 MG TAB PO SCH (20:52)
[2016-04-04] MEDS: ISOSORBIDE MONONITRATE 60 MG TAB PO SCH (20:53)
[2016-04-05 06:10] LABS: INTERNATIONAL NORMALIZED RATIO 2.4 RATIO; PROTHROMBIN TIME - PATIENT 27.6 SEC (9.8-11.6)
[2016-04-05 08:00] VITALS: BP 132/74; PULSE 80; RESP 19; TEMP 96.9; O2SAT 96
[2016-04-05] MEDS: EUCERIN CREAM 120 GM JAR TOPICAL SCH ×2 (08:36→21:31)
[2016-04-05] MEDS: CARVEDILOL 12.5 MG TAB PO SCH ×2 (08:38→21:25)
[2016-04-05] MEDS: ATORVASTATIN 40 MG TAB PO SCH (08:38)
[2016-04-05] MEDS: ENALAPRIL MALEATE 5 MG TAB PO SCH (08:38)
[2016-04-05] MEDS: QUEtiapine FUMARATE 100 MG TAB PO SCH ×2 (08:38→21:24)
[2016-04-05] MEDS: FERROUS SULFATE 325 MG (65 MG ELEMENTAL IRON) TAB PO SCH (08:38)
[2016-04-05] MEDS: DOCUSATE SODIUM 50 MG/SENNA 8.6 MG TAB PO SCH ×2 (08:39→21:25)
[2016-04-05] MEDS: LACTULOSE SYRUP 20 GM/30 ML CUP PO SCH (08:39)
[2016-04-05] MEDS: POLYETHYLENE GLYCOL 17 GM PKG PO SCH (08:39)
--- NOTE | 2016-04-05 10:05 | HHI.PR ---
Subjective Remarks Patient seen and examined today. Patient denies any new complaints. No change in clinical status. Objective Vitals Vital Signs Date Time Temp Pulse Resp B/P Pulse Ox O2 Delivery O2 Flow Rate FiO2 04/05/16 08:00 96.9 80 19 132/74 96 04/04/16 20:00 98.9 83 18 140/93 98 I/O 04/04/16 04/04/16 04/04/16 04/05/16 04/05/16 04/05/16 07:00 15:00 23:00 07:00 15:00 23:00 Intake Total 150 ml 1010 ml 0 ml Output Total 750 ml Balance -600 ml 1010 ml 0 ml Intake Oral 150 ml 1010 ml 0 ml Output Urine Total 750 ml # Voids 2 5 1 # Bowel Movements 0 1 0 Objective Remarks GENERAL: Well-developed, well-nourished, in no acute distress. Alert and orientated to person HEENT: Head is normocephalic without any lesions or masses noted. Facial features are symmetric. Extraocular muscles are intact. Conjunctivae were clear. NECK: Supple without any masses. Trachea midline no deviation. No JVD, CARDIAC: Regular rhythm, regular rate. S1/S2 are heard. No murmurs gallops or rubs. LUNGS: Clear to auscultation bilaterally. No wheeze, rhonchi or rales. No use of accessory muscles on inspiration or expiration. ABDOMEN: Soft, nontender. Nondistended. Bowel sounds heard in all 4 quadrants. No organomegaly or masses. Negative rebound, negative guarding. EXTREMITIES: No edema, pulses are equal bilaterally. No cyanosis or clubbing. Right divcy-wtm-itgw amputation. Left foot and Multi-Podus boot, NEUROLOGY: Mood and affect appear appropriate. Cranial nerves II through XII grossly intact. Moving all extremities, speech is clear Procedures None Urinary Catheter: No Vascular Central Line Catheter: No A/P Assessment and Plan 60-year-old male with admitted 10/14 with acute cortical infarct. Patient remains with significant cognitive deficit. Bilateral cerebrovascular accident, with persistent cognitive defect -MRI showed acute cortical infarct of the right cerebral peduncle to the pelvis , left thalamus punctate area of infarct -Neurology last seen patient on 11/13/15, recommended long-term anticoagulation -Continue with Statin. -Continue Coumadin 5 mg daily and monitor INR/PT keep INR between 2 and 3, pharmacy consult for dosing. INR 2.4, -Reconsulted PT/OT, patient will require intermittent therapy while he remains in the hospital so he does not decompensate -Out of bed with nursing only. Patient was counseled to not get out of bed on his own. Fall risk due to cognitive deficit -[place] bed, vest restraints while in chair -Psychiatry reconsulted for evaluation and appreciate recommendations on patient 's cognition, agitation -Seroquel 100 mg daily and 150 mg at bedtime Hypertension: Systolic blood pressure 102-133, stable Amlodipine 10 mg daily Lisinopril 5 mg daily carvedilol 25 bid, Imdur 60 daily Ischemic Cardiomyopathy/chronic systolic CHF LVEF 35% on echo 03/2015. Denies shortness of breath. Compensated. -Continue Coreg, Imdur, enalapril. -Could consider AICD if patient is able to consent, however patient is currently unable to consent -Fluid and sodium restrictions, follow volume status. Chronic kidney disease stage 3/4. Stable -Avoid nephrotoxins. -Monitor BMP intermittently Anemia with iron deficiency, hemoglobin stable since admission Iron studies indicate iron 45, TIBC 232, ferritin 345 Continue ferrous sulfate 325 mg daily Continue monitor CBC intermittently Bacteremia with Staphylococcus hemolyticus, from wounds. Resolved -Follow blood cultures have been negative since 10/16/15 -Status post Keflex and Cipro management -Infectious disease managed patient Diabetic mellitus - Glucose was well controlled. All insulin discontinued. -accu-checks discontinued as patient's blood sugar well controlled and Hgb A1c 6.9. -continue diet control Peripheral arterial disease-stable. -Continue anticoagulation Intermittent agitation- workup done to rule out infectious source causing change in mentation, improved -Continue Seroquel 100 mg in the morning and 150 mg at night -Psychiatry reevaluated the patient on 02/17 Constipation, patient having bowel movement every 2-3 days -Abdominal x-ray 02/16 indicates moderate amount of stool in the colon on the left side. -Milk of magnesia as needed. -MiraLAX, lactulose, Haydee-Colace daily, lactulose, MiraLAX -Dulcolax as needed DVT prophylaxis - patient on Coumadin Discharge Planning Patient is medically stable and has been cleared for discharge from medical perspective. Case management arranging discharge planning to nursing home facility once a finding facility that'll accept the patient/insurance. Has accepting SNF in order to get Medicaid, and must have someone to sign him in. Case management following. 03/23/16 0649 FOLLOWING TO FIND PLACEMENT FOR ASSISTED. SISTER WILLING TO ASSIST PATIENT NEEDS TO BE CLEARED TO D/C. AND NEED ACCEPTING SNF. EVELIA BEAUCHAMP LPN/Truman Gaytan Apr 05, 2016 10:05
[2016-04-05 20:00] VITALS: BP 120/76; PULSE 80; RESP 20; TEMP 98.7; O2SAT 98
[2016-04-05] MEDS: ISOSORBIDE MONONITRATE 60 MG TAB PO SCH (21:26)
[2016-04-05] MEDS: WARFARIN SOD 6 MG TAB PO SCH (21:34)
[2016-04-06 06:03] LABS: INTERNATIONAL NORMALIZED RATIO 2.5 RATIO; PROTHROMBIN TIME - PATIENT 28.3 SEC (9.8-11.6)
[2016-04-06 08:00] VITALS: BP 110/79; PULSE 73; RESP 18; TEMP 97.4; O2SAT 98
[2016-04-06] MEDS: ENALAPRIL MALEATE 5 MG TAB PO SCH (09:00)
--- NOTE | 2016-04-06 09:22 | HHI.PR ---
Subjective Remarks Patient seen and examined today. Patient denies any new complaints. No change in clinical status. Objective Vitals Vital Signs Date Time Temp Pulse Resp B/P Pulse Ox O2 Delivery O2 Flow Rate FiO2 04/06/16 08:00 97.4 73 18 110/79 98 04/05/16 20:00 98.7 80 20 120/76 98 I/O 04/05/16 04/05/16 04/05/16 04/06/16 04/06/16 04/06/16 06:59 14:59 22:59 06:59 14:59 22:59 Intake Total 0 ml 840 ml 120 ml 120 ml Balance 0 ml 840 ml 120 ml 120 ml Intake Oral 0 ml 840 ml 120 ml 120 ml # Voids 1 3 3 2 # Bowel Movements 0 0 0 0 Objective Remarks GENERAL: Well-developed, well-nourished, in no acute distress. Alert and orientated to person HEENT: Head is normocephalic without any lesions or masses noted. Facial features are symmetric. Extraocular muscles are intact. Conjunctivae were clear. NECK: Supple without any masses. Trachea midline no deviation. No JVD, CARDIAC: Regular rhythm, regular rate. S1/S2 are heard. No murmurs gallops or rubs. LUNGS: Clear to auscultation bilaterally. No wheeze, rhonchi or rales. No use of accessory muscles on inspiration or expiration. ABDOMEN: Soft, nontender. Nondistended. Bowel sounds heard in all 4 quadrants. No organomegaly or masses. Negative rebound, negative guarding. EXTREMITIES: No edema, pulses are equal bilaterally. No cyanosis or clubbing. Right rcxmw-jcc-pdxt amputation. Left foot and Multi-Podus boot, NEUROLOGY: Mood and affect appear appropriate. Cranial nerves II through XII grossly intact. Moving all extremities, speech is clear Procedures None Urinary Catheter: No Vascular Central Line Catheter: No A/P Assessment and Plan 60-year-old male with admitted 10/14 with acute cortical infarct. Patient remains with significant cognitive deficit. Bilateral cerebrovascular accident, with persistent cognitive defect -MRI showed acute cortical infarct of the right cerebral peduncle to the pelvis , left thalamus punctate area of infarct -Neurology last seen patient on 11/13/15, recommended long-term anticoagulation -Continue with Statin. -Continue Coumadin 5 mg daily and monitor INR/PT keep INR between 2 and 3, pharmacy consult for dosing. INR 2.4, -Reconsulted PT/OT, patient will require intermittent therapy while he remains in the hospital so he does not decompensate -Out of bed with nursing only. Patient was counseled to not get out of bed on his own. Fall risk due to cognitive deficit -[place] bed, vest restraints while in chair -Psychiatry reconsulted for evaluation and appreciate recommendations on patient 's cognition, agitation -Seroquel 100 mg daily and 150 mg at bedtime Hypertension: Systolic blood pressure 102-133, stable Amlodipine 10 mg daily Lisinopril 5 mg daily carvedilol 25 bid, Imdur 60 daily Ischemic Cardiomyopathy/chronic systolic CHF LVEF 35% on echo 03/2015. Denies shortness of breath. Compensated. -Continue Coreg, Imdur, enalapril. -Could consider AICD if patient is able to consent, however patient is currently unable to consent -Fluid and sodium restrictions, follow volume status. Chronic kidney disease stage 3/4. Stable -Avoid nephrotoxins. -Monitor BMP intermittently Anemia with iron deficiency, hemoglobin stable since admission Iron studies indicate iron 45, TIBC 232, ferritin 345 Continue ferrous sulfate 325 mg daily Continue monitor CBC intermittently Bacteremia with Staphylococcus hemolyticus, from wounds. Resolved -Follow blood cultures have been negative since 10/16/15 -Status post Keflex and Cipro management -Infectious disease managed patient Diabetic mellitus - Glucose was well controlled. All insulin discontinued. -accu-checks discontinued as patient's blood sugar well controlled and Hgb A1c 6.9. -continue diet control Peripheral arterial disease-stable. -Continue anticoagulation Intermittent agitation- workup done to rule out infectious source causing change in mentation, improved -Continue Seroquel 100 mg in the morning and 150 mg at night -Psychiatry reevaluated the patient on 02/17 Constipation, patient having bowel movement every 2-3 days -Abdominal x-ray 02/16 indicates moderate amount of stool in the colon on the left side. -Milk of magnesia as needed. -MiraLAX, lactulose, Haydee-Colace daily, lactulose, MiraLAX -Dulcolax as needed DVT prophylaxis - patient on Coumadin Discharge Planning Patient is medically stable and has been cleared for discharge from medical perspective. Case management arranging discharge planning to [facility] facility once a finding facility that'll accept the patient/insurance. Has accepting SNF in order to get Medicaid, and must have someone to sign him in. Case management following. 03/31/16 1322 FOLLOWING FOR ABILITY TO PALCE PATIENT IN [facility] CARE SETTING NEED TO HAVE PATIENT CLEARED TO DO SO, FINDING AN ACCEPTING FACILITY WILL BE A CHALLENGE BUT WILL CONT TO WORK ON THIS EVELIA BEAUCHAMP LPN/Truman Gaytan Apr 06, 2016 09:22
[2016-04-06] MEDS: POLYETHYLENE GLYCOL 17 GM PKG PO SCH (09:27)
[2016-04-06] MEDS: LACTULOSE SYRUP 20 GM/30 ML CUP PO SCH (09:27)
[2016-04-06] MEDS: ATORVASTATIN 40 MG TAB PO SCH (09:28)
[2016-04-06] MEDS: DOCUSATE SODIUM 50 MG/SENNA 8.6 MG TAB PO SCH ×2 (09:30→20:00)
[2016-04-06] MEDS: FERROUS SULFATE 325 MG (65 MG ELEMENTAL IRON) TAB PO SCH (09:30)
[2016-04-06] MEDS: QUEtiapine FUMARATE 100 MG TAB PO SCH ×2 (09:30→20:00)
[2016-04-06] MEDS: CARVEDILOL 12.5 MG TAB PO SCH ×2 (09:30→20:00)
[2016-04-06] MEDS: EUCERIN CREAM 120 GM JAR TOPICAL SCH ×2 (10:15→20:01)
[2016-04-06 20:00] VITALS: BP 120/69; PULSE 70; RESP 16; TEMP 98.9; O2SAT 95
[2016-04-06] MEDS: WARFARIN SOD 6 MG TAB PO SCH (20:00)
[2016-04-06] MEDS: ISOSORBIDE MONONITRATE 60 MG TAB PO SCH (20:00)
[2016-04-07 08:00] VITALS: BP 128/63; PULSE 76; RESP 20; TEMP 98; O2SAT 96
[2016-04-07 08:02] LABS: INTERNATIONAL NORMALIZED RATIO 2.7 RATIO
--- NOTE | 2016-04-07 08:33 | HHI.PR ---
Subjective Remarks Patient seen and examined today. Patient denies any new complaints. No change in clinical status. Objective Vitals Vital Signs Date Time Temp Pulse Resp B/P Pulse Ox O2 Delivery O2 Flow Rate FiO2 04/06/16 20:00 98.9 70 16 120/69 95 I/O 04/06/16 04/06/16 04/06/16 04/07/16 04/07/16 04/07/16 06:59 14:59 22:59 06:59 14:59 22:59 Intake Total 120 ml 480 ml 420 ml 0 ml Balance 120 ml 480 ml 420 ml 0 ml Intake Oral 120 ml 480 ml 420 ml 0 ml IV Total 0 ml # Voids 2 2 2 0 # Bowel Movements 0 1 1 0 Objective Remarks GENERAL: Well-developed, well-nourished, in no acute distress. Alert and orientated to person HEENT: Head is normocephalic without any lesions or masses noted. Facial features are symmetric. Extraocular muscles are intact. Conjunctivae were clear. NECK: Supple without any masses. Trachea midline no deviation. No JVD, CARDIAC: Regular rhythm, regular rate. S1/S2 are heard. No murmurs gallops or rubs. LUNGS: Clear to auscultation bilaterally. No wheeze, rhonchi or rales. No use of accessory muscles on inspiration or expiration. ABDOMEN: Soft, nontender. Nondistended. Bowel sounds heard in all 4 quadrants. No organomegaly or masses. Negative rebound, negative guarding. EXTREMITIES: No edema, pulses are equal bilaterally. No cyanosis or clubbing. Right whcbe-gcy-zdri amputation. Left foot and Multi-Podus boot, NEUROLOGY: Mood and affect appear appropriate. Cranial nerves II through XII grossly intact. Moving all extremities, speech is clear Procedures None Urinary Catheter: No Vascular Central Line Catheter: No A/P Assessment and Plan 60-year-old male with admitted 10/14 with acute cortical infarct. Patient remains with significant cognitive deficit. Bilateral cerebrovascular accident, with persistent cognitive defect -MRI showed acute cortical infarct of the right cerebral peduncle to the pelvis , left thalamus punctate area of infarct -Neurology last seen patient on 11/13/15, recommended long-term anticoagulation -Continue with Statin. -Continue Coumadin 5 mg daily and monitor INR/PT keep INR between 2 and 3, pharmacy consult for dosing. INR 2.7, -Reconsulted PT/OT, patient will require intermittent therapy while he remains in the hospital so he does not decompensate -Out of bed with nursing only. Patient was counseled to not get out of bed on his own. Fall risk due to cognitive deficit -[place] bed, vest restraints while in chair -Psychiatry reconsulted for evaluation and appreciate recommendations on patient 's cognition, agitation -Seroquel 100 mg daily and 150 mg at bedtime Hypertension: Systolic blood pressure 102-133, stable Amlodipine 10 mg daily Lisinopril 5 mg daily carvedilol 25 bid, Imdur 60 daily Ischemic Cardiomyopathy/chronic systolic CHF LVEF 35% on echo 03/2015. Denies shortness of breath. Compensated. -Continue Coreg, Imdur, enalapril. -Could consider AICD if patient is able to consent, however patient is currently unable to consent -Fluid and sodium restrictions, follow volume status. Chronic kidney disease stage 3/4. Stable -Avoid nephrotoxins. -Monitor BMP intermittently Anemia with iron deficiency, hemoglobin stable since admission Iron studies indicate iron 45, TIBC 232, ferritin 345 Continue ferrous sulfate 325 mg daily Continue monitor CBC intermittently Bacteremia with Staphylococcus hemolyticus, from wounds. Resolved -Follow blood cultures have been negative since 10/16/15 -Status post Keflex and Cipro management -Infectious disease managed patient Diabetic mellitus - Glucose was well controlled. All insulin discontinued. -accu-checks discontinued as patient's blood sugar well controlled and Hgb A1c 6.9. -continue diet control Peripheral arterial disease-stable. -Continue anticoagulation Intermittent agitation- workup done to rule out infectious source causing change in mentation, improved -Continue Seroquel 100 mg in the morning and 150 mg at night -Psychiatry reevaluated the patient on 02/17 Constipation, patient having bowel movement every 2-3 days -Abdominal x-ray 02/16 indicates moderate amount of stool in the colon on the left side. -Milk of magnesia as needed. -MiraLAX, lactulose, Haydee-Colace daily, lactulose, MiraLAX -Dulcolax as needed DVT prophylaxis - patient on Coumadin Discharge Planning Patient is medically stable and has been cleared for discharge from medical perspective. Case management arranging discharge planning to retirement facility once a finding facility that'll accept the patient/insurance. Has accepting SNF in order to get Medicaid, and must have someone to sign him in. Case management following. 04/06/16 PATIENT HAS SIGNIFICANT PERSISTENT COGNITIVE DEFICIT A RESULT OF ACUTE CORTICAL INFARCT. PATIENT NOT ABLE TO SIGN HIMSELF INTO A FACILITY AND WILL NEED RESPONSIBLE [employer] TO DO SO WHEN A FACILITY IS FOUND THAT WILL ACCEPT HIM. IN THE MEANTIME PATIENT IS WORKING WITH PHYSICAL THERAPY WITH EXERCISES AND STANDING RIGHT AMPUTATION AND LEFT LEG WEIGHT BEARING TOLERATED. NO NEW CHANGES IN FINDING FACILITY TO ACCEPT PATIENT. Truman Fulton Apr 07, 2016 08:33
[2016-04-07] MEDS: CARVEDILOL 12.5 MG TAB PO SCH ×2 (08:36→19:29)
[2016-04-07] MEDS: FERROUS SULFATE 325 MG (65 MG ELEMENTAL IRON) TAB PO SCH (08:36)
[2016-04-07] MEDS: POLYETHYLENE GLYCOL 17 GM PKG PO SCH (08:37)
[2016-04-07] MEDS: ATORVASTATIN 40 MG TAB PO SCH (08:37)
[2016-04-07] MEDS: QUEtiapine FUMARATE 100 MG TAB PO SCH ×2 (08:37→19:28)
[2016-04-07] MEDS: ENALAPRIL MALEATE 5 MG TAB PO SCH (08:37)
[2016-04-07] MEDS: LACTULOSE SYRUP 20 GM/30 ML CUP PO SCH (08:37)
[2016-04-07] MEDS: DOCUSATE SODIUM 50 MG/SENNA 8.6 MG TAB PO SCH ×2 (08:37→19:28)
[2016-04-07] MEDS: EUCERIN CREAM 120 GM JAR TOPICAL SCH ×2 (09:00→19:32)
[2016-04-07] MEDS: ISOSORBIDE MONONITRATE 60 MG TAB PO SCH (19:28)
[2016-04-07] MEDS: WARFARIN SOD 5 MG TAB PO SCH (19:29)
[2016-04-07 20:00] VITALS: BP 89/59; PULSE 84; RESP 16; TEMP 98.5; O2SAT 98
[2016-04-08 07:15] VITALS: BP 131/84; PULSE 78; RESP 20; TEMP 98.3; O2SAT 96
[2016-04-08] MEDS: FERROUS SULFATE 325 MG (65 MG ELEMENTAL IRON) TAB PO SCH (07:45)
[2016-04-08] MEDS: POLYETHYLENE GLYCOL 17 GM PKG PO SCH (07:45)
[2016-04-08] MEDS: QUEtiapine FUMARATE 100 MG TAB PO SCH ×2 (07:45→20:35)
[2016-04-08] MEDS: ENALAPRIL MALEATE 5 MG TAB PO SCH (07:45)
[2016-04-08] MEDS: DOCUSATE SODIUM 50 MG/SENNA 8.6 MG TAB PO SCH ×2 (07:45→20:40)
[2016-04-08] MEDS: LACTULOSE SYRUP 20 GM/30 ML CUP PO SCH (07:45)
[2016-04-08] MEDS: ATORVASTATIN 40 MG TAB PO SCH (07:46)
[2016-04-08] MEDS: CARVEDILOL 12.5 MG TAB PO SCH ×2 (07:57→20:35)
[2016-04-08] MEDS: EUCERIN CREAM 120 GM JAR TOPICAL SCH ×2 (08:02→20:40)
--- NOTE | 2016-04-08 08:07 | HHI.PR ---
Subjective Remarks Patient seen and examined today. Patient is much more alert. Patient states that he does not want to be in the [place] bed anymore. Objective Vitals Vital Signs Date Time Temp Pulse Resp B/P Pulse Ox O2 Delivery O2 Flow Rate FiO2 04/07/16 20:00 98.5 84 16 89/59 98 I/O 04/07/16 04/07/16 04/07/16 04/08/16 04/08/16 04/08/16 06:59 14:59 22:59 06:59 14:59 22:59 Intake Total 0 ml 1000 ml 0 ml 0 ml Balance 0 ml 1000 ml 0 ml 0 ml Intake Oral 0 ml 1000 ml 0 ml IV Total 0 ml # Voids 0 5 0 0 # Bowel Movements 0 1 0 0 Objective Remarks GENERAL: Well-developed, well-nourished, in no acute distress. Alert and orientated to person HEENT: Head is normocephalic without any lesions or masses noted. Facial features are symmetric. Extraocular muscles are intact. Conjunctivae were clear. NECK: Supple without any masses. Trachea midline no deviation. No JVD, CARDIAC: Regular rhythm, regular rate. S1/S2 are heard. No murmurs gallops or rubs. LUNGS: Clear to auscultation bilaterally. No wheeze, rhonchi or rales. No use of accessory muscles on inspiration or expiration. ABDOMEN: Soft, nontender. Nondistended. Bowel sounds heard in all 4 quadrants. No organomegaly or masses. Negative rebound, negative guarding. EXTREMITIES: No edema, pulses are equal bilaterally. No cyanosis or clubbing. Right lsgyz-slq-nwkf amputation. Left foot and Multi-Podus boot, NEUROLOGY: Mood and affect appear appropriate. Cranial nerves II through XII grossly intact. Moving all extremities, speech is clear Procedures None Urinary Catheter: No Vascular Central Line Catheter: No A/P Assessment and Plan 60-year-old male with admitted 10/14 with acute cortical infarct. Patient remains with significant cognitive deficit. Bilateral cerebrovascular accident, with persistent cognitive defect -MRI showed acute cortical infarct of the right cerebral peduncle to the pelvis , left thalamus punctate area of infarct -Neurology last seen patient on 11/13/15, recommended long-term anticoagulation -Continue with Statin. -Continue Coumadin 5 mg daily and monitor INR/PT keep INR between 2 and 3, pharmacy consult for dosing. INR 2.7, -Reconsulted PT/OT, patient will require intermittent therapy while he remains in the hospital so he does not decompensate -Out of bed with nursing only. Patient was counseled to not get out of bed on his own. Fall risk due to cognitive deficit -[place] bed, vest restraints while in chair, will discuss with nursing staff to possibly get him out of the [place] bed at this time and see how he does. -Psychiatry reconsulted for evaluation and appreciate recommendations on patient 's cognition, agitation -Seroquel 100 mg daily and 150 mg at bedtime Hypertension: Systolic blood pressure 102-133, stable Amlodipine 10 mg daily Lisinopril 5 mg daily carvedilol 25 bid, Imdur 60 daily Ischemic Cardiomyopathy/chronic systolic CHF LVEF 35% on echo 03/2015. Denies shortness of breath. Compensated. -Continue Coreg, Imdur, enalapril. -Could consider AICD if patient is able to consent, however patient is currently unable to consent -Fluid and sodium restrictions, follow volume status. Chronic kidney disease stage 3/4. Stable -Avoid nephrotoxins. -Monitor BMP intermittently Anemia with iron deficiency, hemoglobin stable since admission Iron studies indicate iron 45, TIBC 232, ferritin 345 Continue ferrous sulfate 325 mg daily Continue monitor CBC intermittently Bacteremia with Staphylococcus hemolyticus, from wounds. Resolved -Follow blood cultures have been negative since 10/16/15 -Status post Keflex and Cipro management -Infectious disease managed patient Diabetic mellitus - Glucose was well controlled. All insulin discontinued. -accu-checks discontinued as patient's blood sugar well controlled and Hgb A1c 6.9. -continue diet control Peripheral arterial disease-stable. -Continue anticoagulation Intermittent agitation- workup done to rule out infectious source causing change in mentation, improved -Continue Seroquel 100 mg in the morning and 150 mg at night -Psychiatry reevaluated the patient on 02/17 Constipation, patient having bowel movement every 2-3 days -Abdominal x-ray 02/16 indicates moderate amount of stool in the colon on the left side. -Milk of magnesia as needed. -MiraLAX, lactulose, Haydee-Colace daily, lactulose, MiraLAX -Dulcolax as needed DVT prophylaxis - patient on Coumadin Discharge Planning Patient is medically stable and has been cleared for discharge from medical perspective. Case management arranging discharge planning to residential facility once a finding facility that'll accept the patient/insurance. Has accepting SNF in order to get Medicaid, and must have someone to sign him in. Case management following. 04/06/16 PATIENT HAS SIGNIFICANT PERSISTENT COGNITIVE DEFICIT A RESULT OF ACUTE CORTICAL INFARCT. PATIENT NOT ABLE TO SIGN HIMSELF INTO A FACILITY AND WILL NEED RESPONSIBLE LIBERTARIAN TO DO SO WHEN A FACILITY IS FOUND THAT WILL ACCEPT HIM. IN THE MEANTIME PATIENT IS WORKING WITH PHYSICAL THERAPY WITH EXERCISES AND STANDING RIGHT AMPUTATION AND LEFT LEG WEIGHT BEARING TOLERATED. NO NEW CHANGES IN FINDING FACILITY TO ACCEPT PATIENT. Truman Fulton Apr 08, 2016 08:07
[2016-04-08 09:46] LABS: INTERNATIONAL NORMALIZED RATIO 2.5 RATIO; PROTHROMBIN TIME - PATIENT 28.3 SEC (9.8-11.6)
[2016-04-08 19:58] VITALS: BP 128/85; PULSE 87; RESP 16; TEMP 99.1; O2SAT 98
[2016-04-08] MEDS: WARFARIN SOD 5 MG TAB PO SCH (20:34)
[2016-04-08] MEDS: ISOSORBIDE MONONITRATE 60 MG TAB PO SCH (20:35)
[2016-04-08] MEDS: ACETAMINOPHEN 325 MG TAB PO PRN (20:39)
[2016-04-09 07:05] LABS: INTERNATIONAL NORMALIZED RATIO 2.1 RATIO; PROTHROMBIN TIME - PATIENT 24.2 SEC (9.8-11.6)
[2016-04-09 07:15] VITALS: BP 105/66; PULSE 76; RESP 20; TEMP 97.7; O2SAT 97
--- NOTE | 2016-04-09 08:28 | HHI.PR ---
Subjective Remarks Patient examined today. Patient denies any new complaints. No change in clinical status Objective Vitals Vital Signs Date Time Temp Pulse Resp B/P Pulse Ox O2 Delivery O2 Flow Rate FiO2 04/08/16 21:54 20 04/08/16 19:58 99.1 87 16 128/85 98 I/O 04/08/16 04/08/16 04/08/16 04/09/16 04/09/16 04/09/16 07:00 15:00 23:00 07:00 15:00 23:00 Intake Total 0 ml 240 ml 0 ml Balance 0 ml 240 ml 0 ml Intake Oral 0 ml 240 ml 0 ml Oral Supplement 0 ml IV Total 0 ml # Breastfeedings 0 # Voids 0 2 1 # Bowel Movements 0 0 Objective Remarks GENERAL: Well-developed, well-nourished, in no acute distress. Alert and orientated to person HEENT: Head is normocephalic without any lesions or masses noted. Facial features are symmetric. Extraocular muscles are intact. Conjunctivae were clear. NECK: Supple without any masses. Trachea midline no deviation. No JVD, CARDIAC: Regular rhythm, regular rate. S1/S2 are heard. No murmurs gallops or rubs. LUNGS: Clear to auscultation bilaterally. No wheeze, rhonchi or rales. No use of accessory muscles on inspiration or expiration. ABDOMEN: Soft, nontender. Nondistended. Bowel sounds heard in all 4 quadrants. No organomegaly or masses. Negative rebound, negative guarding. EXTREMITIES: No edema, pulses are equal bilaterally. No cyanosis or clubbing. Right ncpqa-osx-pzef amputation. Left foot and Multi-Podus boot, NEUROLOGY: Mood and affect appear appropriate. Cranial nerves II through XII grossly intact. Moving all extremities, speech is clear Procedures None Urinary Catheter: No Vascular Central Line Catheter: No A/P Assessment and Plan 60-year-old male with admitted 10/14 with acute cortical infarct. Patient remains with significant cognitive deficit. Bilateral cerebrovascular accident, with Intermittent and persistent cognitive defect -MRI showed acute cortical infarct of the right cerebral peduncle to the pelvis , left thalamus punctate area of infarct -Neurology last seen patient on 11/13/15, recommended long-term anticoagulation -Continue with Statin. -Continue Coumadin 5 mg daily and monitor INR/PT keep INR between 2 and 3, pharmacy consult for dosing. INR 2.1, -Reconsulted PT/OT, patient will require intermittent therapy while he remains in the hospital so he does not decompensate -Out of bed with nursing only. Patient was counseled to not get out of bed on his own. Fall risk due to cognitive deficit -[place] bed, vest restraints while in chair, will discuss with nursing staff to possibly get him out of the [place] bed at this time and see how he does. -Psychiatry reconsulted 02/17 for evaluation and appreciate recommendations on patient's cognition, agitation -Seroquel 100 mg daily and 150 mg at bedtime Hypertension: Systolic blood pressure, mildly labile Amlodipine 10 mg daily Lisinopril 5 mg daily carvedilol 25 bid, Imdur 60 daily Ischemic Cardiomyopathy/chronic systolic CHF LVEF 35% on echo 03/2015. Denies shortness of breath. Compensated. -Continue Coreg, Imdur, enalapril. -Could consider AICD if patient is able to consent, however patient is currently unable to consent -Fluid and sodium restrictions, follow volume status. Chronic kidney disease stage 3/4. Stable -Avoid nephrotoxins. -Monitor BMP intermittently Anemia with iron deficiency, hemoglobin stable since admission Iron studies indicate iron 45, TIBC 232, ferritin 345 Continue ferrous sulfate 325 mg daily Continue monitor CBC intermittently Diabetic mellitus - Glucose was well controlled. All insulin discontinued. -accu-checks discontinued as patient's blood sugar well controlled and Hgb A1c 6.9. -continue diet control Peripheral arterial disease-stable. -Continue anticoagulation Constipation, patient having bowel movement every 2-3 days -Abdominal x-ray 02/16 indicates moderate amount of stool in the colon on the left side. -Milk of magnesia as needed. -MiraLAX, lactulose, Haydee-Colace daily, lactulose, MiraLAX -Dulcolax as needed DVT prophylaxis - patient on Coumadin Discharge Planning Patient is medically stable and has been cleared for discharge from medical perspective. Case management arranging discharge planning to long-term facility once a finding facility that'll accept the patient/insurance. Has accepting SNF in order to get Medicaid, and must have someone to sign him in. Case management following. 04/06/16 PATIENT HAS SIGNIFICANT PERSISTENT COGNITIVE DEFICIT A RESULT OF ACUTE CORTICAL INFARCT. PATIENT NOT ABLE TO SIGN HIMSELF INTO A FACILITY AND WILL NEED RESPONSIBLE LIBERTARIAN TO DO SO WHEN A FACILITY IS FOUND THAT WILL ACCEPT HIM. IN THE MEANTIME PATIENT IS WORKING WITH PHYSICAL THERAPY WITH EXERCISES AND STANDING RIGHT AMPUTATION AND LEFT LEG WEIGHT BEARING TOLERATED. NO NEW CHANGES IN FINDING FACILITY TO ACCEPT PATIENT. Truman Fulton Apr 09, 2016 08:27
[2016-04-09] MEDS: POLYETHYLENE GLYCOL 17 GM PKG PO SCH (10:17)
[2016-04-09] MEDS: QUEtiapine FUMARATE 100 MG TAB PO SCH ×2 (10:17→20:50)
[2016-04-09] MEDS: FERROUS SULFATE 325 MG (65 MG ELEMENTAL IRON) TAB PO SCH (10:17)
[2016-04-09] MEDS: DOCUSATE SODIUM 50 MG/SENNA 8.6 MG TAB PO SCH ×2 (10:17→20:49)
[2016-04-09] MEDS: CARVEDILOL 12.5 MG TAB PO SCH ×2 (10:17→20:49)
[2016-04-09] MEDS: ENALAPRIL MALEATE 5 MG TAB PO SCH (10:17)
[2016-04-09] MEDS: LACTULOSE SYRUP 20 GM/30 ML CUP PO SCH (10:17)
[2016-04-09] MEDS: ATORVASTATIN 40 MG TAB PO SCH (10:17)
[2016-04-09] MEDS: EUCERIN CREAM 120 GM JAR TOPICAL SCH ×2 (10:22→20:51)
[2016-04-09] MEDS: ISOSORBIDE MONONITRATE 60 MG TAB PO SCH (20:49)
[2016-04-09] MEDS: WARFARIN SOD 6 MG TAB PO SCH (20:50)
[2016-04-09 21:46] VITALS: BP 141/87; PULSE 81; RESP 18; TEMP 98.9; O2SAT 97
[2016-04-10 07:23] LABS: INTERNATIONAL NORMALIZED RATIO 1.9 RATIO; PROTHROMBIN TIME - PATIENT 21.1 SEC (9.8-11.6)
[2016-04-10 08:00] VITALS: BP 129/74; PULSE 72; RESP 18; TEMP 95.7; O2SAT 97
[2016-04-10] MEDS: POLYETHYLENE GLYCOL 17 GM PKG PO SCH (08:15)
[2016-04-10] MEDS: EUCERIN CREAM 120 GM JAR TOPICAL SCH ×2 (08:16→20:30)
[2016-04-10] MEDS: LACTULOSE SYRUP 20 GM/30 ML CUP PO SCH (08:17)
[2016-04-10] MEDS: DOCUSATE SODIUM 50 MG/SENNA 8.6 MG TAB PO SCH ×2 (08:17→20:28)
[2016-04-10] MEDS: ATORVASTATIN 40 MG TAB PO SCH (08:17)
[2016-04-10] MEDS: CARVEDILOL 12.5 MG TAB PO SCH ×2 (08:17→20:33)
[2016-04-10] MEDS: FERROUS SULFATE 325 MG (65 MG ELEMENTAL IRON) TAB PO SCH (08:17)
[2016-04-10] MEDS: ENALAPRIL MALEATE 5 MG TAB PO SCH (08:18)
[2016-04-10] MEDS: QUEtiapine FUMARATE 100 MG TAB PO SCH ×2 (08:18→20:28)
--- NOTE | 2016-04-10 09:48 | HHI.PR ---
Subjective Remarks Patient seen and examined today. Patient denies any new complaints. No change in clinical status. Objective Vitals Vital Signs Date Time Temp Pulse Resp B/P Pulse Ox O2 Delivery O2 Flow Rate FiO2 04/10/16 08:00 95.7 72 18 129/74 97 04/09/16 21:46 98.9 81 18 141/87 97 I/O 04/09/16 04/09/16 04/09/16 04/10/16 04/10/16 04/10/16 07:00 15:00 23:00 07:00 15:00 23:00 Intake Total 0 ml 800 ml 10 ml Output Total 400 ml Balance 0 ml 400 ml 10 ml Intake Oral 0 ml 800 ml 10 ml Oral Supplement 0 ml IV Total 0 ml Output Urine Total 400 ml # Breastfeedings 0 # Voids 1 2 # Bowel Movements 0 0 Objective Remarks GENERAL: Well-developed, well-nourished, in no acute distress. Alert and orientated to person HEENT: Head is normocephalic without any lesions or masses noted. Facial features are symmetric. Extraocular muscles are intact. Conjunctivae were clear. NECK: Supple without any masses. Trachea midline no deviation. No JVD, CARDIAC: Regular rhythm, regular rate. S1/S2 are heard. No murmurs gallops or rubs. LUNGS: Clear to auscultation bilaterally. No wheeze, rhonchi or rales. No use of accessory muscles on inspiration or expiration. ABDOMEN: Soft, nontender. Nondistended. Bowel sounds heard in all 4 quadrants. No organomegaly or masses. Negative rebound, negative guarding. EXTREMITIES: No edema, pulses are equal bilaterally. No cyanosis or clubbing. Right snaqe-qbx-liki amputation. Left foot and Multi-Podus boot, NEUROLOGY: Mood and affect appear appropriate. Cranial nerves II through XII grossly intact. Moving all extremities, speech is clear Procedures None Urinary Catheter: No Vascular Central Line Catheter: No A/P Assessment and Plan 60-year-old male with admitted 10/14 with acute cortical infarct. Patient remains with significant cognitive deficit. Bilateral cerebrovascular accident, with Intermittent and persistent cognitive defect -MRI showed acute cortical infarct of the right cerebral peduncle to the pelvis , left thalamus punctate area of infarct -Neurology last seen patient on 11/13/15, recommended long-term anticoagulation -Continue with Statin. -Continue Coumadin 5 mg daily and monitor INR/PT keep INR between 2 and 3, pharmacy consult for dosing. INR 1.9, -Reconsulted PT/OT, patient will require intermittent therapy while he remains in the hospital so he does not decompensate -Out of bed with nursing only. Patient was counseled to not get out of bed on his own. Fall risk due to cognitive deficit -[place] bed, vest restraints while in chair, will discuss with nursing staff to possibly get him out of the [place] bed at this time and see how he does. -Psychiatry reconsulted 02/17 for evaluation and appreciate recommendations on patient's cognition, agitation -Seroquel 100 mg daily and 150 mg at bedtime Hypertension: mildly labile Amlodipine 10 mg daily Lisinopril 5 mg daily carvedilol 25 bid, Imdur 60 daily Ischemic Cardiomyopathy/chronic systolic CHF LVEF 35% on echo 03/2015. Denies shortness of breath. Compensated. -Continue Coreg, Imdur, enalapril. -Could consider AICD if patient is able to consent, however patient is currently unable to consent -Fluid and sodium restrictions, follow volume status. Chronic kidney disease stage 3/4. Stable -Avoid nephrotoxins. -Monitor BMP intermittently Anemia with iron deficiency, hemoglobin stable since admission Iron studies indicate iron 45, TIBC 232, ferritin 345 Continue ferrous sulfate 325 mg daily Continue monitor CBC intermittently Diabetic mellitus - Glucose was well controlled. All insulin discontinued. -accu-checks discontinued as patient's blood sugar well controlled and Hgb A1c 6.9. -continue diet control Peripheral arterial disease-stable. -Continue anticoagulation Constipation, patient having bowel movement every 2-3 days -Abdominal x-ray 02/16 indicates moderate amount of stool in the colon on the left side. -Milk of magnesia as needed. -MiraLAX, lactulose, Haydee-Colace daily, lactulose, MiraLAX -Dulcolax as needed DVT prophylaxis - patient on Coumadin Discharge Planning Patient is medically stable and has been cleared for discharge from medical perspective. Case management arranging discharge planning to detention facility once a finding facility that'll accept the patient/insurance. Has accepting SNF in order to get Medicaid, and must have someone to sign him in. Case management following. 04/06/16 PATIENT HAS SIGNIFICANT PERSISTENT COGNITIVE DEFICIT A RESULT OF ACUTE CORTICAL INFARCT. PATIENT NOT ABLE TO SIGN HIMSELF INTO A FACILITY AND WILL NEED RESPONSIBLE [employer] TO DO SO WHEN A FACILITY IS FOUND THAT WILL ACCEPT HIM. IN THE MEANTIME PATIENT IS WORKING WITH PHYSICAL THERAPY WITH EXERCISES AND STANDING RIGHT AMPUTATION AND LEFT LEG WEIGHT BEARING TOLERATED. NO NEW CHANGES IN FINDING FACILITY TO ACCEPT PATIENT. Truman Fulton Apr 10, 2016 09:48
[2016-04-10] MEDS: WARFARIN SOD 6 MG TAB PO SCH (20:27)
[2016-04-10] MEDS: ISOSORBIDE MONONITRATE 60 MG TAB PO SCH (20:33)
[2016-04-10] MEDS ORDERED: WARFARIN SOD 1 MG TAB PO ONE (21:00)
[2016-04-10 21:39] VITALS: BP 100/63; PULSE 78; RESP 16; TEMP 97.8; O2SAT 98
[2016-04-11 08:00] VITALS: BP 119/76; PULSE 77; RESP 20; TEMP 97.8; O2SAT 99
[2016-04-11 08:07] LABS: INTERNATIONAL NORMALIZED RATIO 1.7 RATIO; PROTHROMBIN TIME - PATIENT 19.7 SEC (9.8-11.6)
[2016-04-11] MEDS: DOCUSATE SODIUM 50 MG/SENNA 8.6 MG TAB PO SCH ×2 (08:56→21:00)
[2016-04-11] MEDS: QUEtiapine FUMARATE 100 MG TAB PO SCH ×2 (08:56→21:08)
[2016-04-11] MEDS: ATORVASTATIN 40 MG TAB PO SCH (08:57)
[2016-04-11] MEDS: FERROUS SULFATE 325 MG (65 MG ELEMENTAL IRON) TAB PO SCH (08:57)
[2016-04-11] MEDS: CARVEDILOL 12.5 MG TAB PO SCH ×2 (08:57→21:08)
[2016-04-11] MEDS: POLYETHYLENE GLYCOL 17 GM PKG PO SCH (08:57)
[2016-04-11] MEDS: LACTULOSE SYRUP 20 GM/30 ML CUP PO SCH (08:57)
[2016-04-11] MEDS: EUCERIN CREAM 120 GM JAR TOPICAL SCH ×2 (08:58→21:00)
--- NOTE | 2016-04-11 09:46 | HHI.PR ---
Subjective Remarks Patient seen and examined today. Patient denies any new complaints. No change in clinical status. Objective Vitals Vital Signs Date Time Temp Pulse Resp B/P Pulse Ox O2 Delivery O2 Flow Rate FiO2 04/11/16 08:00 97.8 77 20 119/76 99 04/10/16 21:39 97.8 78 16 100/63 98 I/O 04/10/16 04/10/16 04/10/16 04/11/16 04/11/16 04/11/16 07:00 15:00 23:00 07:00 15:00 23:00 Intake Total 10 ml 600 ml Balance 10 ml 600 ml Intake Oral 10 ml 600 ml # Voids 1 1 2 # Bowel Movements 0 Objective Remarks GENERAL: Well-developed, well-nourished, in no acute distress. Alert and orientated to person HEENT: Head is normocephalic without any lesions or masses noted. Facial features are symmetric. Extraocular muscles are intact. Conjunctivae were clear. NECK: Supple without any masses. Trachea midline no deviation. No JVD, CARDIAC: Regular rhythm, regular rate. S1/S2 are heard. No murmurs gallops or rubs. LUNGS: Clear to auscultation bilaterally. No wheeze, rhonchi or rales. No use of accessory muscles on inspiration or expiration. ABDOMEN: Soft, nontender. Nondistended. Bowel sounds heard in all 4 quadrants. No organomegaly or masses. Negative rebound, negative guarding. EXTREMITIES: No edema, pulses are equal bilaterally. No cyanosis or clubbing. Right dekvw-laq-kdsk amputation. Left foot and Multi-Podus boot, NEUROLOGY: Mood and affect appear appropriate. Cranial nerves II through XII grossly intact. Moving all extremities, speech is clear Procedures None Urinary Catheter: No Vascular Central Line Catheter: No A/P Assessment and Plan 60-year-old male with admitted 10/14 with acute cortical infarct. Patient remains with significant cognitive deficit. Bilateral cerebrovascular accident, with Intermittent and persistent cognitive defect -MRI showed acute cortical infarct of the right cerebral peduncle to the pelvis , left thalamus punctate area of infarct -Neurology last seen patient on 11/13/15, recommended long-term anticoagulation -Continue with Statin. -Continue Coumadin 5 mg daily and monitor INR/PT keep INR between 2 and 3, pharmacy consult for dosing. INR 1.7, -Reconsulted PT/OT, patient will require intermittent therapy while he remains in the hospital so he does not decompensate -Out of bed with nursing only. Patient was counseled to not get out of bed on his own. Fall risk due to cognitive deficit -[facility] bed, vest restraints while in chair, will discuss with nursing staff to possibly get him out of the [facility] bed at this time and see how he does. -Psychiatry reconsulted 02/17 for evaluation and appreciate recommendations on patient's cognition, agitation -Seroquel 100 mg daily and 150 mg at bedtime Hypertension: mildly labile Amlodipine 10 mg daily Lisinopril 5 mg daily carvedilol 25 bid, Imdur 60 daily Ischemic Cardiomyopathy/chronic systolic CHF LVEF 35% on echo 03/2015. Denies shortness of breath. Compensated. -Continue Coreg, Imdur, enalapril. -Could consider AICD if patient is able to consent, however patient is currently unable to consent -Fluid and sodium restrictions, follow volume status. Chronic kidney disease stage 3/4. Stable -Avoid nephrotoxins. -Monitor BMP intermittently Anemia with iron deficiency, hemoglobin stable since admission Iron studies indicate iron 45, TIBC 232, ferritin 345 Continue ferrous sulfate 325 mg daily Continue monitor CBC intermittently Diabetic mellitus - Glucose was well controlled. All insulin discontinued. -accu-checks discontinued as patient's blood sugar well controlled and Hgb A1c 6.9. -continue diet control Peripheral arterial disease-stable. -Continue anticoagulation Constipation, patient having bowel movement every 2-3 days -Abdominal x-ray 02/16 indicates moderate amount of stool in the colon on the left side. -Milk of magnesia as needed. -MiraLAX, lactulose, Haydee-Colace daily, lactulose, MiraLAX -Dulcolax as needed DVT prophylaxis - patient on Coumadin Discharge Planning Patient is medically stable and has been cleared for discharge from medical perspective. Case management arranging discharge planning to longterm facility once a finding facility that'll accept the patient/insurance. Has accepting SNF in order to get Medicaid, and must have someone to sign him in. Case management following. 04/06/16 PATIENT HAS SIGNIFICANT PERSISTENT COGNITIVE DEFICIT A RESULT OF ACUTE CORTICAL INFARCT. PATIENT NOT ABLE TO SIGN HIMSELF INTO A FACILITY AND WILL NEED RESPONSIBLE DEMOCRAT TO DO SO WHEN A FACILITY IS FOUND THAT WILL ACCEPT HIM. IN THE MEANTIME PATIENT IS WORKING WITH PHYSICAL THERAPY WITH EXERCISES AND STANDING RIGHT AMPUTATION AND LEFT LEG WEIGHT BEARING TOLERATED. NO NEW CHANGES IN FINDING FACILITY TO ACCEPT PATIENT. Truman Fulton Apr 11, 2016 09:46
[2016-04-11 12:02] VITALS: BP 121/81; PULSE 78
[2016-04-11] MEDS: ENALAPRIL MALEATE 5 MG TAB PO SCH (12:02)
[2016-04-11 20:00] VITALS: BP 121/80; PULSE 78; RESP 14; TEMP 97.6; O2SAT 98
[2016-04-11] MEDS ORDERED: WARFARIN SOD 1 MG TAB PO ONE (21:00)
[2016-04-11] MEDS: WARFARIN SOD 6 MG TAB PO SCH (21:07)
[2016-04-11] MEDS: ISOSORBIDE MONONITRATE 60 MG TAB PO SCH (21:08)
[2016-04-12 08:00] VITALS: BP 128/76; PULSE 79; RESP 17; TEMP 97.6; O2SAT 95
[2016-04-12 08:07] LABS: INTERNATIONAL NORMALIZED RATIO 1.5 RATIO; PROTHROMBIN TIME - PATIENT 16.8 SEC (9.8-11.6)
[2016-04-12] MEDS: FERROUS SULFATE 325 MG (65 MG ELEMENTAL IRON) TAB PO SCH (08:30)
[2016-04-12] MEDS: ATORVASTATIN 40 MG TAB PO SCH (08:30)
[2016-04-12] MEDS: POLYETHYLENE GLYCOL 17 GM PKG PO SCH (08:30)
[2016-04-12] MEDS: CARVEDILOL 12.5 MG TAB PO SCH ×2 (08:30→20:18)
[2016-04-12] MEDS: QUEtiapine FUMARATE 100 MG TAB PO SCH ×2 (08:30→20:19)
[2016-04-12] MEDS: DOCUSATE SODIUM 50 MG/SENNA 8.6 MG TAB PO SCH ×2 (08:30→20:18)
[2016-04-12] MEDS: ENALAPRIL MALEATE 5 MG TAB PO SCH (08:30)
[2016-04-12] MEDS: LACTULOSE SYRUP 20 GM/30 ML CUP PO SCH (08:31)
[2016-04-12] MEDS: EUCERIN CREAM 120 GM JAR TOPICAL SCH ×2 (08:31→20:19)
--- NOTE | 2016-04-12 15:19 | HHI.PR ---
Subjective Remarks Follow-up for persistent cognitive deficit. No acute complaints. Patient states he is "alright". Objective Vitals Vital Signs Date Time Temp Pulse Resp B/P Pulse Ox O2 Delivery O2 Flow Rate FiO2 04/12/16 08:00 97.6 79 17 128/76 95 04/11/16 20:00 97.6 78 14 121/80 98 I/O 04/11/16 04/11/16 04/11/16 04/12/16 04/12/16 04/12/16 07:00 15:00 23:00 07:00 15:00 23:00 Intake Total 930 ml 240 ml 60 ml 420 ml Balance 930 ml 240 ml 60 ml 420 ml Intake Oral 930 ml 240 ml 60 ml 420 ml IV Total 0 ml # Voids 2 2 3 3 # Bowel Movements 1 Objective Remarks GENERAL: Well-nourished, well-developed male in no apparent distress sitting in recliner. SKIN: Warm and dry. [place] healed skin over L tibia. Flaky skin over face. CARDIOVASCULAR: Regular rate and rhythm. RESPIRATORY: Limited anterior exam. No accessory muscle use. Clear to auscultation. GASTROINTESTINAL: Abdomen soft, non-tender, non-distended. MUSCULOSKELETAL: Right BKA. No lower extremity edema. NEUROLOGICAL: Awake and alert. Procedures None Urinary Catheter: No Vascular Central Line Catheter: No A/P Problem List: (1) Cellulitis ICD Code: L03.90 Status: Resolved (2) Ischemic cardiomyopathy ICD Code: I25.5 Status: Chronic (3) Diabetes mellitus type 2 in obese ICD Code: E11.9 Status: Chronic (4) S/P BKA (below knee amputation) unilateral ICD Code: Z89.519 Status: Chronic (5) Acute metabolic encephalopathy ICD Code: G93.41 Status: Resolved (6) Bacteremia ICD Code: R78.81 Status: Resolved (7) Chronic systolic (congestive) heart failure ICD Code: I50.22 Status: Chronic (8) Venous stasis ulcer of left lower extremity ICD Code: I83.029 Status: Chronic (9) CVA (cerebral vascular accident) ICD Code: I63.9 Status: Chronic (10) Seborrheic dermatitis ICD Code: L21.9 Status: Chronic (11) Anemia ICD Code: D64.9 Status: Chronic (12) HTN (hypertension) ICD Code: I10 Status: Acute (13) UTI (urinary tract infection) ICD Code: N39.0 Status: Resolved Assessment and Plan 60-year-old male with admitted 10/14 with acute cortical infarct. Patient remains with significant cognitive deficit. Bilateral cerebrovascular accident, with Intermittent and persistent cognitive defect -MRI showed acute cortical infarct of the right cerebral peduncle to the pelvis , left thalamus punctate area of infarct -Neurology last seen patient on 11/13/15, recommended long-term anticoagulation -Continue with Statin. -Continue Coumadin 5 mg daily and monitor INR/PT keep INR between 2 and 3, pharmacy consult for dosing. INR 1.5. -Reconsulted PT/OT, patient will require intermittent therapy while he remains in the hospital so he does not decompensate -Out of bed with nursing only. Patient was counseled to not get out of bed on his own. Fall risk due to cognitive deficit -[facility] bed, vest restraints while in chair, will discuss with nursing staff to possibly get him out of the [facility] bed at this time and see how he does. -Psychiatry reconsulted 02/17 for evaluation and appreciate recommendations on patient's cognition, agitation, and medication non-compliance -Seroquel 100 mg daily and 150 mg at bedtime Hypertension: mildly labile Amlodipine 10 mg daily Lisinopril 5 mg daily carvedilol 25 bid, Imdur 60 daily Ischemic Cardiomyopathy/chronic systolic CHF LVEF 35% on echo 03/2015. Denies shortness of breath. Compensated. -Continue Coreg, Imdur, enalapril. -Could consider AICD if patient is able to consent, however patient is currently unable to consent -Fluid and sodium restrictions, follow volume status. Chronic kidney disease stage 3/4. Stable -Avoid nephrotoxins. -Monitor BMP intermittently Anemia with iron deficiency, hemoglobin stable since admission Iron studies indicate iron 45, TIBC 232, ferritin 345 Continue ferrous sulfate 325 mg daily Continue monitor CBC intermittently Diabetic mellitus - Glucose was well controlled. All insulin discontinued. -Accu-checks discontinued as patient's blood sugar well controlled and Hgb A1c 6.9. -continue diet control Peripheral arterial disease-stable. -Continue anticoagulation Constipation, patient having bowel movement every few days -Abdominal x-ray 02/16 indicates moderate amount of stool in the colon on the left side. -Milk of magnesia as needed. -MiraLAX, lactulose, Haydee-Colace daily, lactulose, MiraLAX -Dulcolax as needed DVT prophylaxis - patient on Coumadin Discharge Planning Awaiting placement. PT at rehab recommended. OT recommends 3-1 bedside commode , shower bench, and long-term care facility with restorative services. Problem Qualifiers (1) Cellulitis: (2) S/P BKA (below knee amputation) unilateral: Qualified Code: Z89.511 - S/P BKA (below knee amputation) unilateral, right (3) CVA (cerebral vascular accident): Qualified Code: I63.9 - Cerebrovascular accident (CVA), unspecified mechanism Jennifer Mae Apr 12, 2016 15:19 Bacilio Carr DO Apr 13, 2016 01:46 -Ativan and Haldol prn Constipation: -Abdominal x-ray 02/16 with moderate amount of stool in the colon on the left side; minimally prominent segments of small bowel in the upper abdomen -MiraLAX, Haydee-Colace, and Lactulose. -Continue Dulcolax suppository as needed. DVT prophylaxis -patient on Lovenox Discharge Planning Awaiting placement. PT at rehab recommended. OT recommends 3-1 bedside commode , shower bench, and long-term care facility with restorative services. Problem Qualifiers (1) Cellulitis: (2) S/P BKA (below knee amputation) unilateral: Qualified Code: Z89.511 - S/P BKA (below knee amputation) unilateral, right (3) CVA (cerebral vascular accident): Qualified Code: I63.9 - Cerebrovascular accident (CVA), unspecified mechanism Jennifer Mae Apr 12, 2016 15:19
[2016-04-12 20:00] VITALS: BP 109/71; PULSE 86; RESP 18; TEMP 96.6; O2SAT 99
[2016-04-12] MEDS: ISOSORBIDE MONONITRATE 60 MG TAB PO SCH (20:18)
[2016-04-12] MEDS: WARFARIN SOD 6 MG TAB PO SCH (20:19)
[2016-04-12] MEDS ORDERED: WARFARIN SOD 2 MG TAB PO ONE (21:00)
[2016-04-13 06:05] LABS: INTERNATIONAL NORMALIZED RATIO 1.5 RATIO; PROTHROMBIN TIME - PATIENT 17.4 SEC (9.8-11.6)
[2016-04-13 08:00] VITALS: BP 132/76; PULSE 69; RESP 18; TEMP 95.9; O2SAT 96
[2016-04-13] MEDS: CARVEDILOL 12.5 MG TAB PO SCH ×2 (08:58→20:31)
[2016-04-13] MEDS: FERROUS SULFATE 325 MG (65 MG ELEMENTAL IRON) TAB PO SCH (08:58)
[2016-04-13] MEDS: ATORVASTATIN 40 MG TAB PO SCH (08:58)
[2016-04-13] MEDS: POLYETHYLENE GLYCOL 17 GM PKG PO SCH (08:58)
[2016-04-13] MEDS: LACTULOSE SYRUP 20 GM/30 ML CUP PO SCH (08:58)
[2016-04-13] MEDS: ENALAPRIL MALEATE 5 MG TAB PO SCH (08:58)
[2016-04-13] MEDS: DOCUSATE SODIUM 50 MG/SENNA 8.6 MG TAB PO SCH ×2 (08:58→20:32)
[2016-04-13] MEDS: QUEtiapine FUMARATE 100 MG TAB PO SCH ×2 (08:58→20:31)
[2016-04-13] MEDS: EUCERIN CREAM 120 GM JAR TOPICAL SCH ×2 (08:59→20:32)
--- NOTE | 2016-04-13 14:44 | HHI.PR ---
Subjective Remarks No acute complaints. No change clinical status. Objective Vitals Vital Signs Date Time Temp Pulse Resp B/P Pulse Ox O2 Delivery O2 Flow Rate FiO2 04/13/16 08:00 95.9 69 18 132/76 96 04/12/16 20:00 96.6 86 18 109/71 99 I/O 04/12/16 04/12/16 04/12/16 04/13/16 04/13/16 04/13/16 07:00 15:00 23:00 07:00 15:00 23:00 Intake Total 60 ml 420 ml 0 ml Balance 60 ml 420 ml 0 ml Intake Oral 60 ml 420 ml IV Total 0 ml 0 ml # Voids 3 Objective Remarks GENERAL: Well-nourished, well-developed male in no apparent distress sleeping in [place]. SKIN: Warm and dry. Flaky skin over face. CARDIOVASCULAR: Regular rate and rhythm. RESPIRATORY: Limited anterior exam. No accessory muscle use. Clear to auscultation. GASTROINTESTINAL: Abdomen soft, non-tender, non-distended. NEUROLOGICAL: Awake and alert. Procedures None Urinary Catheter: No Vascular Central Line Catheter: No A/P Problem List: (1) Cellulitis ICD Code: L03.90 Status: Resolved (2) Ischemic cardiomyopathy ICD Code: I25.5 Status: Chronic (3) Diabetes mellitus type 2 in obese ICD Code: E11.9 Status: Chronic (4) S/P BKA (below knee amputation) unilateral ICD Code: Z89.519 Status: Chronic (5) Acute metabolic encephalopathy ICD Code: G93.41 Status: Resolved (6) Bacteremia ICD Code: R78.81 Status: Resolved (7) Chronic systolic (congestive) heart failure ICD Code: I50.22 Status: Chronic (8) Venous stasis ulcer of left lower extremity ICD Code: I83.029 Status: Chronic (9) CVA (cerebral vascular accident) ICD Code: I63.9 Status: Chronic (10) Seborrheic dermatitis ICD Code: L21.9 Status: Chronic (11) Anemia ICD Code: D64.9 Status: Chronic (12) HTN (hypertension) ICD Code: I10 Status: Acute (13) UTI (urinary tract infection) ICD Code: N39.0 Status: Resolved Assessment and Plan 60-year-old male with admitted 10/14 with acute cortical infarct. Patient remains with significant cognitive deficit. Bilateral cerebrovascular accident, with Intermittent and persistent cognitive defect -MRI showed acute cortical infarct of the right cerebral peduncle to the pelvis , left thalamus punctate area of infarct -Neurology last seen patient on 11/13/15, recommended long-term anticoagulation -Continue with Statin. -Continue Coumadin 5 mg daily and monitor INR/PT keep INR between 2 and 3, pharmacy consult for dosing. INR 1.5, but patient has been compliant with medication. -Reconsulted PT/OT, patient will require intermittent therapy while he remains in the hospital so he does not decompensate -Out of bed with nursing only. Patient was counseled to not get out of bed on his own. Fall risk due to cognitive deficit -[facility] bed, vest restraints while in chair, will discuss with nursing staff to possibly get him out of the [facility] bed at this time and see how he does. -Psychiatry reconsulted 02/17 for evaluation and appreciate recommendations on patient's cognition, agitation, and medication non-compliance -Seroquel 100 mg daily and 150 mg at bedtime Hypertension: mildly labile Amlodipine 10 mg daily Lisinopril 5 mg daily carvedilol 25 bid, Imdur 60 daily Ischemic Cardiomyopathy/chronic systolic CHF LVEF 35% on echo 03/2015. Denies shortness of breath. Compensated. -Continue Coreg, Imdur, enalapril. -Could consider AICD if patient is able to consent, however patient is currently unable to consent -Fluid and sodium restrictions, follow volume status. Chronic kidney disease stage 3/4. Stable -Avoid nephrotoxins. -Monitor BMP intermittently Anemia with iron deficiency, hemoglobin stable since admission Iron studies indicate iron 45, TIBC 232, ferritin 345 Continue ferrous sulfate 325 mg daily Continue monitor CBC intermittently Diabetic mellitus - Glucose was well controlled. All insulin discontinued. -Accu-checks discontinued as patient's blood sugar well controlled and Hgb A1c 6.9. -continue diet control Peripheral arterial disease-stable. -Continue anticoagulation Constipation, patient having bowel movement every few days -Abdominal x-ray 02/16 indicates moderate amount of stool in the colon on the left side. -Milk of magnesia as needed. -MiraLAX, lactulose, Haydee-Colace daily, lactulose, MiraLAX -Dulcolax as needed DVT prophylaxis - patient on Coumadin Discharge Planning Awaiting placement. PT at rehab recommended. OT recommends 3-1 bedside commode , shower bench, and long-term care facility with restorative services. Problem Qualifiers (1) Cellulitis: (2) S/P BKA (below knee amputation) unilateral: Qualified Code: Z89.511 - S/P BKA (below knee amputation) unilateral, right (3) CVA (cerebral vascular accident): Qualified Code: I63.9 - Cerebrovascular accident (CVA), unspecified mechanism Jennifer Mae Apr 13, 2016 14:44 Bacilio Carr DO Apr 14, 2016 00:57
[2016-04-13 20:00] VITALS: BP 124/83; PULSE 82; RESP 18; TEMP 96.1; O2SAT 98
[2016-04-13] MEDS: ISOSORBIDE MONONITRATE 60 MG TAB PO SCH (20:31)
[2016-04-13] MEDS ORDERED: WARFARIN SOD 10 MG TAB PO ONE (21:00)
[2016-04-14 08:00] VITALS: BP 151/100; PULSE 97; RESP 18; TEMP 95.8; O2SAT 95
[2016-04-14] MEDS: CARVEDILOL 12.5 MG TAB PO SCH ×2 (08:33→21:06)
[2016-04-14] MEDS: LACTULOSE SYRUP 20 GM/30 ML CUP PO SCH (08:33)
[2016-04-14] MEDS: QUEtiapine FUMARATE 100 MG TAB PO SCH ×2 (08:33→21:01)
[2016-04-14] MEDS: POLYETHYLENE GLYCOL 17 GM PKG PO SCH (08:33)
[2016-04-14] MEDS: ENALAPRIL MALEATE 5 MG TAB PO SCH (08:33)
[2016-04-14] MEDS: EUCERIN CREAM 120 GM JAR TOPICAL SCH ×2 (08:33→21:00)
[2016-04-14] MEDS: FERROUS SULFATE 325 MG (65 MG ELEMENTAL IRON) TAB PO SCH (08:33)
[2016-04-14] MEDS: DOCUSATE SODIUM 50 MG/SENNA 8.6 MG TAB PO SCH ×2 (08:33→21:01)
[2016-04-14] MEDS: ATORVASTATIN 40 MG TAB PO SCH (08:33)
[2016-04-14 09:31] LABS: INTERNATIONAL NORMALIZED RATIO 1.8 RATIO; PROTHROMBIN TIME - PATIENT 20.7 SEC (9.8-11.6)
--- NOTE | 2016-04-14 10:56 | HHI.PR ---
Subjective Remarks No acute complaints. No change in clinical status. Objective Vitals Vital Signs Date Time Temp Pulse Resp B/P Pulse Ox O2 Delivery O2 Flow Rate FiO2 04/14/16 08:00 95.8 97 18 151/100 95 04/13/16 20:00 96.1 82 18 124/83 98 I/O 04/13/16 04/13/16 04/13/16 04/14/16 04/14/16 04/14/16 07:00 15:00 23:00 07:00 15:00 23:00 Intake Total 480 ml Balance 480 ml Intake Oral 480 ml IV Total 0 ml # Voids 2 # Bowel Movements 0 Objective Remarks GENERAL: Well-nourished, well-developed male in no apparent distress in recliner in day room. SKIN: Warm and dry. Flaky skin and red patches of the face and neck. CARDIOVASCULAR: Regular rate and rhythm. RESPIRATORY: Limited anterior exam. No accessory muscle use. Clear to auscultation. GASTROINTESTINAL: Abdomen soft, non-tender, non-distended. NEUROLOGICAL: Awake and alert. Procedures None Urinary Catheter: No Vascular Central Line Catheter: No A/P Problem List: (1) Cellulitis ICD Code: L03.90 Status: Resolved (2) Ischemic cardiomyopathy ICD Code: I25.5 Status: Chronic (3) Diabetes mellitus type 2 in obese ICD Code: E11.9 Status: Chronic (4) S/P BKA (below knee amputation) unilateral ICD Code: Z89.519 Status: Chronic (5) Acute metabolic encephalopathy ICD Code: G93.41 Status: Resolved (6) Bacteremia ICD Code: R78.81 Status: Resolved (7) Chronic systolic (congestive) heart failure ICD Code: I50.22 Status: Chronic (8) Venous stasis ulcer of left lower extremity ICD Code: I83.029 Status: Chronic (9) CVA (cerebral vascular accident) ICD Code: I63.9 Status: Chronic (10) Seborrheic dermatitis ICD Code: L21.9 Status: Chronic (11) Anemia ICD Code: D64.9 Status: Chronic (12) HTN (hypertension) ICD Code: I10 Status: Acute (13) UTI (urinary tract infection) ICD Code: N39.0 Status: Resolved Assessment and Plan 60-year-old male with admitted 10/14 with acute cortical infarct. Patient remains with significant cognitive deficit. Bilateral cerebrovascular accident, with Intermittent and persistent cognitive defect -MRI showed acute cortical infarct of the right cerebral peduncle to the pelvis , left thalamus punctate area of infarct -Neurology last seen patient on 11/13/15, recommended long-term anticoagulation -Continue with Statin. -Continue Coumadin 5 mg daily and monitor INR/PT keep INR between 2 and 3, pharmacy consult for dosing. INR 1.8, but patient has been compliant with medication. Ensure patient is adherent with Coumadin diet. -Reconsulted PT/OT, patient will require intermittent therapy while he remains in the hospital so he does not decompensate -Out of bed with nursing only. Patient was counseled to not get out of bed on his own. Fall risk due to cognitive deficit -[facility] bed, vest restraints while in chair, will discuss with nursing staff to possibly get him out of the [facility] bed at this time and see how he does. -Psychiatry reconsulted 02/17 for evaluation and appreciate recommendations on patient's cognition, agitation, and medication non-compliance -Seroquel 100 mg daily and 150 mg at bedtime Hypertension: labile; Isolated elevated BP of 151/100 this morning. Amlodipine 10 mg daily Lisinopril 5 mg daily carvedilol 25 bid, Imdur 60 daily Monitor Ischemic Cardiomyopathy/chronic systolic CHF LVEF 35% on echo 03/2015. Denies shortness of breath. Compensated. -Continue Coreg, Imdur, enalapril. -Could consider AICD if patient is able to consent, however patient is currently unable to consent -Fluid and sodium restrictions, follow volume status. Chronic kidney disease stage 3/4. Stable -Avoid nephrotoxins. -Monitor BMP periodically Anemia with iron deficiency, hemoglobin stable since admission Iron studies indicate iron 45, TIBC 232, ferritin 345 Continue ferrous sulfate 325 mg daily Continue monitor CBC periodically Diabetic mellitus - Glucose was well controlled. All insulin discontinued. -Accu-checks discontinued as patient's blood sugar well controlled and Hgb A1c 6.9. -continue diet control Peripheral arterial disease-stable. -Continue anticoagulation Seborrheic dermatitis: Patient has significant dermatitis to the face which is chronic but he is not on current treatment. -Will order hydrocortisone cream 1% to apply to the face daily. Infrequent dosing should likely not cause significant rise in BGLs. Constipation, patient having bowel movement every few days -Abdominal x-ray 02/16 indicates moderate amount of stool in the colon on the left side. -Milk of magnesia as needed. -MiraLAX, lactulose, Hadyee-Colace daily, lactulose, MiraLAX -Dulcolax as needed DVT prophylaxis - patient on Coumadin Discharge Planning Awaiting placement. PT at rehab recommended. OT recommends 3-1 bedside commode , shower bench, and long-term care facility with restorative services. Problem Qualifiers (1) Cellulitis: (2) S/P BKA (below knee amputation) unilateral: Qualified Code: Z89.511 - S/P BKA (below knee amputation) unilateral, right (3) CVA (cerebral vascular accident): Qualified Code: I63.9 - Cerebrovascular accident (CVA), unspecified mechanism Jennifer Mae Apr 14, 2016 10:56 am Bacilio Carr DO Apr 14, 2016 6:47 pm
[2016-04-14 20:00] VITALS: BP 110/80; PULSE 88; RESP 19; TEMP 97.8; O2SAT 97
[2016-04-14] MEDS ORDERED: WARFARIN SOD 4 MG TAB PO ONE (21:00)
[2016-04-14] MEDS: WARFARIN SOD 6 MG TAB PO SCH (21:00)
[2016-04-14] MEDS: ISOSORBIDE MONONITRATE 60 MG TAB PO SCH (21:02)
[2016-04-15 04:42] LABS: INTERNATIONAL NORMALIZED RATIO 1.9 RATIO; PROTHROMBIN TIME - PATIENT 21.9 SEC (9.8-11.6)
[2016-04-15] MEDS: POLYETHYLENE GLYCOL 17 GM PKG PO SCH (07:52)
[2016-04-15] MEDS: ATORVASTATIN 40 MG TAB PO SCH (07:53)
[2016-04-15] MEDS: DOCUSATE SODIUM 50 MG/SENNA 8.6 MG TAB PO SCH ×2 (07:53→20:55)
[2016-04-15] MEDS: ENALAPRIL MALEATE 5 MG TAB PO SCH (07:53)
[2016-04-15] MEDS: EUCERIN CREAM 120 GM JAR TOPICAL SCH ×2 (07:54→20:56)
[2016-04-15] MEDS: LACTULOSE SYRUP 20 GM/30 ML CUP PO SCH (07:54)
[2016-04-15] MEDS: CARVEDILOL 12.5 MG TAB PO SCH ×2 (07:54→20:55)
[2016-04-15] MEDS: QUEtiapine FUMARATE 100 MG TAB PO SCH ×2 (07:54→20:55)
[2016-04-15] MEDS: FERROUS SULFATE 325 MG (65 MG ELEMENTAL IRON) TAB PO SCH (07:54)
[2016-04-15 08:00] VITALS: BP 118/84; PULSE 74; RESP 18; TEMP 97.9; O2SAT 98
[2016-04-15] MEDS: HYDROCORTISONE 1% CREAM 30 GM TOPICAL SCH (08:56)
--- NOTE | 2016-04-15 10:05 | HHI.PR ---
Subjective Remarks No acute complaints. No change in clinical status. RN informed me patient is to be moved back down to the 3rd floor and taken out of [place] bed, but I am unsure who gave this order. Objective Vitals Vital Signs Date Time Temp Pulse Resp B/P Pulse Ox O2 Delivery O2 Flow Rate FiO2 04/15/16 08:00 97.9 74 18 118/84 98 04/14/16 20:00 97.8 88 19 110/80 97 I/O 04/14/16 04/14/16 04/14/16 04/15/16 04/15/16 04/15/16 07:00 15:00 23:00 07:00 15:00 23:00 Intake Total 480 ml 60 ml 120 ml Balance 480 ml 60 ml 120 ml Intake Oral 480 ml 60 ml 120 ml # Voids 2 0 3 # Bowel Movements 0 0 1 Objective Remarks GENERAL: Well-nourished, well-developed male in no apparent distress in recliner in day room. SKIN: Warm and dry. There is less flaky skin and erythema to the face this morning. CARDIOVASCULAR: Regular rate and rhythm. RESPIRATORY: Limited anterior exam. No accessory muscle use. Clear to auscultation. GASTROINTESTINAL: Normoactive bowel sounds. Abdomen soft, non-tender, non- distended. NEUROLOGICAL: Awake and alert. Procedures None Urinary Catheter: No Vascular Central Line Catheter: No A/P Problem List: (1) Cellulitis ICD Code: L03.90 Status: Resolved (2) Ischemic cardiomyopathy ICD Code: I25.5 Status: Chronic (3) Diabetes mellitus type 2 in obese ICD Code: E11.9 Status: Chronic (4) S/P BKA (below knee amputation) unilateral ICD Code: Z89.519 Status: Chronic (5) Acute metabolic encephalopathy ICD Code: G93.41 Status: Resolved (6) Bacteremia ICD Code: R78.81 Status: Resolved (7) Chronic systolic (congestive) heart failure ICD Code: I50.22 Status: Chronic (8) Venous stasis ulcer of left lower extremity ICD Code: I83.029 Status: Chronic (9) CVA (cerebral vascular accident) ICD Code: I63.9 Status: Chronic (10) Seborrheic dermatitis ICD Code: L21.9 Status: Chronic (11) Anemia ICD Code: D64.9 Status: Chronic (12) HTN (hypertension) ICD Code: I10 Status: Acute (13) UTI (urinary tract infection) ICD Code: N39.0 Status: Resolved Assessment and Plan 60-year-old male with admitted 10/14 with acute cortical infarct. Patient remains with significant cognitive deficit. Bilateral cerebrovascular accident, with Intermittent and persistent cognitive defect -MRI showed acute cortical infarct of the right cerebral peduncle to the pelvis , left thalamus punctate area of infarct -Neurology last seen patient on 11/13/15, recommended long-term anticoagulation -Continue with Statin. -Continue Coumadin 5 mg daily and monitor INR/PT keep INR between 2 and 3, pharmacy consult for dosing. INR 1.9; patient has been compliant with medication. Ensure patient is adherent with Coumadin diet. -Reconsulted PT/OT, patient will require intermittent therapy while he remains in the hospital so he does not decompensate -Out of bed with nursing only. Patient was counseled to not get out of bed on his own. Fall risk due to cognitive deficit -[place] bed, vest restraints while in chair. -Psychiatry reconsulted 02/17 for evaluation and appreciate recommendations on patient's cognition, agitation, and medication non-compliance -Seroquel 100 mg daily and 150 mg at bedtime -Patient seems to be behaving appropriately at this time. Will try patient out of [place] but must remain in view of nurse's station on 3rd floor. Hypertension: labile. Amlodipine 10 mg daily Lisinopril 5 mg daily carvedilol 25 bid, Imdur 60 daily Monitor Ischemic Cardiomyopathy/chronic systolic CHF LVEF 35% on echo 03/2015. Denies shortness of breath. Compensated. -Continue Coreg, Imdur, enalapril. -Could consider AICD if patient is able to consent, however patient is currently unable to consent -Fluid and sodium restrictions, follow volume status. Chronic kidney disease stage 3/4. Stable -Avoid nephrotoxins. -Monitor BMP periodically Anemia with iron deficiency, hemoglobin stable since admission Iron studies indicate iron 45, TIBC 232, ferritin 345 Continue ferrous sulfate 325 mg daily Continue monitor CBC periodically Diabetic mellitus - Glucose was well controlled. All insulin discontinued. -Accu-checks discontinued as patient's blood sugar well controlled and Hgb A1c 6.9. -continue diet control Peripheral arterial disease-stable. -Continue anticoagulation Seborrheic dermatitis: Patient has significant dermatitis to the face which is chronic but he is not on current treatment. Face appears improved today. -Continue hydrocortisone cream 1% to apply to the face daily on short term basis. Constipation, patient having bowel movement every few days -Abdominal x-ray 02/16 indicates moderate amount of stool in the colon on the left side. -Milk of magnesia as needed. -MiraLAX, lactulose, Haydee-Colace daily, lactulose, MiraLAX -Dulcolax as needed DVT prophylaxis - patient on Coumadin Discharge Planning Awaiting placement. PT at rehab recommended. OT recommends 3-1 bedside commode , shower bench, and long-term care facility with restorative services. Problem Qualifiers (1) Cellulitis: (2) S/P BKA (below knee amputation) unilateral: Qualified Code: Z89.511 - S/P BKA (below knee amputation) unilateral, right (3) CVA (cerebral vascular accident): Qualified Code: I63.9 - Cerebrovascular accident (CVA), unspecified mechanism Jennifer Mae Apr 15, 2016 10:05
[2016-04-15 20:00] VITALS: BP 100/65; PULSE 76; RESP 18; TEMP 98.9; O2SAT 98
[2016-04-15] MEDS: WARFARIN SOD 6 MG TAB PO SCH (20:54)
[2016-04-15] MEDS: ISOSORBIDE MONONITRATE 60 MG TAB PO SCH (20:55)
[2016-04-16 06:58] LABS: INTERNATIONAL NORMALIZED RATIO 2.2 RATIO; PROTHROMBIN TIME - PATIENT 25.5 SEC (9.8-11.6)
[2016-04-16 08:00] VITALS: BP 150/88; PULSE 88; RESP 18; TEMP 98.4; O2SAT 93
[2016-04-16] MEDS: QUEtiapine FUMARATE 100 MG TAB PO SCH ×2 (09:00→21:02)
[2016-04-16] MEDS: POLYETHYLENE GLYCOL 17 GM PKG PO SCH (09:00)
--- NOTE | 2016-04-16 09:54 | HHI.PR ---
Subjective Remarks Follow-up for persistent cognitive deficit. The patient was moved from the 5th floor to 3rd floor and taken out of the [place] crib and placed in room across the nurse's station yesterday. I spoke with RN who informs me patient only tried to get out of bed once last night. Objective Vitals Vital Signs Date Time Temp Pulse Resp B/P Pulse Ox O2 Delivery O2 Flow Rate FiO2 04/16/16 08:00 98.4 88 18 150/88 93 04/15/16 20:00 98.9 76 18 100/65 98 I/O 04/15/16 04/15/16 04/15/16 04/16/16 04/16/16 04/16/16 07:00 15:00 23:00 07:00 15:00 23:00 Intake Total 120 ml 480 ml 240 ml Balance 120 ml 480 ml 240 ml Intake Oral 120 ml 480 ml 240 ml # Voids 3 1 2 # Bowel Movements 1 1 1 Objective Remarks GENERAL: Well-nourished, well-developed male in no apparent distress. SKIN: Warm and dry. Erythematous scaly patches to the left jaw and left side of neck. There is flaking skin noted in the nasolabial folds. CARDIOVASCULAR: Regular rate and rhythm. RESPIRATORY: Limited anterior exam. No accessory muscle use. Clear to auscultation. GASTROINTESTINAL: Abdomen soft, non-tender, non-distended. Procedures None Urinary Catheter: No Vascular Central Line Catheter: No A/P Problem List: (1) Cellulitis ICD Code: L03.90 Status: Resolved (2) Ischemic cardiomyopathy ICD Code: I25.5 Status: Chronic (3) Diabetes mellitus type 2 in obese ICD Code: E11.9 Status: Chronic (4) S/P BKA (below knee amputation) unilateral ICD Code: Z89.519 Status: Chronic (5) Acute metabolic encephalopathy ICD Code: G93.41 Status: Resolved (6) Bacteremia ICD Code: R78.81 Status: Resolved (7) Chronic systolic (congestive) heart failure ICD Code: I50.22 Status: Chronic (8) Venous stasis ulcer of left lower extremity ICD Code: I83.029 Status: Chronic (9) CVA (cerebral vascular accident) ICD Code: I63.9 Status: Chronic (10) Seborrheic dermatitis ICD Code: L21.9 Status: Chronic (11) Anemia ICD Code: D64.9 Status: Chronic (12) HTN (hypertension) ICD Code: I10 Status: Acute (13) UTI (urinary tract infection) ICD Code: N39.0 Status: Resolved Assessment and Plan 60-year-old male with admitted 10/14 with acute cortical infarct. Patient remains with significant cognitive deficit. Bilateral cerebrovascular accident, with Intermittent and persistent cognitive defect -MRI showed acute cortical infarct of the right cerebral peduncle to the pelvis , left thalamus punctate area of infarct -Neurology last seen patient on 11/13/15, recommended long-term anticoagulation -Continue with Statin. -Continue Coumadin 5 mg daily and monitor INR/PT keep INR between 2 and 3, pharmacy consult for dosing. INR 2.2; patient has been compliant with medication. Ensure patient is adherent with Coumadin diet. -Reconsulted PT/OT, patient will require intermittent therapy while he remains in the hospital so he does not decompensate -Out of bed with nursing only. Patient was counseled to not get out of bed on his own. Fall risk due to cognitive deficit -[place] bed, vest restraints while in chair. -Psychiatry reconsulted 02/17 for evaluation and appreciate recommendations on patient's cognition, agitation, and medication non-compliance -Seroquel 100 mg daily and 150 mg at bedtime -Patient seems to be behaving appropriately at this time. Will try patient out of [place] but must remain in view of nurse's station on 3rd floor. Hypertension: labile. Amlodipine 10 mg daily Lisinopril 5 mg daily Carvedilol 25 bid, Imdur 60 daily Monitor Ischemic Cardiomyopathy/chronic systolic CHF LVEF 35% on echo 03/2015. Denies shortness of breath. Compensated. -Continue Coreg, Imdur, enalapril. -Could consider AICD if patient is able to consent, however patient is currently unable to consent -Fluid and sodium restrictions, follow volume status. Chronic kidney disease stage 3/4. Stable -Avoid nephrotoxins. -Monitor BMP periodically Anemia with iron deficiency, hemoglobin stable since admission Iron studies indicate iron 45, TIBC 232, ferritin 345 Continue ferrous sulfate 325 mg daily Continue monitor CBC periodically Diabetic mellitus - Glucose was well controlled. All insulin discontinued. -Accu-checks discontinued as patient's blood sugar well controlled and Hgb A1c 6.9. -continue diet control Peripheral arterial disease-stable. -Continue anticoagulation Seborrheic dermatitis: Dermatitis to the face and neck. Flaking skin is improved but still has erythematous patches over L side of face and neck. -Continue hydrocortisone cream 1% to apply to affected regions of the face and neck daily on short term basis. Constipation: 2 BMs over the past 24 hours. -Abdominal x-ray 02/16 indicates moderate amount of stool in the colon on the left side. -Milk of magnesia as needed. -MiraLAX, lactulose, Haydee-Colace daily, lactulose, MiraLAX -Dulcolax as needed DVT prophylaxis - patient on Coumadin Discharge Planning Awaiting placement. PT at rehab recommended. OT recommends 3-1 bedside commode , shower bench, and long-term care facility with restorative services. Problem Qualifiers (1) Cellulitis: (2) S/P BKA (below knee amputation) unilateral: Qualified Code: Z89.511 - S/P BKA (below knee amputation) unilateral, right (3) CVA (cerebral vascular accident): Qualified Code: I63.9 - Cerebrovascular accident (CVA), unspecified mechanism Jennifer Mae Apr 16, 2016 09:54
[2016-04-16] MEDS: DOCUSATE SODIUM 50 MG/SENNA 8.6 MG TAB PO SCH ×2 (10:10→20:59)
[2016-04-16] MEDS: LACTULOSE SYRUP 20 GM/30 ML CUP PO SCH (10:10)
[2016-04-16] MEDS: CARVEDILOL 12.5 MG TAB PO SCH ×2 (10:10→20:59)
[2016-04-16] MEDS: ATORVASTATIN 40 MG TAB PO SCH (10:10)
[2016-04-16] MEDS: ENALAPRIL MALEATE 5 MG TAB PO SCH (10:10)
[2016-04-16] MEDS: HYDROCORTISONE 1% CREAM 30 GM TOPICAL SCH (10:11)
[2016-04-16] MEDS: FERROUS SULFATE 325 MG (65 MG ELEMENTAL IRON) TAB PO SCH (10:11)
[2016-04-16] MEDS: EUCERIN CREAM 120 GM JAR TOPICAL SCH ×2 (10:11→21:04)
[2016-04-16 20:00] VITALS: BP 154/95; PULSE 75; RESP 18; TEMP 97.7; O2SAT 100
[2016-04-16] MEDS: ISOSORBIDE MONONITRATE 60 MG TAB PO SCH (20:59)
[2016-04-16] MEDS: WARFARIN SOD 6 MG TAB PO SCH (20:59)
[2016-04-17] VITALS: BP 105/65; PULSE 71; RESP 18; TEMP 96.7; O2SAT 96
[2016-04-17 07:03] LABS: INTERNATIONAL NORMALIZED RATIO 2.1 RATIO; PROTHROMBIN TIME - PATIENT 24.1 SEC (9.8-11.6)
[2016-04-17 08:24] VITALS: BP 113/75; PULSE 81; RESP 17; TEMP 97; O2SAT 99
[2016-04-17] MEDS: CARVEDILOL 12.5 MG TAB PO SCH ×2 (08:45→22:20)
[2016-04-17] MEDS: FERROUS SULFATE 325 MG (65 MG ELEMENTAL IRON) TAB PO SCH (08:45)
[2016-04-17] MEDS: ATORVASTATIN 40 MG TAB PO SCH (08:47)
[2016-04-17] MEDS: ENALAPRIL MALEATE 5 MG TAB PO SCH (08:48)
[2016-04-17] MEDS: QUEtiapine FUMARATE 100 MG TAB PO SCH ×2 (08:49→22:21)
[2016-04-17] MEDS: HYDROCORTISONE 1% CREAM 30 GM TOPICAL SCH (08:50)
[2016-04-17] MEDS: LACTULOSE SYRUP 20 GM/30 ML CUP PO SCH (08:50)
[2016-04-17] MEDS: DOCUSATE SODIUM 50 MG/SENNA 8.6 MG TAB PO SCH ×2 (08:50→21:00)
[2016-04-17] MEDS: POLYETHYLENE GLYCOL 17 GM PKG PO SCH (08:50)
[2016-04-17] MEDS: EUCERIN CREAM 120 GM JAR TOPICAL SCH ×2 (08:51→22:21)
--- NOTE | 2016-04-17 09:49 | HHI.PR ---
Subjective Remarks F/u for persistent cognitive deficit. No acute complaints. No change in clinical status. Objective Vitals Vital Signs Date Time Temp Pulse Resp B/P Pulse Ox O2 Delivery O2 Flow Rate FiO2 04/17/16 08:24 97.0 81 17 113/75 99 04/17/16 00:00 96.7 71 18 105/65 96 04/16/16 20:00 97.7 75 18 154/95 100 I/O 04/16/16 04/16/16 04/16/16 04/17/16 04/17/16 04/17/16 07:00 15:00 23:00 07:00 15:00 23:00 Intake Total 240 ml 240 ml 600 ml 0 ml Output Total 1 ml Balance 240 ml 240 ml 599 ml 0 ml Intake Oral 240 ml 240 ml 600 ml IV Total 0 ml 0 ml Stool Total 1 ml # Voids 2 2 # Bowel Movements 1 Objective Remarks GENERAL: Well-nourished, well-developed male in no apparent distress sitting in recliner. SKIN: Warm and dry. Erythematous patches to the nose, L cheek, and left side of neck. There is flaking skin noted in the nasolabial folds. CARDIOVASCULAR: Regular rate and rhythm. RESPIRATORY: Limited anterior exam. No accessory muscle use. Clear to auscultation. GASTROINTESTINAL: Abdomen soft, non-tender, non-distended. Procedures None Urinary Catheter: No Vascular Central Line Catheter: No A/P Problem List: (1) Cellulitis ICD Code: L03.90 Status: Resolved (2) Ischemic cardiomyopathy ICD Code: I25.5 Status: Chronic (3) Diabetes mellitus type 2 in obese ICD Code: E11.9 Status: Chronic (4) S/P BKA (below knee amputation) unilateral ICD Code: Z89.519 Status: Chronic (5) Acute metabolic encephalopathy ICD Code: G93.41 Status: Resolved (6) Bacteremia ICD Code: R78.81 Status: Resolved (7) Chronic systolic (congestive) heart failure ICD Code: I50.22 Status: Chronic (8) Venous stasis ulcer of left lower extremity ICD Code: I83.029 Status: Chronic (9) CVA (cerebral vascular accident) ICD Code: I63.9 Status: Chronic (10) Seborrheic dermatitis ICD Code: L21.9 Status: Chronic (11) Anemia ICD Code: D64.9 Status: Chronic (12) HTN (hypertension) ICD Code: I10 Status: Acute (13) UTI (urinary tract infection) ICD Code: N39.0 Status: Resolved Assessment and Plan 60-year-old male with admitted 10/14 with acute cortical infarct. Patient remains with significant cognitive deficit. Bilateral cerebrovascular accident, with Intermittent and persistent cognitive defect -MRI showed acute cortical infarct of the right cerebral peduncle to the pelvis , left thalamus punctate area of infarct -Neurology last seen patient on 11/13/15, recommended long-term anticoagulation -Continue with Statin. -Continue Coumadin 5 mg daily and monitor INR/PT keep INR between 2 and 3, pharmacy consult for dosing. INR 2.1; patient has been compliant with medication. -Reconsulted PT/OT, patient will require intermittent therapy while he remains in the hospital so he does not decompensate -Out of bed with nursing only. Patient was counseled to not get out of bed on his own. Fall risk due to cognitive deficit -Psychiatry reconsulted 02/17 for evaluation and appreciate recommendations on patient's cognition, agitation, and medication non-compliance -Seroquel 100 mg daily and 150 mg at bedtime -Patient currently out of [place] but must remain in view of nurse's station on 3rd floor. Hypertension: labile. Amlodipine 10 mg daily Lisinopril 5 mg daily Carvedilol 25 bid, Imdur 60 daily Monitor Ischemic Cardiomyopathy/chronic systolic CHF LVEF 35% on echo 03/2015. Denies shortness of breath. Compensated. -Continue Coreg, Imdur, enalapril. -Could consider AICD if patient is able to consent, however patient is currently unable to consent -Fluid and sodium restrictions, follow volume status. Chronic kidney disease stage 3/4. Stable -Avoid nephrotoxins. -Monitor BMP periodically. Recheck am BMP. Anemia with iron deficiency, hemoglobin stable since admission Iron studies indicate iron 45, TIBC 232, ferritin 345 Continue ferrous sulfate 325 mg daily Continue monitor CBC periodically Diabetic mellitus - Glucose was well controlled. All insulin discontinued. -Accu-checks discontinued as patient's blood sugar well controlled and Hgb A1c 6.9. -continue diet control Peripheral arterial disease-stable. -Continue anticoagulation Seborrheic dermatitis: Dermatitis to the face and neck. Flaking skin is improved but still has erythematous patches present. -Continue hydrocortisone cream 1% to apply to affected regions of the face and neck daily on short term basis. Constipation: -Abdominal x-ray 02/16 indicates moderate amount of stool in the colon on the left side. -Milk of magnesia as needed. -MiraLAX, lactulose, Haydee-Colace daily, lactulose, MiraLAX -Dulcolax as needed DVT prophylaxis - patient on Coumadin Discharge Planning Awaiting placement. PT at rehab recommended. OT recommends 3-1 bedside commode , shower bench, and long-term care facility with restorative services. Problem Qualifiers (1) Cellulitis: (2) S/P BKA (below knee amputation) unilateral: Qualified Code: Z89.511 - S/P BKA (below knee amputation) unilateral, right (3) CVA (cerebral vascular accident): Qualified Code: I63.9 - Cerebrovascular accident (CVA), unspecified mechanism Jennifer Mae Apr 17, 2016 09:49
[2016-04-17 20:00] VITALS: BP 135/75; PULSE 83; RESP 16; TEMP 96.8; O2SAT 97
[2016-04-17] MEDS: ISOSORBIDE MONONITRATE 60 MG TAB PO SCH (22:20)
[2016-04-17] MEDS: WARFARIN SOD 6 MG TAB PO SCH (22:20)
[2016-04-18 05:46] LABS: POTASSIUM 5.6 MEQ/L (3.5-5.1)
[2016-04-18 05:47] LABS: INTERNATIONAL NORMALIZED RATIO 2.2 RATIO; PROTHROMBIN TIME - PATIENT 24.6 SEC (9.8-11.6)
[2016-04-18 05:50] LABS: BICARBONATE 23.2 MEQ/L (21.0-32.0)
[2016-04-18 07:15] VITALS: BP 97/61; PULSE 69; RESP 20; TEMP 96.4; O2SAT 97
[2016-04-18] MEDS: POLYETHYLENE GLYCOL 17 GM PKG PO SCH (09:00)
[2016-04-18] MEDS: QUEtiapine FUMARATE 100 MG TAB PO SCH ×2 (09:00→20:58)
[2016-04-18] MEDS: LACTULOSE SYRUP 20 GM/30 ML CUP PO SCH (09:00)
[2016-04-18] MEDS: DOCUSATE SODIUM 50 MG/SENNA 8.6 MG TAB PO SCH ×2 (09:00→20:56)
[2016-04-18] MEDS ORDERED: SODIUM POLYSTYRENE SULFONATE SUSP 15 GM/60 ML CUP PO STA (09:12)
[2016-04-18] MEDS: ATORVASTATIN 40 MG TAB PO SCH (09:57)
[2016-04-18] MEDS: CARVEDILOL 12.5 MG TAB PO SCH ×2 (09:57→20:57)
[2016-04-18] MEDS: FERROUS SULFATE 325 MG (65 MG ELEMENTAL IRON) TAB PO SCH (09:57)
[2016-04-18] MEDS: EUCERIN CREAM 120 GM JAR TOPICAL SCH ×2 (09:58→21:00)
[2016-04-18] MEDS: HYDROCORTISONE 1% CREAM 30 GM TOPICAL SCH (09:58)
[2016-04-18] MEDS: SODIUM CHLOR 0.9% 1000 ML INJ 1,000 ML IV SCH ×2 (09:59→20:56)
--- NOTE | 2016-04-18 10:51 | HHI.PR ---
Subjective Remarks Patient evaluated at ~0930. F/u for persistent cognitive deficit. BMP today indicates worsening renal function and hyperkalemia. The patient denies any chest pain, shortness of breath, vomiting, diarrhea, hematochezia, melena, or muscle weakness. I spoke with RN Ava who states the patient had a large bowel movement a few days ago and there was no blood noted. Objective Vitals Vital Signs Date Time Temp Pulse Resp B/P Pulse Ox O2 Delivery O2 Flow Rate FiO2 04/18/16 07:15 96.4 69 20 97/61 97 04/17/16 20:00 96.8 83 16 135/75 97 I/O 04/17/16 04/17/16 04/17/16 04/18/16 04/18/16 04/18/16 07:00 15:00 23:00 07:00 15:00 23:00 Intake Total 0 ml 800 ml 620 ml Output Total 450 ml Balance 0 ml 800 ml 170 ml Intake Oral 800 ml 620 ml IV Total 0 ml 0 ml 0 ml Output Urine Total 450 ml # Voids 2 # Bowel Movements 0 0 Result Diagram: 04/18/16 0503 Objective Remarks GENERAL: Well-nourished, well-developed male in no apparent distress sleeping in bed when I enter the room. SKIN: Warm and dry. There is flaking skin noted over the nose and nasolabial folds, but it is improved. The erythematous patches previously present over L cheek and left side of neck are not apparent. CARDIOVASCULAR: Regular rate and rhythm. No murmurs. RESPIRATORY: Limited anterior exam. No accessory muscle use. Clear to auscultation bilaterally. GASTROINTESTINAL: Abdomen soft, non-tender, non-distended. MUSCULOSKELETAL: R BKA stump. LLE without edema. NEUROLOGICAL: Arouses to voice. Awake and alert. Procedures None Urinary Catheter: No Vascular Central Line Catheter: No A/P Problem List: (1) Acute kidney injury superimposed on CKD ICD Code: N17.9 Status: Acute (2) Hyperkalemia ICD Code: E87.5 Status: Acute (3) Cellulitis ICD Code: L03.90 Status: Resolved (4) Ischemic cardiomyopathy ICD Code: I25.5 Status: Chronic (5) Diabetes mellitus type 2 in obese ICD Code: E11.9 Status: Chronic (6) S/P BKA (below knee amputation) unilateral ICD Code: Z89.519 Status: Chronic (7) Acute metabolic encephalopathy ICD Code: G93.41 Status: Resolved (8) Bacteremia ICD Code: R78.81 Status: Resolved (9) Chronic systolic (congestive) heart failure ICD Code: I50.22 Status: Chronic (10) Venous stasis ulcer of left lower extremity ICD Code: I83.029 Status: Chronic (11) CVA (cerebral vascular accident) ICD Code: I63.9 Status: Chronic (12) Seborrheic dermatitis ICD Code: L21.9 Status: Chronic (13) Anemia ICD Code: D64.9 Status: Chronic (14) HTN (hypertension) ICD Code: I10 Status: Chronic (15) UTI (urinary tract infection) ICD Code: N39.0 Status: Resolved Assessment and Plan 60-year-old male with admitted 10/14 with acute cortical infarct. Patient remains with significant cognitive deficit. Bilateral cerebrovascular accident, with Intermittent and persistent cognitive defect -MRI showed acute cortical infarct of the right cerebral peduncle to the pelvis , left thalamus punctate area of infarct -Neurology last seen patient on 11/13/15, recommended long-term anticoagulation -Continue with Statin. -Continue Coumadin 5 mg daily and monitor INR/PT keep INR between 2 and 3, pharmacy consult for dosing. INR 2.2; patient has been compliant with medication. -Reconsulted PT/OT, patient will require intermittent therapy while he remains in the hospital so he does not decompensate -Out of bed with nursing only. Patient was counseled to not get out of bed on his own. Fall risk due to cognitive deficit -Psychiatry reconsulted 02/17 for evaluation and appreciate recommendations on patient's cognition, agitation, and medication non-compliance -Seroquel 100 mg daily and 150 mg at bedtime -Patient currently out of [place] but must remain in view of nurse's station on 3rd floor. PAT superimposed on Stage 3 CKD: BUN/Cr 81/2.20 today. Creatinine previously stable at 1.6 on 03/21/16. BUN is significantly elevated from prior. PAT is pre-renal. Patient's BP is 97/61 (MAP 73) this morning. Patient is likely not adequately hydrating. No report of bleeding. Additionally has hyperkalemia, see below. CK normal. -IV normal saline @ 100 mL/hr. Monitor for fluid overload as patient has history of cardiomyopathy with reduced EF. -Hold DIALLO inhibitor this morning. -Repeat BMP at 1700 hours with improving renal function BUN/Cr 68/1.9. Continue IVF and recheck am BMP. -Monitor intake and output -Avoid nephrotoxins. Hyperkalemia: K+ 5.6. -Patient given 30 g Kayexalate. -Repeat K+ 5.4 at 1700 hours, but this was prior to BM. Another 30 g Kayexalate ordered. -Recheck K+ in the morning. -Telemetry Hypertension: labile. Amlodipine 10 mg daily Lisinopril 5 mg daily Carvedilol 25 bid, Imdur 60 daily Monitor Ischemic Cardiomyopathy/chronic systolic CHF LVEF 35% on echo 10/21/15. Denies shortness of breath. Compensated. -Continue Coreg, Imdur, enalapril. -Could consider AICD if patient is able to consent, however patient is currently unable to consent -Fluid and sodium restrictions, follow volume status. Anemia with iron deficiency: Hemoglobin 8.7 today previously 10 on 03/21, but patient has had hemoglobin in the 8's on multiple occasions. Anemia due to CKD but also has iron deficiency. No report of active bleeding. Iron studies indicate iron 45, TIBC 232, ferritin normal at 345 Continue ferrous sulfate 325 mg daily Repeat am CBC Diabetic mellitus - Glucose was well controlled. All insulin discontinued. -Accu-checks discontinued as patient's blood sugar well controlled and Hgb A1c 6.9. -continue diet control Peripheral arterial disease-stable. -Continue anticoagulation Seborrheic dermatitis: Dermatitis to the face and neck. Flaking skin and erythematous patches improved. -Continue hydrocortisone cream 1% to apply to affected regions of the face and neck daily on short term basis. Constipation: -Abdominal x-ray 02/16 indicates moderate amount of stool in the colon on the left side. -Milk of magnesia as needed. -MiraLAX, lactulose, Haydee-Colace daily, lactulose, MiraLAX -Dulcolax as needed DVT prophylaxis - patient on Coumadin Acute issues were discussed with Dr. Carr, attending physician. RN later informed me that the patient has turbid milky appearing urine. WBC normal. Will order UA, clean catch ordered. Discharge Planning Awaiting placement. PT at rehab recommended. OT recommends 3-1 bedside commode , shower bench, and long-term care facility with restorative services. Problem Qualifiers (1) Cellulitis: (2) S/P BKA (below knee amputation) unilateral: Qualified Code: Z89.511 - S/P BKA (below knee amputation) unilateral, right (3) CVA (cerebral vascular accident): Qualified Code: I63.9 - Cerebrovascular accident (CVA), unspecified mechanism Jennifer Mae Apr 18, 2016 10:51
[2016-04-18] MEDS ORDERED: SODIUM POLYSTYRENE SULFONATE SUSP 15 GM/60 ML CUP PO ONE ×2 (11:00→21:00)
[2016-04-18 11:05] LABS: AUTOMATED NEUTROPHIL # 6.5 TH/MM3 (1.8-7.7); BASOPHIL % 0.4 % (0.0-2.0); EOSINOPHIL # 0.5 TH/MM3 (0-0.4); EOSINOPHIL % 5.1 % (0.0-4.0); HEMATOCRIT 25.9 % (39.0-51.0); HEMO FLAGS DIFF FINAL; LYMPH % 15.9 % (9.0-44.0); LYMPHOCYTE # 1.4 TH/MM3 (1.0-4.8); MEAN CELL VOLUME 84.6 FL (80.0-100.0); MEAN CORPUSCULAR HEMOGLOBIN 28.3 PG (27.0-34.0); MEAN CORPUSCULAR HGB CONC 33.5 % (32.0-36.0); MONO % 5.5 % (0.0-8.0); NEUT % 73.1 % (16.0-70.0); PLATELET COUNT 232 TH/MM3 (150-450); RED BLOOD COUNT 3.06 MIL/MM3 (4.50-5.90); RED CELL DISTRIBUTION WIDTH 13.4 % (11.6-17.2); WHITE BLOOD COUNT 8.9 TH/MM3 (4.0-11.0)
[2016-04-18 17:25] LABS: POTASSIUM 5.4 MEQ/L (3.5-5.1)
[2016-04-18 17:28] LABS: BICARBONATE 23.5 MEQ/L (21.0-32.0); MAGNESIUM 1.9 MG/DL (1.5-2.5)
[2016-04-18] MEDS ORDERED: DOCUSATE SODIUM 50 MG/SENNA 8.6 MG TAB PO ONE (17:45)
[2016-04-18] MEDS: SODIUM POLYSTYRENE SULFONATE SUSP 15 GM/60 ML CUP PO ONE ×2 (18:11→18:29)
[2016-04-18 20:00] VITALS: BP 136/84; PULSE 70; RESP 20; TEMP 96; O2SAT 96
[2016-04-18] MEDS: WARFARIN SOD 6 MG TAB PO SCH (20:54)
[2016-04-18] MEDS: ISOSORBIDE MONONITRATE 60 MG TAB PO SCH (20:59)
[2016-04-19] VITALS: BP 103/81; PULSE 83; RESP 20; TEMP 96.6; O2SAT 98
[2016-04-19] MEDS: SODIUM CHLOR 0.9% 1000 ML INJ 1,000 ML IV SCH ×4 (05:30→21:50)
[2016-04-19 06:10] LABS: HEMATOCRIT 26.3 % (39.0-51.0); MEAN CELL VOLUME 84.5 FL (80.0-100.0); MEAN CORPUSCULAR HEMOGLOBIN 27.8 PG (27.0-34.0); MEAN CORPUSCULAR HGB CONC 32.9 % (32.0-36.0); PLATELET COUNT 221 TH/MM3 (150-450); RED BLOOD COUNT 3.11 MIL/MM3 (4.50-5.90); RED CELL DISTRIBUTION WIDTH 13.3 % (11.6-17.2); REVIEW FLAG FINAL; WHITE BLOOD COUNT 8.2 TH/MM3 (4.0-11.0)
[2016-04-19 06:13] LABS: INTERNATIONAL NORMALIZED RATIO 2.3 RATIO; PROTHROMBIN TIME - PATIENT 26.8 SEC (9.8-11.6)
[2016-04-19 06:15] LABS: BICARBONATE 23.5 MEQ/L (21.0-32.0)
--- NOTE | 2016-04-19 07:38 | HHI.PR ---
Subjective Remarks Patient seen and examined today. Patient states that he is feeling "lousy". He denies any new complaints. Discussed with nursing staff who states that the patient refusing IV fluids, and that he is trying to get out of bed this morning since he's been awake. Potassium back to normal, hemoglobin stable. Objective Vitals Vital Signs Date Time Temp Pulse Resp B/P Pulse Ox O2 Delivery O2 Flow Rate FiO2 04/19/16 00:00 96.6 83 20 103/81 98 04/18/16 20:00 96.0 70 20 136/84 96 I/O 04/18/16 04/18/16 04/18/16 04/19/16 04/19/16 04/19/16 07:00 15:00 23:00 07:00 15:00 23:00 Intake Total 620 ml 60 ml 480 ml Output Total 450 ml 75 ml 875 ml Balance 170 ml -15 ml -395 ml Intake Oral 620 ml 60 ml 480 ml IV Total 0 ml Output Urine Total 450 ml 75 ml 875 ml # Voids 5 # Bowel Movements 0 1 0 0 Result Diagram: 04/19/16 0535 04/19/16 0535 Objective Remarks GENERAL: Well-developed, well-nourished, in no acute distress. Alert and orientated to person HEENT: Head is normocephalic without any lesions or masses noted. Facial features are symmetric. Extraocular muscles are intact. Conjunctivae were clear. NECK: Supple without any masses. Trachea midline no deviation. No JVD, CARDIAC: Regular rhythm, regular rate. S1/S2 are heard. No murmurs gallops or rubs. LUNGS: Clear to auscultation bilaterally. No wheeze, rhonchi or rales. No use of accessory muscles on inspiration or expiration. ABDOMEN: Soft, nontender. Nondistended. Bowel sounds heard in all 4 quadrants. No organomegaly or masses. Negative rebound, negative guarding. EXTREMITIES: No edema, pulses are equal bilaterally. No cyanosis or clubbing. Right [id number] amputation. NEUROLOGY: Mood and affect appear appropriate. Cranial nerves II through XII grossly intact. Moving all extremities, speech is clear Procedures None Urinary Catheter: No Vascular Central Line Catheter: No A/P Assessment and Plan 60-year-old male with admitted 10/14 with acute cortical infarct. Patient remains with significant cognitive deficit. Bilateral cerebrovascular accident, with Intermittent and persistent cognitive defect -MRI showed acute cortical infarct of the right cerebral peduncle to the pelvis , left thalamus punctate area of infarct -Neurology last seen patient on 11/13/15, recommended long-term anticoagulation -Continue with Statin. -Continue Coumadin daily and monitor INR/PT keep INR between 2 and 3, pharmacy consult for dosing. INR 2.3, -Reconsulted PT/OT, patient will require intermittent therapy while he remains in the hospital so he does not decompensate -Out of bed with nursing only. Patient was counseled to not get out of bed on his own. Fall risk due to cognitive deficit -Psychiatry reconsulted 02/17 for evaluation and appreciate recommendations on patient's cognition, agitation -Seroquel 100 mg daily and 150 mg at bedtime Hyperkalemia, likely accommodation of poor by mouth intake, DIALLO inhibitor Discontinue DIALLO inhibitor due to hyperkalemia Status post Kayexalate 30 g Continue monitor potassium level Encourage by mouth intake Discontinue telemetry Cloudy urine per nursing staff Patient asymptomatic, no fever, leukocytosis, signs of infection Awaiting urinalysis Hypertension: Blood pressure stable Amlodipine 10 mg daily carvedilol 25 bid, Imdur 60 daily Ischemic Cardiomyopathy/chronic systolic CHF LVEF 35% on echo 03/2015. Denies shortness of breath. Compensated. -Continue Coreg, Imdur, enalapril. -Could consider AICD if patient is able to consent, however patient is currently unable to consent -Fluid and sodium restrictions, follow volume status. Chronic kidney disease stage 3/4. Stable -Patient with intermittent worsening due to poor by mouth intake -Avoid nephrotoxins. -Monitor BMP intermittently Anemia with iron deficiency, hemoglobin stable Iron studies indicate iron 45, TIBC 232, ferritin 345 Continue ferrous sulfate 325 mg daily Continue monitor CBC intermittently Seborrhea dermatitis Hydrocortisone cream was started, continue for 2 weeks only Encourage proper hygiene Diabetic mellitus - Glucose was well controlled. All insulin discontinued. -accu-checks discontinued as patient's blood sugar well controlled and Hgb A1c 6.9. -continue diet control Peripheral arterial disease-stable. -Continue anticoagulation Constipation, patient having bowel movement every 2-3 days -Abdominal x-ray 02/16 indicates moderate amount of stool in the colon on the left side. -Milk of magnesia as needed. -MiraLAX, lactulose, Haydee-Colace daily, lactulose, MiraLAX -Dulcolax as needed DVT prophylaxis - patient on Coumadin Discharge Planning Patient is medically stable and has been cleared for discharge from medical perspective. Case management arranging discharge planning to [facility] once a finding facility that'll accept the patient/insurance. Has accepting SNF in order to get Medicaid, and must have someone to sign him in. Case management following. 04/16/16 PATIENT MOVED DOWN FROM FIFTH FLOOR TO THIRD FLOOR ACROSS FROM NURSES STATION AND OUT OF [facility]. PATIENT SAT QUIETLY DURING MOST OF THE DAY IN [facility] AND ONLY TRIED TO GET OOB X 1 DURING THE NIGHT REPORTED BY NURSING STAFF. PATIENT HAS SEVERE COGNITIVE DEFICITS AND WILL REQUIRE CORRECTION PLACEMENT. SISTER IS WILLING TO SIGN HIM INTO FACILITY WHEN ONE IS FOUND PATIENT HAS NO SNF BENEFITS WITH HIS PRESENT INSURANCE. CM FOLLOWING. Truman Fulton Apr 19, 2016 07:38
[2016-04-19 08:00] VITALS: BP 124/77; PULSE 83; RESP 18; TEMP 97.3; O2SAT 100
[2016-04-19] MEDS: CARVEDILOL 12.5 MG TAB PO SCH ×2 (08:45→21:46)
[2016-04-19] MEDS: POLYETHYLENE GLYCOL 17 GM PKG PO SCH (08:45)
[2016-04-19] MEDS: ATORVASTATIN 40 MG TAB PO SCH (08:45)
[2016-04-19] MEDS: FERROUS SULFATE 325 MG (65 MG ELEMENTAL IRON) TAB PO SCH (08:46)
[2016-04-19] MEDS: LACTULOSE SYRUP 20 GM/30 ML CUP PO SCH (08:46)
[2016-04-19] MEDS: DOCUSATE SODIUM 50 MG/SENNA 8.6 MG TAB PO SCH ×2 (08:46→21:45)
[2016-04-19] MEDS: EUCERIN CREAM 120 GM JAR TOPICAL SCH ×2 (08:46→21:49)
[2016-04-19] MEDS: HYDROCORTISONE 1% CREAM 30 GM TOPICAL SCH (08:46)
[2016-04-19] MEDS: QUEtiapine FUMARATE 100 MG TAB PO SCH ×2 (08:52→21:48)
[2016-04-19 19:16] LABS: BLOOD, URINE SMALL (NEG); GLUCOSE,URINE NEG (NEG); KETONE, URINE NEG (NEG); NITRITE,URINE NEG (NEG)
[2016-04-19 19:30] LABS: METHOD OF COLLECTION CLEAN CATCH
[2016-04-19 19:31] LABS: URINE COLOR YELLOW (YELLW/STRAW); WBC, URINE 100-200 /hpf (0-5)
[2016-04-19 19:32] LABS: BACTERIA, URINE OCC /hpf; COMMENT (UR) CULTURE INDICATED; CULTURE IF INDICATED CULTURE INDICATED; SQUAMOUS EPITHELIAL CELL URINE 0-5 /hpf (0-5)
[2016-04-19 20:00] VITALS: BP 136/80; PULSE 87; RESP 20; TEMP 97.2; O2SAT 98
[2016-04-19] MEDS: ISOSORBIDE MONONITRATE 60 MG TAB PO SCH (21:47)
[2016-04-19] MEDS: WARFARIN SOD 6 MG TAB PO SCH (21:48)
[2016-04-20 02:00] VITALS: BP 115/75; PULSE 73; RESP 20; TEMP 97.3; O2SAT 98
[2016-04-20 06:52] LABS: POTASSIUM 4.4 MEQ/L (3.5-5.1)
[2016-04-20 06:54] LABS: INTERNATIONAL NORMALIZED RATIO 2.4 RATIO; PROTHROMBIN TIME - PATIENT 27.4 SEC (9.8-11.6)
[2016-04-20 06:55] LABS: BICARBONATE 22.2 MEQ/L (21.0-32.0)
[2016-04-20] MEDS: POLYETHYLENE GLYCOL 17 GM PKG PO SCH (08:46)
[2016-04-20] MEDS: CARVEDILOL 12.5 MG TAB PO SCH ×2 (08:46→19:57)
[2016-04-20] MEDS: FERROUS SULFATE 325 MG (65 MG ELEMENTAL IRON) TAB PO SCH (08:46)
[2016-04-20] MEDS: LACTULOSE SYRUP 20 GM/30 ML CUP PO SCH (08:46)
[2016-04-20] MEDS: ATORVASTATIN 40 MG TAB PO SCH (08:46)
[2016-04-20] MEDS: QUEtiapine FUMARATE 100 MG TAB PO SCH ×2 (08:46→20:00)
[2016-04-20] MEDS: DOCUSATE SODIUM 50 MG/SENNA 8.6 MG TAB PO SCH ×2 (08:46→20:02)
[2016-04-20] MEDS: SODIUM CHLOR 0.9% 1000 ML INJ 1,000 ML IV SCH (08:47)
[2016-04-20] MEDS: EUCERIN CREAM 120 GM JAR TOPICAL SCH ×2 (08:47→20:03)
[2016-04-20] MEDS: HYDROCORTISONE 1% CREAM 30 GM TOPICAL SCH (08:47)
[2016-04-20 09:01] VITALS: BP 124/82; PULSE 76; RESP 14; TEMP 95.9; O2SAT 97
--- NOTE | 2016-04-20 13:25 | HHI.PR ---
Subjective Remarks Patient seen and examined today. Patient denies any new complaints. Still awaiting rehabilitation facility to evaluate the patient for transfer Objective Vitals Vital Signs Date Time Temp Pulse Resp B/P Pulse Ox O2 Delivery O2 Flow Rate FiO2 04/20/16 09:01 95.9 76 14 124/82 97 04/20/16 02:00 97.3 73 20 115/75 98 04/19/16 20:00 97.2 87 20 136/80 98 I/O 04/19/16 04/19/16 04/19/16 04/20/16 04/20/16 04/20/16 06:59 14:59 22:59 06:59 14:59 22:59 Intake Total 480 ml 750 ml 120 ml 120 ml Output Total 875 ml Balance -395 ml 750 ml 120 ml 120 ml Intake Oral 480 ml 750 ml 120 ml 120 ml Output Urine Total 875 ml # Voids 3 1 2 # Bowel Movements 0 1 0 0 Result Diagram: 04/19/16 0535 04/20/16 0535 Objective Remarks GENERAL: Well-developed, well-nourished, in no acute distress. Alert and orientated to person HEENT: Head is normocephalic without any lesions or masses noted. Facial features are symmetric. Extraocular muscles are intact. Conjunctivae were clear. NECK: Supple without any masses. Trachea midline no deviation. No JVD, CARDIAC: Regular rhythm, regular rate. S1/S2 are heard. No murmurs gallops or rubs. LUNGS: Clear to auscultation bilaterally. No wheeze, rhonchi or rales. No use of accessory muscles on inspiration or expiration. ABDOMEN: Soft, nontender. Nondistended. Bowel sounds heard in all 4 quadrants. No organomegaly or masses. Negative rebound, negative guarding. EXTREMITIES: No edema, pulses are equal bilaterally. No cyanosis or clubbing. Right ewyhq-hsz-mwyr amputation. NEUROLOGY: Mood and affect appear appropriate. Cranial nerves II through XII grossly intact. Moving all extremities, speech is clear Procedures None Urinary Catheter: No Vascular Central Line Catheter: No A/P Assessment and Plan 60-year-old male with admitted 10/14 with acute cortical infarct. Patient remains with significant cognitive deficit. Bilateral cerebrovascular accident, with Intermittent and persistent cognitive defect -MRI showed acute cortical infarct of the right cerebral peduncle to the pelvis , left thalamus punctate area of infarct -Neurology last seen patient on 11/13/15, recommended long-term anticoagulation -Continue with Statin. -Continue Coumadin daily and monitor INR/PT keep INR between 2 and 3, pharmacy consult for dosing. INR 2.3, -Reconsulted PT/OT, patient will require intermittent therapy while he remains in the hospital so he does not decompensate -Out of bed with nursing only. Patient was counseled to not get out of bed on his own. Fall risk due to cognitive deficit -Psychiatry reconsulted 02/17 for evaluation and appreciate recommendations on patient's cognition, agitation -Seroquel 100 mg daily and 150 mg at bedtime Hyperkalemia, likely accommodation of poor by mouth intake, DIALLO inhibitor Discontinue DIALLO inhibitor due to hyperkalemia Status post Kayexalate 30 g Continue monitor potassium level Encourage by mouth intake Discontinue telemetry Cloudy urine per nursing staff Patient asymptomatic, no fever, leukocytosis, signs of infection Urinalysis likely infection, however sample appears to be contaminated as well. Start Cipro 500 mg twice daily for 7 days Hypertension: Blood pressure stable Amlodipine 10 mg daily carvedilol 25 bid, Imdur 60 daily Ischemic Cardiomyopathy/chronic systolic CHF LVEF 35% on echo 03/2015. Denies shortness of breath. Compensated. -Continue Coreg, Imdur, enalapril. -Could consider AICD if patient is able to consent, however patient is currently unable to consent -Fluid and sodium restrictions, follow volume status. Chronic kidney disease stage 3/4. Stable -Patient with intermittent worsening due to poor by mouth intake -Avoid nephrotoxins. -Monitor BMP intermittently Anemia with iron deficiency, hemoglobin stable Iron studies indicate iron 45, TIBC 232, ferritin 345 Continue ferrous sulfate 325 mg daily Continue monitor CBC intermittently Seborrhea dermatitis Hydrocortisone cream was started, continue for 2 weeks only Encourage proper hygiene Diabetic mellitus - Glucose was well controlled. All insulin discontinued. -accu-checks discontinued as patient's blood sugar well controlled and Hgb A1c 6.9. -continue diet control Peripheral arterial disease-stable. -Continue anticoagulation Constipation, patient having bowel movement every 2-3 days -Abdominal x-ray 02/16 indicates moderate amount of stool in the colon on the left side. -Milk of magnesia as needed. -MiraLAX, lactulose, Haydee-Colace daily, lactulose, MiraLAX -Dulcolax as needed DVT prophylaxis - patient on Coumadin Discharge Planning Patient is medically stable and has been cleared for discharge from medical perspective. Case management [facility] once a finding facility that'll accept the patient/insurance. Has accepting SNF in order to get Medicaid, and must have someone to sign him in. Case management following. 04/20/16-Spoke with Malorie Auguste at length yesterday regarding patient. She was to evaluate yesterday, but got held up at the main. She will come see today. CM also spoke with sister to notify her of pending evaluation. Truman Fulton Apr 20, 2016 13:25
[2016-04-20] MEDS: CIPROFLOXACIN 500 MG TAB PO SCH ×2 (13:56→20:01)
[2016-04-20] MEDS: ISOSORBIDE MONONITRATE 60 MG TAB PO SCH (19:56)
[2016-04-20] MEDS: WARFARIN SOD 6 MG TAB PO SCH (19:59)
[2016-04-20 20:15] VITALS: BP 159/98; PULSE 83; RESP 18; TEMP 97.1; O2SAT 99
[2016-04-21 06:30] LABS: INTERNATIONAL NORMALIZED RATIO 2.3 RATIO; PROTHROMBIN TIME - PATIENT 26.8 SEC (9.8-11.6)
[2016-04-21 08:00] VITALS: BP 130/70; PULSE 78; RESP 16; TEMP 98.2; O2SAT 96
--- NOTE | 2016-04-21 08:46 | HHI.PR ---
Subjective Remarks Patient seen and examined today. Patient denies any new complaints. No change in clinical status. Objective Vitals Vital Signs Date Time Temp Pulse Resp B/P Pulse Ox O2 Delivery O2 Flow Rate FiO2 04/20/16 20:15 97.1 83 18 159/98 99 04/20/16 09:01 95.9 76 14 124/82 97 I/O 04/20/16 04/20/16 04/20/16 04/21/16 04/21/16 04/21/16 07:00 15:00 23:00 07:00 15:00 23:00 Intake Total 120 ml 600 ml Balance 120 ml 600 ml Intake Oral 120 ml 600 ml # Voids 2 3 2 # Bowel Movements 0 Result Diagram: 04/19/16 0535 04/20/16 0535 Objective Remarks GENERAL: Well-developed, well-nourished, in no acute distress. Alert and orientated to person HEENT: Head is normocephalic without any lesions or masses noted. Facial features are symmetric. Extraocular muscles are intact. Conjunctivae were clear. NECK: Supple without any masses. Trachea midline no deviation. No JVD, CARDIAC: Regular rhythm, regular rate. S1/S2 are heard. No murmurs gallops or rubs. LUNGS: Clear to auscultation bilaterally. No wheeze, rhonchi or rales. No use of accessory muscles on inspiration or expiration. ABDOMEN: Soft, nontender. Nondistended. Bowel sounds heard in all 4 quadrants. No organomegaly or masses. Negative rebound, negative guarding. EXTREMITIES: No edema, pulses are equal bilaterally. No cyanosis or clubbing. Right fjbop-xpy-oxxq amputation. NEUROLOGY: Mood and affect appear appropriate. Cranial nerves II through XII grossly intact. Moving all extremities, speech is clear Procedures None Urinary Catheter: No Vascular Central Line Catheter: No A/P Assessment and Plan 60-year-old male with admitted 10/14 with acute cortical infarct. Patient remains with significant cognitive deficit. Bilateral cerebrovascular accident, with Intermittent and persistent cognitive defect -MRI showed acute cortical infarct of the right cerebral peduncle to the pelvis , left thalamus punctate area of infarct -Neurology last seen patient on 11/13/15, recommended long-term anticoagulation -Continue with Statin. -Continue Coumadin daily and monitor INR/PT keep INR between 2 and 3, pharmacy consult for dosing. INR 2.3, -Reconsulted PT/OT, patient will require intermittent therapy while he remains in the hospital so he does not decompensate -Out of bed with nursing only. Patient was counseled to not get out of bed on his own. Fall risk due to cognitive deficit -Psychiatry reconsulted 02/17 for evaluation and appreciate recommendations on patient's cognition, agitation -Seroquel 100 mg daily and 150 mg at bedtime Hyperkalemia, likely combination of poor by mouth intake, DIALLO inhibitor, resolved Discontinue DIALLO inhibitor due to hyperkalemia Status post Kayexalate 30 g Continue monitor potassium level Encourage by mouth intake Discontinue telemetry Urinary tract infection Patient asymptomatic, no fever, leukocytosis, signs of infection Urinalysis likely infection, however sample appears to be contaminated as well , await cultures for final determination Start Cipro 500 mg twice daily for 7 days Hypertension: Blood pressure stable Amlodipine 10 mg daily carvedilol 25 bid, Imdur 60 daily Ischemic Cardiomyopathy/chronic systolic CHF LVEF 35% on echo 03/2015. Denies shortness of breath. Compensated. -Continue Coreg, Imdur, enalapril. -Could consider AICD if patient is able to consent, however patient is currently unable to consent -Fluid and sodium restrictions, follow volume status. Chronic kidney disease stage 3/4. Stable -Patient with intermittent worsening due to poor by mouth intake -Avoid nephrotoxins. -Monitor BMP intermittently Anemia with iron deficiency, hemoglobin stable Iron studies indicate iron 45, TIBC 232, ferritin 345 Continue ferrous sulfate 325 mg daily Continue monitor CBC intermittently Seborrhea dermatitis Hydrocortisone cream was started, continue for 2 weeks only Encourage proper hygiene Diabetic mellitus - Glucose was well controlled. All insulin discontinued. -accu-checks discontinued as patient's blood sugar well controlled and Hgb A1c 6.9. -continue diet control Peripheral arterial disease-stable. -Continue anticoagulation Constipation, patient having bowel movement every 2-3 days -Abdominal x-ray 02/16 indicates moderate amount of stool in the colon on the left side. -Milk of magnesia as needed. -MiraLAX, lactulose, Haydee-Colace daily, lactulose, MiraLAX -Dulcolax as needed DVT prophylaxis - patient on Coumadin Discharge Planning Patient is medically stable and has been cleared for discharge from medical perspective. Case management arranging discharge planning to [facility] facility once a finding facility that'll accept the patient/insurance. Has accepting SNF in order to get Medicaid, and must have someone to sign him in. Case management following. 04/20/[address] [facility] IS EVALUATING TO ACCEPT. HAVE SPOKE WITH SISTER WHO WILL MEET WITH FACILITY ON MON. TO ADDRESS ANY NEEDS TO ASSIST IN PLACING PATIENT THERE. EVELIA BEAUCHAMP LPN/CM/CHARGE Truman Fulton Apr 21, 2016 08:46
[2016-04-21] MEDS: QUEtiapine FUMARATE 100 MG TAB PO SCH ×2 (08:54→20:56)
[2016-04-21] MEDS: CARVEDILOL 12.5 MG TAB PO SCH ×2 (08:54→20:56)
[2016-04-21] MEDS: FERROUS SULFATE 325 MG (65 MG ELEMENTAL IRON) TAB PO SCH (08:55)
[2016-04-21] MEDS: ATORVASTATIN 40 MG TAB PO SCH (08:55)
[2016-04-21] MEDS: POLYETHYLENE GLYCOL 17 GM PKG PO SCH (08:55)
[2016-04-21] MEDS: DOCUSATE SODIUM 50 MG/SENNA 8.6 MG TAB PO SCH ×2 (08:55→20:54)
[2016-04-21] MEDS: LACTULOSE SYRUP 20 GM/30 ML CUP PO SCH (09:00)
[2016-04-21] MEDS: EUCERIN CREAM 120 GM JAR TOPICAL SCH ×2 (09:05→21:05)
[2016-04-21] MEDS: HYDROCORTISONE 1% CREAM 30 GM TOPICAL SCH (09:05)
[2016-04-21] MEDS: CIPROFLOXACIN 500 MG TAB PO SCH (12:30)
[2016-04-21 19:15] VITALS: BP 108/72; PULSE 76; PULSE 84; RESP 18; TEMP 96.5; TEMP 96.9; O2SAT 96; O2SAT 97
[2016-04-21] MEDS: ISOSORBIDE MONONITRATE 60 MG TAB PO SCH (20:55)
[2016-04-21] MEDS: WARFARIN SOD 6 MG TAB PO SCH (20:55)
[2016-04-22] MEDS: CIPROFLOXACIN 500 MG TAB PO SCH (01:06)
[2016-04-22 05:26] LABS: INTERNATIONAL NORMALIZED RATIO 2.2 RATIO; PROTHROMBIN TIME - PATIENT 25.6 SEC (9.8-11.6)
[2016-04-22 08:00] VITALS: BP 134/89; PULSE 81; RESP 20; TEMP 96.5; O2SAT 97
[2016-04-22] MEDS: FERROUS SULFATE 325 MG (65 MG ELEMENTAL IRON) TAB PO SCH (09:17)
[2016-04-22] MEDS: LACTULOSE SYRUP 20 GM/30 ML CUP PO SCH (09:17)
[2016-04-22] MEDS: ATORVASTATIN 40 MG TAB PO SCH (09:17)
[2016-04-22] MEDS: QUEtiapine FUMARATE 100 MG TAB PO SCH ×2 (09:18→20:59)
[2016-04-22] MEDS: CARVEDILOL 12.5 MG TAB PO SCH ×2 (09:18→20:59)
[2016-04-22] MEDS: POLYETHYLENE GLYCOL 17 GM PKG PO SCH (09:18)
[2016-04-22] MEDS: DOCUSATE SODIUM 50 MG/SENNA 8.6 MG TAB PO SCH ×2 (09:18→20:58)
[2016-04-22] MEDS: EUCERIN CREAM 120 GM JAR TOPICAL SCH ×2 (09:24→21:00)
[2016-04-22] MEDS: HYDROCORTISONE 1% CREAM 30 GM TOPICAL SCH (09:24)
[2016-04-22] MEDS: NITROFURANTOIN MONOHYD MACROCR 100 MG CAP PO SCH ×2 (12:12→18:02)
--- NOTE | 2016-04-22 14:53 | HHI.PR ---
Subjective Remarks Patient seen and examined today. Patient denies any new complaints. No change in clinical status. Objective Vitals Vital Signs Date Time Temp Pulse Resp B/P Pulse Ox O2 Delivery O2 Flow Rate FiO2 04/22/16 08:00 96.5 81 20 134/89 97 04/21/16 19:15 96.5 84 18 96 I/O 04/21/16 04/21/16 04/21/16 04/22/16 04/22/16 04/22/16 07:00 15:00 23:00 07:00 15:00 23:00 Intake Total 600 ml 1010 ml Balance 600 ml 1010 ml Intake Oral 600 ml 1010 ml # Voids 2 4 Result Diagram: 04/19/16 0535 04/20/16 0535 Objective Remarks GENERAL: Well-developed, well-nourished, in no acute distress. Alert and orientated to person HEENT: Head is normocephalic without any lesions or masses noted. Facial features are symmetric. Extraocular muscles are intact. Conjunctivae were clear. NECK: Supple without any masses. Trachea midline no deviation. No JVD, CARDIAC: Regular rhythm, regular rate. S1/S2 are heard. No murmurs gallops or rubs. LUNGS: Clear to auscultation bilaterally. No wheeze, rhonchi or rales. No use of accessory muscles on inspiration or expiration. ABDOMEN: Soft, nontender. Nondistended. Bowel sounds heard in all 4 quadrants. No organomegaly or masses. Negative rebound, negative guarding. EXTREMITIES: No edema, pulses are equal bilaterally. No cyanosis or clubbing. Right wkxnr-evs-jwza amputation. NEUROLOGY: Mood and affect appear appropriate. Cranial nerves II through XII grossly intact. Moving all extremities, speech is clear Procedures None Urinary Catheter: No Vascular Central Line Catheter: No A/P Assessment and Plan 60-year-old male with admitted 10/14 with acute cortical infarct. Patient remains with significant cognitive deficit. Bilateral cerebrovascular accident, with Intermittent and persistent cognitive defect -MRI showed acute cortical infarct of the right cerebral peduncle to the pelvis , left thalamus punctate area of infarct -Neurology last seen patient on 11/13/15, recommended long-term anticoagulation -Continue with Statin. -Continue Coumadin daily and monitor INR/PT keep INR between 2 and 3, pharmacy consult for dosing. INR 2.2, -Reconsulted PT/OT, patient will require intermittent therapy while he remains in the hospital so he does not decompensate -Out of bed with nursing only. Patient was counseled to not get out of bed on his own. Fall risk due to cognitive deficit -Psychiatry reconsulted 02/17 for evaluation and appreciate recommendations on patient's cognition, agitation -Seroquel 100 mg daily and 150 mg at bedtime Hyperkalemia, likely combination of poor by mouth intake, DIALLO inhibitor, resolved Discontinue DIALLO inhibitor due to hyperkalemia Status post Kayexalate 30 g Continue monitor potassium level Encourage by mouth intake Discontinue telemetry Urinary tract infection Patient asymptomatic, no fever, leukocytosis, signs of infection Urine culture indicates enterococcus faecalis which is resistant to Cipro Discontinue Cipro, start Macrobid 100 mg twice daily for 10 days Hypertension: Blood pressure stable Amlodipine 10 mg daily carvedilol 25 bid, Imdur 60 daily Ischemic Cardiomyopathy/chronic systolic CHF LVEF 35% on echo 03/2015. Denies shortness of breath. Compensated. -Continue Coreg, Imdur, enalapril. -Could consider AICD if patient is able to consent, however patient is currently unable to consent -Fluid and sodium restrictions, follow volume status. Chronic kidney disease stage 3/4. Stable -Patient with intermittent worsening due to poor by mouth intake -Avoid nephrotoxins. -Monitor BMP intermittently Anemia with iron deficiency, hemoglobin stable Iron studies indicate iron 45, TIBC 232, ferritin 345 Continue ferrous sulfate 325 mg daily Continue monitor CBC intermittently Seborrhea dermatitis Hydrocortisone cream was started, continue for 2 weeks only Encourage proper hygiene Diabetic mellitus - Glucose was well controlled. All insulin discontinued. -accu-checks discontinued as patient's blood sugar well controlled and Hgb A1c 6.9. -continue diet control Peripheral arterial disease-stable. -Continue anticoagulation Constipation, patient having bowel movement every 2-3 days -Abdominal x-ray 02/16 indicates moderate amount of stool in the colon on the left side. -Milk of magnesia as needed. -MiraLAX, lactulose, Haydee-Colace daily, lactulose, MiraLAX -Dulcolax as needed DVT prophylaxis - patient on Coumadin Discharge Planning Patient is medically stable and has been cleared for discharge from medical perspective. Case management arranging discharge planning to long-term facility once a finding facility that'll accept the patient/insurance. Has accepting SNF in order to get Medicaid, and must have someone to sign him in. Case management following. 04/20/16 1422 [facility] IS EVALUATING TO ACCEPT. HAVE SPOKE WITH SISTER WHO WILL MEET WITH FACILITY ON MON. TO ADDRESS ANY NEEDS TO ASSIST IN PLACING PATIENT THERE. EVELIA BEAUCHAMP LPN/CM/CHARGE Truman Fulton Apr 22, 2016 14:53
[2016-04-22 20:00] VITALS: BP 131/79; PULSE 83; RESP 20; TEMP 98.9; O2SAT 96
[2016-04-22] MEDS: WARFARIN SOD 6 MG TAB PO SCH (20:59)
[2016-04-22] MEDS: ISOSORBIDE MONONITRATE 60 MG TAB PO SCH (20:59)
[2016-04-23 08:00] VITALS: BP 116/77; PULSE 75; RESP 20; TEMP 96.2; O2SAT 99
[2016-04-23] MEDS: EUCERIN CREAM 120 GM JAR TOPICAL SCH ×2 (09:00→21:20)
[2016-04-23] MEDS: ATORVASTATIN 40 MG TAB PO SCH (09:45)
[2016-04-23] MEDS: QUEtiapine FUMARATE 100 MG TAB PO SCH ×2 (09:46→20:42)
[2016-04-23] MEDS: NITROFURANTOIN MONOHYD MACROCR 100 MG CAP PO SCH ×2 (09:46→17:38)
[2016-04-23] MEDS: FERROUS SULFATE 325 MG (65 MG ELEMENTAL IRON) TAB PO SCH (09:46)
[2016-04-23] MEDS: CARVEDILOL 12.5 MG TAB PO SCH ×2 (09:46→20:44)
[2016-04-23] MEDS: HYDROCORTISONE 1% CREAM 30 GM TOPICAL SCH (09:47)
[2016-04-23] MEDS: DOCUSATE SODIUM 50 MG/SENNA 8.6 MG TAB PO SCH ×2 (09:47→20:49)
[2016-04-23] MEDS: POLYETHYLENE GLYCOL 17 GM PKG PO SCH (09:47)
[2016-04-23] MEDS: LACTULOSE SYRUP 20 GM/30 ML CUP PO SCH (09:47)
--- NOTE | 2016-04-23 10:18 | HHI.PR ---
Subjective Remarks Patient seen and examined today. Patient denies any new complaints. No change in clinical status. Objective Vitals Vital Signs Date Time Temp Pulse Resp B/P Pulse Ox O2 Delivery O2 Flow Rate FiO2 04/23/16 08:00 96.2 75 20 116/77 99 04/22/16 20:00 98.9 83 20 131/79 96 I/O 04/22/16 04/22/16 04/22/16 04/23/16 04/23/16 04/23/16 07:00 15:00 23:00 07:00 15:00 23:00 Intake Total 1010 ml 330 ml 60 ml Output Total 100 ml Balance 1010 ml 230 ml 60 ml Intake Oral 1010 ml 330 ml 60 ml Output Urine Total 100 ml # Voids 4 1 2 # Bowel Movements 0 Result Diagram: 04/19/16 0535 04/20/16 0535 Objective Remarks GENERAL: Well-developed, well-nourished, in no acute distress. Alert and orientated to person HEENT: Head is normocephalic without any lesions or masses noted. Facial features are symmetric. Extraocular muscles are intact. Conjunctivae were clear. NECK: Supple without any masses. Trachea midline no deviation. No JVD, CARDIAC: Regular rhythm, regular rate. S1/S2 are heard. No murmurs gallops or rubs. LUNGS: Clear to auscultation bilaterally. No wheeze, rhonchi or rales. No use of accessory muscles on inspiration or expiration. ABDOMEN: Soft, nontender. Nondistended. Bowel sounds heard in all 4 quadrants. No organomegaly or masses. Negative rebound, negative guarding. EXTREMITIES: No edema, pulses are equal bilaterally. No cyanosis or clubbing. Right aaucb-ahz-eqwe amputation. NEUROLOGY: Mood and affect appear appropriate. Cranial nerves II through XII grossly intact. Moving all extremities, speech is clear Procedures None Urinary Catheter: No Vascular Central Line Catheter: No A/P Assessment and Plan 60-year-old male with admitted 10/14 with acute cortical infarct. Patient remains with significant cognitive deficit. Bilateral cerebrovascular accident, with Intermittent and persistent cognitive defect -MRI showed acute cortical infarct of the right cerebral peduncle to the pelvis , left thalamus punctate area of infarct -Neurology last seen patient on 11/13/15, recommended long-term anticoagulation -Continue with Statin. -Continue Coumadin daily and monitor INR/PT keep INR between 2 and 3, pharmacy consult for dosing. INR 2.2, -Reconsulted PT/OT, patient will require intermittent therapy while he remains in the hospital so he does not decompensate -Out of bed with nursing only. Patient was counseled to not get out of bed on his own. Fall risk due to cognitive deficit -Psychiatry reconsulted 02/17 for evaluation and appreciate recommendations on patient's cognition, agitation -Seroquel 100 mg daily and 150 mg at bedtime Hyperkalemia, likely combination of poor by mouth intake, DIALLO inhibitor, resolved Discontinue DIALLO inhibitor due to hyperkalemia Status post Kayexalate 30 g Continue monitor potassium level Encourage by mouth intake Discontinue telemetry Urinary tract infection Patient asymptomatic, no fever, leukocytosis, signs of infection Urine culture indicates enterococcus faecalis which is resistant to Cipro Discontinue Cipro, start Macrobid 100 mg twice daily for 10 days Hypertension: Blood pressure stable Amlodipine 10 mg daily carvedilol 25 bid, Imdur 60 daily Ischemic Cardiomyopathy/chronic systolic CHF LVEF 35% on echo 03/2015. Denies shortness of breath. Compensated. -Continue Coreg, Imdur, enalapril. -Could consider AICD if patient is able to consent, however patient is currently unable to consent -Fluid and sodium restrictions, follow volume status. Chronic kidney disease stage 3/4. Stable -Patient with intermittent worsening due to poor by mouth intake -Avoid nephrotoxins. -Monitor BMP intermittently Anemia with iron deficiency, hemoglobin stable Iron studies indicate iron 45, TIBC 232, ferritin 345 Continue ferrous sulfate 325 mg daily Continue monitor CBC intermittently Seborrhea dermatitis Hydrocortisone cream was started, continue for 2 weeks only Encourage proper hygiene Diabetic mellitus - Glucose was well controlled. All insulin discontinued. -accu-checks discontinued as patient's blood sugar well controlled and Hgb A1c 6.9. -continue diet control Peripheral arterial disease-stable. -Continue anticoagulation Constipation, patient having bowel movement every 2-3 days -Abdominal x-ray 02/16 indicates moderate amount of stool in the colon on the left side. -Milk of magnesia as needed. -MiraLAX, lactulose, Haydee-Colace daily, lactulose, MiraLAX -Dulcolax as needed DVT prophylaxis - patient on Coumadin Discharge Planning Patient is medically stable and has been cleared for discharge from medical perspective. Case management arranging discharge planning to [facility]pc facility once a finding facility that'll accept the patient/insurance. Has accepting SNF in order to get Medicaid, and must have someone to sign him in. Case management following. 04/20/16 1422 [facility] IS EVALUATING TO ACCEPT. HAVE SPOKE WITH SISTER WHO WILL MEET WITH FACILITY ON MON. TO ADDRESS ANY NEEDS TO ASSIST IN PLACING PATIENT THERE. EVELIA BEAUCHAMP LPN/CM/CHARGE Truman Fulton Apr 23, 2016 10:18
[2016-04-23 18:22] VITALS: TEMP 98.7
[2016-04-23 20:00] VITALS: BP 142/87; PULSE 85; RESP 19; TEMP 96.7; O2SAT 96
[2016-04-23] MEDS: WARFARIN SOD 6 MG TAB PO SCH (20:46)
[2016-04-23] MEDS: ISOSORBIDE MONONITRATE 60 MG TAB PO SCH (20:48)
[2016-04-23] MEDS ORDERED: WARFARIN SOD 2 MG TAB PO ONE (21:00)
[2016-04-24 06:13] LABS: PROTHROMBIN TIME - PATIENT 22.7 SEC (9.8-11.6)
[2016-04-24 08:00] VITALS: BP_SYST 59; PULSE 70; RESP 20; TEMP 96.9; O2SAT 99
[2016-04-24] MEDS: HYDROCORTISONE 1% CREAM 30 GM TOPICAL SCH (08:15)
[2016-04-24] MEDS: POLYETHYLENE GLYCOL 17 GM PKG PO SCH (08:15)
[2016-04-24] MEDS: NITROFURANTOIN MONOHYD MACROCR 100 MG CAP PO SCH ×2 (08:17→17:23)
[2016-04-24] MEDS: FERROUS SULFATE 325 MG (65 MG ELEMENTAL IRON) TAB PO SCH (08:17)
[2016-04-24] MEDS: CARVEDILOL 12.5 MG TAB PO SCH ×2 (08:18→20:40)
[2016-04-24] MEDS: DOCUSATE SODIUM 50 MG/SENNA 8.6 MG TAB PO SCH ×2 (08:18→20:56)
[2016-04-24] MEDS: LACTULOSE SYRUP 20 GM/30 ML CUP PO SCH (08:20)
[2016-04-24] MEDS: ATORVASTATIN 40 MG TAB PO SCH (08:21)
[2016-04-24] MEDS: QUEtiapine FUMARATE 100 MG TAB PO SCH ×2 (08:22→20:54)
[2016-04-24] MEDS: EUCERIN CREAM 120 GM JAR TOPICAL SCH ×2 (08:23→20:57)
--- NOTE | 2016-04-24 09:27 | HHI.PR ---
Subjective Remarks Patient seen and examined today. Patient denies any new complaints. No change in clinical status. Objective Vitals Vital Signs Date Time Temp Pulse Resp B/P Pulse Ox O2 Delivery O2 Flow Rate FiO2 04/24/16 08:00 96.9 70 20 59/ 99 04/23/16 20:00 96.7 85 19 142/87 96 04/23/16 18:22 98.7 I/O 04/23/16 04/23/16 04/23/16 04/24/16 04/24/16 04/24/16 07:00 15:00 23:00 07:00 15:00 23:00 Intake Total 60 ml 690 ml Balance 60 ml 690 ml Intake Oral 60 ml 690 ml # Voids 2 3 1 3 # Bowel Movements 0 0 0 Result Diagram: 04/20/16 0535 Objective Remarks GENERAL: Well-developed, well-nourished, in no acute distress. Alert and orientated to person HEENT: Head is normocephalic without any lesions or masses noted. Facial features are symmetric. Extraocular muscles are intact. Conjunctivae were clear. NECK: Supple without any masses. Trachea midline no deviation. No JVD, CARDIAC: Regular rhythm, regular rate. S1/S2 are heard. No murmurs gallops or rubs. LUNGS: Clear to auscultation bilaterally. No wheeze, rhonchi or rales. No use of accessory muscles on inspiration or expiration. ABDOMEN: Soft, nontender. Nondistended. Bowel sounds heard in all 4 quadrants. No organomegaly or masses. Negative rebound, negative guarding. EXTREMITIES: No edema, pulses are equal bilaterally. No cyanosis or clubbing. Right xvthw-tnx-lkly amputation. NEUROLOGY: Mood and affect appear appropriate. Cranial nerves II through XII grossly intact. Moving all extremities, speech is clear Procedures None Urinary Catheter: No Vascular Central Line Catheter: No A/P Assessment and Plan 60-year-old male with admitted 10/14 with acute cortical infarct. Patient remains with significant cognitive deficit. Bilateral cerebrovascular accident, with Intermittent and persistent cognitive defect -MRI showed acute cortical infarct of the right cerebral peduncle to the pelvis , left thalamus punctate area of infarct -Neurology last seen patient on 11/13/15, recommended long-term anticoagulation -Continue with Statin. -Continue Coumadin daily and monitor INR/PT keep INR between 2 and 3, pharmacy consult for dosing. INR 2.2, -Reconsulted PT/OT, patient will require intermittent therapy while he remains in the hospital so he does not decompensate -Out of bed with nursing only. Patient was counseled to not get out of bed on his own. Fall risk due to cognitive deficit -Psychiatry reconsulted 02/17 for evaluation and appreciate recommendations on patient's cognition, agitation -Seroquel 100 mg daily and 150 mg at bedtime Hyperkalemia, likely combination of poor by mouth intake, DIALLO inhibitor, resolved Discontinue DIALLO inhibitor due to hyperkalemia Status post Kayexalate 30 g Continue monitor potassium level Encourage by mouth intake Discontinue telemetry Urinary tract infection Patient asymptomatic, no fever, leukocytosis, signs of infection Urine culture indicates enterococcus faecalis which is resistant to Cipro Discontinue Cipro, start Macrobid 100 mg twice daily for 10 days Hypertension: Blood pressure stable Amlodipine 10 mg daily carvedilol 25 bid, Imdur 60 daily Ischemic Cardiomyopathy/chronic systolic CHF LVEF 35% on echo 03/2015. Denies shortness of breath. Compensated. -Continue Coreg, Imdur, enalapril. -Could consider AICD if patient is able to consent, however patient is currently unable to consent -Fluid and sodium restrictions, follow volume status. Chronic kidney disease stage 3/4. Stable -Patient with intermittent worsening due to poor by mouth intake -Avoid nephrotoxins. -Monitor BMP intermittently Anemia with iron deficiency, hemoglobin stable Iron studies indicate iron 45, TIBC 232, ferritin 345 Continue ferrous sulfate 325 mg daily Continue monitor CBC intermittently Seborrhea dermatitis Hydrocortisone cream was started, continue for 2 weeks only Encourage proper hygiene Diabetic mellitus - Glucose was well controlled. All insulin discontinued. -accu-checks discontinued as patient's blood sugar well controlled and Hgb A1c 6.9. -continue diet control Peripheral arterial disease-stable. -Continue anticoagulation Constipation, patient having bowel movement every 2-3 days -Abdominal x-ray 02/16 indicates moderate amount of stool in the colon on the left side. -Milk of magnesia as needed. -MiraLAX, lactulose, Haydee-Colace daily, lactulose, MiraLAX -Dulcolax as needed DVT prophylaxis - patient on Coumadin Discharge Planning Patient is medically stable and has been cleared for discharge from medical perspective. Case management arranging discharge planning to assisted facility once a finding facility that'll accept the patient/insurance. Has accepting SNF in order to get Medicaid, and must have someone to sign him in. Case management following. 04/20/16 1422 [facility] IS EVALUATING TO ACCEPT. HAVE SPOKE WITH SISTER WHO WILL MEET WITH FACILITY ON MON. TO ADDRESS ANY NEEDS TO ASSIST IN PLACING PATIENT THERE. EVELIA BEAUCAHMP LPN/DALILA/CHARGE Truman Fulton Apr 24, 2016 09:27
[2016-04-24 20:00] VITALS: BP 142/89; PULSE 87; RESP 20; TEMP 98.2; O2SAT 98
[2016-04-24] MEDS: WARFARIN SOD 6 MG TAB PO SCH (20:37)
[2016-04-24] MEDS: ISOSORBIDE MONONITRATE 60 MG TAB PO SCH (20:40)
[2016-04-24] MEDS ORDERED: WARFARIN SOD 2.5 MG TAB PO ONE (21:00)
[2016-04-25 06:38] LABS: INTERNATIONAL NORMALIZED RATIO 2.3 RATIO; PROTHROMBIN TIME - PATIENT 26.1 SEC (9.8-11.6)
[2016-04-25 08:00] VITALS: BP 115/78; PULSE 73; RESP 18; TEMP 98.6; O2SAT 97
[2016-04-25] MEDS: ATORVASTATIN 40 MG TAB PO SCH (08:15)
[2016-04-25] MEDS: POLYETHYLENE GLYCOL 17 GM PKG PO SCH (08:15)
[2016-04-25] MEDS: NITROFURANTOIN MONOHYD MACROCR 100 MG CAP PO SCH ×2 (08:15→16:45)
[2016-04-25] MEDS: DOCUSATE SODIUM 50 MG/SENNA 8.6 MG TAB PO SCH ×2 (08:15→21:46)
[2016-04-25] MEDS: FERROUS SULFATE 325 MG (65 MG ELEMENTAL IRON) TAB PO SCH (08:16)
[2016-04-25] MEDS: CARVEDILOL 12.5 MG TAB PO SCH ×2 (08:16→21:45)
[2016-04-25] MEDS: HYDROCORTISONE 1% CREAM 30 GM TOPICAL SCH (08:16)
[2016-04-25] MEDS: QUEtiapine FUMARATE 100 MG TAB PO SCH ×2 (08:16→21:45)
[2016-04-25] MEDS: LACTULOSE SYRUP 20 GM/30 ML CUP PO SCH (08:17)
[2016-04-25] MEDS: EUCERIN CREAM 120 GM JAR TOPICAL SCH ×2 (08:22→21:46)
--- NOTE | 2016-04-25 15:04 | HHI.PR ---
Subjective Remarks Patient seen and examined today with Dr. Miller. Patient denies any new complaints. No change in clinical status. Objective Vitals Vital Signs Date Time Temp Pulse Resp B/P Pulse Ox O2 Delivery O2 Flow Rate FiO2 04/25/16 08:00 98.6 73 18 115/78 97 04/24/16 20:00 98.2 87 20 142/89 98 I/O 04/24/16 04/24/16 04/24/16 04/25/16 04/25/16 04/25/16 06:59 14:59 22:59 06:59 14:59 22:59 Intake Total 540 ml 360 ml 120 ml Balance 540 ml 360 ml 120 ml Intake Oral 540 ml 360 ml 120 ml # Voids 4 4 1 3 101 # Bowel Movements 0 0 Objective Remarks GENERAL: Well-developed, well-nourished, in no acute distress. Alert and orientated to person HEENT: Head is normocephalic without any lesions or masses noted. Facial features are symmetric. Extraocular muscles are intact. Conjunctivae were clear. NECK: Supple without any masses. Trachea midline no deviation. No JVD, CARDIAC: Regular rhythm, regular rate. S1/S2 are heard. No murmurs gallops or rubs. LUNGS: Clear to auscultation bilaterally. No wheeze, rhonchi or rales. No use of accessory muscles on inspiration or expiration. ABDOMEN: Soft, nontender. Nondistended. Bowel sounds heard in all 4 quadrants. No organomegaly or masses. Negative rebound, negative guarding. EXTREMITIES: No edema, pulses are equal bilaterally. No cyanosis or clubbing. Right tqpmv-vny-uckj amputation. NEUROLOGY: Mood and affect appear appropriate. Cranial nerves II through XII grossly intact. Moving all extremities, speech is clear Procedures None Urinary Catheter: No Vascular Central Line Catheter: No A/P Assessment and Plan 60-year-old male with admitted 10/14 with acute cortical infarct. Patient remains with significant cognitive deficit. Bilateral cerebrovascular accident, with Intermittent and persistent cognitive defect -MRI showed acute cortical infarct of the right cerebral peduncle to the pelvis , left thalamus punctate area of infarct -Neurology last seen patient on 11/13/15, recommended long-term anticoagulation -Continue with Statin. -Continue Coumadin daily and monitor INR/PT keep INR between 2 and 3, pharmacy consult for dosing. INR 2.3, -Reconsulted PT/OT, patient will require intermittent therapy while he remains in the hospital so he does not decompensate -Out of bed with nursing only. Patient was counseled to not get out of bed on his own. Fall risk due to cognitive deficit -Psychiatry reconsulted 02/17 for evaluation and appreciate recommendations on patient's cognition, agitation -Seroquel 100 mg daily and 150 mg at bedtime Hyperkalemia, likely combination of poor by mouth intake, DIALLO inhibitor, resolved Discontinue DIALLO inhibitor due to hyperkalemia Status post Kayexalate 30 g Continue monitor potassium level Encourage by mouth intake Discontinue telemetry Urinary tract infection Patient asymptomatic, no fever, leukocytosis, signs of infection Urine culture indicates enterococcus faecalis which is resistant to Cipro Discontinue Cipro, start Macrobid 100 mg twice daily for 10 days Hypertension: Blood pressure stable Amlodipine 10 mg daily carvedilol 25 bid, Imdur 60 daily Ischemic Cardiomyopathy/chronic systolic CHF LVEF 35% on echo 03/2015. Denies shortness of breath. Compensated. -Continue Coreg, Imdur, enalapril. -Could consider AICD if patient is able to consent, however patient is currently unable to consent -Fluid and sodium restrictions, follow volume status. Chronic kidney disease stage 3/4. Stable -Patient with intermittent worsening due to poor by mouth intake -Avoid nephrotoxins. -Monitor BMP intermittently Anemia with iron deficiency, hemoglobin stable Iron studies indicate iron 45, TIBC 232, ferritin 345 Continue ferrous sulfate 325 mg daily Continue monitor CBC intermittently Seborrhea dermatitis Hydrocortisone cream was started, continue for 2 weeks only Encourage proper hygiene Diabetic mellitus - Glucose was well controlled. All insulin discontinued. -accu-checks discontinued as patient's blood sugar well controlled and Hgb A1c 6.9. -continue diet control Peripheral arterial disease-stable. -Continue anticoagulation Constipation, patient having bowel movement every 2-3 days -Abdominal x-ray 02/16 indicates moderate amount of stool in the colon on the left side. -Milk of magnesia as needed. -MiraLAX, lactulose, Haydee-Colace daily, lactulose, MiraLAX -Dulcolax as needed DVT prophylaxis - patient on Coumadin Discharge Planning Patient is medically stable and has been cleared for discharge from medical perspective. Case management arranging discharge planning to snf facility once a finding facility that'll accept the patient/insurance. Has accepting SNF in order to get Medicaid, and must have someone to sign him in. Case management following. 04/20/16 1422 [facility] IS EVALUATING TO ACCEPT. HAVE SPOKE WITH SISTER WHO WILL MEET WITH FACILITY ON MON. TO ADDRESS ANY NEEDS TO ASSIST IN PLACING PATIENT THERE. EVELIA BEAUCHAMP LPN/DALILA/CHARGE Truman Fulton Apr 25, 2016 15:03
[2016-04-25 20:41] VITALS: BP 145/90; PULSE 86; RESP 14; TEMP 97.7; O2SAT 92
[2016-04-25] MEDS: WARFARIN SOD 6 MG TAB PO SCH (21:45)
[2016-04-25] MEDS: ISOSORBIDE MONONITRATE 60 MG TAB PO SCH (21:46)
[2016-04-26 06:20] LABS: INTERNATIONAL NORMALIZED RATIO 2.3 RATIO; PROTHROMBIN TIME - PATIENT 26.9 SEC (9.8-11.6)
[2016-04-26 08:00] VITALS: BP 109/80; PULSE 76; RESP 16; TEMP 98.8; O2SAT 97
[2016-04-26] MEDS: CARVEDILOL 12.5 MG TAB PO SCH ×2 (09:00→21:30)
[2016-04-26] MEDS: ATORVASTATIN 40 MG TAB PO SCH (09:09)
[2016-04-26] MEDS: POLYETHYLENE GLYCOL 17 GM PKG PO SCH (09:09)
[2016-04-26] MEDS: DOCUSATE SODIUM 50 MG/SENNA 8.6 MG TAB PO SCH ×2 (09:10→21:30)
[2016-04-26] MEDS: QUEtiapine FUMARATE 100 MG TAB PO SCH ×2 (09:10→21:31)
[2016-04-26] MEDS: NITROFURANTOIN MONOHYD MACROCR 100 MG CAP PO SCH ×2 (09:10→16:57)
[2016-04-26] MEDS: LACTULOSE SYRUP 20 GM/30 ML CUP PO SCH (09:10)
[2016-04-26] MEDS: FERROUS SULFATE 325 MG (65 MG ELEMENTAL IRON) TAB PO SCH (09:10)
[2016-04-26] MEDS: HYDROCORTISONE 1% CREAM 30 GM TOPICAL SCH (09:11)
[2016-04-26] MEDS: EUCERIN CREAM 120 GM JAR TOPICAL SCH ×2 (09:12→21:36)
--- NOTE | 2016-04-26 10:46 | HHI.PR ---
Subjective Remarks No complaints at this time. Objective Vitals Vital Signs Date Time Temp Pulse Resp B/P Pulse Ox O2 Delivery O2 Flow Rate FiO2 04/26/16 08:00 98.8 76 16 109/80 97 04/25/16 20:41 97.7 86 14 145/90 92 I/O 04/25/16 04/25/16 04/25/16 04/26/16 04/26/16 04/26/16 07:00 15:00 23:00 07:00 15:00 23:00 Intake Total 120 ml 480 ml 120 ml Balance 120 ml 480 ml 120 ml Intake Oral 120 ml 480 ml 120 ml # Voids 3 103 1 2 # Bowel Movements 0 0 Imaging Last Impressions Head CT 02/26/16 0000 Signed Impressions: Service Date/Time: Friday, February 26, 2016 20:28 - CONCLUSION: No bleed or other acute intracranial abnormality demonstrated. Old ischemic changes. Camacho Lyon MD Abdomen X-Ray 02/17/16 0000 Signed Impressions: Service Date/Time: Wednesday, February 17, 2016 12:13 - CONCLUSION: Moderate amount stool in the colon especially on the left side. There are some minimally prominent segments of small bowel in the upper abdomen. Camacho Santana MD Chest X-Ray 11/06/15 0000 Signed Impressions: Service Date/Time: Friday, November 06, 2015 11:35 - CONCLUSION: Compensated cardiomegaly, history of bypass otherwise negative. Superior most sternal wire is fractured. Didier Clay MD FACR Liver Ultrasound 10/30/15 0000 Signed Impressions: Service Date/Time: Friday, October 30, 2015 17:29 - CONCLUSION: 1. Cholelithiasis with probable gallbladder sludge and mild gallbladder distention. 2. Splenomegaly. Sameer Alexandra MD Modified Barium Swallow 10/27/15 0000 Signed Impressions: Service Date/Time: Tuesday, October 27, 2015 00:00 - CONCLUSION: Negative for penetration or aspiration. Please see speech pathology report. Tai Cohen MD Brain MRI 10/22/15 0000 Signed Impressions: Service Date/Time: September 14:38 - CONCLUSION: 1. No significant interval change is identified. There is stable restricted diffusion in the left basal ganglia representing an area of recent ischemia. There are no findings to indicate hemorrhagic transformation. The previously documented signal change within the right cerebral peduncle has nearly normalized. 2. Stable chronic white matter changes. Camacho Culp MD Neck Magnetic Resonance Angiography 10/21/15 0000 Signed Impressions: Service Date/Time: Wednesday, October 21, 2015 12:52 - CONCLUSION: . 1. Unremarkable MRA of the carotid arteries bilaterally. 2. Nonspecific possible collateral vessels in the soft tissues posterior to the right vertebral artery. The right verbal artery appears to be patent. If clinically indicated, a CTA could be performed for further evaluation. Abiodun Hall MD Head Magnetic Resonance Angiography 10/21/15 0000 Signed Impressions: Service Date/Time: Wednesday, October 21, 2015 12:52 - CONCLUSION: Unremarkable MRA of the brain. Abiodun Hall MD Objective Remarks General: No acute distress. Heart: Regular rate and rhythm. No murmur. Lungs: Clear to auscultation bilaterally. No wheezes, rales, or rhonchi. Breathing is nonlabored. Abdomen: Soft, nontender, nondistended. Extremities: No lower extremity edema. Right below-knee amputation. Psych: Alert, oriented to person. Procedures None Urinary Catheter: No Vascular Central Line Catheter: No A/P Problem List: (1) Acute kidney injury superimposed on CKD ICD Code: N17.9 Status: Acute (2) Hyperkalemia ICD Code: E87.5 Status: Acute (3) Cellulitis ICD Code: L03.90 Status: Resolved (4) Ischemic cardiomyopathy ICD Code: I25.5 Status: Chronic (5) Diabetes mellitus type 2 in obese ICD Code: E11.9 Status: Chronic (6) S/P BKA (below knee amputation) unilateral ICD Code: Z89.519 Status: Chronic (7) Acute metabolic encephalopathy ICD Code: G93.41 Status: Resolved (8) Bacteremia ICD Code: R78.81 Status: Resolved (9) Chronic systolic (congestive) heart failure ICD Code: I50.22 Status: Chronic (10) Venous stasis ulcer of left lower extremity ICD Code: I83.029 Status: Chronic (11) CVA (cerebral vascular accident) ICD Code: I63.9 Status: Chronic (12) Seborrheic dermatitis ICD Code: L21.9 Status: Chronic (13) Anemia ICD Code: D64.9 Status: Chronic (14) HTN (hypertension) ICD Code: I10 Status: Chronic (15) UTI (urinary tract infection) ICD Code: N39.0 Status: Resolved Assessment and Plan 1. Bilateral CVA with intermittent and persistent cognitive deficit: MRI showed acute cortical infarct of the right cerebral peduncle to the pelvis, left thalamus punctate area of infarct. Neurology last evaluated the patient on and recommended long-term anticoagulation. Continue Coumadin with goal INR between 2 and 3. Pharmacy consult for Coumadin dosing. Continue statin. Psychiatry recommended continuing Seroquel. Patient counseled to not get out of bed on his own. He is a fall risk secondary to cognitive deficit. 2. Hyperkalemia: Resolved. Likely a combination of poor oral intake, DIALLO inhibitor. 3. UTI: Asymptomatic. Urine culture grew enterococcus resistant to Cipro. 4. Hypertension: Blood pressure is stable. Continue amlodipine, carvedilol, Imdur. 5. Ischemic cardiomyopathy, chronic systolic congestive heart failure: Left ventricular ejection fraction 35% on echo in March 2015. Compensated. Asymptomatic. Continue Coreg, Imdur, enalapril. Patient unable to consent for AICD at this time. Continue fluid and sodium restriction. 6. Chronic kidney disease stage 3/4: Stable. Avoid nephrotoxins. 7. Anemia with iron deficiency: Stable. Continue ferrous sulfate daily. 8. Seborrheic dermatitis: Hydrocortisone cream 2 weeks. 9. Diabetes mellitus: Well controlled. Insulin discontinued. 10. Peripheral arterial disease: Stable. Continue anticoagulation. 11. Constipation: Patient having bowel movement every 2-3 days. Milk of magnesia as needed. MiraLAX, lactulose, Haydee-Colace daily. 12. DVT prophylaxis: Coumadin. Discharge Planning Patient has been medically cleared for discharge. Case management assisting with discharge planning. Plan for discharge to SNF once arrangements are made. Problem Qualifiers (1) Cellulitis: (2) S/P BKA (below knee amputation) unilateral: Qualified Code: Z89.511 - S/P BKA (below knee amputation) unilateral, right (3) CVA (cerebral vascular accident): Qualified Code: I63.9 - Cerebrovascular accident (CVA), unspecified mechanism Truman Miller MD Apr 26, 2016 10:45
--- NOTE | 2016-04-26 14:33 | MB ---
cc: NICOLE KAYE DATE OF CONSULTATION 04/21/2016 REASON FOR CONSULTATION Left digits with elongated painful nails HISTORY OF PRESENT ILLNESS Mr. Fishman is a 60 year-old patient admitted to [facility] in September of this year. He was found unresponsive on the floor by family members. At this time, he had a left lower extremity ulceration with cellulitis which has since resolved. His only complaint at this time is the elongated nails of the left lower extremity. PAST MEDICAL HISTORY Includes: 1. Coronary artery disease 2. Hypertension 3. Hyperlipidemia 4. Diabetes mellitus 5. Congestive heart failure 6. Obesity 7. Peripheral arterial disease 8. Obstructive sleep apnea PAST SURGICAL HISTORY Includes: 1. CABG 2. Left kidney stent 3. Tracheotomy as a child 4. Right below the knee amputation ALLERGIES PENICILLIN AND ASPARTAME FAMILY HISTORY Noncontributory SOCIAL HISTORY Noncontributory PHYSICAL EXAMINATION The patient had a right below-knee amputation. Left foot had diminished PT and DP pulses. The cap fill time is within normal limits. No open lesions or wounds. In the legs the nail plates were elongated, thickened and discolored. ASSESSMENT/PLAN 1. Left foot, onychomycosis. 2. Status post bedside debridement 3. We will sign off for now. Nursing staff as to call and reconsult if there are any changes to the patient's current condition. Nicole LINDSEY/DJL /12:55 PM /2:29 PM
[2016-04-26 20:00] VITALS: BP 151/97; PULSE 93; RESP 20; TEMP 98.3; O2SAT 96
[2016-04-26] MEDS: WARFARIN SOD 6 MG TAB PO SCH (21:29)
[2016-04-26] MEDS: ISOSORBIDE MONONITRATE 60 MG TAB PO SCH (21:30)
[2016-04-27 06:30] LABS: INTERNATIONAL NORMALIZED RATIO 2.4 RATIO; PROTHROMBIN TIME - PATIENT 27.9 SEC (9.8-11.6)
[2016-04-27] MEDS: LACTULOSE SYRUP 20 GM/30 ML CUP PO SCH (08:24)
[2016-04-27] MEDS: CARVEDILOL 12.5 MG TAB PO SCH ×2 (08:29→20:53)
[2016-04-27] MEDS: QUEtiapine FUMARATE 100 MG TAB PO SCH ×2 (08:29→20:53)
[2016-04-27] MEDS: NITROFURANTOIN MONOHYD MACROCR 100 MG CAP PO SCH ×2 (08:29→17:25)
[2016-04-27] MEDS: DOCUSATE SODIUM 50 MG/SENNA 8.6 MG TAB PO SCH ×2 (08:29→20:53)
[2016-04-27] MEDS: FERROUS SULFATE 325 MG (65 MG ELEMENTAL IRON) TAB PO SCH (08:29)
[2016-04-27] MEDS: POLYETHYLENE GLYCOL 17 GM PKG PO SCH (08:29)
[2016-04-27] MEDS: EUCERIN CREAM 120 GM JAR TOPICAL SCH ×2 (08:30→20:37)
[2016-04-27] MEDS: HYDROCORTISONE 1% CREAM 30 GM TOPICAL SCH (08:33)
[2016-04-27] MEDS: ATORVASTATIN 40 MG TAB PO SCH (08:33)
[2016-04-27 09:57] VITALS: BP 116/81; PULSE 91; RESP 20; TEMP 98.7; O2SAT 95
--- NOTE | 2016-04-27 11:51 | HHI.PR ---
Subjective Remarks Admits to feeling down, but no change in clinical status. Objective Vitals Vital Signs Date Time Temp Pulse Resp B/P Pulse Ox O2 Delivery O2 Flow Rate FiO2 04/27/16 09:57 98.7 91 20 116/81 95 04/26/16 20:00 98.3 93 20 151/97 96 I/O 04/26/16 04/26/16 04/26/16 04/27/16 04/27/16 04/27/16 06:59 14:59 22:59 06:59 14:59 22:59 Intake Total 120 ml 360 ml 360 ml 60 ml Balance 120 ml 360 ml 360 ml 60 ml Intake Oral 120 ml 360 ml 360 ml 60 ml # Voids 2 3 0 3 # Bowel Movements 0 0 0 Objective Remarks GENERAL: Well-nourished, well-developed male in no apparent distress sitting in recliner. Hair well groomed. SKIN: Warm and dry. Redness over the chin and only mild flaking to the nose, dermatitis appears improved. CARDIOVASCULAR: Regular rate and rhythm. RESPIRATORY: Limited anterior exam. No accessory muscle use. Clear to auscultation bilaterally. NEUROLOGICAL: Awake and alert. Procedures None Urinary Catheter: No Vascular Central Line Catheter: No A/P Problem List: (1) Acute kidney injury superimposed on CKD ICD Code: N17.9 Status: Acute (2) Hyperkalemia ICD Code: E87.5 Status: Acute (3) Cellulitis ICD Code: L03.90 Status: Resolved (4) Ischemic cardiomyopathy ICD Code: I25.5 Status: Chronic (5) Diabetes mellitus type 2 in obese ICD Code: E11.9 Status: Chronic (6) S/P BKA (below knee amputation) unilateral ICD Code: Z89.519 Status: Chronic (7) Acute metabolic encephalopathy ICD Code: G93.41 Status: Resolved (8) Bacteremia ICD Code: R78.81 Status: Resolved (9) Chronic systolic (congestive) heart failure ICD Code: I50.22 Status: Chronic (10) Venous stasis ulcer of left lower extremity ICD Code: I83.029 Status: Chronic (11) CVA (cerebral vascular accident) ICD Code: I63.9 Status: Chronic (12) Seborrheic dermatitis ICD Code: L21.9 Status: Chronic (13) Anemia ICD Code: D64.9 Status: Chronic (14) HTN (hypertension) ICD Code: I10 Status: Chronic (15) UTI (urinary tract infection) ICD Code: N39.0 Status: Resolved Assessment and Plan 60-year-old male with admitted 10/14 with acute cortical infarct. Patient remains with significant cognitive deficit. Bilateral cerebrovascular accident, with Intermittent and persistent cognitive defect -MRI showed acute cortical infarct of the right cerebral peduncle to the pelvis , left thalamus punctate area of infarct -Neurology last seen patient on 11/13/15, recommended long-term anticoagulation -Continue with Statin. -Continue Coumadin 5 mg daily and monitor INR/PT keep INR between 2 and 3, pharmacy consult for dosing. INR 2.4; patient has been compliant with medication. -Reconsulted PT/OT, patient will require intermittent therapy while he remains in the hospital so he does not decompensate -Out of bed with nursing only. Patient was counseled to not get out of bed on his own. Fall risk due to cognitive deficit -Psychiatry reconsulted 02/17 for evaluation and appreciate recommendations on patient's cognition, agitation, and medication non-compliance -Seroquel 100 mg daily and 150 mg at bedtime PAT superimposed on Stage 3 CKD: Improved. Due to poor fluid intake. -S/p IV normal saline -DIALLO inhibitor was discontinued. -Monitor intake and output -Avoid nephrotoxins. -Monitor BMP intermittently Hyperkalemia: Resolved. Likely combination of poor by mouth intake, DIALLO inhibitor DIALLO inhibitor discontinued due to hyperkalemia Status post Kayexalate Continue to monitor potassium level periodically Encourage by mouth intake Discontinue telemetry Urinary tract infection Patient asymptomatic, no fever, leukocytosis, or signs of infection Urine culture indicates enterococcus faecalis which is resistant to Cipro Cipro discontinued. Continue treatment with Macrobid 100 mg twice daily for 10 days Hypertension: Blood pressure stable Amlodipine 10 mg daily Carvedilol 25 bid Imdur 60 daily Ischemic Cardiomyopathy/chronic systolic CHF LVEF 35% on echo 03/2015. Denies shortness of breath. Compensated. -Continue Coreg, Imdur. DIALLO discontinued due to impaired renal function/ hyperkalemia. -Could consider AICD if patient is able to consent, however patient is currently unable to consent -Fluid and sodium restrictions, follow volume status. Anemia with iron deficiency, hemoglobin stable Iron studies indicate iron 45, TIBC 232, ferritin 345 Continue ferrous sulfate 325 mg daily Continue monitor CBC intermittently Seborrhea dermatitis: Improved. Hydrocortisone cream, continue for 2 weeks only Encourage proper hygiene Diabetic mellitus - Glucose was well controlled. All insulin discontinued. -Accu-checks discontinued as patient's blood sugar well controlled and Hgb A1c 6.9. -continue diet control Peripheral arterial disease-stable. -Continue anticoagulation Constipation: -Abdominal x-ray 02/16 indicates moderate amount of stool in the colon on the left side. -Milk of magnesia as needed. -MiraLAX, lactulose, Haydee-Colace daily, lactulose, MiraLAX -Dulcolax as needed DVT prophylaxis - patient on Coumadin Discharge Planning Awaiting placement. PT at rehab recommended. OT recommends 3-1 bedside commode , shower bench, and long-term care facility with restorative services. [facility] is evaluating patient to accept. Problem Qualifiers (1) Cellulitis: (2) S/P BKA (below knee amputation) unilateral: Qualified Code: Z89.511 - S/P BKA (below knee amputation) unilateral, right (3) CVA (cerebral vascular accident): Qualified Code: I63.9 - Cerebrovascular accident (CVA), unspecified mechanism Jennifer Mae Apr 27, 2016 11:51 (2) S/P BKA (below knee amputation) unilateral: Qualified Code: Z89.511 - S/P BKA (below knee amputation) unilateral, right (3) CVA (cerebral vascular accident): Qualified Code: I63.9 - Cerebrovascular accident (CVA), unspecified mechanism Jennifer Mae Apr 27, 2016 11:51
[2016-04-27 20:00] VITALS: BP 135/81; PULSE 74; RESP 18; TEMP 96.7; O2SAT 97
[2016-04-27] MEDS: ISOSORBIDE MONONITRATE 60 MG TAB PO SCH (20:53)
[2016-04-27] MEDS: WARFARIN SOD 6 MG TAB PO SCH (20:53)
[2016-04-28] VITALS: BP 112/68; PULSE 72; TEMP 96.4
[2016-04-28 05:25] LABS: INTERNATIONAL NORMALIZED RATIO 3.2 RATIO; PROTHROMBIN TIME - PATIENT 36.8 SEC (9.8-11.6)
[2016-04-28 08:00] VITALS: BP 149/91; PULSE 77; RESP 16; TEMP 95.9; O2SAT 99
[2016-04-28] MEDS: NITROFURANTOIN MONOHYD MACROCR 100 MG CAP PO SCH ×2 (08:10→16:27)
[2016-04-28] MEDS: LACTULOSE SYRUP 20 GM/30 ML CUP PO SCH (08:10)
[2016-04-28] MEDS: POLYETHYLENE GLYCOL 17 GM PKG PO SCH (08:11)
[2016-04-28] MEDS: ATORVASTATIN 40 MG TAB PO SCH (08:11)
[2016-04-28] MEDS: QUEtiapine FUMARATE 100 MG TAB PO SCH ×2 (08:11→19:39)
[2016-04-28] MEDS: DOCUSATE SODIUM 50 MG/SENNA 8.6 MG TAB PO SCH ×2 (08:11→19:39)
[2016-04-28] MEDS: FERROUS SULFATE 325 MG (65 MG ELEMENTAL IRON) TAB PO SCH (08:11)
[2016-04-28] MEDS: CARVEDILOL 12.5 MG TAB PO SCH ×2 (08:13→19:40)
[2016-04-28] MEDS: EUCERIN CREAM 120 GM JAR TOPICAL SCH ×2 (08:17→19:44)
[2016-04-28] MEDS: HYDROCORTISONE 1% CREAM 30 GM TOPICAL SCH (08:17)
--- NOTE | 2016-04-28 11:18 | HHI.PR ---
Subjective Remarks No acute complaints. No change in clinical status. Objective Vitals Vital Signs Date Time Temp Pulse Resp B/P Pulse Ox O2 Delivery O2 Flow Rate FiO2 04/28/16 08:00 95.9 77 16 149/91 99 04/28/16 00:00 96.4 72 112/68 04/27/16 20:00 96.7 74 18 135/81 97 I/O 04/27/16 04/27/16 04/27/16 04/28/16 04/28/16 04/28/16 06:59 14:59 22:59 06:59 14:59 22:59 Intake Total 60 ml 0 ml 0 ml Output Total 300 ml Balance 60 ml 0 ml -300 ml Intake Oral 60 ml IV Total 0 ml 0 ml Output Urine Total 300 ml # Voids 3 1 3 # Bowel Movements 0 Objective Remarks GENERAL: Well-nourished, well-developed male in no apparent distress sitting in dayroom watching TV. Hair well groomed. SKIN: Warm and dry. Only mild redness and flaking over the chin. Rash no longer evident over the nose or cheeks. CARDIOVASCULAR: Regular rate and rhythm. RESPIRATORY: Limited anterior exam. No accessory muscle use. Clear to auscultation bilaterally. GASTROINTESTINAL: Abdomen soft, nontender, nondistended. NEUROLOGICAL: Awake and alert. Procedures None Urinary Catheter: No Vascular Central Line Catheter: No A/P Problem List: (1) Acute kidney injury superimposed on CKD ICD Code: N17.9 Status: Acute (2) Hyperkalemia ICD Code: E87.5 Status: Acute (3) Cellulitis ICD Code: L03.90 Status: Resolved (4) Ischemic cardiomyopathy ICD Code: I25.5 Status: Chronic (5) Diabetes mellitus type 2 in obese ICD Code: E11.9 Status: Chronic (6) S/P BKA (below knee amputation) unilateral ICD Code: Z89.519 Status: Chronic (7) Acute metabolic encephalopathy ICD Code: G93.41 Status: Resolved (8) Bacteremia ICD Code: R78.81 Status: Resolved (9) Chronic systolic (congestive) heart failure ICD Code: I50.22 Status: Chronic (10) Venous stasis ulcer of left lower extremity ICD Code: I83.029 Status: Chronic (11) CVA (cerebral vascular accident) ICD Code: I63.9 Status: Chronic (12) Seborrheic dermatitis ICD Code: L21.9 Status: Chronic (13) Anemia ICD Code: D64.9 Status: Chronic (14) HTN (hypertension) ICD Code: I10 Status: Chronic (15) UTI (urinary tract infection) ICD Code: N39.0 Status: Resolved Assessment and Plan 60-year-old male with admitted 10/14 with acute cortical infarct. Patient remains with significant cognitive deficit. Bilateral cerebrovascular accident, with Intermittent and persistent cognitive defect -MRI showed acute cortical infarct of the right cerebral peduncle to the pelvis , left thalamus punctate area of infarct -Neurology last seen patient on 11/13/15, recommended long-term anticoagulation -Continue with Statin. -Continue Coumadin 5 mg daily and monitor INR/PT keep INR between 2 and 3. INR 3.2 today; pharmacy to adjust dosing. -Reconsulted PT/OT, patient will require intermittent therapy while he remains in the hospital so he does not decompensate -Out of bed with nursing only. Patient was counseled to not get out of bed on his own. Fall risk due to cognitive deficit -Psychiatry reconsulted 02/17 for evaluation and appreciate recommendations on patient's cognition, agitation, and medication non-compliance -Seroquel 100 mg daily and 150 mg at bedtime PAT superimposed on Stage 3 CKD: Improved. Due to poor fluid intake. -S/p IV normal saline -DIALLO inhibitor was discontinued. -Monitor intake and output -Avoid nephrotoxins. -Monitor BMP intermittently Hyperkalemia: Resolved. Likely combination of poor by mouth intake and DIALLO inhibitor DIALLO inhibitor discontinued due to hyperkalemia Status post Kayexalate Continue to monitor potassium level periodically Encourage by mouth intake Discontinue telemetry Urinary tract infection Patient asymptomatic, no fever, leukocytosis, or signs of infection Urine culture indicates enterococcus faecalis which is resistant to Cipro Cipro discontinued. Continue treatment with Macrobid 100 mg twice daily for total 10 days Hypertension: Blood pressure elevated this morning at 149/91, but was normal yesterday. Hypertension is not persistent. Amlodipine 10 mg daily Carvedilol 25 bid Imdur 60 daily Continue to monitor and adjust medications as needed as patient does need tight blood pressure control due to CVAs. Ischemic Cardiomyopathy/chronic systolic CHF LVEF 35% on echo 03/2015. Denies shortness of breath. Compensated. -Continue Coreg, Imdur. DIALLO discontinued due to impaired renal function/ hyperkalemia. -Could consider AICD if patient is able to consent, however patient is currently unable to consent -Fluid and sodium restrictions, follow volume status. Anemia with iron deficiency, hemoglobin stable Iron studies indicate iron 45, TIBC 232, ferritin 345 Continue ferrous sulfate 325 mg daily Continue monitor CBC intermittently Seborrhea dermatitis: Significantly improved. Hydrocortisone cream, continue for 2 weeks only Encourage proper hygiene Diabetic mellitus - Glucose was well controlled. All insulin discontinued. -Accu-checks discontinued as patient's blood sugar well controlled and Hgb A1c 6.9. -continue diet control Peripheral arterial disease-stable. -Continue anticoagulation Constipation: -Abdominal x-ray 02/16 indicates moderate amount of stool in the colon on the left side. -Milk of magnesia as needed. -MiraLAX, lactulose, Haydee-Colace daily, lactulose, MiraLAX -Dulcolax as needed DVT prophylaxis - patient on Coumadin Discharge Planning Awaiting placement. PT at rehab recommended. OT recommends 3-1 bedside commode , shower bench, and long-term care facility with restorative services. [facility] is evaluating patient to accept. Problem Qualifiers (1) Cellulitis: (2) S/P BKA (below knee amputation) unilateral: Qualified Code: Z89.511 - S/P BKA (below knee amputation) unilateral, right (3) CVA (cerebral vascular accident): Qualified Code: I63.9 - Cerebrovascular accident (CVA), unspecified mechanism Jennifer Mae Apr 28, 2016 11:18
[2016-04-28] MEDS: ISOSORBIDE MONONITRATE 60 MG TAB PO SCH (19:40)
[2016-04-28 20:00] VITALS: BP 142/92; PULSE 84; RESP 18; TEMP 98.4; O2SAT 97
[2016-04-29 08:00] VITALS: BP 136/93; PULSE 76; RESP 18; TEMP 98.7; O2SAT 98
[2016-04-29 08:29] LABS: PROTHROMBIN TIME - PATIENT 22.8 SEC (9.8-11.6)
[2016-04-29] MEDS: LACTULOSE SYRUP 20 GM/30 ML CUP PO SCH (08:52)
[2016-04-29] MEDS: QUEtiapine FUMARATE 100 MG TAB PO SCH ×2 (09:35→21:13)
[2016-04-29] MEDS: FERROUS SULFATE 325 MG (65 MG ELEMENTAL IRON) TAB PO SCH (09:35)
[2016-04-29] MEDS: NITROFURANTOIN MONOHYD MACROCR 100 MG CAP PO SCH ×2 (09:35→17:29)
[2016-04-29] MEDS: CARVEDILOL 12.5 MG TAB PO SCH ×2 (09:36→21:07)
[2016-04-29] MEDS: DOCUSATE SODIUM 50 MG/SENNA 8.6 MG TAB PO SCH ×2 (09:36→21:12)
[2016-04-29] MEDS: ATORVASTATIN 40 MG TAB PO SCH (09:36)
[2016-04-29] MEDS: POLYETHYLENE GLYCOL 17 GM PKG PO SCH (09:36)
[2016-04-29] MEDS: EUCERIN CREAM 120 GM JAR TOPICAL SCH ×2 (09:43→21:16)
--- NOTE | 2016-04-29 18:11 | HHI.PR ---
Subjective Remarks Patient eating pudding with a knife. No change in clinical status. Objective Vitals Vital Signs Date Time Temp Pulse Resp B/P Pulse Ox O2 Delivery O2 Flow Rate FiO2 04/29/16 08:00 98.7 76 18 136/93 98 04/28/16 20:00 98.4 84 18 142/92 97 I/O 04/28/16 04/28/16 04/28/16 04/29/16 04/29/16 04/29/16 07:00 15:00 23:00 07:00 15:00 23:00 Intake Total 0 ml 1440 ml 240 ml 240 ml 600 ml Output Total 300 ml 200 ml Balance -300 ml 1440 ml 240 ml 40 ml 600 ml Intake Oral 1440 ml 240 ml 240 ml 600 ml IV Total 0 ml Output Urine Total 300 ml 200 ml # Voids 3 3 1 2 # Bowel Movements 1 0 0 0 Objective Remarks GENERAL: Well-nourished, well-developed male in no apparent distress. SKIN: Warm and dry. Only mild redness over the chin, and lightly over the nose and cheeks. Flaking is much improved. CARDIOVASCULAR: Regular rate and rhythm. RESPIRATORY: Limited anterior exam. No accessory muscle use. Clear to auscultation bilaterally. GASTROINTESTINAL: Abdomen soft, nontender, nondistended. NEUROLOGICAL: Awake and alert, but focused on eating his pudding and fails to make eye contact when requested. Procedures None Urinary Catheter: No Vascular Central Line Catheter: No A/P Problem List: (1) Acute kidney injury superimposed on CKD ICD Code: N17.9 Status: Acute (2) Hyperkalemia ICD Code: E87.5 Status: Acute (3) Cellulitis ICD Code: L03.90 Status: Resolved (4) Ischemic cardiomyopathy ICD Code: I25.5 Status: Chronic (5) Diabetes mellitus type 2 in obese ICD Code: E11.9 Status: Chronic (6) S/P BKA (below knee amputation) unilateral ICD Code: Z89.519 Status: Chronic (7) Acute metabolic encephalopathy ICD Code: G93.41 Status: Resolved (8) Bacteremia ICD Code: R78.81 Status: Resolved (9) Chronic systolic (congestive) heart failure ICD Code: I50.22 Status: Chronic (10) Venous stasis ulcer of left lower extremity ICD Code: I83.029 Status: Chronic (11) CVA (cerebral vascular accident) ICD Code: I63.9 Status: Chronic (12) Seborrheic dermatitis ICD Code: L21.9 Status: Chronic (13) Anemia ICD Code: D64.9 Status: Chronic (14) HTN (hypertension) ICD Code: I10 Status: Chronic (15) UTI (urinary tract infection) ICD Code: N39.0 Status: Resolved Assessment and Plan 60-year-old male with admitted 10/14 with acute cortical infarct. Patient remains with significant cognitive deficit. Bilateral cerebrovascular accident, with Intermittent and persistent cognitive defect -MRI showed acute cortical infarct of the right cerebral peduncle to the pelvis , left thalamus punctate area of infarct -Neurology last seen patient on 11/13/15, recommended long-term anticoagulation -Continue with Statin. -Continue Coumadin 5 mg daily and monitor INR/PT keep INR between 2 and 3. INR 2.0 today; pharmacy to adjust dosing. -Reconsulted PT/OT, patient will require intermittent therapy while he remains in the hospital so he does not decompensate -Out of bed with nursing only. Patient was counseled to not get out of bed on his own. Fall risk due to cognitive deficit -Psychiatry reconsulted 02/17 for evaluation and appreciate recommendations on patient's cognition, agitation, and medication non-compliance -Seroquel 100 mg daily and 150 mg at bedtime PAT superimposed on Stage 3 CKD: Improved. Due to poor fluid intake. -S/p IV normal saline -DIALLO inhibitor was discontinued. -Monitor intake and output -Avoid nephrotoxins. -Monitor BMP intermittently Hyperkalemia: Resolved. Likely combination of poor by mouth intake and DIALLO inhibitor DIALLO inhibitor discontinued due to hyperkalemia Status post Kayexalate Continue to monitor potassium level periodically Encourage by mouth intake Discontinue telemetry Urinary tract infection Patient asymptomatic, no fever, leukocytosis, or signs of infection Urine culture indicates enterococcus faecalis which is resistant to Cipro Cipro discontinued. Continue treatment with Macrobid 100 mg twice daily for total 10 days Hypertension: Blood pressure elevated this morning at 149/91, but was normal yesterday. Hypertension is not persistent. Amlodipine 10 mg daily Carvedilol 25 bid Imdur 60 daily Continue to monitor and adjust medications as needed as patient does need tight blood pressure control due to CVAs. Ischemic Cardiomyopathy/chronic systolic CHF LVEF 35% on echo 03/2015. Denies shortness of breath. Compensated. -Continue Coreg, Imdur. DIALLO discontinued due to impaired renal function/ hyperkalemia. -Could consider AICD if patient is able to consent, however patient is currently unable to consent -Fluid and sodium restrictions, follow volume status. Anemia with iron deficiency, hemoglobin stable Iron studies indicate iron 45, TIBC 232, ferritin 345 Continue ferrous sulfate 325 mg daily Continue monitor CBC intermittently Seborrhea dermatitis: Significantly improved. S/p Hydrocortisone cream x 2 weeks Encourage proper hygiene Diabetic mellitus - Glucose was well controlled. All insulin discontinued. -Accu-checks discontinued as patient's blood sugar well controlled and Hgb A1c 6.9. -continue diet control Peripheral arterial disease-stable. -Continue anticoagulation Constipation: -Abdominal x-ray 02/16 indicates moderate amount of stool in the colon on the left side. -Milk of magnesia as needed. -MiraLAX, lactulose, Haydee-Colace daily, lactulose, MiraLAX -Dulcolax as needed DVT prophylaxis - patient on Coumadin Discharge Planning Awaiting placement. PT at rehab recommended. OT recommends 3-1 bedside commode , shower bench, and long-term care facility with restorative services. [facility] is evaluating patient to accept. Problem Qualifiers (1) Cellulitis: (2) S/P BKA (below knee amputation) unilateral: Qualified Code: Z89.511 - S/P BKA (below knee amputation) unilateral, right (3) CVA (cerebral vascular accident): Qualified Code: I63.9 - Cerebrovascular accident (CVA), unspecified mechanism Jennifer Mae Apr 29, 2016 18:11
[2016-04-29 20:27] VITALS: BP 139/87; PULSE 74; RESP 18; TEMP 98.6; O2SAT 97
[2016-04-29] MEDS: WARFARIN SOD 6 MG TAB PO SCH (21:09)
[2016-04-29] MEDS: ISOSORBIDE MONONITRATE 60 MG TAB PO SCH (21:11)
[2016-04-30 06:39] LABS: INTERNATIONAL NORMALIZED RATIO 1.5 RATIO; PROTHROMBIN TIME - PATIENT 17.3 SEC (9.8-11.6)
[2016-04-30 08:00] VITALS: BP 130/77; PULSE 88; RESP 18; TEMP 97.8; O2SAT 96
[2016-04-30] MEDS: POLYETHYLENE GLYCOL 17 GM PKG PO SCH (08:20)
[2016-04-30] MEDS: ATORVASTATIN 40 MG TAB PO SCH (08:20)
[2016-04-30] MEDS: LACTULOSE SYRUP 20 GM/30 ML CUP PO SCH (08:20)
[2016-04-30] MEDS: QUEtiapine FUMARATE 100 MG TAB PO SCH ×2 (08:21→20:28)
[2016-04-30] MEDS: FERROUS SULFATE 325 MG (65 MG ELEMENTAL IRON) TAB PO SCH (08:21)
[2016-04-30] MEDS: NITROFURANTOIN MONOHYD MACROCR 100 MG CAP PO SCH ×2 (08:21→17:23)
[2016-04-30] MEDS: CARVEDILOL 12.5 MG TAB PO SCH ×2 (08:21→20:27)
[2016-04-30] MEDS: DOCUSATE SODIUM 50 MG/SENNA 8.6 MG TAB PO SCH ×2 (08:21→20:27)
[2016-04-30] MEDS: EUCERIN CREAM 120 GM JAR TOPICAL SCH ×2 (08:22→20:29)
--- NOTE | 2016-04-30 16:18 | HHI.PR ---
Subjective Remarks No acute complaints. No change in clinical status. Objective Vitals Vital Signs Date Time Temp Pulse Resp B/P Pulse Ox O2 Delivery O2 Flow Rate FiO2 04/30/16 08:00 97.8 88 18 130/77 96 04/29/16 20:27 98.6 74 18 139/87 97 I/O 04/29/16 04/29/16 04/29/16 04/30/16 04/30/16 04/30/16 07:00 15:00 23:00 07:00 15:00 23:00 Intake Total 240 ml 600 ml Output Total 200 ml Balance 40 ml 600 ml Intake Oral 240 ml 600 ml Output Urine Total 200 ml # Voids 2 2 11 # Bowel Movements 0 0 2 Objective Remarks GENERAL: Well-nourished, well-developed male in no apparent distress. SKIN: Warm and dry. CARDIOVASCULAR: Regular rate and rhythm. RESPIRATORY: Limited anterior exam. No accessory muscle use. Clear to auscultation bilaterally. GASTROINTESTINAL: Abdomen soft, nontender, nondistended. NEUROLOGICAL: Awake and alert, but focused on watching TV. Does not make eye contact. Procedures None Urinary Catheter: No Vascular Central Line Catheter: No A/P Problem List: (1) Acute kidney injury superimposed on CKD ICD Code: N17.9 Status: Acute (2) Hyperkalemia ICD Code: E87.5 Status: Acute (3) Cellulitis ICD Code: L03.90 Status: Resolved (4) Ischemic cardiomyopathy ICD Code: I25.5 Status: Chronic (5) Diabetes mellitus type 2 in obese ICD Code: E11.9 Status: Chronic (6) S/P BKA (below knee amputation) unilateral ICD Code: Z89.519 Status: Chronic (7) Acute metabolic encephalopathy ICD Code: G93.41 Status: Resolved (8) Bacteremia ICD Code: R78.81 Status: Resolved (9) Chronic systolic (congestive) heart failure ICD Code: I50.22 Status: Chronic (10) Venous stasis ulcer of left lower extremity ICD Code: I83.029 Status: Chronic (11) CVA (cerebral vascular accident) ICD Code: I63.9 Status: Chronic (12) Seborrheic dermatitis ICD Code: L21.9 Status: Chronic (13) Anemia ICD Code: D64.9 Status: Chronic (14) HTN (hypertension) ICD Code: I10 Status: Chronic (15) UTI (urinary tract infection) ICD Code: N39.0 Status: Resolved Assessment and Plan 60-year-old male with admitted 10/14 with acute cortical infarct. Patient remains with significant cognitive deficit. Bilateral cerebrovascular accident, with Intermittent and persistent cognitive defect -MRI showed acute cortical infarct of the right cerebral peduncle to the pelvis , left thalamus punctate area of infarct -Neurology last seen patient on 11/13/15, recommended long-term anticoagulation -Continue with Statin. -Continue Coumadin 5 mg daily and monitor INR/PT keep INR between 2 and 3. INR 1.5 today; pharmacy to adjust dosing. -Reconsulted PT/OT, patient will require intermittent therapy while he remains in the hospital so he does not decompensate -Out of bed with nursing only. Patient was counseled to not get out of bed on his own. Fall risk due to cognitive deficit -Psychiatry reconsulted 02/17 for evaluation and appreciate recommendations on patient's cognition, agitation, and medication non-compliance -Seroquel 100 mg daily and 150 mg at bedtime PAT superimposed on Stage 3 CKD: Improved. Due to poor fluid intake. -S/p IV normal saline -DIALLO inhibitor was discontinued. -Monitor intake and output -Avoid nephrotoxins. -Monitor BMP intermittently Hyperkalemia: Resolved. Likely combination of poor by mouth intake and DIALLO inhibitor DIALLO inhibitor discontinued due to hyperkalemia Status post Kayexalate Continue to monitor potassium level periodically Encourage by mouth intake Urinary tract infection Patient asymptomatic, no fever, leukocytosis, or signs of infection Urine culture indicates enterococcus faecalis which is resistant to Cipro Cipro discontinued. Continue treatment with Macrobid 100 mg twice daily for total 10 days Hypertension: Amlodipine 10 mg daily Carvedilol 25 bid Imdur 60 daily Continue to monitor and adjust medications as needed as patient does need tight blood pressure control due to CVAs. Ischemic Cardiomyopathy/chronic systolic CHF LVEF 35% on echo 03/2015. Denies shortness of breath. Compensated. -Continue Coreg, Imdur. DIALLO discontinued due to impaired renal function/ hyperkalemia. -Could consider AICD if patient is able to consent, however patient is currently unable to consent -Fluid and sodium restrictions, follow volume status. Anemia with iron deficiency, hemoglobin stable Iron studies indicate iron 45, TIBC 232, ferritin 345 Continue ferrous sulfate 325 mg daily Continue monitor CBC intermittently Seborrhea dermatitis: Significantly improved. S/p Hydrocortisone cream x 2 weeks Encourage proper hygiene Diabetic mellitus - Glucose was well controlled. All insulin discontinued. -Accu-checks discontinued as patient's blood sugar well controlled and Hgb A1c 6.9. -continue diet control Peripheral arterial disease-stable. -Continue anticoagulation Constipation: -Abdominal x-ray 02/16 indicates moderate amount of stool in the colon on the left side. -Milk of magnesia as needed. -MiraLAX, lactulose, Haydee-Colace daily, lactulose, MiraLAX -Dulcolax as needed DVT prophylaxis - patient on Coumadin Discharge Planning Awaiting placement. PT at rehab recommended. OT recommends 3-1 bedside commode , shower bench, and long-term care facility with restorative services. [facility] is evaluating patient to accept. Problem Qualifiers (1) Cellulitis: (2) S/P BKA (below knee amputation) unilateral: Qualified Code: Z89.511 - S/P BKA (below knee amputation) unilateral, right (3) CVA (cerebral vascular accident): Qualified Code: I63.9 - Cerebrovascular accident (CVA), unspecified mechanism Jennifer Mae Apr 30, 2016 16:18
[2016-04-30 20:00] VITALS: BP 142/83; PULSE 86; RESP 18; TEMP 98.6; O2SAT 98
[2016-04-30] MEDS: WARFARIN SOD 6 MG TAB PO SCH (20:26)
[2016-04-30] MEDS: ISOSORBIDE MONONITRATE 60 MG TAB PO SCH (20:28)
[2016-04-30] MEDS ORDERED: WARFARIN SOD 2 MG TAB PO ONE (21:00)
[2016-05-01 07:00] LABS: INTERNATIONAL NORMALIZED RATIO 1.5 RATIO; PROTHROMBIN TIME - PATIENT 16.6 SEC (9.8-11.6)
[2016-05-01 08:00] VITALS: BP 132/80; PULSE 82; RESP 18; TEMP 98.7; O2SAT 95
[2016-05-01] MEDS: POLYETHYLENE GLYCOL 17 GM PKG PO SCH (09:00)
[2016-05-01] MEDS: DOCUSATE SODIUM 50 MG/SENNA 8.6 MG TAB PO SCH ×2 (09:00→21:26)
[2016-05-01] MEDS: LACTULOSE SYRUP 20 GM/30 ML CUP PO SCH (09:30)
[2016-05-01] MEDS: QUEtiapine FUMARATE 100 MG TAB PO SCH ×2 (09:30→21:27)
[2016-05-01] MEDS: CARVEDILOL 12.5 MG TAB PO SCH ×2 (09:31→21:27)
[2016-05-01] MEDS: FERROUS SULFATE 325 MG (65 MG ELEMENTAL IRON) TAB PO SCH (09:31)
[2016-05-01] MEDS: ATORVASTATIN 40 MG TAB PO SCH (09:31)
[2016-05-01] MEDS: NITROFURANTOIN MONOHYD MACROCR 100 MG CAP PO SCH ×2 (09:34→16:13)
[2016-05-01] MEDS: EUCERIN CREAM 120 GM JAR TOPICAL SCH ×2 (09:35→21:33)
--- NOTE | 2016-05-01 11:26 | HHI.PR ---
Subjective Remarks No acute complaints. No change in clinical status. Objective Vitals Vital Signs Date Time Temp Pulse Resp B/P Pulse Ox O2 Delivery O2 Flow Rate FiO2 05/01/16 08:00 98.7 82 18 132/80 95 04/30/16 20:00 98.6 86 18 142/83 98 I/O 04/30/16 04/30/16 04/30/16 05/01/16 05/01/16 05/01/16 07:00 15:00 23:00 07:00 15:00 23:00 Intake Total 600 ml Output Total 0 ml Balance 600 ml Intake Oral 600 ml Stool Total 0 ml # Voids 11 3 1 1 # Bowel Movements 2 Objective Remarks GENERAL: Well-nourished, well-developed male in no apparent distress sitting in dayroom. SKIN: Warm and dry. CARDIOVASCULAR: Regular rate and rhythm. RESPIRATORY: Limited anterior exam. No accessory muscle use. Clear to auscultation bilaterally. GASTROINTESTINAL: Abdomen soft, nontender, nondistended. NEUROLOGICAL: Awake and alert. Procedures None Urinary Catheter: No Vascular Central Line Catheter: No A/P Problem List: (1) Acute kidney injury superimposed on CKD ICD Code: N17.9 Status: Acute (2) Hyperkalemia ICD Code: E87.5 Status: Acute (3) Cellulitis ICD Code: L03.90 Status: Resolved (4) Ischemic cardiomyopathy ICD Code: I25.5 Status: Chronic (5) Diabetes mellitus type 2 in obese ICD Code: E11.9 Status: Chronic (6) S/P BKA (below knee amputation) unilateral ICD Code: Z89.519 Status: Chronic (7) Acute metabolic encephalopathy ICD Code: G93.41 Status: Resolved (8) Bacteremia ICD Code: R78.81 Status: Resolved (9) Chronic systolic (congestive) heart failure ICD Code: I50.22 Status: Chronic (10) Venous stasis ulcer of left lower extremity ICD Code: I83.029 Status: Chronic (11) CVA (cerebral vascular accident) ICD Code: I63.9 Status: Chronic (12) Seborrheic dermatitis ICD Code: L21.9 Status: Chronic (13) Anemia ICD Code: D64.9 Status: Chronic (14) HTN (hypertension) ICD Code: I10 Status: Chronic (15) UTI (urinary tract infection) ICD Code: N39.0 Status: Resolved Assessment and Plan 60-year-old male with admitted 10/14 with acute cortical infarct. Patient remains with significant cognitive deficit. Bilateral cerebrovascular accident, with Intermittent and persistent cognitive defect -MRI showed acute cortical infarct of the right cerebral peduncle to the pelvis , left thalamus punctate area of infarct -Neurology last seen patient on 11/13/15, recommended long-term anticoagulation -Continue with Statin. -Continue Coumadin 5 mg daily and monitor INR/PT keep INR between 2 and 3. INR 1.5 today; pharmacy to adjust dosing. -Reconsulted PT/OT, patient will require intermittent therapy while he remains in the hospital so he does not decompensate -Out of bed with nursing only. Patient was counseled to not get out of bed on his own. Fall risk due to cognitive deficit -Psychiatry reconsulted 02/17 for evaluation and appreciate recommendations on patient's cognition, agitation, and medication non-compliance -Seroquel 100 mg daily and 150 mg at bedtime PAT superimposed on Stage 3 CKD: Improved. Due to poor fluid intake. -S/p IV normal saline -DIALLO inhibitor was discontinued. -Monitor intake and output -Avoid nephrotoxins. -Monitor BMP intermittently Hyperkalemia: Resolved. Likely combination of poor by mouth intake and DIALLO inhibitor DIALLO inhibitor discontinued due to hyperkalemia Status post Kayexalate Continue to monitor potassium level periodically Encourage by mouth intake Urinary tract infection Patient asymptomatic, no fever, leukocytosis, or signs of infection Urine culture indicates enterococcus faecalis which is resistant to Cipro Cipro discontinued. Continue treatment with Macrobid 100 mg twice daily for total 10 days Hypertension: Amlodipine 10 mg daily Carvedilol 25 bid Imdur 60 daily Continue to monitor and adjust medications as needed as patient does need tight blood pressure control due to CVAs. Ischemic Cardiomyopathy/chronic systolic CHF LVEF 35% on echo 03/2015. Denies shortness of breath. Compensated. -Continue Coreg, Imdur. DIALLO discontinued due to impaired renal function/ hyperkalemia. -Could consider AICD if patient is able to consent, however patient is currently unable to consent -Fluid and sodium restrictions, follow volume status. Anemia with iron deficiency, hemoglobin stable Iron studies indicate iron 45, TIBC 232, ferritin 345 Continue ferrous sulfate 325 mg daily Continue monitor CBC intermittently Seborrhea dermatitis: Significantly improved. S/p Hydrocortisone cream x 2 weeks Encourage proper hygiene Diabetic mellitus - Glucose was well controlled. All insulin discontinued. -Accu-checks discontinued as patient's blood sugar well controlled and Hgb A1c 6.9. -continue diet control Peripheral arterial disease-stable. -Continue anticoagulation Constipation: -Abdominal x-ray 02/16 indicates moderate amount of stool in the colon on the left side. -Milk of magnesia as needed. -MiraLAX, lactulose, Haydee-Colace daily, lactulose, MiraLAX -Dulcolax as needed DVT prophylaxis - patient on Coumadin Discharge Planning Awaiting placement. PT at rehab recommended. OT recommends 3-1 bedside commode , shower bench, and long-term care facility with restorative services. [facility] is evaluating patient to accept. Problem Qualifiers (1) Cellulitis: (2) S/P BKA (below knee amputation) unilateral: Qualified Code: Z89.511 - S/P BKA (below knee amputation) unilateral, right (3) CVA (cerebral vascular accident): Qualified Code: I63.9 - Cerebrovascular accident (CVA), unspecified mechanism Jennifer Mae May 01, 2016 11:26
[2016-05-01 20:00] VITALS: BP 143/79; PULSE 77; RESP 20; TEMP 97; O2SAT 98
[2016-05-01] MEDS ORDERED: WARFARIN SOD 2.5 MG TAB PO ONE (21:00)
[2016-05-01] MEDS: WARFARIN SOD 6 MG TAB PO SCH (21:26)
[2016-05-01] MEDS: ISOSORBIDE MONONITRATE 60 MG TAB PO SCH (21:26)
[2016-05-02 07:00] LABS: INTERNATIONAL NORMALIZED RATIO 1.7 RATIO; PROTHROMBIN TIME - PATIENT 19.2 SEC (9.8-11.6)
[2016-05-02 08:00] VITALS: BP 119/81; PULSE 73; RESP 18; TEMP 97.8; O2SAT 97
[2016-05-02] MEDS: LACTULOSE SYRUP 20 GM/30 ML CUP PO SCH (08:24)
[2016-05-02] MEDS: POLYETHYLENE GLYCOL 17 GM PKG PO SCH (08:24)
[2016-05-02] MEDS: CARVEDILOL 12.5 MG TAB PO SCH ×2 (08:25→21:20)
[2016-05-02] MEDS: NITROFURANTOIN MONOHYD MACROCR 100 MG CAP PO SCH (08:25)
[2016-05-02] MEDS: DOCUSATE SODIUM 50 MG/SENNA 8.6 MG TAB PO SCH ×2 (08:25→21:20)
[2016-05-02] MEDS: FERROUS SULFATE 325 MG (65 MG ELEMENTAL IRON) TAB PO SCH (08:25)
[2016-05-02] MEDS: ATORVASTATIN 40 MG TAB PO SCH (08:26)
[2016-05-02] MEDS: QUEtiapine FUMARATE 100 MG TAB PO SCH ×2 (08:26→21:20)
[2016-05-02] MEDS: EUCERIN CREAM 120 GM JAR TOPICAL SCH ×2 (08:31→21:21)
--- NOTE | 2016-05-02 08:41 | HHI.PR ---
Subjective Remarks No acute complaints. No change in clinical status. Objective Vitals Vital Signs Date Time Temp Pulse Resp B/P Pulse Ox O2 Delivery O2 Flow Rate FiO2 05/02/16 08:00 97.8 73 18 119/81 97 05/01/16 20:00 97.0 77 20 143/79 98 I/O 05/01/16 05/01/16 05/01/16 05/02/16 05/02/16 05/02/16 06:59 14:59 22:59 06:59 14:59 22:59 Intake Total 600 ml 600 ml Output Total 453 ml 700 ml Balance 600 ml 147 ml -700 ml Intake Oral 600 ml 600 ml Output Urine Total 453 ml 700 ml # Voids 1 1 1 # Bowel Movements 0 1 Objective Remarks GENERAL: Well-nourished, well-developed male in no apparent distress sitting in recliner eating in dayroom. SKIN: Warm and dry. CARDIOVASCULAR: Regular rate and rhythm. RESPIRATORY: No accessory muscle use. Clear to auscultation bilaterally. GASTROINTESTINAL: Abdomen soft, nontender, nondistended. NEUROLOGICAL: Awake and alert. Procedures None A/P Problem List: (1) Acute kidney injury superimposed on CKD ICD Code: N17.9 Status: Acute (2) Hyperkalemia ICD Code: E87.5 Status: Acute (3) Cellulitis ICD Code: L03.90 Status: Resolved (4) Ischemic cardiomyopathy ICD Code: I25.5 Status: Chronic (5) Diabetes mellitus type 2 in obese ICD Code: E11.9 Status: Chronic (6) S/P BKA (below knee amputation) unilateral ICD Code: Z89.519 Status: Chronic (7) Acute metabolic encephalopathy ICD Code: G93.41 Status: Resolved (8) Bacteremia ICD Code: R78.81 Status: Resolved (9) Chronic systolic (congestive) heart failure ICD Code: I50.22 Status: Chronic (10) Venous stasis ulcer of left lower extremity ICD Code: I83.029 Status: Chronic (11) CVA (cerebral vascular accident) ICD Code: I63.9 Status: Chronic (12) Seborrheic dermatitis ICD Code: L21.9 Status: Chronic (13) Anemia ICD Code: D64.9 Status: Chronic (14) HTN (hypertension) ICD Code: I10 Status: Chronic (15) UTI (urinary tract infection) ICD Code: N39.0 Status: Resolved Assessment and Plan 60-year-old male with admitted 10/14 with acute cortical infarct. Patient remains with significant cognitive deficit. Bilateral cerebrovascular accident, with Intermittent and persistent cognitive defect -MRI showed acute cortical infarct of the right cerebral peduncle to the pelvis , left thalamus punctate area of infarct -Neurology last seen patient on 11/13/15, recommended long-term anticoagulation -Continue with Statin. -Continue Coumadin 5 mg daily and monitor INR/PT keep INR between 2 and 3. INR 1.7 today; pharmacy to adjust dosing. -Reconsulted PT/OT, patient will require intermittent therapy while he remains in the hospital so he does not decompensate -Out of bed with nursing only. Patient was counseled to not get out of bed on his own. Fall risk due to cognitive deficit -Psychiatry reconsulted 02/17 for evaluation and appreciate recommendations on patient's cognition, agitation, and medication non-compliance -Seroquel 100 mg daily and 150 mg at bedtime PAT superimposed on Stage 3 CKD: Improved. Due to poor fluid intake. -S/p IV normal saline -DIALLO inhibitor was discontinued. -Monitor intake and output -Avoid nephrotoxins. -Monitor BMP intermittently Hyperkalemia: Resolved. Likely combination of poor by mouth intake and DIALLO inhibitor DIALLO inhibitor discontinued due to hyperkalemia Status post Kayexalate Continue to monitor potassium level periodically Encourage by mouth intake Urinary tract infection Patient asymptomatic, no fever, leukocytosis, or signs of infection Urine culture indicates enterococcus faecalis which is resistant to Cipro Cipro discontinued. Continue treatment with Macrobid 100 mg twice daily for total 10 days Hypertension: Amlodipine 10 mg daily Carvedilol 25 bid Imdur 60 daily Continue to monitor and adjust medications as needed as patient does need tight blood pressure control due to CVAs. Ischemic Cardiomyopathy/chronic systolic CHF LVEF 35% on echo 03/2015. Denies shortness of breath. Compensated. -Continue Coreg, Imdur. DIALLO discontinued due to impaired renal function/ hyperkalemia. -Could consider AICD if patient is able to consent, however patient is currently unable to consent -Fluid and sodium restrictions, follow volume status. Anemia with iron deficiency, hemoglobin stable Iron studies indicate iron 45, TIBC 232, ferritin 345 Continue ferrous sulfate 325 mg daily Continue monitor CBC intermittently Seborrhea dermatitis: Significantly improved. S/p Hydrocortisone cream x 2 weeks Encourage proper hygiene Diabetic mellitus - Glucose was well controlled. All insulin discontinued. -Accu-checks discontinued as patient's blood sugar well controlled and Hgb A1c 6.9. -continue diet control Peripheral arterial disease-stable. -Continue anticoagulation Constipation: -Abdominal x-ray 02/16 indicates moderate amount of stool in the colon on the left side. -Milk of magnesia as needed. -MiraLAX, lactulose, Haydee-Colace daily, lactulose, MiraLAX -Dulcolax as needed DVT prophylaxis - patient on Coumadin Discharge Planning Awaiting placement. PT at rehab recommended. OT recommends 3-1 bedside commode , shower bench, and long-term care facility with restorative services. [facility] is evaluating patient to accept. Problem Qualifiers (1) Cellulitis: (2) S/P BKA (below knee amputation) unilateral: Qualified Code: Z89.511 - S/P BKA (below knee amputation) unilateral, right (3) CVA (cerebral vascular accident): Qualified Code: I63.9 - Cerebrovascular accident (CVA), unspecified mechanism Jennifer Mae May 02, 2016 08:41
[2016-05-02 20:00] VITALS: BP 116/84; PULSE 80; RESP 18; TEMP 97.5; O2SAT 99
[2016-05-02] MEDS ORDERED: WARFARIN SOD 2.5 MG TAB PO ONE (21:00)
[2016-05-02] MEDS: ISOSORBIDE MONONITRATE 60 MG TAB PO SCH (21:20)
[2016-05-02] MEDS: WARFARIN SOD 6 MG TAB PO SCH (21:20)
[2016-05-03 06:08] LABS: INTERNATIONAL NORMALIZED RATIO 1.8 RATIO; PROTHROMBIN TIME - PATIENT 20.8 SEC (9.8-11.6)
[2016-05-03 08:00] VITALS: BP 121/77; PULSE 77; RESP 16; TEMP 96.2; O2SAT 98
--- NOTE | 2016-05-03 09:05 | HHI.PR ---
Subjective Remarks Patient sees examined today. Patient denies any new complaints. No change in clinical status. Objective Vitals Vital Signs Date Time Temp Pulse Resp B/P Pulse Ox O2 Delivery O2 Flow Rate FiO2 05/03/16 08:00 96.2 77 16 121/77 98 05/02/16 20:00 97.5 80 18 116/84 99 I/O 05/02/16 05/02/16 05/02/16 05/03/16 05/03/16 05/03/16 07:00 15:00 23:00 07:00 15:00 23:00 Intake Total 720 ml Output Total 700 ml Balance -700 ml 720 ml Intake Oral 720 ml Output Urine Total 700 ml # Voids 4 1 1 # Bowel Movements 1 0 Objective Remarks GENERAL: Well-developed, well-nourished, in no acute distress. Alert and orientated to person HEENT: Head is normocephalic without any lesions or masses noted. Facial features are symmetric. Extraocular muscles are intact. Conjunctivae were clear. NECK: Trachea midline no deviation. CARDIAC: Regular rhythm, regular rate. S1/S2 are heard. No murmurs gallops or rubs. LUNGS: Clear to auscultation bilaterally. No wheeze, rhonchi or rales. No use of accessory muscles on inspiration or expiration. ABDOMEN: Soft, nontender. Nondistended. Bowel sounds heard in all 4 quadrants. No organomegaly or masses. Negative rebound, negative guarding. EXTREMITIES: No edema, pulses are equal bilaterally. No cyanosis or clubbing. Right [id number] amputation. NEUROLOGY: Mood and affect appear appropriate. Cranial nerves II through XII grossly intact. Moving all extremities, speech is clear Procedures None Urinary Catheter: No Vascular Central Line Catheter: No A/P Assessment and Plan 60-year-old male with admitted 10/14 with acute cortical infarct. Patient remains with significant cognitive deficit. Bilateral cerebrovascular accident, with Intermittent and persistent cognitive defect -MRI showed acute cortical infarct of the right cerebral peduncle to the pelvis , left thalamus punctate area of infarct -Neurology last seen patient on 11/13/15, recommended long-term anticoagulation -Continue with Statin. -Continue Coumadin daily and monitor INR/PT keep INR between 2 and 3, pharmacy consult for dosing. INR 2.3, -Reconsulted PT/OT, patient will require intermittent therapy while he remains in the hospital so he does not decompensate -Out of bed with nursing only. Patient was counseled to not get out of bed on his own. Fall risk due to cognitive deficit -Psychiatry reconsulted 02/17 for evaluation and appreciate recommendations on patient's cognition, agitation -Seroquel 100 mg daily and 150 mg at bedtime Hyperkalemia, likely combination of poor by mouth intake, DIALLO inhibitor, resolved Discontinue DIALLO inhibitor due to hyperkalemia Status post Kayexalate 30 g Continue monitor potassium level Encourage by mouth intake Urinary tract infection Patient asymptomatic, no fever, leukocytosis, signs of infection Urine culture indicates enterococcus faecalis which is resistant to Cipro Discontinue Cipro, start Macrobid 100 mg twice daily for 10 days Hypertension: Blood pressure stable Amlodipine 10 mg daily carvedilol 25 bid, Imdur 60 daily Ischemic Cardiomyopathy/chronic systolic CHF LVEF 35% on echo 03/2015. Denies shortness of breath. Compensated. -Continue Coreg, Imdur, enalapril. -Could consider AICD if patient is able to consent, however patient is currently unable to consent -Fluid and sodium restrictions, follow volume status. Chronic kidney disease stage 3/4. Stable -Patient with intermittent worsening due to poor by mouth intake -Avoid nephrotoxins. -Monitor BMP intermittently Anemia with iron deficiency, hemoglobin stable Iron studies indicate iron 45, TIBC 232, ferritin 345 Continue ferrous sulfate 325 mg daily Continue monitor CBC intermittently Seborrhea dermatitis Status post hydrocortisone cream for 2 weeks Encourage proper hygiene Diabetic mellitus - Glucose was well controlled. All insulin discontinued. -accu-checks discontinued as patient's blood sugar well controlled and Hgb A1c 6.9. -continue diet control Peripheral arterial disease-stable. -Continue anticoagulation Constipation, patient having bowel movement every 2-3 days -Abdominal x-ray 02/16 indicates moderate amount of stool in the colon on the left side. -Milk of magnesia as needed. -MiraLAX, lactulose, Haydee-Colace daily, lactulose, MiraLAX -Dulcolax as needed DVT prophylaxis - patient on Coumadin Discharge Planning Patient is medically stable and has been cleared for discharge from medical perspective. Case management arranging discharge planning to snf facility once a finding facility that'll accept the patient/insurance. Has accepting SNF in order to get Medicaid, and must have someone to sign him in. Case management following. 04/20/16 1422 [facility] IS EVALUATING TO ACCEPT. HAVE SPOKE WITH SISTER WHO WILL MEET WITH FACILITY ON MON. TO ADDRESS ANY NEEDS TO ASSIST IN PLACING PATIENT THERE. EVELIA BEAUCHAMP LPN/DALILA/Truman Barros May 03, 2016 09:05
[2016-05-03] MEDS: POLYETHYLENE GLYCOL 17 GM PKG PO SCH (09:34)
[2016-05-03] MEDS: LACTULOSE SYRUP 20 GM/30 ML CUP PO SCH (09:34)
[2016-05-03] MEDS: QUEtiapine FUMARATE 100 MG TAB PO SCH ×2 (09:35→20:19)
[2016-05-03] MEDS: FERROUS SULFATE 325 MG (65 MG ELEMENTAL IRON) TAB PO SCH (09:35)
[2016-05-03] MEDS: DOCUSATE SODIUM 50 MG/SENNA 8.6 MG TAB PO SCH ×2 (09:35→20:19)
[2016-05-03] MEDS: ATORVASTATIN 40 MG TAB PO SCH (09:35)
[2016-05-03] MEDS: CARVEDILOL 12.5 MG TAB PO SCH ×2 (09:36→20:14)
[2016-05-03] MEDS: EUCERIN CREAM 120 GM JAR TOPICAL SCH ×2 (09:37→20:23)
[2016-05-03 20:00] VITALS: BP 107/64; PULSE 84; RESP 18; TEMP 98.9; O2SAT 98
[2016-05-03] MEDS: ISOSORBIDE MONONITRATE 60 MG TAB PO SCH (20:14)
[2016-05-03] MEDS: WARFARIN SOD 6 MG TAB PO SCH (20:19)
[2016-05-03] MEDS ORDERED: WARFARIN SOD 2.5 MG TAB PO ONE (21:00)
[2016-05-04 06:29] LABS: PROTHROMBIN TIME - PATIENT 22.7 SEC (9.8-11.6)
[2016-05-04 08:00] VITALS: BP 124/69; PULSE 77; RESP 20; TEMP 98; O2SAT 94
[2016-05-04] MEDS: ATORVASTATIN 40 MG TAB PO SCH (08:31)
[2016-05-04] MEDS: LACTULOSE SYRUP 20 GM/30 ML CUP PO SCH (08:31)
[2016-05-04] MEDS: FERROUS SULFATE 325 MG (65 MG ELEMENTAL IRON) TAB PO SCH (08:32)
[2016-05-04] MEDS: DOCUSATE SODIUM 50 MG/SENNA 8.6 MG TAB PO SCH ×2 (08:32→21:38)
[2016-05-04] MEDS: CARVEDILOL 12.5 MG TAB PO SCH ×2 (08:32→21:38)
[2016-05-04] MEDS: QUEtiapine FUMARATE 100 MG TAB PO SCH ×2 (08:32→21:38)
[2016-05-04] MEDS: EUCERIN CREAM 120 GM JAR TOPICAL SCH ×2 (08:37→21:39)
[2016-05-04] MEDS: POLYETHYLENE GLYCOL 17 GM PKG PO SCH (08:38)
--- NOTE | 2016-05-04 10:10 | HHI.PR ---
Subjective Remarks Patient seen and examined today. Patient denies any new complaints. No change in clinical status. Patient is asking when he does he get to leave the hospital. Objective Vitals Vital Signs Date Time Temp Pulse Resp B/P Pulse Ox O2 Delivery O2 Flow Rate FiO2 05/04/16 08:00 98.0 77 20 124/69 94 05/03/16 20:00 98.9 84 18 107/64 98 I/O 05/03/16 05/03/16 05/03/16 05/04/16 05/04/16 05/04/16 07:00 15:00 23:00 07:00 15:00 23:00 Intake Total 680 ml 840 ml 0 ml Output Total 200 ml Balance 680 ml 840 ml -200 ml Intake Oral 680 ml 840 ml 0 ml Output Urine Total 200 ml # Voids 1 3 1 # Bowel Movements 0 0 Objective Remarks GENERAL: Well-developed, well-nourished, in no acute distress. Alert and orientated to person HEENT: Head is normocephalic without any lesions or masses noted. Facial features are symmetric. Extraocular muscles are intact. Conjunctivae were clear. NECK: Trachea midline no deviation. CARDIAC: Regular rhythm, regular rate. S1/S2 are heard. No murmurs gallops or rubs. LUNGS: Clear to auscultation bilaterally. No wheeze, rhonchi or rales. No use of accessory muscles on inspiration or expiration. ABDOMEN: Soft, nontender. Nondistended. Bowel sounds heard in all 4 quadrants. No organomegaly or masses. Negative rebound, negative guarding. EXTREMITIES: No edema, pulses are equal bilaterally. No cyanosis or clubbing. Right [id number] amputation. NEUROLOGY: Mood and affect appear appropriate. Cranial nerves II through XII grossly intact. Moving all extremities, speech is clear Procedures None Urinary Catheter: No Vascular Central Line Catheter: No A/P Assessment and Plan 60-year-old male with admitted 10/14 with acute cortical infarct. Patient remains with significant cognitive deficit. Bilateral cerebrovascular accident, with Intermittent and persistent cognitive defect -MRI showed acute cortical infarct of the right cerebral peduncle to the pelvis , left thalamus punctate area of infarct -Neurology last seen patient on 11/13/15, recommended long-term anticoagulation -Continue with Statin. -Continue Coumadin daily and monitor INR/PT keep INR between 2 and 3, pharmacy consult for dosing. INR 2.0, -Reconsulted PT/OT, patient will require intermittent therapy while he remains in the hospital so he does not decompensate -Out of bed with nursing only. Patient was counseled to not get out of bed on his own. Fall risk due to cognitive deficit -Psychiatry reconsulted 02/17 for evaluation and appreciate recommendations on patient's cognition, agitation -Seroquel 100 mg daily and 150 mg at bedtime Hyperkalemia, likely combination of poor by mouth intake, DIALLO inhibitor, resolved Discontinue DIALLO inhibitor due to hyperkalemia Status post Kayexalate 30 g Continue monitor potassium level Encourage by mouth intake Urinary tract infection Patient asymptomatic, no fever, leukocytosis, signs of infection Urine culture indicates enterococcus faecalis which is resistant to Cipro Discontinue Cipro, start Macrobid 100 mg twice daily for 10 days Hypertension: Blood pressure stable Amlodipine 10 mg daily carvedilol 25 bid, Imdur 60 daily Ischemic Cardiomyopathy/chronic systolic CHF LVEF 35% on echo 03/2015. Denies shortness of breath. Compensated. -Continue Coreg, Imdur, enalapril. -Could consider AICD if patient is able to consent, however patient is currently unable to consent -Fluid and sodium restrictions, follow volume status. Chronic kidney disease stage 3/4. Stable -Patient with intermittent worsening due to poor by mouth intake -Avoid nephrotoxins. -Monitor BMP intermittently Anemia with iron deficiency, hemoglobin stable Iron studies indicate iron 45, TIBC 232, ferritin 345 Continue ferrous sulfate 325 mg daily Continue monitor CBC intermittently Seborrhea dermatitis Status post hydrocortisone cream for 2 weeks Encourage proper hygiene Diabetic mellitus - Glucose was well controlled. All insulin discontinued. -accu-checks discontinued as patient's blood sugar well controlled and Hgb A1c 6.9. -continue diet control Peripheral arterial disease-stable. -Continue anticoagulation Constipation, patient having bowel movement every 2-3 days -Abdominal x-ray 02/16 indicates moderate amount of stool in the colon on the left side. -Milk of magnesia as needed. -MiraLAX, lactulose, Haydee-Colace daily, lactulose, MiraLAX -Dulcolax as needed DVT prophylaxis - patient on Coumadin Discharge Planning Patient is medically stable and has been cleared for discharge from medical perspective. Case management arranging discharge planning to senior living facility once a finding facility that'll accept the patient/insurance. Has accepting SNF in order to get Medicaid, and must have someone to sign him in. Case management following. 05/03/16 1010 PATIENT CONT TO NEED PLACEMENT. SITER BECOMING MORE INAPPROPRIATE TO SERVE SURRIGATE. AND IS MIS USING HIS FUNDS. WILL ADDRESS [employer] FOR CARE NEEDS AND TO FACILITATE EVELIA BEAUCHAMP LPN/DALILA/CHARGE Truman Fulton May 04, 2016 10:10
[2016-05-04 20:00] VITALS: BP 152/95; PULSE 87; RESP 18; TEMP 98.7; O2SAT 98
[2016-05-04] MEDS: WARFARIN SOD 6 MG TAB PO SCH (21:38)
[2016-05-04] MEDS: ISOSORBIDE MONONITRATE 60 MG TAB PO SCH (21:38)
[2016-05-05 05:07] LABS: INTERNATIONAL NORMALIZED RATIO 2.2 RATIO; PROTHROMBIN TIME - PATIENT 24.8 SEC (9.8-11.6)
[2016-05-05 08:00] VITALS: BP 120/83; PULSE 74; RESP 18; TEMP 97.9; O2SAT 97
[2016-05-05] MEDS: LACTULOSE SYRUP 20 GM/30 ML CUP PO SCH (08:22)
[2016-05-05] MEDS: POLYETHYLENE GLYCOL 17 GM PKG PO SCH (08:22)
[2016-05-05] MEDS: FERROUS SULFATE 325 MG (65 MG ELEMENTAL IRON) TAB PO SCH (08:23)
[2016-05-05] MEDS: ATORVASTATIN 40 MG TAB PO SCH (08:23)
[2016-05-05] MEDS: QUEtiapine FUMARATE 100 MG TAB PO SCH ×2 (08:23→20:21)
[2016-05-05] MEDS: DOCUSATE SODIUM 50 MG/SENNA 8.6 MG TAB PO SCH ×2 (08:23→20:21)
[2016-05-05] MEDS: CARVEDILOL 12.5 MG TAB PO SCH ×2 (08:23→20:21)
[2016-05-05] MEDS: EUCERIN CREAM 120 GM JAR TOPICAL SCH ×2 (08:23→20:21)
--- NOTE | 2016-05-05 10:28 | HHI.PR ---
Subjective Remarks Patient seen and examined today. Patient denies any new complaints. No change in clinical status. Objective Vitals Vital Signs Date Time Temp Pulse Resp B/P Pulse Ox O2 Delivery O2 Flow Rate FiO2 05/05/16 08:00 97.9 74 18 120/83 97 05/04/16 20:00 98.7 87 18 152/95 98 I/O 05/04/16 05/04/16 05/04/16 05/05/16 05/05/16 05/05/16 07:00 15:00 23:00 07:00 15:00 23:00 Intake Total 0 ml 480 ml 220 ml Output Total 200 ml Balance -200 ml 480 ml 220 ml Intake Oral 0 ml 480 ml 220 ml Output Urine Total 200 ml # Voids 2 2 1 # Bowel Movements 0 1 1 Objective Remarks GENERAL: Well-developed, well-nourished, in no acute distress. Alert and orientated to person HEENT: Head is normocephalic without any lesions or masses noted. Facial features are symmetric. Extraocular muscles are intact. Conjunctivae were clear. NECK: Trachea midline no deviation. CARDIAC: Regular rhythm, regular rate. S1/S2 are heard. No murmurs gallops or rubs. LUNGS: Clear to auscultation bilaterally. No wheeze, rhonchi or rales. No use of accessory muscles on inspiration or expiration. ABDOMEN: Soft, nontender. Nondistended. Bowel sounds heard in all 4 quadrants. No organomegaly or masses. Negative rebound, negative guarding. EXTREMITIES: No edema, pulses are equal bilaterally. No cyanosis or clubbing. Right [id number] amputation. NEUROLOGY: Mood and affect appear appropriate. Cranial nerves II through XII grossly intact. Moving all extremities, speech is clear Procedures None Urinary Catheter: No Vascular Central Line Catheter: No A/P Assessment and Plan 60-year-old male with admitted 10/14 with acute cortical infarct. Patient remains with significant cognitive deficit. Bilateral cerebrovascular accident, with Intermittent and persistent cognitive defect -MRI showed acute cortical infarct of the right cerebral peduncle to the pelvis , left thalamus punctate area of infarct -Neurology last seen patient on 11/13/15, recommended long-term anticoagulation -Continue with Statin. -Continue Coumadin daily and monitor INR/PT keep INR between 2 and 3, pharmacy consult for dosing. INR 2.2, -Reconsulted PT/OT, patient will require intermittent therapy while he remains in the hospital so he does not decompensate -Out of bed with nursing only. Patient was counseled to not get out of bed on his own. Fall risk due to cognitive deficit -Psychiatry reconsulted 02/17 for evaluation and appreciate recommendations on patient's cognition, agitation -Seroquel 100 mg daily and 150 mg at bedtime Hyperkalemia, likely combination of poor by mouth intake, DIALLO inhibitor, resolved Discontinue DIALLO inhibitor due to hyperkalemia Status post Kayexalate 30 g Continue monitor potassium level Encourage by mouth intake Urinary tract infection Patient asymptomatic, no fever, leukocytosis, signs of infection Urine culture indicates enterococcus faecalis which is resistant to Cipro Discontinue Cipro, start Macrobid 100 mg twice daily for 10 days Hypertension: Blood pressure stable Amlodipine 10 mg daily carvedilol 25 bid, Imdur 60 daily Ischemic Cardiomyopathy/chronic systolic CHF LVEF 35% on echo 03/2015. Denies shortness of breath. Compensated. -Continue Coreg, Imdur, enalapril. -Could consider AICD if patient is able to consent, however patient is currently unable to consent -Fluid and sodium restrictions, follow volume status. Chronic kidney disease stage 3/4. Stable -Patient with intermittent worsening due to poor by mouth intake -Avoid nephrotoxins. -Monitor BMP intermittently Anemia with iron deficiency, hemoglobin stable Iron studies indicate iron 45, TIBC 232, ferritin 345 Continue ferrous sulfate 325 mg daily Continue monitor CBC intermittently Seborrhea dermatitis Status post hydrocortisone cream for 2 weeks Encourage proper hygiene Diabetic mellitus - Glucose was well controlled. All insulin discontinued. -accu-checks discontinued as patient's blood sugar well controlled and Hgb A1c 6.9. -continue diet control Peripheral arterial disease-stable. -Continue anticoagulation Constipation, patient having bowel movement every 2-3 days -Abdominal x-ray 02/16 indicates moderate amount of stool in the colon on the left side. -Milk of magnesia as needed. -MiraLAX, lactulose, Haydee-Colace daily, lactulose, MiraLAX -Dulcolax as needed DVT prophylaxis - patient on Coumadin Discharge Planning Patient is medically stable and has been cleared for discharge from medical perspective. Case management arranging discharge planning to group home facility once a finding facility that'll accept the patient/insurance. Has accepting SNF in order to get Medicaid, and must have someone to sign him in. Case management following. 05/03/16 1010 PATIENT CONT TO NEED PLACEMENT. SITER BECOMING MORE INAPPROPRIATE TO SERVE SURRIGATE. AND IS MIS USING HIS FUNDS. WILL ADDRESS [employer] FOR CARE NEEDS AND TO FACILITATE EVELIA BEAUCHAMP LPN/DALILA/CHARGE Truman Fulton May 05, 2016 10:28
[2016-05-05 20:00] VITALS: BP 137/86; PULSE 78; RESP 16; TEMP 98.4
[2016-05-05] MEDS: ISOSORBIDE MONONITRATE 60 MG TAB PO SCH (20:21)
[2016-05-05] MEDS: WARFARIN SOD 6 MG TAB PO SCH (20:21)
[2016-05-06 04:58] LABS: INTERNATIONAL NORMALIZED RATIO 2.5 RATIO; PROTHROMBIN TIME - PATIENT 29.3 SEC (9.8-11.6)
[2016-05-06 08:00] VITALS: BP 157/96; PULSE 74; RESP 20; TEMP 96.7; O2SAT 98
[2016-05-06] MEDS: POLYETHYLENE GLYCOL 17 GM PKG PO SCH (08:05)
[2016-05-06] MEDS: CARVEDILOL 12.5 MG TAB PO SCH ×2 (08:05→21:31)
[2016-05-06] MEDS: LACTULOSE SYRUP 20 GM/30 ML CUP PO SCH (08:05)
[2016-05-06] MEDS: ATORVASTATIN 40 MG TAB PO SCH (08:06)
[2016-05-06] MEDS: QUEtiapine FUMARATE 100 MG TAB PO SCH ×2 (08:06→21:31)
[2016-05-06] MEDS: DOCUSATE SODIUM 50 MG/SENNA 8.6 MG TAB PO SCH ×2 (08:06→21:28)
[2016-05-06] MEDS: EUCERIN CREAM 120 GM JAR TOPICAL SCH ×2 (08:06→21:34)
[2016-05-06] MEDS: FERROUS SULFATE 325 MG (65 MG ELEMENTAL IRON) TAB PO SCH (08:06)
--- NOTE | 2016-05-06 10:06 | HHI.PR ---
Subjective Remarks Patient seen and examined today. Patient denies any new complaints. No change clinically Objective Vitals Vital Signs Date Time Temp Pulse Resp B/P Pulse Ox O2 Delivery O2 Flow Rate FiO2 05/06/16 08:00 96.7 74 20 157/96 98 05/05/16 20:00 98.4 78 16 137/86 I/O 05/05/16 05/05/16 05/05/16 05/06/16 05/06/16 05/06/16 07:00 15:00 23:00 07:00 15:00 23:00 Intake Total 220 ml 925 ml 240 ml Balance 220 ml 925 ml 240 ml Intake Oral 220 ml 925 ml 240 ml # Voids 2 5 2 1 # Bowel Movements 1 0 Objective Remarks GENERAL: Well-developed, well-nourished, in no acute distress. Alert and orientated to person HEENT: Head is normocephalic without any lesions or masses noted. Facial features are symmetric. Extraocular muscles are intact. Conjunctivae were clear. NECK: Trachea midline no deviation. CARDIAC: Regular rhythm, regular rate. S1/S2 are heard. No murmurs gallops or rubs. LUNGS: Clear to auscultation bilaterally. No wheeze, rhonchi or rales. No use of accessory muscles on inspiration or expiration. ABDOMEN: Soft, nontender. Nondistended. Bowel sounds heard in all 4 quadrants. No organomegaly or masses. Negative rebound, negative guarding. EXTREMITIES: No edema, pulses are equal bilaterally. No cyanosis or clubbing. Right [id number] amputation. NEUROLOGY: Mood and affect appear appropriate. Cranial nerves II through XII grossly intact. Moving all extremities, speech is clear Procedures None Urinary Catheter: No Vascular Central Line Catheter: No A/P Assessment and Plan 60-year-old male with admitted 10/14 with acute cortical infarct. Patient remains with significant cognitive deficit. Bilateral cerebrovascular accident, with Intermittent and persistent cognitive defect -MRI showed acute cortical infarct of the right cerebral peduncle to the pelvis , left thalamus punctate area of infarct -Neurology last seen patient on 11/13/15, recommended long-term anticoagulation -Continue with Statin. -Continue Coumadin daily and monitor INR/PT keep INR between 2 and 3, pharmacy consult for dosing. INR 2.5, -Reconsulted PT/OT, patient will require intermittent therapy while he remains in the hospital so he does not decompensate -Out of bed with nursing only. Patient was counseled to not get out of bed on his own. Fall risk due to cognitive deficit -Psychiatry reconsulted 02/17 for evaluation and appreciate recommendations on patient's cognition, agitation -Seroquel 100 mg daily and 150 mg at bedtime Hyperkalemia, likely combination of poor by mouth intake, DIALLO inhibitor, resolved Discontinue DIALLO inhibitor due to hyperkalemia Status post Kayexalate 30 g Continue monitor potassium level Encourage by mouth intake Urinary tract infection Patient asymptomatic, no fever, leukocytosis, signs of infection Urine culture indicates enterococcus faecalis which is resistant to Cipro Discontinue Cipro, start Macrobid 100 mg twice daily for 10 days Hypertension: Blood pressure stable Amlodipine 10 mg daily carvedilol 25 bid, Imdur 60 daily Ischemic Cardiomyopathy/chronic systolic CHF LVEF 35% on echo 03/2015. Denies shortness of breath. Compensated. -Continue Coreg, Imdur, enalapril. -Could consider AICD if patient is able to consent, however patient is currently unable to consent -Fluid and sodium restrictions, follow volume status. Chronic kidney disease stage 3/4. Stable -Patient with intermittent worsening due to poor by mouth intake -Avoid nephrotoxins. -Monitor BMP intermittently Anemia with iron deficiency, hemoglobin stable Iron studies indicate iron 45, TIBC 232, ferritin 345 Continue ferrous sulfate 325 mg daily Continue monitor CBC intermittently Seborrhea dermatitis Status post hydrocortisone cream for 2 weeks Encourage proper hygiene Diabetic mellitus - Glucose was well controlled. All insulin discontinued. -accu-checks discontinued as patient's blood sugar well controlled and Hgb A1c 6.9. -continue diet control Peripheral arterial disease-stable. -Continue anticoagulation Constipation, patient having bowel movement every 2-3 days -Abdominal x-ray 02/16 indicates moderate amount of stool in the colon on the left side. -Milk of magnesia as needed. -MiraLAX, lactulose, Haydee-Colace daily, lactulose, MiraLAX -Dulcolax as needed DVT prophylaxis - patient on Coumadin Discharge Planning Patient is medically stable and has been cleared for discharge from medical perspective. Case management arranging discharge planning to long term facility once a finding facility that'll accept the patient/insurance. Has accepting SNF in order to get Medicaid, and must have someone to sign him in. Case management following. 05/03/16 1010 PATIENT CONT TO NEED PLACEMENT. SITER BECOMING MORE INAPPROPRIATE TO SERVE SURRIGATE. AND IS MIS USING HIS FUNDS. WILL ADDRESS [employer] FOR CARE NEEDS AND TO FACILITATE EVELIA BEAUCHAMP LPN/DALILA/CHARGE Truman Fulton May 06, 2016 10:06
[2016-05-06 20:15] VITALS: BP 128/89; PULSE 80; RESP 18; TEMP 98.8; O2SAT 98
[2016-05-06] MEDS: WARFARIN SOD 6 MG TAB PO SCH (21:29)
[2016-05-06] MEDS: ISOSORBIDE MONONITRATE 60 MG TAB PO SCH (21:32)
[2016-05-07 06:50] LABS: INTERNATIONAL NORMALIZED RATIO 2.7 RATIO; PROTHROMBIN TIME - PATIENT 30.6 SEC (9.8-11.6)
[2016-05-07 08:00] VITALS: BP 110/84; PULSE 73; RESP 20; TEMP 97.7; O2SAT 97
[2016-05-07] MEDS: LACTULOSE SYRUP 20 GM/30 ML CUP PO SCH (08:12)
[2016-05-07] MEDS: POLYETHYLENE GLYCOL 17 GM PKG PO SCH (08:12)
[2016-05-07] MEDS: QUEtiapine FUMARATE 100 MG TAB PO SCH ×2 (08:13→20:13)
[2016-05-07] MEDS: EUCERIN CREAM 120 GM JAR TOPICAL SCH ×2 (08:13→20:19)
[2016-05-07] MEDS: DOCUSATE SODIUM 50 MG/SENNA 8.6 MG TAB PO SCH ×2 (08:13→20:16)
[2016-05-07] MEDS: FERROUS SULFATE 325 MG (65 MG ELEMENTAL IRON) TAB PO SCH (08:13)
[2016-05-07] MEDS: ATORVASTATIN 40 MG TAB PO SCH (08:13)
[2016-05-07] MEDS: CARVEDILOL 12.5 MG TAB PO SCH ×2 (08:14→20:17)
--- NOTE | 2016-05-07 09:56 | HHI.PR ---
Subjective Remarks Patient seen and examined today. Patient denies any new complaints. No change in clinical status. Objective Vitals Vital Signs Date Time Temp Pulse Resp B/P Pulse Ox O2 Delivery O2 Flow Rate FiO2 05/07/16 08:00 97.7 73 20 110/84 97 05/06/16 20:15 98.8 80 18 128/89 98 I/O 05/06/16 05/06/16 05/06/16 05/07/16 05/07/16 05/07/16 07:00 15:00 23:00 07:00 15:00 23:00 Intake Total 1000 ml Output Total 200 ml 300 ml Balance 800 ml -300 ml Intake Oral 1000 ml Output Urine Total 200 ml 300 ml # Voids 5 2 1 # Bowel Movements 0 Objective Remarks GENERAL: Well-developed, well-nourished, in no acute distress. Alert and orientated to person HEENT: Head is normocephalic without any lesions or masses noted. Facial features are symmetric. Extraocular muscles are intact. Conjunctivae were clear. NECK: Trachea midline no deviation. CARDIAC: Regular rhythm, regular rate. S1/S2 are heard. No murmurs gallops or rubs. LUNGS: Clear to auscultation bilaterally. No wheeze, rhonchi or rales. No use of accessory muscles on inspiration or expiration. ABDOMEN: Soft, nontender. Nondistended. Bowel sounds heard in all 4 quadrants. No organomegaly or masses. Negative rebound, negative guarding. EXTREMITIES: No edema, pulses are equal bilaterally. No cyanosis or clubbing. Right [id number] amputation. NEUROLOGY: Mood and affect appear appropriate. Cranial nerves II through XII grossly intact. Moving all extremities, speech is clear Procedures None Urinary Catheter: No Vascular Central Line Catheter: No A/P Assessment and Plan 60-year-old male with admitted 10/14 with acute cortical infarct. Patient remains with significant cognitive deficit. Bilateral cerebrovascular accident, with Intermittent and persistent cognitive defect -MRI showed acute cortical infarct of the right cerebral peduncle to the pelvis , left thalamus punctate area of infarct -Neurology last seen patient on 11/13/15, recommended long-term anticoagulation -Continue with Statin. -Continue Coumadin daily and monitor INR/PT keep INR between 2 and 3, pharmacy consult for dosing. INR 2.5, -Reconsulted PT/OT, patient will require intermittent therapy while he remains in the hospital so he does not decompensate -Out of bed with nursing only. Patient was counseled to not get out of bed on his own. Fall risk due to cognitive deficit -Psychiatry reconsulted 02/17 for evaluation and appreciate recommendations on patient's cognition, agitation -Seroquel 100 mg daily and 150 mg at bedtime Hyperkalemia, likely combination of poor by mouth intake, DIALLO inhibitor, resolved Discontinue DIALLO inhibitor due to hyperkalemia Status post Kayexalate 30 g Continue monitor potassium level Encourage by mouth intake Urinary tract infection Patient asymptomatic, no fever, leukocytosis, signs of infection Urine culture indicates enterococcus faecalis which is resistant to Cipro Discontinue Cipro, start Macrobid 100 mg twice daily for 10 days Hypertension: Blood pressure stable Amlodipine 10 mg daily carvedilol 25 bid, Imdur 60 daily Ischemic Cardiomyopathy/chronic systolic CHF LVEF 35% on echo 03/2015. Denies shortness of breath. Compensated. -Continue Coreg, Imdur, enalapril. -Could consider AICD if patient is able to consent, however patient is currently unable to consent -Fluid and sodium restrictions, follow volume status. Chronic kidney disease stage 3/4. Stable -Patient with intermittent worsening due to poor by mouth intake -Avoid nephrotoxins. -Monitor BMP intermittently Anemia with iron deficiency, hemoglobin stable Iron studies indicate iron 45, TIBC 232, ferritin 345 Continue ferrous sulfate 325 mg daily Continue monitor CBC intermittently Seborrhea dermatitis Status post hydrocortisone cream for 2 weeks Encourage proper hygiene Diabetic mellitus - Glucose was well controlled. All insulin discontinued. -accu-checks discontinued as patient's blood sugar well controlled and Hgb A1c 6.9. -continue diet control Peripheral arterial disease-stable. -Continue anticoagulation Constipation, patient having bowel movement every 2-3 days -Abdominal x-ray 02/16 indicates moderate amount of stool in the colon on the left side. -Milk of magnesia as needed. -MiraLAX, lactulose, Haydee-Colace daily, lactulose, MiraLAX -Dulcolax as needed DVT prophylaxis - patient on Coumadin Discharge Planning Patient is medically stable and has been cleared for discharge from medical perspective. Case management arranging discharge planning to [facility] once a finding facility that'll accept the patient/insurance. Has accepting SNF in order to get Medicaid, and must have someone to sign him in. Case management following. 05/03/16 1010 PATIENT CONT TO NEED PLACEMENT. SITER BECOMING MORE INAPPROPRIATE TO SERVE SURRIGATE. AND IS MIS USING HIS FUNDS. WILL ADDRESS [employer] FOR CARE NEEDS AND TO FACILITATE EVELIA BEAUCHAMP LPN/DALILA/Truman Barros May 07, 2016 09:56
[2016-05-07] MEDS: WARFARIN SOD 5 MG TAB PO SCH (20:16)
[2016-05-07] MEDS: ISOSORBIDE MONONITRATE 60 MG TAB PO SCH (20:18)
[2016-05-07 21:07] VITALS: BP 138/96; PULSE 93; RESP 14; TEMP 97.9; O2SAT 95
[2016-05-08 07:16] LABS: INTERNATIONAL NORMALIZED RATIO 2.5 RATIO; PROTHROMBIN TIME - PATIENT 29.1 SEC (9.8-11.6)
[2016-05-08 08:00] VITALS: BP 120/75; PULSE 73; RESP 19; TEMP 97.6; O2SAT 98
[2016-05-08] MEDS: QUEtiapine FUMARATE 100 MG TAB PO SCH ×2 (08:07→20:38)
[2016-05-08] MEDS: LACTULOSE SYRUP 20 GM/30 ML CUP PO SCH (08:07)
[2016-05-08] MEDS: ATORVASTATIN 40 MG TAB PO SCH (08:07)
[2016-05-08] MEDS: POLYETHYLENE GLYCOL 17 GM PKG PO SCH (08:07)
[2016-05-08] MEDS: FERROUS SULFATE 325 MG (65 MG ELEMENTAL IRON) TAB PO SCH (08:07)
[2016-05-08] MEDS: CARVEDILOL 12.5 MG TAB PO SCH ×2 (08:07→20:38)
[2016-05-08] MEDS: DOCUSATE SODIUM 50 MG/SENNA 8.6 MG TAB PO SCH ×2 (08:07→20:38)
[2016-05-08] MEDS: EUCERIN CREAM 120 GM JAR TOPICAL SCH ×2 (08:08→20:39)
--- NOTE | 2016-05-08 10:26 | HHI.PR ---
Subjective Remarks Patient seen and examined today. Patient has any new complaints. No change in clinical status. Objective Vitals Vital Signs Date Time Temp Pulse Resp B/P Pulse Ox O2 Delivery O2 Flow Rate FiO2 05/08/16 08:00 97.6 73 19 120/75 98 05/07/16 21:07 97.9 93 14 138/96 95 I/O 05/07/16 05/07/16 05/07/16 05/08/16 05/08/16 05/08/16 07:00 15:00 23:00 07:00 15:00 23:00 Intake Total 480 ml Output Total 300 ml Balance -300 ml 480 ml Intake Oral 480 ml Output Urine Total 300 ml # Voids 3 1 6 # Bowel Movements 0 Objective Remarks GENERAL: Well-developed, well-nourished, in no acute distress. Alert and orientated to person HEENT: Head is normocephalic without any lesions or masses noted. Facial features are symmetric. Extraocular muscles are intact. Conjunctivae were clear. NECK: Trachea midline no deviation. CARDIAC: Regular rhythm, regular rate. S1/S2 are heard. No murmurs gallops or rubs. LUNGS: Clear to auscultation bilaterally. No wheeze, rhonchi or rales. No use of accessory muscles on inspiration or expiration. ABDOMEN: Soft, nontender. Nondistended. Bowel sounds heard in all 4 quadrants. No organomegaly or masses. Negative rebound, negative guarding. EXTREMITIES: No edema, pulses are equal bilaterally. No cyanosis or clubbing. Right [id number] amputation. NEUROLOGY: Mood and affect appear appropriate. Cranial nerves II through XII grossly intact. Moving all extremities, speech is clear Procedures None Urinary Catheter: No Vascular Central Line Catheter: No A/P Assessment and Plan 60-year-old male with admitted 10/14 with acute cortical infarct. Patient remains with significant cognitive deficit. Bilateral cerebrovascular accident, with Intermittent and persistent cognitive defect -MRI showed acute cortical infarct of the right cerebral peduncle to the pelvis , left thalamus punctate area of infarct -Neurology last seen patient on 11/13/15, recommended long-term anticoagulation -Continue with Statin. -Continue Coumadin daily and monitor INR/PT keep INR between 2 and 3, pharmacy consult for dosing. INR 2.5, -Reconsulted PT/OT, patient will require intermittent therapy while he remains in the hospital so he does not decompensate -Out of bed with nursing only. Patient was counseled to not get out of bed on his own. Fall risk due to cognitive deficit -Psychiatry reconsulted 02/17 for evaluation and appreciate recommendations on patient's cognition, agitation -Seroquel 100 mg daily and 150 mg at bedtime Hyperkalemia, likely combination of poor by mouth intake, DIALLO inhibitor, resolved Discontinue DIALLO inhibitor due to hyperkalemia Status post Kayexalate 30 g Continue monitor potassium level Encourage by mouth intake Urinary tract infection Patient asymptomatic, no fever, leukocytosis, signs of infection Urine culture indicates enterococcus faecalis which is resistant to Cipro Discontinue Cipro, start Macrobid 100 mg twice daily for 10 days Hypertension: Blood pressure stable Amlodipine 10 mg daily carvedilol 25 bid, Imdur 60 daily Ischemic Cardiomyopathy/chronic systolic CHF LVEF 35% on echo 03/2015. Denies shortness of breath. Compensated. -Continue Coreg, Imdur, enalapril. -Could consider AICD if patient is able to consent, however patient is currently unable to consent -Fluid and sodium restrictions, follow volume status. Chronic kidney disease stage 3/4. Stable -Patient with intermittent worsening due to poor by mouth intake -Avoid nephrotoxins. -Monitor BMP intermittently Anemia with iron deficiency, hemoglobin stable Iron studies indicate iron 45, TIBC 232, ferritin 345 Continue ferrous sulfate 325 mg daily Continue monitor CBC intermittently Seborrhea dermatitis Status post hydrocortisone cream for 2 weeks Encourage proper hygiene Diabetic mellitus - Glucose was well controlled. All insulin discontinued. -accu-checks discontinued as patient's blood sugar well controlled and Hgb A1c 6.9. -continue diet control Peripheral arterial disease-stable. -Continue anticoagulation Constipation, patient having bowel movement every 2-3 days -Abdominal x-ray 02/16 indicates moderate amount of stool in the colon on the left side. -Milk of magnesia as needed. -MiraLAX, lactulose, Hyadee-Colace daily, lactulose, MiraLAX -Dulcolax as needed DVT prophylaxis - patient on Coumadin Discharge Planning Patient is medically stable and has been cleared for discharge from medical perspective. Case management arranging discharge planning to long term facility once a finding facility that'll accept the patient/insurance. Has accepting SNF in order to get Medicaid, and must have someone to sign him in. Case management following. 05/03/16 1010 PATIENT CONT TO NEED PLACEMENT. SITER BECOMING MORE INAPPROPRIATE TO SERVE SURRIGATE. AND IS MIS USING HIS FUNDS. WILL ADDRESS [employer] FOR CARE NEEDS AND TO FACILITATE EVELIA BEAUCHAMP LPN/CM/CHARGE Truman Fulton May 08, 2016 10:26
[2016-05-08 20:00] VITALS: BP 116/78; PULSE 73; RESP 16; TEMP 96.7; O2SAT 99
[2016-05-08] MEDS: ISOSORBIDE MONONITRATE 60 MG TAB PO SCH (20:38)
[2016-05-08] MEDS: WARFARIN SOD 5 MG TAB PO SCH (20:38)
[2016-05-09 06:52] LABS: INTERNATIONAL NORMALIZED RATIO 2.3 RATIO; PROTHROMBIN TIME - PATIENT 26.1 SEC (9.8-11.6)
[2016-05-09 08:00] VITALS: BP 140/85; PULSE 69; RESP 16; TEMP 97.5; O2SAT 99
[2016-05-09] MEDS: LACTULOSE SYRUP 20 GM/30 ML CUP PO SCH (08:04)
[2016-05-09] MEDS: EUCERIN CREAM 120 GM JAR TOPICAL SCH ×2 (08:04→21:29)
[2016-05-09] MEDS: QUEtiapine FUMARATE 100 MG TAB PO SCH ×2 (08:04→21:25)
[2016-05-09] MEDS: FERROUS SULFATE 325 MG (65 MG ELEMENTAL IRON) TAB PO SCH (08:04)
[2016-05-09] MEDS: POLYETHYLENE GLYCOL 17 GM PKG PO SCH (08:04)
[2016-05-09] MEDS: DOCUSATE SODIUM 50 MG/SENNA 8.6 MG TAB PO SCH ×2 (08:04→21:25)
[2016-05-09] MEDS: ATORVASTATIN 40 MG TAB PO SCH (08:05)
[2016-05-09] MEDS: CARVEDILOL 12.5 MG TAB PO SCH ×2 (08:10→21:25)
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
[2016-05-09 20:00] VITALS: BP 108/73; PULSE 80; RESP 16; TEMP 97.8; O2SAT 96
[2016-05-09] MEDS ORDERED: WARFARIN SOD 1 MG TAB PO ONE (21:00)
[2016-05-09] MEDS: WARFARIN SOD 5 MG TAB PO SCH (21:25)
[2016-05-09] MEDS: ISOSORBIDE MONONITRATE 60 MG TAB PO SCH (21:25)
[2016-05-10 08:15] LABS: INTERNATIONAL NORMALIZED RATIO 2.3 RATIO; PROTHROMBIN TIME - PATIENT 26.5 SEC (9.8-11.6)
[2016-05-10 08:49] VITALS: BP 136/92; PULSE 71; RESP 18; TEMP 97.9; O2SAT 98
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
[2016-05-10] MEDS: LACTULOSE SYRUP 20 GM/30 ML CUP PO SCH (09:50)
[2016-05-10] MEDS: POLYETHYLENE GLYCOL 17 GM PKG PO SCH (09:50)
[2016-05-10] MEDS: FERROUS SULFATE 325 MG (65 MG ELEMENTAL IRON) TAB PO SCH (09:50)
[2016-05-10] MEDS: CARVEDILOL 12.5 MG TAB PO SCH ×2 (09:51→20:06)
[2016-05-10] MEDS: QUEtiapine FUMARATE 100 MG TAB PO SCH ×2 (09:51→20:06)
[2016-05-10] MEDS: ATORVASTATIN 40 MG TAB PO SCH (09:51)
[2016-05-10] MEDS: EUCERIN CREAM 120 GM JAR TOPICAL SCH ×2 (09:52→20:07)
[2016-05-10] MEDS: DOCUSATE SODIUM 50 MG/SENNA 8.6 MG TAB PO SCH ×2 (09:53→20:06)
[2016-05-10 20:00] VITALS: BP 143/99; PULSE 83; RESP 18; TEMP 98.7; O2SAT 96
[2016-05-10] MEDS: ISOSORBIDE MONONITRATE 60 MG TAB PO SCH (20:06)
[2016-05-10] MEDS: WARFARIN SOD 5 MG TAB PO SCH (20:06)
[2016-05-11 05:59] LABS: INTERNATIONAL NORMALIZED RATIO 2.3 RATIO; PROTHROMBIN TIME - PATIENT 26.2 SEC (9.8-11.6)
[2016-05-11 08:00] VITALS: BP 125/85; PULSE 78; RESP 19; TEMP 97.2; O2SAT 96
[2016-05-11] MEDS: LACTULOSE SYRUP 20 GM/30 ML CUP PO SCH (08:38)
[2016-05-11] MEDS: POLYETHYLENE GLYCOL 17 GM PKG PO SCH (08:38)
[2016-05-11] MEDS: FERROUS SULFATE 325 MG (65 MG ELEMENTAL IRON) TAB PO SCH (08:38)
[2016-05-11] MEDS: DOCUSATE SODIUM 50 MG/SENNA 8.6 MG TAB PO SCH ×2 (08:38→21:16)
[2016-05-11] MEDS: QUEtiapine FUMARATE 100 MG TAB PO SCH ×2 (08:39→21:15)
[2016-05-11] MEDS: ATORVASTATIN 40 MG TAB PO SCH (08:39)
[2016-05-11] MEDS: EUCERIN CREAM 120 GM JAR TOPICAL SCH ×2 (08:39→21:18)
[2016-05-11] MEDS: CARVEDILOL 12.5 MG TAB PO SCH ×2 (08:39→21:16)
--- NOTE | 2016-05-11 14:39 | HHI.PR ---
Subjective Remarks Patient seen today room in follow-up. No new events overnight. Discussed with Valentina MCKEON. Patient comfortable Objective Vitals Vital Signs Date Time Temp Pulse Resp B/P Pulse Ox O2 Delivery O2 Flow Rate FiO2 05/11/16 08:00 97.2 78 19 125/85 96 05/10/16 20:00 98.7 83 18 143/99 96 I/O 05/10/16 05/10/16 05/10/16 05/11/16 05/11/16 05/11/16 07:00 15:00 23:00 07:00 15:00 23:00 Intake Total 240 ml 280 ml Output Total 1 ml Balance 240 ml 280 ml -1 ml Intake Oral 240 ml 280 ml Stool Total 1 ml # Voids 1 1 2 1 # Bowel Movements 0 0 Objective Remarks GENERAL: This is a well-nourished, well-developed patient, in no apparent distress. CARDIOVASCULAR: Regular rate and rhythm without murmurs, gallops, or rubs. RESPIRATORY: Clear to auscultation. Breath sounds equal bilaterally. No wheezes , rales, or rhonchi. GASTROINTESTINAL: Abdomen soft, non-tender, nondistended. Normal active bowel sounds MUSCULOSKELETAL: right BKA, Extremities without clubbing, cyanosis, or edema. NEURO: Alert & Oriented to person, situation Procedures None A/P Assessment and Plan Hospital day 209 for this unfortunate gentleman. Patient is a 60-year-old gentleman was admitted to the hospital 10/14 with acute cortical infarct. Continue current management for diabetes, and management for cognitive deficit INR 2.3 today Discharge Planning Patient will need long-term care, case management aware barriers to discharge Trisha Lim MD May 11, 2016 14:39
[2016-05-11 20:00] VITALS: BP 147/89; PULSE 112; RESP 20; TEMP 97.1; O2SAT 98
[2016-05-11] MEDS: ISOSORBIDE MONONITRATE 60 MG TAB PO SCH (21:16)
[2016-05-11] MEDS: WARFARIN SOD 5 MG TAB PO SCH (21:16)
[2016-05-12 05:01] LABS: INTERNATIONAL NORMALIZED RATIO 2.3 RATIO; PROTHROMBIN TIME - PATIENT 26.4 SEC (9.8-11.6)
[2016-05-12 08:00] VITALS: BP 133/93; PULSE 70; RESP 18; TEMP 97.5; O2SAT 97
[2016-05-12] MEDS: DOCUSATE SODIUM 50 MG/SENNA 8.6 MG TAB PO SCH ×2 (08:23→21:05)
[2016-05-12] MEDS: FERROUS SULFATE 325 MG (65 MG ELEMENTAL IRON) TAB PO SCH (08:23)
[2016-05-12] MEDS: QUEtiapine FUMARATE 100 MG TAB PO SCH ×2 (08:23→21:05)
[2016-05-12] MEDS: LACTULOSE SYRUP 20 GM/30 ML CUP PO SCH (08:23)
[2016-05-12] MEDS: POLYETHYLENE GLYCOL 17 GM PKG PO SCH (08:23)
[2016-05-12] MEDS: ATORVASTATIN 40 MG TAB PO SCH (08:24)
[2016-05-12] MEDS: CARVEDILOL 12.5 MG TAB PO SCH ×2 (08:24→21:05)
[2016-05-12] MEDS: EUCERIN CREAM 120 GM JAR TOPICAL SCH ×2 (08:25→21:06)
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
[2016-05-12 20:00] VITALS: BP 122/82; PULSE 98; RESP 22; TEMP 96.4; O2SAT 96
[2016-05-12] MEDS: ISOSORBIDE MONONITRATE 60 MG TAB PO SCH (21:05)
[2016-05-12] MEDS: WARFARIN SOD 5 MG TAB PO SCH (21:05)
[2016-05-13 05:20] LABS: PROTHROMBIN TIME - PATIENT 22.8 SEC (9.8-11.6)
[2016-05-13 08:00] VITALS: BP 127/89; PULSE 76; RESP 18; TEMP 97.9; O2SAT 97
[2016-05-13] MEDS: CARVEDILOL 12.5 MG TAB PO SCH ×2 (08:33→21:20)
[2016-05-13] MEDS: FERROUS SULFATE 325 MG (65 MG ELEMENTAL IRON) TAB PO SCH (08:33)
[2016-05-13] MEDS: ATORVASTATIN 40 MG TAB PO SCH (08:33)
[2016-05-13] MEDS: POLYETHYLENE GLYCOL 17 GM PKG PO SCH (08:33)
[2016-05-13] MEDS: LACTULOSE SYRUP 20 GM/30 ML CUP PO SCH (08:33)
[2016-05-13] MEDS: QUEtiapine FUMARATE 100 MG TAB PO SCH ×2 (08:34→21:20)
[2016-05-13] MEDS: DOCUSATE SODIUM 50 MG/SENNA 8.6 MG TAB PO SCH ×2 (08:34→21:00)
[2016-05-13] MEDS: EUCERIN CREAM 120 GM JAR TOPICAL SCH ×2 (08:42→21:00)
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
[2016-05-13 20:00] VITALS: BP 146/88; PULSE 81; RESP 16; TEMP 97.8; O2SAT 98
[2016-05-13] MEDS: ISOSORBIDE MONONITRATE 60 MG TAB PO SCH (21:20)
[2016-05-13] MEDS: WARFARIN SOD 5 MG TAB PO SCH (21:20)
[2016-05-14 08:00] VITALS: BP 121/84; PULSE 73; RESP 19; TEMP 97.5; O2SAT 97
[2016-05-14] MEDS: LACTULOSE SYRUP 20 GM/30 ML CUP PO SCH ×2 (08:47→09:00)
[2016-05-14] MEDS: FERROUS SULFATE 325 MG (65 MG ELEMENTAL IRON) TAB PO SCH (08:47)
[2016-05-14] MEDS: CARVEDILOL 12.5 MG TAB PO SCH ×2 (08:47→21:40)
[2016-05-14] MEDS: POLYETHYLENE GLYCOL 17 GM PKG PO SCH (08:47)
[2016-05-14] MEDS: DOCUSATE SODIUM 50 MG/SENNA 8.6 MG TAB PO SCH ×2 (08:48→21:39)
[2016-05-14] MEDS: QUEtiapine FUMARATE 100 MG TAB PO SCH ×2 (08:48→21:39)
[2016-05-14] MEDS: ATORVASTATIN 40 MG TAB PO SCH (08:48)
[2016-05-14] MEDS: EUCERIN CREAM 120 GM JAR TOPICAL SCH ×2 (08:49→21:42)
[2016-05-14 09:18] LABS: INTERNATIONAL NORMALIZED RATIO 1.7 RATIO; PROTHROMBIN TIME - PATIENT 18.7 SEC (9.8-11.6)
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
[2016-05-14] MEDS ORDERED: WARFARIN SOD 1 MG TAB PO ONE (21:00)
[2016-05-14 21:39] VITALS: BP 127/81; PULSE 72; RESP 18; TEMP 98.1; O2SAT 97
[2016-05-14] MEDS: ISOSORBIDE MONONITRATE 60 MG TAB PO SCH (21:39)
[2016-05-14] MEDS: WARFARIN SOD 5 MG TAB PO SCH (21:41)
[2016-05-15 06:48] LABS: INTERNATIONAL NORMALIZED RATIO 1.6 RATIO; PROTHROMBIN TIME - PATIENT 18.1 SEC (9.8-11.6)
[2016-05-15 08:00] VITALS: BP 107/82; PULSE 76; RESP 18; TEMP 97.6; O2SAT 96
[2016-05-15] MEDS: EUCERIN CREAM 120 GM JAR TOPICAL SCH ×2 (09:00→21:06)
[2016-05-15] MEDS: LACTULOSE SYRUP 20 GM/30 ML CUP PO SCH (09:47)
[2016-05-15] MEDS: POLYETHYLENE GLYCOL 17 GM PKG PO SCH (09:47)
[2016-05-15] MEDS: ATORVASTATIN 40 MG TAB PO SCH (09:47)
[2016-05-15] MEDS: CARVEDILOL 12.5 MG TAB PO SCH ×2 (09:47→21:06)
[2016-05-15] MEDS: FERROUS SULFATE 325 MG (65 MG ELEMENTAL IRON) TAB PO SCH (09:47)
[2016-05-15] MEDS: QUEtiapine FUMARATE 100 MG TAB PO SCH ×2 (09:48→21:04)
[2016-05-15] MEDS: DOCUSATE SODIUM 50 MG/SENNA 8.6 MG TAB PO SCH ×2 (09:48→21:00)
--- NOTE | 2016-05-15 17:29 | HHI.PR ---
Subjective Remarks In follow-up for severe cognitive impairment and severe discharge planning. Objective Vitals Vital Signs Date Time Temp Pulse Resp B/P Pulse Ox O2 Delivery O2 Flow Rate FiO2 05/15/16 08:00 97.6 76 18 107/82 96 05/14/16 21:39 98.1 72 18 127/81 97 I/O 05/14/16 05/14/16 05/14/16 05/15/16 05/15/16 05/15/16 07:00 15:00 23:00 07:00 15:00 23:00 Intake Total 240 ml 720 ml 60 ml 960 ml Output Total 300 ml 400 ml Balance 240 ml 720 ml -240 ml 560 ml Intake Oral 240 ml 720 ml 60 ml 960 ml Output Urine Total 300 ml 400 ml # Voids 3 4 3 # Bowel Movements 0 2 2 Objective Remarks GENERAL: This is a well-nourished, well-developed patient, in no apparent distress. CARDIOVASCULAR: Regular rate and rhythm without murmurs, gallops, or rubs. RESPIRATORY: Clear to auscultation. Breath sounds equal bilaterally. No wheezes , rales, or rhonchi. GASTROINTESTINAL: Abdomen soft, non-tender, nondistended. Normal active bowel sounds MUSCULOSKELETAL: right BKA, Extremities without clubbing, cyanosis, or edema. NEURO: Alert & Oriented to person, situation Procedures None A/P Problem List: (1) Acute kidney injury superimposed on CKD ICD Code: N17.9 Status: Acute (2) Hyperkalemia ICD Code: E87.5 Status: Acute (3) Cellulitis ICD Code: L03.90 Status: Resolved (4) Ischemic cardiomyopathy ICD Code: I25.5 Status: Chronic (5) Diabetes mellitus type 2 in obese ICD Code: E11.9 Status: Chronic (6) S/P BKA (below knee amputation) unilateral ICD Code: Z89.519 Status: Chronic (7) Acute metabolic encephalopathy ICD Code: G93.41 Status: Resolved (8) Bacteremia ICD Code: R78.81 Status: Resolved (9) Chronic systolic (congestive) heart failure ICD Code: I50.22 Status: Chronic (10) Venous stasis ulcer of left lower extremity ICD Code: I83.029 Status: Chronic (11) CVA (cerebral vascular accident) ICD Code: I63.9 Status: Chronic (12) Seborrheic dermatitis ICD Code: L21.9 Status: Chronic (13) Anemia ICD Code: D64.9 Status: Chronic (14) HTN (hypertension) ICD Code: I10 Status: Chronic (15) UTI (urinary tract infection) ICD Code: N39.0 Status: Resolved Assessment and Plan Hospital day 213 for this unfortunate gentleman. Patient is a 60-year-old gentleman was admitted to the hospital 10/14 with acute cortical infarct. Continue current management for diabetes, and management for cognitive deficit INR 1.6 today for coumadin Discharge Planning Patient will need long-term care, case management aware barriers to discharge Problem Qualifiers (1) Cellulitis: (2) S/P BKA (below knee amputation) unilateral: Qualified Code: Z89.511 - S/P BKA (below knee amputation) unilateral, right (3) CVA (cerebral vascular accident): Qualified Code: I63.9 - Cerebrovascular accident (CVA), unspecified mechanism Trisha Lim MD May 15, 2016 17:29
[2016-05-15] MEDS ORDERED: WARFARIN SOD 7.5 MG TAB PO ONE (21:00)
[2016-05-15] MEDS: ISOSORBIDE MONONITRATE 60 MG TAB PO SCH (21:05)
[2016-05-15 21:29] VITALS: BP 132/73; PULSE 60; RESP 18; TEMP 98.1; O2SAT 97
[2016-05-16 06:48] LABS: INTERNATIONAL NORMALIZED RATIO 1.7 RATIO; PROTHROMBIN TIME - PATIENT 18.9 SEC (9.8-11.6)
[2016-05-16 08:00] VITALS: BP 121/84; PULSE 71; RESP 20; TEMP 96.4; O2SAT 97
[2016-05-16] MEDS: FERROUS SULFATE 325 MG (65 MG ELEMENTAL IRON) TAB PO SCH (08:44)
[2016-05-16] MEDS: LACTULOSE SYRUP 20 GM/30 ML CUP PO SCH (08:44)
[2016-05-16] MEDS: QUEtiapine FUMARATE 100 MG TAB PO SCH ×2 (08:44→21:29)
[2016-05-16] MEDS: ATORVASTATIN 40 MG TAB PO SCH (08:44)
[2016-05-16] MEDS: POLYETHYLENE GLYCOL 17 GM PKG PO SCH (08:44)
[2016-05-16] MEDS: CARVEDILOL 12.5 MG TAB PO SCH ×2 (08:44→21:30)
[2016-05-16] MEDS: EUCERIN CREAM 120 GM JAR TOPICAL SCH (08:45)
[2016-05-16] MEDS: DOCUSATE SODIUM 50 MG/SENNA 8.6 MG TAB PO SCH ×2 (08:46→21:00)
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
[2016-05-16] MEDS: WARFARIN SOD 6 MG TAB PO SCH (16:01)
[2016-05-16 20:00] VITALS: BP 149/91; PULSE 77; RESP 20; TEMP 98.2; O2SAT 97
[2016-05-16] MEDS ORDERED: WARFARIN SOD 5 MG TAB PO SCH (21:00)
[2016-05-16] MEDS: ISOSORBIDE MONONITRATE 60 MG TAB PO SCH (21:30)
[2016-05-17 08:00] VITALS: BP 147/96; PULSE 73; RESP 20; TEMP 96.5; O2SAT 98
[2016-05-17 08:06] LABS: INTERNATIONAL NORMALIZED RATIO 1.8 RATIO
[2016-05-17] MEDS: DOCUSATE SODIUM 50 MG/SENNA 8.6 MG TAB PO SCH ×2 (09:00→20:54)
[2016-05-17] MEDS: EUCERIN CREAM 120 GM JAR TOPICAL SCH ×2 (09:00→21:00)
[2016-05-17] MEDS: CARVEDILOL 12.5 MG TAB PO SCH ×2 (09:47→20:48)
[2016-05-17] MEDS: LACTULOSE SYRUP 20 GM/30 ML CUP PO SCH (09:47)
[2016-05-17] MEDS: POLYETHYLENE GLYCOL 17 GM PKG PO SCH (09:47)
[2016-05-17] MEDS: ATORVASTATIN 40 MG TAB PO SCH (09:48)
[2016-05-17] MEDS: FERROUS SULFATE 325 MG (65 MG ELEMENTAL IRON) TAB PO SCH (09:48)
[2016-05-17] MEDS: QUEtiapine FUMARATE 100 MG TAB PO SCH ×2 (09:48→20:54)
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
[2016-05-17] MEDS: WARFARIN SOD 6 MG TAB PO SCH (16:14)
[2016-05-17 20:00] VITALS: BP 97/73; PULSE 99; RESP 16; TEMP 98.8; O2SAT 94
[2016-05-17] MEDS: ISOSORBIDE MONONITRATE 60 MG TAB PO SCH (20:49)
[2016-05-18 06:19] LABS: INTERNATIONAL NORMALIZED RATIO 1.7 RATIO; PROTHROMBIN TIME - PATIENT 19.7 SEC (9.8-11.6)
[2016-05-18 08:00] VITALS: BP 117/79; PULSE 73; RESP 20; TEMP 95.9; O2SAT 99
[2016-05-18] MEDS: LACTULOSE SYRUP 20 GM/30 ML CUP PO SCH (09:00)
[2016-05-18] MEDS: EUCERIN CREAM 120 GM JAR TOPICAL SCH ×2 (09:00→20:36)
[2016-05-18] MEDS: POLYETHYLENE GLYCOL 17 GM PKG PO SCH (09:40)
[2016-05-18] MEDS: DOCUSATE SODIUM 50 MG/SENNA 8.6 MG TAB PO SCH ×2 (09:40→20:35)
[2016-05-18] MEDS: ATORVASTATIN 40 MG TAB PO SCH (09:40)
[2016-05-18] MEDS: CARVEDILOL 12.5 MG TAB PO SCH ×2 (09:41→20:35)
[2016-05-18] MEDS: FERROUS SULFATE 325 MG (65 MG ELEMENTAL IRON) TAB PO SCH (09:41)
[2016-05-18] MEDS: QUEtiapine FUMARATE 100 MG TAB PO SCH ×2 (09:41→20:35)
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
[2016-05-18 20:00] VITALS: BP 142/94; PULSE 76; RESP 16; TEMP 97.3; O2SAT 98
[2016-05-18] MEDS: ISOSORBIDE MONONITRATE 60 MG TAB PO SCH (20:35)
[2016-05-18] MEDS ORDERED: WARFARIN SOD 7.5 MG TAB PO ONE (21:00)
[2016-05-19 05:39] LABS: INTERNATIONAL NORMALIZED RATIO 1.8 RATIO; PROTHROMBIN TIME - PATIENT 20.5 SEC (9.8-11.6)
[2016-05-19 08:00] VITALS: BP 122/83; PULSE 74; RESP 20; TEMP 97.7; O2SAT 97
[2016-05-19] MEDS: CARVEDILOL 12.5 MG TAB PO SCH ×2 (08:48→21:01)
[2016-05-19] MEDS: POLYETHYLENE GLYCOL 17 GM PKG PO SCH (08:48)
[2016-05-19] MEDS: DOCUSATE SODIUM 50 MG/SENNA 8.6 MG TAB PO SCH ×2 (08:48→21:01)
[2016-05-19] MEDS: FERROUS SULFATE 325 MG (65 MG ELEMENTAL IRON) TAB PO SCH (08:48)
[2016-05-19] MEDS: QUEtiapine FUMARATE 100 MG TAB PO SCH ×2 (08:48→21:01)
[2016-05-19] MEDS: ATORVASTATIN 40 MG TAB PO SCH (08:48)
[2016-05-19] MEDS: LACTULOSE SYRUP 20 GM/30 ML CUP PO SCH (08:49)
[2016-05-19] MEDS: EUCERIN CREAM 120 GM JAR TOPICAL SCH ×2 (08:50→21:01)
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
[2016-05-19] MEDS: WARFARIN SOD 6 MG TAB PO SCH (16:58)
[2016-05-19 20:00] VITALS: BP 121/89; PULSE 82; RESP 18; TEMP 97.9; O2SAT 96
[2016-05-19] MEDS: ISOSORBIDE MONONITRATE 60 MG TAB PO SCH (21:01)
[2016-05-20 05:09] LABS: INTERNATIONAL NORMALIZED RATIO 1.9 RATIO; PROTHROMBIN TIME - PATIENT 21.1 SEC (9.8-11.6)
[2016-05-20 08:00] VITALS: BP 139/91; PULSE 73; RESP 18; TEMP 97.3; O2SAT 97
[2016-05-20] MEDS: LACTULOSE SYRUP 20 GM/30 ML CUP PO SCH (08:51)
[2016-05-20] MEDS: QUEtiapine FUMARATE 100 MG TAB PO SCH ×2 (08:51→20:57)
[2016-05-20] MEDS: DOCUSATE SODIUM 50 MG/SENNA 8.6 MG TAB PO SCH ×2 (08:51→20:57)
[2016-05-20] MEDS: CARVEDILOL 12.5 MG TAB PO SCH ×2 (08:51→20:57)
[2016-05-20] MEDS: ATORVASTATIN 40 MG TAB PO SCH (08:52)
[2016-05-20] MEDS: FERROUS SULFATE 325 MG (65 MG ELEMENTAL IRON) TAB PO SCH (08:52)
[2016-05-20] MEDS: POLYETHYLENE GLYCOL 17 GM PKG PO SCH (08:52)
[2016-05-20] MEDS: EUCERIN CREAM 120 GM JAR TOPICAL SCH ×2 (08:53→20:58)
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
[2016-05-20] MEDS: WARFARIN SOD 6 MG TAB PO SCH (16:16)
[2016-05-20 20:00] VITALS: BP 125/80; PULSE 77; RESP 18; TEMP 98.2; O2SAT 96
[2016-05-20] MEDS: ISOSORBIDE MONONITRATE 60 MG TAB PO SCH (20:58)
[2016-05-21 06:36] LABS: INTERNATIONAL NORMALIZED RATIO 1.7 RATIO; PROTHROMBIN TIME - PATIENT 19.2 SEC (9.8-11.6)
[2016-05-21 08:00] VITALS: BP 139/89; PULSE 75; RESP 18; TEMP 97.4; O2SAT 97
[2016-05-21] MEDS: LACTULOSE SYRUP 20 GM/30 ML CUP PO SCH (08:19)
[2016-05-21] MEDS: FERROUS SULFATE 325 MG (65 MG ELEMENTAL IRON) TAB PO SCH (08:19)
[2016-05-21] MEDS: ATORVASTATIN 40 MG TAB PO SCH (08:19)
[2016-05-21] MEDS: QUEtiapine FUMARATE 100 MG TAB PO SCH ×2 (08:19→20:21)
[2016-05-21] MEDS: CARVEDILOL 12.5 MG TAB PO SCH ×2 (08:20→20:20)
[2016-05-21] MEDS: POLYETHYLENE GLYCOL 17 GM PKG PO SCH (08:20)
[2016-05-21] MEDS: DOCUSATE SODIUM 50 MG/SENNA 8.6 MG TAB PO SCH ×2 (08:20→20:20)
[2016-05-21] MEDS: EUCERIN CREAM 120 GM JAR TOPICAL SCH ×2 (09:19→20:21)
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
[2016-05-21] MEDS ORDERED: WARFARIN SOD 7.5 MG TAB PO ONE (16:00)
[2016-05-21 20:00] VITALS: BP 138/90; PULSE 80; RESP 16; TEMP 97.9; O2SAT 96
[2016-05-21] MEDS: ISOSORBIDE MONONITRATE 60 MG TAB PO SCH (20:20)
[2016-05-22 07:06] LABS: INTERNATIONAL NORMALIZED RATIO 1.8 RATIO
[2016-05-22 08:00] VITALS: BP 133/87; PULSE 71; RESP 20; TEMP 97.7; O2SAT 95
[2016-05-22] MEDS: POLYETHYLENE GLYCOL 17 GM PKG PO SCH (08:37)
[2016-05-22] MEDS: FERROUS SULFATE 325 MG (65 MG ELEMENTAL IRON) TAB PO SCH (08:37)
[2016-05-22] MEDS: DOCUSATE SODIUM 50 MG/SENNA 8.6 MG TAB PO SCH ×2 (08:37→20:32)
[2016-05-22] MEDS: QUEtiapine FUMARATE 100 MG TAB PO SCH ×2 (08:37→20:32)
[2016-05-22] MEDS: LACTULOSE SYRUP 20 GM/30 ML CUP PO SCH (08:37)
[2016-05-22] MEDS: EUCERIN CREAM 120 GM JAR TOPICAL SCH ×2 (08:38→20:32)
[2016-05-22] MEDS: ATORVASTATIN 40 MG TAB PO SCH (08:38)
[2016-05-22] MEDS: CARVEDILOL 12.5 MG TAB PO SCH ×2 (08:38→20:32)
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
[2016-05-22] MEDS ORDERED: WARFARIN SOD 6 MG TAB PO SCH (16:00)
[2016-05-22] MEDS ORDERED: WARFARIN SOD 2 MG TAB PO ONE (16:00)
[2016-05-22 20:00] VITALS: BP 131/82; PULSE 77; RESP 16; TEMP 96.7; O2SAT 98
[2016-05-22] MEDS: ISOSORBIDE MONONITRATE 60 MG TAB PO SCH (20:32)
[2016-05-23 06:26] LABS: INTERNATIONAL NORMALIZED RATIO 1.8 RATIO; PROTHROMBIN TIME - PATIENT 20.7 SEC (9.8-11.6)
[2016-05-23 08:00] VITALS: BP 143/91; PULSE 72; RESP 18; TEMP 96.9; O2SAT 99
[2016-05-23] MEDS: ATORVASTATIN 40 MG TAB PO SCH (08:26)
[2016-05-23] MEDS: CARVEDILOL 12.5 MG TAB PO SCH ×2 (08:26→22:09)
[2016-05-23] MEDS: DOCUSATE SODIUM 50 MG/SENNA 8.6 MG TAB PO SCH ×2 (08:26→22:08)
[2016-05-23] MEDS: POLYETHYLENE GLYCOL 17 GM PKG PO SCH (08:26)
[2016-05-23] MEDS: QUEtiapine FUMARATE 100 MG TAB PO SCH ×2 (08:26→22:08)
[2016-05-23] MEDS: FERROUS SULFATE 325 MG (65 MG ELEMENTAL IRON) TAB PO SCH (08:26)
[2016-05-23] MEDS: LACTULOSE SYRUP 20 GM/30 ML CUP PO SCH (08:26)
[2016-05-23] MEDS: EUCERIN CREAM 120 GM JAR TOPICAL SCH ×2 (08:27→22:09)
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
[2016-05-23 20:00] VITALS: BP 145/89; PULSE 94; RESP 16; TEMP 98.1; O2SAT 95
[2016-05-23] MEDS: WARFARIN SOD 7.5 MG TAB PO SCH (22:08)
[2016-05-23] MEDS: ISOSORBIDE MONONITRATE 60 MG TAB PO SCH (22:09)
[2016-05-24 05:35] LABS: INTERNATIONAL NORMALIZED RATIO 1.9 RATIO
[2016-05-24 08:00] VITALS: BP 121/85; PULSE 66; RESP 18; TEMP 96.9; O2SAT 95
[2016-05-24] MEDS: EUCERIN CREAM 120 GM JAR TOPICAL SCH ×2 (09:00→20:52)
[2016-05-24] MEDS: QUEtiapine FUMARATE 100 MG TAB PO SCH ×2 (09:05→20:51)
[2016-05-24] MEDS: FERROUS SULFATE 325 MG (65 MG ELEMENTAL IRON) TAB PO SCH (09:05)
[2016-05-24] MEDS: DOCUSATE SODIUM 50 MG/SENNA 8.6 MG TAB PO SCH ×2 (09:05→20:51)
[2016-05-24] MEDS: POLYETHYLENE GLYCOL 17 GM PKG PO SCH (09:05)
[2016-05-24] MEDS: LACTULOSE SYRUP 20 GM/30 ML CUP PO SCH (09:05)
[2016-05-24] MEDS: ATORVASTATIN 40 MG TAB PO SCH (09:06)
[2016-05-24] MEDS: CARVEDILOL 12.5 MG TAB PO SCH ×2 (09:06→20:51)
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
[2016-05-24 20:00] VITALS: BP 132/96; PULSE 84; RESP 18; TEMP 98.7; O2SAT 97
[2016-05-24] MEDS: WARFARIN SOD 7.5 MG TAB PO SCH (20:50)
[2016-05-24] MEDS: ISOSORBIDE MONONITRATE 60 MG TAB PO SCH (20:51)
[2016-05-25 05:50] LABS: INTERNATIONAL NORMALIZED RATIO 1.9 RATIO; PROTHROMBIN TIME - PATIENT 21.4 SEC (9.8-11.6)
[2016-05-25 08:00] VITALS: BP 127/88; PULSE 75; RESP 18; TEMP 96.3; O2SAT 94
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
[2016-05-25] MEDS: ATORVASTATIN 40 MG TAB PO SCH (10:03)
[2016-05-25] MEDS: FERROUS SULFATE 325 MG (65 MG ELEMENTAL IRON) TAB PO SCH (10:04)
[2016-05-25] MEDS: LACTULOSE SYRUP 20 GM/30 ML CUP PO SCH (10:04)
[2016-05-25] MEDS: QUEtiapine FUMARATE 100 MG TAB PO SCH ×2 (10:04→21:00)
[2016-05-25] MEDS: CARVEDILOL 12.5 MG TAB PO SCH ×2 (10:05→21:00)
[2016-05-25] MEDS: DOCUSATE SODIUM 50 MG/SENNA 8.6 MG TAB PO SCH ×2 (10:05→21:00)
[2016-05-25] MEDS: POLYETHYLENE GLYCOL 17 GM PKG PO SCH (10:16)
[2016-05-25] MEDS: EUCERIN CREAM 120 GM JAR TOPICAL SCH ×2 (10:18→21:00)
[2016-05-25 20:00] VITALS: BP 143/89; PULSE 74; RESP 16; TEMP 96.5; O2SAT 98
[2016-05-25] MEDS: ISOSORBIDE MONONITRATE 60 MG TAB PO SCH (21:00)
[2016-05-25] MEDS: WARFARIN SOD 7.5 MG TAB PO SCH (21:00)
[2016-05-26 05:23] LABS: INTERNATIONAL NORMALIZED RATIO 2.1 RATIO; PROTHROMBIN TIME - PATIENT 24.5 SEC (9.8-11.6)
[2016-05-26 08:00] VITALS: BP 152/98; PULSE 66; RESP 20; TEMP 95.6; O2SAT 99
[2016-05-26] MEDS: LACTULOSE SYRUP 20 GM/30 ML CUP PO SCH (08:50)
[2016-05-26] MEDS: CARVEDILOL 12.5 MG TAB PO SCH ×2 (08:50→20:38)
[2016-05-26] MEDS: QUEtiapine FUMARATE 100 MG TAB PO SCH ×2 (08:50→20:37)
[2016-05-26] MEDS: DOCUSATE SODIUM 50 MG/SENNA 8.6 MG TAB PO SCH ×2 (08:50→20:38)
[2016-05-26] MEDS: ATORVASTATIN 40 MG TAB PO SCH (08:50)
[2016-05-26] MEDS: FERROUS SULFATE 325 MG (65 MG ELEMENTAL IRON) TAB PO SCH (08:51)
[2016-05-26] MEDS: EUCERIN CREAM 120 GM JAR TOPICAL SCH ×2 (08:51→20:38)
[2016-05-26] MEDS: POLYETHYLENE GLYCOL 17 GM PKG PO SCH (08:51)
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
[2016-05-26 20:00] VITALS: BP 143/94; PULSE 85; RESP 18; TEMP 96.9; O2SAT 99
[2016-05-26] MEDS: ISOSORBIDE MONONITRATE 60 MG TAB PO SCH (20:37)
[2016-05-26] MEDS: WARFARIN SOD 7.5 MG TAB PO SCH (20:37)
[2016-05-27 06:18] LABS: INTERNATIONAL NORMALIZED RATIO 2.1 RATIO; PROTHROMBIN TIME - PATIENT 24.4 SEC (9.8-11.6)
[2016-05-27 08:00] VITALS: BP 120/76; PULSE 88; RESP 19; TEMP 97.8; O2SAT 96
[2016-05-27] MEDS: LACTULOSE SYRUP 20 GM/30 ML CUP PO SCH (08:26)
[2016-05-27] MEDS: POLYETHYLENE GLYCOL 17 GM PKG PO SCH (08:26)
[2016-05-27] MEDS: DOCUSATE SODIUM 50 MG/SENNA 8.6 MG TAB PO SCH ×2 (08:26→21:52)
[2016-05-27] MEDS: ATORVASTATIN 40 MG TAB PO SCH (08:26)
[2016-05-27] MEDS: QUEtiapine FUMARATE 100 MG TAB PO SCH ×2 (08:27→21:54)
[2016-05-27] MEDS: CARVEDILOL 12.5 MG TAB PO SCH ×2 (08:27→21:52)
[2016-05-27] MEDS: FERROUS SULFATE 325 MG (65 MG ELEMENTAL IRON) TAB PO SCH (08:27)
[2016-05-27] MEDS: EUCERIN CREAM 120 GM JAR TOPICAL SCH ×2 (08:28→21:55)
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
[2016-05-27 17:08] LABS: BLOOD, URINE TRACE (NEG); GLUCOSE,URINE NEG (NEG); KETONE, URINE NEG (NEG); NITRITE,URINE NEG (NEG); PH, URINE 5.5 (5.0-8.5)
[2016-05-27 17:21] LABS: URINE COLOR YELLOW (YELLW/STRAW)
[2016-05-27 17:22] LABS: METHOD OF COLLECTION CLEAN CATCH
[2016-05-27 17:23] LABS: BACTERIA, URINE RARE /hpf; COMMENT (UR) CULTURE INDICATED; CULTURE IF INDICATED CULTURE INDICATED; SQUAMOUS EPITHELIAL CELL URINE > 8 /hpf (0-5)
[2016-05-27 20:00] VITALS: BP 139/88; PULSE 83; RESP 18; TEMP 98.2; O2SAT 96
[2016-05-27] MEDS: WARFARIN SOD 7.5 MG TAB PO SCH (21:00)
[2016-05-27] MEDS: ISOSORBIDE MONONITRATE 60 MG TAB PO SCH (21:52)
[2016-05-28 08:00] VITALS: BP 140/88; PULSE 80; RESP 18; TEMP 97.8; O2SAT 94
[2016-05-28] MEDS: ATORVASTATIN 40 MG TAB PO SCH (08:39)
[2016-05-28] MEDS: POLYETHYLENE GLYCOL 17 GM PKG PO SCH (08:39)
[2016-05-28] MEDS: CARVEDILOL 12.5 MG TAB PO SCH ×2 (08:39→21:03)
[2016-05-28] MEDS: LACTULOSE SYRUP 20 GM/30 ML CUP PO SCH (08:39)
[2016-05-28] MEDS: FERROUS SULFATE 325 MG (65 MG ELEMENTAL IRON) TAB PO SCH (08:39)
[2016-05-28] MEDS: DOCUSATE SODIUM 50 MG/SENNA 8.6 MG TAB PO SCH ×2 (08:39→21:03)
[2016-05-28] MEDS: QUEtiapine FUMARATE 100 MG TAB PO SCH ×2 (08:40→21:03)
[2016-05-28] MEDS: EUCERIN CREAM 120 GM JAR TOPICAL SCH ×2 (08:41→21:03)
[2016-05-28 08:58] LABS: INTERNATIONAL NORMALIZED RATIO 2.1 RATIO; PROTHROMBIN TIME - PATIENT 24.5 SEC (9.8-11.6)
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
[2016-05-28 20:00] VITALS: BP 173/113; PULSE 87; RESP 18; TEMP 98.7; O2SAT 96
[2016-05-28] MEDS: WARFARIN SOD 7.5 MG TAB PO SCH (21:03)
[2016-05-28] MEDS: ISOSORBIDE MONONITRATE 60 MG TAB PO SCH (21:04)
[2016-05-29 08:00] VITALS: BP 114/69; PULSE 68; RESP 20; TEMP 96.8; O2SAT 98
[2016-05-29] MEDS: ATORVASTATIN 40 MG TAB PO SCH (08:12)
[2016-05-29] MEDS: FERROUS SULFATE 325 MG (65 MG ELEMENTAL IRON) TAB PO SCH (08:12)
[2016-05-29] MEDS: CARVEDILOL 12.5 MG TAB PO SCH ×2 (08:12→21:03)
[2016-05-29] MEDS: POLYETHYLENE GLYCOL 17 GM PKG PO SCH (08:12)
[2016-05-29] MEDS: QUEtiapine FUMARATE 100 MG TAB PO SCH ×2 (08:12→21:02)
[2016-05-29] MEDS: DOCUSATE SODIUM 50 MG/SENNA 8.6 MG TAB PO SCH ×2 (08:12→21:03)
[2016-05-29] MEDS: EUCERIN CREAM 120 GM JAR TOPICAL SCH ×2 (08:15→21:03)
[2016-05-29] MEDS: LACTULOSE SYRUP 20 GM/30 ML CUP PO SCH (08:15)
[2016-05-29 08:56] LABS: PROTHROMBIN TIME - PATIENT 22.4 SEC (9.8-11.6)
--- NOTE | 2016-05-29 17:35 | HHI.PR ---
Subjective Remarks Patient seen in follow-up for cognitive impairment and continue discharge plans. No new events. Seen in dayroom eating. No complaints Objective Vitals Vital Signs Date Time Temp Pulse Resp B/P Pulse Ox O2 Delivery O2 Flow Rate FiO2 05/29/16 08:00 96.8 68 20 114/69 98 05/28/16 20:00 98.7 87 18 173/113 96 I/O 05/28/16 05/28/16 05/28/16 05/29/16 05/29/16 05/29/16 07:00 15:00 23:00 07:00 15:00 23:00 Intake Total 600 ml 60 ml 480 ml Output Total 500 ml 350 ml Balance -500 ml 600 ml -290 ml 480 ml Intake Oral 600 ml 60 ml 480 ml Output Urine Total 500 ml 350 ml # Voids 3 2 # Bowel Movements 1 0 0 Objective Remarks GENERAL: This is a well-nourished, well-developed patient, in no apparent distress. CARDIOVASCULAR: Regular rate and rhythm without murmurs, gallops, or rubs. RESPIRATORY: Clear to auscultation. Breath sounds equal bilaterally. No wheezes , rales, or rhonchi. GASTROINTESTINAL: Abdomen soft, non-tender, nondistended. Normal active bowel sounds MUSCULOSKELETAL: right BKA, Extremities without clubbing, cyanosis, or edema. NEURO: Alert & Oriented to person, situation Procedures None A/P Assessment and Plan Patient is a 60-year-old gentleman was admitted to the hospital 10/14 with acute cortical infarct. Continue current management for diabetes, and management for cognitive deficit INR weekly Discharge Planning Patient will need long-term care, case management aware barriers to discharge Trisha Lim MD May 29, 2016 17:35
[2016-05-29 20:00] VITALS: BP 145/87; PULSE 98; RESP 18; TEMP 96.2; O2SAT 98
[2016-05-29] MEDS: WARFARIN SOD 7.5 MG TAB PO SCH (21:02)
[2016-05-29] MEDS: ISOSORBIDE MONONITRATE 60 MG TAB PO SCH (21:03)
[2016-05-30] MEDS: LACTULOSE SYRUP 20 GM/30 ML CUP PO SCH (08:01)
[2016-05-30] MEDS: POLYETHYLENE GLYCOL 17 GM PKG PO SCH (08:01)
[2016-05-30] MEDS: CARVEDILOL 12.5 MG TAB PO SCH ×2 (08:02→20:51)
[2016-05-30] MEDS: DOCUSATE SODIUM 50 MG/SENNA 8.6 MG TAB PO SCH ×2 (08:02→20:48)
[2016-05-30] MEDS: FERROUS SULFATE 325 MG (65 MG ELEMENTAL IRON) TAB PO SCH (08:03)
[2016-05-30] MEDS: QUEtiapine FUMARATE 100 MG TAB PO SCH ×2 (08:03→20:49)
[2016-05-30] MEDS: ATORVASTATIN 40 MG TAB PO SCH (08:03)
[2016-05-30] MEDS: EUCERIN CREAM 120 GM JAR TOPICAL SCH ×2 (08:04→20:52)
[2016-05-30 08:23] VITALS: BP 131/90; PULSE 67; RESP 16; TEMP 97.5; O2SAT 97
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
[2016-05-30 20:00] VITALS: BP 153/97; PULSE 75; RESP 18; TEMP 97.6; O2SAT 97
[2016-05-30] MEDS: WARFARIN SOD 7.5 MG TAB PO SCH (20:48)
[2016-05-30] MEDS: ISOSORBIDE MONONITRATE 60 MG TAB PO SCH (20:51)
[2016-05-31 07:56] LABS: INTERNATIONAL NORMALIZED RATIO 2.1 RATIO
[2016-05-31 08:00] VITALS: BP 104/67; PULSE 78; RESP 21; TEMP 96.2; O2SAT 99
[2016-05-31] MEDS: QUEtiapine FUMARATE 100 MG TAB PO SCH ×2 (08:46→21:30)
[2016-05-31] MEDS: POLYETHYLENE GLYCOL 17 GM PKG PO SCH (08:46)
[2016-05-31] MEDS: FERROUS SULFATE 325 MG (65 MG ELEMENTAL IRON) TAB PO SCH (08:46)
[2016-05-31] MEDS: ATORVASTATIN 40 MG TAB PO SCH (08:46)
[2016-05-31] MEDS: LACTULOSE SYRUP 20 GM/30 ML CUP PO SCH (08:46)
[2016-05-31] MEDS: DOCUSATE SODIUM 50 MG/SENNA 8.6 MG TAB PO SCH ×2 (08:46→21:35)
[2016-05-31] MEDS: CARVEDILOL 12.5 MG TAB PO SCH ×2 (08:47→21:30)
[2016-05-31] MEDS: EUCERIN CREAM 120 GM JAR TOPICAL SCH ×2 (08:52→21:35)
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
[2016-05-31 20:00] VITALS: BP 140/84; PULSE 80; RESP 20; TEMP 98; O2SAT 98
[2016-05-31] MEDS: WARFARIN SOD 7.5 MG TAB PO SCH (21:30)
[2016-05-31] MEDS: ISOSORBIDE MONONITRATE 60 MG TAB PO SCH (21:31)
[2016-06-01 08:00] VITALS: BP 141/94; PULSE 69; RESP 18; TEMP 96.7; O2SAT 97
[2016-06-01] MEDS: LACTULOSE SYRUP 20 GM/30 ML CUP PO SCH (08:04)
[2016-06-01] MEDS: DOCUSATE SODIUM 50 MG/SENNA 8.6 MG TAB PO SCH ×2 (08:04→21:41)
[2016-06-01] MEDS: FERROUS SULFATE 325 MG (65 MG ELEMENTAL IRON) TAB PO SCH (08:04)
[2016-06-01] MEDS: POLYETHYLENE GLYCOL 17 GM PKG PO SCH (08:04)
[2016-06-01] MEDS: QUEtiapine FUMARATE 100 MG TAB PO SCH ×2 (08:04→21:41)
[2016-06-01] MEDS: CARVEDILOL 12.5 MG TAB PO SCH ×2 (08:04→21:42)
[2016-06-01] MEDS: ATORVASTATIN 40 MG TAB PO SCH (08:04)
[2016-06-01] MEDS: EUCERIN CREAM 120 GM JAR TOPICAL SCH ×2 (08:05→21:44)
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
[2016-06-01 20:00] VITALS: BP 152/100; PULSE 87; RESP 18; TEMP 99.6; O2SAT 96
[2016-06-01] MEDS: WARFARIN SOD 7.5 MG TAB PO SCH (21:41)
[2016-06-01] MEDS: ISOSORBIDE MONONITRATE 60 MG TAB PO SCH (21:42)
[2016-06-02] VITALS: BP 124/78; PULSE 87; RESP 18; TEMP 99.1; O2SAT 94
[2016-06-02 06:49] LABS: INTERNATIONAL NORMALIZED RATIO 2.2 RATIO
[2016-06-02] MEDS: DOCUSATE SODIUM 50 MG/SENNA 8.6 MG TAB PO SCH ×2 (07:55→21:03)
[2016-06-02] MEDS: POLYETHYLENE GLYCOL 17 GM PKG PO SCH (07:55)
[2016-06-02] MEDS: LACTULOSE SYRUP 20 GM/30 ML CUP PO SCH (07:55)
[2016-06-02] MEDS: ATORVASTATIN 40 MG TAB PO SCH (07:55)
[2016-06-02] MEDS: FERROUS SULFATE 325 MG (65 MG ELEMENTAL IRON) TAB PO SCH (07:56)
[2016-06-02] MEDS: CARVEDILOL 12.5 MG TAB PO SCH ×2 (07:56→21:03)
[2016-06-02] MEDS: EUCERIN CREAM 120 GM JAR TOPICAL SCH ×2 (07:57→21:03)
[2016-06-02 08:00] VITALS: BP 124/81; PULSE 74; RESP 18; TEMP 96.9; O2SAT 97
[2016-06-02] MEDS: QUEtiapine FUMARATE 100 MG TAB PO SCH ×2 (09:03→21:02)
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
[2016-06-02 20:00] VITALS: BP 94/63; PULSE 72; RESP 18; TEMP 98.1; O2SAT 97
[2016-06-02] MEDS: WARFARIN SOD 7.5 MG TAB PO SCH (21:03)
[2016-06-02] MEDS: ISOSORBIDE MONONITRATE 60 MG TAB PO SCH (21:03)
[2016-06-03 08:00] VITALS: BP 124/85; PULSE 73; RESP 20; TEMP 97.4; O2SAT 96
[2016-06-03] MEDS: FERROUS SULFATE 325 MG (65 MG ELEMENTAL IRON) TAB PO SCH (09:13)
[2016-06-03] MEDS: LACTULOSE SYRUP 20 GM/30 ML CUP PO SCH (09:13)
[2016-06-03] MEDS: POLYETHYLENE GLYCOL 17 GM PKG PO SCH (09:13)
[2016-06-03] MEDS: QUEtiapine FUMARATE 100 MG TAB PO SCH ×2 (09:13→21:32)
[2016-06-03] MEDS: DOCUSATE SODIUM 50 MG/SENNA 8.6 MG TAB PO SCH ×2 (09:13→21:32)
[2016-06-03] MEDS: ATORVASTATIN 40 MG TAB PO SCH (09:14)
[2016-06-03] MEDS: CARVEDILOL 12.5 MG TAB PO SCH ×2 (09:14→21:32)
[2016-06-03] MEDS: EUCERIN CREAM 120 GM JAR TOPICAL SCH ×2 (09:15→21:35)
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
[2016-06-03 20:00] VITALS: BP_SYST 123; BP_SYST 157; BP_DIAS 106; BP_DIAS 84; PULSE 72; RESP 20; TEMP 98.9; O2SAT 97
[2016-06-03] MEDS: WARFARIN SOD 7.5 MG TAB PO SCH (21:32)
[2016-06-03] MEDS: ISOSORBIDE MONONITRATE 60 MG TAB PO SCH (21:32)
[2016-06-04 06:53] LABS: INTERNATIONAL NORMALIZED RATIO 2.2 RATIO; PROTHROMBIN TIME - PATIENT 25.4 SEC (9.8-11.6)
[2016-06-04] MEDS: LACTULOSE SYRUP 20 GM/30 ML CUP PO SCH (07:52)
[2016-06-04] MEDS: POLYETHYLENE GLYCOL 17 GM PKG PO SCH (07:52)
[2016-06-04] MEDS: FERROUS SULFATE 325 MG (65 MG ELEMENTAL IRON) TAB PO SCH (07:53)
[2016-06-04] MEDS: DOCUSATE SODIUM 50 MG/SENNA 8.6 MG TAB PO SCH ×2 (07:53→21:03)
[2016-06-04] MEDS: QUEtiapine FUMARATE 100 MG TAB PO SCH ×2 (07:53→21:04)
[2016-06-04] MEDS: ATORVASTATIN 40 MG TAB PO SCH (07:53)
[2016-06-04] MEDS: CARVEDILOL 12.5 MG TAB PO SCH ×2 (07:53→21:03)
[2016-06-04] MEDS: EUCERIN CREAM 120 GM JAR TOPICAL SCH ×2 (07:53→21:04)
[2016-06-04 08:00] VITALS: BP 154/90; PULSE 73; RESP 20; TEMP 95.6; O2SAT 98
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
[2016-06-04 20:00] VITALS: BP 122/86; PULSE 76; RESP 24; TEMP 96.9; O2SAT 100
[2016-06-04] MEDS: WARFARIN SOD 7.5 MG TAB PO SCH (21:03)
[2016-06-04] MEDS: ISOSORBIDE MONONITRATE 60 MG TAB PO SCH (21:03)
[2016-06-05 06:45] LABS: INTERNATIONAL NORMALIZED RATIO 2.8 RATIO; PROTHROMBIN TIME - PATIENT 32.3 SEC (9.8-11.6)
[2016-06-05 08:00] VITALS: BP 117/80; PULSE 69; RESP 20; TEMP 96.6; O2SAT 96
[2016-06-05] MEDS: LACTULOSE SYRUP 20 GM/30 ML CUP PO SCH ×4 (08:49→09:09)
[2016-06-05] MEDS: POLYETHYLENE GLYCOL 17 GM PKG PO SCH (08:49)
[2016-06-05] MEDS: QUEtiapine FUMARATE 100 MG TAB PO SCH ×2 (08:50→21:14)
[2016-06-05] MEDS: CARVEDILOL 12.5 MG TAB PO SCH ×2 (08:51→21:14)
[2016-06-05] MEDS: FERROUS SULFATE 325 MG (65 MG ELEMENTAL IRON) TAB PO SCH (08:52)
[2016-06-05] MEDS: ATORVASTATIN 40 MG TAB PO SCH (08:52)
[2016-06-05] MEDS: DOCUSATE SODIUM 50 MG/SENNA 8.6 MG TAB PO SCH ×2 (08:52→21:14)
[2016-06-05] MEDS: EUCERIN CREAM 120 GM JAR TOPICAL SCH ×2 (08:59→21:14)
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
[2016-06-05 20:00] VITALS: BP 127/85; PULSE 78; RESP 20; TEMP 98.2; O2SAT 96
[2016-06-05] MEDS: ISOSORBIDE MONONITRATE 60 MG TAB PO SCH (21:13)
[2016-06-05] MEDS: WARFARIN SOD 7.5 MG TAB PO SCH (21:14)
[2016-06-06 08:00] VITALS: BP 127/80; PULSE 88; RESP 18; TEMP 97.2; O2SAT 99
[2016-06-06 08:42] LABS: INTERNATIONAL NORMALIZED RATIO 2.7 RATIO; PROTHROMBIN TIME - PATIENT 31.1 SEC (9.8-11.6)
[2016-06-06] MEDS: EUCERIN CREAM 120 GM JAR TOPICAL SCH ×2 (08:56→20:22)
[2016-06-06] MEDS: LACTULOSE SYRUP 20 GM/30 ML CUP PO SCH ×2 (08:56→08:59)
[2016-06-06] MEDS: DOCUSATE SODIUM 50 MG/SENNA 8.6 MG TAB PO SCH ×2 (08:56→20:23)
[2016-06-06] MEDS: FERROUS SULFATE 325 MG (65 MG ELEMENTAL IRON) TAB PO SCH (08:56)
[2016-06-06] MEDS: ATORVASTATIN 40 MG TAB PO SCH (08:56)
[2016-06-06] MEDS: QUEtiapine FUMARATE 100 MG TAB PO SCH ×2 (08:56→20:23)
[2016-06-06] MEDS: CARVEDILOL 12.5 MG TAB PO SCH ×2 (08:56→20:24)
[2016-06-06] MEDS: POLYETHYLENE GLYCOL 17 GM PKG PO SCH (08:56)
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
[2016-06-06 20:00] VITALS: BP 113/75; PULSE 70; RESP 18; TEMP 96.6; O2SAT 90
[2016-06-06] MEDS: ISOSORBIDE MONONITRATE 60 MG TAB PO SCH (20:23)
[2016-06-06] MEDS: WARFARIN SOD 7.5 MG TAB PO SCH (20:23)
[2016-06-07 08:00] VITALS: BP 121/84; PULSE 73; RESP 18; TEMP 98.4; O2SAT 95
[2016-06-07] MEDS: CARVEDILOL 12.5 MG TAB PO SCH ×2 (09:32→21:22)
[2016-06-07] MEDS: DOCUSATE SODIUM 50 MG/SENNA 8.6 MG TAB PO SCH ×2 (09:32→21:21)
[2016-06-07] MEDS: FERROUS SULFATE 325 MG (65 MG ELEMENTAL IRON) TAB PO SCH (09:32)
[2016-06-07] MEDS: QUEtiapine FUMARATE 100 MG TAB PO SCH ×2 (09:32→21:20)
[2016-06-07] MEDS: LACTULOSE SYRUP 20 GM/30 ML CUP PO SCH (09:32)
[2016-06-07] MEDS: ATORVASTATIN 40 MG TAB PO SCH (09:32)
[2016-06-07] MEDS: EUCERIN CREAM 120 GM JAR TOPICAL SCH ×2 (09:33→21:00)
[2016-06-07] MEDS: POLYETHYLENE GLYCOL 17 GM PKG PO SCH (09:33)
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
[2016-06-07 14:05] LABS: AUTOMATED NEUTROPHIL # 6.8 TH/MM3 (1.8-7.7); BASOPHIL % 0.4 % (0.0-2.0); EOSINOPHIL # 0.5 TH/MM3 (0-0.4); EOSINOPHIL % 4.9 % (0.0-4.0); HEMATOCRIT 29.5 % (39.0-51.0); HEMO FLAGS DIFF FINAL; LYMPH % 14.9 % (9.0-44.0); LYMPHOCYTE # 1.4 TH/MM3 (1.0-4.8); MEAN CELL VOLUME 82.2 FL (80.0-100.0); MEAN CORPUSCULAR HEMOGLOBIN 27.1 PG (27.0-34.0); MONO % 6.5 % (0.0-8.0); NEUT % 73.3 % (16.0-70.0); PLATELET COUNT 211 TH/MM3 (150-450); RED BLOOD COUNT 3.59 MIL/MM3 (4.50-5.90); WHITE BLOOD COUNT 9.3 TH/MM3 (4.0-11.0)
[2016-06-07 14:13] LABS: POTASSIUM 4.3 MEQ/L (3.5-5.1)
[2016-06-07 14:16] LABS: BICARBONATE 26.6 MEQ/L (21.0-32.0)
[2016-06-07 14:24] LABS: INTERNATIONAL NORMALIZED RATIO 2.6 RATIO; PROTHROMBIN TIME - PATIENT 30.2 SEC (9.8-11.6)
[2016-06-07 20:00] VITALS: BP 145/89; PULSE 74; RESP 18; TEMP 97.6; O2SAT 97
[2016-06-07] MEDS: WARFARIN SOD 7.5 MG TAB PO SCH (21:21)
[2016-06-07] MEDS: ISOSORBIDE MONONITRATE 60 MG TAB PO SCH (21:25)
[2016-06-08 08:00] VITALS: BP 136/83; PULSE 79; RESP 18; TEMP 99.2; O2SAT 96
[2016-06-08 08:02] LABS: INTERNATIONAL NORMALIZED RATIO 2.4 RATIO; PROTHROMBIN TIME - PATIENT 27.4 SEC (9.8-11.6)
[2016-06-08] MEDS: QUEtiapine FUMARATE 100 MG TAB PO SCH ×2 (08:13→21:04)
[2016-06-08] MEDS: ATORVASTATIN 40 MG TAB PO SCH (08:13)
[2016-06-08] MEDS: FERROUS SULFATE 325 MG (65 MG ELEMENTAL IRON) TAB PO SCH (08:13)
[2016-06-08] MEDS: DOCUSATE SODIUM 50 MG/SENNA 8.6 MG TAB PO SCH ×2 (08:13→21:06)
[2016-06-08] MEDS: CARVEDILOL 12.5 MG TAB PO SCH ×2 (08:13→21:05)
[2016-06-08] MEDS: POLYETHYLENE GLYCOL 17 GM PKG PO SCH (08:14)
[2016-06-08] MEDS: EUCERIN CREAM 120 GM JAR TOPICAL SCH ×2 (08:14→21:07)
[2016-06-08] MEDS: LACTULOSE SYRUP 20 GM/30 ML CUP PO SCH (08:14)
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
[2016-06-08 17:00] VITALS: BP 123/78; PULSE 96; RESP 20; TEMP 102.3; O2SAT 96
[2016-06-08] MEDS ORDERED: ACETAMINOPHEN 650 MG SUPP PR PRN (17:00)
[2016-06-08 17:17] LABS: BLOOD, URINE LARGE (NEG); GLUCOSE,URINE NEG (NEG); KETONE, URINE NEG (NEG); NITRITE,URINE NEG (NEG); PH, URINE 5.5 (5.0-8.5)
[2016-06-08 17:31] LABS: AUTOMATED NEUTROPHIL # 10.5 TH/MM3 (1.8-7.7); BASOPHIL % 0.3 % (0.0-2.0); EOSINOPHIL % 0.2 % (0.0-4.0); HEMATOCRIT 31.3 % (39.0-51.0); LYMPH % 4.4 % (9.0-44.0); LYMPHOCYTE # 0.5 TH/MM3 (1.0-4.8); MEAN CORPUSCULAR HEMOGLOBIN 27.6 PG (27.0-34.0); MEAN CORPUSCULAR HGB CONC 33.3 % (32.0-36.0); NEUT % 88.1 % (16.0-70.0); PLATELET COUNT 170 TH/MM3 (150-450); RED BLOOD COUNT 3.77 MIL/MM3 (4.50-5.90); RED CELL DISTRIBUTION WIDTH 14.7 % (11.6-17.2); WHITE BLOOD COUNT 11.8 TH/MM3 (4.0-11.0)
[2016-06-08 17:38] LABS: POTASSIUM 4.8 MEQ/L (3.5-5.1)
[2016-06-08 17:41] LABS: BICARBONATE 22.3 MEQ/L (21.0-32.0)
[2016-06-08 17:44] LABS: HEMO FLAGS DIFF FINAL
--- NOTE | 2016-06-08 17:46 | RADHPO ---
EXAM DATE/TIME: 06/08/2016 17:10 [facility] COMPARISON: CHEST SINGLE AP, November 06, 2015, 11:35. INDICATIONS : Fever. MEDICAL HISTORY : Hypertension. Diabetes. SURGICAL HISTORY : CABG. ENCOUNTER: Initial ACUITY: 1 day PAIN SCORE: Non-responsive. LOCATION: Bilateral chest FINDINGS: Sternal wires from previous median sternotomy are noted. The most superior wire is fractured. The h eart is enlarged. Pulmonary vascularity is normal. There is no alveolar consolidation, pleural effus ion or pneumothorax. CONCLUSION: 1. Compensated cardiomegaly. 2. Previous bypass. Didier Clay MD FACR on June 08, 2016 at 17:37 Board Certified Radiologist. This report was verified electronically.
[2016-06-08 17:54] LABS: METHOD OF COLLECTION VOIDED; URINE COLOR YELLOW (YELLW/STRAW)
[2016-06-08 17:55] LABS: BACTERIA, URINE MOD /hpf; COMMENT (UR) CULTURE INDICATED; CULTURE IF INDICATED CULTURE INDICATED; WBC, URINE 100-200 /hpf (0-5)
[2016-06-08] MEDS ORDERED: Gentamicin Consult Pharmacy 1 EA XX SCH (18:00)
[2016-06-08] MEDS: SODIUM CHLOR 0.9% 1000 ML INJ 1,000 ML IV SCH (18:38)
[2016-06-08] MEDS: AZTREONAM INJ 1,000 MG in SODIUM CHLORIDE 0.9% INJ 100 ML IV SCH (18:45)
[2016-06-08 20:00] VITALS: BP 136/83; PULSE 84; RESP 18; TEMP 98; O2SAT 94
[2016-06-08] MEDS ORDERED: GENTAMICIN IV SCH (20:00)
[2016-06-08] MEDS ORDERED: SODIUM CHLORIDE 0.9% IV SCH (20:00)
[2016-06-08] MEDS: WARFARIN SOD 7.5 MG TAB PO SCH (21:06)
[2016-06-08] MEDS: ISOSORBIDE MONONITRATE 60 MG TAB PO SCH (21:06)
[2016-06-09 05:42] LABS: AUTOMATED NEUTROPHIL # 7.1 TH/MM3 (1.8-7.7); BASOPHIL % 0.2 % (0.0-2.0); HEMATOCRIT 27.4 % (39.0-51.0); LYMPH % 5.6 % (9.0-44.0); LYMPHOCYTE # 0.5 TH/MM3 (1.0-4.8); MEAN CELL VOLUME 82.3 FL (80.0-100.0); MEAN CORPUSCULAR HEMOGLOBIN 27.6 PG (27.0-34.0); MEAN CORPUSCULAR HGB CONC 33.5 % (32.0-36.0); MONO % 5.9 % (0.0-8.0); NEUT % 88.3 % (16.0-70.0); PLATELET COUNT 154 TH/MM3 (150-450); RED BLOOD COUNT 3.34 MIL/MM3 (4.50-5.90); RED CELL DISTRIBUTION WIDTH 14.1 % (11.6-17.2); WHITE BLOOD COUNT 8.1 TH/MM3 (4.0-11.0)
[2016-06-09 05:50] LABS: CHLORIDE 110 MEQ/L (98-107); POTASSIUM 4.2 MEQ/L (3.5-5.1); SODIUM (NA) 142 MEQ/L (136-145)
[2016-06-09 05:53] LABS: HEMO FLAGS DIFF FINAL
[2016-06-09] MEDS: AZTREONAM INJ 1,000 MG in SODIUM CHLORIDE 0.9% INJ 100 ML IV SCH ×2 (05:53→17:41)
[2016-06-09 05:54] LABS: ANION GAP 10 MEQ/L (5-15); BLOOD UREA NITROGEN 43 MG/DL (7-18)
[2016-06-09 05:57] LABS: ALT (GPT) 14 U/L (12-78); AST (GOT) 13 U/L (15-37); GLOMERULAR FILTRATION RATE 36 ML/MIN (>89)
[2016-06-09 05:58] LABS: INTERNATIONAL NORMALIZED RATIO 2.2 RATIO; PROTHROMBIN TIME - PATIENT 24.8 SEC (9.8-11.6)
[2016-06-09 05:59] LABS: TOTAL BILIRUBIN ADULT 0.3 MG/DL (0.2-1.0)
[2016-06-09 06:00] LABS: ALKALINE PHOSPHATASE 83 U/L (45-117)
[2016-06-09] MEDS ORDERED: PHARMACY ORDERED LAB XX ONE (06:00)
[2016-06-09] MEDS: FERROUS SULFATE 325 MG (65 MG ELEMENTAL IRON) TAB PO SCH (08:54)
[2016-06-09] MEDS: CARVEDILOL 12.5 MG TAB PO SCH ×2 (08:54→21:40)
[2016-06-09] MEDS: DOCUSATE SODIUM 50 MG/SENNA 8.6 MG TAB PO SCH ×2 (08:54→21:40)
[2016-06-09] MEDS: QUEtiapine FUMARATE 100 MG TAB PO SCH ×2 (08:54→21:40)
[2016-06-09] MEDS: ATORVASTATIN 40 MG TAB PO SCH (08:55)
[2016-06-09] MEDS: POLYETHYLENE GLYCOL 17 GM PKG PO SCH (08:55)
[2016-06-09] MEDS: EUCERIN CREAM 120 GM JAR TOPICAL SCH ×2 (08:56→21:41)
[2016-06-09] MEDS: LACTULOSE SYRUP 20 GM/30 ML CUP PO SCH (08:56)
[2016-06-09 09:45] VITALS: BP 129/81; PULSE 82; RESP 18; TEMP 98.7; O2SAT 97
[2016-06-09 11:40] VITALS: BP 140/82; PULSE 78; RESP 16; TEMP 97.9; O2SAT 96
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
[2016-06-09 16:30] VITALS: BP 152/89; PULSE 74; RESP 16; TEMP 97.8; O2SAT 97
--- NOTE | 2016-06-09 16:31 | RADHPO ---
EXAM DATE/TIME: 06/09/2016 16:11 [facility] COMPARISON: CT BRAIN W/O CONTRAST, February 26, 2016, 20:28. INDICATIONS : Altered mental status. Lethargic. RADIATION DOSE: 61.93 CTDIvol (mGy) MEDICAL HISTORY : Diabetes mellitus type 2. Hypertension. SURGICAL HISTORY : CABG ENCOUNTER: Initial ACUITY: 1 day PAIN SCALE: 0/10 LOCATION: cranial TECHNIQUE: Multiple contiguous axial images were obtained of the head. Using automated exposure control and adj ustment of the mA and/or kV according to patient size, radiation dose was kept as low as reasonably a chievable to obtain optimal diagnostic quality images. FINDINGS: CEREBRUM: There is diffuse moderate atrophic change again noted is sulcal and ventricular prominence. There are old lacunar infarcts in the basal ganglia. No evidence of midline shift, mass lesion, hemorrhage or acute infarction. No extra-axial fluid collections are seen. POSTERIOR FOSSA: The cerebellum and brainstem are intact. The 4th ventricle is midline. The cerebellopontine angle i s unremarkable. EXTRACRANIAL: The visualized portion of the orbits is intact. SKULL: The calvaria is intact. No evidence of skull fracture. CONCLUSION: 1. No acute hemorrhage, mass or acute infarction. 2. Atrophy and old lacunar infarcts. Thiago Heredia MD on June 09, 2016 at 16:29 Board Certified Radiologist. This report was verified electronically.
[2016-06-09] MEDS: SODIUM CHLOR 0.9% 1000 ML INJ 1,000 ML IV SCH ×2 (17:41→22:53)
[2016-06-09 20:00] VITALS: BP 118/83; PULSE 68; RESP 13; TEMP 97.2; O2SAT 93
[2016-06-09] MEDS: WARFARIN SOD 7.5 MG TAB PO SCH (21:40)
[2016-06-09] MEDS: ISOSORBIDE MONONITRATE 60 MG TAB PO SCH (21:40)
[2016-06-10] VITALS: BP 104/72; PULSE 76; RESP 20; TEMP 98.5; O2SAT 95
[2016-06-10 04:00] VITALS: BP 106/76; PULSE 69; RESP 20; TEMP 97.5; O2SAT 96
[2016-06-10] MEDS: AZTREONAM INJ 1,000 MG in SODIUM CHLORIDE 0.9% INJ 100 ML IV SCH (06:01)
[2016-06-10 07:26] LABS: AUTOMATED NEUTROPHIL # 4.7 TH/MM3 (1.8-7.7); BASOPHIL % 0.4 % (0.0-2.0); EOSINOPHIL # 0.1 TH/MM3 (0-0.4); EOSINOPHIL % 1.6 % (0.0-4.0); HEMATOCRIT 25.7 % (39.0-51.0); HEMO FLAGS DIFF FINAL; LYMPH % 13.4 % (9.0-44.0); LYMPHOCYTE # 0.9 TH/MM3 (1.0-4.8); MEAN CELL VOLUME 83.9 FL (80.0-100.0); MEAN CORPUSCULAR HEMOGLOBIN 27.8 PG (27.0-34.0); MEAN CORPUSCULAR HGB CONC 33.2 % (32.0-36.0); NEUT % 71.6 % (16.0-70.0); PLATELET COUNT 118 TH/MM3 (150-450); RED BLOOD COUNT 3.06 MIL/MM3 (4.50-5.90); RED CELL DISTRIBUTION WIDTH 14.5 % (11.6-17.2); WHITE BLOOD COUNT 6.6 TH/MM3 (4.0-11.0)
[2016-06-10 07:37] LABS: BICARBONATE 22.2 MEQ/L (21.0-32.0); INTERNATIONAL NORMALIZED RATIO 2.4 RATIO
[2016-06-10] MEDS: CARVEDILOL 12.5 MG TAB PO SCH ×2 (09:04→20:54)
[2016-06-10] MEDS: LACTULOSE SYRUP 20 GM/30 ML CUP PO SCH (09:04)
[2016-06-10] MEDS: POLYETHYLENE GLYCOL 17 GM PKG PO SCH (09:04)
[2016-06-10] MEDS: ATORVASTATIN 40 MG TAB PO SCH (09:04)
[2016-06-10] MEDS: QUEtiapine FUMARATE 100 MG TAB PO SCH ×2 (09:04→20:54)
[2016-06-10] MEDS: FERROUS SULFATE 325 MG (65 MG ELEMENTAL IRON) TAB PO SCH (09:04)
[2016-06-10] MEDS: DOCUSATE SODIUM 50 MG/SENNA 8.6 MG TAB PO SCH ×2 (09:04→20:54)
[2016-06-10] MEDS: EUCERIN CREAM 120 GM JAR TOPICAL SCH ×2 (09:06→20:55)
[2016-06-10 09:11] VITALS: BP 117/77; PULSE 69; RESP 18; TEMP 96.8; O2SAT 96
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
[2016-06-10 14:05] VITALS: BP 118/78; PULSE 72; RESP 14; TEMP 98.4; O2SAT 84
[2016-06-10 16:30] VITALS: BP 147/91; PULSE 82; RESP 16; TEMP 98.4; O2SAT 97
[2016-06-10 20:00] VITALS: BP 143/95; PULSE 84; RESP 22; TEMP 98.9; O2SAT 96
[2016-06-10] MEDS ORDERED: GENTAMICIN IV SCH (20:00)
[2016-06-10] MEDS ORDERED: SODIUM CHLORIDE 0.9% IV SCH (20:00)
[2016-06-10] MEDS: WARFARIN SOD 7.5 MG TAB PO SCH (20:54)
[2016-06-10] MEDS: ISOSORBIDE MONONITRATE 60 MG TAB PO SCH (20:54)
[2016-06-11] VITALS: BP 114/80; PULSE 75; RESP 20; O2SAT 95
[2016-06-11] MEDS: ACETAMINOPHEN 325 MG TAB PO PRN (00:19)
[2016-06-11 04:20] VITALS: BP 115/76; PULSE 74; RESP 20; TEMP 98.7; O2SAT 96
[2016-06-11] MEDS ORDERED: [UNRECOGNIZED DRUG - OTHER] XX ONE (06:00)
[2016-06-11 08:00] VITALS: BP 120/76; PULSE 70; RESP 20; TEMP 97.7; O2SAT 97
[2016-06-11] MEDS: POLYETHYLENE GLYCOL 17 GM PKG PO SCH (09:00)
[2016-06-11] MEDS: EUCERIN CREAM 120 GM JAR TOPICAL SCH ×2 (09:00→21:27)
[2016-06-11] MEDS ORDERED: NALOXONE HCL 0.4 MG/ML AMP IV PRN (09:30)
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
[2016-06-11] MEDS ORDERED: ONDANSETRON HCL 4 MG/2 ML VIAL IV PUSH PRN (09:45)
[2016-06-11] MEDS: LACTULOSE SYRUP 20 GM/30 ML CUP PO SCH (09:53)
[2016-06-11] MEDS: QUEtiapine FUMARATE 100 MG TAB PO SCH ×2 (09:53→21:18)
[2016-06-11] MEDS: DOCUSATE SODIUM 50 MG/SENNA 8.6 MG TAB PO SCH ×2 (09:54→21:18)
[2016-06-11] MEDS: ATORVASTATIN 40 MG TAB PO SCH (09:54)
[2016-06-11] MEDS: CARVEDILOL 12.5 MG TAB PO SCH ×2 (09:54→21:18)
[2016-06-11] MEDS: FERROUS SULFATE 325 MG (65 MG ELEMENTAL IRON) TAB PO SCH (09:54)
[2016-06-11] MEDS: MORPHINE SULFATE 4 MG/ML INJ IV PRN ×2 (09:55→13:31)
[2016-06-11 10:47] LABS: BASOPHIL % 0.3 % (0.0-2.0); EOSINOPHIL # 0.3 TH/MM3 (0-0.4); HEMATOCRIT 26.4 % (39.0-51.0); HEMO FLAGS DIFF FINAL; LYMPH % 14.3 % (9.0-44.0); MEAN CORPUSCULAR HEMOGLOBIN 27.2 PG (27.0-34.0); MEAN CORPUSCULAR HGB CONC 32.8 % (32.0-36.0); MONO % 12.2 % (0.0-8.0); NEUT % 69.2 % (16.0-70.0); PLATELET COUNT 120 TH/MM3 (150-450); RED BLOOD COUNT 3.19 MIL/MM3 (4.50-5.90); RED CELL DISTRIBUTION WIDTH 14.3 % (11.6-17.2); WHITE BLOOD COUNT 7.2 TH/MM3 (4.0-11.0)
[2016-06-11 10:48] LABS: CHLORIDE 113 MEQ/L (98-107); POTASSIUM 4.1 MEQ/L (3.5-5.1); SODIUM (NA) 146 MEQ/L (136-145)
[2016-06-11 10:52] LABS: ANION GAP 11 MEQ/L (5-15); BICARBONATE 22.1 MEQ/L (21.0-32.0)
[2016-06-11 10:53] LABS: BLOOD UREA NITROGEN 38 MG/DL (7-18)
[2016-06-11 10:55] LABS: ALT (GPT) 21 U/L (12-78); AST (GOT) 18 U/L (15-37); GLOMERULAR FILTRATION RATE 48 ML/MIN (>89)
[2016-06-11 10:57] LABS: TOTAL BILIRUBIN ADULT 0.3 MG/DL (0.2-1.0)
[2016-06-11 10:58] LABS: ALKALINE PHOSPHATASE 89 U/L (45-117)
[2016-06-11] MEDS ORDERED: DIATRIZOATE MEGLUM/DIATRIZOATE SOD 9 ML CUP PO ONE (11:00)
[2016-06-11 12:00] VITALS: BP 136/100; PULSE 74; RESP 20; TEMP 97.4; O2SAT 98
[2016-06-11] MEDS: SODIUM CHLOR 0.45% 1000 ML INJ 1,000 ML IV SCH (13:00)
[2016-06-11] MEDS ORDERED: IOHEXOL 350 MG/ML 10 ML VIAL (for RAD DIAG) IV ONE (13:42)
--- NOTE | 2016-06-11 13:54 | RADHPO ---
EXAM DATE/TIME: 06/11/2016 13:19 [place] COMPARISON: No previous studies available for comparison. INDICATIONS : Diffuse abdominal pain for two days. IV CONTRAST: 71 cc Omnipaque 350 (iohexol) IV ORAL CONTRAST: Prescribed oral contrast ingested. RADIATION DOSE: 20.50 CTDIvol (mGy) MEDICAL HISTORY : Renal calculi. Hypertension. Congestive heart failure. SURGICAL HISTORY : CABG ENCOUNTER: Initial ACUITY: 2 days PAIN SCALE: 7/10 LOCATION: Bilateral abdomen TECHNIQUE: Volumetric scanning of the abdomen and pelvis was performed. Using automated exposure control and ad justment of the mA and/or kV according to patient size, radiation dose was kept as low as reasonably achievable to obtain optimal diagnostic quality images. FINDINGS: LOWER LUNGS: The visualized lower lungs are clear. LIVER: Homogeneous density without lesion. There is no dilation of the biliary tree. Dilated gallbladder co ntaining multiple layering stones. SPLEEN: Normal size without lesion. PANCREAS: Within normal limits. KIDNEYS: Normal in size and shape. There is no mass, stone or hydronephrosis. ADRENAL GLANDS: Within normal limits. VASCULAR: There is no aortic aneurysm. BOWEL/MESENTERY: The stomach, small bowel, and colon demonstrate no acute abnormality. Diverticulosis without divertic ulitis. There is no free intraperitoneal air or fluid. ABDOMINAL WALL: Within normal limits. RETROPERITONEUM: There is no lymphadenopathy. BLADDER: No wall thickening or mass. REPRODUCTIVE: Within normal limits. INGUINAL: There is no lymphadenopathy or hernia. MUSCULOSKELETAL: Within normal limits for patient age. CONCLUSION: 1. Distended gallbladder containing multiple gallstones. 2. Diverticulosis without diverticulitis. Jakub Chandra MD on June 11, 2016 at 13:51 Board Certified Radiologist. This report was verified electronically.
[2016-06-11 20:00] VITALS: BP 135/88; PULSE 84; RESP 20; TEMP 99.8; O2SAT 95
[2016-06-11] MEDS: WARFARIN SOD 7.5 MG TAB PO SCH (21:17)
[2016-06-11] MEDS: ISOSORBIDE MONONITRATE 60 MG TAB PO SCH (21:18)
[2016-06-12] MEDS: SODIUM CHLOR 0.45% 1000 ML INJ 1,000 ML IV SCH (00:55)
[2016-06-12] MEDS: MORPHINE SULFATE 4 MG/ML INJ IV PRN ×2 (01:41→05:06)
[2016-06-12 04:00] VITALS: BP 147/87; PULSE 82; RESP 20; TEMP 98.1; O2SAT 96
[2016-06-12 06:38] LABS: POTASSIUM 4.1 MEQ/L (3.5-5.1)
[2016-06-12 06:39] LABS: PROTHROMBIN TIME - PATIENT 47.2 SEC (9.8-11.6)
[2016-06-12 07:30] LABS: BICARBONATE 22.9 MEQ/L (21.0-32.0)
[2016-06-12 08:00] VITALS: BP 154/93; PULSE 83; RESP 20; TEMP 99.8; O2SAT 94
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
[2016-06-12] MEDS: DOCUSATE SODIUM 50 MG/SENNA 8.6 MG TAB PO SCH ×2 (08:37→20:57)
[2016-06-12] MEDS: POLYETHYLENE GLYCOL 17 GM PKG PO SCH (08:37)
[2016-06-12] MEDS: QUEtiapine FUMARATE 100 MG TAB PO SCH ×2 (08:37→20:57)
[2016-06-12] MEDS: FERROUS SULFATE 325 MG (65 MG ELEMENTAL IRON) TAB PO SCH (08:37)
[2016-06-12] MEDS: LACTULOSE SYRUP 20 GM/30 ML CUP PO SCH (08:37)
[2016-06-12] MEDS: ATORVASTATIN 40 MG TAB PO SCH (08:37)
[2016-06-12] MEDS: EUCERIN CREAM 120 GM JAR TOPICAL SCH ×2 (08:38→20:57)
[2016-06-12] MEDS: CARVEDILOL 12.5 MG TAB PO SCH ×2 (08:38→20:57)
[2016-06-12 16:05] VITALS: BP 126/85; PULSE 81; RESP 16; TEMP 98.9; O2SAT 97
[2016-06-12] MEDS: ACETAMINOPHEN/HYDROcodone 325 MG/5 MG TAB PO PRN (18:44)
[2016-06-12 20:00] VITALS: BP 133/72; PULSE 80; RESP 16; TEMP 99; O2SAT 98
[2016-06-12] MEDS: ISOSORBIDE MONONITRATE 60 MG TAB PO SCH (20:57)
[2016-06-13] MEDS: ACETAMINOPHEN/HYDROcodone 325 MG/5 MG TAB PO PRN (00:51)
[2016-06-13 05:52] LABS: INTERNATIONAL NORMALIZED RATIO 4.9 RATIO; PROTHROMBIN TIME - PATIENT 57.8 SEC (9.8-11.6)
[2016-06-13 08:00] VITALS: BP 122/76; PULSE 79; RESP 18; TEMP 97.8; O2SAT 99
--- NOTE | 2016-06-13 08:24 | RADHPO ---
EXAM DATE/TIME: 06/13/2016 07:57 [facility] COMPARISON: No previous studies available for comparison. INDICATIONS : Gallstones. MEDICAL HISTORY : Myocardial infarction. Hypercholesterolemia. Congestive heart failure. CAD. HTN. Chest pain. Renal ca lculi. Gangrene, right foot. Gait problems. Diabetes. SURGICAL HISTORY : CABG. Coronary artery stent. Right below knee amputation. ENCOUNTER: Subsequent ACUITY: 3 weeks PAIN SCORE: 3/10 LOCATION: Right upper quadrant MEASUREMENTS: LIVER: 17.4 cm length COMMON DUCT: 3 mm RIGHT KIDNEY: 12.1 x 5.7 x 7.0 cm FINDINGS: LIVER: There is no duct dilatation however I do not get the left lobe of the liver. COMMON DUCT: No intraluminal mass or stone visualized. GALLBLADDER: Multiple gallstones are present in the gallbladder without gallbladder wall thickening. There is no tenderness over the gallbladder. PANCREAS: The visualized portions are within normal limits. RIGHT KIDNEY: 1.3 cm cyst right mid kidney without hydronephrosis. CONCLUSION: Multiple gallstones without tenderness over the gallbladder. Didier Clay MD FACR on June 13, 2016 at 8:21 Board Certified Radiologist. This report was verified electronically.
[2016-06-13] MEDS: FERROUS SULFATE 325 MG (65 MG ELEMENTAL IRON) TAB PO SCH (09:25)
[2016-06-13] MEDS: QUEtiapine FUMARATE 100 MG TAB PO SCH ×2 (09:25→21:17)
[2016-06-13] MEDS: CARVEDILOL 12.5 MG TAB PO SCH ×2 (09:25→21:18)
[2016-06-13] MEDS: DOCUSATE SODIUM 50 MG/SENNA 8.6 MG TAB PO SCH ×2 (09:25→21:17)
[2016-06-13] MEDS: LACTULOSE SYRUP 20 GM/30 ML CUP PO SCH (09:25)
[2016-06-13] MEDS: POLYETHYLENE GLYCOL 17 GM PKG PO SCH (09:25)
[2016-06-13] MEDS: ATORVASTATIN 40 MG TAB PO SCH (09:25)
[2016-06-13] MEDS: EUCERIN CREAM 120 GM JAR TOPICAL SCH ×2 (09:27→21:19)
[2016-06-13 11:57] VITALS: BP 118/79; PULSE 80; RESP 17; TEMP 97.6; O2SAT 99
[2016-06-13 12:00] VITALS: BP 118/79; PULSE 80; RESP 17; TEMP 97.6; O2SAT 99
[2016-06-13] MEDS: BISACODYL 10 MG SUPP PR PRN (13:09)
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
[2016-06-13 16:00] VITALS: BP 118/85; PULSE 79; RESP 18; TEMP 98.1; O2SAT 98
[2016-06-13] MEDS ORDERED: ACETAMINOPHEN 325 MG TAB PO PRN (19:15)
[2016-06-13 20:00] VITALS: BP 148/96; PULSE 86; RESP 20; TEMP 98.3; O2SAT 97
[2016-06-13] MEDS: ISOSORBIDE MONONITRATE 60 MG TAB PO SCH (21:18)
[2016-06-14 04:00] VITALS: BP 108/78; PULSE 75; RESP 20; TEMP 95.3; O2SAT 95
[2016-06-14 07:24] LABS: INTERNATIONAL NORMALIZED RATIO 5.8 RATIO; PROTHROMBIN TIME - PATIENT 69.7 SEC (9.8-11.6)
[2016-06-14 08:00] VITALS: BP 113/74; PULSE 74; RESP 20; TEMP 97.9; O2SAT 94
[2016-06-14 08:29] LABS: CHLORIDE 111 MEQ/L (98-107); POTASSIUM 3.9 MEQ/L (3.5-5.1); SODIUM (NA) 144 MEQ/L (136-145)
[2016-06-14 08:42] LABS: ALKALINE PHOSPHATASE 119 U/L (45-117); ALT (GPT) 17 U/L (12-78); ANION GAP 10 MEQ/L (5-15); AST (GOT) 17 U/L (15-37); BICARBONATE 22.6 MEQ/L (21.0-32.0); BLOOD UREA NITROGEN 33 MG/DL (7-18); GLOMERULAR FILTRATION RATE 41 ML/MIN (>89); TOTAL BILIRUBIN ADULT 0.3 MG/DL (0.2-1.0)
[2016-06-14 08:57] LABS: AUTOMATED NEUTROPHIL # 7.3 TH/MM3 (1.8-7.7); BASOPHIL % 0.3 % (0.0-2.0); EOSINOPHIL # 0.3 TH/MM3 (0-0.4); EOSINOPHIL % 3.3 % (0.0-4.0); HEMATOCRIT 25.4 % (39.0-51.0); HEMO FLAGS DIFF FINAL; LYMPH % 12.5 % (9.0-44.0); LYMPHOCYTE # 1.2 TH/MM3 (1.0-4.8); MEAN CELL VOLUME 80.8 FL (80.0-100.0); MEAN CORPUSCULAR HEMOGLOBIN 26.6 PG (27.0-34.0); MEAN CORPUSCULAR HGB CONC 32.8 % (32.0-36.0); MONO % 9.9 % (0.0-8.0); RED BLOOD COUNT 3.14 MIL/MM3 (4.50-5.90); RED CELL DISTRIBUTION WIDTH 14.1 % (11.6-17.2); WHITE BLOOD COUNT 9.8 TH/MM3 (4.0-11.0)
[2016-06-14 08:59] LABS: PLATELET COUNT 205 TH/MM3 (150-450)
[2016-06-14] MEDS: EUCERIN CREAM 120 GM JAR TOPICAL SCH ×2 (09:00→21:56)
[2016-06-14] MEDS: POLYETHYLENE GLYCOL 17 GM PKG PO SCH (09:00)
[2016-06-14] MEDS: DOCUSATE SODIUM 50 MG/SENNA 8.6 MG TAB PO SCH ×2 (09:00→21:55)
[2016-06-14] MEDS: ACETAMINOPHEN/HYDROcodone 325 MG/5 MG TAB PO PRN ×2 (09:07→21:55)
[2016-06-14] MEDS: LACTULOSE SYRUP 20 GM/30 ML CUP PO SCH (09:10)
[2016-06-14] MEDS: ATORVASTATIN 40 MG TAB PO SCH (09:11)
[2016-06-14] MEDS: CARVEDILOL 12.5 MG TAB PO SCH ×2 (09:11→21:54)
[2016-06-14] MEDS: QUEtiapine FUMARATE 100 MG TAB PO SCH ×2 (09:11→21:53)
[2016-06-14] MEDS: FERROUS SULFATE 325 MG (65 MG ELEMENTAL IRON) TAB PO SCH (09:11)
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
[2016-06-14] MEDS ORDERED: SODIUM CHLORIDE 0.9% FLUSH 5 ML FLUSH FLUSH PRN (11:00)
[2016-06-14] MEDS ORDERED: PHYTONADIONE 5 MG TAB PO ONE (11:00)
[2016-06-14] MEDS: SODIUM CHLOR 0.9% 1000 ML INJ 1,000 ML IV SCH ×2 (11:55→21:58)
[2016-06-14 12:16] VITALS: BP 117/86; PULSE 69; RESP 18; TEMP 97.6; O2SAT 95
[2016-06-14 16:00] VITALS: BP 118/71; PULSE 73; RESP 18; TEMP 97.6; O2SAT 96
[2016-06-14 20:00] VITALS: BP 145/88; PULSE 76; RESP 20; TEMP 98.3; O2SAT 95
[2016-06-14] MEDS: SODIUM CHLORIDE 0.9% FLUSH 5 ML FLUSH FLUSH SCH (21:52)
[2016-06-14] MEDS: ISOSORBIDE MONONITRATE 60 MG TAB PO SCH (21:54)
--- NOTE | 2016-06-14 23:46 | MB ---
cc: CARLYN BHARDWAJ MD DATE OF CONSULTATION: 06/14/2016 REASON FOR CONSULTATION: Rule out acute cholecystitis. HISTORY OF PRESENT ILLNESS The patient is a 61-year-old male who presented 10/15/2015 approximately 8 months ago status post found down, altered mental status. He has multiple medical issues and was noted to have cellulitis of the left lower leg. He has had further extensive workup, and has had a very prolonged hospital stay and slow to recover. He recently, per reports, has developed abdominal pain. Also the pain was noted to be significant when the patient is sitting upright. The patient is an extremely poor historian, minimal interaction and only verbalizes to very few of my questions. Per notes, the patient has right-sided pain that is significant and again on eliciting further history of pain, the patient denies any significant pain. He also denies any pain on palpation during my exam. He had further workup including a was white count 9.8, noted to be normal. His T bili, AST, ALT are also within normal range, alk phos is mildly elevated. He had imaging including CT of the abdomen and pelvis that is noted to distended gallbladder containing stones. This was followed by an ultrasound showing and confirming multiple stones. No sonographic Painter's sign. No gallbladder wall thickening and common bile duct 3 millimeters within normal limits. The patient has noted to be tolerating a diet, however, he has in the last couple days noted decreased p.o. intake. The patient is again neurologically impaired. He does not open his eyes during my exam. Psychiatry is also following the patient, and the patient is noted to have previous stroke in the past. The patient appears to be having bowel movements. There is no evidence of recent fevers or chills. PAST MEDICAL HISTORY: 1. Coronary artery disease. Ejection fraction of 35%. 2. Ischemic cardiomyopathy. 3. CHF. 4. Peripheral vascular disease. 5. Hypertension. 6. Hyperlipidemia. 7. Diabetes. 8. Obesity. 9. Obstructive sleep apnea. 10. Hypercholesterolemia. PAST SURGICAL HISTORY: Right lower extremity below-knee amputation. CABG. Left kidney stent. ALLERGIES Penicillin. SOCIAL HISTORY unable to obtain due to current status MEDICATIONS See EMR. FAMILY HISTORY AND SOCIAL HISTORY Unable to obtain at this time. REVIEW OF SYSTEMS General: Unable to obtain. HEENT: Unable to obtain. Respiratory: Unable to obtain. Cardiac: Unable to obtain. Abdomen: Per reports abdominal pain. Extremities: Right lower BKA. Psych: Unable to obtain. Neurologic: Full neurologic exam unable to obtain. Endocrine: Unable to obtain, diabetes. : Unable to obtain PHYSICAL EXAMINATION General: The patient in no acute distress. HEENT: Eyes are closed not opening to questioning or exam. Clavicles nontender. Heart: S1-S2. Lungs: Bilateral expansion, clear. Abdomen: Soft, obese, nontender, nondistended. No rebound. No pain elicited on placing the patient upright. Extremities: Right lower BKA well-healed, left lower extremity distal cellulitis. Neurologic: Difficult to obtain. : wnl LABORATORY AND DIAGNOSTIC DATA WBC 9.8, hemoglobin 8.3, hematocrit 25.4, platelets 205, sodium of 1.4, potassium 3.9, chloride 111, BUN 33, creatinine 1.7, glucose 99, calcium 8.6, T bili 0.3, AST 17, ALT 17, alkaline phos is 119, albumin 2.5, INR 5.8. IMAGING STUDIES Reviewed by myself. CT abdomen and pelvis, distended gallbladder, multiple gallstones, diverticulosis. Gallbladder ultrasound, multiple gallstones. No sonographic Painter's sign, common bile duct 3 millimeters. No wall thickening. ASSESSMENT A 61-year-old male, multiple medical issues, prolonged hospital stay, reports of increased abdominal pain, evidence of distended gallbladder with cholelithiasis, no evidence of thickened gallbladder wall inflammatory process within gallbladder. PLAN After full clinical and radiologic workup, the patient with the above-named issues including again multiple medical issues for which he is undergoing treatment medicine and cardiology is following closely for this. The patient does not appear to elicit any pain on deep and superficial palpation of the abdomen. The patient also with relatively normal liver functions. total bilirubin and white count. At this point in time I have a low suspicion for gallbladder etiology or pathology causing the patient's acute pain, again on my exam I was unable to elicit significant abdominal discomfort, pain or evidence of problems. Further I recommend continue repeat laboratory values, also would recommend continued abdominal exams to assess if pain does arise. Further, the patient may benefit from HIDA scan to evaluate gallbladder function and rule out acute cholecystitis. We will continue monitoring first and consider HIDA scan in several days if the pain does return. I question whether pain is more a result from neurologic etiology such as spinal cord or elements of constipation perhaps. We will continue to follow. Thank you for the consultation. MD DONA Watts/ISABEL /10:43 PM /11:31 PM JAZMIN
[2016-06-15] VITALS: BP 113/84; PULSE 72; RESP 20; TEMP 98.3; O2SAT 97
[2016-06-15 04:00] VITALS: BP 141/86; PULSE 78; RESP 16; TEMP 98.2; O2SAT 96
[2016-06-15] MEDS: ACETAMINOPHEN/HYDROcodone 325 MG/5 MG TAB PO PRN ×2 (05:58→21:01)
[2016-06-15] MEDS: SODIUM CHLOR 0.9% 1000 ML INJ 1,000 ML IV SCH ×2 (05:59→16:11)
[2016-06-15] MEDS: SODIUM CHLORIDE 0.9% FLUSH 5 ML FLUSH FLUSH SCH ×2 (09:00→20:58)
[2016-06-15] MEDS: CARVEDILOL 12.5 MG TAB PO SCH ×3 (09:00→21:00)
[2016-06-15] MEDS: ATORVASTATIN 40 MG TAB PO SCH ×2 (09:00→09:42)
[2016-06-15] MEDS: QUEtiapine FUMARATE 100 MG TAB PO SCH ×3 (09:00→20:59)
[2016-06-15] MEDS: LACTULOSE SYRUP 20 GM/30 ML CUP PO SCH ×2 (09:00→09:41)
[2016-06-15] MEDS: FERROUS SULFATE 325 MG (65 MG ELEMENTAL IRON) TAB PO SCH ×2 (09:00→09:42)
[2016-06-15] MEDS: DOCUSATE SODIUM 50 MG/SENNA 8.6 MG TAB PO SCH ×3 (09:00→20:59)
[2016-06-15] MEDS: POLYETHYLENE GLYCOL 17 GM PKG PO SCH ×2 (09:00→09:41)
[2016-06-15] MEDS: EUCERIN CREAM 120 GM JAR TOPICAL SCH ×2 (09:43→21:02)
[2016-06-15 10:36] VITALS: BP 142/90; PULSE 79; RESP 18; TEMP 98.1; O2SAT 93
[2016-06-15 12:00] VITALS: BP 152/93; PULSE 87; RESP 20; TEMP 98.3; O2SAT 96
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
[2016-06-15 16:01] LABS: INTERNATIONAL NORMALIZED RATIO 1.3 RATIO; PROTHROMBIN TIME - PATIENT 14.9 SEC (9.8-11.6)
[2016-06-15 16:13] VITALS: BP 140/84; PULSE 77; RESP 20; TEMP 98.4; O2SAT 98
--- NOTE | 2016-06-15 17:34 | HHI.PR ---
Subjective Subjective Notes Eating dinner in common area Shakes head yes when asked about abdominal pain Objective Vitals/I&O Vital Signs Date Time Temp Pulse Resp B/P Pulse Ox O2 Delivery O2 Flow Rate FiO2 06/15/16 16:13 98.4 77 20 140/84 98 Labs Laboratory Tests Test 06/15/16 15:30 Prothrombin Time 14.9 Prothromb Time International 1.3 Ratio Cardiovascular: Regular Lungs: Clear Abdomen: Other (non distended; tender at epigastric area ) Extremities: No edema A/P Assessment and Plan 61 year old male with multiple medical problems now with abdominal pain -HIDA ordered for tomorrow -Tolerating meals -Will follow up scan tomorrow Attending Statement patient seen at bedside abd pain increased will check HIDA Attestation The exam, history, and the medical decision-making described in the above note were completed with the assistance of the mid-level provider. I reviewed and agree with the findings presented. I attest that I had a [id number] encounter with the patient on the same day, and personally performed and documented my assessment and findings in the medical record. Jennifer Kelley Jun 15, 2016 17:34 Gagandeep Panchal MD Jun 26, 2016 21:12
[2016-06-15 20:00] VITALS: BP 152/92; PULSE 99; RESP 20; TEMP 98.7; O2SAT 94
[2016-06-15] MEDS: ISOSORBIDE MONONITRATE 60 MG TAB PO SCH (20:59)
[2016-06-15] MEDS: BISACODYL 10 MG SUPP PR PRN (21:00)
[2016-06-16 00:27] VITALS: BP 121/88; PULSE 88; RESP 14; TEMP 98.9; O2SAT 95
[2016-06-16] MEDS: SODIUM CHLOR 0.9% 1000 ML INJ 1,000 ML IV SCH ×2 (03:40→12:01)
[2016-06-16 05:26] LABS: BASOPHIL % 0.3 % (0.0-2.0); EOSINOPHIL # 0.2 TH/MM3 (0-0.4); EOSINOPHIL % 1.9 % (0.0-4.0); HEMATOCRIT 22.8 % (39.0-51.0); LYMPH % 11.8 % (9.0-44.0); LYMPHOCYTE # 1.2 TH/MM3 (1.0-4.8); MEAN CELL VOLUME 80.9 FL (80.0-100.0); MEAN CORPUSCULAR HEMOGLOBIN 26.8 PG (27.0-34.0); MEAN CORPUSCULAR HGB CONC 33.1 % (32.0-36.0); MONO % 7.6 % (0.0-8.0); NEUT % 78.4 % (16.0-70.0); PLATELET COUNT 279 TH/MM3 (150-450); RED BLOOD COUNT 2.82 MIL/MM3 (4.50-5.90); RED CELL DISTRIBUTION WIDTH 13.8 % (11.6-17.2); WHITE BLOOD COUNT 10.2 TH/MM3 (4.0-11.0)
[2016-06-16 05:29] LABS: HEMO FLAGS DIFF FINAL
[2016-06-16 05:43] LABS: CHLORIDE 114 MEQ/L (98-107); POTASSIUM 3.9 MEQ/L (3.5-5.1); SODIUM (NA) 145 MEQ/L (136-145)
[2016-06-16 05:45] LABS: INTERNATIONAL NORMALIZED RATIO 1.2 RATIO; PROTHROMBIN TIME - PATIENT 13.9 SEC (9.8-11.6)
[2016-06-16 05:48] LABS: ANION GAP 8 MEQ/L (5-15); BICARBONATE 23.2 MEQ/L (21.0-32.0); BLOOD UREA NITROGEN 28 MG/DL (7-18)
[2016-06-16 05:51] LABS: ALT (GPT) 14 U/L (12-78); AST (GOT) 16 U/L (15-37); GLOMERULAR FILTRATION RATE 56 ML/MIN (>89)
[2016-06-16 05:52] LABS: TOTAL BILIRUBIN ADULT 0.3 MG/DL (0.2-1.0)
[2016-06-16 05:54] LABS: ALKALINE PHOSPHATASE 119 U/L (45-117)
[2016-06-16] MEDS: ATORVASTATIN 40 MG TAB PO SCH (07:42)
[2016-06-16] MEDS: CARVEDILOL 12.5 MG TAB PO SCH ×2 (07:43→20:47)
[2016-06-16] MEDS: ACETAMINOPHEN/HYDROcodone 325 MG/5 MG TAB PO PRN ×2 (07:43→17:40)
[2016-06-16] MEDS: FERROUS SULFATE 325 MG (65 MG ELEMENTAL IRON) TAB PO SCH (07:44)
[2016-06-16] MEDS: QUEtiapine FUMARATE 100 MG TAB PO SCH ×2 (07:44→20:47)
[2016-06-16] MEDS: DOCUSATE SODIUM 50 MG/SENNA 8.6 MG TAB PO SCH ×2 (07:44→20:47)
[2016-06-16] MEDS: POLYETHYLENE GLYCOL 17 GM PKG PO SCH (07:46)
[2016-06-16] MEDS: LACTULOSE SYRUP 20 GM/30 ML CUP PO SCH (07:46)
[2016-06-16] MEDS: EUCERIN CREAM 120 GM JAR TOPICAL SCH ×2 (07:47→20:48)
[2016-06-16 08:00] VITALS: BP 142/101; PULSE 78; RESP 20; TEMP 98.1; O2SAT 94
[2016-06-16] MEDS: SODIUM CHLORIDE 0.9% FLUSH 5 ML FLUSH FLUSH SCH ×2 (09:00→20:45)
[2016-06-16] MEDS ORDERED: WARFARIN SOD 5 MG TAB PO ONE (09:15)
--- NOTE | 2016-06-16 10:22 | RADHPO ---
EXAM DATE/TIME: 06/16/2016 08:23 This report includes an Addendum and supersedes previous reports for this exam. [facility] COMPARISON: US ABDOMEN - GALLBLADDER, June 13, 2016, 7:57. INDICATIONS : Abdominal pain for 1 day. DOSE: 4.1 mCi Tc99m Mebrofenin IV MEDICAL HISTORY : Diabetes mellitus type 2. Congestive heart failure. Myocardial infarction. SURGICAL HISTORY : Coronary artery stent. CABG Right foot amputation. ENCOUNTER: Initial ACUITY: 1 day PAIN SCALE: 3/10 LOCATION: Right upper quadrant TECHNIQUE: Following the intravenous administration of radiotracer, dynamic sequential images were performed wit h continuous acquisition. FINDINGS: HEPATIC KINETICS: There is prompt uptake of radiotracer in the liver. No focal defects are seen. There is normal rate of washout from the hepatic parenchyma. BILIARY CLEARANCE: Activity is first seen in the extrahepatic biliary system at 10 minutes. There is normal excretion i nto the small bowel. GALLBLADDER: Activity is never identified in the gallbladder lumen. BILIARY ENTRIC REFLUX: Single episode of biliary enteric reflux. CONCLUSION: 1. Scintigraphic findings concerning for acute cholecystitis with nonvisualization of the gallbladder lumen. 2. Single episode of biliary enteric reflux. 3. Normal excretion of radiotracer through the extrahepatic tree into the small bowel. Sameer Alexandra MD on June 16, 2016 at 10:17 Board Certified Radiologist. This report was verified electronically. ADDENDUM: A 20 hour delay shows activity in the expected location of the colon. No residual activity in the anatoliy er. Nonvisualization of the gallbladder. Conclusion remains unchanged. Sameer Alexandra MD on June 17, 2016 at 12:05 Board Certified Radiologist. This report was verified electronically.
--- NOTE | 2016-06-16 11:43 | HHI.PR ---
Subjective Remarks Patient seen and examined today. Patient still complaining of abdominal pain. Objective Vitals Vital Signs Date Time Temp Pulse Resp B/P Pulse Ox O2 Delivery O2 Flow Rate FiO2 06/16/16 10:35 14 06/16/16 08:00 98.1 78 20 142/101 94 06/16/16 00:27 98.9 88 14 121/88 95 06/15/16 20:00 98.7 99 20 152/92 94 06/15/16 16:13 98.4 77 20 140/84 98 06/15/16 12:00 98.3 87 20 152/93 96 I/O 06/15/16 06/15/16 06/15/16 06/16/16 06/16/16 06/16/16 07:00 15:00 23:00 07:00 15:00 23:00 Intake Total 412 ml 1000 ml 414 ml 865 ml Balance 412 ml 1000 ml 414 ml 865 ml IV Total 412 ml 1000 ml 414 ml 865 ml # Voids 2 1 2 3 # Bowel Movements 0 1 Result Diagram: 06/16/16 0427 06/16/16 042 Objective Remarks GENERAL: Well-developed, well-nourished, in no acute distress. Alert and orientated to person HEENT: Head is normocephalic without any lesions or masses noted. Facial features are symmetric. Extraocular muscles are intact. Conjunctivae were clear. NECK: Trachea midline no deviation. CARDIAC: Regular rhythm, regular rate. S1/S2 are heard. No murmurs gallops or rubs. LUNGS: Clear to auscultation bilaterally. No wheeze, rhonchi or rales. No use of accessory muscles on inspiration or expiration. ABDOMEN: Soft, tenderness noted right upper quadrant with positive Painter sign, positive guarding. Positive rebound. Nondistended. Bowel sounds heard in all 4 quadrants. No organomegaly or masses. EXTREMITIES: No edema, pulses are equal bilaterally. No cyanosis or clubbing. Right below--knee amputation. NEUROLOGY: Mood and affect appear appropriate. Cranial nerves II through XII grossly intact. Moving all extremities, speech is clear Procedures None Urinary Catheter: No Vascular Central Line Catheter: No A/P Assessment and Plan 60-year-old male with admitted 10/14 with acute cortical infarct. Patient remains with significant cognitive deficit. Abdominal pain, right upper quadrant Patient with persistent pain, decreased by mouth intake, as well as findings of positive Painter, rebound, guarding. CT the abdomen shows gallstones with distended gallbladder Abdominal ultrasound indicates gallstones HIDA scan shows signs of acute cholecystitis Continue nothing by mouth, continue IV fluids Consulted general surgery for evaluation, indicates that he has low suspicion for gallbladder etiology or pathology. He recommended continue repeat laboratory values and abdominal exams to assess if pain does arise. We'll notify surgery of HIDA scan report, patient's persistent abdominal pain, will keep patient nothing by mouth, continue IV fluids. Diet can be advanced per surgery at their discretion Bilateral cerebrovascular accident, with Intermittent and persistent cognitive defect -MRI showed acute cortical infarct of the right cerebral peduncle to the pelvis , left thalamus punctate area of infarct -Neurology last seen patient on 11/13/15, recommended long-term anticoagulation -Continue with Statin. -Continue Coumadin daily and monitor INR/PT keep INR between 2 and 3, pharmacy consult for dosing. INR 1.2, -Reconsulted PT/OT, patient will require intermittent therapy while he remains in the hospital so he does not decompensate -Out of bed with nursing only. Patient was counseled to not get out of bed on his own. Fall risk due to cognitive deficit -Psychiatry reconsulted 02/17 for evaluation and appreciate recommendations on patient's cognition, agitation -Seroquel 100 mg daily and 150 mg at bedtime Urinary tract infection, resolved Patient asymptomatic, no fever, leukocytosis, signs of infection Urine culture indicates enterococcus faecalis which is resistant to Cipro Status post Macrobid 100 mg twice daily for 10 days Repeat urine culture 05/27/16 indicates 50-100,000 colonies mixed char Hypertension: Blood pressure labile Amlodipine 10 mg daily carvedilol 25 bid, Imdur 60 daily Ischemic Cardiomyopathy/chronic systolic CHF LVEF 35% on echo 03/2015. Denies shortness of breath. Compensated. -Continue Coreg, Imdur, enalapril. -Could consider AICD if patient is able to consent, however patient is currently unable to consent -Fluid and sodium restrictions, follow volume status. Chronic kidney disease stage 3/4. Stable -Patient with intermittent worsening due to poor by mouth intake -Avoid nephrotoxins. -Monitor BMP intermittently -Discontinue DIALLO inhibitor due to hyperkalemia Anemia with iron deficiency, hemoglobin stable Iron studies indicate iron 45, TIBC 232, ferritin 345 Continue ferrous sulfate 325 mg daily Continue monitor CBC intermittently Seborrhea dermatitis Status post hydrocortisone cream for 2 weeks Encourage proper hygiene Diabetic mellitus - Glucose was well controlled. All insulin discontinued. -accu-checks discontinued as patient's blood sugar well controlled and Hgb A1c 6.9. -continue diet control Peripheral arterial disease-stable. -Continue anticoagulation Constipation, patient having bowel movement every 2-3 days -Abdominal x-ray 02/16 indicates moderate amount of stool in the colon on the left side. -Milk of magnesia as needed. -MiraLAX, lactulose, Haydee-Colace daily, lactulose, MiraLAX -Dulcolax as needed DVT prophylaxis - patient on Coumadin Discharge Planning Discharge planning per case management Truman Fulton Jun 16, 2016 11:43
[2016-06-16 12:00] VITALS: BP 125/85; PULSE 70; RESP 20; TEMP 96.9; O2SAT 95
[2016-06-16 12:34] LABS: AUTOMATED NEUTROPHIL # 6.7 TH/MM3 (1.8-7.7); BASOPHIL # 0.2 TH/MM3 (0-0.2); BASOPHIL % 1.7 % (0.0-2.0); EOSINOPHIL # 0.3 TH/MM3 (0-0.4); EOSINOPHIL % 2.8 % (0.0-4.0); HEMATOCRIT 23.2 % (39.0-51.0); HEMO FLAGS DIFF FINAL; LYMPH % 12.7 % (9.0-44.0); LYMPHOCYTE # 1.1 TH/MM3 (1.0-4.8); MEAN CELL VOLUME 82.1 FL (80.0-100.0); MEAN CORPUSCULAR HEMOGLOBIN 27.9 PG (27.0-34.0); NEUT % 74.8 % (16.0-70.0); PLATELET COUNT 234 TH/MM3 (150-450); RED BLOOD COUNT 2.83 MIL/MM3 (4.50-5.90); RED CELL DISTRIBUTION WIDTH 13.7 % (11.6-17.2)
[2016-06-16 16:00] VITALS: BP 145/93; PULSE 73; RESP 18; TEMP 96.5; O2SAT 97
--- NOTE | 2016-06-16 19:49 | HHI.PR ---
Subjective Subjective Notes Resting in bed States he has abdominal pain Objective Vitals/I&O Vital Signs Date Time Temp Pulse Resp B/P Pulse Ox O2 Delivery O2 Flow Rate FiO2 06/16/16 18:50 14 06/16/16 16:00 96.5 73 145/93 97 Labs Laboratory Tests Test 06/16/16 06/16/16 04:27 12:20 White Blood Count 10.2 9.0 Red Blood Count 2.82 2.83 Hemoglobin 7.6 7.9 Hematocrit 22.8 23.2 Mean Corpuscular Volume 80.9 82.1 Mean Corpuscular Hemoglobin 26.8 27.9 Mean Corpuscular Hemoglobin 33.1 34.0 Concent Red Cell Distribution Width 13.8 13.7 Platelet Count 279 234 Mean Platelet Volume 6.6 6.4 Neutrophils (%) (Auto) 78.4 74.8 Lymphocytes (%) (Auto) 11.8 12.7 Monocytes (%) (Auto) 7.6 8.0 Eosinophils (%) (Auto) 1.9 2.8 Basophils (%) (Auto) 0.3 1.7 Neutrophils # (Auto) 8.0 6.7 Lymphocytes # (Auto) 1.2 1.1 Monocytes # (Auto) 0.8 0.7 Eosinophils # (Auto) 0.2 0.3 Basophils # (Auto) 0.0 0.2 CBC Comment DIFF FINAL DIFF FINAL Differential Comment Prothrombin Time 13.9 Prothromb Time International 1.2 Ratio Sodium Level 145 Potassium Level 3.9 Chloride Level 114 Carbon Dioxide Level 23.2 Anion Gap 8 Blood Urea Nitrogen 28 Creatinine 1.30 Estimat Glomerular Filtration 56 Rate Random Glucose 107 Calcium Level 8.1 Total Bilirubin 0.3 Aspartate Amino Transf 16 (AST/SGOT) Alanine Aminotransferase 14 (ALT/SGPT) Alkaline Phosphatase 119 Total Protein 6.4 Albumin 2.2 Cardiovascular: Regular Lungs: Clear Abdomen: Other (RUQ tenderness with palpation; soft ) Extremities: No edema A/P Assessment and Plan 61 year old male with multiple medical problems now with abdominal pain -HIDA reviewed with Dr. Panchal -Will discuss as a surgical team operative vs non operative approach -Patient is a poor surgical candidate due to other medical problems Attending Statement Patient seen at bedside hida + will likely be candidate for cholecystostomy tube, vs obs and abx Attestation The exam, history, and the medical decision-making described in the above note were completed with the assistance of the mid-level provider. I reviewed and agree with the findings presented. I attest that I had a [id number] encounter with the patient on the same day, and personally performed and documented my assessment and findings in the medical record. Jennifer Kelley Jun 16, 2016 19:49 Gagandeep Panchal MD Jul 03, 2016 20:52
[2016-06-16 20:00] VITALS: BP 151/102; PULSE 78; RESP 18; TEMP 97.9; O2SAT 96
[2016-06-16] MEDS: ISOSORBIDE MONONITRATE 60 MG TAB PO SCH (20:46)
[2016-06-16] MEDS: WARFARIN SOD 7.5 MG TAB PO SCH (20:47)
[2016-06-17] VITALS (8 sets, daily range): BP systolic 126–157; BP diastolic 87–100; PULSE 75–88; RESP 16–18; TEMP 97.1–98.5; O2SAT 95–99
[2016-06-17 07:35] LABS: INTERNATIONAL NORMALIZED RATIO 1.5 RATIO; PROTHROMBIN TIME - PATIENT 16.5 SEC (9.8-11.6)
[2016-06-17] MEDS: EUCERIN CREAM 120 GM JAR TOPICAL SCH ×2 (09:00→21:02)
[2016-06-17] MEDS: SODIUM CHLORIDE 0.9% FLUSH 5 ML FLUSH FLUSH SCH ×2 (09:00→20:59)
[2016-06-17] MEDS: DOCUSATE SODIUM 50 MG/SENNA 8.6 MG TAB PO SCH ×2 (09:37→20:55)
[2016-06-17] MEDS: POLYETHYLENE GLYCOL 17 GM PKG PO SCH (09:37)
[2016-06-17] MEDS: CARVEDILOL 12.5 MG TAB PO SCH ×2 (09:38→20:55)
[2016-06-17] MEDS: ATORVASTATIN 40 MG TAB PO SCH (09:38)
[2016-06-17] MEDS: LACTULOSE SYRUP 20 GM/30 ML CUP PO SCH (09:38)
[2016-06-17] MEDS: QUEtiapine FUMARATE 100 MG TAB PO SCH ×2 (09:38→20:55)
[2016-06-17] MEDS: FERROUS SULFATE 325 MG (65 MG ELEMENTAL IRON) TAB PO SCH (09:38)
--- NOTE | 2016-06-17 12:37 | HHI.PR ---
Subjective Remarks Patient seen and examined today. Patient still with right upper quadrant abdominal pain. Waiting for surgery to review HIDA scan for further recommendations. Patient is still nothing by mouth and on IV fluids Objective Vitals Vital Signs Date Time Temp Pulse Resp B/P Pulse Ox O2 Delivery O2 Flow Rate FiO2 06/17/16 08:00 98.5 80 16 157/97 95 06/16/16 20:00 97.9 78 18 151/102 96 06/16/16 18:50 14 06/16/16 16:00 96.5 73 18 145/93 97 I/O 06/16/16 06/16/16 06/16/16 06/17/16 06/17/16 06/17/16 07:00 15:00 23:00 07:00 15:00 23:00 Intake Total 865 ml 0 ml 0 ml Output Total 100 ml Balance 865 ml 0 ml -100 ml Intake Oral 0 ml 0 ml IV Total 865 ml Output Urine Total 100 ml # Voids 3 5 1 2 # Bowel Movements 0 0 0 Result Diagram: 06/16/16 1220 06/16/16 0427 Objective Remarks GENERAL: Well-developed, well-nourished, in no acute distress. Alert and orientated to person HEENT: Head is normocephalic without any lesions or masses noted. Facial features are symmetric. Extraocular muscles are intact. Conjunctivae were clear. NECK: Trachea midline no deviation. CARDIAC: Regular rhythm, regular rate. S1/S2 are heard. No murmurs gallops or rubs. LUNGS: Clear to auscultation bilaterally. No wheeze, rhonchi or rales. No use of accessory muscles on inspiration or expiration. ABDOMEN: Soft, tenderness noted right upper quadrant with positive Painter sign, positive guarding. Positive rebound. Nondistended. Bowel sounds heard in all 4 quadrants. No organomegaly or masses. EXTREMITIES: No edema, pulses are equal bilaterally. No cyanosis or clubbing. Right below--knee amputation. NEUROLOGY: Mood and affect appear appropriate. Cranial nerves II through XII grossly intact. Moving all extremities, speech is clear Procedures None Urinary Catheter: No Vascular Central Line Catheter: No A/P Assessment and Plan 60-year-old male with admitted 10/14 with acute cortical infarct. Patient remains with significant cognitive deficit. Abdominal pain, right upper quadrant Patient with persistent pain, decreased by mouth intake, as well as findings of positive Painter, rebound, guarding. CT the abdomen shows gallstones with distended gallbladder Abdominal ultrasound indicates gallstones HIDA scan shows signs of acute cholecystitis Consulted general surgery for evaluation, indicates that he has low suspicion for gallbladder etiology or pathology. He recommended continue repeat laboratory values and abdominal exams to assess if pain does arise. Awaiting surgery to make recommendations for acute cholecystitis, following HIDA report Continue nothing by mouth, continue IV fluids until cleared by surgery Gen. surgery recommending that patient have a cholecystotomy drain put in place for management of his acute cholecystitis. Patient is unable to consent himself due to his cognition and legal guardianship issues. The procedure that surgery is recommending is medically necessary for the clinical management of this patient. Bilateral cerebrovascular accident, with Intermittent and persistent cognitive defect -MRI showed acute cortical infarct of the right cerebral peduncle to the pelvis , left thalamus punctate area of infarct -Neurology last seen patient on 11/13/15, recommended long-term anticoagulation -Continue with Statin. -Continue Coumadin daily and monitor INR/PT keep INR between 2 and 3, pharmacy consult for dosing. INR 1.5, -Reconsulted PT/OT, patient will require intermittent therapy while he remains in the hospital so he does not decompensate -Out of bed with nursing only. Patient was counseled to not get out of bed on his own. Fall risk due to cognitive deficit -Psychiatry reconsulted 02/17 for evaluation and appreciate recommendations on patient's cognition, agitation -Seroquel 100 mg daily and 150 mg at bedtime Urinary tract infection, resolved Patient asymptomatic, no fever, leukocytosis, signs of infection Urine culture indicates enterococcus faecalis which is resistant to Cipro Status post Macrobid 100 mg twice daily for 10 days Repeat urine culture 05/27/16 indicates 50-100,000 colonies mixed char Hypertension: Blood pressure labile Amlodipine 10 mg daily carvedilol 25 bid, Imdur 60 daily Ischemic Cardiomyopathy/chronic systolic CHF LVEF 35% on echo 03/2015. Denies shortness of breath. Compensated. -Continue Coreg, Imdur, enalapril. -Could consider AICD if patient is able to consent, however patient is currently unable to consent -Fluid and sodium restrictions, follow volume status. Chronic kidney disease stage 3/4. Stable -Patient with intermittent worsening due to poor by mouth intake -Avoid nephrotoxins. -Monitor BMP intermittently -Discontinue DIALLO inhibitor due to hyperkalemia Anemia with iron deficiency, hemoglobin stable Iron studies indicate iron 45, TIBC 232, ferritin 345 Continue ferrous sulfate 325 mg daily Continue monitor CBC intermittently Seborrhea dermatitis Status post hydrocortisone cream for 2 weeks Encourage proper hygiene Diabetic mellitus - Glucose was well controlled. All insulin discontinued. -accu-checks discontinued as patient's blood sugar well controlled and Hgb A1c 6.9. -continue diet control Peripheral arterial disease-stable. -Continue anticoagulation Constipation, patient having bowel movement every 2-3 days -Abdominal x-ray 02/16 indicates moderate amount of stool in the colon on the left side. -Milk of magnesia as needed. -MiraLAX, lactulose, Haydee-Colace daily, lactulose, MiraLAX -Dulcolax as needed DVT prophylaxis - patient on Coumadin Discharge Planning Discharge planning per case management Attending Statement The exam, history, and the medical decision-making described in the above note were completed with the assistance of the mid-level provider. I reviewed and agree with the findings presented. I attest that I had a [id number] encounter with the patient on the same day, and personally performed and documented my assessment and findings in the medical record. When asked if he has pain the patient indicates that he has pain on the right side of his abdomen. On exam he does have tenderness to palpation in the right upper quadrant however no guarding. Abdomen is soft. The patient is also tender in the right lower quadrant initially. However when I go back to palpate there again he is not tender. The patient is not capacity to make his own medical decisions but has been consistently complaining of the right sided abdominal pain. Right upper quadrant ultrasound is reviewed as well as the highest scan. His pain, physical exam findings and imaging are consistent with cholecystitis although he does not have any white blood cell count elevation or fever. I do feel that a cholecystostomy tube is medically necessary and urgent to prevent worsening cholecystitis sepsis and even . It should help alleviate pain due to cholecystitis. Discussed with Dr. Alexandra. Truman Fulton Jun 17, 2016 12:37 Tamra Suazo MD Jun 17, 2016 16:02
[2016-06-17] MEDS: SODIUM CHLOR 0.9% 1000 ML INJ 1,000 ML IV SCH ×2 (14:36→19:00)
[2016-06-17 15:07] LABS: APTT (PATIENT) 39.4 SEC (24.3-30.1); INTERNATIONAL NORMALIZED RATIO 1.8 RATIO; PROTHROMBIN TIME - PATIENT 20.2 SEC (9.8-11.6)
[2016-06-17] MEDS ORDERED: LEVOFLOXACIN 500 MG PREMIX INJ 100 ML IV ONE (15:30)
--- NOTE | 2016-06-17 15:31 | HHI.PR ---
Objective Vitals/I&O Vital Signs Date Time Temp Pulse Resp B/P Pulse Ox O2 Delivery O2 Flow Rate FiO2 06/17/16 12:00 97.1 76 18 126/87 98 Labs Laboratory Tests Test 06/17/16 06/17/16 07:00 14:30 Prothrombin Time 16.5 20.2 Prothromb Time International 1.5 1.8 Ratio Activated Partial 39.4 Thromboplast Time A/P Assessment and Plan 61 year old male with multiple medical problems now with abdominal pain -HIDA reviewed -Dr. Pearson authorizes patient to have cholecystomy tube placed which is medically urgent -Patient is a poor surgical candidate due to other medical problems Jennifer Kelley Jun 17, 2016 15:31
[2016-06-17] MEDS ORDERED: MIDAZOLAM HCL 5 MG/5 ML VIAL IV ONE (16:45)
[2016-06-17] MEDS ORDERED: fentaNYL CITRATE 250 MCG/5 ML AMP IV ONE (16:45)
--- NOTE | 2016-06-17 17:25 | PD.RAD ---
Post Procedure Progress Note Pre Procedure Diagnosis: (1) Acute cholecystitis (2) Cholelithiases Post Procedure Diagnosis: (1) Acute cholecystitis (2) Cholelithiases Procedure Date: Jun 17, 2016 Supervising Radiologist: Sameer Alexandra Proceduralist/Assist: Blessing Galvez, RT(R), Skyler Cisneros RT(R) Anesthesia: Local, Analgesia, Conscious Sedation Plan of Activity Patient to Unit: PACU Patient Condition: Fair See PACS Report for procedural detail/treatment Drainage Procedure Procedure 1 Imaging Guidance: Fluoroscopy, Ultrasound Procedure Type: Cholecystostomy Procedure: Placement [place]: 8 Drainage: Suction (Accordian) Fluid Removal (CCs): 175 Fluid Description: Other (Black, thick bile) Sameer Alexandra MD Jun 17, 2016 17:25
[2016-06-17] MEDS: ISOSORBIDE MONONITRATE 60 MG TAB PO SCH (20:55)
[2016-06-17] MEDS: WARFARIN SOD 7.5 MG TAB PO SCH (21:02)
[2016-06-18 04:17] VITALS: BP 141/89; PULSE 80; RESP 16; TEMP 98.1; O2SAT 98
[2016-06-18] MEDS: SODIUM CHLOR 0.9% 1000 ML INJ 1,000 ML IV SCH (05:09)
[2016-06-18 06:16] LABS: INTERNATIONAL NORMALIZED RATIO 2.7 RATIO; PROTHROMBIN TIME - PATIENT 30.7 SEC (9.8-11.6)
[2016-06-18 08:00] VITALS: BP 135/91; PULSE 85; RESP 16; TEMP 98.6; O2SAT 96
[2016-06-18] MEDS: EUCERIN CREAM 120 GM JAR TOPICAL SCH ×2 (09:00→20:56)
[2016-06-18] MEDS: SODIUM CHLORIDE 0.9% 10 ML VIAL IRRIGATION SCH (09:00)
[2016-06-18] MEDS: LACTULOSE SYRUP 20 GM/30 ML CUP PO SCH (09:45)
[2016-06-18] MEDS: QUEtiapine FUMARATE 100 MG TAB PO SCH ×2 (09:45→20:39)
[2016-06-18] MEDS: POLYETHYLENE GLYCOL 17 GM PKG PO SCH (09:46)
[2016-06-18] MEDS: CARVEDILOL 12.5 MG TAB PO SCH ×2 (09:46→20:38)
[2016-06-18] MEDS: FERROUS SULFATE 325 MG (65 MG ELEMENTAL IRON) TAB PO SCH (09:46)
[2016-06-18] MEDS: DOCUSATE SODIUM 50 MG/SENNA 8.6 MG TAB PO SCH ×2 (09:46→20:39)
[2016-06-18] MEDS: ATORVASTATIN 40 MG TAB PO SCH (09:46)
--- NOTE | 2016-06-18 10:39 | HHI.PR ---
Subjective Remarks Patient examined today. Patient states that he still experiencing abdominal discomfort despite the insertion of the cholecystotomy drain. Objective Vitals Vital Signs Date Time Temp Pulse Resp B/P Pulse Ox O2 Delivery O2 Flow Rate FiO2 06/18/16 08:00 98.6 85 16 135/91 96 06/18/16 04:17 98.1 80 16 141/89 98 06/17/16 22:49 88 18 148/93 06/17/16 21:00 97.3 80 16 144/100 96 06/17/16 18:45 97.7 75 18 149/94 99 06/17/16 18:15 97.7 76 18 143/89 99 06/17/16 17:45 80 16 148/98 98 06/17/16 17:30 97.9 81 18 156/93 96 06/17/16 12:00 97.1 76 18 126/87 98 I/O 06/17/16 06/17/16 06/17/16 06/18/16 06/18/16 06/18/16 07:00 15:00 23:00 07:00 15:00 23:00 Output Total 650 ml 500 ml Balance -650 ml -500 ml Output Urine Total 300 ml 200 ml Drainage Total 350 ml 300 ml # Voids 2 2 # Bowel Movements 0 0 Result Diagram: 06/16/16 1220 06/16/16 0427 Objective Remarks GENERAL: Well-developed, well-nourished, in no acute distress. Alert and orientated to person HEENT: Head is normocephalic without any lesions or masses noted. Facial features are symmetric. Extraocular muscles are intact. Conjunctivae were clear. NECK: Trachea midline no deviation. CARDIAC: Regular rhythm, regular rate. S1/S2 are heard. No murmurs gallops or rubs. LUNGS: Clear to auscultation bilaterally. No wheeze, rhonchi or rales. No use of accessory muscles on inspiration or expiration. ABDOMEN: Soft, tenderness noted right upper quadrant. Positive rebound. Nondistended. Bowel sounds heard in all 4 quadrants. No organomegaly or masses. Cholecystotomy drain noted with brown/black fluid EXTREMITIES: No edema, pulses are equal bilaterally. No cyanosis or clubbing. Right below--knee amputation. NEUROLOGY: Mood and affect appear appropriate. Cranial nerves II through XII grossly intact. Moving all extremities, speech is clear Procedures None Urinary Catheter: No Vascular Central Line Catheter: No A/P Assessment and Plan 60-year-old male with admitted 10/14 with acute cortical infarct. Patient remains with significant cognitive deficit. Abdominal pain, right upper quadrant CT the abdomen shows gallstones with distended gallbladder Abdominal ultrasound indicates gallstones HIDA scan shows signs of acute cholecystitis Consulted general surgery who is following the patient Surgery recommended placement cholecystotomy drain Interventional radiology successfully placed cholecystotomy drain. Bilateral cerebrovascular accident, with Intermittent and persistent cognitive defect -MRI showed acute cortical infarct of the right cerebral peduncle to the pelvis , left thalamus punctate area of infarct -Neurology last seen patient on 11/13/15, recommended long-term anticoagulation -Continue with Statin. -Continue Coumadin daily and monitor INR/PT keep INR between 2 and 3, pharmacy consult for dosing. INR 2.7, -Reconsulted PT/OT, patient will require intermittent therapy while he remains in the hospital so he does not decompensate -Out of bed with nursing only. Patient was counseled to not get out of bed on his own. Fall risk due to cognitive deficit -Psychiatry reconsulted 02/17 for evaluation and appreciate recommendations on patient's cognition, agitation -Seroquel 100 mg daily and 150 mg at bedtime Urinary tract infection, resolved Patient asymptomatic, no fever, leukocytosis, signs of infection Urine culture indicates enterococcus faecalis which is resistant to Cipro Status post Macrobid 100 mg twice daily for 10 days Repeat urine culture 05/27/16 indicates 50-100,000 colonies mixed char Hypertension: Blood pressure labile Amlodipine 10 mg daily carvedilol 25 bid, Imdur 60 daily Ischemic Cardiomyopathy/chronic systolic CHF LVEF 35% on echo 03/2015. Denies shortness of breath. Compensated. -Continue Coreg, Imdur, enalapril. -Could consider AICD if patient is able to consent, however patient is currently unable to consent -Fluid and sodium restrictions, follow volume status. Chronic kidney disease stage 3/4. Stable -Patient with intermittent worsening due to poor by mouth intake -Avoid nephrotoxins. -Monitor BMP intermittently -Discontinue DIALLO inhibitor due to hyperkalemia Anemia with iron deficiency, hemoglobin stable Iron studies indicate iron 45, TIBC 232, ferritin 345 Continue ferrous sulfate 325 mg daily Continue monitor CBC intermittently Seborrhea dermatitis Status post hydrocortisone cream for 2 weeks Encourage proper hygiene Diabetic mellitus - Glucose was well controlled. All insulin discontinued. -accu-checks discontinued as patient's blood sugar well controlled and Hgb A1c 6.9. -continue diet control Peripheral arterial disease-stable. -Continue anticoagulation Constipation, patient having bowel movement every 2-3 days -Abdominal x-ray 02/16 indicates moderate amount of stool in the colon on the left side. -Milk of magnesia as needed. -MiraLAX, lactulose, [place]-Colace daily, lactulose, MiraLAX -Dulcolax as needed DVT prophylaxis - patient on Coumadin Discharge Planning Discharge planning per case management Truman Fulton Jun 18, 2016 10:39
[2016-06-18 12:00] VITALS: BP 126/83; PULSE 82; RESP 16; TEMP 98
[2016-06-18 20:00] VITALS: BP 145/94; PULSE 86; RESP 20; TEMP 98.8; O2SAT 95
--- NOTE | 2016-06-18 20:02 | HHI.PR ---
Subjective Subjective Notes Patient currently has no complaints; resting comfortably watching TV Objective Vitals/I&O Vital Signs Date Time Temp Pulse Resp B/P Pulse Ox O2 Delivery O2 Flow Rate FiO2 06/18/16 12:00 98.0 82 16 126/83 06/18/16 08:00 96 Labs Laboratory Tests Test 06/18/16 05:50 Prothrombin Time 30.7 Prothromb Time International 2.7 Ratio Lungs: Clear Abdomen: Non-distended, Non-tender Narrative Exam Cholecystostomy tube draining grayish fluid - 250 ml/24hr A/P Assessment and Plan Assessment and Plan 61 year old male with multiple medical problems with abdominal pain; improved since cholecystostomy tube placed -Patient is a poor surgical candidate due to other medical problems -Will need to monitor electrolytes periodically if tube output high (nishi. K+) -Will follow once or twice a week. Thiago Pearson MD Jun 18, 2016 20:02
[2016-06-18] MEDS: WARFARIN SOD 7.5 MG TAB PO SCH (20:39)
[2016-06-18] MEDS: ISOSORBIDE MONONITRATE 60 MG TAB PO SCH (20:39)
[2016-06-19 06:08] LABS: POTASSIUM 3.9 MEQ/L (3.5-5.1)
[2016-06-19 06:12] LABS: BICARBONATE 26.5 MEQ/L (21.0-32.0)
[2016-06-19 06:41] LABS: INTERNATIONAL NORMALIZED RATIO 4.4 RATIO
[2016-06-19 08:00] VITALS: BP 123/88; PULSE 82; RESP 19; TEMP 97.4; O2SAT 96
[2016-06-19] MEDS: SODIUM CHLORIDE 0.9% 10 ML VIAL IRRIGATION SCH (09:00)
[2016-06-19] MEDS: FERROUS SULFATE 325 MG (65 MG ELEMENTAL IRON) TAB PO SCH (09:50)
[2016-06-19] MEDS: LACTULOSE SYRUP 20 GM/30 ML CUP PO SCH (09:50)
[2016-06-19] MEDS: DOCUSATE SODIUM 50 MG/SENNA 8.6 MG TAB PO SCH ×2 (09:50→20:42)
[2016-06-19] MEDS: ATORVASTATIN 40 MG TAB PO SCH (09:50)
[2016-06-19] MEDS: POLYETHYLENE GLYCOL 17 GM PKG PO SCH (09:50)
[2016-06-19] MEDS: QUEtiapine FUMARATE 100 MG TAB PO SCH ×2 (09:50→20:42)
[2016-06-19] MEDS: CARVEDILOL 12.5 MG TAB PO SCH ×2 (09:50→20:42)
[2016-06-19] MEDS: EUCERIN CREAM 120 GM JAR TOPICAL SCH ×2 (09:51→20:43)
--- NOTE | 2016-06-19 11:01 | HHI.PR ---
Subjective Remarks Patient seen and examined today. He takes experiencing abdominal pain. Worse after he eats. Objective Vitals Vital Signs Date Time Temp Pulse Resp B/P Pulse Ox O2 Delivery O2 Flow Rate FiO2 06/19/16 08:00 97.4 82 19 123/88 96 06/18/16 20:00 98.8 86 20 145/94 95 06/18/16 12:00 98.0 82 16 126/83 I/O 06/18/16 06/18/16 06/18/16 06/19/16 06/19/16 06/19/16 07:00 15:00 23:00 07:00 15:00 23:00 Intake Total 720 ml 480 ml 720 ml Output Total 500 ml 250 ml 200 ml Balance -500 ml 470 ml 480 ml 520 ml Intake Oral 720 ml 480 ml 480 ml Oral Supplement 240 ml Output Urine Total 200 ml Drainage Total 300 ml 250 ml 200 ml # Voids 3 2 1 # Bowel Movements 0 1 0 0 Result Diagram: 06/16/16 1220 06/19/16 0550 Objective Remarks GENERAL: Well-developed, well-nourished, in no acute distress. Alert and orientated to person HEENT: Head is normocephalic without any lesions or masses noted. Facial features are symmetric. Extraocular muscles are intact. Conjunctivae were clear. NECK: Trachea midline no deviation. CARDIAC: Regular rhythm, regular rate. S1/S2 are heard. No murmurs gallops or rubs. LUNGS: Clear to auscultation bilaterally. No wheeze, rhonchi or rales. No use of accessory muscles on inspiration or expiration. ABDOMEN: Soft, tenderness noted right upper quadrant. Positive rebound. Nondistended. Bowel sounds heard in all 4 quadrants. No organomegaly or masses. Cholecystotomy drain noted with yellow/orange fluid EXTREMITIES: No edema, pulses are equal bilaterally. No cyanosis or clubbing. Right below--knee amputation. NEUROLOGY: Mood and affect appear appropriate. Cranial nerves II through XII grossly intact. Moving all extremities, speech is clear Procedures None Urinary Catheter: No Vascular Central Line Catheter: No A/P Assessment and Plan 60-year-old male with admitted 10/14 with acute cortical infarct. Patient remains with significant cognitive deficit. Abdominal pain, right upper quadrant CT the abdomen shows gallstones with distended gallbladder Abdominal ultrasound indicates gallstones HIDA scan shows signs of acute cholecystitis Consulted general surgery who is following the patient Surgery recommended placement cholecystotomy drain Interventional radiology successfully placed cholecystotomy drain. Bilateral cerebrovascular accident, with Intermittent and persistent cognitive defect -MRI showed acute cortical infarct of the right cerebral peduncle to the pelvis , left thalamus punctate area of infarct -Neurology last seen patient on 11/13/15, recommended long-term anticoagulation -Continue with Statin. -Continue Coumadin daily and monitor INR/PT keep INR between 2 and 3, pharmacy consult for dosing. INR 2.7, -Reconsulted PT/OT, patient will require intermittent therapy while he remains in the hospital so he does not decompensate -Out of bed with nursing only. Patient was counseled to not get out of bed on his own. Fall risk due to cognitive deficit -Psychiatry reconsulted 02/17 for evaluation and appreciate recommendations on patient's cognition, agitation -Seroquel 100 mg daily and 150 mg at bedtime Urinary tract infection, resolved Patient asymptomatic, no fever, leukocytosis, signs of infection Urine culture indicates enterococcus faecalis which is resistant to Cipro Status post Macrobid 100 mg twice daily for 10 days Repeat urine culture 05/27/16 indicates 50-100,000 colonies mixed char Hypertension: Blood pressure labile Amlodipine 10 mg daily carvedilol 25 bid, Imdur 60 daily Ischemic Cardiomyopathy/chronic systolic CHF LVEF 35% on echo 03/2015. Denies shortness of breath. Compensated. -Continue Coreg, Imdur, enalapril. -Could consider AICD if patient is able to consent, however patient is currently unable to consent -Fluid and sodium restrictions, follow volume status. Chronic kidney disease stage 3/4. Stable -Patient with intermittent worsening due to poor by mouth intake -Avoid nephrotoxins. -Monitor BMP intermittently -Discontinue DIALLO inhibitor due to hyperkalemia Anemia with iron deficiency, hemoglobin stable Iron studies indicate iron 45, TIBC 232, ferritin 345 Continue ferrous sulfate 325 mg daily Continue monitor CBC intermittently Seborrhea dermatitis Status post hydrocortisone cream for 2 weeks Encourage proper hygiene Diabetic mellitus - Glucose was well controlled. All insulin discontinued. -accu-checks discontinued as patient's blood sugar well controlled and Hgb A1c 6.9. -continue diet control Peripheral arterial disease-stable. -Continue anticoagulation Constipation, patient having bowel movement every 2-3 days -Abdominal x-ray 02/16 indicates moderate amount of stool in the colon on the left side. -Milk of magnesia as needed. -MiraLAX, lactulose, Haydee-Colace daily, lactulose, MiraLAX -Dulcolax as needed DVT prophylaxis - patient on Coumadin Discharge Planning Discharge planning per case management Truman Fulton Jun 19, 2016 11:01
[2016-06-19 20:00] VITALS: BP 149/91; PULSE 82; RESP 16; TEMP 98.1; O2SAT 97
[2016-06-19] MEDS: ISOSORBIDE MONONITRATE 60 MG TAB PO SCH (20:42)
[2016-06-20 06:08] LABS: INTERNATIONAL NORMALIZED RATIO 3.1 RATIO; PROTHROMBIN TIME - PATIENT 36.6 SEC (9.8-11.6)
[2016-06-20 08:00] VITALS: BP 120/82; PULSE 75; RESP 20; TEMP 96; O2SAT 96
[2016-06-20] MEDS: DOCUSATE SODIUM 50 MG/SENNA 8.6 MG TAB PO SCH ×2 (08:16→21:17)
[2016-06-20] MEDS: FERROUS SULFATE 325 MG (65 MG ELEMENTAL IRON) TAB PO SCH (08:16)
[2016-06-20] MEDS: QUEtiapine FUMARATE 100 MG TAB PO SCH ×2 (08:16→21:16)
[2016-06-20] MEDS: POLYETHYLENE GLYCOL 17 GM PKG PO SCH (08:16)
[2016-06-20] MEDS: CARVEDILOL 12.5 MG TAB PO SCH ×2 (08:16→21:15)
[2016-06-20] MEDS: LACTULOSE SYRUP 20 GM/30 ML CUP PO SCH (08:16)
[2016-06-20] MEDS: ACETAMINOPHEN/HYDROcodone 325 MG/5 MG TAB PO PRN ×2 (08:17→21:15)
[2016-06-20] MEDS: ATORVASTATIN 40 MG TAB PO SCH (08:17)
[2016-06-20] MEDS: EUCERIN CREAM 120 GM JAR TOPICAL SCH ×2 (08:18→21:19)
[2016-06-20] MEDS: SODIUM CHLORIDE 0.9% 10 ML VIAL IRRIGATION SCH (09:00)
--- NOTE | 2016-06-20 11:27 | HHI.PR ---
Subjective Remarks Patient seen and examined today. Patient states still having some mild abdominal pain. Pain control of medications. Still with drain in place. Objective Vitals Vital Signs Date Time Temp Pulse Resp B/P Pulse Ox O2 Delivery O2 Flow Rate FiO2 06/20/16 10:19 14 06/20/16 08:00 96.0 75 20 120/82 96 06/19/16 20:00 98.1 82 16 149/91 97 I/O 06/19/16 06/19/16 06/19/16 06/20/16 06/20/16 06/20/16 07:00 15:00 23:00 07:00 15:00 23:00 Intake Total 720 ml 700 ml 360 ml Output Total 200 ml 100 ml Balance 520 ml 600 ml 360 ml Intake Oral 480 ml 220 ml 120 ml Oral Supplement 240 ml 480 ml 240 ml Drainage Total 200 ml 100 ml # Voids 1 3 2 # Bowel Movements 0 0 0 Result Diagram: 06/16/16 1220 06/19/16 0550 Objective Remarks GENERAL: Well-developed, well-nourished, in no acute distress. Alert and orientated to person HEENT: Head is normocephalic without any lesions or masses noted. Facial features are symmetric. Extraocular muscles are intact. Conjunctivae were clear. NECK: Trachea midline no deviation. CARDIAC: Regular rhythm, regular rate. S1/S2 are heard. No murmurs gallops or rubs. LUNGS: Clear to auscultation bilaterally. No wheeze, rhonchi or rales. No use of accessory muscles on inspiration or expiration. ABDOMEN: Soft, tenderness noted right upper quadrant. Positive rebound. Nondistended. Bowel sounds heard in all 4 quadrants. No organomegaly or masses. Cholecystotomy drain noted with yellow/orange fluid EXTREMITIES: No edema, pulses are equal bilaterally. No cyanosis or clubbing. Right below--knee amputation. NEUROLOGY: Mood and affect appear appropriate. Cranial nerves II through XII grossly intact. Moving all extremities, speech is clear Procedures None Urinary Catheter: No Vascular Central Line Catheter: No A/P Assessment and Plan 60-year-old male with admitted 10/14 with acute cortical infarct. Patient remains with significant cognitive deficit. Abdominal pain, right upper quadrant CT the abdomen shows gallstones with distended gallbladder Abdominal ultrasound indicates gallstones HIDA scan shows signs of acute cholecystitis Consulted general surgery who is following the patient Surgery recommended placement cholecystotomy drain Interventional radiology successfully placed cholecystotomy drain. Bilateral cerebrovascular accident, with Intermittent and persistent cognitive defect -MRI showed acute cortical infarct of the right cerebral peduncle to the pelvis , left thalamus punctate area of infarct -Neurology last seen patient on 11/13/15, recommended long-term anticoagulation -Continue with Statin. -Continue Coumadin daily and monitor INR/PT keep INR between 2 and 3, pharmacy consult for dosing. INR 3.1, -Reconsulted PT/OT, patient will require intermittent therapy while he remains in the hospital so he does not decompensate -Out of bed with nursing only. Patient was counseled to not get out of bed on his own. Fall risk due to cognitive deficit -Psychiatry reconsulted 02/17 for evaluation and appreciate recommendations on patient's cognition, agitation -Seroquel 100 mg daily and 150 mg at bedtime Urinary tract infection, resolved Patient asymptomatic, no fever, leukocytosis, signs of infection Urine culture indicates enterococcus faecalis which is resistant to Cipro Status post Macrobid 100 mg twice daily for 10 days Repeat urine culture 05/27/16 indicates 50-100,000 colonies mixed char Hypertension: Blood pressure labile Amlodipine 10 mg daily carvedilol 25 bid, Imdur 60 daily Ischemic Cardiomyopathy/chronic systolic CHF LVEF 35% on echo 03/2015. Denies shortness of breath. Compensated. -Continue Coreg, Imdur, enalapril. -Could consider AICD if patient is able to consent, however patient is currently unable to consent -Fluid and sodium restrictions, follow volume status. Chronic kidney disease stage 3/4. Stable -Patient with intermittent worsening due to poor by mouth intake -Avoid nephrotoxins. -Monitor BMP intermittently -Discontinue DIALLO inhibitor due to hyperkalemia Anemia with iron deficiency, hemoglobin stable Iron studies indicate iron 45, TIBC 232, ferritin 345 Continue ferrous sulfate 325 mg daily Continue monitor CBC intermittently Seborrhea dermatitis Status post hydrocortisone cream for 2 weeks Encourage proper hygiene Diabetic mellitus - Glucose was well controlled. All insulin discontinued. -accu-checks discontinued as patient's blood sugar well controlled and Hgb A1c 6.9. -continue diet control Peripheral arterial disease-stable. -Continue anticoagulation Constipation, patient having bowel movement every 2-3 days -Abdominal x-ray 02/16 indicates moderate amount of stool in the colon on the left side. -Milk of magnesia as needed. -MiraLAX, lactulose, Haydee-Colace daily, lactulose, MiraLAX -Dulcolax as needed DVT prophylaxis - patient on Coumadin Discharge Planning Discharge planning per case management Truman Fulton Jun 20, 2016 11:27
[2016-06-20 20:00] VITALS: BP 130/81; PULSE 81; RESP 16; TEMP 98.3; O2SAT 97
[2016-06-20] MEDS: WARFARIN SOD 7.5 MG TAB PO SCH (21:00)
[2016-06-20] MEDS: ISOSORBIDE MONONITRATE 60 MG TAB PO SCH (21:16)
[2016-06-21] MEDS: ACETAMINOPHEN/HYDROcodone 325 MG/5 MG TAB PO PRN ×3 (06:27→19:48)
[2016-06-21] MEDS: LACTULOSE SYRUP 20 GM/30 ML CUP PO SCH (07:51)
[2016-06-21] MEDS: DOCUSATE SODIUM 50 MG/SENNA 8.6 MG TAB PO SCH ×2 (07:51→19:49)
[2016-06-21] MEDS: POLYETHYLENE GLYCOL 17 GM PKG PO SCH (07:51)
[2016-06-21] MEDS: ATORVASTATIN 40 MG TAB PO SCH (07:51)
[2016-06-21] MEDS: CARVEDILOL 12.5 MG TAB PO SCH ×2 (07:51→19:48)
[2016-06-21] MEDS: FERROUS SULFATE 325 MG (65 MG ELEMENTAL IRON) TAB PO SCH (07:51)
[2016-06-21] MEDS: EUCERIN CREAM 120 GM JAR TOPICAL SCH ×2 (07:52→19:50)
[2016-06-21] MEDS: QUEtiapine FUMARATE 100 MG TAB PO SCH ×2 (07:52→19:48)
[2016-06-21 08:00] VITALS: BP 139/83; PULSE 76; RESP 20; TEMP 96.8; O2SAT 97
[2016-06-21 08:09] LABS: INTERNATIONAL NORMALIZED RATIO 2.6 RATIO; PROTHROMBIN TIME - PATIENT 30.3 SEC (9.8-11.6)
[2016-06-21] MEDS: SODIUM CHLORIDE 0.9% 10 ML VIAL IRRIGATION SCH (09:00)
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
[2016-06-21] MEDS ORDERED: WARFARIN SOD 5 MG TAB PO SCH (16:00)
[2016-06-21 17:52] LABS: AUTOMATED NEUTROPHIL # 8.4 TH/MM3 (1.8-7.7); BASOPHIL % 0.3 % (0.0-2.0); EOSINOPHIL # 0.4 TH/MM3 (0-0.4); HEMATOCRIT 26.6 % (39.0-51.0); LYMPH % 11.9 % (9.0-44.0); LYMPHOCYTE # 1.3 TH/MM3 (1.0-4.8); MEAN CELL VOLUME 80.3 FL (80.0-100.0); MEAN CORPUSCULAR HEMOGLOBIN 26.7 PG (27.0-34.0); MEAN CORPUSCULAR HGB CONC 33.3 % (32.0-36.0); NEUT % 77.8 % (16.0-70.0); PLATELET COUNT 343 TH/MM3 (150-450); RED BLOOD COUNT 3.31 MIL/MM3 (4.50-5.90); RED CELL DISTRIBUTION WIDTH 13.8 % (11.6-17.2); WHITE BLOOD COUNT 10.7 TH/MM3 (4.0-11.0)
[2016-06-21 17:58] LABS: HEMO FLAGS DIFF FINAL
[2016-06-21 18:00] LABS: POTASSIUM 4.3 MEQ/L (3.5-5.1)
[2016-06-21 18:04] LABS: BICARBONATE 24.7 MEQ/L (21.0-32.0)
[2016-06-21] MEDS: BISACODYL 10 MG SUPP PR PRN (18:31)
[2016-06-21] MEDS: ISOSORBIDE MONONITRATE 60 MG TAB PO SCH (19:48)
[2016-06-21 20:00] VITALS: BP 109/89; PULSE 88; RESP 18; TEMP 98.1; O2SAT 98
[2016-06-22] MEDS: ACETAMINOPHEN/HYDROcodone 325 MG/5 MG TAB PO PRN (05:25)
[2016-06-22 06:54] LABS: INTERNATIONAL NORMALIZED RATIO 3.3 RATIO; PROTHROMBIN TIME - PATIENT 38.6 SEC (9.8-11.6)
[2016-06-22] MEDS: POLYETHYLENE GLYCOL 17 GM PKG PO SCH (07:57)
[2016-06-22] MEDS: EUCERIN CREAM 120 GM JAR TOPICAL SCH ×2 (07:57→20:56)
[2016-06-22] MEDS: DOCUSATE SODIUM 50 MG/SENNA 8.6 MG TAB PO SCH ×2 (07:57→20:53)
[2016-06-22] MEDS: LACTULOSE SYRUP 20 GM/30 ML CUP PO SCH (07:57)
[2016-06-22] MEDS: QUEtiapine FUMARATE 100 MG TAB PO SCH ×2 (07:58→20:52)
[2016-06-22] MEDS: CARVEDILOL 12.5 MG TAB PO SCH ×2 (07:58→20:54)
[2016-06-22] MEDS: FERROUS SULFATE 325 MG (65 MG ELEMENTAL IRON) TAB PO SCH (07:58)
[2016-06-22] MEDS: ATORVASTATIN 40 MG TAB PO SCH (07:58)
[2016-06-22] MEDS: SODIUM CHLORIDE 0.9% 10 ML VIAL IRRIGATION SCH (07:59)
[2016-06-22 08:42] VITALS: BP 140/82; PULSE 85; RESP 17; TEMP 97.5; O2SAT 96
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
[2016-06-22 20:00] VITALS: BP 127/86; PULSE 82; RESP 22; TEMP 95.4; O2SAT 98
[2016-06-22] MEDS: ISOSORBIDE MONONITRATE 60 MG TAB PO SCH (20:53)
[2016-06-23 05:46] LABS: INTERNATIONAL NORMALIZED RATIO 3.4 RATIO; PROTHROMBIN TIME - PATIENT 40.1 SEC (9.8-11.6)
[2016-06-23] MEDS: ACETAMINOPHEN/HYDROcodone 325 MG/5 MG TAB PO PRN (08:09)
[2016-06-23] MEDS: QUEtiapine FUMARATE 100 MG TAB PO SCH ×2 (08:09→21:37)
[2016-06-23] MEDS: POLYETHYLENE GLYCOL 17 GM PKG PO SCH (08:09)
[2016-06-23] MEDS: LACTULOSE SYRUP 20 GM/30 ML CUP PO SCH (08:09)
[2016-06-23] MEDS: FERROUS SULFATE 325 MG (65 MG ELEMENTAL IRON) TAB PO SCH (08:09)
[2016-06-23] MEDS: CARVEDILOL 12.5 MG TAB PO SCH ×2 (08:10→21:36)
[2016-06-23] MEDS: DOCUSATE SODIUM 50 MG/SENNA 8.6 MG TAB PO SCH ×2 (08:10→21:36)
[2016-06-23] MEDS: EUCERIN CREAM 120 GM JAR TOPICAL SCH ×2 (08:10→21:37)
[2016-06-23] MEDS: ATORVASTATIN 40 MG TAB PO SCH (08:10)
[2016-06-23] MEDS: SODIUM CHLORIDE 0.9% 10 ML VIAL IRRIGATION SCH (08:14)
[2016-06-23 08:50] VITALS: BP 120/82; PULSE 80; RESP 18; TEMP 98.3; O2SAT 95
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
[2016-06-23 20:00] VITALS: BP 121/83; PULSE 86; RESP 20; TEMP 97.4; O2SAT 95
[2016-06-23] MEDS ORDERED: WARFARIN SOD 5 MG TAB PO SCH (21:00)
[2016-06-23] MEDS: ISOSORBIDE MONONITRATE 60 MG TAB PO SCH (21:36)
[2016-06-24 05:46] LABS: INTERNATIONAL NORMALIZED RATIO 3.4 RATIO; PROTHROMBIN TIME - PATIENT 39.8 SEC (9.8-11.6)
[2016-06-24] MEDS: LACTULOSE SYRUP 20 GM/30 ML CUP PO SCH (07:37)
[2016-06-24] MEDS: CARVEDILOL 12.5 MG TAB PO SCH ×2 (07:37→20:46)
[2016-06-24] MEDS: POLYETHYLENE GLYCOL 17 GM PKG PO SCH (07:37)
[2016-06-24] MEDS: FERROUS SULFATE 325 MG (65 MG ELEMENTAL IRON) TAB PO SCH (07:38)
[2016-06-24] MEDS: ATORVASTATIN 40 MG TAB PO SCH (07:38)
[2016-06-24] MEDS: DOCUSATE SODIUM 50 MG/SENNA 8.6 MG TAB PO SCH ×2 (07:38→20:46)
[2016-06-24] MEDS: QUEtiapine FUMARATE 100 MG TAB PO SCH ×2 (07:38→20:46)
[2016-06-24] MEDS: EUCERIN CREAM 120 GM JAR TOPICAL SCH ×2 (07:39→20:47)
[2016-06-24] MEDS: SODIUM CHLORIDE 0.9% 10 ML VIAL IRRIGATION SCH (07:48)
[2016-06-24 08:00] VITALS: BP 133/83; PULSE 89; RESP 20; TEMP 97.2; O2SAT 96
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
[2016-06-24 20:00] VITALS: BP 133/90; PULSE 89; RESP 20; TEMP 100.1; O2SAT 97
[2016-06-24] MEDS: ISOSORBIDE MONONITRATE 60 MG TAB PO SCH (20:46)
[2016-06-24] MEDS ORDERED: WARFARIN SOD 5 MG TAB PO SCH (21:00)
[2016-06-25] VITALS (10 sets, daily range): BP systolic 104–144; BP diastolic 67–91; PULSE 75–86; RESP 18–21; TEMP 96.4–100.4; O2SAT 93–98
[2016-06-25 07:00] LABS: INTERNATIONAL NORMALIZED RATIO 1.8 RATIO; PROTHROMBIN TIME - PATIENT 20.5 SEC (9.8-11.6)
[2016-06-25] MEDS: POLYETHYLENE GLYCOL 17 GM PKG PO SCH (08:20)
[2016-06-25] MEDS: ATORVASTATIN 40 MG TAB PO SCH (08:21)
[2016-06-25] MEDS: EUCERIN CREAM 120 GM JAR TOPICAL SCH ×2 (08:21→21:29)
[2016-06-25] MEDS: FERROUS SULFATE 325 MG (65 MG ELEMENTAL IRON) TAB PO SCH (08:21)
[2016-06-25] MEDS: CARVEDILOL 12.5 MG TAB PO SCH ×2 (08:22→21:29)
[2016-06-25] MEDS: LACTULOSE SYRUP 20 GM/30 ML CUP PO SCH (08:24)
[2016-06-25] MEDS: QUEtiapine FUMARATE 100 MG TAB PO SCH ×2 (08:25→21:29)
[2016-06-25] MEDS: DOCUSATE SODIUM 50 MG/SENNA 8.6 MG TAB PO SCH ×2 (08:26→21:28)
[2016-06-25] MEDS: ACETAMINOPHEN/HYDROcodone 325 MG/5 MG TAB PO PRN (08:29)
[2016-06-25] MEDS: SODIUM CHLORIDE 0.9% 10 ML VIAL IRRIGATION SCH (08:36)
[2016-06-25] MEDS ORDERED: SODIUM CHLORID 0.9% 500 ML INJ 500 ML IV ONE (12:00)
[2016-06-25 12:29] LABS: AUTOMATED NEUTROPHIL # 10.9 TH/MM3 (1.8-7.7); BASOPHIL % 0.2 % (0.0-2.0); EOSINOPHIL # 0.1 TH/MM3 (0-0.4); EOSINOPHIL % 0.7 % (0.0-4.0); LYMPH % 7.2 % (9.0-44.0); MEAN CORPUSCULAR HEMOGLOBIN 26.9 PG (27.0-34.0); MEAN CORPUSCULAR HGB CONC 33.7 % (32.0-36.0); MONO % 9.4 % (0.0-8.0); NEUT % 82.5 % (16.0-70.0); PLATELET COUNT 290 TH/MM3 (150-450); RED BLOOD COUNT 2.47 MIL/MM3 (4.50-5.90); RED CELL DISTRIBUTION WIDTH 14.1 % (11.6-17.2); WHITE BLOOD COUNT 13.2 TH/MM3 (4.0-11.0)
[2016-06-25 12:34] LABS: HEMATOCRIT 19.8 % (39.0-51.0); HEMO FLAGS DIFF FINAL
[2016-06-25 12:39] LABS: CHLORIDE 110 MEQ/L (98-107); SODIUM (NA) 143 MEQ/L (136-145)
[2016-06-25 12:43] LABS: ANION GAP 10 MEQ/L (5-15); BICARBONATE 23.5 MEQ/L (21.0-32.0); BLOOD UREA NITROGEN 54 MG/DL (7-18)
[2016-06-25 12:46] LABS: ALT (GPT) 113 U/L (12-78); AST (GOT) 51 U/L (15-37); GLOMERULAR FILTRATION RATE 36 ML/MIN (>89)
[2016-06-25 12:47] LABS: TOTAL BILIRUBIN ADULT 0.4 MG/DL (0.2-1.0)
[2016-06-25 12:49] LABS: ALKALINE PHOSPHATASE 381 U/L (45-117)
[2016-06-25] MEDS ORDERED: LEVOFLOXACIN 750 MG PREMIX INJ 150 ML IV SCH (13:00)
[2016-06-25 13:12] LABS: HEMATOCRIT 20.1 % (39.0-51.0); REVIEW FLAG FINAL
[2016-06-25] MEDS ORDERED: ACETAMINOPHEN 325 MG TAB PO PRN (14:15)
[2016-06-25] MEDS ORDERED: diphenhydrAMINE HCL 25 MG CAP PO PRN (14:15)
[2016-06-25] MEDS: SODIUM CHLOR 0.9% 250 ML INJ 250 ML IV ONE ×2 (14:56→16:43)
[2016-06-25] MEDS ORDERED: FUROSEMIDE 20 MG/2 ML VIAL IV ONE (15:00)
[2016-06-25] MEDS: SODIUM CHLOR 0.9% 1000 ML INJ 1,000 ML IV SCH (15:18)
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
[2016-06-25] MEDS: PANTOPRAZOLE SODIUM 40 MG VIAL IV SCH (18:28)
[2016-06-25] MEDS ORDERED: PANTOPRAZOLE SODIUM 40 MG VIAL IV SCH (21:00)
[2016-06-25] MEDS: metroNIDAZOLE 500 MG INJ 100 ML IV SCH (21:28)
[2016-06-25] MEDS: ISOSORBIDE MONONITRATE 60 MG TAB PO SCH (21:29)
[2016-06-26] VITALS (7 sets, daily range): BP systolic 113–139; BP diastolic 75–92; PULSE 79–84; RESP 18–20; TEMP 97–100.2; O2SAT 94–98
[2016-06-26 02:54] LABS: HEMATOCRIT 26.7 % (39.0-51.0); REVIEW FLAG FINAL
[2016-06-26] MEDS: metroNIDAZOLE 500 MG INJ 100 ML IV SCH ×4 (03:06→20:00)
[2016-06-26 07:31] LABS: AUTOMATED NEUTROPHIL # 13.8 TH/MM3 (1.8-7.7); BASOPHIL % 0.2 % (0.0-2.0); EOSINOPHIL # 0.1 TH/MM3 (0-0.4); EOSINOPHIL % 0.4 % (0.0-4.0); HEMATOCRIT 27.2 % (39.0-51.0); LYMPH % 4.7 % (9.0-44.0); LYMPHOCYTE # 0.7 TH/MM3 (1.0-4.8); MEAN CELL VOLUME 81.7 FL (80.0-100.0); MEAN CORPUSCULAR HGB CONC 34.3 % (32.0-36.0); MONO % 8.2 % (0.0-8.0); NEUT % 86.5 % (16.0-70.0); PLATELET COUNT 280 TH/MM3 (150-450); RED BLOOD COUNT 3.32 MIL/MM3 (4.50-5.90); RED CELL DISTRIBUTION WIDTH 13.7 % (11.6-17.2); WHITE BLOOD COUNT 15.9 TH/MM3 (4.0-11.0)
[2016-06-26 07:33] LABS: HEMO FLAGS AUTO DIFF
[2016-06-26 07:43] LABS: INTERNATIONAL NORMALIZED RATIO 1.5 RATIO; PROTHROMBIN TIME - PATIENT 17.4 SEC (9.8-11.6)
[2016-06-26 07:44] LABS: CHLORIDE 109 MEQ/L (98-107); SODIUM (NA) 142 MEQ/L (136-145)
[2016-06-26 07:50] LABS: ANION GAP 10 MEQ/L (5-15); BICARBONATE 22.8 MEQ/L (21.0-32.0); BLOOD UREA NITROGEN 48 MG/DL (7-18)
[2016-06-26 07:53] LABS: ALT (GPT) 82 U/L (12-78); AST (GOT) 33 U/L (15-37); GLOMERULAR FILTRATION RATE 36 ML/MIN (>89)
[2016-06-26 07:54] LABS: TOTAL BILIRUBIN ADULT 0.7 MG/DL (0.2-1.0)
[2016-06-26 07:56] LABS: ALKALINE PHOSPHATASE 339 U/L (45-117)
[2016-06-26 07:58] LABS: SCAN/DIFF AUTO DIFF CONFIRMED
[2016-06-26] MEDS: PANTOPRAZOLE SODIUM 40 MG VIAL IV SCH (08:02)
--- NOTE | 2016-06-26 08:32 | HHI.PR ---
Subjective Remarks Seen and evaluated in follow-up for anemia, fever and abdominal discomfort.. Patient reports feeling a bit better. Low-grade temperature overnight. Tolerating Cipro, Flagyl. GI consult pending Objective Vitals Vital Signs Date Time Temp Pulse Resp B/P Pulse Ox O2 Delivery O2 Flow Rate FiO2 06/26/16 04:00 97.1 84 20 136/92 98 06/26/16 01:30 100.2 82 18 113/75 06/26/16 00:00 97.0 80 20 125/ 98 06/25/16 22:30 100.4 82 18 104/67 94 06/25/16 20:00 97.1 86 18 125/83 98 06/25/16 20:00 83 06/25/16 19:30 99.3 82 18 144/91 95 06/25/16 16:55 98.0 77 18 125/82 06/25/16 16:40 97.9 75 20 123/87 06/25/16 16:20 97.9 75 20 123/87 93 06/25/16 16:00 77 06/25/16 15:15 77 18 122/81 97 06/25/16 14:48 96.4 75 21 121/81 97 06/25/16 09:47 14 I/O 06/25/16 06/25/16 06/25/16 06/26/16 06/26/16 06/26/16 07:00 15:00 23:00 07:00 15:00 23:00 Intake Total 210 ml 1159 ml Balance 210 ml 1159 ml Intake Oral 210 ml 120 ml IV Total 704 ml Packed Cells 335 ml # Voids 1 3 2 # Bowel Movements 0 Result Diagram: 06/26/16 0646 06/26/16 0646 Imaging Last Impressions Hepatobiliary Scan Nuclear Medicine 06/16/16 0600 Signed Impressions: Service Date/Time: June 08:23 - CONCLUSION: 1. Scintigraphic findings concerning for acute cholecystitis with nonvisualization of the gallbladder lumen. 2. Single episode of biliary enteric reflux. 3. Normal excretion of radiotracer through the extrahepatic tree into the small bowel. Sameer Alexandra MD ADDENDUM: A 20 hour delay shows activity in the expected location of the colon. No residual activity in the liver. Nonvisualization of the gallbladder. Conclusion remains unchanged. Sameer Alexandra MD Gall Bladder Ultrasound 06/13/16 0600 Signed Impressions: Service Date/Time: Monday, June 13, 2016 07:57 - CONCLUSION: Multiple gallstones without tenderness over the gallbladder. Didier Clay MD FACR Abdomen/Pelvis CT 06/11/16 0932 Signed Impressions: Service Date/Time: Saturday, June 11, 2016 13:19 - CONCLUSION: 1. Distended gallbladder containing multiple gallstones. 2. Diverticulosis without diverticulitis. Jakub Chandra MD Head CT 06/09/16 0000 Signed Impressions: Service Date/Time: June 16:11 - CONCLUSION: 1. No acute hemorrhage, mass or acute infarction. 2. Atrophy and old lacunar infarcts. Thiago Heredia MD Chest X-Ray 06/08/16 1649 Signed Impressions: Service Date/Time: Wednesday, June 08, 2016 17:10 - CONCLUSION: 1. Compensated cardiomegaly. 2. Previous bypass. Didier Clay MD FACR Abdomen X-Ray 02/17/16 0000 Signed Impressions: Service Date/Time: Wednesday, February 17, 2016 12:13 - CONCLUSION: Moderate amount stool in the colon especially on the left side. There are some minimally prominent segments of small bowel in the upper abdomen. Camacho Santana MD Liver Ultrasound 10/30/15 0000 Signed Impressions: Service Date/Time: Friday, October 30, 2015 17:29 - CONCLUSION: 1. Cholelithiasis with probable gallbladder sludge and mild gallbladder distention. 2. Splenomegaly. Sameer Alexandra MD Modified Barium Swallow 10/27/15 0000 Signed Impressions: Service Date/Time: Tuesday, October 27, 2015 00:00 - CONCLUSION: Negative for penetration or aspiration. Please see speech pathology report. Tai Cohen MD Brain MRI 10/22/15 0000 Signed Impressions: Service Date/Time: September 14:38 - CONCLUSION: 1. No significant interval change is identified. There is stable restricted diffusion in the left basal ganglia representing an area of recent ischemia. There are no findings to indicate hemorrhagic transformation. The previously documented signal change within the right cerebral peduncle has nearly normalized. 2. Stable chronic white matter changes. Camacho Culp MD Neck Magnetic Resonance Angiography 10/21/15 Signed Impressions: Service Date/Time: Wednesday, October 21, 2015 12:52 - CONCLUSION: . 1. Unremarkable MRA of the carotid arteries bilaterally. 2. Nonspecific possible collateral vessels in the soft tissues posterior to the right vertebral artery. The right verbal artery appears to be patent. If clinically indicated, a CTA could be performed for further evaluation. Abiodun Hall MD Head Magnetic Resonance Angiography 10/21/15 Signed Impressions: Service Date/Time: Wednesday, October 21, 2015 12:52 - CONCLUSION: Unremarkable MRA of the brain. Abiodun Hall MD Objective Remarks GENERAL: This is a well-nourished, well-developed patient, in no apparent distress. CARDIOVASCULAR: Regular rate and rhythm without murmurs, gallops, or rubs. RESPIRATORY: Clear to auscultation. Breath sounds equal bilaterally. No wheezes , rales, or rhonchi. GASTROINTESTINAL: Abdomen soft, non-tender, nondistended. Normal active bowel sounds MUSCULOSKELETAL: right BKA, Extremities without clubbing, cyanosis, or edema. NEURO: Alert & Oriented to person, situation Procedures None A/P Problem List: (1) Anemia ICD Code: D64.9 Status: Acute Plan: Status post posttransfusion 2 units packed red blood cells Hemoglobin above 9 today. Hemoccult-negative on exam yesterday. No signs of obvious bleeding (2) Sepsis ICD Code: A41.9 Status: Acute Plan: Continue empiric Cipro and Flagyl. Follow up cultures. (3) Abdominal pain ICD Code: R10.9 Status: Acute Plan: Etiology unclear at this time. Right upper quadrant pain appears better today. CT of the abdomen did show gallstones with some distention of the gallbladder and a hiatus scan was concerning for acute cholecystitis. General surgery did see the patient and recommended IR to place a cholecystostomy drain. Impression patient did pull draining out and surgery has recommended that we continue to follow with supportive care. Continue Protonix, follow-up bowel activity with bowel regimen (4) Acute kidney injury superimposed on CKD ICD Code: N17.9 Status: Acute Plan: Patient has chronic kidney disease stage III. DIALLO inhibitor held, will avoid nephrotoxins. Follow up IV fluids and continue to monitor urine output (5) CVA (cerebral vascular accident) ICD Code: I63.9 Status: Chronic Plan: Bilateral CVA with intermittent and persistent cognitive deficit. Patient will continue with Coumadin, statin, Seroquel. Patient requiring guardianship Continue rehabilitation efforts (6) LFT elevation ICD Code: R94.5 Status: Acute Plan: Likely due to gallbladder pathology. We'll continue to follow. Hepatitis profile pending We'll discuss with GI Follow trend Discharge Planning Patient will need long-term care, case management aware barriers to discharge Problem Qualifiers (1) CVA (cerebral vascular accident): Qualified Code: I63.9 - Cerebrovascular accident (CVA), unspecified mechanism Trisha Lim MD Jun 26, 2016 08:32
--- NOTE | 2016-06-26 09:01 | RADHPO ---
EXAM DATE/TIME: 06/26/2016 08:51 [facility] COMPARISON: No previous studies available for comparison. INDICATIONS : Fever MEDICAL HISTORY : None. SURGICAL HISTORY : CABG. ENCOUNTER: Subsequent ACUITY: 2 weeks PAIN SCORE: Non-responsive. LOCATION: Bilateral chest FINDINGS: Lung volumes are small. Trace bibasilar atelectasis. No pneumonia seen. No pleural effusion or pneumo thorax. Heart size stable, within normal limits. Patient has had previous median sternotomy. CONCLUSION: No evidence of acute cardiopulmonary disease. Camacho Lyon MD on June 26, 2016 at 8:59 Board Certified Radiologist. This report was verified electronically.
[2016-06-26] MEDS: DOCUSATE SODIUM 50 MG/SENNA 8.6 MG TAB PO SCH ×2 (09:22→23:20)
[2016-06-26] MEDS: QUEtiapine FUMARATE 100 MG TAB PO SCH ×2 (09:22→23:19)
[2016-06-26] MEDS: ATORVASTATIN 40 MG TAB PO SCH (09:22)
[2016-06-26] MEDS: FERROUS SULFATE 325 MG (65 MG ELEMENTAL IRON) TAB PO SCH (09:22)
[2016-06-26] MEDS: CARVEDILOL 12.5 MG TAB PO SCH ×2 (09:23→23:19)
[2016-06-26] MEDS: LACTULOSE SYRUP 20 GM/30 ML CUP PO SCH (09:23)
[2016-06-26] MEDS: POLYETHYLENE GLYCOL 17 GM PKG PO SCH (09:23)
[2016-06-26 09:50] LABS: BLOOD, URINE SMALL (NEG); GLUCOSE,URINE NEG (NEG); KETONE, URINE NEG (NEG); NITRITE,URINE NEG (NEG)
[2016-06-26 09:51] LABS: METHOD OF COLLECTION CATH; URINE COLOR YELLOW (YELLW/STRAW)
[2016-06-26 09:55] LABS: BACTERIA, URINE FEW /hpf; CULTURE IF INDICATED CATH CULTURE IND; SQUAMOUS EPITHELIAL CELL URINE 0-5 /hpf (0-5)
[2016-06-26 09:56] LABS: COMMENT (UR) CATH-CULTURE IND; COMMENT2 (UR) MUCOUS PRESENT; TRANSITIONAL EPI CELLS, URINE 0-5 /hpf
--- NOTE | 2016-06-26 10:53 | MB ---
cc: JAYLA AMARO M.D. DATE OF CONSULTATION: 06/26/2016 1955 REASON FOR REFERRAL Abdominal pain, anemia. Thank you for the consultation. HISTORY OF PRESENT ILLNESS A 61-year-old gentleman who has been in the hospital for 250 days approximately. He was found down with altered mental status, multiple medical issues including cellulitis. He has prolonged hospital stay. The patient was doing reasonably well and he had issue with guardianship and that is why he is in the hospital with slow recovery. The patient was doing reasonably okay until a few days ago when he dropped his hemoglobin significantly to 6.7 and complained of right upper quadrant pain. He was seen by surgery service. He had what had looked like acute cholecystitis on HIDA scan and ultrasound and CT scan. He had a cholecystectomy tube placed but he pulled it out. The patient is laying in bed, seems to be comfortable. No sign of discomfort or pain, not able to give good history and he has mild elevation of his transaminase. PAST MEDICAL HISTORY Significant for: 1. Obstructive sleep apnea. 2. Hypercholesterolemia. 3. Obesity. 4. Diabetes. 5. Hyperlipidemia. 6. Hypertension. 7. Congestive heart failure. 8. Peripheral vascular disease. 9. Ischemic cardiomyopathy. 10. Coronary artery disease. PAST SURGICAL HISTORY 1. Right BKA. 2. CABG. 3. Left kidney stent. SOCIAL HISTORY Not able to obtain. MEDICATIONS Reviewed in the chart. ALLERGIES PENICLLIN. FAMILY HISTORY None obtainable. REVIEW OF SYSTEMS The patient is nonverbal, so not able to obtain, but laying in bed comfortably. PHYSICAL EXAMINATION GENERAL: Awake, opens eyes, smiles. No sign of acute distress. VITAL SIGNS: Stable. HEENT: Pupils are round, reactive to light. NECK: Supple. CHEST: Clear to auscultation and percussion. ABDOMEN: Soft, nondistended and nontender at this time. Positive bowel sounds. CARDIAC: Regular rate and rhythm. EXTREMITIES: The patient has right below-knee amputation. NEUROLOGIC: Seems to be able to move all four extremities. PSYCHOLOGIC: Unable to assess. LABORATORY DATA BUN 28, creatinine 1.3 and more recently a BUN 48, creatinine 1.9, sodium 142, potassium 4.0, total bilirubin 0.3, AST 33, ALT 82. This was higher two days ago with AST of 51, ALT of 113, alk phos 339. Hepatitis profile is negative. IMAGING STUDIES CT scan, ultrasound and HIDA scan all consistent with cholecystitis. ASSESSMENT/PLAN 1. A 61-year-old gentleman who has abdominal pain, anemia, most likely the abdominal pain is related to cholecystitis but it seems improved after the cholecystectomy tube. This will be managed by surgery and being followed by surgery at this time. 2. Anemia. Stool was heme-negative. We can consider doing an upper endoscopy and colonoscopy, seems to be stable for that. We can plan on doing that tomorrow if he tolerates prep. We will see who can sign for a consent for him and we can do this either tomorrow or after tomorrow based on the consent. MD SHILPA Muñiz/DOTTIE /10:21 AM /10:34 AM
[2016-06-26] MEDS: EUCERIN CREAM 120 GM JAR TOPICAL SCH ×2 (13:10→23:21)
[2016-06-26] MEDS: SODIUM CHLOR 0.9% 1000 ML INJ 1,000 ML IV SCH (14:49)
[2016-06-26] MEDS: CIPROFLOXACIN 400 MG PREMIX 200 ML IV SCH (17:16)
[2016-06-26] MEDS: ISOSORBIDE MONONITRATE 60 MG TAB PO SCH (23:19)
[2016-06-27] VITALS: BP 128/55; PULSE 74; RESP 20; TEMP 97.4; O2SAT 94
[2016-06-27] MEDS: SODIUM CHLOR 0.9% 1000 ML INJ 1,000 ML IV SCH ×3 (00:37→21:27)
[2016-06-27] MEDS: metroNIDAZOLE 500 MG INJ 100 ML IV SCH ×4 (01:08→19:41)
[2016-06-27 04:00] VITALS: BP 114/84; PULSE 76; RESP 20; TEMP 98.8; O2SAT 96
[2016-06-27] MEDS: CIPROFLOXACIN 400 MG PREMIX 200 ML IV SCH ×2 (05:10→17:07)
[2016-06-27 06:45] LABS: AUTOMATED NEUTROPHIL # 11.7 TH/MM3 (1.8-7.7); BASOPHIL % 0.1 % (0.0-2.0); EOSINOPHIL # 0.2 TH/MM3 (0-0.4); EOSINOPHIL % 1.3 % (0.0-4.0); LYMPH % 7.1 % (9.0-44.0); MEAN CELL VOLUME 82.6 FL (80.0-100.0); MEAN CORPUSCULAR HEMOGLOBIN 26.4 PG (27.0-34.0); MEAN CORPUSCULAR HGB CONC 31.9 % (32.0-36.0); NEUT % 85.5 % (16.0-70.0); PLATELET COUNT 312 TH/MM3 (150-450); RED BLOOD COUNT 3.27 MIL/MM3 (4.50-5.90); RED CELL DISTRIBUTION WIDTH 14.7 % (11.6-17.2); WHITE BLOOD COUNT 13.7 TH/MM3 (4.0-11.0)
[2016-06-27 06:50] LABS: HEMO FLAGS DIFF FINAL
[2016-06-27 06:57] LABS: CHLORIDE 112 MEQ/L (98-107); SODIUM (NA) 144 MEQ/L (136-145)
[2016-06-27 06:59] LABS: INTERNATIONAL NORMALIZED RATIO 1.6 RATIO; PROTHROMBIN TIME - PATIENT 17.7 SEC (9.8-11.6)
[2016-06-27 07:03] LABS: ANION GAP 8 MEQ/L (5-15); BICARBONATE 23.7 MEQ/L (21.0-32.0); BLOOD UREA NITROGEN 50 MG/DL (7-18)
[2016-06-27 07:06] LABS: ALT (GPT) 62 U/L (12-78); AST (GOT) 26 U/L (15-37); GLOMERULAR FILTRATION RATE 36 ML/MIN (>89)
[2016-06-27 07:08] LABS: TOTAL BILIRUBIN ADULT 0.5 MG/DL (0.2-1.0)
[2016-06-27 07:09] LABS: ALKALINE PHOSPHATASE 336 U/L (45-117)
[2016-06-27 08:00] VITALS: BP 121/80; PULSE 77; PULSE 80; RESP 18; TEMP 99; O2SAT 93
[2016-06-27] MEDS: LACTULOSE SYRUP 20 GM/30 ML CUP PO SCH (08:15)
[2016-06-27] MEDS: POLYETHYLENE GLYCOL 17 GM PKG PO SCH (08:16)
[2016-06-27] MEDS: PANTOPRAZOLE SODIUM 40 MG VIAL IV SCH (08:16)
[2016-06-27] MEDS: ACETAMINOPHEN/HYDROcodone 325 MG/5 MG TAB PO PRN ×2 (08:17→13:53)
[2016-06-27] MEDS: QUEtiapine FUMARATE 100 MG TAB PO SCH ×2 (08:18→21:17)
[2016-06-27] MEDS: FERROUS SULFATE 325 MG (65 MG ELEMENTAL IRON) TAB PO SCH (08:18)
[2016-06-27] MEDS: ATORVASTATIN 40 MG TAB PO SCH (08:19)
[2016-06-27] MEDS: DOCUSATE SODIUM 50 MG/SENNA 8.6 MG TAB PO SCH ×2 (08:19→21:00)
[2016-06-27] MEDS: CARVEDILOL 12.5 MG TAB PO SCH ×2 (08:19→21:17)
[2016-06-27] MEDS: EUCERIN CREAM 120 GM JAR TOPICAL SCH ×2 (08:20→21:19)
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
[2016-06-27 12:00] VITALS: BP 118/77; PULSE 80; RESP 19; TEMP 98.8; O2SAT 99
[2016-06-27 16:00] VITALS: BP 151/82; PULSE 88; RESP 17; TEMP 97.8; O2SAT 96
--- NOTE | 2016-06-27 19:11 | HHI.GIFU ---
Subjective Remarks laying in bed seems to be comfortable, questionable abdominal pain Objective Vitals I&O Vital Signs Date Time Temp Pulse Resp B/P Pulse Ox O2 Delivery O2 Flow Rate FiO2 06/27/16 16:00 97.8 88 17 151/82 96 06/27/16 14:53 20 06/27/16 12:00 98.8 80 19 118/77 99 06/27/16 08:00 99.0 77 18 121/80 93 06/27/16 08:00 80 06/27/16 04:00 98.8 76 20 114/84 96 06/27/16 00:00 97.4 74 20 128/55 94 06/26/16 20:00 82 06/26/16 20:00 99.0 79 20 139/91 96 I/O 06/26/16 06/26/16 06/26/16 06/27/16 06/27/16 06/27/16 07:00 15:00 23:00 07:00 15:00 23:00 Intake Total 1159 ml 300 ml 800 ml 800 ml 420 ml Output Total 700 ml 400 ml Balance 1159 ml -400 ml 800 ml 800 ml 20 ml Intake Oral 120 ml 300 ml 420 ml IV Total 704 ml 800 ml 800 ml Packed Cells 335 ml Output Urine Total 700 ml 400 ml # Voids 2 # Bowel Movements 0 0 Laboratory Laboratory Tests Test 06/27/16 06:00 White Blood Count 13.7 Red Blood Count 3.27 Hemoglobin 8.6 Hematocrit 27.0 Mean Corpuscular Volume 82.6 Mean Corpuscular Hemoglobin 26.4 Mean Corpuscular Hemoglobin 31.9 Concent Red Cell Distribution Width 14.7 Platelet Count 312 Mean Platelet Volume 7.0 Neutrophils (%) (Auto) 85.5 Lymphocytes (%) (Auto) 7.1 Monocytes (%) (Auto) 6.0 Eosinophils (%) (Auto) 1.3 Basophils (%) (Auto) 0.1 Neutrophils # (Auto) 11.7 Lymphocytes # (Auto) 1.0 Monocytes # (Auto) 0.8 Eosinophils # (Auto) 0.2 Basophils # (Auto) 0.0 CBC Comment DIFF FINAL Differential Comment Prothrombin Time 17.7 Prothromb Time International 1.6 Ratio Sodium Level 144 Potassium Level 4.0 Chloride Level 112 Carbon Dioxide Level 23.7 Anion Gap 8 Blood Urea Nitrogen 50 Creatinine 1.90 Estimat Glomerular Filtration 36 Rate Random Glucose 140 Calcium Level 8.6 Total Bilirubin 0.5 Aspartate Amino Transf 26 (AST/SGOT) Alanine Aminotransferase 62 (ALT/SGPT) Alkaline Phosphatase 336 Total Protein 7.2 Albumin 2.2 Date/Time Procedure Status Source Growth 06/26/16 09:35 Urine Culture - Preliminary Resulted Urine Catheterized Urine <10,000 CFU/ML MIXED GRAM POSITIVE FL... 06/25/16 18:12 Aerobic Blood Culture - Preliminary Resulted Blood Peripheral NO GROWTH IN 2 DAYS 06/25/16 18:12 Anaerobic Blood Culture - Preliminary Resulted Blood Peripheral NO GROWTH IN 2 DAYS Physical Exam HEENT: Pupils round and reactive to light; normocephalic; atraumatic; no jaundice. Throat is clear. NECK: Neck is supple, no JVD, no lymphadenopathy. CHEST: Chest is clear to auscultation and percussion. CARDIAC: Regular rate and rhythm with no murmur gallop or rubs. ABDOMEN: Soft, nondistended, minimal RUQ tender; no hepatosplenomegaly; bowel sounds are present in all four quadrants. EXTREMITIES: No clubbing, cyanosis, or edema. SKIN: Normal; no rash; no jaundice. FIELD CROP TECHNICAL OFFICER: No focal deficits; alert not very response to conversation. Assessment and Plan Physician Comments patient had anemia S/P blood transfusion, rectal exam was negative for blood, non emergent need fr colon EGD, FU H/H, PRBC as needed, may consider colon EGD if active bleed LFTs is improving after tube placement in the GB, the was pulled by patient. F/ U LFTs and FU by surgery we will FU as needed, please call us if any other question. Javier Victoria MD Jun 27, 2016 19:11
[2016-06-27 20:00] VITALS: BP 142/88; PULSE 80; PULSE 82; RESP 20; TEMP 99.7; O2SAT 95
[2016-06-27] MEDS: ISOSORBIDE MONONITRATE 60 MG TAB PO SCH (21:17)
[2016-06-27] MEDS: WARFARIN SOD 5 MG TAB PO SCH (21:26)
[2016-06-28] MEDS: metroNIDAZOLE 500 MG INJ 100 ML IV SCH ×4 (02:01→19:55)
[2016-06-28] MEDS: CIPROFLOXACIN 400 MG PREMIX 200 ML IV SCH ×2 (05:31→16:58)
[2016-06-28 06:38] LABS: AUTOMATED NEUTROPHIL # 8.9 TH/MM3 (1.8-7.7); BASOPHIL % 0.4 % (0.0-2.0); EOSINOPHIL # 0.2 TH/MM3 (0-0.4); EOSINOPHIL % 2.1 % (0.0-4.0); HEMATOCRIT 23.4 % (39.0-51.0); HEMO FLAGS DIFF FINAL; LYMPH % 8.3 % (9.0-44.0); LYMPHOCYTE # 0.9 TH/MM3 (1.0-4.8); MEAN CELL VOLUME 82.7 FL (80.0-100.0); MEAN CORPUSCULAR HGB CONC 32.7 % (32.0-36.0); MONO % 7.2 % (0.0-8.0); PLATELET COUNT 279 TH/MM3 (150-450); RED BLOOD COUNT 2.84 MIL/MM3 (4.50-5.90); RED CELL DISTRIBUTION WIDTH 14.7 % (11.6-17.2); WHITE BLOOD COUNT 10.8 TH/MM3 (4.0-11.0)
[2016-06-28 06:46] LABS: CHLORIDE 113 MEQ/L (98-107); POTASSIUM 3.9 MEQ/L (3.5-5.1); SODIUM (NA) 144 MEQ/L (136-145)
[2016-06-28 06:52] LABS: ANION GAP 9 MEQ/L (5-15); BICARBONATE 22.3 MEQ/L (21.0-32.0); BLOOD UREA NITROGEN 44 MG/DL (7-18)
[2016-06-28 06:55] LABS: ALT (GPT) 43 U/L (12-78); AST (GOT) 19 U/L (15-37); GLOMERULAR FILTRATION RATE 44 ML/MIN (>89)
[2016-06-28 06:56] LABS: TOTAL BILIRUBIN ADULT 0.3 MG/DL (0.2-1.0)
[2016-06-28 06:58] LABS: ALKALINE PHOSPHATASE 308 U/L (45-117); INTERNATIONAL NORMALIZED RATIO 1.3 RATIO; PROTHROMBIN TIME - PATIENT 14.3 SEC (9.8-11.6)
[2016-06-28] MEDS: SODIUM CHLOR 0.9% 1000 ML INJ 1,000 ML IV SCH ×2 (07:27→16:58)
[2016-06-28 08:00] VITALS: BP 131/84; PULSE 71; RESP 20; TEMP 97.9; O2SAT 97
[2016-06-28] MEDS: EUCERIN CREAM 120 GM JAR TOPICAL SCH ×2 (09:00→20:07)
[2016-06-28] MEDS: ATORVASTATIN 40 MG TAB PO SCH (09:21)
[2016-06-28] MEDS: PANTOPRAZOLE SODIUM 40 MG VIAL IV SCH (09:21)
[2016-06-28] MEDS: FERROUS SULFATE 325 MG (65 MG ELEMENTAL IRON) TAB PO SCH (09:21)
[2016-06-28] MEDS: QUEtiapine FUMARATE 100 MG TAB PO SCH ×2 (09:21→20:06)
[2016-06-28] MEDS: LACTULOSE SYRUP 20 GM/30 ML CUP PO SCH (09:22)
[2016-06-28] MEDS: POLYETHYLENE GLYCOL 17 GM PKG PO SCH (09:22)
[2016-06-28] MEDS: CARVEDILOL 12.5 MG TAB PO SCH ×2 (09:22→20:05)
[2016-06-28] MEDS: DOCUSATE SODIUM 50 MG/SENNA 8.6 MG TAB PO SCH ×2 (09:23→20:06)
--- NOTE | 2016-06-28 11:48 | HHI.PR ---
Subjective Subjective Notes Resting in bed Objective Vitals/I&O Vital Signs Date Time Temp Pulse Resp B/P Pulse Ox O2 Delivery O2 Flow Rate FiO2 06/28/16 08:00 97.9 71 20 131/84 97 Labs Laboratory Tests Test 06/28/16 06:25 White Blood Count 10.8 Red Blood Count 2.84 Hemoglobin 7.7 Hematocrit 23.4 Mean Corpuscular Volume 82.7 Mean Corpuscular Hemoglobin 27.0 Mean Corpuscular Hemoglobin 32.7 Concent Red Cell Distribution Width 14.7 Platelet Count 279 Mean Platelet Volume 6.6 Neutrophils (%) (Auto) 82.0 Lymphocytes (%) (Auto) 8.3 Monocytes (%) (Auto) 7.2 Eosinophils (%) (Auto) 2.1 Basophils (%) (Auto) 0.4 Neutrophils # (Auto) 8.9 Lymphocytes # (Auto) 0.9 Monocytes # (Auto) 0.8 Eosinophils # (Auto) 0.2 Basophils # (Auto) 0.0 CBC Comment DIFF FINAL Differential Comment Prothrombin Time 14.3 Prothromb Time International 1.3 Ratio Sodium Level 144 Potassium Level 3.9 Chloride Level 113 Carbon Dioxide Level 22.3 Anion Gap 9 Blood Urea Nitrogen 44 Creatinine 1.60 Estimat Glomerular Filtration 44 Rate Random Glucose 149 Calcium Level 7.9 Total Bilirubin 0.3 Aspartate Amino Transf 19 (AST/SGOT) Alanine Aminotransferase 43 (ALT/SGPT) Alkaline Phosphatase 308 Total Protein 6.4 Albumin 1.9 Date/Time Procedure Status Source Growth 06/26/16 09:35 Urine Culture - Preliminary Resulted Urine Catheterized Urine Group D Enterococcus 06/25/16 18:12 Aerobic Blood Culture - Preliminary Resulted Blood Peripheral NO GROWTH IN 3 DAYS 06/25/16 18:12 Anaerobic Blood Culture - Preliminary Resulted Blood Peripheral NO GROWTH IN 3 DAYS Cardiovascular: Regular Lungs: Clear Abdomen: Other (RUQ pain with deep palpation; abdomen soft ) Extremities: No edema A/P Assessment and Plan 61 year old male with multiple medical problems now with abdominal pain -Cholecystomy tube placed but patient pulled out -LFT continue to improve -On Cipro/Flagyl -Patient is a poor surgical candidate due to other medical problems -Discussed with Dr. Panchal Attending Statement Patient seen at bedside leonila tube out lfts improving abdominal exam benign Attestation The exam, history, and the medical decision-making described in the above note were completed with the assistance of the mid-level provider. I reviewed and agree with the findings presented. I attest that I had a [id number] encounter with the patient on the same day, and personally performed and documented my assessment and findings in the medical record. Jennifer Kelley Jun 28, 2016 11:48 Gagandeep Panchal MD Jul 03, 2016 21:08
--- NOTE | 2016-06-28 17:09 | HHI.PR ---
Subjective Remarks Patient seen and examined today. Patient denies any recurrent pain. He is not indicating that he is having abdominal pain. He is sitting eating without any complications or complaints. Objective Vitals Vital Signs Date Time Temp Pulse Resp B/P Pulse Ox O2 Delivery O2 Flow Rate FiO2 06/28/16 08:00 97.9 71 20 131/84 97 06/27/16 20:00 99.7 82 20 142/88 95 06/27/16 20:00 80 I/O 06/27/16 06/27/16 06/27/16 06/28/16 06/28/16 06/28/16 07:00 15:00 23:00 07:00 15:00 23:00 Intake Total 800 ml 660 ml 120 ml 740 ml Output Total 1200 ml 375 ml 350 ml Balance 800 ml -540 ml -255 ml 390 ml Intake Oral 420 ml 120 ml 740 ml Oral Supplement 240 ml IV Total 800 ml Output Urine Total 1200 ml 375 ml 350 ml # Bowel Movements 0 0 0 Result Diagram: 06/28/1662406/28/16624 Objective Remarks GENERAL: Well-developed, well-nourished, in no acute distress. Alert and orientated to person HEENT: Head is normocephalic without any lesions or masses noted. Facial features are symmetric. Extraocular muscles are intact. Conjunctivae were clear. NECK: Trachea midline no deviation. CARDIAC: Regular rhythm, regular rate. S1/S2 are heard. No murmurs gallops or rubs. LUNGS: Clear to auscultation bilaterally. No wheeze, rhonchi or rales. No use of accessory muscles on inspiration or expiration. ABDOMEN: Soft, tenderness noted right upper quadrant. Positive rebound. Nondistended. Bowel sounds heard in all 4 quadrants. No organomegaly or masses. Cholecystotomy drain noted with yellow/orange fluid EXTREMITIES: No edema, pulses are equal bilaterally. No cyanosis or clubbing. Right below--knee amputation. NEUROLOGY: Mood and affect appear appropriate. Cranial nerves II through XII grossly intact. Moving all extremities, speech is clear Procedures None Urinary Catheter: No Vascular Central Line Catheter: No A/P Assessment and Plan 60-year-old male with admitted 10/14 with acute cortical infarct. Patient remains with significant cognitive deficit. Acute anemia, improved after transfusion Status post 2 units packed red blood cells. Hemoccult was negative GI was consulted who recommended the patient undergo endoscopy electively. Patient does have guardianship issues and unable to obtain consent to this time. Continue monitor hemoglobin, if continues to drop may need to reconsult GI. Iron studies were performed which appears to be normal Sepsis, resolved. Patient initially had leukocytosis, low-grade fever. Infectious source was suspected to be cholecystitis after patient pulled his drain out. Leukocytosis has resolved Blood cultures are negative Chest x-ray was performed which did not indicate any abnormality Patient continued on Cipro/Flagyl IV Continue IV fluids and IV antibiotics for at least 1 more day, if patient remains afebrile in no signs of infection. Change to by mouth medication and discontinue IV fluids. Abdominal pain, right upper quadrant CT the abdomen shows gallstones with distended gallbladder Abdominal ultrasound indicates gallstones HIDA scan shows signs of acute cholecystitis Consulted general surgery who is following the patient Surgery recommended placement cholecystotomy drain Interventional radiology successfully placed cholecystotomy drain. However, patient removed the drain himself. And drain was not replaced. Bilateral cerebrovascular accident, with Intermittent and persistent cognitive defect -MRI showed acute cortical infarct of the right cerebral peduncle to the pelvis , left thalamus punctate area of infarct -Neurology last seen patient on 11/13/15, recommended long-term anticoagulation -Continue with Statin. -Continue Coumadin daily and monitor INR/PT keep INR between 2 and 3, pharmacy consult for dosing. INR 1.3, -Reconsulted PT/OT, patient will require intermittent therapy while he remains in the hospital so he does not decompensate -Out of bed with nursing only. Patient was counseled to not get out of bed on his own. Fall risk due to cognitive deficit -Psychiatry reconsulted 02/17 for evaluation and appreciate recommendations on patient's cognition, agitation -Seroquel 100 mg daily and 150 mg at bedtime Urinary tract infection, resolved Patient asymptomatic, no fever, leukocytosis, signs of infection Urine culture indicates enterococcus faecalis which is resistant to Cipro Status post Macrobid 100 mg twice daily for 10 days Repeat urine culture 05/27/16 indicates 50-100,000 colonies mixed char Hypertension: Blood pressure labile Amlodipine 10 mg daily carvedilol 25 bid, Imdur 60 daily Ischemic Cardiomyopathy/chronic systolic CHF LVEF 35% on echo 03/2015. Denies shortness of breath. Compensated. -Continue Coreg, Imdur, enalapril. -Could consider AICD if patient is able to consent, however patient is currently unable to consent -Fluid and sodium restrictions, follow volume status. Chronic kidney disease stage 3/4. Stable -Patient with intermittent worsening due to poor by mouth intake -Avoid nephrotoxins. -Monitor BMP intermittently -Discontinue DIALLO inhibitor due to hyperkalemia Seborrhea dermatitis Status post hydrocortisone cream for 2 weeks Encourage proper hygiene Diabetic mellitus - Glucose was well controlled. All insulin discontinued. -accu-checks discontinued as patient's blood sugar well controlled and Hgb A1c 6.9. -continue diet control Peripheral arterial disease-stable. -Continue anticoagulation Constipation, patient having bowel movement every 2-3 days -Abdominal x-ray 02/16 indicates moderate amount of stool in the colon on the left side. -Milk of magnesia as needed. -MiraLAX, lactulose, [place]-Colace daily, lactulose, MiraLAX -Dulcolax as needed DVT prophylaxis - patient on Coumadin Discharge Planning Discharge planning per case management Truman Fulton Jun 28, 2016 17:09
[2016-06-28 20:00] VITALS: BP 91/79; PULSE 80; RESP 20; TEMP 98.2; O2SAT 95
[2016-06-28] MEDS: WARFARIN SOD 5 MG TAB PO SCH (20:05)
[2016-06-28] MEDS: ISOSORBIDE MONONITRATE 60 MG TAB PO SCH (20:05)
[2016-06-29] MEDS: metroNIDAZOLE 500 MG INJ 100 ML IV SCH ×2 (02:29→09:46)
[2016-06-29] MEDS: CIPROFLOXACIN 400 MG PREMIX 200 ML IV SCH (06:53)
[2016-06-29 07:35] LABS: AUTOMATED NEUTROPHIL # 7.8 TH/MM3 (1.8-7.7); BASOPHIL % 0.3 % (0.0-2.0); EOSINOPHIL # 0.3 TH/MM3 (0-0.4); EOSINOPHIL % 3.1 % (0.0-4.0); HEMATOCRIT 23.4 % (39.0-51.0); HEMO FLAGS DIFF FINAL; LYMPH % 9.5 % (9.0-44.0); LYMPHOCYTE # 0.9 TH/MM3 (1.0-4.8); MEAN CELL VOLUME 82.5 FL (80.0-100.0); MEAN CORPUSCULAR HGB CONC 32.7 % (32.0-36.0); MONO % 8.5 % (0.0-8.0); NEUT % 78.6 % (16.0-70.0); PLATELET COUNT 255 TH/MM3 (150-450); RED BLOOD COUNT 2.83 MIL/MM3 (4.50-5.90); RED CELL DISTRIBUTION WIDTH 14.6 % (11.6-17.2); WHITE BLOOD COUNT 9.8 TH/MM3 (4.0-11.0)
[2016-06-29 07:41] LABS: POTASSIUM 4.3 MEQ/L (3.5-5.1)
[2016-06-29 07:44] LABS: INTERNATIONAL NORMALIZED RATIO 1.2 RATIO; PROTHROMBIN TIME - PATIENT 13.8 SEC (9.8-11.6)
[2016-06-29 07:46] LABS: BICARBONATE 24.6 MEQ/L (21.0-32.0); MAGNESIUM 1.8 MG/DL (1.5-2.5)
[2016-06-29] MEDS: EUCERIN CREAM 120 GM JAR TOPICAL SCH ×2 (09:00→22:16)
[2016-06-29 09:36] VITALS: BP 140/80; PULSE 82; RESP 18; TEMP 97.9; O2SAT 97
[2016-06-29] MEDS: POLYETHYLENE GLYCOL 17 GM PKG PO SCH (09:46)
[2016-06-29] MEDS: PANTOPRAZOLE SODIUM 40 MG VIAL IV SCH (09:47)
[2016-06-29] MEDS: ATORVASTATIN 40 MG TAB PO SCH (09:47)
[2016-06-29] MEDS: LACTULOSE SYRUP 20 GM/30 ML CUP PO SCH (09:47)
[2016-06-29] MEDS: CARVEDILOL 12.5 MG TAB PO SCH ×2 (09:48→22:13)
[2016-06-29] MEDS: FERROUS SULFATE 325 MG (65 MG ELEMENTAL IRON) TAB PO SCH (09:48)
[2016-06-29] MEDS: DOCUSATE SODIUM 50 MG/SENNA 8.6 MG TAB PO SCH ×2 (09:48→22:13)
[2016-06-29] MEDS: QUEtiapine FUMARATE 100 MG TAB PO SCH ×2 (09:48→22:13)
--- NOTE | 2016-06-29 10:14 | HHI.PR ---
Subjective Subjective Notes pt seen at bedside, he is afebrile, currently has no pain on my exam, denies any pain today Objective Vitals/I&O Vital Signs Date Time Temp Pulse Resp B/P Pulse Ox O2 Delivery O2 Flow Rate FiO2 06/29/16 09:36 97.9 82 18 140/80 97 Labs Laboratory Tests Test 06/29/16 07:10 White Blood Count 9.8 Red Blood Count 2.83 Hemoglobin 7.6 Hematocrit 23.4 Mean Corpuscular Volume 82.5 Mean Corpuscular Hemoglobin 27.0 Mean Corpuscular Hemoglobin 32.7 Concent Red Cell Distribution Width 14.6 Platelet Count 255 Mean Platelet Volume 6.7 Neutrophils (%) (Auto) 78.6 Lymphocytes (%) (Auto) 9.5 Monocytes (%) (Auto) 8.5 Eosinophils (%) (Auto) 3.1 Basophils (%) (Auto) 0.3 Neutrophils # (Auto) 7.8 Lymphocytes # (Auto) 0.9 Monocytes # (Auto) 0.8 Eosinophils # (Auto) 0.3 Basophils # (Auto) 0.0 CBC Comment DIFF FINAL Differential Comment Prothrombin Time 13.8 Prothromb Time International 1.2 Ratio Sodium Level 145 Potassium Level 4.3 Chloride Level 113 Carbon Dioxide Level 24.6 Anion Gap 7 Blood Urea Nitrogen 34 Creatinine 1.50 Estimat Glomerular Filtration 48 Rate Random Glucose 133 Calcium Level 7.9 Magnesium Level 1.8 Date/Time Procedure Status Source Growth 06/26/16 09:35 Urine Culture - Preliminary Resulted Urine Catheterized Urine Group D Enterococcus 06/25/16 18:12 Aerobic Blood Culture - Preliminary Resulted Blood Peripheral NO GROWTH IN 3 DAYS 06/25/16 18:12 Anaerobic Blood Culture - Preliminary Resulted Blood Peripheral NO GROWTH IN 3 DAYS Abdomen: Non-distended, Non-tender, Other (previous leonila tube site with bandage c/d/i) A/P Assessment and Plan currently no evidence of pain, s/p improvement with leonila tube s/p removal by patient PLAN Pt is a high risk surgical candidate recommend conservative medical treatment, non operative management, CMP not significantly changed will continue to follow peripherally Gagandeep Panchal MD Jun 29, 2016 10:14
--- NOTE | 2016-06-29 13:25 | HHI.PR ---
Subjective Remarks Patient seen and examined today. Patient denies any new complaints. Patient denies any abdominal pain. Objective Vitals Vital Signs Date Time Temp Pulse Resp B/P Pulse Ox O2 Delivery O2 Flow Rate FiO2 06/29/16 09:36 97.9 82 18 140/80 97 06/28/16 20:00 98.2 80 20 91/79 95 I/O 06/28/16 06/28/16 06/28/16 06/29/16 06/29/16 06/29/16 07:00 15:00 23:00 07:00 15:00 23:00 Intake Total 120 ml 740 ml 480 ml 120 ml Output Total 375 ml 350 ml 875 ml 1000 ml Balance -255 ml 390 ml -395 ml -880 ml Intake Oral 120 ml 740 ml 240 ml 120 ml Oral Supplement 240 ml Output Urine Total 375 ml 350 ml 875 ml 1000 ml Stool Total 0 ml # Voids 1 # Bowel Movements 0 0 0 Result Diagram: 06/29/16 0710 06/29/16 0710 Objective Remarks GENERAL: Well-developed, well-nourished, in no acute distress. Alert and orientated to person HEENT: Head is normocephalic without any lesions or masses noted. Facial features are symmetric. Extraocular muscles are intact. Conjunctivae were clear. NECK: Trachea midline no deviation. CARDIAC: Regular rhythm, regular rate. S1/S2 are heard. No murmurs gallops or rubs. LUNGS: Clear to auscultation bilaterally. No wheeze, rhonchi or rales. No use of accessory muscles on inspiration or expiration. ABDOMEN: Soft, tenderness noted right upper quadrant. Positive rebound. Nondistended. Bowel sounds heard in all 4 quadrants. No organomegaly or masses. Cholecystotomy drain noted with yellow/orange fluid EXTREMITIES: No edema, pulses are equal bilaterally. No cyanosis or clubbing. Right below--knee amputation. NEUROLOGY: Mood and affect appear appropriate. Cranial nerves II through XII grossly intact. Moving all extremities, speech is clear Procedures None Urinary Catheter: No Vascular Central Line Catheter: No A/P Assessment and Plan 60-year-old male with admitted 10/14 with acute cortical infarct. Patient remains with significant cognitive deficit. Acute anemia, improved after transfusion Status post 2 units packed red blood cells. Hemoccult was negative GI was consulted who recommended the patient undergo endoscopy electively. Patient does have guardianship issues and unable to obtain consent to this time. Continue monitor hemoglobin, if continues to drop may need to reconsult GI. Iron studies were performed which appears to be normal Sepsis, resolved. Patient initially had leukocytosis, low-grade fever. Infectious source was suspected to be cholecystitis after patient pulled his drain out. Leukocytosis has resolved Blood cultures are negative Chest x-ray was performed which did not indicate any abnormality Change to Cipro/Flagyl by mouth for another 10 days Discontinue Continue IV fluids and IV antibiotics Abdominal pain, right upper quadrant CT the abdomen shows gallstones with distended gallbladder Abdominal ultrasound indicates gallstones HIDA scan shows signs of acute cholecystitis Consulted general surgery who is following the patient Surgery recommended placement cholecystotomy drain Interventional radiology successfully placed cholecystotomy drain. However, patient removed the drain himself. And drain was not replaced. Bilateral cerebrovascular accident, with Intermittent and persistent cognitive defect -MRI showed acute cortical infarct of the right cerebral peduncle to the pelvis , left thalamus punctate area of infarct -Neurology last seen patient on 11/13/15, recommended long-term anticoagulation -Continue with Statin. -Continue Coumadin daily and monitor INR/PT keep INR between 2 and 3, pharmacy consult for dosing. INR 1.2, -Reconsulted PT/OT, patient will require intermittent therapy while he remains in the hospital so he does not decompensate -Out of bed with nursing only. Patient was counseled to not get out of bed on his own. Fall risk due to cognitive deficit -Psychiatry reconsulted 02/17 for evaluation and appreciate recommendations on patient's cognition, agitation -Seroquel 100 mg daily and 150 mg at bedtime Urinary tract infection, resolved Patient asymptomatic, no fever, leukocytosis, signs of infection Urine culture indicates enterococcus faecalis which is resistant to Cipro Start Macrobid 100 mg twice daily for 10 days Hypertension: Blood pressure labile Amlodipine 10 mg daily carvedilol 25 bid, Imdur 60 daily Ischemic Cardiomyopathy/chronic systolic CHF LVEF 35% on echo 03/2015. Denies shortness of breath. Compensated. -Continue Coreg, Imdur, enalapril. -Could consider AICD if patient is able to consent, however patient is currently unable to consent -Fluid and sodium restrictions, follow volume status. Chronic kidney disease stage 3/4. Stable -Patient with intermittent worsening due to poor by mouth intake -Avoid nephrotoxins. -Monitor BMP intermittently -Discontinue DIALLO inhibitor due to hyperkalemia Seborrhea dermatitis Status post hydrocortisone cream for 2 weeks Encourage proper hygiene Diabetic mellitus - Glucose was well controlled. All insulin discontinued. -accu-checks discontinued as patient's blood sugar well controlled and Hgb A1c 6.9. -continue diet control Peripheral arterial disease-stable. -Continue anticoagulation Constipation, patient having bowel movement every 2-3 days -Abdominal x-ray 02/16 indicates moderate amount of stool in the colon on the left side. -Milk of magnesia as needed. -MiraLAX, lactulose, Haydee-Colace daily, lactulose, MiraLAX -Dulcolax as needed DVT prophylaxis - patient on Coumadin Discharge Planning Discharge planning per case management Truman Fulton Jun 29, 2016 13:25
[2016-06-29] MEDS: metroNIDAZOLE 500 MG TAB PO SCH ×2 (14:26→22:13)
[2016-06-29] MEDS: NITROFURANTOIN MONOHYD MACROCR 100 MG CAP PO SCH (17:05)
[2016-06-29 20:00] VITALS: BP 151/98; PULSE 87; RESP 18; TEMP 98.7; O2SAT 98
[2016-06-29] MEDS: PANTOPRAZOLE SOD 40 MG DELAYED RELEASE TAB PO SCH (22:12)
[2016-06-29] MEDS: CIPROFLOXACIN 500 MG TAB PO SCH (22:13)
[2016-06-29] MEDS: ISOSORBIDE MONONITRATE 60 MG TAB PO SCH (22:13)
[2016-06-29] MEDS: ACETAMINOPHEN/HYDROcodone 325 MG/5 MG TAB PO PRN (22:14)
[2016-06-29] MEDS: WARFARIN SOD 5 MG TAB PO SCH (22:15)
[2016-06-30] MEDS: metroNIDAZOLE 500 MG TAB PO SCH ×3 (06:47→21:08)
[2016-06-30 06:52] LABS: INTERNATIONAL NORMALIZED RATIO 1.3 RATIO; PROTHROMBIN TIME - PATIENT 14.2 SEC (9.8-11.6)
[2016-06-30 08:00] VITALS: BP 128/70; PULSE 80; RESP 18; TEMP 98; O2SAT 95
[2016-06-30] MEDS: CIPROFLOXACIN 500 MG TAB PO SCH ×2 (08:26→21:08)
[2016-06-30] MEDS: POLYETHYLENE GLYCOL 17 GM PKG PO SCH (08:26)
[2016-06-30] MEDS: LACTULOSE SYRUP 20 GM/30 ML CUP PO SCH (08:26)
[2016-06-30] MEDS: ATORVASTATIN 40 MG TAB PO SCH (08:26)
[2016-06-30] MEDS: NITROFURANTOIN MONOHYD MACROCR 100 MG CAP PO SCH ×2 (08:26→17:00)
[2016-06-30] MEDS: FERROUS SULFATE 325 MG (65 MG ELEMENTAL IRON) TAB PO SCH (08:26)
[2016-06-30] MEDS: DOCUSATE SODIUM 50 MG/SENNA 8.6 MG TAB PO SCH ×2 (08:26→21:08)
[2016-06-30] MEDS: QUEtiapine FUMARATE 100 MG TAB PO SCH ×2 (08:26→21:08)
[2016-06-30] MEDS: PANTOPRAZOLE SOD 40 MG DELAYED RELEASE TAB PO SCH ×2 (08:27→21:08)
[2016-06-30] MEDS: EUCERIN CREAM 120 GM JAR TOPICAL SCH ×2 (08:27→21:09)
[2016-06-30] MEDS: CARVEDILOL 12.5 MG TAB PO SCH ×2 (08:27→21:08)
--- NOTE | 2016-06-30 09:16 | HHI.PR ---
Subjective Remarks Patient seen and examined today. Patient denies any new complaints. Denies any recurrent abdominal pain. Objective Vitals Vital Signs Date Time Temp Pulse Resp B/P Pulse Ox O2 Delivery O2 Flow Rate FiO2 06/29/16 20:00 98.7 87 18 151/98 98 06/29/16 09:36 97.9 82 18 140/80 97 I/O 06/29/16 06/29/16 06/29/16 06/30/16 06/30/16 06/30/16 07:00 15:00 23:00 07:00 15:00 23:00 Intake Total 120 ml 270 ml 200 ml 75 ml Output Total 1000 ml 700 ml 450 ml Balance -880 ml -430 ml -250 ml 75 ml Intake Oral 120 ml 150 ml 200 ml 75 ml IV Total 120 ml Output Urine Total 1000 ml 700 ml 450 ml # Voids 1 2 # Bowel Movements 0 1 0 Result Diagram: 06/29/16 0710 06/29/16 0710 Objective Remarks GENERAL: Well-developed, well-nourished, in no acute distress. Alert and orientated to person HEENT: Head is normocephalic without any lesions or masses noted. Facial features are symmetric. Extraocular muscles are intact. Conjunctivae were clear. NECK: Trachea midline no deviation. CARDIAC: Regular rhythm, regular rate. S1/S2 are heard. No murmurs gallops or rubs. LUNGS: Clear to auscultation bilaterally. No wheeze, rhonchi or rales. No use of accessory muscles on inspiration or expiration. ABDOMEN: Soft, tenderness noted right upper quadrant. Positive rebound. Nondistended. Bowel sounds heard in all 4 quadrants. No organomegaly or masses. Cholecystotomy drain noted with yellow/orange fluid EXTREMITIES: No edema, pulses are equal bilaterally. No cyanosis or clubbing. Right below--knee amputation. NEUROLOGY: Mood and affect appear appropriate. Cranial nerves II through XII grossly intact. Moving all extremities, speech is clear Procedures None Urinary Catheter: No Vascular Central Line Catheter: No A/P Assessment and Plan 60-year-old male with admitted 10/14 with acute cortical infarct. Patient remains with significant cognitive deficit. Acute anemia, improved after transfusion Status post 2 units packed red blood cells. Hemoccult was negative GI was consulted who recommended the patient undergo endoscopy electively. Patient does have guardianship issues and unable to obtain consent to this time. Continue monitor hemoglobin, if continues to drop may need to reconsult GI. Sepsis, resolved. Patient initially had leukocytosis, low-grade fever. Infectious source was suspected to be cholecystitis after patient pulled his drain out. Leukocytosis has resolved Blood cultures are negative Chest x-ray was performed which did not indicate any abnormality Change to Cipro/Flagyl by mouth for another 10 days, until 07/09/16 Abdominal pain, right upper quadrant, resolved CT the abdomen shows gallstones with distended gallbladder Abdominal ultrasound indicates gallstones HIDA scan shows signs of acute cholecystitis Consulted general surgery who is following the patient Surgery recommended placement cholecystotomy drain Interventional radiology successfully placed cholecystotomy drain. However, patient removed the drain himself. And drain was not replaced. Bilateral cerebrovascular accident, with Intermittent and persistent cognitive defect -MRI showed acute cortical infarct of the right cerebral peduncle to the pelvis , left thalamus punctate area of infarct -Neurology last seen patient on 11/13/15, recommended long-term anticoagulation -Continue with Statin. -Continue Coumadin daily and monitor INR/PT keep INR between 2 and 3, pharmacy consult for dosing. INR 1.3, -Reconsulted PT/OT, patient will require intermittent therapy while he remains in the hospital so he does not decompensate -Out of bed with nursing only. Patient was counseled to not get out of bed on his own. Fall risk due to cognitive deficit -Psychiatry reconsulted 02/17 for evaluation and appreciate recommendations on patient's cognition, agitation -Seroquel 100 mg daily and 150 mg at bedtime Urinary tract infection, resolved Patient asymptomatic, no fever, leukocytosis, signs of infection Urine culture indicates enterococcus faecalis which is resistant to Cipro Macrobid 100 mg twice daily for 10 days Hypertension: Blood pressure labile Amlodipine 10 mg daily carvedilol 25 bid, Imdur 60 daily Ischemic Cardiomyopathy/chronic systolic CHF LVEF 35% on echo 03/2015. Denies shortness of breath. Compensated. -Continue Coreg, Imdur, enalapril. -Could consider AICD if patient is able to consent, however patient is currently unable to consent -Fluid and sodium restrictions, follow volume status. Chronic kidney disease stage 3/4. Stable -Patient with intermittent worsening due to poor by mouth intake -Avoid nephrotoxins. -Monitor BMP intermittently -Discontinue DIALLO inhibitor due to hyperkalemia Seborrhea dermatitis Status post hydrocortisone cream for 2 weeks Encourage proper hygiene Diabetic mellitus - Glucose was well controlled. All insulin discontinued. -accu-checks discontinued as patient's blood sugar well controlled and Hgb A1c 6.9. -continue diet control Peripheral arterial disease-stable. -Continue anticoagulation Constipation, patient having bowel movement every 2-3 days -Abdominal x-ray 02/16 indicates moderate amount of stool in the colon on the left side. -Milk of magnesia as needed. -MiraLAX, lactulose, Haydee-Colace daily, lactulose, MiraLAX -Dulcolax as needed DVT prophylaxis - patient on Coumadin Discharge Planning Discharge planning per case management, most recent documentation from 06/26 indicates patient has no guardian to obtain consent for procedures. Documentation from 06/14 indicates that they're following up with Aging and Update on Guardianship. Truman Fulton Jun 30, 2016 09:16
[2016-06-30 20:00] VITALS: BP 150/92; PULSE 82; RESP 18; TEMP 98.9; O2SAT 96
[2016-06-30] MEDS: ISOSORBIDE MONONITRATE 60 MG TAB PO SCH (21:08)
[2016-06-30] MEDS: WARFARIN SOD 5 MG TAB PO SCH (21:08)
[2016-07-01] MEDS: metroNIDAZOLE 500 MG TAB PO SCH ×3 (05:41→20:54)
[2016-07-01 06:33] LABS: AUTOMATED NEUTROPHIL # 7.5 TH/MM3 (1.8-7.7); BASOPHIL % 0.3 % (0.0-2.0); EOSINOPHIL # 0.5 TH/MM3 (0-0.4); EOSINOPHIL % 5.1 % (0.0-4.0); HEMATOCRIT 23.6 % (39.0-51.0); HEMO FLAGS DIFF FINAL; LYMPHOCYTE # 1.4 TH/MM3 (1.0-4.8); MEAN CELL VOLUME 82.4 FL (80.0-100.0); MEAN CORPUSCULAR HEMOGLOBIN 27.1 PG (27.0-34.0); MEAN CORPUSCULAR HGB CONC 32.9 % (32.0-36.0); MONO % 7.4 % (0.0-8.0); NEUT % 73.2 % (16.0-70.0); PLATELET COUNT 263 TH/MM3 (150-450); RED BLOOD COUNT 2.87 MIL/MM3 (4.50-5.90); RED CELL DISTRIBUTION WIDTH 14.6 % (11.6-17.2); WHITE BLOOD COUNT 10.1 TH/MM3 (4.0-11.0)
[2016-07-01 06:40] LABS: POTASSIUM 4.4 MEQ/L (3.5-5.1)
[2016-07-01 06:41] LABS: INTERNATIONAL NORMALIZED RATIO 1.4 RATIO; PROTHROMBIN TIME - PATIENT 15.6 SEC (9.8-11.6)
[2016-07-01 06:43] LABS: BICARBONATE 24.8 MEQ/L (21.0-32.0); MAGNESIUM 1.6 MG/DL (1.5-2.5)
[2016-07-01 08:00] VITALS: BP 120/84; PULSE 76; RESP 18; TEMP 97.7; O2SAT 96
[2016-07-01] MEDS: NITROFURANTOIN MONOHYD MACROCR 100 MG CAP PO SCH ×4 (09:00→17:44)
[2016-07-01] MEDS: EUCERIN CREAM 120 GM JAR TOPICAL SCH ×2 (09:00→20:54)
[2016-07-01] MEDS: POLYETHYLENE GLYCOL 17 GM PKG PO SCH (09:37)
[2016-07-01] MEDS: QUEtiapine FUMARATE 100 MG TAB PO SCH ×2 (09:37→20:53)
[2016-07-01] MEDS: LACTULOSE SYRUP 20 GM/30 ML CUP PO SCH (09:37)
[2016-07-01] MEDS: CIPROFLOXACIN 500 MG TAB PO SCH ×2 (09:37→20:53)
[2016-07-01] MEDS: PANTOPRAZOLE SOD 40 MG DELAYED RELEASE TAB PO SCH ×2 (09:37→20:53)
[2016-07-01] MEDS: FERROUS SULFATE 325 MG (65 MG ELEMENTAL IRON) TAB PO SCH (09:37)
[2016-07-01] MEDS: ATORVASTATIN 40 MG TAB PO SCH (09:38)
[2016-07-01] MEDS: DOCUSATE SODIUM 50 MG/SENNA 8.6 MG TAB PO SCH ×2 (09:38→20:54)
[2016-07-01] MEDS: CARVEDILOL 12.5 MG TAB PO SCH ×2 (09:38→20:53)
--- NOTE | 2016-07-01 10:13 | HHI.PR ---
Subjective Remarks Patient seen and examined today. Patient denies any new complaint. No change in clinical status. Patient denies any recurrent abdominal pain Objective Vitals Vital Signs Date Time Temp Pulse Resp B/P Pulse Ox O2 Delivery O2 Flow Rate FiO2 07/01/16 08:00 97.7 76 18 120/84 96 06/30/16 20:00 98.9 82 18 150/92 96 I/O 06/30/16 06/30/16 06/30/16 07/01/16 07/01/16 07/01/16 07:00 15:00 23:00 07:00 15:00 23:00 Intake Total 75 ml 240 ml Output Total 1000 ml 250 ml Balance 75 ml -760 ml -250 ml Intake Oral 75 ml 240 ml Output Urine Total 1000 ml 250 ml # Voids 2 # Bowel Movements 0 0 0 Result Diagram: 07/01/16 0540 07/01/16 0540 Objective Remarks GENERAL: Well-developed, well-nourished, in no acute distress. Alert and orientated to person HEENT: Head is normocephalic without any lesions or masses noted. Facial features are symmetric. Extraocular muscles are intact. Conjunctivae were clear. NECK: Trachea midline no deviation. CARDIAC: Regular rhythm, regular rate. S1/S2 are heard. No murmurs gallops or rubs. LUNGS: Clear to auscultation bilaterally. No wheeze, rhonchi or rales. No use of accessory muscles on inspiration or expiration. ABDOMEN: Soft, tenderness noted right upper quadrant. Positive rebound. Nondistended. Bowel sounds heard in all 4 quadrants. No organomegaly or masses. Cholecystotomy drain noted with yellow/orange fluid EXTREMITIES: No edema, pulses are equal bilaterally. No cyanosis or clubbing. Right below--knee amputation. NEUROLOGY: Mood and affect appear appropriate. Cranial nerves II through XII grossly intact. Moving all extremities, speech is clear Procedures None Urinary Catheter: No Vascular Central Line Catheter: No A/P Assessment and Plan 60-year-old male with admitted 10/14 with acute cortical infarct. Patient remains with significant cognitive deficit. Acute anemia, improved after transfusion stable Status post 2 units packed red blood cells. Hemoccult was negative GI was consulted who recommended the patient undergo endoscopy electively. Patient does have guardianship issues and unable to obtain consent to this time. Continue monitor hemoglobin, hemoglobin has been stable Sepsis, resolved. Patient initially had leukocytosis, low-grade fever. Infectious source was suspected to be cholecystitis after patient pulled his drain out. Leukocytosis has resolved Blood cultures are negative Chest x-ray was performed which did not indicate any abnormality Change to Cipro/Flagyl by mouth for another 10 days, until 07/09/16 Abdominal pain, right upper quadrant, resolved CT the abdomen shows gallstones with distended gallbladder Abdominal ultrasound indicates gallstones HIDA scan shows signs of acute cholecystitis Consulted general surgery who is following the patient Surgery recommended placement cholecystotomy drain Interventional radiology successfully placed cholecystotomy drain. However, patient removed the drain himself. And drain was not replaced. Bilateral cerebrovascular accident, with Intermittent and persistent cognitive defect -MRI showed acute cortical infarct of the right cerebral peduncle to the pelvis , left thalamus punctate area of infarct -Neurology last seen patient on 11/13/15, recommended long-term anticoagulation -Continue with Statin. -Continue Coumadin daily and monitor INR/PT keep INR between 2 and 3, pharmacy consult for dosing. INR 1.4, -Reconsulted PT/OT, patient will require intermittent therapy while he remains in the hospital so he does not decompensate -Out of bed with nursing only. Patient was counseled to not get out of bed on his own. Fall risk due to cognitive deficit -Psychiatry reconsulted 02/17 for evaluation and appreciate recommendations on patient's cognition, agitation -Seroquel 100 mg daily and 150 mg at bedtime Urinary tract infection, resolved Patient asymptomatic, no fever, leukocytosis, signs of infection Urine culture indicates enterococcus faecalis which is resistant to Cipro Macrobid 100 mg twice daily for 10 days Hypertension: Blood pressure labile Amlodipine 10 mg daily carvedilol 25 bid, Imdur 60 daily Ischemic Cardiomyopathy/chronic systolic CHF LVEF 35% on echo 03/2015. Denies shortness of breath. Compensated. -Continue Coreg, Imdur, enalapril. -Could consider AICD if patient is able to consent, however patient is currently unable to consent -Fluid and sodium restrictions, follow volume status. Chronic kidney disease stage 3/4. Stable -Patient with intermittent worsening due to poor by mouth intake -Avoid nephrotoxins. -Monitor BMP intermittently -Discontinue DIALLO inhibitor due to hyperkalemia Seborrhea dermatitis Status post hydrocortisone cream for 2 weeks Encourage proper hygiene Diabetic mellitus - Glucose was well controlled. All insulin discontinued. -accu-checks discontinued as patient's blood sugar well controlled and Hgb A1c 6.9. -continue diet control Peripheral arterial disease-stable. -Continue anticoagulation Constipation, patient having bowel movement every 2-3 days -Abdominal x-ray 02/16 indicates moderate amount of stool in the colon on the left side. -Milk of magnesia as needed. -MiraLAX, lactulose, Haydee-Colace daily, lactulose, MiraLAX -Dulcolax as needed DVT prophylaxis - patient on Coumadin Discharge Planning Discharge planning per case management, most recent documentation from 06/26 indicates patient has no guardian to obtain consent for procedures. Documentation from 06/14 indicates that they're following up with Aging and Update on Guardianship. Truman Fulton Jul 01, 2016 10:13
[2016-07-01 20:27] VITALS: BP 111/77; PULSE 88; RESP 12; TEMP 97.7; O2SAT 97
[2016-07-01] MEDS: WARFARIN SOD 5 MG TAB PO SCH (20:53)
[2016-07-01] MEDS: ISOSORBIDE MONONITRATE 60 MG TAB PO SCH (20:54)
[2016-07-01] MEDS ORDERED: WARFARIN SOD 2.5 MG TAB PO ONE (21:00)
[2016-07-02] MEDS: metroNIDAZOLE 500 MG TAB PO SCH ×3 (05:39→22:12)
[2016-07-02 07:21] LABS: INTERNATIONAL NORMALIZED RATIO 1.6 RATIO; PROTHROMBIN TIME - PATIENT 18.6 SEC (9.8-11.6)
[2016-07-02 08:00] VITALS: BP 137/94; PULSE 84; RESP 17; TEMP 98.1; O2SAT 96
[2016-07-02] MEDS: EUCERIN CREAM 120 GM JAR TOPICAL SCH ×2 (09:00→20:34)
[2016-07-02] MEDS: NITROFURANTOIN MONOHYD MACROCR 100 MG CAP PO SCH ×2 (09:05→17:49)
[2016-07-02] MEDS: FERROUS SULFATE 325 MG (65 MG ELEMENTAL IRON) TAB PO SCH (09:05)
[2016-07-02] MEDS: QUEtiapine FUMARATE 100 MG TAB PO SCH ×2 (09:05→20:32)
[2016-07-02] MEDS: CIPROFLOXACIN 500 MG TAB PO SCH ×2 (09:05→20:32)
[2016-07-02] MEDS: DOCUSATE SODIUM 50 MG/SENNA 8.6 MG TAB PO SCH ×2 (09:06→20:33)
[2016-07-02] MEDS: ATORVASTATIN 40 MG TAB PO SCH (09:06)
[2016-07-02] MEDS: PANTOPRAZOLE SOD 40 MG DELAYED RELEASE TAB PO SCH ×2 (09:06→20:33)
[2016-07-02] MEDS: POLYETHYLENE GLYCOL 17 GM PKG PO SCH (09:06)
[2016-07-02] MEDS: CARVEDILOL 12.5 MG TAB PO SCH ×2 (09:06→20:33)
[2016-07-02] MEDS: LACTULOSE SYRUP 20 GM/30 ML CUP PO SCH (09:06)
--- NOTE | 2016-07-02 14:43 | HHI.PR ---
Subjective Remarks Patient seen and examined today. Patient denies any new complaints. Patient denies any recurrent abdominal pain Objective Vitals Vital Signs Date Time Temp Pulse Resp B/P Pulse Ox O2 Delivery O2 Flow Rate FiO2 07/02/16 08:00 98.1 84 17 137/94 96 07/01/16 20:27 97.7 88 12 111/77 97 I/O 07/01/16 07/01/16 07/01/16 07/02/16 07/02/16 07/02/16 07:00 15:00 23:00 07:00 15:00 23:00 Intake Total 360 ml Output Total 250 ml 775 ml 200 ml 500 ml 450 ml Balance -250 ml -415 ml -200 ml -500 ml -450 ml Intake Oral 360 ml Output Urine Total 250 ml 775 ml 200 ml 500 ml 450 ml # Bowel Movements 0 Result Diagram: 07/01/16 0540 07/01/16 0540 Objective Remarks GENERAL: Well-developed, well-nourished, in no acute distress. Alert and orientated to person HEENT: Head is normocephalic without any lesions or masses noted. Facial features are symmetric. Extraocular muscles are intact. Conjunctivae were clear. NECK: Trachea midline no deviation. CARDIAC: Regular rhythm, regular rate. S1/S2 are heard. No murmurs gallops or rubs. LUNGS: Clear to auscultation bilaterally. No wheeze, rhonchi or rales. No use of accessory muscles on inspiration or expiration. ABDOMEN: Soft, tenderness noted right upper quadrant. Positive rebound. Nondistended. Bowel sounds heard in all 4 quadrants. No organomegaly or masses. Cholecystotomy drain noted with yellow/orange fluid EXTREMITIES: No edema, pulses are equal bilaterally. No cyanosis or clubbing. Right below--knee amputation. NEUROLOGY: Mood and affect appear appropriate. Cranial nerves II through XII grossly intact. Moving all extremities, speech is clear Procedures None Urinary Catheter: No Vascular Central Line Catheter: No A/P Assessment and Plan 60-year-old male with admitted 10/14 with acute cortical infarct. Patient remains with significant cognitive deficit. Acute anemia, improved after transfusion stable Status post 2 units packed red blood cells. Hemoccult was negative GI was consulted who recommended the patient undergo endoscopy electively. Patient does have guardianship issues and unable to obtain consent to this time. Continue monitor hemoglobin, hemoglobin has been stable Sepsis, resolved. Patient initially had leukocytosis, low-grade fever. Infectious source was suspected to be cholecystitis after patient pulled his drain out. Leukocytosis has resolved Blood cultures are negative Chest x-ray was performed which did not indicate any abnormality Change to Cipro/Flagyl by mouth for another 10 days, until 07/09/16 Abdominal pain, right upper quadrant, resolved CT the abdomen shows gallstones with distended gallbladder Abdominal ultrasound indicates gallstones HIDA scan shows signs of acute cholecystitis Consulted general surgery who is following the patient Surgery recommended placement cholecystotomy drain Interventional radiology successfully placed cholecystotomy drain. However, patient removed the drain himself. And drain was not replaced. Bilateral cerebrovascular accident, with Intermittent and persistent cognitive defect -MRI showed acute cortical infarct of the right cerebral peduncle to the pelvis , left thalamus punctate area of infarct -Neurology last seen patient on 11/13/15, recommended long-term anticoagulation -Continue with Statin. -Continue Coumadin daily and monitor INR/PT keep INR between 2 and 3, pharmacy consult for dosing. INR 1.6, -Reconsulted PT/OT, patient will require intermittent therapy while he remains in the hospital so he does not decompensate -Out of bed with nursing only. Patient was counseled to not get out of bed on his own. Fall risk due to cognitive deficit -Psychiatry reconsulted 02/17 for evaluation and appreciate recommendations on patient's cognition, agitation -Seroquel 100 mg daily and 150 mg at bedtime Urinary tract infection, resolved Patient asymptomatic, no fever, leukocytosis, signs of infection Urine culture indicates enterococcus faecalis which is resistant to Cipro Macrobid 100 mg twice daily for 10 days Hypertension: Blood pressure labile Amlodipine 10 mg daily carvedilol 25 bid, Imdur 60 daily Ischemic Cardiomyopathy/chronic systolic CHF LVEF 35% on echo 03/2015. Denies shortness of breath. Compensated. -Continue Coreg, Imdur, enalapril. -Could consider AICD if patient is able to consent, however patient is currently unable to consent -Fluid and sodium restrictions, follow volume status. Chronic kidney disease stage 3/4. Stable -Patient with intermittent worsening due to poor by mouth intake -Avoid nephrotoxins. -Monitor BMP intermittently -Discontinue DIALLO inhibitor due to hyperkalemia Seborrhea dermatitis Status post hydrocortisone cream for 2 weeks Encourage proper hygiene Diabetic mellitus - Glucose was well controlled. All insulin discontinued. -accu-checks discontinued as patient's blood sugar well controlled and Hgb A1c 6.9. -continue diet control Peripheral arterial disease-stable. -Continue anticoagulation Constipation, patient having bowel movement every 2-3 days -Abdominal x-ray 02/16 indicates moderate amount of stool in the colon on the left side. -Milk of magnesia as needed. -MiraLAX, lactulose, Haydee-Colace daily, lactulose, MiraLAX -Dulcolax as needed DVT prophylaxis - patient on Coumadin Discharge Planning Discharge planning per case management, most recent documentation from 06/26 indicates patient has no guardian to obtain consent for procedures. Documentation from 06/14 indicates that they're following up with Aging and Update on Guardianship. Truman Fulton Jul 02, 2016 14:43
[2016-07-02 20:00] VITALS: BP 125/91; PULSE 82; RESP 22; TEMP 98.9; O2SAT 96
[2016-07-02] MEDS: ISOSORBIDE MONONITRATE 60 MG TAB PO SCH (20:32)
[2016-07-02] MEDS: WARFARIN SOD 5 MG TAB PO SCH (20:33)
[2016-07-03] MEDS: metroNIDAZOLE 500 MG TAB PO SCH ×3 (05:29→20:54)
[2016-07-03 07:24] LABS: INTERNATIONAL NORMALIZED RATIO 1.7 RATIO; PROTHROMBIN TIME - PATIENT 19.7 SEC (9.8-11.6)
[2016-07-03 08:00] VITALS: BP 126/90; PULSE 78; RESP 16; TEMP 97.6; O2SAT 98
[2016-07-03] MEDS: QUEtiapine FUMARATE 100 MG TAB PO SCH ×2 (09:28→20:54)
[2016-07-03] MEDS: CARVEDILOL 12.5 MG TAB PO SCH ×2 (09:28→21:37)
[2016-07-03] MEDS: FERROUS SULFATE 325 MG (65 MG ELEMENTAL IRON) TAB PO SCH (09:28)
[2016-07-03] MEDS: NITROFURANTOIN MONOHYD MACROCR 100 MG CAP PO SCH ×2 (09:28→17:26)
[2016-07-03] MEDS: CIPROFLOXACIN 500 MG TAB PO SCH ×2 (09:28→20:54)
[2016-07-03] MEDS: PANTOPRAZOLE SOD 40 MG DELAYED RELEASE TAB PO SCH ×2 (09:28→20:54)
[2016-07-03] MEDS: ATORVASTATIN 40 MG TAB PO SCH (09:28)
[2016-07-03] MEDS: POLYETHYLENE GLYCOL 17 GM PKG PO SCH (09:28)
[2016-07-03] MEDS: DOCUSATE SODIUM 50 MG/SENNA 8.6 MG TAB PO SCH ×2 (09:29→20:53)
[2016-07-03] MEDS: LACTULOSE SYRUP 20 GM/30 ML CUP PO SCH (09:29)
[2016-07-03] MEDS: EUCERIN CREAM 120 GM JAR TOPICAL SCH ×2 (09:30→20:56)
--- NOTE | 2016-07-03 11:19 | HHI.PR ---
Subjective Remarks Patient seen and examined today. Patient denies any new complaints. No change in clinical status. Objective Vitals Vital Signs Date Time Temp Pulse Resp B/P Pulse Ox O2 Delivery O2 Flow Rate FiO2 07/03/16 08:00 97.6 78 16 126/90 98 07/02/16 20:00 98.9 82 22 125/91 96 I/O 07/02/16 07/02/16 07/02/16 07/03/16 07/03/16 07/03/16 07:00 15:00 23:00 07:00 15:00 23:00 Intake Total 320 ml 120 ml 120 ml Output Total 500 ml 450 ml 300 ml 325 ml Balance -500 ml -130 ml -180 ml -205 ml Intake Oral 320 ml 120 ml Oral Supplement 120 ml Output Urine Total 500 ml 450 ml 300 ml 325 ml # Bowel Movements 0 0 Result Diagram: 07/01/16 0540 07/01/16 0540 Objective Remarks GENERAL: Well-developed, well-nourished, in no acute distress. Alert and orientated to person HEENT: Head is normocephalic without any lesions or masses noted. Facial features are symmetric. Extraocular muscles are intact. Conjunctivae were clear. NECK: Trachea midline no deviation. CARDIAC: Regular rhythm, regular rate. S1/S2 are heard. No murmurs gallops or rubs. LUNGS: Clear to auscultation bilaterally. No wheeze, rhonchi or rales. No use of accessory muscles on inspiration or expiration. ABDOMEN: Soft, tenderness noted right upper quadrant. Positive rebound. Nondistended. Bowel sounds heard in all 4 quadrants. No organomegaly or masses. Cholecystotomy drain noted with yellow/orange fluid EXTREMITIES: No edema, pulses are equal bilaterally. No cyanosis or clubbing. Right below--knee amputation. NEUROLOGY: Mood and affect appear appropriate. Cranial nerves II through XII grossly intact. Moving all extremities, speech is clear Procedures None Urinary Catheter: No Vascular Central Line Catheter: No A/P Assessment and Plan 60-year-old male with admitted 10/14 with acute cortical infarct. Patient remains with significant cognitive deficit. Acute anemia, improved after transfusion stable Status post 2 units packed red blood cells. Hemoccult was negative GI was consulted who recommended the patient undergo endoscopy electively. Patient does have guardianship issues and unable to obtain consent to this time. Continue monitor hemoglobin, hemoglobin has been stable Sepsis, resolved. Patient initially had leukocytosis, low-grade fever. Infectious source was suspected to be cholecystitis after patient pulled his drain out. Leukocytosis has resolved Blood cultures are negative Chest x-ray was performed which did not indicate any abnormality Change to Cipro/Flagyl by mouth for another 10 days, until 07/09/16 Abdominal pain, right upper quadrant, resolved CT the abdomen shows gallstones with distended gallbladder Abdominal ultrasound indicates gallstones HIDA scan shows signs of acute cholecystitis Consulted general surgery who is following the patient Surgery recommended placement cholecystotomy drain Interventional radiology successfully placed cholecystotomy drain. However, patient removed the drain himself. And drain was not replaced. Bilateral cerebrovascular accident, with Intermittent and persistent cognitive defect -MRI showed acute cortical infarct of the right cerebral peduncle to the pelvis , left thalamus punctate area of infarct -Neurology last seen patient on 11/13/15, recommended long-term anticoagulation -Continue with Statin. -Continue Coumadin daily and monitor INR/PT keep INR between 2 and 3, pharmacy consult for dosing. INR 1.7, -Reconsulted PT/OT, patient will require intermittent therapy while he remains in the hospital so he does not decompensate -Out of bed with nursing only. Patient was counseled to not get out of bed on his own. Fall risk due to cognitive deficit -Psychiatry reconsulted 02/17 for evaluation and appreciate recommendations on patient's cognition, agitation -Seroquel 100 mg daily and 150 mg at bedtime Urinary tract infection, resolved Patient asymptomatic, no fever, leukocytosis, signs of infection Urine culture indicates enterococcus faecalis which is resistant to Cipro Macrobid 100 mg twice daily for 10 days Hypertension: Blood pressure labile Amlodipine 10 mg daily carvedilol 25 bid, Imdur 60 daily Ischemic Cardiomyopathy/chronic systolic CHF LVEF 35% on echo 03/2015. Denies shortness of breath. Compensated. -Continue Coreg, Imdur, enalapril. -Could consider AICD if patient is able to consent, however patient is currently unable to consent -Fluid and sodium restrictions, follow volume status. Chronic kidney disease stage 3/4. Stable -Patient with intermittent worsening due to poor by mouth intake -Avoid nephrotoxins. -Monitor BMP intermittently -Discontinue DIALLO inhibitor due to hyperkalemia Seborrhea dermatitis Status post hydrocortisone cream for 2 weeks Encourage proper hygiene Diabetic mellitus - Glucose was well controlled. All insulin discontinued. -accu-checks discontinued as patient's blood sugar well controlled and Hgb A1c 6.9. -continue diet control Peripheral arterial disease-stable. -Continue anticoagulation Constipation, patient having bowel movement every 2-3 days -Abdominal x-ray 02/16 indicates moderate amount of stool in the colon on the left side. -Milk of magnesia as needed. -MiraLAX, lactulose, Haydee-Colace daily, lactulose, MiraLAX -Dulcolax as needed DVT prophylaxis - patient on Coumadin No change in present treatment plan Discharge Planning Discharge planning per case management, most recent documentation from 06/26 indicates patient has no guardian to obtain consent for procedures. Documentation from 06/14 indicates that they're following up with Aging and Update on Guardianship. Truman Fulton Jul 03, 2016 11:19
[2016-07-03] MEDS: ISOSORBIDE MONONITRATE 60 MG TAB PO SCH (20:55)
[2016-07-03] MEDS: WARFARIN SOD 5 MG TAB PO SCH (20:55)
[2016-07-03] MEDS ORDERED: WARFARIN SOD 2.5 MG TAB PO ONE (21:00)
[2016-07-04] MEDS: metroNIDAZOLE 500 MG TAB PO SCH ×3 (05:24→22:03)
[2016-07-04 08:00] VITALS: BP 124/85; PULSE 77; RESP 16; TEMP 96.3; O2SAT 94
[2016-07-04 08:48] LABS: INTERNATIONAL NORMALIZED RATIO 2.4 RATIO; PROTHROMBIN TIME - PATIENT 27.2 SEC (9.8-11.6)
[2016-07-04] MEDS: EUCERIN CREAM 120 GM JAR TOPICAL SCH ×2 (09:00→22:03)
[2016-07-04] MEDS: QUEtiapine FUMARATE 100 MG TAB PO SCH ×2 (09:11→22:03)
[2016-07-04] MEDS: CIPROFLOXACIN 500 MG TAB PO SCH ×2 (09:11→22:03)
[2016-07-04] MEDS: DOCUSATE SODIUM 50 MG/SENNA 8.6 MG TAB PO SCH ×2 (09:11→22:03)
[2016-07-04] MEDS: LACTULOSE SYRUP 20 GM/30 ML CUP PO SCH (09:11)
[2016-07-04] MEDS: POLYETHYLENE GLYCOL 17 GM PKG PO SCH (09:11)
[2016-07-04] MEDS: CARVEDILOL 12.5 MG TAB PO SCH ×2 (09:12→22:03)
[2016-07-04] MEDS: NITROFURANTOIN MONOHYD MACROCR 100 MG CAP PO SCH ×2 (09:12→18:05)
[2016-07-04] MEDS: ATORVASTATIN 40 MG TAB PO SCH (09:12)
--- NOTE | 2016-07-04 10:01 | HHI.PR ---
Subjective Remarks Patient seen and examined today. Patient denies any new complaints no recurrent abdominal pain. No change in clinical status. Objective Vitals I/O 07/03/16 07/03/16 07/03/16 07/04/16 07/04/16 07/04/16 07:00 15:00 23:00 07:00 15:00 23:00 Intake Total 120 ml 600 ml 120 ml Output Total 325 ml 200 ml 25 ml 250 ml Balance -205 ml 400 ml -25 ml -130 ml Intake Oral 360 ml 120 ml Oral Supplement 120 ml Other 240 ml Output Urine Total 325 ml 200 ml 25 ml 250 ml # Bowel Movements 0 0 0 0 Result Diagram: 07/01/16 0540 07/01/16 0540 Objective Remarks GENERAL: Well-developed, well-nourished, in no acute distress. Alert and orientated to person HEENT: Head is normocephalic without any lesions or masses noted. Facial features are symmetric. Extraocular muscles are intact. Conjunctivae were clear. NECK: Trachea midline no deviation. CARDIAC: Regular rhythm, regular rate. S1/S2 are heard. No murmurs gallops or rubs. LUNGS: Clear to auscultation bilaterally. No wheeze, rhonchi or rales. No use of accessory muscles on inspiration or expiration. ABDOMEN: Soft, tenderness noted right upper quadrant. Positive rebound. Nondistended. Bowel sounds heard in all 4 quadrants. No organomegaly or masses. Cholecystotomy drain noted with yellow/orange fluid EXTREMITIES: No edema, pulses are equal bilaterally. No cyanosis or clubbing. Right below--knee amputation. NEUROLOGY: Mood and affect appear appropriate. Cranial nerves II through XII grossly intact. Moving all extremities, speech is clear Procedures None Urinary Catheter: No Vascular Central Line Catheter: No A/P Assessment and Plan 60-year-old male with admitted 10/14 with acute cortical infarct. Patient remains with significant cognitive deficit. Acute anemia, improved after transfusion stable Status post 2 units packed red blood cells. Hemoccult was negative GI was consulted who recommended the patient undergo endoscopy electively. Patient does have guardianship issues and unable to obtain consent to this time. Continue monitor hemoglobin, hemoglobin has been stable Sepsis, resolved. Patient initially had leukocytosis, low-grade fever. Infectious source was suspected to be cholecystitis after patient pulled his drain out. Leukocytosis has resolved Blood cultures are negative Chest x-ray was performed which did not indicate any abnormality Change to Cipro/Flagyl by mouth for another 10 days, until 07/09/16 Abdominal pain, right upper quadrant, resolved CT the abdomen shows gallstones with distended gallbladder Abdominal ultrasound indicates gallstones HIDA scan shows signs of acute cholecystitis Consulted general surgery who is following the patient Surgery recommended placement cholecystotomy drain Interventional radiology successfully placed cholecystotomy drain. However, patient removed the drain himself. And drain was not replaced. Bilateral cerebrovascular accident, with Intermittent and persistent cognitive defect -MRI showed acute cortical infarct of the right cerebral peduncle to the pelvis , left thalamus punctate area of infarct -Neurology last seen patient on 11/13/15, recommended long-term anticoagulation -Continue with Statin. -Continue Coumadin daily and monitor INR/PT keep INR between 2 and 3, pharmacy consult for dosing. INR 2.4, -Reconsulted PT/OT, patient will require intermittent therapy while he remains in the hospital so he does not decompensate -Out of bed with nursing only. Patient was counseled to not get out of bed on his own. Fall risk due to cognitive deficit -Psychiatry reconsulted 02/17 for evaluation and appreciate recommendations on patient's cognition, agitation -Seroquel 100 mg daily and 150 mg at bedtime Urinary tract infection, resolved Patient asymptomatic, no fever, leukocytosis, signs of infection Urine culture indicates enterococcus faecalis which is resistant to Cipro Macrobid 100 mg twice daily for 10 days Hypertension: Blood pressure labile Amlodipine 10 mg daily carvedilol 25 bid, Imdur 60 daily Ischemic Cardiomyopathy/chronic systolic CHF LVEF 35% on echo 03/2015. Denies shortness of breath. Compensated. -Continue Coreg, Imdur, enalapril. -Could consider AICD if patient is able to consent, however patient is currently unable to consent -Fluid and sodium restrictions, follow volume status. Chronic kidney disease stage 3/4. Stable -Patient with intermittent worsening due to poor by mouth intake -Avoid nephrotoxins. -Monitor BMP intermittently -Discontinue DIALLO inhibitor due to hyperkalemia Seborrhea dermatitis Status post hydrocortisone cream for 2 weeks Encourage proper hygiene Diabetic mellitus - Glucose was well controlled. All insulin discontinued. -accu-checks discontinued as patient's blood sugar well controlled and Hgb A1c 6.9. -continue diet control Peripheral arterial disease-stable. -Continue anticoagulation Constipation, patient having bowel movement every 2-3 days -Abdominal x-ray 02/16 indicates moderate amount of stool in the colon on the left side. -Milk of magnesia as needed. -MiraLAX, lactulose, Haydee-Colace daily, lactulose, MiraLAX -Dulcolax as needed DVT prophylaxis - patient on Coumadin No change in present treatment plan Discharge Planning Discharge planning per case management, most recent documentation from 06/26 indicates patient has no guardian to obtain consent for procedures. Documentation from 06/14 indicates that they're following up with Aging and Update on Guardianship. Truman Fulton Jul 04, 2016 10:01
[2016-07-04] MEDS: FERROUS SULFATE 325 MG (65 MG ELEMENTAL IRON) TAB PO SCH (12:32)
[2016-07-04] MEDS: PANTOPRAZOLE SOD 40 MG DELAYED RELEASE TAB PO SCH ×2 (12:32→22:02)
[2016-07-04 20:00] VITALS: BP 117/86; PULSE 75; RESP 18; TEMP 97.8; O2SAT 99
[2016-07-04] MEDS: WARFARIN SOD 5 MG TAB PO SCH (22:03)
[2016-07-04] MEDS: ISOSORBIDE MONONITRATE 60 MG TAB PO SCH (22:03)
[2016-07-05] MEDS: metroNIDAZOLE 500 MG TAB PO SCH ×3 (06:00→22:27)
[2016-07-05 07:47] LABS: AUTOMATED NEUTROPHIL # 6.6 TH/MM3 (1.8-7.7); BASOPHIL % 0.3 % (0.0-2.0); EOSINOPHIL # 0.5 TH/MM3 (0-0.4); EOSINOPHIL % 5.4 % (0.0-4.0); HEMATOCRIT 27.5 % (39.0-51.0); HEMO FLAGS DIFF FINAL; LYMPHOCYTE # 1.3 TH/MM3 (1.0-4.8); MEAN CELL VOLUME 81.4 FL (80.0-100.0); MEAN CORPUSCULAR HEMOGLOBIN 26.6 PG (27.0-34.0); MEAN CORPUSCULAR HGB CONC 32.7 % (32.0-36.0); NEUT % 73.3 % (16.0-70.0); PLATELET COUNT 294 TH/MM3 (150-450); RED BLOOD COUNT 3.38 MIL/MM3 (4.50-5.90); RED CELL DISTRIBUTION WIDTH 14.4 % (11.6-17.2)
[2016-07-05 08:00] VITALS: BP 152/103; PULSE 68; RESP 17; TEMP 97.6; O2SAT 97
[2016-07-05 08:02] LABS: INTERNATIONAL NORMALIZED RATIO 3.4 RATIO; PROTHROMBIN TIME - PATIENT 39.9 SEC (9.8-11.6)
[2016-07-05 08:14] LABS: POTASSIUM 4.3 MEQ/L (3.5-5.1)
[2016-07-05 08:16] LABS: BICARBONATE 28.1 MEQ/L (21.0-32.0)
[2016-07-05] MEDS: NITROFURANTOIN MONOHYD MACROCR 100 MG CAP PO SCH ×2 (08:50→15:05)
[2016-07-05] MEDS: PANTOPRAZOLE SOD 40 MG DELAYED RELEASE TAB PO SCH ×2 (08:50→21:18)
[2016-07-05] MEDS: QUEtiapine FUMARATE 100 MG TAB PO SCH ×2 (08:50→21:20)
[2016-07-05] MEDS: FERROUS SULFATE 325 MG (65 MG ELEMENTAL IRON) TAB PO SCH (08:50)
[2016-07-05] MEDS: POLYETHYLENE GLYCOL 17 GM PKG PO SCH (08:50)
[2016-07-05] MEDS: ATORVASTATIN 40 MG TAB PO SCH (08:50)
[2016-07-05] MEDS: CIPROFLOXACIN 500 MG TAB PO SCH ×2 (08:50→21:19)
[2016-07-05] MEDS: DOCUSATE SODIUM 50 MG/SENNA 8.6 MG TAB PO SCH ×2 (08:51→21:18)
[2016-07-05] MEDS: CARVEDILOL 12.5 MG TAB PO SCH ×2 (08:51→21:18)
[2016-07-05] MEDS: LACTULOSE SYRUP 20 GM/30 ML CUP PO SCH (08:51)
[2016-07-05] MEDS: EUCERIN CREAM 120 GM JAR TOPICAL SCH ×2 (09:00→21:22)
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
[2016-07-05 20:00] VITALS: BP 143/92; PULSE 82; RESP 18; TEMP 97.9; O2SAT 96
[2016-07-05] MEDS: ISOSORBIDE MONONITRATE 60 MG TAB PO SCH (21:21)
[2016-07-06] MEDS: metroNIDAZOLE 500 MG TAB PO SCH ×3 (05:11→21:07)
[2016-07-06 08:00] VITALS: BP 129/90; PULSE 76; RESP 18; TEMP 97; O2SAT 94
[2016-07-06 08:18] LABS: INTERNATIONAL NORMALIZED RATIO 3.2 RATIO; PROTHROMBIN TIME - PATIENT 37.7 SEC (9.8-11.6)
[2016-07-06] MEDS: EUCERIN CREAM 120 GM JAR TOPICAL SCH ×2 (09:00→21:07)
[2016-07-06] MEDS: POLYETHYLENE GLYCOL 17 GM PKG PO SCH (09:00)
[2016-07-06] MEDS: LACTULOSE SYRUP 20 GM/30 ML CUP PO SCH (09:00)
[2016-07-06] MEDS: CARVEDILOL 12.5 MG TAB PO SCH ×2 (09:41→21:08)
[2016-07-06] MEDS: CIPROFLOXACIN 500 MG TAB PO SCH ×2 (09:41→21:08)
[2016-07-06] MEDS: DOCUSATE SODIUM 50 MG/SENNA 8.6 MG TAB PO SCH ×2 (09:41→21:08)
[2016-07-06] MEDS: PANTOPRAZOLE SOD 40 MG DELAYED RELEASE TAB PO SCH ×2 (09:41→21:08)
[2016-07-06] MEDS: ATORVASTATIN 40 MG TAB PO SCH (09:41)
[2016-07-06] MEDS: NITROFURANTOIN MONOHYD MACROCR 100 MG CAP PO SCH ×2 (09:41→17:20)
[2016-07-06] MEDS: QUEtiapine FUMARATE 100 MG TAB PO SCH ×2 (09:41→21:07)
[2016-07-06] MEDS: FERROUS SULFATE 325 MG (65 MG ELEMENTAL IRON) TAB PO SCH (09:41)
--- NOTE | 2016-07-06 10:33 | HHI.PR ---
Subjective Remarks Follow-up for persistent cognitive deficit, cholecystitis. Denies pain. No acute complaints. No change in clinical status. Objective Vitals Vital Signs Date Time Temp Pulse Resp B/P Pulse Ox O2 Delivery O2 Flow Rate FiO2 07/06/16 08:00 97.0 76 18 129/90 94 07/05/16 20:00 97.9 82 18 143/92 96 I/O 07/05/16 07/05/16 07/05/16 07/06/16 07/06/16 07/06/16 07:00 15:00 23:00 07:00 15:00 23:00 Intake Total 560 ml 0 ml Output Total 440 ml Balance -440 ml 560 ml 0 ml Intake Oral 560 ml 0 ml Output Urine Total 440 ml # Voids 1 2 2 # Bowel Movements 0 1 2 0 Result Diagram: 07/05/16 0700 07/05/16 0700 Objective Remarks GENERAL: Well-nourished, well-developed male in no apparent distress. SKIN: Flaky skin to face. CARDIOVASCULAR: Regular rate and rhythm. RESPIRATORY: Clear to auscultation bilaterally. GASTROINTESTINAL: Abdomen soft, nontender, non-distended. NEUROLOGICAL: Awake and alert. PSYCHIATRIC: Normal mood and affect. Procedures None Urinary Catheter: No Vascular Central Line Catheter: No A/P Problem List: (1) Anemia ICD Code: D64.9 Status: Acute (2) Sepsis ICD Code: A41.9 Status: Resolved (3) Abdominal pain ICD Code: R10.9 Status: Resolved (4) LFT elevation ICD Code: R94.5 Status: Acute (5) Acute kidney injury superimposed on CKD ICD Code: N17.9 Status: Acute (6) CVA (cerebral vascular accident) ICD Code: I63.9 Status: Chronic Assessment and Plan 60-year-old male was admitted on 10/14 with acute cortical infarct. Patient remains with significant cognitive deficit. Acute anemia: Improved. Patient has chronic anemia with iron deficiency but hemoglobin acutely worse at 6.7 on 06/25. S/p 2 units of pRBCs. Hemoglobin stable at 9.0 this morning. Bedside Hemoccult test negative. S/p IV Protonix Iron studies indicate iron 45, TIBC 232, ferritin 345 Continue ferrous sulfate 325 mg daily GI recommended nonemergent endoscopy and colonoscopy, but due to guardianship issues patient was unable to obtain. Sepsis: Resolved. Thought to be due to cholecystitis as patient had pulled out drain. -Lactic acid normal. -Repeat blood cultures x 2 NGTD -S/p IVF -Chest x-ray 06/26 personally interpreted and compared to prior with no acute changes. -Continue antibiotics as below. Abdominal pain, right upper quadrant: started on 06/10. Resolved. CT the abdomen shows gallstones with distended gallbladder Abdominal ultrasound indicates gallstones HIDA scan shows signs of acute cholecystitis Consulted general surgery; not a surgical candidate. Surgery recommended cholecystotomy drain which was placed by IR, but patient pulled out. Continue Cipro and Flagyl po till 07/09. PAT superimposed on Stage 3 CKD: Improved. -DIALLO inhibitor was discontinued. -Monitor intake and output -Avoid nephrotoxins. -S/p IV NS -06/25: BUN/Cr acutely worse at 54/1.90, could be due to combination of dehydration, possibly acute bleeding, infection. -S/p IVF. -07/05: BUN/Cr stable at 30/1.50. Thrombocytopenia: Resolved. Urinary tract infection: Resolved. Urine culture 03/07 with Klebsiella and pseudomonas Urine culture indicates enterococcus faecalis on 04/19 which was resistant to Cipro. Cipro switched to Macrobid, s/p treatment. Urine culture 05/27 indicates contamination. Urine culture 06/08 with no growth in 48 hours. Urine culture 06/27 indicates enterococcus faecalis which is resistant to Cipro Continue Macrobid 100 mg twice daily till 07/09. Bilateral cerebrovascular accident, with Intermittent and persistent cognitive defect -MRI showed acute cortical infarct of the right cerebral peduncle to the pelvis , left thalamus punctate area of infarct -Neurology last seen patient on 11/13/15, recommended long-term anticoagulation -Continue with Statin. -Continue Coumadin and monitor INR/PT; keep INR between 2 and 3. INR 3.2 today, pharmacist dosing. -Reconsulted PT/OT, patient will require intermittent therapy while he remains in the hospital so he does not decompensate -Out of bed with nursing only. Patient was counseled to not get out of bed on his own. Fall risk due to cognitive deficit -Psychiatry reconsulted 02/17 for evaluation and appreciate recommendations on patient's cognition, agitation, and medication non-compliance -Seroquel 100 mg daily and 150 mg at bedtime Hyperkalemia: Resolved. Likely combination of poor by mouth intake and DIALLO inhibitor DIALLO inhibitor discontinued due to hyperkalemia Status post Kayexalate Continue to monitor potassium level periodically Encourage by mouth intake Hypertension: BP elevated this morning. Amlodipine 10 mg daily Carvedilol 25 bid Imdur 60 daily Continue to monitor and adjust medications as needed as patient does need tight blood pressure control due to CVAs. Ischemic Cardiomyopathy/chronic systolic CHF: LVEF 35% on echo 03/2015. -Continue Coreg, Imdur. DIALLO discontinued due to impaired renal function/ hyperkalemia. -Could consider AICD if patient is able to consent, however patient is currently unable to consent -Fluid and sodium restrictions, follow volume status. -Chest x-ray 06/08 with compensated cardiomegaly. No acute edema. Seborrhea dermatitis: S/p Hydrocortisone cream x 2 weeks Encourage proper hygiene Diabetic mellitus: Glucose is well controlled. All insulin was discontinued. -Hgb A1c 6.9. -Accu-checks discontinued as patient's blood sugar was well controlled. -Continue diet control Peripheral arterial disease: stable. -Continue anticoagulation Constipation: See above -Abdominal x-ray 02/16 indicates moderate amount of stool in the colon on the left side. -MiraLAX, lactulose, Haydee-Colace daily. -Dulcolax as needed DVT prophylaxis - patient on Coumadin Discharge Planning 07/06/16: I spoke with Jm Rich CM, who states patient has been evaluated for guardianship but he does not qualify as his sister has been evaluated and deemed capable of caring for the patient. DALILA has also spoken with the patient' s sister and verified there is food in the home. The patient has a commode, urinal, and power scooter at the home. Home health care nursing to be arranged , but PT is not covered. Patient to be discharged tomorrow likely early afternoon after arrangements made. Home health care [id number] ordered. Patient will need to finish oral antibiotics. He also will need to have his INR monitored by [facility] as he is on Coumadin. Case management states that he can likely set up patient with follow-up with Dr. Kemp who can monitor the INR, but he will confirm this with me tomorrow. Problem Qualifiers (1) CVA (cerebral vascular accident): Qualified Code: I63.9 - Cerebrovascular accident (CVA), unspecified mechanism Jennifer Mae Jul 06, 2016 10:33 Jennifer Mae Jul 06, 2016 10:33
--- NOTE | 2016-07-06 15:46 | HHI.FF ---
Face to Face Verification Diagnosis: (1) CVA (cerebral vascular accident) (2) Sepsis (3) UTI (urinary tract infection) (4) Acute cholecystitis (5) LFT elevation (6) Hyperkalemia (7) Acute kidney injury superimposed on CKD (8) Thrombocytopenia (9) Anemia (10) HTN (hypertension) (11) Ischemic cardiomyopathy (12) CHF (congestive heart failure) (13) Diabetes Home Health Nursing Order: Medical education Signs/symptoms of disease process Diabetic education CHF education Medication education-adverse effect Nursing assessment with vital signs [employer] Order: To Evaluate: Support services Order: To Provide: Community services I have seen patient Bobby Amado on 07/06/16. My clinical findings support the need for the requested home health care services because: Ltd mobility - disease progression (R BKA) Limited ability to care for self Impaired cognition/judgement High risk of falls I certify that my clinical findings support that this patient is homebound because: Impaired cognitive ability/safety Unsafe to leave home unassisted Jennifer Mae Jul 06, 2016 15:46
[2016-07-06 20:00] VITALS: BP 121/83; PULSE 79; RESP 18; TEMP 98.2; O2SAT 96
[2016-07-06] MEDS: ISOSORBIDE MONONITRATE 60 MG TAB PO SCH (21:08)
[2016-07-07] MEDS: metroNIDAZOLE 500 MG TAB PO SCH ×3 (06:05→22:20)
[2016-07-07 08:00] VITALS: BP 120/92; PULSE 78; RESP 20; TEMP 97; O2SAT 98
[2016-07-07] MEDS: EUCERIN CREAM 120 GM JAR TOPICAL SCH ×2 (08:48→22:21)
[2016-07-07] MEDS: NITROFURANTOIN MONOHYD MACROCR 100 MG CAP PO SCH ×2 (08:48→17:41)
[2016-07-07] MEDS: LACTULOSE SYRUP 20 GM/30 ML CUP PO SCH (08:48)
[2016-07-07] MEDS: CARVEDILOL 12.5 MG TAB PO SCH ×2 (08:48→22:21)
[2016-07-07] MEDS: DOCUSATE SODIUM 50 MG/SENNA 8.6 MG TAB PO SCH ×2 (08:49→22:20)
[2016-07-07] MEDS: ATORVASTATIN 40 MG TAB PO SCH (08:49)
[2016-07-07] MEDS: FERROUS SULFATE 325 MG (65 MG ELEMENTAL IRON) TAB PO SCH (08:49)
[2016-07-07] MEDS: QUEtiapine FUMARATE 100 MG TAB PO SCH ×2 (08:49→22:21)
[2016-07-07] MEDS: POLYETHYLENE GLYCOL 17 GM PKG PO SCH (08:49)
[2016-07-07] MEDS: CIPROFLOXACIN 500 MG TAB PO SCH ×2 (08:49→22:20)
[2016-07-07 08:50] LABS: INTERNATIONAL NORMALIZED RATIO 3.7 RATIO; PROTHROMBIN TIME - PATIENT 43.1 SEC (9.8-11.6)
[2016-07-07] MEDS: FAMOTIDINE 20 MG TAB PO SCH ×2 (09:00→22:20)
--- NOTE | 2016-07-07 10:42 | HHI.PR ---
Subjective Remarks No acute complaints. No change in clinical status. Patient states he feels lousy because his bed is up so high. When I walked in the room the patient's bed was on the highest setting and apparently he had set it like this. Patient denies being in any pain. Objective Vitals Vital Signs Date Time Temp Pulse Resp B/P Pulse Ox O2 Delivery O2 Flow Rate FiO2 07/06/16 20:00 98.2 79 18 121/83 96 07/06/16 20:00 Room Air I/O 07/06/16 07/06/16 07/06/16 07/07/16 07/07/16 07/07/16 07:00 15:00 23:00 07:00 15:00 23:00 Intake Total 0 ml 480 ml Balance 0 ml 480 ml Intake Oral 0 ml 480 ml # Voids 2 3 # Bowel Movements 0 0 Result Diagram: 07/05/16 0707/05/16 0700 Objective Remarks GENERAL: Well-nourished, well-developed male in no apparent distress. SKIN: Flaky skin to face. CARDIOVASCULAR: Regular rate and rhythm. RESPIRATORY: Clear to auscultation bilaterally. GASTROINTESTINAL: Abdomen soft, nontender, non-distended. MUSCULOSKELETAL: R BKA. NEUROLOGICAL: Awake and alert. PSYCHIATRIC: Normal mood and affect. Procedures None Urinary Catheter: No Vascular Central Line Catheter: No A/P Problem List: (1) Anemia ICD Code: D64.9 Status: Acute (2) Sepsis ICD Code: A41.9 Status: Resolved (3) Abdominal pain ICD Code: R10.9 Status: Resolved (4) LFT elevation ICD Code: R94.5 Status: Acute (5) Acute kidney injury superimposed on CKD ICD Code: N17.9 Status: Acute (6) CVA (cerebral vascular accident) ICD Code: I63.9 Status: Chronic Assessment and Plan 60-year-old male was admitted on 10/14 with acute cortical infarct. Patient remains with significant cognitive deficit. Acute anemia: Improved. Patient has chronic anemia with iron deficiency but hemoglobin acutely worse at 6.7 on 06/25. S/p 2 units of pRBCs. Hemoglobin stable at 9.0 this morning. Bedside Hemoccult test negative. S/p IV Protonix. Patient is currently on Protonix 40 mg by mouth twice a day. This will be switched to Pepcid 20 mg twice a day as the patient never had any confirmed gastrointestinal bleeding and the Protonix may be having adverse interaction with his Coumadin keeping his INR elevated. Iron studies indicate iron 45, TIBC 232, ferritin 345 Continue ferrous sulfate 325 mg daily. Patient is to take his ferrous sulfate one hour prior to Pepcid in the morning. This was explained to RN. GI recommended nonemergent endoscopy and colonoscopy, but due to guardianship issues patient was unable to obtain. Sepsis: Resolved. Thought to be due to cholecystitis as patient had pulled out drain. -Lactic acid normal. -Repeat blood cultures x 2 NGTD -S/p IVF -Chest x-ray 06/26 personally interpreted and compared to prior with no acute changes. -Continue antibiotics as below. Abdominal pain, right upper quadrant: started on 06/10. Resolved. CT the abdomen shows gallstones with distended gallbladder Abdominal ultrasound indicates gallstones HIDA scan shows signs of acute cholecystitis Consulted general surgery; not a surgical candidate. Surgery recommended cholecystotomy drain which was placed by IR, but patient pulled out. Continue Cipro and Flagyl po till 07/09. PAT superimposed on Stage 3 CKD: Improved. -DIALLO inhibitor was discontinued. -Monitor intake and output -Avoid nephrotoxins. -S/p IV NS -06/25: BUN/Cr acutely worse at 54/1.90, could be due to combination of dehydration, possibly acute bleeding, infection. -S/p IVF. -07/05: BUN/Cr stable at 30/1.50. Thrombocytopenia: Resolved. Urinary tract infection: Resolved. Urine culture 03/07 with Klebsiella and pseudomonas Urine culture indicates enterococcus faecalis on 04/19 which was resistant to Cipro. Cipro switched to Macrobid, s/p treatment. Urine culture 05/27 indicates contamination. Urine culture 06/08 with no growth in 48 hours. Urine culture 06/27 indicates enterococcus faecalis which is resistant to Cipro Continue Macrobid 100 mg twice daily till 07/09. Bilateral cerebrovascular accident, with Intermittent and persistent cognitive defect -MRI showed acute cortical infarct of the right cerebral peduncle to the pelvis , left thalamus punctate area of infarct -Neurology last seen patient on 11/13/15, recommended long-term anticoagulation -Continue with Statin. -Continue Coumadin and monitor INR/PT; keep INR between 2 and 3. INR 3.7 today, pharmacist dosing. Coumadin held. -Reconsulted PT/OT, patient will require intermittent therapy while he remains in the hospital so he does not decompensate -Out of bed with nursing only. Patient was counseled to not get out of bed on his own. Fall risk due to cognitive deficit -Psychiatry reconsulted 02/17 for evaluation and appreciate recommendations on patient's cognition, agitation, and medication non-compliance -Seroquel 100 mg daily and 150 mg at bedtime Hyperkalemia: Resolved. Likely combination of poor by mouth intake and DIALLO inhibitor DIALLO inhibitor discontinued due to hyperkalemia Status post Kayexalate Continue to monitor potassium level periodically Encourage by mouth intake Hypertension: BP elevated this morning. Amlodipine 10 mg daily Carvedilol 25 bid Imdur 60 daily Continue to monitor and adjust medications as needed as patient does need tight blood pressure control due to CVAs. Ischemic Cardiomyopathy/chronic systolic CHF: LVEF 35% on echo 03/2015. -Continue Coreg, Imdur. DIALLO discontinued due to impaired renal function/ hyperkalemia. -Could consider AICD if patient is able to consent, however patient is currently unable to consent -Fluid and sodium restrictions, follow volume status. -Chest x-ray 06/08 with compensated cardiomegaly. No acute edema. Seborrhea dermatitis: S/p Hydrocortisone cream x 2 weeks Encourage proper hygiene Diabetic mellitus: Glucose is well controlled. All insulin was discontinued. -Hgb A1c 6.9. -Accu-checks discontinued as patient's blood sugar was well controlled. -Continue diet control Peripheral arterial disease: stable. -Continue anticoagulation Constipation: See above -Abdominal x-ray 02/16 indicates moderate amount of stool in the colon on the left side. -MiraLAX, lactulose, Haydee-Colace daily. -Dulcolax as needed DVT prophylaxis - patient on Coumadin Discharge Planning 07/06/16: I spoke with Jm Rich CM, who states patient has been evaluated for guardianship but he does not qualify as his sister has been evaluated and deemed capable of caring for the patient. DALILA has also spoken with the patient' s sister and verified there is food in the home. The patient has a commode, urinal, and power scooter at the home. Home health care nursing to be arranged , but PT is not covered. Patient to be discharged tomorrow likely early afternoon after arrangements made. Home health care [id number] ordered. Patient will need to finish oral antibiotics. He also will need to have his INR monitored by [facility] as he is on Coumadin. Case management states that he can likely set up patient with follow-up with Dr. Kemp who can monitor the INR, but he will confirm this with me tomorrow. 07/07/16: The plan was to discharge the patient today but his INR continues to be elevated and Coumadin has been held for the past few days. I spoke with the pillowcase folder who states the patient would be unable to get daily INRs by home health care. I feel that it would be unsafe to discharge the patient without proper INR follow-up. The patient is likely not an ideal candidate for new generation anticoagulants due to his chronic kidney disease. Patient will remain hospitalized until INR is stable within normal limits. The Flagyl may also be affecting his INR and this will be finished in a few days. Problem Qualifiers (1) CVA (cerebral vascular accident): Qualified Code: I63.9 - Cerebrovascular accident (CVA), unspecified mechanism Jennifer Mae Jul 07, 2016 10:41
[2016-07-07] MEDS ORDERED: FAMO20TA2 PO (11:32)
[2016-07-07] MEDS ORDERED: SKIN1CRE2 TOPICAL (11:32)
[2016-07-07] MEDS ORDERED: MACR100C2 PO (11:32)
[2016-07-07] MEDS ORDERED: QUET1TAB8 PO ×2 (11:32)
[2016-07-07] MEDS ORDERED: ISOS60TA PO (11:32)
[2016-07-07] MEDS ORDERED: PERI8.6T PO (11:32)
[2016-07-07] MEDS ORDERED: CIPR-9 PO (11:32)
[2016-07-07] MEDS ORDERED: CARV12.5 PO (11:32)
[2016-07-07] MEDS ORDERED: LACT10SO PO (11:32)
[2016-07-07] MEDS ORDERED: ATOR1TAB18 PO (11:32)
[2016-07-07] MEDS ORDERED: FERR325T PO (11:32)
[2016-07-07] MEDS ORDERED: METR-1 PO (11:32)
[2016-07-07 20:00] VITALS: BP 141/98; PULSE 83; RESP 20; TEMP 97.2; O2SAT 98
[2016-07-07] MEDS: ISOSORBIDE MONONITRATE 60 MG TAB PO SCH (22:20)
[2016-07-08] MEDS: metroNIDAZOLE 500 MG TAB PO SCH ×3 (05:44→21:14)
[2016-07-08 07:51] LABS: INTERNATIONAL NORMALIZED RATIO 2.7 RATIO; PROTHROMBIN TIME - PATIENT 31.1 SEC (9.8-11.6)
[2016-07-08 08:00] VITALS: BP 140/98; PULSE 69; RESP 19; TEMP 95.4; O2SAT 99
[2016-07-08] MEDS: QUEtiapine FUMARATE 100 MG TAB PO SCH ×2 (09:39→21:14)
[2016-07-08] MEDS: DOCUSATE SODIUM 50 MG/SENNA 8.6 MG TAB PO SCH ×2 (09:39→21:14)
[2016-07-08] MEDS: CIPROFLOXACIN 500 MG TAB PO SCH ×2 (09:39→21:14)
[2016-07-08] MEDS: CARVEDILOL 12.5 MG TAB PO SCH ×2 (09:39→21:13)
[2016-07-08] MEDS: NITROFURANTOIN MONOHYD MACROCR 100 MG CAP PO SCH ×2 (09:39→16:51)
[2016-07-08] MEDS: POLYETHYLENE GLYCOL 17 GM PKG PO SCH (09:39)
[2016-07-08] MEDS: LACTULOSE SYRUP 20 GM/30 ML CUP PO SCH (09:40)
[2016-07-08] MEDS: FAMOTIDINE 20 MG TAB PO SCH ×2 (09:40→21:14)
[2016-07-08] MEDS: ATORVASTATIN 40 MG TAB PO SCH (09:40)
[2016-07-08] MEDS: FERROUS SULFATE 325 MG (65 MG ELEMENTAL IRON) TAB PO SCH (09:40)
[2016-07-08] MEDS: EUCERIN CREAM 120 GM JAR TOPICAL SCH ×2 (09:46→21:14)
--- NOTE | 2016-07-08 18:10 | HHI.PR ---
Subjective Remarks No acute complaints. No change in clinical status. Objective Vitals Vital Signs Date Time Temp Pulse Resp B/P Pulse Ox O2 Delivery O2 Flow Rate FiO2 07/08/16 08:00 98 07/08/16 08:00 95.4 69 19 140/98 99 07/07/16 20:00 97.2 83 20 141/98 98 07/07/16 20:00 Room Air I/O 07/07/16 07/07/16 07/07/16 07/08/16 07/08/16 07/08/16 07:00 15:00 23:00 07:00 15:00 23:00 Intake Total 1000 ml 240 ml 240 ml Balance 1000 ml 240 ml 240 ml Intake Oral 1000 ml 240 ml Oral Supplement 240 ml # Voids 4 1 0 2 # Bowel Movements 0 0 0 Result Diagram: 07/05/16 0700 07/05/16 0700 Objective Remarks GENERAL: Well-nourished, well-developed male in no apparent distress. CARDIOVASCULAR: Regular rate and rhythm. RESPIRATORY: RR normal. GASTROINTESTINAL: Abdomen soft, nontender, non-distended. NEUROLOGICAL: Sleeping, but arouses. Procedures None Urinary Catheter: No Vascular Central Line Catheter: No A/P Problem List: (1) Anemia ICD Code: D64.9 Status: Acute (2) Sepsis ICD Code: A41.9 Status: Resolved (3) Abdominal pain ICD Code: R10.9 Status: Resolved (4) LFT elevation ICD Code: R94.5 Status: Acute (5) Acute kidney injury superimposed on CKD ICD Code: N17.9 Status: Acute (6) CVA (cerebral vascular accident) ICD Code: I63.9 Status: Chronic Assessment and Plan 60-year-old male was admitted on 10/14 with acute cortical infarct. Patient remains with significant cognitive deficit. Acute anemia: Improved. Patient has chronic anemia with iron deficiency but hemoglobin acutely worse at 6.7 on 06/25. S/p 2 units of pRBCs. Hemoglobin stable at 9.0 this morning. Bedside Hemoccult test negative. S/p IV Protonix. Patient is currently on Protonix 40 mg by mouth twice a day. This will be switched to Pepcid 20 mg twice a day as the patient never had any confirmed gastrointestinal bleeding and the Protonix may be having adverse interaction with his Coumadin keeping his INR elevated. Iron studies indicate iron 45, TIBC 232, ferritin 345 Continue ferrous sulfate 325 mg daily. Patient is to take his ferrous sulfate one hour prior to Pepcid in the morning. This was explained to RN. GI recommended nonemergent endoscopy and colonoscopy, but due to guardianship issues patient was unable to obtain. Sepsis: Resolved. Thought to be due to cholecystitis as patient had pulled out drain. -Lactic acid normal. -Repeat blood cultures x 2 NGTD -S/p IVF -Chest x-ray 06/26 personally interpreted and compared to prior with no acute changes. -Continue antibiotics as below. Abdominal pain, right upper quadrant: started on 06/10. Resolved. CT the abdomen shows gallstones with distended gallbladder Abdominal ultrasound indicates gallstones HIDA scan shows signs of acute cholecystitis Consulted general surgery; not a surgical candidate. Surgery recommended cholecystotomy drain which was placed by IR, but patient pulled out. Continue Cipro and Flagyl po till 07/09. PAT superimposed on Stage 3 CKD: Improved. -DIALLO inhibitor was discontinued. -Monitor intake and output -Avoid nephrotoxins. -S/p IV NS -06/25: BUN/Cr acutely worse at 54/1.90, could be due to combination of dehydration, possibly acute bleeding, infection. -S/p IVF. -07/05: BUN/Cr stable at 30/1.50. Thrombocytopenia: Resolved. Urinary tract infection: Resolved. Urine culture 03/07 with Klebsiella and pseudomonas Urine culture indicates enterococcus faecalis on 04/19 which was resistant to Cipro. Cipro switched to Macrobid, s/p treatment. Urine culture 05/27 indicates contamination. Urine culture 06/08 with no growth in 48 hours. Urine culture 06/27 indicates enterococcus faecalis which is resistant to Cipro Continue Macrobid 100 mg twice daily till 07/09. Bilateral cerebrovascular accident, with Intermittent and persistent cognitive defect -MRI showed acute cortical infarct of the right cerebral peduncle to the pelvis , left thalamus punctate area of infarct -Neurology last seen patient on 11/13/15, recommended long-term anticoagulation -Continue with Statin. -Continue Coumadin and monitor INR/PT; keep INR between 2 and 3. INR 2.7 today, pharmacist dosing. -Reconsulted PT/OT, patient will require intermittent therapy while he remains in the hospital so he does not decompensate -Out of bed with nursing only. Patient was counseled to not get out of bed on his own. Fall risk due to cognitive deficit -Psychiatry reconsulted 02/17 for evaluation and appreciate recommendations on patient's cognition, agitation, and medication non-compliance -Seroquel 100 mg daily and 150 mg at bedtime Hyperkalemia: Resolved. Likely combination of poor by mouth intake and DIALLO inhibitor DIALLO inhibitor discontinued due to hyperkalemia Status post Kayexalate Continue to monitor potassium level periodically Encourage by mouth intake Hypertension: BP 140/98 this morning, but fluctuates. Amlodipine 10 mg daily Carvedilol 25 bid Imdur 60 daily Continue to monitor and adjust medications as needed as patient does need tight blood pressure control due to CVAs. Ischemic Cardiomyopathy/chronic systolic CHF: LVEF 35% on echo 03/2015. -Continue Coreg, Imdur. DIALLO discontinued due to impaired renal function/ hyperkalemia. -Could consider AICD if patient is able to consent, however patient is currently unable to consent -Fluid and sodium restrictions, follow volume status. -Chest x-ray 06/08 with compensated cardiomegaly. No acute edema. Seborrhea dermatitis: S/p Hydrocortisone cream x 2 weeks Encourage proper hygiene. Improved after FOOD PRODUCTION SUPERVISOR washed and shaved patient's face today. Diabetic mellitus: Glucose is well controlled. All insulin was discontinued. -Hgb A1c 6.9. -Accu-checks discontinued as patient's blood sugar was well controlled. -Continue diet control Peripheral arterial disease: stable. -Continue anticoagulation Constipation: See above -Abdominal x-ray 02/16 indicates moderate amount of stool in the colon on the left side. -MiraLAX, lactulose, Haydee-Colace daily. -Dulcolax as needed DVT prophylaxis - patient on Coumadin Discharge Planning 07/06/16: I spoke with Jm Rich CM, who states patient has been evaluated for guardianship but he does not qualify as his sister has been evaluated and deemed capable of caring for the patient. DALILA has also spoken with the patient' s sister and verified there is food in the home. The patient has a commode, urinal, and power scooter at the home. Home health care nursing to be arranged , but PT is not covered. Patient to be discharged tomorrow likely early afternoon after arrangements made. Home health care [id number] ordered. Patient will need to finish oral antibiotics. He also will need to have his INR monitored by [facility] as he is on Coumadin. Case management states that he can likely set up patient with follow-up with Dr. Kemp who can monitor the INR, but he will confirm this with me tomorrow. 07/07/16: The plan was to discharge the patient today but his INR continues to be elevated and Coumadin has been held for the past few days. I spoke with the assistant case manager who states the patient would be unable to get daily INRs by home health care. I feel that it would be unsafe to discharge the patient without proper INR follow-up. The patient is likely not an ideal candidate for new generation anticoagulants due to his chronic kidney disease. Patient will remain hospitalized until INR is stable within normal limits. The Flagyl may also be affecting his INR and this will be finished in a few days. Problem Qualifiers (1) CVA (cerebral vascular accident): Qualified Code: I63.9 - Cerebrovascular accident (CVA), unspecified mechanism Jennifer Mae Jul 08, 2016 18:10
[2016-07-08 20:00] VITALS: BP 140/86; PULSE 74; RESP 16; TEMP 96.5; O2SAT 98
[2016-07-08] MEDS ORDERED: WARFARIN SOD 2.5 MG TAB PO ONE (21:00)
[2016-07-08] MEDS: ISOSORBIDE MONONITRATE 60 MG TAB PO SCH (21:14)
[2016-07-09] MEDS: metroNIDAZOLE 500 MG TAB PO SCH (06:29)
[2016-07-09 08:00] VITALS: BP 120/89; PULSE 72; RESP 17; TEMP 97.2; O2SAT 99
[2016-07-09 08:30] LABS: INTERNATIONAL NORMALIZED RATIO 1.8 RATIO; PROTHROMBIN TIME - PATIENT 20.4 SEC (9.8-11.6)
[2016-07-09] MEDS: EUCERIN CREAM 120 GM JAR TOPICAL SCH ×2 (09:00→21:00)
[2016-07-09] MEDS: POLYETHYLENE GLYCOL 17 GM PKG PO SCH (09:00)
[2016-07-09] MEDS: ATORVASTATIN 40 MG TAB PO SCH (10:43)
[2016-07-09] MEDS: DOCUSATE SODIUM 50 MG/SENNA 8.6 MG TAB PO SCH ×2 (10:43→21:43)
[2016-07-09] MEDS: LACTULOSE SYRUP 20 GM/30 ML CUP PO SCH (10:43)
[2016-07-09] MEDS: CIPROFLOXACIN 500 MG TAB PO SCH (10:43)
[2016-07-09] MEDS: NITROFURANTOIN MONOHYD MACROCR 100 MG CAP PO SCH (10:43)
[2016-07-09] MEDS: CARVEDILOL 12.5 MG TAB PO SCH ×2 (10:44→21:42)
[2016-07-09] MEDS: QUEtiapine FUMARATE 100 MG TAB PO SCH ×2 (10:44→21:42)
[2016-07-09] MEDS: FAMOTIDINE 20 MG TAB PO SCH ×2 (10:44→21:42)
[2016-07-09] MEDS: FERROUS SULFATE 325 MG (65 MG ELEMENTAL IRON) TAB PO SCH (10:44)
--- NOTE | 2016-07-09 11:38 | HHI.PR ---
Subjective Remarks No acute complaints. No change in clinical status. Objective Vitals Vital Signs Date Time Temp Pulse Resp B/P Pulse Ox O2 Delivery O2 Flow Rate FiO2 07/09/16 08:00 97.2 72 17 120/89 99 07/08/16 20:00 96.5 74 16 140/86 98 I/O 07/08/16 07/08/16 07/08/16 07/09/16 07/09/16 07/09/16 07:00 15:00 23:00 07:00 15:00 23:00 Intake Total 240 ml 120 ml 0 ml Output Total 150 ml Balance 240 ml 120 ml -150 ml Intake Oral 240 ml 0 ml Oral Supplement 120 ml Output Urine Total 150 ml # Voids 0 4 # Bowel Movements 0 0 0 Result Diagram: 07/05/1669907/05/16 07 Objective Remarks GENERAL: Well-nourished, well-developed male in no apparent distress. CARDIOVASCULAR: Regular rate and rhythm. RESPIRATORY: RR normal.CTAB. GASTROINTESTINAL: Abdomen soft, nontender, non-distended. NEUROLOGICAL: Awake and alert. Procedures None Urinary Catheter: No Vascular Central Line Catheter: No A/P Problem List: (1) Anemia ICD Code: D64.9 Status: Acute (2) Sepsis ICD Code: A41.9 Status: Resolved (3) Abdominal pain ICD Code: R10.9 Status: Resolved (4) LFT elevation ICD Code: R94.5 Status: Acute (5) Acute kidney injury superimposed on CKD ICD Code: N17.9 Status: Acute (6) CVA (cerebral vascular accident) ICD Code: I63.9 Status: Chronic Assessment and Plan 60-year-old male was admitted on 10/14 with acute cortical infarct. Patient remains with significant cognitive deficit. Acute anemia: Improved. Patient has chronic anemia with iron deficiency but hemoglobin acutely worse at 6.7 on 06/25. S/p 2 units of pRBCs. Hemoglobin stable at 9.0. Bedside Hemoccult test negative. Continue Pepcid 20 mg twice a day. Protonix was discontinued as it may have been interacting with Coumadin keeping his INR elevated. Iron studies indicate iron 45, TIBC 232, ferritin 345 Continue ferrous sulfate 325 mg daily. Patient is to take his ferrous sulfate one hour prior to Pepcid in the morning. This was explained to RN. GI recommended nonemergent endoscopy and colonoscopy, but due to guardianship issues patient was unable to obtain. Sepsis: Resolved. Thought to be due to cholecystitis as patient had pulled out drain. -Lactic acid normal. -Repeat blood cultures x 2 NGTD -S/p IVF -Chest x-ray 06/26 personally interpreted and compared to prior with no acute changes. -Continue antibiotics as below. Abdominal pain, right upper quadrant: started on 06/10. Resolved. CT the abdomen shows gallstones with distended gallbladder Abdominal ultrasound indicates gallstones HIDA scan shows signs of acute cholecystitis Consulted general surgery; not a surgical candidate. Surgery recommended cholecystotomy drain which was placed by IR, but patient pulled out. Last dose of Cipro and Flagyl today. PAT superimposed on Stage 3 CKD: Improved. -DIALLO inhibitor was discontinued. -Monitor intake and output -Avoid nephrotoxins. -S/p IV NS -06/25: BUN/Cr acutely worse at 54/1.90, could be due to combination of dehydration, possibly acute bleeding, infection. -S/p IVF. -07/05: BUN/Cr stable at 30/1.50. Thrombocytopenia: Resolved. Urinary tract infection: Resolved. Urine culture 03/07 with Klebsiella and pseudomonas Urine culture indicates enterococcus faecalis on 04/19 which was resistant to Cipro. Cipro switched to Macrobid, s/p treatment. Urine culture 05/27 indicates contamination. Urine culture 06/08 with no growth in 48 hours. Urine culture 06/27 indicates enterococcus faecalis which is resistant to Cipro Macrobid 100 mg twice daily last dose today. Bilateral cerebrovascular accident, with Intermittent and persistent cognitive defect -MRI showed acute cortical infarct of the right cerebral peduncle to the pelvis , left thalamus punctate area of infarct -Neurology last seen patient on 11/13/15, recommended long-term anticoagulation -Continue with Statin. -Continue Coumadin and monitor INR/PT; keep INR between 2 and 3. INR 1.8 today, pharmacist dosing. -Reconsulted PT/OT, patient will require intermittent therapy while he remains in the hospital so he does not decompensate -Out of bed with nursing only. Patient was counseled to not get out of bed on his own. Fall risk due to cognitive deficit -Psychiatry reconsulted 02/17 for evaluation and appreciate recommendations on patient's cognition, agitation, and medication non-compliance -Seroquel 100 mg daily and 150 mg at bedtime Hyperkalemia: Resolved. Likely combination of poor by mouth intake and DIALLO inhibitor DIALLO inhibitor discontinued due to hyperkalemia Status post Kayexalate Continue to monitor potassium level periodically Encourage by mouth intake Hypertension: BP 140/98 this morning, but fluctuates. Amlodipine 10 mg daily Carvedilol 25 bid Imdur 60 daily Continue to monitor and adjust medications as needed as patient does need tight blood pressure control due to CVAs. Ischemic Cardiomyopathy/chronic systolic CHF: LVEF 35% on echo 03/2015. -Continue Coreg, Imdur. DIALLO discontinued due to impaired renal function/ hyperkalemia. -Could consider AICD if patient is able to consent, however patient is currently unable to consent -Fluid and sodium restrictions, follow volume status. -Chest x-ray 06/08 with compensated cardiomegaly. No acute edema. Seborrhea dermatitis: S/p Hydrocortisone cream x 2 weeks Encourage proper hygiene. 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 Diabetic mellitus: Glucose is well controlled. All insulin was discontinued. -Hgb A1c 6.9. -Accu-checks discontinued as patient's blood sugar was well controlled. -Continue diet control Peripheral arterial disease: stable. -Continue anticoagulation Constipation: See above -Abdominal x-ray 02/16 indicates moderate amount of stool in the colon on the left side. -MiraLAX, lactulose, Ahydee-Colace daily. -Dulcolax as needed DVT prophylaxis - patient on Coumadin Discharge Planning 07/06/16: I spoke with Jm Rich CM, who states patient has been evaluated for guardianship but he does not qualify as his sister has been evaluated and deemed capable of caring for the patient. DALILA has also spoken with the patient' s sister and verified there is food in the home. The patient has a commode, urinal, and power scooter at the home. Home health care nursing to be arranged , but PT is not covered. Patient to be discharged tomorrow likely early afternoon after arrangements made. Home health care [id number] ordered. Patient will need to finish oral antibiotics. He also will need to have his INR monitored by [facility] as he is on Coumadin. Case management states that he can likely set up patient with follow-up with Dr. Kemp who can monitor the INR, but he will confirm this with me tomorrow. 3/9/17: The plan was to discharge the patient today but his INR continues to be elevated and Coumadin has been held for the past few days. I spoke with the high risk case manager who states the patient would be unable to get daily INRs by home health care. I feel that it would be unsafe to discharge the patient without proper INR follow-up. The patient is likely not an ideal candidate for newer generation anticoagulants due to his chronic kidney disease. Patient will remain hospitalized until INR is stable within normal limits. The antibiotics may also be affecting his INR and this will be finished in a few days. Problem Qualifiers (1) CVA (cerebral vascular accident): Qualified Code: I63.9 - Cerebrovascular accident (CVA), unspecified mechanism Jennifer Mae Jul 09, 2016 11:38
[2016-07-09 20:00] VITALS: BP 140/89; PULSE 83; RESP 18; TEMP 98.3; O2SAT 97
[2016-07-09] MEDS: WARFARIN SOD 5 MG TAB PO SCH (21:42)
[2016-07-09] MEDS: ISOSORBIDE MONONITRATE 60 MG TAB PO SCH (21:42)
[2016-07-10 08:00] VITALS: BP 116/85; PULSE 78; RESP 19; TEMP 97; O2SAT 98
[2016-07-10] MEDS: EUCERIN CREAM 120 GM JAR TOPICAL SCH ×2 (09:00→21:36)
[2016-07-10 10:02] LABS: INTERNATIONAL NORMALIZED RATIO 1.6 RATIO; PROTHROMBIN TIME - PATIENT 18.4 SEC (9.8-11.6)
[2016-07-10] MEDS: LACTULOSE SYRUP 20 GM/30 ML CUP PO SCH (10:02)
[2016-07-10] MEDS: POLYETHYLENE GLYCOL 17 GM PKG PO SCH (10:03)
[2016-07-10] MEDS: CARVEDILOL 12.5 MG TAB PO SCH ×2 (10:03→21:34)
[2016-07-10] MEDS: FAMOTIDINE 20 MG TAB PO SCH ×2 (10:03→21:34)
[2016-07-10] MEDS: QUEtiapine FUMARATE 100 MG TAB PO SCH ×2 (10:03→21:36)
[2016-07-10] MEDS: ATORVASTATIN 40 MG TAB PO SCH (10:03)
[2016-07-10] MEDS: FERROUS SULFATE 325 MG (65 MG ELEMENTAL IRON) TAB PO SCH (10:04)
[2016-07-10] MEDS: DOCUSATE SODIUM 50 MG/SENNA 8.6 MG TAB PO SCH ×2 (10:04→21:36)
--- NOTE | 2016-07-10 17:27 | HHI.PR ---
Subjective Remarks Seen today in follow-up. No new complaints. Hospital day 269 patient in dayroom watching TV Objective Vitals Vital Signs Date Time Temp Pulse Resp B/P Pulse Ox O2 Delivery O2 Flow Rate FiO2 07/10/16 08:00 97.0 78 19 116/85 98 07/09/16 20:00 98.3 83 18 140/89 97 I/O 07/09/16 07/09/16 07/09/16 07/10/16 07/10/16 07/10/16 07:00 15:00 23:00 07:00 15:00 23:00 Intake Total 0 ml 480 ml 120 ml 0 ml 650 ml Output Total 150 ml 200 ml Balance -150 ml 480 ml -80 ml 0 ml 650 ml Intake Oral 0 ml 480 ml 120 ml 650 ml IV Total 0 ml 0 ml Output Urine Total 150 ml 200 ml # Voids 1 4 # Bowel Movements 0 0 0 Objective Remarks GENERAL: This is a well-nourished, well-developed patient, in no apparent distress. CARDIOVASCULAR: Regular rate and rhythm without murmurs, gallops, or rubs. RESPIRATORY: Clear to auscultation. Breath sounds equal bilaterally. No wheezes , rales, or rhonchi. GASTROINTESTINAL: Abdomen soft, non-tender, nondistended. Normal active bowel sounds MUSCULOSKELETAL: right BKA, Extremities without clubbing, cyanosis, or edema. NEURO: Alert & Oriented to person, situation Procedures None A/P Discharge Planning Hospital day #269 and patient with severe cognitive deficits and unable to care for himself. Patient will need long-term care, case management aware barriers to discharge Trisha Lim MD Jul 10, 2016 17:27
[2016-07-10] MEDS: ISOSORBIDE MONONITRATE 60 MG TAB PO SCH (21:34)
[2016-07-10] MEDS: WARFARIN SOD 5 MG TAB PO SCH (21:35)
[2016-07-10 22:00] VITALS: BP 135/93; PULSE 87; RESP 16; TEMP 97.5; O2SAT 95
[2016-07-11 08:00] VITALS: BP 133/86; PULSE 73; RESP 19; TEMP 95.1; O2SAT 96
[2016-07-11 08:24] LABS: INTERNATIONAL NORMALIZED RATIO 1.5 RATIO; PROTHROMBIN TIME - PATIENT 17.1 SEC (9.8-11.6)
--- NOTE | 2016-07-11 09:35 | HHI.PR ---
Subjective Remarks Follow-up for persistent cognitive deficit. Patient states he has lousy, but he denies any pain. Objective Vitals Vital Signs Date Time Temp Pulse Resp B/P Pulse Ox O2 Delivery O2 Flow Rate FiO2 07/11/16 08:00 95.1 73 19 133/86 96 07/10/16 22:00 97.5 87 16 135/93 95 I/O 07/10/16 07/10/16 07/10/16 07/11/16 07/11/16 07/11/16 07:00 15:00 23:00 07:00 15:00 23:00 Intake Total 0 ml 650 ml Balance 0 ml 650 ml Intake Oral 650 ml IV Total 0 ml # Voids 4 1 # Bowel Movements 0 1 Objective Remarks GENERAL: Well-nourished, well-developed male in no apparent distress. CARDIOVASCULAR: Regular rate and rhythm. RESPIRATORY: RR normal. CTAB. GASTROINTESTINAL: Abdomen soft, nontender, non-distended. NEUROLOGICAL: Awake and alert. Procedures None Urinary Catheter: No Vascular Central Line Catheter: No A/P Problem List: (1) Anemia ICD Code: D64.9 Status: Acute (2) Sepsis ICD Code: A41.9 Status: Resolved (3) Abdominal pain ICD Code: R10.9 Status: Resolved (4) LFT elevation ICD Code: R94.5 Status: Acute (5) Acute kidney injury superimposed on CKD ICD Code: N17.9 Status: Acute (6) CVA (cerebral vascular accident) ICD Code: I63.9 Status: Chronic Assessment and Plan 60-year-old male was admitted on 10/14 with acute cortical infarct. Patient remains with significant cognitive deficit. Acute anemia: Improved. Patient has chronic anemia with iron deficiency but hemoglobin acutely worse at 6.7 on 06/25. S/p 2 units of pRBCs. Hemoglobin stable at 9.0. Bedside Hemoccult test negative. Continue Pepcid 20 mg twice a day. Protonix was discontinued as it may have been interacting with Coumadin keeping his INR elevated. Iron studies indicate iron 45, TIBC 232, ferritin 345 Continue ferrous sulfate 325 mg daily. Patient is to take his ferrous sulfate one hour prior to Pepcid in the morning. This was explained to RN. GI recommended nonemergent endoscopy and colonoscopy, but due to guardianship issues patient was unable to obtain. Sepsis: Resolved. Thought to be due to cholecystitis as patient had pulled out drain. -Lactic acid normal. -Repeat blood cultures x 2 NGTD -S/p IVF -Chest x-ray 06/26 personally interpreted and compared to prior with no acute changes. -S/p antibiotics Abdominal pain, right upper quadrant: started on 06/10. Resolved. CT the abdomen shows gallstones with distended gallbladder Abdominal ultrasound indicates gallstones HIDA scan shows signs of acute cholecystitis Consulted general surgery; not a surgical candidate. Surgery recommended cholecystotomy drain which was placed by IR, but patient pulled out. S/p Cipro and Flagyl treatment end date 07/09/16 PAT superimposed on Stage 3 CKD: Improved. -DIALLO inhibitor was discontinued. -Monitor intake and output -Avoid nephrotoxins. -S/p IV NS -06/25: BUN/Cr acutely worse at 54/1.90, could be due to combination of dehydration, possibly acute bleeding, infection. -S/p IVF. -07/05: BUN/Cr stable at 30/1.50. Thrombocytopenia: Resolved. Urinary tract infection: Resolved. Urine culture 03/07 with Klebsiella and pseudomonas Urine culture indicates enterococcus faecalis on 04/19 which was resistant to Cipro. Cipro switched to Macrobid, s/p treatment. Urine culture 05/27 indicates contamination. Urine culture 06/08 with no growth in 48 hours. Urine culture 06/27 indicates enterococcus faecalis which is resistant to Cipro S/p Macrobid treatment end date 07/09/16 Bilateral cerebrovascular accident, with Intermittent and persistent cognitive defect -MRI showed acute cortical infarct of the right cerebral peduncle to the pelvis , left thalamus punctate area of infarct -Neurology last seen patient on 11/13/15, recommended long-term anticoagulation -Continue with Statin. -Continue Coumadin and monitor INR/PT; keep INR between 2 and 3. INR 1.5 today, pharmacist dosing. -Reconsulted PT/OT, patient will require intermittent therapy while he remains in the hospital so he does not decompensate -Out of bed with nursing only. Patient was counseled to not get out of bed on his own. Fall risk due to cognitive deficit -Psychiatry reconsulted 02/17 for evaluation and appreciate recommendations on patient's cognition, agitation, and medication non-compliance -Seroquel 100 mg daily and 150 mg at bedtime Hyperkalemia: Resolved. Likely combination of poor by mouth intake and DIALLO inhibitor DIALLO inhibitor discontinued due to hyperkalemia Status post Kayexalate Continue to monitor potassium level periodically Encourage by mouth intake Hypertension: BP 140/98 this morning, but fluctuates. Amlodipine 10 mg daily Carvedilol 25 bid Imdur 60 daily Continue to monitor and adjust medications as needed as patient does need tight blood pressure control due to CVAs. Ischemic Cardiomyopathy/chronic systolic CHF: LVEF 35% on echo 03/2015. -Continue Coreg, Imdur. DIALLO discontinued due to impaired renal function/ hyperkalemia. -Could consider AICD if patient is able to consent, however patient is currently unable to consent -Fluid and sodium restrictions, follow volume status. -Chest x-ray 06/08 with compensated cardiomegaly. No acute edema. Seborrhea dermatitis: S/p Hydrocortisone cream x 2 weeks Encourage proper hygiene. Improved after E[employer]ER[employer] MANAGER washed and shaved patient's face today. Diabetic mellitus: Glucose is well controlled. All insulin was discontinued. -Hgb A1c 6.9. -Accu-checks discontinued as patient's blood sugar was well controlled. -Continue diet control Peripheral arterial disease: stable. -Continue anticoagulation Constipation: See above -Abdominal x-ray 02/16 indicates moderate amount of stool in the colon on the left side. -MiraLAX, lactulose, Haydee-Colace daily. -Dulcolax as needed DVT prophylaxis - patient on Coumadin Discharge Planning 07/06/16: I spoke with Jm Rich CM, who states patient has been evaluated for guardianship but he does not qualify as his sister has been evaluated and deemed capable of caring for the patient. DALILA has also spoken with the patient' s sister and verified there is food in the home. The patient has a commode, urinal, and power scooter at the home. Home health care nursing to be arranged , but PT is not covered. Patient to be discharged tomorrow likely early afternoon after arrangements made. Home health care [id number] ordered. Patient will need to finish oral antibiotics. He also will need to have his INR monitored by [facility] as he is on Coumadin. Case management states that he can likely set up patient with follow-up with Dr. Kemp who can monitor the INR, but he will confirm this with me tomorrow. 3/9/17: The plan was to discharge the patient today but his INR continues to be elevated and Coumadin has been held for the past few days. I spoke with the case maker who states the patient would be unable to get daily INRs by home health care. I feel that it would be unsafe to discharge the patient without proper INR follow-up. The patient is likely not an ideal candidate for newer generation anticoagulants due to his chronic kidney disease. Patient will remain hospitalized until INR is stable within normal limits. The antibiotics may also be affecting his INR and this will be finished in a few days. 07/11/16: INR improved. Jm Rich CM, informs me that there is an issue with patient's insurance, and he is trying to set him up with a PCP. He will keep me informed as to when discharge is a possibility as patient will need INR monitoring at least twice weekly and [facility], and will need physician following this. Problem Qualifiers (1) CVA (cerebral vascular accident): Qualified Code: I63.9 - Cerebrovascular accident (CVA), unspecified mechanism Jennifer Mae Jul 11, 2016 09:35
[2016-07-11] MEDS: POLYETHYLENE GLYCOL 17 GM PKG PO SCH (10:06)
[2016-07-11] MEDS: CARVEDILOL 12.5 MG TAB PO SCH ×2 (10:06→21:12)
[2016-07-11] MEDS: DOCUSATE SODIUM 50 MG/SENNA 8.6 MG TAB PO SCH ×2 (10:06→21:12)
[2016-07-11] MEDS: LACTULOSE SYRUP 20 GM/30 ML CUP PO SCH (10:06)
[2016-07-11] MEDS: FERROUS SULFATE 325 MG (65 MG ELEMENTAL IRON) TAB PO SCH (10:06)
[2016-07-11] MEDS: FAMOTIDINE 20 MG TAB PO SCH ×2 (10:07→21:12)
[2016-07-11] MEDS: SELENIUM SULFIDE 2.5% LOTION 120 ML BTL TOPICAL SCH (10:07)
[2016-07-11] MEDS: ATORVASTATIN 40 MG TAB PO SCH (10:07)
[2016-07-11] MEDS: QUEtiapine FUMARATE 100 MG TAB PO SCH ×2 (10:07→21:12)
[2016-07-11] MEDS: EUCERIN CREAM 120 GM JAR TOPICAL SCH ×2 (10:08→21:13)
[2016-07-11] MEDS ORDERED: WARFARIN SOD 2.5 MG TAB PO ONE (16:00)
[2016-07-11 20:00] VITALS: BP 123/90; PULSE 82; RESP 20; TEMP 98.5; O2SAT 98
[2016-07-11] MEDS: ISOSORBIDE MONONITRATE 60 MG TAB PO SCH (21:12)
[2016-07-11] MEDS: WARFARIN SOD 5 MG TAB PO SCH (21:12)
[2016-07-12 08:00] VITALS: BP 136/79; PULSE 84; RESP 19; TEMP 97.8; O2SAT 96
[2016-07-12] MEDS: SELENIUM SULFIDE 2.5% LOTION 120 ML BTL TOPICAL SCH (08:57)
[2016-07-12] MEDS: ATORVASTATIN 40 MG TAB PO SCH (08:58)
[2016-07-12] MEDS: LACTULOSE SYRUP 20 GM/30 ML CUP PO SCH (08:58)
[2016-07-12] MEDS: FAMOTIDINE 20 MG TAB PO SCH ×2 (08:58→22:05)
[2016-07-12] MEDS: DOCUSATE SODIUM 50 MG/SENNA 8.6 MG TAB PO SCH ×2 (08:58→22:04)
[2016-07-12] MEDS: POLYETHYLENE GLYCOL 17 GM PKG PO SCH (08:58)
[2016-07-12] MEDS: FERROUS SULFATE 325 MG (65 MG ELEMENTAL IRON) TAB PO SCH (08:58)
[2016-07-12] MEDS: EUCERIN CREAM 120 GM JAR TOPICAL SCH ×2 (08:58→22:11)
[2016-07-12] MEDS: CARVEDILOL 12.5 MG TAB PO SCH ×2 (08:59→22:05)
[2016-07-12] MEDS: QUEtiapine FUMARATE 100 MG TAB PO SCH ×2 (08:59→22:03)
--- NOTE | 2016-07-12 14:16 | HHI.PR ---
Subjective Remarks Patient seen and examined today. Patient has any new complaints. Awaiting coagulation stability and outpatient follow-up for discharge Objective Vitals Vital Signs Date Time Temp Pulse Resp B/P Pulse Ox O2 Delivery O2 Flow Rate FiO2 07/12/16 08:00 97.8 84 19 136/79 96 07/11/16 20:00 98.5 82 20 123/90 98 I/O 07/11/16 07/11/16 07/11/16 07/12/16 07/12/16 07/12/16 07:00 15:00 23:00 07:00 15:00 23:00 Intake Total 220 ml 60 ml 60 ml Balance 220 ml 60 ml 60 ml Intake Oral 220 ml 60 ml 60 ml # Voids 1 2 1 1 # Bowel Movements 1 0 1 0 Objective Remarks GENERAL: Well-developed, well-nourished, in no acute distress. Alert and orientated to person HEENT: Head is normocephalic without any lesions or masses noted. Facial features are symmetric. Extraocular muscles are intact. Conjunctivae were clear. NECK: Trachea midline no deviation. CARDIAC: Regular rhythm, regular rate. S1/S2 are heard. No murmurs gallops or rubs. LUNGS: Clear to auscultation bilaterally. No wheeze, rhonchi or rales. No use of accessory muscles on inspiration or expiration. ABDOMEN: Soft, tenderness noted right upper quadrant. Positive rebound. Nondistended. Bowel sounds heard in all 4 quadrants. No organomegaly or masses. EXTREMITIES: No edema, pulses are equal bilaterally. No cyanosis or clubbing. Right below--knee amputation. NEUROLOGY: Mood and affect appear appropriate. Cranial nerves II through XII grossly intact. Moving all extremities, speech is clear Procedures None Urinary Catheter: No Vascular Central Line Catheter: No A/P Assessment and Plan 60-year-old male with admitted 10/14 with acute cortical infarct. Patient remains with significant cognitive deficit. Acute anemia, improved after transfusion stable Status post 2 units packed red blood cells. Hemoccult was negative GI was consulted who recommended the patient undergo endoscopy electively. Continue monitor hemoglobin, hemoglobin has been stable Sepsis, resolved. Patient initially had leukocytosis, low-grade fever. Infectious source was suspected to be cholecystitis Leukocytosis has resolved Blood cultures are negative Chest x-ray was performed which did not indicate any abnormality Change to Cipro/Flagyl finished treatment on 07/09/16 Abdominal pain, right upper quadrant, resolved CT the abdomen shows gallstones with distended gallbladder Abdominal ultrasound indicates gallstones HIDA scan shows signs of acute cholecystitis Consulted general surgery who is following the patient Surgery recommended placement cholecystotomy drain Interventional radiology successfully placed cholecystotomy drain. However, patient removed the drain himself. And drain was not replaced. Bilateral cerebrovascular accident, with Intermittent and persistent cognitive defect -MRI showed acute cortical infarct of the right cerebral peduncle to the pelvis , left thalamus punctate area of infarct -Neurology last seen patient on 11/13/15, recommended long-term anticoagulation -Continue with Statin. -Discontinue Coumadin -Start Eliquis for anticoagulation -Reconsulted PT/OT, patient will require intermittent therapy while he remains in the hospital so he does not decompensate -Out of bed with nursing only. Patient was counseled to not get out of bed on his own. Fall risk due to cognitive deficit -Psychiatry reconsulted 02/17 for evaluation and appreciate recommendations on patient's cognition, agitation -Seroquel 100 mg daily and 150 mg at bedtime Urinary tract infection, resolved Patient asymptomatic, no fever, leukocytosis, signs of infection Urine culture indicates enterococcus faecalis which is resistant to Cipro Finished Macrobid 100 mg twice daily for 10 days Hypertension: Amlodipine 10 mg daily carvedilol 25 bid, Imdur 60 daily Ischemic Cardiomyopathy/chronic systolic CHF LVEF 35% on echo 03/2015. Denies shortness of breath. Compensated. -Continue Coreg, Imdur, enalapril. -Could consider AICD if patient is able to consent, however patient is currently unable to consent -Fluid and sodium restrictions, follow volume status. Chronic kidney disease stage 3/4. Stable -Patient with intermittent worsening due to poor by mouth intake -Avoid nephrotoxins. -Monitor BMP intermittently -Discontinue DIALLO inhibitor due to hyperkalemia Seborrhea dermatitis Status post hydrocortisone cream for 2 weeks Encourage proper hygiene Diabetic mellitus - Glucose was well controlled. All insulin discontinued. -accu-checks discontinued as patient's blood sugar well controlled and Hgb A1c 6.9. -continue diet control Peripheral arterial disease-stable. -Continue anticoagulation Constipation, patient having bowel movement every 2-3 days -Abdominal x-ray 02/16 indicates moderate amount of stool in the colon on the left side. -Milk of magnesia as needed. -MiraLAX, lactulose, Haydee-Colace daily, -Dulcolax as needed DVT prophylaxis - patient on Eliquis Discharge Planning Discharge planning per case management, most reaches documentation 07/07/16 indicates that patient will discharge home with family and home health care. Patient has been converted to Eliquis which should be a little be managed better at home. Appreciate recommendations from case management for outpatient follow-up, primary medical doctor, if home health care has been arranged. Truman Fulton Jul 12, 2016 14:16
[2016-07-12 20:00] VITALS: BP 134/89; PULSE 80; RESP 21; TEMP 98.3; O2SAT 96
[2016-07-12] MEDS ORDERED: WARFARIN SOD 7.5 MG TAB PO ONE (21:00)
[2016-07-12] MEDS: ISOSORBIDE MONONITRATE 60 MG TAB PO SCH (22:04)
[2016-07-12] MEDS: APIXABAN 2.5 MG TABLET PO SCH (22:10)
[2016-07-13 08:00] VITALS: BP 146/96; PULSE 77; RESP 20; TEMP 96; O2SAT 95
[2016-07-13] MEDS: SELENIUM SULFIDE 2.5% LOTION 120 ML BTL TOPICAL SCH (08:04)
[2016-07-13] MEDS: EUCERIN CREAM 120 GM JAR TOPICAL SCH ×2 (08:04→21:51)
[2016-07-13] MEDS: CARVEDILOL 12.5 MG TAB PO SCH ×2 (08:05→21:49)
[2016-07-13] MEDS: FAMOTIDINE 20 MG TAB PO SCH ×2 (08:05→21:49)
[2016-07-13] MEDS: APIXABAN 2.5 MG TABLET PO SCH ×2 (08:05→21:49)
[2016-07-13] MEDS: QUEtiapine FUMARATE 100 MG TAB PO SCH ×2 (08:05→21:50)
[2016-07-13] MEDS: FERROUS SULFATE 325 MG (65 MG ELEMENTAL IRON) TAB PO SCH (08:05)
[2016-07-13] MEDS: LACTULOSE SYRUP 20 GM/30 ML CUP PO SCH (08:05)
[2016-07-13] MEDS: POLYETHYLENE GLYCOL 17 GM PKG PO SCH (08:05)
[2016-07-13] MEDS: ATORVASTATIN 40 MG TAB PO SCH (08:05)
[2016-07-13] MEDS: DOCUSATE SODIUM 50 MG/SENNA 8.6 MG TAB PO SCH ×2 (08:05→21:49)
--- NOTE | 2016-07-13 09:31 | HHI.PR ---
Subjective Remarks Patient seen and examined today. Patient denies any new complaints. No change in clinical status. Objective Vitals Vital Signs Date Time Temp Pulse Resp B/P Pulse Ox O2 Delivery O2 Flow Rate FiO2 07/12/16 20:00 98.3 80 21 134/89 96 I/O 07/12/16 07/12/16 07/12/16 07/13/16 07/13/16 07/13/16 07:00 15:00 23:00 07:00 15:00 23:00 Intake Total 60 ml 240 ml 340 ml 120 ml Output Total 250 ml Balance 60 ml 240 ml 340 ml -130 ml Intake Oral 60 ml 240 ml 340 ml 120 ml Output Urine Total 250 ml # Voids 1 1 1 # Bowel Movements 0 0 0 0 Objective Remarks GENERAL: Well-developed, well-nourished, in no acute distress. Alert and orientated to person HEENT: Head is normocephalic without any lesions or masses noted. Facial features are symmetric. Extraocular muscles are intact. Conjunctivae were clear. NECK: Trachea midline no deviation. CARDIAC: Regular rhythm, regular rate. S1/S2 are heard. No murmurs gallops or rubs. LUNGS: Clear to auscultation bilaterally. No wheeze, rhonchi or rales. No use of accessory muscles on inspiration or expiration. ABDOMEN: Soft, nontender nondistended. Bowel sounds heard in all 4 quadrants. No organomegaly or masses. EXTREMITIES: No edema, pulses are equal bilaterally. No cyanosis or clubbing. Right below--knee amputation. NEUROLOGY: Mood and affect appear appropriate. Cranial nerves II through XII grossly intact. Moving all extremities, speech is clear Procedures None Urinary Catheter: No Vascular Central Line Catheter: No A/P Assessment and Plan 60-year-old male with admitted 10/14 with acute cortical infarct. Patient remains with significant cognitive deficit. Acute anemia, improved after transfusion stable Status post 2 units packed red blood cells. Hemoccult was negative GI was consulted who recommended the patient undergo endoscopy electively. Continue monitor hemoglobin, hemoglobin has been stable Sepsis, resolved. Patient initially had leukocytosis, low-grade fever. Infectious source was suspected to be cholecystitis Leukocytosis has resolved Blood cultures are negative Chest x-ray was performed which did not indicate any abnormality Change to Cipro/Flagyl finished treatment on 07/09/16 Abdominal pain, right upper quadrant, resolved CT the abdomen shows gallstones with distended gallbladder Abdominal ultrasound indicates gallstones HIDA scan shows signs of acute cholecystitis Consulted general surgery who is following the patient Surgery recommended placement cholecystotomy drain Interventional radiology successfully placed cholecystotomy drain. However, patient removed the drain himself. And drain was not replaced. Bilateral cerebrovascular accident, with Intermittent and persistent cognitive defect -MRI showed acute cortical infarct of the right cerebral peduncle to the pelvis , left thalamus punctate area of infarct -Neurology last seen patient on 11/13/15, recommended long-term anticoagulation -Continue with Statin. -Continue Eliquis for anticoagulation -Reconsulted PT/OT, patient will require intermittent therapy while he remains in the hospital so he does not decompensate -Out of bed with nursing only. Patient was counseled to not get out of bed on his own. Fall risk due to cognitive deficit -Psychiatry reconsulted 02/17 for evaluation and appreciate recommendations on patient's cognition, agitation -Seroquel 100 mg daily and 150 mg at bedtime Urinary tract infection, resolved Patient asymptomatic, no fever, leukocytosis, signs of infection Urine culture indicates enterococcus faecalis which is resistant to Cipro Finished Macrobid 100 mg twice daily for 10 days Hypertension: Amlodipine 10 mg daily carvedilol 25 bid, Imdur 60 daily Ischemic Cardiomyopathy/chronic systolic CHF LVEF 35% on echo 03/2015. Denies shortness of breath. Compensated. -Continue Coreg, Imdur, enalapril. -Could consider AICD if patient is able to consent, however patient is currently unable to consent -Fluid and sodium restrictions, follow volume status. Chronic kidney disease stage 3/4. Stable -Patient with intermittent worsening due to poor by mouth intake -Avoid nephrotoxins. -Monitor BMP intermittently -Discontinue DIALLO inhibitor due to hyperkalemia Seborrhea dermatitis Status post hydrocortisone cream for 2 weeks Encourage proper hygiene Diabetic mellitus - Glucose was well controlled. All insulin discontinued. -accu-checks discontinued as patient's blood sugar well controlled and Hgb A1c 6.9. -continue diet control Peripheral arterial disease-stable. -Continue anticoagulation Constipation, patient having bowel movement every 2-3 days -Abdominal x-ray 02/16 indicates moderate amount of stool in the colon on the left side. -Milk of magnesia as needed. -MiraLAX, lactulose, Haydee-Colace daily, -Dulcolax as needed DVT prophylaxis - patient on Eliquis Discharge Planning Discharge planning per case management, most recent documentation 07/07/16 indicates that patient will discharge home with family and home health care. Patient has been converted to Eliquis which should be managed better at home. Appreciate recommendations from case management for outpatient follow-up, primary medical doctor, if home health care has been arranged. Truman Fulton Jul 13, 2016 09:31
[2016-07-13 20:00] VITALS: BP 119/82; PULSE 80; RESP 16; TEMP 98.1; O2SAT 96
[2016-07-13] MEDS ORDERED: WARFARIN SOD 5 MG TAB PO SCH (21:00)
[2016-07-13] MEDS: ISOSORBIDE MONONITRATE 60 MG TAB PO SCH (21:49)
[2016-07-14 08:00] VITALS: BP 134/98; PULSE 73; RESP 20; TEMP 95.6; O2SAT 98
[2016-07-14] MEDS: SELENIUM SULFIDE 2.5% LOTION 120 ML BTL TOPICAL SCH (08:38)
[2016-07-14] MEDS: EUCERIN CREAM 120 GM JAR TOPICAL SCH ×2 (08:40→21:00)
[2016-07-14] MEDS: POLYETHYLENE GLYCOL 17 GM PKG PO SCH (08:41)
[2016-07-14] MEDS: LACTULOSE SYRUP 20 GM/30 ML CUP PO SCH (08:41)
[2016-07-14] MEDS: APIXABAN 2.5 MG TABLET PO SCH ×2 (08:42→21:22)
[2016-07-14] MEDS: ATORVASTATIN 40 MG TAB PO SCH (08:42)
[2016-07-14] MEDS: FERROUS SULFATE 325 MG (65 MG ELEMENTAL IRON) TAB PO SCH (08:43)
[2016-07-14] MEDS: DOCUSATE SODIUM 50 MG/SENNA 8.6 MG TAB PO SCH ×2 (08:43→21:23)
[2016-07-14] MEDS: FAMOTIDINE 20 MG TAB PO SCH ×2 (08:43→21:23)
[2016-07-14] MEDS: QUEtiapine FUMARATE 100 MG TAB PO SCH ×2 (08:43→21:21)
[2016-07-14] MEDS: CARVEDILOL 12.5 MG TAB PO SCH ×2 (08:53→21:23)
--- NOTE | 2016-07-14 12:30 | HHI.PR ---
Subjective Subjective Notes Resting in bed Reports no abdominal pain Objective Vitals/I&O Vital Signs Date Time Temp Pulse Resp B/P Pulse Ox O2 Delivery O2 Flow Rate FiO2 07/14/16 08:00 95.6 73 20 134/98 98 Cardiovascular: Regular Lungs: Clear Abdomen: Non-distended, Non-tender Extremities: No edema A/P Assessment and Plan 61 year old male with multiple medical problems now with abdominal pain -Abdominal pain resolved -Tolerating regular diet -GS will sign off -Patient is a poor surgical candidate due to other medical problems -Discussed with Dr. Panchal Attending Statement patient seen at bedside no abdominal pain non operative management will s/o reconsult if needed Attestation The exam, history, and the medical decision-making described in the above note were completed with the assistance of the mid-level provider. I reviewed and agree with the findings presented. I attest that I had a pffs-ve-vaue encounter with the patient on the same day, and personally performed and documented my assessment and findings in the medical record. Jennifer Kelley Jul 14, 2016 12:30 Gagandeep Panchal MD Jul 17, 2016 21:40
[2016-07-14] MEDS ORDERED: WHEEMIS3 (14:04)
--- NOTE | 2016-07-14 14:08 | HHI.PR ---
Subjective Remarks Patient seen and examined today. Patient denies any new complaints. Nursing staff indicates patient has developed a rash in his right armpit. Objective Vitals Vital Signs Date Time Temp Pulse Resp B/P Pulse Ox O2 Delivery O2 Flow Rate FiO2 07/14/16 08:00 95.6 73 20 134/98 98 07/13/16 20:00 98.1 80 16 119/82 96 I/O 07/13/16 07/13/16 07/13/16 07/14/16 07/14/16 07/14/16 07:00 15:00 23:00 07:00 15:00 23:00 Intake Total 120 ml 120 ml 120 ml Output Total 250 ml 350 ml 0 ml Balance -130 ml -230 ml 120 ml Intake Oral 120 ml 120 ml 120 ml Output Urine Total 250 ml 350 ml 0 ml # Voids 1 # Bowel Movements 0 0 0 Objective Remarks GENERAL: Well-developed, well-nourished, in no acute distress. Alert and orientated to person HEENT: Head is normocephalic without any lesions or masses noted. Facial features are symmetric. Extraocular muscles are intact. Conjunctivae were clear. NECK: Trachea midline no deviation. CARDIAC: Regular rhythm, regular rate. S1/S2 are heard. No murmurs gallops or rubs. LUNGS: Clear to auscultation bilaterally. No wheeze, rhonchi or rales. No use of accessory muscles on inspiration or expiration. ABDOMEN: Soft, nontender nondistended. Bowel sounds heard in all 4 quadrants. No organomegaly or masses. EXTREMITIES: No edema, pulses are equal bilaterally. No cyanosis or clubbing. Right below--knee amputation. NEUROLOGY: Mood and affect appear appropriate. Cranial nerves II through XII grossly intact. Moving all extremities, speech is clear Procedures None Urinary Catheter: No Vascular Central Line Catheter: No A/P Assessment and Plan 60-year-old male with admitted 10/14 with acute cortical infarct. Patient remains with significant cognitive deficit. Acute anemia, improved after transfusion stable Status post 2 units packed red blood cells. Hemoccult was negative GI was consulted who recommended the patient undergo endoscopy electively. Continue monitor hemoglobin, hemoglobin has been stable Sepsis, resolved. Patient initially had leukocytosis, low-grade fever. Infectious source was suspected to be cholecystitis Leukocytosis has resolved Blood cultures are negative Chest x-ray was performed which did not indicate any abnormality Change to Cipro/Flagyl finished treatment on 07/09/16 Abdominal pain, right upper quadrant, resolved CT the abdomen shows gallstones with distended gallbladder Abdominal ultrasound indicates gallstones HIDA scan shows signs of acute cholecystitis Consulted general surgery who is following the patient Surgery recommended placement cholecystotomy drain Interventional radiology successfully placed cholecystotomy drain. However, patient removed the drain himself. And drain was not replaced. Bilateral cerebrovascular accident, with Intermittent and persistent cognitive defect -MRI showed acute cortical infarct of the right cerebral peduncle to the pelvis , left thalamus punctate area of infarct -Neurology last seen patient on 11/13/15, recommended long-term anticoagulation -Continue with Statin. -Continue Eliquis for anticoagulation -Reconsulted PT/OT, patient will require intermittent therapy while he remains in the hospital so he does not decompensate -Out of bed with nursing only. Patient was counseled to not get out of bed on his own. Fall risk due to cognitive deficit -Psychiatry reconsulted 02/17 for evaluation and appreciate recommendations on patient's cognition, agitation -Seroquel 100 mg daily and 150 mg at bedtime Tinea corporis and right armpit: Use nystatin powder as needed Urinary tract infection, resolved Patient asymptomatic, no fever, leukocytosis, signs of infection Urine culture indicates enterococcus faecalis which is resistant to Cipro Finished Macrobid 100 mg twice daily for 10 days Hypertension: Amlodipine 10 mg daily carvedilol 25 bid, Imdur 60 daily Ischemic Cardiomyopathy/chronic systolic CHF LVEF 35% on echo 03/2015. Denies shortness of breath. Compensated. -Continue Coreg, Imdur, enalapril. -Could consider AICD if patient is able to consent, however patient is currently unable to consent -Fluid and sodium restrictions, follow volume status. Chronic kidney disease stage 3/4. Stable -Patient with intermittent worsening due to poor by mouth intake -Avoid nephrotoxins. -Monitor BMP intermittently -Discontinue DIALLO inhibitor due to hyperkalemia Seborrhea dermatitis Status post hydrocortisone cream for 2 weeks Encourage proper hygiene Diabetic mellitus - Glucose was well controlled. All insulin discontinued. -accu-checks discontinued as patient's blood sugar well controlled and Hgb A1c 6.9. -continue diet control Peripheral arterial disease-stable. -Continue anticoagulation Constipation, patient having bowel movement every 2-3 days -Abdominal x-ray 02/16 indicates moderate amount of stool in the colon on the left side. -Milk of magnesia as needed. -MiraLAX, lactulose, Haydee-Colace daily, -Dulcolax as needed DVT prophylaxis - patient on Eliquis Discharge Planning Discharge planning per case management, most recent documentation 07/07/16 indicates that patient will discharge home with family and home health care. Patient has been converted to Eliquis which should be managed better at home. Prescription for wheelchair has been written to facilitate discharge home with home health care. Truman Fulton Jul 14, 2016 14:08
[2016-07-14 20:00] VITALS: BP 95/69; PULSE 82; RESP 18; TEMP 97.4; O2SAT 96
[2016-07-14] MEDS: ISOSORBIDE MONONITRATE 60 MG TAB PO SCH (21:21)
[2016-07-15 08:00] VITALS: BP 130/80; PULSE 80; RESP 18; TEMP 97.8; O2SAT 95
[2016-07-15] MEDS: POLYETHYLENE GLYCOL 17 GM PKG PO SCH (09:00)
[2016-07-15] MEDS: DOCUSATE SODIUM 50 MG/SENNA 8.6 MG TAB PO SCH ×2 (09:02→21:00)
[2016-07-15] MEDS: FAMOTIDINE 20 MG TAB PO SCH ×2 (09:02→21:24)
[2016-07-15] MEDS: QUEtiapine FUMARATE 100 MG TAB PO SCH ×2 (09:02→21:21)
[2016-07-15] MEDS: FERROUS SULFATE 325 MG (65 MG ELEMENTAL IRON) TAB PO SCH (09:02)
[2016-07-15] MEDS: CARVEDILOL 12.5 MG TAB PO SCH ×2 (09:02→21:24)
[2016-07-15] MEDS: ATORVASTATIN 40 MG TAB PO SCH (09:02)
[2016-07-15] MEDS: EUCERIN CREAM 120 GM JAR TOPICAL SCH ×2 (09:03→21:00)
[2016-07-15] MEDS: LACTULOSE SYRUP 20 GM/30 ML CUP PO SCH (09:03)
[2016-07-15] MEDS: APIXABAN 2.5 MG TABLET PO SCH ×2 (09:03→21:21)
[2016-07-15] MEDS: SELENIUM SULFIDE 2.5% LOTION 120 ML BTL TOPICAL SCH (09:03)
[2016-07-15] MEDS ORDERED: WHEEMIS3 (11:09)
[2016-07-15] MEDS ORDERED: AMLO10 PO (11:18)
[2016-07-15] MEDS ORDERED: APIX2.5T PO (11:18)
[2016-07-15] MEDS ORDERED: LIPI40TA PO (11:18)
--- NOTE | 2016-07-15 14:09 | HHI.PR ---
Subjective Remarks Patient seen and examined today. Patient denies any new complaints. No change in clinical status. Objective Vitals Vital Signs Date Time Temp Pulse Resp B/P Pulse Ox O2 Delivery O2 Flow Rate FiO2 07/15/16 08:00 97.8 80 18 130/80 95 07/14/16 20:00 97.4 82 18 95/69 96 I/O 07/14/16 07/14/16 07/14/16 07/15/16 07/15/16 07/15/16 07:00 15:00 23:00 07:00 15:00 23:00 Intake Total 120 ml 24 ml 100 ml Output Total 0 ml Balance 120 ml 24 ml 100 ml Intake Oral 120 ml 24 ml 100 ml Output Urine Total 0 ml # Voids 3 1 # Bowel Movements 0 0 0 Objective Remarks GENERAL: Well-developed, well-nourished, in no acute distress. Alert and orientated to person HEENT: Head is normocephalic without any lesions or masses noted. Facial features are symmetric. Extraocular muscles are intact. Conjunctivae were clear. NECK: Trachea midline no deviation. CARDIAC: Regular rhythm, regular rate. S1/S2 are heard. No murmurs gallops or rubs. LUNGS: Clear to auscultation bilaterally. No wheeze, rhonchi or rales. No use of accessory muscles on inspiration or expiration. ABDOMEN: Soft, nontender nondistended. Bowel sounds heard in all 4 quadrants. No organomegaly or masses. EXTREMITIES: No edema, pulses are equal bilaterally. No cyanosis or clubbing. Right below--knee amputation. NEUROLOGY: Mood and affect appear appropriate. Cranial nerves II through XII grossly intact. Moving all extremities, speech is clear Procedures None Urinary Catheter: No Vascular Central Line Catheter: No A/P Assessment and Plan 60-year-old male with admitted 10/14 with acute cortical infarct. Patient remains with significant cognitive deficit. Acute anemia, improved after transfusion stable Status post 2 units packed red blood cells. Hemoccult was negative GI was consulted who recommended the patient undergo endoscopy electively. Continue monitor hemoglobin, hemoglobin has been stable Sepsis, resolved. Patient initially had leukocytosis, low-grade fever. Infectious source was suspected to be cholecystitis Leukocytosis has resolved Blood cultures are negative Chest x-ray was performed which did not indicate any abnormality Change to Cipro/Flagyl finished treatment on 07/09/16 Abdominal pain, right upper quadrant, resolved CT the abdomen shows gallstones with distended gallbladder Abdominal ultrasound indicates gallstones HIDA scan shows signs of acute cholecystitis Consulted general surgery who is following the patient Surgery recommended placement cholecystotomy drain Interventional radiology successfully placed cholecystotomy drain. However, patient removed the drain himself. And drain was not replaced. Bilateral cerebrovascular accident, with Intermittent and persistent cognitive defect -MRI showed acute cortical infarct of the right cerebral peduncle to the pelvis , left thalamus punctate area of infarct -Neurology last seen patient on 11/13/15, recommended long-term anticoagulation -Continue with Statin. -Continue Eliquis for anticoagulation -Reconsulted PT/OT, patient will require intermittent therapy while he remains in the hospital so he does not decompensate -Out of bed with nursing only. Patient was counseled to not get out of bed on his own. Fall risk due to cognitive deficit -Psychiatry reconsulted 02/17 for evaluation and appreciate recommendations on patient's cognition, agitation -Seroquel 100 mg daily and 150 mg at bedtime Tinea corporis and right armpit: Use nystatin powder as needed Urinary tract infection, resolved Patient asymptomatic, no fever, leukocytosis, signs of infection Urine culture indicates enterococcus faecalis which is resistant to Cipro Finished Macrobid 100 mg twice daily for 10 days Hypertension: Amlodipine 10 mg daily carvedilol 25 bid, Imdur 60 daily Ischemic Cardiomyopathy/chronic systolic CHF LVEF 35% on echo 03/2015. Denies shortness of breath. Compensated. -Continue Coreg, Imdur, enalapril. -Could consider AICD if patient is able to consent, however patient is currently unable to consent -Fluid and sodium restrictions, follow volume status. Chronic kidney disease stage 3/4. Stable -Patient with intermittent worsening due to poor by mouth intake -Avoid nephrotoxins. -Monitor BMP intermittently -Discontinue DIALLO inhibitor due to hyperkalemia Seborrhea dermatitis Status post hydrocortisone cream for 2 weeks Encourage proper hygiene Diabetic mellitus - Glucose was well controlled. All insulin discontinued. -accu-checks discontinued as patient's blood sugar well controlled and Hgb A1c 6.9. -continue diet control Peripheral arterial disease-stable. -Continue anticoagulation Constipation, patient having bowel movement every 2-3 days -Abdominal x-ray 02/16 indicates moderate amount of stool in the colon on the left side. -Milk of magnesia as needed. -MiraLAX, lactulose, Haydee-Colace daily, -Dulcolax as needed DVT prophylaxis - patient on Eliquis Discharge Planning Discharge planning per case management, most recent documentation 07/07/16 indicates that patient will discharge home with family and home health care. Patient has been converted to Eliquis which should be managed better at home. Prescription for wheelchair has been written to facilitate discharge home with home health care. Truman Fulton Jul 15, 2016 14:09
[2016-07-15 20:00] VITALS: BP 149/94; PULSE 87; RESP 16; TEMP 98.2; O2SAT 95
[2016-07-15] MEDS: ISOSORBIDE MONONITRATE 60 MG TAB PO SCH (21:24)
[2016-07-16 08:00] VITALS: BP 138/99; PULSE 78; RESP 20; TEMP 96; O2SAT 96
[2016-07-16] MEDS: CARVEDILOL 12.5 MG TAB PO SCH ×2 (08:12→23:15)
[2016-07-16] MEDS: QUEtiapine FUMARATE 100 MG TAB PO SCH ×2 (08:12→23:15)
[2016-07-16] MEDS: POLYETHYLENE GLYCOL 17 GM PKG PO SCH (08:12)
[2016-07-16] MEDS: FERROUS SULFATE 325 MG (65 MG ELEMENTAL IRON) TAB PO SCH (08:12)
[2016-07-16] MEDS: APIXABAN 2.5 MG TABLET PO SCH ×2 (08:12→23:15)
[2016-07-16] MEDS: EUCERIN CREAM 120 GM JAR TOPICAL SCH ×2 (08:13→23:17)
[2016-07-16] MEDS: ATORVASTATIN 40 MG TAB PO SCH (08:13)
[2016-07-16] MEDS: FAMOTIDINE 20 MG TAB PO SCH ×2 (08:13→23:15)
[2016-07-16] MEDS: DOCUSATE SODIUM 50 MG/SENNA 8.6 MG TAB PO SCH ×2 (08:13→23:15)
[2016-07-16] MEDS: SELENIUM SULFIDE 2.5% LOTION 120 ML BTL TOPICAL SCH (08:14)
[2016-07-16] MEDS: LACTULOSE SYRUP 20 GM/30 ML CUP PO SCH (08:14)
--- NOTE | 2016-07-16 13:35 | HHI.PR ---
Subjective Remarks Patient seen and examined today. Patient denies any new complaints. No change in clinical status. Objective Vitals Vital Signs Date Time Temp Pulse Resp B/P Pulse Ox O2 Delivery O2 Flow Rate FiO2 07/16/16 08:00 96.0 78 20 138/99 96 07/15/16 20:00 98.2 87 16 149/94 95 I/O 07/15/16 07/15/16 07/15/16 07/16/16 07/16/16 07/16/16 07:00 15:00 23:00 07:00 15:00 23:00 Intake Total 100 ml 250 ml 180 ml 0 ml 240 ml Output Total 0 ml Balance 100 ml 250 ml 180 ml 0 ml 240 ml Intake Oral 100 ml 250 ml 180 ml 0 ml 240 ml Output Urine Total 0 ml # Voids 1 1 1 # Bowel Movements 0 0 Objective Remarks GENERAL: Well-developed, well-nourished, in no acute distress. Alert and orientated to person HEENT: Head is normocephalic without any lesions or masses noted. Facial features are symmetric. Extraocular muscles are intact. Conjunctivae were clear. NECK: Trachea midline no deviation. CARDIAC: Regular rhythm, regular rate. S1/S2 are heard. No murmurs gallops or rubs. LUNGS: Clear to auscultation bilaterally. No wheeze, rhonchi or rales. No use of accessory muscles on inspiration or expiration. ABDOMEN: Soft, nontender nondistended. Bowel sounds heard in all 4 quadrants. No organomegaly or masses. EXTREMITIES: No edema, pulses are equal bilaterally. No cyanosis or clubbing. Right below--knee amputation. NEUROLOGY: Mood and affect appear appropriate. Cranial nerves II through XII grossly intact. Moving all extremities, speech is clear Procedures None Urinary Catheter: No Vascular Central Line Catheter: No A/P Assessment and Plan 60-year-old male with admitted 10/14 with acute cortical infarct. Patient remains with significant cognitive deficit. Acute anemia, improved after transfusion stable Status post 2 units packed red blood cells. Hemoccult was negative GI was consulted who recommended the patient undergo endoscopy electively. Continue monitor hemoglobin, hemoglobin has been stable Sepsis, resolved. Patient initially had leukocytosis, low-grade fever. Infectious source was suspected to be cholecystitis Leukocytosis has resolved Blood cultures are negative Chest x-ray was performed which did not indicate any abnormality Change to Cipro/Flagyl finished treatment on 07/09/16 Abdominal pain, right upper quadrant, resolved CT the abdomen shows gallstones with distended gallbladder Abdominal ultrasound indicates gallstones HIDA scan shows signs of acute cholecystitis Consulted general surgery who is following the patient Surgery recommended placement cholecystotomy drain Interventional radiology successfully placed cholecystotomy drain. However, patient removed the drain himself. And drain was not replaced. Bilateral cerebrovascular accident, with Intermittent and persistent cognitive defect -MRI showed acute cortical infarct of the right cerebral peduncle to the pelvis , left thalamus punctate area of infarct -Neurology last seen patient on 11/13/15, recommended long-term anticoagulation -Continue with Statin. -Continue Eliquis for anticoagulation -Reconsulted PT/OT, patient will require intermittent therapy while he remains in the hospital so he does not decompensate -Out of bed with nursing only. Patient was counseled to not get out of bed on his own. Fall risk due to cognitive deficit -Psychiatry reconsulted 02/17 for evaluation and appreciate recommendations on patient's cognition, agitation -Seroquel 100 mg daily and 150 mg at bedtime Tinea corporis and right armpit: Use nystatin powder as needed Urinary tract infection, resolved Patient asymptomatic, no fever, leukocytosis, signs of infection Urine culture indicates enterococcus faecalis which is resistant to Cipro Finished Macrobid 100 mg twice daily for 10 days Hypertension: Amlodipine 10 mg daily carvedilol 25 bid, Imdur 60 daily Ischemic Cardiomyopathy/chronic systolic CHF LVEF 35% on echo 03/2015. Denies shortness of breath. Compensated. -Continue Coreg, Imdur, enalapril. -Could consider AICD if patient is able to consent, however patient is currently unable to consent -Fluid and sodium restrictions, follow volume status. Chronic kidney disease stage 3/4. Stable -Patient with intermittent worsening due to poor by mouth intake -Avoid nephrotoxins. -Monitor BMP intermittently -Discontinue DIALLO inhibitor due to hyperkalemia Seborrhea dermatitis Status post hydrocortisone cream for 2 weeks Encourage proper hygiene Diabetic mellitus - Glucose was well controlled. All insulin discontinued. -accu-checks discontinued as patient's blood sugar well controlled and Hgb A1c 6.9. -continue diet control Peripheral arterial disease-stable. -Continue anticoagulation Constipation, patient having bowel movement every 2-3 days -Abdominal x-ray 10/19 indicates moderate amount of stool in the colon on the left side. -Milk of magnesia as needed. -MiraLAX, lactulose, Haydee-Colace daily, -Dulcolax as needed DVT prophylaxis - patient on Eliquis Discharge Planning Discharge planning per case management, most recent documentation 07/07/16 indicates that patient will discharge home with family and home health care. Patient has been converted to Eliquis which should be managed better at home. Prescription for wheelchair has been written to facilitate discharge home with home health care. As indicated by case management yesterday that the patient had everything in place for discharge home with wheelchair. Wheelchair is in the room. However nursing staff is still waiting for case management to authorize discharge Truman Fulton Jul 16, 2016 13:35
[2016-07-16 20:00] VITALS: BP 112/73; PULSE 83; RESP 20; TEMP 97.8; O2SAT 97
[2016-07-16] MEDS: ISOSORBIDE MONONITRATE 60 MG TAB PO SCH (23:15)
[2016-07-17 08:00] VITALS: BP 131/96; PULSE 80; RESP 18; TEMP 96.2; O2SAT 96
[2016-07-17] MEDS: LACTULOSE SYRUP 20 GM/30 ML CUP PO SCH (08:52)
[2016-07-17] MEDS: ATORVASTATIN 40 MG TAB PO SCH (08:52)
[2016-07-17] MEDS: POLYETHYLENE GLYCOL 17 GM PKG PO SCH (08:52)
[2016-07-17] MEDS: FAMOTIDINE 20 MG TAB PO SCH ×2 (08:52→20:40)
[2016-07-17] MEDS: QUEtiapine FUMARATE 100 MG TAB PO SCH ×2 (08:52→20:40)
[2016-07-17] MEDS: APIXABAN 2.5 MG TABLET PO SCH ×2 (08:53→20:40)
[2016-07-17] MEDS: FERROUS SULFATE 325 MG (65 MG ELEMENTAL IRON) TAB PO SCH (08:53)
[2016-07-17] MEDS: CARVEDILOL 12.5 MG TAB PO SCH ×2 (08:53→20:40)
[2016-07-17] MEDS: DOCUSATE SODIUM 50 MG/SENNA 8.6 MG TAB PO SCH ×2 (08:53→20:40)
[2016-07-17] MEDS: SELENIUM SULFIDE 2.5% LOTION 120 ML BTL TOPICAL SCH (09:00)
[2016-07-17] MEDS: EUCERIN CREAM 120 GM JAR TOPICAL SCH ×2 (09:00→20:42)
--- NOTE | 2016-07-17 09:40 | HHI.PR ---
Subjective Remarks Patient seen and examined today. Patient denies any new complaints. Awaiting case management for discharge planning. Objective Vitals Vital Signs Date Time Temp Pulse Resp B/P Pulse Ox O2 Delivery O2 Flow Rate FiO2 07/17/16 08:00 96.2 80 18 131/96 96 07/16/16 20:00 97.8 83 20 112/73 97 I/O 07/16/16 07/16/16 07/16/16 07/17/16 07/17/16 07/17/16 07:00 15:00 23:00 07:00 15:00 23:00 Intake Total 0 ml 240 ml 240 ml 240 ml Output Total 0 ml Balance 0 ml 240 ml 240 ml 240 ml Intake Oral 0 ml 240 ml 240 ml Oral Supplement 240 ml IV Total 0 ml 0 ml Output Urine Total 0 ml # Voids 1 1 1 # Bowel Movements 0 0 0 Objective Remarks GENERAL: Well-developed, well-nourished, in no acute distress. Alert and orientated to person HEENT: Head is normocephalic without any lesions or masses noted. Facial features are symmetric. Extraocular muscles are intact. Conjunctivae were clear. NECK: Trachea midline no deviation. CARDIAC: Regular rhythm, regular rate. S1/S2 are heard. No murmurs gallops or rubs. LUNGS: Clear to auscultation bilaterally. No wheeze, rhonchi or rales. No use of accessory muscles on inspiration or expiration. ABDOMEN: Soft, nontender nondistended. Bowel sounds heard in all 4 quadrants. No organomegaly or masses. EXTREMITIES: No edema, pulses are equal bilaterally. No cyanosis or clubbing. Right below--knee amputation. NEUROLOGY: Mood and affect appear appropriate. Cranial nerves II through XII grossly intact. Moving all extremities, speech is clear Procedures None Urinary Catheter: No Vascular Central Line Catheter: No A/P Assessment and Plan 60-year-old male with admitted 10/14 with acute cortical infarct. Patient remains with significant cognitive deficit. Acute anemia, improved after transfusion stable Status post 2 units packed red blood cells. Hemoccult was negative GI was consulted who recommended the patient undergo endoscopy electively. Continue monitor hemoglobin, hemoglobin has been stable Sepsis, resolved. Patient initially had leukocytosis, low-grade fever. Infectious source was suspected to be cholecystitis Leukocytosis has resolved Blood cultures are negative Chest x-ray was performed which did not indicate any abnormality Change to Cipro/Flagyl finished treatment on 07/09/16 Abdominal pain, right upper quadrant, resolved CT the abdomen shows gallstones with distended gallbladder Abdominal ultrasound indicates gallstones HIDA scan shows signs of acute cholecystitis Consulted general surgery who is following the patient Surgery recommended placement cholecystotomy drain Interventional radiology successfully placed cholecystotomy drain. However, patient removed the drain himself. And drain was not replaced. Bilateral cerebrovascular accident, with Intermittent and persistent cognitive defect -MRI showed acute cortical infarct of the right cerebral peduncle to the pelvis , left thalamus punctate area of infarct -Neurology last seen patient on 11/13/15, recommended long-term anticoagulation -Continue with Statin. -Continue Eliquis for anticoagulation -Reconsulted PT/OT, patient will require intermittent therapy while he remains in the hospital so he does not decompensate -Out of bed with nursing only. Patient was counseled to not get out of bed on his own. Fall risk due to cognitive deficit -Psychiatry reconsulted 02/17 for evaluation and appreciate recommendations on patient's cognition, agitation -Seroquel 100 mg daily and 150 mg at bedtime Tinea corporis and right armpit: Use nystatin powder as needed Urinary tract infection, resolved Patient asymptomatic, no fever, leukocytosis, signs of infection Urine culture indicates enterococcus faecalis which is resistant to Cipro Finished Macrobid 100 mg twice daily for 10 days Hypertension: Amlodipine 10 mg daily carvedilol 25 bid, Imdur 60 daily Ischemic Cardiomyopathy/chronic systolic CHF LVEF 35% on echo 03/2015. Denies shortness of breath. Compensated. -Continue Coreg, Imdur, enalapril. -Could consider AICD if patient is able to consent, however patient is currently unable to consent -Fluid and sodium restrictions, follow volume status. Chronic kidney disease stage 3/4. Stable -Patient with intermittent worsening due to poor by mouth intake -Avoid nephrotoxins. -Monitor BMP intermittently -Discontinue DIALLO inhibitor due to hyperkalemia Seborrhea dermatitis Status post hydrocortisone cream for 2 weeks Encourage proper hygiene Diabetic mellitus - Glucose was well controlled. All insulin discontinued. -accu-checks discontinued as patient's blood sugar well controlled and Hgb A1c 6.9. -continue diet control Peripheral arterial disease-stable. -Continue anticoagulation Constipation, patient having bowel movement every 2-3 days -Abdominal x-ray 02/16 indicates moderate amount of stool in the colon on the left side. -Milk of magnesia as needed. -MiraLAX, lactulose, Haydee-Colace daily, -Dulcolax as needed DVT prophylaxis - patient on Eliquis Discharge Planning Discharge planning per case management, most recent documentation 07/07/16 indicates that patient will discharge home with family and home health care. Patient has been converted to Eliquis which should be managed better at home. Prescription for wheelchair has been written to facilitate discharge home with home health care. As indicated by case management yesterday that the patient had everything in place for discharge home with wheelchair. Wheelchair is in the room. However nursing staff is still waiting for case management to authorize discharge Truman Fulton Jul 17, 2016 09:40
[2016-07-17 20:00] VITALS: BP 139/93; PULSE 79; RESP 16; TEMP 96.6; O2SAT 98
[2016-07-17] MEDS: ISOSORBIDE MONONITRATE 60 MG TAB PO SCH (20:40)
[2016-07-18 08:00] VITALS: BP 133/78; PULSE 78; RESP 18; TEMP 98; O2SAT 95
[2016-07-18] MEDS: CARVEDILOL 12.5 MG TAB PO SCH (08:50)
[2016-07-18] MEDS: DOCUSATE SODIUM 50 MG/SENNA 8.6 MG TAB PO SCH (08:50)
[2016-07-18] MEDS: LACTULOSE SYRUP 20 GM/30 ML CUP PO SCH (08:50)
[2016-07-18] MEDS: APIXABAN 2.5 MG TABLET PO SCH (08:50)
[2016-07-18] MEDS: ATORVASTATIN 40 MG TAB PO SCH (08:50)
[2016-07-18] MEDS: POLYETHYLENE GLYCOL 17 GM PKG PO SCH (08:50)
[2016-07-18] MEDS: FERROUS SULFATE 325 MG (65 MG ELEMENTAL IRON) TAB PO SCH (08:50)
[2016-07-18] MEDS: QUEtiapine FUMARATE 100 MG TAB PO SCH (08:50)
[2016-07-18] MEDS: SELENIUM SULFIDE 2.5% LOTION 120 ML BTL TOPICAL SCH (08:51)
[2016-07-18] MEDS: FAMOTIDINE 20 MG TAB PO SCH (08:51)
[2016-07-18] MEDS: EUCERIN CREAM 120 GM JAR TOPICAL SCH (08:51)
--- NOTE | 2016-07-18 11:39 | HHI.DS ---
Discharge Summary Admission Date Oct 15, 2015 at 23:15 Discharge Date: Jul 18, 2016 Admitting Diagnosis mild rabdo, elevated troponin, generalized weakness, fall (1) Anemia ICD Code: D64.9 (2) Sepsis ICD Code: A41.9 (3) Abdominal pain ICD Code: R10.9 (4) LFT elevation ICD Code: R94.5 (5) Acute kidney injury superimposed on CKD ICD Code: N17.9 (6) CVA (cerebral vascular accident) ICD Code: I63.9 Procedures None Brief History - From Admission Mr. Amado is a 60 year old male with a history of ischemic cardiomyopathy (EF 35-40%), CABG, stent placement who was found on the floor by family members and subsequently brought to the ED for altered mental status. GCS 14 on arrival, improved to 15 with oxygen and IV fluids. Per EMS, patient's living condition at home is very poor. Patient is alert, oriented to self and place. He is unable to give any meaningful history. He denies any chest pain, SOB, fever, chills. On arrival, BP 162/108, RR 18, Pulse 96, T 97.8, 96-98% saturation on 2L of O2 via nasal cannula. CBC shows wbc 10, Hgb 10.3, Hct 32.4, Plt 168. BMP shows Na 147, K+ 3.8, BUN 22, Creatinine 1.78, Glucose 157, CPK 883, troponin 0.13. Head CT was unremarkable for acute findings. Cardiac history: - 12/18/2014 cardiac catheter status post stent placement 2.512 mm to proximal left circumflex - 04/30/2015 Echocardiogram EF 35-40% diffuse hypokinesis area Imaging Last Impressions Chest X-Ray 06/26/16 0000 Signed Impressions: Service Date/Time: Sunday, June 26, 2016 08:51 - CONCLUSION: No evidence of acute cardiopulmonary disease. Camacoh Lyon MD Hepatobiliary Scan Nuclear Medicine 06/16/16 0600 Signed Impressions: Service Date/Time: June 08:23 - CONCLUSION: 1. Scintigraphic findings concerning for acute cholecystitis with nonvisualization of the gallbladder lumen. 2. Single episode of biliary enteric reflux. 3. Normal excretion of radiotracer through the extrahepatic tree into the small bowel. Sameer Alexandra MD ADDENDUM: A 20 hour delay shows activity in the expected location of the colon. No residual activity in the liver. Nonvisualization of the gallbladder. Conclusion remains unchanged. Sameer Alexandra MD Gall Bladder Ultrasound 06/13/16 0600 Signed Impressions: Service Date/Time: Monday, June 13, 2016 07:57 - CONCLUSION: Multiple gallstones without tenderness over the gallbladder. Didier Clay MD FACR Abdomen/Pelvis CT 06/11/16 0932 Signed Impressions: Service Date/Time: Saturday, June 11, 2016 13:19 - CONCLUSION: 1. Distended gallbladder containing multiple gallstones. 2. Diverticulosis without diverticulitis. Jakub Chandra MD Head CT 06/09/16 0000 Signed Impressions: Service Date/Time: June 16:11 - CONCLUSION: 1. No acute hemorrhage, mass or acute infarction. 2. Atrophy and old lacunar infarcts. Thiago Heredia MD Abdomen X-Ray 02/17/16 0000 Signed Impressions: Service Date/Time: Wednesday, February 17, 2016 12:13 - CONCLUSION: Moderate amount stool in the colon especially on the left side. There are some minimally prominent segments of small bowel in the upper abdomen. Camacho Santana MD Liver Ultrasound 10/30/15 0000 Signed Impressions: Service Date/Time: Friday, October 30, 2015 17:29 - CONCLUSION: 1. Cholelithiasis with probable gallbladder sludge and mild gallbladder distention. 2. Splenomegaly. Sameer Alexandra MD Modified Barium Swallow 10/27/15 0000 Signed Impressions: Service Date/Time: Tuesday, October 27, 2015 00:00 - CONCLUSION: Negative for penetration or aspiration. Please see speech pathology report. Tai Cohen MD Brain MRI 10/22/15 0000 Signed Impressions: Service Date/Time: September 14:38 - CONCLUSION: 1. No significant interval change is identified. There is stable restricted diffusion in the left basal ganglia representing an area of recent ischemia. There are no findings to indicate hemorrhagic transformation. The previously documented signal change within the right cerebral peduncle has nearly normalized. 2. Stable chronic white matter changes. Camacho Culp MD Neck Magnetic Resonance Angiography 10/21/15 Signed Impressions: Service Date/Time: Wednesday, October 21, 2015 12:52 - CONCLUSION: . 1. Unremarkable MRA of the carotid arteries bilaterally. 2. Nonspecific possible collateral vessels in the soft tissues posterior to the right vertebral artery. The right verbal artery appears to be patent. If clinically indicated, a CTA could be performed for further evaluation. Abiodun Hall MD Head Magnetic Resonance Angiography 10/21/15 Signed Impressions: Service Date/Time: Wednesday, October 21, 2015 12:52 - CONCLUSION: Unremarkable MRA of the brain. Abiodun Hall MD PE at Discharge GENERAL: Well-developed, well-nourished, in no acute distress. Alert and orientated to person HEENT: Head is normocephalic without any lesions or masses noted. Facial features are symmetric. Extraocular muscles are intact. Conjunctivae were clear. NECK: Trachea midline no deviation. CARDIAC: Regular rhythm, regular rate. S1/S2 are heard. No murmurs gallops or rubs. LUNGS: Clear to auscultation bilaterally. No wheeze, rhonchi or rales. No use of accessory muscles on inspiration or expiration. ABDOMEN: Soft, nontender nondistended. Bowel sounds heard in all 4 quadrants. No organomegaly or masses. EXTREMITIES: No edema, pulses are equal bilaterally. No cyanosis or clubbing. Right below--knee amputation. NEUROLOGY: Mood and affect appear appropriate. Cranial nerves II through XII grossly intact. Moving all extremities, speech is clear Hospital Course Acute anemia, improved after transfusion stable Status post 2 units packed red blood cells. Hemoccult was negative GI was consulted who recommended the patient undergo endoscopy electively. Continue monitor hemoglobin, hemoglobin has been stable Sepsis, resolved. Patient initially had leukocytosis, low-grade fever. Infectious source was suspected to be cholecystitis Leukocytosis has resolved Blood cultures are negative Chest x-ray was performed which did not indicate any abnormality Change to Cipro/Flagyl finished treatment on 07/09/16 Abdominal pain, right upper quadrant, resolved CT the abdomen shows gallstones with distended gallbladder Abdominal ultrasound indicates gallstones HIDA scan shows signs of acute cholecystitis Consulted general surgery who is following the patient Surgery recommended placement cholecystotomy drain Interventional radiology successfully placed cholecystotomy drain. However, patient removed the drain himself. And drain was not replaced. Bilateral cerebrovascular accident, with Intermittent and persistent cognitive defect -MRI showed acute cortical infarct of the right cerebral peduncle to the pelvis , left thalamus punctate area of infarct -Neurology last seen patient on 11/13/15, recommended long-term anticoagulation -Continue with Statin. -Continue Eliquis for anticoagulation -Reconsulted PT/OT, patient will require intermittent therapy while he remains in the hospital so he does not decompensate -Out of bed with nursing only. Patient was counseled to not get out of bed on his own. Fall risk due to cognitive deficit -Psychiatry reconsulted 02/17 for evaluation and appreciate recommendations on patient's cognition, agitation -Seroquel 100 mg daily and 150 mg at bedtime Tinea corporis and right armpit: Use nystatin powder as needed Urinary tract infection, resolved Patient asymptomatic, no fever, leukocytosis, signs of infection Urine culture indicates enterococcus faecalis which is resistant to Cipro Finished Macrobid 100 mg twice daily for 10 days Hypertension: Amlodipine 10 mg daily carvedilol 25 bid, Imdur 60 daily Ischemic Cardiomyopathy/chronic systolic CHF LVEF 35% on echo 03/2015. Denies shortness of breath. Compensated. -Continue Coreg, Imdur, enalapril. -Could consider AICD if patient is able to consent, however patient is currently unable to consent -Fluid and sodium restrictions, follow volume status. Chronic kidney disease stage 3/4. Stable -Patient with intermittent worsening due to poor by mouth intake -Avoid nephrotoxins. -Monitor BMP intermittently -Discontinue DIALLO inhibitor due to hyperkalemia Seborrhea dermatitis Status post hydrocortisone cream for 2 weeks Encourage proper hygiene Diabetic mellitus - Glucose was well controlled. All insulin discontinued. -accu-checks discontinued as patient's blood sugar well controlled and Hgb A1c 6.9. -continue diet control Peripheral arterial disease-stable. -Continue anticoagulation Constipation, patient having bowel movement every 2-3 days -Abdominal x-ray 02/16 indicates moderate amount of stool in the colon on the left side. -Milk of magnesia as needed. -MiraLAX, lactulose, Haydee-Colace daily, -Dulcolax as needed Pt Condition on Discharge: Stable Discharge Disposition: Disch w/ Home Health Serv Discharge Time: > 30 minutes Discharge Instructions DIET: Follow Instructions for: Heart Healthy Diet Speech Therapy-Diet Recommends: Mechanical Soft, Chopped Meat w/Gravy Additional Diet Instructions: 2 g of sodium daily Fluid Restrictions: 1.5L/day Activities you can perform: Regular-No Restrictions Activities to Avoid: Driving Follow up Referrals: PCP Follow-up - 1 Week New Medications: Atorvastatin (Atorvastatin) 80 Mg Tab 80 MG PO HS Start on 07/08/16 Cholesterol Management #30 Ref 0 TAB Wheelchair (Wheelchair) 1 Mis Mis 1 EA .ROUTE DIRECTED #1 Ref 0 EA Wheelchair (Wheelchair) 1 Mis Mis 1 EA .ROUTE DIRECTED #1 Ref 0 EA Amlodipine (Norvasc) 10 Mg Tab 10 MG PO DAILY Blood Pressure Management Days 30 TAB Apixaban (Eliquis) 2.5 Mg Tab 2.5 MG PO BID anticoagulation Days 30 TAB Carvedilol (Coreg) 12.5 Mg Tab 25 MG PO BID Blood Pressure Management #30 TAB Famotidine (Famotidine) 20 Mg Tab 20 MG PO BID GI protection #60 TAB Ferrous Sulfate (Ferrous Sulfate) 325 Mg Tab 325 MG PO DAILY@08 Take 1 hour before you take Pepcid in the morning. anemia # 30 TAB Isosorbide Mononitrate ER (Isosorbide Mononitrate ER) 60 Mg Tab 60 MG PO HS Blood Pressure Management #30 TAB Quetiapine (Quetiapine) 100 Mg Tab 150 MG PO HS delirium #45 TAB Quetiapine (Quetiapine) 100 Mg Tab 100 MG PO DAILY delirium #30 TAB Discontinued Medications: Aspirin (Ecotrin) 81 Mg Tabec 81 MG PO DAILY Prevent Blood Clot Days 30 TAB.EC Atorvastatin (Lipitor 80 Mg Tab) 80 Mg Tab 80 MG PO DAILY hlp Days 31 TAB Carvedilol (Coreg) 6.25 Mg Tab 12.5 MG PO Q12HR heart Days 30 TAB Enalapril Maleate (Vasotec 5 Mg Tab) 5 Mg Tab 2.5 MG PO BID Prevent Heart Failure Days 30 TAB Furosemide (Lasix 20 Mg Tab) 20 Mg Tab 20 MG PO BID@09,18 chf Days 31 TAB Insulin Detemir (Levemir) Inj 10 UNITS SQ HS dm2 Days 31 INJECTION Isosorbide Mononitrate (Imdur 60 Mg) 60 Mg Tabcr 60 MG PO DAILY@07 heart Days 30 TAB.SR Magnesium Oxide (Mag-Ox 400 Mg Tab) 400 Mg Tab 400 MG PO Q12HR Electrolyte Replacement Days 30 TAB Potassium Chloride (Kcl 20 Meq Tab) 20 Meq Tabcr 20 MEQ PO BID Electrolyte Replacement Days 30 TAB.SR Truman Fulton Jul 18, 2016 11:39
--- NOTE | 2016-07-18 17:47 | RADHPO ---
EXAM DATE/TIME: 06/17/2016 00:51 [place] COMPARISON: No previous studies available for comparison. INDICATIONS : Patient presents with cholecystitis in need of percutaneous cholecystomy tube placement for drainage. MEDICAL HISTORY : CAD HTN Diabetes CHF PAD Obesity SURGICAL HISTORY : CABG x4 vessel Left kidney stent R BKA Trach as a child ENCOUNTER: Initial ACUITY: 1 day PAIN SCORE: 0/10 LOCATION: n/a FLUORO TIME: 1.0 minutes SEDATION TIME: 60 minutes MEDICATION(S): 1.) 5 mg midazolam (Versed) IV 2.) 250 mcg fentanyl (Sublimaze) IV DEVICE(S): 1.) 8 Algerian 25cm Skater catheter PROCEDURE : 1. ultrasound and fluoroscopic guided cholecystostomy tube placement 2. Conscious sedation with continuous EKG and Oximetry monitoring. The risks, benefits and alternatives to the procedure were explained and verbal and written consent w as obtained. The site was prepped in sterile fashion. Full sterile technique was used, including ca p, mask, sterile gloves and gown and a large sterile sheet. Hand hygiene and 2% chlorhexidine prep w as utilized per protocol for cutaneous antisepsis with appropriate dry time for site. The skin and s ubcutaneous tissues were infiltrated with local anesthetic solution. Ultrasound and fluoroscopic guidance was utilized to access the gallbladder lumen with a micropunctur e needle. The 018 wire was advanced through the needle over which the 3-4 dilator was placed. Through the outer 4 Algerian dilator, 035 wire was coiled in the gallbladder lumen. Tract was serially dilated to accommodate the prescribed catheter. Catheter was placed to according drainage. Catheter was secu red to the skin surface with 2-0 silk suture Conscious sedation was performed with the prescribed dosages and duration as above in the presence of an independent trained radiology nurse to assist in the monitoring of the patient. EKG and oximetry remained stable throughout the procedure. CONCLUSION: Successful ultrasound and fluoroscopic-guided cholecystostomy tube placement as above. Sameer Alexandra MD on July 18, 2016 at 17:43 Board Certified Radiologist. This report was verified electronically.
== END 2016-07-18 12:50 | disposition home health service (06) | DRG 64 ==
LOC: NEPE 21:12 → NEDA 23:15 → N05B 10-16 02:31 → PH3B 02-17 02:00 → PH5A 03-22 13:30 → PH3B 04-15 14:55 → PH5A 04-20 15:13 → PH3B 06-25 14:48 → PH5A 06-27 17:44
PROVIDERS: ADMIT Hospitalist; ATTEND Hospitalist
PROC: 0HBRXZZ Excision of Toe Nail, External Approach (ICD-10-PCS; 2016-04-26)
PROC: 0F9430Z Drainage of Gallbladder with Drainage Device, Percutaneous Approach (ICD-10-PCS; principal; 2016-06-17)
PROC: 30233N1 Transfusion of Nonautologous Red Blood Cells into Peripheral Vein, Percutaneous Approach (ICD-10-PCS; 2016-06-25)
DX: I63.40 Cerebral infarction due to embolism of unspecified cerebral artery (principal); G93.41 Metabolic encephalopathy; A41.9 Sepsis, unspecified organism; I47.2 Ventricular tachycardia; N17.9 Acute kidney failure, unspecified; N18.4 Chronic kidney disease, stage 4 (severe); I50.22 Chronic systolic (congestive) heart failure; I13.0 Hypertensive heart and chronic kidney disease with heart failure and stage 1 through stage 4 chronic kidney disease, or unspecified chronic kidney disease; E87.0 Hyperosmolality and hypernatremia; L03.116 Cellulitis of left lower limb; K80.00 Calculus of gallbladder with acute cholecystitis without obstruction; E87.2 Acidosis; N39.0 Urinary tract infection, site not specified; F05 Delirium due to known physiological condition; M62.82 Rhabdomyolysis; L97.929 Non-pressure chronic ulcer of unspecified part of left lower leg with unspecified severity; E11.22 Type 2 diabetes mellitus with diabetic chronic kidney disease; I25.10 Atherosclerotic heart disease of native coronary artery without angina pectoris; I25.5 Ischemic cardiomyopathy; R47.1 Dysarthria and anarthria; B35.4 Tinea corporis; L21.9 Seborrheic dermatitis, unspecified; B96.89 Other specified bacterial agents as the cause of diseases classified elsewhere; B95.61 Methicillin susceptible Staphylococcus aureus infection as the cause of diseases classified elsewhere; B95.2 Enterococcus as the cause of diseases classified elsewhere; B96.1 Klebsiella pneumoniae [K. pneumoniae] as the cause of diseases classified elsewhere; G47.33 Obstructive sleep apnea (adult) (pediatric); E87.5 Hyperkalemia; D50.9 Iron deficiency anemia, unspecified; K59.00 Constipation, unspecified; B35.1 Tinea unguium; R04.0 Epistaxis; B96.5 Pseudomonas (aeruginosa) (mallei) (pseudomallei) as the cause of diseases classified elsewhere; Z75.1 Person awaiting admission to adequate facility elsewhere; B35.6 Tinea cruris; D63.1 Anemia in chronic kidney disease; R41.89 Other symptoms and signs involving cognitive functions and awareness; D69.6 Thrombocytopenia, unspecified; E11.21 Type 2 diabetes mellitus with diabetic nephropathy; E78.5 Hyperlipidemia, unspecified; I25.2 Old myocardial infarction; K57.30 Diverticulosis of large intestine without perforation or abscess without bleeding; I73.9 Peripheral vascular disease, unspecified; I87.2 Venous insufficiency (chronic) (peripheral); Z95.1 Presence of aortocoronary bypass graft; Z95.5 Presence of coronary angioplasty implant and graft; Z89.511 Acquired absence of right leg below knee; Z91.14 Patient's other noncompliance with medication regimen; Z79.4 Long term (current) use of insulin; Z88.0 Allergy status to penicillin
CPT/HCPCS: 36430; 36600; 47490; 70450; 70544; 70548; 70551; 71010; 74000; 74177; 74230; 76705; 76937; 78226; 80048; 80053; 80061; 80074; 80170; 81001; 82140; 82550; 82552; 82565; 82728; 82805; 82948; 83036; 83540; 83550; 83605; 83690; 83735; 84443; 84484; 85014; 85018; 85025; 85027; 85610; 85730; 86403; 86850; 86900; 86901; 86920; 87040; 87070; 87077; 87086; 87147; 87186; 87205; 93005; 93225; 93226; 93306; 94150; 94640; 94664; 99152; 99153; A9537; A9577; C1729; C1769; C9113; J0360; J0696; J0744; J1580; J1630; J1644; J1650; J1815; J1940; J1956; J2060; J2250; J2270; J3010; J3370; J7030; J7040; J7050; J7613; P9016; P9612; Q9963; Q9967

== ENCOUNTER 2016-07-22 12:20 | Emergency (ER) | payer MEDICAID, OTHER ==
[~2016-07-22] VITALS: Ht 182.9 cm; Wt 82.0 kg
[~2016-07-22 12:20] MED LIST changes: +AMLO10 PO; +APIX2.5T PO; +ATOR1TAB18 PO; -ATOR80TA41 PO; +CARV12.5 PO; -CARV6.25 PO; -CEPH500C3 PO; -CLIN150 PO; -ECASA81 PO; -ENAL5 PO; +FAMO20TA2 PO; +FERR325T PO; -FURO20 PO; -ISOS60 PO; +ISOS60TA PO; -KCL20 PO; -LACT PO; -LEVEMIR SQ; -MAGN400 PO; +QUET1TAB8 PO; -TICA90 PO; +WHEEMIS3
[2016-07-22 12:36] VITALS: BP 140/89; PULSE 86; RESP 16; TEMP 97.9; O2SAT 97
--- NOTE | 2016-07-22 13:04 | PD ---
HPI Chief Complaint: Altered Mental Status Time Seen by Provider: 12:39 Travel History International Travel<30 days: No Contact w/Intl Traveler<30days: No Traveled to known affect area: No History of Present Illness HPI Is a 61-year-old man who presents to the emergency department after he fell out of his wheelchair at home. He had a prolonged hospital stay and just left 4 days ago. He was admitted for multiple medical comorbidities and then had a CVA with persisting cognitive deficits. He went home with [facility]. I spoke to his sister on the phone. Her poorly fell out of his wheelchair and she couldn't get him back up. She called EMS. EMS said that she expressed some concern about being out of take care of him. Their first appointment with [facility] today. He had feces on him at home. He has no other complaints. History Past Medical History Narrative Medical Diabetes CHF/ischemic heart myopathy, EF 30/5/40 percent CAD, CABG Hypertension on hyperlipidemia Diabetes PID Obesity SYLVIA Right BKA CVA with persisting cognitive deficits Social History Alcohol Use: No Tobacco Use: No Allergies-Medications (Allergen,Severity, Reaction): Coded Allergies: Pen-Vee K (Verified Allergy, Severe, THROAT SWELLS, 07/22/16) Penicillin (Verified Allergy, Unknown, SWELLING, 07/22/16) Uncoded Allergies: aspartame (Adverse Reaction, Severe, severe nose bleed, 10/24/13) Reported Meds & Prescriptions Reported Meds & Active Scripts Active Eliquis (Apixaban) 2.5 Mg Tab 2.5 Mg PO BID 30 Days Norvasc (Amlodipine Besylate) 10 Mg Tab 10 Mg PO DAILY 30 Days Wheelchair (Device) 1 Mis Mis 1 Ea .ROUTE DIRECTED Atorvastatin (Atorvastatin Calcium) 80 Mg Tab 80 Mg PO HS Start on 07/08/16 Quetiapine (Quetiapine Fumarate) 100 Mg Tab 100 Mg PO DAILY Quetiapine (Quetiapine Fumarate) 100 Mg Tab 150 Mg PO HS Isosorbide Mononitrate ER (Isosorbide Mononitrate) 60 Mg Tab 60 Mg PO HS Ferrous Sulfate 325 Mg Tab 325 Mg PO DAILY@08 Take 1 hour before you take Pepcid in the morning. Famotidine 20 Mg Tab 20 Mg PO BID Coreg (Carvedilol) 12.5 Mg Tab 25 Mg PO BID Review of Systems Except as stated in HPI: all other systems reviewed are Neg Physical Exam Narrative GENERAL: This 61-year-old man, no acute distress. Awake and alert but not really answering questions. SKIN: Warm and dry. HEAD: Atraumatic. Normocephalic. NECK: Trachea midline. No JVD. CARDIOVASCULAR: Regular rate and rhythm. No murmur appreciated. RESPIRATORY: No accessory muscle use. Clear to auscultation. Breath sounds equal bilaterally. GASTROINTESTINAL: Abdomen soft, non-tender, nondistended. Hepatic and splenic margins not palpable. MUSCULOSKELETAL: No obvious deformities. Right BKA. He has a small scrape on the left ankle. NEUROLOGICAL: Awake and alert. Does not answer any questions. Moves all extremities. Will follow some commands. Data Data Last Documented VS Vital Signs Date Time Temp Pulse Resp B/P Pulse Ox O2 Delivery O2 Flow Rate FiO2 07/22/16 13:35 84 16 117/64 98 Room Air 07/22/16 12:[address] Brain W/O Iv Contrast(Rout) (07/22/16 ) [facility] Medical Decision Making Medical Screen Exam Complete: Yes Emergency Medical Condition: Yes Interpretation(s) CT head: No acute findings Differential Diagnosis Fall, weakness, cut, head injury, other Narrative Course Medical decision making This 61-year-old man who presents to the emergency department brought by EMS at the L4 to of his wheelchair. His care at home is a little bit tenuous right now. He had feces on his backside. He was a little bit dirty. EMS system home conditions were not great. However his first appointment with [facility] s today. I spoke to Ariella, with case management. Reviewed all the case management notes. Reviewed the discharge. Patient is in a difficult situation but the sister is willing to accept him back. There is any increased resources in the home starting today. I don't think there is any reason to readmit him to the hospital. He is outpatient follow-up with a primary physician. Diagnosis Primary Impression: Fall Additional Instructions: Keep outpatient appointment with Dr. Cooney then on December 29. Follow-up with [facility] as discussed. Return to the emergency department for any new or worsening symptoms. Med/Other Pt SpecificInfo: No Change to Meds Disposition: DISCHARGE HOME Condition: Stable Rohan Mera MD Jul 22, 2016 13:04
[2016-07-22 13:35] VITALS: BP 117/64; PULSE 84; RESP 16; O2SAT 98
--- NOTE | 2016-07-22 14:45 | RADHPO ---
EXAM DATE/TIME: 07/22/2016 14:13 [facility] COMPARISON: CT BRAIN W/O CONTRAST, June 09, 2016, 16:11. INDICATIONS : Trauma. Fell out of wheelchair. RADIATION DOSE: 62.70 CTDIvol (mGy) MEDICAL HISTORY : Cerebrovascular disease. Congestive heart failure. Myocardial infarction. Hypertension. SURGICAL HISTORY : CABG ENCOUNTER: Initial ACUITY: 1 day PAIN SCALE: Non-responsive LOCATION: Cranial TECHNIQUE: Multiple contiguous axial images were obtained of the head. Using automated exposure control and adj ustment of the mA and/or kV according to patient size, radiation dose was kept as low as reasonably a chievable to obtain optimal diagnostic quality images. FINDINGS: Scattered old lacunar infarcts are noted within the bilateral basal ganglia. Mild cerebral atrophy is noted. There is no acute hemorrhage, acute infarct, mass effect or extra-axial fluid aniceto ections. The bone windows are unremarkable without evidence of skull fracture. CONCLUSION: 1. Scattered old lacunar infarcts within the bilateral basal ganglia. 2. Mild cerebral atrophy. 3. No acute infarct, acute hemorrhage, mass effect or extra-axial fluid collections. Efren Cleaning MD on July 22, 2016 at 14:37 Board Certified Radiologist. This report was verified electronically.
[2016-07-22 15:40] VITALS: BP 118/64; PULSE 84; RESP 16; O2SAT 98
[2016-07-22 17:01] VITALS: BP 118/68
== END 2016-07-22 17:05 | disposition home or self-care (01) ==
LOC: PHED 12:20
DX: I69.319 Unspecified symptoms and signs involving cognitive functions following cerebral infarction (principal); W05.0XXA Fall from non-moving wheelchair, initial encounter
CPT/HCPCS: 70450

== ENCOUNTER 2016-07-25 16:13 | Inpatient (IN) | payer MEDICAID ==
[~2016-07-25] VITALS: Ht 177.8 cm; Wt 83.6 kg
[2016-07-25 16:40] VITALS: BP 129/94; PULSE 88; RESP 16; TEMP 97.8; O2SAT 98
[2016-07-25] MEDS ORDERED: SODIUM CHLOR 0.9% 1000 ML INJ 1,000 ML IV SCH (16:44)
[2016-07-25] MEDS ORDERED: SODIUM CHLORIDE 0.9% FLUSH 10 ML FLUSH IVF PRN (16:45)
--- NOTE | 2016-07-25 16:54 | PD ---
HPI Chief Complaint: failure to thrive Time Seen by Provider: 16:31 Travel History International Travel<30 days: No Contact w/Intl Traveler<30days: No Traveled to known affect area: No History of Present Illness HPI This patient had a home visit by DCF and they determined that he could not safely stay at this house. He is not being taken care of. They called paramedics and law enforcement to have him brought here. Patient apparently has been sitting on the ground for last several days. He's not been eating. He is full of stool. He has decubitus. He was here 3 days ago and case management evaluated, patient is nonverbal and can provide no useful history or review of systems. PFSH Past Medical History Hx Anticoagulant Therapy: Yes Arthritis: No Asthma: No Anxiety: No Depression: No Heart Rhythm Problems: No Cancer: No Cardiovascular Problems: Yes High Cholesterol: Yes Chest Pain: Yes Congestive Heart Failure: Yes COPD: No Cerebrovascular Accident: Yes Coronary Artery Disease: Yes Diabetes: Yes Diminished Hearing: No Endocrine: Yes Gastrointestinal Disorders: No GERD: No Genitourinary: Yes Headaches: No Hepatitis: No Hiatal Hernia: No Hypertension: Yes Immune Disorder: No Implanted Vascular Access Dvce: Yes Kidney Stones: Yes Musculoskeletal: No Neurologic: No Psychiatric: No Reproductive: No Respiratory: Yes Migraines: No Myocardial Infarction: Yes Renal Failure: No Seizures: No Sleep Apnea: No Thyroid Disease: No Past Surgical History Abdominal Surgery: No AICD: No Arteriovenous Shunt: No Body Medical Devices: PLASTIC IN THROAT,STERNAL WIRES Cardiac Surgery: Yes (cabg x4 2003,stent 2013) Coronary Artery Bypass Graft: Yes (x 4 02/01) Ear Surgery: No Endocrine Surgery: No Eye Surgery: No Genitourinary Surgery: No Gynecologic Surgery: No Insulin Pump: No Joint Replacement: No Neurologic Surgery: No Oral Surgery: Yes Pacemaker: No Thoracic Surgery: Yes Other Surgery: Yes (BKA right leg) Family History Family Hypercholesterolemia: Yes Social History Alcohol Use: No Tobacco Use: No Substance Use: No Allergies-Medications (Allergen,Severity, Reaction): Coded Allergies: Pen-Vee K (Verified Allergy, Severe, THROAT SWELLS, 07/25/16) Penicillin (Verified Allergy, Unknown, SWELLING, 07/25/16) Uncoded Allergies: aspartame (Adverse Reaction, Severe, severe nose bleed, 10/24/13) Reported Meds & Prescriptions Reported Meds & Active Scripts Active Eliquis (Apixaban) 2.5 Mg Tab 2.5 Mg PO BID 30 Days Norvasc (Amlodipine Besylate) 10 Mg Tab 10 Mg PO DAILY 30 Days Wheelchair (Device) 1 Mis Mis 1 Ea .ROUTE DIRECTED Atorvastatin (Atorvastatin Calcium) 80 Mg Tab 80 Mg PO HS Start on 07/08/16 Quetiapine (Quetiapine Fumarate) 100 Mg Tab 100 Mg PO DAILY Quetiapine (Quetiapine Fumarate) 100 Mg Tab 150 Mg PO HS Isosorbide Mononitrate ER (Isosorbide Mononitrate) 60 Mg Tab 60 Mg PO HS Ferrous Sulfate 325 Mg Tab 325 Mg PO DAILY@08 Take 1 hour before you take Pepcid in the morning. Famotidine 20 Mg Tab 20 Mg PO BID Coreg (Carvedilol) 12.5 Mg Tab 25 Mg PO BID Review of Systems ROS Limitations: Clinical Condition, Altered Mental Status, Poor Historian Physical Exam Narrative GENERAL: Disheveled, confused appearing patient in no apparent distress. SKIN: Warm and dry. Rash consisting of tiny pustules on the right chest wall HEAD: Atraumatic. Normocephalic. EYES: Pupils equal and round. No scleral icterus. No injection or drainage. ENT: No nasal bleeding or discharge. Mucous membranes pink and moist. NECK: Trachea midline. No JVD. CARDIOVASCULAR: Regular rate and rhythm. No murmur appreciated. RESPIRATORY: No accessory muscle use. Clear to auscultation. Breath sounds equal bilaterally. GASTROINTESTINAL: Abdomen soft, non-tender, nondistended. Hepatic and splenic margins not palpable. MUSCULOSKELETAL: Has right sided BKA. Stump looks fine. No clubbing. No cyanosis. No edema. Has large sacral decubiti. Mostly stage I but some degree of stage II in the midline with a scant bit of blood oozing from it. NEUROLOGICAL: Awake and looking around but does not follow commands or converse. Impossible to accurately gauge motor strength or sensation. Motor grossly within normal limits. Nonverbal . PSYCHIATRIC: Impossible to test mood and affect; insight and judgment poor. Data Data Last Documented VS Vital Signs Date Time Temp Pulse Resp B/P Pulse Ox O2 Delivery O2 Flow Rate FiO2 07/25/16 16:40 97.8 88 16 129/94 98 Orders Basic Metabolic Panel (Bmp) (07/25/16 16:44) Complete Blood Count With Diff (07/25/16 16:44) Creatine Kinase (Cpk) (07/25/16 16:44) Thyroid Stimulating Hormone (07/25/16 16:44) Urinalysis - C+S If Indicated (07/25/16 16:44) Ct Brain W/O Iv Contrast(Rout) (07/25/16 16:44) Ecg Monitoring (07/25/16 16:44) Iv Access Insert/Monitor (07/25/16 16:44) Cath For Specimen (07/25/16 16:44) Oximetry (07/25/16 16:44) Sodium Chloride 0.9% Flush (Ns Flush) (07/25/16 16:45) Sodium Chlor 0.9% 1000 Ml Inj (Ns 1000 M (07/25/16 16:44) Drug Screen, Random Urine (07/25/16 16:44) Alcohol (Ethanol) (07/25/16 16:44) CKMB (07/25/16 17:15) CKMB% (07/25/16 17:15) Urinary Catheter Insert/Apply (07/25/16 18:07) Amlodipine (Norvasc) (07/26/16 09:00) Apixaban (Eliquis) (07/25/16 21:00) Atorvastatin (Lipitor) (07/25/16 21:00) Carvedilol (Coreg) (07/25/16 21:00) Ferrous Sulfate (Ferrous Sulfate) (07/26/16 08:00) Isosorbide Mononitrate (Imdur) (07/25/16 21:00) Quetiapine (Seroquel) (07/26/16 09:00) Quetiapine (Seroquel) (07/25/16 21:00) Admit Order (Ed Use Only) (07/25/16 18:30) Labs Laboratory Tests Test 07/25/16 07/25/16 17:15 17:45 White Blood Count 17.7 TH/MM3 Red Blood Count 4.02 MIL/MM3 Hemoglobin 11.1 GM/DL Hematocrit 34.0 % Mean Corpuscular Volume 84.6 FL Mean Corpuscular Hemoglobin 27.6 PG Mean Corpuscular Hemoglobin 32.6 % Concent Red Cell Distribution Width 18.2 % Platelet Count 263 TH/MM3 Mean Platelet Volume 8.3 FL Neutrophils (%) (Auto) 85.4 % Lymphocytes (%) (Auto) 6.5 % Monocytes (%) (Auto) 7.9 % Eosinophils (%) (Auto) 0.1 % Basophils (%) (Auto) 0.1 % Neutrophils # (Auto) 15.1 TH/MM3 Lymphocytes # (Auto) 1.2 TH/MM3 Monocytes # (Auto) 1.4 TH/MM3 Eosinophils # (Auto) 0.0 TH/MM3 Basophils # (Auto) 0.0 TH/MM3 CBC Comment DIFF FINAL Differential Comment Sodium Level 155 MEQ/L Potassium Level 4.7 MEQ/L Chloride Level 120 MEQ/L Carbon Dioxide Level 22.3 MEQ/L Anion Gap 13 MEQ/L Blood Urea Nitrogen 131 MG/DL Creatinine 7.00 MG/DL Estimat Glomerular Filtration 8 ML/MIN Rate Random Glucose 139 MG/DL Calcium Level 9.4 MG/DL Total Creatine Kinase 3112 U/L Creatine Kinase MB 9.7 NG/ML Creatine Kinase MB % 0.3 % Thyroid Stimulating Hormone 2.140 uIU/ML 3rd Gen Ethyl Alcohol Level LESS THAN 3 MG/DL Urine Color YELLOW Urine Turbidity HAZY Urine pH 5.0 Urine Specific [place] 1.018 Urine Protein 30 mg/dL Urine Glucose (UA) NEG mg/dL Urine Ketones NEG mg/dL Urine Occult Blood TRACE Urine Nitrite NEG Urine Bilirubin NEG Urine Urobilinogen LESS THAN 2.0 MG/DL Urine Leukocyte Esterase TRACE Urine RBC 2 /hpf Urine WBC 1 /hpf Urine Squamous Epithelial 3 /hpf Cells Microscopic Urinalysis Comment CATH-CULT NOT IND Urine Opiates Screen NEG Urine Barbiturates Screen NEG Urine Amphetamines Screen NEG Urine Benzodiazepines Screen NEG Urine Cocaine Screen NEG Urine Cannabinoids Screen NEG [facility] Medical Decision Making Medical Screen Exam Complete: Yes Emergency Medical Condition: Yes Medical Record Reviewed: Yes Differential Diagnosis Failure to thrive, rhabdomyolysis, dehydration Narrative Course I have reviewed the patient's electronic medical record. Reviewed his visit from 3 days ago. He had negative brain CT IV placed Gave him 1 L normal saline IV. Gave him a second liter normal saline IV bolus because his dehydration is severe CBC shows leukocytosis and mild anemia Metabolic profile is markedly abnormal with hypernatremia and renal failure TSH is normal Alcohol is negative Urinalysis is pending Toxicology screen is pending Brain CT shows old lacunar infarct but nothing acute Patient is critically ill with hypernatremia and renal failure likely from severe dehydration He requires admission for IV fluid and correction of metabolic abnormalities I reviewed with medical residents who will admit Will be at risk for seizure and other associated problems and needs close monitoring I have done multiple rechecks with considerable bedside time Critical Care Narrative Aggregate critical care time was 34 minutes. Time to perform other separately billable procedures was not included in the critical care time. My time did not include minutes spent treating any other patients simultaneously or on activities that did not directly contribute to the patient's treatment. The services I provided to this patient were to treat and/or prevent clinically significant deterioration that could result in: Brain stem herniation, permanent neurologic deficit, cardiopulmonary arrest I provided critical care services requiring my management, as noted below: Chart data review, documentation time, medication orders and management, vital sign assessments/reviewing monitor data, ordering and reviewing lab tests, ordering and interpreting/reviewing x-rays and diagnostic studies, care of the patient and discussion of the patient with the admitting physicians. Diagnosis Primary Impression: Dehydration, severe Additional Impressions: Acute hypernatremia Renal failure Uremic encephalopathy Admitting Information Admitting Physician Requests: Truman Brownlee MD Jul 25, 2016 16:54
[2016-07-25 17:27] LABS: AUTOMATED NEUTROPHIL # 15.1 TH/MM3 (1.8-7.7); BASOPHIL % 0.1 % (0.0-2.0); EOSINOPHIL % 0.1 % (0.0-4.0); HEMO FLAGS DIFF FINAL; LYMPH % 6.5 % (9.0-44.0); LYMPHOCYTE # 1.2 TH/MM3 (1.0-4.8); MEAN CELL VOLUME 84.6 FL (80.0-100.0); MEAN CORPUSCULAR HEMOGLOBIN 27.6 PG (27.0-34.0); MEAN CORPUSCULAR HGB CONC 32.6 % (32.0-36.0); MONO % 7.9 % (0.0-8.0); NEUT % 85.4 % (16.0-70.0); PLATELET COUNT 263 TH/MM3 (150-450); RED BLOOD COUNT 4.02 MIL/MM3 (4.50-5.90); RED CELL DISTRIBUTION WIDTH 18.2 % (11.6-17.2); WHITE BLOOD COUNT 17.7 TH/MM3 (4.0-11.0)
--- NOTE | 2016-07-25 17:35 | RADRPT ---
EXAM DATE/TIME: 07/25/2016 17:19 [facility] COMPARISON: CT BRAIN W/O CONTRAST, July 22, 2016, 14:13. INDICATIONS : Altered mental status and confusion. RADIATION DOSE: 41.50 CTDIvol (mGy) MEDICAL HISTORY : Hypertension. Cerebrovascular disease. Congestive heart failure. SURGICAL HISTORY : None. ENCOUNTER: Initial ACUITY: 1 day PAIN SCALE: Non-responsive LOCATION: Cranial TECHNIQUE: Multiple contiguous axial images were obtained of the head. Using automated exposure control and adjustment of the mA and/or kV according to patient size, radiation dose was kept as low as reasonably achievable to obtain optimal diagnostic quality images. FINDINGS: Lacunar infarcts are seen in the basal ganglia worse on the left than the right. There is no parenchymal hemorrhage, acute infarction or mass lesion. There are no extra-axial fluid collec tions appreciated. Posterior fossa is unremarkable. CONCLUSION: 1. Lacunar infarcts bilaterally, worse on the left. 2. Negative for an acute process. Didier Clay MD FACR on July 25, 2016 at 17:31 Board Certified Radiologist. This report was verified electronically.
[2016-07-25 17:43] LABS: ANION GAP 13 MEQ/L (5-15); BICARBONATE 22.3 MEQ/L (21.0-32.0); BLOOD UREA NITROGEN 131 MG/DL (7-18); CHLORIDE 120 MEQ/L (98-107); GLOMERULAR FILTRATION RATE 8 ML/MIN (>89); POTASSIUM 4.7 MEQ/L (3.5-5.1); SODIUM (NA) 155 MEQ/L (136-145)
[2016-07-25 17:58] LABS: CREATINE KINASE 3112 U/L (39-308)
--- NOTE | 2016-07-25 18:07 | HHI.HP ---
HPI Service Family Medicine Primary Care Physician No Primary Care Physician Admission Diagnosis Diagnoses: Chief Complaint: ams International Travel<30 Days: No Contact w/Intl Traveler<30days: No Known Affected Area: No History of Present Illness 61 yo M with AMS. Patient was found at home by DCF earlier today. He was found to be on the ground, lying in his own feces. It was determined that patient was not safe to stay at home alone. EMS brought patient to the hospital. Patient was seen in the ED for fall on 07/22/2016 and it is suspected that he may have been on the ground since discharge. Prior, patient was in the hospital from October 15, 2015 until July 18, 2016. Patient is unable to provide any history, he is nonvocal. History obtained by chart review. Appears that patient was dc'd home with family on 07/18. Nursing in the ED do not have any family contact information but states that she is aware that patient has a sister that is not all there cognitively as far as she is aware. Chart review showing her name/ number: Tigist Amado (sister) [phone], no answer when placed call. Review of Systems ROS Limitations: Altered Mental Status Past Family Social History Past Medical History Coronary artery disease Hypertension Hyperlipidemia Diabetes mellitus Congestive heart failure Peripheral arterial disease Obstructive sleep apnea? Past Surgical History CABG 4 vessel Left kidney stent Patient had a trach as a child Right BKA Reported Medications Reported Meds & Active Scripts Active Eliquis (Apixaban) 2.5 Mg Tab 2.5 Mg PO BID 30 Days Norvasc (Amlodipine Besylate) 10 Mg Tab 10 Mg PO DAILY 30 Days Wheelchair (Device) 1 Mis Mis 1 Ea .ROUTE DIRECTED Atorvastatin (Atorvastatin Calcium) 80 Mg Tab 80 Mg PO HS Start on 07/08/16 Quetiapine (Quetiapine Fumarate) 100 Mg Tab 100 Mg PO DAILY Quetiapine (Quetiapine Fumarate) 100 Mg Tab 150 Mg PO HS Isosorbide Mononitrate ER (Isosorbide Mononitrate) 60 Mg Tab 60 Mg PO HS Ferrous Sulfate 325 Mg Tab 325 Mg PO DAILY@08 Take 1 hour before you take Pepcid in the morning. Famotidine 20 Mg Tab 20 Mg PO BID Coreg (Carvedilol) 12.5 Mg Tab 25 Mg PO BID Allergies: Coded Allergies: Jaylene Bentley (Verified Allergy, Severe, THROAT SWELLS, 07/25/16) Penicillin (Verified Allergy, Unknown, SWELLING, 07/25/16) Uncoded Allergies: aspartame (Adverse Reaction, Severe, severe nose bleed, 10/24/13) Family History unknown Social History No t/e/d Physical Exam Vital Signs Vital Signs Date Time Temp Pulse Resp B/P Pulse Ox O2 Delivery O2 Flow Rate FiO2 07/25/16 16:40 97.8 88 16 129/94 98 Physical Exam GENERAL: This is a disheveled appearing adult male, in NAD, nonverbal. SKIN: No rashes, ecchymoses or lesions. Cool and dry. Vertical scar over sternum. Pressure ulcer over sacrum and left calf. HEAD: Atraumatic. Normocephalic. No temporal or scalp tenderness. EYES: Pupils equal round and reactive. Extraocular motions intact. No scleral icterus. No injection or drainage. ENT: Nose without bleeding, purulent drainage or septal hematoma. Throat without erythema, tonsillar hypertrophy or exudate. Uvula midline. Airway patent. NECK: Trachea midline. No JVD or lymphadenopathy. Supple, nontender, no meningeal signs. CARDIOVASCULAR: Regular rate and rhythm without murmurs, gallops, or rubs. RESPIRATORY: Clear to auscultation. Breath sounds equal bilaterally. No wheezes , rales, or rhonchi. GASTROINTESTINAL: Abdomen soft, non-tender, nondistended. No hepato-splenomegaly , or palpable masses. No guarding. MUSCULOSKELETAL: Extremities without clubbing, cyanosis, or edema. RIGHT BKA. NEUROLOGICAL: Awake and alert. Cranial nerves II through XII intact. Motor and sensory grossly within normal limits. Five out of 5 muscle strength in all muscle groups. Normal speech. Laboratory Laboratory Tests Test 07/25/16 17:15 White Blood Count 17.7 Red Blood Count 4.02 Hemoglobin 11.1 Hematocrit 34.0 Mean Corpuscular Volume 84.6 Mean Corpuscular Hemoglobin 27.6 Mean Corpuscular Hemoglobin 32.6 Concent Red Cell Distribution Width 18.2 Platelet Count 263 Mean Platelet Volume 8.3 Neutrophils (%) (Auto) 85.4 Lymphocytes (%) (Auto) 6.5 Monocytes (%) (Auto) 7.9 Eosinophils (%) (Auto) 0.1 Basophils (%) (Auto) 0.1 Neutrophils # (Auto) 15.1 Lymphocytes # (Auto) 1.2 Monocytes # (Auto) 1.4 Eosinophils # (Auto) 0.0 Basophils # (Auto) 0.0 CBC Comment DIFF FINAL Differential Comment Sodium Level 155 Potassium Level 4.7 Chloride Level 120 Carbon Dioxide Level 22.3 Anion Gap 13 Blood Urea Nitrogen 131 Creatinine 7.00 Estimat Glomerular Filtration 8 Rate Random Glucose 139 Calcium Level 9.4 Total Creatine Kinase 3112 Thyroid Stimulating Hormone 2.140 3rd Gen Ethyl Alcohol Level LESS THAN 3 Result Diagram: 07/25/16 1715 07/25/16 171 Septic Shock Reassessment Heart: Regular rate and rhythm Lungs: Clear Skin: Warm Peripheral Pulses: Bounding Right Posterior Tibial Bounding Left Posterior Tibial Capillary Refill: <2 seconds Assessment and Plan Assessment and Plan 61 yo M, hx of prolonged hospital stay from September 2015 - July 18, 2016, having returned to the hospital on July 22 for far, now being admitted for AMS. Code Status Full Discussed Condition With Dr. Barros wdw: Dr. Nguyễn Problem List: (1) Altered mental status Status: Acute Plan: Currently patient with hypernatremia, possible contributing factor. Also having acute on chronic kidney failure, possible azotemia contributing. Patient was on Lactulose at last hospitalization, not taking at home. Hep panel was negative. Negative UA and tox screen. -Admit to inpatient -NS at 125 mls/hr and monitor BMP, will repeat BMP -ammonia, restart lactulose if indicated -lactic acid -CXR -EKG -Fall precautions (2) [id number] kidney injury Status: Acute Plan: Baseline GFR 50s, most recently 48 on 07/05/16. Today GFR 8. There is prerenal component with patient having dehydration. Associated rhabdomyolysis likely contributing. No hyperkalemia. -IV fluids -Monitor CK -Avoid nephrotoxic meds -Closely monitor I&O -Consult nephrology (3) Chronic systolic (congestive) heart failure Status: Chronic Plan: Patient with hx of CHF, EF 35% from September 2015. Not currently appearing to be fluid overloaded. -Closely monitor I&O (4) Coronary artery disease Status: Chronic Plan: Continue Coreg 12.5 mg po bid Continue Eliquis Continue Atorvastatin 80 mg po hs Continue Isosorbide Mononitrate 60 mg po hs (5) Leukocytosis Status: Acute Plan: WBC [id number]. -monitor CBC -plan as above (6) Anemia Status: Chronic Plan: Hx of anemia. Baseline Hg 9-10. Current Hg 11.1, likely hemoconcentrated. -Continue Fe supplementation -Closely monitor H/H daily (7) HTN (hypertension) Status: Chronic Plan: Continue Amlodipine 10 mg po daily (8) Diabetes mellitus Status: Chronic Plan: A1C 6.9 on 11/25/15, not currently on DM meds -Closely monitor BMP, consider adding sliding scale once patient tolerating po intake (9) History of lacunar cerebrovascular accident Status: Chronic Plan: Lacunar infarct 10/20/15. CT head consistent with chronic change. Nikunj PT consult Bed rest (10) Nutrition, metabolism, and development symptoms Status: Acute Plan: NS at 125 mls/hr Electrolytes: Na, Cl elevated, treat as above Rosamariaqufidencio continued Hx of Delirium for which Seroquel was initiated Mar 2016. Will hold now and restart once AMS improved if needed Physician Certification 2 Midnight Certification Type: Admission for Inpatient Services Order for Inpatient Services The services are ordered in accordance with Medicare regulations or non- Medicare payer requirements, as applicable. In the case of services not specified as inpatient-only, they are appropriately provided as inpatient services in accordance with the 2-midnight benchmark. Estimated LOS (days): 3 3 days is the estimated time the patient will need to remain in the hospital, assuming treatment plan goals are met and no additional complications. Post-Hospital Plan: SNF Problem Qualifiers (1) Anemia: Qualified Code: D50.8 - Other iron deficiency anemia (2) HTN (hypertension): Qualified Code: I10 - Essential hypertension (3) Diabetes mellitus: Qualified Code: E11.51 - Type 2 diabetes mellitus with diabetic peripheral angiopathy without gangrene, without long-term current use of insulin Elizabeth Nation MD Jul 25, 2016 18:07
[2016-07-25 18:12] LABS: CKMB 9.7 NG/ML (0.5-3.6)
[2016-07-25 18:15] LABS: AMPHETAMINE, URINE NEG (NEG); BARBITURATES, URINE NEG (NEG); BLOOD, URINE TRACE (NEG); COCAINE, URINE NEG (NEG); GLUCOSE,URINE NEG (NEG); KETONE, URINE NEG (NEG); NITRITE,URINE NEG (NEG); SQUAMOUS EPITHELIAL CELL URINE 3 /hpf (0-5); URINE COLOR YELLOW (YELLW/STRAW)
[2016-07-25 18:17] LABS: COMMENT (UR) CATH-CULT NOT IND; CULTURE IF INDICATED CATH CULTURE NOT IND
[2016-07-25] MEDS ORDERED: NALOXONE HCL 0.4 MG/ML AMP IV PRN (18:30)
[2016-07-25] MEDS ORDERED: SODIUM CHLORIDE 0.9% FLUSH 10 ML FLUSH IV FLUSH PRN (18:30)
[2016-07-25] MEDS: SODIUM CHLOR 0.9% 1000 ML INJ 1,000 ML IV SCH ×5 (18:45→23:14)
[2016-07-25] MEDS ORDERED: PILL SPLITTER OTHER PRN (18:45)
[2016-07-25 19:00] VITALS: BP 147/96; PULSE 68; RESP 16; O2SAT 97
--- NOTE | 2016-07-25 19:48 | RADRPT ---
EXAM DATE/TIME: 07/25/2016 19:36 [facility] COMPARISON: CHEST SINGLE AP, June 26, 2016, 8:51. INDICATIONS : Atelectasis. MEDICAL HISTORY : Hypertension. Cerebrovascular disease. Congestive heart failure. SURGICAL HISTORY : None. ENCOUNTER: Initial ACUITY: 1 day PAIN SCORE: Non-responsive. LOCATION: Bilateral chest FINDINGS: A single view of the chest demonstrates the lungs to be symmetrically aerated without evidence of mas s, infiltrate or effusion. Median sternotomy wires are noted. The cardiomediastinal contours are unr emarkable. Osseous structures are intact. CONCLUSION: No acute disease. Efren Cleaning MD on July 25, 2016 at 19:46 Board Certified Radiologist. This report was verified electronically.
[2016-07-25] MEDS: CARVEDILOL 12.5 MG TAB PO SCH (20:53)
[2016-07-25] MEDS: SODIUM CHLORIDE 0.9% FLUSH 10 ML FLUSH IV FLUSH SCH (20:53)
[2016-07-25] MEDS: APIXABAN 2.5 MG TABLET PO SCH (20:54)
[2016-07-25] MEDS: ISOSORBIDE MONONITRATE 60 MG TAB PO SCH (20:54)
[2016-07-25] MEDS: ATORVASTATIN 80 MG TAB PO SCH (20:54)
[2016-07-25 21:00] VITALS: BP 137/90; PULSE 75; RESP 16; O2SAT 97
[2016-07-25] MEDS ORDERED: QUEtiapine FUMARATE 100 MG TAB PO SCH (21:00)
--- NOTE | 2016-07-25 21:46 | RADRPT ---
EXAM DATE/TIME: 07/25/2016 20:55 [facility] COMPARISON: US KIDNEY/RENAL/BLADDER, September 12, 2015, 16:49. INDICATIONS : Increased BUN/creatinine. MEDICAL HISTORY : Myocardial infarction. Congestive heart failure. Hypercholesterolemia. CVA. Num bness, left foot. CAD. HTN. Chest pain. Dyspnea. Renal calculi. Diabetes. Anticoagulant therapy. SURGICAL HISTORY : Coronary artery stent. CABG. Right foot amputation. ENCOUNTER: Initial ACUITY: 1 day PAIN SCORE: Nonresponsive. LOCATION: Bilateral flank MEASUREMENTS: RIGHT KIDNEY: 10.1 x 5.3 x 5.5 cm LEFT KIDNEY: 10.2 x 6.0 x 5.8 cm FINDINGS: RIGHT KIDNEY: Renal cortex is normal in thickness and echotexture. No hydronephrosis, stone, or mass. LEFT KIDNEY: Renal cortex is normal in thickness and echotexture. No hydronephrosis or mass. Th ere are tiny nonobstructing calcified left renal calculi measuring 4 and 10 mm in greatest dimension. BLADDER: Within normal limits given the degree of distension. CONCLUSION: 1. Tiny nonobstructing calcified left renal calculi. 2. No hydronephrosis or solid renal mass. Efren Cleaning MD on July 25, 2016 at 21:40 Board Certified Radiologist. This report was verified electronically.
[2016-07-26] MEDS: SODIUM CHLOR 0.9% 1000 ML INJ 1,000 ML IV SCH (02:30)
[2016-07-26 04:49] VITALS: BP 140/78; PULSE 78; RESP 20; TEMP 97.8; O2SAT 96
[2016-07-26 05:04] LABS: AUTOMATED NEUTROPHIL # 9.2 TH/MM3 (1.8-7.7); BASOPHIL % 0.1 % (0.0-2.0); EOSINOPHIL # 0.1 TH/MM3 (0-0.4); EOSINOPHIL % 0.4 % (0.0-4.0); HEMATOCRIT 27.7 % (39.0-51.0); HEMO FLAGS DIFF FINAL; LYMPH % 9.4 % (9.0-44.0); LYMPHOCYTE # 1.1 TH/MM3 (1.0-4.8); MEAN CELL VOLUME 85.4 FL (80.0-100.0); MEAN CORPUSCULAR HEMOGLOBIN 27.3 PG (27.0-34.0); MONO % 9.2 % (0.0-8.0); NEUT % 80.9 % (16.0-70.0); PLATELET COUNT 171 TH/MM3 (150-450); RED BLOOD COUNT 3.24 MIL/MM3 (4.50-5.90); RED CELL DISTRIBUTION WIDTH 17.7 % (11.6-17.2); WHITE BLOOD COUNT 11.4 TH/MM3 (4.0-11.0)
[2016-07-26 05:55] LABS: BICARBONATE 17.9 MEQ/L (21.0-32.0); POTASSIUM 4.2 MEQ/L (3.5-5.1)
[2016-07-26 06:25] LABS: CKMB 11.3 NG/ML (0.5-3.6)
[2016-07-26] MEDS ORDERED: SODIUM CHLOR 0.45% 1000 ML INJ 1,000 ML IV SCH (07:00)
[2016-07-26] MEDS ORDERED: SODIUM CHLORID 0.9% 500 ML INJ 500 ML IV ONE (07:00)
[2016-07-26 08:00] VITALS: BP 143/73; PULSE 81; RESP 19; TEMP 98.1; O2SAT 97
[2016-07-26] MEDS: SODIUM CHLORIDE 0.9% FLUSH 10 ML FLUSH IV FLUSH SCH ×2 (09:00→21:00)
[2016-07-26] MEDS ORDERED: QUEtiapine FUMARATE 100 MG TAB PO SCH (09:00)
[2016-07-26] MEDS: FERROUS SULFATE 325 MG (65 MG ELEMENTAL IRON) TAB PO SCH (09:42)
[2016-07-26] MEDS: APIXABAN 2.5 MG TABLET PO SCH ×2 (09:42→21:00)
[2016-07-26] MEDS: CARVEDILOL 12.5 MG TAB PO SCH ×2 (09:43→21:00)
[2016-07-26 12:00] VITALS: BP 141/70; PULSE 78; RESP 17; TEMP 97.9; O2SAT 97
--- NOTE | 2016-07-26 12:32 | HHI.FPPN ---
Subjective Remarks This is a 61-year-old chronically ill male who was seen in the emergency department after a fall on July 22, at which time he was discharged to home. He was found on the day of admission at home with altered mental status, on the floor with feces and was sent via [facility] the emergency department. It is noted that this gentleman was hospitalized in this facility for 9 months, from September 2015 until July 18, 2016. Main issue today is disorientation and altered mental status, as well as having been down for an unknown period of time. When he was discharged on July 18 he was sent home with home health and family support. Please see history and physical examination for this admission for additional historical details including past, family, social history and review of systems. Chronic problems include diabetes, hypertension, coronary artery disease, dyslipidemia, heart failure with an EF of 35%, obstructive sleep apnea, history of CABG, history of left renal stent and right BKA. Medications include Eliquis, Norvasc, atorvastatin, Seroquel, isosorbide dinitrate, Coreg, iron and Pepcid. This morning, he is nonverbal, staring ahead, oblique but not responding to any questions. Objective Vitals Vital Signs Date Time Temp Pulse Resp B/P Pulse Ox O2 Delivery O2 Flow Rate FiO2 07/26/16 08:00 98.1 81 19 143/73 97 07/26/16 04:49 97.8 78 20 140/78 96 07/25/16 21:00 75 16 137/90 97 Room Air 07/25/16 19:00 68 16 147/96 97 Room Air 07/25/16 16:40 97.8 88 16 129/94 98 I/O 07/25/16 07/25/16 07/25/16 07/26/16 07/26/16 07/26/16 07:00 15:00 23:00 07:00 15:00 23:00 Intake Total 0 ml 1525 ml Output Total 250 ml Balance -250 ml 1525 ml Intake Oral 0 ml IV Total 1525 ml Output Urine Total 250 ml # Bowel Movements 0 Result Diagram: 07/26/16 0439 07/26/16 0439 Other Results Laboratory Tests Test 07/25/16 07/25/16 07/26/16 17:15 17:45 04:39 White Blood Count 17.7 TH/MM3 11.4 TH/MM3 Red Blood Count 4.02 MIL/MM3 3.24 MIL/MM3 Hemoglobin 11.1 GM/DL 8.8 GM/DL Hematocrit 34.0 % 27.7 % Red Cell Distribution Width 18.2 % 17.7 % Neutrophils (%) (Auto) 85.4 % 80.9 % Lymphocytes (%) (Auto) 6.5 % Neutrophils # (Auto) 15.1 TH/MM3 9.2 TH/MM3 Monocytes # (Auto) 1.4 TH/MM3 1.1 TH/MM3 Sodium Level 155 MEQ/L 160 MEQ/L Chloride Level 120 MEQ/L 128 MEQ/L Blood Urea Nitrogen 131 MG/DL 127 MG/DL Creatinine 7.00 MG/DL 6.16 MG/DL Estimat Glomerular Filtration 8 ML/MIN 9 ML/MIN Rate Random Glucose 139 MG/DL Total Creatine Kinase 3112 U/L 3311 U/L Creatine Kinase MB 9.7 NG/ML 11.3 NG/ML Urine Turbidity HAZY Urine Protein 30 mg/dL Urine Occult Blood TRACE Urine Leukocyte Esterase TRACE Monocytes (%) (Auto) 9.2 % Carbon Dioxide Level 17.9 MEQ/L Calcium Level 8.2 MG/DL Imaging Last Impressions Head CT 07/25/16 1644 Signed Impressions: Service Date/Time: Monday, July 25, 2016 17:19 - CONCLUSION: 1. Lacunar infarcts bilaterally, worse on the left. 2. Negative for an acute process. Didier Clay MD FACR Renal Ultrasound 07/25/16 0000 Signed Impressions: Service Date/Time: Monday, July 25, 2016 20:55 - CONCLUSION: 1. Tiny nonobstructing calcified left renal calculi. 2. No hydronephrosis or solid renal mass. Efren Cleaning MD Chest X-Ray 07/25/16 0000 Signed Impressions: Service Date/Time: Monday, July 25, 2016 19:36 - CONCLUSION: No acute disease. Efren Cleaning MD Objective Remarks O. CONSTITUTIONAL/GEN: normally nourished, in NAD. Awake, staring ahead, not responding to questions. EYES: conjunctiva normal, PERRLA, EOMI. blinks when light is shined in his eyes. ENT: Mouth shows dry, sticky mucous membranes and secretions LUNGS: clear A-P, respiratory effort is normal. CARDIOVASCULAR: RR without murmur or gallop. No significant edema. GI/ABD: soft without masses, without organomegaly. Bowel sounds present NEURO: No focal deficits. SKIN: color normal, no rashes noted except for erythema of the proximal anterior left lower extremity and posterior left calf. Wounds noted of the left calf and sacrum. HEME/LYMPH: no bruising, petechia or significant adenopathy MUSC: Muscle wasting noted in the bitemporal areas as well as the hyperthenar eminence. PSYCH/MENTAL STATUS: Alert but orientation is difficult to discern. He stares head, but does not respond. A/P Assessment and Plan 61 yo M, hx of prolonged hospital stay from September 2015 - July 18, 2016, having returned to the hospital on July 22 for fall, now being admitted for AMS, rhabdomyolysis with CK 3000, hypernatremia and anemia. Attending Attestation Patient seen and examined. Case reviewed and discussed with the resident team. Agree with plan of care as discussed with me and documented in the resident note. Problem List: (1) Altered mental status Status: Acute Plan: Currently patient with hypernatremia, possible contributing factor. Also having acute on chronic kidney failure, possible azotemia contributing. Patient was on Lactulose at last hospitalization, not taking at home. Hep panel was negative. Negative UA and tox screen. -Admit to inpatient -NS at 125 mls/hr and monitor BMP, will repeat BMP -ammonia, restart lactulose if indicated -lactic acid -CXR -EKG -Fall precautions (2) Cpkxg-[id number]-wqsvcgi kidney injury Status: Acute Plan: Baseline GFR 50s, most recently 48 on 07/05/16. Today GFR 8. There is prerenal component with patient having dehydration. Associated rhabdomyolysis likely contributing. No hyperkalemia. -IV fluids -Monitor CK -Avoid nephrotoxic meds -Closely monitor I&O -Consult nephrology (3) Chronic systolic (congestive) heart failure Status: Chronic Plan: Patient with hx of CHF, EF 35% from September 2015. Not currently appearing to be fluid overloaded. -Closely monitor I&O (4) Coronary artery disease Status: Chronic Plan: Continue Coreg 12.5 mg po bid Continue Eliquis Continue Atorvastatin 80 mg po hs Continue Isosorbide Mononitrate 60 mg po hs (5) Leukocytosis Status: Acute Plan: WBC 63694. -monitor CBC -plan as above (6) Anemia Status: Chronic Plan: Hx of anemia. Baseline Hg 9-10. Current Hg 11.1, likely hemoconcentrated. -Continue Fe supplementation -Closely monitor H/H daily (7) HTN (hypertension) Status: Chronic Plan: Continue Amlodipine 10 mg po daily (8) Diabetes mellitus Status: Chronic Plan: A1C 6.9 on 11/25/15, not currently on DM meds -Closely monitor BMP, consider adding sliding scale once patient tolerating po intake (9) History of lacunar cerebrovascular accident Status: Chronic Plan: Lacunar infarct 10/20/15. CT head consistent with chronic change. Nikunj PT consult Bed rest (10) Nutrition, metabolism, and development symptoms Status: Acute Plan: NS at 125 mls/hr Electrolytes: Na, Cl elevated, treat as above Rosamariaqufidencio continued Hx of Delirium for which Seroquel was initiated Mar 2016. Will hold now and restart once AMS improved if needed Problem Qualifiers (1) Anemia: Qualified Code: D50.8 - Other iron deficiency anemia (2) HTN (hypertension): Qualified Code: I10 - Essential hypertension (3) Diabetes mellitus: Qualified Code: E11.51 - Type 2 diabetes mellitus with diabetic peripheral angiopathy without gangrene, without long-term current use of insulin Fifi Nguyễn MD Jul 26, 2016 12:32
--- NOTE | 2016-07-26 13:23 | PD.CONS ---
HPI Service Nephrology Consult Requested By Dr. Nation Reason for Consult PAT Primary Care Physician History of Present Illness The patient is a 61 yo [place] male who was brought to this facility via EMS 07/25 after a DCF visit resulted in finding him on the floor covered in his own waste. He was in the ED on 07/22 for a fall and was discharged that day. Suspected that he may have fallen again and been down on the floor since 07/22. He is non-verbal and there is no family present in room. History obtained from previous medical records. Uncertain if any medications have been taken at home. Also unclear to me as what his normal mentation is. According to previous labs, has underlying CKD with baseline SCr of 1.5-1.9. Noted EF of 35% as per echo in 2016. CAD s/p 4 vessel CABG, DM, HTN, PAD s/p r BKA Admitting SCr 7.00 that improved to 6.16 at time of consult. He has been bolused multiple times with NS and was on maintenance fluid of NS until this AM. Switched to 1/2 NS given his hyponatremia. His working dx at this time is rhabdo ([facility]) Review of Systems ROS Limitations: Unresponsive ([facility]) Past Family Social History Allergies: Coded Allergies: Pen-Vee K (Verified Allergy, Severe, THROAT SWELLS, 07/25/16) Penicillin (Verified Allergy, Unknown, SWELLING, 07/25/16) Uncoded Allergies: aspartame (Adverse Reaction, Severe, severe nose bleed, 10/24/13) Past Medical History As per records: CKD CHF with EF of 35% HTN DM PAD SYLVIA CVA Past Surgical History L kidney stent mentioned in records. Unsure if this is a ureteral stent versus artery stent. US reviewed and showed equal sized kidneys. R BKA Reported Medications Reported Meds & Active Scripts Active Eliquis (Apixaban) 2.5 Mg Tab 2.5 Mg PO BID 30 Days Norvasc (Amlodipine Besylate) 10 Mg Tab 10 Mg PO DAILY 30 Days Wheelchair (Device) 1 Mis Mis 1 Ea .ROUTE DIRECTED Atorvastatin (Atorvastatin Calcium) 80 Mg Tab 80 Mg PO HS Start on 07/08/16 Quetiapine (Quetiapine Fumarate) 100 Mg Tab 100 Mg PO DAILY Quetiapine (Quetiapine Fumarate) 100 Mg Tab 150 Mg PO HS Isosorbide Mononitrate ER (Isosorbide Mononitrate) 60 Mg Tab 60 Mg PO HS Ferrous Sulfate 325 Mg Tab 325 Mg PO DAILY@08 Take 1 hour before you take Pepcid in the morning. Famotidine 20 Mg Tab 20 Mg PO BID Coreg (Carvedilol) 12.5 Mg Tab 25 Mg PO BID Active Ordered Medications Current Medications Medications (Trade) Dose Ordered Sig/Estuardo Route Start Time Stop Time Status Last Admin (Norvasc) 10 mg DAILY PO 07/26/16 09:00 07/26/16 09:42 (Eliquis) 2.5 mg BID PO 07/25/16 21:00 07/26/16 09:42 (Lipitor) 80 mg HS PO 07/25/16 21:00 (Coreg) 25 mg BID PO 07/25/16 21:00 07/26/16 09:43 (Ferrous Sulfate) 325 mg DAILY@08 PO 07/26/16 08:00 07/26/16 09:42 (Imdur) 60 mg HS PO 07/25/16 21:00 (NS Flush) 2 ml UNSCH PRN IV FLUSH 07/25/16 18:30 (NS Flush) 2 ml BID IV FLUSH 07/25/16 21:00 (Narcan Inj) 0.4 mg UNSCH PRN IV 07/25/16 18:30 Miscellaneous 1 ea 1 ea UNSCH PRN OTHER 07/25/16 18:45 (1/2 NS 1000 ml Inj) 1,000 ml @ 125 mls/hr Q8H IV 07/26/16 07:00 07/26/16 09:41 Family History Uncertain as pt non-verbal Social History Appears that he lives on his own. Mention of sister in records, but not able to be reached as per primary ([facility]) Physical Exam Vital Signs Vital Signs Date Time Temp Pulse Resp B/P Pulse Ox O2 Delivery O2 Flow Rate FiO2 07/26/16 12:00 97.9 78 17 141/70 97 07/26/16 08:00 98.1 81 19 143/73 97 07/26/16 04:49 97.8 78 20 140/78 96 07/25/16 21:00 75 16 137/90 97 Room Air 07/25/16 19:00 68 16 147/96 97 Room Air 07/25/16 16:40 97.8 88 16 129/94 98 Physical Exam GENERAL: Laying in bed. Eyes open and he looks at me when spoken to, but does not verbalize nor make any suggestions with his body to respond. SKIN: Warm and dry. HEAD: Atraumatic. Normocephalic. EYES: Pupils equal and round. No scleral icterus. No injection or drainage. ENT: No nasal bleeding or discharge. Mucous membranes pink and moist. NECK: Trachea midline. No JVD. CARDIOVASCULAR: Regular rate and rhythm. RESPIRATORY: No accessory muscle use. Clear to auscultation. Breath sounds equal bilaterally. GASTROINTESTINAL: Abdomen soft, non-tender, nondistended. Hepatic and splenic margins not palpable. MUSCULOSKELETAL: Extremities without clubbing, cyanosis, or edema. R BKA. Multiple exocriations and erythema on L anterior leg NEUROLOGICAL: Awake, but non-verbal PSYCHIATRIC: Cannot ascertain. Laboratory Laboratory Tests Test 07/25/16 07/25/16 07/25/16 07/26/16 17:15 17:45 19:40 04:39 White Blood Count 17.7 11.4 Red Blood Count 4.02 3.24 Hemoglobin 11.1 8.8 Hematocrit 34.0 27.7 Mean Corpuscular Volume 84.6 85.4 Mean Corpuscular Hemoglobin 27.6 27.3 Mean Corpuscular Hemoglobin 32.6 32.0 Concent Red Cell Distribution Width 18.2 17.7 Platelet Count 263 171 Mean Platelet Volume 8.3 8.1 Neutrophils (%) (Auto) 85.4 80.9 Lymphocytes (%) (Auto) 6.5 9.4 Monocytes (%) (Auto) 7.9 9.2 Eosinophils (%) (Auto) 0.1 0.4 Basophils (%) (Auto) 0.1 0.1 Neutrophils # (Auto) 15.1 9.2 Lymphocytes # (Auto) 1.2 1.1 Monocytes # (Auto) 1.4 1.1 Eosinophils # (Auto) 0.0 0.1 Basophils # (Auto) 0.0 0.0 CBC Comment DIFF FINAL DIFF FINAL Differential Comment Sodium Level 155 160 Potassium Level 4.7 4.2 Chloride Level 120 128 Carbon Dioxide Level 22.3 17.9 Anion Gap 13 14 Blood Urea Nitrogen 131 127 Creatinine 7.00 6.16 Estimat Glomerular Filtration 8 9 Rate Random Glucose 139 91 Calcium Level 9.4 8.2 Total Creatine Kinase 3112 3311 Creatine Kinase MB 9.7 11.3 Creatine Kinase MB % 0.3 0.3 Thyroid Stimulating Hormone 2.140 3rd Gen Ethyl Alcohol Level LESS THAN 3 Urine Color YELLOW Urine Turbidity HAZY Urine pH 5.0 Urine Specific [place] 1.018 Urine Protein 30 Urine Glucose (UA) NEG Urine Ketones NEG Urine Occult Blood TRACE Urine Nitrite NEG Urine Bilirubin NEG Urine Urobilinogen LESS THAN 2.0 Urine Leukocyte Esterase TRACE Urine RBC 2 Urine WBC 1 Urine Squamous Epithelial 3 Cells Microscopic Urinalysis Comment CATH-CULT NOT IND Urine Opiates Screen NEG Urine Barbiturates Screen NEG Urine Amphetamines Screen NEG Urine Benzodiazepines Screen NEG Urine Cocaine Screen NEG Urine Cannabinoids Screen NEG Lactic Acid Level 1.5 Ammonia 17 ([facility]) Result Diagram: 07/26/16 0439 07/26/16 0439 Imaging Last Impressions Head CT 07/25/16 1644 Signed Impressions: Service Date/Time: Monday, July 25, 2016 17:19 - CONCLUSION: 1. Lacunar infarcts bilaterally, worse on the left. 2. Negative for an acute process. Didier Clay MD FACR Renal Ultrasound 07/25/16 0000 Signed Impressions: Service Date/Time: Monday, July 25, 2016 20:55 - CONCLUSION: 1. Tiny nonobstructing calcified left renal calculi. 2. No hydronephrosis or solid renal mass. Efren Cleaning MD Chest X-Ray 07/25/16 0000 Signed Impressions: Service Date/Time: Monday, July 25, 2016 19:36 - CONCLUSION: No acute disease. Efren Cleaning MD ([facility]) Assessment and Plan Problem List: (1) Icjmx-rr-bivoqnw kidney injury Plan: Baseline SCr 1.5-1.9. Acute renal failure likely related to volume depletion and rhabdomyolysis. Agree with IVF (changed to 1/2NS this AM). Monitor for signs of fluid overload given his severely impaired myocardial function Renal US showed no obstructive process Monitor I&Os Medications should be adjusted for the patient's renal decline. Avoid nephrotoxic medications including iodinated contrast dyes and NSAIDs. Avoid gadolinium when eGFR <30. (2) Chronic systolic (congestive) heart failure Plan: With reported EF of 35%. Clinically dehydrated at the present. Continue IVF and monitor for signs of fluid retention. (3) HTN (hypertension) (4) CVA (cerebral vascular accident) Plan: Hx of. (5) Diabetes mellitus Plan: Mgmt as per primary team (6) Anemia Plan: Repeat CBC with Fe panel. (7) Rhabdomyolysis Plan: Been on ground for undetermined period of time. Was on multiple medications that can predispose to rhabdo as well (Atorvastatin, Norvasc, Seroquel) IV hydration. Serial CPK levels (8) Acidosis Plan: Likely related to ARF. Add bicarb to IVF (9) Hypernatremia Plan: Related to impaired free water intake. IVF changed to 1/2NS this AM at rate of 125mL/hr. If worsens, will change IVF to D5W. ([facility]) Assessment and Plan Continue IV hydration as ordered. If hyponatremia worsens we'll change IV subsequently to D5W with IV bicarbonate. The exam, history, and the medical decision-making described in the above note were completed with the assistance of the PA-C. I reviewed and agree with the findings presented. I attest that I had a [id number] encounter with the patient on the same day, and personally performed and documented my assessment and findings in the medical record. (Jessica Rick MD) Problem Qualifiers (1) HTN (hypertension): Qualified Code: I10 - Essential hypertension (2) Diabetes mellitus: Qualified Code: E11.51 - Type 2 diabetes mellitus with diabetic peripheral angiopathy without gangrene, without long-term current use of insulin (3) Anemia: Qualified Code: D50.8 - Other iron deficiency anemia [facility] Jul 26, 2016 13:22 Jessica Rick MD Jul 26, 2016 19:15
[2016-07-26 14:08] LABS: BICARBONATE 21.5 MEQ/L (21.0-32.0); POTASSIUM 4.3 MEQ/L (3.5-5.1)
[2016-07-26 16:00] VITALS: BP 145/75; PULSE 76; RESP 19; TEMP 97.4; O2SAT 98
[2016-07-26 16:10] LABS: FERRITIN 280 NG/ML (26-388); IMMUNOGLOBULIN A 301 MG/DL (98-543); IMMUNOGLOBULIN G 1030 MG/DL (670-1650); IMMUNOGLOBULIN M 69 MG/DL (39-238); KAPPA LAMBDA RATIO 2.31 (1.57-3.93); LAMBDA LIGHT CHAIN 128 MG/DL (90-210); TRANSFERRIN IRON PROFILE 102 MG/DL (200-360)
[2016-07-26 20:00] VITALS: BP 112/62; PULSE 69; RESP 20; TEMP 97.8; O2SAT 96
[2016-07-26] MEDS: ISOSORBIDE MONONITRATE 60 MG TAB PO SCH (21:00)
[2016-07-26] MEDS: ATORVASTATIN 80 MG TAB PO SCH (21:00)
[2016-07-27] VITALS: BP 108/69; PULSE 77; RESP 20; TEMP 97.9; O2SAT 98
[2016-07-27 05:23] LABS: BICARBONATE 20.5 MEQ/L (21.0-32.0); POTASSIUM 3.8 MEQ/L (3.5-5.1)
[2016-07-27 06:29] LABS: HEMATOCRIT 26.4 % (39.0-51.0); MEAN CELL VOLUME 87.3 FL (80.0-100.0); MEAN CORPUSCULAR HEMOGLOBIN 27.8 PG (27.0-34.0); MEAN CORPUSCULAR HGB CONC 31.9 % (32.0-36.0); PLATELET COUNT 151 TH/MM3 (150-450); RED BLOOD COUNT 3.02 MIL/MM3 (4.50-5.90); RED CELL DISTRIBUTION WIDTH 17.9 % (11.6-17.2); REVIEW FLAG FINAL; WHITE BLOOD COUNT 9.6 TH/MM3 (4.0-11.0)
[2016-07-27] MEDS ORDERED: SODIUM BICARBONATE 8.4% INJ 75 MEQ in SODIUM CHLOR 0.45% 1000 ML INJ 1,000 ML IV SCH (07:00)
[2016-07-27 08:00] VITALS: BP 98/70; PULSE 74; RESP 18; TEMP 98.2; O2SAT 97
--- NOTE | 2016-07-27 08:12 | EKG ---
Date Performed: 07/25/2016 Time Performed: 19:49:36 PTAGE: 61 years EKG: Sinus rhythm POSSIBLE LEFT ATRIAL ENLARGEMENT LEFT BUNDLE BRANCH BLOCK WITH SECONDARY ST-T WAVE CHANGES ABNORMAL ECG Compared to PREVIOUS TRACING , there has been no change, PREVIOUS TRACIN10/15/2015 22.19 DOCTOR: Yasmine Velasquez Interpretating Date/Time 07/27/2016 08:11:08
[2016-07-27] MEDS: SODIUM CHLORIDE 0.9% FLUSH 10 ML FLUSH IV FLUSH SCH ×2 (09:00→22:34)
[2016-07-27] MEDS: CARVEDILOL 12.5 MG TAB PO SCH ×2 (09:00→21:41)
[2016-07-27] MEDS: APIXABAN 2.5 MG TABLET PO SCH ×2 (09:24→21:41)
[2016-07-27] MEDS: FERROUS SULFATE 325 MG (65 MG ELEMENTAL IRON) TAB PO SCH (09:31)
--- NOTE | 2016-07-27 11:33 | HHI.FPPN ---
Subjective Remarks No acute events overnight. VS unremarkable. This morning patient does not have any complaints. He does speak intermittently. He remembers who I am and said good morning. Pt appears to be listening and comprehending when spoken too. ( Cortney Harrington MD R2) Objective Vitals Vital Signs Date Time Temp Pulse Resp B/P Pulse Ox O2 Delivery O2 Flow Rate FiO2 07/27/16 08:00 98.2 74 18 98/70 97 07/27/16 00:00 97.9 77 20 108/69 98 07/26/16 20:00 97.8 69 20 112/62 96 07/26/16 16:00 97.4 76 19 145/75 98 07/26/16 12:00 97.9 78 17 141/70 97 I/O 07/26/16 07/26/16 07/26/16 07/27/16 07/27/16 07/27/16 07:00 15:00 23:00 07:00 15:00 23:00 Intake Total 0 ml 1585 ml 125 ml 300 ml Output Total 250 ml 350 ml 200 ml 250 ml Balance -250 ml 1235 ml -75 ml 50 ml Intake Oral 0 ml 60 ml 125 ml 300 ml IV Total 1525 ml Output Urine Total 250 ml 350 ml 200 ml 250 ml # Bowel Movements 0 0 1 (Cortney Harrington MD R2) Result Diagram: 07/27/1642007/27/16420 Objective Remarks GEN: Well-developed, well-nourished patient. No acute distress.Laying in bed. Stares ahead but did answer a few questions and said good morning.He also looked at his IV when I was explaining why he was getting fluids. CV: Regular rate and rhythm without obvious murmurs LUNGS: Clear to auscultation bilaterally. Normal respiratory effort. No wheezes , rales, rhonchi. GI: +Bowel sounds EXT: No edema. No calf tenderness on left leg. NEURO/PSYCH: Awake, alert. Normal speech. Unable to assess orientation. (Cortney Andrade MD R2) A/P Assessment and Plan 61 yo M, hx of prolonged hospital stay from September 2015 - July 18, 2016, having returned to the hospital on July 22 for fall, now being admitted for AMS, rhabdomyolysis with CK 3000, hypernatremia and anemia. Discharge Planning 3-4days pending improvement in renal function and hypernatremia sdw Dr. Nguyễn ([facility]) Attending Attestation Patient seen and examined. Case reviewed and discussed with the resident team. Agree with plan of care as discussed with me and documented in the resident note. (Fifi Nguyễn MD) Problem List: (1) Altered mental status Status: Acute Plan: Found to hypernatremic on admission as well as acute on chronic PAT. Electrolyte abnormality and azotemia likely contributing to presentation. Patient was on Lactulose at last hospitalization, not taking at home. Hep panel was negative. Baseline mental status is unclear but pt does appear to have had multiple ischemic strokes in the past including lacunar infarcts 10/20/15. -Leukocytosis resolved, likely due to hemoconcentration -Hypernatremia improving from a high of 160 -Negative UA and tox screen. -fluids, see rate below -ammonia, lactic acid WNL -Consider seroquel it patient becomes agitated. Currently not needed Imaging: * CXR: unremarkable * Head CT negative for acute process. Consistent with chronic change. * May benefit from MRI if patient's verbal status does not continue improve as electrolytes and renal function improves. (2) Hypernatremia Status: Acute Plan: See plan above (3) Rxawh-jx-izzlitc kidney injury Status: Acute Plan: Baseline GFR 50s, most recently 48 on 07/05/16. There is prerenal component with patient having dehydration. Associated rhabdomyolysis likely contributing. No hyperkalemia. -Avoid nephrotoxic meds -Closely monitor I&O -Renal US: unremarkable Consult nephrology: appreciate recommendations * serial CPK * Bicard added to fluids * if hypernatremia worsens, consider changing fluids to D5W * Iron studies ordered (4) Chronic systolic (congestive) heart failure Status: Chronic Plan: Patient with hx of CHF, EF 35% from September 2015. Not currently appearing to be fluid overloaded. -Closely monitor I&O (5) Coronary artery disease Status: Chronic Plan: Continue Coreg 12.5 mg po bid Continue Eliquis Continue Atorvastatin 80 mg po hs Continue Isosorbide Mononitrate 60 mg po hs (6) Anemia Status: Chronic Plan: Hx of anemia. Baseline Hg 9-10. -Ferritin normal and TIBC is low. Etiology likely not due iron deficiency -Retic count ordered -Continue Fe supplementation, will consider discontinuing as supplementation is not needed (7) HTN (hypertension) Status: Chronic Plan: Continue Amlodipine 10 mg po daily (8) Diabetes mellitus Status: Chronic Plan: A1C 6.9 on 11/25/15, not currently on DM meds -Closely monitor BMP, consider adding sliding scale once patient's PO intake improves (9) History of lacunar cerebrovascular accident Status: Chronic Plan: See plan above (10) Nutrition, metabolism, and development symptoms Status: Acute Plan: NS at 125 + bicarb mls/hr Electrolytes: hypernatremia, see plan above Eliquis continued (Cortney Harrington MD R2) Problem Qualifiers (1) Anemia: Qualified Code: D50.8 - Other iron deficiency anemia (2) HTN (hypertension): Qualified Code: I10 - Essential hypertension (3) Diabetes mellitus: Qualified Code: E11.51 - Type 2 diabetes mellitus with diabetic peripheral angiopathy without gangrene, without long-term current use of insulin Cortney Harrington MD R2 Jul 27, 2016 11:33 Fifi Nguyễn MD Jul 27, 2016 13:42
[2016-07-27 11:45] LABS: RETIC % 2.4 % (0.4-3.0); REVIEW FLAG FINAL
[2016-07-27 12:00] VITALS: BP 97/49; PULSE 78; RESP 20; TEMP 97.1; O2SAT 96
[2016-07-27 14:37] LABS: CKMB 4.6 NG/ML (0.5-3.6)
[2016-07-27 16:00] VITALS: BP 101/69; PULSE 75; RESP 18; TEMP 97.9; O2SAT 98
--- NOTE | 2016-07-27 18:19 | HHI.NPPN ---
Subjective History of Present Illness The patient is a 61 yo [place] male who was brought to this facility via EMS 07/25 after a DCF visit resulted in finding him on the floor covered in his own waste. He was in the ED on 07/22 for a fall and was discharged that day. Suspected that he may have fallen again and been down on the floor since 07/22. He is non-verbal and there is no family present in room. History obtained from previous medical records. Uncertain if any medications have been taken at home. Also unclear to me as what his normal mentation is. According to previous labs, has underlying CKD with baseline SCr of 1.5-1.9. Noted EF of 35% as per echo in 2016. CAD s/p 4 vessel CABG, DM, HTN, PAD s/p r BKA Admitting SCr 7.00 that improved to 6.16 at time of consult. He has been bolused multiple times with NS and was on maintenance fluid of NS until this AM. Switched to 1/2 NS given his hyponatremia. His working dx at this time is rhabdo Interval History Pt sleeping. Does no rouse when examined. ([facility]) Objective Data Data 07/26/16 07/27/16 19:00 07:00 Intake Total 1585 ml 425 ml Output Total 350 ml 450 ml Balance 1235 ml -25 ml Intake Oral 60 ml 425 ml IV Total 1525 ml Output Urine Total 350 ml 450 ml # Bowel Movements 0 1 Vital Signs Date Time Temp Pulse Resp B/P Pulse Ox O2 Delivery O2 Flow Rate FiO2 07/27/16 16:00 97.9 75 18 101/69 98 07/27/16 12:00 97.1 78 20 97/49 96 07/27/16 08:00 98.2 74 18 98/70 97 07/27/16 00:00 97.9 77 20 108/69 98 07/26/16 20:00 97.8 69 20 112/62 96 ([facility]) -: 07/27/1642007/27/16420 Medication Review Current Medications Medications (Trade) Dose Ordered Sig/Estuardo Route Start Time Stop Time Status Last Admin (Eliquis) 2.5 mg BID PO 07/25/16 21:00 07/27/16 09:24 (Lipitor) 80 mg HS PO 07/25/16 21:00 07/26/16 21:00 (Coreg) 25 mg BID PO 07/25/16 21:00 07/26/16 21:00 (Ferrous Sulfate) 325 mg DAILY@08 PO 07/26/16 08:00 07/27/16 09:31 (Imdur) 60 mg HS PO 07/25/16 21:00 07/26/16 21:00 (NS Flush) 2 ml UNSCH PRN IV FLUSH 07/25/16 18:30 (NS Flush) 2 ml BID IV FLUSH 07/25/16 21:00 07/26/16 21:00 (Narcan Inj) 0.4 mg UNSCH PRN IV 07/25/16 18:30 Miscellaneous 1 ea 1 ea UNSCH PRN OTHER 07/25/16 18:45 (Sodium Bicarbonate 8.4% Inj/05/02 NS 1000 ml Inj) 1,075 ml @ 125 mls/hr Q8H36M IV 07/27/16 07:00 07/27/16 05:35 (Norvasc) 10 mg DAILY PO 07/28/16 09:00 ([facility]) Physical Exam General Appearance: Comfortable ([facility]) Neck Neck Exam: Neck Supple, Trachea Midline ([facility]) Pulmonary Resp Exam: Clear Bilaterally, Breath Sounds Equal ([facility]) Cardiology CV Exam: Regular, Normal Sinus Rhythm ([facility]) Gastrointestinal/Abdomen GI Exam: Soft, Non-Tender ([facility]) Integumentary Skin Exam: Clear, Warm ([facility]) Extremeties Extremities Exam: No Edema ([facility]) Assessment/Plan Problem List: (1) Zhwuv-uj-jhdrpfg kidney injury Plan: Baseline SCr 1.5-1.9. Acute renal failure likely related to volume depletion and rhabdomyolysis. Continue on IVF, but change to D5 with bicarb given persistent hypernatremia. Medications should be adjusted for the patient's renal decline. Avoid nephrotoxic medications including iodinated contrast dyes and NSAIDs. Avoid gadolinium when eGFR <30. (2) Chronic systolic (congestive) heart failure Plan: With reported EF of 35%. Clinically dehydrated at the present. Continue IVF and monitor for signs of fluid retention. (3) HTN (hypertension) Plan: BP meds held given hypotension (4) CVA (cerebral vascular accident) Plan: Hx of. (5) Diabetes mellitus Plan: Mgmt as per primary team (6) Anemia Plan: Fe low. Check FOBT. May benefit from Venofer if primary agreeable (7) Rhabdomyolysis Plan: CPK improving (8) Acidosis Plan: Likely related to ARF. Bicarb added to IVF (9) Hypernatremia Plan: Change IVF to D5 (10) Vitamin D deficiency Plan: Start cholecalciferol ([facility]) Plan The exam, history, and the medical decision-making described in the above note were completed with the assistance of the PABerto. I reviewed and agree with the findings presented. (Jessica Rick MD) Problem Qualifiers (1) HTN (hypertension): Qualified Code: I10 - Essential hypertension (2) Diabetes mellitus: Qualified Code: E11.51 - Type 2 diabetes mellitus with diabetic peripheral angiopathy without gangrene, without long-term current use of insulin (3) Anemia: Qualified Code: D50.8 - Other iron deficiency anemia [facility] Jul 27, 2016 18:19 Jessica Rick MD Jul 27, 2016 19:08
[2016-07-27] MEDS: SODIUM BICARBONATE 8.4% INJ 75 MEQ in DEXTROSE 5% IN WATE 1000ML INJ 1,000 ML IV SCH ×2 (18:42)
[2016-07-27 20:00] VITALS: BP 126/78; PULSE 80; RESP 20; TEMP 97.8; O2SAT 97
[2016-07-27] MEDS: ATORVASTATIN 80 MG TAB PO SCH (21:41)
[2016-07-27] MEDS: ISOSORBIDE MONONITRATE 60 MG TAB PO SCH (21:41)
[2016-07-28] VITALS: BP 130/80; PULSE 82; RESP 20; TEMP 96.4; O2SAT 96
[2016-07-28] MEDS: SODIUM BICARBONATE 8.4% INJ 75 MEQ in DEXTROSE 5% IN WATE 1000ML INJ 1,000 ML IV SCH ×6 (03:36→20:48)
[2016-07-28 05:38] LABS: HEMATOCRIT 23.2 % (39.0-51.0); MEAN CELL VOLUME 84.3 FL (80.0-100.0); MEAN CORPUSCULAR HEMOGLOBIN 28.1 PG (27.0-34.0); MEAN CORPUSCULAR HGB CONC 33.4 % (32.0-36.0); PLATELET COUNT 152 TH/MM3 (150-450); RED BLOOD COUNT 2.75 MIL/MM3 (4.50-5.90); RED CELL DISTRIBUTION WIDTH 17.5 % (11.6-17.2); REVIEW FLAG FINAL; WHITE BLOOD COUNT 8.3 TH/MM3 (4.0-11.0)
[2016-07-28 05:53] LABS: BICARBONATE 23.1 MEQ/L (21.0-32.0); POTASSIUM 3.6 MEQ/L (3.5-5.1)
[2016-07-28 06:09] LABS: CKMB 4.3 NG/ML (0.5-3.6)
[2016-07-28 08:00] VITALS: BP 112/65; PULSE 79; RESP 18; TEMP 96.7; O2SAT 97
[2016-07-28] MEDS: SODIUM CHLORIDE 0.9% FLUSH 10 ML FLUSH IV FLUSH SCH ×2 (09:00→21:00)
[2016-07-28] MEDS: CARVEDILOL 12.5 MG TAB PO SCH ×2 (09:00→21:58)
--- NOTE | 2016-07-28 09:03 | HHI.FPPN ---
Subjective Remarks Pt seen and examined this morning. No acute events overnight. Minimal responses , mumbles. No complaints when asked. (Rich Vaughn MD R1) Objective Vitals Vital Signs Date Time Temp Pulse Resp B/P Pulse Ox O2 Delivery O2 Flow Rate FiO2 07/28/16 00:00 96.4 82 20 130/80 96 07/27/16 20:00 97.8 80 20 126/78 97 07/27/16 16:00 97.9 75 18 101/69 98 07/27/16 12:00 97.1 78 20 97/49 96 I/O 07/27/16 07/27/16 07/27/16 07/28/16 07/28/16 07/28/16 07:00 15:00 23:00 07:00 15:00 23:00 Intake Total 300 ml 788 ml 600 ml 320 ml 80 ml Output Total 250 ml 250 ml 550 ml 500 ml Balance 50 ml 538 ml 50 ml -180 ml 80 ml Intake Oral 300 ml 120 ml 600 ml 320 ml IV Total 668 ml 80 ml Output Urine Total 250 ml 250 ml 550 ml 500 ml # Bowel Movements 1 0 1 (Rich Vaughn MD R1) Result Diagram: 07/28/1643307/28/16433 Objective Remarks GEN: Well-developed, well-nourished patient. No acute distress.Laying in bed. Stares straight ahead CV: Regular rate and rhythm without obvious murmurs LUNGS: Clear to auscultation bilaterally. Normal respiratory effort. No wheezes , rales, rhonchi. GI: Soft, non-tender EXT: No edema. NEURO/PSYCH: Awake, alert. (Rich Vaughn MD R1) A/P Assessment and Plan 61 yo M, hx of prolonged hospital stay from September 2015 - July 18, 2016, having returned to the hospital on July 22 for fall, now being admitted for AMS, rhabdomyolysis with CK 3000, hypernatremia and anemia. Discharge Planning 3-4days pending improvement in renal function and hypernatremia dw Dr. Nguyễn (Rich Vaughn MD R1) Attending Attestation Patient seen and examined. Case reviewed and discussed with the resident team. Agree with plan of care as discussed with me and documented in the resident note. (Fifi Nguyễn MD) Problem List: (1) Altered mental status Status: Acute Plan: Found to hypernatremic on admission as well as acute on chronic PAT. Electrolyte abnormality and azotemia likely contributing to presentation. Patient was on Lactulose at last hospitalization, not taking at home. Hep panel was negative. Baseline mental status is unclear but pt does appear to have had multiple ischemic strokes in the past including lacunar infarcts 10/20/15. -Leukocytosis resolved, likely due to hemoconcentration -Hypernatremia improving from a high of 160 -Negative UA and tox screen. -fluids, see rate below -ammonia, lactic acid WNL -Consider seroquel it patient becomes agitated. Currently not needed -Speech therapy following, appreciate recs Imaging: * CXR: unremarkable * Head CT negative for acute process. Consistent with chronic change. * May benefit from MRI if patient's verbal status does not continue improve as electrolytes and renal function improves. (2) Hypernatremia Status: Acute Plan: See plan above (3) Gihay-xe-ctfyaze kidney injury Status: Acute Plan: Baseline GFR 50s, most recently 48 on 07/05/16. There is prerenal component with patient having dehydration. Associated rhabdomyolysis likely contributing. No hyperkalemia. -Avoid nephrotoxic meds -Closely monitor I&O -Renal US: unremarkable -Iron studies: Low iron, normal ferritin Consult nephrology: appreciate recommendations * serial CPK * Changed fluids to D5+bicarb * Started cholecalciferol (4) Chronic systolic (congestive) heart failure Status: Chronic Plan: Patient with hx of CHF, EF 35% from September 2015. Not currently appearing to be fluid overloaded. -Closely monitor I&O (5) Coronary artery disease Status: Chronic Plan: Continue Coreg 12.5 mg po bid Continue Eliquis Continue Atorvastatin 80 mg po hs Continue Isosorbide Mononitrate 60 mg po hs (6) Anemia Status: Chronic Plan: Hx of anemia. Baseline Hg 9-10. Downtrending. -Ferritin normal and TIBC is low. Etiology likely not due iron deficiency; Normal retic count -Continue Fe supplementation for now -Daily H/H -FOBT (7) HTN (hypertension) Status: Chronic Plan: Continue Amlodipine 10 mg po daily (8) Diabetes mellitus Status: Chronic Plan: A1C 6.9 on 11/25/15, not currently on DM meds -Closely monitor BMP, consider adding sliding scale once patient's PO intake improves (9) History of lacunar cerebrovascular accident Status: Chronic Plan: See plan above (10) Nutrition, metabolism, and development symptoms Status: Acute Plan: D5 @ 125 + bicarb mls/hr Electrolytes: hypernatremia, see plan above Elimarcis continued (Rich Vaughn MD R1) Problem Qualifiers (1) Coronary artery disease: Qualified Code: I25.10 - Coronary artery disease involving [place] heart without angina pectoris, unspecified vessel or lesion type (2) Anemia: Qualified Code: D50.8 - Other iron deficiency anemia (3) HTN (hypertension): Qualified Code: I10 - Essential hypertension (4) Diabetes mellitus: Qualified Code: E11.51 - Type 2 diabetes mellitus with diabetic peripheral angiopathy without gangrene, without long-term current use of insulin Rich Vaughn MD R1 Jul 28, 2016 09:03 Fifi Nguyễn MD Jul 28, 2016 12:09
[2016-07-28] MEDS: CHOLECALCIFEROL (VIT D3) 1000 UNIT TAB PO SCH (09:15)
[2016-07-28] MEDS: APIXABAN 2.5 MG TABLET PO SCH ×2 (09:17→21:58)
[2016-07-28] MEDS: FERROUS SULFATE 325 MG (65 MG ELEMENTAL IRON) TAB PO SCH (09:17)
--- NOTE | 2016-07-28 09:36 | HHI.NPPN ---
Subjective History of Present Illness The patient is a 61 yo [place] male who was brought to this facility via EMS 07/25 after a DCF visit resulted in finding him on the floor covered in his own waste. He was in the ED on 07/22 for a fall and was discharged that day. Suspected that he may have fallen again and been down on the floor since 07/22. He is non-verbal and there is no family present in room. History obtained from previous medical records. Uncertain if any medications have been taken at home. Also unclear to me as what his normal mentation is. According to previous labs, has underlying CKD with baseline SCr of 1.5-1.9. Noted EF of 35% as per echo in 2016. CAD s/p 4 vessel CABG, DM, HTN, PAD s/p r BKA Admitting SCr 7.00 that improved to 6.16 at time of consult. He has been bolused multiple times with NS and was on maintenance fluid of NS until this AM. Switched to 1/2 NS given his hyponatremia. His working dx at this time is rhabdo Interval History No status change. Resting, non-vocal ([facility]) Review of Systems General General Remarks Not obtainable ([facility]) Objective Data Data 07/27/16 07/28/16 19:00 07:00 Intake Total 788 ml 920 ml Output Total 250 ml 1050 ml Balance 538 ml -130 ml Intake Oral 120 ml 920 ml IV Total 668 ml Output Urine Total 250 ml 1050 ml # Bowel Movements 1 0 Vital Signs Date Time Temp Pulse Resp B/P Pulse Ox O2 Delivery O2 Flow Rate FiO2 07/28/16 00:00 96.4 82 20 130/80 96 07/27/16 20:00 97.8 80 20 126/78 97 07/27/16 16:00 97.9 75 18 101/69 98 07/27/16 12:00 97.1 78 20 97/49 96 ([facility]) -: 07/28/16 0434 07/28/16 043 Medication Review Current Medications Medications (Trade) Dose Ordered Sig/Estuardo Route Start Time Stop Time Status Last Admin (Eliquis) 2.5 mg BID PO 07/25/16 21:00 07/28/16 09:17 (Lipitor) 80 mg HS PO 07/25/16 21:00 07/27/16 21:41 (Coreg) 25 mg BID PO 07/25/16 21:00 07/27/16 21:41 (Ferrous Sulfate) 325 mg DAILY@08 PO 07/26/16 08:00 07/28/16 09:17 (Imdur) 60 mg HS PO 07/25/16 21:00 07/27/16 21:41 (NS Flush) 2 ml UNSCH PRN IV FLUSH 07/25/16 18:30 (NS Flush) 2 ml BID IV FLUSH 07/25/16 21:00 07/27/16 22:34 (Narcan Inj) 0.4 mg UNSCH PRN IV 07/25/16 18:30 (Pill Splitter) 1 ea UNSCH PRN OTHER 07/25/16 18:45 (Norvasc) 10 mg DAILY PO 07/28/16 09:00 Cholecalciferol 2000 units 2,000 units DAILY PO 07/28/16 09:00 07/28/16 09:15 (Sodium Bicarbonate 8.4% Inj/D5W 1000 ml Inj) 1,075 ml @ 125 mls/hr Q8H36M IV 07/27/16 19:00 07/27/16 18:42 ([facility]) Physical Exam General Appearance: Comfortable ([facility]) Neck Neck Exam: Neck Supple, Trachea Midline ([facility]) Pulmonary Resp Exam: Clear Bilaterally, Breath Sounds Equal ([facility]) Cardiology CV Exam: Regular, Normal Sinus Rhythm ([facility]) Gastrointestinal/Abdomen GI Exam: Soft, Non-Tender ([facility]) Integumentary Skin Exam: Clear, Warm ([facility]) Extremeties Extremities Exam: No Edema ([facility]) Assessment/Plan Problem List: (1) Hguak-xy-daskpzf kidney injury Plan: Baseline SCr 1.5-1.9. Acute renal failure likely related to volume depletion Renal functions slowly improving. Serology pending Continue on IVF Medications should be adjusted for the patient's renal decline. Avoid nephrotoxic medications including iodinated contrast dyes and NSAIDs. Avoid gadolinium when eGFR <30. (2) Chronic systolic (congestive) heart failure Plan: With reported EF of 35%. Clinically dehydrated at the present. Continue IVF and monitor for signs of fluid retention. (3) HTN (hypertension) Plan: BP meds held given hypotension (4) CVA (cerebral vascular accident) Plan: Hx of. (5) Diabetes mellitus Plan: Mgmt as per primary team (6) Anemia Plan: Fe low. Pending FOBT May benefit from Venofer if primary agreeable (7) Rhabdomyolysis Plan: CPK improving (8) Acidosis Plan: Likely related to ARF. Bicarb added to IVF (9) Hypernatremia Plan: Improving. Continue D5 (10) Vitamin D deficiency Plan: Start cholecalciferol ([facility]) Plan The exam, history, and the medical decision-making described in the above note were completed with the assistance of the PA-C. I reviewed and agree with the findings presented. I attest that I had a lxku-ju-rhua encounter with the patient on the same day, and personally performed and documented my assessment and findings in the medical record. (Jessica Rick MD) Problem Qualifiers (1) HTN (hypertension): Qualified Code: I10 - Essential hypertension (2) Diabetes mellitus: Qualified Code: E11.51 - Type 2 diabetes mellitus with diabetic peripheral angiopathy without gangrene, without long-term current use of insulin (3) Anemia: Qualified Code: D50.8 - Other iron deficiency anemia [facility] Jul 28, 2016 09:36 Jessica Rick MD Jul 28, 2016 19:02
[2016-07-28 12:00] VITALS: BP 117/68; PULSE 80; RESP 20; TEMP 97.8; O2SAT 96
[2016-07-28 16:00] VITALS: BP 112/59; PULSE 82; RESP 20; TEMP 98.1; O2SAT 98
[2016-07-28 17:33] LABS: ALBUMIN SPE 3.08 GM/DL (3.50-5.00); ALPHA 1 GLOBULIN 0.26 GM/DL (0.11-0.29); ALPHA 2 GLOBULIN 0.91 GM/DL (0.22-1.00); BETA GLOBULINS (SPE) 0.74 GM/DL (0.53-1.03)
[2016-07-28 19:04] LABS: HEMATOCRIT 25.4 % (39.0-51.0); REVIEW FLAG FINAL
[2016-07-28 20:00] VITALS: BP 120/67; PULSE 84; RESP 19; TEMP 97.3; O2SAT 94
[2016-07-28] MEDS: ISOSORBIDE MONONITRATE 60 MG TAB PO SCH (21:58)
[2016-07-28] MEDS: ATORVASTATIN 80 MG TAB PO SCH (21:58)
[2016-07-28 23:41] VITALS: BP 129/77; PULSE 81; RESP 21; TEMP 97.6; O2SAT 96
[2016-07-29] MEDS: SODIUM BICARBONATE 8.4% INJ 75 MEQ in DEXTROSE 5% IN WATE 1000ML INJ 1,000 ML IV SCH ×4 (01:06→15:09)
[2016-07-29 03:50] LABS: KAPPA/LAMBDA FREE 2.16 (0.26-1.65)
[2016-07-29 04:54] LABS: MEAN CELL VOLUME 83.4 FL (80.0-100.0); MEAN CORPUSCULAR HEMOGLOBIN 28.3 PG (27.0-34.0); MEAN CORPUSCULAR HGB CONC 33.9 % (32.0-36.0); PLATELET COUNT 148 TH/MM3 (150-450); RED BLOOD COUNT 2.88 MIL/MM3 (4.50-5.90); RED CELL DISTRIBUTION WIDTH 17.5 % (11.6-17.2); REVIEW FLAG FINAL; WHITE BLOOD COUNT 10.2 TH/MM3 (4.0-11.0)
[2016-07-29 05:19] LABS: BICARBONATE 24.3 MEQ/L (21.0-32.0); POTASSIUM 3.4 MEQ/L (3.5-5.1)
[2016-07-29 05:47] LABS: CKMB 3.2 NG/ML (0.5-3.6)
[2016-07-29 08:00] VITALS: BP 105/62; PULSE 76; RESP 18; TEMP 95.5; O2SAT 97
--- NOTE | 2016-07-29 08:32 | HHI.FPPN ---
Subjective Remarks No acute events overnight. Vital signs unremarkable. This morning patient denies any pain in is more awake, alert and responsive. Still has limited dialogue but does answer questions. Has no complaints (Cortney Harrington MD R2) Objective Vitals Vital Signs Date Time Temp Pulse Resp B/P Pulse Ox O2 Delivery O2 Flow Rate FiO2 07/29/16 08:00 95.5 76 18 105/62 97 07/28/16 23:41 97.6 81 21 129/77 96 07/28/16 20:00 97.3 84 19 120/67 94 07/28/16 16:00 98.1 82 20 112/59 98 07/28/16 12:00 97.8 80 20 117/68 96 I/O 07/28/16 07/28/16 07/28/16 07/29/16 07/29/16 07/29/16 07:00 15:00 23:00 07:00 15:00 23:00 Intake Total 320 ml 560 ml 1686 ml 955 ml Output Total 500 ml 550 ml 600 ml 750 ml Balance -180 ml 10 ml 1086 ml 205 ml Intake Oral 320 ml 480 ml 240 ml 120 ml IV Total 80 ml 1446 ml 835 ml Output Urine Total 500 ml 550 ml 600 ml 750 ml # Bowel Movements 2 0 1 (Cortney Harrington MD R2) Result Diagram: 07/29/1642407/29/16424 Objective Remarks GEN: Well-developed, well-nourished patient. No acute distress.Laying in bed. CV: Regular rate and rhythm without obvious murmurs LUNGS: Clear to auscultation bilaterally. Normal respiratory effort. No wheezes , rales, rhonchi. GI: Soft, non-tender EXT: No edema. NEURO/PSYCH: Awake, alert. (Cortney Harrington MD R2) A/P Assessment and Plan 61 yo M, hx of prolonged hospital stay from September 2015 - July 18, 2016, having returned to the hospital on July 22 for fall. Admitted for AMS, rhabdomyolysis with CK 3000, hypernatremia and anemia. Discharge Planning 2-3 days pending improvement in renal function and hypernatremia wdw Dr. Shreya Vaughn (Cortney Harrington MD R2) Attending Attestation Patient seen and examined. Case reviewed and discussed with the resident team. Agree with plan of care as discussed with me and documented in the resident note. (Mackenzie Cash MD) Problem List: (1) Altered mental status Status: Resolved Plan: Found to hypernatremic on admission as well as acute on chronic PAT. Electrolyte abnormality and azotemia likely contributed to presentation. Baseline mental status is unclear but pt does appear to have had multiple ischemic strokes in the past including lacunar infarcts 10/20/15. -Leukocytosis resolved, likely due to hemoconcentration -Hypernatremia improving from a high of 160 -Negative UA and tox screen. -fluids, see rate below -ammonia, lactic acid WNL -Consider seroquel it patient becomes agitated. Currently not needed -Speech therapy following, appreciate recs Imaging: * CXR: unremarkable * Head CT negative for acute process. Consistent with chronic change. (2) Hypernatremia Status: Acute Plan: See plan above (3) Anemia Status: Chronic Plan: Hx of anemia. Baseline Hg 9-10. Downtrending but now stable -Ferritin normal and TIBC is low. Etiology likely not due iron deficiency; Inappropriately Normal retic count -Continue Fe supplementation for now -Daily H/H -FOBT positive GI consulted: appreciate recommendations (4) Wnida-fc-ydtbevm kidney injury Status: Acute Plan: Baseline GFR 50s, most recently 48 on 07/05/16. There is prerenal component with patient having dehydration. Associated rhabdomyolysis likely contributing. No hyperkalemia. -Avoid nephrotoxic meds -Closely monitor I&O * discontinued cisse * ordered condom cath -Renal US: unremarkable Consult nephrology: appreciate recommendations * serial CPK * Changed fluids to D5+bicarb * Started cholecalciferol * may benefit from Venofer (will discuss with attending about starting this medication) (5) Chronic systolic (congestive) heart failure Status: Chronic Plan: Patient with hx of CHF, EF 35% from September 2015. Not currently appearing to be fluid overloaded. -Closely monitor I&O (6) Coronary artery disease Status: Chronic Plan: Continue Coreg 12.5 mg po bid Continue Eliquis Continue Atorvastatin 80 mg po hs Continue Isosorbide Mononitrate 60 mg po hs (7) HTN (hypertension) Status: Chronic Plan: Continue Amlodipine 10 mg po daily -Hold for SBP <110 (8) Diabetes mellitus Status: Chronic Plan: A1C 6.9 on 11/25/15, not currently on DM meds -Closely monitor BMP, consider adding sliding scale once patient's PO intake improves (9) Nutrition, metabolism, and development symptoms Status: Acute Plan: D5 @ 100 + bicarb mls/hr Electrolytes: hypernatremia, see plan above Rosamariamarcfidencio continued (Cortney Harrington MD R2) Problem Qualifiers (1) Anemia: Qualified Code: D50.8 - Other iron deficiency anemia (2) Coronary artery disease: Qualified Code: I25.10 - Coronary artery disease involving [place] heart without angina pectoris, unspecified vessel or lesion type (3) HTN (hypertension): Qualified Code: I10 - Essential hypertension (4) Diabetes mellitus: Qualified Code: E11.51 - Type 2 diabetes mellitus with diabetic peripheral angiopathy without gangrene, without long-term current use of insulin Cortney Harrington MD R2 Jul 29, 2016 08:32 Mackenzie Cash MD Jul 31, 2016 10:15
[2016-07-29] MEDS: CARVEDILOL 12.5 MG TAB PO SCH ×2 (08:53→21:05)
[2016-07-29] MEDS: FERROUS SULFATE 325 MG (65 MG ELEMENTAL IRON) TAB PO SCH (08:53)
[2016-07-29] MEDS: APIXABAN 2.5 MG TABLET PO SCH ×2 (08:54→21:05)
[2016-07-29] MEDS: SODIUM CHLORIDE 0.9% FLUSH 10 ML FLUSH IV FLUSH SCH ×2 (08:54→21:03)
[2016-07-29] MEDS: CHOLECALCIFEROL (VIT D3) 1000 UNIT TAB PO SCH (08:54)
--- NOTE | 2016-07-29 10:08 | PD.CONS ---
HPI History of Present Illness This is a 61 year old male who was found by DCF at home on the ground, lying in feces. He was brought to the ER for further evaluation and it was determined that he was not safe to be at home alone. His next of kin, sister Tigist Amado [phone] has not been able to be contacted. He has since been hospitalized for altered mental status, anemia, acute on chronic kidney injury with multiple electrolyte abnormalities, chronic congestive heart failure, coronary artery disease, hypertension, and DM. He also has a hx of a lacunar CVA and takes Eliquis for this. He was found to have iron deficiency anemia and hemoccult positive stool. GI has been consulted for further evaluation. He is lethargic , oriented to self, but does not consistently answer questions and is unable to provide any history. It is unclear if he has ever had an EGD/Colonoscopy or had previous GI bleeding. The patient tells me that he recently had a colonoscopy, but then would not provide any further history. He denies any abdominal pain or nausea, but would not answer any further questions. The nurse reports that he has not had any obvious active bleeding. She also denies any nausea or vomiting. Attempted to call sister Tigist Amado at [phone], but the number states that she is not accepting calls at this time and there is no way to leave a message. (Shayna Cortez) PFSH Past Medical History CAD HTN Lacunar CVA Hyperlipidemia DM CHF PAD Questionable SYLVIA Past Surgical History CABG Left kidney stent Tracheostomy as child Right BKA (Shayna Cortez) Coded Allergies: Pen-Vee K (Verified Allergy, Severe, THROAT SWELLS, 07/25/16) Penicillin (Verified Allergy, Unknown, SWELLING, 07/25/16) Uncoded Allergies: aspartame (Adverse Reaction, Severe, severe nose bleed, 10/24/13) Medications Allergies Coded Allergies Type Severity Reaction Last Updated Verified Pen-Vee K Allergy Severe THROAT SWELLS 07/25/16 Yes Penicillin Allergy Unknown SWELLING 07/25/16 Yes Uncoded Allergies Type Severity Reaction Last Updated Verified aspartame Adverse Reaction Severe severe nose bleed 10/24/13 Active Scripts Medications Dose Route/Sig Days Date Category Dose Instructions Eliquis (Apixaban) 2.5 Mg Tab 2.5 Mg PO BID 30 07/15/16 Rx Norvasc (Amlodipine Besylate) 10 Mg Tab 10 Mg PO DAILY 30 07/15/16 Rx Wheelchair (Device) 1 Mis Mis 1 Ea .ROUTE DIRECTED 07/14/16 Rx Atorvastatin (Atorvastatin Calcium) 80 Mg Tab 80 Mg PO HS 07/07/16 Rx Start on 07/08/16 Quetiapine (Quetiapine Fumarate) 100 Mg Tab 100 Mg PO DAILY 07/07/16 Rx Quetiapine (Quetiapine Fumarate) 100 Mg Tab 150 Mg PO HS 07/07/16 Rx Isosorbide Mononitrate ER (Isosorbide Mononitrate) 60 Mg Tab 60 Mg PO HS 07/07/16 Rx Ferrous Sulfate 325 Mg Tab 325 Mg PO DAILY@08 07/07/16 Rx Take 1 hour before you take Pepcid in the morning. Famotidine 20 Mg Tab 20 Mg PO BID 07/07/16 Rx Coreg (Carvedilol) 12.5 Mg Tab 25 Mg PO BID 07/07/16 Rx Family History Unable to obtain Social History Unable to obtain (Shayna Cortez) Review of Systems Gastrointestinal: DENIES: Abdominal pain ROS Unable to obtain (Shayna Cortez) GI Exam Vitals I&O Vital Signs Date Time Temp Pulse Resp B/P Pulse Ox O2 Delivery O2 Flow Rate FiO2 07/29/16 08:00 95.5 76 18 105/62 97 07/28/16 23:41 97.6 81 21 129/77 96 07/28/16 20:00 97.3 84 19 120/67 94 07/28/16 16:00 98.1 82 20 112/59 98 07/28/16 12:00 97.8 80 20 117/68 96 I/O 07/28/16 07/28/16 07/28/16 07/29/16 07/29/16 07/29/16 07:00 15:00 23:00 07:00 15:00 23:00 Intake Total 320 ml 560 ml 1686 ml 955 ml Output Total 500 ml 550 ml 600 ml 750 ml Balance -180 ml 10 ml 1086 ml 205 ml Intake Oral 320 ml 480 ml 240 ml 120 ml IV Total 80 ml 1446 ml 835 ml Output Urine Total 500 ml 550 ml 600 ml 750 ml # Bowel Movements 2 0 1 Imaging Last Impressions Head CT 07/25/16 1644 Signed Impressions: Service Date/Time: Monday, July 25, 2016 17:19 - CONCLUSION: 1. Lacunar infarcts bilaterally, worse on the left. 2. Negative for an acute process. Didier Clay MD FACR Renal Ultrasound 07/25/16 0000 Signed Impressions: Service Date/Time: Monday, July 25, 2016 20:55 - CONCLUSION: 1. Tiny nonobstructing calcified left renal calculi. 2. No hydronephrosis or solid renal mass. Efren Cleaning MD Chest X-Ray 07/25/16 0000 Signed Impressions: Service Date/Time: Monday, July 25, 2016 19:36 - CONCLUSION: No acute disease. Efren Cleaning MD Laboratory Test 07/28/16 07/29/16 18:10 04:25 Hemoglobin 8.3 GM/DL 8.1 GM/DL Hematocrit 25.4 % 24.0 % White Blood Count 10.2 TH/MM3 Red Blood Count 2.88 MIL/MM3 Mean Corpuscular Volume 83.4 FL Mean Corpuscular Hemoglobin 28.3 PG Mean Corpuscular Hemoglobin 33.9 % Concent Red Cell Distribution Width 17.5 % Platelet Count 148 TH/MM3 Mean Platelet Volume 8.2 FL Sodium Level 147 MEQ/L Potassium Level 3.4 MEQ/L Chloride Level 114 MEQ/L Carbon Dioxide Level 24.3 MEQ/L Anion Gap 9 MEQ/L Blood Urea Nitrogen 87 MG/DL Creatinine 3.69 MG/DL Estimat Glomerular Filtration 17 ML/MIN Rate Random Glucose 121 MG/DL Calcium Level 7.5 MG/DL Total Creatine Kinase 369 U/L Creatine Kinase MB 3.2 NG/ML Creatine Kinase MB % 0.9 % Date/Time Procedure Status Source Growth 07/28/16 11:05 Stool Occult Blood (CADEN) - Final Complete Stool Stool HEMOCCULT POSITIVE Physical Examination HEENT: Normocephalic; atraumatic; no jaundice. CHEST: Resp shallow/even. Diminished CARDIAC: RRR ABDOMEN: Soft, nondistended, nontender; no hepatosplenomegaly; bowel sounds are present in all four quadrants. EXTREMITIES: Right BKA SKIN: Normal; no rash; no jaundice. 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 (Shayna Cortez) Assessment and Plan Plan ASSESSMENT: - Iron Deficiency Anemia with Hemoccult positive stool. Pt hospitalized with AMS, acute on chronic kidney injury, multiple electrolytes, and his chronic medical problems. He is not having any obvious active bleeding. He is anemic, but this has remained stable and is normocytic. It is unclear if he has any hx of GI bleeding or if he has ever had an EGD/Colonoscopy in the past. At this time, his next of kin Sister Tigist Amado at [phone] is unable to be reached. I attempted to call, but the number states that she is not accepting calls at this time and there is no way to leave a message. He is currently on Eliquis. Given the fact that he is not having any significatn active bleeding, we will hold off on endoscopic procedures, continue iron supplements, cont. ppi. We will plan for EGD +/- Colonoscopy once consents are obtained or consider as emergent procedure/medically necessary, should there be any significant active bleeding. - AMS. Per primary - Acute on chronic renal failure with multiple electrolyte abnormalities. Per renal - CHF, CAD, HTN, DM, Hx CVA per primary. PLAN: - ASCENCION - Cont. PPI - Cont. Iron Supplements - Monitor HH - EGD +/- Colonoscopy once consents are obtained or consider as emergent procedure/medically necessary, should there be any significant active bleeding. - Pt seen and examined by Dr. Gómez and myself and this note is written on his behalf (Shayna Cortez) Physician Comments Patient seen and examined Agree with above Continue with current supportive care Monitor labs Endoscopy once we obtain consent or if there is any active bleeding (Sherman Gómez MD) Shayna Cortez Jul 29, 2016 10:08 Sherman Gómez MD Jul 29, 2016 19:22
[2016-07-29 12:00] VITALS: BP 118/68; PULSE 78; RESP 16; TEMP 96.7; O2SAT 98
--- NOTE | 2016-07-29 15:52 | HHI.NPPN ---
Subjective History of Present Illness The patient is a 61 yo [place] male who was brought to this facility via EMS 07/25 after a DCF visit resulted in finding him on the floor covered in his own waste. He was in the ED on 07/22 for a fall and was discharged that day. Suspected that he may have fallen again and been down on the floor since 07/22. He is non-verbal and there is no family present in room. History obtained from previous medical records. Uncertain if any medications have been taken at home. Also unclear to me as what his normal mentation is. According to previous labs, has underlying CKD with baseline SCr of 1.5-1.9. Noted EF of 35% as per echo in 2016. CAD s/p 4 vessel CABG, DM, HTN, PAD s/p r BKA Admitting SCr 7.00 that improved to 6.16 at time of consult. He has been bolused multiple times with NS and was on maintenance fluid of NS until this AM. Switched to 1/2 NS given his hyponatremia. His working dx at this time is rhabdo Interval History Pt awake and does answer some questions today---just yes & no Review of Systems General General Remarks Not obtainable Objective Data Data 07/28/16 07/29/16 19:00 07:00 Intake Total 560 ml 2641 ml Output Total 550 ml 1350 ml Balance 10 ml 1291 ml Intake Oral 480 ml 360 ml IV Total 80 ml 2281 ml Output Urine Total 550 ml 1350 ml # Bowel Movements 2 1 Vital Signs Date Time Temp Pulse Resp B/P Pulse Ox O2 Delivery O2 Flow Rate FiO2 07/29/16 08:00 95.5 76 18 105/62 97 07/28/16 23:41 97.6 81 21 129/77 96 07/28/16 20:00 97.3 84 19 120/67 94 07/28/16 16:00 98.1 82 20 112/59 98 -: 07/29/16 0425 07/29/16 0425 Medication Review Current Medications Medications (Trade) Dose Ordered Sig/Estuardo Route Start Time Stop Time Status Last Admin (Eliquis) 2.5 mg BID PO 07/25/16 21:00 07/29/16 08:54 (Lipitor) 80 mg HS PO 07/25/16 21:00 07/28/16 21:58 (Coreg) 25 mg BID PO 07/25/16 21:00 07/28/16 21:58 (Ferrous Sulfate) 325 mg DAILY@08 PO 07/26/16 08:00 07/29/16 08:53 (Imdur) 60 mg HS PO 07/25/16 21:00 07/28/16 21:58 (NS Flush) 2 ml UNSCH PRN IV FLUSH 07/25/16 18:30 (NS Flush) 2 ml BID IV FLUSH 07/25/16 21:00 07/28/16 21:00 (Narcan Inj) 0.4 mg UNSCH PRN IV 07/25/16 18:30 (Pill Splitter) 1 ea UNSCH PRN OTHER 07/25/16 18:45 (Norvasc) 10 mg DAILY PO 07/28/16 09:00 Cholecalciferol 2000 units 2,000 units DAILY PO 07/28/16 09:00 07/29/16 08:54 (Sodium Bicarbonate 8.4% Inj/D5W 1000 ml Inj) 1,075 ml @ 100 mls/hr [id number] IV 07/27/16 19:00 07/29/16 15:09 Physical Exam General Appearance: Comfortable Neck Neck Exam: Neck Supple, Trachea Midline Pulmonary Resp Exam: Clear Bilaterally, Breath Sounds Equal Cardiology CV Exam: Regular, Normal Sinus Rhythm Gastrointestinal/Abdomen GI Exam: Soft, Non-Tender Integumentary Skin Exam: Clear, Warm Extremeties Extremities Exam: No Edema Assessment/Plan Problem List: (1) Otejf-bc-ubecoir kidney injury Plan: Baseline SCr 1.5-1.9. Acute renal failure likely related to volume depletion KCl as ordered Renal functions slowly improving. SPEP pending Monoclonal protein detected on serum RUDY K/L ratio elevated. Check urine immunofixation and await SPEP results. If appears he has a paraproteinemia, will request hematology consultation. Medications should be adjusted for the patient's renal decline. Avoid nephrotoxic medications including iodinated contrast dyes and NSAIDs. Avoid gadolinium when eGFR <30. (2) Chronic systolic (congestive) heart failure Plan: With reported EF of 35%. Clinically dehydrated at the present. Continue IVF and monitor for signs of fluid retention. (3) HTN (hypertension) Plan: BP meds held given hypotension (4) CVA (cerebral vascular accident) Plan: Hx of. (5) Diabetes mellitus Plan: Mgmt as per primary team (6) Anemia Plan: FOBT pos. GI consult appreciated. (7) Rhabdomyolysis Plan: CPK improving (8) Acidosis Plan: Likely related to ARF. Bicarb added to IVF (9) Hypernatremia Plan: Improving. Continue D5 (10) Vitamin D deficiency Plan: Continue cholecalciferol Problem Qualifiers (1) HTN (hypertension): Qualified Code: I10 - Essential hypertension (2) Diabetes mellitus: Qualified Code: E11.51 - Type 2 diabetes mellitus with diabetic peripheral angiopathy without gangrene, without long-term current use of insulin (3) Anemia: Qualified Code: D50.8 - Other iron deficiency anemia [facility] Jul 29, 2016 15:52
[2016-07-29 16:00] VITALS: BP 130/66; PULSE 78; RESP 18; TEMP 97.1; O2SAT 95
[2016-07-29] MEDS ORDERED: POTASSIUM CHLORIDE 10 MEQ CONTROLLED RELEASE TAB PO ONE (16:00)
[2016-07-29 20:00] VITALS: BP 150/77; PULSE 80; RESP 20; TEMP 98.4; O2SAT 95
[2016-07-29] MEDS: ISOSORBIDE MONONITRATE 60 MG TAB PO SCH (21:04)
[2016-07-29] MEDS: ATORVASTATIN 80 MG TAB PO SCH (21:04)
[2016-07-30] VITALS: BP 126/75; PULSE 77; RESP 20; TEMP 96.8; O2SAT 97
[2016-07-30] MEDS: SODIUM BICARBONATE 8.4% INJ 75 MEQ in DEXTROSE 5% IN WATE 1000ML INJ 1,000 ML IV SCH ×4 (01:56→13:12)
[2016-07-30 05:44] LABS: HEMATOCRIT 23.1 % (39.0-51.0); MEAN CELL VOLUME 81.9 FL (80.0-100.0); MEAN CORPUSCULAR HEMOGLOBIN 27.8 PG (27.0-34.0); MEAN CORPUSCULAR HGB CONC 33.9 % (32.0-36.0); PLATELET COUNT 124 TH/MM3 (150-450); RED BLOOD COUNT 2.82 MIL/MM3 (4.50-5.90); RED CELL DISTRIBUTION WIDTH 17.4 % (11.6-17.2); REVIEW FLAG FINAL; WHITE BLOOD COUNT 9.1 TH/MM3 (4.0-11.0)
[2016-07-30 06:30] LABS: BICARBONATE 26.9 MEQ/L (21.0-32.0); POTASSIUM 3.5 MEQ/L (3.5-5.1)
[2016-07-30 08:00] VITALS: BP 110/71; PULSE 72; RESP 18; TEMP 96.7; O2SAT 97
[2016-07-30] MEDS: CHOLECALCIFEROL (VIT D3) 1000 UNIT TAB PO SCH (08:04)
[2016-07-30] MEDS: CARVEDILOL 12.5 MG TAB PO SCH ×2 (08:04→21:52)
[2016-07-30] MEDS: APIXABAN 2.5 MG TABLET PO SCH ×2 (08:04→21:51)
[2016-07-30] MEDS: FERROUS SULFATE 325 MG (65 MG ELEMENTAL IRON) TAB PO SCH (08:04)
[2016-07-30] MEDS: SODIUM CHLORIDE 0.9% FLUSH 10 ML FLUSH IV FLUSH SCH ×2 (08:10→21:52)
--- NOTE | 2016-07-30 11:04 | HHI.FPPN ---
Subjective Remarks Pt seen and examined this morning. Responds to yes/no questions. Has no complaints. Denies any pain. (Rich Vaughn MD R1) Objective Vitals Vital Signs Date Time Temp Pulse Resp B/P Pulse Ox O2 Delivery O2 Flow Rate FiO2 07/30/16 08:00 96.7 72 18 110/71 97 07/30/16 00:00 96.8 77 20 126/75 97 07/29/16 20:00 98.4 80 20 150/77 95 07/29/16 16:00 97.1 78 18 130/66 95 07/29/16 12:00 96.7 78 16 118/68 98 I/O 07/29/16 07/29/16 07/29/16 07/30/16 07/30/16 07/30/16 07:00 15:00 23:00 07:00 15:00 23:00 Intake Total 955 ml 50 ml 120 ml 2061 ml Output Total 750 ml 650 ml 300 ml 350 ml Balance 205 ml -600 ml -180 ml 1711 ml Intake Oral 120 ml 50 ml 120 ml 60 ml IV Total 835 ml 2001 ml Output Urine Total 750 ml 650 ml 300 ml 350 ml # Voids 1 # Bowel Movements 1 0 0 1 (Rich Vaughn MD R1) Result Diagram: 07/30/1644407/30/16444 Objective Remarks GEN: Well-developed, well-nourished patient. No acute distress. Laying in bed, watching TV CV: Regular rate and rhythm without obvious murmurs LUNGS: Clear to auscultation bilaterally. No wheezes, rales, rhonchi. EXT: No edema. NEURO/PSYCH: Awake, alert. (Rich Vaughn MD R1) A/P Assessment and Plan 61 yo M, hx of prolonged hospital stay from September 2015 - July 18, 2016, having returned to the hospital on July 22 for fall. Admitted for AMS, rhabdomyolysis with CK 3000, hypernatremia and anemia. Discharge Planning 2-3 days pending improvement in renal function and hypernatremia wdw Dr. Cash (Rich Vaughn MD R1) Attending Attestation Patient seen and examined. Case reviewed and discussed with the resident team. Agree with plan of care as discussed with me and documented in the resident note. (Mackenzie Cash MD) Problem List: (1) Altered mental status Status: Resolved Plan: Found to hypernatremic on admission as well as acute on chronic PAT. Electrolyte abnormality and azotemia likely contributed to presentation. Baseline mental status is unclear but pt does appear to have had multiple ischemic strokes in the past including lacunar infarcts 10/20/15. Leukocytosis resolved, likely due to hemoconcentration Negative UA and tox screen. -Hypernatremia improving from a high of 160 -fluids, see rate below -ammonia, lactic acid WNL -Consider seroquel it patient becomes agitated. Currently not needed -Speech therapy following, appreciate recs Imaging: * CXR: unremarkable * Head CT negative for acute process. Consistent with chronic change. (2) Hypernatremia Status: Resolved Plan: See plan above (3) Anemia Status: Chronic Plan: Hx of anemia. Baseline Hg 9-10. Downtrending but now stable Ferritin normal and TIBC is low. Etiology likely not due iron deficiency; Inappropriately Normal retic count -Continue Fe supplementation, Eliquis for now -Daily H/H -FOBT positive GI consulted: appreciate recommendations -Continue PPI, iron -EGD +/- colonoscopy once consents are obtained/or if active bleeding (4) Sltxr-xs-ikcdbxc kidney injury Status: Acute Plan: Baseline GFR 50s, most recently 48 on 07/05/16. There is prerenal component with patient having dehydration. Associated rhabdomyolysis likely contributing. No hyperkalemia. -Avoid nephrotoxic meds -Closely monitor I&O -Renal US: unremarkable Consult nephrology: appreciate recommendations * Fluids of D5+bicarb * Started cholecalciferol * may benefit from Venofer (5) Chronic systolic (congestive) heart failure Status: Chronic Plan: Patient with hx of CHF, EF 35% from September 2015. Not currently appearing to be fluid overloaded. -Closely monitor I&O (6) Coronary artery disease Status: Chronic Plan: Continue Coreg 12.5 mg po bid Continue Eliquis Continue Atorvastatin 80 mg po hs Continue Isosorbide Mononitrate 60 mg po hs (7) HTN (hypertension) Status: Chronic Plan: Continue Amlodipine 10 mg po daily -Hold for SBP <110 (8) Diabetes mellitus Status: Chronic Plan: A1C 6.9 on 11/25/15, not currently on DM meds Normal serum glucose levels -Closely monitor BMP, consider adding sliding scale once patient's PO intake improves (9) Nutrition, metabolism, and development symptoms Status: Acute Plan: Fluids: D5 @ 100 + bicarb mls/hr Electrolytes: hypernatremia, see plan above Nikunj continued (Rich Vaughn MD R1) Problem Qualifiers (1) Anemia: Qualified Code: D50.8 - Other iron deficiency anemia (2) Coronary artery disease: Qualified Code: I25.10 - Coronary artery disease involving alutiiq heart without angina pectoris, unspecified vessel or lesion type (3) HTN (hypertension): Qualified Code: I10 - Essential hypertension (4) Diabetes mellitus: Qualified Code: E11.51 - Type 2 diabetes mellitus with diabetic peripheral angiopathy without gangrene, without long-term current use of insulin Rich Vaughn MD R1 Jul 30, 2016 11:04 Mackenzie Cash MD Jul 31, 2016 14:35
[2016-07-30 16:00] VITALS: BP 118/75; PULSE 85; RESP 16; TEMP 98.8; O2SAT 99
--- NOTE | 2016-07-30 16:04 | HHI.GIFU ---
Subjective Remarks Resting in bed. No distress. No active bleeding. No consents. (DiegoShayna German ROBER) Objective Vitals I&O Vital Signs Date Time Temp Pulse Resp B/P Pulse Ox O2 Delivery O2 Flow Rate FiO2 07/30/16 08:00 96.7 72 18 110/71 97 07/30/16 00:00 96.8 77 20 126/75 97 07/29/16 20:00 98.4 80 20 150/77 95 I/O 07/29/16 07/29/16 07/29/16 07/30/16 07/30/16 07/30/16 07:00 15:00 23:00 07:00 15:00 23:00 Intake Total 955 ml 50 ml 120 ml 2061 ml 550 ml Output Total 750 ml 650 ml 300 ml 350 ml Balance 205 ml -600 ml -180 ml 1711 ml 550 ml Intake Oral 120 ml 50 ml 120 ml 60 ml IV Total 835 ml 2001 ml 550 ml Output Urine Total 750 ml 650 ml 300 ml 350 ml # Voids 1 # Bowel Movements 1 0 0 1 Laboratory Laboratory Tests Test 07/30/16 04:45 White Blood Count 9.1 Red Blood Count 2.82 Hemoglobin 7.8 Hematocrit 23.1 Mean Corpuscular Volume 81.9 Mean Corpuscular Hemoglobin 27.8 Mean Corpuscular Hemoglobin 33.9 Concent Red Cell Distribution Width 17.4 Platelet Count 124 Mean Platelet Volume 8.7 Sodium Level 147 Potassium Level 3.5 Chloride Level 110 Carbon Dioxide Level 26.9 Anion Gap 10 Blood Urea Nitrogen 67 Creatinine 3.01 Estimat Glomerular Filtration 21 Rate Random Glucose 99 Calcium Level 7.6 Date/Time Procedure Status Source Growth 07/28/16 11:05 Stool Occult Blood (CADEN) - Final Complete Stool Stool HEMOCCULT POSITIVE Imaging Last Impressions Head CT 07/25/16 1644 Signed Impressions: Service Date/Time: Monday, July 25, 2016 17:19 - CONCLUSION: 1. Lacunar infarcts bilaterally, worse on the left. 2. Negative for an acute process. Didier Clay MD FACR Renal Ultrasound 07/25/16 0000 Signed Impressions: Service Date/Time: Monday, July 25, 2016 20:55 - CONCLUSION: 1. Tiny nonobstructing calcified left renal calculi. 2. No hydronephrosis or solid renal mass. Efren Cleaning MD Chest X-Ray 07/25/16 0000 Signed Impressions: Service Date/Time: Monday, July 25, 2016 19:36 - CONCLUSION: No acute disease. Efren Cleaning MD Physical Exam HEENT: Normocephalic; atraumatic; no jaundice. CHEST: Resp shallow/even. Diminished CARDIAC: RRR ABDOMEN: Soft, nondistended, nontender; no hepatosplenomegaly; bowel sounds are present in all four quadrants. EXTREMITIES: Right BKA SKIN: Normal; no rash; no jaundice. 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 (Shayna Cortez) Assessment and Plan Plan ASSESSMENT: - Iron Deficiency Anemia with Hemoccult positive stool. Pt hospitalized with AMS, acute on chronic kidney injury, multiple electrolytes, and his chronic medical problems. He is not having any obvious active bleeding. He is anemic, but this has remained stable and is normocytic. It is unclear if he has any hx of GI bleeding or if he has ever had an EGD/Colonoscopy in the past. At this time, his next of kin Sister Tigist Amado at [phone] is unable to be reached. I attempted to call, but the number states that she is not accepting calls at this time and there is no way to leave a message. He is currently on Eliquis. Given the fact that he is not having any significant active bleeding, we will hold off on endoscopic procedures, continue iron supplements, cont. ppi. We will plan for EGD +/- Colonoscopy once consents are obtained or consider as emergent procedure/medically necessary, should there be any significant active bleeding. HH stable 7.8/23.1. No consents - AMS. Per primary - Acute on chronic renal failure with multiple electrolyte abnormalities. Per renal - CHF, CAD, HTN, DM, Hx CVA per primary. PLAN: - ASCENCION - Cont. PPI - Cont. Iron Supplements - Monitor HH - EGD +/- Colonoscopy once consents are obtained or consider as emergent procedure/medically necessary, should there be any significant active bleeding. - GI will sign off, please reconsult once consents obtained or if active bleeding - Pt seen and examined by Dr. Borges and myself and this note is written on his behalf (Shayna Cortez) Physician Comments Seen and examined with ROBER, talked to the primary care team. Court system involved in trying to appoint guardian for pt. No active bleeding. Please reconsult gi once consents obtained. Will sign off. Thank you (Marshall Borges MD) Shayna Cortez Jul 30, 2016 16:04 Marshall Borges MD Jul 31, 2016 13:51
--- NOTE | 2016-07-30 16:47 | HHI.NPPN ---
Subjective History of Present Illness The patient is a 61 yo [place] male who was brought to this facility via EMS 07/25 after a DCF visit resulted in finding him on the floor covered in his own waste. He was in the ED on 07/22 for a fall and was discharged that day. Suspected that he may have fallen again and been down on the floor since 07/22. He is non-verbal and there is no family present in room. History obtained from previous medical records. Uncertain if any medications have been taken at home. Also unclear to me as what his normal mentation is. According to previous labs, has underlying CKD with baseline SCr of 1.5-1.9. Noted EF of 35% as per echo in 2016. CAD s/p 4 vessel CABG, DM, HTN, PAD s/p r BKA Admitting SCr 7.00 that improved to 6.16 at time of consult. He has been bolused multiple times with NS and was on maintenance fluid of NS until this AM. Switched to 1/2 NS given his hyponatremia. His working dx at this time is rhabdo Interval History Patient is awake but nonverbal and not responding to simple commands or questions. Review of Systems General General Remarks Not obtainable Objective Data Data 07/29/16 07/30/16 19:00 07:00 Intake Total 50 ml 2181 ml Output Total 650 ml 650 ml Balance -600 ml 1531 ml Intake Oral 50 ml 180 ml IV Total 2001 ml Output Urine Total 650 ml 650 ml # Voids 1 # Bowel Movements 0 1 Vital Signs Date Time Temp Pulse Resp B/P Pulse Ox O2 Delivery O2 Flow Rate FiO2 07/30/16 08:00 96.7 72 18 110/71 97 07/30/16 00:00 96.8 77 20 126/75 97 07/29/16 20:00 98.4 80 20 150/77 95 -: 07/30/16 0445 07/30/16 0445 Medication Review Inpatient Medications Amlodipine Besylate (Norvasc) 10 mg DAILY PO Last administered on 07/30/16 08: 04; Start 07/28/16 at 09:00 Apixaban (Eliquis) 2.5 mg BID PO Last administered on 07/30/16 08:04; Start at 21:00 Atorvastatin Calcium (Lipitor) 80 mg HS PO Last administered on 07/29/16 21:04 ; Start 07/25/16 at 21:00 Carvedilol (Coreg) 25 mg BID PO Last administered on 07/30/16 08:04; Start at 21:00 Cholecalciferol 2000 units 2,000 units DAILY PO Last administered on 07/30/16 08:04; Start 07/28/16 at 09:00 Ferrous Sulfate (Ferrous Sulfate) 325 mg DAILY@08 PO Last administered on 08:04; Start 07/26/16 at 08:00 Isosorbide Mononitrate (Imdur) 60 mg HS PO Last administered on 07/29/16 21:04 ; Start 07/25/16 at 21:00 Miscellaneous 1 ea 1 ea UNSCH PRN OTHER SEE LABEL COMMENTS; Start 07/25/16 at 18:45 Naloxone HCl (Narcan Inj) 0.4 mg UNSCH PRN IV SEE LABEL COMMENTS; Start at 18:30 Potassium Chloride (KCl) 30 meq ONCE ONCE PO Last administered on 07/29/16 16 :00; Start 07/29/16 at 16:00; Stop 07/29/16 at 16:01; Status DC Quetiapine Fumarate (SEROquel) 100 mg DAILY PO ; Start 07/26/16 at 09:00; Stop 07/26/16 at 09:00; Status DC Quetiapine Fumarate 150 mg 150 mg HS PO ; Start 07/25/16 at 21:00; Stop at 21:00; Status DC Sodium Bicarbonate/ Dextrose (Sodium Bicarbonate 8.4% Inj/D5W 1000 ml Inj) 1, 075 ml @ 100 mls/hr [id number] IV Last administered on 07/30/16 13:12; Start at 19:00 Sodium Bicarbonate/ Sodium Chloride (Sodium Bicarbonate 8.4% Inj/1/2 NS 1000 ml Inj) 1,075 ml @ 125 mls/hr [id number] IV Last administered on 07/27/16 05:35; Start 07/27/16 at 07:00; Stop 07/27/16 at 18:24; Status DC Sodium Chloride 500 ml @ 500 mls/hr BOLUS ONCE IV Last administered on 07:00; Start 3/28/17 at 07:00; Stop 07/26/16 at 07:59; Status DC Sodium Chloride (NS 1000 ml Inj) 1,000 ml @ 125 mls/hr Q8H IV Last administered on 07/26/16 02:30; Start 07/25/16 at 18:30; Stop 07/26/16 at 06:55 ; Status DC Sodium Chloride (NS Flush) 2 ml BID IV FLUSH Last administered on 07/29/16 21: 03; Start 07/25/16 at 21:00 Physical Exam General Appearance: Comfortable, Pale Neck Neck Exam: Neck Supple, Trachea Midline Pulmonary Resp Exam: Clear Bilaterally, Breath Sounds Equal Cardiology CV Exam: Regular, Normal Sinus Rhythm Gastrointestinal/Abdomen GI Exam: Soft, Non-Tender Integumentary Skin Exam: Clear, Warm Extremeties Extremities Exam: No Edema Neurologic Neuro Exam: Awake, Unresponsive Assessment/Plan Problem List: (1) Trquj-sw-soztohx kidney injury Plan: Baseline SCr 1.5-1.9. Patient's acute renal insufficiency is improving progressively. Continue intravenous hypotonic fluid. Will see patient when necessary. SPEP pending Monoclonal protein detected on serum RUDY K/L ratio elevated. Check urine immunofixation which was ordered but at this point in time I would recommend hematology consultation in view of monoclonal gammopathy and elevated kappa/lambda light chain ratio. We'll defer to primary care physician in regard to this.. Medications should be adjusted for the patient's renal decline. Avoid nephrotoxic medications including iodinated contrast dyes and NSAIDs. Avoid gadolinium when eGFR <30. (2) Chronic systolic (congestive) heart failure Plan: With reported EF of 35%. Clinically dehydrated at the present. Continue IVF and monitor for signs of fluid retention. (3) HTN (hypertension) Plan: BP meds held given hypotension (4) CVA (cerebral vascular accident) Plan: Hx of. (5) Diabetes mellitus Plan: Mgmt as per primary team (6) Anemia Plan: FOBT pos. GI consult appreciated. (7) Rhabdomyolysis Plan: CPK improving (8) Acidosis Plan: Likely related to ARF. Bicarb added to IVF (9) Hypernatremia Plan: Improving. Continue D5 (10) Vitamin D deficiency Plan: Continue cholecalciferol Problem Qualifiers (1) HTN (hypertension): Qualified Code: I10 - Essential hypertension (2) Diabetes mellitus: Qualified Code: E11.51 - Type 2 diabetes mellitus with diabetic peripheral angiopathy without gangrene, without long-term current use of insulin (3) Anemia: Qualified Code: D50.8 - Other iron deficiency anemia Jessica Rick MD Jul 30, 2016 16:47
[2016-07-30 20:00] VITALS: BP 123/62; PULSE 84; RESP 22; TEMP 98.1; O2SAT 95
[2016-07-30] MEDS: ISOSORBIDE MONONITRATE 60 MG TAB PO SCH (21:51)
[2016-07-30] MEDS: ATORVASTATIN 80 MG TAB PO SCH (21:52)
[2016-07-31] VITALS: BP 126/89; PULSE 88; RESP 20; TEMP 99.6; O2SAT 96
[2016-07-31] MEDS: SODIUM BICARBONATE 8.4% INJ 75 MEQ in DEXTROSE 5% IN WATE 1000ML INJ 1,000 ML IV SCH ×4 (00:57→07:24)
[2016-07-31 05:21] LABS: HEMATOCRIT 24.6 % (39.0-51.0); MEAN CELL VOLUME 82.7 FL (80.0-100.0); MEAN CORPUSCULAR HEMOGLOBIN 27.3 PG (27.0-34.0); PLATELET COUNT 132 TH/MM3 (150-450); RED BLOOD COUNT 2.98 MIL/MM3 (4.50-5.90); RED CELL DISTRIBUTION WIDTH 17.7 % (11.6-17.2); REVIEW FLAG FINAL
[2016-07-31 06:21] LABS: BICARBONATE 33.2 MEQ/L (21.0-32.0); POTASSIUM 3.3 MEQ/L (3.5-5.1)
[2016-07-31] MEDS: CARVEDILOL 12.5 MG TAB PO SCH ×2 (07:23→22:50)
[2016-07-31] MEDS: FERROUS SULFATE 325 MG (65 MG ELEMENTAL IRON) TAB PO SCH (07:23)
[2016-07-31] MEDS: CHOLECALCIFEROL (VIT D3) 1000 UNIT TAB PO SCH (07:23)
[2016-07-31] MEDS: APIXABAN 2.5 MG TABLET PO SCH ×2 (07:24→22:50)
[2016-07-31] MEDS: SODIUM CHLORIDE 0.9% FLUSH 10 ML FLUSH IV FLUSH SCH ×2 (07:29→22:49)
[2016-07-31 08:00] VITALS: BP 115/76; PULSE 82; RESP 16; TEMP 97.2; O2SAT 98
--- NOTE | 2016-07-31 10:48 | HHI.FPPN ---
Addendum to progress note ADDENDUM Reason for addendum: Additonal documentation Additional information Transfer of Care/Off-Service Note Mr. Amado is a 61-year-old male with a past medical history of coronary artery disease, HTN, HLD, DM, CHF, PAD who is admitted for AMS. On admission, patient was found at home by DCF lying in his own feces. Of note, patient was recently discharged from a 9 month hospital stay a week before admission. Patient was found to have hypernatremia and acute on chronic kidney injury. Patient was admitted and started on fluids. Initial head imaging was negative for acute process. No signs of infectious process. Nephrology was consulted for the kidney injury. Patient was continued on his home meds of Eliquis, Lipitor, isosorbide mononitrate, iron, amlodipine. Nephrology recommended continuing fluids. Renal ultrasound showed no obstructive process. Kidney serologies were evaluated. Labs were also significant for monoclonal gammopathy and elevated/lambda light chain ratio, hematology consult placed in regard to this. Kidney function has greatly improved since admission. Sodium has also normalized. Unsure of patient's mental status baseline, but patient does respond to questions and appears to be listening, improved from admission. Patient was found to have rhabdomyolysis with elevated CPK on admission, which has improved with fluids and admission. Patient was also found to have a down trending H&H. Patient came in on Eliquis and iron supplements. Hemoccult was positive. GI was consulted, who recommended EGD once consents are obtained or if emergent procedures needed for active bleeding. Recommended continue PPI and supplements. At this time, no consents are able to be obtained so GI signed off. Once guardianship is obtained and consents are obtained, re-consult GI for procedure. Due to issues at home with last discharge, case management is currently working with [facility] to assign guardianship and to apply for Medicaid for placement upon discharge. Rich Vaughn MD R1 Jul 31, 2016 10:48
--- NOTE | 2016-07-31 11:17 | HHI.FPPN ---
Subjective Remarks No acute events overnight. Vital signs unremarkable. This morning patient is sleeping but wakes up to verbal stimuli. Denies any pain. Does not respond to further questioning. (Cortney Harrington MD R2) Objective Vitals Vital Signs Date Time Temp Pulse Resp B/P Pulse Ox O2 Delivery O2 Flow Rate FiO2 07/31/16 08:00 97.2 82 16 115/76 98 07/31/16 00:00 99.6 88 20 126/89 96 07/30/16 20:00 98.1 84 22 123/62 95 07/30/16 16:00 98.8 85 16 118/75 99 I/O 07/30/16 07/30/16 07/30/16 07/31/16 07/31/16 07/31/16 07:00 15:00 23:00 07:00 15:00 23:00 Intake Total 2061 ml 910 ml 1140 ml 693 ml Output Total 350 ml 800 ml 250 ml 550 ml Balance 1711 ml 110 ml 890 ml 143 ml Intake Oral 60 ml 360 ml 240 ml IV Total 2001 ml 550 ml 900 ml 693 ml Output Urine Total 350 ml 800 ml 250 ml 550 ml # Voids 1 # Bowel Movements 1 1 0 1 (Cortney Harrington MD R2) Result Diagram: 07/31/1643107/31/16431 Objective Remarks GEN: Well-developed, well-nourished patient. No acute distress. Laying in bed sleeping. CV: Regular rate and rhythm without obvious murmurs LUNGS: Clear to anterior auscultation bilaterally. No wheezes, rales, rhonchi. ABD: soft, nondistended, nontender NEURO/PSYCH: Arousable (Cortney Harrington MD R2) A/P Assessment and Plan 61 yo M, hx of prolonged hospital stay from September 2015 - July 18, 2016, having returned to the hospital on July 22 for fall. Admitted for AMS, rhabdomyolysis with CK 3000, hypernatremia and anemia. Discharge Planning 2-3 days pending eval by hematology wdw Dr. Shreya Vaughn (Cortney Harrington MD R2) Attending Attestation Patient seen and examined. Case reviewed and discussed with the resident team. Agree with plan of care as discussed with me and documented in the resident note. (Mackenzie Cash MD) Problem List: (1) Vsdgc-sx-kftqofz kidney injury Status: Acute Plan: Baseline GFR 50s. Associated rhabdomyolysis likely contributing which has now resolved. No hyperkalemia. -Avoid nephrotoxic meds -Closely monitor I&O -Renal US: unremarkable Consult nephrology: appreciate recommendations * continue fluids * Monoclonal protein detected on serum RUDY * [place]/lambda ratio elevated. * Recommend Heme consult * Started cholecalciferol Heme consulted: appreciate recommendations. (2) Altered mental status Status: Resolved Plan: Found to hypernatremic on admission as well as acute on chronic PAT. Electrolyte abnormality and azotemia likely contributed to presentation. Baseline mental status is unclear but pt does appear to have had multiple ischemic strokes in the past including lacunar infarcts 10/20/15. Pt now appears to be at baseline. -Hypernatremia resolved from a high of 160 -Initial Leukocytosis resolved but WBC increased on 07/31 * no clinical signs of infection, will closely monitor -Negative UA and tox screen. -ammonia, lactic acid WNL -Consider Seroquel it patient becomes agitated. Currently not needed -Speech therapy following, appreciate recs Imaging: * CXR: unremarkable * Head CT negative for acute process. Consistent with chronic change. (3) Hypernatremia Status: Resolved Plan: See plan above (4) Anemia Status: Chronic Plan: Hx of anemia. Baseline Hg 9-10. Downtrending but now stable -Ferritin normal and TIBC is low. Etiology likely not due iron deficiency; Inappropriately Normal retic count -Continue PO Fe supplementation -FOBT positive GI consulted: appreciate recommendations -Continue PPI, iron -EGD +/- colonoscopy once consents are obtained/or if active bleeding -sister may no longer have guardianship as DCF is involved with case due to poor home situation. Once guardianship has been determined, will notify GI so that consents can be signed and procedure can be performed. (5) Chronic systolic (congestive) heart failure Status: Chronic Plan: Patient with hx of CHF, EF 35% from September 2015. Not currently appearing to be fluid overloaded. -Closely monitor I&O (6) Coronary artery disease Status: Chronic Plan: Continue Coreg 12.5 mg po bid Continue Eliquis Continue Atorvastatin 80 mg po hs Continue Isosorbide Mononitrate 60 mg po hs (7) HTN (hypertension) Status: Chronic Plan: Continue Amlodipine 10 mg po daily -Hold for SBP <110 (8) Diabetes mellitus Status: Chronic Plan: A1C 6.9 on 11/25/15, not currently on DM meds Normal serum glucose levels -Closely monitor BMP, consider adding sliding scale once patient's PO intake improves (9) Nutrition, metabolism, and development symptoms Status: Acute Plan: Fluids: D5 1/2NS + bicarb at 75 Electrolytes: mild hypokalemia, repleted DVT PPX: Eliquis continued GI PPX: protonix (Cortney Harrington MD R2) Problem Qualifiers (1) Anemia: Qualified Code: D50.8 - Other iron deficiency anemia (2) Coronary artery disease: Qualified Code: I25.10 - Coronary artery disease involving [place] heart without angina pectoris, unspecified vessel or lesion type (3) HTN (hypertension): Qualified Code: I10 - Essential hypertension (4) Diabetes mellitus: Qualified Code: E11.51 - Type 2 diabetes mellitus with diabetic peripheral angiopathy without gangrene, without long-term current use of insulin Cortney Harrington MD R2 Jul 31, 2016 11:17 Mackenzie Cash MD Jul 31, 2016 15:11
[2016-07-31] MEDS: PANTOPRAZOLE SOD 40 MG DELAYED RELEASE TAB PO SCH (11:59)
[2016-07-31 12:00] VITALS: BP 106/76; PULSE 80; RESP 18; TEMP 98.9; O2SAT 98
[2016-07-31] MEDS ORDERED: POTASSIUM CHLORIDE 10 MEQ CAP PO ONE (12:00)
[2016-07-31 16:00] VITALS: BP 110/74; PULSE 74; RESP 16; TEMP 98.7; O2SAT 98
--- NOTE | 2016-07-31 19:31 | RADRPT ---
EXAM DATE/TIME: 07/31/2016 16:09 [place] COMPARISON: None INDICATIONS : Neoplasm. MEDICAL HISTORY : Cardiovascular disease. Congestive heart failure. SURGICAL HISTORY : CABG. ENCOUNTER: Initial ACUITY: 2 weeks PAIN SCORE: Non-responsive. LOCATION: Bilateral middle FINDINGS: Bone survey was performed of the axial and appendicular skeleton. The lower extremities are demonstrate no significant abnormality. The spinal axis and pelvis are unremarkable except for degenerative disc disease and osteoarthritis a t the hips. The skull demonstrates normal mineralization and the paranasal sinuses are clear. The visualized heart, lungs and abdominal structures are unremarkable. Bony mineralization is normal . CONCLUSION: Unremarkable bone survey. Incidental note made of median sternotomy. Multiple gallstones. Richard Gerber MD on July 31, 2016 at 19:25 Board Certified Radiologist. This report was verified electronically.
[2016-07-31 20:00] VITALS: BP 126/76; PULSE 80; RESP 22; TEMP 97.4; O2SAT 98
[2016-07-31] MEDS: ISOSORBIDE MONONITRATE 60 MG TAB PO SCH (22:50)
[2016-07-31] MEDS: ATORVASTATIN 80 MG TAB PO SCH (22:50)
[2016-08-01] VITALS: BP 108/67; PULSE 77; RESP 22; TEMP 98.8; O2SAT 97
[2016-08-01] MEDS: SODIUM BICARBONATE 8.4% INJ 75 MEQ in DEXTROSE 5% IN WATE 1000ML INJ 1,000 ML IV SCH ×4 (04:05→16:39)
[2016-08-01 05:36] LABS: RETIC % 1.8 % (0.4-3.0); REVIEW FLAG FINAL
[2016-08-01 05:39] LABS: AUTOMATED NEUTROPHIL # 10.7 TH/MM3 (1.8-7.7); BASOPHIL % 0.1 % (0.0-2.0); EOSINOPHIL # 0.3 TH/MM3 (0-0.4); EOSINOPHIL % 2.1 % (0.0-4.0); HEMATOCRIT 23.1 % (39.0-51.0); HEMO FLAGS DIFF FINAL; LYMPH % 6.1 % (9.0-44.0); LYMPHOCYTE # 0.8 TH/MM3 (1.0-4.8); MEAN CELL VOLUME 81.7 FL (80.0-100.0); MEAN CORPUSCULAR HEMOGLOBIN 27.4 PG (27.0-34.0); MEAN CORPUSCULAR HGB CONC 33.5 % (32.0-36.0); MONO % 6.5 % (0.0-8.0); NEUT % 85.2 % (16.0-70.0); PLATELET COUNT 133 TH/MM3 (150-450); RED BLOOD COUNT 2.83 MIL/MM3 (4.50-5.90); RED CELL DISTRIBUTION WIDTH 16.7 % (11.6-17.2); WHITE BLOOD COUNT 12.6 TH/MM3 (4.0-11.0)
[2016-08-01 06:12] LABS: BICARBONATE 31.3 MEQ/L (21.0-32.0); POTASSIUM 3.2 MEQ/L (3.5-5.1)
--- NOTE | 2016-08-01 06:12 | MB ---
cc: HIRAM HENLEY M.D., MARCIA N. MD DATE OF CONSULTATION July 31, 2016. CONSULTING PHYSICIAN Dr. Harrington REASON FOR CONSULTATION Hematology consult to render my opinion regarding patient with monoclonal gammopathy. HISTORY OF PRESENT ILLNESS The patient is a 61-year-old male brought into the hospital after he was found lying on the ground with altered mental status. He had a prolonged stay in the hospital from September 2015 until June of 2016. He was just recently discharged home. However, he was found laying on the ground by DCF and brought back into the hospital. He was found to have acute on chronic renal failure due to rhabdomyolysis. 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 Hematology was consulted for further evaluation. The patient is a very poor historian. He is able to answer some simple questions but cannot provide any specific details. He denies any pain. He denies any shortness of breath. Denies any chest pressure. PAST MEDICAL HISTORY 1. Coronary artery disease. 2. Hypertension. 3. Hyperlipidemia. 4. Diabetes. 5. Chronic kidney disease. 6. Congestive heart failure. 7. Peripheral arterial disease. 8. Obstructive sleep apnea. 9. Stroke. PAST SURGICAL HISTORY 1. Coronary bypass graft surgery. 2. Left kidney stent. 3. Tracheostomy. 4. Left below-knee amputation. FAMILY HISTORY Noncontributory. SOCIAL HISTORY Denies tobacco, alcohol use. ALLERGIES PENICILLIN. ASPARTAME. CURRENT MEDICATIONS 1. Protonix. 2. Norvasc. 3. Vitamin D. 4. Sodium bicarb. 5. Ferrous sulfate. 6. Eliquis. 7. Lipitor. 8. Coreg. 9. Imdur. REVIEW OF SYSTEMS CONSTITUTIONAL: Negative. EYES: Negative. ENT: Negative. CARDIOVASCULAR: As aboe. RESPIRATORY: Denies shortness of breath or cough. GI: Denies any nausea, vomiting, diarrhea, abdominal pain. : Denies dysuria or hematuria. MUSCULOSKELETAL: Denies any pain. HEMATOLOGY: As above. ENDOCRINE: Negative. DERMATOLOGY: Negative. PSYCHIATRIC: As above. NEUROLOGIC: As above. PHYSICAL EXAMINATION VITAL SIGNS: Temperature 98.9, blood pressure 106/76, O2 saturation 98% on room air. GENERAL: He knows he is in the hospital but he does not answer every question. HEENT: Atraumatic, normocephalic. Pupils equal, round and reactive to light. Extraocular muscles intact. No scleral icterus. Oropharynx - dry mucosa. No lesion. NECK: No thyromegaly. No palpable mass. LYMPHATICS: No palpable cervical, clavicular, axillary or inguinal lymph nodes. CARDIOVASCULAR: Regular S1 and S2. No murmur. LUNGS: Clear to auscultation anteriorly. ABDOMEN: Soft, nontender. Could not palpate liver or spleen. EXTREMITY EXAM: No cyanosis, no clubbing, no edema. Left below-knee amputation noted. SKIN: Decreased skin turgor. NEUROLOGIC: Nonfocal. LABORATORY DATA Reviewed. ASSESSMENT 1. Monoclonal gammopathy. I suspect he likely has monoclonal gammopathy of undetermined significance. Serum protein electrophoresis is still pending. Serum immunofixation shows IgG kappa monoclonal protein but the M-protein was not quantified. The IgG, IgA and IgM are all within normal limits. His urine free light chain assay showed elevated free kappa and lambda light chain. The ratio is only slightly elevated to 2.16. He has chronic renal failure likely due to diabetic nephropathy. He has had anemia which I think is due to chronic kidney disease. At this point I will check a 24-hour urine protein study. We will also get a bone skeletal survey. If they are negative, I would recommend clinical surveillance of his protein study. 2. Anemia which I think is due to chronic kidney disease. Iron study did not show any iron deficiency. We will check his vitamin studies. 3. Acute on chronic kidney disease due rhabdomyolysis. It is improving. 4. Coronary disease. He has no symptoms at this time. 5. Hypertension, stable. 6. Diabetes mellitus. 7. Hyperlipidemia. 8. Peripheral arterial disease. 9. History of stroke. 10. Obstructive sleep apnea. RECOMMENDATIONS 1. Check 24-hour protein study. 2. Proceed with anemia workup. 3. Arrange bone skeletal survey 4. If the above evaluation is unremarkable, recommend to monitor the protein study periodically. Thank you Dr. Harrington for asking me to see this patient. MD BALJIT Mcelroy/LA /1:17 PM /5:53 AM JAZMIN
[2016-08-01 08:00] VITALS: BP 118/74; PULSE 75; RESP 16; TEMP 98.1; O2SAT 95
[2016-08-01] MEDS ORDERED: POTASSIUM CHLORIDE 10 MEQ CONTROLLED RELEASE TAB PO ONE (08:00)
[2016-08-01] MEDS: SODIUM CHLORIDE 0.9% FLUSH 10 ML FLUSH IV FLUSH SCH ×2 (09:00→22:49)
[2016-08-01] MEDS: CARVEDILOL 12.5 MG TAB PO SCH ×2 (09:46→22:48)
[2016-08-01] MEDS: CHOLECALCIFEROL (VIT D3) 1000 UNIT TAB PO SCH (09:46)
[2016-08-01] MEDS: PANTOPRAZOLE SOD 40 MG DELAYED RELEASE TAB PO SCH (09:46)
[2016-08-01] MEDS: APIXABAN 2.5 MG TABLET PO SCH ×2 (09:46→22:48)
[2016-08-01] MEDS: FERROUS SULFATE 325 MG (65 MG ELEMENTAL IRON) TAB PO SCH (09:46)
--- NOTE | 2016-08-01 11:04 | PD.ONC.PN ---
Subjective Subjective Remarks Afebrile overnight. Pt resting in bed in no distress. He answers simple yes/no questions. He denies pain or SOB. Objective Data Date Time Temp Pulse Resp B/P Pulse Ox O2 Delivery O2 Flow Rate FiO2 08/01/16 08:00 98.1 75 16 118/74 95 08/01/16 00:00 98.8 77 22 108/67 97 07/31/16 20:00 97.4 80 22 126/76 98 07/31/16 16:00 98.7 74 16 110/74 98 07/31/16 12:00 98.9 80 18 106/76 98 08/01/16 08/01/16 08/01/16 07:00 15:00 23:00 Intake Total 1081 ml Output Total 700 ml Balance 381 ml Result Diagram: 08/01/16 0447 08/01/16 0447 Laboratory Results Laboratory Tests Test 08/01/16 04:47 White Blood Count 12.6 TH/MM3 Red Blood Count 2.83 MIL/MM3 Hemoglobin 7.7 GM/DL Hematocrit 23.1 % Mean Corpuscular Volume 81.7 FL Mean Corpuscular Hemoglobin 27.4 PG Mean Corpuscular Hemoglobin 33.5 % Concent Red Cell Distribution Width 16.7 % Platelet Count 133 TH/MM3 Mean Platelet Volume 8.4 FL Neutrophils (%) (Auto) 85.2 % Lymphocytes (%) (Auto) 6.1 % Monocytes (%) (Auto) 6.5 % Eosinophils (%) (Auto) 2.1 % Basophils (%) (Auto) 0.1 % Neutrophils # (Auto) 10.7 TH/MM3 Lymphocytes # (Auto) 0.8 TH/MM3 Monocytes # (Auto) 0.8 TH/MM3 Eosinophils # (Auto) 0.3 TH/MM3 Basophils # (Auto) 0.0 TH/MM3 CBC Comment DIFF FINAL Differential Comment Reticulocyte Count 1.8 % Absolute Reticulocyte Count 51.6 MIL/L Sodium Level 141 MEQ/L Potassium Level 3.2 MEQ/L Chloride Level 104 MEQ/L Carbon Dioxide Level 31.3 MEQ/L Anion Gap 6 MEQ/L Blood Urea Nitrogen 46 MG/DL Creatinine 2.49 MG/DL Estimat Glomerular Filtration 27 ML/MIN Rate Random Glucose 99 MG/DL Calcium Level 7.6 MG/DL Lactate Dehydrogenase 189 U/L Vitamin B12 Level 327 PG/ML Folate 13.2 NG/ML Administered Medications Medications (Trade) Dose Ordered Sig/Estuardo Route PRN Reason Start Time Stop Time Status Last Admin Dose Admin Apixaban (Eliquis) 2.5 mg BID PO 07/25/16 21:00 08/01/16 09:46 Atorvastatin Calcium (Lipitor) 80 mg HS PO 07/25/16 21:00 07/31/16 22:50 Carvedilol (Coreg) 25 mg BID PO 07/25/16 21:00 08/01/16 09:46 Ferrous Sulfate (Ferrous Sulfate) 325 mg DAILY@08 PO 07/26/16 08:00 08/01/16 09:46 Isosorbide Mononitrate (Imdur) 60 mg HS PO 07/25/16 21:00 07/31/16 22:50 Sodium Chloride (NS Flush) 2 ml BID IV FLUSH 07/25/16 21:00 07/31/16 22:49 Amlodipine Besylate (Norvasc) 10 mg DAILY PO 07/28/16 09:00 08/01/16 09:47 Cholecalciferol 2000 units 2,000 units DAILY PO 07/28/16 09:00 08/01/16 09:46 Sodium Bicarbonate/ Dextrose (Sodium Bicarbonate 8.4% Inj/D5W 1000 ml Inj) 1,075 ml @ 75 mls/hr [id number] IV 07/27/16 19:00 08/01/16 04:05 Pantoprazole Sodium (Protonix) 40 mg DAILY PO 07/31/16 12:00 08/01/16 09:46 Objective Remarks GENERAL: Disheveled older male lying in bed in [facility]. SKIN: Warm and dry. Somewhat pale appearing. HEAD: Normocephalic. EYES: No injection or drainage. NECK: Supple, trachea midline. CARDIOVASCULAR: Regular rate and rhythm without murmurs. RESPIRATORY: Breath sounds equal bilaterally. No accessory muscle use. GASTROINTESTINAL: Abdomen soft, non-tender, nondistended. EXTREMITIES: No cyanosis, or edema. BKA R leg. NEUROLOGICAL: Follows commands. Answers simple yes/no questions. Assessment/Plan Problem List: (1) Monoclonal gammopathy Status: Acute Plan: -- Likely this is monoclonal gammopathy of undetermined significance ( MGUS) -- M-spike is 0.26 -- Can recheck immune globulins once acute issues have resolved. (2) Anemia Status: Chronic Plan: -- Likely anemia of chronic disease -- Erythropoietin level pending. (3) Fwufl-us-vmxabou kidney injury Status: Acute Plan: -- Due to rhabdo -- Improving -- Nephrology following Assessment 61 y/o male who was brought in by [facility] after DCF found him at home unable to care for himself. Plan 1. He likely has monoclonal gammopathy of undetermined significance (MGUS). 2. Can repeat gammopathy studies once acute issues are resolved. 3. Bone studies negative for lytic lesions. 4. Continue supportive care. Attending Statement The exam, history, and the medical decision-making described in the above note were completed with the assistance of the mid-level provider. I reviewed and agree with the findings presented. I attest that I had a qjny-rp-suou encounter with the patient on the same day, and personally performed and documented my assessment and findings in the medical record. No new c/o. M- protein only 0.26. Bone skeletal survey negative for lytic lesion. Urine protein study pending. Appear most c/w MGUS. Problem Qualifiers (1) Anemia: Qualified Code: D50.8 - Other iron deficiency anemia Varsha Rg Aug 01, 2016 11:04 Andrzej DeL os Santos MD Aug 01, 2016 17:38
--- NOTE | 2016-08-01 11:28 | HHI.FPPN ---
Subjective Remarks Patient seen and examined this morning by medical team. No acute events overnight with vital signs stable. Patient currently resting in bed and is able to answer yes/no questioning. He denies any fevers, chest pain, shortness of breath, NVD, or calf tenderness. (Nate Avalos MD R1) Objective Vitals Vital Signs Date Time Temp Pulse Resp B/P Pulse Ox O2 Delivery O2 Flow Rate FiO2 08/01/16 08:00 98.1 75 16 118/74 95 08/01/16 00:00 98.8 77 22 108/67 97 07/31/16 20:00 97.4 80 22 126/76 98 07/31/16 16:00 98.7 74 16 110/74 98 07/31/16 12:00 98.9 80 18 106/76 98 I/O 07/31/16 07/31/16 07/31/16 08/01/16 08/01/16 08/01/16 07:00 15:00 23:00 07:00 15:00 23:00 Intake Total 693 ml 657 ml 60 ml 1081 ml Output Total 550 ml 750 ml 300 ml 700 ml Balance 143 ml -93 ml -240 ml 381 ml Intake Oral 120 ml 60 ml 0 ml IV Total 693 ml 537 ml 1081 ml Output Urine Total 550 ml 750 ml 300 ml 700 ml # Voids 1 # Bowel Movements 1 0 0 0 (Nate Avalos MD R1) Result Diagram: 08/01/1644608/01/16446 Objective Remarks GEN: Well-developed, well-nourished patient. No acute distress. Laying in bed. CV: Regular rate and rhythm without obvious murmurs. LUNGS: Clear to anterior auscultation bilaterally. No wheezes, rales, rhonchi. ABD: Soft, nondistended, nontender with +BS. NEURO/PSYCH: Arousable; answers yes/no questioning (Nate Avalos MD R1) A/P Assessment and Plan 61 yo M, hx of prolonged hospital stay from September 2015 - July 18, 2016, having returned to the hospital on July 22 for fall. Admitted for AMS, rhabdomyolysis with CK 3000, hypernatremia and anemia. Discharge Planning Pending case management and hematology recommendations. SDW: Dr. Cash and Dr. Naun Nation (Nate Avalos MD R1) Attending Attestation Patient seen and examined. Case reviewed and discussed with the resident team. Agree with plan of care as discussed with me and documented in the resident note. unclear eventual path for discharge as DCF is involved and perhaps a guardian needs to be appointed? (Mackenzie Cash MD) Problem List: (1) Fjzpl-re-rdmdeoz kidney injury Status: Acute Plan: Baseline GFR 50s. Associated rhabdomyolysis likely contributing which has now resolved. No hyperkalemia. -Avoid nephrotoxic meds -Closely monitor I&O -Renal US: unremarkable Consult nephrology: appreciate recommendations * Continue fluids * Monoclonal protein detected on serum RUDY * [place]/lambda ratio elevated. * Recommend Heme consult * Started cholecalciferol Hematology consulted: appreciate recommendations. * Likely monoclonal gammopathy of undetermined significance (MGUS) * Recheck immune globulins once acute issues have resolved * EPO level pending, likely anemia of chronic disease * 24 hour protein study * Skeletal survey: Unremarkable study with median sternotomy and multiple gallstones noted. (2) Altered mental status Status: Resolved Plan: Found to hypernatremic on admission as well as acute on chronic PAT. Electrolyte abnormality and azotemia likely contributed to presentation. Baseline mental status is unclear but pt does appear to have had multiple ischemic strokes in the past including lacunar infarcts 10/20/15. Pt now appears to be at baseline. -Hypernatremia resolved from a high of 160 -Initial Leukocytosis resolved but WBC increased on 07/31 * no clinical signs of infection, will closely monitor -Negative UA and tox screen. -ammonia, lactic acid WNL -Consider Seroquel it patient becomes agitated. Currently not needed -Speech therapy following, appreciate recs Imaging: * CXR: unremarkable * Head CT negative for acute process. Consistent with chronic change. (3) Hypernatremia Status: Resolved Plan: See plan above (4) Anemia Status: Chronic Plan: Hx of anemia. Baseline Hg 9-10. Downtrending but now stable. Team will transfuse with hemoglobin is <7. -Ferritin normal and TIBC is low. Etiology likely not due iron deficiency; Inappropriately Normal retic count -Continue PO Fe supplementation -FOBT positive GI consulted: appreciate recommendations -Continue PPI, iron -EGD +/- colonoscopy once consents are obtained/or if active bleeding -Sister may no longer have guardianship as DCF is involved with case due to poor home situation. -Once guardianship has been determined, will notify GI so that consents can be signed and procedure can be performed. Hematology Consulted: * Please see plan as above (5) Chronic systolic (congestive) heart failure Status: Chronic Plan: Patient with hx of CHF, EF 35% from September 2015. Not currently appearing to be fluid overloaded. -Closely monitor I&O (6) Coronary artery disease Status: Chronic Plan: Continue Coreg 12.5 mg po bid Continue Eliquis Continue Atorvastatin 80 mg po hs Continue Isosorbide Mononitrate 60 mg po hs (7) HTN (hypertension) Status: Chronic Plan: Continue Amlodipine 10 mg po daily -Hold for SBP <110 (8) Diabetes mellitus Status: Chronic Plan: A1C 6.9 on 11/25/15, not currently on DM meds Normal serum glucose levels -Closely monitor BMP, consider adding sliding scale once patient's PO intake improves (9) Nutrition, metabolism, and development symptoms Status: Acute Plan: Fluids: D5 1/2NS + bicarb at 75 Electrolytes: Mild hypokalemia, Potassium given DVT PPX: Eliquis continued GI PPX: Protonix (Nate Avalos MD R1) Problem Qualifiers (1) Anemia: Qualified Code: D50.8 - Other iron deficiency anemia (2) Coronary artery disease: Qualified Code: I25.10 - Coronary artery disease involving [place] heart without angina pectoris, unspecified vessel or lesion type (3) HTN (hypertension): Qualified Code: I10 - Essential hypertension (4) Diabetes mellitus: Qualified Code: E11.51 - Type 2 diabetes mellitus with diabetic peripheral angiopathy without gangrene, without long-term current use of insulin Nate Avalos MD R1 Aug 01, 2016 11:28 Mackenzie Cash MD Aug 02, 2016 09:34
[2016-08-01 12:00] VITALS: BP_SYST 111; BP_SYST 112; BP_DIAS 67; BP_DIAS 69; PULSE 76; PULSE 81; RESP 17; TEMP 98.3; TEMP 98.7; O2SAT 97; O2SAT 99
[2016-08-01 16:49] LABS: URINE TOTAL PROTEIN TIMED 65.9 MG/DL
[2016-08-01 20:00] VITALS: BP 129/79; PULSE 82; RESP 17; TEMP 99.4; O2SAT 98
[2016-08-01] MEDS: ATORVASTATIN 80 MG TAB PO SCH (22:48)
[2016-08-01] MEDS: ISOSORBIDE MONONITRATE 60 MG TAB PO SCH (22:49)
[2016-08-02] VITALS (7 sets, daily range): BP systolic 99–126; BP diastolic 58–76; PULSE 72–83; RESP 16–17; TEMP 97.2–100.7; O2SAT 94–98
[2016-08-02] MEDS: SODIUM BICARBONATE 8.4% INJ 75 MEQ in DEXTROSE 5% IN WATE 1000ML INJ 1,000 ML IV SCH ×4 (04:47→22:07)
[2016-08-02 05:34] LABS: AUTOMATED NEUTROPHIL # 8.2 TH/MM3 (1.8-7.7); BASOPHIL % 0.3 % (0.0-2.0); EOSINOPHIL # 0.3 TH/MM3 (0-0.4); EOSINOPHIL % 2.8 % (0.0-4.0); LYMPH % 10.5 % (9.0-44.0); LYMPHOCYTE # 1.1 TH/MM3 (1.0-4.8); MEAN CELL VOLUME 81.5 FL (80.0-100.0); MEAN CORPUSCULAR HEMOGLOBIN 28.3 PG (27.0-34.0); MEAN CORPUSCULAR HGB CONC 34.7 % (32.0-36.0); MONO % 8.8 % (0.0-8.0); NEUT % 77.6 % (16.0-70.0); PLATELET COUNT 150 TH/MM3 (150-450); RED BLOOD COUNT 2.53 MIL/MM3 (4.50-5.90); RED CELL DISTRIBUTION WIDTH 17.3 % (11.6-17.2); WHITE BLOOD COUNT 10.6 TH/MM3 (4.0-11.0)
[2016-08-02 05:36] LABS: HEMO FLAGS DIFF FINAL
[2016-08-02 05:38] LABS: HEMATOCRIT 20.7 % (39.0-51.0)
[2016-08-02 05:59] LABS: BICARBONATE 28.6 MEQ/L (21.0-32.0); MAGNESIUM 1.3 MG/DL (1.5-2.5); POTASSIUM 3.2 MEQ/L (3.5-5.1)
[2016-08-02] MEDS ORDERED: MAGNESIUM SULFATE 1 GM PREMIX 100 ML IV ONE (07:30)
[2016-08-02] MEDS ORDERED: POTASSIUM CHLORIDE 10 MEQ CONTROLLED RELEASE TAB PO ONE (07:30)
[2016-08-02] MEDS ORDERED: SODIUM CHLOR 0.9% 250 ML INJ 250 ML IV ONE (08:30)
[2016-08-02] MEDS ORDERED: EPOETIN ALFA 20,000 UNITS/ML VIAL SQ ONE (08:30)
[2016-08-02] MEDS: SODIUM CHLORIDE 0.9% FLUSH 10 ML FLUSH IV FLUSH SCH ×2 (09:00→22:08)
[2016-08-02] MEDS: CARVEDILOL 12.5 MG TAB PO SCH ×2 (09:50→22:08)
[2016-08-02] MEDS: FERROUS SULFATE 325 MG (65 MG ELEMENTAL IRON) TAB PO SCH (09:50)
[2016-08-02] MEDS: CHOLECALCIFEROL (VIT D3) 1000 UNIT TAB PO SCH (09:50)
[2016-08-02] MEDS: APIXABAN 2.5 MG TABLET PO SCH ×2 (09:50→22:09)
[2016-08-02] MEDS: PANTOPRAZOLE SOD 40 MG DELAYED RELEASE TAB PO SCH (09:50)
--- NOTE | 2016-08-02 11:14 | HHI.FPPN ---
Subjective Remarks Seen and examined this morning by medical team. Acute events overnight with vital signs stable. Patient continues to be nonverbal, but does answer intermittent yes and no questioning. Unable to complete review of systems due to patient's status. (Nate Avalos MD R1) Objective Vitals Vital Signs Date Time Temp Pulse Resp B/P Pulse Ox O2 Delivery O2 Flow Rate FiO2 08/02/16 08:00 97.2 72 16 104/68 94 08/02/16 00:00 98.7 79 17 126/76 98 08/01/16 20:00 99.4 82 17 129/79 98 08/01/16 12:00 98.3 76 17 111/67 99 08/01/16 12:00 98.7 81 17 112/69 97 I/O 08/01/16 08/01/16 08/01/16 08/02/16 08/02/16 08/02/16 07:00 15:00 23:00 07:00 15:00 23:00 Intake Total 1081 ml 904 ml 240 ml 240 ml Output Total 700 ml 650 ml 600 ml 400 ml Balance 381 ml 254 ml -360 ml -160 ml Intake Oral 0 ml 220 ml 240 ml 240 ml IV Total 1081 ml 684 ml Output Urine Total 700 ml 650 ml 600 ml 400 ml # Voids 1 # Bowel Movements 0 0 (Nate Avalos MD R1) Result Diagram: 08/02/1644608/02/16446 Objective Remarks GEN: Well-developed, well-nourished patient. No acute distress. Laying in bed. CV: Regular rate and rhythm without obvious murmurs. LUNGS: Clear to anterior auscultation bilaterally. No wheezes, rales, rhonchi. ABD: Soft, nondistended, nontender with +BS. EXT: No cyanosis or edema. No signs of tenderness to calf manipulation. NEURO/PSYCH: Arousable; answers yes/no questioning (Nate Avalos MD R1) A/P Assessment and Plan 61 yo M, hx of prolonged hospital stay from September 2015 - July 18, 2016, having returned to the hospital on July 22 for fall. Admitted for AMS, rhabdomyolysis with CK 3000, hypernatremia and anemia. Discharge Planning Pending case management and hematology recommendations. SDW: Dr. Naun Nation DW: Dr. Cash (Nate Avalos MD R1) Attending Attestation Patient seen and examined. Case reviewed and discussed with the resident team. Agree with plan of care as discussed with me and documented in the resident note. (Mackenzie Cash MD) Problem List: (1) Sjshl-bd-dyqcsmp kidney injury Status: Acute Plan: Baseline GFR 50s. Associated rhabdomyolysis likely contributing which has now resolved. No hyperkalemia. -Avoid nephrotoxic meds -Closely monitor I&O -Renal US: unremarkable Consult nephrology: appreciate recommendations * Continue fluids * Monoclonal protein detected on serum RUDY * [place]/lambda ratio elevated. * Recommend Heme consult * Started cholecalciferol Hematology consulted: appreciate recommendations. * 1 Unit PRBC for anemia * Procrit 20K x1 * Likely monoclonal gammopathy of undetermined significance (MGUS) * Recheck immune globulins once acute issues have resolved * EPO level pending, likely anemia of chronic disease * 24 hour protein study * Skeletal survey: Unremarkable study with median sternotomy and multiple gallstones noted. (2) Altered mental status Status: Resolved Plan: Found to hypernatremic on admission as well as acute on chronic PAT. Electrolyte abnormality and azotemia likely contributed to presentation. Baseline mental status is unclear but pt does appear to have had multiple ischemic strokes in the past including lacunar infarcts 10/20/15. Pt now appears to be at baseline. -Hypernatremia resolved from a high of 160 -Initial Leukocytosis resolved but WBC increased on 07/31, 08/01 * No clinical signs of infection, will closely monitor -Negative UA and tox screen. -Ammonia, lactic acid WNL -Consider Seroquel it patient becomes agitated. Currently not needed -Speech therapy following, appreciate recs Imaging: * CXR: unremarkable * Head CT negative for acute process. Consistent with chronic change. (3) Hypernatremia Status: Resolved Plan: See plan above (4) Anemia Status: Chronic Plan: Hx of anemia. Baseline Hg 9-10. Downtrending but now stable. Team will transfuse with hemoglobin is <7. -Ferritin normal and TIBC is low. Etiology likely not due iron deficiency; Inappropriately Normal retic count -Continue PO Fe supplementation -FOBT positive GI consulted: appreciate recommendations -Continue PPI, iron -EGD +/- colonoscopy once consents are obtained/or if active bleeding -Reconsulted as patient has new guardian that was appointed by the [facility] Hematology Consulted: * Please see plan as above (5) Chronic systolic (congestive) heart failure Status: Chronic Plan: Patient with hx of CHF, EF 35% from September 2015. Not currently appearing to be fluid overloaded. -Closely monitor I&O (6) Coronary artery disease Status: Chronic Plan: Continue Coreg 12.5 mg po bid Continue Eliquis Continue Atorvastatin 80 mg po hs Continue Isosorbide Mononitrate 60 mg po hs (7) HTN (hypertension) Status: Chronic Plan: Continue Amlodipine 10 mg po daily -Hold for SBP <110 (8) Diabetes mellitus Status: Chronic Plan: A1C 6.9 on 11/25/15, not currently on DM meds Normal serum glucose levels -Closely monitor BMP, consider adding sliding scale once patient's PO intake improves (9) Nutrition, metabolism, and development symptoms Status: Acute Plan: Fluids: D5 1/2NS + bicarb at 75 Electrolytes: Decreased potassium and magnesium, Potassium and Magnesium given DVT PPX: Eliquis continued GI PPX: Protonix (Nate Avalos MD R1) Problem Qualifiers (1) Altered mental status: Qualified Code: R41.82 - Altered mental status, unspecified altered mental status type (2) Anemia: Qualified Code: D50.8 - Other iron deficiency anemia (3) Coronary artery disease: Qualified Code: I25.10 - Coronary artery disease involving [place] heart without angina pectoris, unspecified vessel or lesion type (4) HTN (hypertension): Qualified Code: I10 - Essential hypertension (5) Diabetes mellitus: Qualified Code: E11.51 - Type 2 diabetes mellitus with diabetic peripheral angiopathy without gangrene, without long-term current use of insulin Nate Avalos MD R1 Aug 02, 2016 11:14 Mackenzie Cash MD Aug 08, 2016 14:53
--- NOTE | 2016-08-02 11:36 | PD.ONC.PN ---
Subjective Subjective Remarks Afebrile overnight. Patient non-verbal. No reported events. Objective Data Date Time Temp Pulse Resp B/P Pulse Ox O2 Delivery O2 Flow Rate FiO2 08/02/16 08:00 97.2 72 16 104/68 94 08/02/16 00:00 98.7 79 17 126/76 98 08/01/16 20:00 99.4 82 17 129/79 98 08/01/16 12:00 98.3 76 17 111/67 99 08/01/16 12:00 98.7 81 17 112/69 97 08/02/16 08/02/16 08/02/16 07:00 15:00 23:00 Intake Total 240 ml Output Total 400 ml Balance -160 ml Result Diagram: 08/02/16 0447 08/02/16 0447 Laboratory Results Laboratory Tests Test 08/01/16 08/02/16 08/02/16 14:30 04:47 09:31 Urine Total Volume 24 Hours 1850 ML Urine Total Protein 24 Hour 1219 MG/24HR White Blood Count 10.6 TH/MM3 Red Blood Count 2.53 MIL/MM3 Hemoglobin 7.2 GM/DL Hematocrit 20.7 % Mean Corpuscular Volume 81.5 FL Mean Corpuscular Hemoglobin 28.3 PG Mean Corpuscular Hemoglobin 34.7 % Concent Red Cell Distribution Width 17.3 % Platelet Count 150 TH/MM3 Mean Platelet Volume 8.0 FL Neutrophils (%) (Auto) 77.6 % Lymphocytes (%) (Auto) 10.5 % Monocytes (%) (Auto) 8.8 % Eosinophils (%) (Auto) 2.8 % Basophils (%) (Auto) 0.3 % Neutrophils # (Auto) 8.2 TH/MM3 Lymphocytes # (Auto) 1.1 TH/MM3 Monocytes # (Auto) 0.9 TH/MM3 Eosinophils # (Auto) 0.3 TH/MM3 Basophils # (Auto) 0.0 TH/MM3 CBC Comment DIFF FINAL Differential Comment Sodium Level 140 MEQ/L Potassium Level 3.2 MEQ/L Chloride Level 103 MEQ/L Carbon Dioxide Level 28.6 MEQ/L Anion Gap 8 MEQ/L Blood Urea Nitrogen 37 MG/DL Creatinine 2.41 MG/DL Estimat Glomerular Filtration 28 ML/MIN Rate Random Glucose 92 MG/DL Calcium Level 7.5 MG/DL Magnesium Level 1.3 MG/DL Blood Type O POSITIVE Antibody Screen NEGATIVE Crossmatch Leukocyte-Reduced Red Blood Cells Blood Bank Comment Administered Medications Medications (Trade) Dose Ordered Sig/Estuardo Route PRN Reason Start Time Stop Time Status Last Admin Dose Admin Apixaban (Eliquis) 2.5 mg BID PO 07/25/16 21:00 08/02/16 09:50 Atorvastatin Calcium (Lipitor) 80 mg HS PO 07/25/16 21:00 08/01/16 22:48 Carvedilol (Coreg) 25 mg BID PO 07/25/16 21:00 08/02/16 09:50 Ferrous Sulfate (Ferrous Sulfate) 325 mg DAILY@08 PO 07/26/16 08:00 08/02/16 09:50 Isosorbide Mononitrate (Imdur) 60 mg HS PO 07/25/16 21:00 08/01/16 22:49 Sodium Chloride (NS Flush) 2 ml BID IV FLUSH 07/25/16 21:00 08/01/16 22:49 Amlodipine Besylate (Norvasc) 10 mg DAILY PO 07/28/16 09:00 08/02/16 09:50 Cholecalciferol 2000 units 2,000 units DAILY PO 07/28/16 09:00 08/02/16 09:50 Sodium Bicarbonate/ Dextrose (Sodium Bicarbonate 8.4% Inj/D5W 1000 ml Inj) 1,075 ml @ 75 mls/hr [id number] IV 07/27/16 19:00 08/01/16 16:39 Pantoprazole Sodium (Protonix) 40 mg DAILY PO 07/31/16 12:00 08/02/16 09:50 Objective Remarks GENERAL: Elderly male, supine in bed in nad. non-verbal SKIN: Warm and dry. +pallor HEAD: Normocephalic. EYES: No injection or drainage. NECK: Supple, trachea midline. CARDIOVASCULAR: Regular rate and rhythm RESPIRATORY: Breath sounds equal bilaterally. No accessory muscle use. GASTROINTESTINAL: Abdomen soft, non-tender, nondistended. EXTREMITIES: No cyanosis, or edema. s/p BKA, left leg. NEUROLOGICAL: non-verbal. follows commands. Assessment/Plan Problem List: (1) Monoclonal gammopathy Status: Acute Plan: -- Likely this is monoclonal gammopathy of undetermined significance ( MGUS) -- M-spike is 0.26 -- Can recheck immune globulins once acute issues have resolved. (2) Anemia Status: Chronic Plan: -- Likely anemia of chronic disease -- Erythropoietin level pending. (3) Obnzx-wo-oicbocr kidney injury Status: Acute Plan: -- Due to rhabdo -- Improving -- Nephrology following Assessment 61 y/o male who was brought in by [facility] after DCF found him at home unable to care for himself. Plan 1. give 1 unit pRBC 2. give Procrit 20K SQ x 1 3. monitor CBC Attending Statement The exam, history, and the medical decision-making described in the above note were completed with the assistance of the mid-level provider. I reviewed and agree with the findings presented. I attest that I had a [id number] encounter with the patient on the same day, and personally performed and documented my assessment and findings in the medical record. Urine study pending. Appear to have MGUS. Hgb trending down due to chronic kidney disease. Transfuse 1U PRBC and give Epogen. Problem Qualifiers (1) Anemia: Qualified Code: D50.8 - Other iron deficiency anemia Chrissy Cannon Aug 02, 2016 11:36 Andrzej De Los Santos MD Aug 02, 2016 18:06
[2016-08-02] MEDS: ISOSORBIDE MONONITRATE 60 MG TAB PO SCH (22:09)
[2016-08-02] MEDS: ATORVASTATIN 80 MG TAB PO SCH (22:09)
[2016-08-02 22:12] LABS: REVIEW FLAG FINAL
[2016-08-03] VITALS: BP 126/68; PULSE 80; RESP 17; TEMP 99.4; O2SAT 96
[2016-08-03 05:40] LABS: HEMATOCRIT 23.8 % (39.0-51.0); MEAN CELL VOLUME 80.7 FL (80.0-100.0); MEAN CORPUSCULAR HEMOGLOBIN 28.5 PG (27.0-34.0); MEAN CORPUSCULAR HGB CONC 35.3 % (32.0-36.0); PLATELET COUNT 154 TH/MM3 (150-450); RED BLOOD COUNT 2.95 MIL/MM3 (4.50-5.90); RED CELL DISTRIBUTION WIDTH 16.3 % (11.6-17.2); REVIEW FLAG FINAL; WHITE BLOOD COUNT 7.9 TH/MM3 (4.0-11.0)
[2016-08-03] MEDS: SODIUM BICARBONATE 8.4% INJ 75 MEQ in DEXTROSE 5% IN WATE 1000ML INJ 1,000 ML IV SCH ×2 (06:02)
[2016-08-03 06:09] LABS: BICARBONATE 30.3 MEQ/L (21.0-32.0); POTASSIUM 3.5 MEQ/L (3.5-5.1)
[2016-08-03 06:22] LABS: CALCIUM-PROTEIN CORRECTED 8.2 MG/DL (8.5-10.1)
[2016-08-03 08:00] VITALS: BP 115/69; PULSE 75; RESP 16; TEMP 98; O2SAT 97
[2016-08-03] MEDS: SODIUM CHLORIDE 0.9% FLUSH 10 ML FLUSH IV FLUSH SCH ×2 (09:00→21:43)
[2016-08-03] MEDS: CHOLECALCIFEROL (VIT D3) 1000 UNIT TAB PO SCH (09:10)
[2016-08-03] MEDS: PANTOPRAZOLE SOD 40 MG DELAYED RELEASE TAB PO SCH (09:11)
[2016-08-03] MEDS: CARVEDILOL 12.5 MG TAB PO SCH ×2 (09:11→21:00)
[2016-08-03] MEDS: APIXABAN 2.5 MG TABLET PO SCH (09:11)
[2016-08-03] MEDS: FERROUS SULFATE 325 MG (65 MG ELEMENTAL IRON) TAB PO SCH (09:11)
--- NOTE | 2016-08-03 11:17 | PD.ONC.PN ---
Subjective Subjective Remarks Tmax 100.7 overnight. Patient non-verbal, resting supine in bed on approach. Objective Data Date Time Temp Pulse Resp B/P Pulse Ox O2 Delivery O2 Flow Rate FiO2 08/03/16 08:00 98.0 75 16 115/69 97 08/03/16 00:00 99.4 80 17 126/68 96 08/02/16 20:00 100.7 83 17 114/63 95 08/02/16 16:00 98.3 77 16 105/58 98 08/02/16 15:58 98.8 77 16 109/73 96 08/02/16 15:32 98.3 77 16 105/58 08/02/16 12:00 98.3 72 16 99/62 98 08/03/16 08/03/16 08/03/16 07:00 15:00 23:00 Intake Total 407 ml Output Total 350 ml Balance 57 ml Result Diagram: 08/03/16 0502 08/03/16 0502 Laboratory Results Laboratory Tests Test 08/02/16 08/03/16 21:38 05:02 Hemoglobin 8.5 GM/DL 8.4 GM/DL Hematocrit 25.0 % 23.8 % White Blood Count 7.9 TH/MM3 Red Blood Count 2.95 MIL/MM3 Mean Corpuscular Volume 80.7 FL Mean Corpuscular Hemoglobin 28.5 PG Mean Corpuscular Hemoglobin 35.3 % Concent Red Cell Distribution Width 16.3 % Platelet Count 154 TH/MM3 Mean Platelet Volume 7.8 FL Sodium Level 141 MEQ/L Potassium Level 3.5 MEQ/L Chloride Level 103 MEQ/L Carbon Dioxide Level 30.3 MEQ/L Anion Gap 8 MEQ/L Blood Urea Nitrogen 33 MG/DL Creatinine 2.44 MG/DL Estimat Glomerular Filtration 27 ML/MIN Rate Random Glucose 102 MG/DL Calcium Level 7.4 MG/DL Protein Corrected Calcium 8.2 MG/DL Total Protein 5.6 GM/DL Administered Medications Medications (Trade) Dose Ordered Sig/Estuardo Route PRN Reason Start Time Stop Time Status Last Admin Dose Admin Apixaban (Eliquis) 2.5 mg BID PO 07/25/16 21:00 08/03/16 09:11 Atorvastatin Calcium (Lipitor) 80 mg HS PO 07/25/16 21:00 08/02/16 22:09 Carvedilol (Coreg) 25 mg BID PO 07/25/16 21:00 08/03/16 09:11 Ferrous Sulfate (Ferrous Sulfate) 325 mg DAILY@08 PO 07/26/16 08:00 08/03/16 09:11 Isosorbide Mononitrate (Imdur) 60 mg HS PO 07/25/16 21:00 08/02/16 22:09 Sodium Chloride (NS Flush) 2 ml BID IV FLUSH 07/25/16 21:00 08/02/16 22:08 Amlodipine Besylate (Norvasc) 10 mg DAILY PO 07/28/16 09:00 08/03/16 09:11 Cholecalciferol (Vitamin D3) 2,000 units DAILY PO 07/28/16 09:00 08/03/16 09:10 Pantoprazole Sodium (Protonix) 40 mg DAILY PO 07/31/16 12:00 08/03/16 09:11 Objective Remarks GENERAL: Elderly male, supine in bed, sleeping on approach but easily awakened. SKIN: Warm and dry. +pallor HEAD: Normocephalic. EYES: No injection or drainage. NECK: Supple, trachea midline. CARDIOVASCULAR: Regular rate and rhythm RESPIRATORY: Breath sounds equal bilaterally. No accessory muscle use. GASTROINTESTINAL: Abdomen soft, non-tender, nondistended. EXTREMITIES: No cyanosis, or edema. s/p BKA, left leg. NEUROLOGICAL: non-verbal. supine in bed Assessment/Plan Problem List: (1) Monoclonal gammopathy Status: Acute Plan: -- Likely this is monoclonal gammopathy of undetermined significance ( MGUS) -- M-spike is 0.26 -- Can recheck immune globulins once acute issues have resolved. (2) Anemia Status: Chronic Plan: -- Likely anemia of chronic disease -- s/p Procrit 20K units + 1 unit pRBC on 08/02 (3) Iqdwh-sk-iwqjmda kidney injury Status: Acute Plan: -- Due to rhabdo -- Improving -- Nephrology following Assessment 61 y/o male who was brought in by [facility] after DCF found him at home unable to care for himself. Plan 1. monitor CBC 2. fs faxed to new patient referrals for follow up in 4-6 weeks will follow for MGUS outpatient. Attending Statement The exam, history, and the medical decision-making described in the above note were completed with the assistance of the mid-level provider. I reviewed and agree with the findings presented. I attest that I had a [id number] encounter with the patient on the same day, and personally performed and documented my assessment and findings in the medical record. No new c/o. Hgb trended up with transfusion. He had epogen x1. +proteinuria, urine RUDY pending. Continue to monitor CBC. Problem Qualifiers (1) Anemia: Qualified Code: D50.8 - Other iron deficiency anemia Chrissy Cannon Aug 03, 2016 11:17 Andrzej De Los Santos MD Aug 03, 2016 11:47
[2016-08-03 12:00] VITALS: BP 108/64; PULSE 74; RESP 16; TEMP 99.3; O2SAT 93
--- NOTE | 2016-08-03 14:00 | HHI.GIFU ---
Subjective Remarks Reconsulted for EGD/Colonoscopy. Pt now has Guardian. Called Yisel Nation CM at [facility], at . States patient does not have a Guardian yet, but that she is able to sign consents for patient until Guardian appointed. D/ W CM rationale/EGD/Colonoscopy and she is agreeable. Resting in bed. No active bleeding. (Shayna Cortez) Objective Vitals I&O Vital Signs Date Time Temp Pulse Resp B/P Pulse Ox O2 Delivery O2 Flow Rate FiO2 08/03/16 12:00 99.3 74 16 108/64 93 08/03/16 08:00 98.0 75 16 115/69 97 08/03/16 00:00 99.4 80 17 126/68 96 08/02/16 20:00 100.7 83 17 114/63 95 08/02/16 16:00 98.3 77 16 105/58 98 08/02/16 15:58 98.8 77 16 109/73 96 08/02/16 15:32 98.3 77 16 105/58 I/O 08/02/16 08/02/16 08/02/16 08/03/16 08/03/16 08/03/16 07:00 15:00 23:00 07:00 15:00 23:00 Intake Total 240 ml 1754 ml 202 ml 407 ml Output Total 400 ml 900 ml 650 ml 350 ml Balance -160 ml 854 ml -448 ml 57 ml Intake Oral 240 ml 140 ml 120 ml 120 ml IV Total 1614 ml 82 ml 287 ml Output Urine Total 400 ml 900 ml 650 ml 350 ml # Bowel Movements 0 Laboratory Laboratory Tests Test 08/02/16 08/03/16 21:38 05:02 Hemoglobin 8.5 8.4 Hematocrit 25.0 23.8 White Blood Count 7.9 Red Blood Count 2.95 Mean Corpuscular Volume 80.7 Mean Corpuscular Hemoglobin 28.5 Mean Corpuscular Hemoglobin 35.3 Concent Red Cell Distribution Width 16.3 Platelet Count 154 Mean Platelet Volume 7.8 Sodium Level 141 Potassium Level 3.5 Chloride Level 103 Carbon Dioxide Level 30.3 Anion Gap 8 Blood Urea Nitrogen 33 Creatinine 2.44 Estimat Glomerular Filtration 27 Rate Random Glucose 102 Calcium Level 7.4 Protein Corrected Calcium 8.2 Total Protein 5.6 Imaging Last Impressions Bone Osseous Survey 07/31/16 0000 Signed Impressions: Service Date/Time: Sunday, July 31, 2016 16:09 - CONCLUSION: Unremarkable bone survey. Incidental note made of median sternotomy. Multiple gallstones. Richard Gerber MD Head CT 07/25/16 1644 Signed Impressions: Service Date/Time: Monday, July 25, 2016 17:19 - CONCLUSION: 1. Lacunar infarcts bilaterally, worse on the left. 2. Negative for an acute process. Didier Clay MD FACR Renal Ultrasound 07/25/16 0000 Signed Impressions: Service Date/Time: Monday, July 25, 2016 20:55 - CONCLUSION: 1. Tiny nonobstructing calcified left renal calculi. 2. No hydronephrosis or solid renal mass. Efren Cleaning MD Chest X-Ray 07/25/16 0000 Signed Impressions: Service Date/Time: Monday, July 25, 2016 19:36 - CONCLUSION: No acute disease. Efren Cleaning MD Physical Exam HEENT: Normocephalic; atraumatic; no jaundice. CHEST: Resp shallow/even. Diminished CARDIAC: RRR ABDOMEN: Soft, nondistended, nontender; no hepatosplenomegaly; bowel sounds are present in all four quadrants. EXTREMITIES: Right BKA SKIN: Normal; no rash; no jaundice. COREMAKER BENCH: No focal deficits; alert and oriented times three. (Shayna Cortez LABORATORY ASST) Assessment and Plan Plan ASSESSMENT: - Iron Deficiency Anemia with Hemoccult positive stool. Pt hospitalized with AMS, acute on chronic kidney injury, multiple electrolytes, and his chronic medical problems. He is not having any obvious active bleeding. He is anemic, but this has remained stable and is normocytic. It is unclear if he has any hx of GI bleeding or if he has ever had an EGD/Colonoscopy in the past. At this time, his next of kin Sister Tigist Amado at [phone] is unable to be reached. I attempted to call, but the number states that she is not accepting calls at this time and there is no way to leave a message. Reconsulted for EGD/Colonoscopy. Pt now has Guardian. Called Yisel Nation CM at [facility], at . States patient does not have a Guardian yet, but that she is able to sign consents for patient until Guardian appointed. D/ W CM rationale/EGD/Colonoscopy and she is agreeable. Resting in bed. No active bleeding. He is on Eliquis. - AMS. Per primary - Acute on chronic renal failure with multiple electrolyte abnormalities. Per renal - CHF, CAD, HTN, DM, Hx CVA per primary. PLAN: - Plan for egd/colonoscopy - Obtain consents - Clear liquids - NPO after MN - Golytely prep - Hold eliquis today - Cont. PPI - Cont. Iron Supplements - Monitor HH - Pt seen and examined by Dr. Borges and myself and this note is written on his behalf (Shayna Cortez) Physician Comments Seen and examined with ROBER, consents obtained from DCF. Egd/colonoscopy tomorrow if can do prep. (Marshall Borges MD) Shanya Cortez Aug 03, 2016 14:00 Marshall Borges MD Aug 03, 2016 18:46
--- NOTE | 2016-08-03 14:34 | HHI.FPPN ---
Subjective Remarks Patient seen and examined this morning by medical team. No acute events overnight with temperature up to 100.7 post-transfusion. Patient more arousable today and answers intermitting questioning with very short sentences as well as yes/no questions. He has no complaints and denies any fevers, pain, NVD, or calf tenderness. (Nate Avalos MD R1) Objective Vitals Vital Signs Date Time Temp Pulse Resp B/P Pulse Ox O2 Delivery O2 Flow Rate FiO2 08/03/16 12:00 99.3 74 16 108/64 93 08/03/16 08:00 98.0 75 16 115/69 97 08/03/16 00:00 99.4 80 17 126/68 96 08/02/16 20:00 100.7 83 17 114/63 95 08/02/16 16:00 98.3 77 16 105/58 98 08/02/16 15:58 98.8 77 16 109/73 96 08/02/16 15:32 98.3 77 16 105/58 I/O 08/02/16 08/02/16 08/02/16 08/03/16 08/03/16 08/03/16 07:00 15:00 23:00 07:00 15:00 23:00 Intake Total 240 ml 1754 ml 202 ml 407 ml Output Total 400 ml 900 ml 650 ml 350 ml Balance -160 ml 854 ml -448 ml 57 ml Intake Oral 240 ml 140 ml 120 ml 120 ml IV Total 1614 ml 82 ml 287 ml Output Urine Total 400 ml 900 ml 650 ml 350 ml # Bowel Movements 0 (Nate Avalos MD R1) Result Diagram: 08/03/16 0502 08/03/16 0502 Objective Remarks GEN: Well-developed, well-nourished patient. No acute distress. Laying in bed. CV: Regular rate and rhythm without obvious murmurs. LUNGS: Clear to anterior auscultation bilaterally. No wheezes, rales, rhonchi. ABD: Soft, nondistended, nontender with +BS. EXT: No cyanosis or edema. No signs of tenderness to calf manipulation. NEURO/PSYCH: Arousable; answers yes/no questioning. Answers intermittent questions with very short sentences. (Nate Avalos MD R1) A/P Assessment and Plan 61 yo M, hx of prolonged hospital stay from September 2015 - July 18, 2016, having returned to the hospital on July 22 for fall. Admitted for AMS, rhabdomyolysis with CK 3000, hypernatremia and anemia. Discharge Planning Pending case management and hematology recommendations. SDW: Dr. Naun Nation DW: Dr. Cash (Nate Avalos MD R1) Attending Attestation Patient seen and examined. Case reviewed and discussed with the resident team. Agree with plan of care as discussed with me and documented in the resident note. (Mackenzie Cash MD) Problem List: (1) Encounter for dietary counseling and surveillance Status: Acute Plan: Patient with decreased oral intake of fluids and solids since admission. Consult dietary for recommendations Currently on full liquid diet with thickened liquids of nectar consistency per speech therapy Encouraged fluids and solids by mouth at the bedside Consider PEG tube placement without increasing patient compliance (2) Htqwz-sz-bortgwc kidney injury Status: Acute Plan: Baseline GFR 50s. Associated rhabdomyolysis likely contributing which has now resolved. No hyperkalemia. -Avoid nephrotoxic meds -Closely monitor I&O -Renal US: unremarkable Consult nephrology: appreciate recommendations * Continue fluids * Monoclonal protein detected on serum RUDY * [place]/lambda ratio elevated. * Recommend Heme consult * Started cholecalciferol Hematology consulted: appreciate recommendations. * 1 Unit PRBC for anemia on 08/02, posttransfusion H/H 8.5 * Procrit 20K x1 * Likely monoclonal gammopathy of undetermined significance (MGUS) * Recheck immune globulins once acute issues have resolved * EPO level pending, likely anemia of chronic disease * 24 hour protein study * Skeletal survey: Unremarkable study with median sternotomy and multiple gallstones noted. * Follow up in 4-6 weeks (3) Altered mental status Status: Resolved Plan: Found to hypernatremic on admission as well as acute on chronic PAT. Electrolyte abnormality and azotemia likely contributed to presentation. Baseline mental status is unclear but pt does appear to have had multiple ischemic strokes in the past including lacunar infarcts 10/20/15. Pt now appears to be at baseline. -Hypernatremia resolved from a high of 160 -Initial Leukocytosis resolved but WBC increased on 07/31, 08/01 * No clinical signs of infection, will closely monitor -Negative UA and tox screen. -Ammonia, lactic acid WNL -Consider Seroquel it patient becomes agitated. Currently not needed -Speech therapy following, appreciate recs Imaging: * CXR: unremarkable * Head CT negative for acute process. Consistent with chronic change. (4) Hypernatremia Status: Resolved Plan: See plan above (5) Anemia Status: Chronic Plan: Hx of anemia. Baseline Hg 9-10. Downtrending but now stable. Team will transfuse with hemoglobin is <7. -Ferritin normal and TIBC is low. Etiology likely not due iron deficiency; Inappropriately Normal retic count -Continue PO Fe supplementation -FOBT positive GI consulted: appreciate recommendations -Continue PPI, iron -EGD +/- colonoscopy tomorrow as they are obtaining consents Nothing by mouth after midnight with GoLYTELY prep Hold Eliquis -Reconsulted as patient has new guardian that was appointed by the [facility] Hematology Consulted: * Please see plan as above (6) Chronic systolic (congestive) heart failure Status: Chronic Plan: Patient with hx of CHF, EF 35% from September 2015. Not currently appearing to be fluid overloaded. -Closely monitor I&O (7) Coronary artery disease Status: Chronic Plan: Continue Coreg 12.5 mg po bid Continue Eliquis Continue Atorvastatin 80 mg po hs Continue Isosorbide Mononitrate 60 mg po hs (8) HTN (hypertension) Status: Chronic Plan: Continue Amlodipine 10 mg po daily -Hold for SBP <110 (9) Diabetes mellitus Status: Chronic Plan: A1C 6.9 on 11/25/15, not currently on DM meds Normal serum glucose levels -Closely monitor BMP, consider adding sliding scale once patient's PO intake improves (10) Nutrition, metabolism, and development symptoms Status: Acute Plan: Fluids: D5 1/2NS + bicarb at 75 Electrolytes: Decreased potassium and magnesium, Potassium and Magnesium given DVT PPX: Eliquis held for EGD/Colonoscopy GI PPX: Protonix (Nate Avalos MD R1) Problem Qualifiers (1) Altered mental status: Qualified Code: R41.82 - Altered mental status, unspecified altered mental status type (2) Anemia: Qualified Code: D50.8 - Other iron deficiency anemia (3) Coronary artery disease: Qualified Code: I25.10 - Coronary artery disease involving [place] heart without angina pectoris, unspecified vessel or lesion type (4) HTN (hypertension): Qualified Code: I10 - Essential hypertension (5) Diabetes mellitus: Qualified Code: E11.51 - Type 2 diabetes mellitus with diabetic peripheral angiopathy without gangrene, without long-term current use of insulin Nate Avalos MD R1 Aug 03, 2016 14:34 Mackenzie Cash MD Aug 08, 2016 14:54
[2016-08-03] MEDS ORDERED: PEG (High)/E-LYTE SOLN 4000 ML BTL PO ONE (15:00)
[2016-08-03 16:00] VITALS: BP 95/52; PULSE 77; RESP 17; TEMP 97.7; O2SAT 95
[2016-08-03 16:17] VITALS: BP 122/74
[2016-08-03 20:00] VITALS: BP 100/64; PULSE 72; RESP 18; TEMP 98; O2SAT 97
[2016-08-03] MEDS ORDERED: MAGNESIUM CITRATE SOLN 300 ML BTL PO ONE (20:00)
[2016-08-03] MEDS: ISOSORBIDE MONONITRATE 60 MG TAB PO SCH (21:00)
[2016-08-03] MEDS: MIRTAZAPINE 15 MG TAB PO SCH (21:43)
[2016-08-03] MEDS: ATORVASTATIN 80 MG TAB PO SCH (21:43)
[2016-08-04] VITALS: BP 106/68; PULSE 80; RESP 20; TEMP 97.6; O2SAT 96
[2016-08-04] MEDS: SODIUM BICARBONATE 8.4% INJ 75 MEQ in DEXTROSE 5% IN WATE 1000ML INJ 1,000 ML IV SCH ×4 (01:44→13:48)
[2016-08-04 04:34] LABS: HEMATOCRIT 28.4 % (39.0-51.0); MEAN CORPUSCULAR HEMOGLOBIN 26.8 PG (27.0-34.0); MEAN CORPUSCULAR HGB CONC 32.7 % (32.0-36.0); PLATELET COUNT 168 TH/MM3 (150-450); RED BLOOD COUNT 3.46 MIL/MM3 (4.50-5.90); RED CELL DISTRIBUTION WIDTH 17.1 % (11.6-17.2); WHITE BLOOD COUNT 13.9 TH/MM3 (4.0-11.0)
[2016-08-04 05:01] LABS: BICARBONATE 32.1 MEQ/L (21.0-32.0); POTASSIUM 3.5 MEQ/L (3.5-5.1)
[2016-08-04 08:00] VITALS: BP 136/86; PULSE 80; RESP 16; TEMP 99.2; O2SAT 98
[2016-08-04] MEDS: FERROUS SULFATE 325 MG (65 MG ELEMENTAL IRON) TAB PO SCH (08:00)
--- NOTE | 2016-08-04 08:22 | HHI.FPPN ---
Subjective Remarks Pt seen and examined this morning. No acute events overnight. AFVSS. Pt was not able to take all of bowel prep in anticipation of EGD and colonoscopy later today. He did have one bottle of magnesium citrate and he had one large bowel movement. He does not responds to questions this morning. He had a significant rise in his WBC count. Large wound on lower back and buttocks with significant drainage and purulent material, likely cause of leucocytosis. Pts case planner with DCF has signed consent for colonoscopy and EGD. (Subha Nation MD R2) Objective Vitals Vital Signs Date Time Temp Pulse Resp B/P Pulse Ox O2 Delivery O2 Flow Rate FiO2 08/04/16 00:00 97.6 80 20 106/68 96 08/03/16 20:00 98.0 72 18 100/64 97 08/03/16 16:17 122/74 08/03/16 16:00 97.7 77 17 95/52 95 08/03/16 12:00 99.3 74 16 108/64 93 I/O 08/03/16 08/03/16 08/03/16 08/04/16 08/04/16 08/04/16 07:00 15:00 23:00 07:00 15:00 23:00 Intake Total 407 ml 1195 ml 1310 ml 253 ml Output Total 350 ml 1100 ml 400 ml 450 ml Balance 57 ml 95 ml 910 ml -197 ml Intake Oral 120 ml 620 ml 720 ml 0 ml IV Total 287 ml 575 ml 590 ml 253 ml Output Urine Total 350 ml 1100 ml 400 ml 450 ml # Bowel Movements 0 1 1 (Subha Nation MD R2) Result Diagram: 08/04/16 0400 08/04/16 0400 Objective Remarks GEN: Well-developed, well-nourished patient. No acute distress. Laying in bed. CV: Regular rate and rhythm without obvious murmurs. LUNGS: Clear to anterior auscultation bilaterally. No wheezes, rales, rhonchi. ABD: Soft, nondistended, nontender with +BS. BACK: Large wound on lower back and buttock. Purulent material and debris covering wound on lower back. No active drainage from wound on right buttock. EXT: No cyanosis or edema. No signs of tenderness to calf manipulation. NEURO/PSYCH: Abusable; not answering questions. At baseline will answer yes/no to questions, repeat phrases. (Subha Nation MD R2) A/P Assessment and Plan 61 yo M, hx of prolonged hospital stay from September 2015 - July 18, 2016, having returned to the hospital on July 22 for fall. Admitted for AMS, rhabdomyolysis with CK 3000, hypernatremia and anemia. Discharge Planning Pending case management, GI and hematology recommendations. SDW: Dr. Avalos DW: Dr. Cash (Subha Nation MD R2) Attending Attestation Patient seen and examined. Case reviewed and discussed with the resident team. Agree with plan of care as discussed with me and documented in the resident note. (Mackenzie Cash MD) Problem List: (1) Encounter for dietary counseling and surveillance Status: Acute Plan: Patient with decreased oral intake of fluids and solids since admission. Consult dietary for recommendations Speech recommended full liquid diet with thickened liquids of nectar consistency. Patient currently nothing by mouth in anticipation of possible GI procedure. Encouraged fluids and solids by mouth at the bedside Consider PEG tube placement due to insufficient oral intake (2) Zitep-um-zjlvukk kidney injury Status: Acute Plan: Baseline GFR 50s. Associated rhabdomyolysis likely contributing which has now resolved. No hyperkalemia. -Avoid nephrotoxic meds -Closely monitor I&O -Renal US: unremarkable Consult nephrology: appreciate recommendations * Continue fluids * Monoclonal protein detected on serum RUDY * [place]/lambda ratio elevated. * Recommend Heme consult * Started cholecalciferol Hematology consulted: appreciate recommendations. * 1 Unit PRBC for anemia on 08/02, posttransfusion H/H 8.5/25 * Procrit 20K x1 * Likely monoclonal gammopathy of undetermined significance (MGUS) * Recheck immune globulins once acute issues have resolved * Likely anemia of chronic disease * Skeletal survey: Unremarkable study with median sternotomy and multiple gallstones noted. (3) Altered mental status Status: Resolved Plan: Found to hypernatremic on admission as well as acute on chronic PAT. Electrolyte abnormality and azotemia likely contributed to presentation. Baseline mental status is unclear but pt does appear to have had multiple ischemic strokes in the past including lacunar infarcts 10/20/15. Pt now appears to be at baseline. -Hypernatremia resolved from a high of 160 -Negative UA and tox screen. -Ammonia, lactic acid WNL -Consider Seroquel it patient becomes agitated. Currently not needed -Speech therapy following, appreciate recs Imaging: * CXR: unremarkable * Head CT negative for acute process. Consistent with chronic change. (4) Hypernatremia Status: Resolved Plan: See plan above (5) Unstageable decubitus ulcer Status: Acute Plan: Patient with large decubitus ulcer over lower back. Nursing staff has been changeling wound dressings daily. -Wound care consulted, appreciate recommendations (6) Anemia Status: Chronic Plan: Hx of anemia. Baseline Hg 9-10. Downtrending but now stable. Team will transfuse with hemoglobin is <7. -Ferritin normal and TIBC is low. Etiology likely not due iron deficiency; Inappropriately Normal retic count -Continue PO Fe supplementation -FOBT positive GI consulted: appreciate recommendations -Continue PPI, iron -EGD +/- colonoscopy possible later today Nothing by mouth after midnight with GoLYTELY prep Hold Eliquis Reconsulted as patient has new guardian that was appointed by the [facility] Hematology Consulted: * Please see plan as above (7) Chronic systolic (congestive) heart failure Status: Chronic Plan: Patient with hx of CHF, EF 35% from September 2015. Not currently appearing to be fluid overloaded. -Closely monitor I&O's (8) Coronary artery disease Status: Chronic Plan: Continue Coreg 12.5 mg po bid Continue Eliquis Continue Atorvastatin 80 mg po hs Continue Isosorbide Mononitrate 60 mg po hs (9) HTN (hypertension) Status: Chronic Plan: Continue Amlodipine 10 mg po daily -Hold for SBP <110 (10) Diabetes mellitus Status: Chronic Plan: A1C 6.9 on 11/25/15, not currently on DM meds Normal serum glucose levels -Closely monitor BMP, consider adding sliding scale once patient's PO intake improves (11) Nutrition, metabolism, and development symptoms Status: Acute Plan: Fluids: D5 1/2NS + bicarb at 75 Electrolytes: Decreased potassium and magnesium, Potassium and Magnesium given DVT PPX: Eliquis held for EGD/Colonoscopy GI PPX: Protonix (Subha Nation MD R2) Problem Qualifiers (1) Altered mental status: Qualified Code: R41.82 - Altered mental status, unspecified altered mental status type (2) Anemia: Qualified Code: D50.8 - Other iron deficiency anemia (3) Coronary artery disease: Qualified Code: I25.10 - Coronary artery disease involving [place] heart without angina pectoris, unspecified vessel or lesion type (4) HTN (hypertension): Qualified Code: I10 - Essential hypertension (5) Diabetes mellitus: Qualified Code: E11.51 - Type 2 diabetes mellitus with diabetic peripheral angiopathy without gangrene, without long-term current use of insulin Subha Nation MD R2 Aug 04, 2016 08:22 Mackenzie Cash MD Aug 08, 2016 14:54
[2016-08-04] MEDS: CHOLECALCIFEROL (VIT D3) 1000 UNIT TAB PO SCH (09:00)
[2016-08-04] MEDS: SODIUM CHLORIDE 0.9% FLUSH 10 ML FLUSH IV FLUSH SCH ×2 (09:00→21:00)
[2016-08-04] MEDS: CARVEDILOL 12.5 MG TAB PO SCH ×2 (09:00→21:00)
[2016-08-04] MEDS: PANTOPRAZOLE SOD 40 MG DELAYED RELEASE TAB PO SCH (09:00)
--- NOTE | 2016-08-04 09:08 | PD.ONC.PN ---
Subjective Subjective Remarks Patient is sleepy, no c/o. Objective Data Date Time Temp Pulse Resp B/P Pulse Ox O2 Delivery O2 Flow Rate FiO2 08/04/16 08:00 99.2 80 16 136/86 98 08/04/16 00:00 97.6 80 20 106/68 96 08/03/16 20:00 98.0 72 18 100/64 97 08/03/16 16:17 122/74 08/03/16 16:00 97.7 77 17 95/52 95 08/03/16 12:00 99.3 74 16 108/64 93 08/04/16 08/04/16 08/04/16 07:00 15:00 23:00 Intake Total 253 ml Output Total 450 ml Balance -197 ml Result Diagram: 08/04/16 0400 08/04/16 040 Laboratory Results Laboratory Tests Test 08/04/16 04:00 White Blood Count 13.9 TH/MM3 Red Blood Count 3.46 MIL/MM3 Hemoglobin 9.3 GM/DL Hematocrit 28.4 % Mean Corpuscular Volume 82.0 FL Mean Corpuscular Hemoglobin 26.8 PG Mean Corpuscular Hemoglobin 32.7 % Concent Red Cell Distribution Width 17.1 % Platelet Count 168 TH/MM3 Mean Platelet Volume 7.6 FL Sodium Level 139 MEQ/L Potassium Level 3.5 MEQ/L Chloride Level 101 MEQ/L Carbon Dioxide Level 32.1 MEQ/L Anion Gap 6 MEQ/L Blood Urea Nitrogen 25 MG/DL Creatinine 2.22 MG/DL Estimat Glomerular Filtration 30 ML/MIN Rate Random Glucose 99 MG/DL Calcium Level 7.8 MG/DL Administered Medications Medications (Trade) Dose Ordered Sig/Estuardo Route PRN Reason Start Time Stop Time Status Last Admin Dose Admin Apixaban (Eliquis) 2.5 mg BID PO 07/25/16 21:00 Hold 08/03/16 09:11 Atorvastatin Calcium (Lipitor) 80 mg HS PO 07/25/16 21:00 08/03/16 21:43 Carvedilol (Coreg) 25 mg BID PO 07/25/16 21:00 08/03/16 09:11 Ferrous Sulfate (Ferrous Sulfate) 325 mg DAILY@08 PO 07/26/16 08:00 08/03/16 09:11 Isosorbide Mononitrate (Imdur) 60 mg HS PO 07/25/16 21:00 08/02/16 22:09 Sodium Chloride (NS Flush) 2 ml BID IV FLUSH 07/25/16 21:00 08/03/16 21:43 Amlodipine Besylate (Norvasc) 10 mg DAILY PO 07/28/16 09:00 08/03/16 09:11 Cholecalciferol (Vitamin D3) 2,000 units DAILY PO 07/28/16 09:00 08/03/16 09:10 Pantoprazole Sodium (Protonix) 40 mg DAILY PO 07/31/16 12:00 08/03/16 09:11 Mirtazapine 15 mg 15 mg HS PO 08/03/16 21:00 08/03/16 21:43 Sodium Bicarbonate/ Dextrose (Sodium Bicarbonate 8.4% Inj/D5W 1000 ml Inj) 1,075 ml @ 75 mls/hr [id number] IV 08/04/16 00:00 08/04/16 01:44 Objective Remarks GENERAL: Well-nourished, well-developed patient. Sleepy. SKIN: Warm and dry. HEAD: Normocephalic. EYES: No scleral icterus. No injection or drainage. NECK: Supple, trachea midline. No JVD or lymphadenopathy. LYMPHATIC: No adenopathy. CARDIOVASCULAR: Regular rate and rhythm without murmurs. RESPIRATORY: Breath sounds equal bilaterally. No accessory muscle use. GASTROINTESTINAL: Abdomen soft, non-tender, nondistended. EXTREMITIES: No cyanosis, or edema. below knee amputation MUSCULOSKELETAL: Adequate muscle tone. Assessment/Plan Problem List: (1) Monoclonal gammopathy Status: Acute Plan: -- Consistent with monoclonal gammopathy of undetermined significance ( MGUS) -- M-spike is 0.26 -- Can recheck immune globulins once acute issues have resolved. --Urine RUDY no monoclonal protein. (2) Anemia Status: Chronic Plan: -- Likely anemia of chronic disease -- s/p Procrit 20K units + 1 unit pRBC on 08/02 --Hgb has trended up. (3) Iqbdk-ps-tgtpskw kidney injury Status: Acute Plan: -- Due to rhabdo -- Improving -- Nephrology following Assessment 61 y/o male who was brought in by [facility] after DCF found him at home unable to care for himself. Plan 1. monitor CBC periodically 2. May need weekly epogen if Hgb <10. Problem Qualifiers (1) Anemia: Qualified Code: D50.8 - Other iron deficiency anemia Andrzej De Los Santos MD Aug 04, 2016 09:08
[2016-08-04 10:41] LABS: EOSINOPHILS 1 % (0-4); NEUTROPHIL # MANUAL DIFF 13.1 TH/MM3 (1.8-7.7); POLYS (SEG NEUTROPHILS) 94 % (16-70); WBC DIFF SAMPLE 100
[2016-08-04 10:42] LABS: PLATELET ESTIMATE SMEAR NORMAL (NORMAL); PLATELET MORPHOLOGY NORMAL (NORMAL)
[2016-08-04 10:43] LABS: SCAN/DIFF FINAL DIFF MANUAL
[2016-08-04 12:00] VITALS: BP 126/83; PULSE 75; RESP 17; TEMP 97.7; O2SAT 97
[2016-08-04] MEDS: COLLAGENASE OINT 30 GM TUBE TOPICAL SCH (14:30)
[2016-08-04 16:00] VITALS: BP 105/62; PULSE 78; RESP 18; TEMP 98.3; O2SAT 96
--- NOTE | 2016-08-04 16:58 | HHI.GIFU ---
Subjective Remarks Pt is resting comfortably in bed. Pt did not take all of bowel prep and did not have BM so colonoscopy today was cancelled. (Bella Reyes) Objective Vitals I&O Vital Signs Date Time Temp Pulse Resp B/P Pulse Ox O2 Delivery O2 Flow Rate FiO2 08/04/16 16:00 98.3 78 18 105/62 96 08/04/16 12:00 97.7 75 17 126/83 97 08/04/16 08:00 99.2 80 16 136/86 98 08/04/16 00:00 97.6 80 20 106/68 96 08/03/16 20:00 98.0 72 18 100/64 97 I/O 08/03/16 08/03/16 08/03/16 08/04/16 08/04/16 08/04/16 07:00 15:00 23:00 07:00 15:00 23:00 Intake Total 407 ml 1195 ml 1310 ml 253 ml 625 ml Output Total 350 ml 1100 ml 400 ml 450 ml 700 ml Balance 57 ml 95 ml 910 ml -197 ml -75 ml Intake Oral 120 ml 620 ml 720 ml 0 ml 0 ml IV Total 287 ml 575 ml 590 ml 253 ml 625 ml Output Urine Total 350 ml 1100 ml 400 ml 450 ml 700 ml # Bowel Movements 0 1 1 0 Laboratory Laboratory Tests Test 08/04/16 04:00 White Blood Count 13.9 Red Blood Count 3.46 Hemoglobin 9.3 Hematocrit 28.4 Mean Corpuscular Volume 82.0 Mean Corpuscular Hemoglobin 26.8 Mean Corpuscular Hemoglobin 32.7 Concent Red Cell Distribution Width 17.1 Platelet Count 168 Mean Platelet Volume 7.6 Differential Total Cells 100 Counted Neutrophils % (Manual) 94 Lymphocytes % 5 Eosinophils % 1 Neutrophils # (Manual) 13.1 Differential Comment FINAL DIFF MANUAL Platelet Estimate NORMAL Platelet Morphology Comment NORMAL Sodium Level 139 Potassium Level 3.5 Chloride Level 101 Carbon Dioxide Level 32.1 Anion Gap 6 Blood Urea Nitrogen 25 Creatinine 2.22 Estimat Glomerular Filtration 30 Rate Random Glucose 99 Calcium Level 7.8 Date/Time Procedure Status Source Growth 08/04/16 10:00 Gram Stain - Final Resulted Wound Buttock 08/04/16 10:00 Wound Culture Resulted Wound Buttock Pending Imaging Last Impressions Bone Osseous Survey 07/31/16 0000 Signed Impressions: Service Date/Time: Sunday, July 31, 2016 16:09 - CONCLUSION: Unremarkable bone survey. Incidental note made of median sternotomy. Multiple gallstones. Richard Gerber MD Head CT 07/25/16 1644 Signed Impressions: Service Date/Time: Monday, July 25, 2016 17:19 - CONCLUSION: 1. Lacunar infarcts bilaterally, worse on the left. 2. Negative for an acute process. Didier Clay MD FACR Renal Ultrasound 07/25/16 0000 Signed Impressions: Service Date/Time: Monday, July 25, 2016 20:55 - CONCLUSION: 1. Tiny nonobstructing calcified left renal calculi. 2. No hydronephrosis or solid renal mass. Efren Cleaning MD Chest X-Ray 07/25/16 0000 Signed Impressions: Service Date/Time: Monday, July 25, 2016 19:36 - CONCLUSION: No acute disease. Efren Cleaning MD Physical Exam HEENT: Normocephalic; atraumatic; no jaundice. CHEST: Resp shallow/even. Diminished CARDIAC: RRR ABDOMEN: Soft, nondistended, nontender; no hepatosplenomegaly; bowel sounds are present in all four quadrants. EXTREMITIES: Right BKA SKIN: Normal; no rash; no jaundice. BUSINESS SERVICES CLERK: No focal deficits; somnolent. (Bella Reyes [facility]) Assessment and Plan Plan ASSESSMENT: - Iron Deficiency Anemia with Hemoccult positive stool. Pt hospitalized with AMS, acute on chronic kidney injury, multiple electrolytes, and his chronic medical problems. He is not having any obvious active bleeding. He is anemic, but this has remained stable and is normocytic. It is unclear if he has any hx of GI bleeding or if he has ever had an EGD/Colonoscopy in the past. Pt now has Guardian. Called Yisel Nation CM at [facility], at . States patient does not have a Guardian yet, but that she is able to sign consents for patient until Guardian appointed. D/W CM rationale/EGD/Colonoscopy and she is agreeable. Resting in bed. No active bleeding. He is on Eliquis. - AMS. Per primary - Acute on chronic renal failure with multiple electrolyte abnormalities. Per renal - CHF, CAD, HTN, DM, Hx CVA per primary. PLAN: - Plan for egd/colonoscopy - NG tube for bowel prep - Obtain consents - Clear liquids - NPO after MN - Golytely prep - Hold eliquis today - Cont. PPI - Cont. Iron Supplements - Monitor HH - Pt seen and examined by Dr. Borges and myself and this note is written on his behalf (Bella Reyes) Physician Comments Seen and examined with ROBER, unable to complete prep so procedure cancelled today. Place ng and if can do prep will attempt procedure tomorrow. (Marshall Borges MD) Bella Reyes Aug 04, 2016 16:58 Marshall Borges MD Aug 04, 2016 19:34
[2016-08-04] MEDS ORDERED: PEG (High)/E-LYTE SOLN 4000 ML BTL NG ONE (18:00)
[2016-08-04 20:00] VITALS: BP 108/75; PULSE 79; RESP 20; TEMP 98.6; O2SAT 98
[2016-08-04] MEDS: ISOSORBIDE MONONITRATE 60 MG TAB PO SCH (21:16)
[2016-08-04] MEDS: MIRTAZAPINE 15 MG TAB PO SCH (21:16)
[2016-08-04] MEDS: ATORVASTATIN 80 MG TAB PO SCH (21:16)
[2016-08-04 23:58] VITALS: BP 102/65; PULSE 90; RESP 19; TEMP 98.5; O2SAT 98
[2016-08-05] MEDS: SODIUM BICARBONATE 8.4% INJ 75 MEQ in DEXTROSE 5% IN WATE 1000ML INJ 1,000 ML IV SCH ×2 (05:30)
[2016-08-05 08:00] VITALS: BP 108/77; PULSE 86; RESP 18; TEMP 96.4; O2SAT 96
[2016-08-05] MEDS: FERROUS SULFATE 325 MG (65 MG ELEMENTAL IRON) TAB PO SCH (08:00)
[2016-08-05] MEDS: CARVEDILOL 12.5 MG TAB PO SCH ×2 (08:13→21:11)
[2016-08-05] MEDS: CHOLECALCIFEROL (VIT D3) 1000 UNIT TAB PO SCH (08:13)
[2016-08-05] MEDS: PANTOPRAZOLE SOD 40 MG DELAYED RELEASE TAB PO SCH (08:13)
[2016-08-05] MEDS: SODIUM CHLORIDE 0.9% FLUSH 10 ML FLUSH IV FLUSH SCH ×2 (08:15→21:11)
[2016-08-05] MEDS: COLLAGENASE OINT 30 GM TUBE TOPICAL SCH (08:15)
[2016-08-05 09:00] VITALS: BP 138/78; PULSE 77; RESP 16; TEMP 97.8; O2SAT 99
[2016-08-05] MEDS ORDERED: PROPOFOL 200 MG/20 ML AMP IV ONE (09:32)
--- NOTE | 2016-08-05 10:21 | GIPROC ---
[facility] [address] [facility]. [facility], [address] COLONOSCOPY PROCEDURE REPORT EXAM DATE: 08/05/2016 PATIENT NAME: Bobby Amado MR #: [id number] BIRTHDATE: 1955 ENDOSCOPIST: Marshall Borges MD ORDER #: [id number] BICYCLE RENTAL CLERK: Mack Pillai and Brijesh Santos STATUS: inpatient INDICATIONS: The patient is a 61 yr old male here for a colonoscopy due to iron deficiency anemia PROCEDURE PERFORMED: Colonoscopy, incomplete MEDICATIONS: None and Per Anesthesia. PREP QUALITY: poor PREP TYPE:GoLytely ESTIMATED BLOOD LOSS: None CONSENT: The patient understands the risks and benefits of the procedure and understands that these risks include, but are not limited to: sedation, allergic reaction, infection, perforation and/or bleeding. Alternative means of evaluation and treatment include, among others: physical exam, x-rays, and/or surgical intervention. The patient elects to proceed with this endoscopic procedure. medical equipment was checked for proper function. Hand hygiene and appropriate measures for infection prevention was taken. After the risks, benefits and alternatives of the procedure were thoroughly explained, Informed consent was verified, confirmed and timeout was successfully executed by the treatment team. A digital exam revealed external hemorrhoids The Pentax [id number] and [id number] endoscope was introduced through the anus and advanced to the sigmoid colon. The instrument was then slowly withdrawn as the colon was fully examined. COLON FINDINGS: Poor prep. Retroflexed views revealed internal hemorrhoids and Retroflexed views revealed small internal hemorrhoids The scope was then completely withdrawn from the patient and the procedure terminated. ADVERSE EVENTS: There were no complications. IMPRESSIONS: 1. Poor prep 2. Retroflexed views revealed internal hemorrhoids 3. Retroflexed views revealed small internal hemorrhoids 4. Revealed external hemorrhoids RECOMMENDATIONS: 1. Continue surveillance 2. Yearly hemoccult RECALL: Return 3 days Colonoscopy Marshall Borges MD eSigned: Marshall Borges MD 08/05/2016 10:21 AM cc:
[2016-08-05 11:41] LABS: AUTOMATED NEUTROPHIL # 8.2 TH/MM3 (1.8-7.7); BASOPHIL # 0.1 TH/MM3 (0-0.2); BASOPHIL % 0.5 % (0.0-2.0); EOSINOPHIL # 0.2 TH/MM3 (0-0.4); EOSINOPHIL % 2.1 % (0.0-4.0); HEMATOCRIT 27.3 % (39.0-51.0); HEMO FLAGS DIFF FINAL; LYMPH % 10.6 % (9.0-44.0); LYMPHOCYTE # 1.1 TH/MM3 (1.0-4.8); MEAN CELL VOLUME 81.9 FL (80.0-100.0); MEAN CORPUSCULAR HEMOGLOBIN 27.5 PG (27.0-34.0); MEAN CORPUSCULAR HGB CONC 33.6 % (32.0-36.0); MONO % 8.9 % (0.0-8.0); NEUT % 77.9 % (16.0-70.0); PLATELET COUNT 155 TH/MM3 (150-450); RED BLOOD COUNT 3.34 MIL/MM3 (4.50-5.90); RED CELL DISTRIBUTION WIDTH 16.7 % (11.6-17.2); WHITE BLOOD COUNT 10.5 TH/MM3 (4.0-11.0)
[2016-08-05 12:00] VITALS: BP 119/70; PULSE 75; RESP 16; TEMP 97.8; O2SAT 95
[2016-08-05 12:04] LABS: BICARBONATE 31.9 MEQ/L (21.0-32.0); MAGNESIUM 1.6 MG/DL (1.5-2.5); POTASSIUM 3.6 MEQ/L (3.5-5.1)
--- NOTE | 2016-08-05 12:12 | HHI.FPPN ---
Subjective Remarks Pt seen and examined this morning after EGD/Colonoscopy. AFVSS. There were no complications with the procedure. Pt slightly drowsy, not answering questions this morning. (Subha Nation MD R2) Objective Vitals Vital Signs Date Time Temp Pulse Resp B/P Pulse Ox O2 Delivery O2 Flow Rate FiO2 08/05/16 10:15 74 16 111/67 95 08/05/16 10:05 74 16 95/63 98 08/05/16 09:54 97.8 75 16 119/74 98 08/05/16 09:00 97.8 77 16 138/78 99 08/05/16 08:00 96.4 86 18 108/77 96 08/04/16 23:58 98.5 90 19 102/65 98 08/04/16 20:00 98.6 79 20 108/75 98 08/04/16 16:00 98.3 78 18 105/62 96 08/04/16 12:00 97.7 75 17 126/83 97 I/O 08/04/16 08/04/16 08/04/16 08/05/16 08/05/16 08/05/16 07:00 15:00 23:00 07:00 15:00 23:00 Intake Total 253 ml 625 ml 30 ml 1916 ml 300 ml Output Total 450 ml 700 ml 1240 ml 350 ml Balance -197 ml -75 ml -1210 ml 1566 ml 300 ml Intake Oral 0 ml 0 ml 30 ml 860 ml IV Total 253 ml 625 ml 1056 ml Other 300 ml Output Urine Total 450 ml 700 ml 400 ml 350 ml Gastric Drainage Total 840 ml # Bowel Movements 1 0 1 3 (Subha Nation MD R2) Result Diagram: 08/04/16 0400 08/04/16 0400 Objective Remarks GEN: Well-developed, well-nourished patient. No acute distress. Laying in bed. CV: Regular rate and rhythm without obvious murmurs. LUNGS: Clear to anterior auscultation bilaterally. No wheezes, rales, rhonchi. ABD: Soft, nondistended, nontender with +BS. BACK: Large wound on lower back and buttocks. No active drainage. EXT: No cyanosis or edema. No signs of tenderness to calf manipulation. NEURO/PSYCH: Abusable; not answering questions. At baseline will answer yes/no to questions, repeat phrases. (Subha Nation MD R2) A/P Assessment and Plan 61 yo M, hx of prolonged hospital stay from September 2015 - July 18, 2016, having returned to the hospital on July 22 for fall. Admitted for AMS, rhabdomyolysis with CK 3000, hypernatremia and anemia. Discharge Planning Pending case management, GI and hematology recommendations. SDW: Dr. Avalos DW: Dr. Cash (Subha Nation MD R2) Attending Attestation Patient seen and examined. Case reviewed and discussed with the resident team. Agree with plan of care as discussed with me and documented in the resident note. (Mackenzie Cash MD) Problem List: (1) Encounter for dietary counseling and surveillance Status: Acute Plan: Patient with an adequate oral intake of fluids and solids since admission. Dietary consulted, appreciate recommendations Alternate method of nutrition recommended as patient with inadequate oral intake Speech recommended full liquid diet with thickened liquids of nectar consistency. Patient currently nothing by mouth in anticipation of possible GI procedure. Encouraged fluids and solids by mouth at the bedside Consider PEG tube placement due to insufficient oral intake (2) [id number]-[id number] kidney injury Status: Acute Plan: Baseline GFR 50s. Associated rhabdomyolysis likely contributing which has now resolved. No hyperkalemia. -Avoid nephrotoxic meds -Closely monitor I&O -Renal US: unremarkable Consult nephrology: appreciate recommendations * Continue fluids * Monoclonal protein detected on serum RUDY * [place]/lambda ratio elevated. * Recommend Heme consult * Started cholecalciferol Hematology consulted: appreciate recommendations. * 1 Unit PRBC for anemia on 08/02, posttransfusion H/H 8.5/25 * Procrit 20K x1 * Likely monoclonal gammopathy of undetermined significance (MGUS) * Recheck immune globulins once acute issues have resolved * Likely anemia of chronic disease * Skeletal survey: Unremarkable study with median sternotomy and multiple gallstones noted. (3) Altered mental status Status: Resolved Plan: Found to hypernatremic on admission as well as acute on chronic PAT. Electrolyte abnormality and azotemia likely contributed to presentation. Baseline mental status is unclear but pt does appear to have had multiple ischemic strokes in the past including lacunar infarcts 10/20/15. Pt now appears to be at baseline. -Hypernatremia resolved from a high of 160 -Negative UA and tox screen. -Ammonia, lactic acid WNL -Consider Seroquel it patient becomes agitated. Currently not needed -Speech therapy following, appreciate recs Imaging: * CXR: unremarkable * Head CT negative for acute process. Consistent with chronic change. (4) Unstageable decubitus ulcer Status: Acute Plan: Patient with large decubitus ulcer over lower back. Nursing staff has been changing wound dressings daily. -Wound care consulted, appreciate recommendations -Collagenase ointment to be applied daily (5) Anemia Status: Chronic Plan: Hx of anemia. Baseline Hg 9-10. Downtrending but now stable. Team will transfuse with hemoglobin is <7. -Ferritin normal and TIBC is low. Etiology likely not due iron deficiency; Inappropriately Normal retic count -Continue PO Fe supplementation -FOBT positive GI consulted: appreciate recommendations Continue PPI, iron EGD/colonoscopy performed on 08/05 Colonoscopy limited due to poor bowel prep Retroflexed views revealed internal hemorrhoids, small internal hemorrhoids , external hemorrhoids Patient to return in 3 days for complete colonoscopy Yearly Hemoccult recommended Hematology Consulted: * Please see plan as above (6) Chronic systolic (congestive) heart failure Status: Chronic Plan: Patient with hx of CHF, EF 35% from September 2015. Not currently appearing to be fluid overloaded. -Closely monitor I&O's (7) Coronary artery disease Status: Chronic Plan: Continue Coreg 12.5 mg po bid Continue Eliquis Continue Atorvastatin 80 mg po hs Continue Isosorbide Mononitrate 60 mg po hs (8) HTN (hypertension) Status: Chronic Plan: Continue Amlodipine 10 mg po daily -Hold for SBP <110 (9) Diabetes mellitus Status: Chronic Plan: A1C 6.9 on 11/25/15, not currently on DM meds Normal serum glucose levels -Monitor BMP, consider adding sliding scale once patient's PO intake improves (10) Nutrition, metabolism, and development symptoms Status: Acute Plan: Fluids: Will hold in attempt to increase PO intake Electrolytes: Within normal limits, continue to monitor DVT PPX: Eliquis GI PPX: Protonix (Subha Nation MD R2) Problem Qualifiers (1) Altered mental status: Qualified Code: R41.82 - Altered mental status, unspecified altered mental status type (2) Anemia: Qualified Code: D50.8 - Other iron deficiency anemia (3) Coronary artery disease: Qualified Code: I25.10 - Coronary artery disease involving [place] heart without angina pectoris, unspecified vessel or lesion type (4) HTN (hypertension): Qualified Code: I10 - Essential hypertension (5) Diabetes mellitus: Qualified Code: E11.51 - Type 2 diabetes mellitus with diabetic peripheral angiopathy without gangrene, without long-term current use of insulin Subha Nation MD R2 Aug 05, 2016 12:12 Mackenzie Cash MD Aug 08, 2016 14:55
[2016-08-05 16:00] VITALS: BP 109/65; PULSE 86; RESP 16; TEMP 97.7; O2SAT 97
--- NOTE | 2016-08-05 19:31 | PD.ONC.PN ---
Subjective Subjective Remarks More awake. No CP/SOB. No abdominal pain. Objective Data Date Time Temp Pulse Resp B/P Pulse Ox O2 Delivery O2 Flow Rate FiO2 08/05/16 16:00 97.7 86 16 109/65 97 08/05/16 12:00 97.8 75 16 119/70 95 08/05/16 10:15 74 16 111/67 95 08/05/16 10:05 74 16 95/63 98 08/05/16 09:54 97.8 75 16 119/74 98 08/05/16 09:00 97.8 77 16 138/78 99 08/05/16 08:00 96.4 86 18 108/77 96 08/04/16 23:58 98.5 90 19 102/65 98 08/04/16 20:00 98.6 79 20 108/75 98 08/05/16 08/05/16 08/05/16 07:00 15:00 23:00 Intake Total 1916 ml 300 ml Output Total 350 ml Balance 1566 ml 300 ml Result Diagram: 08/05/16 1110 08/05/16 1110 Laboratory Results Laboratory Tests Test 08/05/16 11:10 White Blood Count 10.5 TH/MM3 Red Blood Count 3.34 MIL/MM3 Hemoglobin 9.2 GM/DL Hematocrit 27.3 % Mean Corpuscular Volume 81.9 FL Mean Corpuscular Hemoglobin 27.5 PG Mean Corpuscular Hemoglobin 33.6 % Concent Red Cell Distribution Width 16.7 % Platelet Count 155 TH/MM3 Mean Platelet Volume 7.5 FL Neutrophils (%) (Auto) 77.9 % Lymphocytes (%) (Auto) 10.6 % Monocytes (%) (Auto) 8.9 % Eosinophils (%) (Auto) 2.1 % Basophils (%) (Auto) 0.5 % Neutrophils # (Auto) 8.2 TH/MM3 Lymphocytes # (Auto) 1.1 TH/MM3 Monocytes # (Auto) 0.9 TH/MM3 Eosinophils # (Auto) 0.2 TH/MM3 Basophils # (Auto) 0.1 TH/MM3 CBC Comment DIFF FINAL Differential Comment Sodium Level 140 MEQ/L Potassium Level 3.6 MEQ/L Chloride Level 101 MEQ/L Carbon Dioxide Level 31.9 MEQ/L Anion Gap 7 MEQ/L Blood Urea Nitrogen 20 MG/DL Creatinine 1.95 MG/DL Estimat Glomerular Filtration 35 ML/MIN Rate Random Glucose 91 MG/DL Calcium Level 7.9 MG/DL Magnesium Level 1.6 MG/DL Culture Results Microbiology Date/Time Procedure Status Source Growth 08/04/16 10:00 Gram Stain - Final Resulted Wound Buttock 08/04/16 10:00 Wound Culture - Preliminary Resulted Staphylococcus Aureus Gram Negative Rubens Administered Medications Medications (Trade) Dose Ordered Sig/Estuardo Route PRN Reason Start Time Stop Time Status Last Admin Dose Admin Apixaban (Eliquis) 2.5 mg BID PO 07/25/16 21:00 Hold 08/03/16 09:11 Atorvastatin Calcium (Lipitor) 80 mg HS PO 07/25/16 21:00 08/04/16 21:16 Carvedilol (Coreg) 25 mg BID PO 07/25/16 21:00 08/03/16 09:11 Ferrous Sulfate (Ferrous Sulfate) 325 mg DAILY@08 PO 07/26/16 08:00 08/05/16 08:00 Isosorbide Mononitrate (Imdur) 60 mg HS PO 07/25/16 21:00 08/04/16 21:16 Sodium Chloride (NS Flush) 2 ml BID IV FLUSH 07/25/16 21:00 08/05/16 08:15 Amlodipine Besylate (Norvasc) 10 mg DAILY PO 07/28/16 09:00 08/03/16 09:11 Cholecalciferol (Vitamin D3) 2,000 units DAILY PO 07/28/16 09:00 08/03/16 09:10 Pantoprazole Sodium (Protonix) 40 mg DAILY PO 07/31/16 12:00 08/03/16 09:11 Mirtazapine (Remeron) 15 mg HS PO 08/03/16 21:00 08/04/16 21:16 Collagenase (Santyl Oint) 1 applic DAILY TOPICAL 08/04/16 14:30 08/05/16 08:15 Objective Remarks GENERAL: Well-nourished, well-developed patient. More awake SKIN: Warm and dry. HEAD: Normocephalic. EYES: No scleral icterus. No injection or drainage. NECK: Supple, trachea midline. No JVD or lymphadenopathy. LYMPHATIC: No adenopathy. CARDIOVASCULAR: Regular rate and rhythm without murmurs. RESPIRATORY: Breath sounds equal bilaterally. No accessory muscle use. GASTROINTESTINAL: Abdomen soft, non-tender, nondistended. EXTREMITIES: No cyanosis, or edema. MUSCULOSKELETAL: Adequate muscle tone. Assessment/Plan Problem List: (1) Monoclonal gammopathy Status: Acute Plan: -- Consistent with monoclonal gammopathy of undetermined significance ( MGUS) -- M-spike is 0.26 -- Can recheck immune globulins once acute issues have resolved. --Urine RUDY no monoclonal protein. (2) Anemia Status: Chronic Plan: -- due anemia of chronic renal disease -- s/p Procrit 20K units + 1 unit pRBC on 08/02 --Hgb has trended up and remains stable. (3) [id number] kidney injury Status: Acute Plan: -- Due to rhabdo -- Improving -- Nephrology following Assessment 61 y/o male who was brought in by [facility] after DCF found him at home unable to care for himself. Plan 1. monitor CBC periodically 2. May need weekly epogen for anemia of chronic kidney disease. Problem Qualifiers (1) Anemia: Qualified Code: D50.8 - Other iron deficiency anemia Andrzej De Los Santos MD Aug 05, 2016 19:31
[2016-08-05 20:00] VITALS: BP 141/83; PULSE 82; RESP 19; TEMP 99; O2SAT 94
[2016-08-05] MEDS: ATORVASTATIN 80 MG TAB PO SCH (21:10)
[2016-08-05] MEDS: MIRTAZAPINE 15 MG TAB PO SCH (21:10)
[2016-08-05] MEDS: ISOSORBIDE MONONITRATE 60 MG TAB PO SCH (21:10)
[2016-08-06 00:01] VITALS: BP 137/72; PULSE 90; RESP 21; TEMP 98.5; O2SAT 99
[2016-08-06 06:02] LABS: AUTOMATED NEUTROPHIL # 7.2 TH/MM3 (1.8-7.7); BASOPHIL % 0.5 % (0.0-2.0); EOSINOPHIL # 0.3 TH/MM3 (0-0.4); EOSINOPHIL % 3.1 % (0.0-4.0); HEMATOCRIT 26.3 % (39.0-51.0); HEMO FLAGS DIFF FINAL; LYMPH % 14.6 % (9.0-44.0); LYMPHOCYTE # 1.4 TH/MM3 (1.0-4.8); MEAN CELL VOLUME 81.8 FL (80.0-100.0); MEAN CORPUSCULAR HEMOGLOBIN 27.7 PG (27.0-34.0); MEAN CORPUSCULAR HGB CONC 33.9 % (32.0-36.0); MONO % 8.7 % (0.0-8.0); NEUT % 73.1 % (16.0-70.0); PLATELET COUNT 186 TH/MM3 (150-450); RED BLOOD COUNT 3.21 MIL/MM3 (4.50-5.90); RED CELL DISTRIBUTION WIDTH 16.7 % (11.6-17.2); WHITE BLOOD COUNT 9.9 TH/MM3 (4.0-11.0)
[2016-08-06 06:27] LABS: BICARBONATE 32.2 MEQ/L (21.0-32.0); POTASSIUM 3.5 MEQ/L (3.5-5.1)
[2016-08-06 08:00] VITALS: BP 88/59; PULSE 84; RESP 16; TEMP 95.4; O2SAT 94
[2016-08-06] MEDS: FERROUS SULFATE 325 MG (65 MG ELEMENTAL IRON) TAB PO SCH (08:14)
[2016-08-06] MEDS: SODIUM CHLORIDE 0.9% FLUSH 10 ML FLUSH IV FLUSH SCH ×2 (08:14→20:51)
[2016-08-06] MEDS: CARVEDILOL 12.5 MG TAB PO SCH ×2 (08:14→20:51)
[2016-08-06] MEDS: CHOLECALCIFEROL (VIT D3) 1000 UNIT TAB PO SCH (08:14)
[2016-08-06] MEDS: PANTOPRAZOLE SOD 40 MG DELAYED RELEASE TAB PO SCH (08:14)
[2016-08-06] MEDS: COLLAGENASE OINT 30 GM TUBE TOPICAL SCH (08:15)
--- NOTE | 2016-08-06 09:28 | HHI.FPPN ---
Subjective Remarks Patient seen and examined this morning. No acute events overnight with VSS. Patient intermittently cooperative in interview this morning. Does tell examiners he would like to lay down and he is not hungry, but does not answer other questioning about hunger, pain, etc. He does not participate in the ROS and does not communicate a current complaint. (Nate Avalos MD R1) Objective Vitals Vital Signs Date Time Temp Pulse Resp B/P Pulse Ox O2 Delivery O2 Flow Rate FiO2 08/06/16 00:01 98.5 90 21 137/72 99 08/05/16 20:00 99.0 82 19 141/83 94 08/05/16 16:00 97.7 86 16 109/65 97 08/05/16 12:00 97.8 75 16 119/70 95 08/05/16 10:15 74 16 111/67 95 08/05/16 10:05 74 16 95/63 98 08/05/16 09:54 97.8 75 16 119/74 98 I/O 08/05/16 08/05/16 08/05/16 08/06/16 08/06/16 08/06/16 07:00 15:00 23:00 07:00 15:00 23:00 Intake Total 1916 ml 300 ml 60 ml 240 ml Output Total 350 ml 800 ml Balance 1566 ml 300 ml 60 ml -560 ml Intake Oral 860 ml 60 ml 240 ml IV Total 1056 ml Other 300 ml Output Urine Total 350 ml 800 ml # Voids 2 3 # Bowel Movements 3 2 2 2 (Nate Avalos MD R1) Result Diagram: 08/06/1652608/06/16526 Objective Remarks GEN: Thin, frail 61 y/o M in no acute distress. Laying in bed. CV: Regular rate and rhythm without obvious murmurs. LUNGS: Clear to anterior auscultation bilaterally. No wheezes, rales, rhonchi. ABD: Soft, nondistended, nontender with +BS. No masses appreciated. BACK: Large wound on lower back and buttocks currently covered with appropriate bandage, CDI. No active drainage. EXT: No cyanosis or edema. No signs of tenderness to calf manipulation. NEURO/PSYCH: Abusable; not answering questions. At baseline will answer yes/no to questions, repeat some phrases. (Nate Avalos MD R1) A/P Assessment and Plan 61 yo M, hx of prolonged hospital stay from September 2015 - July 18, 2016, having returned to the hospital on July 22 for fall. Admitted for AMS, rhabdomyolysis with CK 3000, hypernatremia and anemia. Discharge Planning Pending hematology recommendations, case management placement, and guardianship. SDW: Dr. Naun Nation DW: Dr. Cash (Nate Avalos MD R1) Attending Attestation Patient seen and examined. Case reviewed and discussed with the resident team. Agree with plan of care as discussed with me and documented in the resident note. (Mackenzie Cash MD) Problem List: (1) Encounter for dietary counseling and surveillance Status: Acute Plan: Patient with an adequate oral intake of fluids and solids since admission. Dietary consulted, appreciate recommendations Alternate method of nutrition recommended as patient with inadequate oral intake Speech recommended full liquid diet with thickened liquids of nectar consistency. Patient currently nothing by mouth in anticipation of possible GI procedure. Encouraged fluids and solids by mouth at the bedside Discontinued fluids on 08/05 to encourage PO hydration and intake. Start calorie count 08/06. Consider PEG tube placement due to insufficient oral intake (2) Krpeb-[id number]-[id number] kidney injury Status: Acute Plan: Baseline GFR 50s. Associated rhabdomyolysis likely contributing which has now resolved. No hyperkalemia. -Avoid nephrotoxic meds -Closely monitor I&O -Renal US: unremarkable Consult nephrology: appreciate recommendations * Continue fluids * Monoclonal protein detected on serum RUDY * [place]/lambda ratio elevated. * Recommend Heme consult * Started cholecalciferol Hematology consulted: appreciate recommendations. * 1 Unit PRBC for anemia on 08/02, posttransfusion H/H 8.09/22 * Procrit 20K x1 * Likely monoclonal gammopathy of undetermined significance (MGUS) * Recheck immune globulins once acute issues have resolved * Likely anemia of chronic disease * Skeletal survey: Unremarkable study with median sternotomy and multiple gallstones noted. (3) Altered mental status Status: Resolved Plan: Found to hypernatremic on admission as well as acute on chronic PAT. Electrolyte abnormality and azotemia likely contributed to presentation. Baseline mental status is unclear but pt does appear to have had multiple ischemic strokes in the past including lacunar infarcts 10/20/15. Pt now appears to be at baseline. -Hypernatremia resolved from a high of 160 -Negative UA and tox screen. -Ammonia, lactic acid WNL -Consider Seroquel it patient becomes agitated. Currently not needed -Speech therapy following, appreciate recs Imaging: * CXR: unremarkable * Head CT negative for acute process. Consistent with chronic change. (4) Unstageable decubitus ulcer Status: Acute Plan: Patient with large decubitus ulcer over lower back. Nursing staff has been changing wound dressings daily. -Wound care consulted, appreciate recommendations -Collagenase ointment to be applied daily (5) Anemia Status: Chronic Plan: Hx of anemia. Baseline Hg 9-10. Downtrending but now stable. Team will transfuse with hemoglobin is <7. -Ferritin normal and TIBC is low. Etiology likely not due iron deficiency; Inappropriately Normal retic count -Continue PO Fe supplementation -FOBT positive GI consulted: appreciate recommendations Continue PPI, iron EGD/colonoscopy performed on 08/05 Colonoscopy limited due to poor bowel prep Retroflexed views revealed internal hemorrhoids, small internal hemorrhoids , external hemorrhoids Patient to return in 3 days for complete colonoscopy, recommend yearly hemoccult Yearly Hemoccult recommended Hematology Consulted: * Please see plan as above (6) Chronic systolic (congestive) heart failure Status: Chronic Plan: Patient with hx of CHF, EF 35% from September 2015. Not currently appearing to be fluid overloaded. -Closely monitor I&O's (7) Coronary artery disease Status: Chronic Plan: Continue Coreg 12.5 mg po bid Continue Eliquis Continue Atorvastatin 80 mg po hs Continue Isosorbide Mononitrate 60 mg po hs (8) HTN (hypertension) Status: Chronic Plan: Continue Amlodipine 10 mg po daily -Hold for SBP <110 (9) Diabetes mellitus Status: Chronic Plan: A1C 6.9 on 11/25/15, not currently on DM meds Normal serum glucose levels -Monitor BMP, consider adding sliding scale once patient's PO intake improves (10) Nutrition, metabolism, and development symptoms Status: Acute Plan: Fluids: Will hold in attempt to increase PO intake Electrolytes: Within normal limits, continue to monitor DVT PPX: Eliquis GI PPX: Protonix (Nate Avalos MD R1) Problem Qualifiers (1) Altered mental status: Qualified Code: R41.82 - Altered mental status, unspecified altered mental status type (2) Anemia: Qualified Code: D50.8 - Other iron deficiency anemia (3) Coronary artery disease: Qualified Code: I25.10 - Coronary artery disease involving [place] heart without angina pectoris, unspecified vessel or lesion type (4) HTN (hypertension): Qualified Code: I10 - Essential hypertension (5) Diabetes mellitus: Qualified Code: E11.51 - Type 2 diabetes mellitus with diabetic peripheral angiopathy without gangrene, without long-term current use of insulin Nate Avalos MD R1 Aug 06, 2016 09:28 Mackenzie Cash MD Aug 08, 2016 14:55
[2016-08-06 09:50] VITALS: BP 102/66
[2016-08-06 16:00] VITALS: BP 109/76; PULSE 64; RESP 16; TEMP 96.7; O2SAT 96
--- NOTE | 2016-08-06 18:09 | HHI.GIFU ---
Subjective Remarks Pt resting in bed. Nonverbal. Per RN no bleeding, no BM today. Objective Vitals I&O Vital Signs Date Time Temp Pulse Resp B/P Pulse Ox O2 Delivery O2 Flow Rate FiO2 08/06/16 16:00 96.7 64 16 109/76 96 08/06/16 09:50 102/66 08/06/16 08:00 95.4 84 16 88/59 94 08/06/16 00:01 98.5 90 21 137/72 99 08/05/16 20:00 99.0 82 19 141/83 94 I/O 08/05/16 08/05/16 08/05/16 08/06/16 08/06/16 08/06/16 07:00 15:00 23:00 07:00 15:00 23:00 Intake Total 1916 ml 300 ml 60 ml 240 ml 100 ml Output Total 350 ml 800 ml 700 ml Balance 1566 ml 300 ml 60 ml -560 ml -600 ml Intake Oral 860 ml 60 ml 240 ml 100 ml IV Total 1056 ml 0 ml Other 300 ml Output Urine Total 350 ml 800 ml 700 ml # Voids 2 3 # Bowel Movements 3 2 2 2 0 Laboratory Laboratory Tests Test 08/06/16 05:27 White Blood Count 9.9 Red Blood Count 3.21 Hemoglobin 8.9 Hematocrit 26.3 Mean Corpuscular Volume 81.8 Mean Corpuscular Hemoglobin 27.7 Mean Corpuscular Hemoglobin 33.9 Concent Red Cell Distribution Width 16.7 Platelet Count 186 Mean Platelet Volume 7.5 Neutrophils (%) (Auto) 73.1 Lymphocytes (%) (Auto) 14.6 Monocytes (%) (Auto) 8.7 Eosinophils (%) (Auto) 3.1 Basophils (%) (Auto) 0.5 Neutrophils # (Auto) 7.2 Lymphocytes # (Auto) 1.4 Monocytes # (Auto) 0.9 Eosinophils # (Auto) 0.3 Basophils # (Auto) 0.0 CBC Comment DIFF FINAL Differential Comment Sodium Level 141 Potassium Level 3.5 Chloride Level 102 Carbon Dioxide Level 32.2 Anion Gap 7 Blood Urea Nitrogen 20 Creatinine 1.99 Estimat Glomerular Filtration 34 Rate Random Glucose 98 Calcium Level 7.9 Date/Time Procedure Status Source Growth 08/04/16 10:00 Gram Stain - Final Resulted Wound Buttock 08/04/16 10:00 Wound Culture - Preliminary Resulted Staphylococcus Aureus Pseudomonas Aeruginosa Imaging Last Impressions Bone Osseous Survey 07/31/16 0000 Signed Impressions: Service Date/Time: Sunday, July 31, 2016 16:09 - CONCLUSION: Unremarkable bone survey. Incidental note made of median sternotomy. Multiple gallstones. Richard Gerber MD Head CT 07/25/16 1644 Signed Impressions: Service Date/Time: Monday, July 25, 2016 17:19 - CONCLUSION: 1. Lacunar infarcts bilaterally, worse on the left. 2. Negative for an acute process. Didier Clay MD FACR Renal Ultrasound 07/25/16 0000 Signed Impressions: Service Date/Time: Monday, July 25, 2016 20:55 - CONCLUSION: 1. Tiny nonobstructing calcified left renal calculi. 2. No hydronephrosis or solid renal mass. Efren Cleaning MD Chest X-Ray 07/25/16 0000 Signed Impressions: Service Date/Time: Monday, July 25, 2016 19:36 - CONCLUSION: No acute disease. Efren Cleaning MD Physical Exam HEENT: Normocephalic; atraumatic; no jaundice. CHEST: Resp shallow/even. Diminished CARDIAC: RRR ABDOMEN: Soft, nondistended, nontender; no hepatosplenomegaly; bowel sounds are present in all four quadrants. EXTREMITIES: Right BKA SKIN: Normal; no rash; no jaundice. INTELLIGENCE OFFICER BASIC: No focal deficits; somnolent. Assessment and Plan Plan ASSESSMENT: - Iron Deficiency Anemia with Hemoccult positive stool. s/p colonoscopy 08/05/16- -----> poor prep, internal hemorrhoids, recommendation to repeat in 3 days. NG tube was placed for admin of bowel prep and was still poor prep. Pt hospitalized with AMS, acute on chronic kidney injury, multiple electrolytes, and his chronic medical problems. He is not having any obvious active bleeding. He is anemic, but this has remained stable and is normocytic. It is unclear if he has any hx of GI bleeding or if he has ever had an EGD/ Colonoscopy in the past. Pt now has Guardian. - AMS. Per primary - Acute on chronic renal failure with multiple electrolyte abnormalities. Per renal - CHF, CAD, HTN, DM, Hx CVA per primary. PLAN: - Repeat colonoscopy Monday - will await recommendation from Dr. Victoria on selection and admin of bowel prep ? - Obtain consents - Clear liquids monday - NPO after MN monday - eliquis still held - Cont. PPI - Cont. Iron Supplements - Monitor HH - Pt seen and examined by Dr. Victoria and myself and this note is written on his behalf Bella Reyes Aug 06, 2016 18:09
[2016-08-06 20:00] VITALS: BP 120/65; PULSE 72; RESP 20; TEMP 97.2; O2SAT 95
[2016-08-06] MEDS: ISOSORBIDE MONONITRATE 60 MG TAB PO SCH (20:49)
[2016-08-06] MEDS: ATORVASTATIN 80 MG TAB PO SCH (20:49)
[2016-08-06] MEDS: MIRTAZAPINE 15 MG TAB PO SCH (20:51)
[2016-08-07] VITALS: BP 111/70; PULSE 80; RESP 18; TEMP 97.8; O2SAT 95
[2016-08-07 06:11] LABS: AUTOMATED NEUTROPHIL # 7.3 TH/MM3 (1.8-7.7); BASOPHIL % 0.5 % (0.0-2.0); EOSINOPHIL # 0.2 TH/MM3 (0-0.4); EOSINOPHIL % 2.5 % (0.0-4.0); HEMATOCRIT 25.2 % (39.0-51.0); HEMO FLAGS DIFF FINAL; LYMPH % 12.7 % (9.0-44.0); LYMPHOCYTE # 1.2 TH/MM3 (1.0-4.8); MEAN CELL VOLUME 82.8 FL (80.0-100.0); MEAN CORPUSCULAR HEMOGLOBIN 28.2 PG (27.0-34.0); MEAN CORPUSCULAR HGB CONC 34.1 % (32.0-36.0); MONO % 7.6 % (0.0-8.0); NEUT % 76.7 % (16.0-70.0); PLATELET COUNT 179 TH/MM3 (150-450); RED BLOOD COUNT 3.05 MIL/MM3 (4.50-5.90); RED CELL DISTRIBUTION WIDTH 16.7 % (11.6-17.2); WHITE BLOOD COUNT 9.5 TH/MM3 (4.0-11.0)
[2016-08-07 06:15] LABS: BICARBONATE 30.4 MEQ/L (21.0-32.0); MAGNESIUM 1.5 MG/DL (1.5-2.5); POTASSIUM 3.5 MEQ/L (3.5-5.1)
[2016-08-07 08:00] VITALS: BP 139/83; PULSE 80; RESP 17; TEMP 97.5; O2SAT 94
[2016-08-07] MEDS: FERROUS SULFATE 325 MG (65 MG ELEMENTAL IRON) TAB PO SCH ×2 (08:00→08:15)
[2016-08-07] MEDS: SODIUM CHLORIDE 0.9% FLUSH 10 ML FLUSH IV FLUSH SCH ×2 (08:15→21:47)
[2016-08-07] MEDS: PANTOPRAZOLE SOD 40 MG DELAYED RELEASE TAB PO SCH ×2 (08:15→09:00)
[2016-08-07] MEDS: CHOLECALCIFEROL (VIT D3) 1000 UNIT TAB PO SCH ×2 (08:15→09:00)
[2016-08-07] MEDS: COLLAGENASE OINT 30 GM TUBE TOPICAL SCH (08:16)
[2016-08-07] MEDS: CARVEDILOL 12.5 MG TAB PO SCH ×3 (08:17→21:00)
--- NOTE | 2016-08-07 08:24 | HHI.FPPN ---
Subjective Remarks Patient seen and examined. MAGED. VSSAF. Nonverbal and does not engage in exam. However is arousable. (Bernice Vasquez MD R3) Objective Vitals Vital Signs Date Time Temp Pulse Resp B/P Pulse Ox O2 Delivery O2 Flow Rate FiO2 08/07/16 00:00 97.8 80 18 111/70 95 08/06/16 20:00 97.2 72 20 120/65 95 08/06/16 16:00 96.7 64 16 109/76 96 08/06/16 09:50 102/66 I/O 08/06/16 08/06/16 08/06/16 08/07/16 08/07/16 08/07/16 07:00 15:00 23:00 07:00 15:00 23:00 Intake Total 240 ml 100 ml 120 ml 0 ml 0 ml Output Total 800 ml 700 ml 600 ml 0 ml Balance -560 ml -600 ml -480 ml 0 ml 0 ml Intake Oral 240 ml 100 ml 120 ml 0 ml IV Total 0 ml 0 ml 0 ml Output Urine Total 800 ml 700 ml 600 ml 0 ml # Bowel Movements 2 0 0 0 (Bernice Vasquez MD R3) Result Diagram: 08/07/16 0458 08/07/16 0458 Imaging Bone Osseous Survey 07/31/16 0000 Signed Impressions: Service Date/Time: Sunday, July 31, 2016 16:09 - CONCLUSION: Unremarkable bone survey. Incidental note made of median sternotomy. Multiple gallstones. Richard Gerber MD Head CT 07/25/16 1644 Signed Impressions: Service Date/Time: Monday, July 25, 2016 17:19 - CONCLUSION: 1. Lacunar infarcts bilaterally, worse on the left. 2. Negative for an acute process. Didier Clay MD FACR Renal Ultrasound 07/25/16 0000 Signed Impressions: Service Date/Time: Monday, July 25, 2016 20:55 - CONCLUSION: 1. Tiny nonobstructing calcified left renal calculi. 2. No hydronephrosis or solid renal mass. Efren Cleaning MD Chest X-Ray 07/25/16 0000 Signed Impressions: Service Date/Time: Monday, July 25, 2016 19:36 - CONCLUSION: No acute disease. Efren Cleaning MD Objective Remarks GEN: Thin, frail 61 y/o M in no acute distress. Laying in bed. SKIN: Stage 3 decubitus sacral ulcer. Good granulation tissue. No active drainage. Dry mucous membrane. CV: Regular rate and rhythm without obvious murmurs. LUNGS: Clear to anterior auscultation bilaterally. No wheezes, rales, rhonchi. EXT: No cyanosis or edema. No signs of tenderness to calf manipulation. NEURO/PSYCH: Arousable, answers questions with mainly yes or no. Minimal engagement in conversation. (Bernice Vasquez MD R3) A/P Assessment and Plan 61 yo M, hx of prolonged hospital stay from September 2015 - July 18, 2016, having returned to the hospital on July 22 for fall. Admitted for AMS, rhabdomyolysis , dehydration, hypernatremia and anemia. Discharge Planning Discharge pending clinical improvement and placement. Will need PEG given poor oral intake. GI on board. SDW: Dr. Cash (Bernice Vasquez MD R3) Attending Attestation Patient seen and examined. Case reviewed and discussed with the resident team. Agree with plan of care as discussed with me and documented in the resident note. (Mackenzie Cash MD) Problem List: (1) Encounter for dietary counseling and surveillance Status: Acute Plan: Patient with inadequate/poor oral intake of fluids and solids since admission. Speech recommended full liquid diet with thickened liquids of nectar consistency. However patient has been refusing to eat. I/O 220/1300. Discussed case with Dr. Calderon. Patient will likely need PEG tube given insufficient oral intake and nutrition. -GI on board: * Plan for PEG tube placement tomorrow Dietary consulted, appreciate recommendations Patient currently nothing by mouth in anticipation of possible GI procedure. Resume IV fluids (2) Anemia Status: Chronic Plan: Hx of anemia. Baseline Hg 9-10; likly ACD. Downtrending but now stable. Team will transfuse with hemoglobin is <7. -Continue PO Fe supplementation -FOBT positive GI consulted: appreciate recommendations Continue PPI, iron EGD/colonoscopy performed on 08/05 revealed internal hemorrhoids, small internal hemorrhoids, external hemorrhoids. However limited due to poor bowel prep Discussed case with Dr. Calderon. Initially plan was to repeat colonoscopy on 08/08; however patient has been unable to tolerate colon prep even with NGT. No urgency to repeat colonoscopy during this hospitalization. Given poor po intake, will plan for PEG tube placement on 08/08 per GI. Will defer repeat colonoscopy once patient is more clinically stable. Hematology Consulted: * Please see plan as above (3) [id number] kidney injury Status: Acute Plan: Baseline GFR 50s. Associated rhabdomyolysis likely contributing which has now resolved. No hyperkalemia. -Avoid nephrotoxic meds -Closely monitor I&O -Renal US: unremarkable Consult nephrology: appreciate recommendations * Monoclonal protein detected on serum RUDY * [place]/lambda ratio elevated. * Started cholecalciferol Hematology consulted: appreciate recommendations. * 1 Unit PRBC for anemia on 08/02, posttransfusion H/H 8.09/22 * Procrit 20K x1 * Likely monoclonal gammopathy of undetermined significance (MGUS) * Recheck immune globulins once acute issues have resolved * Likely anemia of chronic disease * Skeletal survey: Unremarkable study with median sternotomy and multiple gallstones noted. (4) Altered mental status Status: Resolved Plan: Found to hypernatremic on admission as well as acute on chronic PAT. Electrolyte abnormality and azotemia likely contributed to presentation. Baseline mental status is unclear but pt does appear to have had multiple ischemic strokes in the past including lacunar infarcts 10/20/15. Pt now appears to be at baseline. -Hypernatremia resolved from a high of 160 -Negative UA and tox screen. -Ammonia, lactic acid WNL -Consider Seroquel it patient becomes agitated. Currently not needed -Speech therapy following, appreciate recs Imaging: * CXR: unremarkable * Head CT negative for acute process. Consistent with chronic change. (5) Unstageable decubitus ulcer Status: Acute Plan: Patient with large decubitus ulcer over lower back. Nursing staff has been changing wound dressings daily. -Wound care consulted, appreciate recommendations -Collagenase ointment to be applied daily (6) Chronic systolic (congestive) heart failure Status: Chronic Plan: Patient with hx of CHF, EF 35% from September 2015. Not currently appearing to be fluid overloaded. -Closely monitor I&O's (7) Coronary artery disease Status: Chronic Plan: Continue Coreg 12.5 mg po bid Continue Eliquis Continue Atorvastatin 80 mg po hs Continue Isosorbide Mononitrate 60 mg po hs (8) HTN (hypertension) Status: Chronic Plan: Continue Amlodipine 10 mg po daily -Hold for SBP <110 (9) Diabetes mellitus Status: Chronic Plan: A1C 6.9 on 11/25/15, not currently on DM meds Normal serum glucose levels -Monitor BMP (10) Nutrition, metabolism, and development symptoms Status: Acute Plan: Fluids: Resume IVFs as patient is not really tolerating po. Electrolytes: Within normal limits, continue to monitor DVT PPX: Eliquis GI PPX: Protonix (Bernice Vasquez MD R3) Problem Qualifiers (1) Anemia: Qualified Code: D50.8 - Other iron deficiency anemia (2) Altered mental status: Qualified Code: R41.82 - Altered mental status, unspecified altered mental status type (3) Coronary artery disease: Qualified Code: I25.10 - Coronary artery disease involving [place] heart without angina pectoris, unspecified vessel or lesion type (4) HTN (hypertension): Qualified Code: I10 - Essential hypertension (5) Diabetes mellitus: Qualified Code: E11.51 - Type 2 diabetes mellitus with diabetic peripheral angiopathy without gangrene, without long-term current use of insulin Bernice Vasquez MD R3 Aug 07, 2016 08:24 Mackenzie Cash MD Aug 08, 2016 14:56
[2016-08-07 12:00] VITALS: BP 99/71; PULSE 83; RESP 17; TEMP 95.3; O2SAT 95
[2016-08-07] MEDS: SODIUM CHLOR 0.9% 1000 ML INJ 1,000 ML IV SCH (13:51)
[2016-08-07 16:00] VITALS: BP 97/63; PULSE 94; RESP 16; TEMP 95.8; O2SAT 95
--- NOTE | 2016-08-07 16:16 | HHI.GIFU ---
Subjective Remarks patient has poor intake and maybe dehydrated. Objective Vitals I&O Vital Signs Date Time Temp Pulse Resp B/P Pulse Ox O2 Delivery O2 Flow Rate FiO2 08/07/16 12:00 95.3 83 17 99/71 95 08/07/16 08:00 97.5 80 17 139/83 94 08/07/16 00:00 97.8 80 18 111/70 95 08/06/16 20:00 97.2 72 20 120/65 95 I/O 08/06/16 08/06/16 08/06/16 08/07/16 08/07/16 08/07/16 07:00 15:00 23:00 07:00 15:00 23:00 Intake Total 240 ml 100 ml 120 ml 0 ml 0 ml Output Total 800 ml 700 ml 600 ml 0 ml 600 ml Balance -560 ml -600 ml -480 ml 0 ml -600 ml Intake Oral 240 ml 100 ml 120 ml 0 ml 0 ml IV Total 0 ml 0 ml 0 ml Output Urine Total 800 ml 700 ml 600 ml 0 ml 600 ml # Bowel Movements 2 0 0 0 0 Laboratory Laboratory Tests Test 08/07/16 04:58 White Blood Count 9.5 Red Blood Count 3.05 Hemoglobin 8.6 Hematocrit 25.2 Mean Corpuscular Volume 82.8 Mean Corpuscular Hemoglobin 28.2 Mean Corpuscular Hemoglobin 34.1 Concent Red Cell Distribution Width 16.7 Platelet Count 179 Mean Platelet Volume 7.2 Neutrophils (%) (Auto) 76.7 Lymphocytes (%) (Auto) 12.7 Monocytes (%) (Auto) 7.6 Eosinophils (%) (Auto) 2.5 Basophils (%) (Auto) 0.5 Neutrophils # (Auto) 7.3 Lymphocytes # (Auto) 1.2 Monocytes # (Auto) 0.7 Eosinophils # (Auto) 0.2 Basophils # (Auto) 0.0 CBC Comment DIFF FINAL Differential Comment Sodium Level 141 Potassium Level 3.5 Chloride Level 103 Carbon Dioxide Level 30.4 Anion Gap 8 Blood Urea Nitrogen 19 Creatinine 1.90 Estimat Glomerular Filtration 36 Rate Random Glucose 77 Calcium Level 7.9 Phosphorus Level 2.2 Magnesium Level 1.5 Total Protein 5.6 Date/Time Procedure Status Source Growth 08/04/16 10:00 Gram Stain - Final Complete Wound Buttock 08/04/16 10:00 Wound Culture - Final Complete Staphylococcus Aureus Pseudomonas Aeruginosa Physical Exam HEENT: Normocephalic; atraumatic; no jaundice. CHEST: Resp shallow/even. Diminished CARDIAC: RRR ABDOMEN: Soft, nondistended, nontender; no hepatosplenomegaly; bowel sounds are present in all four quadrants. EXTREMITIES: Right BKA SKIN: Normal; no rash; no jaundice. MAINSPRING WINDER: No focal deficits; somnolent. Assessment and Plan Plan ASSESSMENT: - Iron Deficiency Anemia with Hemoccult positive stool. s/p colonoscopy 08/05/16- -----> poor prep, internal hemorrhoids, recommendation to repeat in 3 days. NG tube was placed for admin of bowel prep and was still poor prep. Pt hospitalized with AMS, acute on chronic kidney injury, multiple electrolytes, and his chronic medical problems. He is not having any obvious active bleeding. He is anemic, but this has remained stable and is normocytic. It is unclear if he has any hx of GI bleeding or if he has ever had an EGD/ Colonoscopy in the past. Pt now has Guardian. - AMS. Per primary - Acute on chronic renal failure with multiple electrolyte abnormalities. Per renal - CHF, CAD, HTN, DM, Hx CVA per primary. 08-07-16 dehydrated, I talked to primary team, attending does not think we should do colonoscopy (patient will not tolerate prep and would like to have PEG tube for feeding and send patient to longterm) PLAN: - PEG tube Monday - Obtain consents - NPO after MN monday - krishna still held - Cont. PPI - Cont. Iron Supplements - Monitor Javier Morrison MD Aug 07, 2016 16:16
[2016-08-07 20:00] VITALS: BP 152/92; PULSE 85; RESP 21; TEMP 96.9; O2SAT 96
[2016-08-07] MEDS: ATORVASTATIN 80 MG TAB PO SCH (21:00)
[2016-08-07] MEDS: MIRTAZAPINE 15 MG TAB PO SCH (21:00)
[2016-08-07] MEDS: ISOSORBIDE MONONITRATE 60 MG TAB PO SCH (21:00)
[2016-08-08 00:06] VITALS: BP 135/79; PULSE 82; RESP 19; TEMP 96.8; O2SAT 96
[2016-08-08] MEDS: SODIUM CHLOR 0.9% 1000 ML INJ 1,000 ML IV SCH ×2 (01:32→15:59)
[2016-08-08] MEDS ORDERED: SODIUM CHLORID 0.9% 500 ML IV PRN (03:00)
[2016-08-08] MEDS ORDERED: CHLORHEXIDINE GLUCONATE 2 % 1 PACK (2 CLOTHS) TOPICAL PRN (03:00)
[2016-08-08] MEDS ORDERED: LACTATED RINGER'S 1000 ML IV PRN (03:00)
[2016-08-08] MEDS ORDERED: POVIDONE IODINE 5% (ANTISEPSIS KIT) 4 APPLICATIONS EACH NARE PRN (03:00)
[2016-08-08 05:27] LABS: AUTOMATED NEUTROPHIL # 6.1 TH/MM3 (1.8-7.7); BASOPHIL % 0.5 % (0.0-2.0); EOSINOPHIL # 0.2 TH/MM3 (0-0.4); EOSINOPHIL % 2.6 % (0.0-4.0); HEMATOCRIT 25.4 % (39.0-51.0); HEMO FLAGS DIFF FINAL; LYMPH % 16.8 % (9.0-44.0); LYMPHOCYTE # 1.4 TH/MM3 (1.0-4.8); MEAN CELL VOLUME 82.7 FL (80.0-100.0); MEAN CORPUSCULAR HEMOGLOBIN 27.4 PG (27.0-34.0); MEAN CORPUSCULAR HGB CONC 33.1 % (32.0-36.0); MONO % 8.4 % (0.0-8.0); NEUT % 71.7 % (16.0-70.0); PLATELET COUNT 178 TH/MM3 (150-450); RED BLOOD COUNT 3.07 MIL/MM3 (4.50-5.90); RED CELL DISTRIBUTION WIDTH 16.6 % (11.6-17.2); WHITE BLOOD COUNT 8.5 TH/MM3 (4.0-11.0)
[2016-08-08 05:36] LABS: INTERNATIONAL NORMALIZED RATIO 1.1 RATIO; PROTHROMBIN TIME - PATIENT 12.7 SEC (9.8-11.6)
[2016-08-08 05:49] LABS: BICARBONATE 29.2 MEQ/L (21.0-32.0); POTASSIUM 3.8 MEQ/L (3.5-5.1)
[2016-08-08 08:00] VITALS: BP 135/78; PULSE 77; RESP 18; TEMP 96.4; O2SAT 98
[2016-08-08] MEDS: FERROUS SULFATE 325 MG (65 MG ELEMENTAL IRON) TAB PO SCH (09:13)
[2016-08-08] MEDS: CARVEDILOL 12.5 MG TAB PO SCH ×2 (09:13→20:40)
[2016-08-08] MEDS: PANTOPRAZOLE SOD 40 MG DELAYED RELEASE TAB PO SCH (09:14)
[2016-08-08] MEDS: CHOLECALCIFEROL (VIT D3) 1000 UNIT TAB PO SCH (09:14)
[2016-08-08] MEDS: SODIUM CHLORIDE 0.9% FLUSH 10 ML FLUSH IV FLUSH SCH ×2 (09:14→20:39)
[2016-08-08] MEDS: COLLAGENASE OINT 30 GM TUBE TOPICAL SCH (09:14)
[2016-08-08] MEDS ORDERED: ceFAZolin INJ 1,000 MG VIAL IV ONE (11:05)
[2016-08-08] MEDS ORDERED: PROPOFOL 200 MG/20 ML AMP IV ONE (11:13)
--- NOTE | 2016-08-08 11:30 | GIPROC ---
[facility] [address] [facility]. [facility], [address] EGD WITH PEG PROCEDURE REPORT EXAM DATE: 08/08/2016 PATIENT NAME: Bobby Amado MR#: [id number] BIRTHDATE: 1955 ATTENDING: Javier Victoria MD ORDER #: [id number] COMPUTER TERMINAL OPERATOR: Brijesh Santos and Yuliana Schroeder STATUS: inpatient INDICATIONS: The patient is a 61 yr old male here for an EGD with PEG due to poor nutrition, poor oral intake. PROCEDURE PERFORMED: EGD with PEG placement MEDICATIONS: None and Per Anesthesia. TOPICAL ANESTHETIC: none CONSENT: The patient understands the risks and benefits of the procedure and understands that these risks include, but are not limited to: sedation, allergic reaction, infection, perforation and/or bleeding. Alternative means of evaluation and treatment include, among others: physical exam, x-rays, and/or surgical intervention. The patient elects to proceed with this endoscopic procedure. medical equipment was checked for proper function. Hand hygiene and appropriate measures for infection prevention was taken. After the risks, benefits and alternatives of the procedure were thoroughly explained, Informed consent was verified, confirmed and timeout was successfully executed by the treatment team. The patient was anesthetized with topical anesthesia and the Pentax [id number] endoscope was introduced through the mouth and advanced to the second portion of the duodenum. The instrument was slowly withdrawn as the mucosa was fully examined. normal exam, PEG BS sice 20 fr tube was placed The stomach was then inflated with air, and by a combination of transillumination and manual palpation, the site for the gastrostomy tube placement was selected and marked on the anterior abdominal wall. The skin of the anterior abdomen was surgically prepped and draped with sterile towels. Utilizing strict sterile technique, the selected site was then anesthetized with 1% xylocaine by injection into the skin and subcutaneous tissue. A 1 cm incision was made through the skin and subcutaneous tissue, and the needle/cannula assembly was then passed through the abdominal wall and through the anterior wall of the stomach, maintaining visualization with the endoscope. A snare device previously placed through the instrument channel was then opened and placed around the cannula, the needle was removed, and the insertion wire was passed through the cannula and into the stomach lumen. The snare was then loosened from the cannula, and repositioned to snare the insertion wire. The snare was then pulled up to the endoscope distal tip, and the scope was then withdrawn bringing with it the snare and insertion wire. The insertion wire was then released from the snare, and then loop-attached to the gastrostomy tube. Using the "pull technique", the G-tube was then pulled into place by traction on the insertion wire at the abdominal wall end. The G-tube insertion site was then cleansed once again, and the external bolster was placed over the tube to secure it to the abdominal wall. A sterile dressing was then applied, and the procedure terminated. The gastroscope was then slowly withdrawn and removed. ADVERSE EVENT: There were no complications. IMPRESSIONS: normal exam PEG tube was placed RECOMMENDATIONS: NPO for 6 hours then may use PEG for feeding and meds REPEAT EXAM: as needed Javier Victoria MD eSigned: Javier Victoria MD 08/08/2016 11:29 AM cc: PATIENT NAME: Bobby Amado MR#: [id number]
--- NOTE | 2016-08-08 11:33 | HHI.GIFU ---
Subjective Remarks awake, confused no changes Objective Vitals I&O Vital Signs Date Time Temp Pulse Resp B/P Pulse Ox O2 Delivery O2 Flow Rate FiO2 08/08/16 08:00 96.4 77 18 135/78 98 08/08/16 00:06 96.8 82 19 135/79 96 08/07/16 20:00 96.9 85 21 152/92 96 08/07/16 16:00 95.8 94 16 97/63 95 08/07/16 12:00 95.3 83 17 99/71 95 I/O 08/07/16 08/07/16 08/07/16 08/08/16 08/08/16 08/08/16 07:00 15:00 23:00 07:00 15:00 23:00 Intake Total 0 ml 0 ml 730 ml 689 ml Output Total 0 ml 600 ml 300 ml 800 ml Balance 0 ml -600 ml 430 ml -111 ml Intake Oral 0 ml 0 ml 60 ml 30 ml IV Total 0 ml 670 ml 659 ml Output Urine Total 0 ml 600 ml 300 ml 800 ml # Bowel Movements 0 0 0 0 Laboratory Laboratory Tests Test 08/08/16 04:34 White Blood Count 8.5 Red Blood Count 3.07 Hemoglobin 8.4 Hematocrit 25.4 Mean Corpuscular Volume 82.7 Mean Corpuscular Hemoglobin 27.4 Mean Corpuscular Hemoglobin 33.1 Concent Red Cell Distribution Width 16.6 Platelet Count 178 Mean Platelet Volume 7.0 Neutrophils (%) (Auto) 71.7 Lymphocytes (%) (Auto) 16.8 Monocytes (%) (Auto) 8.4 Eosinophils (%) (Auto) 2.6 Basophils (%) (Auto) 0.5 Neutrophils # (Auto) 6.1 Lymphocytes # (Auto) 1.4 Monocytes # (Auto) 0.7 Eosinophils # (Auto) 0.2 Basophils # (Auto) 0.0 CBC Comment DIFF FINAL Differential Comment Prothrombin Time 12.7 Prothromb Time International 1.1 Ratio Sodium Level 146 Potassium Level 3.8 Chloride Level 108 Carbon Dioxide Level 29.2 Anion Gap 9 Blood Urea Nitrogen 18 Creatinine 1.98 Estimat Glomerular Filtration 35 Rate Random Glucose 81 Calcium Level 8.0 Date/Time Procedure Status Source Growth 08/04/16 10:00 Gram Stain - Final Complete Wound Buttock 08/04/16 10:00 Wound Culture - Final Complete Staphylococcus Aureus Pseudomonas Aeruginosa Physical Exam HEENT: Normocephalic; atraumatic; no jaundice. CHEST: Resp shallow/even. Diminished CARDIAC: RRR ABDOMEN: Soft, nondistended, nontender; no hepatosplenomegaly; bowel sounds are present in all four quadrants. EXTREMITIES: Right BKA SKIN: Normal; no rash; no jaundice. STRATEGIC CLIENT EXECUTIVE: No focal deficits; somnolent. Assessment and Plan Plan ASSESSMENT: - Iron Deficiency Anemia with Hemoccult positive stool. s/p colonoscopy 08/05/16- -----> poor prep, internal hemorrhoids, recommendation to repeat in 3 days. NG tube was placed for admin of bowel prep and was still poor prep. Pt hospitalized with AMS, acute on chronic kidney injury, multiple electrolytes, and his chronic medical problems. He is not having any obvious active bleeding. He is anemic, but this has remained stable and is normocytic. It is unclear if he has any hx of GI bleeding or if he has ever had an EGD/ Colonoscopy in the past. Pt now has Guardian. - AMS. Per primary - Acute on chronic renal failure with multiple electrolyte abnormalities. Per renal - CHF, CAD, HTN, DM, Hx CVA per primary. 08-07-16 dehydrated, I talked to primary team, attending does not think we should do colonoscopy (patient will not tolerate prep and would like to have PEG tube for feeding and send patient to [place]) 08-08-16 about same EGD with PEG tube done, doing well PLAN: - NPO for 6 hours then may start using PEG - eliquis still held till tomorrow - Cont. PPI - Cont. Iron Supplements - Monitor HH Javier Victoria MD Aug 08, 2016 11:33
--- NOTE | 2016-08-08 11:59 | HHI.FPPN ---
Subjective Remarks Mr Amado is status post his PEG tube today and resting comfortably in bed. He is never conversational as far as putting a sentence together but does say yes or no and nod on occasion. His procedure was necessary because he could not take in enough fluid to keep himself hydrated and was admitted for that reason plus he was refusing food and medicines in general and his nurses had a very hard time getting him to take anything po. He did not have a colonoscopy because he could not drink the prep and even with an NG tube the prep was very difficult for him. He also is not a candidate for surgery or cancer treatments even if a cancer was found. He is bedridden and frail and could not tolerate any chemotherapy, etc. even if he did have colon cancer. Objective Vitals Vital Signs Date Time Temp Pulse Resp B/P Pulse Ox O2 Delivery O2 Flow Rate FiO2 08/08/16 11:35 71 16 110/71 98 08/08/16 11:25 97.6 70 16 96/67 100 08/08/16 08:00 96.4 77 18 135/78 98 08/08/16 00:06 96.8 82 19 135/79 96 08/07/16 20:00 96.9 85 21 152/92 96 08/07/16 16:00 95.8 94 16 97/63 95 08/07/16 12:00 95.3 83 17 99/71 95 I/O 08/07/16 08/07/16 08/07/16 08/08/16 08/08/16 08/08/16 07:00 15:00 23:00 07:00 15:00 23:00 Intake Total 0 ml 0 ml 730 ml 689 ml 200 ml Output Total 0 ml 600 ml 300 ml 800 ml Balance 0 ml -600 ml 430 ml -111 ml 200 ml Intake Oral 0 ml 0 ml 60 ml 30 ml IV Total 0 ml 670 ml 659 ml Other 200 ml Output Urine Total 0 ml 600 ml 300 ml 800 ml # Bowel Movements 0 0 0 0 Result Diagram: 08/08/1643308/08/16433 Objective Remarks GEN: Thin, frail 61 y/o M in no acute distress. Laying in bed after PEG tube placement. SKIN: Stage 3 decubitus sacral ulcer with small amount adherent fibrinous material. Good granulation tissue underneath. No active drainage. Dry mucous membrane. CV: Regular rate and rhythm without obvious murmurs. LUNGS: Clear to anterior auscultation bilaterally. No wheezes, rales, rhonchi. GI: PEG tube EXT: No cyanosis or edema. No signs of tenderness to calf manipulation. NEURO/PSYCH: Arousable, answers questions with mainly yes or no. Minimal engagement in conversation. A/P Assessment and Plan 61 yo M, hx of prolonged hospital stay from September 2015 - July 18, 2016, having returned to the hospital on July 22 for fall. Admitted for AMS, rhabdomyolysis , dehydration, hypernatremia and anemia. Discharge Planning Discharge pending clinical improvement and placement. received PEG given poor oral intake. Will be sure he tolerates PEG tube feeds and nutrition and then should be ready for SNF placement Problem List: (1) Encounter for dietary counseling and surveillance Status: Acute Plan: Patient with inadequate/poor oral intake of fluids and solids since admission. Speech recommended full liquid diet with thickened liquids of nectar consistency. However patient has been refusing to eat. I/O 220/1300. Discussed case with Dr. Calderon. Patient needed PEG tube given insufficient oral intake and nutrition. -GI on board: * PEG tube placed will start slow feeding after 6 hours with 20 cc of jevity per hour. can consult Nutrition, appreciate their help. will also give free water flushes. can calculate final maintenance once his tube feed totals are known Dietary consulted, appreciate recommendations Patient currently nothing by mouth in anticipation of possible GI procedure. Resumed IV fluids, can heplock once PEG tube feeding starts (2) Anemia Status: Chronic Plan: Hx of anemia. Baseline Hg 9-10; likly ACD. Downtrending but now stable. Team will transfuse with hemoglobin is <7. -Continue PO Fe supplementation -FOBT positive GI consulted: appreciate recommendations Continue PPI, iron EGD/colonoscopy performed on 08/05 revealed internal hemorrhoids, small internal hemorrhoids, external hemorrhoids. However limited due to poor bowel prep Discussed case with Dr. Calderon. Initially plan was to repeat colonoscopy on 08/08; however patient has been unable to tolerate colon prep even with NGT. No urgency to repeat colonoscopy during this hospitalization. Given poor po intake, will plan for PEG tube placement on 08/08 per GI. Will defer repeat colonoscopy once patient is more clinically stable. Hematology Consulted: * Please see plan as above (3) Xecei-nm-dvihdfc kidney injury Status: Acute Plan: Baseline GFR 50s. Associated rhabdomyolysis likely contributing which has now resolved. No hyperkalemia. -Avoid nephrotoxic meds -Closely monitor I&O -Renal US: unremarkable Consult nephrology: appreciate recommendations * Monoclonal protein detected on serum RUDY * [place]/lambda ratio elevated. * Started cholecalciferol Hematology consulted: appreciate recommendations. * 1 Unit PRBC for anemia on 08/02, posttransfusion H/H 8.09/22 * Procrit 20K x1 * Likely monoclonal gammopathy of undetermined significance (MGUS) * Recheck immune globulins once acute issues have resolved * Likely anemia of chronic disease * Skeletal survey: Unremarkable study with median sternotomy and multiple gallstones noted. (4) Altered mental status Status: Resolved Plan: Found to hypernatremic on admission as well as acute on chronic PAT. Electrolyte abnormality and azotemia likely contributed to presentation. Baseline mental status is unclear but pt does appear to have had multiple ischemic strokes in the past including lacunar infarcts 10/20/15. Pt now appears to be at baseline. -Hypernatremia from initial dehydration resolved from a high of 160 -Negative UA and tox screen. -Ammonia, lactic acid WNL -Consider Seroquel it patient becomes agitated. Currently not needed -Speech therapy following, appreciate recs Imaging: * CXR: unremarkable * Head CT negative for acute process. Consistent with chronic change. (5) Unstageable decubitus ulcer Status: Acute Plan: Patient with large decubitus ulcer over lower back. Nursing staff has been changing wound dressings daily. -Wound care consulted, appreciate recommendations -Collagenase ointment to be applied daily his nutrition is poor as he has refused food many times so his healing has been impaired (6) Chronic systolic (congestive) heart failure Status: Chronic Plan: Patient with hx of CHF, EF 35% from September 2015. Not currently appearing to be fluid overloaded. -Closely monitor I&O's (7) Coronary artery disease Status: Chronic Plan: Continue Coreg 12.5 mg po bid Continue Eliquis Continue Atorvastatin 80 mg po hs Continue Isosorbide Mononitrate 60 mg po hs (8) HTN (hypertension) Status: Chronic Plan: Continue Amlodipine 10 mg po daily -Hold for SBP <110 (9) Diabetes mellitus Status: Chronic Plan: A1C 6.9 on 11/25/15, not currently on DM meds Normal serum glucose levels -Monitor BMP, he may need diabetic formula. will try low amount of jevity for now (10) Nutrition, metabolism, and development symptoms Status: Acute Plan: Fluids: Resume IVFs until he is getting PEG tube feeds Electrolytes: Within normal limits, continue to monitor DVT PPX: Eliquis GI PPX: Protonix Problem Qualifiers (1) Anemia: Qualified Code: D50.8 - Other iron deficiency anemia (2) Altered mental status: Qualified Code: R41.82 - Altered mental status, unspecified altered mental status type (3) Coronary artery disease: Qualified Code: I25.10 - Coronary artery disease involving [place] heart without angina pectoris, unspecified vessel or lesion type (4) HTN (hypertension): Qualified Code: I10 - Essential hypertension (5) Diabetes mellitus: Qualified Code: E11.51 - Type 2 diabetes mellitus with diabetic peripheral angiopathy without gangrene, without long-term current use of insulin Mackenzie Cash MD Aug 08, 2016 11:59
[2016-08-08 12:00] VITALS: BP 108/76; PULSE 72; RESP 17; TEMP 96.1; O2SAT 94
[2016-08-08] MEDS ORDERED: DO NOT ADM ANY ANTICOAGULANT DRUGS PRN (12:15)
[2016-08-08 16:00] VITALS: BP 140/81; PULSE 77; RESP 19; TEMP 97.9; O2SAT 97
[2016-08-08 18:06] VITALS: O2SAT 97
[2016-08-08 20:00] VITALS: BP 154/90; PULSE 91; RESP 20; TEMP 98.7; O2SAT 95
[2016-08-08] MEDS: ISOSORBIDE MONONITRATE 60 MG TAB PO SCH (20:39)
[2016-08-08] MEDS: MIRTAZAPINE 15 MG TAB PO SCH (20:39)
[2016-08-08] MEDS: ATORVASTATIN 80 MG TAB PO SCH (20:40)
[2016-08-09] VITALS: BP 107/68; PULSE 78; RESP 20; TEMP 97.4; O2SAT 96
[2016-08-09 04:00] VITALS: BP 113/74; PULSE 80; RESP 18; TEMP 97.1; O2SAT 96
[2016-08-09] MEDS: SODIUM CHLOR 0.9% 1000 ML INJ 1,000 ML IV SCH ×2 (05:36→18:41)
[2016-08-09 05:40] LABS: AUTOMATED NEUTROPHIL # 8.2 TH/MM3 (1.8-7.7); BASOPHIL % 0.4 % (0.0-2.0); EOSINOPHIL # 0.2 TH/MM3 (0-0.4); HEMO FLAGS DIFF FINAL; LYMPH % 11.1 % (9.0-44.0); LYMPHOCYTE # 1.1 TH/MM3 (1.0-4.8); MEAN CELL VOLUME 82.2 FL (80.0-100.0); MEAN CORPUSCULAR HEMOGLOBIN 27.8 PG (27.0-34.0); MEAN CORPUSCULAR HGB CONC 33.8 % (32.0-36.0); MONO % 6.2 % (0.0-8.0); NEUT % 80.3 % (16.0-70.0); PLATELET COUNT 184 TH/MM3 (150-450); RED BLOOD COUNT 3.05 MIL/MM3 (4.50-5.90); RED CELL DISTRIBUTION WIDTH 16.7 % (11.6-17.2); WHITE BLOOD COUNT 10.2 TH/MM3 (4.0-11.0)
[2016-08-09 06:06] LABS: BICARBONATE 27.3 MEQ/L (21.0-32.0); POTASSIUM 3.8 MEQ/L (3.5-5.1)
[2016-08-09 08:00] VITALS: BP 138/85; PULSE 83; RESP 16; TEMP 97.7; O2SAT 97
[2016-08-09] MEDS: PANTOPRAZOLE SOD 40 MG DELAYED RELEASE TAB PO SCH (08:58)
[2016-08-09] MEDS: CHOLECALCIFEROL (VIT D3) 1000 UNIT TAB PO SCH (08:59)
[2016-08-09] MEDS: CARVEDILOL 12.5 MG TAB PO SCH ×2 (08:59→20:34)
[2016-08-09] MEDS: SODIUM CHLORIDE 0.9% FLUSH 10 ML FLUSH IV FLUSH SCH ×2 (08:59→20:35)
[2016-08-09] MEDS: FERROUS SULFATE 325 MG (65 MG ELEMENTAL IRON) TAB PO SCH (08:59)
[2016-08-09] MEDS ORDERED: EPOETIN ALFA 20,000 UNITS/ML VIAL SQ ONE (09:00)
[2016-08-09] MEDS: COLLAGENASE OINT 30 GM TUBE TOPICAL SCH (09:02)
--- NOTE | 2016-08-09 10:19 | HHI.FPPN ---
Subjective Remarks Patient seen and evaluated this morning by medical team. No acute events overnight with vital signs stable. Patient had a PEG tube placed yesterday and is currently tolerating tube feeds well. He is more interactive with interview today and states that he is not in pain. When asked if the medical team to do anything to make him more comfortable he responded with nothing. He did not participate in the for review of systems but did deny any fevers, pain, shortness of breath, and chest pain. (Nate Avalos MD R1) Objective Vitals Vital Signs Date Time Temp Pulse Resp B/P Pulse Ox O2 Delivery O2 Flow Rate FiO2 08/09/16 08:00 97.7 83 16 138/85 97 08/09/16 04:00 97.1 80 18 113/74 96 08/09/16 00:00 97.4 78 20 107/68 96 08/08/16 20:00 98.7 91 20 154/90 95 08/08/16 18:06 97 21 08/08/16 16:00 97.9 77 19 140/81 97 08/08/16 12:00 96.1 72 17 108/76 94 08/08/16 11:35 71 16 110/71 98 08/08/16 11:25 97.6 70 16 96/67 100 I/O 08/08/16 08/08/16 08/08/16 08/09/16 08/09/16 08/09/16 07:00 15:00 23:00 07:00 15:00 23:00 Intake Total 689 ml 200 ml 0 ml 0 ml 400 ml Output Total 800 ml 300 ml 450 ml 300 ml Balance -111 ml -100 ml -450 ml -300 ml 400 ml Intake Oral 30 ml 0 ml 0 ml 0 ml IV Total 659 ml Tube Irrigant 400 ml Other 200 ml Output Urine Total 800 ml 300 ml 450 ml 300 ml # Voids 1 # Bowel Movements 0 0 0 0 (Nate Avalos MD R1) Result Diagram: 08/09/1651008/09/16510 Objective Remarks GEN: Thin, frail 61 y/o M in no acute distress. Laying in bed after PEG tube placement with tube feeds running. SKIN: Stage 3 decubitus sacral ulcer with small amount adherent fibrinous material. Good granulation tissue underneath. No active drainage. Dry mucous membrane. CV: Regular rate and rhythm without obvious murmurs. LUNGS: Clear to anterior auscultation bilaterally. No wheezes, rales, rhonchi. GI: PEG tube, CDI. Unable to complete full abdominal exam due to abdominal binder. Positive bowel sounds. Patient not tender to palpation. EXT: No cyanosis or edema. No signs of tenderness to calf manipulation. NEURO/PSYCH: Arousable, answers questions with mainly yes or no. Some short sentences today. Minimal engagement in conversation. (Nate Avalos MD R1) A/P Assessment and Plan 61 yo M, hx of prolonged hospital stay from September 2015 - July 18, 2016, having returned to the hospital on July 22 for fall. Admitted for AMS, rhabdomyolysis , dehydration, hypernatremia and anemia. Discharge Planning Discharge pending patient tolerating tube feeds and acceptance by half-way facility for continued care. DW: Dr. Cash (Nate Avalos MD R1) Attending Attestation Patient seen and examined. Case reviewed and discussed with the resident team. Agree with plan of care as discussed with me and documented in the resident note. (Mackenzie Cash MD) Problem List: (1) Encounter for dietary counseling and surveillance Status: Acute Plan: Patient with inadequate/poor oral intake of fluids and solids since admission. Speech recommended full liquid diet with thickened liquids of nectar consistency. However patient has been refusing to eat. I/O 220/1300. Discussed case with Dr. Calderon. Patient needed PEG tube given insufficient oral intake and nutrition. -GI on board: * PEG tube placed will started wit slow feeding after 6 hours with 20 cc of jevity per hour. Dietary consulted, appreciate recommendations * Patient w/history of DM and CKD III-IV; therefore, Rec tube feeding w/Suplena , start @ 30ml/hr, increase 10ml Q4hr, as tolerated to goal rate 60ml/hr PLUS Beneprotein packet 3 times a day. Mix 1-pkt Beneprotein w/2-4oz water, stir until dissolved and administer by syringe through PEG tube. Suplena @ goal rate and Beneprotein tid to offer 2667 kcal, 82.8g Protein and 1063ml free water. * Free Water Flushes per MD, as ordered. Rec Cesar packet bid for wound healing(mix 1-packet Cesar w/8-10oz water, until dissolved, and administer by syringe through PEG tube). Labs reviewed-monitor renal labs closely. Additional Recs to follow r/t clinical course. Patient currently nothing by mouth in anticipation of possible GI procedure. Resumed IV fluids, can heplock once PEG tube feeding starts (2) Anemia Status: Chronic Plan: Hx of anemia. Baseline Hg 9-10; likly ACD. Downtrending but now stable. Team will transfuse with hemoglobin is <7. -Continue PO Fe supplementation -FOBT positive GI consulted: appreciate recommendations Continue PPI, iron EGD/colonoscopy performed on 08/05 revealed internal hemorrhoids, small internal hemorrhoids, external hemorrhoids. However limited due to poor bowel prep Discussed case with Dr. Calderon. Initially plan was to repeat colonoscopy on 08/08; however patient has been unable to tolerate colon prep even with NGT. No urgency to repeat colonoscopy during this hospitalization. Given poor po intake, PEG tube placement on 08/08. Will defer repeat colonoscopy once patient is more clinically stable. Hematology Consulted: * Please see plan as below (3) Odhmi-gv-dmptqhk kidney injury Status: Acute Plan: Baseline GFR 50s. Associated rhabdomyolysis likely contributing which has now resolved. No hyperkalemia. -Avoid nephrotoxic meds -Closely monitor I&O -Renal US: unremarkable Consult nephrology: appreciate recommendations * Monoclonal protein detected on serum RUDY * [place]/lambda ratio elevated. * Started cholecalciferol Hematology consulted: appreciate recommendations. * 1 Unit PRBC for anemia on 08/02, posttransfusion H/H 8.525 * Procrit 20K x1 given on 08/09 (1 unit given on 08/02) * Likely monoclonal gammopathy of undetermined significance (MGUS) * Recheck immune globulins once acute issues have resolved * Likely anemia of chronic disease * Skeletal survey: Unremarkable study with median sternotomy and multiple gallstones noted. (4) Altered mental status Status: Resolved Plan: Found to hypernatremic on admission as well as acute on chronic PAT. Electrolyte abnormality and azotemia likely contributed to presentation. Baseline mental status is unclear but pt does appear to have had multiple ischemic strokes in the past including lacunar infarcts 10/20/15. Pt now appears to be at baseline. -Hypernatremia from initial dehydration resolved from a high of 160 -Negative UA and tox screen. -Ammonia, lactic acid WNL -Consider Seroquel it patient becomes agitated. Currently not needed -Speech therapy following, appreciate recs Imaging: * CXR: unremarkable * Head CT negative for acute process. Consistent with chronic change. (5) Unstageable decubitus ulcer Status: Acute Plan: Patient with large decubitus ulcer over lower back. Nursing staff has been changing wound dressings daily. -Wound care consulted, appreciate recommendations -Collagenase ointment to be applied daily his nutrition is poor as he has refused food many times so his healing has been impaired (6) Chronic systolic (congestive) heart failure Status: Chronic Plan: Patient with hx of CHF, EF 35% from September 2015. Not currently appearing to be fluid overloaded. -Closely monitor I&O's (7) Coronary artery disease Status: Chronic Plan: Continue Coreg 12.5 mg po bid Continue Eliquis Continue Atorvastatin 80 mg po hs Continue Isosorbide Mononitrate 60 mg po hs (8) HTN (hypertension) Status: Chronic Plan: Continue Amlodipine 10 mg po daily -Hold for SBP <110 (9) Diabetes mellitus Status: Chronic Plan: A1C 6.9 on 11/25/15, not currently on DM meds Normal serum glucose levels -Monitor BMP, he may need diabetic formula. will try low amount of jevity for now (10) Nutrition, metabolism, and development symptoms Status: Acute Plan: Fluids/Diet: Continue PEG tube feeds as tolerated Electrolytes: Within normal limits, continue to monitor DVT PPX: Eliquis restart today GI PPX: Protonix (Nate Avalos MD R1) Problem Qualifiers (1) Anemia: Qualified Code: D50.8 - Other iron deficiency anemia (2) Altered mental status: Qualified Code: R41.82 - Altered mental status, unspecified altered mental status type (3) Coronary artery disease: Qualified Code: I25.10 - Coronary artery disease involving [place] heart without angina pectoris, unspecified vessel or lesion type (4) HTN (hypertension): Qualified Code: I10 - Essential hypertension (5) Diabetes mellitus: Qualified Code: E11.51 - Type 2 diabetes mellitus with diabetic peripheral angiopathy without gangrene, without long-term current use of insulin Nate Avalos MD R1 Aug 09, 2016 10:19 Mackenzie Cash MD Aug 13, 2016 13:26
--- NOTE | 2016-08-09 11:47 | PD.ONC.PN ---
Subjective Subjective Remarks Afebrile overnight. Patient resting comfortably without complaint. Objective Data Date Time Temp Pulse Resp B/P Pulse Ox O2 Delivery O2 Flow Rate FiO2 08/09/16 08:00 97.7 83 16 138/85 97 08/09/16 04:00 97.1 80 18 113/74 96 08/09/16 00:00 97.4 78 20 107/68 96 08/08/16 20:00 98.7 91 20 154/90 95 08/08/16 18:06 97 21 08/08/16 16:00 97.9 77 19 140/81 97 08/08/16 12:00 96.1 72 17 108/76 94 08/09/16 08/09/16 08/09/16 07:00 15:00 23:00 Intake Total 0 ml 400 ml Output Total 300 ml Balance -300 ml 400 ml Result Diagram: 08/09/1651008/09/16510 Laboratory Results Laboratory Tests Test 08/09/16 05:11 White Blood Count 10.2 TH/MM3 Red Blood Count 3.05 MIL/MM3 Hemoglobin 8.5 GM/DL Hematocrit 25.0 % Mean Corpuscular Volume 82.2 FL Mean Corpuscular Hemoglobin 27.8 PG Mean Corpuscular Hemoglobin 33.8 % Concent Red Cell Distribution Width 16.7 % Platelet Count 184 TH/MM3 Mean Platelet Volume 6.7 FL Neutrophils (%) (Auto) 80.3 % Lymphocytes (%) (Auto) 11.1 % Monocytes (%) (Auto) 6.2 % Eosinophils (%) (Auto) 2.0 % Basophils (%) (Auto) 0.4 % Neutrophils # (Auto) 8.2 TH/MM3 Lymphocytes # (Auto) 1.1 TH/MM3 Monocytes # (Auto) 0.6 TH/MM3 Eosinophils # (Auto) 0.2 TH/MM3 Basophils # (Auto) 0.0 TH/MM3 CBC Comment DIFF FINAL Differential Comment Sodium Level 143 MEQ/L Potassium Level 3.8 MEQ/L Chloride Level 108 MEQ/L Carbon Dioxide Level 27.3 MEQ/L Anion Gap 8 MEQ/L Blood Urea Nitrogen 18 MG/DL Creatinine 1.75 MG/DL Estimat Glomerular Filtration 40 ML/MIN Rate Random Glucose 74 MG/DL Calcium Level 7.9 MG/DL Administered Medications Medications (Trade) Dose Ordered Sig/Estuardo Route PRN Reason Start Time Stop Time Status Last Admin Dose Admin Apixaban (Eliquis) 2.5 mg BID PO 07/25/16 21:00 Hold 08/03/16 09:11 Atorvastatin Calcium (Lipitor) 80 mg HS PO 07/25/16 21:00 08/08/16 20:40 Carvedilol (Coreg) 25 mg BID PO 07/25/16 21:00 08/09/16 08:59 Ferrous Sulfate (Ferrous Sulfate) 325 mg DAILY@08 PO 07/26/16 08:00 08/09/16 08:59 Isosorbide Mononitrate (Imdur) 60 mg HS PO 07/25/16 21:00 08/08/16 20:39 Sodium Chloride (NS Flush) 2 ml BID IV FLUSH 07/25/16 21:00 08/08/16 20:39 Amlodipine Besylate (Norvasc) 10 mg DAILY PO 07/28/16 09:00 08/09/16 08:58 Cholecalciferol (Vitamin D3) 2,000 units DAILY PO 07/28/16 09:00 08/09/16 08:59 Pantoprazole Sodium (Protonix) 40 mg DAILY PO 07/31/16 12:00 08/09/16 08:58 Mirtazapine (Remeron) 15 mg HS PO 08/03/16 21:00 08/08/16 20:39 Collagenase 1 applic 1 applic DAILY TOPICAL 08/04/16 14:30 08/09/16 09:02 Sodium Chloride (NS 1000 ml Inj) 1,000 ml @ 75 mls/hr [id number] IV 08/07/16 12:45 08/09/16 05:36 Objective Remarks GENERAL: Elderly male, lying in bed in nad. SKIN: Warm and dry. HEAD: Normocephalic. EYES: No injection or drainage. NECK: Supple, trachea midline. CARDIOVASCULAR: Regular rate and rhythm RESPIRATORY: Breath sounds equal bilaterally. No accessory muscle use. GASTROINTESTINAL: Abdomen soft, non-tender, nondistended. EXTREMITIES: No cyanosis, or edema. s/p BKA, left leg. NEUROLOGICAL: awake. tracks with eyes, answers some questions Assessment/Plan Problem List: (1) Monoclonal gammopathy Status: Acute Plan: -- Consistent with monoclonal gammopathy of undetermined significance ( MGUS) -- M-spike is 0.26 -- Can recheck immune globulins once acute issues have resolved. --Urine RUDY no monoclonal protein. (2) Anemia Status: Chronic Plan: -- due anemia of chronic renal disease --08/02--> s/p Procrit 20K units + 1 unit pRBC on 08/02 --08/09-->procrit 20K units (3) Gpqul-ri-aeecqzr kidney injury Status: Acute Plan: -- Due to rhabdo -- Improving -- Nephrology following Assessment 61 y/o male who was brought in by [facility] after DCF found him at home unable to care for himself. Plan 1. give Procrit 20K units today 2. monitor CBC Attending Statement The exam, history, and the medical decision-making described in the above note were completed with the assistance of the mid-level provider. I reviewed and agree with the findings presented. I attest that I had a onqz-nd-ovan encounter with the patient on the same day, and personally performed and documented my assessment and findings in the medical record. No apparent bleeding. Hgb down to 8.5, will give another dose of Epogen today. Continue to monitor CBC. Problem Qualifiers (1) Anemia: Qualified Code: D50.8 - Other iron deficiency anemia Chrissy Cannon Aug 09, 2016 11:47 Andrzej De Los Santos MD Aug 09, 2016 17:34
[2016-08-09 12:00] VITALS: BP 108/67; PULSE 75; RESP 17; TEMP 97.7; O2SAT 98
[2016-08-09 16:00] VITALS: BP 117/70; PULSE 78; RESP 18; TEMP 96.9; O2SAT 98
--- NOTE | 2016-08-09 16:27 | HHI.GIFU ---
Subjective Remarks Pt asleep in bed. Nonverbal. per RN he ate a meal this morning and had a small bm that was soft. No blood. She says PEG tube functioning and he is tolerating TF. Objective Vitals I&O Vital Signs Date Time Temp Pulse Resp B/P Pulse Ox O2 Delivery O2 Flow Rate FiO2 08/09/16 12:00 97.7 75 17 108/67 98 08/09/16 08:00 97.7 83 16 138/85 97 08/09/16 04:00 97.1 80 18 113/74 96 08/09/16 00:00 97.4 78 20 107/68 96 08/08/16 20:00 98.7 91 20 154/90 95 08/08/16 18:06 97 21 I/O 08/08/16 08/08/16 08/08/16 08/09/16 08/09/16 08/09/16 07:00 15:00 23:00 07:00 15:00 23:00 Intake Total 689 ml 200 ml 0 ml 0 ml 1361 ml Output Total 800 ml 300 ml 450 ml 300 ml 325 ml Balance -111 ml -100 ml -450 ml -300 ml 1036 ml Intake Oral 30 ml 0 ml 0 ml 0 ml 250 ml IV Total 659 ml 615 ml Tube Feeding 96 ml Tube Irrigant 400 ml Other 200 ml Output Urine Total 800 ml 300 ml 450 ml 300 ml 325 ml # Voids 1 1 # Bowel Movements 0 0 0 0 1 Laboratory Laboratory Tests Test 08/09/16 05:11 White Blood Count 10.2 Red Blood Count 3.05 Hemoglobin 8.5 Hematocrit 25.0 Mean Corpuscular Volume 82.2 Mean Corpuscular Hemoglobin 27.8 Mean Corpuscular Hemoglobin 33.8 Concent Red Cell Distribution Width 16.7 Platelet Count 184 Mean Platelet Volume 6.7 Neutrophils (%) (Auto) 80.3 Lymphocytes (%) (Auto) 11.1 Monocytes (%) (Auto) 6.2 Eosinophils (%) (Auto) 2.0 Basophils (%) (Auto) 0.4 Neutrophils # (Auto) 8.2 Lymphocytes # (Auto) 1.1 Monocytes # (Auto) 0.6 Eosinophils # (Auto) 0.2 Basophils # (Auto) 0.0 CBC Comment DIFF FINAL Differential Comment Sodium Level 143 Potassium Level 3.8 Chloride Level 108 Carbon Dioxide Level 27.3 Anion Gap 8 Blood Urea Nitrogen 18 Creatinine 1.75 Estimat Glomerular Filtration 40 Rate Random Glucose 74 Calcium Level 7.9 Imaging Last Impressions Bone Osseous Survey 07/31/16 0000 Signed Impressions: Service Date/Time: Sunday, July 31, 2016 16:09 - CONCLUSION: Unremarkable bone survey. Incidental note made of median sternotomy. Multiple gallstones. Richard Gerber MD Head CT 07/25/16 1644 Signed Impressions: Service Date/Time: Monday, July 25, 2016 17:19 - CONCLUSION: 1. Lacunar infarcts bilaterally, worse on the left. 2. Negative for an acute process. Didier Clay MD FACR Renal Ultrasound 07/25/16 0000 Signed Impressions: Service Date/Time: Monday, July 25, 2016 20:55 - CONCLUSION: 1. Tiny nonobstructing calcified left renal calculi. 2. No hydronephrosis or solid renal mass. Efren Cleaning MD Chest X-Ray 07/25/16 0000 Signed Impressions: Service Date/Time: Monday, July 25, 2016 19:36 - CONCLUSION: No acute disease. Efren Cleaning MD Physical Exam HEENT: Normocephalic; atraumatic; no jaundice. CHEST: Resp shallow/even. Diminished CARDIAC: RRR ABDOMEN: Soft, nondistended, nontender; no hepatosplenomegaly; bowel sounds are present in all four quadrants. PEG site free of redness, drainage, or swelling. EXTREMITIES: Right BKA SKIN: Normal; no rash; no jaundice. [employer]: No focal deficits; somnolent. Assessment and Plan Plan ASSESSMENT: - Iron Deficiency Anemia with Hemoccult positive stool. s/p EGD with PEG placement, see below. s/p colonoscopy 08/05/16------> poor prep, internal hemorrhoids, recommendation to repeat in 3 days. NG tube was placed for admin of bowel prep and was still poor prep. Pt hospitalized with AMS, acute on chronic kidney injury, multiple electrolytes, and his chronic medical problems. He is not having any obvious active bleeding. He is anemic, but this has remained stable and is normocytic. It is unclear if he has any hx of GI bleeding or if he has ever had an EGD/Colonoscopy in the past. Pt now has Guardian. - AMS. Per primary - Acute on chronic renal failure with multiple electrolyte abnormalities. Per renal - CHF, CAD, HTN, DM, Hx CVA per primary. 08-07-16 dehydrated, I talked to primary team, attending does not think we should do colonoscopy (patient will not tolerate prep and would like to have PEG tube for feeding and send patient to [facility]) 08-08-16 about same EGD with PEG tube done, doing well PLAN: - continue TF per dietary - Cont. PPI - Cont. Iron Supplements - Monitor Bella Galvez Aug 09, 2016 16:27
[2016-08-09 19:52] VITALS: BP 112/62; PULSE 90; RESP 20; TEMP 98.7; O2SAT 96
[2016-08-09] MEDS: ATORVASTATIN 80 MG TAB PO SCH (20:34)
[2016-08-09] MEDS: ISOSORBIDE MONONITRATE 60 MG TAB PO SCH (20:34)
[2016-08-09] MEDS: MIRTAZAPINE 15 MG TAB PO SCH (20:35)
[2016-08-09] MEDS: APIXABAN 2.5 MG TABLET PO SCH (23:03)
[2016-08-10] VITALS: BP 116/74; PULSE 86; RESP 18; TEMP 97.1; O2SAT 95
[2016-08-10 08:00] VITALS: BP 118/72; PULSE 74; RESP 16; TEMP 96.7; O2SAT 94
[2016-08-10 08:32] LABS: HEMATOCRIT 23.8 % (39.0-51.0); MEAN CELL VOLUME 83.4 FL (80.0-100.0); MEAN CORPUSCULAR HEMOGLOBIN 28.3 PG (27.0-34.0); MEAN CORPUSCULAR HGB CONC 33.9 % (32.0-36.0); PLATELET COUNT 170 TH/MM3 (150-450); RED BLOOD COUNT 2.86 MIL/MM3 (4.50-5.90); RED CELL DISTRIBUTION WIDTH 16.8 % (11.6-17.2); REVIEW FLAG FINAL; WHITE BLOOD COUNT 8.8 TH/MM3 (4.0-11.0)
[2016-08-10 08:47] LABS: ANION GAP 7 MEQ/L (5-15); AST (GOT) 8 U/L (15-37); BICARBONATE 25.7 MEQ/L (21.0-32.0); BLOOD UREA NITROGEN 16 MG/DL (7-18); CHLORIDE 110 MEQ/L (98-107); GLOMERULAR FILTRATION RATE 47 ML/MIN (>89); MAGNESIUM 1.3 MG/DL (1.5-2.5); POTASSIUM 3.8 MEQ/L (3.5-5.1); SODIUM (NA) 143 MEQ/L (136-145)
[2016-08-10 08:50] LABS: ALKALINE PHOSPHATASE 91 U/L (45-117); ALT (GPT) 8 U/L (12-78); TOTAL BILIRUBIN ADULT 0.3 MG/DL (0.2-1.0)
[2016-08-10] MEDS: SODIUM CHLORIDE 0.9% FLUSH 10 ML FLUSH IV FLUSH SCH ×2 (09:00→22:06)
[2016-08-10] MEDS: CARVEDILOL 12.5 MG TAB PO SCH ×2 (10:07→22:05)
[2016-08-10] MEDS: APIXABAN 2.5 MG TABLET PO SCH ×2 (10:08→22:05)
[2016-08-10] MEDS: CHOLECALCIFEROL (VIT D3) 1000 UNIT TAB PO SCH (10:08)
[2016-08-10] MEDS: FERROUS SULFATE 325 MG (65 MG ELEMENTAL IRON) TAB PO SCH (10:08)
[2016-08-10] MEDS: PANTOPRAZOLE SOD 40 MG DELAYED RELEASE TAB PO SCH (10:08)
[2016-08-10] MEDS: SODIUM CHLOR 0.9% 1000 ML INJ 1,000 ML IV SCH (10:12)
[2016-08-10] MEDS: COLLAGENASE OINT 30 GM TUBE TOPICAL SCH (10:14)
[2016-08-10 12:00] VITALS: BP 132/75; PULSE 82; RESP 16; TEMP 97.6; O2SAT 98
--- NOTE | 2016-08-10 12:07 | HHI.FPPN ---
Subjective Remarks Patient seen and examined this morning by medical team. No acute events overnight with vital signs stable. Patient less interactive today and interview. However once offered apple juice, he was able to get himself up in the bed in order to drink. He does tell us that he is not in any pain, but otherwise he does not answer any other questioning or review of systems. (Nate Avalos MD R1) Objective Vitals Vital Signs Date Time Temp Pulse Resp B/P Pulse Ox O2 Delivery O2 Flow Rate FiO2 08/10/16 08:00 96.7 74 16 118/72 94 08/10/16 00:00 97.1 86 18 116/74 95 08/09/16 19:52 98.7 90 20 112/62 96 08/09/16 16:00 96.9 78 18 117/70 98 I/O 08/09/16 08/09/16 08/09/16 08/10/16 08/10/16 08/10/16 07:00 15:00 23:00 07:00 15:00 23:00 Intake Total 0 ml 1361 ml 60 ml 2511 ml Output Total 300 ml 325 ml 300 ml 500 ml Balance -300 ml 1036 ml -240 ml 2011 ml Intake Oral 0 ml 250 ml 60 ml 0 ml IV Total 615 ml 1681 ml Tube Feeding 96 ml 590 ml Tube Irrigant 400 ml 240 ml Output Urine Total 300 ml 325 ml 300 ml 500 ml # Voids 1 # Bowel Movements 0 1 1 0 (Nate Avalos MD R1) Result Diagram: 08/10/16 0744 08/10/16 0710 Objective Remarks GEN: Thin, frail 61 y/o M in no acute distress. Laying in bed with PEG tube in place with tube feeds running. SKIN: Stage 3 decubitus sacral ulcer with small amount adherent fibrinous material. Good granulation tissue underneath. No active drainage. Dry mucous membrane. Bandage CDI. Otherwise skin cool and dry. CV: Regular rate and rhythm without obvious murmurs. LUNGS: Clear to anterior auscultation bilaterally. No wheezes, rales, rhonchi. GI: PEG tube, CDI. Unable to complete full abdominal exam due to abdominal binder. Positive bowel sounds. Patient not tender to palpation. EXT: No cyanosis or edema. No signs of tenderness to calf manipulation. NEURO/PSYCH: Decreased interaction overall, only answering a few questions with yes/no. (Nate Avalos MD R1) A/P Assessment and Plan 61 yo M, hx of prolonged hospital stay from September 2015 - July 18, 2016, having returned to the hospital on July 22 for fall. Admitted for AMS, rhabdomyolysis , dehydration, hypernatremia and anemia. PEG tube has been placed due to decreased PO intake and dehydration. Discharge Planning Discharge pending patient tolerating tube feeds and acceptance by [facility] for continued care. DW: Dr. Cash and Dr. Naun Nation (Nate Avalos MD R1) Attending Attestation Patient seen and examined. Case reviewed and discussed with the resident team. Agree with plan of care as discussed with me and documented in the resident note. (Mackenzie Cash MD) Problem List: (1) Encounter for dietary counseling and surveillance Status: Acute Plan: Patient with inadequate/poor oral intake of fluids and solids since admission. Speech recommended full liquid diet with thickened liquids of nectar consistency. However patient has been refusing to eat. I/O 220/1300. Discussed case with Dr. Calderon. Patient needed PEG tube given insufficient oral intake and nutrition. -GI on board: * Continue TF per dietary * Cont. PPI * Cont. Iron supplements * Monitor H/H Dietary consulted, appreciate recommendations * Patient w/history of DM and CKD III-IV; therefore, Rec tube feeding w/Suplena , start @ 30ml/hr, increase 10ml Q4hr, as tolerated to goal rate 60ml/hr PLUS Beneprotein packet 3 times a day. Mix 1-pkt Beneprotein w/2-4oz water, stir until dissolved and administer by syringe through PEG tube. Suplena @ goal rate and Beneprotein tid to offer 2667 kcal, 82.8g Protein and 1063ml free water. * Free Water Flushes per MD, as ordered. Rec Cesar packet bid for wound healing(mix 1-packet Cesar w/8-10oz water, until dissolved, and administer by syringe through PEG tube). Labs reviewed-monitor renal labs closely. Additional Recs to follow r/t clinical course. (2) Anemia Status: Chronic Plan: Hx of anemia. Baseline Hg 9-10; likly ACD. Downtrending but now stable. Team will transfuse with hemoglobin is <7. -Continue PO Fe supplementation -FOBT positive GI consulted: appreciate recommendations Continue PPI, iron EGD/colonoscopy performed on 08/05 revealed internal hemorrhoids, small internal hemorrhoids, external hemorrhoids. However limited due to poor bowel prep Discussed case with Dr. Calderon. Initially plan was to repeat colonoscopy on 08/08; however patient has been unable to tolerate colon prep even with NGT. No urgency to repeat colonoscopy during this hospitalization. Given poor po intake, PEG tube placement on 08/08. Will defer repeat colonoscopy once patient is more clinically stable. Hematology Consulted: * Please see plan as below (3) Pkkfo-vf-[id number] kidney injury Status: Acute Plan: Baseline GFR 50s. Associated rhabdomyolysis likely contributing which has now resolved. No hyperkalemia. -Avoid nephrotoxic meds -Closely monitor I&O -Renal US: unremarkable Consult nephrology: appreciate recommendations * Monoclonal protein detected on serum RUDY * [place]/lambda ratio elevated. * Started cholecalciferol Hematology consulted: appreciate recommendations. * 1 Unit PRBC for anemia on 08/02, posttransfusion H/H 8.5 * Procrit 20K x1 given on 08/09 (1 unit given on 08/02) * Likely monoclonal gammopathy of undetermined significance (MGUS) * Recheck immune globulins once acute issues have resolved * Likely anemia of chronic disease * Skeletal survey: Unremarkable study with median sternotomy and multiple gallstones noted. (4) Altered mental status Status: Resolved Plan: Found to hypernatremic on admission as well as acute on chronic PAT. Electrolyte abnormality and azotemia likely contributed to presentation. Baseline mental status is unclear but pt does appear to have had multiple ischemic strokes in the past including lacunar infarcts 10/20/15. Pt now appears to be at baseline. -Hypernatremia from initial dehydration resolved from a high of 160 -Negative UA and tox screen. -Ammonia, lactic acid WNL -Consider Seroquel it patient becomes agitated. Currently not needed -Speech therapy following, appreciate recs Imaging: * CXR: unremarkable * Head CT negative for acute process. Consistent with chronic change. (5) Unstageable decubitus ulcer Status: Acute Plan: Patient with large decubitus ulcer over lower back. Nursing staff has been changing wound dressings daily. -Wound care consulted, appreciate recommendations -Collagenase ointment to be applied daily his nutrition is poor as he has refused food many times so his healing has been impaired (6) Chronic systolic (congestive) heart failure Status: Chronic Plan: Patient with hx of CHF, EF 35% from September 2015. Not currently appearing to be fluid overloaded. -Closely monitor I&O's (7) Coronary artery disease Status: Chronic Plan: Continue Coreg 12.5 mg po bid Continue Eliquis Continue Atorvastatin 80 mg po hs Continue Isosorbide Mononitrate 60 mg po hs (8) HTN (hypertension) Status: Chronic Plan: Continue Amlodipine 10 mg po daily -Hold for SBP <110 (9) Diabetes mellitus Status: Chronic Plan: A1C 6.9 on 11/25/15, not currently on DM meds Normal serum glucose levels -Monitor BMP, he may need diabetic formula. will try low amount of jevity for now (10) Nutrition, metabolism, and development symptoms Status: Acute Plan: Fluids/Diet: Continue PEG tube feeds as tolerated Electrolytes: Within normal limits, continue to monitor DVT PPX: Eliquis GI PPX: Protonix (Nate Avalos MD R1) Problem Qualifiers (1) Anemia: Qualified Code: D50.8 - Other iron deficiency anemia (2) Altered mental status: Qualified Code: R41.82 - Altered mental status, unspecified altered mental status type (3) Coronary artery disease: Qualified Code: I25.10 - Coronary artery disease involving [place] heart without angina pectoris, unspecified vessel or lesion type (4) HTN (hypertension): Qualified Code: I10 - Essential hypertension (5) Diabetes mellitus: Qualified Code: E11.51 - Type 2 diabetes mellitus with diabetic peripheral angiopathy without gangrene, without long-term current use of insulin Nate Avalos MD R1 Aug 10, 2016 12:06 Mackenzie Cash MD Aug 13, 2016 13:27
--- NOTE | 2016-08-10 12:12 | PD.ONC.PN ---
Subjective Subjective Remarks Afebrile overnight. Pt resting in bed in no distress. He states "yes" when asked if he is feeling OK. Objective Data Date Time Temp Pulse Resp B/P Pulse Ox O2 Delivery O2 Flow Rate FiO2 08/10/16 08:00 96.7 74 16 118/72 94 08/10/16 00:00 97.1 86 18 116/74 95 08/09/16 19:52 98.7 90 20 112/62 96 08/09/16 16:00 96.9 78 18 117/70 98 08/10/16 08/10/16 08/10/16 07:00 15:00 23:00 Intake Total 2511 ml Output Total 500 ml Balance 2010 ml Result Diagram: 08/10/16 0744 08/10/16 0710 Laboratory Results Laboratory Tests Test 08/10/16 08/10/16 07:10 07:44 Sodium Level 143 MEQ/L Potassium Level 3.8 MEQ/L Chloride Level 110 MEQ/L Carbon Dioxide Level 25.7 MEQ/L Anion Gap 7 MEQ/L Blood Urea Nitrogen 16 MG/DL Creatinine 1.52 MG/DL Estimat Glomerular Filtration 47 ML/MIN Rate Random Glucose 109 MG/DL Calcium Level 7.6 MG/DL Phosphorus Level 1.8 MG/DL Magnesium Level 1.3 MG/DL Total Bilirubin 0.3 MG/DL Aspartate Amino Transf 8 U/L (AST/SGOT) Alanine Aminotransferase 8 U/L (ALT/SGPT) Alkaline Phosphatase 91 U/L Total Protein 5.1 GM/DL Albumin 1.6 GM/DL White Blood Count 8.8 TH/MM3 Red Blood Count 2.86 MIL/MM3 Hemoglobin 8.1 GM/DL Hematocrit 23.8 % Mean Corpuscular Volume 83.4 FL Mean Corpuscular Hemoglobin 28.3 PG Mean Corpuscular Hemoglobin 33.9 % Concent Red Cell Distribution Width 16.8 % Platelet Count 170 TH/MM3 Mean Platelet Volume 6.8 FL Administered Medications Medications (Trade) Dose Ordered Sig/Estuardo Route PRN Reason Start Time Stop Time Status Last Admin Dose Admin Apixaban (Eliquis) 2.5 mg BID PO 07/25/16 21:00 08/10/16 10:08 Atorvastatin Calcium (Lipitor) 80 mg HS PO 07/25/16 21:00 08/09/16 20:34 Carvedilol (Coreg) 25 mg BID PO 07/25/16 21:00 08/10/16 10:07 Ferrous Sulfate (Ferrous Sulfate) 325 mg DAILY@08 PO 07/26/16 08:00 08/10/16 10:08 Isosorbide Mononitrate (Imdur) 60 mg HS PO 07/25/16 21:00 08/09/16 20:34 Sodium Chloride (NS Flush) 2 ml BID IV FLUSH 07/25/16 21:00 08/08/16 20:39 Amlodipine Besylate (Norvasc) 10 mg DAILY PO 07/28/16 09:00 08/10/16 10:07 Cholecalciferol (Vitamin D3) 2,000 units DAILY PO 07/28/16 09:00 08/10/16 10:08 Pantoprazole Sodium (Protonix) 40 mg DAILY PO 07/31/16 12:00 08/10/16 10:08 Mirtazapine (Remeron) 15 mg HS PO 08/03/16 21:00 08/09/16 20:35 Collagenase 1 applic 1 applic DAILY TOPICAL 08/04/16 14:30 08/10/16 10:14 Sodium Chloride (NS 1000 ml Inj) 1,000 ml @ 75 mls/hr [id number] IV 08/07/16 12:45 08/10/16 10:12 Objective Remarks GENERAL: Elderly male, lying in bed in no distress. SKIN: Warm and dry. HEAD: Normocephalic. EYES: No injection or drainage. NECK: Supple, trachea midline. CARDIOVASCULAR: Regular rate and rhythm RESPIRATORY: Breath sounds equal bilaterally. No accessory muscle use. GASTROINTESTINAL: Abdomen soft, non-tender, nondistended. EXTREMITIES: No cyanosis, or edema. s/p BKA, left leg. NEUROLOGICAL: Answers yes/no questions. Awake. Moving extremities. Assessment/Plan Problem List: (1) Monoclonal gammopathy Status: Acute Plan: -- Consistent with monoclonal gammopathy of undetermined significance ( MGUS) -- M-spike is 0.26 -- Can recheck immune globulins once acute issues have resolved. --Urine RUDY no monoclonal protein. (2) Anemia Status: Chronic Plan: -- due anemia of chronic renal disease --08/02--> s/p Procrit 20K units + 1 unit pRBC on 08/02 --08/09-->procrit 20K units (3) Qecso-mn-bgapooe kidney injury Status: Acute Plan: -- Due to rhabdo -- Improving -- Nephrology following Assessment 61 y/o male who was brought in by [facility] after DCF found him at home unable to care for himself. Plan 1. Received Procrit yesterday; will take approx 2 weeks to see difference. 2. Daily CBC 3. Transfuse as needed. 4. Supportive care. Attending Statement The exam, history, and the medical decision-making described in the above note were completed with the assistance of the mid-level provider. I reviewed and agree with the findings presented. I attest that I had a [id number] encounter with the patient on the same day, and personally performed and documented my assessment and findings in the medical record. No new c/o. No evidence of bleeding. Had Epogen yesterday. Monitor CBC periodically. Problem Qualifiers (1) Anemia: Qualified Code: D50.8 - Other iron deficiency anemia Varsha Rg Aug 10, 2016 12:12 Andrzej De Los Santos MD Aug 10, 2016 17:11
[2016-08-10 16:00] VITALS: BP 135/81; PULSE 83; RESP 18; TEMP 96.9; O2SAT 97
[2016-08-10 20:00] VITALS: BP 115/62; PULSE 83; RESP 18; TEMP 98.4; O2SAT 95
[2016-08-10] MEDS: ISOSORBIDE MONONITRATE 60 MG TAB PO SCH (22:04)
[2016-08-10] MEDS: MIRTAZAPINE 15 MG TAB PO SCH (22:05)
[2016-08-10] MEDS: FREE WATER G-TUBE SCH (22:05)
[2016-08-10] MEDS: ATORVASTATIN 80 MG TAB PO SCH (22:05)
[2016-08-11] VITALS: BP 116/69; PULSE 80; RESP 16; TEMP 96.6; O2SAT 95
[2016-08-11] MEDS: FREE WATER G-TUBE SCH ×7 (00:27→23:15)
[2016-08-11 04:22] LABS: HEMATOCRIT 23.8 % (39.0-51.0); MEAN CELL VOLUME 81.6 FL (80.0-100.0); MEAN CORPUSCULAR HGB CONC 34.3 % (32.0-36.0); PLATELET COUNT 192 TH/MM3 (150-450); RED BLOOD COUNT 2.91 MIL/MM3 (4.50-5.90); RED CELL DISTRIBUTION WIDTH 16.6 % (11.6-17.2); REVIEW FLAG FINAL; WHITE BLOOD COUNT 9.7 TH/MM3 (4.0-11.0)
[2016-08-11 06:00] LABS: BICARBONATE 29.2 MEQ/L (21.0-32.0); POTASSIUM 4.1 MEQ/L (3.5-5.1)
[2016-08-11 06:27] LABS: CALCIUM-PROTEIN CORRECTED 8.3 MG/DL (8.5-10.1)
[2016-08-11 08:00] VITALS: BP 113/66; PULSE 81; RESP 17; TEMP 97.8; O2SAT 92
[2016-08-11] MEDS: SODIUM CHLORIDE 0.9% FLUSH 10 ML FLUSH IV FLUSH SCH ×2 (09:00→22:55)
[2016-08-11] MEDS: CHOLECALCIFEROL (VIT D3) 1000 UNIT TAB PO SCH (09:38)
[2016-08-11] MEDS: CARVEDILOL 12.5 MG TAB PO SCH ×2 (09:39→22:54)
[2016-08-11] MEDS: PANTOPRAZOLE SOD 40 MG DELAYED RELEASE TAB PO SCH (09:39)
[2016-08-11] MEDS: APIXABAN 2.5 MG TABLET PO SCH ×2 (09:39→22:55)
[2016-08-11] MEDS: COLLAGENASE OINT 30 GM TUBE TOPICAL SCH (09:39)
[2016-08-11] MEDS: FERROUS SULFATE 325 MG (65 MG ELEMENTAL IRON) TAB PO SCH (09:39)
--- NOTE | 2016-08-11 11:39 | HHI.FPPN ---
Subjective Remarks Patient seen and examined. MAGED overnight. VSSAF. More responsive today, shakes his head "yes" or "no". Denies any specific complaints. (Bernice Vasquez MD R3) Objective Vitals Vital Signs Date Time Temp Pulse Resp B/P Pulse Ox O2 Delivery O2 Flow Rate FiO2 08/11/16 08:00 97.8 81 17 113/66 92 08/11/16 00:00 96.6 80 16 116/69 95 08/10/16 20:00 98.4 83 18 115/62 95 08/10/16 16:00 96.9 83 18 135/81 97 08/10/16 12:00 97.6 82 16 132/75 98 I/O 08/10/16 08/10/16 08/10/16 08/11/16 08/11/16 08/11/16 07:00 15:00 23:00 07:00 15:00 23:00 Intake Total 2511 ml 1348 ml 360 ml 1349 ml Output Total 500 ml 1350 ml 500 ml 600 ml Balance 2011 ml -2 ml -140 ml 749 ml Intake Oral 0 ml 365 ml 360 ml 120 ml IV Total 1681 ml 556 ml Tube Feeding 590 ml 427 ml 629 ml Tube Irrigant 240 ml 600 ml Output Urine Total 500 ml 1350 ml 500 ml 600 ml # Bowel Movements 0 0 0 (Bernice Vasquez MD R3) Result Diagram: 08/11/16 0335 08/11/16 0335 Imaging Bone Osseous Survey 07/31/16 0000 Signed Impressions: Service Date/Time: Sunday, July 31, 2016 16:09 - CONCLUSION: Unremarkable bone survey. Incidental note made of median sternotomy. Multiple gallstones. Richard Gerber MD Head CT 07/25/16 1644 Signed Impressions: Service Date/Time: Monday, July 25, 2016 17:19 - CONCLUSION: 1. Lacunar infarcts bilaterally, worse on the left. 2. Negative for an acute process. Didier Clay MD FACR Renal Ultrasound 07/25/16 0000 Signed Impressions: Service Date/Time: Monday, July 25, 2016 20:55 - CONCLUSION: 1. Tiny nonobstructing calcified left renal calculi. 2. No hydronephrosis or solid renal mass. Efren Cleaning MD Chest X-Ray 07/25/16 0000 Signed Impressions: Service Date/Time: Monday, July 25, 2016 19:36 - CONCLUSION: No acute disease. Efren Cleaning MD Objective Remarks GEN: Thin, frail 61 y/o M in no acute distress. Laying in bed with PEG tube in place with tube feeds running. SKIN: Stage 3 decubitus sacral ulcer with small amount adherent fibrinous material. Good granulation tissue underneath. No active drainage. Dry mucous membrane. Bandage CDI. Erythematous scaly patch on lateral aspect of left upper thigh. Skin is dry. PEG tube site c/d/i without surrounding erythema. CV: Regular rate and rhythm without obvious murmurs. LUNGS: Clear to anterior auscultation bilaterally. No wheezes, rales, rhonchi. GI: PEG tube, CDI. Unable to complete full abdominal exam due to abdominal binder. Positive bowel sounds. Patient not tender to palpation. EXT: No cyanosis or edema. No signs of tenderness to calf manipulation. NEURO/PSYCH: Decreased interaction overall, only answering a few questions with yes/no. (Bernice Vasquez MD R3) A/P Assessment and Plan 61 yo M, hx of prolonged hospital stay from September 2015 - July 18, 2016, having returned to the hospital on July 22 for fall. Admitted for AMS, rhabdomyolysis , dehydration, hypernatremia and anemia. PEG tube has been placed due to decreased PO intake and dehydration. Clinically improving and waiting for SNF placement. Discharge Planning Discharge pending SNF placement SDW: Dr. Cash and medicine team (Bernice Vasquez MD R3) Attending Attestation Patient seen and examined. Case reviewed and discussed with the resident team. Agree with plan of care as discussed with me and documented in the resident note. (Mackenzie Cash MD) Problem List: (1) Encounter for dietary counseling and surveillance Status: Acute Plan: Patient with inadequate/poor oral intake of fluids and solids since admission. Speech recommended full liquid diet with thickened liquids of nectar consistency. However patient has been refusing to eat. PEG tube placed on 08/08 given insufficient oral intake and nutrition. Tolerating TFs, up to 60ml/hr -GI on board: * Continue TF per dietary * Cont. PPI * Cont. Iron supplements * Monitor H/H Dietary consulted, appreciate recommendations * Patient w/history of DM and CKD III-IV; therefore, Rec tube feeding w/Suplena , start @ 30ml/hr, increase 10ml Q4hr, as tolerated to goal rate 60ml/hr PLUS Beneprotein packet 3 times a day. Mix 1-pkt Beneprotein w/2-4oz water, stir until dissolved and administer by syringe through PEG tube. Suplena @ goal rate and Beneprotein tid to offer 2667 kcal, 82.8g Protein and 1063ml free water. * Free Water Flushes per MD, as ordered. Rec Cesar packet bid for wound healing(mix 1-packet Cesar w/8-10oz water, until dissolved, and administer by syringe through PEG tube). Labs reviewed-monitor renal labs closely. Additional Recs to follow r/t clinical course. (2) Unstageable decubitus ulcer Status: Acute Plan: Patient with large decubitus ulcer over lower back; appears to be healing with good granulation tissue -Wound care consulted, appreciate recommendations * Collagenase ointment to be applied daily * Wound dressing changes daily per RN (3) Anemia Status: Chronic Plan: Hx of anemia. Baseline Hg 9-10; likly ACD. Hb currently at 8.2 but stable. Team will transfuse with hemoglobin is <7. -Continue PO Fe supplementation -FOBT positive GI consulted: appreciate recommendations Continue PPI, iron EGD/colonoscopy performed on 08/05 revealed internal hemorrhoids, small internal hemorrhoids, external hemorrhoids. However limited due to poor bowel prep Discussed case with Dr. Calderon. Initially plan was to repeat colonoscopy on 08/08; however patient has been unable to tolerate colon prep even with NGT. No urgency to repeat colonoscopy during this hospitalization. Given poor po intake, PEG tube placement on 08/08. Will defer repeat colonoscopy once patient is more clinically stable. Hematology Consulted: * Please see plan as below (4) [id number] kidney injury Status: Acute Plan: Baseline GFR 50s. Renal function improving. -Avoid nephrotoxic meds -Closely monitor I&O -Renal US: unremarkable Consult nephrology: appreciate recommendations * Monoclonal protein detected on serum RUDY * [place]/lambda ratio elevated. * Continue cholecalciferol Hematology consulted: appreciate recommendations. * 1 Unit PRBC for anemia on 08/02, posttransfusion H/H 8.5/25 * Procrit 20K x1 given on 08/09 (1 unit given on 08/02) * Likely monoclonal gammopathy of undetermined significance (MGUS) * Recheck immune globulins once acute issues have resolved * Likely anemia of chronic disease * Skeletal survey: Unremarkable study with median sternotomy and multiple gallstones noted. (5) Altered mental status Status: Resolved Plan: Found to hypernatremic on admission as well as acute on chronic PAT. Electrolyte abnormality and azotemia likely contributed to presentation. Baseline mental status is unclear but pt does appear to have had multiple ischemic strokes in the past including lacunar infarcts 10/20/15. Pt now appears to be at baseline. -Hypernatremia and azotemia from initial dehydration resolved from a high of 160 -Negative UA and tox screen. -Ammonia, lactic acid WNL -Consider Seroquel it patient becomes agitated. Currently not needed -Speech therapy following, appreciate recs Imaging: * CXR: unremarkable * Head CT negative for acute process. Consistent with chronic change. (6) Chronic systolic (congestive) heart failure Status: Chronic Plan: Patient with hx of CHF, EF 35% from September 2015. Not currently appearing to be fluid overloaded. -Closely monitor I&O's (7) Coronary artery disease Status: Chronic Plan: Continue Coreg 12.5 mg po bid Continue Eliquis Continue Atorvastatin 80 mg po hs Continue Isosorbide Mononitrate 60 mg po hs (8) HTN (hypertension) Status: Chronic Plan: Continue Amlodipine 10 mg po daily -Hold for SBP <110 (9) Diabetes mellitus Status: Chronic Plan: A1C 6.9 on 11/25/15, not currently on DM meds Normal serum glucose levels Continue to monitor (10) Nutrition, metabolism, and development symptoms Status: Acute Plan: Fluids/Diet: Continue PEG tube feeds as tolerated Electrolytes: Within normal limits, continue to monitor DVT PPX: Eliquis GI PPX: Protonix (Bernice Vasquez MD R3) Problem Qualifiers (1) Anemia: Qualified Code: D50.8 - Other iron deficiency anemia (2) Altered mental status: Qualified Code: R41.82 - Altered mental status, unspecified altered mental status type (3) Coronary artery disease: Qualified Code: I25.10 - Coronary artery disease involving [place] heart without angina pectoris, unspecified vessel or lesion type (4) HTN (hypertension): Qualified Code: I10 - Essential hypertension (5) Diabetes mellitus: Qualified Code: E11.51 - Type 2 diabetes mellitus with diabetic peripheral angiopathy without gangrene, without long-term current use of insulin Bernice Vasquez MD R3 Aug 11, 2016 11:39 Mackenzie Cash MD Aug 13, 2016 13:28
[2016-08-11 12:00] VITALS: BP 117/70; PULSE 88; RESP 18; TEMP 98.3; O2SAT 95
[2016-08-11 16:00] VITALS: BP 127/76; PULSE 92; RESP 16; TEMP 98.5; O2SAT 97
[2016-08-11 20:00] VITALS: BP 106/63; PULSE 93; RESP 18; TEMP 99.9; O2SAT 94
[2016-08-11] MEDS: ISOSORBIDE MONONITRATE 60 MG TAB PO SCH (22:54)
[2016-08-11] MEDS: ATORVASTATIN 80 MG TAB PO SCH (22:54)
[2016-08-11] MEDS: MIRTAZAPINE 15 MG TAB PO SCH (22:55)
[2016-08-12] VITALS: BP 112/61; PULSE 98; RESP 18; TEMP 100.1; O2SAT 95
[2016-08-12] MEDS: FREE WATER G-TUBE SCH ×5 (03:47→20:00)
[2016-08-12 04:25] LABS: HEMATOCRIT 24.1 % (39.0-51.0); MEAN CORPUSCULAR HEMOGLOBIN 27.4 PG (27.0-34.0); MEAN CORPUSCULAR HGB CONC 33.9 % (32.0-36.0); PLATELET COUNT 226 TH/MM3 (150-450); RED BLOOD COUNT 2.97 MIL/MM3 (4.50-5.90); RED CELL DISTRIBUTION WIDTH 16.5 % (11.6-17.2); REVIEW FLAG FINAL; WHITE BLOOD COUNT 12.5 TH/MM3 (4.0-11.0)
[2016-08-12 04:50] LABS: CALCIUM-PROTEIN CORRECTED 8.2 MG/DL (8.5-10.1)
[2016-08-12] MEDS ORDERED: CALCIUM CARBONATE 500 MG CHEWABLE TAB CHEW ONE (05:00)
[2016-08-12] MEDS ORDERED: ERGOCALCIFEROL (VIT D2) 50,000 UNIT CAP PO SCH (05:00)
[2016-08-12 08:00] VITALS: BP 128/72; PULSE 89; RESP 24; TEMP 98.3; O2SAT 95
[2016-08-12] MEDS: FERROUS SULFATE 325 MG (65 MG ELEMENTAL IRON) TAB PO SCH (09:37)
[2016-08-12] MEDS: SODIUM CHLORIDE 0.9% FLUSH 10 ML FLUSH IV FLUSH SCH ×2 (09:37→20:23)
[2016-08-12] MEDS: CALCIUM CARBONATE 500 MG CHEWABLE TAB CHEW SCH ×2 (09:37→20:23)
[2016-08-12] MEDS: PANTOPRAZOLE SOD 40 MG DELAYED RELEASE TAB PO SCH (09:38)
[2016-08-12] MEDS: CARVEDILOL 12.5 MG TAB PO SCH ×2 (09:38→20:22)
[2016-08-12] MEDS: APIXABAN 2.5 MG TABLET PO SCH ×2 (09:38→20:23)
[2016-08-12] MEDS: COLLAGENASE OINT 30 GM TUBE TOPICAL SCH (09:39)
[2016-08-12] MEDS: CHOLECALCIFEROL (VIT D3) 1000 UNIT TAB PO SCH (09:39)
[2016-08-12] MEDS ORDERED: COLL30T TOPICAL (11:42)
[2016-08-12] MEDS ORDERED: MIRTA15 PO (11:42)
[2016-08-12] MEDS ORDERED: PANT40TA3 PO (11:42)
[2016-08-12] MEDS ORDERED: FERR325T PO (11:42)
[2016-08-12] MEDS ORDERED: CARV12.5 PO (11:42)
[2016-08-12] MEDS ORDERED: APIX2.5T PO (11:42)
[2016-08-12] MEDS ORDERED: ATOR1TAB18 PO (11:42)
[2016-08-12] MEDS ORDERED: VITA100018 PO (11:42)
[2016-08-12] MEDS ORDERED: CALC500C16 CHEW (11:42)
[2016-08-12] MEDS ORDERED: AMLO10 PO (11:42)
[2016-08-12] MEDS ORDERED: DRIS50002 PO (11:42)
[2016-08-12] MEDS ORDERED: ISOS60TA PO (11:42)
--- NOTE | 2016-08-12 11:45 | HHI.DCPOC ---
Discharge Care Plan Diagnosis: (1) Hypertension (2) Unstageable decubitus ulcer (3) Encounter for dietary counseling and surveillance (4) Non-healing non-surgical wound (5) Seborrheic dermatitis (6) Delirium secondary to multiple medical problems (7) S/P BKA (below knee amputation) unilateral (8) HTN (hypertension) (9) Twveh-ui-hzzskqc kidney injury (10) Anemia (11) Diabetes mellitus Goals to Promote Your Health * To prevent worsening of your condition and complications * To maintain your health at the optimal level Directions to Meet Your Goals Take your medications as prescribed Follow your dietary instruction Follow activity as directed Keep your appointments as scheduled Take your immunizations and boosters as scheduled If your symptoms worsen call your PCP, if no PCP go to Urgent Care Center or Emergency Room Smoking is Dangerous to Your Health. Avoid second hand smoke Call the 24-hour hour crisis hotline for domestic abuse at Subha Nation MD R2 Aug 12, 2016 11:45
[2016-08-12 12:00] VITALS: BP 119/73; PULSE 83; RESP 24; TEMP 98.7; O2SAT 97
--- NOTE | 2016-08-12 13:43 | HHI.FPPN ---
Subjective Remarks Pt seen and examined this morning. No acute events overnight. AFVSS. Pt denies being in any pain this morning. He had a large bowel movement. His oral intake continues to improve. (Subha Nation MD R2) Objective Vitals Vital Signs Date Time Temp Pulse Resp B/P Pulse Ox O2 Delivery O2 Flow Rate FiO2 08/12/16 12:00 98.7 83 24 119/73 97 08/12/16 08:00 98.3 89 24 128/72 95 08/12/16 00:00 100.1 98 18 112/61 95 08/11/16 20:00 99.9 93 18 106/63 94 08/11/16 16:00 98.5 92 16 127/76 97 I/O 08/11/16 08/11/16 08/11/16 08/12/16 08/12/16 08/12/16 07:00 15:00 23:00 07:00 15:00 23:00 Intake Total 1349 ml 1035 ml 300 ml 120 ml Output Total 600 ml 500 ml 1550 ml 500 ml Balance 749 ml 535 ml -1250 ml -380 ml Intake Oral 120 ml 560 ml 300 ml 120 ml Tube Feeding 629 ml 475 ml Tube Irrigant 600 ml Output Urine Total 600 ml 500 ml 1550 ml 500 ml # Bowel Movements 0 0 0 1 (Subha Nation MD R2) Result Diagram: 08/12/1634008/12/16340 Objective Remarks GEN: Thin, frail 61 y/o M in no acute distress. Laying in bed with PEG tube in place with tube feeds running. SKIN: Stage 3 decubitus sacral ulcer with small amount adherent fibrinous material. Good granulation tissue underneath. No active drainage. Dry mucous membrane. Bandage CDI. Erythematous scaly patch on lateral aspect of left upper thigh. Skin is dry. PEG tube site c/d/i without surrounding erythema. CV: Regular rate and rhythm without obvious murmurs. LUNGS: Clear to anterior auscultation bilaterally. No wheezes, rales, rhonchi. GI: Positive bowel sounds. Patient not tender to palpation. EXT: No cyanosis or edema. No signs of tenderness to calf manipulation. NEURO/PSYCH: Decreased interaction overall, only answering a few questions with yes/no. (Subha Nation MD R2) A/P Assessment and Plan 61 yo M, hx of prolonged hospital stay from September 2015 - July 18, 2016, having returned to the hospital on July 22 for fall. Admitted for AMS, rhabdomyolysis , dehydration, hypernatremia and anemia. PEG tube has been placed due to decreased PO intake and dehydration. Clinically improving and waiting for SNF placement. Discharge Planning Discharge pending SNF placement SDW: Dr. Cash (Subha Nation MD R2) Attending Attestation Patient seen and examined. Case reviewed and discussed with the resident team. Agree with plan of care as discussed with me and documented in the resident note. (Mackenzie Cash MD) Problem List: (1) Encounter for dietary counseling and surveillance Status: Acute Plan: Patient with inadequate/poor oral intake of fluids and solids since admission. Speech recommended full liquid diet with thickened liquids of nectar consistency. However patient has been refusing to eat. PEG tube placed on 08/08 given insufficient oral intake and nutrition. Tolerating TFs, up to 60ml/hr -GI on board: * Continue TF per dietary * Cont. PPI * Cont. Iron supplements * Monitor H/H Dietary consulted, appreciate recommendations * Patient w/history of DM and CKD III-IV; therefore, Rec tube feeding w/Suplena , start @ 30ml/hr, increase 10ml Q4hr, as tolerated to goal rate 60ml/hr PLUS Beneprotein packet 3 times a day. Mix 1-pkt Beneprotein w/2-4oz water, stir until dissolved and administer by syringe through PEG tube. Suplena @ goal rate and Beneprotein tid to offer 2667 kcal, 82.8g Protein and 1063ml free water. * Free Water Flushes per MD, as ordered. Rec Cesar packet bid for wound healing(mix 1-packet Cesar w/8-10oz water, until dissolved, and administer by syringe through PEG tube). Labs reviewed-monitor renal labs closely. Additional Recs to follow r/t clinical course. (2) Decubitus ulcer, stage 3 Status: Acute Plan: Patient with large decubitus ulcer over lower back; appears to be healing with good granulation tissue -Wound care consulted, appreciate recommendations * Collagenase ointment to be applied daily * Wound dressing changes daily per RN (3) Anemia Status: Chronic Plan: Hx of anemia. Baseline Hg 9-10; likly ACD. Hb currently at 8.2 but stable . Team will transfuse with hemoglobin is <7. -Continue PO Fe supplementation -FOBT positive GI consulted: appreciate recommendations Continue PPI, iron EGD/colonoscopy performed on 08/05 revealed internal hemorrhoids, small internal hemorrhoids, external hemorrhoids. However limited due to poor bowel prep Discussed case with Dr. Calderon. Initially plan was to repeat colonoscopy on 08/08; however patient has been unable to tolerate colon prep even with NGT. No urgency to repeat colonoscopy during this hospitalization. Given poor po intake, PEG tube placement on 08/08. Will defer repeat colonoscopy once patient is more clinically stable. Hematology Consulted: * Please see plan as below (4) [id number] kidney injury Status: Acute Plan: Baseline GFR 50s. Renal function improving, stable. -Avoid nephrotoxic meds -Closely monitor I&O -Renal US: unremarkable Consult nephrology: appreciate recommendations * Monoclonal protein detected on serum RUDY * [place]/lambda ratio elevated. * Continue cholecalciferol Hematology consulted: appreciate recommendations. * 1 Unit PRBC for anemia on 08/02, posttransfusion H/H 8.09/22 * Procrit 20K x1 given on 08/09 (1 unit given on 08/02) * Likely monoclonal gammopathy of undetermined significance (MGUS) * Recheck immune globulins once acute issues have resolved * Likely anemia of chronic disease * Skeletal survey: Unremarkable study with median sternotomy and multiple gallstones noted. (5) Altered mental status Status: Resolved Plan: Found to hypernatremic on admission as well as acute on chronic PAT. Electrolyte abnormality and azotemia likely contributed to presentation. Baseline mental status is unclear but pt does appear to have had multiple ischemic strokes in the past including lacunar infarcts 10/20/15. Pt now appears to be at baseline. -Hypernatremia and azotemia from initial dehydration resolved from a high of 160 -Negative UA and tox screen. -Ammonia, lactic acid WNL -Consider Seroquel if patient becomes agitated. Currently not needed -Speech therapy following, appreciate recs Imaging: * CXR: unremarkable * Head CT negative for acute process. Consistent with chronic change. (6) Chronic systolic (congestive) heart failure Status: Chronic Plan: Patient with hx of CHF, EF 35% from September 2015. Not currently appearing to be fluid overloaded. -Closely monitor I&O's (7) Coronary artery disease Status: Chronic Plan: Continue Coreg 12.5 mg po bid Continue Eliquis Continue Atorvastatin 80 mg po hs Continue Isosorbide Mononitrate 60 mg po hs (8) HTN (hypertension) Status: Chronic Plan: Continue Amlodipine 10 mg po daily -Hold for SBP <110 (9) Low vitamin D level Status: Acute Plan: Vitamin D low at 11.6. -Cholecalciferol 2000 units po Daily -Ergocalciferol 50,000 units x1 on 08/12 -Calcium carbonate 500 mg BID as calcium has been low (10) Diabetes mellitus Status: Chronic Plan: A1C 6.9 on 11/25/15, not currently on DM meds Serum glucose levels within normal limits, no significant elevations Continue to monitor (11) Nutrition, metabolism, and development symptoms Status: Acute Plan: Fluids/Diet: Tube feeds with tray Electrolytes: Within normal limits, continue to monitor DVT PPX: Eliquis GI PPX: Protonix (Subha Nation MD R2) Problem Qualifiers (1) Anemia: Qualified Code: D50.8 - Other iron deficiency anemia (2) Altered mental status: Qualified Code: R41.82 - Altered mental status, unspecified altered mental status type (3) Coronary artery disease: Qualified Code: I25.10 - Coronary artery disease involving [place] heart without angina pectoris, unspecified vessel or lesion type (4) HTN (hypertension): Qualified Code: I10 - Essential hypertension (5) Diabetes mellitus: Qualified Code: E11.51 - Type 2 diabetes mellitus with diabetic peripheral angiopathy without gangrene, without long-term current use of insulin Subha Nation MD R2 Aug 12, 2016 13:43 Mackenzie Cash MD Aug 13, 2016 13:29
[2016-08-12 16:00] VITALS: BP 122/74; PULSE 84; RESP 20; TEMP 98.5; O2SAT 96
[2016-08-12 20:00] VITALS: BP 125/76; PULSE 87; RESP 21; TEMP 98.7; O2SAT 95
[2016-08-12] MEDS: ISOSORBIDE MONONITRATE 60 MG TAB PO SCH (20:22)
[2016-08-12] MEDS: ATORVASTATIN 80 MG TAB PO SCH (20:22)
[2016-08-12] MEDS: MIRTAZAPINE 15 MG TAB PO SCH (20:23)
[2016-08-13] VITALS: BP 158/74; PULSE 75; RESP 20; TEMP 96; O2SAT 97
[2016-08-13] MEDS: FREE WATER G-TUBE SCH ×6 (04:00→20:00)
[2016-08-13 07:00] LABS: AUTOMATED NEUTROPHIL # 9.2 TH/MM3 (1.8-7.7); BASOPHIL % 0.3 % (0.0-2.0); EOSINOPHIL # 0.3 TH/MM3 (0-0.4); EOSINOPHIL % 2.9 % (0.0-4.0); HEMATOCRIT 24.5 % (39.0-51.0); HEMO FLAGS DIFF FINAL; LYMPH % 10.4 % (9.0-44.0); LYMPHOCYTE # 1.2 TH/MM3 (1.0-4.8); MEAN CELL VOLUME 81.9 FL (80.0-100.0); MEAN CORPUSCULAR HEMOGLOBIN 27.3 PG (27.0-34.0); MEAN CORPUSCULAR HGB CONC 33.3 % (32.0-36.0); MONO % 9.4 % (0.0-8.0); PLATELET COUNT 225 TH/MM3 (150-450); RED BLOOD COUNT 2.99 MIL/MM3 (4.50-5.90); RED CELL DISTRIBUTION WIDTH 17.1 % (11.6-17.2); WHITE BLOOD COUNT 11.9 TH/MM3 (4.0-11.0)
[2016-08-13 07:23] LABS: BICARBONATE 25.6 MEQ/L (21.0-32.0); POTASSIUM 3.7 MEQ/L (3.5-5.1)
[2016-08-13 08:00] VITALS: BP 143/71; PULSE 86; RESP 18; TEMP 98.8; O2SAT 95
[2016-08-13] MEDS: CHOLECALCIFEROL (VIT D3) 1000 UNIT TAB PO SCH (09:34)
[2016-08-13] MEDS: APIXABAN 2.5 MG TABLET PO SCH ×2 (09:34→21:31)
[2016-08-13] MEDS: FERROUS SULFATE 325 MG (65 MG ELEMENTAL IRON) TAB PO SCH (09:34)
[2016-08-13] MEDS: CARVEDILOL 12.5 MG TAB PO SCH ×2 (09:34→21:31)
[2016-08-13] MEDS: PANTOPRAZOLE SOD 40 MG DELAYED RELEASE TAB PO SCH (09:35)
[2016-08-13] MEDS: CALCIUM CARBONATE 500 MG CHEWABLE TAB CHEW SCH ×2 (09:35→21:31)
[2016-08-13] MEDS: SODIUM CHLORIDE 0.9% FLUSH 10 ML FLUSH IV FLUSH SCH ×2 (09:35→21:00)
[2016-08-13] MEDS: COLLAGENASE OINT 30 GM TUBE TOPICAL SCH (09:36)
--- NOTE | 2016-08-13 09:50 | HHI.FPPN ---
Subjective Remarks Patient seen and examined by medical team this morning. No acute events overnight with VSS. Today Mr. Amado does not interact during my interview. He does open his eyes to verbal and contact stimulation, but does not move or verbally respond. He continues to tolerate his tube feeds well without difficulty. Due to his inability to communicate, ROS was unable to be completed. Discussed with Case Management the patient's status for discharge to rehab facility. Currently he is approved for placement, however due to his status with [facility] regarding his finances and guardianship, his discharge is currently delayed. Case Management will continue to work towards placement early next week. (Nate Avalos MD R1) Objective Vitals Vital Signs Date Time Temp Pulse Resp B/P Pulse Ox O2 Delivery O2 Flow Rate FiO2 08/13/16 08:00 98.8 86 18 143/71 95 08/13/16 00:00 96.0 75 20 158/74 97 08/12/16 20:00 98.7 87 21 125/76 95 08/12/16 16:00 98.5 84 20 122/74 96 08/12/16 12:00 98.7 83 24 119/73 97 I/O 08/12/16 08/12/16 08/12/16 08/13/16 08/13/16 08/13/16 07:00 15:00 23:00 07:00 15:00 23:00 Intake Total 120 ml 1493 ml 678 ml 901 ml Output Total 500 ml 600 ml 1200 ml Balance -380 ml 893 ml 678 ml -299 ml Intake Oral 120 ml 120 ml 60 ml 30 ml Tube Feeding 1373 ml 368 ml 471 ml Other 250 ml 400 ml Output Urine Total 500 ml 600 ml 1200 ml # Voids 2 3 # Bowel Movements 1 2 3 0 (Nate Avalos MD R1) Result Diagram: 08/13/16 0551 08/13/16 0551 Objective Remarks GEN: Thin, frail 61 y/o M in no acute distress. Laying in bed with PEG tube in place with tube feeds running. SKIN: Stage 3 decubitus sacral ulcer with small amount adherent fibrinous material. Good granulation tissue underneath. No active drainage. Dry mucous membrane. Bandage CDI. Erythematous scaly patch on lateral aspect of left upper thigh. Skin is dry. PEG tube site c/d/i without surrounding erythema with ABD binder in place. CV: Regular rate and rhythm without obvious murmurs. LUNGS: Clear to anterior auscultation bilaterally. No wheezes, rales, rhonchi. GI: Soft, nondistended, nontender with +BS. No masses appreciated. EXT: No cyanosis or edema. No signs of tenderness to calf manipulation. NEURO/PSYCH: Patient not involved with history or examination. He only opens his eyes to verbal and physical stimulation, otherwise he is unresponsive. ( Nate Avalos MD R1) A/P Assessment and Plan 61 yo M, hx of prolonged hospital stay from September 2015 - July 18, 2016, having returned to the hospital on July 22 for fall. Admitted for AMS, rhabdomyolysis , dehydration, hypernatremia and anemia. PEG tube has been placed due to decreased PO intake and dehydration. Clinically improving and waiting for SNF placement. Discharge Planning Discharge pending DCF clearance for placement into rehab. SDW: Dr. Cash (Nate Avalos MD R1) Attending Attestation Patient seen and examined. Case reviewed and discussed with the resident team. Agree with plan of care as discussed with me and documented in the resident note. (Mackenzie Cash MD) Problem List: (1) Encounter for dietary counseling and surveillance Status: Acute Plan: Patient with inadequate/poor oral intake of fluids and solids since admission. Speech recommended full liquid diet with thickened liquids of nectar consistency. However patient has been refusing to eat. PEG tube placed on 08/08 given insufficient oral intake and nutrition. Tolerating TFs, up to 60ml/hr -GI on board: * Continue TF per dietary * Cont. PPI * Cont. Iron supplements * Monitor H/H Dietary consulted, appreciate recommendations * Patient w/history of DM and CKD III-IV; therefore, Rec tube feeding w/Suplena , start @ 30ml/hr, increase 10ml Q4hr, as tolerated to goal rate 60ml/hr PLUS Beneprotein packet 3 times a day. Mix 1-pkt Beneprotein w/2-4oz water, stir until dissolved and administer by syringe through PEG tube. Suplena @ goal rate and Beneprotein tid to offer 2667 kcal, 82.8g Protein and 1063ml free water. * Free Water Flushes 200mL QID. Rec Cesar packet bid for wound healing(mix 1-packet Cesar w/8-10oz water, until dissolved, and administer by syringe through PEG tube). Labs reviewed-monitor renal labs closely. Additional Recs to follow r/t clinical course. (2) Decubitus ulcer, stage 3 Status: Acute Plan: Patient with large decubitus ulcer over lower back; appears to be healing with good granulation tissue -Wound care consulted, appreciate recommendations * Collagenase ointment to be applied daily * Wound dressing changes daily per RN (3) Anemia Status: Chronic Plan: Hx of anemia. Baseline Hg 9-10; likly ACD. Hb currently at 8.2 but stable . Team will transfuse with hemoglobin is <7. -Continue PO Fe supplementation -FOBT positive GI consulted: appreciate recommendations Continue PPI, iron EGD/colonoscopy performed on 08/05 revealed internal hemorrhoids, small internal hemorrhoids, external hemorrhoids. However limited due to poor bowel prep Discussed case with Dr. Calderon. Initially plan was to repeat colonoscopy on 08/08; however patient has been unable to tolerate colon prep even with NGT. No urgency to repeat colonoscopy during this hospitalization. Given poor po intake, PEG tube placement on 08/08. Will defer repeat colonoscopy once patient is more clinically stable. Hematology Consulted: * Please see plan as below (4) [id number] kidney injury Status: Acute Plan: Baseline GFR 50s. Renal function improving, stable. -Avoid nephrotoxic meds -Closely monitor I&O -Renal US: unremarkable Consult nephrology: appreciate recommendations * Monoclonal protein detected on serum RUDY * [place]/lambda ratio elevated. * Continue cholecalciferol Hematology consulted: appreciate recommendations. * 1 Unit PRBC for anemia on 08/02, posttransfusion H/H 8.5/25 * Procrit 20K x1 given on 08/09 (1 unit given on 08/02) * Likely monoclonal gammopathy of undetermined significance (MGUS) * Recheck immune globulins once acute issues have resolved * Likely anemia of chronic disease * Skeletal survey: Unremarkable study with median sternotomy and multiple gallstones noted. (5) Altered mental status Status: Resolved Plan: Found to hypernatremic on admission as well as acute on chronic PAT. Electrolyte abnormality and azotemia likely contributed to presentation. Baseline mental status is unclear but pt does appear to have had multiple ischemic strokes in the past including lacunar infarcts 10/20/15. Pt now appears to be at baseline. -Hypernatremia and azotemia from initial dehydration resolved from a high of 160 -Negative UA and tox screen. -Ammonia, lactic acid WNL -Consider Seroquel if patient becomes agitated. Currently not needed -Speech therapy following, appreciate recs Imaging: * CXR: unremarkable * Head CT negative for acute process. Consistent with chronic change. (6) Chronic systolic (congestive) heart failure Status: Chronic Plan: Patient with hx of CHF, EF 35% from September 2015. Not currently appearing to be fluid overloaded. -Closely monitor I&O's (7) Coronary artery disease Status: Chronic Plan: Continue Coreg 12.5 mg po bid Continue Eliquis Continue Atorvastatin 80 mg po hs Continue Isosorbide Mononitrate 60 mg po hs (8) HTN (hypertension) Status: Chronic Plan: Continue Amlodipine 10 mg po daily -Hold for SBP <110 (9) Low vitamin D level Status: Acute Plan: Vitamin D low at 11.6. -Cholecalciferol 2000 units po Daily -Ergocalciferol 50,000 units x1 on 08/12 -Calcium carbonate 500 mg BID as calcium has been low (10) Diabetes mellitus Status: Chronic Plan: A1C 6.9 on 11/25/15, not currently on DM meds Serum glucose levels within normal limits, no significant elevations Continue to monitor (11) Nutrition, metabolism, and development symptoms Status: Acute Plan: Fluids/Diet: Tube feeds with tray Electrolytes: Within normal limits, continue to monitor DVT PPX: Eliquis GI PPX: Protonix (Nate Avalos MD R1) Problem Qualifiers (1) Anemia: Qualified Code: D50.8 - Other iron deficiency anemia (2) Altered mental status: Qualified Code: R41.82 - Altered mental status, unspecified altered mental status type (3) Coronary artery disease: Qualified Code: I25.10 - Coronary artery disease involving ruby heart without angina pectoris, unspecified vessel or lesion type (4) HTN (hypertension): Qualified Code: I10 - Essential hypertension (5) Diabetes mellitus: Qualified Code: E11.51 - Type 2 diabetes mellitus with diabetic peripheral angiopathy without gangrene, without long-term current use of insulin Nate Avalos MD R1 Aug 13, 2016 09:50 Mackenzie Cash MD Aug 13, 2016 13:29
[2016-08-13 12:00] VITALS: BP 117/76; PULSE 87; RESP 20; TEMP 98.5; O2SAT 99
[2016-08-13 16:00] VITALS: BP 124/74; PULSE 89; RESP 20; TEMP 97.9; O2SAT 99
[2016-08-13 20:00] VITALS: BP 130/83; PULSE 95; RESP 20; TEMP 99.8; O2SAT 97
[2016-08-13] MEDS: ATORVASTATIN 80 MG TAB PO SCH (21:31)
[2016-08-13] MEDS: ISOSORBIDE MONONITRATE 60 MG TAB PO SCH (21:31)
[2016-08-13] MEDS: MIRTAZAPINE 15 MG TAB PO SCH (21:32)
[2016-08-14] VITALS: BP 130/81; PULSE 95; RESP 20; TEMP 98.6; O2SAT 97
[2016-08-14] MEDS: FREE WATER G-TUBE SCH ×6 (04:00→20:00)
[2016-08-14 05:30] LABS: AUTOMATED NEUTROPHIL # 11.3 TH/MM3 (1.8-7.7); BASOPHIL % 0.3 % (0.0-2.0); EOSINOPHIL # 0.2 TH/MM3 (0-0.4); EOSINOPHIL % 1.3 % (0.0-4.0); HEMO FLAGS DIFF FINAL; LYMPH % 7.7 % (9.0-44.0); MEAN CORPUSCULAR HEMOGLOBIN 26.7 PG (27.0-34.0); MEAN CORPUSCULAR HGB CONC 32.6 % (32.0-36.0); MONO % 6.4 % (0.0-8.0); NEUT % 84.3 % (16.0-70.0); PLATELET COUNT 280 TH/MM3 (150-450); RED BLOOD COUNT 3.42 MIL/MM3 (4.50-5.90); RED CELL DISTRIBUTION WIDTH 17.5 % (11.6-17.2); WHITE BLOOD COUNT 13.4 TH/MM3 (4.0-11.0)
[2016-08-14 05:46] LABS: BICARBONATE 25.7 MEQ/L (21.0-32.0); MAGNESIUM 1.3 MG/DL (1.5-2.5); POTASSIUM 4.4 MEQ/L (3.5-5.1)
[2016-08-14 08:00] VITALS: BP 123/81; PULSE 91; RESP 17; TEMP 98.5; O2SAT 95
[2016-08-14] MEDS: PANTOPRAZOLE SOD 40 MG DELAYED RELEASE TAB PO SCH (08:26)
[2016-08-14] MEDS: CARVEDILOL 12.5 MG TAB PO SCH ×2 (08:26→22:48)
[2016-08-14] MEDS: FERROUS SULFATE 325 MG (65 MG ELEMENTAL IRON) TAB PO SCH (08:26)
[2016-08-14] MEDS: CALCIUM CARBONATE 500 MG CHEWABLE TAB CHEW SCH ×2 (08:27→22:49)
[2016-08-14] MEDS: CHOLECALCIFEROL (VIT D3) 1000 UNIT TAB PO SCH (08:27)
[2016-08-14] MEDS: SODIUM CHLORIDE 0.9% FLUSH 10 ML FLUSH IV FLUSH SCH ×2 (08:27→22:50)
[2016-08-14] MEDS: APIXABAN 2.5 MG TABLET PO SCH ×2 (08:27→22:48)
[2016-08-14] MEDS: COLLAGENASE OINT 30 GM TUBE TOPICAL SCH (08:28)
--- NOTE | 2016-08-14 11:53 | HHI.FPPN ---
Subjective Remarks Pt seen and examined this morning. No acute events overnight. AFVSS. Pt denies being in pain, is otherwise not very talkative. His purse reports that he has not been eating well. Residual from Peg tube was about 200mls overnight (tube feeds and gastric secretions), but most recently about 100mls. (Subha Nation MD R2) Objective Vitals Vital Signs Date Time Temp Pulse Resp B/P Pulse Ox O2 Delivery O2 Flow Rate FiO2 08/14/16 08:00 98.5 91 17 123/81 95 08/14/16 00:00 98.6 95 20 130/81 97 08/13/16 20:00 99.8 95 20 130/83 97 08/13/16 16:00 97.9 89 20 124/74 99 08/13/16 12:00 98.5 87 20 117/76 99 I/O 08/13/16 08/13/16 08/13/16 08/14/16 08/14/16 08/14/16 07:00 15:00 23:00 07:00 15:00 23:00 Intake Total 901 ml 1099 ml 650 ml 585 ml 440 ml Output Total 1200 ml 50 ml 500 ml 550 ml 180.0 ml Balance -299 ml 1049 ml 150 ml 35 ml 260.0 ml Intake Oral 30 ml 50 ml 25 ml 0 ml Tube Feeding 471 ml 649 ml 425 ml 585 ml Tube Irrigant 40 ml Other 400 ml 400 ml 200 ml 400 ml Output Urine Total 1200 ml 50 ml 300 ml 550 ml Stool Total 200 ml Tube Feeding Residual Discard 180.0 ml # Voids 1 # Bowel Movements 0 1 0 (Subha Nation MD R2) Result Diagram: 08/14/16 0415 08/14/16414 Objective Remarks GEN: Thin, frail 61 y/o M in no acute distress. SKIN: Stage 3 decubitus sacral ulcer with small amount adherent fibrinous material. Good granulation tissue underneath. No active drainage. Dry mucous membrane. Bandage CDI. Erythematous scaly patch on lateral aspect of left upper thigh. Skin is dry. PEG tube site c/d/i without surrounding erythema with ABD binder in place. CV: Regular rate and rhythm without obvious murmurs. LUNGS: Clear to anterior auscultation bilaterally. No wheezes, rales, rhonchi. GI: Soft, nondistended, nontender with +BS. No masses appreciated. EXT: No cyanosis or edema. No signs of tenderness to calf manipulation. NEURO/PSYCH: Patient not involved with history or examination. He only opens his eyes to verbal and physical stimulation, otherwise he is unresponsive. ( Subha Nation MD R2) A/P Assessment and Plan 61 yo M, hx of prolonged hospital stay from September 2015 - July 18, 2016, having returned to the hospital on July 22 for fall. Admitted for AMS, rhabdomyolysis , dehydration, hypernatremia and anemia. PEG tube has been placed due to decreased PO intake and dehydration. Clinically improving and waiting for SNF placement. Discharge Planning Discharge pending DCF clearance for placement into rehab. SDW: Dr. Avalos DW: Dr. Austin (Subha Nation MD R2) Attending Attestation Pt. examined and case discussed with resident physicians I have read the above note and agree with the assessment/plan as discussed with me I was involved in all medical decision making for this patient Abiodun Austin MD (Abiodun Austin MD) Problem List: (1) Encounter for dietary counseling and surveillance Status: Acute Plan: Patient with inadequate/poor oral intake of fluids and solids since admission. Speech recommended full liquid diet with thickened liquids of nectar consistency. However patient has been refusing to eat. PEG tube placed on 08/08 given insufficient oral intake and nutrition. Tolerating TFs, up to 60ml/hr -GI on board, appreciate recommendations and intervention: * Continue TF per dietary, see below * Protonix 40mg PO Daily * Ferrous Sulfate 325 mg PO Daily * H/H stable, continue to monitor Dietary consulted, appreciate recommendations * Patient w/history of DM and CKD III-IV; therefore, Rec tube feeding w/Suplena , start @ 30ml/hr, increase 10ml Q4hr, as tolerated to goal rate 60ml/hr PLUS Beneprotein packet 3 times a day. Mix 1-pkt Beneprotein w/2-4oz water, stir until dissolved and administer by syringe through PEG tube. Suplena @ goal rate and Beneprotein tid to offer 2667 kcal, 82.8g Protein and 1063ml free water. * Free Water Flushes 200mL QID. Rec Cesar packet bid for wound healing(mix 1-packet Cesar w/8-10oz water, until dissolved, and administer by syringe through PEG tube). Labs reviewed-monitor renal labs closely. Additional Recs to follow r/t clinical course. (2) Decubitus ulcer, stage 3 Status: Acute Plan: Patient with large decubitus ulcer over lower back; appears to be healing with good granulation tissue -Wound care consulted, appreciate recommendations * Collagenase ointment to be applied daily * Wound dressing changes daily per RN (3) Anemia Status: Chronic Plan: Hx of anemia. Baseline Hg 9-10; likly ACD. Hb currently at 8.2 but stable . Team will transfuse with hemoglobin is <7. -Continue PO Fe supplementation -FOBT positive GI consulted: appreciate recommendations See medications above EGD/colonoscopy performed on 08/05 revealed internal hemorrhoids, small internal hemorrhoids, external hemorrhoids. However limited due to poor bowel prep Discussed case with Dr. Calderon. Initially plan was to repeat colonoscopy on 08/08; however patient has been unable to tolerate colon prep even with NGT. No urgency to repeat colonoscopy during this hospitalization. Given poor po intake, PEG tube placement on 08/08. Will defer repeat colonoscopy until patient is more clinically stable. Hematology Consulted: * Please see plan as below (4) [id number] kidney injury Status: Acute Plan: Baseline GFR 50s. Renal function improving, stable. -Avoid nephrotoxic meds -Closely monitor I&O -Renal US: unremarkable Consult nephrology: appreciate recommendations * Monoclonal protein detected on serum RUDY * [place]/lambda ratio elevated. * Continue cholecalciferol Hematology consulted: appreciate recommendations. * 1 Unit PRBC for anemia on 08/02, posttransfusion H/H 8.5/25 * Procrit 20K x1 given on 08/09 (1 unit given on 08/02) * Likely monoclonal gammopathy of undetermined significance (MGUS) * Recheck immune globulins once acute issues have resolved * Likely anemia of chronic disease * Skeletal survey: Unremarkable study with median sternotomy and multiple gallstones noted. (5) Altered mental status Status: Resolved Plan: Found to hypernatremic on admission as well as acute on chronic PAT. Electrolyte abnormality and azotemia likely contributed to presentation. Baseline mental status is unclear but pt does appear to have had multiple ischemic strokes in the past including lacunar infarcts 10/20/15. Pt now appears to be at baseline. -Hypernatremia and azotemia from initial dehydration resolved from a high of 160 -Negative UA and tox screen. -Ammonia, lactic acid WNL -Consider Seroquel if patient becomes agitated. Currently not needed -Speech therapy following, appreciate recs Imaging: * CXR: unremarkable * Head CT negative for acute process. Consistent with chronic change. (6) Chronic systolic (congestive) heart failure Status: Chronic Plan: Patient with hx of CHF, EF 35% from September 2015. Not currently appearing to be fluid overloaded. -Closely monitor I&O's (7) Coronary artery disease Status: Chronic Plan: Continue Coreg 12.5 mg po bid Continue Eliquis Continue Atorvastatin 80 mg po hs Continue Isosorbide Mononitrate 60 mg po hs (8) HTN (hypertension) Status: Chronic Plan: Continue Amlodipine 10 mg po daily -Hold for SBP <110 (9) Low vitamin D level Status: Acute Plan: Vitamin D low at 11.6. -Cholecalciferol 2000 units po Daily -Calcium carbonate 500 mg BID as calcium has been low -Ergocalciferol 50,000 units x1 on 08/12 (10) Diabetes mellitus Status: Chronic Plan: A1C 6.9 on 11/25/15, not currently on DM meds Serum glucose levels within normal limits, no significant elevations Continue to monitor (11) Nutrition, metabolism, and development symptoms Status: Acute Plan: Fluids/Diet: Tube feeds with tray Electrolytes: See Calcium under Low vitamin D above DVT PPX: Eliquis GI PPX: Protonix (Subha Nation MD R2) Problem Qualifiers (1) Anemia: Qualified Code: D50.8 - Other iron deficiency anemia (2) Altered mental status: Qualified Code: R41.82 - Altered mental status, unspecified altered mental status type (3) Coronary artery disease: Qualified Code: I25.10 - Coronary artery disease involving [place] heart without angina pectoris, unspecified vessel or lesion type (4) HTN (hypertension): Qualified Code: I10 - Essential hypertension (5) Diabetes mellitus: Qualified Code: E11.51 - Type 2 diabetes mellitus with diabetic peripheral angiopathy without gangrene, without long-term current use of insulin Subha Nation MD R2 Aug 14, 2016 11:53 Abiodun Austin MD Aug 14, 2016 20:31
[2016-08-14 12:00] VITALS: BP 99/61; PULSE 88; RESP 16; TEMP 97.8; O2SAT 95
[2016-08-14 16:00] VITALS: BP 104/71; PULSE 83; RESP 18; TEMP 97.9; O2SAT 95
[2016-08-14 20:00] VITALS: BP 100/55; PULSE 110; RESP 17; TEMP 99; O2SAT 94
[2016-08-14] MEDS ORDERED: MAGNESIUM SULFATE 1 GM PREMIX 100 ML IV ONE (21:30)
[2016-08-14] MEDS: MIRTAZAPINE 15 MG TAB PO SCH (22:48)
[2016-08-14] MEDS: ISOSORBIDE MONONITRATE 60 MG TAB PO SCH (22:48)
[2016-08-14] MEDS: ATORVASTATIN 80 MG TAB PO SCH (22:48)
[2016-08-15 00:58] VITALS: BP 113/76; PULSE 87; RESP 20; TEMP 98.6; O2SAT 93
[2016-08-15] MEDS: FREE WATER G-TUBE SCH ×7 (04:00→23:53)
[2016-08-15 06:17] LABS: AUTOMATED NEUTROPHIL # 8.8 TH/MM3 (1.8-7.7); BASOPHIL % 0.4 % (0.0-2.0); EOSINOPHIL # 0.3 TH/MM3 (0-0.4); EOSINOPHIL % 2.7 % (0.0-4.0); HEMATOCRIT 27.3 % (39.0-51.0); HEMO FLAGS DIFF FINAL; LYMPHOCYTE # 1.1 TH/MM3 (1.0-4.8); MEAN CELL VOLUME 82.7 FL (80.0-100.0); MEAN CORPUSCULAR HEMOGLOBIN 27.6 PG (27.0-34.0); MEAN CORPUSCULAR HGB CONC 33.4 % (32.0-36.0); MONO % 10.1 % (0.0-8.0); NEUT % 76.8 % (16.0-70.0); PLATELET COUNT 256 TH/MM3 (150-450); WHITE BLOOD COUNT 11.4 TH/MM3 (4.0-11.0)
[2016-08-15 06:55] LABS: BICARBONATE 20.4 MEQ/L (21.0-32.0); MAGNESIUM 1.4 MG/DL (1.5-2.5)
[2016-08-15 08:00] VITALS: BP 118/71; PULSE 82; RESP 16; TEMP 97.1; O2SAT 99
[2016-08-15] MEDS: CHOLECALCIFEROL (VIT D3) 1000 UNIT TAB PO SCH (08:34)
[2016-08-15] MEDS: CARVEDILOL 12.5 MG TAB PO SCH ×2 (08:35→21:20)
[2016-08-15] MEDS: PANTOPRAZOLE SOD 40 MG DELAYED RELEASE TAB PO SCH (08:35)
[2016-08-15] MEDS: FERROUS SULFATE 325 MG (65 MG ELEMENTAL IRON) TAB PO SCH (08:35)
[2016-08-15] MEDS: CALCIUM CARBONATE 500 MG CHEWABLE TAB CHEW SCH ×2 (08:36→21:20)
[2016-08-15] MEDS: APIXABAN 2.5 MG TABLET PO SCH ×2 (08:36→21:20)
[2016-08-15] MEDS: SODIUM CHLORIDE 0.9% FLUSH 10 ML FLUSH IV FLUSH SCH ×2 (08:37→21:00)
[2016-08-15] MEDS: COLLAGENASE OINT 30 GM TUBE TOPICAL SCH (08:37)
--- NOTE | 2016-08-15 10:14 | HHI.FPPN ---
Subjective Remarks Patient seen and examined. MAGED overnight. VSSAF. Denies any specific complaints this morning. Objective Vitals Vital Signs Date Time Temp Pulse Resp B/P Pulse Ox O2 Delivery O2 Flow Rate FiO2 08/15/16 08:00 97.1 82 16 118/71 99 08/15/16 00:58 98.6 87 20 113/76 93 08/14/16 20:00 99.0 110 17 100/55 94 08/14/16 16:00 97.9 83 18 104/71 95 08/14/16 12:00 97.8 88 16 99/61 95 I/O 08/14/16 08/14/16 08/14/16 08/15/16 08/15/16 08/15/16 07:00 15:00 23:00 07:00 15:00 23:00 Intake Total 585 ml 799 ml 782 ml 490 ml Output Total 550 ml 630.0 ml 300 ml 600 ml Balance 35 ml 169.0 ml 482 ml -110 ml Intake Oral 0 ml 0 ml Tube Feeding 585 ml 359 ml 582 ml 490 ml Tube Irrigant 40 ml Other 400 ml 200 ml Output Urine Total 550 ml 450 ml 300 ml 600 ml Tube Feeding Residual Discard 180.0 ml # Bowel Movements 0 1 Result Diagram: 08/15/16 0526 08/15/16 0526 Imaging Last Impressions Bone Osseous Survey 07/31/16 0000 Signed Impressions: Service Date/Time: Sunday, July 31, 2016 16:09 - CONCLUSION: Unremarkable bone survey. Incidental note made of median sternotomy. Multiple gallstones. Richard Gerber MD Head CT 07/25/16 1644 Signed Impressions: Service Date/Time: Monday, July 25, 2016 17:19 - CONCLUSION: 1. Lacunar infarcts bilaterally, worse on the left. 2. Negative for an acute process. Dideir Clay MD FACR Renal Ultrasound 07/25/16 0000 Signed Impressions: Service Date/Time: Monday, July 25, 2016 20:55 - CONCLUSION: 1. Tiny nonobstructing calcified left renal calculi. 2. No hydronephrosis or solid renal mass. Efren Cleaning MD Chest X-Ray 07/25/16 0000 Signed Impressions: Service Date/Time: Monday, July 25, 2016 19:36 - CONCLUSION: No acute disease. Efren Cleaning MD Objective Remarks GEN: Thin, frail 61 y/o M in no acute distress. SKIN: Stage 3 decubitus sacral ulcer with small amount adherent fibrinous material. Good granulation tissue underneath. No active drainage. Bandage CDI. Erythematous scaly patch on lateral aspect of left upper thigh. Skin is dry. PEG tube site c/d/i without surrounding erythema CV: Regular rate and rhythm without obvious murmurs. LUNGS: Clear to anterior auscultation bilaterally. No wheezes, rales, rhonchi. GI: Soft, nondistended, nontender with +BS. EXT: No cyanosis or edema. No signs of tenderness to calf manipulation. NEURO/PSYCH: Patient not involved with history or examination. Only communicates with "yes" or "no" A/P Assessment and Plan 61 yo M, hx of prolonged hospital stay from September 2015 - July 18, 2016, having returned to the hospital on July 22 for fall. Admitted for AMS, rhabdomyolysis , dehydration, hypernatremia and anemia. PEG tube has been placed due to decreased PO intake and dehydration. He is tolerating tube feeds. Patient is medically cleared for discharge; however is awaiting SNF placement. Discharge Planning Discharge pending DCF clearance for placement into rehab. CM is on board to assist with d/c plans. They plan to touch base with DCF today. w/d/w Dr. Austin Problem List: (1) Encounter for dietary counseling and surveillance Status: Acute Plan: Patient with inadequate/poor oral intake of fluids and solids since admission. Speech recommended full liquid diet with thickened liquids of nectar consistency. However patient has been refusing to eat. PEG tube placed on 08/08 given insufficient oral intake and nutrition. Tolerating TFs, up to 60ml/hr -GI on board, appreciate recommendations and intervention: * Continue TF per dietary, see below * Protonix 40mg PO Daily * Ferrous Sulfate 325 mg PO Daily * H/H stable, continue to monitor Dietary consulted, appreciate recommendations * Patient w/history of DM and CKD III-IV; therefore, Rec tube feeding w/Suplena , start @ 30ml/hr, increase 10ml Q4hr, as tolerated to goal rate 60ml/hr PLUS Beneprotein packet 3 times a day. Mix 1-pkt Beneprotein w/2-4oz water, stir until dissolved and administer by syringe through PEG tube. Suplena @ goal rate and Beneprotein tid to offer 2667 kcal, 82.8g Protein and 1063ml free water. * Free Water Flushes 200mL QID. Rec Cesar packet bid for wound healing(mix 1-packet Cesar w/8-10oz water, until dissolved, and administer by syringe through PEG tube). Labs reviewed-monitor renal labs closely. Additional Recs to follow r/t clinical course. (2) Decubitus ulcer, stage 3 Status: Acute Plan: Patient with large decubitus ulcer over lower back; appears to be healing with good granulation tissue -Wound care consulted, appreciate recommendations * Collagenase ointment to be applied daily * Wound dressing changes daily per RN (3) Anemia Status: Chronic Plan: Hx of anemia; likely secondary to anemia of chronic disease. Baseline Hg 9-10; likly ACD. Hb currently stable. Team will transfuse with hemoglobin is <7. -Continue PO Fe supplementation -FOBT positive GI consulted: appreciate recommendations See medications above EGD/colonoscopy performed on 08/05 revealed internal hemorrhoids, small internal hemorrhoids, external hemorrhoids. However limited due to poor bowel prep Discussed case with Dr. Calderon. Initially plan was to repeat colonoscopy on 08/08; however patient has been unable to tolerate colon prep even with NGT. No urgency to repeat colonoscopy during this hospitalization. Given poor po intake, PEG tube placement on 08/08. Will defer repeat colonoscopy until patient is more clinically stable. Hematology Consulted: * Please see plan as below (4) [id number] kidney injury Status: Acute Plan: Baseline GFR 50s. Renal function improving, stable. -Avoid nephrotoxic meds -Closely monitor I&O -Renal US: unremarkable Consult nephrology: appreciate recommendations * Monoclonal protein detected on serum RUDY * [place]/lambda ratio elevated. * Continue cholecalciferol Hematology consulted: appreciate recommendations. * 1 Unit PRBC for anemia on 08/02, posttransfusion H/H 8.5/25 * Procrit 20K x1 given on 08/09 (1 unit given on 08/02) * Likely monoclonal gammopathy of undetermined significance (MGUS) * Recheck immune globulins once acute issues have resolved * Skeletal survey: Unremarkable study with median sternotomy and multiple gallstones noted. (5) Altered mental status Status: Resolved Plan: Found to hypernatremic on admission as well as acute on chronic PAT. Electrolyte abnormality and azotemia likely contributed to presentation. Hypernatremia and azotemia from initial dehydration resolved from a high of 160. Baseline mental status is unclear but pt does appear to have had multiple ischemic strokes in the past including lacunar infarcts 10/20/15. Pt now appears to be at baseline. -Negative UA and tox screen. -Ammonia, lactic acid WNL -Consider Seroquel if patient becomes agitated. Currently not needed Imaging: * CXR: unremarkable * Head CT negative for acute process. Consistent with chronic change. (6) Chronic systolic (congestive) heart failure Status: Chronic Plan: Patient with hx of CHF, EF 35% from September 2015. Not currently appearing to be fluid overloaded. -Closely monitor I&O's (7) Coronary artery disease Status: Chronic Plan: -Coreg 12.5 mg po bid -Eliquis -Atorvastatin 80 mg po hs -Isosorbide Mononitrate 60 mg po hs (8) HTN (hypertension) Status: Chronic Plan: Continue Amlodipine 10 mg po daily -Hold for SBP <110 (9) Low vitamin D level Status: Acute Plan: Vitamin D low at 11.6. -Cholecalciferol 2000 units po Daily -Calcium carbonate 500 mg BID as calcium has been low -Ergocalciferol 50,000 units x1 on 08/12 (10) Diabetes mellitus Status: Chronic Plan: A1C 6.9 on 11/25/15, not currently on DM meds Serum glucose levels within normal limits, no significant elevations Continue to monitor (11) Nutrition, metabolism, and development symptoms Status: Acute Plan: Fluids/Diet: Tube feeds with tray Electrolytes: Mg 1.4. Continue to monitor DVT PPX: Eliquis GI PPX: Protonix Problem Qualifiers (1) Anemia: Qualified Code: D50.8 - Other iron deficiency anemia (2) Altered mental status: Qualified Code: R41.82 - Altered mental status, unspecified altered mental status type (3) Coronary artery disease: Qualified Code: I25.10 - Coronary artery disease involving curyung heart without angina pectoris, unspecified vessel or lesion type (4) HTN (hypertension): Qualified Code: I10 - Essential hypertension (5) Diabetes mellitus: Qualified Code: E11.51 - Type 2 diabetes mellitus with diabetic peripheral angiopathy without gangrene, without long-term current use of insulin Bernice Vasquez MD R3 Aug 15, 2016 10:13 angiopathy without gangrene, without long-term current use of insulin Bernice Vasquez MD R3 Aug 15, 2016 10:13
[2016-08-15 12:00] VITALS: BP 95/60; PULSE 84; RESP 18; TEMP 97.4; O2SAT 99
[2016-08-15 16:00] VITALS: BP 91/65; PULSE 82; RESP 16; TEMP 98.3; O2SAT 99
[2016-08-15] MEDS ORDERED: MAGNESIUM SULFATE 1 GM PREMIX 100 ML IV ONE (17:15)
[2016-08-15 20:00] VITALS: BP 108/64; PULSE 80; RESP 21; TEMP 98.8; O2SAT 97
[2016-08-15] MEDS: ISOSORBIDE MONONITRATE 60 MG TAB PO SCH (21:20)
[2016-08-15] MEDS: ATORVASTATIN 80 MG TAB PO SCH (21:20)
[2016-08-15] MEDS: MIRTAZAPINE 15 MG TAB PO SCH (21:20)
[2016-08-16] VITALS: BP 107/70; PULSE 82; RESP 19; TEMP 96; O2SAT 97
[2016-08-16] MEDS: FREE WATER G-TUBE SCH ×5 (04:00→19:49)
[2016-08-16 06:26] LABS: AUTOMATED NEUTROPHIL # 6.7 TH/MM3 (1.8-7.7); BASOPHIL # 0.1 TH/MM3 (0-0.2); BASOPHIL % 0.6 % (0.0-2.0); EOSINOPHIL # 0.3 TH/MM3 (0-0.4); EOSINOPHIL % 3.4 % (0.0-4.0); HEMATOCRIT 24.1 % (39.0-51.0); HEMO FLAGS DIFF FINAL; LYMPH % 12.4 % (9.0-44.0); LYMPHOCYTE # 1.1 TH/MM3 (1.0-4.8); MEAN CELL VOLUME 80.6 FL (80.0-100.0); MEAN CORPUSCULAR HEMOGLOBIN 27.7 PG (27.0-34.0); MEAN CORPUSCULAR HGB CONC 34.3 % (32.0-36.0); MONO % 9.2 % (0.0-8.0); NEUT % 74.4 % (16.0-70.0); PLATELET COUNT 261 TH/MM3 (150-450); RED BLOOD COUNT 2.99 MIL/MM3 (4.50-5.90)
[2016-08-16 06:56] LABS: BICARBONATE 26.2 MEQ/L (21.0-32.0); MAGNESIUM 1.8 MG/DL (1.5-2.5); POTASSIUM 3.5 MEQ/L (3.5-5.1)
[2016-08-16 08:00] VITALS: BP 115/76; PULSE 77; RESP 16; TEMP 98.2; O2SAT 97
[2016-08-16] MEDS ORDERED: CALCIUM CARBONATE 1.25 GM (CA 500 MG) TAB PO ONE (08:30)
[2016-08-16] MEDS ORDERED: EPOETIN ALFA 20,000 UNITS/ML VIAL SQ ONE (09:00)
--- NOTE | 2016-08-16 09:01 | HHI.FPPN ---
Subjective Remarks Pt seen and examined this morning. No acute events overnight. AFVSS. Pt awake and alert, not responding to verbal commands or answering questions. He does not appear to be in any acute distress or discomfort. His nurse reports that he has been talkative with her and yesterday was speaking in complete senescences, his oral intake has also been improving. His urine appears cloudy/purulent, will order UA. Due to pts anemia, will limit CBCs to twice weekly. (Subha Nation MD R2) Objective Vitals Vital Signs Date Time Temp Pulse Resp B/P Pulse Ox O2 Delivery O2 Flow Rate FiO2 08/16/16 08:00 98.2 77 16 115/76 97 08/16/16 00:00 96.0 82 19 107/70 97 08/15/16 20:00 98.8 80 21 108/64 97 08/15/16 16:00 98.3 82 16 91/65 99 08/15/16 12:00 97.4 84 18 95/60 99 I/O 08/15/16 08/15/16 08/15/16 08/16/16 08/16/16 08/16/16 07:00 15:00 23:00 07:00 15:00 23:00 Intake Total 490 ml 997 ml 523 ml 694 ml Output Total 600 ml 575.0 ml 300 ml 350 ml Balance -110 ml 422.0 ml 223 ml 344 ml Intake Oral 120 ml 30 ml 240 ml IV Total 493 ml Tube Feeding 490 ml 477 ml 454 ml Other 400 ml Output Urine Total 600 ml 500 ml 300 ml 350 ml Tube Feeding Residual Discard 75.0 ml # Bowel Movements 0 0 0 (Subha Nation MD R2) Result Diagram: 08/16/16 0539 08/16/16 0539 Objective Remarks GEN: Thin, frail 61 y/o M in no acute distress. SKIN: Stage 3 decubitus sacral ulcer with small amount adherent fibrinous material. Good granulation tissue underneath. No active drainage. Bandage CDI. Erythematous scaly patch on lateral aspect of left upper thigh. Skin is dry. PEG tube site c/d/i without surrounding erythema CV: Regular rate and rhythm without obvious murmurs. LUNGS: Clear to anterior auscultation bilaterally. No wheezes, rales, rhonchi. GI: Soft, nondistended, nontender with +BS. EXT: No cyanosis or edema. No signs of tenderness to calf manipulation. NEURO/PSYCH: Patient not involved with history or examination. Communicates with "yes" or "no" at baseline. (Subha Nation MD R2) A/P Assessment and Plan 61 yo M, hx of prolonged hospital stay from September 2015 - July 18, 2016, having returned to the hospital on July 22 for fall. Admitted for AMS, rhabdomyolysis , dehydration, hypernatremia and anemia. PEG tube has been placed due to decreased PO intake and dehydration. He is tolerating tube feeds. Patient is medically cleared for discharge; however is awaiting SNF placement. Discharge Planning Discharge pending DCF clearance for placement into rehab. CM is on board to assist with d/c plans. They plan to touch base with DCF today. w/d/w Dr. Austin (Subha Nation MD R2) Attending Attestation Patient examined and case discussed with resident physician I have read the above note and agree with the assessment/plan as discussed with me I was involved in all medical decision making for this patient Abiodun Austin M.D. (Abiodun Austin MD) Problem List: (1) UTI (urinary tract infection) Status: Acute Plan: Pt with hazy purulent urine on exam. UA ordered. UA significant for hazy appearance, 30 protein, small occult blood, positive nitrites, large leukocyte esterase, many white blood cell clumps, moderate bacteria. Culture indicated We'll start Rocephin 1 g IV Daily (2) Encounter for dietary counseling and surveillance Status: Acute Plan: Patient with inadequate/poor oral intake of fluids and solids since admission. Speech recommended full liquid diet with thickened liquids of nectar consistency. However patient has been refusing to eat. PEG tube placed on 08/08 given insufficient oral intake and nutrition. Tolerating TFs, up to 60ml/hr -GI on board, appreciate recommendations and intervention: * Continue TF per dietary, see below * Protonix 40mg PO Daily * Ferrous Sulfate 325 mg PO Daily * H/H stable, continue to monitor Dietary consulted, appreciate recommendations * Patient w/history of DM and CKD III-IV; therefore, Rec tube feeding w/Suplena , start @ 30ml/hr, increase 10ml Q4hr, as tolerated to goal rate 60ml/hr PLUS Beneprotein packet 3 times a day. Mix 1-pkt Beneprotein w/2-4oz water, stir until dissolved and administer by syringe through PEG tube. Suplena @ goal rate and Beneprotein tid to offer 2667 kcal, 82.8g Protein and 1063ml free water. * Free Water Flushes 200mL QID. Rec Cesar packet bid for wound healing(mix 1-packet Cesar w/8-10oz water, until dissolved, and administer by syringe through PEG tube). Labs reviewed-monitor renal labs closely. Additional Recs to follow r/t clinical course. (3) Decubitus ulcer, stage 3 Status: Acute Plan: Patient with large decubitus ulcer over lower back; appears to be healing with good granulation tissue -Wound care consulted, appreciate recommendations * Collagenase ointment to be applied daily * Wound dressing changes daily per RN (4) Anemia Status: Chronic Plan: Hx of anemia; likely secondary to anemia of chronic disease. Baseline Hg 9-10; likly ACD. Hb currently stable. Team will transfuse with hemoglobin is <7. -Continue PO Fe supplementation -FOBT positive GI consulted: appreciate recommendations See medications above EGD/colonoscopy performed 08/05 revealed internal hemorrhoids, small internal hemorrhoids, external hemorrhoids. However limited due to poor bowel prep Discussed case with Dr. Calderon. Initially plan was to repeat colonoscopy on 08/08; however patient has been unable to tolerate colon prep even with NGT. No urgency to repeat colonoscopy during this hospitalization. Given poor po intake, PEG tube placement on 08/08. Will defer repeat colonoscopy until patient is more clinically stable. Hematology Consulted: * Please see plan as below (5) Qcmpc-ns-irroyeh kidney injury Status: Acute Plan: Baseline GFR 50s. Renal function improving, stable. -Avoid nephrotoxic meds -Closely monitor I&O -Renal US: unremarkable Consult nephrology: appreciate recommendations * Monoclonal protein detected on serum RUDY * [place]/lambda ratio elevated. * Continue cholecalciferol Hematology consulted: appreciate recommendations. * Pt given 20,000 units of Epogen x1 on 08/16 * 1 Unit PRBC for anemia on 08/02, posttransfusion H/H 8.09/22 * Procrit 20K x1 given on 08/09 (1 unit given on 08/02) * Likely monoclonal gammopathy of undetermined significance (MGUS) * Recheck immune globulins once acute issues have resolved * Skeletal survey: Unremarkable study with median sternotomy and multiple gallstones noted. (6) Altered mental status Status: Resolved Plan: Found to hypernatremic on admission as well as acute on chronic PAT. Electrolyte abnormality and azotemia likely contributed to presentation. Hypernatremia and azotemia from initial dehydration resolved from a high of 160. Baseline mental status is unclear but pt does appear to have had multiple ischemic strokes in the past including lacunar infarcts 10/20/15. Pt now appears to be at baseline. -Negative UA and tox screen. -Ammonia, lactic acid WNL -Consider Seroquel if patient becomes agitated. Currently not needed Imaging: * CXR: unremarkable * Head CT negative for acute process. Consistent with chronic change. (7) Chronic systolic (congestive) heart failure Status: Chronic Plan: Patient with hx of CHF, EF 35% from September 2015. Not currently appearing to be fluid overloaded. -Closely monitor I&O's (8) Coronary artery disease Status: Chronic Plan: -Coreg 12.5 mg po bid -Eliquis -Atorvastatin 80 mg po hs -Isosorbide Mononitrate 60 mg po hs (9) HTN (hypertension) Status: Chronic Plan: Continue Amlodipine 10 mg po daily -Hold for SBP <110 (10) Low vitamin D level Status: Acute Plan: Vitamin D low at 11.6. -Cholecalciferol 2000 units po Daily -Calcium carbonate 500 mg BID as calcium has been low -Ergocalciferol 50,000 units x1 on 08/12 (11) Diabetes mellitus Status: Chronic Plan: A1C 6.9 on 11/25/15, not currently on DM meds Serum glucose levels within normal limits, no significant elevations Continue to monitor (12) Nutrition, metabolism, and development symptoms Status: Acute Plan: Fluids/Diet: Tube feeds with tray Electrolytes: Continue to monitor, Calcium low at 7.8, pt was given additional dose of Calcium carbonate 500mg po x1 DVT PPX: Eliquis GI PPX: Protonix (Subha Nation MD R2) Problem Qualifiers (1) Anemia: Qualified Code: D50.8 - Other iron deficiency anemia (2) Altered mental status: Qualified Code: R41.82 - Altered mental status, unspecified altered mental status type (3) Coronary artery disease: Qualified Code: I25.10 - Coronary artery disease involving lummi heart without angina pectoris, unspecified vessel or lesion type (4) HTN (hypertension): Qualified Code: I10 - Essential hypertension (5) Diabetes mellitus: Qualified Code: E11.51 - Type 2 diabetes mellitus with diabetic peripheral angiopathy without gangrene, without long-term current use of insulin Subha Nation MD R2 Aug 16, 2016 09:01 Abiodun Austin MD Aug 16, 2016 16:08
[2016-08-16] MEDS: CALCIUM CARBONATE 500 MG CHEWABLE TAB CHEW SCH ×2 (09:07→19:49)
[2016-08-16] MEDS: APIXABAN 2.5 MG TABLET PO SCH ×2 (09:08→19:48)
[2016-08-16] MEDS: CARVEDILOL 12.5 MG TAB PO SCH ×2 (09:08→19:49)
[2016-08-16] MEDS: CHOLECALCIFEROL (VIT D3) 1000 UNIT TAB PO SCH (09:08)
[2016-08-16] MEDS: PANTOPRAZOLE SOD 40 MG DELAYED RELEASE TAB PO SCH (09:08)
[2016-08-16] MEDS: FERROUS SULFATE 325 MG (65 MG ELEMENTAL IRON) TAB PO SCH (09:08)
[2016-08-16] MEDS: SODIUM CHLORIDE 0.9% FLUSH 10 ML FLUSH IV FLUSH SCH ×2 (09:09→19:49)
[2016-08-16] MEDS: COLLAGENASE OINT 30 GM TUBE TOPICAL SCH (09:09)
[2016-08-16 10:15] LABS: BACTERIA, URINE MOD /hpf; BLOOD, URINE SMALL (NEG); COMMENT (UR) CULTURE INDICATED; CULTURE IF INDICATED CULTURE INDICATED; GLUCOSE,URINE NEG (NEG); KETONE, URINE NEG (NEG); PH, URINE 5.5 (5.0-8.5); SQUAMOUS EPITHELIAL CELL URINE 8 /hpf (0-5); URINE COLOR LIGHT-YELLOW (YELLW/STRAW)
[2016-08-16 10:16] LABS: NITRITE,URINE POS (NEG)
--- NOTE | 2016-08-16 10:18 | PD.ONC.PN ---
Subjective Subjective Remarks Afebrile overnight. Patient resting comfortably without complaint. Objective Data Date Time Temp Pulse Resp B/P Pulse Ox O2 Delivery O2 Flow Rate FiO2 08/16/16 08:00 98.2 77 16 115/76 97 08/16/16 00:00 96.0 82 19 107/70 97 08/15/16 20:00 98.8 80 21 108/64 97 08/15/16 16:00 98.3 82 16 91/65 99 08/15/16 12:00 97.4 84 18 95/60 99 08/16/16 08/16/16 08/16/16 07:00 15:00 23:00 Intake Total 694 ml Output Total 350 ml Balance 344 ml Result Diagram: 08/16/16 0539 08/16/16 0539 Laboratory Results Laboratory Tests Test 08/16/16 05:39 White Blood Count 9.0 TH/MM3 Red Blood Count 2.99 MIL/MM3 Hemoglobin 8.3 GM/DL Hematocrit 24.1 % Mean Corpuscular Volume 80.6 FL Mean Corpuscular Hemoglobin 27.7 PG Mean Corpuscular Hemoglobin 34.3 % Concent Red Cell Distribution Width 17.0 % Platelet Count 261 TH/MM3 Mean Platelet Volume 7.0 FL Neutrophils (%) (Auto) 74.4 % Lymphocytes (%) (Auto) 12.4 % Monocytes (%) (Auto) 9.2 % Eosinophils (%) (Auto) 3.4 % Basophils (%) (Auto) 0.6 % Neutrophils # (Auto) 6.7 TH/MM3 Lymphocytes # (Auto) 1.1 TH/MM3 Monocytes # (Auto) 0.8 TH/MM3 Eosinophils # (Auto) 0.3 TH/MM3 Basophils # (Auto) 0.1 TH/MM3 CBC Comment DIFF FINAL Differential Comment Sodium Level 142 MEQ/L Potassium Level 3.5 MEQ/L Chloride Level 107 MEQ/L Carbon Dioxide Level 26.2 MEQ/L Anion Gap 9 MEQ/L Blood Urea Nitrogen 20 MG/DL Creatinine 1.53 MG/DL Estimat Glomerular Filtration 47 ML/MIN Rate Random Glucose 115 MG/DL Calcium Level 7.8 MG/DL Magnesium Level 1.8 MG/DL Administered Medications Medications (Trade) Dose Ordered Sig/Estuardo Route PRN Reason Start Time Stop Time Status Last Admin Dose Admin Apixaban (Eliquis) 2.5 mg BID PO 07/25/16 21:00 08/16/16 09:08 Atorvastatin Calcium (Lipitor) 80 mg HS PO 07/25/16 21:00 08/15/16 21:20 Carvedilol (Coreg) 25 mg BID PO 07/25/16 21:00 08/16/16 09:08 Ferrous Sulfate (Ferrous Sulfate) 325 mg DAILY@08 PO 07/26/16 08:00 08/16/16 09:08 Isosorbide Mononitrate (Imdur) 60 mg HS PO 07/25/16 21:00 08/15/16 21:20 Sodium Chloride (NS Flush) 2 ml BID IV FLUSH 07/25/16 21:00 08/16/16 09:09 Amlodipine Besylate (Norvasc) 10 mg DAILY PO 07/28/16 09:00 08/16/16 09:08 Cholecalciferol (Vitamin D3) 2,000 units DAILY PO 07/28/16 09:00 08/16/16 09:08 Pantoprazole Sodium (Protonix) 40 mg DAILY PO 07/31/16 12:00 08/16/16 09:08 Mirtazapine (Remeron) 15 mg HS PO 08/03/16 21:00 08/15/16 21:20 Collagenase (Santyl Oint) 1 applic DAILY TOPICAL 08/04/16 14:30 08/16/16 09:09 Water (Free Water) 200 ml Q4HR G-TUBE 08/10/16 20:00 08/16/16 08:00 Calcium Carbonate (Tums Chew) 500 mg Q12HR CHEW 08/12/16 09:00 08/16/16 09:07 Objective Remarks GENERAL: Elderly male, supine in bed in nad. SKIN: Warm and dry. HEAD: Normocephalic. EYES: No injection or drainage. NECK: Supple, trachea midline. CARDIOVASCULAR: Regular rate and rhythm RESPIRATORY: Breath sounds equal bilaterally. No accessory muscle use. GASTROINTESTINAL: Abdomen soft, non-tender, nondistended. EXTREMITIES: No cyanosis, or edema. s/p BKA, left leg. NEUROLOGICAL: awake. follows commands. answers questions yes or no. Assessment/Plan Problem List: (1) Monoclonal gammopathy Status: Acute Plan: -- Consistent with monoclonal gammopathy of undetermined significance ( MGUS) -- M-spike is 0.26 --Urine RUDY no monoclonal protein. (2) Anemia Status: Chronic Plan: -- due anemia of chronic renal disease --08/02--> s/p Procrit 20K units + 1 unit pRBC on 08/02 --08/09-->procrit 20K units --08/16-->Procrit 20K units Assessment 61 y/o male who was brought in by [facility] after DCF found him at home unable to care for himself. Plan 1. recommend twice weekly CBC at this point, to avoid iatrogenic blood loss 2. Procrit 20K units today Attending Statement The exam, history, and the medical decision-making described in the above note were completed with the assistance of the mid-level provider. I reviewed and agree with the findings presented. I attest that I had a [id number] encounter with the patient on the same day, and personally performed and documented my assessment and findings in the medical record. Still weak. No bleeding noted. Hgb 8.3, will give another Epogen today. Problem Qualifiers (1) Anemia: Qualified Code: D50.8 - Other iron deficiency anemia Chrissy Cannon Aug 16, 2016 10:18 Andrzej De Los Santos MD Aug 16, 2016 14:22
[2016-08-16 12:00] VITALS: BP 109/72; PULSE 79; RESP 17; TEMP 97.3; O2SAT 98
[2016-08-16 16:00] VITALS: BP 97/55; PULSE 84; RESP 16; TEMP 97.3; O2SAT 97
[2016-08-16] MEDS: cefTRIAXone INJ 1,000 MG in SODIUM CHLORIDE 0.9% INJ 100 ML IV SCH (17:34)
[2016-08-16] MEDS: MIRTAZAPINE 15 MG TAB PO SCH (19:48)
[2016-08-16] MEDS: ISOSORBIDE MONONITRATE 60 MG TAB PO SCH (19:48)
[2016-08-16] MEDS: ATORVASTATIN 80 MG TAB PO SCH (19:48)
[2016-08-16 20:00] VITALS: BP 110/63; PULSE 88; RESP 20; TEMP 97.9; O2SAT 94
[2016-08-17] VITALS (7 sets, daily range): BP systolic 100–121; BP diastolic 56–76; PULSE 82–93; RESP 16–19; TEMP 96–98.8; O2SAT 93–98
[2016-08-17] MEDS: FREE WATER G-TUBE SCH ×6 (04:00→20:00)
[2016-08-17] MEDS: COLLAGENASE OINT 30 GM TUBE TOPICAL SCH (09:00)
[2016-08-17] MEDS: SODIUM CHLORIDE 0.9% FLUSH 10 ML FLUSH IV FLUSH SCH ×2 (09:21→20:37)
[2016-08-17] MEDS: PANTOPRAZOLE SOD 40 MG DELAYED RELEASE TAB PO SCH (09:21)
[2016-08-17] MEDS: CARVEDILOL 12.5 MG TAB PO SCH ×2 (09:21→20:37)
[2016-08-17] MEDS: CALCIUM CARBONATE 500 MG CHEWABLE TAB CHEW SCH ×2 (09:21→20:37)
[2016-08-17] MEDS: FERROUS SULFATE 325 MG (65 MG ELEMENTAL IRON) TAB PO SCH (09:21)
[2016-08-17] MEDS: CHOLECALCIFEROL (VIT D3) 1000 UNIT TAB PO SCH (09:21)
[2016-08-17] MEDS: APIXABAN 2.5 MG TABLET PO SCH ×2 (09:21→20:37)
--- NOTE | 2016-08-17 10:01 | HHI.FPPN ---
Subjective Remarks Patient seen and examined this morning. No acute events and vitals within normal limits overnight. Patient again has limited interaction during interview. He does report that he is in no pain, but otherwise does not participate in the interview. Currently patient is waiting on financial approval by [facility] for discharge to SNF, per case management. (Nate Avalos MD R1) Objective Vitals Vital Signs Date Time Temp Pulse Resp B/P Pulse Ox O2 Delivery O2 Flow Rate FiO2 08/17/16 07:58 96.1 83 17 109/68 96 08/17/16 00:00 98.4 82 19 102/62 93 08/16/16 20:00 97.9 88 20 110/63 94 08/16/16 16:00 97.3 84 16 97/55 97 08/16/16 12:00 97.3 79 17 109/72 98 I/O 08/16/16 08/16/16 08/16/16 08/17/16 08/17/16 08/17/16 07:00 15:00 23:00 07:00 15:00 23:00 Intake Total 694 ml 1461 ml 516 ml 698 ml Output Total 350 ml 360.0 ml 300 ml 300 ml Balance 344 ml 1101.0 ml 216 ml 398 ml Intake Oral 240 ml 720 ml 30 ml 30 ml Tube Feeding 454 ml 541 ml 486 ml 68 ml Other 200 ml 600 ml Output Urine Total 350 ml 350 ml 300 ml 300 ml Tube Feeding Residual Discard 10.0 ml # Voids 2 # Bowel Movements 0 0 0 0 (Nate Avalos MD R1) Result Diagram: 08/16/16 0539 08/16/1639 Objective Remarks GEN: Thin, frail 61 y/o M in no acute distress. SKIN: Stage 3 decubitus sacral ulcer with small amount adherent fibrinous material. Good granulation tissue underneath. No active drainage. Bandage CDI. Erythematous scaly patch on lateral aspect of left upper thigh. Skin is dry. PEG tube site CDI without surrounding erythema, currently under abdominal binder. CV: Regular rate and rhythm without obvious murmurs. LUNGS: Clear to anterior auscultation bilaterally. No wheezes, rales, rhonchi. GI: Soft, nondistended, nontender with +BS. Abdominal binder in place. EXT: No cyanosis or edema. No signs of tenderness to calf manipulation. NEURO/PSYCH: Patient not involved with history or examination. Communicates with "yes" or "no" at baseline. (Nate Avalos MD R1) A/P Assessment and Plan 61 yo M, hx of prolonged hospital stay from September 2015 - July 18, 2016, having returned to the hospital on July 22 for fall. Admitted for AMS, rhabdomyolysis , dehydration, hypernatremia and anemia. PEG tube has been placed due to decreased PO intake and dehydration. He is tolerating tube feeds. Patient is medically cleared for discharge; however is awaiting SNF placement. Discharge Planning Discharge pending DCF clearance for placement into rehab. CM is on board to assist with d/c plans. They plan to touch base with DCF today. w/d/w Dr. Austin (Nate Avalos MD R1) Attending Attestation Patient examined and case discussed with resident physician I have read the above note and agree with the assessment/plan as discussed with me I was involved in all medical decision making for this patient Abiodun Austin M.D. (Abiodun Austin MD) Problem List: (1) UTI (urinary tract infection) Status: Acute Plan: Pt with hazy purulent urine on exam. UA ordered. UA significant for hazy appearance, 30 protein, small occult blood, positive nitrites, large leukocyte esterase, many white blood cell clumps, moderate bacteria. Urine culture: Pending Continue Rocephin 1 g IV Daily (08/16- ) (2) Encounter for dietary counseling and surveillance Status: Acute Plan: Patient with inadequate/poor oral intake of fluids and solids since admission. Speech recommended full liquid diet with thickened liquids of nectar consistency. However patient has been refusing to eat. PEG tube placed on 08/08 given insufficient oral intake and nutrition. Tolerating TFs, up to 60ml/hr -GI on board, appreciate recommendations and intervention: * Continue TF per dietary, see below * Protonix 40mg PO Daily * Ferrous Sulfate 325 mg PO Daily * H/H stable, continue to monitor Dietary consulted, appreciate recommendations * Patient w/history of DM and CKD III-IV; therefore, Rec tube feeding w/Suplena , start @ 30ml/hr, increase 10ml Q4hr, as tolerated to goal rate 60ml/hr PLUS Beneprotein packet 3 times a day. Mix 1-pkt Beneprotein w/2-4oz water, stir until dissolved and administer by syringe through PEG tube. Suplena @ goal rate and Beneprotein tid to offer 2667 kcal, 82.8g Protein and 1063ml free water. * Free Water Flushes 200mL QID. Rec Cesar packet bid for wound healing(mix 1-packet Cesar w/8-10oz water, until dissolved, and administer by syringe through PEG tube). Labs reviewed-monitor renal labs closely. Additional Recs to follow r/t clinical course. (3) Decubitus ulcer, stage 3 Status: Acute Plan: Patient with large decubitus ulcer over lower back; appears to be healing with good granulation tissue -Wound care consulted, appreciate recommendations * Collagenase ointment to be applied daily * Wound dressing changes daily per RN (4) Anemia Status: Chronic Plan: Hx of anemia; likely secondary to anemia of chronic disease. Baseline Hg 9-10; likly ACD. Hb currently stable. Team will transfuse with hemoglobin is <7. -Continue PO Fe supplementation -FOBT positive GI consulted: appreciate recommendations See medications above EGD/colonoscopy performed 08/05 revealed internal hemorrhoids, small internal hemorrhoids, external hemorrhoids. However limited due to poor bowel prep Discussed case with Dr. Calderon. Initially plan was to repeat colonoscopy on 08/08; however patient has been unable to tolerate colon prep even with NGT. No urgency to repeat colonoscopy during this hospitalization. Given poor po intake, PEG tube placement on 08/08. Will defer repeat colonoscopy until patient is more clinically stable. Hematology Consulted: * Please see plan as below (5) [id number] kidney injury Status: Acute Plan: Baseline GFR 50s. Renal function improving, stable. -Avoid nephrotoxic meds -Closely monitor I&O -Renal US: unremarkable Consult nephrology: appreciate recommendations * Monoclonal protein detected on serum RUDY * [place]/lambda ratio elevated. * Continue cholecalciferol Hematology consulted: appreciate recommendations. * Pt given 20,000 units of Epogen x1 on 08/16 * 1 Unit PRBC for anemia on 08/02, posttransfusion H/H 8.09/22 * Procrit 20K x1 given on 08/09 (1 unit given on 08/02) * Likely monoclonal gammopathy of undetermined significance (MGUS) * Recheck immune globulins once acute issues have resolved * Skeletal survey: Unremarkable study with median sternotomy and multiple gallstones noted. (6) Altered mental status Status: Resolved Plan: Found to hypernatremic on admission as well as acute on chronic PAT. Electrolyte abnormality and azotemia likely contributed to presentation. Hypernatremia and azotemia from initial dehydration resolved from a high of 160. Baseline mental status is unclear but pt does appear to have had multiple ischemic strokes in the past including lacunar infarcts 10/20/15. Pt now appears to be at baseline. -Negative UA and tox screen. -Ammonia, lactic acid WNL -Consider Seroquel if patient becomes agitated. Currently not needed Imaging: * CXR: unremarkable * Head CT negative for acute process. Consistent with chronic change. (7) Chronic systolic (congestive) heart failure Status: Chronic Plan: Patient with hx of CHF, EF 35% from September 2015. Not currently appearing to be fluid overloaded. -Closely monitor I&O's (8) Coronary artery disease Status: Chronic Plan: -Coreg 12.5 mg po bid -Eliquis -Atorvastatin 80 mg po hs -Isosorbide Mononitrate 60 mg po hs (9) HTN (hypertension) Status: Chronic Plan: Continue Amlodipine 10 mg po daily -Hold for SBP <110 (10) Low vitamin D level Status: Acute Plan: Vitamin D low at 11.6. -Cholecalciferol 2000 units po Daily -Calcium carbonate 500 mg BID as calcium has been low -Ergocalciferol 50,000 units x1 on 08/12 (11) Diabetes mellitus Status: Chronic Plan: A1C 6.9 on 11/25/15, not currently on DM meds Serum glucose levels within normal limits, no significant elevations Continue to monitor (12) Nutrition, metabolism, and development symptoms Status: Acute Plan: Fluids/Diet: Tube feeds with tray Electrolytes: Continue to monitor, Calcium low at 7.8, pt was given additional dose of Calcium carbonate 500mg po x1 DVT PPX: Eliquis GI PPX: Protonix (Nate Avalos MD R1) Problem Qualifiers (1) Anemia: Qualified Code: D50.8 - Other iron deficiency anemia (2) Altered mental status: Qualified Code: R41.82 - Altered mental status, unspecified altered mental status type (3) Coronary artery disease: Qualified Code: I25.10 - Coronary artery disease involving [place] heart without angina pectoris, unspecified vessel or lesion type (4) HTN (hypertension): Qualified Code: I10 - Essential hypertension (5) Diabetes mellitus: Qualified Code: E11.51 - Type 2 diabetes mellitus with diabetic peripheral angiopathy without gangrene, without long-term current use of insulin Nate Avalos MD R1 Aug 17, 2016 10:00 Abiodun Austin MD Aug 17, 2016 16:46
--- NOTE | 2016-08-17 11:44 | HHI.PR ---
Addendum to Inpatient Note Addendum Reason: Additional Documentation Additional Information S: Medical team paged at approximately 1044 patient fall. Per nursing staff patient was placed in a stretcher chair and strapped inappropriately at approximately 1000 and was found down by staff at approximately 1030. Staff unaware of how long patient was down for. Nursing reports that the patient had moved the footboard and most likely slid down the chair and onto the floor feet first. Medical team to evaluate patient at approximately 1115. He states that he was up in the chair and slid to the floor hitting his backside first. He denies any loss of consciousness, pain, loss of sensation, or disorientation. O: GEN: Thin, frail 61 y/o M in no acute distress. SKIN: No signs of trauma or new hematoma. Stage 3 decubitus sacral ulcer with small amount adherent fibrinous material. Good granulation tissue underneath. No active drainage. Bandage CDI. Erythematous scaly patch on lateral aspect of left upper thigh. Skin is dry. PEG tube site CDI without surrounding erythema, currently without abdominal binder. CV: Regular rate and rhythm without obvious murmurs. LUNGS: Clear to anterior auscultation bilaterally. No wheezes, rales, rhonchi. GI: Soft, nondistended, nontender with +BS. Abdominal binder in not place. EXT: No cyanosis or edema. No signs of tenderness to calf manipulation. Currently denies any pain or trauma to his body. NEURO/PSYCH: Cranial nerves II through XII intact. All extremities neurovascularly intact. Patient AAO 2 (not oriented to time). Patient interactive in both examination and history which is an improvement from interview earlier in the day. A: 61 yo M, hx of prolonged hospital stay from September 2015 - July 18, 2016, having returned to the hospital on July 22 for fall. Admitted for AMS, rhabdomyolysis , dehydration, hypernatremia and anemia currently s/p fall. P: Physical exam: No signs of trauma or hematoma. Neurologically without deficit compared to baseline. Fall precautions ordered Neuro checks every hour for 4 hours, then neuro checks every 4 hours. Team to defer on imaging at this time as patient's physical exam remains unchanged. Repeat CBC to evaluate for possible bleeding as patient is anemic at baseline. Nate Avalos MD R1 Aug 17, 2016 11:44
[2016-08-17 12:49] LABS: HEMATOCRIT 23.7 % (39.0-51.0); MEAN CELL VOLUME 81.9 FL (80.0-100.0); MEAN CORPUSCULAR HEMOGLOBIN 27.4 PG (27.0-34.0); MEAN CORPUSCULAR HGB CONC 33.4 % (32.0-36.0); PLATELET COUNT 314 TH/MM3 (150-450); RED BLOOD COUNT 2.89 MIL/MM3 (4.50-5.90); REVIEW FLAG FINAL; WHITE BLOOD COUNT 10.1 TH/MM3 (4.0-11.0)
[2016-08-17] MEDS: cefTRIAXone INJ 1,000 MG in SODIUM CHLORIDE 0.9% INJ 100 ML IV SCH (17:53)
[2016-08-17] MEDS: ATORVASTATIN 80 MG TAB PO SCH (20:37)
[2016-08-17] MEDS: MIRTAZAPINE 15 MG TAB PO SCH (20:37)
[2016-08-17] MEDS: ISOSORBIDE MONONITRATE 60 MG TAB PO SCH (20:37)
[2016-08-18] VITALS: BP 109/71; PULSE 76; RESP 17; TEMP 97.4; O2SAT 98
[2016-08-18] MEDS: FREE WATER G-TUBE SCH ×7 (04:00→23:37)
[2016-08-18 08:00] VITALS: BP 123/75; PULSE 86; RESP 18; TEMP 96.9; O2SAT 97
--- NOTE | 2016-08-18 08:16 | HHI.FPPN ---
Subjective Remarks Pt seen and examined this morning. No acute events overnight. AFVSS. Pt reports feeling fine this morning. He denies chest pain, difficulty breathing, abdominal pain or any other pain. He is conversing in complete sentences and communicating appropriately. He requests his prosthesis, when asked why he needed this he replied "So I can get out of here". He reports feeling hungry and would like something to eat. Pts nurse reports that he has been doing well overall. (Subha Nation MD R2) Objective Vitals Vital Signs Date Time Temp Pulse Resp B/P Pulse Ox O2 Delivery O2 Flow Rate FiO2 08/18/16 00:00 97.4 76 17 109/71 98 08/17/16 20:00 98.8 82 17 115/70 98 08/17/16 16:00 98.2 82 17 102/56 96 08/17/16 12:00 97.4 93 16 100/61 96 08/17/16 10:30 96.0 84 17 121/76 96 I/O 08/17/16 08/17/16 08/17/16 08/18/16 08/18/16 08/18/16 07:00 15:00 23:00 07:00 15:00 23:00 Intake Total 698 ml 240 ml 1167 ml 1126 ml Output Total 300 ml 300 ml 600 ml Balance 398 ml -60 ml 567 ml 1126 ml Intake Oral 30 ml 240 ml 240 ml 240 ml Tube Feeding 68 ml 727 ml 486 ml Other 600 ml 200 ml 400 ml Output Urine Total 300 ml 300 ml 600 ml # Voids 2 2 # Bowel Movements 0 0 (Subha Nation MD R2) Result Diagram: 08/17/16 1233 08/16/16 0539 Objective Remarks GEN: Thin, frail 61 y/o M in no acute distress. SKIN: Stage 3 decubitus sacral ulcer with small amount adherent fibrinous material. Good granulation tissue underneath. No active drainage. Bandage CDI. Erythematous scaly patch on lateral aspect of left upper thigh. Skin is dry. PEG tube site CDI without surrounding erythema, currently under abdominal binder. CV: Regular rate and rhythm without obvious murmurs. LUNGS: Clear to anterior auscultation bilaterally. No wheezes, rales, rhonchi. GI: Soft, nondistended, nontender with +BS. EXT: No cyanosis or edema. No signs of tenderness to calf manipulation. NEURO/PSYCH: Patient communicating appropriately in complete sentences. ( Subha Nation MD R2) A/P Assessment and Plan 61 yo M, hx of prolonged hospital stay from September 2015 - July 18, 2016, having returned to the hospital on July 22 for fall. Admitted for AMS, rhabdomyolysis , dehydration, hypernatremia and anemia. PEG tube has been placed due to decreased PO intake and dehydration. He is tolerating tube feeds. Patient is medically cleared for discharge; however is awaiting SNF placement. Discharge Planning Discharge pending DCF clearance for placement into rehab. CM is on board to assist with d/c plans. They plan to touch base with DCF today. w/d/w Dr. Austin (Subha Nation MD R2) Attending Attestation Pt. examined and case discussed with resident physicians I have read the above note and agree with the assessment/plan as discussed with me I was involved in all medical decision making for this patient Abiodun Austin MD (Abiodun Austin MD) Problem List: (1) UTI (urinary tract infection) Status: Acute Plan: Pt with hazy purulent urine on exam. UA ordered. UA significant for hazy appearance, 30 protein, small occult blood, positive nitrites, large leukocyte esterase, many white blood cell clumps, moderate bacteria. Urine culture: Preliminary result: Gram negative rods Continue Rocephin 1 g IV Daily (08/16- ) (2) Encounter for dietary counseling and surveillance Status: Acute Plan: Patient with inadequate/poor oral intake of fluids and solids since admission. Speech recommended full liquid diet with thickened liquids of nectar consistency. However patient has been refusing to eat. PEG tube placed on 08/08 given insufficient oral intake and nutrition. Tolerating TFs, up to 60ml/hr -GI on board, appreciate recommendations and intervention: * Continue TF per dietary, see below * Protonix 40mg PO Daily * Ferrous Sulfate 325 mg PO Daily * H/H stable, continue to monitor Dietary consulted, appreciate recommendations * Patient w/history of DM and CKD III-IV; therefore, Rec tube feeding w/Suplena , start @ 30ml/hr, increase 10ml Q4hr, as tolerated to goal rate 60ml/hr PLUS Beneprotein packet 3 times a day. Mix 1-pkt Beneprotein w/2-4oz water, stir until dissolved and administer by syringe through PEG tube. Suplena @ goal rate and Beneprotein tid to offer 2667 kcal, 82.8g Protein and 1063ml free water. * Free Water Flushes 200mL QID. Rec Cesar packet bid for wound healing(mix 1-packet Cesar w/8-10oz water, until dissolved, and administer by syringe through PEG tube). Labs reviewed-monitor renal labs closely. Additional Recs to follow r/t clinical course. (3) Decubitus ulcer, stage 3 Status: Acute Plan: Patient with large decubitus ulcer over lower back; appears to be healing with good granulation tissue -Wound care consulted, appreciate recommendations * Collagenase ointment to be applied daily * Wound dressing changes daily per RN (4) Anemia Status: Chronic Plan: Hx of anemia; likely secondary to anemia of chronic disease. Baseline Hg 9-10; likly ACD. Hb currently stable. Team will transfuse with hemoglobin is <7. -Continue PO Fe supplementation -FOBT positive GI consulted: appreciate recommendations See medications above EGD/colonoscopy performed 08/05 revealed internal hemorrhoids, small internal hemorrhoids, external hemorrhoids. However limited due to poor bowel prep Discussed case with Dr. Calderon. Initially plan was to repeat colonoscopy on 08/08; however patient has been unable to tolerate colon prep even with NGT. No urgency to repeat colonoscopy during this hospitalization. Given poor po intake, PEG tube placement on 08/08. Will defer repeat colonoscopy until patient is more clinically stable. Hematology Consulted: * Please see plan as below (5) Npnhi-[id number] kidney injury Status: Acute Plan: Baseline GFR 50s. Renal function improving, stable. -Avoid nephrotoxic meds -Closely monitor I&O -Renal US: unremarkable Consult nephrology: appreciate recommendations * Monoclonal protein detected on serum RUDY * [place]/lambda ratio elevated. * Continue cholecalciferol Hematology consulted: appreciate recommendations. * Pt given 20,000 units of Epogen x1 on 08/16 * 1 Unit PRBC for anemia on 08/02, posttransfusion H/H 8.09/22 * Procrit 20K x1 given on 08/09 (1 unit given on 08/02) * Likely monoclonal gammopathy of undetermined significance (MGUS) * Recheck immune globulins once acute issues have resolved * Skeletal survey: Unremarkable study with median sternotomy and multiple gallstones noted. (6) Altered mental status Status: Resolved Plan: Found to hypernatremic on admission as well as acute on chronic PAT. Electrolyte abnormality and azotemia likely contributed to presentation. Hypernatremia and azotemia from initial dehydration resolved from a high of 160. Baseline mental status is unclear but pt does appear to have had multiple ischemic strokes in the past including lacunar infarcts 10/20/15. Pt now appears to be at baseline. -Negative UA and tox screen. -Ammonia, lactic acid WNL -Consider Seroquel if patient becomes agitated. Currently not needed Imaging: * CXR: unremarkable * Head CT negative for acute process. Consistent with chronic change. (7) Chronic systolic (congestive) heart failure Status: Chronic Plan: Patient with hx of CHF, EF 35% from September 2015. Not currently appearing to be fluid overloaded. -Closely monitor I&O's (8) Coronary artery disease Status: Chronic Plan: -Coreg 12.5 mg po bid -Eliquis -Atorvastatin 80 mg po hs -Isosorbide Mononitrate 60 mg po hs (9) HTN (hypertension) Status: Chronic Plan: Continue Amlodipine 10 mg po daily -Hold for SBP <110 (10) Low vitamin D level Status: Acute Plan: Vitamin D low at 11.6. -Cholecalciferol 2000 units po Daily -Calcium carbonate 500 mg BID as calcium has been low -Ergocalciferol 50,000 units x1 on 08/12 (11) Diabetes mellitus Status: Chronic Plan: A1C 6.9 on 11/25/15, not currently on DM meds Serum glucose levels within normal limits, no significant elevations Continue to monitor (12) Nutrition, metabolism, and development symptoms Status: Acute Plan: Fluids/Diet: Tube feeds with tray Electrolytes: Continue to monitor, replete as needed. DVT PPX: Eliquis GI PPX: Protonix (Subha Nation MD R2) Problem Qualifiers (1) Anemia: Qualified Code: D50.8 - Other iron deficiency anemia (2) Altered mental status: Qualified Code: R41.82 - Altered mental status, unspecified altered mental status type (3) Coronary artery disease: Qualified Code: I25.10 - Coronary artery disease involving [place] heart without angina pectoris, unspecified vessel or lesion type (4) HTN (hypertension): Qualified Code: I10 - Essential hypertension (5) Diabetes mellitus: Qualified Code: E11.51 - Type 2 diabetes mellitus with diabetic peripheral angiopathy without gangrene, without long-term current use of insulin Subha Nation MD R2 Aug 18, 2016 08:16 Abiodun Austin MD Aug 18, 2016 09:55
[2016-08-18] MEDS: COLLAGENASE OINT 30 GM TUBE TOPICAL SCH (09:00)
[2016-08-18] MEDS: APIXABAN 2.5 MG TABLET PO SCH ×2 (09:58→20:41)
[2016-08-18] MEDS: CALCIUM CARBONATE 500 MG CHEWABLE TAB CHEW SCH ×2 (09:58→20:41)
[2016-08-18] MEDS: CHOLECALCIFEROL (VIT D3) 1000 UNIT TAB PO SCH (09:59)
[2016-08-18] MEDS: CARVEDILOL 12.5 MG TAB PO SCH ×2 (09:59→20:41)
[2016-08-18] MEDS: PANTOPRAZOLE SOD 40 MG DELAYED RELEASE TAB PO SCH (09:59)
[2016-08-18] MEDS: SODIUM CHLORIDE 0.9% FLUSH 10 ML FLUSH IV FLUSH SCH ×2 (09:59→20:42)
[2016-08-18] MEDS: FERROUS SULFATE 325 MG (65 MG ELEMENTAL IRON) TAB PO SCH (10:01)
[2016-08-18 12:00] VITALS: BP 95/59; PULSE 80; RESP 19; TEMP 98; O2SAT 95
[2016-08-18 16:00] VITALS: BP 108/69; PULSE 89; RESP 18; TEMP 98.4; O2SAT 95
[2016-08-18] MEDS: cefTRIAXone INJ 1,000 MG in SODIUM CHLORIDE 0.9% INJ 100 ML IV SCH (16:30)
[2016-08-18 20:00] VITALS: BP 116/80; PULSE 103; RESP 17; TEMP 97.4; O2SAT 93
[2016-08-18] MEDS: MIRTAZAPINE 15 MG TAB PO SCH (20:41)
[2016-08-18] MEDS: ISOSORBIDE MONONITRATE 60 MG TAB PO SCH (20:41)
[2016-08-18] MEDS: ATORVASTATIN 80 MG TAB PO SCH (20:41)
[2016-08-18 21:48] LABS: BACTERIA, URINE MANY /hpf; BLOOD, URINE SMALL (NEG); COMMENT (UR) CULTURE INDICATED; CULTURE IF INDICATED CULTURE INDICATED; GLUCOSE,URINE NEG (NEG); KETONE, URINE NEG (NEG); MUCUS URINE MANY /lpf (OCC); NITRITE,URINE POS (NEG); SQUAMOUS EPITHELIAL CELL URINE 2 /hpf (0-5); URINE COLOR YELLOW (YELLW/STRAW)
[2016-08-19] VITALS: BP 104/76; PULSE 89; RESP 17; TEMP 97; O2SAT 94
[2016-08-19] MEDS: COLLAGENASE OINT 30 GM TUBE TOPICAL SCH (03:09)
[2016-08-19] MEDS: FREE WATER G-TUBE SCH ×5 (04:00→20:00)
[2016-08-19 08:00] VITALS: BP_SYST 136; BP_SYST 16; BP_DIAS 71; BP_DIAS 95; PULSE 79; PULSE 96; RESP 16; RESP 17; TEMP 96.3; TEMP 99; O2SAT 100; O2SAT 95
[2016-08-19] MEDS: CHOLECALCIFEROL (VIT D3) 1000 UNIT TAB PO SCH (09:45)
[2016-08-19] MEDS: APIXABAN 2.5 MG TABLET PO SCH ×2 (09:45→21:20)
[2016-08-19] MEDS: CALCIUM CARBONATE 500 MG CHEWABLE TAB CHEW SCH ×2 (09:45→21:20)
[2016-08-19] MEDS: PANTOPRAZOLE SOD 40 MG DELAYED RELEASE TAB PO SCH (09:45)
[2016-08-19] MEDS: CARVEDILOL 12.5 MG TAB PO SCH ×2 (09:45→21:20)
[2016-08-19] MEDS: FERROUS SULFATE 325 MG (65 MG ELEMENTAL IRON) TAB PO SCH (09:45)
[2016-08-19] MEDS: SODIUM CHLORIDE 0.9% FLUSH 10 ML FLUSH IV FLUSH SCH ×2 (09:46→21:21)
[2016-08-19 12:00] VITALS: BP 97/63; PULSE 101; RESP 16; TEMP 97; O2SAT 92
--- NOTE | 2016-08-19 12:10 | HHI.FPPN ---
Subjective Remarks Patient seen and examined. MAGED overnight. Patient is more conversant this morning. Denies any specific complaints. (Bernice Vasquez MD R3) Objective Vitals Vital Signs Date Time Temp Pulse Resp B/P Pulse Ox O2 Delivery O2 Flow Rate FiO2 08/19/16 08:00 96.3 96 16 16/95 95 08/19/16 00:00 97.0 89 17 104/76 94 08/18/16 20:00 97.4 103 17 116/80 93 08/18/16 16:00 98.4 89 18 108/69 95 I/O 08/18/16 08/18/16 08/18/16 08/19/16 08/19/16 08/19/16 07:00 15:00 23:00 07:00 15:00 23:00 Intake Total 1126 ml 650 ml 1315 ml 1052 ml Output Total 250 ml Balance 1126 ml 650 ml 1065 ml 1052 ml Intake Oral 240 ml 250 ml 240 ml 240 ml Tube Feeding 486 ml 875 ml 412 ml Other 400 ml 400 ml 200 ml 400 ml Output Urine Total 250 ml # Voids 2 2 2 # Bowel Movements 0 2 (Bernice Vasquez MD R3) Result Diagram: 08/17/16 1233 08/16/16 0539 Imaging Bone Osseous Survey 07/31/16 0000 Signed Impressions: Service Date/Time: Sunday, July 31, 2016 16:09 - CONCLUSION: Unremarkable bone survey. Incidental note made of median sternotomy. Multiple gallstones. Richard Gerber MD Head CT 07/25/16 1644 Signed Impressions: Service Date/Time: Monday, July 25, 2016 17:19 - CONCLUSION: 1. Lacunar infarcts bilaterally, worse on the left. 2. Negative for an acute process. Didier Clay MD FACR Renal Ultrasound 07/25/16 0000 Signed Impressions: Service Date/Time: Monday, July 25, 2016 20:55 - CONCLUSION: 1. Tiny nonobstructing calcified left renal calculi. 2. No hydronephrosis or solid renal mass. Efren Cleaning MD Chest X-Ray 07/25/16 0000 Signed Impressions: Service Date/Time: Monday, July 25, 2016 19:36 - CONCLUSION: No acute disease. Efren Cleaning MD Objective Remarks GEN: Thin, frail 61 y/o M in no acute distress. SKIN: Stage 3 decubitus sacral ulcer with small amount adherent fibrinous material. Good granulation tissue underneath. No active drainage. Bandage CDI. Erythematous scaly patch on lateral aspect of left upper thigh. Skin is dry. PEG tube site CDI without surrounding erythema CV: Regular rate and rhythm without obvious murmurs. LUNGS: Clear to anterior auscultation bilaterally. No wheezes, rales, rhonchi. GI: Soft, nondistended, nontender with +BS. EXT: No cyanosis or edema. NEURO/PSYCH: Patient communicating appropriately in complete sentences. (Bernice Vasquez MD R3) A/P Assessment and Plan 61 yo M, hx of prolonged hospital stay from September 2015 - July 18, 2016, having returned to the hospital on July 22 for fall. Admitted for AMS, rhabdomyolysis , dehydration, hypernatremia and anemia. PEG tube has been placed due to decreased PO intake and dehydration. He is tolerating tube feeds. Patient is medically cleared for discharge; however is awaiting SNF placement and DCF clearance. Discharge Planning Discharge pending DCF clearance for placement into rehab. CM is on board to assist with d/c plans. Will touch base with CM regarding discharge status. d/w Dr. Austin (Bernice Vasquez MD R3) Attending Attestation Patient examined and case discussed with resident physician I have read the above note and agree with the assessment/plan as discussed with me I was involved in all medical decision making for this patient Abiodun Austin M.D. (Abiodun Austin MD) Problem List: (1) UTI (urinary tract infection) Status: Acute Plan: Pt with hazy purulent urine on exam yesterday. Repeat UA on 08/18 significant for hazy appearance, 30 protein, small occult blood, positive nitrites, large leukocyte esterase, many white blood cell clumps, moderate bacteria. Urine culture: Preliminary result: Gram negative rods Start Cefepime 1gm BID (08/19-) x 10 days Repeat UA in 48 hours History: Ucx 08/16: Pseudomonas aeruginosa, resistant to fluoroquinolone, gentamicin/ tobramycin but sensitive to Cefepime and Zosyn. Rocephin 1 g IV Daily (08/16-08/18 ) (2) Encounter for dietary counseling and surveillance Status: Acute Plan: Patient with inadequate/poor oral intake of fluids and solids since admission. Speech recommended full liquid diet with thickened liquids of nectar consistency. However patient has been refusing to eat. PEG tube placed on 08/08 given insufficient oral intake and nutrition. Tolerating TFs, up to 60ml/hr -GI on board, appreciate recommendations and intervention: * Continue TF per dietary, see below * Protonix 40mg PO Daily * Ferrous Sulfate 325 mg PO Daily Dietary consulted, appreciate recommendations * Patient w/history of DM and CKD III-IV; therefore, Rec tube feeding w/Suplena , start @ 30ml/hr, increase 10ml Q4hr, as tolerated to goal rate 60ml/hr PLUS Beneprotein packet 3 times a day. Mix 1-pkt Beneprotein w/2-4oz water, stir until dissolved and administer by syringe through PEG tube. Suplena @ goal rate and Beneprotein tid to offer 2667 kcal, 82.8g Protein and 1063ml free water. * Free Water Flushes 200mL QID. Rec Cesar packet bid for wound healing(mix 1-packet Cesar w/8-10oz water, until dissolved, and administer by syringe through PEG tube). Labs reviewed-monitor renal labs closely. Additional Recs to follow r/t clinical course. (3) Decubitus ulcer, stage 3 Status: Acute Plan: Patient with large decubitus ulcer over lower back; appears to be healing with good granulation tissue -Wound care consulted, appreciate recommendations * Collagenase ointment to be applied daily * Wound dressing changes daily per RN (4) Anemia Status: Chronic Plan: Hx of anemia; likely secondary to anemia of chronic disease. Baseline Hg 9-10; likly ACD. Hb slightly trended down to 7.9 yesterday. -Will repeat H/H this morning. Transfuse with hemoglobin is <7. -Continue iron supplementation -Continue Protonix -FOBT positive GI consulted: appreciate recommendations See medications above EGD/colonoscopy performed 08/05 revealed internal hemorrhoids, small internal hemorrhoids, external hemorrhoids. However limited due to poor bowel prep Discussed case with Dr. Calderon. Initially plan was to repeat colonoscopy on 08/08; however patient has been unable to tolerate colon prep even with NGT. No urgency to repeat colonoscopy during this hospitalization. Given poor po intake, PEG tube placement on 08/08. Will defer repeat colonoscopy until patient is more clinically stable. Hematology Consulted: * Please see plan as below (5) [id number] kidney injury Status: Acute Plan: Baseline GFR 50s. Renal function improving, stable. -Avoid nephrotoxic meds -Closely monitor I&O -Renal US: unremarkable Consult nephrology: appreciate recommendations * Monoclonal protein detected on serum RUDY * [place]/lambda ratio elevated. * Continue cholecalciferol Hematology consulted: appreciate recommendations. * Pt given 20,000 units of Epogen x1 on 08/16 * 1 Unit PRBC for anemia on 08/02, posttransfusion H/H 8.09/22 * Procrit 20K x1 given on 08/09 (1 unit given on 08/02) * Likely monoclonal gammopathy of undetermined significance (MGUS) * Recheck immune globulins once acute issues have resolved * Skeletal survey: Unremarkable study with median sternotomy and multiple gallstones noted. (6) Altered mental status Status: Resolved Plan: Found to hypernatremic on admission as well as acute on chronic PAT. Electrolyte abnormality and azotemia likely contributed to presentation. Hypernatremia and azotemia from initial dehydration resolved from a high of 160. Baseline mental status is unclear but pt does appear to have had multiple ischemic strokes in the past including lacunar infarcts 10/20/15. Pt now appears to be at baseline. -Negative UA and tox screen. -Ammonia, lactic acid WNL -Consider Seroquel if patient becomes agitated. Currently not needed Imaging: * CXR: unremarkable * Head CT negative for acute process. Consistent with chronic change. (7) Chronic systolic (congestive) heart failure Status: Chronic Plan: Patient with hx of CHF, EF 35% from September 2015. Not currently appearing to be fluid overloaded. -Closely monitor I&O's (8) Coronary artery disease Status: Chronic Plan: -Coreg 25mg po bid -Eliquis 2.5mg BID -Atorvastatin 80 mg po hs -Isosorbide Mononitrate 60 mg po hs (9) HTN (hypertension) Status: Chronic Plan: Continue Amlodipine 10 mg po daily -Hold for SBP <110 (10) Low vitamin D level Status: Acute Plan: Vitamin D low at 11.6. -Cholecalciferol 2000 units po Daily -Calcium carbonate 500 mg BID as calcium has been low -Ergocalciferol 50,000 units x1 on 08/12 (11) Diabetes mellitus Status: Chronic Plan: A1C 6.9 on 11/25/15, not currently on DM meds Serum glucose levels within normal limits, no significant elevations Continue to monitor (12) Nutrition, metabolism, and development symptoms Status: Acute Plan: Fluids/Diet: Tube feeds with tray Electrolytes: Continue to monitor, replete as needed. DVT PPX: Eliquis GI PPX: Protonix (Bernice Vasquez MD R3) Problem Qualifiers (1) Anemia: Qualified Code: D50.8 - Other iron deficiency anemia (2) Altered mental status: Qualified Code: R41.82 - Altered mental status, unspecified altered mental status type (3) Coronary artery disease: Qualified Code: I25.10 - Coronary artery disease involving ione heart without angina pectoris, unspecified vessel or lesion type (4) HTN (hypertension): Qualified Code: I10 - Essential hypertension (5) Diabetes mellitus: Qualified Code: E11.51 - Type 2 diabetes mellitus with diabetic peripheral angiopathy without gangrene, without long-term current use of insulin Bernice Vasquez MD R3 Aug 19, 2016 12:10 Abiodun Austin MD Aug 19, 2016 14:48
[2016-08-19 13:54] LABS: HEMATOCRIT 23.2 % (39.0-51.0); REVIEW FLAG FINAL
[2016-08-19 16:00] VITALS: BP 85/61; PULSE 92; RESP 16; TEMP 98.5; O2SAT 92
[2016-08-19] MEDS: CEFEPIME INJ 1,000 MG in SODIUM CHLORIDE 0.9% INJ 100 ML IV SCH (16:07)
[2016-08-19 20:00] VITALS: BP 102/69; PULSE 100; RESP 20; TEMP 98.2; O2SAT 93
[2016-08-19] MEDS: ISOSORBIDE MONONITRATE 60 MG TAB PO SCH (21:19)
[2016-08-19] MEDS: ATORVASTATIN 80 MG TAB PO SCH (21:20)
[2016-08-19] MEDS: MIRTAZAPINE 15 MG TAB PO SCH (21:20)
[2016-08-20] VITALS (14 sets, daily range): BP systolic 83–127; BP diastolic 57–79; PULSE 89–114; RESP 20–22; TEMP 97.9–100.1; O2SAT 88–100
[2016-08-20] MEDS ORDERED: SODIUM CHLOR 0.9% 250 ML INJ 250 ML IV ONE ×2 (00:45→08:30)
[2016-08-20] MEDS: CEFEPIME INJ 1,000 MG in SODIUM CHLORIDE 0.9% INJ 100 ML IV SCH ×2 (01:59→15:04)
[2016-08-20] MEDS: FREE WATER G-TUBE SCH ×5 (03:54→15:05)
[2016-08-20] MEDS ORDERED: ATROPINE SULFATE 1 MG/10 ML SYRINGE IV ONE (05:00)
[2016-08-20] MEDS ORDERED: EPINEPHrine HCL (1:10,000) 1 MG/10 ML SYRINGE IV ONE ×2 (05:00)
[2016-08-20] MEDS ORDERED: SODIUM BICARBONATE 8.4% INJ 50 MEQ/50 ML SYR IV ONE ×2 (05:00)
[2016-08-20] MEDS ORDERED: EPINEPHrine HCL (1:1000) 30 MG/30 ML VIAL IV ONE (05:00)
[2016-08-20] MEDS ORDERED: CALCIUM CHLORIDE 10% SOLN 1 GRAM/10 ML SYR IV ONE ×2 (05:00)
[2016-08-20] MEDS ORDERED: ALBUMIN HUMAN 5% 12.5 GM/250 ML BOTTLE IV ONE (05:30)
[2016-08-20] MEDS ORDERED: FUROSEMIDE 20 MG/2 ML VIAL IV PUSH ONE (05:30)
--- NOTE | 2016-08-20 05:35 | HHI.PR ---
Addendum to Inpatient Note Addendum Reason: Additional Documentation Additional Information ADDENDUM S: Medical team paged at approximately 0430am regarding patient persistently low BP with new onset of "labored breathing" per nurse. Team was paged at approximately 9pm prior to this regarding asymptomatic hypotension at 87/65 after receiving routine Coreg. At previous page, patient was given 250cc bolus. Patient has also received 200cc bolus of free water into G tube since 9am as well. Patient is non-verbal at this time and is not responding to questions, though he is alert and awake. He does not answer whether he is in pain or having trouble breathing. O: GEN: 61 y/o male in bed, noted to have rapid breathing with episodes of apnea PEG tube site clean dry and intact without surrounding erythema, currently without abdominal binder. CV: Regular rate and rhythm without obvious murmurs. LUNGS: Clear to anterior auscultation bilaterally. No wheezes, rales, rhonchi. Breathing seems labored over 20 second periods with 10 second periods of apnea, with repeated cycles. Oxygen saturation is approx. 90% during hyperrespiration period and up to 98%. GI: Soft, nondistended, nontender with +BS. EXT: Left leg with amputation. No cyanosis or edema. No signs of tenderness to calf manipulation. Currently denies any pain or trauma to his body. NEURO/PSYCH: Patient not cooperative with exam except to weakly grasp upon command bilaterally. A: 61 yo M, hx of prolonged hospital stay from September 2015 - today, having returned to the hospital on July 22 for fall. Admitted for AMS, rhabdomyolysis, dehydration, hypernatremia and anemia. Had a fall August 17, has been otherwise stable. Now hypotensive and having what appear to be Kristofer-Rodriguez breathing. Also has anemia, Hgb most recently 7.9 on 08/19 UTI now being treated with Cefepime, to which Pseudomonas found on urine culture on 08/16 was sensitive EKG showing widened QRS at 170, LBBB also present on EKG on re-admission in June 2016 Last echo in September 2015 per EMR Physical exam not remarkable for signs of overt fluid overload, however, patient does have CHF and received 250cc bolus prior to symptom onset. P: Telemetry Oxygen by RI, consider CPAP Lasix 20mg IV x 1 with 5% albumin 12.5mg x 1 Obtain labs: CBC, BMP, lactate, cardiac enzymes Consult cardiology to obtain recommendations on new EKG findings, Kristofer-Rodriguez breathing pattern, CHF Monitor symptoms closely, low threshold for escalation of care Komal Nation MD R1 Aug 20, 2016 05:35
--- NOTE | 2016-08-20 06:51 | RADRPT ---
EXAM DATE/TIME: 08/20/2016 05:06 [facility] COMPARISON: CHEST SINGLE AP, July 25, 2016, 19:36. INDICATIONS : Shortness of Breath MEDICAL HISTORY : Hypertension. Cerebrovascular disease. Congestive heart failure SURGICAL HISTORY : None. ENCOUNTER: Subsequent ACUITY: 3 weeks PAIN SCORE: Non-responsive. LOCATION: Bilateral chest FINDINGS: A single portable frontal view the chest shows low lung volumes. Bibasilar parenchymal consolidations . No effusions. Heart is at the upper limits of normal in terms of size. Median sternotomy wires are noted. CONCLUSION: Low lung volumes with bibasilar consolidation. Consolidation could relate to atelectasis or infiltrat es. Daryl Prabhakar Jr., MD on August 20, 2016 at 6:49 Board Certified Radiologist. This report was verified electronically.
[2016-08-20] MEDS ORDERED: TERBUTALINE INJ 1 MG/ML AMP SQ PRN ×2 (07:45→09:15)
[2016-08-20] MEDS ORDERED: NOREPINEPHRINE-DEXTROSE DRIP 250 ML IV SCH (08:00)
[2016-08-20] MEDS: FERROUS SULFATE 325 MG (65 MG ELEMENTAL IRON) TAB PO SCH (08:00)
[2016-08-20] MEDS ORDERED: FUROSEMIDE 100 MG/10 ML VIAL IV PUSH ONE (08:00)
[2016-08-20 08:02] LABS: AUTOMATED NEUTROPHIL # 12.9 TH/MM3 (1.8-7.7); BASOPHIL # 0.1 TH/MM3 (0-0.2); BASOPHIL % 0.6 % (0.0-2.0); EOSINOPHIL # 0.1 TH/MM3 (0-0.4); EOSINOPHIL % 0.7 % (0.0-4.0); HEMATOCRIT 23.7 % (39.0-51.0); HEMO FLAGS DIFF FINAL; LYMPH % 6.6 % (9.0-44.0); MEAN CELL VOLUME 83.2 FL (80.0-100.0); MEAN CORPUSCULAR HEMOGLOBIN 26.5 PG (27.0-34.0); MEAN CORPUSCULAR HGB CONC 31.9 % (32.0-36.0); MONO % 5.5 % (0.0-8.0); NEUT % 86.6 % (16.0-70.0); PLATELET COUNT 354 TH/MM3 (150-450); RED BLOOD COUNT 2.85 MIL/MM3 (4.50-5.90); WHITE BLOOD COUNT 14.9 TH/MM3 (4.0-11.0)
[2016-08-20] MEDS ORDERED: EPINEPHrine HCL (1:10,000) 1 MG/10 ML SYRINGE ONE (08:16)
[2016-08-20 08:17] LABS: BLOOD GAS BASE EXCESS 1.5 mmol/L (-2-2); BLOOD GAS CARBOXYHEMOGLOBIN 1.4 % (0-4); BLOOD GAS HCO3 27 mmol/L (22-26); BLOOD GAS METHEMOGLOBIN 0.6 % (0-2); BLOOD GAS O2 HGB SATURATION 96 % (90-100); BLOOD GAS OXYGEN CONTENT 10.1 Vol % (12.0-20.0); BLOOD GAS PCO2 49 mmHg (38-42); BLOOD GAS PO2 111 mmHg (61-120); BLOOD GAS TOTAL HGB 7.4 G/DL (12.0-16.0); TEMP CORR TO 98.6
[2016-08-20 08:18] LABS: CRITICAL VALUE NO; DRAW SITE ART LINE; FIO2 100 %; LITER FLOW 15 L/M; OXYGEN DEVICE AMBU; STAT YES
--- NOTE | 2016-08-20 08:19 | HHI.PR ---
Addendum to Inpatient Note Addendum Reason: Additional Documentation Additional Information CODE BLUE CODE BLUE was called on patient after non-responsive. Dr. Parks responded to code prior to resident arrival and ACLS was initiated. Patient was intubated. Chest compressions were performed. Three doses of epi were administered prior to ROSC. Patient was transferred to [facility]. Komal Nation MD R1 Aug 20, 2016 08:19
[2016-08-20] MEDS ORDERED: FUROSEMIDE 40 MG/4 ML VIAL ONE ×2 (08:23)
[2016-08-20] MEDS ORDERED: ACETAMINOPHEN 325 MG TAB PO PRN (08:30)
[2016-08-20] MEDS ORDERED: diphenhydrAMINE HCL 25 MG CAP PO PRN (08:30)
[2016-08-20 08:33] LABS: ALKALINE PHOSPHATASE 127 U/L (45-117); ALT (GPT) 16 U/L (12-78); ANION GAP 10 MEQ/L (5-15); BICARBONATE 24.2 MEQ/L (21.0-32.0); BLOOD UREA NITROGEN 33 MG/DL (7-18); CHLORIDE 101 MEQ/L (98-107); CREATINE KINASE 341 U/L (39-308); GLOMERULAR FILTRATION RATE 33 ML/MIN (>89); SODIUM (NA) 135 MEQ/L (136-145); TOTAL BILIRUBIN ADULT 0.3 MG/DL (0.2-1.0)
[2016-08-20 08:35] LABS: LACTIC ACID GHOST NOT REPORTABLE
[2016-08-20 08:38] LABS: AST (GOT) 55 U/L (15-37); MAGNESIUM 1.6 MG/DL (1.5-2.5); POTASSIUM 5.2 MEQ/L (3.5-5.1)
--- NOTE | 2016-08-20 08:41 | HHI.FPPN ---
Subjective Remarks Pt seen and examined this morning. Currently intubated and on epinephrine drip after 2 code blues were called. Many attempts were made to reach pts DCF transplant case manager Yisel Nation at [phone], (cell). [facility] coil winding supervisor Juan Diego was also called at [phone]. There was no answer, messages were left to call back regarding acute change in Mr. Xie condition. (Subha Nation MD R2) Objective Vitals Vital Signs Date Time Temp Pulse Resp B/P Pulse Ox O2 Delivery O2 Flow Rate FiO2 08/20/16 04:00 98.6 89 22 83/59 95 08/20/16 02:05 99.6 95 20 87/57 94 08/20/16 00:00 100.0 94 20 87/65 95 08/19/16 20:00 98.2 100 20 102/69 93 08/19/16 16:00 98.5 92 16 85/61 92 08/19/16 12:00 97.0 101 16 97/63 92 I/O 08/19/16 08/19/16 08/19/16 08/20/16 08/20/16 08/20/16 07:00 15:00 23:00 07:00 15:00 23:00 Intake Total 1052 ml 360 ml 1331 ml 0 ml Output Total 270.0 ml 250 ml 100 ml Balance 1052 ml 90.0 ml 1081 ml -100 ml Intake Oral 240 ml 360 ml 120 ml 0 ml Tube Feeding 412 ml 611 ml Other 400 ml 600 ml Output Urine Total 250 ml 250 ml 100 ml Tube Feeding Residual Discard 20.0 ml # Voids 2 # Bowel Movements 2 (Subha Nation MD R2) Result Diagram: 08/20/16 0613 08/16/16 0539 Objective Remarks GEN: Thin, frail 61 y/o M in acute cardiopulmonary distress, intubated and on epinephrine drip SKIN: PEG tube site CDI without surrounding erythema CV: Regular rate and rhythm without obvious murmurs. LUNGS: Diffuse coarse breath sound auscultated in anterior lung albarran. Clear to anterior auscultation bilaterally. No wheezes, rales, rhonchi. GI: Soft, nondistended with +BS. EXT: No cyanosis or edema. NEURO/PSYCH: Patient intubated and not responsive. (Subha Nation MD R2) A/P Assessment and Plan 61 yo M, hx of prolonged hospital stay from September 2015 - July 18, 2016, having returned to the hospital on July 22 for fall. Admitted for AMS, rhabdomyolysis , dehydration, hypernatremia and anemia. PEG tube has been placed due to decreased PO intake and dehydration. He is tolerating tube feeds. Patient is currently in critical condition due to likely ischemic cardiac event. Cardiology has been consulted. Discharge Planning Discharge pending DCF clearance for placement into rehab. CM is on board to assist with d/c plans. Will touch base with CM regarding discharge status. d/w Dr. Austin (Subha Nation MD R2) Attending Attestation Pt. examined and case discussed with resident physicians I have read the above note and agree with the assessment/plan as discussed with me I was involved in all medical decision making for this patient Appreciate critical care management during code blue x4 Pt. with poor prognosis s/p what appears to be an OH causing cardiac arrest Management in the [facility] per critical care Case discussed with cardiology and critical care Abiodun Austin MD (Abiodun Austin MD) Problem List: (1) Cardiac arrest Status: Acute Plan: EKG significant for LBBB, similar in comparison to prior EKG from 07/25. -Cardiology consulted, appreciate recommendations -Troponin elevated to 8.57, pt with pulmonary edema -Pt has been on Eliquis due to prior stroke -Pt coded due to PEA, now with a pulse -Has been coded a total of 4 times due to bradycardia loss of pulse -Currently on epinephrine drip to maintain blood pressure (2) Pulmonary edema Status: Acute Plan: Pt with coarse breath sounds on exam. Repeat chest x ray from this morning significant for acute pulmonary edema. -Critical care consulted, appreciate recommendations -Lasix 20mg IV x1 -Consider additional dose of IV lasix -Continue to monitor fluid status Imaging: CXR 08/20 0500: Low lung volumes with bibasilar consolidation. Consolidation could relate to atelectasis fo infiltrates. (3) UTI (urinary tract infection) Status: Acute Plan: Repeat UA on 08/18 significant for hazy appearance, 30 protein, small occult blood, positive nitrites, large leukocyte esterase, many white blood cell clumps, moderate bacteria. Urine culture: Preliminary result: Gram negative rods Continue Cefepime 1gm BID (08/19-) x anticipate duration of 10 days Repeat UA to be preformed on 08/21 History: Ucx 08/16: Pseudomonas aeruginosa, resistant to fluoroquinolone, gentamicin/ tobramycin but sensitive to Cefepime and Zosyn. Rocephin 1 g IV Daily (08/16-08/18 ) (4) Encounter for dietary counseling and surveillance Status: Acute Plan: Patient with inadequate/poor oral intake of fluids and solids since admission. Speech recommended full liquid diet with thickened liquids of nectar consistency. However patient has been refusing to eat. PEG tube placed on 08/08 given insufficient oral intake and nutrition. Tolerating TFs, up to 60ml/hr -GI on board, appreciate recommendations and intervention: * Continue TF per dietary, see below, held utill pt is more stable * Protonix 40mg PO Daily, consider transitioning to IV while pt is in the ICU * Ferrous Sulfate 325 mg PO Daily Dietary consulted, appreciate recommendations * Patient w/history of DM and CKD III-IV; therefore, Rec tube feeding w/Suplena , start @ 30ml/hr, increase 10ml Q4hr, as tolerated to goal rate 60ml/hr PLUS Beneprotein packet 3 times a day. Mix 1-pkt Beneprotein w/2-4oz water, stir until dissolved and administer by syringe through PEG tube. Suplena @ goal rate and Beneprotein tid to offer 2667 kcal, 82.8g Protein and 1063ml free water. * Free Water Flushes 200mL QID. Rec Cesar packet bid for wound healing(mix 1-packet Cesar w/8-10oz water, until dissolved, and administer by syringe through PEG tube). Labs reviewed-monitor renal labs closely. Additional Recs to follow r/t clinical course. (5) Decubitus ulcer, stage 3 Status: Acute Plan: Patient with large decubitus ulcer over lower back; appears to be healing with good granulation tissue -Wound care consulted, appreciate recommendations * Collagenase ointment to be applied daily * Wound dressing changes daily per RN (6) Anemia Status: Chronic Plan: Hx of anemia; likely secondary to anemia of chronic disease. Baseline Hg 9-10; likly ACD. Hb slightly trended down to 7.9 yesterday. -H/H currently 7.5/23.7 -Pt to be transfused 1 unit PRBCs stat -Continue iron supplementation -Continue Protonix -FOBT positive GI consulted: appreciate recommendations See medications above EGD/colonoscopy performed 08/05 revealed internal hemorrhoids, small internal hemorrhoids, external hemorrhoids. However limited due to poor bowel prep Discussed case with Dr. Calderon. Initially plan was to repeat colonoscopy on 08/08; however patient has been unable to tolerate colon prep even with NGT. No urgency to repeat colonoscopy during this hospitalization. Given poor po intake, PEG tube placement on 08/08. Will defer repeat colonoscopy until patient is more clinically stable. Hematology Consulted: * Please see plan as below (7) [id number] kidney injury Status: Acute Plan: Baseline GFR 50s. Renal function currently 2.08, increased from 1.53 on . -Avoid nephrotoxic meds -Closely monitor I&O -Renal US: unremarkable Consult nephrology: appreciate recommendations * Monoclonal protein detected on serum RUDY * [place]/lambda ratio elevated. * Continue cholecalciferol Hematology consulted: appreciate recommendations. * Pt given 20,000 units of Epogen x1 on 08/16 * 1 Unit PRBC for anemia on 08/02, posttransfusion H/H 8.09/22 * Procrit 20K x1 given on 08/09 (1 unit given on 08/02) * Likely monoclonal gammopathy of undetermined significance (MGUS) * Recheck immune globulins once acute issues have resolved * Skeletal survey: Unremarkable study with median sternotomy and multiple gallstones noted. (8) Altered mental status Status: Resolved Plan: Found to hypernatremic on admission as well as acute on chronic PAT. Electrolyte abnormality and azotemia likely contributed to presentation. Hypernatremia and azotemia from initial dehydration resolved from a high of 160. Baseline mental status is unclear but pt does appear to have had multiple ischemic strokes in the past including lacunar infarcts 10/20/15. Pt now appears to be at baseline. -Negative UA and tox screen. -Ammonia, lactic acid WNL -Consider Seroquel if patient becomes agitated. Currently not needed Imaging: * CXR: unremarkable * Head CT negative for acute process. Consistent with chronic change. (9) Chronic systolic (congestive) heart failure Status: Chronic Plan: Patient with hx of CHF, EF 35% from September 2015. Not currently appearing to be fluid overloaded. -Closely monitor I&O's (10) Coronary artery disease Status: Chronic Plan: -Coreg 25mg po bid -Eliquis 2.5mg BID -Atorvastatin 80 mg po hs -Isosorbide Mononitrate 60 mg po hs (11) HTN (hypertension) Status: Chronic Plan: Continue Amlodipine 10 mg po daily -Hold for SBP <110 (12) Low vitamin D level Status: Acute Plan: Vitamin D low at 11.6. -Cholecalciferol 2000 units po Daily -Calcium carbonate 500 mg BID as calcium has been low -Ergocalciferol 50,000 units x1 on 08/12 (13) Diabetes mellitus Status: Chronic Plan: A1C 6.9 on 11/25/15, not currently on DM meds Serum glucose levels within normal limits, no significant elevations Continue to monitor (14) Nutrition, metabolism, and development symptoms Status: Acute Plan: Fluids/Diet: Pt currently NPO due to acute change in cardiopulmonary status Electrolytes: Potassium elevated to 5.2 DVT PPX: Eliquis, hold due to anemia GI PPX: Protonix (Subha Nation MD R2) Problem Qualifiers (1) Anemia: Qualified Code: D50.8 - Other iron deficiency anemia (2) Altered mental status: Qualified Code: R41.82 - Altered mental status, unspecified altered mental status type (3) Coronary artery disease: Qualified Code: I25.10 - Coronary artery disease involving [place] heart without angina pectoris, unspecified vessel or lesion type (4) HTN (hypertension): Qualified Code: I10 - Essential hypertension (5) Diabetes mellitus: Qualified Code: E11.51 - Type 2 diabetes mellitus with diabetic peripheral angiopathy without gangrene, without long-term current use of insulin Subha Nation MD R2 Aug 20, 2016 08:41 Abiodun Austin MD Aug 20, 2016 18:20
[2016-08-20] MEDS ORDERED: FUROSEMIDE 20 MG/2 ML VIAL IV ONE (08:45)
[2016-08-20 08:52] LABS: CKMB 12.7 NG/ML (0.5-3.6)
[2016-08-20] MEDS: CHOLECALCIFEROL (VIT D3) 1000 UNIT TAB PO SCH (09:00)
[2016-08-20] MEDS: APIXABAN 2.5 MG TABLET PO SCH (09:00)
[2016-08-20] MEDS: CALCIUM CARBONATE 500 MG CHEWABLE TAB CHEW SCH ×2 (09:00→20:12)
[2016-08-20] MEDS: COLLAGENASE OINT 30 GM TUBE TOPICAL SCH (09:00)
[2016-08-20] MEDS: SODIUM CHLORIDE 0.9% FLUSH 10 ML FLUSH IV FLUSH SCH ×2 (09:00→20:12)
[2016-08-20] MEDS: PANTOPRAZOLE SOD 40 MG DELAYED RELEASE TAB PO SCH (09:00)
[2016-08-20] MEDS: CARVEDILOL 12.5 MG TAB PO SCH (09:00)
[2016-08-20] MEDS ORDERED: ATROPINE SULFATE 1 MG/10 ML SYRINGE ONE (09:05)
[2016-08-20] MEDS ORDERED: DOPamine INJ PREMIX 500 ML ONE (09:09)
--- NOTE | 2016-08-20 09:12 | RADRPT ---
EXAM DATE/TIME: 08/20/2016 08:15 [place] COMPARISON: CHEST SINGLE AP, August 20, 2016, 5:06. INDICATIONS : Post Code, Endotracheal tube placement MEDICAL HISTORY : Hypertension. Cerebrovascular disease. Congestive heart failure SURGICAL HISTORY : CABG. ENCOUNTER: Subsequent ACUITY: 3 weeks PAIN SCORE: Non-responsive. LOCATION: Bilateral chest FINDINGS: The patient is status post sternotomy. The heart size is normal. The ET tube is well placed. There is diffuse increased interstitial markings. The costophrenic angles are clear. CONCLUSION: 1. ET tube in good position. 2. Mild diffuse increased interstitial markings likely representing edema. Camacho Santana MD on August 20, 2016 at 9:09 Board Certified Radiologist. This report was verified electronically.
[2016-08-20] MEDS ORDERED: DOPamine INJ PREMIX 500 ML IV SCH (09:15)
[2016-08-20 10:05] LABS: BLOOD GAS BASE EXCESS -2.1 mmol/L (-2-2); BLOOD GAS CARBOXYHEMOGLOBIN 1.5 % (0-4); BLOOD GAS HCO3 22 mmol/L (22-26); BLOOD GAS METHEMOGLOBIN 0.6 % (0-2); BLOOD GAS O2 HGB SATURATION 97 % (90-100); BLOOD GAS OXYGEN CONTENT 12.5 Vol % (12.0-20.0); BLOOD GAS PCO2 37 mmHg (38-42); BLOOD GAS PO2 135 mmHg (61-120); CRITICAL VALUE NO; DRAW SITE ALINE; FIO2 100 %; OXYGEN DEVICE VENT; STAT NO; TEMP CORR TO 98.6
--- NOTE | 2016-08-20 10:29 | PD.CONS ---
[facility] Service Critical Care Medicine Consult Requested By Family medicine service Reason for Consult Cardiac arrest Primary Care Physician Camacho Golbderg MD History of Present Illness 61-year-old male admitted on 07/25/2016 by family medicine service after he was found at home by DCF not being able to take care of himself lying on the ground in his own feces. Previously patient was in the hospital from October 15, 2015 to July 18, 2016. During this hospitalization he was noted to be anemic secondary to anemia of chronic disease as well as possible myelosuppression for which she received blood transfusions and Procrit and was evaluated by hematology. He also has a PEG tube placed during this admission for maintaining his nutritional status. His neurologic status fluctuates and he goes from conversing to being encephalopathic. He has had multiple strokes and does have coronary artery disease with previous CABG and stenting. He is on Eliquis for anticoagulation and does have an ischemic cardiomyopathy as well as diabetes mellitus. He was recently started on Rocephin for a UTI. This morning patient was noted to have hypotension and some altered mental status. He was given fluid bolus and a chest x-ray was done earlier. Subsequently around 7 AM CODE BLUE cardiac arrest code was called for which I responded to the floor. At the time of my arrival patient was being ventilated with bag mask ventilation. He initially had agonal respirations. He was noted to be in asystole on the monitor subsequently so CPR/ACLS protocol was initiated. Patient had return of circulation following about 15 minutes of ACLS protocol and was noted to have a left bundle branch block which appeared old. He was started on an epinephrine drip for hypotension and transported to [facility]. Shortly following his arrival to the unit he underwent another episode of bradycardia and subsequently lost his pulse. CPR/ACLS protocol was initiated and he had return of spontaneous circulation following about 5 minutes of ACLS. He had a central line and a femoral arterial line placed emergently by myself. Stat labs were sent as well as ABG. Patient was continued on mechanical ventilation. He subsequently had 2 further episodes of cardiac arrest from which he was successfully resuscitated. History was obtained by reviewing records and discussion with family medicine team and floor as well as floor nursing staff. Review of Systems ROS Limitations: encephalopathic, intubated on [facility] ventilation Past Family Social History Past Medical History Coronary artery disease Hypertension Hyperlipidemia Diabetes mellitus Congestive heart failure Peripheral arterial disease Obstructive sleep apnea? Past Surgical History CABG 4 vessel Left kidney stent Patient had a trach as a child Right BKA Reported Medications Medications at home Active Eliquis (Apixaban) 2.5 Mg Tab 2.5 Mg PO BID 30 Days Norvasc (Amlodipine Besylate) 10 Mg Tab 10 Mg PO DAILY 30 Days Wheelchair (Device) 1 Mis Mis 1 Ea .ROUTE DIRECTED Atorvastatin (Atorvastatin Calcium) 80 Mg Tab 80 Mg PO HS Start on 07/08/16 Quetiapine (Quetiapine Fumarate) 100 Mg Tab 100 Mg PO DAILY Quetiapine (Quetiapine Fumarate) 100 Mg Tab 150 Mg PO HS Isosorbide Mononitrate ER (Isosorbide Mononitrate) 60 Mg Tab 60 Mg PO HS Ferrous Sulfate 325 Mg Tab 325 Mg PO DAILY@08 Take 1 hour before you take Pepcid in the morning. Famotidine 20 Mg Tab 20 Mg PO BID Coreg (Carvedilol) 12.5 Mg Tab 25 Mg PO BID Allergies: Coded Allergies: Pen-Vee K (Verified Allergy, Severe, THROAT SWELLS, 07/25/16) Penicillin (Verified Allergy, Unknown, SWELLING, 07/25/16) Uncoded Allergies: aspartame (Adverse Reaction, Severe, severe nose bleed, 10/24/13) Inpatient Medications Acetaminophen (Tylenol) 650 mg Q4H PRN PO SEE LABEL COMMENTS; Start 08/20/16 at 08:30; Stop 08/20/16 at 12:31 Albumin Human 12.5 gm 12.5 gm ONCE ONCE IV Last administered on 08/20/16 06: 03; Start 08/20/16 at 05:30; Stop 08/20/16 at 05:31; Status DC Amlodipine Besylate (Norvasc) 10 mg DAILY PO Last administered on 08/18/16 09: 59; Start 07/28/16 at 09:00 Apixaban (Eliquis) 2.5 mg BID PO Last administered on 08/19/16 21:20; Start at 21:00 Atorvastatin Calcium (Lipitor) 80 mg HS PO Last administered on 08/19/16 21:20 ; Start 07/25/16 at 21:00 Calcium Carbonate (Tums Chew) 1,000 mg ONCE ONCE CHEW Last administered on 06:18; Start 08/12/16 at 05:00; Stop 08/12/16 at 05:11; Status DC Calcium Carbonate 500 mg 500 mg ONCE ONCE PO Last administered on 08/16/16 09 :08; Start 08/16/16 at 08:30; Stop 08/16/16 at 08:31; Status DC Carvedilol (Coreg) 25 mg BID PO Last administered on 08/19/16 21:20; Start at 21:00 Cefepime HCl/ Sodium Chloride (Maxipime Inj/NS Inj) 100 ml @ 200 mls/hr Q12H IV Last administered on 08/20/16 01:59; Start 08/19/16 at 15:00 Ceftriaxone Sodium 1000 mg/ Sodium Chloride 100 ml @ 200 mls/hr Q24H IV Last administered on 08/18/16 16:30; Start 08/16/16 at 16:00; Stop 08/18/16 at 19:52 ; Status DC Chlorhexidine Gluconate (Chlorhexidine 2% Cloth) 3 pack CUSTOMER SUPPORT ADVISOR PRN TOPICAL SEE LABEL COMMENTS; Start 08/08/16 at 03:00; Stop 08/11/16 at 02:59; Status DC Cholecalciferol (Vitamin D3) 2,000 units DAILY PO Last administered on 09:45; Start 07/28/16 at 09:00 Collagenase (Santyl Oint) 1 applic DAILY TOPICAL Last administered on 03:09; Start 08/04/16 at 14:30 Diphenhydramine HCl (Benadryl) 25 mg Q4H PRN PO SEE LABEL COMMENTS; Start 08/20 at 08:30; Stop 08/20/16 at 12:31 Dopamine HCl/ Dextrose (DOPamine INJ PREMIX) 500 ml @ 10.013 mls/ hr TITRATE IV ; Start 08/20/16 at 09:15 Epoetin Erick (Epogen Inj) 20,000 units ONCE ONCE SQ Last administered on 09:24; Start 08/16/16 at 09:00; Stop 08/16/16 at 09:01; Status DC Ergocalciferol 95972 units 50,000 units Q7D PO Last administered on 08/12/16 06:18; Start 08/12/16 at 05:00; Stop 08/12/16 at 13:43; Status DC Ferrous Sulfate (Ferrous Sulfate) 325 mg DAILY@08 PO Last administered on 09:45; Start 07/26/16 at 08:00 Furosemide (Lasix Inj) 20 mg ONCE ONCE IV PUSH Last administered on 08/20/16 05:26; Start 08/20/16 at 05:30; Stop 08/20/16 at 05:31; Status DC Furosemide 20 mg 20 mg ONCE ONCE IV ; Start 08/20/16 at 08:45; Stop 08/20/16 at 08:46; Status DC Furosemide 80 mg 80 mg ONCE ONCE IV PUSH ; Start 08/20/16 at 08:00; Stop at 08:01; Status DC Isosorbide Mononitrate (Imdur) 60 mg HS PO Last administered on 08/19/16 21:19 ; Start 07/25/16 at 21:00 Lactated Ringer's 1,000 ml @ 30 mls/hr Q24H PRN IV SEE LABEL COMMENTS; Start at 03:00; Stop 08/11/16 at 02:59; Status DC Magnesium Citrate (Citroma Liq) 300 ml ONCE ONCE PO Last administered on 21:42; Start 08/03/16 at 20:00; Stop 08/03/16 at 20:01; Status DC Magnesium Sulfate/ Dextrose (Magnesium Sulfate 1 Gm Premix) 100 ml @ 100 mls/ hr ONCE ONCE IV Last administered on 08/15/16 17:37; Start 08/15/16 at 17:15 ; Stop 08/15/16 at 18:14; Status DC Mirtazapine 15 mg 15 mg HS PO Last administered on 08/19/16 21:20; Start at 21:00 Miscellaneous Information ALL NURSING DEPARTME... UNSCH PRN .XX SEE LABEL COMMENTS; Start 08/08/16 at 12:15; Stop 08/09/16 at 12:14; Status DC Miscellaneous 1 ea 1 ea UNSCH PRN OTHER SEE LABEL COMMENTS; Start 07/25/16 at 18:45 Naloxone HCl (Narcan Inj) 0.4 mg UNSCH PRN IV SEE LABEL COMMENTS; Start at 18:30 Norepinephrine Bitartrate (Levophed-Dextrose Drip) 250 ml @ 0 mls/hr TITRATE IV ; Start 08/20/16 at 08:00 Pantoprazole Sodium (Protonix) 40 mg DAILY PO Last administered on 08/19/16 09 :45; Start 07/31/16 at 12:00 Polyethylene Glycol/ Electrolytes 4000 ml 4,000 ml ONCE ONCE NG Last administered on 08/04/16 18:19; Start 08/04/16 at 18:00; Stop 08/04/16 at 18:01; Status DC Potassium Chloride (KCl) 40 meq ONCE ONCE PO Last administered on 08/02/16 09: 50; Start 08/02/16 at 07:30; Stop 08/02/16 at 07:32; Status DC Povidone Iodine (Betadine 5% Antisepsis Kit) 1 applic CUSTOMER SUPPORT ADVISOR PRN EACH NARE SEE LABEL COMMENTS; Start 08/08/16 at 03:00; Stop 08/11/16 at 02:59; Status DC Quetiapine Fumarate (SEROquel) 100 mg DAILY PO ; Start 07/26/16 at 09:00; Stop 07/26/16 at 09:00; Status DC Quetiapine Fumarate 150 mg 150 mg HS PO ; Start 07/25/16 at 21:00; Stop at 21:00; Status DC Sodium Bicarbonate/ Dextrose (Sodium Bicarbonate 8.4% Inj/D5W 1000 ml Inj) 1, 075 ml @ 75 mls/hr [id number] IV Last administered on 08/05/16 05:30; Start at 00:00; Stop 08/05/16 at 12:08; Status DC Sodium Bicarbonate/ Sodium Chloride (Sodium Bicarbonate 8.4% Inj/1/2 NS 1000 ml Inj) 1,075 ml @ 125 mls/hr Q8H36M IV Last administered on 07/27/16 05:35; Start 07/27/16 at 07:00; Stop 07/27/16 at 18:24; Status DC Sodium Chloride (NS 1000 ml Inj) 1,000 ml @ 125 mls/hr Q8H IV Last administered on 07/26/16 02:30; Start 07/25/16 at 18:30; Stop 07/26/16 at 06:55 ; Status DC Sodium Chloride (NS 250 ml Inj) 250 ml @ 15 mls/hr ONCE ONCE IV ; Start at 08:30; Stop 08/21/16 at 01:09 Sodium Chloride (NS 500 ml Inj) 500 ml @ 30 mls/hr [id number] PRN IV SEE LABEL COMMENTS; Start 08/08/16 at 03:00; Stop 08/11/16 at 02:59; Status DC Sodium Chloride (NS Flush) 2 ml BID IV FLUSH Last administered on 08/19/16 21: 21; Start 07/25/16 at 21:00 Terbutaline Sulfate (Brethine Inj) 1 mg UNSCH PRN SQ For Extravasation; Start 08/20/16 at 09:15 Water (Free Water) 200 ml Q4HR G-TUBE Last administered on 08/20/16 03:54; Start 08/10/16 at 20:00 Family History unknown Social History No t/e/d Physical Exam Vital Signs Vital Signs Date Time Temp Pulse Resp B/P Pulse Ox O2 Delivery O2 Flow Rate FiO2 08/20/16 09:39 100 100 08/20/16 04:00 98.6 89 22 83/59 95 08/20/16 02:05 99.6 95 20 87/57 94 08/20/16 00:00 100.0 94 20 87/65 95 08/19/16 20:00 98.2 100 20 102/69 93 08/19/16 16:00 98.5 92 16 85/61 92 08/19/16 12:00 97.0 101 16 97/63 92 Physical Exam HEENT/ Neuro: Sedated, orally intubated, Pallor present, no icterus, tongue/ mucosa moist Neck: No JVD Chest/Pulm: on mech vent, good air entry bilaterally, bilateral coarse crackles , no wheezing. CVS: S1-S2 regular, no murmur GI/abdomen: soft, nontender, bowel sounds sluggish Extremities: warm bilaterally, no edema Laboratory Laboratory Tests Test 08/19/16 08/20/16 08/20/16 08/20/16 13:47 06:13 06:29 08:05 Hemoglobin 7.7 7.5 Hematocrit 23.2 23.7 White Blood Count 14.9 Red Blood Count 2.85 Mean Corpuscular Volume 83.2 Mean Corpuscular Hemoglobin 26.5 Mean Corpuscular Hemoglobin 31.9 Concent Red Cell Distribution Width 17.0 Platelet Count 354 Mean Platelet Volume 7.8 Neutrophils (%) (Auto) 86.6 Lymphocytes (%) (Auto) 6.6 Monocytes (%) (Auto) 5.5 Eosinophils (%) (Auto) 0.7 Basophils (%) (Auto) 0.6 Neutrophils # (Auto) 12.9 Lymphocytes # (Auto) 1.0 Monocytes # (Auto) 0.8 Eosinophils # (Auto) 0.1 Basophils # (Auto) 0.1 CBC Comment DIFF FINAL Differential Comment Sodium Level 135 Potassium Level 5.2 Chloride Level 101 Carbon Dioxide Level 24.2 Anion Gap 10 Blood Urea Nitrogen 33 Creatinine 2.08 Estimat Glomerular Filtration 33 Rate Random Glucose 182 Calcium Level 8.2 Phosphorus Level 2.9 Magnesium Level 1.6 Total Bilirubin 0.3 Aspartate Amino Transf 55 (AST/SGOT) Alanine Aminotransferase 16 (ALT/SGPT) Alkaline Phosphatase 127 Total Creatine Kinase 341 Creatine Kinase MB 12.7 Creatine Kinase MB % 3.7 Troponin I 8.58 Total Protein 6.7 Albumin 2.1 Lactic Acid Level 2.5 Blood Type O POSITIVE Antibody Screen NEGATIVE Crossmatch Leukocyte-Reduced Red Blood Cells Blood Bank Comment Test 08/20/16 08:11 Blood Gas Puncture Site ART LINE Blood Gas Patient Temperature 98.6 Blood Gas HCO3 27 Blood Gas Base Excess 1.5 Blood Gas Oxygen Saturation 96 Arterial Blood pH 7.35 Arterial Blood Partial 49 Pressure CO2 Arterial Blood Partial 111 Pressure O2 Arterial Blood Oxygen Content 10.1 Arterial Blood 1.4 Carboxyhemoglobin Arterial Blood Methemoglobin 0.6 Blood Gas Hemoglobin 7.4 Oxygen Delivery Device AMBU Blood Gas Liter Flow 15 Blood Gas Inspired Oxygen 100 Date/Time Procedure Status Source Growth 08/20/16 06:13 Aerobic Blood Culture Received Blood Peripheral Pending 08/20/16 06:13 Anaerobic Blood Culture Received Blood Peripheral Pending 08/18/16 20:40 Urine Culture - Preliminary Resulted Urine Random Urine Gram Negative Rubens 08/18/16 20:40 Cancelled Urine Clean Catch 08/16/16 09:15 Urine Culture - Final Complete Urine Other Pseudomonas Aeruginosa Result Diagram: 08/20/16 0613 08/20/16 0613 Imaging Last 24 hours Impressions Chest X-Ray 08/20/16 0500 Signed Impressions: Service Date/Time: Saturday, August 20, 2016 05:06 - CONCLUSION: Low lung volumes with bibasilar consolidation. Consolidation could relate to atelectasis or infiltrates. Daryl Prabhakar Jr., MD Chest X-Ray 08/20/16 0000 Signed Impressions: Service Date/Time: Saturday, August 20, 2016 08:15 - CONCLUSION: 1. ET tube in good position. 2. Mild diffuse increased interstitial markings likely representing edema. Camacho Santana MD Last Impressions Chest X-Ray 08/20/16 0500 Signed Impressions: Service Date/Time: Saturday, August 20, 2016 05:06 - CONCLUSION: Low lung volumes with bibasilar consolidation. Consolidation could relate to atelectasis or infiltrates. Daryl Prabhakar Jr., MD Bone Osseous Survey 07/31/16 0000 Signed Impressions: Service Date/Time: Sunday, July 31, 2016 16:09 - CONCLUSION: Unremarkable bone survey. Incidental note made of median sternotomy. Multiple gallstones. Richard Gerber MD Head CT 07/25/16 1644 Signed Impressions: Service Date/Time: Monday, July 25, 2016 17:19 - CONCLUSION: 1. Lacunar infarcts bilaterally, worse on the left. 2. Negative for an acute process. Didier Clay MD FACR Renal Ultrasound 07/25/16 0000 Signed Impressions: Service Date/Time: Monday, July 25, 2016 20:55 - CONCLUSION: 1. Tiny nonobstructing calcified left renal calculi. 2. No hydronephrosis or solid renal mass. Efren Cleaning MD Assessment and Plan Assessment and Plan 61-year-old male with: Cardiac arrest status post CPR Acute respiratory failure on mechanical ventilation Pulmonary edema Shock Encephalopathy suspected anoxic brain damage in the setting of poor baseline neurologic function: Elevated troponin with suspected acute ID Ischemic cardiomyopathy History of CHF with EF 35% PAT/ CKD History of strokes Anemia of chronic disease Diabetes mellitus Myelosuppression Monoclonal gammopathy Sacral decubitus ulcer Status post PEG tube placement UTI Possible sepsis Plan: Neuro: Off all sedatives currently, follow neuro status. Suspect anoxic brain injury secondary to multiple cardiac arrests. Has had multiple strokes before. Too unstable to obtain head CT currently. Cardiovascular: On epinephrine/Levophed/dopamine drips. EKG with left bundle branch block. Troponin of 8 noted. Cardiology consulted. I discussed with Dr. Damián Arias/ Dr. Austin. We agree with was no intervention at this time due to poor neurologic status. Patient is on Eliquis for anticoagulation. Defer antiplatelet therapy to Dr. Arias. Pulmonary: Continue mechanical ventilation, vent bundle, bronchodilators as needed. GI/liver: Hold PEG feeds and keep nothing by mouth at this time. Renal/: Given Lasix 80 mg IV stat for pulmonary edema. Strict intake output, monitor and replete electro lites, follow BUN creatinine.. Endocrine: SSI for glycemic control Heme: To be transfused 1 unit PRBCs stat. Follow CBC. Being followed by hematology. ID: On Cefepime for UTI. Urine culture with Pseudomonas recently. Repeat cultures sent. Prophylaxis: PPI/SCDs. On anticoagulation with Eliquis. Lines: Left femoral central venous catheter, left femoral arterial line placed on 08/20 Prognosis appears extremely poor. Condition critical. Discussed with Dr. Arias, discussed with Dr. Austin/family medicine service. Discussed with ICU nursing staff. Time spent on critical care excluding procedures: 120 minutes Win Parks MD Aug 20, 2016 10:29 cultures sent. Prophylaxis: PPI/SCDs. On anticoagulation with Eliquis. Lines: Left femoral central venous catheter, left femoral arterial line placed on 08/20 Prognosis appears extremely poor. Condition critical. Discussed with Dr. Arias, discussed with Dr. Austin/family medicine service. Discussed with ICU nursing staff. Time spent on critical care excluding procedures: 120 minutes Win Parks MD Aug 20, 2016 10:29
[2016-08-20] MEDS ORDERED: MIDAZOLAM HCL 2 MG/2 ML VIAL IV ONE (11:00)
[2016-08-20] MEDS ORDERED: MIDAZOLAM 100 MG/ML INJ 100 ML IV SCH (11:00)
[2016-08-20] MEDS ORDERED: levETIRAcetam INJ 500 MG in SODIUM CHLORIDE 0.9% INJ 100 ML IV ONE (11:00)
[2016-08-20 11:25] LABS: HEMATOCRIT 26.2 % (39.0-51.0)
[2016-08-20] MEDS ORDERED: ASPIRIN 81 MG CHEW TAB G-TUBE ONE (13:00)
--- NOTE | 2016-08-20 13:08 | PD.PROCEDR ---
Central Line Procedure REASON FOR PROCEDURE Central venous access PROCEDURE PERFORMED Central line placement: Left femoral vein CONSENT Informed consent for procedure was not obtained as this was an emergent procedure following cardiac arrest. ANESTHESIA Local injection of 1% Lidocaine DESCRIPTION OF THE PROCEDURE The area was exposed and cleansed with ChloraPrep, times two. Large sterile drape was used to cover the patient, with the site exposed, under sterile conditions including cap, face mask, sterile gown, and sterile gloves. On single attempt, the introducer needle was inserted with negative pressure in syringe and venous flash was obtained. The guide wire was then advanced without any restriction and the needle was removed. The dilator was used without any complications. Using Seldinger technique the 20 cm antimicrobial coated triple lumen catheter was advanced over the guide wire to a depth of 19 centimeters. The guide wire was removed. All ports were aspirated with dark venous blood return and flushed easily with sterile saline. All ports were capped. Antibiotic disc was placed around central line at puncture site. The central line was secured to the skin with two interrupted 2.0 silk sutures. The area was bandaged with sterile see-through central line bandage. COMPLICATIONS: No apparent complications ESTIMATED BLOOD LOSS: 3 cc. Win Parks MD Aug 20, 2016 13:08
--- NOTE | 2016-08-20 13:10 | PD.PROCEDR ---
Procedure Note Procedure Preoperative diagnosis cardiac arrest status post CPR Postoperative diagnosis: Same Procedure: Left femoral arterial catheter placement Description: After sterile prepping and draping using 1% lidocaine for local infiltration anesthesia, left femoral artery was cannulated using an introducer needle with right pulsatile blood return. A guidewire was passed with introducer needle without any resistance and the needle was then removed. A 12 cm 20-gauge arterial catheter was passed over the guidewire by modified Seldinger technique into the 12 cm michael and the guidewire was then removed and catheter was connected to transducer tubing with good waveform being obtained on the monitor. After suturing the catheter in place a bio occlusive dressing with Biopatch was applied to the site. Patient tolerated procedure well with no immediate complications noted. Win Parks MD Aug 20, 2016 13:10
--- NOTE | 2016-08-20 13:11 | PD.PROCEDR ---
Procedure Note Procedure Procedure: CPR Preoperative diagnosis: Cardiac arrest Postoperative diagnosis: Same Description: Responded to CODE BLUE cardiac arrest code activation. CPR/ACLS protocol initiated. Patient had return of spontaneous circulation in about 15 minutes of CPR. He was transferred to the ICU. Please see ACLS code sheet for details. Win Parks MD Aug 20, 2016 13:11
[2016-08-20 13:16] LABS: MEAN CELL VOLUME 81.6 FL (80.0-100.0); MEAN CORPUSCULAR HEMOGLOBIN 26.6 PG (27.0-34.0); MEAN CORPUSCULAR HGB CONC 32.6 % (32.0-36.0); PLATELET COUNT 424 TH/MM3 (150-450); RED BLOOD COUNT 3.21 MIL/MM3 (4.50-5.90); RED CELL DISTRIBUTION WIDTH 17.1 % (11.6-17.2); WHITE BLOOD COUNT 26.6 TH/MM3 (4.0-11.0)
[2016-08-20 13:33] LABS: BANDS 8 % (0-6); NEUTROPHIL # MANUAL DIFF 24.5 TH/MM3 (1.8-7.7); POLYS (SEG NEUTROPHILS) 84 % (16-70); WBC DIFF SAMPLE 100
[2016-08-20 13:35] LABS: PLATELET ESTIMATE SMEAR HIGH (NORMAL); PLATELET MORPHOLOGY NORMAL (NORMAL)
[2016-08-20 13:36] LABS: SCAN/DIFF FINAL DIFF MANUAL
[2016-08-20 13:36] LABS: BICARBONATE 28.2 MEQ/L (21.0-32.0); POTASSIUM 5.5 MEQ/L (3.5-5.1)
[2016-08-20 15:26] LABS: LACTIC ACID GHOST NOT REPORTABLE
--- NOTE | 2016-08-20 15:45 | EC ---
Study Study Date:08/20/2016 STUDY CONCLUSIONS SUMMARY - Left ventricle: The cavity size was normal. Wall thickness was normal. Systolic function was severely reduced. The estimated ejection fraction was in the range of 20% to 25%. Diffuse hypokinesis. - Mitral valve: Mild to moderate regurgitation. - Left atrium: The atrium was mildly dilated. - Pericardium, extracardiac: There was a small left pleural effusion. If LV function is below 40, please consider prescribing an ACEI or ARB or document rationale for non-use. PROCEDURE DATA STUDY STATUS: Elective. Procedure: Transthoracic echocardiography. Image quality was good. Scanning was performed from the parasternal, apical, and subcostal acoustic windows. Study completion: The patient tolerated the procedure well. Transthoracic echocardiography. M-mode, complete 2D, complete spectral Doppler, and color Doppler. Patient status: Inpatient. CARDIAC ANATOMY LEFT VENTRICLE: The cavity size was normal. Wall thickness was normal. Systolic function was severely reduced. The estimated ejection fraction was in the range of 20% to 25%. Diffuse hypokinesis. AORTIC VALVE: Trileaflet; mildly thickened, mildly calcified leaflets. Doppler: Transvalvular velocity was within the normal range. There was no stenosis. No regurgitation. AORTA: Aortic root: The aortic root was normal in size. MITRAL VALVE: Structurally normal valve. Doppler: Transvalvular velocity was within the normal range. There was no evidence for stenosis. Mild to moderate regurgitation. LEFT ATRIUM: The atrium was mildly dilated. RIGHT VENTRICLE: The cavity size was normal. Wall thickness was normal. PULMONIC VALVE: Doppler: Transvalvular velocity was within the normal range. There was no evidence for stenosis. No regurgitation. TRICUSPID VALVE: Structurally normal valve. Doppler: Transvalvular velocity was within the normal range. No regurgitation. PULMONARY ARTERY: The main pulmonary artery was normal-sized. Systolic pressure was within the normal range. RIGHT ATRIUM: The atrium was normal in size. PERICARDIUM: There was no pericardial effusion. SYSTEMIC VEINS: Inferior vena cava: Not visualized. Pleura: There was a small left pleural effusion. BASIC MEASUREMENTS ADULT Normal Left ventricle LV internal dimension, ED, chordal level, *57.2 mm 43-52 PLAX LV internal dimension, ES, chordal level, *54 mm 23-38 PLAX Fractional shortening, chordal level, PLAX *6 % >29 LV posterior wall thickness, ED 7.61 mm IVS/LVPW ratio, ED *1.54 <1.3 Ventricular septum Septal thickness, ED 11.7 mm Aortic valve Leaflet separation 19 mm 15-26 Left atrium Anterior-posterior dimension 40 mm Right ventricle RV internal dimension, ED, PLAX *18.8 mm 19-38 BASIC MEASUREMENTS ADULT Normal Aortic valve Leaflet separation 19 mm 15-26 Aorta Root diameter, ED 32 mm 20-37 DOPPLER MEASUREMENTS ADULT Normal Mitral valve Peak E-wave velocity 59.3 cm/s Peak A-wave velocity 33.3 cm/s Peak E/A ratio 1.8 Tricuspid valve Regurgitant peak velocity 96.6 cm/s Peak RV-RA gradient, S 4 mm Hg Maximal regurgitant velocity 96.6 cm/s LEGEND: Mean values are shown as u=mean value. Asterisk (*) rubin values outside specified normal range. Prepared and signed by Damián Arias [id number]
[2016-08-20 17:13] LABS: HEMATOCRIT 26.1 % (39.0-51.0); REVIEW FLAG FINAL
[2016-08-20] MEDS ORDERED: PANTOPRAZOLE INJ 80 MG in SODIUM CHLORIDE 0.9% INJ 35 ML IV ONE (18:15)
--- NOTE | 2016-08-20 18:56 | MB ---
cc: MOR LINDSAY M.D. DATE OF CONSULTATION: 08/20/2016. REASON FOR CONSULTATION: The patient has coded four times and has an elevated troponin. HISTORY OF PRESENT ILLNESS: This is a severely ill 61-year-old man who I am consulted now that he has actually coded four times this morning. The patient is actually a artis of the formerly [facility], [facility]1983 under [facility] so they have been unable to get a hold of anyone to establish a code status. The patient has severe underlying disease. He has had multiple strokes. He has a below-knee amputation on the right. He spent a year at a hospital last year from September of 2015 to June of 2016. He has been admitted to the hospital this time since July 25. I have spoken to Dr. Parks, the hospice plan administrator here in the intensive care unit. He thought that the patient was struggling to breathe from pulmonary edema and then when asystolic. He required 15 minutes of CPR as well as multiple drips to bring him back. The patient has known coronary disease. His last heart cath was December 18, 2014. At that time, he had a patent left internal mammary bypass to the mid- left anterior descending. The mid to distal left anterior descending was diffusely diseased with 60% stenosis in the distal left anterior descending. There is a jump graft to the second obtuse marginal branch which is patent. There are collaterals to the distal right coronary artery. The left main had 40% stenosis. The proximal left anterior descending was totally occluded. The circumflex artery had occlusion of the first obtuse marginal branch, 90% proximal circumflex disease. He had intervention of the circumflex artery at that time with a 2.5 x 12 mm stent. The last cardiology consult on this patient was October 22, [address] Casillas. The patient is known to have ischemic cardiomyopathy. He has had severely altered mental status. PAST MEDICAL HISTORY: 1. Hypertension. 2. Dyslipidemia. 3. Diabetes. 4. Obesity. 5. Congestive heart failure. 6. Right below-knee amputation. 7. Left kidney stone. ALLERGIES: PENICILLIN. FAMILY HISTORY AND SOCIAL HISTORY: Unobtainable. PHYSICAL EXAMINATION: GENERAL: The physical exam reveals a tachypneic man who appears older than his stated age. He is unresponsive to any stimuli. VITAL SIGNS: Charted. HEAD, EYES, EARS, NOSE, THROAT: Exam unremarkable. NECK: Exam shows increased central venous pressure. No bruits. CHEST: Shows bilateral rhonchi. CARDIAC: S1, S2, S3 regular rhythm. ABDOMEN: Soft. EXTREMITIES: Reveal diminished peripheral perfusion. EKGS: His EKG shows sinus rhythm with an intraventricular conduction delay suggestive of a left bundle branch block. There is no acute S-T elevation. There is diffuse S-T abnormality. LABORATORY DATA: Laboratories show: Hematocrit 23.7. He is currently receiving blood. White count is elevated at 14,900. He is in acute renal failure with a creatinine of 2.08, BUN 33, lactic acid elevated at 9.5. Troponin was elevated this morning at 8.58 and CPK is 341. IMPRESSION: Severely ill 61-year-old man with very poor quality of life. He has a very poor mental status. He has already coded four times this morning. He had 15 minutes of CPR. He is unresponsive. He is in acute renal failure. The prognosis is terrible. I do not think an emergency cath with possible intervention is indicated at this time. I have spoken to Dr. Parks here in the ICU who agrees. The patient is currently getting maximal medical therapy. If he recovers significantly we could reconsider but an acute cath intervention at this time would not reverse things. Further therapy to be determine. MD PHILIP Culver/SULEIMAN /10:26 AM /6:40 PM
[2016-08-20] MEDS: PANTOPRAZOLE INJ 80 MG in SODIUM CHLORIDE 0.9% INJ 100 ML IV SCH (20:11)
[2016-08-20] MEDS: ATORVASTATIN 80 MG TAB PO SCH (20:12)
[2016-08-20] MEDS: levETIRAcetam INJ 500 MG in SODIUM CHLORIDE 0.9% INJ 100 ML IV SCH (20:12)
[2016-08-20] MEDS: MIRTAZAPINE 15 MG TAB PO SCH (20:13)
[2016-08-21] VITALS (15 sets, daily range): BP systolic 115–129; BP diastolic 72–89; PULSE 91–100; RESP 20–21; TEMP 97.7–99.3; O2SAT 99–100
[2016-08-21] MEDS: CEFEPIME INJ 1,000 MG in SODIUM CHLORIDE 0.9% INJ 100 ML IV SCH ×2 (02:35→14:37)
--- NOTE | 2016-08-21 04:02 | RADRPT ---
EXAM DATE/TIME: 08/21/2016 03:47 [place] COMPARISON: CT BRAIN W/O CONTRAST, July 25, 2016, 17:19. INDICATIONS : Altered mental status. RADIATION DOSE: 68.57 CTDIvol (mGy) MEDICAL HISTORY : Congestive hearrt failure. Myocardial infarction. Diabetes mellitus type 2.Hypertension. CVA. SURGICAL HISTORY : CABG ENCOUNTER: Initial ACUITY: 1 day PAIN SCALE: 0/10 LOCATION: cranial TECHNIQUE: Multiple contiguous axial images were obtained of the head. Using automated exposure control and adj ustment of the mA and/or kV according to patient size, radiation dose was kept as low as reasonably a chievable to obtain optimal diagnostic quality images. FINDINGS: CEREBRUM: Small chronic lacunar infarctions are again seen involving the basal ganglia bilaterally. The ventric les are normal for age. No evidence of midline shift, mass lesion, hemorrhage or acute infarction. No extra-axial fluid collections are seen. POSTERIOR FOSSA: The cerebellum and brainstem are intact. The 4th ventricle is midline. The cerebellopontine angle i s unremarkable. EXTRACRANIAL: The visualized portion of the orbits is intact. SKULL: The calvaria is intact. No evidence of skull fracture. CONCLUSION: No acute disease. Daryl Prabhakar Jr., MD on August 21, 2016 at 3:59 Board Certified Radiologist. This report was verified electronically.
[2016-08-21] MEDS: PANTOPRAZOLE INJ 80 MG in SODIUM CHLORIDE 0.9% INJ 100 ML IV SCH ×2 (05:35→15:38)
[2016-08-21] MEDS: FERROUS SULFATE 325 MG (65 MG ELEMENTAL IRON) TAB PO SCH (08:00)
[2016-08-21] MEDS: SODIUM CHLORIDE 0.9% FLUSH 10 ML FLUSH IV FLUSH SCH ×2 (09:00→20:42)
[2016-08-21] MEDS: PANTOPRAZOLE SOD 40 MG DELAYED RELEASE TAB PO SCH (09:00)
--- NOTE | 2016-08-21 09:00 | PD.CONS ---
HPI History of Present Illness Mr. Amado is an unfortunate 61 y/o WM who admitted on 07/25/2016 after he was found at home by DCF unable to take care of himself lying on the ground in his own feces. The pt was previously hospitalized from October 15, 2015 to July 18, 2016. During that hospitalization he was noted to be anemic secondary to anemia of chronic disease as well as possible myelosuppression for which he received blood transfusions and Procrit and was evaluated by hematology. Pt was seen by GI team during that admission for evaluation of iron deficiency anemia. He underwent incomplete colonoscopy on 08/05/16 which noted poor prep, internal hemorrhoids, recommendation to repeat in 3 days. At that time the repeat colonoscopy was not performed as the patient would not tolerate prep even with NGT in place. Pt had a PEG tube for feeding placed on 08/08/16 for maintaining his nutritional status. The pt has had multiple strokes and does have coronary artery disease with previous CABG x 4 and stenting. He was on Eliquis for anticoagulation and has ischemic cardiomyopathy. Yesterday morning the patient developed hypotension and some altered mental status. He was given fluid bolus but subsequently around 7 AM the pt coded and cardiac arrest code blue was called. The pt subsequently was coded with CPR/ACLS protocol for about 15 minutes. He was started on an epinephrine drip for hypotension and transported to [facility]. Shortly following his arrival to the unit he underwent another episode of bradycardia and subsequently lost his pulse. CPR/ACLS protocol was again initiated and he had return of spontaneous circulation following about 5 minutes of ACLS. He had a central line and a femoral arterial line placed. He subsequently had 2 further episodes of cardiac arrest from which he was successfully resuscitated. Nursing staff reported that the pt had an episode of bright red rectal bleeding last night. His G-tube was placed to [facility] and he was started on Protonix gtt. Pt was transfused with one unit of PRBCs when his Hgb was noted to be 7.5. Hgb improved to 8.8 yesterday and awaiting repeat labs for today. Pt had out about 300cc of green fluid from the G-tube overnight. Currently with some pink tinged fluid in the canister from G-tube suction. The pts Eliquis was last given on 08/19/16. He is still on ASA. Pt is still on pressors. The pt was unable to provide any history so this was obtained by reviewing records and discussion with Dr. Parks, the public health analyst, as well as the nursing staff. (Susan Reese) PFSH Past Medical History Per previous records, CAD HTN Lacunar CVA Hyperlipidemia DM CHF PAD Questionable SYLVIA Past Surgical History Per previous records, CABG Left kidney stent Tracheostomy as child Right BKA (Susan Reese) Coded Allergies: Pen-Vee K (Verified Allergy, Severe, THROAT SWELLS, 07/25/16) Penicillin (Verified Allergy, Unknown, SWELLING, 07/25/16) Uncoded Allergies: aspartame (Adverse Reaction, Severe, severe nose bleed, 10/24/13) Medications Pantoprazole (Pantoprazole Sodium) 40 Mg Tab 40 Mg PO DAILY Mirtazapine 15 Mg Tab 15 Mg PO HS Isosorbide Mononitrate ER (Isosorbide Mononitrate) 60 Mg Tab 60 Mg PO HS Ferrous Sulfate 325 Mg Tab 325 Mg PO DAILY@08 Drisdol (Ergocalciferol) 50,000 Unit Cap 50,000 Units PO Q7D Santyl (Collagenase) 250 Unit/Gm Oin 1 Applic TOPICAL DAILY 30 Days Vitamin D3 (Cholecalciferol) 1,000 Unit Tab 2,000 Units PO DAILY Coreg (Carvedilol) 12.5 Mg Tab 25 Mg PO BID Calcium Carbonate (Antacid) 500 Mg Chew 500 Mg CHEW Q12HR Atorvastatin (Atorvastatin Calcium) 80 Mg Tab 80 Mg PO HS Eliquis (Apixaban) 2.5 Mg Tab 2.5 Mg PO BID Norvasc (Amlodipine Besylate) 10 Mg Tab 10 Mg PO DAILY Eliquis (Apixaban) 2.5 Mg Tab 2.5 Mg PO BID 30 Days Norvasc (Amlodipine Besylate) 10 Mg Tab 10 Mg PO DAILY 30 Days Wheelchair (Device) 1 Mis Mis 1 Ea .ROUTE DIRECTED Atorvastatin (Atorvastatin Calcium) 80 Mg Tab 80 Mg PO HS Start on 07/08/16 Quetiapine (Quetiapine Fumarate) 100 Mg Tab 100 Mg PO DAILY Quetiapine (Quetiapine Fumarate) 100 Mg Tab 150 Mg PO HS Isosorbide Mononitrate ER (Isosorbide Mononitrate) 60 Mg Tab 60 Mg PO HS Ferrous Sulfate 325 Mg Tab 325 Mg PO DAILY@08 Take 1 hour before you take Pepcid in the morning. Famotidine 20 Mg Tab 20 Mg PO BID Coreg (Carvedilol) 12.5 Mg Tab 25 Mg PO BID Family History Unable to obtain Social History Unable to obtain (Susan Reese) Review of Systems ROS Unable to obtain as pt is intubated (Susan Reese) GI Exam Vitals I&O Vital Signs Date Time Temp Pulse Resp B/P Pulse Ox O2 Delivery O2 Flow Rate FiO2 08/21/16 07:15 100 50 08/21/16 06:00 99.0 95 20 125/85 100 118/72 08/21/16 04:00 99.2 100 20 123/85 100 127/78 08/21/16 03:45 100 100 08/21/16 02:00 99.0 98 21 127/89 100 123/74 08/21/16 01:40 99 50 08/21/16 00:00 99.3 95 20 115/72 100 115/80 08/20/16 22:00 99.5 96 20 114/72 100 115/76 08/20/16 20:01 98 50 08/20/16 20:00 100.1 98 20 114/78 100 114/72 08/20/16 18:00 97.9 98 20 100 111/77 08/20/16 16:00 97.9 98 20 100 127/79 08/20/16 15:11 100 60 08/20/16 14:00 97.9 92 20 100 119/76 08/20/16 12:00 98.0 94 20 100 114/73 08/20/16 10:00 98.6 100 22 88 109/70 08/20/16 09:39 100 100 I/O 08/20/16 08/20/16 08/20/16 08/21/16 08/21/16 08/21/16 07:00 15:00 23:00 07:00 15:00 23:00 Intake Total 0 ml 566 ml 429 ml 222 ml Output Total 100 ml 300 ml 1025 ml 650 ml Balance -100 ml 266 ml -596 ml -428 ml Intake Oral 0 ml 0 ml IV Total 216 ml 429 ml 222 ml Packed Cells 250 ml Other 100 ml Output Urine Total 100 ml 300 ml 825 ml 450 ml Gastric Drainage Total 200 ml 200 ml # Bowel Movements 1 Imaging Last Impressions Head CT 08/21/16 0000 Signed Impressions: Service Date/Time: Sunday, August 21, 2016 03:47 - CONCLUSION: No acute disease. Daryl Prabhakar Jr., MD Chest X-Ray 08/20/16 0500 Signed Impressions: Service Date/Time: Saturday, August 20, 2016 05:06 - CONCLUSION: Low lung volumes with bibasilar consolidation. Consolidation could relate to atelectasis or infiltrates. Daryl Prabhakar Jr., MD Bone Osseous Survey 07/31/16 0000 Signed Impressions: Service Date/Time: Sunday, July 31, 2016 16:09 - CONCLUSION: Unremarkable bone survey. Incidental note made of median sternotomy. Multiple gallstones. Richard Gerber MD Renal Ultrasound 07/25/16 0000 Signed Impressions: Service Date/Time: Monday, July 25, 2016 20:55 - CONCLUSION: 1. Tiny nonobstructing calcified left renal calculi. 2. No hydronephrosis or solid renal mass. Efren Cleaning MD Laboratory Test 08/20/16 08/20/16 08/20/16 08/20/16 09:55 11:10 13:20 16:30 Blood Gas Puncture Site DM Blood Gas Patient Temperature 98.6 Blood Gas HCO3 22 mmol/L Blood Gas Base Excess -2.1 mmol/L Blood Gas Oxygen Saturation 97 % Arterial Blood pH 7.39 Arterial Blood Partial 37 mmHg Pressure CO2 Arterial Blood Partial 135 mmHg Pressure O2 Arterial Blood Oxygen Content 12.5 Vol % Arterial Blood 1.5 % Carboxyhemoglobin Arterial Blood Methemoglobin 0.6 % Blood Gas Hemoglobin 9.0 G/DL Oxygen Delivery Device VENT Blood Gas Ventilator Setting AC/20/550/5/100 Blood Gas Inspired Oxygen 100 % White Blood Count 26.6 TH/MM3 Red Blood Count 3.21 MIL/MM3 Hemoglobin 8.6 GM/DL 8.8 GM/DL Hematocrit 26.2 % 26.1 % Mean Corpuscular Volume 81.6 FL Mean Corpuscular Hemoglobin 26.6 PG Mean Corpuscular Hemoglobin 32.6 % Concent Red Cell Distribution Width 17.1 % Platelet Count 424 TH/MM3 Mean Platelet Volume 7.4 FL Differential Total Cells 100 Counted Neutrophils % (Manual) 84 % Band Neutrophils % 8 % Lymphocytes % 2 % Monocytes % 6 % Neutrophils # (Manual) 24.5 TH/MM3 Differential Comment FINAL DIFF MANUAL Platelet Estimate HIGH Platelet Morphology Comment NORMAL Lactic Acid Level 2.9 mmol/L 2.3 mmol/L Troponin I 17.70 NG/ML Date/Time Procedure Status Source Growth 08/20/16 06:13 Aerobic Blood Culture Received Blood Peripheral Pending 08/20/16 06:13 Anaerobic Blood Culture Received Blood Peripheral Pending 08/18/16 20:40 Urine Culture - Final Complete Urine Random Urine Pseudomonas Aeruginosa 08/18/16 20:40 Cancelled Urine Clean Catch Physical Examination GENERAL: Pt is intubated HEENT: Pupils round and reactive to light; normocephalic; atraumatic; no jaundice. Throat is clear. NECK: Neck is supple. CHEST: CTA auscultation anteriorly. CARDIAC: Regular. ABDOMEN: Soft, nondistended, nontender, minimal bowel sounds, G-tube to [facility] EXTREMITIES: Right BKA, LLE no edema SKIN: No rash; no jaundice. EMBEDDED SOFTWARE TEST ENGINEER: Pt is on mechanical ventilator (Susan Reese) Assessment and Plan Plan ASSESSMENT: - Anemia/Rectal bleeding. Pt was previously hospitalized from October 15, 2015 to July 18, 2016. During that hospitalization he was noted to be anemic secondary to anemia of chronic disease as well as possible myelosuppression for which he received blood transfusions and Procrit and was evaluated by hematology. Pt was seen by GI team during that admission for evaluation of iron deficiency anemia. He underwent incomplete colonoscopy on 08/05/16 which noted poor prep, internal hemorrhoids, recommendation to repeat in 3 days. At that time the repeat colonoscopy was not performed as the patient would not tolerate prep even with NGT in place. Pt had a PEG tube for feeding placed on 08/08/16 for maintaining his nutritional status. He was on Eliquis for anticoagulation and has ischemic cardiomyopathy. Pt coded 4 times yesterday and was transferred to [facility] and is currently intubated and sedated. Nursing staff reported that the pt had an episode of bright red rectal bleeding last night. His G-tube was placed to [facility] and he was started on Protonix gtt. Pt was transfused with one unit of PRBCs when his Hgb was noted to be 7.5. Hgb improved to 8.8 yesterday and awaiting repeat labs for today. Pt had out about 300cc of green fluid from the G-tube overnight. Currently with some pink tinged fluid in the canister from G-tube suction. The pts Eliquis was last given on 08/19/16. He is still on ASA. Pt is on pressors. - Cardiac arrest x 4 s/p CPR. Per public health analyst and Cardiology. - Acute respiratory failure on mechanical ventilation per [place] - Encephalopathy suspected anoxic brain damage in the setting of poor baseline neurologic function as pt is off sedation and poor neuro status. - Elevated troponin with suspected acute NV. Cardiology following. No cardiac cath planned at this time. - Acute on chronic renal failure with multiple electrolyte abnormalities. Per renal - CHF, CAD, HTN, DM, Hx CVA per primary. PLAN: - Pt is not stable at this time for any endoscopic evaluation. - Cont. Protonix gtt - Keep NGT to LIWS for now - Monitor for any active GIB and notify GI if any active bleeding noted. - Monitor HH and transfuse as necessary - Supportive care - Further recommendations as the case develops - The pt was seen and examined by myself and Dr. Martel, this note was written on her behalf. (Susan Reese) Physician Comments seen, examined agree with above (Danica Martel MD) Susan Reese Aug 21, 2016 09:00 Danica Martel MD Aug 21, 2016 09:38
--- NOTE | 2016-08-21 09:29 | HHI.FPPN ---
Subjective Remarks Pt seen and examined this morning. On dopamine drip. HR 90-100s. BP 110-120s/70- 80s. Pt not currently sedated, not responsive to verbal commands. Currently intubated with ventilator settings of PEEP: 5, Fio2: 40%, TV 550. Objective Vitals Vital Signs Date Time Temp Pulse Resp B/P Pulse Ox O2 Delivery O2 Flow Rate FiO2 08/21/16 07:15 100 50 08/21/16 06:00 99.0 95 20 125/85 100 118/72 08/21/16 04:00 99.2 100 20 123/85 100 127/78 08/21/16 03:45 100 100 08/21/16 02:00 99.0 98 21 127/89 100 123/74 08/21/16 01:40 99 50 08/21/16 00:00 99.3 95 20 115/72 100 115/80 08/20/16 22:00 99.5 96 20 114/72 100 115/76 08/20/16 20:01 98 50 08/20/16 20:00 100.1 98 20 114/78 100 114/72 08/20/16 18:00 97.9 98 20 100 111/77 08/20/16 16:00 97.9 98 20 100 127/79 08/20/16 15:11 100 60 08/20/16 14:00 97.9 92 20 100 119/76 08/20/16 12:00 98.0 94 20 100 114/73 08/20/16 10:00 98.6 100 22 88 109/70 08/20/16 09:39 100 100 I/O 08/20/16 08/20/16 08/20/16 08/21/16 08/21/16 08/21/16 07:00 15:00 23:00 07:00 15:00 23:00 Intake Total 0 ml 566 ml 429 ml 222 ml Output Total 100 ml 300 ml 1025 ml 650 ml Balance -100 ml 266 ml -596 ml -428 ml Intake Oral 0 ml 0 ml IV Total 216 ml 429 ml 222 ml Packed Cells 250 ml Other 100 ml Output Urine Total 100 ml 300 ml 825 ml 450 ml Gastric Drainage Total 200 ml 200 ml # Bowel Movements 1 Result Diagram: 08/20/16 1630 08/20/16 0805 Objective Remarks GEN: Thin, frail 61 y/o M intubated and on dopamine drip SKIN: PEG tube site CDI without surrounding erythema, minimal sanguinous secretions in tubing CV: Regular rate and rhythm without obvious murmurs. LUNGS: Diffuse coarse breath sound auscultated in anterior lung albarran. No wheezes, rales, rhonchi. GI: Soft, nondistended with hypoactive bowel sounds. EXT: No cyanosis or edema. NEURO/PSYCH: Patient intubated and not responsive. A/P Assessment and Plan 61 yo M, hx of prolonged hospital stay from September 2015 - July 18, 2016, having returned to the hospital on July 22 for fall. Admitted for AMS, rhabdomyolysis , dehydration, hypernatremia and anemia. PEG tube has been placed due to decreased PO intake and dehydration. Patient is currently in critical condition due to ischemic cardiac event. Cardiology has been consulted, no interventions anticipated until pt shows clinical improvement. Discharge Planning Unclear at this time as pt is in critical condition. wdw Dr. Austin Problem List: (1) Myocardial infarction acute Status: Acute Plan: Most recent EKG with ST depression in leads V4-V6, poor R-wave progression, History of LBBB. Cardiology consulted, appreciate recommendations * No intervention at this time due to current condition and poor prognosis -Troponin elevated to 8.57--> 8.11-->17.70 -->greater than 40 -Pt has been on Eliquis due to prior stroke, currently on hold -Has been coded a total of 4 times due to cardiac arrest -Currently on Dopamine drip to maintain blood pressure and heart rate (2) Rectal bleeding Status: Acute Plan: Pt with Anemia and acute rectal bleeding was noted. -GI consulted, appreciate recommendations * Patient is currently not stable for EGD/colonoscopy. * Protonix drip * Patient to remain in GT * Continue to monitor for active GI bleed * Monitor H/H * Transfuse as needed (3) Pulmonary edema Status: Acute Plan: Pt with coarse breath sounds on exam. Chest x ray from this morning significant for acute pulmonary edema. -Critical care consulted, appreciate recommendations -Lasix 20mg IV x1 -Consider additional dose of IV lasix -Continue to monitor fluid status Imaging: CXR 08/20 0500: Low lung volumes with bibasilar consolidation. Consolidation could relate to atelectasis fo infiltrates. CXR 4/22 0815: ET tube in good position. Mild diffuse increased interstitial markings likely representing edema. (4) UTI (urinary tract infection) Status: Acute Plan: Repeat UA on 08/18 significant for hazy appearance, 30 protein, small occult blood, positive nitrites, large leukocyte esterase, many white blood cell clumps, moderate bacteria. Urine culture: Pseudomonas aeruginosa, sensitive to cefepime Continue Cefepime 1gm BID (08/19-) x anticipate duration of 10 days Consider repeat UA and culture History: Ucx 08/16: Pseudomonas aeruginosa, resistant to fluoroquinolone, gentamicin/ tobramycin but sensitive to Cefepime and Zosyn. Rocephin 1 g IV Daily (08/16-08/18 ) (5) Encounter for dietary counseling and surveillance Status: Acute Plan: Patient with inadequate/poor oral intake of fluids and solids since admission. Speech recommended full liquid diet with thickened liquids of nectar consistency. However patient has been refusing to eat. PEG tube placed on 08/08 given insufficient oral intake and nutrition. Tolerating TFs, up to 60ml/hr -GI on board, appreciate recommendations and intervention: * Continue TF per dietary, see below, held utill pt is more stable * Protonix 40mg PO Daily, consider transitioning to IV while pt is in the ICU * Ferrous Sulfate 325 mg PO Daily Dietary consulted, appreciate recommendations * Patient w/history of DM and CKD III-IV; therefore, Rec tube feeding w/Suplena , start @ 30ml/hr, increase 10ml Q4hr, as tolerated to goal rate 60ml/hr PLUS Beneprotein packet 3 times a day. Mix 1-pkt Beneprotein w/2-4oz water, stir until dissolved and administer by syringe through PEG tube. Suplena @ goal rate and Beneprotein tid to offer 2667 kcal, 82.8g Protein and 1063ml free water. * Free Water Flushes 200mL QID. Rec Cesar packet bid for wound healing(mix 1-packet Cesar w/8-10oz water, until dissolved, and administer by syringe through PEG tube). Labs reviewed-monitor renal labs closely. Additional Recs to follow r/t clinical course. (6) Decubitus ulcer, stage 3 Status: Acute Plan: Patient with large decubitus ulcer over lower back; appears to be healing with good granulation tissue -Wound care consulted, appreciate recommendations * Collagenase ointment to be applied daily * Wound dressing changes daily per RN (7) Anemia Status: Chronic Plan: Hx of anemia; likely secondary to anemia of chronic disease. Baseline Hg 9-10; likly ACD. Hb slightly trended down to 7.9 yesterday. -H/H currently 7.5/.7 -Pt to be transfused 1 unit PRBCs stat -Continue iron supplementation -Continue Protonix -FOBT positive GI consulted: appreciate recommendations See medications above EGD/colonoscopy performed 08/05 revealed internal hemorrhoids, small internal hemorrhoids, external hemorrhoids. However limited due to poor bowel prep Discussed case with Dr. Calderon. Initially plan was to repeat colonoscopy on 08/08; however patient has been unable to tolerate colon prep even with NGT. No urgency to repeat colonoscopy during this hospitalization. Given poor po intake, PEG tube placement on 08/08. Will defer repeat colonoscopy until patient is more clinically stable. Hematology Consulted: * Please see plan as below (8) [id number] kidney injury Status: Acute Plan: Baseline GFR 50s. Renal function currently 2.08, increased from 1.53 on . -Avoid nephrotoxic meds -Closely monitor I&O -Renal US: unremarkable Consult nephrology: appreciate recommendations * Monoclonal protein detected on serum RUDY * [place]/lambda ratio elevated. * Continue cholecalciferol Hematology consulted: appreciate recommendations. * Pt given 20,000 units of Epogen x1 on 08/16 * 1 Unit PRBC for anemia on 08/02, posttransfusion H/H 8.5/25 * Procrit 20K x1 given on 08/09 (1 unit given on 08/02) * Likely monoclonal gammopathy of undetermined significance (MGUS) * Recheck immune globulins once acute issues have resolved * Skeletal survey: Unremarkable study with median sternotomy and multiple gallstones noted. (9) Altered mental status Status: Resolved Plan: Pt likely with recent anoxic brain injury due to decreased brain perfusion secondary to cardiac arrest. Pt has had multiple ischemic strokes in the past including a lacunar infarct on 10/20/15. At patient's baseline he is able to communicate with yes or no answers. He has also been able to express himself using complete sentences. -If pt is not awake/alert tomorrow order EEG and consult neurology -Consider MRI when pt is stable Imaging: * Head CT from 08/21: No acute disease (10) Chronic systolic (congestive) heart failure Status: Chronic Plan: Patient with hx of CHF, EF 35% from September 2015. -Echo from 08/20 significant for EF of 20-25%. Diffuse hypokinesis. Mild to moderate regurgitation of the mitral valve. Mildly dilated left atrium. Small left pleural effusion. (11) Coronary artery disease Status: Chronic Plan: -Coreg 25mg po bid HELD -Eliquis 2.5mg BID HELD -Atorvastatin 80 mg po hs -Isosorbide Mononitrate 60 mg po hs HELD (12) HTN (hypertension) Status: Chronic Plan: Amlodipine 10 mg po daily, Held (13) Low vitamin D level Status: Acute Plan: Vitamin D low at 11.6. -Cholecalciferol 2000 units po Daily -Calcium carbonate 500 mg BID -Ergocalciferol 50,000 units x1 on 08/12 (14) Diabetes mellitus Status: Chronic Plan: A1C 6.9 on 11/25/15, not on oral medications as an out patient -Continue to monitor -Low dose SSI (15) Nutrition, metabolism, and development symptoms Status: Acute Plan: Fluids/Diet: Pt currently NPO due to acute change in cardiopulmonary status Electrolytes: Potassium low at 3.2 DVT PPX: Eliquis, hold due to anemia and GI bleed GI PPX: Protonix drip Problem Qualifiers (1) Anemia: Qualified Code: D50.8 - Other iron deficiency anemia (2) Altered mental status: Qualified Code: R41.82 - Altered mental status, unspecified altered mental status type (3) Coronary artery disease: Qualified Code: I25.10 - Coronary artery disease involving [place] heart without angina pectoris, unspecified vessel or lesion type (4) HTN (hypertension): Qualified Code: I10 - Essential hypertension (5) Diabetes mellitus: Qualified Code: E11.51 - Type 2 diabetes mellitus with diabetic peripheral angiopathy without gangrene, without long-term current use of insulin Subha Nation MD R2 Aug 21, 2016 09:28
[2016-08-21] MEDS ORDERED: GLUCAGON 1 MG/ML VIAL OTHER PRN (09:30)
[2016-08-21] MEDS ORDERED: ALTEPLASE RECOMBINANT 2 MG VIAL INTRACATH ONE (09:30)
--- NOTE | 2016-08-21 09:35 | PD.CARD.PN ---
Subjective Subjective Remarks Unresponsive unless stimulated Objective Medications Current Medications Medications (Trade) Dose Ordered Sig/Estuardo Route Start Time Stop Time Status Last Admin (Eliquis) 2.5 mg BID PO 07/25/16 21:00 Hold 08/19/16 21:20 (Lipitor) 80 mg HS PO 07/25/16 21:00 08/20/16 20:12 (Coreg) 25 mg BID PO 07/25/16 21:00 Hold 08/19/16 21:20 (Ferrous Sulfate) 325 mg DAILY@08 PO 07/26/16 08:00 08/19/16 09:45 (Imdur) 60 mg HS PO 07/25/16 21:00 Hold 08/19/16 21:19 (NS Flush) 2 ml UNSCH PRN IV FLUSH 07/25/16 18:30 (NS Flush) 2 ml BID IV FLUSH 07/25/16 21:00 08/20/16 20:12 (Narcan Inj) 0.4 mg UNSCH PRN IV 07/25/16 18:30 (Pill Splitter) 1 ea UNSCH PRN OTHER 07/25/16 18:45 (Norvasc) 10 mg DAILY PO 07/28/16 09:00 Hold 08/18/16 09:59 (Vitamin D3) 2,000 units DAILY PO 07/28/16 09:00 08/19/16 09:45 (Protonix) 40 mg DAILY PO 07/31/16 12:00 08/19/16 09:45 (Remeron) 15 mg HS PO 08/03/16 21:00 08/20/16 20:13 (Santyl Oint) 1 applic DAILY TOPICAL 08/04/16 14:30 08/20/16 09:00 (Free Water) 200 ml Q4HR G-TUBE 08/10/16 20:00 Hold 08/20/16 15:05 Calcium Carbonate 500 mg 500 mg Q12HR CHEW 08/12/16 09:00 08/20/16 20:12 Cefepime HCl 1000 mg/Sodium Chloride 100 ml @ 200 mls/hr Q12H IV 08/19/16 15:00 08/21/16 02:35 (Levophed-Dextrose Drip) 250 ml @ 0 mls/hr TITRATE IV 08/20/16 08:00 Terbutaline Sulfate 1 mg 1 mg UNSCH PRN SQ 08/20/16 07:45 (DOPamine INJ PREMIX) 500 ml @ 10.013 mls/ hr TITRATE IV 08/20/16 09:15 Terbutaline Sulfate 1 mg 1 mg UNSCH PRN SQ 08/20/16 09:15 Midazolam HCl 100 ml @ 0 mls/hr TITRATE IV 08/20/16 11:00 08/20/16 11:02 (Keppra Inj/NS Inj) 105 ml @ 420 mls/hr Q12HR IV 08/20/16 21:00 08/20/16 20:12 Aspirin 81 mg 81 mg DAILY G-TUBE 08/21/16 09:00 (Protonix Inj/NS Inj) 100 ml @ 10 mls/hr Q10H IV 08/20/16 20:00 08/21/16 05:35 Vital Signs / I&O Vital Signs Date Time Temp Pulse Resp B/P Pulse Ox O2 Delivery O2 Flow Rate FiO2 08/21/16 07:15 100 50 08/21/16 06:00 99.0 95 20 125/85 100 118/72 08/21/16 04:00 99.2 100 20 123/85 100 127/78 08/21/16 03:45 100 100 08/21/16 02:00 99.0 98 21 127/89 100 123/74 08/21/16 01:40 99 50 08/21/16 00:00 99.3 95 20 115/72 100 115/80 08/20/16 22:00 99.5 96 20 114/72 100 115/76 08/20/16 20:01 98 50 08/20/16 20:00 100.1 98 20 114/78 100 114/72 08/20/16 18:00 97.9 98 20 100 111/77 08/20/16 16:00 97.9 98 20 100 127/79 08/20/16 15:11 100 60 08/20/16 14:00 97.9 92 20 100 119/76 08/20/16 12:00 98.0 94 20 100 114/73 08/20/16 10:00 98.6 100 22 88 109/70 08/20/16 09:39 100 100 I/O 08/20/16 08/20/16 08/20/16 08/21/16 08/21/16 08/21/16 07:00 15:00 23:00 07:00 15:00 23:00 Intake Total 0 ml 566 ml 429 ml 222 ml Output Total 100 ml 300 ml 1025 ml 650 ml Balance -100 ml 266 ml -596 ml -428 ml Intake Oral 0 ml 0 ml IV Total 216 ml 429 ml 222 ml Packed Cells 250 ml Other 100 ml Output Urine Total 100 ml 300 ml 825 ml 450 ml Gastric Drainage Total 200 ml 200 ml # Bowel Movements 1 Physical Exam Obtunded Neck supple Chest: few rhonchi CV S1S2 RRR Bradycardia yest Echo severe LV dysfn Ext no edema, Right BKA Laboratory Laboratory Tests Test 08/20/16 08/20/16 08/20/16 08/20/16 09:55 11:10 13:20 16:30 Blood Gas Puncture Site DM Blood Gas Patient Temperature 98.6 Blood Gas HCO3 22 mmol/L Blood Gas Base Excess -2.1 mmol/L Blood Gas Oxygen Saturation 97 % Arterial Blood pH 7.39 Arterial Blood Partial 37 mmHg Pressure CO2 Arterial Blood Partial 135 mmHg Pressure O2 Arterial Blood Oxygen Content 12.5 Vol % Arterial Blood 1.5 % Carboxyhemoglobin Arterial Blood Methemoglobin 0.6 % Blood Gas Hemoglobin 9.0 G/DL Oxygen Delivery Device VENT Blood Gas Ventilator Setting AC/20/550/5/100 Blood Gas Inspired Oxygen 100 % White Blood Count 26.6 TH/MM3 Red Blood Count 3.21 MIL/MM3 Hemoglobin 8.6 GM/DL 8.8 GM/DL Hematocrit 26.2 % 26.1 % Mean Corpuscular Volume 81.6 FL Mean Corpuscular Hemoglobin 26.6 PG Mean Corpuscular Hemoglobin 32.6 % Concent Red Cell Distribution Width 17.1 % Platelet Count 424 TH/MM3 Mean Platelet Volume 7.4 FL Differential Total Cells 100 Counted Neutrophils % (Manual) 84 % Band Neutrophils % 8 % Lymphocytes % 2 % Monocytes % 6 % Neutrophils # (Manual) 24.5 TH/MM3 Differential Comment FINAL DIFF MANUAL Platelet Estimate HIGH Platelet Morphology Comment NORMAL Lactic Acid Level 2.9 mmol/L 2.3 mmol/L Troponin I 17.70 NG/ML Imaging Last [address] 08/21/16 0000 Signed Impressions: Service Date/Time: Sunday, August 21, 2016 03:47 - CONCLUSION: No acute disease. Daryl Prabhakar Jr., MD Chest X-Ray 08/20/16 0500 Signed Impressions: Service Date/Time: Saturday, August 20, 2016 05:06 - CONCLUSION: Low lung volumes with bibasilar consolidation. Consolidation could relate to atelectasis or infiltrates. Daryl Prabhakar Jr., MD Chest X-Ray 08/20/16 0000 Signed Impressions: Service Date/Time: Saturday, August 20, 2016 08:15 - CONCLUSION: 1. ET tube in good position. 2. Mild diffuse increased interstitial markings likely representing edema. Camacho Santana MD Assessment and Plan Problem List: (1) Ischemic cardiomyopathy Assessment and Plan: Severe (2) Non-ST elevation MN (NSTEMI) Assessment and Plan Patient is obtunded, extremely poor quality of life. I do not recommend invasive procedures like cath, coronary revasc or AICD. I will see on prrn basis - please call if needed for cardiology assistance. Damián Arias MD Aug 21, 2016 09:35
[2016-08-21] MEDS: ASPIRIN 81 MG CHEW TAB G-TUBE SCH (09:57)
[2016-08-21] MEDS: CHOLECALCIFEROL (VIT D3) 1000 UNIT TAB PO SCH (09:57)
[2016-08-21] MEDS: CALCIUM CARBONATE 500 MG CHEWABLE TAB CHEW SCH ×2 (09:58→20:42)
[2016-08-21] MEDS: levETIRAcetam INJ 500 MG in SODIUM CHLORIDE 0.9% INJ 100 ML IV SCH ×2 (09:59→20:42)
[2016-08-21 10:00] LABS: BASOPHIL % 0.2 % (0.0-2.0); EOSINOPHIL % 0.2 % (0.0-4.0); HEMATOCRIT 24.8 % (39.0-51.0); HEMO FLAGS DIFF FINAL; LYMPH % 5.8 % (9.0-44.0); LYMPHOCYTE # 1.1 TH/MM3 (1.0-4.8); MEAN CELL VOLUME 80.7 FL (80.0-100.0); MEAN CORPUSCULAR HEMOGLOBIN 26.9 PG (27.0-34.0); MEAN CORPUSCULAR HGB CONC 33.3 % (32.0-36.0); MONO % 5.6 % (0.0-8.0); NEUT % 88.2 % (16.0-70.0); PLATELET COUNT 345 TH/MM3 (150-450); RED BLOOD COUNT 3.07 MIL/MM3 (4.50-5.90); RED CELL DISTRIBUTION WIDTH 17.2 % (11.6-17.2); WHITE BLOOD COUNT 18.1 TH/MM3 (4.0-11.0)
[2016-08-21 10:23] LABS: ANION GAP 11 MEQ/L (5-15); AST (GOT) 283 U/L (15-37); BICARBONATE 28.4 MEQ/L (21.0-32.0); BLOOD UREA NITROGEN 39 MG/DL (7-18); CHLORIDE 101 MEQ/L (98-107); GLOMERULAR FILTRATION RATE 35 ML/MIN (>89); MAGNESIUM 1.5 MG/DL (1.5-2.5); POTASSIUM 3.2 MEQ/L (3.5-5.1); SODIUM (NA) 140 MEQ/L (136-145)
[2016-08-21 10:30] LABS: ALKALINE PHOSPHATASE 135 U/L (45-117); ALT (GPT) 204 U/L (12-78); TOTAL BILIRUBIN ADULT 0.8 MG/DL (0.2-1.0)
[2016-08-21] MEDS: INSULIN ASPART SUPPLEMENTAL SCALE SQ SCH ×3 (11:00→20:56)
--- NOTE | 2016-08-21 13:49 | EKG ---
Date Performed: 08/20/2016 Time Performed: 05:34:54 PTAGE: 61 years EKG: Sinus rhythm with borderline 1st degree A-V block Left axis deviation Left bundle branch block with secondary ST- T wave changes Inferior infarct - age undetermined Possible Anteroseptal infarct - age undetermined L ateral ST-T changes may be due to myocardial ischemia Low QRS voltages in limb leads Compared to prio r tracing no significant change Abnormal ECG NO PREVIOUS TRACING DOCTOR: Pedro Luis Quezada Interpretating Date/Time 08/21/2016 13:47:41
--- NOTE | 2016-08-21 13:51 | EKG ---
Date Performed: 08/20/2016 Time Performed: 07:33:04 PTAGE: 61 years EKG: Sinus rhythm . Previous Left bundle branch block has progressed to intraventricular conduction delay Possible ante roseptal MD, age undetermined Lateral ST depression, possible acute ischemia Clinical correlation is strongly recommended Abnormal ECG PREVIOUS TRACING : 07/25/2016 19.49 DOCTOR: Pedro Luis Quezada Interpretating Date/Time 08/21/2016 13:49:51
--- NOTE | 2016-08-21 13:54 | HHI.PR ---
Addendum to Inpatient Note Addendum Reason: Additional Documentation Additional Information Mr. Amado is a 61-year-old male with a past medical history of coronary artery disease, HTN, HLD, DM, CHF, PAD who is admitted for AMS. On admission, patient was found at home by DCF lying in his own feces. Of note, patient was recently discharged from a 9 month hospital stay a week before admission. Patient was found to have hypernatremia and acute on chronic kidney injury likely secondary to rhabdomyolysis. Patient was admitted and started on fluids. Initial head imaging was negative for acute process. No signs of infectious process. Nephrology was consulted for the kidney injury. Patient was continued on his home medications of Eliquis, Lipitor, isosorbide mononitrate, iron, amlodipine. Nephrology recommended continuing fluids. Renal ultrasound showed no obstructive process. Kidney serologies were evaluated. Kidney function has greatly improved since admission. Sodium has also normalized. Admission labs were also significant for monoclonal gammopathy and elevated/ lambda light chain ratio. Hematology was consulted and diagnosed the patient with Monoclonal Gammopathy of Undetermined Significance (MGUS) with anemia due to chronic renal disease. His bone scan was negative for a lytic lesion. He has received multiple doses of Procrit to assist with his anemia. They plan to repeat gammopathy studies once his acute issues are resolved. Neurologically the medical team is unsure of patient's mental status baseline prior to hospitalization as he has been nonverbal throughout his hospitalization. The patient intermittently responds to yes/no questions, but does not speak in sentences at baseline. However, on the rare occasion does participate in the interview and respond appropriately. Initial head CT showed lacunar infarcts BL with worse lesions on the L, but negative for any acute process. Patient was also found to have a down trending H&H. Patient came in on Eliquis and iron supplements. Hemoccult was positive. GI was consulted, who recommended EGD/colonoscopy initially. However due to the patient's chronic medical problems, poor prognosis, and poor PO intake GI recommended G tube placement. G tube was placed on 08/08/16 and tube feeds per dietary's instructions have gone without complication. PPI, Eliquis, and iron supplements were continued. Patient was also found to have a stage 3 decubitus ulcer that was positive for Pseudomonas and MRSA per wound culture. Current granulation tissues appears healthy and the patient was not treated for infection as he was afebrile and without signs of sepsis. He was also found to have a UTI which was initially treated with Rocephin, however repeat UA showed continued infection. He is currently being treated with Cefepime as his urine has multi-resistant Pseudomonas on both primary and repeat UC. Patient was assisted by CM to establish a DCF appointed guardian prior to discharge to assist with POA decisions as at his baseline the patient is unable to care and make appropriate decisions for himself. [facility] and was accepted for [facility], however due to financial restrictions from DCF, the patent was unable to be placed until his finances, guardianship, and Medicaid application was complete. Unfortunately on 08/20/16, the patient became tachypneic and unresponsive. Advanced cardiac life support was performed four times. The patient was intubated, transferred to the ICU, and stabilized on a dopamine infusion. He was found to have an acute myocardial infarction with his most recent troponin greater than [address] depression in leads V4-V6. Cardiology was consulted who does not recommend any invasive procedures at this time. He remains intubated and sedated under the management of critical care who recommends neurological consult if his status does not improve. GI has also been reconsulted as he has had a new episode of rectal bleeding. [facility] has been contacted multiple times by the team to establish goals of care and code status going forward, however there has been no response. Nate Avalos MD R1 Aug 21, 2016 13:54
--- NOTE | 2016-08-21 15:12 | HHI.CCPN ---
Subjective Remarks/Hospital Course 08/20: 61-year-old male admitted on 07/25/2016 by family medicine service after he was found at home by DCF not being able to take care of himself lying on the ground in his own feces. Previously patient was in the hospital from October 15, 2015 to July 18, 2016. During this hospitalization he was noted to be anemic secondary to anemia of chronic disease as well as possible myelosuppression for which she received blood transfusions and Procrit and was evaluated by hematology. He also has a PEG tube placed during this admission for maintaining his nutritional status. His neurologic status fluctuates and he goes from conversing to being encephalopathic. He has had multiple strokes and does have coronary artery disease with previous CABG and stenting. He is on Eliquis for anticoagulation and does have an ischemic cardiomyopathy as well as diabetes mellitus. He was recently started on Rocephin for a UTI. This morning patient was noted to have hypotension and some altered mental status. He was given fluid bolus and a chest x-ray was done earlier. Subsequently around 7 AM CODE BLUE cardiac arrest code was called for which I responded to the floor. At the time of my arrival patient was being ventilated with bag mask ventilation. He initially had agonal respirations. He was noted to be in asystole on the monitor subsequently so CPR/ACLS protocol was initiated. Patient had return of circulation following about 15 minutes of ACLS protocol and was noted to have a left bundle branch block which appeared old. He was started on an epinephrine drip for hypotension and transported to [facility]. Shortly following his arrival to the unit he underwent another episode of bradycardia and subsequently lost his pulse. CPR/ACLS protocol was initiated and he had return of spontaneous circulation following about 5 minutes of ACLS. He had a central line and a femoral arterial line placed emergently by myself. Stat labs were sent as well as ABG. Patient was continued on mechanical ventilation. He subsequently had 2 further episodes of cardiac arrest from which he was successfully resuscitated. History was obtained by reviewing records and discussion with family medicine team and floor as well as floor nursing staff. 08/21: Remains sedated, orally intubated on mechanical ventilation. Sedation held this morning to assess neurologic status. On dopamine 5 mics per KG per minute. Off other pressors at this time. Troponin greater than 40 this morning. On Protonix drip which was started yesterday for some rectal bleeding which is now stopped. EF 25% on 2-D echo done yesterday. Nikunj continues to be on hold. On aspirin. Objective Vital Signs Date Time Temp Pulse Resp B/P Pulse Ox O2 Delivery O2 Flow Rate FiO2 08/21/16 12:46 100 40 08/21/16 12:00 97.7 95 20 126/82 Intake and Output 08/20/16 08/20/16 08/21/16 08:00 16:00 00:00 Intake Total 0 ml 566 ml 429 ml Output Total 100 ml 300 ml 1025 ml Balance -100 ml 266 ml -596 ml Result Diagram: 08/21/16 0920 08/21/1620 Other Results Laboratory Tests Test 08/20/16 08/21/16 16:30 09:20 Hemoglobin 8.8 GM/DL 8.2 GM/DL Hematocrit 26.1 % 24.8 % Lactic Acid Level 2.3 mmol/L 1.3 mmol/L Troponin I 17.70 NG/ML GREATER THAN 40.00 NG/ML White Blood Count 18.1 TH/MM3 Red Blood Count 3.07 MIL/MM3 Mean Corpuscular Volume 80.7 FL Mean Corpuscular Hemoglobin 26.9 PG Mean Corpuscular Hemoglobin 33.3 % Concent Red Cell Distribution Width 17.2 % Platelet Count 345 TH/MM3 Mean Platelet Volume 7.0 FL Neutrophils (%) (Auto) 88.2 % Lymphocytes (%) (Auto) 5.8 % Monocytes (%) (Auto) 5.6 % Eosinophils (%) (Auto) 0.2 % Basophils (%) (Auto) 0.2 % Neutrophils # (Auto) 16.0 TH/MM3 Lymphocytes # (Auto) 1.1 TH/MM3 Monocytes # (Auto) 1.0 TH/MM3 Eosinophils # (Auto) 0.0 TH/MM3 Basophils # (Auto) 0.0 TH/MM3 CBC Comment DIFF FINAL Differential Comment Sodium Level 140 MEQ/L Potassium Level 3.2 MEQ/L Chloride Level 101 MEQ/L Carbon Dioxide Level 28.4 MEQ/L Anion Gap 11 MEQ/L Blood Urea Nitrogen 39 MG/DL Creatinine 1.98 MG/DL Estimat Glomerular Filtration 35 ML/MIN Rate Random Glucose 146 MG/DL Calcium Level 8.6 MG/DL Phosphorus Level 2.9 MG/DL Magnesium Level 1.5 MG/DL Total Bilirubin 0.8 MG/DL Aspartate Amino Transf 283 U/L (AST/SGOT) Alanine Aminotransferase 204 U/L (ALT/SGPT) Alkaline Phosphatase 135 U/L Total Protein 6.3 GM/DL Albumin 2.0 GM/DL Microbiology Date/Time Procedure Status Source Growth 08/18/16 20:40 Urine Culture - Final Complete Urine Random Urine Pseudomonas Aeruginosa Imaging Last 24 hours Impressions Chest X-Ray 08/20/16 0500 Signed Impressions: Service Date/Time: Saturday, August 20, 2016 05:06 - CONCLUSION: Low lung volumes with bibasilar consolidation. Consolidation could relate to atelectasis or infiltrates. Daryl Prabhakar Jr., MD Chest X-Ray 08/20/16 0000 Signed Impressions: Service Date/Time: Saturday, August 20, 2016 08:15 - CONCLUSION: 1. ET tube in good position. 2. Mild diffuse increased interstitial markings likely representing edema. Camacho Santana MD Last Impressions Chest X-Ray 08/20/16 0500 Signed Impressions: Service Date/Time: Saturday, August 20, 2016 05:06 - CONCLUSION: Low lung volumes with bibasilar consolidation. Consolidation could relate to atelectasis or infiltrates. Daryl Prabhakar Jr., MD Bone Osseous Survey 07/31/16 0000 Signed Impressions: Service Date/Time: Sunday, July 31, 2016 16:09 - CONCLUSION: Unremarkable bone survey. Incidental note made of median sternotomy. Multiple gallstones. Richard Gerber MD Head CT 07/25/16 1644 Signed Impressions: Service Date/Time: Monday, July 25, 2016 17:19 - CONCLUSION: 1. Lacunar infarcts bilaterally, worse on the left. 2. Negative for an acute process. Didier Clay MD FACR Renal Ultrasound 07/25/16 0000 Signed Impressions: Service Date/Time: Monday, July 25, 2016 20:55 - CONCLUSION: 1. Tiny nonobstructing calcified left renal calculi. 2. No hydronephrosis or solid renal mass. Efren Cleaning MD Objective Remarks HEENT/ Neuro: Encephalopathic off sedation, negligible eye opening with painful stimuli, moves all 4 extremities with painful stimuli ? Localizing/ withdraws, orally intubated, Pallor present, no icterus, tongue/ mucosa moist Neck: No JVD Chest/Pulm: on mech vent, good air entry bilaterally, bilateral coarse crackles , no wheezing. CVS: S1-S2 regular, no murmur GI/abdomen: soft, nontender, bowel sounds sluggish. PEG tube in place Extremities: warm bilaterally, trace bilateral edema Urinary Catheter: Yes Assessment to: Continue A/P Assessment and Plan 61-year-old male with: Cardiac arrest status post CPR Acute respiratory failure on mechanical ventilation Pulmonary edema Shock(resolved) Encephalopathy suspected anoxic brain damage in the setting of poor baseline neurologic function: Elevated troponin with acute LA Ischemic cardiomyopathy History of CHF with EF 35% PAT/ CKD History of strokes Anemia of chronic disease Diabetes mellitus Myelosuppression Monoclonal gammopathy Sacral decubitus ulcer Status post PEG tube placement UTI Possible sepsis Plan: Neuro: Hold versed gtt, follow neuro status. Suspect anoxic brain injury secondary to multiple cardiac arrests. Has had multiple strokes before. Head CT negative for bleed (08/21) was on Eliquis for prior strokes however currently on hold due to rectal bleeding. Restart anticoagulation when okay with GI. Cardiovascular: Off epinephrine/Levophed. On dopamine drip 5mcg/kg/min. EKG with left bundle branch block. Troponin greater than 40 noted. Cardiology: Dr. Damián Arias not planning any intervention at this time due to poor neurologic status and elevated creatinine. Continue Aspirin. Eliquis last dose on 08/19 pm - continue holding due to rectal bleed 08/20. 2D echo with diffuse hypokinesis, LVEF 25%(08/20) Pulmonary: Continue mechanical ventilation, vent bundle, bronchodilators as needed. GI/liver: Will start PEG feeds with Glucerna @ 30cc/hr. Advance to goal tomorrow if tolerated. Renal/: Given Lasix 80 mg IV stat on 08/20 for pulmonary edema. Strict intake output, monitor and replete electrolites, follow BUN creatinine. Resume lasix to maintain even to slightly negative fluid balance Endocrine: SSI for glycemic control Heme: Transfused 1 unit PRBC on 08/20. Follow CBC. Being followed by hematology. Will transfuse 1 unit PRBCs today in view of acute LA to bring hemoglobin closer to 9 g percent ID: On Cefepime for UTI. Urine culture with Pseudomonas recently. Repeat cultures sent. Prophylaxis: PPI/SCDs. Holding anticoagulation with Eliquis due to rectal bleeding on 08/20. Clear with GI prior to starting subcutaneous heparin. Lines: Left femoral central venous catheter, left femoral arterial line placed on 08/20 Prognosis appears extremely poor. Condition critical. Discussed with family medicine service. Discussed with ICU nursing staff. Time spent on critical care excluding procedures: 45 minutes Win Parks MD Aug 21, 2016 15:06
[2016-08-21] MEDS ORDERED: MIDAZOLAM 100 MG/ML INJ 100 ML IV SCH (15:15)
[2016-08-21] MEDS ORDERED: SODIUM CHLOR 0.9% 250 ML INJ 250 ML IV ONE (15:15)
[2016-08-21] MEDS: FUROSEMIDE 40 MG/4 ML VIAL IV PUSH SCH (17:08)
[2016-08-21] MEDS: COLLAGENASE OINT 30 GM TUBE TOPICAL SCH (17:10)
[2016-08-21 18:53] LABS: HEMATOCRIT 26.1 % (39.0-51.0)
[2016-08-21] MEDS: ATORVASTATIN 80 MG TAB PO SCH (20:41)
[2016-08-21] MEDS: MIRTAZAPINE 15 MG TAB PO SCH (20:42)
[2016-08-22] VITALS (16 sets, daily range): BP systolic 97–129; BP diastolic 70–83; PULSE 81–89; RESP 20; TEMP 97.9–99.9; O2SAT 100
[2016-08-22] MEDS: CEFEPIME INJ 1,000 MG in SODIUM CHLORIDE 0.9% INJ 100 ML IV SCH ×2 (02:02→15:24)
[2016-08-22] MEDS: PANTOPRAZOLE INJ 80 MG in SODIUM CHLORIDE 0.9% INJ 100 ML IV SCH (02:06)
[2016-08-22 02:32] LABS: AUTOMATED NEUTROPHIL # 14.6 TH/MM3 (1.8-7.7); BASOPHIL # 0.1 TH/MM3 (0-0.2); BASOPHIL % 0.7 % (0.0-2.0); EOSINOPHIL % 0.2 % (0.0-4.0); HEMATOCRIT 25.8 % (39.0-51.0); HEMO FLAGS DIFF FINAL; LYMPH % 5.5 % (9.0-44.0); LYMPHOCYTE # 0.9 TH/MM3 (1.0-4.8); MEAN CELL VOLUME 80.7 FL (80.0-100.0); MEAN CORPUSCULAR HEMOGLOBIN 27.1 PG (27.0-34.0); MEAN CORPUSCULAR HGB CONC 33.6 % (32.0-36.0); MONO % 5.5 % (0.0-8.0); NEUT % 88.1 % (16.0-70.0); PLATELET COUNT 311 TH/MM3 (150-450); RED CELL DISTRIBUTION WIDTH 17.1 % (11.6-17.2); WHITE BLOOD COUNT 16.6 TH/MM3 (4.0-11.0)
[2016-08-22 02:48] LABS: ALT (GPT) 183 U/L (12-78); ANION GAP 10 MEQ/L (5-15); AST (GOT) 158 U/L (15-37); BICARBONATE 26.4 MEQ/L (21.0-32.0); BLOOD UREA NITROGEN 39 MG/DL (7-18); CHLORIDE 104 MEQ/L (98-107); GLOMERULAR FILTRATION RATE 38 ML/MIN (>89); MAGNESIUM 1.4 MG/DL (1.5-2.5); SODIUM (NA) 140 MEQ/L (136-145)
[2016-08-22 02:50] LABS: ALKALINE PHOSPHATASE 116 U/L (45-117); TOTAL BILIRUBIN ADULT 0.9 MG/DL (0.2-1.0)
[2016-08-22] MEDS: INSULIN ASPART SUPPLEMENTAL SCALE SQ SCH ×4 (06:27→21:00)
[2016-08-22] MEDS ORDERED: POTASSIUM CHLORIDE 20 MEQ PWD PACKET G-TUBE ONE (07:15)
[2016-08-22] MEDS: FERROUS SULFATE 325 MG (65 MG ELEMENTAL IRON) TAB PO SCH (08:00)
--- NOTE | 2016-08-22 08:30 | HHI.FPPN ---
Subjective Remarks Currently intubated and sedated. Unresponsive. (Balbir Nguyễn MD R2) Objective Vitals Vital Signs Date Time Temp Pulse Resp B/P Pulse Ox O2 Delivery O2 Flow Rate FiO2 08/22/16 04:00 98.4 82 20 115/79 100 126/77 08/22/16 03:24 100 40 08/22/16 00:01 100 40 08/22/16 00:00 99.9 89 20 103/77 100 109/70 08/21/16 20:03 100 40 08/21/16 20:00 98.5 91 20 126/78 100 119/83 08/21/16 16:00 98.5 92 20 121/75 100 08/21/16 15:44 100 40 08/21/16 12:46 100 40 08/21/16 12:00 97.7 95 20 126/82 99 08/21/16 10:00 98.8 95 20 121/74 100 I/O 08/21/16 08/21/16 08/21/16 08/22/16 08/22/16 08/22/16 07:00 15:00 23:00 07:00 15:00 23:00 Intake Total 222 ml 564 ml 250 ml 248 ml Output Total 650 ml 425 ml 750 ml 700 ml Balance -428 ml 139 ml -500 ml -452 ml IV Total 222 ml 564 ml 250 ml 248 ml Output Urine Total 450 ml 400 ml 650 ml 650 ml Gastric Drainage Total 200 ml 25 ml 100 ml 50 ml (Balbir Nguyễn MD R2) Result Diagram: 08/22/16 0200 08/22/16 0200 Objective Remarks GEN: Thin, frail 61 y/o M intubated and on dopamine drip SKIN: PEG tube site CDI without surrounding erythema, minimal sanguinous secretions in tubing CV: Regular rate and rhythm without obvious murmurs. LUNGS: Diffuse coarse breath sound auscultated in anterior lung albarran. No wheezes, rales, rhonchi. GI: Soft, nondistended with hypoactive bowel sounds. EXT: No cyanosis or edema. NEURO/PSYCH: Patient intubated and not responsive. (Balbir Nguyễn MD R2) A/P Assessment and Plan 61 yo M, hx of prolonged hospital stay from September 2015 - July 18, 2016, having returned to the hospital on July 22 for fall. Admitted for AMS, rhabdomyolysis , dehydration, hypernatremia and anemia. PEG tube has been placed due to decreased PO intake and dehydration. Patient is currently in critical condition due to ischemic cardiac event. Cardiology has been consulted, no interventions anticipated until pt shows clinical improvement. Discharge Planning Unclear at this time as pt is in critical condition. wdw Dr. Austin (Balbir Nguyễn MD R2) Attending Attestation Pt. examined and case discussed with resident physicians I have read the above note and agree with the assessment/plan as discussed with me I was involved in all medical decision making for this patient Abiodun Austin MD (Abiodun Austin MD) Problem List: (1) Myocardial infarction acute Status: Acute Plan: Most recent EKG with ST depression in leads V4-V6, poor R-wave progression, History of LBBB. Cardiology consulted, appreciate recommendations * No intervention at this time due to current condition and poor prognosis -Troponin elevated to 8.57--> 8.11-->17.70 -->greater than 40 -Pt has been on Eliquis due to prior stroke, currently on hold -Has been coded a total of 4 times due to cardiac arrest -Currently on Dopamine drip to maintain blood pressure and heart rate (2) Rectal bleeding Status: Acute Plan: Pt with Anemia and acute rectal bleeding was noted. -GI consulted, appreciate recommendations * Patient is currently not stable for EGD/colonoscopy. * Protonix drip * Patient to remain in GT * Continue to monitor for active GI bleed * Monitor H/H * Transfuse as needed (3) Pulmonary edema Status: Acute Plan: Pt with coarse breath sounds on exam. -Critical care consulted, appreciate recommendations -Continue to monitor fluid status Imaging: CXR 08/20 0500: Low lung volumes with bibasilar consolidation. Consolidation could relate to atelectasis fo infiltrates. CXR 08/20 0815: ET tube in good position. Mild diffuse increased interstitial markings likely representing edema. (4) UTI (urinary tract infection) Status: Acute Plan: Repeat UA on 08/18 significant for hazy appearance, 30 protein, small occult blood, positive nitrites, large leukocyte esterase, many white blood cell clumps, moderate bacteria. Urine culture: Pseudomonas aeruginosa, sensitive to cefepime Continue Cefepime 1gm BID (08/19-) x anticipate duration of 10 days Consider repeat UA and culture History: Ucx 08/16: Pseudomonas aeruginosa, resistant to fluoroquinolone, gentamicin/ tobramycin but sensitive to Cefepime and Zosyn. Rocephin 1 g IV Daily (08/16-08/18 ) (5) Encounter for dietary counseling and surveillance Status: Acute Plan: Patient with inadequate/poor oral intake of fluids and solids since admission. Speech recommended full liquid diet with thickened liquids of nectar consistency. However patient has been refusing to eat. PEG tube placed on 08/08 given insufficient oral intake and nutrition. Tolerating TFs, up to 60ml/hr -GI on board, appreciate recommendations and intervention: * Continue TF per dietary, see below, held utill pt is more stable * Protonix 80 mg IV every 10 hours * Ferrous Sulfate 325 mg PO Daily Dietary consulted, appreciate recommendations * Patient w/history of DM and CKD III-IV; therefore, Rec tube feeding w/Suplena , start @ 30ml/hr, increase 10ml Q4hr, as tolerated to goal rate 60ml/hr PLUS Beneprotein packet 3 times a day. Mix 1-pkt Beneprotein w/2-4oz water, stir until dissolved and administer by syringe through PEG tube. Suplena @ goal rate and Beneprotein tid to offer 2667 kcal, 82.8g Protein and 1063ml free water. * Free Water Flushes 200mL QID. Rec Cesar packet bid for wound healing(mix 1-packet Cesar w/8-10oz water, until dissolved, and administer by syringe through PEG tube). Labs reviewed-monitor renal labs closely. Additional Recs to follow r/t clinical course. (6) Decubitus ulcer, stage 3 Status: Acute Plan: Patient with large decubitus ulcer over lower back; appears to be healing with good granulation tissue -Wound care consulted, appreciate recommendations * Collagenase ointment to be applied daily * Wound dressing changes daily per RN (7) Anemia Status: Chronic Plan: Hemoglobin stable Hematology consulted -Continue iron supplementation -Continue Protonix -FOBT positive GI consulted: appreciate recommendations EGD/colonoscopy performed 08/05 revealed internal hemorrhoids, small internal hemorrhoids, external hemorrhoids. However limited due to poor bowel prep; currently not a candidate for endoscopy/colonoscopy (8) [id number] kidney injury Status: Acute Plan: Currently stable Nephrology consulted -Avoid nephrotoxic meds -Closely monitor I&O -Renal US: unremarkable Hematology consulted: appreciate recommendations. (9) Altered mental status Status: Resolved Plan: Pt likely with recent anoxic brain injury due to decreased brain perfusion secondary to cardiac arrest. Pt has had multiple ischemic strokes in the past including a lacunar infarct on 10/20/15. At patient's baseline he is able to communicate with yes or no answers. He has also been able to express himself using complete sentences. -If pt is not awake/alert tomorrow order EEG and consult neurology -Consider MRI when pt is stable Imaging: * Head CT from 08/21: No acute disease (10) Chronic systolic (congestive) heart failure Status: Chronic Plan: Patient with hx of CHF, EF 35% from September 2015. -Echo from 08/20 significant for EF of 20-25%. Diffuse hypokinesis. Mild to moderate regurgitation of the mitral valve. Mildly dilated left atrium. Small left pleural effusion. Lasix 40 mg IV twice a day (11) Coronary artery disease Status: Chronic Plan: -Coreg 25mg po bid HELD -Eliquis 2.5mg BID HELD -Atorvastatin 80 mg po hs -Isosorbide Mononitrate 60 mg po hs HELD (12) HTN (hypertension) Status: Chronic Plan: Amlodipine 10 mg po daily, Held (13) Low vitamin D level Status: Acute Plan: Vitamin D low at 11.6. -Cholecalciferol 2000 units po Daily -Calcium carbonate 500 mg BID -Ergocalciferol 50,000 units x1 on 08/12 (14) Diabetes mellitus Status: Chronic Plan: A1C 6.9 on 11/25/15, not on oral medications as an out patient -Continue to monitor -Low dose SSI (15) Nutrition, metabolism, and development symptoms Status: Acute Plan: Fluids/Diet: Pt currently NPO due to acute change in cardiopulmonary status Electrolytes: Monitor and replace as needed DVT PPX: Eliquis, hold due to anemia and GI bleed GI PPX: Protonix drip (Balbir Nguyễn MD R2) Problem Qualifiers (1) Anemia: Qualified Code: D50.8 - Other iron deficiency anemia (2) Altered mental status: Qualified Code: R41.82 - Altered mental status, unspecified altered mental status type (3) Coronary artery disease: Qualified Code: I25.10 - Coronary artery disease involving washoe heart without angina pectoris, unspecified vessel or lesion type (4) HTN (hypertension): Qualified Code: I10 - Essential hypertension (5) Diabetes mellitus: Qualified Code: E11.51 - Type 2 diabetes mellitus with diabetic peripheral angiopathy without gangrene, without long-term current use of insulin Balbir Nguyễn MD R2 Aug 22, 2016 08:30 Abiodun Austin MD Aug 22, 2016 18:41
[2016-08-22] MEDS: COLLAGENASE OINT 30 GM TUBE TOPICAL SCH (09:00)
[2016-08-22] MEDS: PANTOPRAZOLE SOD 40 MG DELAYED RELEASE TAB PO SCH (09:00)
[2016-08-22] MEDS: levETIRAcetam INJ 500 MG in SODIUM CHLORIDE 0.9% INJ 100 ML IV SCH ×2 (10:08→21:38)
[2016-08-22] MEDS: CALCIUM CARBONATE 500 MG CHEWABLE TAB CHEW SCH ×2 (10:09→21:38)
[2016-08-22] MEDS: CHOLECALCIFEROL (VIT D3) 1000 UNIT TAB PO SCH (10:09)
[2016-08-22] MEDS: FUROSEMIDE 40 MG/4 ML VIAL IV PUSH SCH ×2 (10:09→18:53)
[2016-08-22] MEDS: ASPIRIN 81 MG CHEW TAB G-TUBE SCH (10:09)
[2016-08-22] MEDS: SODIUM CHLORIDE 0.9% FLUSH 10 ML FLUSH IV FLUSH SCH ×2 (10:10→21:00)
--- NOTE | 2016-08-22 11:50 | HHI.GIFU ---
Subjective Remarks Resting in bed. On ventilator, does not follow commands. Small amount of dark green gastric drainage in canister. Flushed and aspirated clear gastric secretions. No active bleeding. (Shayna Cortez) Objective Vitals I&O Vital Signs Date Time Temp Pulse Resp B/P Pulse Ox O2 Delivery O2 Flow Rate FiO2 08/22/16 10:00 85 08/22/16 08:56 100 30 08/22/16 08:00 99.0 84 20 129/83 100 08/22/16 08:00 87 08/22/16 04:00 98.4 82 20 115/79 100 126/77 08/22/16 03:24 100 40 08/22/16 00:01 100 40 08/22/16 00:00 99.9 89 20 103/77 100 109/70 08/21/16 20:03 100 40 08/21/16 20:00 98.5 91 20 126/78 100 119/83 08/21/16 16:00 98.5 92 20 121/75 100 08/21/16 15:44 100 40 08/21/16 12:46 100 40 08/21/16 12:00 97.7 95 20 126/82 99 I/O 08/21/16 08/21/16 08/21/16 08/22/16 08/22/16 08/22/16 07:00 15:00 23:00 07:00 15:00 23:00 Intake Total 222 ml 564 ml 250 ml 248 ml Output Total 650 ml 425 ml 750 ml 700 ml Balance -428 ml 139 ml -500 ml -452 ml IV Total 222 ml 564 ml 250 ml 248 ml Output Urine Total 450 ml 400 ml 650 ml 650 ml Gastric Drainage Total 200 ml 25 ml 100 ml 50 ml Laboratory Laboratory Tests Test 08/21/16 08/21/16 08/22/16 15:18 18:45 02:00 Blood Type O POSITIVE Crossmatch Leukocyte-Reduced Red Blood Cells Blood Bank Comment Hemoglobin 9.0 8.7 Hematocrit 26.1 25.8 White Blood Count 16.6 Red Blood Count 3.20 Mean Corpuscular Volume 80.7 Mean Corpuscular Hemoglobin 27.1 Mean Corpuscular Hemoglobin 33.6 Concent Red Cell Distribution Width 17.1 Platelet Count 311 Mean Platelet Volume 6.9 Neutrophils (%) (Auto) 88.1 Lymphocytes (%) (Auto) 5.5 Monocytes (%) (Auto) 5.5 Eosinophils (%) (Auto) 0.2 Basophils (%) (Auto) 0.7 Neutrophils # (Auto) 14.6 Lymphocytes # (Auto) 0.9 Monocytes # (Auto) 0.9 Eosinophils # (Auto) 0.0 Basophils # (Auto) 0.1 CBC Comment DIFF FINAL Differential Comment Sodium Level 140 Potassium Level 3.0 Chloride Level 104 Carbon Dioxide Level 26.4 Anion Gap 10 Blood Urea Nitrogen 39 Creatinine 1.84 Estimat Glomerular Filtration 38 Rate Random Glucose 124 Calcium Level 8.3 Phosphorus Level 2.8 Magnesium Level 1.4 Total Bilirubin 0.9 Aspartate Amino Transf 158 (AST/SGOT) Alanine Aminotransferase 183 (ALT/SGPT) Alkaline Phosphatase 116 Total Protein 6.3 Albumin 2.0 Date/Time Procedure Status Source Growth 08/20/16 06:13 Aerobic Blood Culture - Preliminary Resulted Blood Peripheral NO GROWTH IN 2 DAYS 08/20/16 06:13 Anaerobic Blood Culture - Preliminary Resulted Blood Peripheral NO GROWTH IN 2 DAYS 08/18/16 20:40 Urine Culture - Final Complete Urine Random Urine Pseudomonas Aeruginosa 08/18/16 20:40 Cancelled Urine Clean Catch Imaging Last Impressions Head CT 08/21/16 0000 Signed Impressions: Service Date/Time: Sunday, August 21, 2016 03:47 - CONCLUSION: No acute disease. Daryl Prabhakar Jr., MD Chest X-Ray 08/20/16 0500 Signed Impressions: Service Date/Time: Saturday, August 20, 2016 05:06 - CONCLUSION: Low lung volumes with bibasilar consolidation. Consolidation could relate to atelectasis or infiltrates. Daryl Prabhakar Jr., MD Bone Osseous Survey 07/31/16 0000 Signed Impressions: Service Date/Time: Sunday, July 31, 2016 16:09 - CONCLUSION: Unremarkable bone survey. Incidental note made of median sternotomy. Multiple gallstones. Richard Gerber MD Renal Ultrasound 07/25/16 0000 Signed Impressions: Service Date/Time: Monday, July 25, 2016 20:55 - CONCLUSION: 1. Tiny nonobstructing calcified left renal calculi. 2. No hydronephrosis or solid renal mass. Efren Cleaning MD Physical Exam HEENT: Normocephalic; atraumatic CHEST: Resp shallow/even. Diminished. OETT to vent. CARDIAC: RRR ABDOMEN: Soft, nondistended, nontender; no hepatosplenomegaly; bowel sounds are present in all four quadrants. PEG site free of redness, drainage, or swelling. Small amount of dark green drainage EXTREMITIES: Right BKA SKIN: Normal; no rash; no jaundice. SURVEY TECHNICIAN: Somnolent (DiegoShayna German ROBER) Assessment and Plan Plan ASSESSMENT: - Anemia/Rectal bleeding. Pt was previously hospitalized from October 15, 2015 to July 18, 2016. During that hospitalization he was noted to be anemic secondary to anemia of chronic disease as well as possible myelosuppression for which he received blood transfusions and Procrit and was evaluated by hematology. Pt was seen by GI team during that admission for evaluation of iron deficiency anemia. He underwent incomplete colonoscopy on 08/05/16 which noted poor prep, internal hemorrhoids, recommendation to repeat in 3 days. At that time the repeat colonoscopy was not performed as the patient would not tolerate prep even with NGT in place. Pt had a PEG tube for feeding placed on 08/08/16 for maintaining his nutritional status. He was on Eliquis for anticoagulation and has ischemic cardiomyopathy. Pt coded 4 times yesterday and was transferred to [facility] and is currently intubated. Nursing staff reported that the pt had an episode of bright red rectal bleeding Monday night. He has not had any further bleeding today. His HH is stable at this time. G tube to LIWS with small amount of dark green gastric secretions, he is on PRBC. His G-tube was placed to LIWS and he was started on Protonix gtt. The pts Eliquis was last given on 08/19/16. He is still on ASA. Pt is on pressors. Of note, he had cardiac arrest x 4 over weekend and it is possible that he could have some ischemia related to this. However, he has not had any further bleeding and therefore at this time, we will continue to monitor HH and consider egd/ colonoscopy once more stable. - Cardiac arrest x 4 s/p CPR. Per air boatswain and Cardiology. - Acute respiratory failure on mechanical ventilation per Ndt Inspector - Encephalopathy suspected anoxic brain damage in the setting of poor baseline neurologic function as pt is off sedation and poor neuro status. - Elevated troponin with suspected acute DE. Cardiology following. No cardiac cath planned at this time. - Acute on chronic renal failure with multiple electrolyte abnormalities. Per renal - CHF, CAD, HTN, DM, Hx CVA per primary. PLAN: - Glucerna 1.5 and increase to GR 60 mls/hr goal - Protonix 40mg IV BID - Monitor HH - Transfuse as necessary - Supportive care - Monitor for any active GIB and notify GI if any active bleeding noted. - EGD/Colonoscopy when more stable- timing to be determined - The pt was seen and examined by myself and Dr. Gómez, this note was written on his behalf. (Shayna Cortez) Physician Comments Patient seen and examined Agree with above Continue with current supportive care Monitor labs EGD and colonoscopy can be considered when patient is more stable or if actively bleeding Not much to add at this point from a GI perspective We will sign off but please reconsult once patient is deemed more appropriate for endoscopy (Sherman Gómez MD) Shayna Cortez Aug 22, 2016 11:50 Sherman Gómez MD Aug 22, 2016 22:43
--- NOTE | 2016-08-22 12:06 | MG ---
cc: KAMILAH TURNER M.D. Lab No: [id number] Date: 08/22/2016 Age: Sex: M Race: TEST NUMBER: [id number] TECHNIQUE A 17-channel EEG. DESCRIPTION The background rhythm is generally slow predominately in the delta frequency, roughly 3-4 Hz. There are some triphasic waves present as well. I do not see any definite epileptiform discharges. No lateralizing features are identified. INTERPRETATION Abnormal study on the basis of generalized slowing consistent with severe encephalopathy. MD ISSA [place] /11:38 AM /12:04 PM
[2016-08-22] MEDS: PANTOPRAZOLE SODIUM 40 MG VIAL IV PUSH SCH (12:27)
--- NOTE | 2016-08-22 15:07 | PD.CONS ---
Consult Service Palliative Care Consult Requested By MD Ch[facility] Primary Care Physician Camacho Goldberg MD Reason for Consultation a. To assist with evaluation and management of symptoms including: Pain, dyspnea b. To assist medical decision maker(s) with: better understanding of current medical conditions; weighing benefits/burdens of medical treatment options; making medical treatment decisions. HPI History of Present Illness Mr. Clemente is a 61-year-old male with past medical history of coronary artery disease, hypertension, diabetes, congestive heart failure, peripheral vascular disease, see KD, stage III, who was admitted for changes in mental status. Per report, he had been found at home by a DCF worker, locking in his own feces. He was found to have hypernatremia as well as acute on chronic injury, likely secondary to rhabdomyolysis. Apparently hes been on the floor several days and has not been eating. He was initially found to have a stage III decubitus was positive for Pseudomonas and MRSA. He was found to have a UTI with multiresistant Pseudomonas. Neurologically, he was able to respond with yes or no questions but not able to speak sentences at baseline. Prior medical records show that he had incurred a lacunar infarct, bilateral, with worst lesions on the left. He was able to follow a few commands. H&H was found to have trended down. Stools were heme positive. He reportedly was prescribed Elequis however there is question as to whether or not he was taking it as prior records show noncompliance with medications. Initial labs also identified monoclonal gammopathy and elevated lambda light chain ratios. Hematology was consulted and the patient was diagnosed with monoclonal gammopathy at undetermined significance with anemia due to chronic renal disease. He has received multiple doses of Procrit in the past to help the anemia. GI was also consulted in light of the heme positive stools and in light of his overall general debilitated state. On 08/08/16, a G-tube was placed for dietary feeding. On 08/20/16, the patient became tachypneic and unresponsive. Advanced cardiac life support was performed four times. The patient was intubated, transferred to the ICU, and stabilized on a dopamine infusion. He was found to have an acute myocardial infarction with troponins > [address] depression in leads V4-V6. Cardiology was consulted who did not recommend any invasive procedures at this time. GI has also been reconsulted as he had a new episode of rectal bleeding. At the time of my visit, he wakens to call of name. He is able to track me as I move around the room. He will follow a few simple commands. However, he will not respond yes or no to any questions. Does not appear to be in any distress at this time. He is intubated with a PEEP of 5 and FiO2 of 30 on PRVC/ AC. Palliative care was consulted to help with the establishment of goals of care however, DCF has been contacted multiple times by the team to establish goals of care and code status going forward, however there has been no response. Review of Systems ROS Limitations: Clinical Condition, Intubated Other ROS: Patient is intubated but awake, however, unable to provide any information. No family is available. Information is obtained from review of records Past Family Social History Coded Allergies: Pen-Vee K (Verified Allergy, Severe, THROAT SWELLS, 07/25/16) Penicillin (Verified Allergy, Unknown, SWELLING, 07/25/16) Uncoded Allergies: aspartame (Adverse Reaction, Severe, severe nose bleed, 10/24/13) Past Medical History Per previous records, CAD Non-STEMI times 3 HTN Lacunar CVA 2015 Hyperlipidemia DM CHF PAD CKD 3 SYLVIA Past Surgical History Per previous records, CABG 2002 Left kidney stent Tracheostomy as child Right BKA 2013 Reported Medications Reported at time of admission, however, it was questionable if he was actually taking them Eliquis (Apixaban) 2.5 Mg Tab 2.5 Mg PO BID 30 Days Norvasc (Amlodipine Besylate) 10 Mg Tab 10 Mg PO DAILY 30 Days Atorvastatin (Atorvastatin Calcium) 80 Mg Tab 80 Mg PO HS Start on 07/08/16 Quetiapine (Quetiapine Fumarate) 100 Mg Tab 100 Mg PO DAILY Quetiapine (Quetiapine Fumarate) 100 Mg Tab 150 Mg PO HS Isosorbide Mononitrate ER (Isosorbide Mononitrate) 60 Mg Tab 60 Mg PO HS Ferrous Sulfate 325 Mg Tab 325 Mg PO DAILY@08 Take 1 hour before you take Pepcid in the morning. Famotidine 20 Mg Tab 20 Mg PO BID Coreg (Carvedilol) 12.5 Mg Tab 25 Mg PO BID Current Medications Medications (Trade) Dose Ordered Sig/Estuardo Route Start Time Stop Time Status Last Admin (Eliquis) 2.5 mg BID PO 07/25/16 21:00 Hold 08/19/16 21:20 (Lipitor) 80 mg HS PO 07/25/16 21:00 08/21/16 20:41 (Coreg) 25 mg BID PO 07/25/16 21:00 Hold 08/19/16 21:20 (Ferrous Sulfate) 325 mg DAILY@08 PO 07/26/16 08:00 08/19/16 09:45 (Imdur) 60 mg HS PO 07/25/16 21:00 Hold 08/19/16 21:19 (NS Flush) 2 ml UNSCH PRN IV FLUSH 07/25/16 18:30 (NS Flush) 2 ml BID IV FLUSH 07/25/16 21:00 08/22/16 10:10 (Narcan Inj) 0.4 mg UNSCH PRN IV 07/25/16 18:30 (Pill Splitter) 1 ea UNSCH PRN OTHER 07/25/16 18:45 (Norvasc) 10 mg DAILY PO 07/28/16 09:00 Hold 08/18/16 09:59 (Vitamin D3) 2,000 units DAILY PO 07/28/16 09:00 08/22/16 10:09 (Remeron) 15 mg HS PO 08/03/16 21:00 08/21/16 20:42 (Santyl Oint) 1 applic DAILY TOPICAL 08/04/16 14:30 08/22/16 09:00 (Free Water) 200 ml Q4HR G-TUBE 08/10/16 20:00 Hold 08/20/16 15:05 Calcium Carbonate 500 mg 500 mg Q12HR CHEW 08/12/16 09:00 08/22/16 10:09 Cefepime HCl 1000 mg/Sodium Chloride 100 ml @ 200 mls/hr Q12H IV 08/19/16 15:00 08/22/16 02:02 Norepinephrine Bitartrate 250 ml @ 0 mls/hr TITRATE IV 08/20/16 08:00 (DOPamine INJ PREMIX) 500 ml @ 10.013 mls/ hr TITRATE IV 08/20/16 09:15 08/21/16 17:13 Terbutaline Sulfate 1 mg 1 mg UNSCH PRN SQ 08/20/16 09:15 (Keppra Inj/NS Inj) 105 ml @ 420 mls/hr Q12HR IV 08/20/16 21:00 08/22/16 10:08 (Aspirin Chew) 81 mg DAILY G-TUBE 08/21/16 09:00 08/22/16 10:09 (D50w (Vial) Inj) 25 ml UNSCH PRN IV PUSH 08/21/16 09:30 (Glucagon Inj) 1 mg UNSCH PRN OTHER 08/21/16 09:30 Furosemide 40 mg 40 mg BID@09,18 IV PUSH 08/21/16 18:00 08/22/16 10:09 (Versed Inj) 100 ml @ 0 mls/hr TITRATE IV 08/21/16 15:15 (Protonix Inj) 40 mg Q12H IV PUSH 08/22/16 12:15 08/22/16 12:27 Family History Father from heart disease. Mother family body dementia Substance Use Tobacco: One pack per day times 10 years Alcohol: No past history Prescription med abuse: No past history Illicits: No past history Psychosocial History 61-year-old male who had been living with his sister in a manufactured home for many years. . 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 Records indicate that he is single, never . No records of any children. He has been on disability for several years. Records indicate self-care neglect as well as noncompliance with recommended treatments. Spiritual/Cultural Factors None identified Living Will: Never completed Health Care Surrogate: Never completed Durable Power of Tableau Developer: Never completed Health Care Surrogate(s): There is no designated healthcare surrogate At this time. Ethical and Legal Issues Only has a surviving sister, it appears that t Physical Exam Vital Signs Date Time Temp Pulse Resp B/P Pulse Ox O2 Delivery O2 Flow Rate FiO2 08/22/16 12:04 100 30 08/22/16 12:00 98.8 81 20 110/73 100 08/22/16 12:00 81 08/22/16 10:00 85 08/22/16 08:56 100 30 08/22/16 08:00 99.0 84 20 129/83 100 08/22/16 08:00 87 08/22/16 04:00 98.4 82 20 115/79 100 126/77 08/22/16 03:24 100 40 08/22/16 00:01 100 40 08/22/16 00:00 99.9 89 20 103/77 100 109/70 08/21/16 20:03 100 40 08/21/16 20:00 98.5 91 20 126/78 100 119/83 08/21/16 16:00 98.5 92 20 121/75 100 08/21/16 15:44 100 40 08/21/16 08/22/16 19:00 07:00 Intake Total 564 ml 498 ml Output Total 425 ml 1450 ml Balance 139 ml -952 ml IV Total 564 ml 498 ml Output Urine Total 400 ml 1300 ml Gastric Drainage Total 25 ml 150 ml Exam CONSTITUTIONAL/GENERAL: This is an thin male, in no apparent distress. TUBES/LINES/DRAINS: ET tube, ET tube, left femoral line, urinary catheter SKIN: No jaundice, rashes, or lesions. Ecchymoses on upper extremities. No wounds seen anteriorly. Skin temperature appropriate. Not diaphoretic. HEAD: Atraumatic. Normocephalic. EYES: Pupils equal and round and reactive. Extraocular motions intact. No scleral icterus. No injection or drainage. ENT: Hearing appears to be grossly normal. Nose without bleeding or purulent drainage. Throat without visible erythema, exudates, masses, or lesions. NECK: Trachea midline. Supple, nontender. No palpable thyroid enlargement or nodularity. CARDIOVASCULAR: Regular rate and rhythm without murmurs, gallops, or rubs. No JVD. Pulses palpable on left foot RESPIRATORY/CHEST: Symmetric, unlabored respirations. Clear to auscultation. Breath sounds equal bilaterally. No wheezes, rales, or rhonchi. GASTROINTESTINAL: Abdomen soft, non-tender, nondistended. No hepato-splenomegaly , or palpable masses. Bowel sounds present. GENITOURINARY: Without palpable bladder distension. Diehl catheter in place. MUSCULOSKELETAL: Right BKA, left foot without clubbing, cyanosis, or edema. No joint tenderness or effusion noted. No calf tenderness. No mottling or clubbing. LYMPHATICS: No palpable cervical or supraclavicular adenopathy. NEUROLOGICAL: Awake and alert. Follows commands a few commands. Unable to determine cognition. Moves all extremities. PSYCHIATRIC: No obvious anxiety/depression. no apparent hallucinations or other psychotic thought process. Diagnostic Tests Laboratory Laboratory Tests Test 08/20/16 08/20/16 08/20/16 08/20/16 06:13 06:29 08:05 08:11 White Blood Count 14.9 TH/MM3 (4.0-11.0) Red Blood Count 2.85 MIL/MM3 (4.50-5.90) Hemoglobin 7.5 GM/DL (13.0-17.0) Hematocrit 23.7 % (39.0-51.0) Mean Corpuscular Volume 83.2 FL (80.0-100.0) Mean Corpuscular Hemoglobin 26.5 PG (27.0-34.0) Mean Corpuscular Hemoglobin 31.9 % Concent (32.0-36.0) Red Cell Distribution Width 17.0 % (11.6-17.2) Platelet Count 354 TH/MM3 (150-450) Mean Platelet Volume 7.8 FL (7.0-11.0) Neutrophils (%) (Auto) 86.6 % (16.0-70.0) Lymphocytes (%) (Auto) 6.6 % (9.0-44.0) Monocytes (%) (Auto) 5.5 % (0.0-8.0) Eosinophils (%) (Auto) 0.7 % (0.0-4.0) Basophils (%) (Auto) 0.6 % (0.0-2.0) Neutrophils # (Auto) 12.9 TH/MM3 (1.8-7.7) Lymphocytes # (Auto) 1.0 TH/MM3 (1.0-4.8) Monocytes # (Auto) 0.8 TH/MM3 (0-0.9) Eosinophils # (Auto) 0.1 TH/MM3 (0-0.4) Basophils # (Auto) 0.1 TH/MM3 (0-0.2) CBC Comment DIFF FINAL Differential Comment Sodium Level 135 MEQ/L 139 MEQ/L (136-145) (136-145) Potassium Level 5.2 MEQ/L 5.5 MEQ/L (3.5-5.1) (3.5-5.1) Chloride Level 101 MEQ/L 100 MEQ/L (98-107) (98-107) Carbon Dioxide Level 24.2 MEQ/L 28.2 MEQ/L (21.0-32.0) (21.0-32.0) Anion Gap 10 MEQ/L (5-15) 11 MEQ/L (5-15) Blood Urea Nitrogen 33 MG/DL (7-18) 34 MG/DL (7-18) Creatinine 2.08 MG/DL 2.14 MG/DL (0.60-1.30) (0.60-1.30) Estimat Glomerular Filtration 33 ML/MIN (>89) 32 ML/MIN (>89) Rate Random Glucose 182 MG/DL 257 MG/DL (74-106) (74-106) Calcium Level 8.2 MG/DL 8.5 MG/DL (8.5-10.1) (8.5-10.1) Phosphorus Level 2.9 MG/DL (2.5-4.9) Magnesium Level 1.6 MG/DL (1.5-2.5) Total Bilirubin 0.3 MG/DL (0.2-1.0) Aspartate Amino Transf 55 U/L (15-37) (AST/SGOT) Alanine Aminotransferase 16 U/L (12-78) (ALT/SGPT) Alkaline Phosphatase 127 U/L (45-117) Total Creatine Kinase 341 U/L 232 U/L (39-308) (39-308) Creatine Kinase MB 12.7 NG/ML (0.5-3.6) Creatine Kinase MB % 3.7 % (0.0-4.0) Troponin I 8.58 NG/ML 8.11 NG/ML (0.02-0.05) (0.02-0.05) Total Protein 6.7 GM/DL (6.4-8.2) Albumin 2.1 GM/DL (3.4-5.0) Lactic Acid Level 2.5 mmol/L 9.5 mmol/L (0.4-2.0) (0.4-2.0) Blood Type O POSITIVE Antibody Screen NEGATIVE Crossmatch Leukocyte-Reduced Red Blood Cells Blood Bank Comment Blood Gas Puncture Site ART LINE Blood Gas Patient Temperature 98.6 Blood Gas HCO3 27 mmol/L (22-26) Blood Gas Base Excess 1.5 mmol/L (-2-2) Blood Gas Oxygen Saturation 96 % (90-100) Arterial Blood pH 7.35 (7.380-7.420) Arterial Blood Partial 49 mmHg (38-42) Pressure CO2 Arterial Blood Partial 111 mmHg Pressure O2 (61-120) Arterial Blood Oxygen Content 10.1 Vol % (12.0-20.0) Arterial Blood 1.4 % (0-4) Carboxyhemoglobin Arterial Blood Methemoglobin 0.6 % (0-2) Blood Gas Hemoglobin 7.4 G/DL (12.0-16.0) Oxygen Delivery Device AMBU Blood Gas Liter Flow 15 L/M Blood Gas Inspired Oxygen 100 % Test 08/20/16 08/20/16 08/20/16 08/20/16 09:55 11:10 13:20 16:30 Blood Gas Puncture Site DM Blood Gas Patient Temperature 98.6 Blood Gas HCO3 22 mmol/L (22-26) Blood Gas Base Excess -2.1 mmol/L (-2-2) Blood Gas Oxygen Saturation 97 % (90-100) Arterial Blood pH 7.39 (7.380-7.420) Arterial Blood Partial 37 mmHg (38-42) Pressure CO2 Arterial Blood Partial 135 mmHg Pressure O2 (61-120) Arterial Blood Oxygen Content 12.5 Vol % (12.0-20.0) Arterial Blood 1.5 % (0-4) Carboxyhemoglobin Arterial Blood Methemoglobin 0.6 % (0-2) Blood Gas Hemoglobin 9.0 G/DL (12.0-16.0) Oxygen Delivery Device VENT Blood Gas Ventilator Setting AC/20/550/5/100 Blood Gas Inspired Oxygen 100 % White Blood Count 26.6 TH/MM3 (4.0-11.0) Red Blood Count 3.21 MIL/MM3 (4.50-5.90) Hemoglobin 8.6 GM/DL 8.8 GM/DL (13.0-17.0) (13.0-17.0) Hematocrit 26.2 % 26.1 % (39.0-51.0) (39.0-51.0) Mean Corpuscular Volume 81.6 FL (80.0-100.0) Mean Corpuscular Hemoglobin 26.6 PG (27.0-34.0) Mean Corpuscular Hemoglobin 32.6 % Concent (32.0-36.0) Red Cell Distribution Width 17.1 % (11.6-17.2) Platelet Count 424 TH/MM3 (150-450) Mean Platelet Volume 7.4 FL (7.0-11.0) Differential Total Cells 100 Counted Neutrophils % (Manual) 84 % (16-70) Band Neutrophils % 8 % (0-6) Lymphocytes % 2 % (9-44) Monocytes % 6 % (0-8) Neutrophils # (Manual) 24.5 TH/MM3 (1.8-7.7) Differential Comment FINAL DIFF MANUAL Platelet Estimate HIGH (NORMAL) Platelet Morphology Comment NORMAL (NORMAL) Lactic Acid Level 2.9 mmol/L 2.3 mmol/L (0.4-2.0) (0.4-2.0) Troponin I 17.70 NG/ML (0.02-0.05) Test 08/21/16 08/21/16 08/21/16 08/22/16 09:20 15:18 18:45 02:00 White Blood Count 18.1 TH/MM3 16.6 TH/MM3 (4.0-11.0) (4.0-11.0) Red Blood Count 3.07 MIL/MM3 3.20 MIL/MM3 (4.50-5.90) (4.50-5.90) Hemoglobin 8.2 GM/DL 9.0 GM/DL 8.7 GM/DL (13.0-17.0) (13.0-17.0) (13.0-17.0) Hematocrit 24.8 % 26.1 % 25.8 % (39.0-51.0) (39.0-51.0) (39.0-51.0) Mean Corpuscular Volume 80.7 FL 80.7 FL (80.0-100.0) (80.0-100.0) Mean Corpuscular Hemoglobin 26.9 PG 27.1 PG (27.0-34.0) (27.0-34.0) Mean Corpuscular Hemoglobin 33.3 % 33.6 % Concent (32.0-36.0) (32.0-36.0) Red Cell Distribution Width 17.2 % 17.1 % (11.6-17.2) (11.6-17.2) Platelet Count 345 TH/MM3 311 TH/MM3 (150-450) (150-450) Mean Platelet Volume 7.0 FL 6.9 FL (7.0-11.0) (7.0-11.0) Neutrophils (%) (Auto) 88.2 % 88.1 % (16.0-70.0) (16.0-70.0) Lymphocytes (%) (Auto) 5.8 % 5.5 % (9.0-44.0) (9.0-44.0) Monocytes (%) (Auto) 5.6 % (0.0-8.0) 5.5 % (0.0-8.0) Eosinophils (%) (Auto) 0.2 % (0.0-4.0) 0.2 % (0.0-4.0) Basophils (%) (Auto) 0.2 % (0.0-2.0) 0.7 % (0.0-2.0) Neutrophils # (Auto) 16.0 TH/MM3 14.6 TH/MM3 (1.8-7.7) (1.8-7.7) Lymphocytes # (Auto) 1.1 TH/MM3 0.9 TH/MM3 (1.0-4.8) (1.0-4.8) Monocytes # (Auto) 1.0 TH/MM3 0.9 TH/MM3 (0-0.9) (0-0.9) Eosinophils # (Auto) 0.0 TH/MM3 0.0 TH/MM3 (0-0.4) (0-0.4) Basophils # (Auto) 0.0 TH/MM3 0.1 TH/MM3 (0-0.2) (0-0.2) CBC Comment DIFF FINAL DIFF FINAL Differential Comment Sodium Level 140 MEQ/L 140 MEQ/L (136-145) (136-145) Potassium Level 3.2 MEQ/L 3.0 MEQ/L (3.5-5.1) (3.5-5.1) Chloride Level 101 MEQ/L 104 MEQ/L (98-107) (98-107) Carbon Dioxide Level 28.4 MEQ/L 26.4 MEQ/L (21.0-32.0) (21.0-32.0) Anion Gap 11 MEQ/L (5-15) 10 MEQ/L (5-15) Blood Urea Nitrogen 39 MG/DL (7-18) 39 MG/DL (7-18) Creatinine 1.98 MG/DL 1.84 MG/DL (0.60-1.30) (0.60-1.30) Estimat Glomerular Filtration 35 ML/MIN (>89) 38 ML/MIN (>89) Rate Random Glucose 146 MG/DL 124 MG/DL (74-106) (74-106) Lactic Acid Level 1.3 mmol/L (0.4-2.0) Calcium Level 8.6 MG/DL 8.3 MG/DL (8.5-10.1) (8.5-10.1) Phosphorus Level 2.9 MG/DL 2.8 MG/DL (2.5-4.9) (2.5-4.9) Magnesium Level 1.5 MG/DL 1.4 MG/DL (1.5-2.5) (1.5-2.5) Total Bilirubin 0.8 MG/DL 0.9 MG/DL (0.2-1.0) (0.2-1.0) Aspartate Amino Transf 283 U/L (15-37) 158 U/L (15-37) (AST/SGOT) Alanine Aminotransferase 204 U/L (12-78) 183 U/L (12-78) (ALT/SGPT) Alkaline Phosphatase 135 U/L 116 U/L (45-117) (45-117) Troponin I GREATER THAN 40.00 NG/ML (0.02-0.05) Total Protein 6.3 GM/DL 6.3 GM/DL (6.4-8.2) (6.4-8.2) Albumin 2.0 GM/DL 2.0 GM/DL (3.4-5.0) (3.4-5.0) Blood Type O POSITIVE Crossmatch Leukocyte-Reduced Red Blood Cells Blood Bank Comment Result Diagram: 08/22/160 08/22/16 0200 Microbiology Microbiology Date/Time Procedure Status Source Growth 08/20/16 06:00 Aerobic Blood Culture - Preliminary Resulted Blood Peripheral NO GROWTH IN 2 DAYS 08/20/16 06:00 Anaerobic Blood Culture - Preliminary Resulted Blood Peripheral NO GROWTH IN 2 DAYS 08/20/16 06:13 Aerobic Blood Culture - Preliminary Resulted Blood Peripheral NO GROWTH IN 2 DAYS 08/20/16 06:13 Anaerobic Blood Culture - Preliminary Resulted Blood Peripheral NO GROWTH IN 2 DAYS Imaging Last [address] 08/21/16 0000 Signed Impressions: Service Date/Time: Sunday, August 21, 2016 03:47 - CONCLUSION: No acute disease. Daryl Prabhakar Jr., MD Chest X-Ray 08/20/16 0500 Signed Impressions: Service Date/Time: Saturday, August 20, 2016 05:06 - CONCLUSION: Low lung volumes with bibasilar consolidation. Consolidation could relate to atelectasis or infiltrates. Daryl Prabhakar Jr., MD Chest X-Ray 08/20/16 0000 Signed Impressions: Service Date/Time: Saturday, August 20, 2016 08:15 - CONCLUSION: 1. ET tube in good position. 2. Mild diffuse increased interstitial markings likely representing edema. Camacho Santana MD Patient/Family Conference Issues Discussed: * Palliative care role, purpose, approach * Additional medical, psychosocial, and spiritual history * Patients general health, functional status, and cognitive changes in the months leading up to the current hospitalization * Patient/family understanding of the current medical problems * Patient/family understanding of prognosis * Patients goals of care as best understood from advance directives and/or conversations and/or values * Current medical treatment options and benefits/burdens of those options * Likely scenarios comparing ongoing aggressive care with a transition to comfort measures only * Questions answered to the best of my ability * Palliative care contact information provided Assessment and Plan Disease Oriented Problem List: (1) History of lacunar cerebrovascular accident (2) HTN (hypertension) (3) Cardiac arrest (4) Rectal bleeding (5) Diabetes (6) Hypertension (7) Venous stasis ulcer of left lower extremity Symptom Scale: (1) Pain 0-10 Scale: Unable to quantify Comment: Wound to the buttocks (2) Dyspnea 0-10 Scale: Unable to quantify Comment: Manage the ventilator Pertinent Non-Medical Issues Psychosocial: 61-year-old male with one sister who was found in his home with self-care neglect. 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 Worked as a [employer]. Spiritual: Unknown Legal: At this point there is no known designated healthcare surrogate. DCF is involved and it appears he may be under guardianship. However, that information is not readily available at this time. He does have a sister , Tigist Amado who lives in [place] Ethical issues impacting care: Need to establish decision-maker for healthcare. This patient is unable to state his wishes Important Contacts Yisel Nation, case management for DC abdomen [phone] Sister, Tigist Amado, Prognosis Prognosis is guarded in light of his long-standing cardiac disease. Recent myocardial infarction with cardiac arrest and ACLS protocol x 4 attempts. Clinical status is complicated by diabetes as well as respiratory failure Code Status: Full Code Plan Decision Maker: Unclear at this time. Awaiting contact from [facility] regarding clarification of guardianship Code Status: Full code Family Discussion: Symptoms: Pain secondary to decubitus as well as long-term bedrest Dyspnea secondary to respiratory failure Palliative care phone number provided - will follow during hospital stay. Thank you for the opportunity to participate in the care of Mr. Amado. Cecy Ding Aug 22, 2016 15:04
--- NOTE | 2016-08-22 16:32 | HHI.CCPN ---
Subjective Remarks/Hospital Course 08/20: 61-year-old male admitted on 07/25/2016 by family medicine service after he was found at home by DCF not being able to take care of himself lying on the ground in his own feces. Previously patient was in the hospital from October 15, 2015 to July 18, 2016. During this hospitalization he was noted to be anemic secondary to anemia of chronic disease as well as possible myelosuppression for which she received blood transfusions and Procrit and was evaluated by hematology. He also has a PEG tube placed during this admission for maintaining his nutritional status. His neurologic status fluctuates and he goes from conversing to being encephalopathic. He has had multiple strokes and does have coronary artery disease with previous CABG and stenting. He is on Eliquis for anticoagulation and does have an ischemic cardiomyopathy as well as diabetes mellitus. He was recently started on Rocephin for a UTI. This morning patient was noted to have hypotension and some altered mental status. He was given fluid bolus and a chest x-ray was done earlier. Subsequently around 7 AM CODE BLUE cardiac arrest code was called for which I responded to the floor. At the time of my arrival patient was being ventilated with bag mask ventilation. He initially had agonal respirations. He was noted to be in asystole on the monitor subsequently so CPR/ACLS protocol was initiated. Patient had return of circulation following about 15 minutes of ACLS protocol and was noted to have a left bundle branch block which appeared old. He was started on an epinephrine drip for hypotension and transported to [facility]. Shortly following his arrival to the unit he underwent another episode of bradycardia and subsequently lost his pulse. CPR/ACLS protocol was initiated and he had return of spontaneous circulation following about 5 minutes of ACLS. He had a central line and a femoral arterial line placed emergently by myself. Stat labs were sent as well as ABG. Patient was continued on mechanical ventilation. He subsequently had 2 further episodes of cardiac arrest from which he was successfully resuscitated. History was obtained by reviewing records and discussion with family medicine team and floor as well as floor nursing staff. 08/21: Remains sedated, orally intubated on mechanical ventilation. Sedation held this morning to assess neurologic status. On dopamine 5 mics per KG per minute. Off other pressors at this time. Troponin greater than 40 this morning. On Protonix drip which was started yesterday for some rectal bleeding which is now stopped. EF 25% on 2-D echo done yesterday. Eliquis continues to be on hold. On aspirin. 08/22: Dopamine 2.5mcgs weaned off this morning. The patient appears hemodynamically stable, normotensive. Objective Vital Signs Date Time Temp Pulse Resp B/P Pulse Ox O2 Delivery O2 Flow Rate FiO2 08/22/16 16:00 82 08/22/16 16:00 99.0 20 124/79 100 08/22/16 12:04 30 Intake and Output 08/21/16 08/21/16 08/22/16 08:00 16:00 00:00 Intake Total 222 ml 564 ml 250 ml Output Total 650 ml 425 ml 750 ml Balance -428 ml 139 ml -500 ml Result Diagram: 08/22/16 0200 08/22/16 0200 Imaging Last 24 hours Impressions Chest X-Ray 08/20/16 0500 Signed Impressions: Service Date/Time: Saturday, August 20, 2016 05:06 - CONCLUSION: Low lung volumes with bibasilar consolidation. Consolidation could relate to atelectasis or infiltrates. Daryl Prabhakar Jr., MD Chest X-Ray 08/20/16 0000 Signed Impressions: Service Date/Time: Saturday, August 20, 2016 08:15 - CONCLUSION: 1. ET tube in good position. 2. Mild diffuse increased interstitial markings likely representing edema. Camacho Santana MD Last Impressions Chest X-Ray 08/20/16 0500 Signed Impressions: Service Date/Time: Saturday, August 20, 2016 05:06 - CONCLUSION: Low lung volumes with bibasilar consolidation. Consolidation could relate to atelectasis or infiltrates. Daryl Prabhakar Jr., MD Bone Osseous Survey 07/31/16 0000 Signed Impressions: Service Date/Time: Sunday, July 31, 2016 16:09 - CONCLUSION: Unremarkable bone survey. Incidental note made of median sternotomy. Multiple gallstones. Richard Gerber MD Head CT 07/25/16 1644 Signed Impressions: Service Date/Time: Monday, July 25, 2016 17:19 - CONCLUSION: 1. Lacunar infarcts bilaterally, worse on the left. 2. Negative for an acute process. Didier Clay MD FACR Renal Ultrasound 07/25/16 0000 Signed Impressions: Service Date/Time: Monday, July 25, 2016 20:55 - CONCLUSION: 1. Tiny nonobstructing calcified left renal calculi. 2. No hydronephrosis or solid renal mass. Efren Cleaning MD Objective Remarks HEENT/ Neuro: Encephalopathic off sedation, negligible eye opening with painful stimuli, moves all 4 extremities with painful stimuli ? Localizing/ withdraws, orally intubated, Pallor present, no icterus, tongue/ mucosa moist Neck: No JVD, trachea midline Chest/Pulm: on mech vent, good air entry bilaterally, bilateral coarse crackles , no wheezing. CVS: S1-S2 regular, no murmur, rubs or gallops GI/abdomen: soft, nontender, bowel sounds sluggish. PEG tube in place Extremities: warm bilaterally, trace bilateral edema upper and lower extremity Urinary Catheter: Yes Diehl insert reason: Measure Accurate Output A/P Assessment and Plan 61-year-old male with: Cardiac arrest status post CPR Acute respiratory failure on mechanical ventilation Pulmonary edema Shock(resolved) Encephalopathy suspected anoxic brain damage in the setting of poor baseline neurologic function: Elevated troponin with acute LA Ischemic cardiomyopathy History of CHF with EF 35% PAT/ CKD History of strokes Anemia of chronic disease Diabetes mellitus Myelosuppression Monoclonal gammopathy Sacral decubitus ulcer Status post PEG tube placement UTI Possible sepsis Plan: Neuro: Currently all sedation, monitor neuro status. Suspect anoxic brain injury secondary to multiple cardiac arrests. Has had multiple strokes before. Head CT negative for bleed (08/21) was on Eliquis for prior strokes however currently on hold due to rectal bleeding. Restart anticoagulation when okay with GI. Cardiovascular: Off epinephrine/Levophed. Dopamine discontinued 08/22. EKG with left bundle branch block. Troponin greater than 40 noted. Cardiology: Dr. Damián Arias not planning any intervention at this time due to poor neurologic status and elevated creatinine. Continue Aspirin. Eliquis last dose on 08/19 pm - continue holding due to rectal bleed 08/20. 2D echo with diffuse hypokinesis, LVEF 25%(08/20) Pulmonary: Continue mechanical ventilation, vent bundle, bronchodilators as needed. GI/liver: Will start PEG feeds with Glucerna @ 30cc/hr. Advance to goal. Renal/: Given Lasix 80 mg IV stat on 08/20 for pulmonary edema. Strict intake output, monitor and replete electrolites, follow BUN creatinine. Resume lasix to maintain even to slightly negative fluid balance Endocrine: SSI for glycemic control Heme: Transfused 1 unit PRBC on 08/20. Follow CBC. Being followed by hematology. Will transfuse 1 unit PRBCs today in view of acute LA to bring hemoglobin closer to 9 g percent ID: On Cefepime for UTI. Urine culture with Pseudomonas recently. Repeat cultures sent. Prophylaxis: PPI/SCDs. Holding anticoagulation with Eliquis due to rectal bleeding on 08/20. Clear with GI prior to starting subcutaneous heparin. Lines: Left femoral central venous catheter, left femoral arterial line placed on 08/20 Prognosis appears extremely poor. Condition critical. Discussed with family medicine service, dr. vega. Discussed with ICU nursing staff. This patient remains critically ill with one or more organ systems which are or may become a threat to life. I have spent in excess of 37 minutes discontinuously in the care and management of this patient. This time is exclusive of procedures, and includes, but is not limited to, evaluation of the patient, review of the medical record, discussions with family, consultants, nursing staff, or respiratory therapy, and documentation in the medical record. Physician Quin Hodges MD Aug 22, 2016 16:32
[2016-08-22] MEDS ORDERED: POTASSIUM CHLORIDE 20 MEQ PWD PACKET PO ONE (18:45)
[2016-08-22] MEDS ORDERED: POTASSIUM CHLOR 40 MEQ PREMIX 100 ML IV ONE (18:45)
[2016-08-22] MEDS: ATORVASTATIN 80 MG TAB PO SCH (21:38)
[2016-08-22] MEDS: MIRTAZAPINE 15 MG TAB PO SCH (21:39)
[2016-08-23] VITALS (18 sets, daily range): BP systolic 94–124; BP diastolic 54–79; PULSE 84–100; RESP 19–20; TEMP 97.9–99.7; O2SAT 98–100
[2016-08-23] MEDS: PANTOPRAZOLE SODIUM 40 MG VIAL IV PUSH SCH ×2 (00:34→12:58)
[2016-08-23] MEDS: CEFEPIME INJ 1,000 MG in SODIUM CHLORIDE 0.9% INJ 100 ML IV SCH ×2 (03:23→16:14)
[2016-08-23 05:28] LABS: AUTOMATED NEUTROPHIL # 10.8 TH/MM3 (1.8-7.7); BASOPHIL # 0.1 TH/MM3 (0-0.2); BASOPHIL % 0.6 % (0.0-2.0); EOSINOPHIL # 0.2 TH/MM3 (0-0.4); EOSINOPHIL % 1.2 % (0.0-4.0); HEMATOCRIT 24.1 % (39.0-51.0); HEMO FLAGS DIFF FINAL; LYMPH % 7.3 % (9.0-44.0); LYMPHOCYTE # 0.9 TH/MM3 (1.0-4.8); MEAN CELL VOLUME 81.9 FL (80.0-100.0); MEAN CORPUSCULAR HGB CONC 34.2 % (32.0-36.0); MONO % 5.9 % (0.0-8.0); PLATELET COUNT 273 TH/MM3 (150-450); RED BLOOD COUNT 2.95 MIL/MM3 (4.50-5.90); RED CELL DISTRIBUTION WIDTH 17.4 % (11.6-17.2); WHITE BLOOD COUNT 12.7 TH/MM3 (4.0-11.0)
[2016-08-23] MEDS ORDERED: SODIUM BICARBONATE 8.4% INJ 150 MEQ in WATER STERILE FOR INJ 850 ML IV SCH (05:30)
[2016-08-23 05:38] LABS: BICARBONATE 24.5 MEQ/L (21.0-32.0); MAGNESIUM 1.5 MG/DL (1.5-2.5); POTASSIUM 3.6 MEQ/L (3.5-5.1)
[2016-08-23] MEDS: INSULIN ASPART SUPPLEMENTAL SCALE SQ SCH ×4 (06:38→21:00)
[2016-08-23] MEDS: FERROUS SULFATE 325 MG (65 MG ELEMENTAL IRON) TAB PO SCH (08:00)
[2016-08-23] MEDS: SODIUM CHLORIDE 0.9% FLUSH 10 ML FLUSH IV FLUSH SCH ×2 (09:00→21:00)
[2016-08-23] MEDS ORDERED: EPOETIN ALFA 10,000 UNITS/ML VIAL SQ ONE (09:15)
[2016-08-23] MEDS: CALCIUM CARBONATE 500 MG CHEWABLE TAB CHEW SCH ×2 (09:25→21:22)
[2016-08-23] MEDS: ASPIRIN 81 MG CHEW TAB G-TUBE SCH (09:25)
[2016-08-23] MEDS: levETIRAcetam INJ 500 MG in SODIUM CHLORIDE 0.9% INJ 100 ML IV SCH ×2 (09:26→21:22)
[2016-08-23] MEDS: FUROSEMIDE 40 MG/4 ML VIAL IV PUSH SCH ×2 (09:27→18:03)
[2016-08-23] MEDS: CHOLECALCIFEROL (VIT D3) 1000 UNIT TAB PO SCH (09:27)
[2016-08-23] MEDS: COLLAGENASE OINT 30 GM TUBE TOPICAL SCH (09:29)
--- NOTE | 2016-08-23 11:04 | PD.ONC.PN ---
Subjective Subjective Remarks Tmax 99.7 overnight. Patient intubated but awake. No bleeding. Objective Data Date Time Temp Pulse Resp B/P Pulse Ox O2 Delivery O2 Flow Rate FiO2 08/23/16 09:15 100 30 08/23/16 06:00 86 105/75 110/66 08/23/16 06:00 86 08/23/16 04:01 100 30 08/23/16 04:00 99.7 86 20 103/73 100 108/64 08/23/16 04:00 86 08/23/16 02:00 85 08/23/16 01:07 100 30 08/23/16 00:00 85 08/23/16 00:00 97.9 84 20 104/74 100 114/68 08/22/16 22:00 85 08/22/16 20:11 100 30 08/22/16 20:00 86 97/75 112/76 08/22/16 20:00 97.9 86 20 97/75 100 112/76 08/22/16 20:00 86 08/22/16 18:00 82 08/22/16 16:54 100 30 08/22/16 16:00 82 08/22/16 16:00 99.0 82 20 124/79 100 08/22/16 14:00 81 08/22/16 12:04 100 30 08/22/16 12:00 98.8 81 20 110/73 100 08/22/16 12:00 81 08/23/16 08/23/16 08/23/16 07:00 15:00 23:00 Intake Total 455 ml Output Total 400 ml Balance 55 ml Result Diagram: 08/23/16 0510 08/23/16 0510 Laboratory Results Laboratory Tests Test 08/22/16 08/23/16 17:40 05:10 Potassium Level 3.2 MEQ/L 3.6 MEQ/L White Blood Count 12.7 TH/MM3 Red Blood Count 2.95 MIL/MM3 Hemoglobin 8.3 GM/DL Hematocrit 24.1 % Mean Corpuscular Volume 81.9 FL Mean Corpuscular Hemoglobin 28.0 PG Mean Corpuscular Hemoglobin 34.2 % Concent Red Cell Distribution Width 17.4 % Platelet Count 273 TH/MM3 Mean Platelet Volume 7.1 FL Neutrophils (%) (Auto) 85.0 % Lymphocytes (%) (Auto) 7.3 % Monocytes (%) (Auto) 5.9 % Eosinophils (%) (Auto) 1.2 % Basophils (%) (Auto) 0.6 % Neutrophils # (Auto) 10.8 TH/MM3 Lymphocytes # (Auto) 0.9 TH/MM3 Monocytes # (Auto) 0.7 TH/MM3 Eosinophils # (Auto) 0.2 TH/MM3 Basophils # (Auto) 0.1 TH/MM3 CBC Comment DIFF FINAL Differential Comment Sodium Level 141 MEQ/L Chloride Level 107 MEQ/L Carbon Dioxide Level 24.5 MEQ/L Anion Gap 10 MEQ/L Blood Urea Nitrogen 43 MG/DL Creatinine 2.11 MG/DL Estimat Glomerular Filtration 32 ML/MIN Rate Random Glucose 119 MG/DL Calcium Level 7.6 MG/DL Magnesium Level 1.5 MG/DL Administered Medications Medications (Trade) Dose Ordered Sig/Estuardo Route PRN Reason Start Time Stop Time Status Last Admin Dose Admin Apixaban (Eliquis) 2.5 mg BID PO 07/25/16 21:00 Hold 08/19/16 21:20 Atorvastatin Calcium (Lipitor) 80 mg HS PO 07/25/16 21:00 08/22/16 21:38 Carvedilol (Coreg) 25 mg BID PO 07/25/16 21:00 Hold 08/19/16 21:20 Ferrous Sulfate (Ferrous Sulfate) 325 mg DAILY@08 PO 07/26/16 08:00 08/19/16 09:45 Isosorbide Mononitrate (Imdur) 60 mg HS PO 07/25/16 21:00 Hold 08/19/16 21:19 Sodium Chloride (NS Flush) 2 ml BID IV FLUSH 07/25/16 21:00 08/23/16 09:00 Amlodipine Besylate (Norvasc) 10 mg DAILY PO 07/28/16 09:00 Hold 08/18/16 09:59 Cholecalciferol (Vitamin D3) 2,000 units DAILY PO 07/28/16 09:00 08/23/16 09:27 Mirtazapine (Remeron) 15 mg HS PO 08/03/16 21:00 08/22/16 21:39 Collagenase (Santyl Oint) 1 applic DAILY TOPICAL 08/04/16 14:30 08/23/16 09:29 Water (Free Water) 200 ml Q4HR G-TUBE 08/10/16 20:00 Hold 08/20/16 15:05 Calcium Carbonate 500 mg 500 mg Q12HR CHEW 08/12/16 09:00 08/23/16 09:25 Cefepime HCl 1000 mg/Sodium Chloride 100 ml @ 200 mls/hr Q12H IV 08/19/16 15:00 08/23/16 03:23 Dopamine HCl/ Dextrose 500 ml @ 10.013 mls/ hr TITRATE IV 08/20/16 09:15 08/21/16 17:13 Levetriacetam/ Sodium Chloride (Keppra Inj/NS Inj) 105 ml @ 420 mls/hr Q12HR IV 08/20/16 21:00 08/23/16 09:26 Aspirin (Aspirin Chew) 81 mg DAILY G-TUBE 08/21/16 09:00 08/23/16 09:25 Furosemide (Lasix Inj) 40 mg BID@,18 IV PUSH 08/21/16 18:00 08/23/16 09:27 Pantoprazole Sodium (Protonix Inj) 40 mg Q12H IV PUSH 08/22/16 12:15 08/23/16 00:34 Objective Remarks GENERAL: Middle aged male, lying supine in bed, awake but intubated SKIN: Warm and dry. HEAD: Normocephalic. EYES: No injection or drainage. NECK: Supple, trachea midline. CARDIOVASCULAR: Regular rate and rhythm RESPIRATORY: anterior albarran with scattered rhonchi. on mechanical ventilation. GASTROINTESTINAL: Abdomen soft, non-tender, nondistended. EXTREMITIES: No cyanosis NEUROLOGICAL: awake. intubated. tracks with eyes. follows commands. 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 Assessment 61 y/o male who was brought in by [facility] after DCF found him at home unable to care for himself. Plan 1. monitor CBC intermittently 2. will give Procrit 30K units today Attending Statement The exam, history, and the medical decision-making described in the above note were completed with the assistance of the mid-level provider. I reviewed and agree with the findings presented. I attest that I had a [id number] encounter with the patient on the same day, and personally performed and documented my assessment and findings in the medical record. Events noted. No gross bleeding noted. Hgb trended lower. Will give epogen 30K today. Problem Qualifiers (1) Anemia: Qualified Code: D50.8 - Other iron deficiency anemia Chrissy Cannon Aug 23, 2016 11:04 Andrzej De Los Santos MD Aug 23, 2016 17:56
--- NOTE | 2016-08-23 11:35 | HHI.HCPN ---
Spoke with patient's DCF spring encaser. She confirms DCF is making medical decisions for Mr. Amado. Court papers obtained and faxed to HIM to be scanned into EMR. Tentative meeting scheduled for , 08-25-16 around 1030/11am with Yisel Nation/DCF spring encaser to discuss goals of care. Palliative care will continue to follow throughout hospitalization. Kimberly Prabhakar, MACHINE WHITENER Aug 23, 2016 11:35
--- NOTE | 2016-08-23 11:50 | HHI.FPPN ---
Subjective Remarks Pt seen and examined this AM. No acute events overnight. Tmax 99.7 this AM. Currently intubated and off of pressors maintaining MAP ~80s. Patient awake and alert and following some commands; able to track and blink his eyes and hold them shut when asked. 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 Cannot move toes. Objective Vitals Vital Signs Date Time Temp Pulse Resp B/P Pulse Ox O2 Delivery O2 Flow Rate FiO2 08/23/16 09:15 100 30 08/23/16 06:00 86 105/75 110/66 08/23/16 06:00 86 08/23/16 04:01 100 30 08/23/16 04:00 99.7 86 20 103/73 100 108/64 08/23/16 04:00 86 08/23/16 02:00 85 08/23/16 01:07 100 30 08/23/16 00:00 85 08/23/16 00:00 97.9 84 20 104/74 100 114/68 08/22/16 22:00 85 08/22/16 20:11 100 30 08/22/16 20:00 86 97/75 112/76 08/22/16 20:00 97.9 86 20 97/75 100 112/76 08/22/16 20:00 86 08/22/16 18:00 82 08/22/16 16:54 100 30 08/22/16 16:00 82 08/22/16 16:00 99.0 82 20 124/79 100 08/22/16 14:00 81 08/22/16 12:04 100 30 08/22/16 12:00 98.8 81 20 110/73 100 08/22/16 12:00 81 I/O 08/22/16 08/22/16 08/22/16 08/23/16 08/23/16 08/23/16 07:00 15:00 23:00 07:00 15:00 23:00 Intake Total 248 ml 207 ml 576 ml 455 ml Output Total 700 ml 450 ml 351 ml 400 ml Balance -452 ml -243 ml 225 ml 55 ml IV Total 248 ml 207 ml 300 ml 108 ml Tube Feeding 76 ml 347 ml Other 200 ml Output Urine Total 650 ml 400 ml 350 ml 400 ml Stool Total 1 ml 0 ml Gastric Drainage Total 50 ml 50 ml Tube Feeding Residual Discard 0 ml Result Diagram: 08/23/16 0510 08/23/16 0510 Objective Remarks GENERAL: male laying in bed orally intubated. SKIN: Warm and dry. Appears pale. HEENT: Tracks eyes. PERRLA. HEART: RRR no m/r/g. LUNGS: Mechanically ventilated. Good air movement. Anterior lung sounds coarse. ABDOMEN: Hypoactive bowel sounds. Soft, NT, ND. PEG tube in place. EXTREMITIES: R BKA. LLE without edema. A/P Assessment and Plan 61 yo M, hx of prolonged hospital stay from September 2015 - July 18, 2016, having returned to the hospital on July 22 for fall. Admitted for AMS, rhabdomyolysis , dehydration, hypernatremia and anemia. PEG tube has been placed due to decreased PO intake and dehydration. Patient is currently in critical condition due to ischemic cardiac event. Cardiology has been consulted, no interventions anticipated until pt shows clinical improvement. Discharge Planning Unclear discharge timetable as patient in critical condition and DCF making medical decisions for the patient. Problem List: (1) Myocardial infarction acute Status: Acute Plan: Cardiac arrest s/p CPR with ROSC. Troponin as high as >40 and EKG with LBBB. Cardiology consulted and patient in too critical condition for intervention at this time. - 2D echo with diffuse hypokinesis and LVEF 25% - Continue baby ASA - Eliquis held secondary to rectal bleeding - Off of pressors (2) Respiratory failure Status: Acute Plan: Patient intubated, awake, and alert. Vent management per critical care. - CXR 08/20 showed low lung volumes with bibasilar consolidation (3) Rectal bleeding Status: Acute Plan: Pt with anemia and acute rectal bleeding was noted. -GI consulted, appreciate recommendations * Patient is currently not stable for EGD/colonoscopy * Protonix 40 mg IV BID * Monitor for active GI bleed and H&H * Transfuse as needed (4) UTI (urinary tract infection) Status: Acute Plan: Repeat UA on 08/18 significant for hazy appearance, 30 protein, small occult blood, positive nitrites, large leukocyte esterase, many white blood cell clumps, moderate bacteria. Urine culture: Pseudomonas aeruginosa, sensitive to cefepime Continue Cefepime 1gm BID (08/19-) x anticipate duration of 10 days (5) Decubitus ulcer, stage 3 Status: Acute Plan: Patient with large decubitus ulcer over lower back; appears to be healing with good granulation tissue -Wound care consulted, appreciate recommendations * Collagenase ointment to be applied daily * Wound dressing changes daily per RN (6) Anemia Status: Chronic Plan: Likely secondary to chronic disease with GI bleeding. Hematolgoy consulted and patient on Procrit -Continue iron supplementation -Continue Protonix -FOBT positive. GI following and patient had EGD/colonoscopy performed 08/05 showing internal and external hemorrhoids. However, limited due to poor bowel prep and currently not a candidate for repeat - Monitor H&H (7) Dxnrz-uk-ginasox kidney injury Status: Acute Plan: Currently stable Nephrology consulted -Avoid nephrotoxic meds -Closely monitor I&O -Renal US: unremarkable (8) Altered mental status Status: Chronic Plan: Pt likely with recent anoxic brain injury due to decreased brain perfusion secondary to cardiac arrest. He has had multiple ischemic strokes in the past including a lacunar infarct on 10/20/15. At patient's baseline he is able to communicate with yes or no answers. He has also been able to express himself using complete sentences. -CT head 08/21 with no acute disease -EEG showing changes with diffuse encephalopathy (9) Chronic systolic (congestive) heart failure Status: Chronic Plan: Patient with hx of CHF, EF 35% from September 2015. -Echo from 08/20 significant for EF of 20-25% with diffuse hypokinesis. -Lasix 40 mg IV twice a day (10) Coronary artery disease Status: Chronic Plan: Continue statin. Antihypertensives held in light of hypotensive shock. Eliquis held secondary to rectal bleeding. (11) HTN (hypertension) Status: Chronic Plan: Holding home meds in light of hypotension requiring pressors. (12) Low vitamin D level Status: Acute Plan: Vitamin D low at 11.6. -Cholecalciferol 2000 units po Daily -Calcium carbonate 500 mg BID (13) Diabetes mellitus Status: Chronic Plan: A1C 6.9 on 11/25/15, not on oral medications as an outpatient -Continue to monitor -Low dose SSI (14) Nutrition, metabolism, and development symptoms Status: Acute Plan: - Fluids: Free water via PEG - Electrolytes: Monitor and replete as needed - Nutrition: Glucerna tube feeds with goal 1.5 at 60 ml/hr - DVT prophylaxis: chemical anticoagulation C/I 2/2 rectal bleeding - GI prophylaxis: on PPI dw Dr. Austin Problem Qualifiers (1) Anemia: Qualified Code: D50.8 - Other iron deficiency anemia (2) Altered mental status: Qualified Code: R41.82 - Altered mental status, unspecified altered mental status type (3) Coronary artery disease: Qualified Code: I25.10 - Coronary artery disease involving [place] heart without angina pectoris, unspecified vessel or lesion type (4) HTN (hypertension): Qualified Code: I10 - Essential hypertension (5) Diabetes mellitus: Qualified Code: E11.51 - Type 2 diabetes mellitus with diabetic peripheral angiopathy without gangrene, without long-term current use of insulin Loida Dodson MD Aug 23, 2016 11:50 (10) Chronic systolic (congestive) heart failure Status: Chronic Plan: Patient with hx of CHF, EF 35% from September 2015. -Echo from 08/20 significant for EF of 20-25%. Diffuse hypokinesis. Mild to moderate regurgitation of the mitral valve. Mildly dilated left atrium. Small left pleural effusion. Lasix 40 mg IV twice a day (11) Coronary artery disease Status: Chronic Plan: -Coreg 25mg po bid HELD -Eliquis 2.5mg BID HELD -Atorvastatin 80 mg po hs -Isosorbide Mononitrate 60 mg po hs HELD (12) HTN (hypertension) Status: Chronic Plan: Amlodipine 10 mg po daily, Held (13) Low vitamin D level Status: Acute Plan: Vitamin D low at 11.6. -Cholecalciferol 2000 units po Daily -Calcium carbonate 500 mg BID -Ergocalciferol 50,000 units x1 on 08/12 (14) Diabetes mellitus Status: Chronic Plan: A1C 6.9 on 11/25/15, not on oral medications as an out patient -Continue to monitor -Low dose SSI (15) Nutrition, metabolism, and development symptoms Status: Acute Plan: Fluids/Diet: Pt currently NPO due to acute change in cardiopulmonary status Electrolytes: Monitor and replace as needed DVT PPX: Eliquis, hold due to anemia and GI bleed GI PPX: Protonix drip Problem Qualifiers (1) Anemia: Qualified Code: D50.8 - Other iron deficiency anemia (2) Altered mental status: Qualified Code: R41.82 - Altered mental status, unspecified altered mental status type (3) Coronary artery disease: Qualified Code: I25.10 - Coronary artery disease involving [place] heart without angina pectoris, unspecified vessel or lesion type (4) HTN (hypertension): Qualified Code: I10 - Essential hypertension (5) Diabetes mellitus: Qualified Code: E11.51 - Type 2 diabetes mellitus with diabetic peripheral angiopathy without gangrene, without long-term current use of insulin Loida Dodson MD Aug 23, 2016 11:50
--- NOTE | 2016-08-23 14:53 | HHI.CCPN ---
Subjective Remarks/Hospital Course 08/20: 61-year-old male admitted on 07/25/2016 by family medicine service after he was found at home by DCF not being able to take care of himself lying on the ground in his own feces. Previously patient was in the hospital from October 15, 2015 to July 18, 2016. During this hospitalization he was noted to be anemic secondary to anemia of chronic disease as well as possible myelosuppression for which she received blood transfusions and Procrit and was evaluated by hematology. He also has a PEG tube placed during this admission for maintaining his nutritional status. His neurologic status fluctuates and he goes from conversing to being encephalopathic. He has had multiple strokes and does have coronary artery disease with previous CABG and stenting. He is on Eliquis for anticoagulation and does have an ischemic cardiomyopathy as well as diabetes mellitus. He was recently started on Rocephin for a UTI. This morning patient was noted to have hypotension and some altered mental status. He was given fluid bolus and a chest x-ray was done earlier. Subsequently around 7 AM CODE BLUE cardiac arrest code was called for which I responded to the floor. At the time of my arrival patient was being ventilated with bag mask ventilation. He initially had agonal respirations. He was noted to be in asystole on the monitor subsequently so CPR/ACLS protocol was initiated. Patient had return of circulation following about 15 minutes of ACLS protocol and was noted to have a left bundle branch block which appeared old. He was started on an epinephrine drip for hypotension and transported to [facility]. Shortly following his arrival to the unit he underwent another episode of bradycardia and subsequently lost his pulse. CPR/ACLS protocol was initiated and he had return of spontaneous circulation following about 5 minutes of ACLS. He had a central line and a femoral arterial line placed emergently by myself. Stat labs were sent as well as ABG. Patient was continued on mechanical ventilation. He subsequently had 2 further episodes of cardiac arrest from which he was successfully resuscitated. History was obtained by reviewing records and discussion with family medicine team and floor as well as floor nursing staff. 08/21: Remains sedated, orally intubated on mechanical ventilation. Sedation held this morning to assess neurologic status. On dopamine 5 mics per KG per minute. Off other pressors at this time. Troponin greater than 40 this morning. On Protonix drip which was started yesterday for some rectal bleeding which is now stopped. EF 25% on 2-D echo done yesterday. Eliquis continues to be on hold. On aspirin. 08/22: Dopamine 2.5mcgs weaned off this morning. The patient appears hemodynamically stable, normotensive. 08/23: Tmax 99.7. Dopamine remained off overnight, patient remains normotensive. Overnight the patient began to follow commands moving his extremities 4. CPAP trials to begin today. Physical therapy order for functional maintenance. Leukocytosis trending down. Will discontinue femoral central line and arterial line today. Objective Vital Signs Date Time Temp Pulse Resp B/P Pulse Ox O2 Delivery O2 Flow Rate FiO2 08/23/16 12:54 98 30 08/23/16 06:00 86 105/75 110/66 08/23/16 04:00 99.7 20 Intake and Output 08/22/16 08/22/16 08/23/16 08:00 16:00 00:00 Intake Total 248 ml 207 ml 576 ml Output Total 700 ml 450 ml 351 ml Balance -452 ml -243 ml 225 ml Result Diagram: 08/23/16 0510 08/23/16 0510 Imaging Last 24 hours Impressions Chest X-Ray 08/20/16 0500 Signed Impressions: Service Date/Time: Saturday, August 20, 2016 05:06 - CONCLUSION: Low lung volumes with bibasilar consolidation. Consolidation could relate to atelectasis or infiltrates. Daryl Prabhakar Jr., MD Chest X-Ray 08/20/16 0000 Signed Impressions: Service Date/Time: Saturday, August 20, 2016 08:15 - CONCLUSION: 1. ET tube in good position. 2. Mild diffuse increased interstitial markings likely representing edema. Camacho Santana MD Last Impressions Chest X-Ray 08/20/16 0500 Signed Impressions: Service Date/Time: Saturday, August 20, 2016 05:06 - CONCLUSION: Low lung volumes with bibasilar consolidation. Consolidation could relate to atelectasis or infiltrates. Daryl Prabhakar Jr., MD Bone Osseous Survey 07/31/16 0000 Signed Impressions: Service Date/Time: Sunday, July 31, 2016 16:09 - CONCLUSION: Unremarkable bone survey. Incidental note made of median sternotomy. Multiple gallstones. Richard Gerber MD Head CT 07/25/16 1644 Signed Impressions: Service Date/Time: Monday, July 25, 2016 17:19 - CONCLUSION: 1. Lacunar infarcts bilaterally, worse on the left. 2. Negative for an acute process. Didier Clay MD FACR Renal Ultrasound 07/25/16 0000 Signed Impressions: Service Date/Time: Monday, July 25, 2016 20:55 - CONCLUSION: 1. Tiny nonobstructing calcified left renal calculi. 2. No hydronephrosis or solid renal mass. Efren Cleaning MD Objective Remarks HEENT/ Neuro: Encephalopathic off sedation, negligible eye opening with painful stimuli, moves all 4 extremities with painful stimuli ? Localizing/ withdraws, orally intubated, Pallor present, no icterus, tongue/ mucosa moist Neck: No JVD, trachea midline Chest/Pulm: on mech vent, good air entry bilaterally, bilateral coarse crackles , no wheezing. CVS: S1-S2 regular, no murmur, rubs or gallops GI/abdomen: soft, nontender, bowel sounds sluggish. PEG tube in place Extremities: warm bilaterally, trace bilateral edema upper and lower extremity Urinary Catheter: Yes Diehl insert reason: Measure Accurate Output Vascular Central Line Catheter: Yes Assessment to: Remove Date of Removal: Aug 23, 2016 Line: Central Venous Catheter Side: Left Location: Femoral A/P Assessment and Plan 61-year-old male with: Cardiac arrest status post CPR Acute respiratory failure on mechanical ventilation Pulmonary edema Shock(resolved) Encephalopathy suspected anoxic brain damage in the setting of poor baseline neurologic function: Elevated troponin with acute MD Ischemic cardiomyopathy History of CHF with EF 35% PAT/ CKD History of strokes Anemia of chronic disease Diabetes mellitus Myelosuppression Monoclonal gammopathy Sacral decubitus ulcer Status post PEG tube placement UTI Possible sepsis Plan: Neuro: Currently all sedation, monitor neuro status. Some improvement overnight, patient tracking following some commands moving extremities 4. Possible anoxic brain injury secondary to multiple cardiac arrests History of multiple strokes . Head CT negative for bleed (08/21) was on Eliquis for prior strokes however currently on hold due to rectal bleeding. Restart anticoagulation when okay with GI. Cardiovascular: Off epinephrine/Levophed. Dopamine discontinued 08/22. EKG with left bundle branch block. Troponin greater than 40 noted. Cardiology: Dr. Damián Arias not planning any intervention at this time due to poor neurologic status and elevated creatinine. Continue Aspirin. Eliquis last dose on 08/19 pm - continue holding due to rectal bleed 08/20. 2D echo with diffuse hypokinesis, LVEF 25%() Pulmonary: Continue mechanical ventilation, vent bundle, bronchodilators as needed. Begin CPAP trials today GI/liver: Continue PEG feeds with Glucerna @ 30cc/hr. Advance to goal. Zofran for nausea Renal/: Given Lasix 80 mg IV stat on 08/20 for pulmonary edema. Strict intake output Monitor and replete electrolytes follow BUN creatinine. Willl continue lasix to maintain even to slightly negative fluid balance Endocrine: SSI for glycemic control Heme: Transfused 1 unit PRBC on 08/20. Follow CBC. Being followed by hematology. Transfused 1 unit PRBCs 08/20 in view of acute MD to bring hemoglobin closer to 9 g percent ID: On Cefepime for UTI. Urine culture with Pseudomonas recently. Repeat cultures sent. Prophylaxis: PPI/SCDs. Holding anticoagulation with Eliquis due to rectal bleeding on 08/20. Clear with GI prior to starting subcutaneous heparin. Lines: Left femoral central venous catheter, left femoral arterial line placed on 08/20 Prognosis appears extremely poor. Condition critical. Dispo: DCF assigned as decision maker for patient, palliative care team meeting scheduled for 08/25/16 with DCF lining caser for discussion of goals of care. Discussed with family medicine service, Discussed with ICU nursing staff. This patient remains critically ill with one or more organ systems which are or may become a threat to life. I have spent in excess of 32 minutes discontinuously in the care and management of this patient. This time is exclusive of procedures, and includes, but is not limited to, evaluation of the patient, review of the medical record, discussions with family, consultants, nursing staff, or respiratory therapy, and documentation in the medical record. Physician Quin Hodges MD Aug 23, 2016 14:53
[2016-08-23] MEDS: FREE WATER G-TUBE SCH ×2 (16:00→20:00)
[2016-08-23] MEDS: MIRTAZAPINE 15 MG TAB PO SCH (21:23)
[2016-08-23] MEDS: ATORVASTATIN 80 MG TAB PO SCH (21:23)
[2016-08-24] VITALS (18 sets, daily range): BP systolic 110–128; BP diastolic 52–85; PULSE 83–98; RESP 16–21; TEMP 97.6–99.6; O2SAT 100
[2016-08-24] MEDS: PANTOPRAZOLE SODIUM 40 MG VIAL IV PUSH SCH ×2 (00:39→12:52)
[2016-08-24] MEDS: FREE WATER G-TUBE SCH ×6 (04:00→21:18)
[2016-08-24] MEDS: INSULIN ASPART SUPPLEMENTAL SCALE SQ SCH ×4 (06:45→21:00)
--- NOTE | 2016-08-24 09:22 | HHI.FPPN ---
Subjective Remarks Case discussed with nurse at bedside. Case discussed with Dr. Douglas. Patient resumed pressor support. Currently undergoing CPAP trial. Somewhat responsive to commands however patient has a flat affect and it is difficult to ascertain patient's understanding of commands. (Balbir Nguyễn MD R2) Objective Vitals Vital Signs Date Time Temp Pulse Resp B/P Pulse Ox O2 Delivery O2 Flow Rate FiO2 08/24/16 08:18 100 30 08/24/16 06:00 94 112/84 128/79 08/24/16 06:00 94 08/24/16 04:05 100 30 08/24/16 04:00 99.6 94 21 126/78 100 08/24/16 04:00 94 08/24/16 02:00 94 08/24/16 01:07 100 30 08/24/16 00:00 99.6 98 20 123/71 100 08/24/16 00:00 98 08/23/16 22:00 97 08/23/16 20:00 100 08/23/16 20:00 98.8 100 20 124/73 100 08/23/16 20:00 100 112/79 123/73 08/23/16 19:48 99 30 08/23/16 18:00 100 08/23/16 18:00 98 08/23/16 17:57 99 30 08/23/16 16:00 99.0 94 19 102/54 100 08/23/16 16:00 94 08/23/16 16:00 86 105/75 94/66 08/23/16 14:00 92 08/23/16 12:54 98 30 08/23/16 12:45 30 08/23/16 12:00 99.7 84 20 112/66 100 08/23/16 12:00 84 08/23/16 10:00 84 I/O 08/23/16 08/23/16 08/23/16 08/24/16 08/24/16 08/24/16 07:00 15:00 23:00 07:00 15:00 23:00 Intake Total 455 ml 718 ml 465 ml 600 ml Output Total 400 ml 250 ml 650 ml 450 ml Balance 55 ml 468 ml -185 ml 150 ml IV Total 108 ml 164 ml 105 ml Tube Feeding 347 ml 554 ml Other 360 ml 600 ml Output Urine Total 400 ml 250 ml 650 ml 450 ml Stool Total 0 ml Tube Feeding Residual Discard 0 ml 0 ml 0 ml # Bowel Movements 0 0 (Balbir Nguyễn MD R2) Result Diagram: 08/23/16 0510 08/24/16 0405 Objective Remarks GENERAL: male laying in bed orally intubated. SKIN: Warm and dry. Appears pale. HEENT: Tracks eyes. PERRLA. HEART: RRR no m/r/g. LUNGS: Mechanically ventilated. Good air movement. Anterior lung sounds coarse. ABDOMEN: Hypoactive bowel sounds. Soft, NT, ND. PEG tube in place. EXTREMITIES: R BKA. LLE without edema. (Balbir Nguyễn MD R2) Date of Removal: Aug 23, 2016 Line: Central Venous Catheter Side: Left Location: Femoral (Balbir Nguyễn MD R2) A/P Assessment and Plan 61 yo M, hx of prolonged hospital stay from September 2015 - July 18, 2016, having returned to the hospital on July 22 for fall. Admitted for AMS, rhabdomyolysis , dehydration, hypernatremia and anemia. PEG tube has been placed due to decreased PO intake and dehydration. Patient is currently in critical condition due to ischemic cardiac event. Cardiology has been consulted, no interventions anticipated until pt shows clinical improvement. Discharge Planning Unclear discharge timetable as patient in critical condition and DCF making medical decisions for the patient. Palliative to have meeting with DCF tentatively on 08/25 to review goals of care. (Balbir Nguyễn MD R2) Attending Attestation Patient examined and case discussed with resident physicians I have read the above note and agree with the assessment/plan is discussed with me I was involved in all medical decision making for this patient Abiodun Austin M.D. (Abiodun Austin MD) Problem List: (1) Myocardial infarction acute Status: Acute Plan: Cardiac arrest s/p CPR with ROSC. Troponin as high as >40 and EKG with LBBB. Cardiology consulted and patient in too critical condition for intervention at this time. - 2D echo with diffuse hypokinesis and LVEF 25% - Continue baby ASA - Eliquis held secondary to rectal bleeding -Pressor support per critical care (2) Respiratory failure Status: Acute Plan: Patient intubated, awake, and alert. Vent management per critical care. - CXR 08/20 showed low lung volumes with bibasilar consolidation (3) Rectal bleeding Status: Acute Plan: Pt with anemia and acute rectal bleeding was noted. -GI consulted, appreciate recommendations * Patient is currently not stable for EGD/colonoscopy * Protonix 40 mg IV BID * Monitor for active GI bleed and H&H * Transfuse as needed (4) UTI (urinary tract infection) Status: Acute Plan: Repeat UA on 08/18 significant for hazy appearance, 30 protein, small occult blood, positive nitrites, large leukocyte esterase, many white blood cell clumps, moderate bacteria. Urine culture: Pseudomonas aeruginosa, sensitive to cefepime Continue Cefepime 1gm BID (08/19-) x anticipate duration of 10 days (5) Decubitus ulcer, stage 3 Status: Acute Plan: Patient with large decubitus ulcer over lower back; appears to be healing with good granulation tissue -Wound care consulted, appreciate recommendations * Collagenase ointment to be applied daily * Wound dressing changes daily per RN (6) Anemia Status: Chronic Plan: Likely secondary to chronic disease with GI bleeding. Hematolgoy consulted and patient on Procrit -Continue iron supplementation -Continue Protonix -FOBT positive. GI following and patient had EGD/colonoscopy performed 08/05 showing internal and external hemorrhoids. However, limited due to poor bowel prep and currently not a candidate for repeat - Monitor H&H (7) [id number] kidney injury Status: Acute Plan: Currently stable Nephrology consulted -Avoid nephrotoxic meds -Closely monitor I&O -Renal US: unremarkable (8) Altered mental status Status: Chronic Plan: Pt likely with recent anoxic brain injury due to decreased brain perfusion secondary to cardiac arrest. He has had multiple ischemic strokes in the past including a lacunar infarct on 10/20/15. At patient's baseline he is able to communicate with yes or no answers. He has also been able to express himself using complete sentences. -CT head 08/21 with no acute disease -EEG showing changes with diffuse encephalopathy (9) Chronic systolic (congestive) heart failure Status: Chronic Plan: Patient with hx of CHF, EF 35% from September 2015. -Echo from 08/20 significant for EF of 20-25% with diffuse hypokinesis. -Lasix 40 mg IV twice a day (10) Coronary artery disease Status: Chronic Plan: Continue statin. Antihypertensives held in light of hypotensive shock. Eliquis held secondary to rectal bleeding. (11) HTN (hypertension) Status: Chronic Plan: Holding home meds in light of hypotension requiring pressors. (12) Low vitamin D level Status: Acute Plan: Vitamin D low at 11.6. -Cholecalciferol 2000 units po Daily -Calcium carbonate 500 mg BID (13) Diabetes mellitus Status: Chronic Plan: A1C 6.9 on 11/25/15, not on oral medications as an outpatient -Continue to monitor -Low dose SSI (14) Nutrition, metabolism, and development symptoms Status: Acute Plan: - Fluids: Free water via PEG - Electrolytes: Monitor and replete as needed - Nutrition: Glucerna tube feeds with goal 1.5 at 60 ml/hr - DVT prophylaxis: chemical anticoagulation C/I 2/2 rectal bleeding - GI prophylaxis: on PPI dw Dr. Austin (Balbir Nguyễn MD R2) Problem Qualifiers (1) Anemia: Qualified Code: D50.8 - Other iron deficiency anemia (2) Altered mental status: Qualified Code: R41.82 - Altered mental status, unspecified altered mental status type (3) Coronary artery disease: Qualified Code: I25.10 - Coronary artery disease involving ely [place] heart without angina pectoris, unspecified vessel or lesion type (4) HTN (hypertension): Qualified Code: I10 - Essential hypertension (5) Diabetes mellitus: Qualified Code: E11.51 - Type 2 diabetes mellitus with diabetic peripheral angiopathy without gangrene, without long-term current use of insulin Balbir Nguyễn MD R2 Aug 24, 2016 09:22 Abiodun Austin MD Aug 24, 2016 16:06
[2016-08-24] MEDS: levETIRAcetam INJ 500 MG in SODIUM CHLORIDE 0.9% INJ 100 ML IV SCH ×2 (10:57→21:17)
[2016-08-24] MEDS: ASPIRIN 81 MG CHEW TAB G-TUBE SCH (10:57)
[2016-08-24] MEDS: CALCIUM CARBONATE 500 MG CHEWABLE TAB CHEW SCH ×2 (10:57→21:17)
[2016-08-24] MEDS: SODIUM CHLORIDE 0.9% FLUSH 10 ML FLUSH IV FLUSH SCH ×2 (10:58→21:17)
[2016-08-24] MEDS: CHOLECALCIFEROL (VIT D3) 1000 UNIT TAB PO SCH (10:58)
[2016-08-24] MEDS: FUROSEMIDE 40 MG/4 ML VIAL IV PUSH SCH ×2 (10:58→17:56)
[2016-08-24] MEDS: COLLAGENASE OINT 30 GM TUBE TOPICAL SCH (10:59)
[2016-08-24] MEDS: FERROUS SULFATE 325 MG (65 MG ELEMENTAL IRON) TAB PO SCH (12:52)
[2016-08-24] MEDS: CEFEPIME INJ 1,000 MG in SODIUM CHLORIDE 0.9% INJ 100 ML IV SCH (14:18)
--- NOTE | 2016-08-24 14:28 | HHI.CCPN ---
Subjective Remarks/Hospital Course 08/20: 61-year-old male admitted on 07/25/2016 by family medicine service after he was found at home by DCF not being able to take care of himself lying on the ground in his own feces. Previously patient was in the hospital from October 15, 2015 to July 18, 2016. During this hospitalization he was noted to be anemic secondary to anemia of chronic disease as well as possible myelosuppression for which she received blood transfusions and Procrit and was evaluated by hematology. He also has a PEG tube placed during this admission for maintaining his nutritional status. His neurologic status fluctuates and he goes from conversing to being encephalopathic. He has had multiple strokes and does have coronary artery disease with previous CABG and stenting. He is on Eliquis for anticoagulation and does have an ischemic cardiomyopathy as well as diabetes mellitus. He was recently started on Rocephin for a UTI. This morning patient was noted to have hypotension and some altered mental status. He was given fluid bolus and a chest x-ray was done earlier. Subsequently around 7 AM CODE BLUE cardiac arrest code was called for which I responded to the floor. At the time of my arrival patient was being ventilated with bag mask ventilation. He initially had agonal respirations. He was noted to be in asystole on the monitor subsequently so CPR/ACLS protocol was initiated. Patient had return of circulation following about 15 minutes of ACLS protocol and was noted to have a left bundle branch block which appeared old. He was started on an epinephrine drip for hypotension and transported to [facility]. Shortly following his arrival to the unit he underwent another episode of bradycardia and subsequently lost his pulse. CPR/ACLS protocol was initiated and he had return of spontaneous circulation following about 5 minutes of ACLS. He had a central line and a femoral arterial line placed emergently by myself. Stat labs were sent as well as ABG. Patient was continued on mechanical ventilation. He subsequently had 2 further episodes of cardiac arrest from which he was successfully resuscitated. History was obtained by reviewing records and discussion with family medicine team and floor as well as floor nursing staff. 08/21: Remains sedated, orally intubated on mechanical ventilation. Sedation held this morning to assess neurologic status. On dopamine 5 mics per KG per minute. Off other pressors at this time. Troponin greater than 40 this morning. On Protonix drip which was started yesterday for some rectal bleeding which is now stopped. EF 25% on 2-D echo done yesterday. Eliquis continues to be on hold. On aspirin. 08/22: Dopamine 2.5mcgs weaned off this morning. The patient appears hemodynamically stable, normotensive. 08/23: Tmax 99.7. Dopamine remained off overnight, patient remains normotensive. Overnight the patient began to follow commands moving his extremities 4. CPAP trials to begin today. Physical therapy order for functional maintenance. Leukocytosis trending down. Will discontinue femoral central line and arterial line today. 08/24: Afebrile. CPAP was initiated today, the pain patient continues on CPAP since 8:30 this morning 10/5/FiO2 of 30%. He remains hemodynamically stable at this point, we'll reconsult GI regarding possible upper endoscopy and colonoscopy, defer recommendations regarding heparin. Objective Vital Signs Date Time Temp Pulse Resp B/P Pulse Ox O2 Delivery O2 Flow Rate FiO2 08/24/16 12:00 97.6 92 19 111/79 100 08/24/16 11:32 30 Intake and Output 08/23/16 08/23/16 08/24/16 08:00 16:00 00:00 Intake Total 455 ml 718 ml 465 ml Output Total 400.0 ml 250.0 ml 650 ml Balance 55.0 ml 468.0 ml -185 ml Result Diagram: 08/23/16 0510 08/24/16 0405 Imaging Last 24 hours Impressions Chest X-Ray 08/20/16 0500 Signed Impressions: Service Date/Time: Saturday, August 20, 2016 05:06 - CONCLUSION: Low lung volumes with bibasilar consolidation. Consolidation could relate to atelectasis or infiltrates. Daryl Prabhakar Jr., MD Chest X-Ray 08/20/16 0000 Signed Impressions: Service Date/Time: Saturday, August 20, 2016 08:15 - CONCLUSION: 1. ET tube in good position. 2. Mild diffuse increased interstitial markings likely representing edema. Camacho Santana MD Last Impressions Chest X-Ray 08/20/16 0500 Signed Impressions: Service Date/Time: Saturday, August 20, 2016 05:06 - CONCLUSION: Low lung volumes with bibasilar consolidation. Consolidation could relate to atelectasis or infiltrates. Daryl Prabhakar Jr., MD Bone Osseous Survey 4/2/17 0000 Signed Impressions: Service Date/Time: Sunday, July 31, 2016 16:09 - CONCLUSION: Unremarkable bone survey. Incidental note made of median sternotomy. Multiple gallstones. Richard Gerber MD Head CT 07/25/16 1644 Signed Impressions: Service Date/Time: Monday, July 25, 2016 17:19 - CONCLUSION: 1. Lacunar infarcts bilaterally, worse on the left. 2. Negative for an acute process. Didier Clay MD FACR Renal Ultrasound 07/25/16 0000 Signed Impressions: Service Date/Time: Monday, July 25, 2016 20:55 - CONCLUSION: 1. Tiny nonobstructing calcified left renal calculi. 2. No hydronephrosis or solid renal mass. Efren Cleaning MD Objective Remarks HEENT/ Neuro: Encephalopathic off sedation, negligible eye opening with painful stimuli, moves all 4 extremities with painful stimuli ? Localizing/ withdraws, orally intubated, Pallor present, no icterus, tongue/ mucosa moist Neck: No JVD, trachea midline Chest/Pulm: on mech vent, good air entry bilaterally, bilateral coarse crackles , no wheezing. CVS: S1-S2 regular, no murmur, rubs or gallops GI/abdomen: soft, nontender, bowel sounds sluggish. PEG tube in place Extremities: warm bilaterally, trace bilateral edema upper and lower extremity Urinary Catheter: Yes Assessment to: Continue Date of Removal: Aug 23, 2016 Line: Central Venous Catheter Side: Left Location: Femoral A/P Assessment and Plan 61-year-old male with: Cardiac arrest status post CPR Acute respiratory failure on mechanical ventilation Pulmonary edema Shock(resolved) Encephalopathy suspected anoxic brain damage in the setting of poor baseline neurologic function: Elevated troponin with acute [place] Ischemic cardiomyopathy History of CHF with EF 35% PAT/ CKD History of strokes Anemia of chronic disease Diabetes mellitus Myelosuppression Monoclonal gammopathy Sacral decubitus ulcer Status post PEG tube placement UTI Possible sepsis Plan: Neuro: Currently all sedation, monitor neuro status. Some improvement overnight, patient tracking following some commands moving extremities 4. Possible anoxic brain injury secondary to multiple cardiac arrests History of multiple strokes . Head CT negative for bleed (08/21) was on Eliquis for prior strokes however currently on hold due to rectal bleeding. Restart anticoagulation when okay with GI. Cardiovascular: Off epinephrine/Levophed. Dopamine discontinued 08/22. EKG with left bundle branch block. Troponin greater than 40 noted. Cardiology: Dr. Damián Arias not planning any intervention at this time due to poor neurologic status and elevated creatinine. Continue Aspirin. Eliquis last dose on 08/19 pm - continue holding due to rectal bleed 08/20. 2D echo with diffuse hypokinesis, LVEF 25%() Pulmonary: Continue mechanical ventilation, vent bundle, bronchodilators as needed. Continue CPAP trials DuoNeb treatments every 6 hours scheduled every 2 hours when necessary GI/liver: Continue PEG feeds with Glucerna @ 30cc/hr. Advance to goal. Zofran for nausea Renal/: Given Lasix 80 mg IV stat on 08/20 for pulmonary edema. Strict intake output Monitor and replete electrolytes follow BUN creatinine. Willl continue lasix to maintain even to slightly negative fluid balance Endocrine: SSI for glycemic control Heme: Transfused 1 unit PRBC on 08/20. Follow CBC. Being followed by hematology. Transfused 1 unit PRBCs 08/20 in view of acute [place] to bring hemoglobin closer to 9 g percent ID: On Cefepime for UTI. Urine culture with Pseudomonas recently. Repeat cultures sent. Prophylaxis: PPI/SCDs. Holding anticoagulation with Eliquis due to rectal bleeding on 08/20. Clear with GI prior to starting subcutaneous heparin. Lines: Left femoral central venous catheter, left femoral arterial line placed on 08/20 Prognosis appears extremely poor. Condition critical. Dispo: DCF assigned as decision maker for patient, palliative care team meeting scheduled for 08/25/16 with DCF case assembler for discussion of goals of care. Discussed with family medicine service, Discussed with ICU nursing staff. This patient remains critically ill with one or more organ systems which are or may become a threat to life. I have spent in excess of 30 minutes discontinuously in the care and management of this patient. This time is exclusive of procedures, and includes, but is not limited to, evaluation of the patient, review of the medical record, discussions with family, consultants, nursing staff, or respiratory therapy, and documentation in the medical record. Physician Quin Hodges MD Aug 24, 2016 14:28
[2016-08-24 15:51] LABS: BLOOD GAS BASE EXCESS 0.4 mmol/L (-2-2); BLOOD GAS CARBOXYHEMOGLOBIN 1.6 % (0-4); BLOOD GAS HCO3 22 mmol/L (22-26); BLOOD GAS METHEMOGLOBIN 0.6 % (0-2); BLOOD GAS O2 HGB SATURATION 98 % (90-100); BLOOD GAS OXYGEN CONTENT 16.8 Vol % (12.0-20.0); BLOOD GAS PCO2 23 mmHg (38-42); BLOOD GAS PO2 221 mmHg (61-120); BLOOD GAS TOTAL HGB 11.9 G/DL (12.0-16.0); CRITICAL VALUE YES; OXYGEN DEVICE VENTILATOR; TEMP CORR TO 98.6
[2016-08-24 15:52] LABS: DRAW SITE ART LINE; FIO2 50 %; STAT NO; ULNAR PULSE PRESENT; VENT SETTINGS PRVC/20/550/IT1.0/+5
[2016-08-24] MEDS ORDERED: RESP: ALBUTEROL 2.5 MG/IPRATROPIUM 0.5 MG NEB (PRN) NEB (16:00)
[2016-08-24] MEDS: RESP: ALBUTEROL 2.5 MG/IPRATROPIUM 0.5 MG NEB (SCH) NEB ×2 (16:02→20:27)
--- NOTE | 2016-08-24 17:02 | HHI.GIFU ---
Subjective Remarks GI reconsulted for EGD for anemia. Pt on vent, nonverbal. (Bella Reyes) Objective Vitals I&O Vital Signs Date Time Temp Pulse Resp B/P Pulse Ox O2 Delivery O2 Flow Rate FiO2 08/24/16 16:02 100 50 08/24/16 14:00 93 08/24/16 12:00 97.6 92 19 111/79 100 08/24/16 12:00 92 08/24/16 11:32 100 30 08/24/16 10:00 92 08/24/16 08:45 30 08/24/16 08:18 100 30 08/24/16 08:00 97 08/24/16 08:00 97.8 97 20 127/75 100 08/24/16 06:00 94 112/84 128/79 08/24/16 06:00 94 08/24/16 04:05 100 30 08/24/16 04:00 99.6 94 21 126/78 100 08/24/16 04:00 94 08/24/16 02:00 94 08/24/16 01:07 100 30 08/24/16 00:00 99.6 98 20 123/71 100 08/24/16 00:00 98 08/23/16 22:00 97 08/23/16 20:00 100 08/23/16 20:00 98.8 100 20 124/73 100 08/23/16 20:00 100 112/79 123/73 08/23/16 19:48 99 30 08/23/16 18:00 100 08/23/16 18:00 98 08/23/16 17:57 99 30 I/O 08/23/16 08/23/16 08/23/16 08/24/16 08/24/16 08/24/16 07:00 15:00 23:00 07:00 15:00 23:00 Intake Total 455 ml 718 ml 465 ml 600 ml 200 ml Output Total 400 ml 250 ml 650 ml 450 ml 1175 ml Balance 55 ml 468 ml -185 ml 150 ml -975 ml IV Total 108 ml 164 ml 105 ml 200 ml Tube Feeding 347 ml 554 ml Other 360 ml 600 ml Output Urine Total 400 ml 250 ml 650 ml 450 ml 1175 ml Stool Total 0 ml Tube Feeding Residual Discard 0 ml 0 ml 0 ml # Bowel Movements 0 0 0 Laboratory Laboratory Tests Test 08/24/16 08/24/16 04:05 15:45 Potassium Level 3.5 Blood Gas Puncture Site ART LINE Blood Gas Patient Temperature 98.6 Blood Gas HCO3 22 Blood Gas Base Excess 0.4 Blood Gas Oxygen Saturation 98 Arterial Blood pH 7.59 Arterial Blood Partial 23 Pressure CO2 Arterial Blood Partial 221 Pressure O2 Arterial Blood Oxygen Content 16.8 Arterial Blood 1.6 Carboxyhemoglobin Arterial Blood Methemoglobin 0.6 Blood Gas Hemoglobin 11.9 Oxygen Delivery Device VENTILATOR Blood Gas Ventilator Setting PRVC/20/550/IT1.0/+5 Blood Gas Inspired Oxygen 50 Date/Time Procedure Status Source Growth 08/20/16 06:13 Aerobic Blood Culture - Preliminary Resulted Blood Peripheral NO GROWTH IN 4 DAYS 08/20/16 06:13 Anaerobic Blood Culture - Preliminary Resulted Blood Peripheral NO GROWTH IN 4 DAYS Imaging Last Impressions Head CT 08/21/16 0000 Signed Impressions: Service Date/Time: Sunday, August 21, 2016 03:47 - CONCLUSION: No acute disease. Daryl Prabhakar Jr., MD Chest X-Ray 08/20/16 0500 Signed Impressions: Service Date/Time: Saturday, August 20, 2016 05:06 - CONCLUSION: Low lung volumes with bibasilar consolidation. Consolidation could relate to atelectasis or infiltrates. Daryl Prabhakar Jr., MD Bone Osseous Survey 07/31/16 0000 Signed Impressions: Service Date/Time: Sunday, July 31, 2016 16:09 - CONCLUSION: Unremarkable bone survey. Incidental note made of median sternotomy. Multiple gallstones. Richard Gerber MD Renal Ultrasound 07/25/16 0000 Signed Impressions: Service Date/Time: Monday, July 25, 2016 20:55 - CONCLUSION: 1. Tiny nonobstructing calcified left renal calculi. 2. No hydronephrosis or solid renal mass. Efren Cleaning MD Physical Exam HEENT: Normocephalic; atraumatic CHEST: Resp shallow/even. Diminished. OETT to vent. CARDIAC: RRR ABDOMEN: Soft, nondistended, nontender; no hepatosplenomegaly; bowel sounds are present in all four quadrants. PEG site free of redness, drainage, or swelling. EXTREMITIES: Right BKA, left foot dark ulcer medial side SKIN: Normal; no rash; no jaundice. STAFF APPRAISER: Somnolent (Bella Reyes) Assessment and Plan Plan ASSESSMENT: - Anemia/Rectal bleeding. EGD planned for tomorrow but palliative care also following. D/w palliative care and will keep order for consents and NPO but will hold off on procedure until DCF makes decision whether to pursue palliative care and transfer pt to appropriate facility, and if they would like to proceed with EGD. Pt was previously hospitalized from October 15, 2015 to July 18, 2016. During that hospitalization he was noted to be anemic secondary to anemia of chronic disease as well as possible myelosuppression for which he received blood transfusions and Procrit and was evaluated by hematology. Pt was seen by GI team during that admission for evaluation of iron deficiency anemia. He underwent incomplete colonoscopy on 08/05/16 which noted poor prep, internal hemorrhoids, recommendation to repeat in 3 days. At that time the repeat colonoscopy was not performed as the patient would not tolerate prep even with NGT in place. Pt had a PEG tube for feeding placed on 08/08/16 for maintaining his nutritional status. He was on Eliquis for anticoagulation and has ischemic cardiomyopathy. Pt coded 4 times yesterday and was transferred to [facility] and is currently intubated. Nursing staff reported that the pt had an episode of bright red rectal bleeding Monday night. He has not had any further bleeding today. His HH is stable at this time. G tube to LIWS with small amount of dark green gastric secretions, he is on PRBC. His G-tube was placed to LIWS and he was started on Protonix gtt. The pts Eliquis was last given on 08/19/16. He is still on ASA. Pt is on pressors. Of note, he had cardiac arrest x 4 over weekend and it is possible that he could have some ischemia related to this. However, he has not had any further bleeding and therefore at this time, we will continue to monitor HH and consider egd/ colonoscopy once more stable. - Cardiac arrest x 4 s/p CPR. Per chassis inspector and Cardiology. - Acute respiratory failure on mechanical ventilation per Fryline Attendant - Encephalopathy suspected anoxic brain damage in the setting of poor baseline neurologic function as pt is off sedation and poor neuro status. - Elevated troponin with suspected acute CT. Cardiology following. No cardiac cath planned at this time. - Acute on chronic renal failure with multiple electrolyte abnormalities. Per renal - CHF, CAD, HTN, DM, Hx CVA per primary. PLAN: - Glucerna 1.5 and increase to GR 60 mls/hr goal - NPO after midnight - EGD tomorrow pending DCF decision to pursue palliative care - Protonix 40mg IV BID - Monitor HH - Transfuse as necessary - Supportive care - Monitor for any active GIB and notify GI if any active bleeding noted. - The pt was seen and examined by myself and Dr. Gómez, this note was written on his behalf. (Bella Reyes) Physician Comments Patient seen and examined Agree with above Continue with current supportive care Monitor labs Await decision for further care Tentatively will plan on an EGD (Sherman Gómez MD) Bella Reyes Aug 24, 2016 17:02 Sherman Gómez MD Aug 24, 2016 23:37
--- NOTE | 2016-08-24 17:18 | HHI.HCPN ---
Reason for visit a. To assist with evaluation and management of symptoms including: Pain, dyspnea b. To assist medical decision maker(s) with: better understanding of current medical conditions; weighing benefits/burdens of medical treatment options; making medical treatment decisions. Subjective/Interval History Pt remains on a vent was on CPAP but failed to maintain saturations. Last ABG showed a pCO2 of 23. He is now on full vent support.. Leukocytosis is improving. He is not awake nor responding today. He remains anemic with a HGB of 8.3. Plan is for EGD tomorrow. Will need consent from [facility] CM. Will also determine goals of care. Advance Directives Living Will: Never completed Health Care Surrogate: Never completed Durable Power of [employer]: Never completed Advance Directive Specifics Health Care Surrogate(s): Pt is Yisel Nation/[facility] adult protective caseworker. Meeting is set for 08/25/16 10-11 am to discuss GOC Objective Vital Signs Date Time Temp Pulse Resp B/P Pulse Ox O2 Delivery O2 Flow Rate FiO2 08/24/16 16:02 100 50 08/24/16 14:00 93 08/24/16 12:00 97.6 92 19 111/79 100 08/24/16 12:00 92 08/24/16 11:32 100 30 08/24/16 10:00 92 08/24/16 08:45 30 08/24/16 08:18 100 30 08/24/16 08:00 97 08/24/16 08:00 97.8 97 20 127/75 100 08/24/16 06:00 94 112/84 128/79 08/24/16 06:00 94 08/24/16 04:05 100 30 08/24/16 04:00 99.6 94 21 126/78 100 08/24/16 04:00 94 08/24/16 02:00 94 08/24/16 01:07 100 30 08/24/16 00:00 99.6 98 20 123/71 100 08/24/16 00:00 98 08/23/16 22:00 97 08/23/16 20:00 100 08/23/16 20:00 98.8 100 20 124/73 100 08/23/16 20:00 100 112/79 123/73 08/23/16 19:48 99 30 08/23/16 18:00 100 08/23/16 18:00 98 08/23/16 17:57 99 30 Intake & Output 08/24/16 08/24/16 07:00 19:00 Intake Total 1065 ml 200 ml Output Total 1100 ml 1175 ml Balance -35 ml -975 ml IV Total 105 ml 200 ml Other 960 ml Output Urine Total 1100 ml 1175 ml # Bowel Movements 0 0 Physical Exam CONSTITUTIONAL/GENERAL: This is an thin male, in no apparent distress. TUBES/LINES/DRAINS: GEG tube ET tube, left femoral line, urinary catheter SKIN: No jaundice, rashes, or lesions. Ecchymoses on upper extremities. No wounds seen anteriorly. Skin temperature appropriate. Not diaphoretic. HEAD: Atraumatic. Normocephalic. EYES: Pupils are reactive ENT: Nose without bleeding or purulent drainage. Throat without visible erythema, exudates, masses, or lesions. NECK: Trachea midline. Supple, nontender. No palpable thyroid enlargement or nodularity. CARDIOVASCULAR: Regular rate and rhythm without murmurs, gallops, or rubs. No JVD. Pulses palpable on left foot RESPIRATORY/CHEST: Symmetric, unlabored respirations. Clear diminished to auscultation. Breath sounds equal bilaterally. No wheezes, rales, or rhonchi. GASTROINTESTINAL: PEG mid abdomen. Abdomen soft, non-tender, nondistended. No hepato-splenomegaly, or palpable masses. Bowel sounds present. GENITOURINARY: Without palpable bladder distension. Diehl catheter in place. MUSCULOSKELETAL: Right BKA, left foot with decubitus on great toe, without clubbing, cyanosis, or edema. . LYMPHATICS: No palpable cervical or supraclavicular adenopathy. NEUROLOGICAL: sleeping, did not awaken to call of name or touch. Unable to determine cognition. Moves all extremities. PSYCHIATRIC: No obvious anxiety/depression. no apparent hallucinations or other psychotic thought process. Diagnostic Tests Laboratory Laboratory Tests Test 08/21/16 08/22/16 08/22/16 08/23/16 18:45 02:00 17:40 05:10 Hemoglobin 9.0 GM/DL 8.7 GM/DL 8.3 GM/DL (13.0-17.0) (13.0-17.0) (13.0-17.0) Hematocrit 26.1 % 25.8 % 24.1 % (39.0-51.0) (39.0-51.0) (39.0-51.0) White Blood Count 16.6 TH/MM3 12.7 TH/MM3 (4.0-11.0) (4.0-11.0) Red Blood Count 3.20 MIL/MM3 2.95 MIL/MM3 (4.50-5.90) (4.50-5.90) Mean Corpuscular Volume 80.7 FL 81.9 FL (80.0-100.0) (80.0-100.0) Mean Corpuscular Hemoglobin 27.1 PG 28.0 PG (27.0-34.0) (27.0-34.0) Mean Corpuscular Hemoglobin 33.6 % 34.2 % Concent (32.0-36.0) (32.0-36.0) Red Cell Distribution Width 17.1 % 17.4 % (11.6-17.2) (11.6-17.2) Platelet Count 311 TH/MM3 273 TH/MM3 (150-450) (150-450) Mean Platelet Volume 6.9 FL 7.1 FL (7.0-11.0) (7.0-11.0) Neutrophils (%) (Auto) 88.1 % 85.0 % (16.0-70.0) (16.0-70.0) Lymphocytes (%) (Auto) 5.5 % 7.3 % (9.0-44.0) (9.0-44.0) Monocytes (%) (Auto) 5.5 % (0.0-8.0) 5.9 % (0.0-8.0) Eosinophils (%) (Auto) 0.2 % (0.0-4.0) 1.2 % (0.0-4.0) Basophils (%) (Auto) 0.7 % (0.0-2.0) 0.6 % (0.0-2.0) Neutrophils # (Auto) 14.6 TH/MM3 10.8 TH/MM3 (1.8-7.7) (1.8-7.7) Lymphocytes # (Auto) 0.9 TH/MM3 0.9 TH/MM3 (1.0-4.8) (1.0-4.8) Monocytes # (Auto) 0.9 TH/MM3 0.7 TH/MM3 (0-0.9) (0-0.9) Eosinophils # (Auto) 0.0 TH/MM3 0.2 TH/MM3 (0-0.4) (0-0.4) Basophils # (Auto) 0.1 TH/MM3 0.1 TH/MM3 (0-0.2) (0-0.2) CBC Comment DIFF FINAL DIFF FINAL Differential Comment Sodium Level 140 MEQ/L 141 MEQ/L (136-145) (136-145) Potassium Level 3.0 MEQ/L 3.2 MEQ/L 3.6 MEQ/L (3.5-5.1) (3.5-5.1) (3.5-5.1) Chloride Level 104 MEQ/L 107 MEQ/L (98-107) (98-107) Carbon Dioxide Level 26.4 MEQ/L 24.5 MEQ/L (21.0-32.0) (21.0-32.0) Anion Gap 10 MEQ/L (5-15) 10 MEQ/L (5-15) Blood Urea Nitrogen 39 MG/DL (7-18) 43 MG/DL (7-18) Creatinine 1.84 MG/DL 2.11 MG/DL (0.60-1.30) (0.60-1.30) Estimat Glomerular Filtration 38 ML/MIN (>89) 32 ML/MIN (>89) Rate Random Glucose 124 MG/DL 119 MG/DL (74-106) (74-106) Calcium Level 8.3 MG/DL 7.6 MG/DL (8.5-10.1) (8.5-10.1) Phosphorus Level 2.8 MG/DL (2.5-4.9) Magnesium Level 1.4 MG/DL 1.5 MG/DL (1.5-2.5) (1.5-2.5) Total Bilirubin 0.9 MG/DL (0.2-1.0) Aspartate Amino Transf 158 U/L (15-37) (AST/SGOT) Alanine Aminotransferase 183 U/L (12-78) (ALT/SGPT) Alkaline Phosphatase 116 U/L (45-117) Total Protein 6.3 GM/DL (6.4-8.2) Albumin 2.0 GM/DL (3.4-5.0) Test 08/24/16 08/24/16 04:05 15:45 Potassium Level 3.5 MEQ/L (3.5-5.1) Blood Gas Puncture Site ART LINE Blood Gas Patient Temperature 98.6 Blood Gas HCO3 22 mmol/L (22-26) Blood Gas Base Excess 0.4 mmol/L (-2-2) Blood Gas Oxygen Saturation 98 % (90-100) Arterial Blood pH 7.59 (7.380-7.420) Arterial Blood Partial 23 mmHg (38-42) Pressure CO2 Arterial Blood Partial 221 mmHg Pressure O2 (61-120) Arterial Blood Oxygen Content 16.8 Vol % (12.0-20.0) Arterial Blood 1.6 % (0-4) Carboxyhemoglobin Arterial Blood Methemoglobin 0.6 % (0-2) Blood Gas Hemoglobin 11.9 G/DL (12.0-16.0) Oxygen Delivery Device VENTILATOR Blood Gas Ventilator Setting PRVC/20/550/IT1.0/+5 Blood Gas Inspired Oxygen 50 % Result Diagram: 08/23/16 0510 08/24/16 0405 Assessment and Plan Disease Oriented Problem List: (1) History of lacunar cerebrovascular accident (2) HTN (hypertension) (3) Cardiac arrest (4) Rectal bleeding (5) Diabetes (6) Hypertension (7) Venous stasis ulcer of left lower extremity Symptom Scale: (1) Pain 0-10 Scale: Unable to quantify Comment: Wound to the buttocks and L great toe (2) Dyspnea 0-10 Scale: Unable to quantify Comment: Manage the ventilator Pertinent Non-Medical Issues Psychosocial: 61-year-old male with one sister who was found in his home with self-care neglect. 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 Worked as a [employer]. Spiritual: Unknown Legal: DCF studio set up worker is Yisel Nation is health care decision maker Ethical issues impacting care: Need to establish decision-maker for healthcare. This patient is unable to state his wishes Important Contacts Yisel Nation, case management for [facility] Prognosis Prognosis is guarded in light of his long-standing cardiac disease. Recent myocardial infarction with cardiac arrest and ACLS protocol x 4 attempts. Clinical status is complicated by diabetes as well as respiratory failure; also liekly anoxic brain injury. Chance of recovery to meaningful existance is unlikely Code Status: Full Code Plan Decision Maker: Yiselamy DAVIS adult protective caseworker [phone] Code Status: Full code Family Discussion: meeting scheduled with Yisel RYAN Nation studio set up worker Symptoms: Pain secondary to decubitus as well as long-term bedrest Dyspnea secondary to respiratory failure Palliative care phone number provided - will follow during hospital stay. Attestation To help prompt me to consider important information that might be impacting today's encounter and assessment, information from prior notes written by myself or my colleagues may have been "brought forward" into today's note. My signature on this note, however, is an attestation that I personally performed the exam, history, and/or decision-making noted today, and, unless otherwise indicated, the interactions with patient, family, and staff as well as the review of records all occurred today. I also attest that the listed assessment and stated plan reflect my best clinical judgment today based on the combination of historical information, prior notes, and today's exam/ interactions. When time spent is documented, it refers only to time spent today by the signer, or if indicated, combined time spent today by collaborating physician/nurse practitioner. Cecy Ding Aug 24, 2016 17:18
[2016-08-24] MEDS: ATORVASTATIN 80 MG TAB PO SCH (21:17)
[2016-08-24] MEDS: MIRTAZAPINE 15 MG TAB PO SCH (21:17)
[2016-08-25] VITALS (15 sets, daily range): BP systolic 108–139; BP diastolic 69–99; PULSE 84–100; RESP 16–18; TEMP 98–99.8; O2SAT 98–100
[2016-08-25] MEDS: FREE WATER G-TUBE SCH ×6 (00:55→20:00)
[2016-08-25] MEDS: PANTOPRAZOLE SODIUM 40 MG VIAL IV PUSH SCH ×2 (00:58→11:47)
[2016-08-25] MEDS: RESP: ALBUTEROL 2.5 MG/IPRATROPIUM 0.5 MG NEB (SCH) NEB ×4 (03:55→20:36)
[2016-08-25] MEDS: INSULIN ASPART SUPPLEMENTAL SCALE SQ SCH ×4 (06:16→21:00)
[2016-08-25] MEDS: FERROUS SULFATE 325 MG (65 MG ELEMENTAL IRON) TAB PO SCH (08:00)
[2016-08-25] MEDS: ASPIRIN 81 MG CHEW TAB G-TUBE SCH (09:00)
[2016-08-25] MEDS: COLLAGENASE OINT 30 GM TUBE TOPICAL SCH (09:00)
[2016-08-25] MEDS: SODIUM CHLORIDE 0.9% FLUSH 10 ML FLUSH IV FLUSH SCH ×2 (09:00→20:25)
[2016-08-25] MEDS: CALCIUM CARBONATE 500 MG CHEWABLE TAB CHEW SCH ×2 (09:00→20:24)
[2016-08-25] MEDS: CHOLECALCIFEROL (VIT D3) 1000 UNIT TAB PO SCH (09:00)
--- NOTE | 2016-08-25 09:48 | HHI.FPPN ---
Subjective Remarks Patient remains intubated, not sedated. Responds appropriately to commands. Case discussed with Dr. Douglas. Scheduled for EGD today if DCF signs consent. ( Balbir Nguyễn MD R2) Objective Vitals Vital Signs Date Time Temp Pulse Resp B/P Pulse Ox O2 Delivery O2 Flow Rate FiO2 08/25/16 08:21 100 40 08/25/16 06:00 88 08/25/16 04:00 98.9 89 16 139/93 100 08/25/16 04:00 84 08/25/16 03:55 100 40 08/25/16 02:00 85 08/25/16 00:39 100 40 08/25/16 00:00 89 08/25/16 00:00 98.4 89 16 108/74 98 Arterial Line 08/24/16 22:00 93 08/24/16 20:27 100 40 08/24/16 20:00 98.6 85 16 125/85 100 08/24/16 20:00 85 08/24/16 18:00 84 08/24/16 16:02 100 50 08/24/16 16:00 98.6 83 16 125/83 100 08/24/16 16:00 88 08/24/16 14:00 93 08/24/16 12:00 97.6 92 19 111/79 100 08/24/16 12:00 92 08/24/16 11:32 100 30 08/24/16 10:00 92 I/O 08/24/16 08/24/16 08/24/16 08/25/16 08/25/16 08/25/16 07:00 15:00 23:00 07:00 15:00 23:00 Intake Total 600 ml 200 ml 455 ml 325 ml Output Total 450 ml 1175 ml 1650 ml 1000 ml Balance 150 ml -975 ml -1195 ml -675 ml IV Total 200 ml 90 ml Tube Feeding 65 ml 25 ml Other 600 ml 300 ml 300 ml Output Urine Total 450 ml 1175 ml 1650 ml 1000 ml # Bowel Movements 0 0 0 (Balbir Nguyễn MD R2) Result Diagram: 08/23/16 0510 08/24/16 0405 Objective Remarks GENERAL: male laying in bed orally intubated. SKIN: Warm and dry. Appears pale. HEENT: Tracks eyes. PERRLA. HEART: RRR no m/r/g. LUNGS: Mechanically ventilated. Good air movement. Anterior lung sounds coarse. ABDOMEN: Hypoactive bowel sounds. Soft, NT, ND. PEG tube in place. EXTREMITIES: R BKA. LLE without edema. (Balbir Nguyễn MD R2) Date of Removal: Aug 23, 2016 Line: Central Venous Catheter Side: Left Location: Femoral (Balbir Nguyễn MD R2) A/P Assessment and Plan 61 yo M, hx of prolonged hospital stay from September 2015 - July 18, 2016, having returned to the hospital on July 22 for fall. Admitted for AMS, rhabdomyolysis , dehydration, hypernatremia and anemia. PEG tube has been placed due to decreased PO intake and dehydration. Patient is currently in critical condition due to ischemic cardiac event. Cardiology has been consulted, no interventions anticipated until pt shows clinical improvement. Discharge Planning Unclear discharge timetable as patient in critical condition and DCF making medical decisions for the patient. Palliative to have meeting with DCF tentatively on 08/25 to review goals of care. (Balbir Nguyễn MD R2) Attending Attestation Pt. examined and case discussed with resident physicians I have read the above note and agree with the assessment/plan as discussed with me I was involved in all medical decision making for this patient Abiodun Austin MD (Abiodun Austin MD) Problem List: (1) Myocardial infarction acute Status: Acute Plan: Cardiac arrest s/p CPR with ROSC. Troponin as high as >40 and EKG with LBBB. Cardiology consulted and patient in too critical condition for intervention at this time. - 2D echo with diffuse hypokinesis and LVEF 25% - Continue baby ASA - Eliquis held secondary to rectal bleeding -Pressor support per critical care (2) Respiratory failure Status: Acute Plan: Patient intubated, awake, and alert. Vent management per critical care. - CXR 08/20 showed low lung volumes with bibasilar consolidation (3) Rectal bleeding Status: Acute Plan: Pt with anemia and acute rectal bleeding was noted. -GI consulted, appreciate recommendations * Patient is currently not stable for EGD/colonoscopy * Protonix 40 mg IV BID * Monitor for active GI bleed and H&H * Transfuse as needed (4) UTI (urinary tract infection) Status: Acute Plan: Repeat UA on 08/18 significant for hazy appearance, 30 protein, small occult blood, positive nitrites, large leukocyte esterase, many white blood cell clumps, moderate bacteria. Urine culture: Pseudomonas aeruginosa, sensitive to cefepime Continue Cefepime 1gm BID (08/19-) x anticipate duration of 10 days (5) Decubitus ulcer, stage 3 Status: Acute Plan: Patient with large decubitus ulcer over lower back; appears to be healing with good granulation tissue -Wound care consulted, appreciate recommendations * Collagenase ointment to be applied daily * Wound dressing changes daily per RN (6) Anemia Status: Chronic Plan: Likely secondary to chronic disease with GI bleeding. Hematolgoy consulted and patient on Procrit -GI consult -EGD scheduled on 08/25 (consent by DCF) -Continue iron supplementation -Continue Protonix -FOBT positive. GI following and patient had EGD/colonoscopy performed 08/05 showing internal and external hemorrhoids. However, limited due to poor bowel prep and currently not a candidate for repeat - Monitor H&H (7) [id number] kidney injury Status: Acute Plan: Currently stable Nephrology consulted -Avoid nephrotoxic meds -Closely monitor I&O -Renal US: unremarkable (8) Altered mental status Status: Chronic Plan: Pt likely with recent anoxic brain injury due to decreased brain perfusion secondary to cardiac arrest. He has had multiple ischemic strokes in the past including a lacunar infarct on 10/20/15. At patient's baseline he is able to communicate with yes or no answers. He has also been able to express himself using complete sentences. -CT head 08/21 with no acute disease -EEG showing changes with diffuse encephalopathy (9) Chronic systolic (congestive) heart failure Status: Chronic Plan: Patient with hx of CHF, EF 35% from September 2015. -Echo from 08/20 significant for EF of 20-25% with diffuse hypokinesis. -Lasix 40 mg IV twice a day (10) Coronary artery disease Status: Chronic Plan: Continue statin. Antihypertensives held in light of hypotensive shock. Eliquis held secondary to rectal bleeding. (11) HTN (hypertension) Status: Chronic Plan: Holding home meds in light of hypotension requiring pressors. (12) Low vitamin D level Status: Acute Plan: Vitamin D low at 11.6. -Cholecalciferol 2000 units po Daily -Calcium carbonate 500 mg BID (13) Diabetes mellitus Status: Chronic Plan: A1C 6.9 on 11/25/15, not on oral medications as an outpatient -Continue to monitor -Low dose SSI (14) Nutrition, metabolism, and development symptoms Status: Acute Plan: - Fluids: Free water via PEG - Electrolytes: Monitor and replete as needed - Nutrition: Glucerna tube feeds with goal 1.5 at 60 ml/hr - DVT prophylaxis: chemical anticoagulation C/I 2/2 rectal bleeding - GI prophylaxis: on PPI dw Dr. Austin (Balbir Nguyễn MD R2) Problem Qualifiers (1) Anemia: Qualified Code: D50.8 - Other iron deficiency anemia (2) Altered mental status: Qualified Code: R41.82 - Altered mental status, unspecified altered mental status type (3) Coronary artery disease: Qualified Code: I25.10 - Coronary artery disease involving chitina heart without angina pectoris, unspecified vessel or lesion type (4) HTN (hypertension): Qualified Code: I10 - Essential hypertension (5) Diabetes mellitus: Qualified Code: E11.51 - Type 2 diabetes mellitus with diabetic peripheral angiopathy without gangrene, without long-term current use of insulin Balbir Nguyễn MD R2 Aug 25, 2016 09:48 Abiodun Austin MD Aug 25, 2016 14:07
[2016-08-25] MEDS: FUROSEMIDE 40 MG/4 ML VIAL IV PUSH SCH ×2 (10:08→17:38)
[2016-08-25] MEDS: levETIRAcetam INJ 500 MG in SODIUM CHLORIDE 0.9% INJ 100 ML IV SCH ×2 (10:08→20:23)
--- NOTE | 2016-08-25 11:29 | HHI.HCPN ---
Reason for visit a. To assist with evaluation and management of symptoms including: Pain, dyspnea b. To assist medical decision maker(s) with: better understanding of current medical conditions; weighing benefits/burdens of medical treatment options; making medical treatment decisions. Subjective/Interval History Pt remains on a vent was on CPAP but failed to maintain saturations. Last ABG showed a pCO2 of 23. He is now on full vent support.He is not on any sedation . Leukocytosis is improving. Today he is awake for me. Looks at me, follows with his eyes, he is able to squeeze my hands bilaterally ( right is weaker) and open his mouth. I ask him of he is comfortable being hooked up to every thing - he shakes his head no. I ask how he would feel if we were to disconnect him from all the machines even if that would mean he might and would he want that - he shook his head yes. GI is planning a UGI to reinvestigate heme+ stools,. but consent is needed by DCF case resolution specialist. Also need to clarify code status w DCF case resolution specialist. Advance Directives Living Will: Never completed Health Care Surrogate: Never completed Durable Power of Inspecting And Testing Lead Hand: Never completed Advance Directive Specifics Health Care Surrogate(s): Pt is Yisel Nation/RYAN case resolution specialist. Meeting is set for 08/25/16 10-11 am to discuss GOC Objective Vital Signs Date Time Temp Pulse Resp B/P Pulse Ox O2 Delivery O2 Flow Rate FiO2 08/25/16 08:21 100 40 08/25/16 06:00 88 08/25/16 04:00 98.9 89 16 139/93 100 08/25/16 04:00 84 08/25/16 03:55 100 40 08/25/16 02:00 85 08/25/16 00:39 100 40 08/25/16 00:00 89 08/25/16 00:00 98.4 89 16 108/74 98 Arterial Line 08/24/16 22:00 93 08/24/16 20:27 100 40 08/24/16 20:00 98.6 85 16 125/85 100 08/24/16 20:00 85 08/24/16 18:00 84 08/24/16 16:02 100 50 08/24/16 16:00 98.6 83 16 125/83 100 08/24/16 16:00 88 08/24/16 14:00 93 08/24/16 12:00 97.6 92 19 111/79 100 08/24/16 12:00 92 08/24/16 11:32 100 30 Intake & Output 08/25/16 08/25/16 07:00 19:00 Intake Total 780 ml Output Total 2650 ml Balance -1870 ml IV Total 90 ml Tube Feeding 90 ml Other 600 ml Output Urine Total 2650 ml # Bowel Movements 0 Physical Exam CONSTITUTIONAL/GENERAL: This is an thin male, in no apparent distress. TUBES/LINES/DRAINS: PEG tube ET tube, left femoral line, urinary catheter SKIN: No jaundice, rashes, or lesions. Ecchymoses on upper extremities. No wounds seen anteriorly. Skin temperature appropriate. Not diaphoretic. HEAD: Atraumatic. Normocephalic. EYES: Pupils are reactive ENT: Nose without bleeding or purulent drainage. Throat without visible erythema, exudates, masses, or lesions. NECK: Trachea midline. Supple, nontender. No palpable thyroid enlargement or nodularity. CARDIOVASCULAR: Regular rate and rhythm without murmurs, gallops, or rubs. No JVD. Pulses palpable on left foot RESPIRATORY/CHEST: Symmetric, unlabored respirations. Clear diminished to auscultation. Breath sounds equal bilaterally. No wheezes, rales, or rhonchi. GASTROINTESTINAL: PEG mid abdomen. Abdomen soft, non-tender, nondistended. No hepato-splenomegaly, or palpable masses. Bowel sounds present. GENITOURINARY: Without palpable bladder distension. Diehl catheter in place. MUSCULOSKELETAL: Right BKA, left foot with decubitus on great toe, without clubbing, cyanosis, or edema. . LYMPHATICS: No palpable cervical or supraclavicular adenopathy. NEUROLOGICAL: sleeping, did not awaken to call of name or touch. Unable to determine cognition. Moves all extremities. PSYCHIATRIC: No obvious anxiety/depression. no apparent hallucinations or other psychotic thought process. Diagnostic Tests Laboratory Laboratory Tests Test 08/22/16 08/23/16 08/24/16 08/24/16 17:40 05:10 04:05 15:45 Potassium Level 3.2 MEQ/L 3.6 MEQ/L 3.5 MEQ/L (3.5-5.1) (3.5-5.1) (3.5-5.1) White Blood Count 12.7 TH/MM3 (4.0-11.0) Red Blood Count 2.95 MIL/MM3 (4.50-5.90) Hemoglobin 8.3 GM/DL (13.0-17.0) Hematocrit 24.1 % (39.0-51.0) Mean Corpuscular Volume 81.9 FL (80.0-100.0) Mean Corpuscular Hemoglobin 28.0 PG (27.0-34.0) Mean Corpuscular Hemoglobin 34.2 % Concent (32.0-36.0) Red Cell Distribution Width 17.4 % (11.6-17.2) Platelet Count 273 TH/MM3 (150-450) Mean Platelet Volume 7.1 FL (7.0-11.0) Neutrophils (%) (Auto) 85.0 % (16.0-70.0) Lymphocytes (%) (Auto) 7.3 % (9.0-44.0) Monocytes (%) (Auto) 5.9 % (0.0-8.0) Eosinophils (%) (Auto) 1.2 % (0.0-4.0) Basophils (%) (Auto) 0.6 % (0.0-2.0) Neutrophils # (Auto) 10.8 TH/MM3 (1.8-7.7) Lymphocytes # (Auto) 0.9 TH/MM3 (1.0-4.8) Monocytes # (Auto) 0.7 TH/MM3 (0-0.9) Eosinophils # (Auto) 0.2 TH/MM3 (0-0.4) Basophils # (Auto) 0.1 TH/MM3 (0-0.2) CBC Comment DIFF FINAL Differential Comment Sodium Level 141 MEQ/L (136-145) Chloride Level 107 MEQ/L (98-107) Carbon Dioxide Level 24.5 MEQ/L (21.0-32.0) Anion Gap 10 MEQ/L (5-15) Blood Urea Nitrogen 43 MG/DL (7-18) Creatinine 2.11 MG/DL (0.60-1.30) Estimat Glomerular Filtration 32 ML/MIN (>89) Rate Random Glucose 119 MG/DL (74-106) Calcium Level 7.6 MG/DL (8.5-10.1) Magnesium Level 1.5 MG/DL (1.5-2.5) Blood Gas Puncture Site ART LINE Blood Gas Patient Temperature 98.6 Blood Gas HCO3 22 mmol/L (22-26) Blood Gas Base Excess 0.4 mmol/L (-2-2) Blood Gas Oxygen Saturation 98 % (90-100) Arterial Blood pH 7.59 (7.380-7.420) Arterial Blood Partial 23 mmHg (38-42) Pressure CO2 Arterial Blood Partial 221 mmHg Pressure O2 (61-120) Arterial Blood Oxygen Content 16.8 Vol % (12.0-20.0) Arterial Blood 1.6 % (0-4) Carboxyhemoglobin Arterial Blood Methemoglobin 0.6 % (0-2) Blood Gas Hemoglobin 11.9 G/DL (12.0-16.0) Oxygen Delivery Device VENTILATOR Blood Gas Ventilator Setting [facility]/20/550/IT1.0/+5 Blood Gas Inspired Oxygen 50 % Result Diagram: 08/23/16 0510 08/24/16 0405 Assessment and Plan Disease Oriented Problem List: (1) History of lacunar cerebrovascular accident (2) HTN (hypertension) (3) Cardiac arrest (4) Rectal bleeding (5) Diabetes (6) Hypertension (7) Venous stasis ulcer of left lower extremity Symptom Scale: (1) Pain 0-10 Scale: 4 Comment: Wound to the buttocks and L great toe (2) Dyspnea 0-10 Scale: Unable to quantify Comment: Manage the ventilator Pertinent Non-Medical Issues Psychosocial: 61-year-old male with one sister who was found in his home with self-care neglect. 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 Spiritual: Unknown Legal: DCF community center worker is Yisel Nation is health care decision maker Ethical issues impacting care: Need to establish decision-maker for healthcare. This patient was able to indicate to me that by nod of head he would want to be removed machines and making him more comfortable even if that involved possibly dying. Will ask again when DCF worker is present Important Contacts Yisel Nation, case management for [facility] Prognosis Prognosis is guarded in light of his long-standing cardiac disease. Recent myocardial infarction with cardiac arrest and ACLS protocol x 4 attempts. Clinical status is complicated by diabetes as well as respiratory failure; also possible anoxic brain injury. Chance of recovery to meaningful existance is unlikely considering his baseline prior to hospitalization. Clinical summary: 61-year-old male admitted on 07/25/2016 after he was found at home by RYAN not being able to take care of himself lying on the ground in his own feces. Previously patient was in the hospital from October 15, 2015 to July 18, 2016. During this hospitalization he was noted to be anemic secondary to anemia of chronic disease as well as possible myelosuppression for which she received blood transfusions and Procrit and was evaluated by hematology. He also has a PEG tube placed during this admission for maintaining his nutritional status. His neurologic status fluctuates and he goes from conversing to being encephalopathic. He has had multiple strokes and does have coronary artery disease with previous CABG and stenting. He was on Eliquis for anticoagulation and does have an ischemic cardiomyopathy as well as diabetes mellitus. He was recently started on Rocephin for a UTI. 08/20/16 = This morning patient was noted to have hypotension and some altered mental status. Around 7 AM CODE BLUE cardiac arrest code was called. He initially had agonal respirations. He was noted to be in asystole on the monitor subsequently so CPR/ACLS protocol was initiated. Patient had return of circulation following about 15 minutes of ACLS protocol and was noted to have a left bundle branch block which appeared old. He was started on an epinephrine drip for hypotension and transported to [facility]. Shortly following his arrival to the unit he underwent another episode of bradycardia and subsequently lost his pulse. CPR/ACLS protocol was initiated and he had return of spontaneous circulation following about 5 minutes of ACLS. He had a central line and a femoral arterial line placed emergently by myself. Stat labs were sent as well as ABG. Patient was continued on mechanical ventilation. He subsequently had 2 further episodes of cardiac arrest from which he was successfully resuscitated. 08/21/16 Troponins 40. 08/20/16 LVEF 20-25% with mitral regurg not a candidate for cardio intervention; CT Brain - stable old small lacunar infarcts. Code Status: Full Code Plan Decision Maker: Yisel DAVIS case resolution specialist [phone] Code Status: Full code Family Discussion: meeting scheduled with RYAN [facility] community center worker 11am. Symptoms: Pain secondary to decubitus as well as long-term bedrest Dyspnea secondary to respiratory failure Palliative care phone number provided - will follow during hospital stay. Attestation To help prompt me to consider important information that might be impacting today's encounter and assessment, information from prior notes written by myself or my colleagues may have been "brought forward" into today's note. My signature on this note, however, is an attestation that I personally performed the exam, history, and/or decision-making noted today, and, unless otherwise indicated, the interactions with patient, family, and staff as well as the review of records all occurred today. I also attest that the listed assessment and stated plan reflect my best clinical judgment today based on the combination of historical information, prior notes, and today's exam/ interactions. When time spent is documented, it refers only to time spent today by the signer, or if indicated, combined time spent today by collaborating physician/nurse practitioner. Cecy Ding Aug 25, 2016 11:29
[2016-08-25] MEDS: CEFEPIME INJ 1,000 MG in SODIUM CHLORIDE 0.9% INJ 100 ML IV SCH (14:28)
--- NOTE | 2016-08-25 16:00 | HHI.HCPN ---
Attempted to contact Yisel Watkins, [facility] upper caser, multiple times today to reschedule goals of care meeting as she did not show at scheduled time. No return call at this time. Will continue to try. Palliative care will continue to follow throughout hospitalization. Kimberly Prabhakar, TISSUE REWINDER Aug 25, 2016 16:00
--- NOTE | 2016-08-25 16:39 | HHI.CCPN ---
Subjective Remarks/Hospital Course 08/20: 61-year-old male admitted on 07/25/2016 by family medicine service after he was found at home by DCF not being able to take care of himself lying on the ground in his own feces. Previously patient was in the hospital from October 15, 2015 to July 18, 2016. During this hospitalization he was noted to be anemic secondary to anemia of chronic disease as well as possible myelosuppression for which she received blood transfusions and Procrit and was evaluated by hematology. He also has a PEG tube placed during this admission for maintaining his nutritional status. His neurologic status fluctuates and he goes from conversing to being encephalopathic. He has had multiple strokes and does have coronary artery disease with previous CABG and stenting. He is on Eliquis for anticoagulation and does have an ischemic cardiomyopathy as well as diabetes mellitus. He was recently started on Rocephin for a UTI. This morning patient was noted to have hypotension and some altered mental status. He was given fluid bolus and a chest x-ray was done earlier. Subsequently around 7 AM CODE BLUE cardiac arrest code was called for which I responded to the floor. At the time of my arrival patient was being ventilated with bag mask ventilation. He initially had agonal respirations. He was noted to be in asystole on the monitor subsequently so CPR/ACLS protocol was initiated. Patient had return of circulation following about 15 minutes of ACLS protocol and was noted to have a left bundle branch block which appeared old. He was started on an epinephrine drip for hypotension and transported to [facility]. Shortly following his arrival to the unit he underwent another episode of bradycardia and subsequently lost his pulse. CPR/ACLS protocol was initiated and he had return of spontaneous circulation following about 5 minutes of ACLS. He had a central line and a femoral arterial line placed emergently by myself. Stat labs were sent as well as ABG. Patient was continued on mechanical ventilation. He subsequently had 2 further episodes of cardiac arrest from which he was successfully resuscitated. History was obtained by reviewing records and discussion with family medicine team and floor as well as floor nursing staff. 08/21: Remains sedated, orally intubated on mechanical ventilation. Sedation held this morning to assess neurologic status. On dopamine 5 mics per KG per minute. Off other pressors at this time. Troponin greater than 40 this morning. On Protonix drip which was started yesterday for some rectal bleeding which is now stopped. EF 25% on 2-D echo done yesterday. Eliquis continues to be on hold. On aspirin. 08/22: Dopamine 2.5mcgs weaned off this morning. The patient appears hemodynamically stable, normotensive. 08/23: Tmax 99.7. Dopamine remained off overnight, patient remains normotensive. Overnight the patient began to follow commands moving his extremities 4. CPAP trials to begin today. Physical therapy order for functional maintenance. Leukocytosis trending down. Will discontinue femoral central line and arterial line today. 08/24: Afebrile. CPAP was initiated today, the pain patient continues on CPAP since 8:30 this morning 10/5/FiO2 of 30%. He remains hemodynamically stable at this point, we'll reconsult GI regarding possible upper endoscopy and colonoscopy, defer recommendations regarding heparin. 08/25: Afebrile. The patient continues on CPAP trials, planned meeting with palliative care and DCF unsuccessful today rescheduling will be attempted. The patient is tracking and following commands. Objective Vital Signs Date Time Temp Pulse Resp B/P Pulse Ox O2 Delivery O2 Flow Rate FiO2 08/25/16 12:13 40 08/25/16 12:10 100 08/25/16 12:00 98.0 86 16 118/86 Intake and Output 08/24/16 08/24/16 08/25/16 08:00 16:00 00:00 Intake Total 600 ml 200 ml 455 ml Output Total 450 ml 1175 ml 1650 ml Balance 150 ml -975 ml -1195 ml Result Diagram: 08/23/16 0510 08/24/16 0405 Imaging Last 24 hours Impressions Chest X-Ray 08/20/16 0500 Signed Impressions: Service Date/Time: Saturday, August 20, 2016 05:06 - CONCLUSION: Low lung volumes with bibasilar consolidation. Consolidation could relate to atelectasis or infiltrates. Daryl Prabhakar Jr., MD Chest X-Ray 08/20/16 0000 Signed Impressions: Service Date/Time: Saturday, August 20, 2016 08:15 - CONCLUSION: 1. ET tube in good position. 2. Mild diffuse increased interstitial markings likely representing edema. Camacho Santana MD Last Impressions Chest X-Ray 08/20/16 0500 Signed Impressions: Service Date/Time: Saturday, August 20, 2016 05:06 - CONCLUSION: Low lung volumes with bibasilar consolidation. Consolidation could relate to atelectasis or infiltrates. Daryl Prabhakar Jr., MD Bone Osseous Survey 07/31/16 0000 Signed Impressions: Service Date/Time: Sunday, July 31, 2016 16:09 - CONCLUSION: Unremarkable bone survey. Incidental note made of median sternotomy. Multiple gallstones. Richard Gerber MD Head CT 07/25/16 1644 Signed Impressions: Service Date/Time: Monday, July 25, 2016 17:19 - CONCLUSION: 1. Lacunar infarcts bilaterally, worse on the left. 2. Negative for an acute process. Didier Clay MD FACR Renal Ultrasound 07/25/16 0000 Signed Impressions: Service Date/Time: Monday, July 25, 2016 20:55 - CONCLUSION: 1. Tiny nonobstructing calcified left renal calculi. 2. No hydronephrosis or solid renal mass. Efren Cleaning MD Objective Remarks HEENT/ Neuro: Encephalopathic off sedation, negligible eye opening with painful stimuli, moves all 4 extremities with painful stimuli ? Localizing/ withdraws, orally intubated, Pallor present, no icterus, tongue/ mucosa moist Neck: No JVD, trachea midline Chest/Pulm: on mech vent, good air entry bilaterally, bilateral coarse crackles , no wheezing. CVS: S1-S2 regular, no murmur, rubs or gallops GI/abdomen: soft, nontender, bowel sounds sluggish. PEG tube in place Extremities: warm bilaterally, trace bilateral edema upper and lower extremity Urinary Catheter: Yes Diehl insert reason: Measure Accurate Output Date of Removal: Aug 23, 2016 Line: Central Venous Catheter Side: Left Location: Femoral A/P Assessment and Plan 61-year-old male with: Cardiac arrest status post CPR Acute respiratory failure on mechanical ventilation Pulmonary edema Shock(resolved) Encephalopathy suspected anoxic brain damage in the setting of poor baseline neurologic function: Elevated troponin with acute IA Ischemic cardiomyopathy History of CHF with EF 35% PAT/ CKD History of strokes Anemia of chronic disease Diabetes mellitus Myelosuppression Monoclonal gammopathy Sacral decubitus ulcer Status post PEG tube placement UTI Possible sepsis BKA right lower extremity Plan: Neuro: Currently all sedation, monitor neuro status. Patient tracking following some commands moving extremities 4. Possible anoxic brain injury secondary to multiple cardiac arrests History of multiple strokes . Head CT negative for bleed (08/21) was on Eliquis for prior strokes however currently on hold due to rectal bleeding. Restart anticoagulation when okay with GI. Currently still on hold Cardiovascular: Off epinephrine/Levophed. Dopamine discontinued 08/22. EKG with left bundle branch block. Troponin greater than 40 noted. Cardiology: Dr. Damián Arias not planning any intervention at this time due to poor neurologic status and elevated creatinine. Continue Aspirin. Eliquis last dose on 08/19 pm - continue holding due to rectal bleed 08/20. 2D echo with diffuse hypokinesis, LVEF 25%() Pulmonary: Continue mechanical ventilation, vent bundle, bronchodilators as needed. Continue CPAP trials DuoNeb treatments every 6 hours scheduled every 2 hours when necessary GI/liver: Continue PEG feeds with Glucerna @ 30cc/hr. Advance to goal. Zofran for nausea Renal/: Given Lasix 80 mg IV stat on 08/20 for pulmonary edema. Strict intake output Monitor and replete electrolytes follow BUN creatinine. Willl continue lasix to maintain even to slightly negative fluid balance Endocrine: SSI for glycemic control Heme: Transfused 1 unit PRBC on 08/20. Follow CBC. Being followed by hematology. Transfused 1 unit PRBCs 08/20 in view of acute IA to bring hemoglobin closer to 9 g percent ID: On Cefepime for UTI. Urine culture with Pseudomonas recently. Repeat cultures sent. MSK: Status post BKA Obtain venous Doppler ultrasound bilateral extremity Prophylaxis: PPI/SCDs. Holding anticoagulation with Eliquis due to rectal bleeding on 08/20. Clear with GI prior to starting subcutaneous heparin. Lines: Left femoral central venous catheter, left femoral arterial line placed on 08/20 Prognosis appears extremely poor. Condition critical. Dispo: DCF assigned as decision maker for patient, palliative care team meeting scheduled for 08/25/16 with DCF bilingual case manager for discussion of goals of care. Discussed with family medicine service, Discussed with ICU nursing staff. Level 3 Physician Quin Hodges MD Aug 25, 2016 16:39
[2016-08-25] MEDS: ATORVASTATIN 80 MG TAB PO SCH (20:24)
[2016-08-25] MEDS: MIRTAZAPINE 15 MG TAB PO SCH (20:25)
[2016-08-26] VITALS (17 sets, daily range): BP systolic 103–155; BP diastolic 71–98; PULSE 73–112; RESP 16–19; TEMP 97.2–99.3; O2SAT 94–100
[2016-08-26] MEDS: PANTOPRAZOLE SODIUM 40 MG VIAL IV PUSH SCH ×2 (00:30→12:15)
[2016-08-26] MEDS: RESP: ALBUTEROL 2.5 MG/IPRATROPIUM 0.5 MG NEB (SCH) NEB ×4 (03:44→19:41)
[2016-08-26] MEDS: FREE WATER G-TUBE SCH ×6 (04:00→20:00)
[2016-08-26 05:59] LABS: HEMATOCRIT 27.6 % (39.0-51.0); MEAN CELL VOLUME 81.8 FL (80.0-100.0); MEAN CORPUSCULAR HEMOGLOBIN 27.2 PG (27.0-34.0); MEAN CORPUSCULAR HGB CONC 33.3 % (32.0-36.0); PLATELET COUNT 287 TH/MM3 (150-450); RED BLOOD COUNT 3.38 MIL/MM3 (4.50-5.90); RED CELL DISTRIBUTION WIDTH 16.7 % (11.6-17.2); REVIEW FLAG FINAL; WHITE BLOOD COUNT 12.7 TH/MM3 (4.0-11.0)
[2016-08-26 06:16] LABS: BICARBONATE 24.9 MEQ/L (21.0-32.0); MAGNESIUM 1.6 MG/DL (1.5-2.5); POTASSIUM 3.2 MEQ/L (3.5-5.1)
[2016-08-26] MEDS: INSULIN ASPART SUPPLEMENTAL SCALE SQ SCH ×4 (07:00→21:00)
[2016-08-26] MEDS: FERROUS SULFATE 325 MG (65 MG ELEMENTAL IRON) TAB PO SCH (08:00)
[2016-08-26] MEDS: COLLAGENASE OINT 30 GM TUBE TOPICAL SCH (09:00)
--- NOTE | 2016-08-26 09:06 | HHI.FPPN ---
Subjective Remarks Remains intubated, not sedated. Case discussed with Dr. Douglas. Patient is responding appropriately to commands. Objective Vitals Vital Signs Date Time Temp Pulse Resp B/P Pulse Ox O2 Delivery O2 Flow Rate FiO2 08/26/16 06:00 73 08/26/16 04:00 75 08/26/16 04:00 98.9 75 16 155/75 100 08/26/16 03:40 97 40 08/26/16 02:00 95 08/26/16 00:56 100 40 08/26/16 00:00 96 08/26/16 00:00 98.9 97 16 142/98 100 08/25/16 22:00 94 08/25/16 20:31 100 40 08/25/16 20:00 99.8 100 18 134/99 100 08/25/16 20:00 89 08/25/16 16:49 100 40 08/25/16 16:00 98.7 97 16 114/69 100 08/25/16 12:13 40 08/25/16 12:10 100 40 08/25/16 12:00 98.0 86 16 118/86 100 I/O 08/25/16 08/25/16 08/25/16 08/26/16 08/26/16 08/26/16 07:00 15:00 23:00 07:00 15:00 23:00 Intake Total 325 ml 100 ml 121 ml Output Total 1000 ml 950 ml 1600 ml 300 ml Balance -675 ml -850 ml -1479 ml -300 ml IV Total 100 ml 121 ml Tube Feeding 25 ml 0 ml Other 300 ml 0 ml Output Urine Total 1000 ml 950 ml 1600 ml 300 ml Gastric Drainage Total 0 ml # Bowel Movements 0 0 0 Result Diagram: 08/26/16 0500 08/26/16 0500 Objective Remarks GENERAL: male laying in bed orally intubated. SKIN: Warm and dry. Appears pale. HEENT: Tracks eyes. PERRLA. HEART: RRR no m/r/g. LUNGS: Mechanically ventilated. Good air movement. Anterior lung sounds coarse. ABDOMEN: Hypoactive bowel sounds. Soft, NT, ND. PEG tube in place. EXTREMITIES: R BKA. LLE without edema. Date of Removal: Aug 23, 2016 Line: Central Venous Catheter Side: Left Location: Femoral A/P Assessment and Plan 61 yo M, hx of prolonged hospital stay from September 2015 - July 18, 2016, having returned to the hospital on July 22 for fall. Admitted for AMS, rhabdomyolysis , dehydration, hypernatremia and anemia. PEG tube has been placed due to decreased PO intake and dehydration. Patient is currently in critical condition due to ischemic cardiac event. Cardiology has been consulted, no interventions anticipated until pt shows clinical improvement. Discharge Planning Unclear discharge timetable as patient in critical condition and DCF making medical decisions for the patient. Palliative care meeting with DCF did not occur on 08/25 as DCF has not responded to calls. Problem List: (1) Myocardial infarction acute Status: Acute Plan: Cardiac arrest s/p CPR with ROSC. Troponin as high as >40 and EKG with LBBB. Cardiology consulted and patient in too critical condition for intervention at this time. - 2D echo with diffuse hypokinesis and LVEF 25% - Continue baby ASA - Eliquis held secondary to rectal bleeding -Pressor support not currently needed. (2) Respiratory failure Status: Acute Plan: Patient intubated, awake, and alert. Vent management per critical care. - CXR 08/20 showed low lung volumes with bibasilar consolidation (3) Rectal bleeding Status: Acute Plan: Pt with anemia and acute rectal bleeding was noted. -GI consulted, appreciate recommendations * Patient is currently not stable for EGD/colonoscopy * Protonix 40 mg IV BID * Monitor for active GI bleed and H&H * Transfuse as needed (4) UTI (urinary tract infection) Status: Acute Plan: Repeat UA on 08/18 significant for hazy appearance, 30 protein, small occult blood, positive nitrites, large leukocyte esterase, many white blood cell clumps, moderate bacteria. Urine culture: Pseudomonas aeruginosa, sensitive to cefepime Continue Cefepime 1gm BID (08/19-) x anticipate duration of 10 days (5) Decubitus ulcer, stage 3 Status: Acute Plan: Patient with large decubitus ulcer over lower back; appears to be healing with good granulation tissue -Wound care consulted, appreciate recommendations * Collagenase ointment to be applied daily * Wound dressing changes daily per RN (6) Anemia Status: Chronic Plan: Likely secondary to chronic disease with GI bleeding. Hematolgoy consulted and patient on Procrit -GI consult -EGD scheduled on 08/25 (consent pending DCF); not performed as of yet -Continue iron supplementation -Continue Protonix -FOBT positive. GI following and patient had EGD/colonoscopy performed 08/05 showing internal and external hemorrhoids. However, limited due to poor bowel prep and currently not a candidate for repeat - Monitor H&H (7) Ftcii-ng-fymupee kidney injury Status: Acute Plan: Currently stable Nephrology consulted -Avoid nephrotoxic meds -Closely monitor I&O -Renal US: unremarkable (8) Altered mental status Status: Chronic Plan: Pt likely with recent anoxic brain injury due to decreased brain perfusion secondary to cardiac arrest. He has had multiple ischemic strokes in the past including a lacunar infarct on 10/20/15. At patient's baseline he is able to communicate with yes or no answers. He has also been able to express himself using complete sentences. -CT head 08/21 with no acute disease -EEG showing changes with diffuse encephalopathy (9) Chronic systolic (congestive) heart failure Status: Chronic Plan: Patient with hx of CHF, EF 35% from September 2015. -Echo from 08/20 significant for EF of 20-25% with diffuse hypokinesis. -Lasix 40 mg IV twice a day (10) Coronary artery disease Status: Chronic Plan: Continue statin. Antihypertensives held in light of hypotensive shock. Eliquis held secondary to rectal bleeding. (11) HTN (hypertension) Status: Chronic Plan: Holding home meds in light of hypotension requiring pressors. (12) Low vitamin D level Status: Acute Plan: Vitamin D low at 11.6. -Cholecalciferol 2000 units po Daily -Calcium carbonate 500 mg BID (13) Diabetes mellitus Status: Chronic Plan: A1C 6.9 on 11/25/15, not on oral medications as an outpatient -Continue to monitor -Low dose SSI (14) Nutrition, metabolism, and development symptoms Status: Acute Plan: - Fluids: Free water via PEG - Electrolytes: Monitor and replete as needed - Nutrition: Glucerna tube feeds with goal 1.5 at 60 ml/hr - DVT prophylaxis: chemical anticoagulation C/I 2/2 rectal bleeding - GI prophylaxis: on PPI dw Dr. Austin Problem Qualifiers (1) Anemia: Qualified Code: D50.8 - Other iron deficiency anemia (2) Altered mental status: Qualified Code: R41.82 - Altered mental status, unspecified altered mental status type (3) Coronary artery disease: Qualified Code: I25.10 - Coronary artery disease involving eagle heart without angina pectoris, unspecified vessel or lesion type (4) HTN (hypertension): Qualified Code: I10 - Essential hypertension (5) Diabetes mellitus: Qualified Code: E11.51 - Type 2 diabetes mellitus with diabetic peripheral angiopathy without gangrene, without long-term current use of insulin Balbir Nguyễn MD R2 Aug 26, 2016 09:06
[2016-08-26] MEDS: CALCIUM CARBONATE 500 MG CHEWABLE TAB CHEW SCH ×2 (09:36→21:43)
[2016-08-26] MEDS: FUROSEMIDE 40 MG/4 ML VIAL IV PUSH SCH ×2 (09:37→17:37)
[2016-08-26] MEDS: ASPIRIN 81 MG CHEW TAB G-TUBE SCH (09:37)
[2016-08-26] MEDS: CHOLECALCIFEROL (VIT D3) 1000 UNIT TAB PO SCH (09:37)
[2016-08-26] MEDS: levETIRAcetam INJ 500 MG in SODIUM CHLORIDE 0.9% INJ 100 ML IV SCH ×2 (09:37→21:43)
[2016-08-26] MEDS: SODIUM CHLORIDE 0.9% FLUSH 10 ML FLUSH IV FLUSH SCH ×2 (09:38→21:44)
--- NOTE | 2016-08-26 10:00 | HHI.HCPN ---
Spoke with Yisel Nation [facility] hand worker re: patient status and Goals. Contact numbers: [phone] (work cell) [phone] (personal cell) - available 24 hr a day. 1) Advised of need for consent for Endoscopy - consent can be attained by phone or in person. Advised the reason for endoscopy was to investigate bleeding 2) Advised of request for DNR status vs current status of FULL CODE - she responded per her Supv, [facility] is unable to advise on anything that would end life. Explained the difference that DNR supports a "natural " without CPR and intubation and that this is not a reuet for withdrawal of life support. She reiterated that DCF is unable to support DNR 3) Discussed option of hospice with comfort measures vs aggressive measures. Advised of pt's PMH including 4 cardiac events resulting in codes since this admission. She would consent to hospice evaluation. Explained however again the nature of hospice for comfort measures, not life saving measures and DNR status. Cecy Sanchez Aug 26, 2016 10:00
--- NOTE | 2016-08-26 12:06 | RADRPT ---
EXAM DATE/TIME: 08/26/2016 10:12 [facility] COMPARISON: US LEG BILATERAL VENOUS DOPPLER, February 21, 2013, 13:40. INDICATIONS : Bilateral leg swelling. MEDICAL HISTORY : Myocardial infarction. Hypercholesterolemia. Hypertension. Cerebrovascular accident. Congestive heart failure. Coronary artery disease. Renal calculi. Anticoagulant therapy. Diabetes. SURGICAL HISTORY : CABGCoronary artery stent. Right below the knee amputation. ENCOUNTER: Initial ACUITY: 2 day PAIN SCORE: Non-responsive LOCATION: Bilateral legs. TECHNIQUE: Venous ultrasound of the left and right leg was performed from the inguinal ligament to the proximal calf. Real-time, color Doppler and spectral tracing, compression and augmentation techniques were us ed. FINDINGS: RIGHT LEG: There is normal compressibility of the deep venous system from the inguinal region to the proximal ca lf. No echogenic clot is seen in the lumen of the common femoral, femoral, popliteal, and posterior tibial veins. There is a normal response of the venous system to proximal and distal augmentation an d respiration. LEFT LEG: There is normal compressibility of the deep venous system from the inguinal region to the proximal ca lf. No echogenic clot is seen in the lumen of the common femoral, femoral, popliteal, and posterior tibial veins. There is a normal response of the venous system to proximal and distal augmentation an d respiration. CONCLUSION: Negative exam with no evidence of deep venous thrombosis. Thiago Heredia MD on August 26, 2016 at 12:03 Board Certified Radiologist. This report was verified electronically.
--- NOTE | 2016-08-26 12:14 | RADRPT ---
EXAM DATE/TIME: 08/26/2016 10:34 [facility] COMPARISON: No previous studies available for comparison. INDICATIONS : Bilateral arm swelling. MEDICAL HISTORY : Myocardial infarction. Hypercholesterolemia. Hypertension. Cerebrovascular accident. Congestive heart failure. Coronary artery disease. Renal calculi. Anticoagulant therapy. Diabetes. SURGICAL HISTORY : CABGCoronary artery stent. Right below the knee amputation. ENCOUNTER: Initial ACUITY: 2 day PAIN SCORE: Non-responsive LOCATION: Bilateral arms. FINDINGS: RIGHT UPPER EXTREMITY: There is spontaneous flow documented in the brachial, basilic, cephalic, axillary, and subclavian vei ns. The vessels are compressible and augmentation response is documented. No filling defects are se en. The flow is phasic with respiration. Direction of flow in the jugular vein is caudal. LEFT UPPER EXTREMITY: Thrombus is noted in the left brachial vein which is occlusive and nonocclusive in regions. There is superficial venous thrombosis noted in the left mid and distal basilic veins as well as the left ceph alic vein. The subclavian, jugular and axillary veins are patent and compressible. CONCLUSION: 1. Deep venous thrombosis in the left brachial vein. 2. Superficial venous thrombosis in the basilic and cephalic veins. Thiago Heredia MD on August 26, 2016 at 12:10 Board Certified Radiologist. This report was verified electronically.
[2016-08-26] MEDS: CEFEPIME INJ 1,000 MG in SODIUM CHLORIDE 0.9% INJ 100 ML IV SCH (13:36)
[2016-08-26] MEDS ORDERED: PROPOFOL 200 MG/20 ML AMP IV ONE (15:55)
[2016-08-26] MEDS ORDERED: MIDAZOLAM HCL 2 MG/2 ML VIAL ONE (16:05)
--- NOTE | 2016-08-26 16:14 | HHI.CCPN ---
Subjective Remarks/Hospital Course 08/20: 61-year-old male admitted on 07/25/2016 by family medicine service after he was found at home by DCF not being able to take care of himself lying on the ground in his own feces. Previously patient was in the hospital from October 15, 2015 to July 18, 2016. During this hospitalization he was noted to be anemic secondary to anemia of chronic disease as well as possible myelosuppression for which she received blood transfusions and Procrit and was evaluated by hematology. He also has a PEG tube placed during this admission for maintaining his nutritional status. His neurologic status fluctuates and he goes from conversing to being encephalopathic. He has had multiple strokes and does have coronary artery disease with previous CABG and stenting. He is on Eliquis for anticoagulation and does have an ischemic cardiomyopathy as well as diabetes mellitus. He was recently started on Rocephin for a UTI. This morning patient was noted to have hypotension and some altered mental status. He was given fluid bolus and a chest x-ray was done earlier. Subsequently around 7 AM CODE BLUE cardiac arrest code was called for which I responded to the floor. At the time of my arrival patient was being ventilated with bag mask ventilation. He initially had agonal respirations. He was noted to be in asystole on the monitor subsequently so CPR/ACLS protocol was initiated. Patient had return of circulation following about 15 minutes of ACLS protocol and was noted to have a left bundle branch block which appeared old. He was started on an epinephrine drip for hypotension and transported to [facility]. Shortly following his arrival to the unit he underwent another episode of bradycardia and subsequently lost his pulse. CPR/ACLS protocol was initiated and he had return of spontaneous circulation following about 5 minutes of ACLS. He had a central line and a femoral arterial line placed emergently by myself. Stat labs were sent as well as ABG. Patient was continued on mechanical ventilation. He subsequently had 2 further episodes of cardiac arrest from which he was successfully resuscitated. History was obtained by reviewing records and discussion with family medicine team and floor as well as floor nursing staff. 08/21: Remains sedated, orally intubated on mechanical ventilation. Sedation held this morning to assess neurologic status. On dopamine 5 mics per KG per minute. Off other pressors at this time. Troponin greater than 40 this morning. On Protonix drip which was started yesterday for some rectal bleeding which is now stopped. EF 25% on 2-D echo done yesterday. Eliquis continues to be on hold. On aspirin. 08/22: Dopamine 2.5mcgs weaned off this morning. The patient appears hemodynamically stable, normotensive. 08/23: Tmax 99.7. Dopamine remained off overnight, patient remains normotensive. Overnight the patient began to follow commands moving his extremities 4. CPAP trials to begin today. Physical therapy order for functional maintenance. Leukocytosis trending down. Will discontinue femoral central line and arterial line today. 08/24: Afebrile. CPAP was initiated today, the pain patient continues on CPAP since 8:30 this morning 10/5/FiO2 of 30%. He remains hemodynamically stable at this point, we'll reconsult GI regarding possible upper endoscopy and colonoscopy, defer recommendations regarding heparin. 08/25: Afebrile. The patient continues on CPAP trials, planned meeting with palliative care and DCF unsuccessful today rescheduling will be attempted. The patient is tracking and following commands. 08/26: Tmax 99 .8. The patient underwent venous Doppler ultrasound of extremities yesterday, negative results. The patient scheduled to undergo EGD today secondary to previous GI bleed. The patient was placed out of bed into recliner chair today. Plan for hospice consult palliative care team with conversation with DCF. Objective Vital Signs Date Time Temp Pulse Resp B/P Pulse Ox O2 Delivery O2 Flow Rate FiO2 08/26/16 14:00 95 08/26/16 12:00 40 08/26/16 12:00 97.8 19 103/77 100 Intake and Output 08/25/16 08/25/16 08/26/16 08:00 16:00 00:00 Intake Total 325 ml 100 ml 121 ml Output Total 1000 ml 950 ml 1600 ml Balance -675 ml -850 ml -1479 ml Result Diagram: 08/26/16 0500 08/26/16 0500 Imaging Last 24 hours Impressions Chest X-Ray 08/20/16 0500 Signed Impressions: Service Date/Time: Saturday, August 20, 2016 05:06 - CONCLUSION: Low lung volumes with bibasilar consolidation. Consolidation could relate to atelectasis or infiltrates. Daryl Prabhakar Jr., MD Chest X-Ray 08/20/16 0000 Signed Impressions: Service Date/Time: Saturday, August 20, 2016 08:15 - CONCLUSION: 1. ET tube in good position. 2. Mild diffuse increased interstitial markings likely representing edema. Camacho Santana MD Last Impressions Chest X-Ray 08/20/16 0500 Signed Impressions: Service Date/Time: Saturday, August 20, 2016 05:06 - CONCLUSION: Low lung volumes with bibasilar consolidation. Consolidation could relate to atelectasis or infiltrates. Daryl Prabhakar Jr., MD Bone Osseous Survey 07/31/16 0000 Signed Impressions: Service Date/Time: Sunday, July 31, 2016 16:09 - CONCLUSION: Unremarkable bone survey. Incidental note made of median sternotomy. Multiple gallstones. Richard Gerber MD Head CT 07/25/16 1644 Signed Impressions: Service Date/Time: Monday, July 25, 2016 17:19 - CONCLUSION: 1. Lacunar infarcts bilaterally, worse on the left. 2. Negative for an acute process. Didier Clay MD FACR Renal Ultrasound 07/25/16 0000 Signed Impressions: Service Date/Time: Monday, July 25, 2016 20:55 - CONCLUSION: 1. Tiny nonobstructing calcified left renal calculi. 2. No hydronephrosis or solid renal mass. Efren Cleaning MD Objective Remarks HEENT/ Neuro: Alert and responsive, moving extremities 4. Localizing/ withdraws , orally intubated. Pallor present, no icterus, tongue/ mucosa moist Neck: No JVD, trachea midline Chest/Pulm: on mech vent, good air entry bilaterally, clear to auscultation bilaterally, no wheezing. CVS: S1-S2 regular, no murmur, rubs or gallops GI/abdomen: soft, nontender, bowel sounds sluggish. PEG tube in place Extremities: warm bilaterally, trace bilateral edema upper and lower extremitities. Procedures EGD Urinary Catheter: Yes Diehl insert reason: Measure Accurate Output Date of Removal: Aug 23, 2016 Line: Central Venous Catheter Side: Left Location: Femoral A/P Assessment and Plan 61-year-old male with: Cardiac arrest status post CPR Acute respiratory failure on mechanical ventilation Pulmonary edema Shock(resolved) Encephalopathy suspected anoxic brain damage in the setting of poor baseline neurologic function: Elevated troponin with acute CA Ischemic cardiomyopathy History of CHF with EF 35% PAT/ CKD History of strokes Anemia of chronic disease Diabetes mellitus Myelosuppression Monoclonal gammopathy Sacral decubitus ulcer Status post PEG tube placement UTI Possible sepsis BKA right lower extremity Plan: Neuro: Currently all sedation, monitor neuro status. Patient following some commands moving extremities 4. Possible anoxic brain injury secondary to multiple cardiac arrests History of multiple strokes . Head CT negative for bleed (08/21) was on Eliquis for prior strokes however currently on hold due to rectal bleeding. Restart anticoagulation when okay with GI. Currently still on hold Cardiovascular: Off epinephrine/Levophed. Dopamine discontinued 08/22. EKG with left bundle branch block. Troponin greater than 40 noted. Cardiology: Dr. Damián Arias not planning any intervention at this time due to poor neurologic status and elevated creatinine. Continue Aspirin. Eliquis last dose on 08/19 pm - continue holding due to rectal bleed 08/20. 2D echo with diffuse hypokinesis, LVEF 25%() Pulmonary: Continue mechanical ventilation, vent bundle, bronchodilators as needed. Continue CPAP trials DuoNeb treatments every 6 hours scheduled every 2 hours when necessary GI/liver: Continue PEG feeds with Glucerna @ 30cc/hr. Advance to goal. Currently on hold 08/26 EGD planned for today Zofran for nausea Renal/: Given Lasix 80 mg IV stat on 08/20 for pulmonary edema. Strict intake output Monitor and replete electrolytes follow BUN creatinine. Willcontinue lasix to maintain even to slightly negative fluid balance Endocrine: SSI for glycemic control Heme: Transfused 1 unit PRBC on 08/20. Follow CBC. Being followed by hematology. Transfused 1 unit PRBCs 08/20 in view of acute CA to bring hemoglobin closer to 9 g percent ID: On Cefepime for UTI. Urine culture with Pseudomonas recently. Repeat cultures sent. MSK: Status post BKA 08/26 venous Doppler ultrasound bilateral upper and lower extremities negative Prophylaxis: PPI/SCDs. Holding anticoagulation with Eliquis due to rectal bleeding on 08/20. Clear with GI prior to starting subcutaneous heparin. Lines: Left femoral central venous catheter, left femoral arterial line placed on 08/20-08/24 Prognosis appears extremely poor. Dispo: DCF assigned as decision maker for patient, palliative care team meeting via telephone 08/26/16, plan for hospice consult. Discussed with family medicine service, Discussed with ICU nursing staff. Level 3 Physician Quin Hodges MD Aug 26, 2016 16:14
[2016-08-26] MEDS ORDERED: SODIUM PHOSPHATE INJ 15 MMOL in SODIUM CHLORIDE 0.9% INJ 150 ML IV ONE (16:15)
--- NOTE | 2016-08-26 16:26 | PD.PROCEDR ---
GI Procedure REFERRING PHYSICIAN Misael PENN PERFORMED EGD INDICATION FOR PROCEDURE GI bleed anemia PROCEDURE: The procedure, risks and benefits were discussed with Mr. Amado and informed consent was obtained. Anesthesia sedated him with Diprivan. He was placed in the left lateral decubitus position. EGD: The Pentax videoscope was introduced through the oropharynx and advanced to the second portion of the duodenum under direct visualization. Retroflexion was performed in the stomach. FINDINGS: Esophagus: Normal Stomach: normal, PEG tube in place Duodenum: Normal ESTIMATED BLOOD LOSS: none SPECIMENS REMOVED: none COMPLICATIONS: none IMPRESSION: normal EGD PLAN: colonoscopy when more stable or if actively bleeding continue with present supportive care monitor labs Sherman Gómez MD Aug 26, 2016 16:26
[2016-08-26] MEDS ORDERED: POTASSIUM CHLOR 20 MEQ PREMIX 100 ML IV ONE (16:30)
[2016-08-26] MEDS: ATORVASTATIN 80 MG TAB PO SCH (21:00)
[2016-08-26] MEDS: MIRTAZAPINE 15 MG TAB PO SCH (21:43)
[2016-08-27] VITALS (17 sets, daily range): BP systolic 122–151; BP diastolic 80–92; PULSE 90–102; RESP 16–26; TEMP 97.9–98.9; O2SAT 100
[2016-08-27] MEDS: PANTOPRAZOLE SODIUM 40 MG VIAL IV PUSH SCH ×3 (00:26→23:19)
[2016-08-27] MEDS: RESP: ALBUTEROL 2.5 MG/IPRATROPIUM 0.5 MG NEB (SCH) NEB ×4 (03:29→21:17)
[2016-08-27] MEDS: FREE WATER G-TUBE SCH ×6 (04:00→20:00)
[2016-08-27] MEDS: INSULIN ASPART SUPPLEMENTAL SCALE SQ SCH ×4 (07:00→21:00)
--- NOTE | 2016-08-27 08:08 | HHI.FPPN ---
Subjective Remarks Pt seen and examined this morning. Currently on CPAP vent setting. Per nursing, intermittently responding to commands. Seems to able yes/no questions but then answers aren't always congruent. Able to squeeze my fingers on command this morning. Opens eyes and nods yes/no but not consistently. Palliative care discussed case with DCF who could not change his code status but apparently agreed to hospice care. Objective Vitals Vital Signs Date Time Temp Pulse Resp B/P Pulse Ox O2 Delivery O2 Flow Rate FiO2 08/27/16 06:00 97 08/27/16 04:00 97.9 94 16 139/92 100 08/27/16 04:00 92 08/27/16 04:00 40 08/27/16 03:29 100 40 08/27/16 02:00 93 08/27/16 01:04 100 40 08/27/16 00:00 98.0 92 16 143/91 100 08/27/16 00:00 40 08/27/16 00:00 90 08/26/16 22:00 90 08/26/16 20:00 40 08/26/16 20:00 90 08/26/16 20:00 97.9 89 16 142/87 100 08/26/16 19:41 100 40 08/26/16 18:00 86 08/26/16 16:24 100 40 08/26/16 16:00 40 08/26/16 16:00 84 08/26/16 16:00 97.2 84 16 125/74 100 08/26/16 15:15 40 08/26/16 14:00 95 08/26/16 12:00 103 08/26/16 12:00 40 08/26/16 12:00 97.8 103 19 103/77 100 08/26/16 10:00 112 08/26/16 09:26 100 40 08/26/16 09:25 40 I/O 08/26/16 08/26/16 08/26/16 08/27/16 08/27/16 08/27/16 07:00 15:00 23:00 07:00 15:00 23:00 Intake Total 698 ml 242 ml 175 ml Output Total 300 ml 250 ml 650 ml 550 ml Balance -300 ml 448 ml -408 ml -375 ml IV Total 98 ml 242 ml 175 ml Tube Feeding 0 ml Other 600 ml Output Urine Total 300 ml 250 ml 650 ml 550 ml # Bowel Movements 0 0 Result Diagram: 08/26/16 0500 08/26/16 0500 Objective Remarks GENERAL: male laying in bed orally intubated. SKIN: Warm and dry. Appears pale. HEENT: Tracks eyes. PERRLA. HEART: RRR no m/r/g. LUNGS: Good air movement. Anterior lung sounds coarse. ABDOMEN: Hypoactive bowel sounds. Soft, NT, ND. PEG tube in place. EXTREMITIES: R BKA. LLE without edema. NEURO: Responding to UE commands. Date of Removal: Aug 23, 2016 Line: Central Venous Catheter Side: Left Location: Femoral A/P Assessment and Plan 61 yo M, hx of prolonged hospital stay from September 2015 - July 18, 2016, having returned to the hospital on July 22 for fall. Admitted for AMS, rhabdomyolysis , dehydration, hypernatremia and anemia. PEG tube has been placed due to decreased PO intake and dehydration. Patient is currently in critical condition due to ischemic cardiac event. Cardiology has been consulted, no interventions anticipated until pt shows clinical improvement. DCF making decisions for patient and palliative care and case management working with communication. Code status cannot be changed per DCF but agreeable to hospice. Discharge Planning Unclear discharge timetable as patient in critical condition and DCF making medical decisions for the patient. Palliative care spoke with DCF yesterday who seemed to agree to hospice but could not change code status so patient remains FULL code. Problem List: (1) Myocardial infarction acute Status: Acute Plan: Cardiac arrest s/p CPR with ROSC on 08/20. Troponin as high as >40 and EKG with LBBB. Cardiology consulted and patient in too critical condition for intervention at this time. - 2D echo with diffuse hypokinesis and LVEF 25% - Continue baby ASA - Eliquis held secondary to rectal bleeding (2) Respiratory failure Status: Acute Plan: Patient intubated, awake, and alert. Vent management and CPAP trials per critical care. - CXR 08/20 showed low lung volumes with bibasilar consolidation (3) Rectal bleeding Status: Acute Plan: Pt with anemia and acute rectal bleeding was noted. - GI consulted. S/P normal EGD yesterday - Protonix 40 mg IV BID - Monitor for active bleeding - H&H stable. Continue to monitor (4) UTI (urinary tract infection) Status: Acute Plan: Repeat UA on 08/18 significant for hazy appearance, 30 protein, small occult blood, positive nitrites, large leukocyte esterase, many white blood cell clumps, moderate bacteria. Urine culture: Pseudomonas aeruginosa, sensitive to cefepime Continue Cefepime 1gm BID (08/19-) x anticipate duration of 10 days (5) Decubitus ulcer, stage 3 Status: Acute Plan: Patient with large decubitus ulcer over lower back; appears to be healing with good granulation tissue -Wound care consulted, appreciate recommendations * Collagenase ointment to be applied daily * Wound dressing changes daily per RN (6) Anemia Status: Chronic Plan: Likely secondary to chronic disease with GI bleeding. Hematolgoy consulted and patient on Procrit - FOBT + and GI consulted; EGD done 08/26 and was normal - Continue iron supplementation - Continue Protonix - Monitor H&H (7) [id number] kidney injury Status: Acute Plan: Currently stable. - Nephrology consulted - Avoid nephrotoxic meds - Closely monitor I&O - Renal U/S unremarkable (8) Altered mental status Status: Chronic Plan: Pt likely with recent anoxic brain injury due to decreased brain perfusion secondary to cardiac arrest. He has had multiple ischemic strokes in the past including a lacunar infarct on 10/20/15. At patient's baseline he is able to communicate with yes or no answers. He has also been able to express himself using complete sentences. - CT head 08/21 with no acute disease - EEG showing changes with diffuse encephalopathy (9) Chronic systolic (congestive) heart failure Status: Chronic Plan: Patient with hx of CHF, EF 35% from September 2015. -Echo from 08/20 significant for EF of 20-25% with diffuse hypokinesis. -Lasix 40 mg IV twice a day (10) Coronary artery disease Status: Chronic Plan: Continue statin. Antihypertensives held in light of hypotensive shock. Eliquis held secondary to rectal bleeding. (11) HTN (hypertension) Status: Chronic Plan: Holding home meds in light of hypotension. (12) Low vitamin D level Status: Acute Plan: Vitamin D low at 11.6. -Cholecalciferol 2000 units po Daily -Calcium carbonate 500 mg BID (13) Diabetes mellitus Status: Chronic Plan: A1C 6.9 on 11/25/15, not on oral medications as an outpatient. - Continue to monitor - Low dose SSI (14) Nutrition, metabolism, and development symptoms Status: Acute Plan: - Fluids: Free water via PEG - Electrolytes: Monitor and replete as needed - Nutrition: Glucerna tube feeds with goal 1.5 at 60 ml/hr - DVT prophylaxis: chemical anticoagulation C/I 2/2 rectal bleeding - GI prophylaxis: on PPI dw Dr. Austin Problem Qualifiers (1) Anemia: Qualified Code: D50.8 - Other iron deficiency anemia (2) Altered mental status: Qualified Code: R41.82 - Altered mental status, unspecified altered mental status type (3) Coronary artery disease: Qualified Code: I25.10 - Coronary artery disease involving pala heart without angina pectoris, unspecified vessel or lesion type (4) HTN (hypertension): Qualified Code: I10 - Essential hypertension (5) Diabetes mellitus: Qualified Code: E11.51 - Type 2 diabetes mellitus with diabetic peripheral angiopathy without gangrene, without long-term current use of insulin Loida Dodson MD Aug 27, 2016 08:08
[2016-08-27] MEDS: levETIRAcetam INJ 500 MG in SODIUM CHLORIDE 0.9% INJ 100 ML IV SCH ×2 (09:14→20:37)
[2016-08-27] MEDS: FUROSEMIDE 40 MG/4 ML VIAL IV PUSH SCH ×2 (09:15→18:32)
[2016-08-27] MEDS: CHOLECALCIFEROL (VIT D3) 1000 UNIT TAB PO SCH (09:17)
[2016-08-27] MEDS: FERROUS SULFATE 325 MG (65 MG ELEMENTAL IRON) TAB PO SCH (09:17)
[2016-08-27] MEDS: CALCIUM CARBONATE 500 MG CHEWABLE TAB CHEW SCH ×2 (09:17→20:37)
[2016-08-27] MEDS: ASPIRIN 81 MG CHEW TAB G-TUBE SCH (09:17)
[2016-08-27] MEDS: SODIUM CHLORIDE 0.9% FLUSH 10 ML FLUSH IV FLUSH SCH ×2 (09:18→20:38)
[2016-08-27] MEDS: COLLAGENASE OINT 30 GM TUBE TOPICAL SCH (12:28)
[2016-08-27] MEDS: CEFEPIME INJ 1,000 MG in SODIUM CHLORIDE 0.9% INJ 100 ML IV SCH (14:27)
--- NOTE | 2016-08-27 15:52 | HHI.CCPN ---
Subjective Remarks/Hospital Course 08/20: 61-year-old male admitted on 07/25/2016 by family medicine service after he was found at home by DCF not being able to take care of himself lying on the ground in his own feces. Previously patient was in the hospital from October 15, 2015 to July 18, 2016. During this hospitalization he was noted to be anemic secondary to anemia of chronic disease as well as possible myelosuppression for which she received blood transfusions and Procrit and was evaluated by hematology. He also has a PEG tube placed during this admission for maintaining his nutritional status. His neurologic status fluctuates and he goes from conversing to being encephalopathic. He has had multiple strokes and does have coronary artery disease with previous CABG and stenting. He is on Eliquis for anticoagulation and does have an ischemic cardiomyopathy as well as diabetes mellitus. He was recently started on Rocephin for a UTI. This morning patient was noted to have hypotension and some altered mental status. He was given fluid bolus and a chest x-ray was done earlier. Subsequently around 7 AM CODE BLUE cardiac arrest code was called for which I responded to the floor. At the time of my arrival patient was being ventilated with bag mask ventilation. He initially had agonal respirations. He was noted to be in asystole on the monitor subsequently so CPR/ACLS protocol was initiated. Patient had return of circulation following about 15 minutes of ACLS protocol and was noted to have a left bundle branch block which appeared old. He was started on an epinephrine drip for hypotension and transported to [facility]. Shortly following his arrival to the unit he underwent another episode of bradycardia and subsequently lost his pulse. CPR/ACLS protocol was initiated and he had return of spontaneous circulation following about 5 minutes of ACLS. He had a central line and a femoral arterial line placed emergently by myself. Stat labs were sent as well as ABG. Patient was continued on mechanical ventilation. He subsequently had 2 further episodes of cardiac arrest from which he was successfully resuscitated. History was obtained by reviewing records and discussion with family medicine team and floor as well as floor nursing staff. 08/21: Remains sedated, orally intubated on mechanical ventilation. Sedation held this morning to assess neurologic status. On dopamine 5 mics per KG per minute. Off other pressors at this time. Troponin greater than 40 this morning. On Protonix drip which was started yesterday for some rectal bleeding which is now stopped. EF 25% on 2-D echo done yesterday. Eliquis continues to be on hold. On aspirin. 08/22: Dopamine 2.5mcgs weaned off this morning. The patient appears hemodynamically stable, normotensive. 08/23: Tmax 99.7. Dopamine remained off overnight, patient remains normotensive. Overnight the patient began to follow commands moving his extremities 4. CPAP trials to begin today. Physical therapy order for functional maintenance. Leukocytosis trending down. Will discontinue femoral central line and arterial line today. 08/24: Afebrile. CPAP was initiated today, the pain patient continues on CPAP since 8:30 this morning 10/5/FiO2 of 30%. He remains hemodynamically stable at this point, we'll reconsult GI regarding possible upper endoscopy and colonoscopy, defer recommendations regarding heparin. 08/25: Afebrile. The patient continues on CPAP trials, planned meeting with palliative care and DCF unsuccessful today rescheduling will be attempted. The patient is tracking and following commands. 08/26: Tmax 99 .8. The patient underwent venous Doppler ultrasound of extremities yesterday, negative results. The patient scheduled to undergo EGD today secondary to previous GI bleed. The patient was placed out of bed into recliner chair today. Plan for hospice consult palliative care team with conversation with DCF. 08/27: Patient continues to be maintained on CPAP trials, with discontinuation. Plan for SBT parameters in the a.m., and a trial of extubation. The patient's interacting nodding head to yes and no questions appropriately. Patient normotensive. Hospice consult initiated by family medicine. Objective Vital Signs Date Time Temp Pulse Resp B/P Pulse Ox O2 Delivery O2 Flow Rate FiO2 08/27/16 14:09 98 08/27/16 12:37 100 40 08/27/16 12:00 98.9 19 151/89 Intake and Output 08/26/16 08/26/16 08/27/16 08:00 16:00 00:00 Intake Total 698 ml 242 ml Output Total 300 ml 250 ml 650 ml Balance -300 ml 448 ml -408 ml Result Diagram: 08/26/16 0500 08/26/16 0500 Imaging Last 24 hours Impressions Chest X-Ray 08/20/16 0500 Signed Impressions: Service Date/Time: Saturday, August 20, 2016 05:06 - CONCLUSION: Low lung volumes with bibasilar consolidation. Consolidation could relate to atelectasis or infiltrates. Daryl Prabhakar Jr., MD Chest X-Ray 08/20/16 0000 Signed Impressions: Service Date/Time: Saturday, August 20, 2016 08:15 - CONCLUSION: 1. ET tube in good position. 2. Mild diffuse increased interstitial markings likely representing edema. Camacho Santana MD Last Impressions Chest X-Ray 08/20/16 0500 Signed Impressions: Service Date/Time: Saturday, August 20, 2016 05:06 - CONCLUSION: Low lung volumes with bibasilar consolidation. Consolidation could relate to atelectasis or infiltrates. Daryl Prabhakar Jr., MD Bone Osseous Survey 07/31/16 0000 Signed Impressions: Service Date/Time: Sunday, July 31, 2016 16:09 - CONCLUSION: Unremarkable bone survey. Incidental note made of median sternotomy. Multiple gallstones. Richard Gerber MD Head CT 07/25/16 1644 Signed Impressions: Service Date/Time: Monday, July 25, 2016 17:19 - CONCLUSION: 1. Lacunar infarcts bilaterally, worse on the left. 2. Negative for an acute process. Didier Clay MD FACR Renal Ultrasound 07/25/16 0000 Signed Impressions: Service Date/Time: Monday, July 25, 2016 20:55 - CONCLUSION: 1. Tiny nonobstructing calcified left renal calculi. 2. No hydronephrosis or solid renal mass. Efren Cleaning MD Objective Remarks HEENT/ Neuro: Alert and responsive, moving extremities 4. Localizing/ withdraws , orally intubated. Pallor present, no icterus, tongue/ mucosa moist Neck: No JVD, trachea midline Chest/Pulm: on mech vent, good air entry bilaterally, clear to auscultation bilaterally, no wheezing. CVS: S1-S2 regular, no murmur, rubs or gallops GI/abdomen: soft, nontender, bowel sounds sluggish. PEG tube in place Extremities: warm bilaterally, trace bilateral edema upper and lower extremitities. Procedures EGD Date of Removal: Aug 23, 2016 Line: Central Venous Catheter Side: Left Location: Femoral A/P Assessment and Plan 61-year-old male with: Cardiac arrest status post CPR Acute respiratory failure on mechanical ventilation Pulmonary edema Shock(resolved) Encephalopathy suspected anoxic brain damage in the setting of poor baseline neurologic function: Elevated troponin with acute [place] Ischemic cardiomyopathy History of CHF with EF 35% PAT/ CKD History of strokes Anemia of chronic disease Diabetes mellitus Myelosuppression Monoclonal gammopathy Sacral decubitus ulcer Status post PEG tube placement UTI Possible sepsis BKA right lower extremity Plan: Neuro: Currently all sedation, monitor neuro status. Patient following some commands moving extremities 4. Interacting to yes and no questions History of multiple strokes . Head CT negative for bleed (08/21) was on Eliquis for prior strokes however currently on hold due to rectal bleeding. Restart anticoagulation when okay with GI. Currently still on hold Cardiovascular: Off epinephrine/Levophed. Dopamine discontinued 08/22. EKG with left bundle branch block. Troponin greater than 40 noted. Cardiology: Dr. Damián Arias not planning any intervention at this time due to poor neurologic status and elevated creatinine. Continue Aspirin. Eliquis last dose on 08/19 pm - continue holding due to rectal bleed 08/20. 2D echo with diffuse hypokinesis, LVEF 25%() Pulmonary: Continue mechanical ventilation, vent bundle, bronchodilators as needed. Continue CPAP trials DuoNeb treatments every 6 hours scheduled every 2 hours when necessary GI/liver: Continue PEG feeds with Glucerna @ 30cc/hr. Advance to goal. Currently on hold 08/26 EGD Zofran for nausea Renal/: Given Lasix 80 mg IV stat on 08/20 for pulmonary edema. Strict intake output Monitor and replete electrolytes follow BUN creatinine. Will continue lasix to maintain even to slightly negative fluid balance Endocrine: SSI for glycemic control Heme: Transfused 1 unit PRBC on 08/20. Follow CBC. Being followed by hematology. Transfused 1 unit PRBCs 08/20 in view of acute [place] to bring hemoglobin closer to 9 g percent ID: On Cefepime for UTI. Urine culture with Pseudomonas recently. Repeat cultures sent. MSK: Status post BKA 08/26 venous Doppler ultrasound bilateral upper and lower extremities negative Prophylaxis: PPI/SCDs. Holding anticoagulation with Eliquis due to rectal bleeding on 08/20. Clear with GI prior to starting subcutaneous heparin. Lines: Left femoral central venous catheter, left femoral arterial line placed on 08/20-08/24 Prognosis appears extremely poor. Dispo: Plan for trial of extubation in a.m. , patient successfully continue CPAP trials. DCF assigned as decision maker for patient, palliative care team meeting via telephone 08/26/16, plan for hospice consult. Discussed with family medicine service, Discussed with ICU nursing staff. Level 3 Physician Quin Hodges MD Aug 27, 2016 15:52
--- NOTE | 2016-08-27 17:59 | HHI.GIFU ---
Subjective Remarks Comfortable in bed intubated no bleeding noted Objective Vitals I&O Vital Signs Date Time Temp Pulse Resp B/P Pulse Ox O2 Delivery O2 Flow Rate FiO2 08/27/16 16:00 98.8 96 17 139/89 100 08/27/16 16:00 96 08/27/16 16:00 40 08/27/16 14:09 98 08/27/16 12:37 100 40 08/27/16 12:00 94 08/27/16 12:00 40 08/27/16 12:00 98.9 94 19 151/89 100 08/27/16 10:00 101 08/27/16 09:21 100 40 08/27/16 08:00 40 08/27/16 08:00 98 08/27/16 08:00 98.7 98 16 124/80 100 08/27/16 06:00 97 08/27/16 04:00 97.9 94 16 139/92 100 08/27/16 04:00 92 08/27/16 04:00 40 08/27/16 03:29 100 40 08/27/16 02:00 93 08/27/16 01:04 100 40 08/27/16 00:00 98.0 92 16 143/91 100 08/27/16 00:00 40 08/27/16 00:00 90 08/26/16 22:00 90 08/26/16 20:00 40 08/26/16 20:00 90 08/26/16 20:00 97.9 89 16 142/87 100 08/26/16 19:41 100 40 08/26/16 18:00 86 I/O 08/26/16 08/26/16 08/26/16 08/27/16 08/27/16 08/27/16 07:00 15:00 23:00 07:00 15:00 23:00 Intake Total 698 ml 242 ml 175 ml 800 ml Output Total 300 ml 250 ml 650 ml 550 ml 775 ml Balance -300 ml 448 ml -408 ml -375 ml 25 ml IV Total 98 ml 242 ml 175 ml 200 ml Tube Feeding 0 ml Other 600 ml 600 ml Output Urine Total 300 ml 250 ml 650 ml 550 ml 775 ml # Bowel Movements 0 0 Physical Exam HEENT: Normocephalic; atraumatic CHEST: Resp shallow/even. Diminished. OETT to vent. CARDIAC: RRR ABDOMEN: Soft, nondistended, nontender; no hepatosplenomegaly; bowel sounds are present in all four quadrants. PEG site free of redness, drainage, or swelling. EXTREMITIES: Right BKA, left foot dark ulcer medial side SKIN: Normal; no rash; no jaundice. DATA ANALYTICS CHIEF SCIENTIST: Somnolent Assessment and Plan Plan ASSESSMENT: - Anemia/Rectal bleeding. EGD planned for tomorrow but palliative care also following. D/w palliative care and will keep order for consents and NPO but will hold off on procedure until DCF makes decision whether to pursue palliative care and transfer pt to appropriate facility, and if they would like to proceed with EGD. Pt was previously hospitalized from October 15, 2015 to July 18, 2016. During that hospitalization he was noted to be anemic secondary to anemia of chronic disease as well as possible myelosuppression for which he received blood transfusions and Procrit and was evaluated by hematology. Pt was seen by GI team during that admission for evaluation of iron deficiency anemia. He underwent incomplete colonoscopy on 08/05/16 which noted poor prep, internal hemorrhoids, recommendation to repeat in 3 days. At that time the repeat colonoscopy was not performed as the patient would not tolerate prep even with NGT in place. Pt had a PEG tube for feeding placed on 08/08/16 for maintaining his nutritional status. He was on Eliquis for anticoagulation and has ischemic cardiomyopathy. Pt coded 4 times yesterday and was transferred to [facility] and is currently intubated. Nursing staff reported that the pt had an episode of bright red rectal bleeding Monday night. He has not had any further bleeding today. His HH is stable at this time. G tube to LIWS with small amount of dark green gastric secretions, he is on PRBC. His G-tube was placed to LIWS and he was started on Protonix gtt. The pts Eliquis was last given on 08/19/16. He is still on ASA. Pt is on pressors. Of note, he had cardiac arrest x 4 over weekend and it is possible that he could have some ischemia related to this. However, he has not had any further bleeding and therefore at this time, we will continue to monitor HH and consider egd/ colonoscopy once more stable. - Cardiac arrest x 4 s/p CPR. Per supervisor title and Cardiology. - Acute respiratory failure on mechanical ventilation per Respiratory Tech - Encephalopathy suspected anoxic brain damage in the setting of poor baseline neurologic function as pt is off sedation and poor neuro status. - Elevated troponin with suspected acute [place]. Cardiology following. No cardiac cath planned at this time. - Acute on chronic renal failure with multiple electrolyte abnormalities. Per renal - CHF, CAD, HTN, DM, Hx CVA per primary. PLAN: - Glucerna 1.5 and increase to GR 60 mls/hr goal -EGD unremarkable -Case discussed with Dr. Misael cedeño to proceed with anticoagulation if any further bleeding were to occur we will be more aggressive with endoscopy - Protonix 40mg IV BID - Monitor HH - Transfuse as necessary - Supportive care - Monitor for any active GIB and notify GI if any active bleeding noted. Sherman Gómez MD Aug 27, 2016 17:59
[2016-08-27] MEDS: MIRTAZAPINE 15 MG TAB PO SCH (20:37)
[2016-08-27] MEDS: ATORVASTATIN 80 MG TAB PO SCH (20:37)
[2016-08-28] VITALS (19 sets, daily range): BP systolic 115–135; BP diastolic 74–93; PULSE 89–99; RESP 15–19; TEMP 98–99.7; O2SAT 100
[2016-08-28] MEDS: FREE WATER G-TUBE SCH ×6 (03:58→20:00)
[2016-08-28] MEDS: RESP: ALBUTEROL 2.5 MG/IPRATROPIUM 0.5 MG NEB (SCH) NEB ×2 (04:15→09:52)
[2016-08-28 04:33] LABS: HEMATOCRIT 28.8 % (39.0-51.0); MEAN CELL VOLUME 82.3 FL (80.0-100.0); MEAN CORPUSCULAR HEMOGLOBIN 27.1 PG (27.0-34.0); MEAN CORPUSCULAR HGB CONC 32.9 % (32.0-36.0); PLATELET COUNT 288 TH/MM3 (150-450); RED CELL DISTRIBUTION WIDTH 16.9 % (11.6-17.2); REVIEW FLAG FINAL; WHITE BLOOD COUNT 11.1 TH/MM3 (4.0-11.0)
[2016-08-28 04:46] LABS: BICARBONATE 22.9 MEQ/L (21.0-32.0); MAGNESIUM 1.5 MG/DL (1.5-2.5); POTASSIUM 3.2 MEQ/L (3.5-5.1)
[2016-08-28 05:27] LABS: BLOOD GAS BASE EXCESS -0.7 mmol/L (-2-2); BLOOD GAS CARBOXYHEMOGLOBIN 1.3 % (0-4); BLOOD GAS HCO3 23 mmol/L (22-26); BLOOD GAS METHEMOGLOBIN 0.8 % (0-2); BLOOD GAS O2 HGB SATURATION 97 % (90-100); BLOOD GAS OXYGEN CONTENT 13.9 Vol % (12.0-20.0); BLOOD GAS PCO2 34 mmHg (38-42); BLOOD GAS PO2 165 mmHg (61-120); BLOOD GAS TOTAL HGB 9.9 G/DL (12.0-16.0); CRITICAL VALUE NO; OXYGEN DEVICE VENTILATOR; TEMP CORR TO 98.6
[2016-08-28 05:28] LABS: DRAW SITE RT RADIAL; FIO2 40 %; NUMBER OF ARTERIAL PUNCTURES 1; STAT NO; ULNAR PULSE PRESENT; VENT SETTINGS CPAP 8/+5
[2016-08-28] MEDS: INSULIN ASPART SUPPLEMENTAL SCALE SQ SCH ×4 (07:00→21:00)
[2016-08-28] MEDS: DEXTROSE 50% IN WATER 50 ML VIAL(D50) IV PUSH PRN ×3 (07:04→17:08)
[2016-08-28] MEDS: levETIRAcetam INJ 500 MG in SODIUM CHLORIDE 0.9% INJ 100 ML IV SCH ×2 (08:17→20:24)
[2016-08-28] MEDS: ASPIRIN 81 MG CHEW TAB G-TUBE SCH (08:18)
[2016-08-28] MEDS: FERROUS SULFATE 325 MG (65 MG ELEMENTAL IRON) TAB PO SCH (08:18)
[2016-08-28] MEDS: FUROSEMIDE 40 MG/4 ML VIAL IV PUSH SCH ×2 (08:18→18:03)
[2016-08-28] MEDS: CALCIUM CARBONATE 500 MG CHEWABLE TAB CHEW SCH ×2 (08:18→20:24)
[2016-08-28] MEDS: SODIUM CHLORIDE 0.9% FLUSH 10 ML FLUSH IV FLUSH SCH ×2 (08:19→20:25)
[2016-08-28] MEDS: CHOLECALCIFEROL (VIT D3) 1000 UNIT TAB PO SCH (08:23)
[2016-08-28] MEDS: COLLAGENASE OINT 30 GM TUBE TOPICAL SCH (09:00)
--- NOTE | 2016-08-28 09:30 | HHI.FPPN ---
Subjective Remarks Patient remains intubated. Sleeping comfortably. Case discussed with Dr. Douglas , and bedside nurse. Likely going for tracheostomy today. (Balbir Nguyễn MD R2 ) Objective Vitals Vital Signs Date Time Temp Pulse Resp B/P Pulse Ox O2 Delivery O2 Flow Rate FiO2 08/28/16 06:00 93 08/28/16 04:16 100 40 08/28/16 04:00 98.0 91 15 129/93 100 08/28/16 04:00 40 08/28/16 04:00 91 08/28/16 02:00 97 08/28/16 00:29 100 40 08/28/16 00:00 98.7 99 19 127/83 100 08/28/16 00:00 99 08/28/16 00:00 40 08/27/16 22:00 97 08/27/16 21:18 100 40 08/27/16 20:00 102 08/27/16 20:00 98.2 102 26 122/84 100 08/27/16 20:00 40 08/27/16 18:00 96 08/27/16 16:00 98.8 96 17 139/89 100 08/27/16 16:00 96 08/27/16 16:00 40 08/27/16 14:09 98 08/27/16 12:37 100 40 08/27/16 12:00 94 08/27/16 12:00 40 08/27/16 12:00 98.9 94 19 151/89 100 08/27/16 10:00 101 I/O 08/27/16 08/27/16 08/27/16 08/28/16 08/28/16 08/28/16 07:00 15:00 23:00 07:00 15:00 23:00 Intake Total 175 ml 800 ml 658 ml 679 ml Output Total 550 ml 775 ml 1375 ml 700 ml Balance -375 ml 25 ml -717 ml -21 ml IV Total 175 ml 200 ml 298 ml 79 ml Other 600 ml 360 ml 600 ml Output Urine Total 550 ml 775 ml 1375 ml 700 ml # Bowel Movements 0 (Balbir Nguyễn MD R2) Result Diagram: 08/28/16 0330 08/28/16 0330 Objective Remarks GENERAL: male laying in bed orally intubated. SKIN: Warm and dry. Appears pale. HEENT: Tracks eyes. PERRLA. HEART: RRR no m/r/g. LUNGS: Good air movement. Anterior lung sounds coarse. ABDOMEN: Hypoactive bowel sounds. Soft, NT, ND. PEG tube in place. EXTREMITIES: R BKA. LLE without edema. NEURO: Responding to UE commands. (Balbir Nguyễn MD R2) Date of Removal: Aug 23, 2016 Line: Central Venous Catheter Side: Left Location: Femoral (Balbir Nguyễn MD R2) A/P Assessment and Plan 61 yo M, hx of prolonged hospital stay from September 2015 - July 18, 2016, having returned to the hospital on July 22 for fall. Admitted for AMS, rhabdomyolysis , dehydration, hypernatremia and anemia. PEG tube has been placed due to decreased PO intake and dehydration. Patient is currently in critical condition due to ischemic cardiac event. Cardiology has been consulted, no interventions anticipated until pt shows clinical improvement. DCF making decisions for patient and palliative care and case management working with communication. Code status cannot be changed per DCF but agreeable to hospice. Discharge Planning Unclear discharge timetable as patient in critical condition and DCF making medical decisions for the patient. Palliative care spoke with DCF yesterday who seemed to agree to hospice but could not change code status so patient remains FULL code. (Balbir Nguyễn MD R2) Attending Attestation Pt. examined and case discussed with resident physician I have read the above note and agree with the assessment/plan as discussed with me I was involved in all medical decision making for this patient Abiodun Austin MD (Abiodun Austin MD) Problem List: (1) Myocardial infarction acute Status: Acute Plan: Cardiac arrest s/p CPR with ROSC on 08/20. Troponin as high as >40 and EKG with LBBB. Cardiology consulted and patient in too critical condition for intervention at this time. - 2D echo with diffuse hypokinesis and LVEF 25% - Continue baby ASA - Eliquis held secondary to rectal bleeding (2) Respiratory failure Status: Acute Plan: Patient intubated, awake, and alert. Vent management and CPAP trials per critical care. - CXR 08/20 showed low lung volumes with bibasilar consolidation (3) DVT (deep venous thrombosis) Status: Acute Plan: DVT and left brachial vein Discussed with Dr. Douglas Subcutaneous heparin Monitor for any active GI bleed, and notify GI if any active bleeding noted. (4) Rectal bleeding Status: Acute Plan: Pt with anemia and acute rectal bleeding was noted. - GI consulted. S/P normal EGD yesterday - Protonix 40 mg IV BID - Monitor for active bleeding - H&H stable. Continue to monitor (5) UTI (urinary tract infection) Status: Acute Plan: Repeat UA on 08/18 significant for hazy appearance, 30 protein, small occult blood, positive nitrites, large leukocyte esterase, many white blood cell clumps, moderate bacteria. Urine culture: Pseudomonas aeruginosa, sensitive to cefepime Continue Cefepime 1gm BID (08/19-) x anticipate duration of 10 days (6) Decubitus ulcer, stage 3 Status: Acute Plan: Patient with large decubitus ulcer over lower back; appears to be healing with good granulation tissue -Wound care consulted, appreciate recommendations * Collagenase ointment to be applied daily * Wound dressing changes daily per RN (7) Anemia Status: Chronic Plan: Likely secondary to chronic disease with GI bleeding. Hematolgoy consulted and patient on Procrit - FOBT + and GI consulted; EGD done 08/26 and was normal - Continue iron supplementation - Continue Protonix - Monitor H&H (8) Rlhze-pr-plrhajb kidney injury Status: Acute Plan: Currently stable. - Nephrology consulted - Avoid nephrotoxic meds - Closely monitor I&O - Renal U/S unremarkable (9) Altered mental status Status: Chronic Plan: Pt likely with recent anoxic brain injury due to decreased brain perfusion secondary to cardiac arrest. He has had multiple ischemic strokes in the past including a lacunar infarct on 10/20/15. At patient's baseline he is able to communicate with yes or no answers. He has also been able to express himself using complete sentences. - CT head 08/21 with no acute disease - EEG showing changes with diffuse encephalopathy (10) Chronic systolic (congestive) heart failure Status: Chronic Plan: Patient with hx of CHF, EF 35% from September 2015. -Echo from 08/20 significant for EF of 20-25% with diffuse hypokinesis. -Lasix 40 mg IV twice a day (11) Coronary artery disease Status: Chronic Plan: Continue statin. Antihypertensives held in light of hypotensive shock. Eliquis held secondary to rectal bleeding. (12) HTN (hypertension) Status: Chronic Plan: Holding home meds in light of hypotension. (13) Low vitamin D level Status: Acute Plan: Vitamin D low at 11.6. -Cholecalciferol 2000 units po Daily -Calcium carbonate 500 mg BID (14) Diabetes mellitus Status: Chronic Plan: A1C 6.9 on 11/25/15, not on oral medications as an outpatient. - Continue to monitor - Low dose SSI (15) Nutrition, metabolism, and development symptoms Status: Acute Plan: - Fluids: Free water via PEG - Electrolytes: Monitor and replete as needed - Nutrition: Glucerna tube feeds with goal 1.5 at 60 ml/hr - DVT prophylaxis: Subcutaneous heparin. Monitor for GI bleed. - GI prophylaxis: on PPI dw Dr. Austin (Balbir Nguyễn MD R2) Problem Qualifiers (1) DVT (deep venous thrombosis): Qualified Code: I82.622 - Acute deep vein thrombosis (DVT) of brachial vein of left upper extremity (2) Anemia: Qualified Code: D50.8 - Other iron deficiency anemia (3) Altered mental status: Qualified Code: R41.82 - Altered mental status, unspecified altered mental status type (4) Coronary artery disease: Qualified Code: I25.10 - Coronary artery disease involving three affiliated heart without angina pectoris, unspecified vessel or lesion type (5) HTN (hypertension): Qualified Code: I10 - Essential hypertension (6) Diabetes mellitus: Qualified Code: E11.51 - Type 2 diabetes mellitus with diabetic peripheral angiopathy without gangrene, without long-term current use of insulin Balbir Nguyễn MD R2 Aug 28, 2016 09:30 Abiodun Austin MD Aug 28, 2016 21:26
[2016-08-28] MEDS: HEPARIN SODIUM - SQ 10,000 UNITS/ML VIAL SQ SCH ×2 (10:49→20:25)
[2016-08-28] MEDS: PANTOPRAZOLE SODIUM 40 MG VIAL IV PUSH SCH (11:58)
[2016-08-28] MEDS: CEFEPIME INJ 1,000 MG in SODIUM CHLORIDE 0.9% INJ 100 ML IV SCH (15:59)
--- NOTE | 2016-08-28 17:28 | HHI.CCPN ---
Subjective Remarks/Hospital Course 08/20: 61-year-old male admitted on 07/25/2016 by family medicine service after he was found at home by DCF not being able to take care of himself lying on the ground in his own feces. Previously patient was in the hospital from October 15, 2015 to July 18, 2016. During this hospitalization he was noted to be anemic secondary to anemia of chronic disease as well as possible myelosuppression for which she received blood transfusions and Procrit and was evaluated by hematology. He also has a PEG tube placed during this admission for maintaining his nutritional status. His neurologic status fluctuates and he goes from conversing to being encephalopathic. He has had multiple strokes and does have coronary artery disease with previous CABG and stenting. He is on Eliquis for anticoagulation and does have an ischemic cardiomyopathy as well as diabetes mellitus. He was recently started on Rocephin for a UTI. This morning patient was noted to have hypotension and some altered mental status. He was given fluid bolus and a chest x-ray was done earlier. Subsequently around 7 AM CODE BLUE cardiac arrest code was called for which I responded to the floor. At the time of my arrival patient was being ventilated with bag mask ventilation. He initially had agonal respirations. He was noted to be in asystole on the monitor subsequently so CPR/ACLS protocol was initiated. Patient had return of circulation following about 15 minutes of ACLS protocol and was noted to have a left bundle branch block which appeared old. He was started on an epinephrine drip for hypotension and transported to [facility]. Shortly following his arrival to the unit he underwent another episode of bradycardia and subsequently lost his pulse. CPR/ACLS protocol was initiated and he had return of spontaneous circulation following about 5 minutes of ACLS. He had a central line and a femoral arterial line placed emergently by myself. Stat labs were sent as well as ABG. Patient was continued on mechanical ventilation. He subsequently had 2 further episodes of cardiac arrest from which he was successfully resuscitated. History was obtained by reviewing records and discussion with family medicine team and floor as well as floor nursing staff. 08/21: Remains sedated, orally intubated on mechanical ventilation. Sedation held this morning to assess neurologic status. On dopamine 5 mics per KG per minute. Off other pressors at this time. Troponin greater than 40 this morning. On Protonix drip which was started yesterday for some rectal bleeding which is now stopped. EF 25% on 2-D echo done yesterday. Eliquis continues to be on hold. On aspirin. 08/22: Dopamine 2.5mcgs weaned off this morning. The patient appears hemodynamically stable, normotensive. 08/23: Tmax 99.7. Dopamine remained off overnight, patient remains normotensive. Overnight the patient began to follow commands moving his extremities 4. CPAP trials to begin today. Physical therapy order for functional maintenance. Leukocytosis trending down. Will discontinue femoral central line and arterial line today. 08/24: Afebrile. CPAP was initiated today, the pain patient continues on CPAP since 8:30 this morning 10/5/FiO2 of 30%. He remains hemodynamically stable at this point, we'll reconsult GI regarding possible upper endoscopy and colonoscopy, defer recommendations regarding heparin. 08/25: Afebrile. The patient continues on CPAP trials, planned meeting with palliative care and DCF unsuccessful today rescheduling will be attempted. The patient is tracking and following commands. 08/26: Tmax 99 .8. The patient underwent venous Doppler ultrasound of extremities yesterday, negative results. The patient scheduled to undergo EGD today secondary to previous GI bleed. The patient was placed out of bed into recliner chair today. Plan for hospice consult palliative care team with conversation with DCF. 08/27: Patient continues to be maintained on CPAP trials, with discontinuation. Plan for SBT parameters in the a.m., and a trial of extubation. The patient's interacting nodding head to yes and no questions appropriately. Patient normotensive. Hospice consult initiated by family medicine. 08/28: Patient remained on CPAP all night, however has several periods of apnea and attempted to self extubate this morning. Heparin subcutaneous was initiated , patient was placed on tube feeds. Objective Vital Signs Date Time Temp Pulse Resp B/P Pulse Ox O2 Delivery O2 Flow Rate FiO2 08/28/16 16:43 100 40 08/28/16 12:10 98.7 92 19 135/89 Intake and Output 08/27/16 08/27/16 08/28/16 08:00 16:00 00:00 Intake Total 175 ml 800 ml 658 ml Output Total 550 ml 775 ml 1375 ml Balance -375 ml 25 ml -717 ml Result Diagram: 08/28/16 0330 08/28/16 0330 Other Results Laboratory Tests Test 08/28/16 05:20 Blood Gas Puncture Site RT RADIAL Blood Gas Patient Temperature 98.6 Blood Gas HCO3 23 mmol/L (22-26) Blood Gas Base Excess -0.7 mmol/L (-2-2) Blood Gas Oxygen Saturation 97 % (90-100) Arterial Blood pH 7.45 (7.380-7.420) Arterial Blood Partial 34 mmHg (38-42) Pressure CO2 Arterial Blood Partial 165 mmHg Pressure O2 (61-120) Arterial Blood Oxygen Content 13.9 Vol % (12.0-20.0) Arterial Blood 1.3 % (0-4) Carboxyhemoglobin Arterial Blood Methemoglobin 0.8 % (0-2) Blood Gas Hemoglobin 9.9 G/DL (12.0-16.0) Oxygen Delivery Device VENTILATOR Blood Gas Ventilator Setting CPAP 8/+5 Blood Gas Inspired Oxygen 40 % Imaging Last 24 hours Impressions Chest X-Ray 08/20/16 0500 Signed Impressions: Service Date/Time: Saturday, August 20, 2016 05:06 - CONCLUSION: Low lung volumes with bibasilar consolidation. Consolidation could relate to atelectasis or infiltrates. Daryl Prabhakar Jr., MD Chest X-Ray 08/20/16 0000 Signed Impressions: Service Date/Time: Saturday, August 20, 2016 08:15 - CONCLUSION: 1. ET tube in good position. 2. Mild diffuse increased interstitial markings likely representing edema. Camacho Santana MD Last Impressions Chest X-Ray 08/20/16 0500 Signed Impressions: Service Date/Time: Saturday, August 20, 2016 05:06 - CONCLUSION: Low lung volumes with bibasilar consolidation. Consolidation could relate to atelectasis or infiltrates. Daryl Prabhakar Jr., MD Bone Osseous Survey 07/31/16 0000 Signed Impressions: Service Date/Time: Sunday, July 31, 2016 16:09 - CONCLUSION: Unremarkable bone survey. Incidental note made of median sternotomy. Multiple gallstones. Richard Gerber MD Head CT 07/25/16 1644 Signed Impressions: Service Date/Time: Monday, July 25, 2016 17:19 - CONCLUSION: 1. Lacunar infarcts bilaterally, worse on the left. 2. Negative for an acute process. Didier Clay MD FACR Renal Ultrasound 07/25/16 0000 Signed Impressions: Service Date/Time: Monday, July 25, 2016 20:55 - CONCLUSION: 1. Tiny nonobstructing calcified left renal calculi. 2. No hydronephrosis or solid renal mass. Efren Cleaning MD Objective Remarks HEENT/ Neuro: Alert and responsive, moving extremities 4. Localizing/ withdraws , orally intubated. Pallor present, no icterus, tongue/ mucosa moist Neck: No JVD, trachea midline Chest/Pulm: on mech vent, good air entry bilaterally, clear to auscultation bilaterally, no wheezing. CVS: S1-S2 regular, no murmur, rubs or gallops GI/abdomen: soft, nontender, bowel sounds sluggish. PEG tube in place Extremities: warm bilaterally, trace bilateral edema upper and lower extremitities. Urinary Catheter: Yes Diehl insert reason: Measure Accurate Output Date of Removal: Aug 23, 2016 Line: Central Venous Catheter Side: Left Location: Femoral A/P Assessment and Plan 61-year-old male with: Cardiac arrest status post CPR Acute respiratory failure on mechanical ventilation Pulmonary edema Shock(resolved) Encephalopathy suspected anoxic brain damage in the setting of poor baseline neurologic function: Elevated troponin with acute OH Ischemic cardiomyopathy History of CHF with EF 35% PAT/ CKD History of strokes Anemia of chronic disease Diabetes mellitus Myelosuppression Monoclonal gammopathy Sacral decubitus ulcer Status post PEG tube placement UTI Possible sepsis BKA right lower extremity Plan: Neuro: Currently all sedation, monitor neuro status. Patient following some commands moving extremities 4. Interacting to yes and no questions History of multiple strokes . Head CT negative for bleed (08/21) was on Eliquis for prior strokes however currently on hold due to rectal bleeding. Restart anticoagulation when okay with GI. Currently still on hold Cardiovascular: Off epinephrine/Levophed. Dopamine discontinued 08/22. EKG with left bundle branch block. Troponin greater than 40 noted. Cardiology: Dr. Damián Arias not planning any intervention at this time due to poor neurologic status and elevated creatinine. Continue Aspirin. Eliquis last dose on 08/19 pm - continue holding due to rectal bleed 08/20. 2D echo with diffuse hypokinesis, LVEF 25%() Pulmonary: Continue mechanical ventilation, vent bundle, bronchodilators as needed. Continue CPAP trials DuoNeb treatments every 6 hours scheduled every 2 hours when necessary Plan for trial of extubation discontinued, secondary to patient has periods of apnea GI/liver: Continue PEG feeds with Glucerna @ 30cc/hr. Advance to goal. Currently on hold 08/26 EGD Zofran for nausea Renal/: Given Lasix 80 mg IV stat on 08/20 for pulmonary edema. Strict intake output Monitor and replete electrolytes follow BUN creatinine. Will continue lasix to maintain even to slightly negative fluid balance Endocrine: SSI for glycemic control Heme: Transfused 1 unit PRBC on 08/20. Follow CBC. Being followed by hematology. Transfused 1 unit PRBCs 08/20 in view of acute OH to bring hemoglobin closer to 9 g percent ID: On Cefepime for UTI. Urine culture with Pseudomonas recently. Repeat cultures sent. MSK: Status post BKA 08/26 venous Doppler ultrasound Upper extremity-DVT left brachial vein, superficial thrombosed basilic and cephalic vein, B/L lower extremities negative Prophylaxis: PPI/SCDs. SQ heparin initiated 08/28 with GI clearance Lines: Left femoral central venous catheter, left femoral arterial line placed on 08/20-08/24 Prognosis appears extremely poor. Dispo: Plan for trial of extubation in a.m. , patient successfully continue CPAP trials. DCF assigned as decision maker for patient, palliative care team meeting via telephone 08/26/16, plan for hospice consult. If patient does not plan to go to hospice will have to consider tracheostomy. Discussed with family medicine service, Discussed with ICU nursing staff. Level 2 Physician Quin Hodges MD Aug 28, 2016 17:28
[2016-08-28] MEDS: MIRTAZAPINE 15 MG TAB PO SCH (20:24)
[2016-08-28] MEDS: ATORVASTATIN 80 MG TAB PO SCH (20:25)
--- NOTE | 2016-08-28 23:23 | HHI.GIFU ---
Subjective Remarks Intubated comfortable in bed No rectal bleeding per nurse Objective Vitals I&O Vital Signs Date Time Temp Pulse Resp B/P Pulse Ox O2 Delivery O2 Flow Rate FiO2 08/28/16 22:00 98 08/28/16 20:58 100 40 08/28/16 20:00 95 08/28/16 20:00 99.7 95 19 120/74 100 08/28/16 20:00 40 08/28/16 18:07 95 08/28/16 16:43 100 40 08/28/16 16:00 40 08/28/16 16:00 93 08/28/16 16:00 99.4 94 15 118/87 100 08/28/16 14:00 92 08/28/16 12:34 100 40 08/28/16 12:10 40 08/28/16 12:10 98.7 92 19 135/89 100 08/28/16 12:00 92 08/28/16 10:19 89 08/28/16 09:56 100 40 08/28/16 08:00 96 08/28/16 08:00 98.5 96 18 115/85 100 08/28/16 08:00 40 08/28/16 06:00 93 08/28/16 04:16 100 40 08/28/16 04:00 98.0 91 15 129/93 100 08/28/16 04:00 40 08/28/16 04:00 91 08/28/16 02:00 97 08/28/16 00:29 100 40 08/28/16 00:00 98.7 99 19 127/83 100 08/28/16 00:00 99 08/28/16 00:00 40 I/O 08/27/16 08/27/16 08/27/16 08/28/16 08/28/16 08/28/16 07:00 15:00 23:00 07:00 15:00 23:00 Intake Total 175 ml 800 ml 658 ml 679 ml 800 ml 664 ml Output Total 550 ml 775 ml 1375 ml 700 ml 1350 ml 1150 ml Balance -375 ml 25 ml -717 ml -21 ml -550 ml -486 ml IV Total 175 ml 200 ml 298 ml 79 ml 200 ml 259 ml Tube Feeding 45 ml Other 600 ml 360 ml 600 ml 600 ml 360 ml Output Urine Total 550 ml 775 ml 1375 ml 700 ml 1350 ml 1150 ml # Bowel Movements 0 0 Laboratory Laboratory Tests Test 08/28/16 08/28/16 03:30 05:20 White Blood Count 11.1 Red Blood Count 3.50 Hemoglobin 9.5 Hematocrit 28.8 Mean Corpuscular Volume 82.3 Mean Corpuscular Hemoglobin 27.1 Mean Corpuscular Hemoglobin 32.9 Concent Red Cell Distribution Width 16.9 Platelet Count 288 Mean Platelet Volume 7.3 Sodium Level 137 Potassium Level 3.2 Chloride Level 102 Carbon Dioxide Level 22.9 Anion Gap 12 Blood Urea Nitrogen 31 Creatinine 1.65 Estimat Glomerular Filtration 43 Rate Random Glucose 61 Calcium Level 8.6 Phosphorus Level 2.8 Magnesium Level 1.5 Blood Gas Puncture Site RT RADIAL Blood Gas Patient Temperature 98.6 Blood Gas HCO3 23 Blood Gas Base Excess -0.7 Blood Gas Oxygen Saturation 97 Arterial Blood pH 7.45 Arterial Blood Partial 34 Pressure CO2 Arterial Blood Partial 165 Pressure O2 Arterial Blood Oxygen Content 13.9 Arterial Blood 1.3 Carboxyhemoglobin Arterial Blood Methemoglobin 0.8 Blood Gas Hemoglobin 9.9 Oxygen Delivery Device VENTILATOR Blood Gas Ventilator Setting CPAP 8/+5 Blood Gas Inspired Oxygen 40 Physical Exam HEENT: Normocephalic; atraumatic CHEST: Resp shallow/even. Diminished. OETT to vent. CARDIAC: RRR ABDOMEN: Soft, nondistended, nontender; no hepatosplenomegaly; bowel sounds are present in all four quadrants. PEG site free of redness, drainage, or swelling. EXTREMITIES: Right BKA, left foot dark ulcer medial side SKIN: Normal; no rash; no jaundice. IMPREGNATOR OPERATOR: Somnolent Assessment and Plan Plan ASSESSMENT: - Anemia/Rectal bleeding. EGD planned for tomorrow but palliative care also following. D/w palliative care and will keep order for consents and NPO but will hold off on procedure until DCF makes decision whether to pursue palliative care and transfer pt to appropriate facility, and if they would like to proceed with EGD. Pt was previously hospitalized from October 15, 2015 to July 18, 2016. During that hospitalization he was noted to be anemic secondary to anemia of chronic disease as well as possible myelosuppression for which he received blood transfusions and Procrit and was evaluated by hematology. Pt was seen by GI team during that admission for evaluation of iron deficiency anemia. He underwent incomplete colonoscopy on 08/05/16 which noted poor prep, internal hemorrhoids, recommendation to repeat in 3 days. At that time the repeat colonoscopy was not performed as the patient would not tolerate prep even with NGT in place. Pt had a PEG tube for feeding placed on 08/08/16 for maintaining his nutritional status. He was on Eliquis for anticoagulation and has ischemic cardiomyopathy. Pt coded 4 times yesterday and was transferred to [facility] and is currently intubated. Nursing staff reported that the pt had an episode of bright red rectal bleeding Monday night. He has not had any further bleeding today. His HH is stable at this time. G tube to LIWS with small amount of dark green gastric secretions, he is on PRBC. His G-tube was placed to LIWS and he was started on Protonix gtt. The pts Eliquis was last given on 08/19/16. He is still on ASA. Pt is on pressors. Of note, he had cardiac arrest x 4 over weekend and it is possible that he could have some ischemia related to this. However, he has not had any further bleeding and therefore at this time, we will continue to monitor HH and consider egd/ colonoscopy once more stable. - Cardiac arrest x 4 s/p CPR. Per claims analyst and Cardiology. - Acute respiratory failure on mechanical ventilation per [employer] Rep[employer]r - Encephalopathy suspected anoxic brain damage in the setting of poor baseline neurologic function as pt is off sedation and poor neuro status. - Elevated troponin with suspected acute [place]. Cardiology following. No cardiac cath planned at this time. - Acute on chronic renal failure with multiple electrolyte abnormalities. Per renal - CHF, CAD, HTN, DM, Hx CVA per primary. PLAN: -Tolerating tube feed -EGD unremarkable -No bleeding while on anticoagulation - Protonix 40mg IV BID - Monitor HH - Transfuse as necessary - Supportive care - Monitor for any active GIB and notify GI if any active bleeding noted. We will sign off at this point reconsult as needed Sherman Gómez MD Aug 28, 2016 23:23
[2016-08-29] VITALS (18 sets, daily range): BP systolic 94–128; BP diastolic 67–86; PULSE 83–99; RESP 10–20; TEMP 97.7–99.7; O2SAT 99–100
[2016-08-29] MEDS: PANTOPRAZOLE SODIUM 40 MG VIAL IV PUSH SCH ×2 (00:01→12:15)
[2016-08-29 03:31] LABS: AUTOMATED NEUTROPHIL # 8.3 TH/MM3 (1.8-7.7); BASOPHIL # 0.1 TH/MM3 (0-0.2); BASOPHIL % 0.5 % (0.0-2.0); EOSINOPHIL # 0.3 TH/MM3 (0-0.4); EOSINOPHIL % 2.5 % (0.0-4.0); HEMATOCRIT 29.5 % (39.0-51.0); HEMO FLAGS DIFF FINAL; LYMPHOCYTE # 0.9 TH/MM3 (1.0-4.8); MEAN CELL VOLUME 81.5 FL (80.0-100.0); MEAN CORPUSCULAR HEMOGLOBIN 27.4 PG (27.0-34.0); MEAN CORPUSCULAR HGB CONC 33.6 % (32.0-36.0); MONO % 9.4 % (0.0-8.0); NEUT % 78.6 % (16.0-70.0); PLATELET COUNT 295 TH/MM3 (150-450); RED BLOOD COUNT 3.62 MIL/MM3 (4.50-5.90); RED CELL DISTRIBUTION WIDTH 16.7 % (11.6-17.2); WHITE BLOOD COUNT 10.6 TH/MM3 (4.0-11.0)
[2016-08-29 03:49] LABS: BICARBONATE 25.9 MEQ/L (21.0-32.0); POTASSIUM 3.1 MEQ/L (3.5-5.1)
[2016-08-29] MEDS ORDERED: MAGNESIUM SULFAT 1 GM PREMIX 100 ML x2 bags IV SCH (04:00)
[2016-08-29] MEDS: FREE WATER G-TUBE SCH ×6 (04:00→21:40)
[2016-08-29] MEDS: MAGNESIUM SULFATE 1 GM PREMIX 100 ML IV SCH ×2 (04:01→05:05)
[2016-08-29] MEDS ORDERED: MAGNESIUM SULFATE INJ 2 GM in SODIUM CHLORIDE 0.9% INJ 96 ML IV PRN (04:15)
[2016-08-29] MEDS ORDERED: MAGNESIUM OXIDE 400 MG TAB PO PRN (04:15)
[2016-08-29] MEDS ORDERED: MAGNESIUM SULFATE INJ 4 GM in SODIUM CHLORIDE 0.9% INJ 92 ML IV PRN (04:15)
[2016-08-29] MEDS ORDERED: POTASSIUM CHLORIDE 25 MEQ EFFERVESCENT TAB PO PRN (04:15)
[2016-08-29] MEDS ORDERED: SODIUM PHOSPHATE INJ 30 MMOL in SODIUM CHLOR 0.9% 250 ML INJ 240 ML IV PRN (04:15)
[2016-08-29] MEDS ORDERED: POTASSIUM PHOSPHATE MONOBASIC 500 MG TAB PO PRN (04:15)
[2016-08-29] MEDS ORDERED: POTASSIUM PHOSPHATE MONOBASIC 500 MG TAB PO/TUBE PRN (04:15)
[2016-08-29] MEDS ORDERED: POTASSIUM CHLOR 40 MEQ PREMIX 100 ML IV PRN ×2 (04:15)
[2016-08-29] MEDS ORDERED: POTASSIUM CHLOR 20 MEQ PREMIX 100 ML IV PRN (04:15)
[2016-08-29 04:18] LABS: MAGNESIUM 1.4 MG/DL (1.5-2.5)
[2016-08-29] MEDS: POTASSIUM CHLOR 20 MEQ PREMIX 100 ML IV PRN ×3 (06:39→12:38)
[2016-08-29] MEDS: INSULIN ASPART SUPPLEMENTAL SCALE SQ SCH ×4 (06:41→21:40)
[2016-08-29] MEDS: FERROUS SULFATE 325 MG (65 MG ELEMENTAL IRON) TAB PO SCH (08:00)
--- NOTE | 2016-08-29 08:48 | HHI.CCPN ---
Subjective Remarks/Hospital Course 08/20: 61-year-old male admitted on 07/25/2016 by family medicine service after he was found at home by DCF not being able to take care of himself lying on the ground in his own feces. Previously patient was in the hospital from October 15, 2015 to July 18, 2016. During this hospitalization he was noted to be anemic secondary to anemia of chronic disease as well as possible myelosuppression for which she received blood transfusions and Procrit and was evaluated by hematology. He also has a PEG tube placed during this admission for maintaining his nutritional status. His neurologic status fluctuates and he goes from conversing to being encephalopathic. He has had multiple strokes and does have coronary artery disease with previous CABG and stenting. He is on Eliquis for anticoagulation and does have an ischemic cardiomyopathy as well as diabetes mellitus. He was recently started on Rocephin for a UTI. This morning patient was noted to have hypotension and some altered mental status. He was given fluid bolus and a chest x-ray was done earlier. Subsequently around 7 AM CODE BLUE cardiac arrest code was called for which I responded to the floor. At the time of my arrival patient was being ventilated with bag mask ventilation. He initially had agonal respirations. He was noted to be in asystole on the monitor subsequently so CPR/ACLS protocol was initiated. Patient had return of circulation following about 15 minutes of ACLS protocol and was noted to have a left bundle branch block which appeared old. He was started on an epinephrine drip for hypotension and transported to [facility]. Shortly following his arrival to the unit he underwent another episode of bradycardia and subsequently lost his pulse. CPR/ACLS protocol was initiated and he had return of spontaneous circulation following about 5 minutes of ACLS. He had a central line and a femoral arterial line placed emergently by myself. Stat labs were sent as well as ABG. Patient was continued on mechanical ventilation. He subsequently had 2 further episodes of cardiac arrest from which he was successfully resuscitated. History was obtained by reviewing records and discussion with family medicine team and floor as well as floor nursing staff. 08/21: Remains sedated, orally intubated on mechanical ventilation. Sedation held this morning to assess neurologic status. On dopamine 5 mics per KG per minute. Off other pressors at this time. Troponin greater than 40 this morning. On Protonix drip which was started yesterday for some rectal bleeding which is now stopped. EF 25% on 2-D echo done yesterday. Eliquis continues to be on hold. On aspirin. 08/22: Dopamine 2.5mcgs weaned off this morning. The patient appears hemodynamically stable, normotensive. 08/23: Tmax 99.7. Dopamine remained off overnight, patient remains normotensive. Overnight the patient began to follow commands moving his extremities 4. CPAP trials to begin today. Physical therapy order for functional maintenance. Leukocytosis trending down. Will discontinue femoral central line and arterial line today. 08/24: Afebrile. CPAP was initiated today, the pain patient continues on CPAP since 8:30 this morning 10/5/FiO2 of 30%. He remains hemodynamically stable at this point, we'll reconsult GI regarding possible upper endoscopy and colonoscopy, defer recommendations regarding heparin. 08/25: Afebrile. The patient continues on CPAP trials, planned meeting with palliative care and DCF unsuccessful today rescheduling will be attempted. The patient is tracking and following commands. 08/26: Tmax 99 .8. The patient underwent venous Doppler ultrasound of extremities yesterday, negative results. The patient scheduled to undergo EGD today secondary to previous GI bleed. The patient was placed out of bed into recliner chair today. Plan for hospice consult palliative care team with conversation with DCF. 08/27: Patient continues to be maintained on CPAP trials, with discontinuation. Plan for SBT parameters in the a.m., and a trial of extubation. The patient's interacting nodding head to yes and no questions appropriately. Patient normotensive. Hospice consult initiated by [facility] medicine. 08/28: Patient remained on CPAP all night, however has several periods of apnea and attempted to self extubate this morning. Heparin subcutaneous was initiated , patient was placed on tube feeds. 08/29: Patient experienced multiple episodes of wide complex V tachycardia during the night. Electrolytes repleted, the patient continues on CPAP with periods of apnea. Hospice consult plan for today. Objective Vital Signs Date Time Temp Pulse Resp B/P Pulse Ox O2 Delivery O2 Flow Rate FiO2 08/29/16 07:51 99 35 08/29/16 06:00 95 08/29/16 04:00 99.6 20 115/75 Intake and Output 08/28/16 08/28/16 08/29/16 08:00 16:00 00:00 Intake Total 679 ml 800 ml 664 ml Output Total 700 ml 1350 ml 1150 ml Balance -21 ml -550 ml -486 ml Result Diagram: 08/29/16 0300 08/29/16 0300 Imaging Last 24 hours Impressions Chest X-Ray 08/20/16 0500 Signed Impressions: Service Date/Time: Saturday, August 20, 2016 05:06 - CONCLUSION: Low lung volumes with bibasilar consolidation. Consolidation could relate to atelectasis or infiltrates. Daryl Prabhakar Jr., MD Chest X-Ray 08/20/16 0000 Signed Impressions: Service Date/Time: Saturday, August 20, 2016 08:15 - CONCLUSION: 1. ET tube in good position. 2. Mild diffuse increased interstitial markings likely representing edema. Camacho Santana MD Last Impressions Chest X-Ray 08/20/16 0500 Signed Impressions: Service Date/Time: Saturday, August 20, 2016 05:06 - CONCLUSION: Low lung volumes with bibasilar consolidation. Consolidation could relate to atelectasis or infiltrates. Daryl Prabhakar Jr., MD Bone Osseous Survey 07/31/16 0000 Signed Impressions: Service Date/Time: Sunday, July 31, 2016 16:09 - CONCLUSION: Unremarkable bone survey. Incidental note made of median sternotomy. Multiple gallstones. Richard Gerber MD Head CT 07/25/16 1644 Signed Impressions: Service Date/Time: Monday, July 25, 2016 17:19 - CONCLUSION: 1. Lacunar infarcts bilaterally, worse on the left. 2. Negative for an acute process. Didier Clay MD FACR Renal Ultrasound 07/25/16 0000 Signed Impressions: Service Date/Time: Monday, July 25, 2016 20:55 - CONCLUSION: 1. Tiny nonobstructing calcified left renal calculi. 2. No hydronephrosis or solid renal mass. Efren Cleaning MD Objective Remarks HEENT/ Neuro: Alert and responsive, moving extremities 4. Localizing/ withdraws , orally intubated. Pallor present, no icterus, tongue/ mucosa moist Neck: No JVD, trachea midline Chest/Pulm: on mech vent, good air entry bilaterally, clear to auscultation bilaterally, no wheezing. CVS: S1-S2 regular, no murmur, rubs or gallops GI/abdomen: soft, nontender, bowel sounds sluggish. PEG tube in place Extremities: warm bilaterally, trace bilateral edema upper and lower extremitities. Urinary Catheter: Yes Diehl insert reason: Measure Accurate Output Date of Removal: Aug 23, 2016 Line: Central Venous Catheter Side: Left Location: Femoral A/P Assessment and Plan 61-year-old male with: Cardiac arrest status post CPR Acute respiratory failure on mechanical ventilation Pulmonary edema Shock(resolved) Encephalopathy suspected anoxic brain damage in the setting of poor baseline neurologic function: Elevated troponin with acute FL Ischemic cardiomyopathy History of CHF with EF 35% PAT/ CKD History of strokes Anemia of chronic disease Diabetes mellitus Myelosuppression Monoclonal gammopathy Sacral decubitus ulcer Status post PEG tube placement UTI Possible sepsis BKA right lower extremity Wide-complex ventricular tachycardia Plan: Neuro: Currently all sedation, monitor neuro status. Patient following some commands moving extremities 4. Interacting to yes and no questions History of multiple strokes . Head CT negative for bleed (08/21) was on Eliquis for prior strokes however currently on hold due to rectal bleeding. Cardiovascular: Off epinephrine/Levophed. Dopamine discontinued 08/22. EKG with left bundle branch block. Troponin greater than 40 noted. Cardiology: Dr. Damián Arias not planning any intervention at this time due to poor neurologic status and elevated creatinine. Continue Aspirin. Eliquis last dose on 08/19 pm - continue holding due to rectal bleed 08/20. 2D echo with diffuse hypokinesis, LVEF 25%() Pulmonary: Continue mechanical ventilation, vent bundle, bronchodilators as needed. Continue CPAP trials DuoNeb treatments every 6 hours scheduled every 2 hours when necessary Plan for trial of extubation discontinued, secondary to patient has periods of apnea GI/liver: Continue PEG feeds with Glucerna @ 30cc/hr. Advance to goal. 08/26 EGD Zofran for nausea GI signed off continue to monitor for signs of rectal bleeding, subcutaneous heparin initiated 08/28. Plan for heparin infusion post discussion with Hospice today regarding disposition, monitor for rectal bleeding Renal/: Given Lasix 80 mg IV stat on 08/20 for pulmonary edema. Strict intake output Monitor and replete electrolytes follow BUN creatinine. Will continue lasix to maintain even to slightly negative fluid balance Endocrine: SSI for glycemic control Heme: Transfused 1 unit PRBC on 08/20. Follow CBC. Being followed by hematology. Transfused 1 unit PRBCs 08/20 in view of acute FL to bring hemoglobin closer to 9 g percent ID: On Cefepime for UTI. Urine culture with Pseudomonas MSK: Status post BKA 08/26 venous Doppler ultrasound bilateral upper-DVT left brachial vein, superficial thrombus basilic and cephalic veins Prophylaxis: PPI/SCDs. Subcutaneous heparin initiated 08/28 with GI clearance. Lines: Left femoral central venous catheter, left femoral arterial line placed on 08/20-08/24 Prognosis appears extremely poor. Dispo: DCF assigned as decision maker for patient, palliative care team meeting via telephone 08/26/16, plan for hospice consult. If patient does not plan to go to hospice will have to consider tracheostomy. Discussed with family medicine service, Discussed with ICU nursing staff. Level 2 Physician Quin Hodges MD August 29, 2016 08:48
[2016-08-29] MEDS: CHOLECALCIFEROL (VIT D3) 1000 UNIT TAB PO SCH (09:26)
[2016-08-29] MEDS: CALCIUM CARBONATE 500 MG CHEWABLE TAB CHEW SCH ×2 (09:26→21:38)
[2016-08-29] MEDS: ASPIRIN 81 MG CHEW TAB G-TUBE SCH (09:26)
[2016-08-29] MEDS: levETIRAcetam INJ 500 MG in SODIUM CHLORIDE 0.9% INJ 100 ML IV SCH ×2 (09:26→21:38)
[2016-08-29] MEDS: FUROSEMIDE 40 MG/4 ML VIAL IV PUSH SCH ×2 (09:26→17:47)
[2016-08-29] MEDS: COLLAGENASE OINT 30 GM TUBE TOPICAL SCH (09:27)
[2016-08-29] MEDS: HEPARIN SODIUM - SQ 10,000 UNITS/ML VIAL SQ SCH ×2 (09:27→21:39)
[2016-08-29] MEDS: SODIUM CHLORIDE 0.9% FLUSH 10 ML FLUSH IV FLUSH SCH ×2 (09:28→21:40)
--- NOTE | 2016-08-29 09:46 | HHI.FPPN ---
Subjective Remarks Vitals are stable. Nurse at beside. No overnight event. Patient seen and examined. Intubated. Tub feeds increased yest. Objective Vitals Vital Signs Date Time Temp Pulse Resp B/P Pulse Ox O2 Delivery O2 Flow Rate FiO2 08/29/16 07:51 99 35 08/29/16 06:00 95 08/29/16 04:03 100 40 08/29/16 04:00 99.6 99 20 115/75 100 08/29/16 04:00 99 08/29/16 04:00 40 08/29/16 02:04 100 40 08/29/16 02:00 98 08/29/16 00:00 98.3 95 18 115/81 100 08/29/16 00:00 40 08/29/16 00:00 95 08/28/16 22:00 98 08/28/16 20:58 100 40 08/28/16 20:00 95 08/28/16 20:00 99.7 95 19 120/74 100 08/28/16 20:00 40 08/28/16 18:07 95 08/28/16 16:43 100 40 08/28/16 16:00 40 08/28/16 16:00 93 08/28/16 16:00 99.4 94 15 118/87 100 08/28/16 14:00 92 08/28/16 12:34 100 40 08/28/16 12:10 40 08/28/16 12:10 98.7 92 19 135/89 100 08/28/16 12:00 92 08/28/16 10:19 89 08/28/16 09:56 100 40 I/O 08/28/16 08/28/16 08/28/16 08/29/16 08/29/16 08/29/16 07:00 15:00 23:00 07:00 15:00 23:00 Intake Total 679 ml 800 ml 664 ml 1251 ml Output Total 700 ml 1350 ml 1150 ml 450 ml Balance -21 ml -550 ml -486 ml 801 ml IV Total 79 ml 200 ml 259 ml 241 ml Tube Feeding 45 ml 210 ml Other 600 ml 600 ml 360 ml 800 ml Output Urine Total 700 ml 1350 ml 1150 ml 450 ml # Bowel Movements 0 0 Result Diagram: 08/29/16 0300 08/29/16 0300 Objective Remarks GENERAL: male laying in bed orally intubated. SKIN: Warm and dry. Appears pale. HEENT: Tracks eyes. PERRLA. HEART: RRR no m/r/g. LUNGS: Good air movement. Anterior lung sounds coarse. ABDOMEN: Hypoactive bowel sounds. Soft, NT, ND. PEG tube in place. EXTREMITIES: R BKA. LLE without edema. NEURO: Responding to UE commands. Date of Removal: Aug 23, 2016 Line: Central Venous Catheter Side: Left Location: Femoral A/P Assessment and Plan 61 yo M, hx of prolonged hospital stay from September 2015 - July 18, 2016, having returned to the hospital on July 22 for fall. Admitted for AMS, rhabdomyolysis , dehydration, hypernatremia and anemia. PEG tube has been placed due to decreased PO intake and dehydration. Patient is currently in critical condition due to ischemic cardiac event. Cardiology has been consulted, no interventions anticipated until pt shows clinical improvement. DCF making decisions for patient and palliative care and case management working with communication. Code status cannot be changed per DCF but agreeable to hospice. Discharge Planning Unclear discharge timetable as patient in critical condition and DCF making medical decisions for the patient. Hospice has seen and evaluated the patient. Per hospice cannot admit the patient until they speak with the DCF worker. CM spoke with DCF worker who stated that the patients daughter would need to be contacted, her number not working. Unclear who is actually responsible for making decisions for the patient. Problem List: (1) Myocardial infarction acute Status: Acute Plan: Cardiac arrest s/p CPR with ROSC on 08/20. Troponin as high as >40 and EKG with LBBB. Cardiology consulted and patient in too critical condition for intervention at this time. - 2D echo with diffuse hypokinesis and LVEF 25% - Continue baby ASA - Eliquis held secondary to rectal bleeding (2) Respiratory failure Status: Acute Plan: Patient intubated, awake, and alert. Vent management and CPAP trials per critical care. - CXR 08/20 showed low lung volumes with bibasilar consolidation (3) DVT (deep venous thrombosis) Status: Acute Plan: DVT and left brachial vein Discussed with Dr. Duoglas Subcutaneous heparin Monitor for any active GI bleed, and notify GI if any active bleeding noted. (4) Rectal bleeding Status: Resolved Plan: Pt with anemia and acute rectal bleeding was noted. - GI consulted. S/P normal EGD - Protonix 40 mg IV BID - Monitor for active bleeding - H&H stable. Continue to monitor (5) UTI (urinary tract infection) Status: Acute Plan: Repeat UA on 08/18 significant for hazy appearance, 30 protein, small occult blood, positive nitrites, large leukocyte esterase, many white blood cell clumps, moderate bacteria. Urine culture: Pseudomonas aeruginosa, sensitive to cefepime Continue Cefepime 1gm BID (08/19-) x anticipate duration of 10 days (6) Decubitus ulcer, stage 3 Status: Acute Plan: Patient with large decubitus ulcer over lower back; appears to be healing with good granulation tissue -Wound care consulted, appreciate recommendations * Collagenase ointment to be applied daily * Wound dressing changes daily per RN (7) Anemia Status: Resolved Plan: Likely secondary to chronic disease with GI bleeding. Hematolgoy consulted and patient on Procrit - FOBT + and GI consulted; EGD done 08/26 and was normal - Continue iron supplementation - Continue Protonix - Monitor H&H (8) Afpan-hr-zsegnev kidney injury Status: Acute Plan: Currently stable. - Nephrology consulted - Avoid nephrotoxic meds - Closely monitor I&O - Renal U/S unremarkable (9) Altered mental status Status: Chronic Plan: Pt likely with recent anoxic brain injury due to decreased brain perfusion secondary to cardiac arrest. He has had multiple ischemic strokes in the past including a lacunar infarct on 10/20/15. At patient's baseline he is able to communicate with yes or no answers. He has also been able to express himself using complete sentences. - CT head 08/21 with no acute disease - EEG showing changes with diffuse encephalopathy (10) Chronic systolic (congestive) heart failure Status: Chronic Plan: Patient with hx of CHF, EF 35% from September 2015. -Echo from 08/20 significant for EF of 20-25% with diffuse hypokinesis. -Lasix 40 mg IV twice a day (11) Coronary artery disease Status: Chronic Plan: Continue statin. Antihypertensives held in light of hypotensive shock. Eliquis held secondary to rectal bleeding. (12) HTN (hypertension) Status: Chronic Plan: Holding home meds in light of hypotension. (13) Low vitamin D level Status: Acute Plan: Vitamin D low at 11.6. -Cholecalciferol 2000 units po Daily -Calcium carbonate 500 mg BID (14) Diabetes mellitus Status: Chronic Plan: A1C 6.9 on 11/25/15, not on oral medications as an outpatient. - Continue to monitor - Low dose SSI (15) Nutrition, metabolism, and development symptoms Status: Acute Plan: - Fluids: Free water via PEG - Electrolytes: Monitor and replete as needed - Nutrition: Glucerna tube feeds with goal 1.5 at 60 ml/hr - DVT prophylaxis: Subcutaneous heparin. Monitor for GI bleed. - GI prophylaxis: on PPI dw Dr. Austin Problem Qualifiers (1) DVT (deep venous thrombosis): Qualified Code: I82.622 - Acute deep vein thrombosis (DVT) of brachial vein of left upper extremity (2) Anemia: Qualified Code: D50.8 - Other iron deficiency anemia (3) Altered mental status: Qualified Code: R41.82 - Altered mental status, unspecified altered mental status type (4) Coronary artery disease: Qualified Code: I25.10 - Coronary artery disease involving [place] heart without angina pectoris, unspecified vessel or lesion type (5) HTN (hypertension): Qualified Code: I10 - Essential hypertension (6) Diabetes mellitus: Qualified Code: E11.51 - Type 2 diabetes mellitus with diabetic peripheral angiopathy without gangrene, without long-term current use of insulin Claudette Cheng MD R3 August 29, 2016 09:46
--- NOTE | 2016-08-29 11:00 | HHI.HCPN ---
Palliative care attempting to further clarify treatment goals as hospice was consulted, however patient remains critically ill in ICU on mechanical ventilation. DCF unable to make end of life decisions. Therefore, palliative care attempting to clarify with legal appropriate health care proxy decision maker. ROBER Wharton discussed with Dr. Douglas. Will attempt to clarify as soon as possible, currently awaiting call back from [facility] case work aide. 1120am- spoke with DCF. DCF and legal report that health care proxy decision making per [place] statutes may be followed regarding end-of-life decisions. [facility] requests courtesy call with medical update if transition to comfort is decided. Attempted to contact patient's sister. #[phone] in EMR not a working number. Requested accurints report from [employer] [place]. Results per [employer] [place]: Tigist, sister: [phone] (not receiving incoming calls) or [phone] (not a working number). No other numbers found for family. [place] search produces #[phone] for Tigist. Not in service. Possible family member: Dulce Amado: Possible family member: Efren Amado #[phone] (left VM, awaiting call back ) #[phone] (rings busy) [phone] (wrong number) [phone] (not in service) [phone] (disconnected) Palliative care currently working on identifying appropriate decision maker. Kimberly Prabhakar MSW, [employer]IS[employer]MER August 29, 2016 11:00
--- NOTE | 2016-08-29 12:26 | HHI.HCPN ---
Reason for visit a. To assist with evaluation and management of symptoms including: Pain, dyspnea b. To assist medical decision maker(s) with: better understanding of current medical conditions; weighing benefits/burdens of medical treatment options; making medical treatment decisions. Subjective/Interval History Pt remains on a vent with CPAP. Had panendoscopy this morning to investigate bleed from last week. Results pending. At the time of my visit he is not awake yet from the procedure. Labs show improving Hgb. Potassiums are low today. Repleted. Wound on L foot now with dry eschar, no surrounding induration or erythema. Palliative Care SUPERVISOR VENEER is following w DCF re: decision making. While hospice was consulted, unable to proceed without code status. Advance Directives Living Will: Never completed Health Care Surrogate: Never completed Durable Power of Timber Spotter: Never completed Advance Directive Specifics Health Care Surrogate(s): Pt is Yisel Nation/RYAN casey saw operator. is decision maker in health care but they are unable to make decisions re: code status. Objective Vital Signs Date Time Temp Pulse Resp B/P Pulse Ox O2 Delivery O2 Flow Rate FiO2 08/29/16 11:03 99 35 08/29/16 10:00 87 08/29/16 08:00 98.4 85 12 120/83 99 08/29/16 08:00 40 08/29/16 08:00 86 08/29/16 07:51 99 35 08/29/16 06:00 95 08/29/16 04:03 100 40 08/29/16 04:00 99.6 99 20 115/75 100 08/29/16 04:00 99 08/29/16 04:00 40 08/29/16 02:04 100 40 08/29/16 02:00 98 08/29/16 00:00 98.3 95 18 115/81 100 08/29/16 00:00 40 08/29/16 00:00 95 08/28/16 22:00 98 08/28/16 20:58 100 40 08/28/16 20:00 95 08/28/16 20:00 99.7 95 19 120/74 100 08/28/16 20:00 40 08/28/16 18:07 95 08/28/16 16:43 100 40 08/28/16 16:00 40 08/28/16 16:00 93 08/28/16 16:00 99.4 94 15 118/87 100 08/28/16 14:00 92 08/28/16 12:34 100 40 08/28/16 12:10 40 08/28/16 12:10 98.7 92 19 135/89 100 Intake & Output 08/29/16 08/29/16 07:00 19:00 Intake Total 1915 ml Output Total 1600 ml Balance 315 ml IV Total 500 ml Tube Feeding 255 ml Other 1160 ml Output Urine Total 1600 ml # Bowel Movements 0 Physical Exam CONSTITUTIONAL/GENERAL: This is an thin male, in no apparent distress. TUBES/LINES/DRAINS: PEG tube ET tube, left femoral line, urinary catheter SKIN: No jaundice, rashes, or lesions. Ecchymoses on upper extremities. No wounds seen anteriorly. Skin temperature appropriate. Not diaphoretic. HEAD: Atraumatic. Normocephalic. EYES: Pupils are reactive ENT: Nose without bleeding or purulent drainage. Throat without visible erythema, exudates, masses, or lesions. NECK: Trachea midline. Supple, nontender. No palpable thyroid enlargement or nodularity. CARDIOVASCULAR: Regular rate and rhythm without murmurs, gallops, or rubs. No JVD. Pulses palpable on left foot RESPIRATORY/CHEST: Symmetric, unlabored respirations. Clear diminished to auscultation. Breath sounds equal bilaterally. No wheezes, rales, or rhonchi. GASTROINTESTINAL: PEG mid abdomen. Abdomen soft, non-tender, nondistended. No hepato-splenomegaly, or palpable masses. Bowel sounds present. GENITOURINARY: Without palpable bladder distension. Diehl catheter in place. MUSCULOSKELETAL: Right BKA, left foot with healing pressure sore on great toe; without clubbing, cyanosis, or edema. . LYMPHATICS: No palpable cervical or supraclavicular adenopathy. NEUROLOGICAL: sleeping, did not awaken to call of name or touch. Unable to determine cognition. Moves all extremities. PSYCHIATRIC: No obvious anxiety/depression. no apparent hallucinations or other psychotic thought process. Diagnostic Tests Laboratory Laboratory Tests Test 08/28/16 08/28/16 08/29/16 03:30 05:20 03:00 White Blood Count 11.1 TH/MM3 10.6 TH/MM3 (4.0-11.0) (4.0-11.0) Red Blood Count 3.50 MIL/MM3 3.62 MIL/MM3 (4.50-5.90) (4.50-5.90) Hemoglobin 9.5 GM/DL 9.9 GM/DL (13.0-17.0) (13.0-17.0) Hematocrit 28.8 % 29.5 % (39.0-51.0) (39.0-51.0) Mean Corpuscular Volume 82.3 FL 81.5 FL (80.0-100.0) (80.0-100.0) Mean Corpuscular Hemoglobin 27.1 PG 27.4 PG (27.0-34.0) (27.0-34.0) Mean Corpuscular Hemoglobin 32.9 % 33.6 % Concent (32.0-36.0) (32.0-36.0) Red Cell Distribution Width 16.9 % 16.7 % (11.6-17.2) (11.6-17.2) Platelet Count 288 TH/MM3 295 TH/MM3 (150-450) (150-450) Mean Platelet Volume 7.3 FL 7.1 FL (7.0-11.0) (7.0-11.0) Sodium Level 137 MEQ/L 138 MEQ/L (136-145) (136-145) Potassium Level 3.2 MEQ/L 3.1 MEQ/L (3.5-5.1) (3.5-5.1) Chloride Level 102 MEQ/L 102 MEQ/L (98-107) (98-107) Carbon Dioxide Level 22.9 MEQ/L 25.9 MEQ/L (21.0-32.0) (21.0-32.0) Anion Gap 12 MEQ/L (5-15) 10 MEQ/L (5-15) Blood Urea Nitrogen 31 MG/DL (7-18) 29 MG/DL (7-18) Creatinine 1.65 MG/DL 1.66 MG/DL (0.60-1.30) (0.60-1.30) Estimat Glomerular Filtration 43 ML/MIN (>89) 42 ML/MIN (>89) Rate Random Glucose 61 MG/DL 96 MG/DL (74-106) (74-106) Calcium Level 8.6 MG/DL 8.4 MG/DL (8.5-10.1) (8.5-10.1) Phosphorus Level 2.8 MG/DL 2.2 MG/DL (2.5-4.9) (2.5-4.9) Magnesium Level 1.5 MG/DL 1.4 MG/DL (1.5-2.5) (1.5-2.5) Blood Gas Puncture Site RT RADIAL Blood Gas Patient Temperature 98.6 Blood Gas HCO3 23 mmol/L (22-26) Blood Gas Base Excess -0.7 mmol/L (-2-2) Blood Gas Oxygen Saturation 97 % (90-100) Arterial Blood pH 7.45 (7.380-7.420) Arterial Blood Partial 34 mmHg (38-42) Pressure CO2 Arterial Blood Partial 165 mmHg Pressure O2 (61-120) Arterial Blood Oxygen Content 13.9 Vol % (12.0-20.0) Arterial Blood 1.3 % (0-4) Carboxyhemoglobin Arterial Blood Methemoglobin 0.8 % (0-2) Blood Gas Hemoglobin 9.9 G/DL (12.0-16.0) Oxygen Delivery Device VENTILATOR Blood Gas Ventilator Setting CPAP 8/+5 Blood Gas Inspired Oxygen 40 % Neutrophils (%) (Auto) 78.6 % (16.0-70.0) Lymphocytes (%) (Auto) 9.0 % (9.0-44.0) Monocytes (%) (Auto) 9.4 % (0.0-8.0) Eosinophils (%) (Auto) 2.5 % (0.0-4.0) Basophils (%) (Auto) 0.5 % (0.0-2.0) Neutrophils # (Auto) 8.3 TH/MM3 (1.8-7.7) Lymphocytes # (Auto) 0.9 TH/MM3 (1.0-4.8) Monocytes # (Auto) 1.0 TH/MM3 (0-0.9) Eosinophils # (Auto) 0.3 TH/MM3 (0-0.4) Basophils # (Auto) 0.1 TH/MM3 (0-0.2) CBC Comment DIFF FINAL Differential Comment Result Diagram: 08/29/16 0300 08/29/16 0300 Procedures Panendoscopy 08/29/16 Assessment and Plan Disease Oriented Problem List: (1) History of lacunar cerebrovascular accident (2) HTN (hypertension) (3) Cardiac arrest (4) Rectal bleeding (5) Diabetes (6) Hypertension (7) Venous stasis ulcer of left lower extremity Symptom Scale: (1) Pain 0-10 Scale: 4 Comment: Wound L great toe; R BKA; bed bound with limited movement (2) Dyspnea 0-10 Scale: Unable to quantify Comment: stable - on CPAP Pertinent Non-Medical Issues Psychosocial: 61-year-old male with one sister who was found in his home with self-care neglect. 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 Spiritual: Unknown Legal: DCF nursery worker is Yisel Nation is health care decision maker Ethical issues impacting care: Pt is awake, unable to provide direction in care. DCF unable to make decisions re: life/ matters including Code status. Important Contacts Yisel Nation, case management for DCF Prognosis Prognosis is guarded in light of his long-standing cardiac disease complicated by diabetes. 08/20/16 Myocardial infarction with cardiac arrest and ACLS protocol x 4 attempts. Code Status: Full Code Plan Decision Maker: Yisel Nation DCF casey saw operator [phone] Code Status: Full code Family Discussion: PC SUPERVISOR VENEER is in contact w DCF re: decision making or family. Symptoms: Pain secondary to decubitus as well as long-term bedrest Dyspnea secondary to respiratory failure Palliative care phone number provided - will follow during hospital stay. Attestation To help prompt me to consider important information that might be impacting today's encounter and assessment, information from prior notes written by myself or my colleagues may have been "brought forward" into today's note. My signature on this note, however, is an attestation that I personally performed the exam, history, and/or decision-making noted today, and, unless otherwise indicated, the interactions with patient, family, and staff as well as the review of records all occurred today. I also attest that the listed assessment and stated plan reflect my best clinical judgment today based on the combination of historical information, prior notes, and today's exam/ interactions. When time spent is documented, it refers only to time spent today by the signer, or if indicated, combined time spent today by collaborating physician/nurse practitioner. Cecy Ding August 29, 2016 12:25
[2016-08-29] MEDS: CEFEPIME INJ 1,000 MG in SODIUM CHLORIDE 0.9% INJ 100 ML IV SCH (14:09)
[2016-08-29] MEDS: MIRTAZAPINE 15 MG TAB PO SCH (21:38)
[2016-08-29] MEDS: ATORVASTATIN 80 MG TAB PO SCH (21:38)
--- NOTE | 2016-08-29 22:45 | EKG ---
Date Performed: 08/29/2016 Time Performed: 03:00:32 PTAGE: 61 years EKG: Sinus tachycardia. Left axis deviation IV conduction defect Possible anteroseptal infarct - age undetermined Inferior/lateral ST-T changes are nonspecific Abnormal ECG PREVIOUS TRACING : 08/20/2016 07.33 Compared to prior tracing no significant change DOCTOR: Giovani Hines Interpretating Date/Time 08/29/2016 22:45:15
[2016-08-30] VITALS (18 sets, daily range): BP systolic 104–132; BP diastolic 72–88; PULSE 88–98; RESP 11–17; TEMP 94.4–99.4; O2SAT 100
[2016-08-30] MEDS: FREE WATER G-TUBE SCH ×6 (00:05→20:15)
[2016-08-30] MEDS: PANTOPRAZOLE SODIUM 40 MG VIAL IV PUSH SCH ×2 (00:28→11:42)
[2016-08-30 02:34] LABS: AUTOMATED NEUTROPHIL # 7.9 TH/MM3 (1.8-7.7); BASOPHIL # 0.1 TH/MM3 (0-0.2); BASOPHIL % 0.6 % (0.0-2.0); EOSINOPHIL # 0.3 TH/MM3 (0-0.4); EOSINOPHIL % 2.5 % (0.0-4.0); HEMATOCRIT 31.6 % (39.0-51.0); HEMO FLAGS DIFF FINAL; LYMPH % 10.5 % (9.0-44.0); LYMPHOCYTE # 1.1 TH/MM3 (1.0-4.8); MEAN CELL VOLUME 81.5 FL (80.0-100.0); MEAN CORPUSCULAR HEMOGLOBIN 27.6 PG (27.0-34.0); MEAN CORPUSCULAR HGB CONC 33.8 % (32.0-36.0); MONO % 8.6 % (0.0-8.0); NEUT % 77.8 % (16.0-70.0); PLATELET COUNT 308 TH/MM3 (150-450); RED BLOOD COUNT 3.88 MIL/MM3 (4.50-5.90); RED CELL DISTRIBUTION WIDTH 17.1 % (11.6-17.2); WHITE BLOOD COUNT 10.1 TH/MM3 (4.0-11.0)
[2016-08-30 02:55] LABS: BICARBONATE 27.6 MEQ/L (21.0-32.0); MAGNESIUM 1.9 MG/DL (1.5-2.5)
[2016-08-30] MEDS: INSULIN ASPART SUPPLEMENTAL SCALE SQ SCH ×4 (06:45→21:55)
[2016-08-30] MEDS: FERROUS SULFATE 325 MG (65 MG ELEMENTAL IRON) TAB PO SCH (08:00)
[2016-08-30] MEDS: levETIRAcetam INJ 500 MG in SODIUM CHLORIDE 0.9% INJ 100 ML IV SCH ×2 (08:31→21:52)
[2016-08-30] MEDS: FUROSEMIDE 40 MG/4 ML VIAL IV PUSH SCH ×2 (08:32→18:33)
[2016-08-30] MEDS: HEPARIN SODIUM - SQ 10,000 UNITS/ML VIAL SQ SCH ×2 (08:32→21:55)
[2016-08-30] MEDS: CHOLECALCIFEROL (VIT D3) 1000 UNIT TAB PO SCH (08:33)
[2016-08-30] MEDS: ASPIRIN 81 MG CHEW TAB G-TUBE SCH (08:33)
[2016-08-30] MEDS: COLLAGENASE OINT 30 GM TUBE TOPICAL SCH (08:33)
[2016-08-30] MEDS: CALCIUM CARBONATE 500 MG CHEWABLE TAB CHEW SCH ×2 (08:33→21:51)
[2016-08-30] MEDS: SODIUM CHLORIDE 0.9% FLUSH 10 ML FLUSH IV FLUSH SCH ×2 (08:34→21:55)
--- NOTE | 2016-08-30 08:37 | HHI.FPPN ---
Subjective Remarks Intubated and sleepy this morning. No acute events. Objective Vitals Vital Signs Date Time Temp Pulse Resp B/P Pulse Ox O2 Delivery O2 Flow Rate FiO2 08/30/16 08:15 100 35 08/30/16 08:15 35 08/30/16 06:00 92 08/30/16 04:00 98.8 91 16 129/86 100 08/30/16 04:00 88 08/30/16 04:00 35 08/30/16 03:41 100 35 08/30/16 03:30 35 08/30/16 02:00 88 08/30/16 00:24 100 35 08/30/16 00:00 35 08/30/16 00:00 98.9 91 16 132/88 100 08/30/16 00:00 91 08/29/16 22:31 100 35 08/29/16 22:00 86 08/29/16 20:00 35 08/29/16 20:00 99.7 86 10 94/67 100 08/29/16 20:00 87 08/29/16 18:00 88 08/29/16 16:15 100 35 08/29/16 16:00 98.6 85 16 128/86 100 08/29/16 16:00 40 08/29/16 16:00 85 08/29/16 14:00 83 08/29/16 12:00 87 08/29/16 12:00 40 08/29/16 12:00 97.7 92 19 107/77 100 08/29/16 11:03 99 35 08/29/16 10:00 87 I/O 08/29/16 08/29/16 08/29/16 08/30/16 08/30/16 08/30/16 07:00 15:00 23:00 07:00 15:00 23:00 Intake Total 1251 ml 1225 ml 976 ml 896 ml Output Total 450 ml 1250 ml 1400 ml 1400 ml Balance 801 ml -25 ml -424 ml -504 ml IV Total 241 ml 668 ml 421 ml 70 ml Tube Feeding 210 ml 257 ml 195 ml 226 ml Tube Irrigant 60 ml Other 800 ml 300 ml 300 ml 600 ml Output Urine Total 450 ml 1250 ml 1400 ml 1400 ml # Bowel Movements 0 Result Diagram: 5/2/17 0220 5/2/17 0220 Objective Remarks GENERAL: male laying in bed orally intubated. SKIN: Warm and dry. Appears pale. HEENT: Tracks eyes. PERRLA. HEART: RRR no m/r/g. LUNGS: Good air movement. Anterior lung sounds coarse. ABDOMEN: Hypoactive bowel sounds. Soft, NT, ND. PEG tube in place. EXTREMITIES: R BKA. LLE without edema. NEURO: Responding to UE commands. Date of Removal: Aug 23, 2016 Line: Central Venous Catheter Side: Left Location: Femoral A/P Assessment and Plan 61 yo M, hx of prolonged hospital stay from September 2015 - July 18, 2016, having returned to the hospital on July 22 for fall. Admitted for AMS, rhabdomyolysis , dehydration, hypernatremia and anemia. PEG tube has been placed due to decreased PO intake and dehydration. Patient is currently in critical condition due to ischemic cardiac event. Cardiology has been consulted, no interventions anticipated until pt shows clinical improvement. DCF making decisions for patient and palliative care and case management working with communication. Code status cannot be changed per DCF but agreeable to hospice. Discharge Planning Unclear discharge timetable as patient in critical condition and DCF making medical decisions for the patient. Hospice has seen and evaluated the patient. Per hospice cannot admit the patient until they speak with the DCF worker. CM spoke with DCF worker who stated that the patients daughter would need to be contacted, her number not working. Problem List: (1) Myocardial infarction acute Status: Acute Plan: Cardiac arrest s/p CPR with ROSC on 08/20. Troponin as high as >40 and EKG with LBBB. Cardiology consulted and patient in too critical condition for intervention at this time. - 2D echo with diffuse hypokinesis and LVEF 25% - Continue baby ASA - Eliquis held secondary to rectal bleeding (2) Respiratory failure Status: Acute Plan: Patient intubated, awake, and alert. Vent management and CPAP trials per critical care. - CXR 08/20 showed low lung volumes with bibasilar consolidation (3) DVT (deep venous thrombosis) Status: Acute Plan: DVT and left brachial vein Subcutaneous heparin Monitor for any active GI bleed, and notify GI if any active bleeding noted. (4) Rectal bleeding Status: Resolved Plan: Pt with anemia and acute rectal bleeding was noted. - GI consulted. S/P normal EGD - Protonix 40 mg IV BID - Monitor for active bleeding - H&H stable. Continue to monitor (5) UTI (urinary tract infection) Status: Acute Plan: Repeat UA on 08/18 significant for hazy appearance, 30 protein, small occult blood, positive nitrites, large leukocyte esterase, many white blood cell clumps, moderate bacteria. Urine culture: Pseudomonas aeruginosa, sensitive to cefepime Continue Cefepime 1gm BID (08/19-) x anticipate duration of 10 days (6) Decubitus ulcer, stage 3 Status: Acute Plan: Patient with large decubitus ulcer over lower back; appears to be healing with good granulation tissue -Wound care consulted, appreciate recommendations * Collagenase ointment to be applied daily * Wound dressing changes daily per RN (7) Anemia Status: Resolved Plan: Likely secondary to chronic disease with GI bleeding. Hematology consulted and patient on Procrit - FOBT + and GI consulted; EGD done 08/26 and was normal - Continue iron supplementation - Continue Protonix - Monitor H&H (8) [id number] kidney injury Status: Acute Plan: Currently stable. - Nephrology consulted - Avoid nephrotoxic meds - Closely monitor I&O - Renal U/S unremarkable (9) Altered mental status Status: Chronic Plan: Pt likely with recent anoxic brain injury due to decreased brain perfusion secondary to cardiac arrest. He has had multiple ischemic strokes in the past including a lacunar infarct on 10/20/15. At patient's baseline he is able to communicate with yes or no answers. He has also been able to express himself using complete sentences. - CT head 08/21 with no acute disease - EEG showing changes with diffuse encephalopathy (10) Chronic systolic (congestive) heart failure Status: Chronic Plan: Patient with hx of CHF, EF 35% from September 2015. -Echo from 08/20 significant for EF of 20-25% with diffuse hypokinesis. -Lasix 40 mg IV twice a day (11) Coronary artery disease Status: Chronic Plan: Continue statin. Antihypertensives held in light of hypotensive shock. Eliquis held secondary to rectal bleeding. (12) HTN (hypertension) Status: Chronic Plan: Holding home meds in light of hypotension. (13) Low vitamin D level Status: Acute Plan: Vitamin D low at 11.6. -Cholecalciferol 2000 units po Daily -Calcium carbonate 500 mg BID (14) Diabetes mellitus Status: Chronic Plan: A1C 6.9 on 11/25/15, not on oral medications as an outpatient. - Continue to monitor - Low dose SSI (15) Nutrition, metabolism, and development symptoms Status: Acute Plan: - Fluids: Free water via PEG - Electrolytes: Monitor and replete as needed - Nutrition: Glucerna tube feeds with goal 1.5 at 60 ml/hr - DVT prophylaxis: Subcutaneous heparin. Monitor for GI bleed. - GI prophylaxis: on PPI Problem Qualifiers (1) DVT (deep venous thrombosis): Qualified Code: I82.622 - Acute deep vein thrombosis (DVT) of brachial vein of left upper extremity (2) Anemia: Qualified Code: D50.8 - Other iron deficiency anemia (3) Altered mental status: Qualified Code: R41.82 - Altered mental status, unspecified altered mental status type (4) Coronary artery disease: Qualified Code: I25.10 - Coronary artery disease involving [place] heart without angina pectoris, unspecified vessel or lesion type (5) HTN (hypertension): Qualified Code: I10 - Essential hypertension (6) Diabetes mellitus: Qualified Code: E11.51 - Type 2 diabetes mellitus with diabetic peripheral angiopathy without gangrene, without long-term current use of insulin Balbir Nguyễn MD R2 August 30, 2016 08:36
--- NOTE | 2016-08-30 10:28 | HHI.HCPN ---
Able to speak with potential number for Efren Amado (see previous note), reported wrong number. Requested accurints report for Efren Amado. Per BUSINESS MANAGEMENT PROFESSOR accurints shows no additional numbers for Tigist or Efren. Accurints ran for Efren shows same relatives, no numbers. Accurints for Tigist shows same relatives, no numbers. Palliative care continuing to work on appropriate decision maker. Kimberly Prabhakar, TC OPERATOR August 30, 2016 10:28
--- NOTE | 2016-08-30 12:01 | HHI.CCPN ---
Subjective Remarks/Hospital Course 08/20: 61-year-old male admitted on 07/25/2016 by family medicine service after he was found at home by DCF not being able to take care of himself lying on the ground in his own feces. Previously patient was in the hospital from October 15, 2015 to July 18, 2016. During this hospitalization he was noted to be anemic secondary to anemia of chronic disease as well as possible myelosuppression for which she received blood transfusions and Procrit and was evaluated by hematology. He also has a PEG tube placed during this admission for maintaining his nutritional status. His neurologic status fluctuates and he goes from conversing to being encephalopathic. He has had multiple strokes and does have coronary artery disease with previous CABG and stenting. He is on Eliquis for anticoagulation and does have an ischemic cardiomyopathy as well as diabetes mellitus. He was recently started on Rocephin for a UTI. This morning patient was noted to have hypotension and some altered mental status. He was given fluid bolus and a chest x-ray was done earlier. Subsequently around 7 AM CODE BLUE cardiac arrest code was called for which I responded to the floor. At the time of my arrival patient was being ventilated with bag mask ventilation. He initially had agonal respirations. He was noted to be in asystole on the monitor subsequently so CPR/ACLS protocol was initiated. Patient had return of circulation following about 15 minutes of ACLS protocol and was noted to have a left bundle branch block which appeared old. He was started on an epinephrine drip for hypotension and transported to [facility]. Shortly following his arrival to the unit he underwent another episode of bradycardia and subsequently lost his pulse. CPR/ACLS protocol was initiated and he had return of spontaneous circulation following about 5 minutes of ACLS. He had a central line and a femoral arterial line placed emergently by myself. Stat labs were sent as well as ABG. Patient was continued on mechanical ventilation. He subsequently had 2 further episodes of cardiac arrest from which he was successfully resuscitated. History was obtained by reviewing records and discussion with family medicine team and floor as well as floor nursing staff. 08/21: Remains sedated, orally intubated on mechanical ventilation. Sedation held this morning to assess neurologic status. On dopamine 5 mics per KG per minute. Off other pressors at this time. Troponin greater than 40 this morning. On Protonix drip which was started yesterday for some rectal bleeding which is now stopped. EF 25% on 2-D echo done yesterday. Eliquis continues to be on hold. On aspirin. 08/22: Dopamine 2.5mcgs weaned off this morning. The patient appears hemodynamically stable, normotensive. 08/23: Tmax 99.7. Dopamine remained off overnight, patient remains normotensive. Overnight the patient began to follow commands moving his extremities 4. CPAP trials to begin today. Physical therapy order for functional maintenance. Leukocytosis trending down. Will discontinue femoral central line and arterial line today. 08/24: Afebrile. CPAP was initiated today, the pain patient continues on CPAP since 8:30 this morning 10/5/FiO2 of 30%. He remains hemodynamically stable at this point, we'll reconsult GI regarding possible upper endoscopy and colonoscopy, defer recommendations regarding heparin. 08/25: Afebrile. The patient continues on CPAP trials, planned meeting with palliative care and DCF unsuccessful today rescheduling will be attempted. The patient is tracking and following commands. 08/26: Tmax 99 .8. The patient underwent venous Doppler ultrasound of extremities yesterday, negative results. The patient scheduled to undergo EGD today secondary to previous GI bleed. The patient was placed out of bed into recliner chair today. Plan for hospice consult palliative care team with conversation with DCF. 08/27: Patient continues to be maintained on CPAP trials, with discontinuation. Plan for SBT parameters in the a.m., and a trial of extubation. The patient's interacting nodding head to yes and no questions appropriately. Patient normotensive. Hospice consult initiated by [facility] medicine. 08/28: Patient remained on CPAP all night, however has several periods of apnea and attempted to self extubate this morning. Heparin subcutaneous was initiated , patient was placed on tube feeds. 08/29: Patient experienced multiple episodes of wide complex V tachycardia during the night. Electrolytes repleted, the patient continues on CPAP with periods of apnea. Hospice consult plan for today. 08/30: Continues periods of apnea. Due to social situation regarding consent we will go ahead an perform tracheostomy to at least promote transition. Objective Vital Signs Date Time Temp Pulse Resp B/P Pulse Ox O2 Delivery O2 Flow Rate FiO2 08/30/16 11:32 100 35 08/30/16 10:00 98 08/30/16 08:00 99.4 13 108/72 Intake and Output 08/29/16 08/29/16 08/30/16 08:00 16:00 00:00 Intake Total 1251 ml 1225 ml 976 ml Output Total 450 ml 1250 ml 1400 ml Balance 801 ml -25 ml -424 ml Result Diagram: 08/30/16 0220 08/30/16 0220 Imaging Last 24 hours Impressions Chest X-Ray 08/20/16 0500 Signed Impressions: Service Date/Time: Saturday, August 20, 2016 05:06 - CONCLUSION: Low lung volumes with bibasilar consolidation. Consolidation could relate to atelectasis or infiltrates. Daryl Prabhakar Jr., MD Chest X-Ray 08/20/16 0000 Signed Impressions: Service Date/Time: Saturday, August 20, 2016 08:15 - CONCLUSION: 1. ET tube in good position. 2. Mild diffuse increased interstitial markings likely representing edema. Camacho Santana MD Last Impressions Chest X-Ray 08/20/16 0500 Signed Impressions: Service Date/Time: Saturday, August 20, 2016 05:06 - CONCLUSION: Low lung volumes with bibasilar consolidation. Consolidation could relate to atelectasis or infiltrates. Daryl Prabhakar Jr., MD Bone Osseous Survey 07/31/16 0000 Signed Impressions: Service Date/Time: Sunday, July 31, 2016 16:09 - CONCLUSION: Unremarkable bone survey. Incidental note made of median sternotomy. Multiple gallstones. Richard Gerber MD Head CT 07/25/16 1644 Signed Impressions: Service Date/Time: Monday, July 25, 2016 17:19 - CONCLUSION: 1. Lacunar infarcts bilaterally, worse on the left. 2. Negative for an acute process. Didier Clay MD FACR Renal Ultrasound 07/25/16 0000 Signed Impressions: Service Date/Time: Monday, July 25, 2016 20:55 - CONCLUSION: 1. Tiny nonobstructing calcified left renal calculi. 2. No hydronephrosis or solid renal mass. Efren Cleaning MD Objective Remarks Neuro: Alert and responsive, moving extremities 4. Localizing/ withdraws, orally intubated. Pallor present, no icterus, tongue/ mucosa moist. Tacks with eyes. Neck: No JVD, trachea midline Chest/Pulm: on mech vent, good air entry bilaterally, clear to auscultation bilaterally, no wheezing. CVS: S1-S2 regular, no murmur, rubs or gallops GI/abdomen: soft, nontender, bowel sounds sluggish. PEG tube in place Extremities: warm bilaterally, trace bilateral edema upper and lower extremities. Date of Removal: Aug 23, 2016 Line: Central Venous Catheter Side: Left Location: Femoral A/P Assessment and Plan 61-year-old male with: Cardiac arrest status post CPR Acute respiratory failure on mechanical ventilation Pulmonary edema Shock(resolved) Encephalopathy suspected anoxic brain damage in the setting of poor baseline neurologic function: Elevated troponin with acute WI Ischemic cardiomyopathy History of CHF with EF 35% PAT/ CKD History of strokes Anemia of chronic disease Diabetes mellitus Myelosuppression Monoclonal gammopathy Sacral decubitus ulcer Status post PEG tube placement UTI Possible sepsis BKA right lower extremity Plan: Neuro: Currently all sedation, monitor neuro status. Patient following some commands moving extremities 4. Interacting to yes and no questions History of multiple strokes . Head CT negative for bleed (08/21) was on Eliquis for prior strokes however currently on hold due to rectal bleeding. Restart anticoagulation when okay with GI. Currently still on hold Cardiovascular: Off epinephrine/Levophed. Dopamine discontinued 08/22. EKG with left bundle branch block. Troponin greater than 40 noted. Cardiology: Dr. Damián Arias not planning any intervention at this time due to poor neurologic status and elevated creatinine. Continue Aspirin. Eliquis last dose on 08/19 pm - continue holding due to rectal bleed 08/20. 2D echo with diffuse hypokinesis, LVEF 25%() Pulmonary: Continue mechanical ventilation, vent bundle, bronchodilators as needed. Continue CPAP trials DuoNeb treatments every 6 hours scheduled every 2 hours when necessary Plan for trial of extubation discontinued, secondary to patient has periods of apnea Plan tracheostomy. GI/liver: Continue PEG feeds with Glucerna @ 30cc/hr. Advance to goal. Currently on hold 08/26 EGD Zofran for nausea Renal/: Given Lasix 80 mg IV stat on 08/20 for pulmonary edema. Strict intake output Monitor and replete electrolytes follow BUN creatinine. Will continue lasix to maintain even to slightly negative fluid balance Endocrine: SSI for glycemic control Heme: Transfused 1 unit PRBC on 08/20. Follow CBC. Being followed by hematology. Transfused 1 unit PRBCs 08/20 in view of acute WI to bring hemoglobin closer to 9 g percent ID: On Cefepime for UTI. Urine culture with Pseudomonas recently. Repeat cultures sent. MSK: Status post BKA 08/26 venous Doppler ultrasound Upper extremity-DVT left brachial vein, superficial thrombosed basilic and cephalic vein, B/L lower extremities negative Prophylaxis: PPI/SCDs. SQ heparin initiated 08/28 with GI clearance Lines: Left femoral central venous catheter, left femoral arterial line placed on 08/20-08/24 Prognosis appears extremely poor. Dispo: Plan for trial of extubation in a.m. , patient successfully continue CPAP trials. DCF assigned as decision maker for patient, palliative care team meeting via telephone 08/26/16, plan for hospice consult. If patient does not plan to go to hospice will have to consider tracheostomy. Discussed with family medicine service, Discussed with ICU nursing staff. Apnea spells continue, I will perform tracheostomy Bobby Frost MD August 30, 2016 12:01
[2016-08-30] MEDS: CEFEPIME INJ 1,000 MG in SODIUM CHLORIDE 0.9% INJ 100 ML IV SCH (14:45)
--- NOTE | 2016-08-30 17:18 | PD.ONC.PN ---
Subjective Subjective Remarks Remains on vent. No report of bleeding. Objective Data Date Time Temp Pulse Resp B/P Pulse Ox O2 Delivery O2 Flow Rate FiO2 08/30/16 17:03 100 35 08/30/16 16:00 95 08/30/16 16:00 94.4 95 17 104/76 100 08/30/16 16:00 35 08/30/16 14:00 93 08/30/16 12:00 98.7 93 11 113/82 100 08/30/16 12:00 93 08/30/16 12:00 35 08/30/16 11:32 100 35 08/30/16 10:00 98 08/30/16 08:15 100 35 08/30/16 08:15 35 08/30/16 08:00 98 08/30/16 08:00 99.4 97 13 108/72 100 08/30/16 08:00 35 08/30/16 06:00 92 08/30/16 04:00 98.8 91 16 129/86 100 08/30/16 04:00 88 08/30/16 04:00 35 08/30/16 03:41 100 35 08/30/16 03:30 35 08/30/16 02:00 88 08/30/16 00:24 100 35 08/30/16 00:00 35 08/30/16 00:00 98.9 91 16 132/88 100 08/30/16 00:00 91 08/29/16 22:31 100 35 08/29/16 22:00 86 08/29/16 20:00 35 08/29/16 20:00 99.7 86 10 94/67 100 08/29/16 20:00 87 08/29/16 18:00 88 08/30/16 08/30/16 08/30/16 07:00 15:00 23:00 Intake Total 896 ml 1086 ml Output Total 1400 ml 550 ml Balance -504 ml 536 ml Result Diagram: 08/30/1621908/30/16219 Laboratory Results Laboratory Tests Test 08/30/16 02:20 White Blood Count 10.1 TH/MM3 Red Blood Count 3.88 MIL/MM3 Hemoglobin 10.7 GM/DL Hematocrit 31.6 % Mean Corpuscular Volume 81.5 FL Mean Corpuscular Hemoglobin 27.6 PG Mean Corpuscular Hemoglobin 33.8 % Concent Red Cell Distribution Width 17.1 % Platelet Count 308 TH/MM3 Mean Platelet Volume 7.1 FL Neutrophils (%) (Auto) 77.8 % Lymphocytes (%) (Auto) 10.5 % Monocytes (%) (Auto) 8.6 % Eosinophils (%) (Auto) 2.5 % Basophils (%) (Auto) 0.6 % Neutrophils # (Auto) 7.9 TH/MM3 Lymphocytes # (Auto) 1.1 TH/MM3 Monocytes # (Auto) 0.9 TH/MM3 Eosinophils # (Auto) 0.3 TH/MM3 Basophils # (Auto) 0.1 TH/MM3 CBC Comment DIFF FINAL Differential Comment Sodium Level 139 MEQ/L Potassium Level 4.0 MEQ/L Chloride Level 104 MEQ/L Carbon Dioxide Level 27.6 MEQ/L Anion Gap 7 MEQ/L Blood Urea Nitrogen 28 MG/DL Creatinine 1.63 MG/DL Estimat Glomerular Filtration 43 ML/MIN Rate Random Glucose 85 MG/DL Calcium Level 8.6 MG/DL Phosphorus Level 3.0 MG/DL Magnesium Level 1.9 MG/DL Administered Medications Medications (Trade) Dose Ordered Sig/Estuardo Route PRN Reason Start Time Stop Time Status Last Admin Dose Admin Apixaban (Eliquis) 2.5 mg BID PO 07/25/16 21:00 Hold 08/19/16 21:20 Atorvastatin Calcium (Lipitor) 80 mg HS PO 07/25/16 21:00 08/29/16 21:38 Carvedilol (Coreg) 25 mg BID PO 07/25/16 21:00 Hold 08/19/16 21:20 Ferrous Sulfate (Ferrous Sulfate) 325 mg DAILY@08 PO 07/26/16 08:00 08/28/16 08:18 Isosorbide Mononitrate (Imdur) 60 mg HS PO 07/25/16 21:00 Hold 08/19/16 21:19 Sodium Chloride (NS Flush) 2 ml BID IV FLUSH 07/25/16 21:00 08/30/16 08:34 Amlodipine Besylate (Norvasc) 10 mg DAILY PO 07/28/16 09:00 Hold 08/18/16 09:59 Cholecalciferol (Vitamin D3) 2,000 units DAILY PO 07/28/16 09:00 08/30/16 08:33 Mirtazapine (Remeron) 15 mg HS PO 08/03/16 21:00 08/29/16 21:38 Collagenase (Santyl Oint) 1 applic DAILY TOPICAL 08/04/16 14:30 08/30/16 08:33 Calcium Carbonate 500 mg 500 mg Q12HR CHEW 08/12/16 09:00 08/30/16 08:33 Levetriacetam/ Sodium Chloride (Keppra Inj/NS Inj) 105 ml @ 420 mls/hr Q12HR IV 08/20/16 21:00 08/30/16 08:31 Aspirin (Aspirin Chew) 81 mg DAILY G-TUBE 08/21/16 09:00 08/30/16 08:33 Dextrose (D50w (Vial) Inj) 25 ml UNSCH PRN IV PUSH HYPOGLYCEMIA-SEE COMMENTS 08/21/16 09:30 08/28/16 17:08 Furosemide (Lasix Inj) 40 mg BID@09,18 IV PUSH 08/21/16 18:00 08/30/16 08:32 Pantoprazole Sodium 40 mg 40 mg Q12H IV PUSH 08/22/16 12:15 08/30/16 11:42 Cefepime HCl/ Sodium Chloride (Maxipime Inj/NS Inj) 100 ml @ 200 mls/hr Q24H IV 08/23/16 14:00 08/30/16 14:45 Water (Free Water) VOLUME: 300 ML Q4HR G-TUBE 08/23/16 16:00 08/30/16 16:00 Heparin Sodium (Porcine) 5000 units 5,000 units Q12HR SQ 08/28/16 10:00 08/30/16 08:32 Potassium Chloride (KCl 20 Meq Premix Inj) 100 ml @ 50 mls/hr Q2H PRN IV For Potassium 2.8 - 3.2 mEq/L 08/29/16 04:15 08/29/16 12:38 Potassium Bicarb/ Potassium Chloride 50 meq 50 meq UNSCH PRN PO For Potassium 3.3 - 3.5 mEq/L 08/29/16 04:15 08/29/16 04:22 Sodium Phosphate/ Sodium Chloride (Sodium Phosphate Inj/NS 250 ml Inj) 250 ml @ 42 mls/hr UNSCH PRN IV For Phosphorus < 2.5 mg/dL 08/29/16 04:15 08/29/16 11:13 Objective Remarks GENERAL: On vent, not responding this am. SKIN: Warm and dry. HEAD: Normocephalic. EYES: No scleral icterus. No injection or drainage. NECK: Supple, trachea midline. No JVD or lymphadenopathy. LYMPHATIC: No adenopathy. CARDIOVASCULAR: Regular rate and rhythm without murmurs. RESPIRATORY: Breath sounds equal bilaterally. No accessory muscle use. GASTROINTESTINAL: Abdomen soft, non-tender, nondistended. EXTREMITIES: No cyanosis, or edema. Right BKA MUSCULOSKELETAL: Adequate muscle tone. Assessment/Plan Problem List: (1) Anemia Status: Resolved Plan: -- due anemia of chronic renal disease --08/02--> s/p Procrit 20K units + 1 unit pRBC on 08/02 --08/09-->procrit 20K units --08/16-->Procrit 20K units --08/23-->Procrit 30K units --08/30 Hgb >10, no need for procrit. 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 Assessment 61 y/o male who was brought in by [facility] after DCF found him at home unable to care for himself. Plan 1. monitor CBC intermittently 2. No need for procrit this week. Problem Qualifiers (1) Anemia: Qualified Code: D50.8 - Other iron deficiency anemia Andrzej De Los Santos MD August 30, 2016 17:18
[2016-08-30] MEDS: ATORVASTATIN 80 MG TAB PO SCH (21:51)
[2016-08-30] MEDS: MIRTAZAPINE 15 MG TAB PO SCH (21:51)
[2016-08-31] VITALS (19 sets, daily range): BP systolic 101–138; BP diastolic 58–79; PULSE 86–111; RESP 13–18; TEMP 97.8–99.3; O2SAT 98–100
[2016-08-31] MEDS: PANTOPRAZOLE SODIUM 40 MG VIAL IV PUSH SCH ×3 (00:39→23:59)
[2016-08-31] MEDS: FREE WATER G-TUBE SCH ×7 (00:40→23:59)
[2016-08-31 04:15] LABS: BICARBONATE 29.1 MEQ/L (21.0-32.0); MAGNESIUM 1.7 MG/DL (1.5-2.5); POTASSIUM 3.9 MEQ/L (3.5-5.1)
[2016-08-31] MEDS: INSULIN ASPART SUPPLEMENTAL SCALE SQ SCH ×4 (07:00→20:54)
[2016-08-31] MEDS: FERROUS SULFATE 325 MG (65 MG ELEMENTAL IRON) TAB PO SCH (08:00)
[2016-08-31] MEDS: ASPIRIN 81 MG CHEW TAB G-TUBE SCH (08:59)
[2016-08-31] MEDS: CALCIUM CARBONATE 500 MG CHEWABLE TAB CHEW SCH ×2 (08:59→20:24)
[2016-08-31] MEDS: HEPARIN SODIUM - SQ 10,000 UNITS/ML VIAL SQ SCH ×2 (09:00→20:25)
[2016-08-31] MEDS: CHOLECALCIFEROL (VIT D3) 1000 UNIT TAB PO SCH (09:00)
[2016-08-31] MEDS: COLLAGENASE OINT 30 GM TUBE TOPICAL SCH (09:00)
[2016-08-31] MEDS: FUROSEMIDE 40 MG/4 ML VIAL IV PUSH SCH ×2 (09:00→18:02)
[2016-08-31] MEDS: levETIRAcetam INJ 500 MG in SODIUM CHLORIDE 0.9% INJ 100 ML IV SCH ×2 (09:00→20:24)
[2016-08-31] MEDS: SODIUM CHLORIDE 0.9% FLUSH 10 ML FLUSH IV FLUSH SCH ×2 (09:00→20:25)
--- NOTE | 2016-08-31 10:12 | HHI.FPPN ---
Subjective Remarks Case discussed with Dr. Frost and bedside nurse. Tracheostomy planned for tomorrow at 10 PM. Objective Vitals Vital Signs Date Time Temp Pulse Resp B/P Pulse Ox O2 Delivery O2 Flow Rate FiO2 08/31/16 08:10 100 35 08/31/16 06:00 89 08/31/16 04:00 35 08/31/16 04:00 98.8 90 15 138/58 100 08/31/16 04:00 90 08/31/16 03:39 100 35 08/31/16 02:00 98 08/31/16 00:14 98 35 08/31/16 00:00 111 08/31/16 00:00 98.6 101 15 118/58 100 08/31/16 00:00 35 08/30/16 22:00 96 08/30/16 21:14 100 35 08/30/16 20:00 92 08/30/16 20:00 98.9 92 17 115/82 100 08/30/16 20:00 35 08/30/16 18:00 95 08/30/16 17:03 100 35 08/30/16 16:00 95 08/30/16 16:00 94.4 95 17 104/76 100 08/30/16 16:00 35 08/30/16 14:00 93 08/30/16 12:00 98.7 93 11 113/82 100 08/30/16 12:00 93 08/30/16 12:00 35 08/30/16 11:32 100 35 I/O 08/30/16 08/30/16 08/30/16 08/31/16 08/31/16 08/31/16 07:00 15:00 23:00 07:00 15:00 23:00 Intake Total 896 ml 1086 ml 1222 ml 1222 ml Output Total 1400 ml 550 ml 1300 ml 1300 ml Balance -504 ml 536 ml -78 ml -78 ml IV Total 70 ml 241 ml 236 ml 236 ml Tube Feeding 226 ml 245 ml 386 ml 386 ml Other 600 ml 600 ml 600 ml 600 ml Output Urine Total 1400 ml 550 ml 1300 ml 1300 ml # Bowel Movements 0 0 0 Result Diagram: 08/30/16 0220 08/31/16 0340 Objective Remarks GENERAL: male laying in bed orally intubated. SKIN: Warm and dry. Appears pale. HEENT: Tracks eyes. PERRLA. HEART: RRR no m/r/g. LUNGS: Good air movement. Anterior lung sounds coarse. ABDOMEN: Hypoactive bowel sounds. Soft, NT, ND. PEG tube in place. EXTREMITIES: R BKA. LLE without edema. NEURO: Responding to UE commands. Date of Removal: Aug 23, 2016 Line: Central Venous Catheter Side: Left Location: Femoral A/P Assessment and Plan 61 yo M, hx of prolonged hospital stay from September 2015 - July 18, 2016, having returned to the hospital on July 22 for fall. Admitted for AMS, rhabdomyolysis , dehydration, hypernatremia and anemia. PEG tube has been placed due to decreased PO intake and dehydration. Patient is currently in critical condition due to ischemic cardiac event. Cardiology has been consulted, no interventions anticipated until pt shows clinical improvement. DCF making decisions for patient and palliative care and case management working with communication. Code status cannot be changed per DCF but agreeable to hospice. Discharge Planning Unclear discharge timetable as patient in critical condition and DCF making medical decisions for the patient. Hospice has seen and evaluated the patient. Per hospice cannot admit the patient until they speak with the DCF worker. CM spoke with DCF worker who stated that the patients daughter would need to be contacted, her number not working. Problem List: (1) Myocardial infarction acute Status: Acute Plan: Cardiac arrest s/p CPR with ROSC on 08/20. Troponin as high as >40 and EKG with LBBB. Cardiology consulted and patient in too critical condition for intervention at this time. - 2D echo with diffuse hypokinesis and LVEF 25% - Continue baby ASA - Eliquis held secondary to rectal bleeding (2) Respiratory failure Status: Acute Plan: Patient intubated, awake, and alert. Vent management and CPAP trials per critical care. - CXR 08/20 showed low lung volumes with bibasilar consolidation (3) DVT (deep venous thrombosis) Status: Acute Plan: DVT and left brachial vein Subcutaneous heparin Monitor for any active GI bleed, and notify GI if any active bleeding noted. (4) Rectal bleeding Status: Resolved Plan: Pt with anemia and acute rectal bleeding was noted. - GI consulted. S/P normal EGD - Protonix 40 mg IV BID - Monitor for active bleeding - H&H stable. Continue to monitor (5) UTI (urinary tract infection) Status: Acute Plan: Repeat UA on 08/18 significant for hazy appearance, 30 protein, small occult blood, positive nitrites, large leukocyte esterase, many white blood cell clumps, moderate bacteria. Urine culture: Pseudomonas aeruginosa, sensitive to cefepime Continue Cefepime 1gm BID (08/19-) x anticipate duration of 10 days (6) Decubitus ulcer, stage 3 Status: Acute Plan: Patient with large decubitus ulcer over lower back; appears to be healing with good granulation tissue -Wound care consulted, appreciate recommendations * Collagenase ointment to be applied daily * Wound dressing changes daily per RN (7) Anemia Status: Resolved Plan: Likely secondary to chronic disease with GI bleeding. Hematology consulted and patient on Procrit - FOBT + and GI consulted; EGD done 08/26 and was normal - Continue iron supplementation - Continue Protonix - Monitor H&H (8) Hlpey-jr-rfpoind kidney injury Status: Acute Plan: Currently stable. - Nephrology consulted - Avoid nephrotoxic meds - Closely monitor I&O - Renal U/S unremarkable (9) Altered mental status Status: Chronic Plan: Pt likely with recent anoxic brain injury due to decreased brain perfusion secondary to cardiac arrest. He has had multiple ischemic strokes in the past including a lacunar infarct on 10/20/15. At patient's baseline he is able to communicate with yes or no answers. He has also been able to express himself using complete sentences. - CT head 08/21 with no acute disease - EEG showing changes with diffuse encephalopathy (10) Chronic systolic (congestive) heart failure Status: Chronic Plan: Patient with hx of CHF, EF 35% from September 2015. -Echo from 08/20 significant for EF of 20-25% with diffuse hypokinesis. -Lasix 40 mg IV twice a day (11) Coronary artery disease Status: Chronic Plan: Continue statin. Antihypertensives held in light of hypotensive shock. Eliquis held secondary to rectal bleeding. (12) HTN (hypertension) Status: Chronic Plan: Holding home meds in light of hypotension. (13) Low vitamin D level Status: Acute Plan: Vitamin D low at 11.6. -Cholecalciferol 2000 units po Daily -Calcium carbonate 500 mg BID (14) Diabetes mellitus Status: Chronic Plan: A1C 6.9 on 11/25/15, not on oral medications as an outpatient. - Continue to monitor - Low dose SSI (15) Nutrition, metabolism, and development symptoms Status: Acute Plan: - Fluids: Free water via PEG - Electrolytes: Monitor and replete as needed - Nutrition: Glucerna tube feeds with goal 1.5 at 60 ml/hr - DVT prophylaxis: Subcutaneous heparin. Monitor for GI bleed. - GI prophylaxis: on PPI Problem Qualifiers (1) DVT (deep venous thrombosis): Qualified Code: I82.622 - Acute deep vein thrombosis (DVT) of brachial vein of left upper extremity (2) Anemia: Qualified Code: D50.8 - Other iron deficiency anemia (3) Altered mental status: Qualified Code: R41.82 - Altered mental status, unspecified altered mental status type (4) Coronary artery disease: Qualified Code: I25.10 - Coronary artery disease involving [place] heart without angina pectoris, unspecified vessel or lesion type (5) HTN (hypertension): Qualified Code: I10 - Essential hypertension (6) Diabetes mellitus: Qualified Code: E11.51 - Type 2 diabetes mellitus with diabetic peripheral angiopathy without gangrene, without long-term current use of insulin Balbir Nguyễn MD R2 August 31, 2016 10:11
--- NOTE | 2016-08-31 14:02 | HHI.CCPN ---
Subjective Remarks/Hospital Course 08/20: 61-year-old male admitted on 07/25/2016 by family medicine service after he was found at home by DCF not being able to take care of himself lying on the ground in his own feces. Previously patient was in the hospital from October 15, 2015 to July 18, 2016. During this hospitalization he was noted to be anemic secondary to anemia of chronic disease as well as possible myelosuppression for which she received blood transfusions and Procrit and was evaluated by hematology. He also has a PEG tube placed during this admission for maintaining his nutritional status. His neurologic status fluctuates and he goes from conversing to being encephalopathic. He has had multiple strokes and does have coronary artery disease with previous CABG and stenting. He is on Eliquis for anticoagulation and does have an ischemic cardiomyopathy as well as diabetes mellitus. He was recently started on Rocephin for a UTI. This morning patient was noted to have hypotension and some altered mental status. He was given fluid bolus and a chest x-ray was done earlier. Subsequently around 7 AM CODE BLUE cardiac arrest code was called for which I responded to the floor. At the time of my arrival patient was being ventilated with bag mask ventilation. He initially had agonal respirations. He was noted to be in asystole on the monitor subsequently so CPR/ACLS protocol was initiated. Patient had return of circulation following about 15 minutes of ACLS protocol and was noted to have a left bundle branch block which appeared old. He was started on an epinephrine drip for hypotension and transported to [facility]. Shortly following his arrival to the unit he underwent another episode of bradycardia and subsequently lost his pulse. CPR/ACLS protocol was initiated and he had return of spontaneous circulation following about 5 minutes of ACLS. He had a central line and a femoral arterial line placed emergently by myself. Stat labs were sent as well as ABG. Patient was continued on mechanical ventilation. He subsequently had 2 further episodes of cardiac arrest from which he was successfully resuscitated. History was obtained by reviewing records and discussion with family medicine team and floor as well as floor nursing staff. 08/21: Remains sedated, orally intubated on mechanical ventilation. Sedation held this morning to assess neurologic status. On dopamine 5 mics per KG per minute. Off other pressors at this time. Troponin greater than 40 this morning. On Protonix drip which was started yesterday for some rectal bleeding which is now stopped. EF 25% on 2-D echo done yesterday. Eliquis continues to be on hold. On aspirin. 08/22: Dopamine 2.5mcgs weaned off this morning. The patient appears hemodynamically stable, normotensive. 08/23: Tmax 99.7. Dopamine remained off overnight, patient remains normotensive. Overnight the patient began to follow commands moving his extremities 4. CPAP trials to begin today. Physical therapy order for functional maintenance. Leukocytosis trending down. Will discontinue femoral central line and arterial line today. 08/24: Afebrile. CPAP was initiated today, the pain patient continues on CPAP since 8:30 this morning 10/5/FiO2 of 30%. He remains hemodynamically stable at this point, we'll reconsult GI regarding possible upper endoscopy and colonoscopy, defer recommendations regarding heparin. 08/25: Afebrile. The patient continues on CPAP trials, planned meeting with palliative care and DCF unsuccessful today rescheduling will be attempted. The patient is tracking and following commands. 08/26: Tmax 99 .8. The patient underwent venous Doppler ultrasound of extremities yesterday, negative results. The patient scheduled to undergo EGD today secondary to previous GI bleed. The patient was placed out of bed into recliner chair today. Plan for hospice consult palliative care team with conversation with DCF. 08/27: Patient continues to be maintained on CPAP trials, with discontinuation. Plan for SBT parameters in the a.m., and a trial of extubation. The patient's interacting nodding head to yes and no questions appropriately. Patient normotensive. Hospice consult initiated by family medicine. 08/28: Patient remained on CPAP all night, however has several periods of apnea and attempted to self extubate this morning. Heparin subcutaneous was initiated , patient was placed on tube feeds. 08/29: Patient experienced multiple episodes of wide complex V tachycardia during the night. Electrolytes repleted, the patient continues on CPAP with periods of apnea. Hospice consult plan for today. 08/30: Continues periods of apnea. Due to social situation regarding consent we will go ahead an perform tracheostomy to at least promote transition. 08/31: Apneic periods persist - I will perform trach in a.m. Objective Vital Signs Date Time Temp Pulse Resp B/P Pulse Ox O2 Delivery O2 Flow Rate FiO2 08/31/16 12:00 35 08/31/16 12:00 98.0 89 15 112/79 100 Intake and Output 08/30/16 08/30/16 08/31/16 08:00 16:00 00:00 Intake Total 896 ml 1086 ml 1222 ml Output Total 1400 ml 550 ml 1300 ml Balance -504 ml 536 ml -78 ml Result Diagram: 08/30/16 0220 08/31/16 0340 Imaging Last 24 hours Impressions Chest X-Ray 08/20/16 0500 Signed Impressions: Service Date/Time: Saturday, August 20, 2016 05:06 - CONCLUSION: Low lung volumes with bibasilar consolidation. Consolidation could relate to atelectasis or infiltrates. Daryl Prabhakar Jr., MD Chest X-Ray 08/20/16 0000 Signed Impressions: Service Date/Time: Saturday, August 20, 2016 08:15 - CONCLUSION: 1. ET tube in good position. 2. Mild diffuse increased interstitial markings likely representing edema. Camacho Santana MD Last Impressions Chest X-Ray 08/20/16 0500 Signed Impressions: Service Date/Time: Saturday, August 20, 2016 05:06 - CONCLUSION: Low lung volumes with bibasilar consolidation. Consolidation could relate to atelectasis or infiltrates. Daryl Prabhakar Jr., MD Bone Osseous Survey 07/31/16 0000 Signed Impressions: Service Date/Time: Sunday, July 31, 2016 16:09 - CONCLUSION: Unremarkable bone survey. Incidental note made of median sternotomy. Multiple gallstones. Richard Gerber MD Head CT 07/25/16 1644 Signed Impressions: Service Date/Time: Monday, July 25, 2016 17:19 - CONCLUSION: 1. Lacunar infarcts bilaterally, worse on the left. 2. Negative for an acute process. Didier Clay MD FACR Renal Ultrasound 07/25/16 0000 Signed Impressions: Service Date/Time: Monday, July 25, 2016 20:55 - CONCLUSION: 1. Tiny nonobstructing calcified left renal calculi. 2. No hydronephrosis or solid renal mass. Efren Cleaning MD Objective Remarks Neuro: Alert and responsive, moving extremities 4. Localizing/ withdraws, orally intubated. Pallor present, no icterus, tongue/ mucosa moist. Tacks with eyes. Neck: No JVD, trachea midline Chest/Pulm: on mech vent, good air entry bilaterally, clear to auscultation bilaterally, no wheezing. CVS: S1-S2 regular, no murmur, rubs or gallops GI/abdomen: soft, nontender, bowel sounds sluggish. PEG tube in place Extremities: warm bilaterally, trace bilateral edema upper and lower extremities. Date of Removal: Aug 23, 2016 Line: Central Venous Catheter Side: Left Location: Femoral A/P Assessment and Plan 61-year-old male with: Cardiac arrest status post CPR Acute respiratory failure on mechanical ventilation Pulmonary edema Shock(resolved) Encephalopathy suspected anoxic brain damage in the setting of poor baseline neurologic function: Elevated troponin with acute KS Ischemic cardiomyopathy History of CHF with EF 35% PAT/ CKD History of strokes Anemia of chronic disease Diabetes mellitus Myelosuppression Monoclonal gammopathy Sacral decubitus ulcer Status post PEG tube placement UTI Possible sepsis BKA right lower extremity Plan: Neuro: Currently all sedation, monitor neuro status. Patient following some commands moving extremities 4. Interacting to yes and no questions History of multiple strokes . Head CT negative for bleed (08/21) was on Eliquis for prior strokes however currently on hold due to rectal bleeding. Restart anticoagulation when okay with GI. Currently still on hold Cardiovascular: Off epinephrine/Levophed. Dopamine discontinued 08/22. EKG with left bundle branch block. Troponin greater than 40 noted. Cardiology: Dr. Damián Arias not planning any intervention at this time due to poor neurologic status and elevated creatinine. Continue Aspirin. Eliquis last dose on 08/19 pm - continue holding due to rectal bleed 08/20. 2D echo with diffuse hypokinesis, LVEF 25%() Pulmonary: Continue mechanical ventilation, vent bundle, bronchodilators as needed. Continue CPAP trials DuoNeb treatments every 6 hours scheduled every 2 hours when necessary Plan for trial of extubation discontinued, secondary to patient has periods of apnea Plan tracheostomy. GI/liver: Continue PEG feeds with Glucerna @ 30cc/hr. Advance to goal. Currently on hold 08/26 EGD Zofran for nausea Renal/: Given Lasix 80 mg IV stat on 08/20 for pulmonary edema. Strict intake output Monitor and replete electrolytes follow BUN creatinine. Will continue lasix to maintain even to slightly negative fluid balance Endocrine: SSI for glycemic control Heme: Transfused 1 unit PRBC on 08/20. Follow CBC. Being followed by hematology. Transfused 1 unit PRBCs 08/20 in view of acute KS to bring hemoglobin closer to 9 g percent ID: On Cefepime for UTI. Urine culture with Pseudomonas recently. Repeat cultures sent. MSK: Status post BKA 08/26 venous Doppler ultrasound Upper extremity-DVT left brachial vein, superficial thrombosed basilic and cephalic vein, B/L lower extremities negative Prophylaxis: PPI/SCDs. SQ heparin initiated 08/28 with GI clearance Lines: Left femoral central venous catheter, left femoral arterial line placed on 08/20-08/24 Prognosis appears extremely poor. Dispo: Plan for trial of extubation in a.m. , patient successfully continue CPAP trials. DCF assigned as decision maker for patient, palliative care team meeting via telephone 08/26/16, plan for hospice consult. If patient does not plan to go to hospice will have to consider tracheostomy. Discussed with family medicine service, Discussed with ICU nursing staff. Apnea spells continue, I will perform tracheostomy in a.m. Bobby Frost MD August 31, 2016 14:02
[2016-08-31] MEDS: CEFEPIME INJ 1,000 MG in SODIUM CHLORIDE 0.9% INJ 100 ML IV SCH (14:20)
[2016-08-31] MEDS: ATORVASTATIN 80 MG TAB PO SCH (20:24)
[2016-08-31] MEDS: MIRTAZAPINE 15 MG TAB PO SCH (20:24)
[2016-09-01] VITALS (19 sets, daily range): BP systolic 100–124; BP diastolic 70–87; PULSE 80–122; RESP 15–19; TEMP 98.2–99.2; O2SAT 98–100
[2016-09-01] MEDS: FREE WATER G-TUBE SCH ×5 (03:23→20:00)
[2016-09-01] MEDS: INSULIN ASPART SUPPLEMENTAL SCALE SQ SCH ×4 (06:38→21:19)
--- NOTE | 2016-09-01 07:41 | HHI.FPPN ---
Subjective Remarks Patient seen and examined this am. Remains tachy. Currently having trache placed this am at bedside. Plan for tracheostomy collar tomorrow. No other overnight events. Objective Vitals Vital Signs Date Time Temp Pulse Resp B/P Pulse Ox O2 Delivery O2 Flow Rate FiO2 09/01/16 06:00 109 09/01/16 04:29 100 35 09/01/16 04:00 35 09/01/16 04:00 99.0 108 19 117/83 100 09/01/16 04:00 108 09/01/16 02:00 100 09/01/16 01:06 100 35 09/01/16 00:00 35 09/01/16 00:00 99.0 106 17 124/87 100 09/01/16 00:00 106 08/31/16 22:00 101 08/31/16 21:02 100 35 08/31/16 20:00 102 08/31/16 20:00 99.3 102 18 101/70 100 08/31/16 20:00 35 08/31/16 18:00 96 08/31/16 17:17 100 35 08/31/16 16:00 35 08/31/16 16:00 97.8 94 15 119/72 100 08/31/16 16:00 94 08/31/16 14:00 94 08/31/16 12:00 35 08/31/16 12:00 98.0 89 15 112/79 100 08/31/16 12:00 89 08/31/16 11:24 100 35 08/31/16 10:00 88 08/31/16 08:10 100 35 08/31/16 08:00 86 08/31/16 08:00 35 08/31/16 08:00 97.8 87 13 111/75 100 I/O 08/31/16 08/31/16 08/31/16 09/01/16 09/01/16 09/01/16 07:00 15:00 23:00 07:00 15:00 23:00 Intake Total 1222 ml 996 ml 904 ml 195 ml Output Total 1300 ml 675 ml 1000 ml 350 ml Balance -78 ml 321 ml -96 ml -155 ml IV Total 236 ml 188 ml 257 ml 80 ml Tube Feeding 386 ml 408 ml 347 ml 115 ml Other 600 ml 400 ml 300 ml Output Urine Total 1300 ml 675 ml 1000 ml 350 ml Tube Feeding Residual Discard 0 ml 0 ml # Bowel Movements 0 0 0 0 Result Diagram: 08/30/16 0220 08/31/16 0340 Imaging Last Impressions Upper Extremity Ultrasound 08/26/16 0000 Signed Impressions: Service Date/Time: Friday, August 26, 2016 10:34 - CONCLUSION: 1. Deep venous thrombosis in the left brachial vein. 2. Superficial venous thrombosis in the basilic and cephalic veins. Thiago Heredia MD Lower Extremity Ultrasound 08/26/16 0000 Signed Impressions: Service Date/Time: Friday, August 26, 2016 10:12 - CONCLUSION: Negative exam with no evidence of deep venous thrombosis. Thiago Heredia MD Head CT 08/21/16 0000 Signed Impressions: Service Date/Time: Sunday, August 21, 2016 03:47 - CONCLUSION: No acute disease. Daryl Prabhakar Jr., MD Chest X-Ray 08/20/16 0500 Signed Impressions: Service Date/Time: Saturday, August 20, 2016 05:06 - CONCLUSION: Low lung volumes with bibasilar consolidation. Consolidation could relate to atelectasis or infiltrates. Daryl Prabhakar Jr., MD Bone Osseous Survey 07/31/16 0000 Signed Impressions: Service Date/Time: Sunday, July 31, 2016 16:09 - CONCLUSION: Unremarkable bone survey. Incidental note made of median sternotomy. Multiple gallstones. Richard Gerber MD Renal Ultrasound 07/25/16 0000 Signed Impressions: Service Date/Time: Monday, July 25, 2016 20:55 - CONCLUSION: 1. Tiny nonobstructing calcified left renal calculi. 2. No hydronephrosis or solid renal mass. Efren Cleaning MD Objective Remarks GENERAL: male laying in bed orally intubated. SKIN: Warm and dry. Appears pale. HEENT: Tracks eyes. PERRLA. HEART: RRR no m/r/g. LUNGS: Good air movement. Anterior lung sounds coarse. Trache in place. ABDOMEN: Hypoactive bowel sounds. Soft, NT, ND. PEG tube in place. EXTREMITIES: R BKA. LLE without edema. NEURO: Responding to UE commands. Date of Removal: Aug 23, 2016 Line: Central Venous Catheter Side: Left Location: Femoral A/P Assessment and Plan 61 yo M, hx of prolonged hospital stay from September 2015 - July 18, 2016, having returned to the hospital on July 22 for fall. Admitted for AMS, rhabdomyolysis , dehydration, hypernatremia and anemia. PEG tube has been placed due to decreased PO intake and dehydration. Patient is currently in critical condition due to ischemic cardiac event. Cardiology has been consulted, no interventions anticipated until pt shows clinical improvement. DCF making decisions for patient and palliative care and case management working with communication. Code status cannot be changed per DCF but agreeable to hospice. Discharge Planning "Per 08/31: Call from Tankgorge Kumar DCF..per DCF ip technology transactions attorney sister is NOK and should make decision re Hospice. Explained SISTER was previous decision maker and DCF petitioned the court for guardianship as sister was not competent to make decisions and consistently direct care on the pts behalf. Respectfully requested Mr Kumar review with Evelin Arias [facility] Counterintelligence Specialist who has been following this case and return call to song writer in am with a decision maker for this pt. Notified Codey Rich CM and ROBER Juarez of current standing. LINDA Loyd CCM" Problem List: (1) Myocardial infarction acute Status: Acute Plan: Cardiac arrest s/p CPR with ROSC on 08/20. Troponin as high as >40 and EKG with LBBB. Cardiology consulted and patient in too critical condition for intervention at this time. - 2D echo with diffuse hypokinesis and LVEF 25% - Continue baby ASA - Eliquis held secondary to rectal bleeding (2) Respiratory failure Status: Acute Plan: Patient intubated, awake, and alert. Vent management and CPAP trials per critical care. - CXR 08/20 showed low lung volumes with bibasilar consolidation (3) DVT (deep venous thrombosis) Status: Acute Plan: DVT and left brachial vein Subcutaneous heparin Monitor for any active GI bleed, and notify GI if any active bleeding noted. (4) Rectal bleeding Status: Resolved Plan: Pt with anemia and acute rectal bleeding was noted. - GI consulted. S/P normal EGD - Protonix 40 mg IV BID - Monitor for active bleeding - H&H stable. Continue to monitor (5) UTI (urinary tract infection) Status: Acute Plan: Repeat UA on 08/18 significant for hazy appearance, 30 protein, small occult blood, positive nitrites, large leukocyte esterase, many white blood cell clumps, moderate bacteria. Urine culture: Pseudomonas aeruginosa, sensitive to cefepime Continue Cefepime 1gm BID (08/19-) x anticipate duration of 10 days (6) Decubitus ulcer, stage 3 Status: Acute Plan: Patient with large decubitus ulcer over lower back; appears to be healing with good granulation tissue -Wound care consulted, appreciate recommendations * Collagenase ointment to be applied daily * Wound dressing changes daily per RN (7) Anemia Status: Resolved Plan: Likely secondary to chronic disease with GI bleeding. Hematology consulted and patient on Procrit - FOBT + and GI consulted; EGD done 08/26 and was normal - Continue iron supplementation - Continue Protonix - Monitor H&H (8) Eofbn-zm-kmataer kidney injury Status: Acute Plan: Currently stable. - Nephrology consulted - Avoid nephrotoxic meds - Closely monitor I&O - Renal U/S unremarkable (9) Altered mental status Status: Chronic Plan: Pt likely with recent anoxic brain injury due to decreased brain perfusion secondary to cardiac arrest. He has had multiple ischemic strokes in the past including a lacunar infarct on 10/20/15. At patient's baseline he is able to communicate with yes or no answers. He has also been able to express himself using complete sentences. - CT head 08/21 with no acute disease - EEG showing changes with diffuse encephalopathy (10) Chronic systolic (congestive) heart failure Status: Chronic Plan: Patient with hx of CHF, EF 35% from September 2015. -Echo from 08/20 significant for EF of 20-25% with diffuse hypokinesis. -Lasix 40 mg IV twice a day (11) Coronary artery disease Status: Chronic Plan: Continue statin. Antihypertensives held in light of hypotensive shock. Eliquis held secondary to rectal bleeding. (12) HTN (hypertension) Status: Chronic Plan: Holding home meds in light of hypotension. (13) Low vitamin D level Status: Acute Plan: Vitamin D low at 11.6. -Cholecalciferol 2000 units po Daily -Calcium carbonate 500 mg BID (14) Diabetes mellitus Status: Chronic Plan: A1C 6.9 on 11/25/15, not on oral medications as an outpatient. - Continue to monitor - Low dose SSI (15) Nutrition, metabolism, and development symptoms Status: Acute Plan: - Fluids: Free water via PEG - Electrolytes: Monitor and replete as needed - Nutrition: Glucerna tube feeds with goal 1.5 at 60 ml/hr - DVT prophylaxis: Subcutaneous heparin. Monitor for GI bleed. - GI prophylaxis: on PPI Problem Qualifiers (1) DVT (deep venous thrombosis): Qualified Code: I82.622 - Acute deep vein thrombosis (DVT) of brachial vein of left upper extremity (2) Anemia: Qualified Code: D50.8 - Other iron deficiency anemia (3) Altered mental status: Qualified Code: R41.82 - Altered mental status, unspecified altered mental status type (4) Coronary artery disease: Qualified Code: I25.10 - Coronary artery disease involving rampart heart without angina pectoris, unspecified vessel or lesion type (5) HTN (hypertension): Qualified Code: I10 - Essential hypertension (6) Diabetes mellitus: Qualified Code: E11.51 - Type 2 diabetes mellitus with diabetic peripheral angiopathy without gangrene, without long-term current use of insulin Claudette Cheng MD R3 September 01, 2016 07:41
[2016-09-01] MEDS: CALCIUM CARBONATE 500 MG CHEWABLE TAB CHEW SCH ×2 (08:45→20:30)
[2016-09-01] MEDS: CHOLECALCIFEROL (VIT D3) 1000 UNIT TAB PO SCH (08:45)
[2016-09-01] MEDS: SODIUM CHLORIDE 0.9% FLUSH 10 ML FLUSH IV FLUSH SCH ×2 (08:46→20:30)
[2016-09-01] MEDS: FERROUS SULFATE 300 MG /5ML UDC PEG SCH (08:46)
[2016-09-01] MEDS: levETIRAcetam INJ 500 MG in SODIUM CHLORIDE 0.9% INJ 100 ML IV SCH ×2 (08:46→20:29)
[2016-09-01] MEDS: HEPARIN SODIUM - SQ 10,000 UNITS/ML VIAL SQ SCH ×2 (08:46→20:30)
[2016-09-01] MEDS: FUROSEMIDE 40 MG/4 ML VIAL IV PUSH SCH ×2 (08:46→17:06)
[2016-09-01] MEDS: ASPIRIN 81 MG CHEW TAB G-TUBE SCH (08:46)
[2016-09-01] MEDS: COLLAGENASE OINT 30 GM TUBE TOPICAL SCH (08:47)
[2016-09-01] MEDS ORDERED: VECURONIUM BROMIDE 10 MG VIAL ONE (09:44)
[2016-09-01] MEDS ORDERED: MIDAZOLAM HCL 5 MG/ML VIAL (1 ML) ONE (09:44)
--- NOTE | 2016-09-01 10:32 | PD.PROCEDR ---
Procedure Note Procedure Percutaneous Dilation Tracheostomy Tube Placement Diagnosis/Indication: Chronic respiratory failure, prolonged periods of apnea, unable to wean off ventilator Anesthesia: Versed 10 mg IV, fentanyl 250 mcg IV Neuromuscular Blockade: Vecuronium 10 mg IV Anesthesia was provided by the bedside RN Description of the Procedure: The patient was sedated and paralyzed. The patient was positioned in the supine position with a chest roll. The patient's neck was slightly extended. Landmarks were palpated. A time out procedure was performed. The patient was placed on a volume control mode of ventilation, on 100% FiO2. The patient was prepped and draped sterilely. A bronchoscope was inserted into the endotracheal tube for endoscopic guidance (see separate bronchoscopy procedure note). 1% lidocaine with 1:100k epinephrine was injected subcutaneously in the midline neck using a 21g needle for local anesthesia. An approximately 1.5 cm skin incision was made using a #15 blade, 2 finger breadth above sternal notch. The cricoid cartilage, thyroid tissue, and tracheal rings were palpated in the midline. Under direct bronchoscopic guidance, the cuff of the endotracheal tube was deflated and the endotracheal tube was retracted to a level above the level of the skin incision. At this point, a 15g introducer needle/catheter was advanced midline under negative aspiration and catheter were visualized in the lumen of the trachea. The needle was withdrawn leaving the catheter in place. A diameter J-shaped guidewire was advanced through the catheter into the lumen of the trachea, under direct bronchoscopic visualization. Using a modified Seldinger technique, a 14 Fr, 4.5 cm introducer dilator was used, followed by a Blue Rhino Percutaneous Tracheostomy Dilator, and finally a 28 Fr tracheostomy loading catheter with 8.0 Cuffed Shiley tracheostomy tube. The loading catheter and guidewire were removed and the tracheostomy tube was confirmed in the lumen of the trachea with bronchoscopy, end-tidal CO2, and returning volumes on the ventilator. The tracheostomy was sewn to the skin with interrupted 2.0 Prolene sutures, and a tracheostomy tie was applied to the skin. There were no immediate complications. There was minimal EBL. A chest x-ray has been ordered. Procedure performed by myself with MD Camacho Fisher Sinoj K. MD September 01, 2016 10:32
--- NOTE | 2016-09-01 10:55 | HHI.CCPN ---
Subjective Remarks/Hospital Course 08/20: 61-year-old male admitted on 07/25/2016 by family medicine service after he was found at home by DCF not being able to take care of himself lying on the ground in his own feces. Previously patient was in the hospital from October 15, 2015 to July 18, 2016. During this hospitalization he was noted to be anemic secondary to anemia of chronic disease as well as possible myelosuppression for which she received blood transfusions and Procrit and was evaluated by hematology. He also has a PEG tube placed during this admission for maintaining his nutritional status. His neurologic status fluctuates and he goes from conversing to being encephalopathic. He has had multiple strokes and does have coronary artery disease with previous CABG and stenting. He is on Eliquis for anticoagulation and does have an ischemic cardiomyopathy as well as diabetes mellitus. He was recently started on Rocephin for a UTI. This morning patient was noted to have hypotension and some altered mental status. He was given fluid bolus and a chest x-ray was done earlier. Subsequently around 7 AM CODE BLUE cardiac arrest code was called for which I responded to the floor. At the time of my arrival patient was being ventilated with bag mask ventilation. He initially had agonal respirations. He was noted to be in asystole on the monitor subsequently so CPR/ACLS protocol was initiated. Patient had return of circulation following about 15 minutes of ACLS protocol and was noted to have a left bundle branch block which appeared old. He was started on an epinephrine drip for hypotension and transported to [facility]. Shortly following his arrival to the unit he underwent another episode of bradycardia and subsequently lost his pulse. CPR/ACLS protocol was initiated and he had return of spontaneous circulation following about 5 minutes of ACLS. He had a central line and a femoral arterial line placed emergently by myself. Stat labs were sent as well as ABG. Patient was continued on mechanical ventilation. He subsequently had 2 further episodes of cardiac arrest from which he was successfully resuscitated. History was obtained by reviewing records and discussion with family medicine team and floor as well as floor nursing staff. 08/21: Remains sedated, orally intubated on mechanical ventilation. Sedation held this morning to assess neurologic status. On dopamine 5 mics per KG per minute. Off other pressors at this time. Troponin greater than 40 this morning. On Protonix drip which was started yesterday for some rectal bleeding which is now stopped. EF 25% on 2-D echo done yesterday. Eliquis continues to be on hold. On aspirin. 08/22: Dopamine 2.5mcgs weaned off this morning. The patient appears hemodynamically stable, normotensive. 08/23: Tmax 99.7. Dopamine remained off overnight, patient remains normotensive. Overnight the patient began to follow commands moving his extremities 4. CPAP trials to begin today. Physical therapy order for functional maintenance. Leukocytosis trending down. Will discontinue femoral central line and arterial line today. 08/24: Afebrile. CPAP was initiated today, the pain patient continues on CPAP since 8:30 this morning 10/5/FiO2 of 30%. He remains hemodynamically stable at this point, we'll reconsult GI regarding possible upper endoscopy and colonoscopy, defer recommendations regarding heparin. 08/25: Afebrile. The patient continues on CPAP trials, planned meeting with palliative care and DCF unsuccessful today rescheduling will be attempted. The patient is tracking and following commands. 08/26: Tmax 99 .8. The patient underwent venous Doppler ultrasound of extremities yesterday, negative results. The patient scheduled to undergo EGD today secondary to previous GI bleed. The patient was placed out of bed into recliner chair today. Plan for hospice consult palliative care team with conversation with DCF. 08/27: Patient continues to be maintained on CPAP trials, with discontinuation. Plan for SBT parameters in the a.m., and a trial of extubation. The patient's interacting nodding head to yes and no questions appropriately. Patient normotensive. Hospice consult initiated by family medicine. 08/28: Patient remained on CPAP all night, however has several periods of apnea and attempted to self extubate this morning. Heparin subcutaneous was initiated , patient was placed on tube feeds. 08/29: Patient experienced multiple episodes of wide complex V tachycardia during the night. Electrolytes repleted, the patient continues on CPAP with periods of apnea. Hospice consult plan for today. 08/30: Continues periods of apnea. Due to social situation regarding consent we will go ahead an perform tracheostomy to at least promote transition. 08/31: Apneic periods persist - I will perform trach in a.m. 09/01: Tracheostomy performed. Will work toward trach collar now. Objective Vital Signs Date Time Temp Pulse Resp B/P Pulse Ox O2 Delivery O2 Flow Rate FiO2 09/01/16 10:30 98 100 09/01/16 08:00 102 09/01/16 08:00 98.2 18 122/84 Intake and Output 08/31/16 08/31/16 09/01/16 08:00 16:00 00:00 Intake Total 1222 ml 996 ml 904 ml Output Total 1300 ml 675 ml 1000.0 ml Balance -78 ml 321 ml -96.0 ml Result Diagram: 08/30/16 0220 08/31/16 0340 Imaging Last 24 hours Impressions Chest X-Ray 08/20/16 0500 Signed Impressions: Service Date/Time: Saturday, August 20, 2016 05:06 - CONCLUSION: Low lung volumes with bibasilar consolidation. Consolidation could relate to atelectasis or infiltrates. Daryl Prabhakar Jr., MD Chest X-Ray 08/20/16 0000 Signed Impressions: Service Date/Time: Saturday, August 20, 2016 08:15 - CONCLUSION: 1. ET tube in good position. 2. Mild diffuse increased interstitial markings likely representing edema. Camacho Santana MD Last Impressions Chest X-Ray 08/20/16 0500 Signed Impressions: Service Date/Time: Saturday, August 20, 2016 05:06 - CONCLUSION: Low lung volumes with bibasilar consolidation. Consolidation could relate to atelectasis or infiltrates. Daryl Prabhakar Jr., MD Bone Osseous Survey 07/31/16 0000 Signed Impressions: Service Date/Time: Sunday, July 31, 2016 16:09 - CONCLUSION: Unremarkable bone survey. Incidental note made of median sternotomy. Multiple gallstones. Richard Gerber MD Head CT 07/25/16 1644 Signed Impressions: Service Date/Time: Monday, July 25, 2016 17:19 - CONCLUSION: 1. Lacunar infarcts bilaterally, worse on the left. 2. Negative for an acute process. Didier Clay MD FACR Renal Ultrasound 07/25/16 0000 Signed Impressions: Service Date/Time: Monday, July 25, 2016 20:55 - CONCLUSION: 1. Tiny nonobstructing calcified left renal calculi. 2. No hydronephrosis or solid renal mass. Efren Celaning MD Objective Remarks Neuro: Alert and responsive, moving extremities 4. Localizing/ withdraws, orally intubated. Pallor present, no icterus, tongue/ mucosa moist. Tracks with eyes. Neck: Supple, trachea midline Chest/Pulm: on mech vent, good air entry bilaterally, clear to auscultation bilaterally, no wheezing. CVS: S1-S2 regular, no murmur, rubs or gallops. No JVD. GI/abdomen: soft, nontender, bowel sounds sluggish. PEG tube in place. Extremities: warm bilaterally, trace bilateral monitor edema upper and lower extremities. Date of Removal: Aug 23, 2016 Line: Central Venous Catheter Side: Left Location: Femoral A/P Assessment and Plan 61-year-old male with: Cardiac arrest status post CPR Acute respiratory failure on mechanical ventilation Pulmonary edema Shock(resolved) Encephalopathy suspected anoxic brain damage in the setting of poor baseline neurologic function: Elevated troponin with acute FL Ischemic cardiomyopathy History of CHF with EF 35% PAT/ CKD History of strokes Anemia of chronic disease Diabetes mellitus Myelosuppression Monoclonal gammopathy Sacral decubitus ulcer Status post PEG tube placement UTI Possible sepsis BKA right lower extremity Plan: Neuro: Currently all sedation, monitor neuro status. Patient following some commands moving extremities 4. Interacting to yes and no questions History of multiple strokes . Head CT negative for bleed (08/21) was on Eliquis for prior strokes however currently on hold due to rectal bleeding. Restart anticoagulation when okay with GI. Currently still on hold Cardiovascular: Off epinephrine/Levophed. Dopamine discontinued 08/22. EKG with left bundle branch block. Troponin greater than 40 noted. Cardiology: Dr. Damián Arias not planning any intervention at this time due to poor neurologic status and elevated creatinine. Continue Aspirin. Eliquis last dose on 08/19 pm - continue holding due to rectal bleed 08/20. 2D echo with diffuse hypokinesis, LVEF 25%() Pulmonary: Continue mechanical ventilation, vent bundle, bronchodilators as needed. Continue CPAP trials DuoNeb treatments every 6 hours scheduled every 2 hours when necessary Plan for trial of extubation discontinued, secondary to patient has periods of apnea Plan tracheostomy. GI/liver: Continue PEG feeds with Glucerna @ 30cc/hr. Advance to goal. Currently on hold 08/26 EGD Zofran for nausea Renal/: Given Lasix 80 mg IV stat on 08/20 for pulmonary edema. Strict intake output Monitor and replete electrolytes follow BUN creatinine. Will continue lasix to maintain even to slightly negative fluid balance Endocrine: SSI for glycemic control Heme: Transfused 1 unit PRBC on 08/20. Follow CBC. Being followed by hematology. Transfused 1 unit PRBCs 08/20 in view of acute FL to bring hemoglobin closer to 9 g percent ID: On Cefepime for UTI. Urine culture with Pseudomonas recently. Repeat cultures sent. MSK: Status post BKA 08/26 venous Doppler ultrasound Upper extremity-DVT left brachial vein, superficial thrombosed basilic and cephalic vein, B/L lower extremities negative Prophylaxis: PPI/SCDs. SQ heparin initiated 08/28 with GI clearance Lines: Left femoral central venous catheter, left femoral arterial line placed on 08/20-08/24 Prognosis appears extremely poor. Dispo: Plan for trial of extubation in a.m. , patient successfully continue CPAP trials. DCF assigned as decision maker for patient, palliative care team meeting via telephone 08/26/16, plan for hospice consult. Discussed with family medicine service, Discussed with ICU nursing staff. Overall impression: Hospitalization prolonged due to apneic spells, hopefully [facility] will provide protection and we can arrange floor transfer. Bobby Frost MD September 01, 2016 10:55
--- NOTE | 2016-09-01 11:01 | RADRPT ---
EXAM DATE/TIME: 09/01/2016 10:36 [facility] COMPARISON: CHEST SINGLE AP, August 20, 2016, 8:15. INDICATIONS : Post tracheostomy. MEDICAL HISTORY : Hypertension. Hypercholesterolemia. Myocardial infarction. CVA. CHF. Coronary artery disease. Nick al calculi. Diabetes. SURGICAL HISTORY : CABG. Coronary artery stent. ENCOUNTER: Initial ACUITY: 1 day PAIN SCORE: Non-responsive. LOCATION: Bilateral chest FINDINGS: Portable AP view of the chest demonstrates a normal size cardiac silhouette in this patient post medi an sternotomy. The most superior sternotomy wire remains fractured. Tracheostomy overlies the trachea l air shadow and no pneumothorax is visualized. Lungs are underinflated there is atelectasis at the l joshua bases. No pleural effusion is visualized. CONCLUSION: 1. Tracheostomy is now present and no pneumothorax is visualized. 2. Underinflation with atelectasis at the bases. Camacho Culp MD on September 01, 2016 at 10:59 Board Certified Radiologist. This report was verified electronically.
[2016-09-01] MEDS: CEFEPIME INJ 1,000 MG in SODIUM CHLORIDE 0.9% INJ 100 ML IV SCH (12:45)
[2016-09-01] MEDS: PANTOPRAZOLE SODIUM 40 MG VIAL IV PUSH SCH (12:45)
--- NOTE | 2016-09-01 14:47 | PD.PROCEDR ---
Procedure Note Procedure Procedure Procedure: Fiberoptic Bronchoscopy Diagnosis/Indication: Respiratory failure, unable to wean off the ventilator Consent: Informed consent obtained and a time out performed Anesthesia: Total 10 mg IV Versed, 250 g of fentanyl given for pain control. Neuromuscular paralysis with vecuronium 50 mill grams IV 1 Description of the Procedure: The patient was sedated and mechanically ventilated, was placed on 100% FIO2 PRVC mode of ventilation. The fiberoptic bronchoscopy was inserted via endotracheal tube and the ETT was withdrawn slowly to 17 CM. The trachea, right and left mainstem bronchi, and sub- segmental bronchi were evaluated. The endobronchial anatomy was normal. Insertion of introducer needle, guidewire, followed by serial Blue Rhino dilation and tracheostomy placement was directly visualized on video bronchoscopy. (see separate tracheostomy procedure note from Dr. Panchal). After tracheostomy placement, position was confirmed by introducing the bronchoscope through the new trach and visualizing the main jose angel. The patient tolerated the procedure well with no hemodynamic instability or hypoxia. There were no immediate complications noted. EBL for bronchoscopy have was negligible. A chest x-ray has been ordered. I personally performed the procedure. Harvey Gibson MD September 01, 2016 14:47
[2016-09-01] MEDS: ATORVASTATIN 80 MG TAB PO SCH (20:30)
[2016-09-01] MEDS: MIRTAZAPINE 15 MG TAB PO SCH (20:30)
[2016-09-02] VITALS (16 sets, daily range): BP systolic 99–129; BP diastolic 66–89; PULSE 97–112; RESP 16–29; TEMP 98.3–99; O2SAT 97–100
[2016-09-02] MEDS: PANTOPRAZOLE SODIUM 40 MG VIAL IV PUSH SCH ×2 (00:43→13:41)
[2016-09-02] MEDS: FREE WATER G-TUBE SCH ×6 (04:00→20:00)
[2016-09-02] MEDS: INSULIN ASPART SUPPLEMENTAL SCALE SQ SCH ×4 (06:39→21:00)
[2016-09-02] MEDS: levETIRAcetam INJ 500 MG in SODIUM CHLORIDE 0.9% INJ 100 ML IV SCH ×2 (07:40→21:07)
[2016-09-02] MEDS: FERROUS SULFATE 300 MG /5ML UDC PEG SCH (07:40)
[2016-09-02] MEDS: FUROSEMIDE 40 MG/4 ML VIAL IV PUSH SCH ×2 (07:40→17:17)
[2016-09-02] MEDS: HEPARIN SODIUM - SQ 10,000 UNITS/ML VIAL SQ SCH ×2 (07:40→21:00)
[2016-09-02] MEDS: SODIUM CHLORIDE 0.9% FLUSH 10 ML FLUSH IV FLUSH SCH ×2 (07:41→21:00)
[2016-09-02] MEDS: CHOLECALCIFEROL (VIT D3) 1000 UNIT TAB PO SCH (07:41)
[2016-09-02] MEDS: CALCIUM CARBONATE 500 MG CHEWABLE TAB CHEW SCH ×2 (07:41→21:07)
[2016-09-02] MEDS: ASPIRIN 81 MG CHEW TAB G-TUBE SCH (07:41)
[2016-09-02] MEDS: COLLAGENASE OINT 30 GM TUBE TOPICAL SCH (09:00)
--- NOTE | 2016-09-02 12:04 | HHI.FPPN ---
Subjective Remarks Patient status post tracheostomy. Resting comfortably. Objective Vitals Vital Signs Date Time Temp Pulse Resp B/P Pulse Ox O2 Delivery O2 Flow Rate FiO2 09/02/16 08:42 99 T-piece 5.00 35 09/02/16 07:00 98 Mechanical Ventilator 30 09/02/16 06:00 99 09/02/16 04:04 100 30 09/02/16 04:00 30 09/02/16 04:00 98.3 100 19 111/74 100 09/02/16 04:00 100 09/02/16 02:00 105 09/02/16 01:20 99 30 09/02/16 00:00 30 09/02/16 00:00 99.0 110 16 111/83 99 09/02/16 00:00 110 09/01/16 22:00 122 09/01/16 21:51 100 30 09/01/16 21:51 98 30 09/01/16 21:50 30 09/01/16 20:00 99 T-piece 35 09/01/16 20:00 110 09/01/16 20:00 99.2 110 18 102/70 98 09/01/16 19:00 97 T-Piece 35 09/01/16 18:00 102 09/01/16 16:30 98 T-Piece 35 09/01/16 16:09 98 T-piece 35 09/01/16 16:00 98.4 92 15 100/74 98 09/01/16 16:00 92 09/01/16 15:00 35 09/01/16 14:00 80 09/01/16 12:30 35 09/01/16 12:25 100 35 09/01/16 12:24 35 09/01/16 12:00 100 09/01/16 12:00 80 09/01/16 12:00 99.0 80 16 108/78 100 I/O 09/01/16 09/01/16 09/01/16 09/02/16 09/02/16 09/02/16 07:00 15:00 23:00 07:00 15:00 23:00 Intake Total 195 ml 936 ml 884 ml 1018 ml Output Total 350 ml 200 ml 1150 ml 300 ml Balance -155 ml 736 ml -266 ml 718 ml IV Total 80 ml 251 ml 178 ml 76 ml Tube Feeding 115 ml 85 ml 406 ml 342 ml Other 600 ml 300 ml 600 ml Output Urine Total 350 ml 200 ml 1150 ml 300 ml Tube Feeding Residual Discard 0 ml 0 ml 0 ml 0 ml # Bowel Movements 0 0 0 0 Result Diagram: 08/30/1621908/31/16 6160 Objective Remarks GENERAL: male laying in bed with tracheostomy SKIN: Warm and dry. Appears pale. HEENT: Tracks eyes. PERRLA. HEART: RRR no m/r/g. LUNGS: Good air movement. Anterior lung sounds coarse. Trach in place. ABDOMEN: Hypoactive bowel sounds. Soft, NT, ND. PEG tube in place. EXTREMITIES: R BKA. LLE without edema. NEURO: Responding to commands. Date of Removal: Aug 23, 2016 Line: Central Venous Catheter Side: Left Location: Femoral A/P Assessment and Plan 61 yo M, hx of prolonged hospital stay from September 2015 - July 18, 2016, having returned to the hospital on July 22 for fall. Admitted for AMS, rhabdomyolysis , dehydration, hypernatremia and anemia. PEG tube has been placed due to decreased PO intake and dehydration. Patient is currently in critical condition due to ischemic cardiac event. Cardiology has been consulted, no interventions anticipated until pt shows clinical improvement. DCF making decisions for patient and palliative care and case management working with communication. Code status cannot be changed per DCF but agreeable to hospice. Discharge Planning Unclear timetable. DCF is medical decision-maker, but currently unable to make some medical decisions. Hospice consulted and palliative following. Problem List: (1) Myocardial infarction acute Status: Acute Plan: Cardiac arrest s/p CPR with ROSC on 08/20. Troponin as high as >40 and EKG with LBBB. Cardiology consulted and patient in too critical condition for intervention at this time. - 2D echo with diffuse hypokinesis and LVEF 25% - Continue baby ASA - Eliquis held secondary to rectal bleeding (2) Respiratory failure Status: Acute Plan: Status post trach 09/01., awake, and alert. Vent management and CPAP trials per critical care. (3) DVT (deep venous thrombosis) Status: Acute Plan: DVT and left brachial vein Subcutaneous heparin Monitor for any active GI bleed, and notify GI if any active bleeding noted. (4) Rectal bleeding Status: Resolved Plan: Pt with anemia and acute rectal bleeding was noted. - GI consulted. S/P normal EGD - Protonix 40 mg IV BID - Monitor for active bleeding - H&H stable. Continue to monitor (5) UTI (urinary tract infection) Status: Acute Plan: Repeat UA on 08/18 significant for hazy appearance, 30 protein, small occult blood, positive nitrites, large leukocyte esterase, many white blood cell clumps, moderate bacteria. Urine culture: Pseudomonas aeruginosa, sensitive to cefepime Continue Cefepime 1gm BID (08/19-) x anticipate duration of 10 days (6) Decubitus ulcer, stage 3 Status: Acute Plan: Patient with large decubitus ulcer over lower back; appears to be healing with good granulation tissue -Wound care consulted, appreciate recommendations * Collagenase ointment to be applied daily * Wound dressing changes daily per RN (7) Anemia Status: Resolved Plan: Likely secondary to chronic disease with GI bleeding. Hematology consulted and patient on Procrit - FOBT + and GI consulted; EGD done 08/26 and was normal - Continue iron supplementation - Continue Protonix - Monitor H&H (8) Apwiy-cu-djazkzg kidney injury Status: Acute Plan: Currently stable. - Nephrology consulted - Avoid nephrotoxic meds - Closely monitor I&O - Renal U/S unremarkable (9) Altered mental status Status: Chronic Plan: Pt likely with recent anoxic brain injury due to decreased brain perfusion secondary to cardiac arrest. He has had multiple ischemic strokes in the past including a lacunar infarct on 10/20/15. At patient's baseline he is able to communicate with yes or no answers. He has also been able to express himself using complete sentences. - CT head 08/21 with no acute disease - EEG showing changes with diffuse encephalopathy (10) Chronic systolic (congestive) heart failure Status: Chronic Plan: Patient with hx of CHF, EF 35% from September 2015. -Echo from 08/20 significant for EF of 20-25% with diffuse hypokinesis. -Lasix 40 mg IV twice a day (11) Coronary artery disease Status: Chronic Plan: Continue statin. Antihypertensives held in light of hypotensive shock. Eliquis held secondary to rectal bleeding. (12) HTN (hypertension) Status: Chronic Plan: Holding home meds in light of hypotension. (13) Low vitamin D level Status: Acute Plan: Vitamin D low at 11.6. -Cholecalciferol 2000 units po Daily -Calcium carbonate 500 mg BID (14) Diabetes mellitus Status: Chronic Plan: A1C 6.9 on 11/25/15, not on oral medications as an outpatient. - Continue to monitor - Low dose SSI (15) Nutrition, metabolism, and development symptoms Status: Acute Plan: - Fluids: Free water via PEG - Electrolytes: Monitor and replete as needed - Nutrition: Glucerna tube feeds with goal 1.5 at 60 ml/hr - DVT prophylaxis: Subcutaneous heparin. Monitor for GI bleed. - GI prophylaxis: on PPI Problem Qualifiers (1) DVT (deep venous thrombosis): Qualified Code: I82.622 - Acute deep vein thrombosis (DVT) of brachial vein of left upper extremity (2) Anemia: Qualified Code: D50.8 - Other iron deficiency anemia (3) Altered mental status: Qualified Code: R41.82 - Altered mental status, unspecified altered mental status type (4) Coronary artery disease: Qualified Code: I25.10 - Coronary artery disease involving ione heart without angina pectoris, unspecified vessel or lesion type (5) HTN (hypertension): Qualified Code: I10 - Essential hypertension (6) Diabetes mellitus: Qualified Code: E11.51 - Type 2 diabetes mellitus with diabetic peripheral angiopathy without gangrene, without long-term current use of insulin Balbir Nguyễn MD R2 September 02, 2016 12:04
[2016-09-02] MEDS ORDERED: NEOMYCIN/POLYMYX/DEXAMETH OPHT SUSP 5 ML BTL EACH EYE SCH (13:00)
[2016-09-02] MEDS: CEFEPIME INJ 1,000 MG in SODIUM CHLORIDE 0.9% INJ 100 ML IV SCH (14:00)
--- NOTE | 2016-09-02 18:29 | HHI.HCPN ---
Call from Codey Rich CM who indicates DCF [address] court order granting authorization for hospice care, he was going to place court order in pocket on patient chart. Notified [facility] to see patient for admission. Patient now on t-piece. Hospice appropriate. Palliative care and case management have been unable to locate family despite search. . SHIRA LYNCH September 02, 2016 18:29
[2016-09-02] MEDS: ATORVASTATIN 80 MG TAB PO SCH (21:07)
[2016-09-02] MEDS: MIRTAZAPINE 15 MG TAB PO SCH (21:07)
[2016-09-03] VITALS (14 sets, daily range): BP systolic 118–144; BP diastolic 78–97; PULSE 96–108; RESP 15–23; TEMP 96.5–99.7; O2SAT 95–100
[2016-09-03] MEDS: PANTOPRAZOLE SODIUM 40 MG VIAL IV PUSH SCH ×2 (01:38→12:21)
[2016-09-03] MEDS: FREE WATER G-TUBE SCH ×6 (04:00→20:00)
[2016-09-03] MEDS: INSULIN ASPART SUPPLEMENTAL SCALE SQ SCH ×4 (07:00→21:00)
[2016-09-03] MEDS: FERROUS SULFATE 300 MG /5ML UDC PEG SCH (08:29)
[2016-09-03] MEDS: levETIRAcetam INJ 500 MG in SODIUM CHLORIDE 0.9% INJ 100 ML IV SCH ×2 (08:29→21:23)
[2016-09-03] MEDS: CALCIUM CARBONATE 500 MG CHEWABLE TAB CHEW SCH ×2 (08:29→21:23)
[2016-09-03] MEDS: ASPIRIN 81 MG CHEW TAB G-TUBE SCH (08:29)
[2016-09-03] MEDS: CHOLECALCIFEROL (VIT D3) 1000 UNIT TAB PO SCH (08:29)
[2016-09-03] MEDS: SODIUM CHLORIDE 0.9% FLUSH 10 ML FLUSH IV FLUSH SCH ×2 (08:30→21:26)
[2016-09-03] MEDS: HEPARIN SODIUM - SQ 10,000 UNITS/ML VIAL SQ SCH ×2 (08:30→21:00)
[2016-09-03] MEDS: COLLAGENASE OINT 30 GM TUBE TOPICAL SCH (08:30)
[2016-09-03] MEDS: FUROSEMIDE 40 MG/4 ML VIAL IV PUSH SCH ×2 (09:59→17:53)
--- NOTE | 2016-09-03 10:28 | HHI.FPPN ---
Subjective Remarks Discussed with bedside nurse. No new events. Responds to commands. Objective Vitals Vital Signs Date Time Temp Pulse Resp B/P Pulse Ox O2 Delivery O2 Flow Rate FiO2 09/03/16 10:00 101 09/03/16 08:09 99 T-piece 40 09/03/16 08:00 103 09/03/16 07:00 98 T-Piece 35 09/03/16 06:00 98 09/03/16 04:44 98 T-piece 6.00 40 09/03/16 04:00 106 09/03/16 04:00 99.6 107 15 125/79 96 09/03/16 02:00 103 09/03/16 00:00 106 09/03/16 00:00 99.7 106 23 118/78 95 09/02/16 22:00 112 09/02/16 21:17 98 T-piece 6.00 35 09/02/16 20:00 98.8 109 29 129/89 100 09/02/16 20:00 109 09/02/16 19:00 98 T-Piece 40 09/02/16 18:00 105 09/02/16 16:00 99 09/02/16 16:00 98.5 99 17 102/66 100 09/02/16 14:00 99 09/02/16 12:00 97 09/02/16 12:00 98.3 97 19 99/71 97 I/O 09/02/16 09/02/16 09/02/16 09/03/16 09/03/16 09/03/16 07:00 15:00 23:00 07:00 15:00 23:00 Intake Total 1018 ml 1132 ml 994 ml 1052 ml Output Total 300 ml 850 ml 1350 ml 300 ml Balance 718 ml 282 ml -356 ml 752 ml IV Total 76 ml 170 ml 275 ml 76 ml Tube Feeding 342 ml 362 ml 419 ml 376 ml Other 600 ml 600 ml 300 ml 600 ml Output Urine Total 300 ml 850 ml 1350 ml 300 ml Tube Feeding Residual Discard 0 ml 0 ml 0 ml # Bowel Movements 0 0 0 0 Result Diagram: 08/30/16 0220 08/31/16 0340 Objective Remarks GENERAL: male laying in bed with tracheostomy SKIN: Warm and dry. Appears pale. HEENT: Tracks eyes. PERRLA. HEART: RRR no m/r/g. LUNGS: Good air movement. Anterior lung sounds coarse. Trach in place. ABDOMEN: Hypoactive bowel sounds. Soft, NT, ND. PEG tube in place. EXTREMITIES: R BKA. LLE without edema. NEURO: Responding to commands. Date of Removal: Aug 23, 2016 Line: Central Venous Catheter Side: Left Location: Femoral A/P Assessment and Plan 61 yo M, hx of prolonged hospital stay from September 2015 - July 18, 2016, having returned to the hospital on July 22 for fall. Admitted for AMS, rhabdomyolysis , dehydration, hypernatremia and anemia. PEG tube has been placed due to decreased PO intake and dehydration. Patient is currently in critical condition due to ischemic cardiac event. Cardiology has been consulted, no interventions anticipated until pt shows clinical improvement. DCF making decisions for patient and palliative care and case management working with communication. Code status cannot be changed per DCF but agreeable to hospice. Discharge Planning Per palliative note on 09/02: Call from Codey Rich CM who indicates DCF [address] court order granting authorization for hospice care, he was going to place court order in pocket on patient chart. Notified [facility] to see patient for admission. Patient now on t-piece. Hospice appropriate. Palliative care and case management have been unable to locate family despite search. Problem List: (1) Myocardial infarction acute Status: Acute Plan: Cardiac arrest s/p CPR with ROSC on 08/20. Troponin as high as >40 and EKG with LBBB. Cardiology consulted and patient in too critical condition for intervention at this time. - 2D echo with diffuse hypokinesis and LVEF 25% - Continue baby ASA - Eliquis held secondary to rectal bleeding (2) Respiratory failure Status: Acute Plan: Status post trach 09/01., awake, and alert. (3) DVT (deep venous thrombosis) Status: Acute Plan: DVT and left brachial vein Subcutaneous heparin Monitor for any active GI bleed, and notify GI if any active bleeding noted. (4) Rectal bleeding Status: Resolved Plan: Pt with anemia and acute rectal bleeding was noted. - GI consulted. S/P normal EGD - Protonix 40 mg IV BID - Monitor for active bleeding - H&H stable. Continue to monitor (5) Decubitus ulcer, stage 3 Status: Acute Plan: Patient with large decubitus ulcer over lower back; appears to be healing with good granulation tissue -Wound care consulted, appreciate recommendations * Collagenase ointment to be applied daily * Wound dressing changes daily per RN (6) Anemia Status: Resolved Plan: Likely secondary to chronic disease with GI bleeding. Hematology consulted and patient on Procrit - FOBT + and GI consulted; EGD done 08/26 and was normal - Continue iron supplementation - Continue Protonix - Monitor H&H (7) [id number] kidney injury Status: Acute Plan: Currently stable. - Nephrology consulted - Avoid nephrotoxic meds - Closely monitor I&O - Renal U/S unremarkable (8) Altered mental status Status: Chronic Plan: Pt likely with recent anoxic brain injury due to decreased brain perfusion secondary to cardiac arrest. He has had multiple ischemic strokes in the past including a lacunar infarct on 10/20/15. At patient's baseline he is able to communicate with yes or no answers. He has also been able to express himself using complete sentences. - CT head 08/21 with no acute disease - EEG showing changes with diffuse encephalopathy (9) Chronic systolic (congestive) heart failure Status: Chronic Plan: Patient with hx of CHF, EF 35% from September 2015. -Echo from 08/20 significant for EF of 20-25% with diffuse hypokinesis. -Lasix 40 mg IV twice a day (10) Coronary artery disease Status: Chronic Plan: Continue statin. Antihypertensives held in light of hypotensive shock. Eliquis held secondary to rectal bleeding. (11) HTN (hypertension) Status: Chronic Plan: Holding home meds in light of hypotension. (12) Low vitamin D level Status: Acute Plan: Vitamin D low at 11.6. -Cholecalciferol 2000 units po Daily -Calcium carbonate 500 mg BID (13) Diabetes mellitus Status: Chronic Plan: A1C 6.9 on 11/25/15, not on oral medications as an outpatient. - Continue to monitor - Low dose SSI (14) Nutrition, metabolism, and development symptoms Status: Acute Plan: - Fluids: Free water via PEG - Electrolytes: Monitor and replete as needed - Nutrition: Glucerna tube feeds with goal 1.5 at 60 ml/hr - DVT prophylaxis: Subcutaneous heparin. Monitor for GI bleed. - GI prophylaxis: on PPI (15) UTI (urinary tract infection) Status: Resolved Plan: Repeat UA on 08/18 significant for hazy appearance, 30 protein, small occult blood, positive nitrites, large leukocyte esterase, many white blood cell clumps, moderate bacteria. Urine culture: Pseudomonas aeruginosa, sensitive to cefepime Continue Cefepime 1gm BID (08/19-09/03) Problem Qualifiers (1) DVT (deep venous thrombosis): Qualified Code: I82.622 - Acute deep vein thrombosis (DVT) of brachial vein of left upper extremity (2) Anemia: Qualified Code: D50.8 - Other iron deficiency anemia (3) Altered mental status: Qualified Code: R41.82 - Altered mental status, unspecified altered mental status type (4) Coronary artery disease: Qualified Code: I25.10 - Coronary artery disease involving [place] heart without angina pectoris, unspecified vessel or lesion type (5) HTN (hypertension): Qualified Code: I10 - Essential hypertension (6) Diabetes mellitus: Qualified Code: E11.51 - Type 2 diabetes mellitus with diabetic peripheral angiopathy without gangrene, without long-term current use of insulin Balbir Nguyễn MD R2 September 03, 2016 10:28
[2016-09-03 11:36] LABS: ALKALINE PHOSPHATASE 153 U/L (45-117); ALT (GPT) 14 U/L (12-78); ANION GAP 8 MEQ/L (5-15); AST (GOT) 14 U/L (15-37); BICARBONATE 28.6 MEQ/L (21.0-32.0); BLOOD UREA NITROGEN 34 MG/DL (7-18); CHLORIDE 101 MEQ/L (98-107); GLOMERULAR FILTRATION RATE 46 ML/MIN (>89); POTASSIUM 3.7 MEQ/L (3.5-5.1); SODIUM (NA) 138 MEQ/L (136-145); TOTAL BILIRUBIN ADULT 0.3 MG/DL (0.2-1.0)
--- NOTE | 2016-09-03 13:31 | HHI.CCPN ---
Subjective Remarks/Hospital Course 08/20: 61-year-old male admitted on 07/25/2016 by family medicine service after he was found at home by DCF not being able to take care of himself lying on the ground in his own feces. Previously patient was in the hospital from October 15, 2015 to July 18, 2016. During this hospitalization he was noted to be anemic secondary to anemia of chronic disease as well as possible myelosuppression for which she received blood transfusions and Procrit and was evaluated by hematology. He also has a PEG tube placed during this admission for maintaining his nutritional status. His neurologic status fluctuates and he goes from conversing to being encephalopathic. He has had multiple strokes and does have coronary artery disease with previous CABG and stenting. He is on Eliquis for anticoagulation and does have an ischemic cardiomyopathy as well as diabetes mellitus. He was recently started on Rocephin for a UTI. This morning patient was noted to have hypotension and some altered mental status. He was given fluid bolus and a chest x-ray was done earlier. Subsequently around 7 AM CODE BLUE cardiac arrest code was called for which I responded to the floor. At the time of my arrival patient was being ventilated with bag mask ventilation. He initially had agonal respirations. He was noted to be in asystole on the monitor subsequently so CPR/ACLS protocol was initiated. Patient had return of circulation following about 15 minutes of ACLS protocol and was noted to have a left bundle branch block which appeared old. He was started on an epinephrine drip for hypotension and transported to [facility]. Shortly following his arrival to the unit he underwent another episode of bradycardia and subsequently lost his pulse. CPR/ACLS protocol was initiated and he had return of spontaneous circulation following about 5 minutes of ACLS. He had a central line and a femoral arterial line placed emergently by myself. Stat labs were sent as well as ABG. Patient was continued on mechanical ventilation. He subsequently had 2 further episodes of cardiac arrest from which he was successfully resuscitated. History was obtained by reviewing records and discussion with family medicine team and floor as well as floor nursing staff. 08/21: Remains sedated, orally intubated on mechanical ventilation. Sedation held this morning to assess neurologic status. On dopamine 5 mics per KG per minute. Off other pressors at this time. Troponin greater than 40 this morning. On Protonix drip which was started yesterday for some rectal bleeding which is now stopped. EF 25% on 2-D echo done yesterday. Eliquis continues to be on hold. On aspirin. 08/22: Dopamine 2.5mcgs weaned off this morning. The patient appears hemodynamically stable, normotensive. 08/23: Tmax 99.7. Dopamine remained off overnight, patient remains normotensive. Overnight the patient began to follow commands moving his extremities 4. CPAP trials to begin today. Physical therapy order for functional maintenance. Leukocytosis trending down. Will discontinue femoral central line and arterial line today. 08/24: Afebrile. CPAP was initiated today, the pain patient continues on CPAP since 8:30 this morning 10/5/FiO2 of 30%. He remains hemodynamically stable at this point, we'll reconsult GI regarding possible upper endoscopy and colonoscopy, defer recommendations regarding heparin. 08/25: Afebrile. The patient continues on CPAP trials, planned meeting with palliative care and DCF unsuccessful today rescheduling will be attempted. The patient is tracking and following commands. 08/26: Tmax 99 .8. The patient underwent venous Doppler ultrasound of extremities yesterday, negative results. The patient scheduled to undergo EGD today secondary to previous GI bleed. The patient was placed out of bed into recliner chair today. Plan for hospice consult palliative care team with conversation with DCF. 08/27: Patient continues to be maintained on CPAP trials, with discontinuation. Plan for SBT parameters in the a.m., and a trial of extubation. The patient's interacting nodding head to yes and no questions appropriately. Patient normotensive. Hospice consult initiated by family medicine. 08/28: Patient remained on CPAP all night, however has several periods of apnea and attempted to self extubate this morning. Heparin subcutaneous was initiated , patient was placed on tube feeds. 08/29: Patient experienced multiple episodes of wide complex V tachycardia during the night. Electrolytes repleted, the patient continues on CPAP with periods of apnea. Hospice consult plan for today. 08/30: Continues periods of apnea. Due to social situation regarding consent we will go ahead an perform tracheostomy to at least promote transition. 08/31: Apneic periods persist - I will perform trach in a.m. 09/01: Tracheostomy performed. Will work toward trach collar now. 09/02: Comfortable on trach collar. Objective Vital Signs Date Time Temp Pulse Resp B/P Pulse Ox O2 Delivery O2 Flow Rate FiO2 09/03/16 12:00 96 09/03/16 12:00 98.0 19 141/90 98 09/03/16 08:09 T-piece 40 09/03/16 04:44 6.00 Intake and Output 09/02/16 09/02/16 09/03/16 08:00 16:00 00:00 Intake Total 1018 ml 1132 ml 994 ml Output Total 300.0 ml 850.0 ml 1350 ml Balance 718.0 ml 282.0 ml -356 ml Result Diagram: 08/30/16 0220 09/03/16 1053 Imaging Last 24 hours Impressions Chest X-Ray 08/20/16 0500 Signed Impressions: Service Date/Time: Saturday, August 20, 2016 05:06 - CONCLUSION: Low lung volumes with bibasilar consolidation. Consolidation could relate to atelectasis or infiltrates. Daryl Prabhakar Jr., MD Chest X-Ray 08/20/16 0000 Signed Impressions: Service Date/Time: Saturday, August 20, 2016 08:15 - CONCLUSION: 1. ET tube in good position. 2. Mild diffuse increased interstitial markings likely representing edema. Camacho Santana MD Last Impressions Chest X-Ray 08/20/16 0500 Signed Impressions: Service Date/Time: Saturday, August 20, 2016 05:06 - CONCLUSION: Low lung volumes with bibasilar consolidation. Consolidation could relate to atelectasis or infiltrates. Daryl Prabhakar Jr., MD Bone Osseous Survey 07/31/16 0000 Signed Impressions: Service Date/Time: Sunday, July 31, 2016 16:09 - CONCLUSION: Unremarkable bone survey. Incidental note made of median sternotomy. Multiple gallstones. Richard Gerber MD Head CT 07/25/16 1644 Signed Impressions: Service Date/Time: Monday, July 25, 2016 17:19 - CONCLUSION: 1. Lacunar infarcts bilaterally, worse on the left. 2. Negative for an acute process. Didier Clay MD FACR Renal Ultrasound 07/25/16 0000 Signed Impressions: Service Date/Time: Monday, July 25, 2016 20:55 - CONCLUSION: 1. Tiny nonobstructing calcified left renal calculi. 2. No hydronephrosis or solid renal mass. Efren Cleaning MD Objective Remarks Neuro: Alert and responsive, moving extremities 4. Localizing/ withdraws, orally intubated. Pallor present, no icterus, tongue/ mucosa moist. Tracks with eyes. Neck: Supple, trachea midline Chest/Pulm: on mech vent, good air entry bilaterally, clear to auscultation bilaterally, no wheezing. CVS: S1-S2 regular, no murmur, rubs or gallops. No JVD. GI/abdomen: soft, nontender, bowel sounds sluggish. PEG tube in place. Extremities: warm bilaterally, trace bilateral monitor edema upper and lower extremities. Date of Removal: Aug 23, 2016 Line: Central Venous Catheter Side: Left Location: Femoral A/P Assessment and Plan 61-year-old male with: Cardiac arrest status post CPR Acute respiratory failure on mechanical ventilation Pulmonary edema Shock(resolved) Encephalopathy suspected anoxic brain damage in the setting of poor baseline neurologic function: Elevated troponin with acute TN Ischemic cardiomyopathy History of CHF with EF 35% PAT/ CKD History of strokes Anemia of chronic disease Diabetes mellitus Myelosuppression Monoclonal gammopathy Sacral decubitus ulcer Status post PEG tube placement UTI Possible sepsis BKA right lower extremity Plan: Neuro: Currently all sedation, monitor neuro status. Patient following some commands moving extremities 4. Interacting to yes and no questions History of multiple strokes . Head CT negative for bleed (08/21) was on Eliquis for prior strokes however currently on hold due to rectal bleeding. Restart anticoagulation when okay with GI. Currently still on hold Cardiovascular: Off epinephrine/Levophed. Dopamine discontinued 08/22. EKG with left bundle branch block. Troponin greater than 40 noted. Cardiology: Dr. Damián Arias not planning any intervention at this time due to poor neurologic status and elevated creatinine. Continue Aspirin. Eliquis last dose on 08/19 pm - continue holding due to rectal bleed 08/20. 2D echo with diffuse hypokinesis, LVEF 25%() Pulmonary: Continue mechanical ventilation, vent bundle, bronchodilators as needed. Continue CPAP trials DuoNeb treatments every 6 hours scheduled every 2 hours when necessary Plan for trial of extubation discontinued, secondary to patient has periods of apnea Plan tracheostomy. GI/liver: Continue PEG feeds with Glucerna @ 30cc/hr. Advance to goal. Currently on hold 08/26 EGD Zofran for nausea Renal/: Given Lasix 80 mg IV stat on 08/20 for pulmonary edema. Strict intake output Monitor and replete electrolytes follow BUN creatinine. Will continue lasix to maintain even to slightly negative fluid balance Endocrine: SSI for glycemic control Heme: Transfused 1 unit PRBC on 08/20. Follow CBC. Being followed by hematology. Transfused 1 unit PRBCs 08/20 in view of acute TN to bring hemoglobin closer to 9 g percent ID: On Cefepime for UTI. Urine culture with Pseudomonas recently. Repeat cultures sent. MSK: Status post BKA 08/26 venous Doppler ultrasound Upper extremity-DVT left brachial vein, superficial thrombosed basilic and cephalic vein, B/L lower extremities negative Prophylaxis: PPI/SCDs. SQ heparin initiated 08/28 with GI clearance Lines: Left femoral central venous catheter, left femoral arterial line placed on 08/20-08/24 Prognosis appears extremely poor. Dispo: DCF assigned as decision maker for patient, palliative care team meeting via telephone 08/26/16, plan for hospice consult. Discussed with family medicine service, Discussed with ICU nursing staff. Overall impression: Hospitalization prolonged due to apneic spells, trach inserted and no more apnea X 48 hours. Transfer to floor. Bobby Frost MD September 03, 2016 13:31
[2016-09-03] MEDS ORDERED: LACTULOSE SYRUP 20 GM/30 ML CUP PEG PRN (15:00)
[2016-09-03] MEDS ORDERED: BISACODYL 10 MG SUPP RECTAL PRN (15:00)
[2016-09-03] MEDS ORDERED: MAGNESIUM HYDROXIDE SUSP 30 ML CUP PEG PRN (15:00)
[2016-09-03] MEDS: ATORVASTATIN 80 MG TAB PO SCH (21:23)
[2016-09-03] MEDS: MIRTAZAPINE 15 MG TAB PO SCH (21:23)
[2016-09-04] VITALS (10 sets, daily range): BP systolic 103–128; BP diastolic 69–90; PULSE 80–115; RESP 18–22; TEMP 96–99.9; O2SAT 96–100
[2016-09-04] MEDS: PANTOPRAZOLE SODIUM 40 MG VIAL IV PUSH SCH ×3 (00:15→22:31)
[2016-09-04] MEDS: FREE WATER G-TUBE SCH ×6 (04:00→20:00)
[2016-09-04] MEDS: INSULIN ASPART SUPPLEMENTAL SCALE SQ SCH ×4 (05:54→22:34)
[2016-09-04 06:52] LABS: AUTOMATED NEUTROPHIL # 12.1 TH/MM3 (1.8-7.7); BASOPHIL # 0.1 TH/MM3 (0-0.2); BASOPHIL % 0.4 % (0.0-2.0); EOSINOPHIL # 0.5 TH/MM3 (0-0.4); EOSINOPHIL % 3.1 % (0.0-4.0); HEMATOCRIT 29.1 % (39.0-51.0); LYMPH % 9.3 % (9.0-44.0); LYMPHOCYTE # 1.4 TH/MM3 (1.0-4.8); MEAN CELL VOLUME 81.1 FL (80.0-100.0); MEAN CORPUSCULAR HEMOGLOBIN 27.1 PG (27.0-34.0); MEAN CORPUSCULAR HGB CONC 33.4 % (32.0-36.0); MONO % 8.5 % (0.0-8.0); NEUT % 78.7 % (16.0-70.0); PLATELET COUNT 307 TH/MM3 (150-450); RED BLOOD COUNT 3.59 MIL/MM3 (4.50-5.90); RED CELL DISTRIBUTION WIDTH 17.4 % (11.6-17.2); WHITE BLOOD COUNT 15.4 TH/MM3 (4.0-11.0)
[2016-09-04 06:55] LABS: HEMO FLAGS AUTO DIFF
[2016-09-04 07:07] LABS: ALKALINE PHOSPHATASE 177 U/L (45-117); ALT (GPT) 17 U/L (12-78); ANION GAP 8 MEQ/L (5-15); AST (GOT) 25 U/L (15-37); BICARBONATE 31.8 MEQ/L (21.0-32.0); BLOOD UREA NITROGEN 35 MG/DL (7-18); CHLORIDE 96 MEQ/L (98-107); GLOMERULAR FILTRATION RATE 45 ML/MIN (>89); SODIUM (NA) 136 MEQ/L (136-145); TOTAL BILIRUBIN ADULT 0.3 MG/DL (0.2-1.0)
--- NOTE | 2016-09-04 07:23 | HHI.FPPN ---
Subjective Remarks No acute events overnight. Vital signs unremarkable with the exception of an elevated pulse. This morning patient is awake and alert and does shake his head yes and no appropriately. Is also able to follow commands. Per discussion with nurse, there was concern about possible bleeding from patient's trach but does not appear to have active bleeding at this time. Objective Vitals Vital Signs Date Time Temp Pulse Resp B/P Pulse Ox O2 Delivery O2 Flow Rate FiO2 09/04/16 05:25 96.0 112 22 128/90 99 09/04/16 01:00 97.1 115 18 122/86 100 09/04/16 00:00 108 09/03/16 22:39 99 T-piece 6.00 35 09/03/16 21:00 100 T-Piece 35 09/03/16 20:00 96.5 108 22 130/97 99 09/03/16 17:45 100 T-piece 35 09/03/16 17:00 98.8 104 21 134/94 99 09/03/16 14:00 96 09/03/16 12:00 96 09/03/16 12:00 98.0 100 19 141/90 98 09/03/16 10:00 101 09/03/16 08:09 99 T-piece 40 09/03/16 08:00 103 09/03/16 08:00 98.5 104 20 144/91 97 I/O 09/03/16 09/03/16 09/03/16 09/04/16 09/04/16 09/04/16 07:00 15:00 23:00 07:00 15:00 23:00 Intake Total 1052 ml 1121 ml 300 ml 600 ml Output Total 300 ml 825 ml 1650 ml Balance 752 ml 296 ml -1350 ml 600 ml IV Total 76 ml 175 ml Tube Feeding 376 ml 346 ml Other 600 ml 600 ml 300 ml 600 ml Output Urine Total 300 ml 825 ml 1650 ml # Bowel Movements 0 0 0 Result Diagram: 09/04/1655409/04/16554 Objective Remarks GENERAL: male laying in bed with tracheostomy. SKIN: Warm and dry. HEENT: Tracks eyes. HEART: RRR no m/r/g. LUNGS: Good air movement. Anterior lung sounds coarse. Trach in place. ABDOMEN:Soft, NT, ND. PEG tube in place. EXTREMITIES: R BKA. LLE without edema. NEURO: Responding to commands. Date of Removal: Aug 23, 2016 Line: Central Venous Catheter Side: Left Location: Femoral A/P Assessment and Plan 61 yo M, hx of prolonged hospital stay from September 2015 - July 18, 2016, having returned to the hospital on July 22 for fall. Admitted for AMS, rhabdomyolysis , dehydration, hypernatremia and anemia. PEG tube has been placed due to decreased PO intake and dehydration. Patient has improved from critical condition due to ischemic cardiac event. Cardiology was consulted, no interventions anticipated. DCF making decisions for patient and palliative care and case management working with communication. Code status cannot be changed per DCF but agreeable to hospice. Awaiting DCF call back for paperwork to be signed to go to hospice. Discharge Planning Per palliative note on 09/02: Call from Codey Rich CM who indicates DCF [address] court order granting authorization for hospice care, he was going to place court order in pocket on patient chart. Notified [facility] to see patient for admission. Patient now on t-piece. Hospice appropriate. Palliative care and case management have been unable to locate family despite search. -Awaiting DCF to sign paperwork so that patient can be discharged to hospice wdw Dr. Santos Problem List: (1) Myocardial infarction acute Status: Acute Plan: Cardiac arrest s/p CPR with ROSC on 08/20. Troponin as high as >40 and EKG with LBBB. Cardiology consulted and patient in too critical condition for intervention at this time. - 2D echo with diffuse hypokinesis and LVEF 25% - Continue baby ASA - Eliquis held secondary to rectal bleeding -Repeat EKG 09/04/16 due to elevated pulse (2) Respiratory failure Status: Acute Plan: Status post trach 09/01., awake, and alert. (3) DVT (deep venous thrombosis) Status: Acute Plan: DVT and left brachial vein Subcutaneous heparin Monitor for any active GI bleed, and notify GI if any active bleeding noted. (4) Rectal bleeding Status: Resolved Plan: Pt with anemia and acute rectal bleeding was noted. - GI consulted. S/P normal EGD - Protonix 40 mg IV BID - Monitor for active bleeding - H&H stable. Continue to monitor (5) Decubitus ulcer, stage 3 Status: Acute Plan: Patient with large decubitus ulcer over lower back; appears to be healing with good granulation tissue -Wound care consulted, appreciate recommendations * Collagenase ointment to be applied daily * Wound dressing changes daily per RN (6) Anemia Status: Resolved Plan: Likely secondary to chronic disease with GI bleeding. Hematology consulted and patient on Procrit - FOBT + and GI consulted; EGD done 08/26 and was normal - Continue iron supplementation - Continue Protonix - Monitor H&H (7) Ysgaa-[id number] kidney injury Status: Acute Plan: Currently stable. - Nephrology consulted - Avoid nephrotoxic meds - Closely monitor I&O - Renal U/S unremarkable (8) Altered mental status Status: Resolved Plan: Pt likely with recent anoxic brain injury due to decreased brain perfusion secondary to cardiac arrest. He has had multiple ischemic strokes in the past including a lacunar infarct on 10/20/15. At patient's baseline he is able to communicate with yes or no answers. He has also been able to express himself using complete sentences. - CT head 08/21 with no acute disease - EEG showing changes with diffuse encephalopathy (9) Chronic systolic (congestive) heart failure Status: Chronic Plan: Patient with hx of CHF, EF 35% from September 2015. -Echo from 08/20 significant for EF of 20-25% with diffuse hypokinesis. -Lasix 40 mg IV twice a day (10) Coronary artery disease Status: Chronic Plan: Continue statin. Antihypertensives held in light of hypotensive shock. Eliquis held secondary to rectal bleeding. (11) HTN (hypertension) Status: Chronic Plan: Holding home meds in light of hypotension. (12) Low vitamin D level Status: Acute Plan: Vitamin D low at 11.6. -Cholecalciferol 2000 units po Daily -Calcium carbonate 500 mg BID (13) Diabetes mellitus Status: Chronic Plan: A1C 6.9 on 11/25/15, not on oral medications as an outpatient. - Continue to monitor - Low dose SSI (14) UTI (urinary tract infection) Status: Resolved Plan: Repeat Urine culture on 08/18 Pseudomonas aeruginosa, sensitive to cefepime Cefepime 1gm BID (08/19-09/03) --Consider resuming as patient's WBC increased as well as pulse after discontinuation of abx. If patient worsens clinically or develop more symptoms, will restart cefepime * repeat UA * monitor closely as patient will quickly decline (15) Nutrition, metabolism, and development symptoms Status: Acute Plan: - Fluids: Free water via PEG - Electrolytes: Monitor and replete as needed - Nutrition: Jevity tube feeds with goal 1.5 at 60 ml/hr - DVT prophylaxis: Subcutaneous heparin. Monitor for GI bleed. - GI prophylaxis: on PPI Problem Qualifiers (1) DVT (deep venous thrombosis): Qualified Code: I82.622 - Acute deep vein thrombosis (DVT) of brachial vein of left upper extremity (2) Anemia: Qualified Code: D50.8 - Other iron deficiency anemia (3) Altered mental status: Qualified Code: R41.82 - Altered mental status, unspecified altered mental status type (4) Coronary artery disease: Qualified Code: I25.10 - Coronary artery disease involving [place] heart without angina pectoris, unspecified vessel or lesion type (5) HTN (hypertension): Qualified Code: I10 - Essential hypertension (6) Diabetes mellitus: Qualified Code: E11.51 - Type 2 diabetes mellitus with diabetic peripheral angiopathy without gangrene, without long-term current use of insulin Cortney Harrington MD R2 September 04, 2016 07:23
[2016-09-04] MEDS: levETIRAcetam INJ 500 MG in SODIUM CHLORIDE 0.9% INJ 100 ML IV SCH ×2 (08:34→22:33)
[2016-09-04] MEDS: FUROSEMIDE 40 MG/4 ML VIAL IV PUSH SCH ×2 (08:34→16:49)
[2016-09-04] MEDS: FERROUS SULFATE 300 MG /5ML UDC PEG SCH (08:35)
[2016-09-04] MEDS: ASPIRIN 81 MG CHEW TAB G-TUBE SCH (08:36)
[2016-09-04] MEDS: CALCIUM CARBONATE 500 MG CHEWABLE TAB CHEW SCH ×2 (08:36→22:33)
[2016-09-04] MEDS: CHOLECALCIFEROL (VIT D3) 1000 UNIT TAB PO SCH (08:36)
[2016-09-04] MEDS: SODIUM CHLORIDE 0.9% FLUSH 10 ML FLUSH IV FLUSH SCH ×2 (08:36→22:33)
[2016-09-04] MEDS: COLLAGENASE OINT 30 GM TUBE TOPICAL SCH (08:37)
[2016-09-04] MEDS: NYSTATIN 100,000 UNIT/GM CREAM 15 GM TOPICAL SCH ×2 (08:37→22:32)
[2016-09-04 08:50] LABS: BANDS 2 % (0-6); EOSINOPHILS 5 % (0-4); NEUTROPHIL # MANUAL DIFF 13.2 TH/MM3 (1.8-7.7); POLYS (SEG NEUTROPHILS) 84 % (16-70); WBC DIFF SAMPLE 100
[2016-09-04 08:51] LABS: PLATELET ESTIMATE SMEAR NORMAL (NORMAL); PLATELET MORPHOLOGY NORMAL (NORMAL); SCAN/DIFF FINAL DIFF MANUAL
[2016-09-04] MEDS ORDERED: CARVEDILOL 3.125 MG TAB PO ONE (10:30)
--- NOTE | 2016-09-04 10:42 | EKG ---
Date Performed: 09/04/2016 Time Performed: 09:52:24 PTAGE: 61 years EKG: Possible sinus tachycardia MARKED LEFT AXIS DEVIATION Electrical interference PREVIOUS TRACING : 08/29/2016 03.00 DOCTOR: Mily Narayan Interpretating Date/Time 09/04/2016 10:41:12
[2016-09-04 11:30] LABS: BACTERIA, URINE MANY /hpf; BLOOD, URINE TRACE (NEG); COMMENT (UR) CULTURE INDICATED; CULTURE IF INDICATED CULTURE INDICATED; GLUCOSE,URINE NEG (NEG); KETONE, URINE NEG (NEG); MUCUS URINE FEW /lpf (OCC); NITRITE,URINE NEG (NEG); SQUAMOUS EPITHELIAL CELL URINE 1 /hpf (0-5); URINE COLOR LIGHT-YELLOW (YELLW/STRAW)
[2016-09-04] MEDS: CARVEDILOL 3.125 MG TAB PO SCH (22:32)
[2016-09-04] MEDS: MIRTAZAPINE 15 MG TAB PO SCH (22:32)
[2016-09-04] MEDS: ATORVASTATIN 80 MG TAB PO SCH (22:32)
[2016-09-05] VITALS (9 sets, daily range): BP systolic 104–131; BP diastolic 73–94; PULSE 90–103; RESP 18–20; TEMP 95.9–98.2; O2SAT 96–100
[2016-09-05] MEDS: FREE WATER G-TUBE SCH ×6 (04:00→20:00)
[2016-09-05 07:44] LABS: BASOPHIL % 0.4 % (0.0-2.0); EOSINOPHIL # 0.3 TH/MM3 (0-0.4); EOSINOPHIL % 2.5 % (0.0-4.0); HEMATOCRIT 31.9 % (39.0-51.0); HEMO FLAGS DIFF FINAL; LYMPH % 11.4 % (9.0-44.0); LYMPHOCYTE # 1.4 TH/MM3 (1.0-4.8); MEAN CORPUSCULAR HGB CONC 31.7 % (32.0-36.0); MONO % 10.6 % (0.0-8.0); NEUT % 75.1 % (16.0-70.0); PLATELET COUNT 250 TH/MM3 (150-450); RED BLOOD COUNT 3.89 MIL/MM3 (4.50-5.90)
--- NOTE | 2016-09-05 07:52 | HHI.FPPN ---
Subjective Remarks No acute concerns. Responding to commands. Resting comfortably. Objective Vitals Vital Signs Date Time Temp Pulse Resp B/P Pulse Ox O2 Delivery O2 Flow Rate FiO2 09/05/16 06:35 95.9 97 18 131/94 96 09/05/16 00:00 97.3 95 18 108/73 97 09/04/16 22:14 98 T-piece 35 09/04/16 20:30 108 09/04/16 20:30 100 T-Piece 35 09/04/16 20:00 97.4 99 22 125/88 98 09/04/16 16:00 99.9 109 18 115/70 96 09/04/16 11:58 98.7 114 18 114/69 96 09/04/16 08:00 98.6 110 18 119/76 97 I/O 09/04/16 09/04/16 09/04/16 09/05/16 09/05/16 09/05/16 07:00 15:00 23:00 07:00 15:00 23:00 Intake Total 600 ml 200 ml 400 ml Output Total 350 ml 550 ml 300 ml Balance 600 ml -350 ml -350 ml 100 ml Other 600 ml 200 ml 400 ml Output Urine Total 350 ml 550 ml 300 ml # Bowel Movements 0 0 0 Result Diagram: 09/05/16 0702 09/04/16 0555 Objective Remarks GENERAL: male laying in bed with tracheostomy. SKIN: Warm and dry. HEENT: Tracks eyes. HEART: RRR no m/r/g. LUNGS: Good air movement. Anterior lung sounds coarse. Trach in place. ABDOMEN:Soft, NT, ND. PEG tube in place. EXTREMITIES: R BKA. LLE without edema. NEURO: Responding to commands. Date of Removal: Aug 23, 2016 Line: Central Venous Catheter Side: Left Location: Femoral A/P Assessment and Plan 61 yo M, hx of prolonged hospital stay from September 2015 - July 18, 2016, having returned to the hospital on July 22 for fall. Admitted for AMS, rhabdomyolysis , dehydration, hypernatremia and anemia. PEG tube has been placed due to decreased PO intake and dehydration. Patient has improved from critical condition due to ischemic cardiac event. Cardiology was consulted, no interventions anticipated. DCF making decisions for patient and palliative care and case management working with communication. Code status cannot be changed per DCF but agreeable to hospice. Awaiting DCF call back for paperwork to be signed to go to hospice. Discharge Planning Per palliative note on 09/02: Call from Codey Rich CM who indicates DCF circuit court order granting authorization for hospice care, he was going to place court order in pocket on patient chart. Notified [facility] to see patient for admission. Patient now on t-piece. Hospice appropriate. Palliative care and case management have been unable to locate family despite search. -Awaiting DCF to sign paperwork so that patient can be discharged to hospice Problem List: (1) Myocardial infarction acute Status: Acute Plan: Cardiac arrest s/p CPR with ROSC on 08/20. Troponin as high as >40 and EKG with LBBB. Cardiology consulted and patient in too critical condition for intervention at this time. - 2D echo with diffuse hypokinesis and LVEF 25% - Continue baby ASA - Eliquis held secondary to rectal bleeding -Repeat EKG 09/04/16 due to elevated pulse (2) Respiratory failure Status: Acute Plan: Status post trach 09/01., awake, and alert. (3) DVT (deep venous thrombosis) Status: Acute Plan: DVT and left brachial vein Subcutaneous heparin Monitor for any active GI bleed, and notify GI if any active bleeding noted. (4) Rectal bleeding Status: Resolved Plan: Pt with anemia and acute rectal bleeding was noted. - GI consulted. S/P normal EGD - Protonix 40 mg IV BID - Monitor for active bleeding - H&H stable. Continue to monitor (5) Decubitus ulcer, stage 3 Status: Acute Plan: Patient with large decubitus ulcer over lower back; appears to be healing with good granulation tissue -Wound care consulted, appreciate recommendations * Collagenase ointment to be applied daily * Wound dressing changes daily per RN (6) Anemia Status: Resolved Plan: Likely secondary to chronic disease with GI bleeding. Hematology consulted and patient on Procrit - FOBT + and GI consulted; EGD done 08/26 and was normal - Continue iron supplementation - Continue Protonix - Monitor H&H (7) Nkwil-ol-uuddjsj kidney injury Status: Acute Plan: Currently stable. - Nephrology consulted - Avoid nephrotoxic meds - Closely monitor I&O - Renal U/S unremarkable (8) Altered mental status Status: Resolved Plan: Pt likely with recent anoxic brain injury due to decreased brain perfusion secondary to cardiac arrest. He has had multiple ischemic strokes in the past including a lacunar infarct on 10/20/15. At patient's baseline he is able to communicate with yes or no answers. He has also been able to express himself using complete sentences. - CT head 08/21 with no acute disease - EEG showing changes with diffuse encephalopathy (9) Chronic systolic (congestive) heart failure Status: Chronic Plan: Patient with hx of CHF, EF 35% from September 2015. -Echo from 08/20 significant for EF of 20-25% with diffuse hypokinesis. -Lasix 40 mg IV twice a day (10) Coronary artery disease Status: Chronic Plan: Continue statin. Antihypertensives held in light of hypotensive shock. Eliquis held secondary to rectal bleeding. (11) HTN (hypertension) Status: Chronic Plan: Holding home meds in light of hypotension. (12) Low vitamin D level Status: Acute Plan: Vitamin D low at 11.6. -Cholecalciferol 2000 units po Daily -Calcium carbonate 500 mg BID (13) Diabetes mellitus Status: Chronic Plan: A1C 6.9 on 11/25/15, not on oral medications as an outpatient. - Continue to monitor - Low dose SSI (14) UTI (urinary tract infection) Status: Resolved Plan: Repeat Urine culture on 08/18 Pseudomonas aeruginosa, sensitive to cefepime Cefepime 1gm BID (08/19-09/03) --Consider resuming as patient's WBC increased as well as pulse after discontinuation of abx. If patient worsens clinically or develop more symptoms, will restart cefepime * repeat UA * monitor closely as patient will quickly decline (15) Nutrition, metabolism, and development symptoms Status: Acute Plan: - Fluids: Free water via PEG - Electrolytes: Monitor and replete as needed - Nutrition: Jevity tube feeds with goal 1.5 at 60 ml/hr - DVT prophylaxis: Subcutaneous heparin. Monitor for GI bleed. - GI prophylaxis: on PPI Problem Qualifiers (1) DVT (deep venous thrombosis): Qualified Code: I82.622 - Acute deep vein thrombosis (DVT) of brachial vein of left upper extremity (2) Anemia: Qualified Code: D50.8 - Other iron deficiency anemia (3) Altered mental status: Qualified Code: R41.82 - Altered mental status, unspecified altered mental status type (4) Coronary artery disease: Qualified Code: I25.10 - Coronary artery disease involving [place] heart without angina pectoris, unspecified vessel or lesion type (5) HTN (hypertension): Qualified Code: I10 - Essential hypertension (6) Diabetes mellitus: Qualified Code: E11.51 - Type 2 diabetes mellitus with diabetic peripheral angiopathy without gangrene, without long-term current use of insulin Balbir Nguyễn MD R2 September 05, 2016 07:52
[2016-09-05 07:53] LABS: BICARBONATE 32.1 MEQ/L (21.0-32.0); POTASSIUM 3.7 MEQ/L (3.5-5.1)
[2016-09-05] MEDS: COLLAGENASE OINT 30 GM TUBE TOPICAL SCH (09:00)
[2016-09-05] MEDS: CARVEDILOL 3.125 MG TAB PO SCH ×2 (09:24→22:36)
[2016-09-05] MEDS: FERROUS SULFATE 300 MG /5ML UDC PEG SCH (09:24)
[2016-09-05] MEDS: CHOLECALCIFEROL (VIT D3) 1000 UNIT TAB PO SCH (09:25)
[2016-09-05] MEDS: ASPIRIN 81 MG CHEW TAB G-TUBE SCH (09:25)
[2016-09-05] MEDS: CALCIUM CARBONATE 500 MG CHEWABLE TAB CHEW SCH ×2 (09:26→22:36)
[2016-09-05] MEDS: SODIUM CHLORIDE 0.9% FLUSH 10 ML FLUSH IV FLUSH SCH ×2 (09:27→22:36)
[2016-09-05] MEDS: levETIRAcetam INJ 500 MG in SODIUM CHLORIDE 0.9% INJ 100 ML IV SCH ×2 (09:27→22:36)
[2016-09-05] MEDS: FUROSEMIDE 40 MG/4 ML VIAL IV PUSH SCH ×2 (09:27→17:09)
[2016-09-05] MEDS: NYSTATIN 100,000 UNIT/GM CREAM 15 GM TOPICAL SCH ×2 (09:28→22:53)
[2016-09-05] MEDS: INSULIN ASPART SUPPLEMENTAL SCALE SQ SCH ×3 (11:00→21:00)
[2016-09-05] MEDS: PANTOPRAZOLE SODIUM 40 MG VIAL IV PUSH SCH (11:33)
[2016-09-05] MEDS: ATORVASTATIN 80 MG TAB PO SCH (22:35)
[2016-09-05] MEDS: MIRTAZAPINE 15 MG TAB PO SCH (22:35)
[2016-09-06] VITALS: BP 111/81; PULSE 102; RESP 20; TEMP 97.3; O2SAT 100
[2016-09-06] MEDS: PANTOPRAZOLE SODIUM 40 MG VIAL IV PUSH SCH ×2 (02:12→11:36)
[2016-09-06 04:00] VITALS: BP 119/85; PULSE 80; RESP 20; TEMP 95.9; O2SAT 99
[2016-09-06] MEDS: FREE WATER G-TUBE SCH ×4 (04:00→11:36)
[2016-09-06] MEDS: INSULIN ASPART SUPPLEMENTAL SCALE SQ SCH ×2 (06:51→11:00)
[2016-09-06 07:18] LABS: AUTOMATED NEUTROPHIL # 8.8 TH/MM3 (1.8-7.7); BASOPHIL # 0.1 TH/MM3 (0-0.2); BASOPHIL % 0.5 % (0.0-2.0); EOSINOPHIL # 0.3 TH/MM3 (0-0.4); EOSINOPHIL % 2.9 % (0.0-4.0); HEMATOCRIT 31.2 % (39.0-51.0); HEMO FLAGS DIFF FINAL; LYMPH % 10.1 % (9.0-44.0); LYMPHOCYTE # 1.1 TH/MM3 (1.0-4.8); MEAN CORPUSCULAR HEMOGLOBIN 27.1 PG (27.0-34.0); MEAN CORPUSCULAR HGB CONC 33.4 % (32.0-36.0); MONO % 8.5 % (0.0-8.0); PLATELET COUNT 263 TH/MM3 (150-450); RED BLOOD COUNT 3.85 MIL/MM3 (4.50-5.90); RED CELL DISTRIBUTION WIDTH 17.3 % (11.6-17.2); WHITE BLOOD COUNT 11.3 TH/MM3 (4.0-11.0)
[2016-09-06 07:28] LABS: ALT (GPT) 15 U/L (12-78); ANION GAP 9 MEQ/L (5-15); AST (GOT) 22 U/L (15-37); BLOOD UREA NITROGEN 41 MG/DL (7-18); CHLORIDE 97 MEQ/L (98-107); GLOMERULAR FILTRATION RATE 47 ML/MIN (>89); SODIUM (NA) 138 MEQ/L (136-145)
[2016-09-06 07:29] LABS: POTASSIUM 4.2 MEQ/L (3.5-5.1)
[2016-09-06 07:31] LABS: ALKALINE PHOSPHATASE 163 U/L (45-117); TOTAL BILIRUBIN ADULT 0.3 MG/DL (0.2-1.0)
[2016-09-06 08:00] VITALS: BP 124/86; PULSE 99; RESP 22; TEMP 97; O2SAT 100
--- NOTE | 2016-09-06 08:11 | PD.ONC.PN ---
Subjective Subjective Remarks Open eyes to command. Objective Data Date Time Temp Pulse Resp B/P Pulse Ox O2 Delivery O2 Flow Rate FiO2 09/06/16 04:00 95.9 80 20 119/85 99 09/06/16 00:00 97.3 102 20 111/81 100 09/05/16 23:26 97 T-piece 8.00 35 09/05/16 23:08 T-Piece 35 09/05/16 23:00 93 09/05/16 20:00 98.2 103 20 104/79 96 09/05/16 15:45 96.3 95 20 130/80 98 09/05/16 15:25 97 09/05/16 11:45 96.1 90 20 122/89 100 09/05/16 11:33 100 T-Piece 35 09/05/16 09:20 T-piece 5.00 35 09/06/16 09/06/16 09/06/16 07:00 15:00 23:00 Output Total 100 ml Balance -100 ml Result Diagram: 09/06/1616 09/06/16 0616 Laboratory Results Laboratory Tests Test 09/06/16 06:16 White Blood Count 11.3 TH/MM3 Red Blood Count 3.85 MIL/MM3 Hemoglobin 10.4 GM/DL Hematocrit 31.2 % Mean Corpuscular Volume 81.0 FL Mean Corpuscular Hemoglobin 27.1 PG Mean Corpuscular Hemoglobin 33.4 % Concent Red Cell Distribution Width 17.3 % Platelet Count 263 TH/MM3 Mean Platelet Volume 7.4 FL Neutrophils (%) (Auto) 78.0 % Lymphocytes (%) (Auto) 10.1 % Monocytes (%) (Auto) 8.5 % Eosinophils (%) (Auto) 2.9 % Basophils (%) (Auto) 0.5 % Neutrophils # (Auto) 8.8 TH/MM3 Lymphocytes # (Auto) 1.1 TH/MM3 Monocytes # (Auto) 1.0 TH/MM3 Eosinophils # (Auto) 0.3 TH/MM3 Basophils # (Auto) 0.1 TH/MM3 CBC Comment DIFF FINAL Differential Comment Sodium Level 138 MEQ/L Potassium Level 4.2 MEQ/L Chloride Level 97 MEQ/L Carbon Dioxide Level 32.0 MEQ/L Anion Gap 9 MEQ/L Blood Urea Nitrogen 41 MG/DL Creatinine 1.51 MG/DL Estimat Glomerular Filtration 47 ML/MIN Rate Random Glucose 148 MG/DL Calcium Level 8.6 MG/DL Total Bilirubin 0.3 MG/DL Aspartate Amino Transf 22 U/L (AST/SGOT) Alanine Aminotransferase 15 U/L (ALT/SGPT) Alkaline Phosphatase 163 U/L Total Protein 6.8 GM/DL Albumin 2.3 GM/DL Culture Results Microbiology Date/Time Procedure Status Source Growth 09/04/16 11:00 Urine Culture - Preliminary Resulted Urine Clean Catch Group D Enterococcus Administered Medications Medications (Trade) Dose Ordered Sig/Estuardo Route PRN Reason Start Time Stop Time Status Last Admin Dose Admin Apixaban (Eliquis) 2.5 mg BID PO 07/25/16 21:00 Hold 08/19/16 21:20 Atorvastatin Calcium (Lipitor) 80 mg HS PO 07/25/16 21:00 09/05/16 22:35 Isosorbide Mononitrate (Imdur) 60 mg HS PO 07/25/16 21:00 Hold 08/19/16 21:19 Sodium Chloride (NS Flush) 2 ml BID IV FLUSH 07/25/16 21:00 09/05/16 22:36 Amlodipine Besylate (Norvasc) 10 mg DAILY PO 07/28/16 09:00 Hold 08/18/16 09:59 Cholecalciferol (Vitamin D3) 2,000 units DAILY PO 07/28/16 09:00 09/05/16 09:25 Mirtazapine (Remeron) 15 mg HS PO 08/03/16 21:00 09/05/16 22:35 Collagenase (Santyl Oint) 1 applic DAILY TOPICAL 08/04/16 14:30 09/05/16 09:00 Calcium Carbonate 500 mg 500 mg Q12HR CHEW 08/12/16 09:00 09/05/16 22:36 Levetriacetam/ Sodium Chloride (Keppra Inj/NS Inj) 105 ml @ 420 mls/hr Q12HR IV 08/20/16 21:00 09/05/16 22:36 Aspirin (Aspirin Chew) 81 mg DAILY G-TUBE 08/21/16 09:00 09/05/16 09:25 Dextrose (D50w (Vial) Inj) 25 ml UNSCH PRN IV PUSH HYPOGLYCEMIA-SEE COMMENTS 08/21/16 09:30 08/28/16 17:08 Furosemide (Lasix Inj) 40 mg BID@09,18 IV PUSH 08/21/16 18:00 09/05/16 17:09 Pantoprazole Sodium (Protonix Inj) 40 mg Q12H IV PUSH 08/22/16 12:15 09/06/16 02:12 Water (Free Water) VOLUME: 300 ML Q4HR G-TUBE 08/23/16 16:00 09/06/16 04:00 Heparin Sodium (Porcine) 5000 units 5,000 units Q12HR SQ 08/28/16 10:00 Hold 09/02/16 07:40 Potassium Chloride (KCl 20 Meq Premix Inj) 100 ml @ 50 mls/hr Q2H PRN IV For Potassium 2.8 - 3.2 mEq/L 08/29/16 04:15 08/29/16 12:38 Potassium Bicarb/ Potassium Chloride 50 meq 50 meq UNSCH PRN PO For Potassium 3.3 - 3.5 mEq/L 08/29/16 04:15 08/29/16 04:22 Sodium Phosphate/ Sodium Chloride (Sodium Phosphate Inj/NS 250 ml Inj) 250 ml @ 42 mls/hr UNSCH PRN IV For Phosphorus < 2.5 mg/dL 08/29/16 04:15 08/29/16 11:13 Ferrous Sulfate (Ferrous Sulfate Liq) 300 mg DAILY PEG 09/01/16 09:00 09/05/16 09:24 Lactulose (Lactulose Liq) 30 ml DAILY PRN PEG CONSTIPATION 09/03/16 15:00 09/03/16 15:27 Nystatin (Mycostatin Cream) 1 applic Q12HR TOPICAL 09/04/16 09:00 09/05/16 22:53 Carvedilol (Coreg) 3.125 mg Q12HR PO 09/04/16 21:00 09/05/16 22:36 Objective Remarks GENERAL: Lethargic. SKIN: Warm and dry. HEAD: Normocephalic. EYES: No scleral icterus. No injection or drainage. NECK: Supple, trachea midline. No JVD or lymphadenopathy. LYMPHATIC: No adenopathy. CARDIOVASCULAR: Regular rate and rhythm without murmurs. RESPIRATORY: Breath sounds equal bilaterally. On T-piece GASTROINTESTINAL: Abdomen soft, non-tender, nondistended. EXTREMITIES: No cyanosis, or edema. MUSCULOSKELETAL: Adequate muscle tone. NEUROLOGICAL: Open eyes to command Assessment/Plan Problem List: (1) Anemia Status: Resolved Plan: -- due anemia of chronic renal disease --08/02--> s/p Procrit 20K units + 1 unit pRBC on 08/02 --08/09-->procrit 20K units --08/16-->Procrit 20K units --08/23-->Procrit 30K units --08/30 Hgb >10, no need for procrit. --09/06 Hgb 10.4 (2) Monoclonal gammopathy Status: Acute Plan: -- Consistent with monoclonal gammopathy of undetermined significance ( MGUS) -- M-spike is 0.26 --Urine RUDY no monoclonal protein. Assessment 61 y/o male who was brought in by [facility] after DCF found him at home unable to care for himself. Plan 1. monitor CBC intermittently 2. No need for procrit this week. Problem Qualifiers (1) Anemia: Qualified Code: D50.8 - Other iron deficiency anemia Andrzej De Los Santos MD September 06, 2016 08:11
[2016-09-06] MEDS: SODIUM CHLORIDE 0.9% FLUSH 10 ML FLUSH IV FLUSH SCH (09:00)
[2016-09-06] MEDS: COLLAGENASE OINT 30 GM TUBE TOPICAL SCH (09:00)
--- NOTE | 2016-09-06 09:07 | HHI.FPPN ---
Subjective Remarks Patient seen and examined this am. No overnight events. Intermittent tachycardia. No fevers. Alert, following commands. Smiling. When restraints loosened yesterday, he attempted to pull out trach. Objective Vitals Vital Signs Date Time Temp Pulse Resp B/P Pulse Ox O2 Delivery O2 Flow Rate FiO2 09/06/16 08:00 97.0 99 22 124/86 100 09/06/16 04:00 95.9 80 20 119/85 99 09/06/16 00:00 97.3 102 20 111/81 100 09/05/16 23:26 97 T-piece 8.00 35 09/05/16 23:08 T-Piece 35 09/05/16 23:00 93 09/05/16 20:00 98.2 103 20 104/79 96 09/05/16 15:45 96.3 95 20 130/80 98 09/05/16 15:25 97 09/05/16 11:45 96.1 90 20 122/89 100 09/05/16 11:33 100 T-Piece 35 09/05/16 09:20 T-piece 5.00 35 I/O 09/05/16 09/05/16 09/05/16 09/06/16 09/06/16 09/06/16 07:00 15:00 23:00 07:00 15:00 23:00 Intake Total 400 ml Output Total 300 ml 1000 ml 100 ml Balance 100 ml -1000 ml -100 ml Other 400 ml Output Urine Total 300 ml 1000 ml 100 ml # Voids 4 # Bowel Movements 0 0 0 Result Diagram: 09/06/16 0616 09/06/16 0616 Imaging Last Impressions Chest X-Ray 09/01/16 0000 Signed Impressions: Service Date/Time: August 10:36 - CONCLUSION: 1. Tracheostomy is now present and no pneumothorax is visualized. 2. Underinflation with atelectasis at the bases. Camacho Culp MD Upper Extremity Ultrasound 08/26/16 0000 Signed Impressions: Service Date/Time: Friday, August 26, 2016 10:34 - CONCLUSION: 1. Deep venous thrombosis in the left brachial vein. 2. Superficial venous thrombosis in the basilic and cephalic veins. Thiago Heredia MD Lower Extremity Ultrasound 08/26/16 0000 Signed Impressions: Service Date/Time: Friday, August 26, 2016 10:12 - CONCLUSION: Negative exam with no evidence of deep venous thrombosis. Thiago Heredia MD Head CT 08/21/16 0000 Signed Impressions: Service Date/Time: Sunday, August 21, 2016 03:47 - CONCLUSION: No acute disease. Daryl Prabhakar Jr., MD Bone Osseous Survey 07/31/16 0000 Signed Impressions: Service Date/Time: Sunday, July 31, 2016 16:09 - CONCLUSION: Unremarkable bone survey. Incidental note made of median sternotomy. Multiple gallstones. Richard Gerber MD Renal Ultrasound 07/25/16 0000 Signed Impressions: Service Date/Time: Monday, July 25, 2016 20:55 - CONCLUSION: 1. Tiny nonobstructing calcified left renal calculi. 2. No hydronephrosis or solid renal mass. Efren Cleaning MD Objective Remarks GENERAL: male laying in bed with tracheostomy. SKIN: Warm and dry. HEENT: Tracks eyes. HEART: RRR no m/r/g. LUNGS: Good air movement. Anterior lung sounds coarse. Trach in place. ABDOMEN:Soft, NT, ND. PEG tube in place. EXTREMITIES: R BKA. LLE without edema. NEURO: Responding to commands. Date of Removal: Aug 23, 2016 Line: Central Venous Catheter Side: Left Location: Femoral A/P Assessment and Plan 61 yo M, hx of prolonged hospital stay from September 2015 - July 18, 2016, having returned to the hospital on July 22 for fall. Admitted for AMS, rhabdomyolysis , dehydration, hypernatremia and anemia. PEG tube has been placed due to decreased PO intake and dehydration. Patient has improved from critical condition due to ischemic cardiac event. Cardiology was consulted, no interventions anticipated. DCF making decisions for patient and palliative care and case management working with communication. Code status cannot be changed per DCF but agreeable to hospice. Awaiting DCF call back for paperwork to be signed to go to hospice. Discharge Planning 09/05:hospice, jayla cruz has signed consents from dcf, they are working on finding someone to sign the dnr, dcf says they can't. Problem List: (1) Myocardial infarction acute Status: Acute Plan: Cardiac arrest s/p CPR with ROSC on 08/20. Troponin as high as >40 and EKG with LBBB. Cardiology consulted and patient in too critical condition for intervention at this time. - 2D echo with diffuse hypokinesis and LVEF 25% - Continue baby ASA - Eliquis held secondary to rectal bleeding -Repeat EKG 09/04/16 due to elevated pulse (2) Respiratory failure Status: Acute Plan: Status post trach 09/01., awake, and alert. (3) DVT (deep venous thrombosis) Status: Acute Plan: DVT and left brachial vein Subcutaneous heparin Monitor for any active GI bleed, and notify GI if any active bleeding noted. (4) Rectal bleeding Status: Resolved Plan: Pt with anemia and acute rectal bleeding was noted. - GI consulted. S/P normal EGD - Protonix 40 mg IV BID - Monitor for active bleeding - H&H stable. Continue to monitor (5) Decubitus ulcer, stage 3 Status: Acute Plan: Patient with large decubitus ulcer over lower back; appears to be healing with good granulation tissue -Wound care consulted, appreciate recommendations * Collagenase ointment to be applied daily * Wound dressing changes daily per RN (6) Anemia Status: Resolved Plan: Hb stable. Per Heme: no need for procrit (09/06) intermittent labs only, MGUS. Likely secondary to chronic disease with GI bleeding. - FOBT + and GI consulted; EGD done 08/26 and was normal - Continue iron supplementation - Continue Protonix - Monitor H&H (7) Iqoqh-yj-geebnui kidney injury Status: Acute Plan: Currently stable. - Nephrology consulted - Avoid nephrotoxic meds - Closely monitor I&O - Renal U/S unremarkable (8) Altered mental status Status: Resolved Plan: Pt likely with recent anoxic brain injury due to decreased brain perfusion secondary to cardiac arrest. He has had multiple ischemic strokes in the past including a lacunar infarct on 10/20/15. At patient's baseline he is able to communicate with yes or no answers. He has also been able to express himself using complete sentences. - CT head 08/21 with no acute disease - EEG showing changes with diffuse encephalopathy (9) Chronic systolic (congestive) heart failure Status: Chronic Plan: Patient with hx of CHF, EF 35% from September 2015. -Echo from 08/20 significant for EF of 20-25% with diffuse hypokinesis. -Lasix 40 mg IV twice a day (10) Coronary artery disease Status: Chronic Plan: Continue statin. Antihypertensives held in light of hypotensive shock. Eliquis held secondary to rectal bleeding. (11) HTN (hypertension) Status: Chronic Plan: Holding home meds in light of hypotension. (12) Low vitamin D level Status: Acute Plan: Vitamin D low at 11.6. -Cholecalciferol 2000 units po Daily -Calcium carbonate 500 mg BID (13) Diabetes mellitus Status: Chronic Plan: A1C 6.9 on 11/25/15, not on oral medications as an outpatient. - Continue to monitor - Low dose SSI (14) UTI (urinary tract infection) Status: Resolved Plan: Repeat Urine culture on 08/18 Pseudomonas aeruginosa, sensitive to cefepime Cefepime 1gm BID (08/19-09/03) --Consider resuming as patient's WBC increased as well as pulse after discontinuation of abx. If patient worsens clinically or develop more symptoms, will restart cefepime * repeat UA * monitor closely as patient will quickly decline (15) Nutrition, metabolism, and development symptoms Status: Acute Plan: - Fluids: Free water via PEG - Electrolytes: Monitor and replete as needed - Nutrition: Jevity tube feeds with goal 1.5 at 60 ml/hr - DVT prophylaxis: Subcutaneous heparin. Monitor for GI bleed. - GI prophylaxis: on PPI Problem Qualifiers (1) DVT (deep venous thrombosis): Qualified Code: I82.622 - Acute deep vein thrombosis (DVT) of brachial vein of left upper extremity (2) Anemia: Qualified Code: D50.8 - Other iron deficiency anemia (3) Altered mental status: Qualified Code: R41.82 - Altered mental status, unspecified altered mental status type (4) Coronary artery disease: Qualified Code: I25.10 - Coronary artery disease involving [place] heart without angina pectoris, unspecified vessel or lesion type (5) HTN (hypertension): Qualified Code: I10 - Essential hypertension (6) Diabetes mellitus: Qualified Code: E11.51 - Type 2 diabetes mellitus with diabetic peripheral angiopathy without gangrene, without long-term current use of insulin Claudette Cheng MD R3 September 06, 2016 09:07
[2016-09-06] MEDS: levETIRAcetam INJ 500 MG in SODIUM CHLORIDE 0.9% INJ 100 ML IV SCH (09:09)
[2016-09-06] MEDS: FERROUS SULFATE 300 MG /5ML UDC PEG SCH (09:09)
[2016-09-06] MEDS: FUROSEMIDE 40 MG/4 ML VIAL IV PUSH SCH (09:10)
[2016-09-06] MEDS: ASPIRIN 81 MG CHEW TAB G-TUBE SCH (09:12)
[2016-09-06] MEDS: CHOLECALCIFEROL (VIT D3) 1000 UNIT TAB PO SCH (09:13)
[2016-09-06] MEDS: CALCIUM CARBONATE 500 MG CHEWABLE TAB CHEW SCH (09:13)
[2016-09-06] MEDS: CARVEDILOL 3.125 MG TAB PO SCH (09:14)
[2016-09-06] MEDS: NYSTATIN 100,000 UNIT/GM CREAM 15 GM TOPICAL SCH (09:17)
[2016-09-06 09:41] VITALS: O2SAT 97
[2016-09-06 11:58] VITALS: PULSE 91
[2016-09-06 12:00] VITALS: BP 128/89; PULSE 95; RESP 20; TEMP 96.9; O2SAT 100
--- NOTE | 2016-10-06 09:55 | HHI.DS ---
Discharge Summary Admission Date Jul 25, 2016 at 18:31 Discharge Date: September 06, 2016 Admitting Diagnosis (1) Myocardial infarction acute Diagnosis: Principal Plan: Cardiac arrest s/p CPR with ROSC on 08/20. Troponin as high as >40 and EKG with LBBB. Cardiology consulted and patient in too critical condition for intervention at this time. - 2D echo with diffuse hypokinesis and LVEF 25% - Continue baby ASA - Eliquis held secondary to rectal bleeding -Repeat EKG 09/04/16 due to elevated pulse (2) Respiratory failure Plan: Status post trach 09/01., awake, and alert. (3) DVT (deep venous thrombosis) Plan: DVT and left brachial vein Subcutaneous heparin Monitor for any active GI bleed, and notify GI if any active bleeding noted. (4) Rectal bleeding Plan: Pt with anemia and acute rectal bleeding was noted. - GI consulted. S/P normal EGD - Protonix 40 mg IV BID - Monitor for active bleeding - H&H stable. Continue to monitor (5) Decubitus ulcer, stage 3 Plan: Patient with large decubitus ulcer over lower back; appears to be healing with good granulation tissue -Wound care consulted, appreciate recommendations * Collagenase ointment to be applied daily * Wound dressing changes daily per RN (6) Anemia Plan: Hb stable. Per Heme: no need for procrit (09/06) intermittent labs only, MGUS. Likely secondary to chronic disease with GI bleeding. - FOBT + and GI consulted; EGD done 08/26 and was normal - Continue iron supplementation - Continue Protonix - Monitor H&H (7) [id number] kidney injury Plan: Currently stable. - Nephrology consulted - Avoid nephrotoxic meds - Closely monitor I&O - Renal U/S unremarkable (8) Altered mental status Plan: Pt likely with recent anoxic brain injury due to decreased brain perfusion secondary to cardiac arrest. He has had multiple ischemic strokes in the past including a lacunar infarct on 10/20/15. At patient's baseline he is able to communicate with yes or no answers. He has also been able to express himself using complete sentences. - CT head 08/21 with no acute disease - EEG showing changes with diffuse encephalopathy (9) Chronic systolic (congestive) heart failure Plan: Patient with hx of CHF, EF 35% from September 2015. -Echo from 08/20 significant for EF of 20-25% with diffuse hypokinesis. -Lasix 40 mg IV twice a day (10) Coronary artery disease Plan: Continue statin. Antihypertensives held in light of hypotensive shock. Eliquis held secondary to rectal bleeding. (11) HTN (hypertension) Plan: Holding home meds in light of hypotension. (12) Low vitamin D level Plan: Vitamin D low at 11.6. -Cholecalciferol 2000 units po Daily -Calcium carbonate 500 mg BID (13) Diabetes mellitus Plan: A1C 6.9 on 11/25/15, not on oral medications as an outpatient. - Continue to monitor - Low dose SSI (14) UTI (urinary tract infection) Plan: Repeat Urine culture on 08/18 Pseudomonas aeruginosa, sensitive to cefepime Cefepime 1gm BID (08/19-09/03) --Consider resuming as patient's WBC increased as well as pulse after discontinuation of abx. If patient worsens clinically or develop more symptoms, will restart cefepime * repeat UA * monitor closely as patient will quickly decline (15) Nutrition, metabolism, and development symptoms Plan: - Fluids: Free water via PEG - Electrolytes: Monitor and replete as needed - Nutrition: Jevity tube feeds with goal 1.5 at 60 ml/hr - DVT prophylaxis: Subcutaneous heparin. Monitor for GI bleed. - GI prophylaxis: on PPI Brief History 61 yo M with AMS. Patient was found at home by DCF earlier today. He was found to be on the ground, lying in his own feces. It was determined that patient was not safe to stay at home alone. EMS brought patient to the hospital. Patient was seen in the ED for fall on 07/22/2016 and it is suspected that he may have been on the ground since discharge. Prior, patient was in the hospital from October 15, 2015 until July 18, 2016. Patient is unable to provide any history, he is nonvocal. History obtained by chart review. Appears that patient was dc'd home with family on 07/18. Nursing in the ED do not have any family contact information but states that she is aware that patient has a sister that is not all there cognitively as far as she is aware. Chart review showing her name/ number: Tigist Amado (sister) [phone], no answer when placed call. Imaging Last Impressions Chest X-Ray 09/01/16 0000 Signed Impressions: Service Date/Time: August 10:36 - CONCLUSION: 1. Tracheostomy is now present and no pneumothorax is visualized. 2. Underinflation with atelectasis at the bases. Camacho Culp MD Upper Extremity Ultrasound 08/26/16 0000 Signed Impressions: Service Date/Time: Friday, August 26, 2016 10:34 - CONCLUSION: 1. Deep venous thrombosis in the left brachial vein. 2. Superficial venous thrombosis in the basilic and cephalic veins. Thiago Heredia MD Lower Extremity Ultrasound 08/26/16 0000 Signed Impressions: Service Date/Time: Friday, August 26, 2016 10:12 - CONCLUSION: Negative exam with no evidence of deep venous thrombosis. Thiago Heredia MD Head CT 08/21/16 0000 Signed Impressions: Service Date/Time: Sunday, August 21, 2016 03:47 - CONCLUSION: No acute disease. Daryl Prabhakar Jr., MD Bone Osseous Survey 07/31/16 0000 Signed Impressions: Service Date/Time: Sunday, July 31, 2016 16:09 - CONCLUSION: Unremarkable bone survey. Incidental note made of median sternotomy. Multiple gallstones. Richard Gerber MD Renal Ultrasound 07/25/16 0000 Signed Impressions: Service Date/Time: Monday, July 25, 2016 20:55 - CONCLUSION: 1. Tiny nonobstructing calcified left renal calculi. 2. No hydronephrosis or solid renal mass. Efren Cleaning MD PE at Discharge GENERAL: male laying in bed with tracheostomy. SKIN: Warm and dry. HEENT: Tracks eyes. HEART: RRR no m/r/g. LUNGS: Good air movement. Anterior lung sounds coarse. Trach in place. ABDOMEN:Soft, NT, ND. PEG tube in place. EXTREMITIES: R BKA. LLE without edema. NEURO: Responding to commands. Hospital Course 61 yo M, hx of prolonged hospital stay from September 2015 - July 18, 2016, having returned to the hospital on July 22 for fall. Admitted for AMS, rhabdomyolysis , dehydration, hypernatremia and anemia. PEG tube has been placed due to decreased PO intake and dehydration. Patient has improved from critical condition due to ischemic cardiac event. Cardiology was consulted, no interventions anticipated. DCF making decisions for patient and palliative care and case management working with communication. Code status cannot be changed per DCF but agreeable to hospice. Patient was discharged on hospice. Pt Condition on Discharge: Stable Discharge Disposition: Hospice/Med Facility Discharge Instructions DIET: Follow Instructions for: Soft Diet, On Tube Feeding Speech Therapy-Diet Recommends: Honey Thickened Liquids, Pureed Additional Diet Instructions: Supplementa 60ml/hr Beneprotein packet 3 times per day: Mix 1-pkt Beneprotein w/2-4oz water, stir until dissolved and administer by syringe through PEG tube. Cesar packet bid for wound healing :mix 1-packet Cesar w/8-10oz water, until dissolved, and administer by syringe through PEG tube. PO diet: Mechanical soft, nectar thick, chopped meat with extra gravy Activities you can perform: Weight Bearing as Walter New Orders: BASIC METABOLIC PROF - 1 Week New Medications: Amlodipine (Norvasc) 10 Mg Tab 10 MG PO DAILY #30 TAB Apixaban (Eliquis) 2.5 Mg Tab 2.5 MG PO BID #60 TAB Atorvastatin (Atorvastatin) 80 Mg Tab 80 MG PO HS #30 TAB Calcium Carbonate (Antacid) (Calcium Carbonate (Antacid)) 500 Mg Chew 500 MG CHEW Q12HR #60 EA Carvedilol (Coreg) 12.5 Mg Tab 25 MG PO BID #30 TAB Cholecalciferol (Vitamin D3) 1,000 Unit Tab 2000 UNITS PO DAILY #60 TAB Collagenase (Santyl) 250 Unit/Gm Oin 1 APPLIC TOPICAL DAILY Days 30 TUBE Ergocalciferol (Drisdol) 50,000 Unit Cap 72827 UNITS PO Q7D #4 CAP Ferrous Sulfate (Ferrous Sulfate) 325 Mg Tab 325 MG PO DAILY@08 #30 TAB Isosorbide Mononitrate ER (Isosorbide Mononitrate ER) 60 Mg Tab 60 MG PO HS #30 TAB Mirtazapine (Mirtazapine) 15 Mg Tab 15 MG PO HS #30 TAB Pantoprazole (Pantoprazole) 40 Mg Tab 40 MG PO DAILY #30 TAB Claudette Cheng MD R3 Oct 06, 2016 09:54
== END 2016-09-06 13:40 | disposition hospice, inpatient (51) | DRG 4 ==
LOC: NEPC 16:13 → NEDA 18:31 → N07B 21:43 → N03B 08-20 07:30 → N05A 09-03 16:03
PROVIDERS: ADMIT Family Medicine; ATTEND Family Medicine
PROC: 30233N1 Transfusion of Nonautologous Red Blood Cells into Peripheral Vein, Percutaneous Approach (ICD-10-PCS; 2016-08-02)
PROC: 0DJD8ZZ Inspection of Lower Intestinal Tract, Via Natural or Artificial Opening Endoscopic (ICD-10-PCS; 2016-08-05)
PROC: 0DB68ZX Excision of Stomach, Via Natural or Artificial Opening Endoscopic, Diagnostic (ICD-10-PCS; 2016-08-05)
PROC: 0DH63UZ Insertion of Feeding Device into Stomach, Percutaneous Approach (ICD-10-PCS; 2016-08-08)
PROC: 04HY32Z Insertion of Monitoring Device into Lower Artery, Percutaneous Approach (ICD-10-PCS; 2016-08-20)
PROC: 06HN33Z Insertion of Infusion Device into Left Femoral Vein, Percutaneous Approach (ICD-10-PCS; 2016-08-20)
PROC: 0BH17EZ Insertion of Endotracheal Airway into Trachea, Via Natural or Artificial Opening (ICD-10-PCS; 2016-08-20)
PROC: 5A1955Z Respiratory Ventilation, Greater than 96 Consecutive Hours (ICD-10-PCS; 2016-08-20)
PROC: 0DJ08ZZ Inspection of Upper Intestinal Tract, Via Natural or Artificial Opening Endoscopic (ICD-10-PCS; 2016-08-26)
PROC: 0B113F4 Bypass Trachea to Cutaneous with Tracheostomy Device, Percutaneous Approach (ICD-10-PCS; principal; 2016-09-01)
PROC: 5A1955Z Respiratory Ventilation, Greater than 96 Consecutive Hours (ICD-10-PCS; 2016-09-01)
PROC: 0BJ08ZZ Inspection of Tracheobronchial Tree, Via Natural or Artificial Opening Endoscopic (ICD-10-PCS; 2016-09-01)
DX: E87.0 Hyperosmolality and hypernatremia (principal); I21.4 Non-ST elevation (NSTEMI) myocardial infarction; R57.9 Shock, unspecified; G93.1 Anoxic brain damage, not elsewhere classified; I47.2 Ventricular tachycardia; N17.9 Acute kidney failure, unspecified; I13.0 Hypertensive heart and chronic kidney disease with heart failure and stage 1 through stage 4 chronic kidney disease, or unspecified chronic kidney disease; K92.2 Gastrointestinal hemorrhage, unspecified; N18.3 Chronic kidney disease, stage 3 (moderate); L89.153 Pressure ulcer of sacral region, stage 3; I46.9 Cardiac arrest, cause unspecified; J96.00 Acute respiratory failure, unspecified whether with hypoxia or hypercapnia; I50.22 Chronic systolic (congestive) heart failure; M62.82 Rhabdomyolysis; N39.0 Urinary tract infection, site not specified; I82.622 Acute embolism and thrombosis of deep veins of left upper extremity; L97.229 Non-pressure chronic ulcer of left calf with unspecified severity; E87.2 Acidosis; D47.2 Monoclonal gammopathy; B96.5 Pseudomonas (aeruginosa) (mallei) (pseudomallei) as the cause of diseases classified elsewhere; E86.0 Dehydration; I25.10 Atherosclerotic heart disease of native coronary artery without angina pectoris; E78.5 Hyperlipidemia, unspecified; D63.1 Anemia in chronic kidney disease; I25.5 Ischemic cardiomyopathy; G47.33 Obstructive sleep apnea (adult) (pediatric); K64.4 Residual hemorrhoidal skin tags; K64.8 Other hemorrhoids; E11.51 Type 2 diabetes mellitus with diabetic peripheral angiopathy without gangrene; E11.22 Type 2 diabetes mellitus with diabetic chronic kidney disease; E11.21 Type 2 diabetes mellitus with diabetic nephropathy; E55.9 Vitamin D deficiency, unspecified; R62.7 Adult failure to thrive; E87.6 Hypokalemia; D72.829 Elevated white blood cell count, unspecified; Z51.5 Encounter for palliative care; K29.70 Gastritis, unspecified, without bleeding; Z95.1 Presence of aortocoronary bypass graft; I87.2 Venous insufficiency (chronic) (peripheral); Z95.5 Presence of coronary angioplasty implant and graft; Z86.73 Personal history of transient ischemic attack (TIA), and cerebral infarction without residual deficits; Z89.511 Acquired absence of right leg below knee; I25.2 Old myocardial infarction; Z75.1 Person awaiting admission to adequate facility elsewhere; Z79.01 Long term (current) use of anticoagulants; Z88.0 Allergy status to penicillin
CPT/HCPCS: 31500; 31600; 31624; 36430; 36556; 36600; 51702; 70450; 71010; 76775; 76937; 77075; 80048; 80053; 80307; 81001; 81050; 82140; 82272; 82306; 82550; 82552; 82607; 82668; 82728; 82746; 82784; 82805; 82948; 83540; 83550; 83605; 83615; 83735; 83883; 83970; 84100; 84132; 84155; 84156; 84165; 84166; 84443; 84484; 85007; 85014; 85018; 85025; 85027; 85044; 85610; 86334; 86335; 86403; 86850; 86900; 86901; 86920; 87040; 87070; 87077; 87086; 87147; 87186; 87205; 88305; 88307; 88312; 92950; 93005; 93306; 93970; 94002; 94003; 94150; 94640; 94664; 95819; 96360; C9113; J0171; J0461; J0690; J0692; J0696; J1265; J1644; J1815; J1940; J1953; J2250; J2997; J3010; J3475; J3480; J7030; J7040; J7050; J7070; P9016; P9045; Q4081